=== PATIENT | female | born 1950 | race Caucasian/White ===

== ENCOUNTER 2017-03-27 14:10 | Inpatient (IN) | payer MEDICARE, OTHER, SELFPAY ==
[2017-03-27] VITALS (13 sets, daily range): BP systolic 98–130; BP diastolic 50–73; PULSE 78–97; RESP 14–20; TEMP 36.1–36.9; O2SAT 87–95; BMI 46.0; BMI 46.5
--- NOTE | 2017-03-27 14:21 | RAD_ITS ---
STUDY: X-RAY CHEST REASON FOR EXAM: Female, 66 years old. Shortness of breath. Edema and palpitations. TECHNIQUE: Single AP portable view of the chest. COMPARISON: Comparison is made with prior examination dated December 14, 2016. FINDINGS: EKG electrodes are seen. Gastric congestion and mild CHF. There is no demonstrated pleural abnormality. There is mild cardiac enlargement. Normal mediastinum and deepthi. Normal visualized pulmonary arteries. There is atherosclerotic calcification of the aortic arch with tortuosity. Normal visualized thoracic spine. Normal visualized ribs, clavicles, and shoulders. There is no demonstrated abnormality of the visualized soft tissue structures of the upper abdomen. RAD/Chest 1 View (Portable) IMPRESSION: Mild CHF and cardiomegaly. Electronically Signed: Jonah Conner MD at 14:52 EST Tel [phone], Service support ,
--- NOTE | 2017-03-27 14:21 | EKG12_ITS ---
Test Reason : SOB Blood Pressure : / mmHG Vent. Rate : 082 BPM Atrial Rate : 082 BPM P-R Int : 138 ms QRS Dur : 142 ms QT Int : 426 ms P-R-T Axes : 067 091 017 degrees QTc Int : 497 ms Normal sinus rhythm Right bundle branch block Abnormal ECG Confirmed by ANJANA GAMBOA, CHOLO ([id number]), loan expeditor MONA NGO ([id number] on 03/29/2017 1:12:47 PM Referred By: UGO Confirmed By:CHOLO YEUNG MD
[2017-03-27] MEDS: Ipratropium/Albuterol Sulfate 3 ML AMPUL.NEB INHALATION ×2 (14:44→20:36)
[2017-03-27 15:25] LABS: Absolute Lymphocyte Count 0.51 X10^3/ul (0.83-4.51); Absolute Neutrophil Count 10.1 X10^3/uL (2.0-7.7); Basophil# 0.03 X10^3/uL; Basophil% 0.3 % (0-1); Eosinophil# 0.24 X10^3/uL; Hematocrit 36.1 % (37-47); Hemoglobin 9.5 g/dl (12.0-15.0); Lymphocyte # 0.51 X10^3/ul (4.0); Lymphocyte % 4.3 % (19-41); Mean Corp Hgb Conc 26.3 g/gl (32-36); Mean Corpuscular Hgb 25.3 pg (27.0-32.0); Mean Platelet Vol. 10.1 fl (6.2-12.0); Monocyte# 0.86 X10^3/uL; Monocyte% 7.3 % (0-10); Neutrophil # 10.13 X10^3/uL (2.7-7.7); Neutrophil % 85.8 % (47-70); Platelet Count 377 K/mm3 (150-450); RBC Distribution Width CV 19.3 % (11.6-14.6); RBC Distribution Width SD 67.6 fl (35.1-43.9); Red Blood Count 3.76 M/mm3 (4.2-5.4); White Blood Count 11.8 K/mm3 (4.4-11.0)
[2017-03-27 15:27] LABS: Anion Gap 4 (5-15); BUN 16 mg/dL (7-18); BUN/Creat Ratio 16.2 RATIO (10-20); Calcium,Total 8.7 mg/dL (8.5-10.1); Chloride 92 mmol/L (98-107); Creatinine, Serum 0.99 mg/dL (0.55-1.02); Differential Indicated SCAN CRITERIA MET; EST Glomerular Filtration Rate 59 mL/min (>60); Est Glom Filt Rate - Afr Amer 72 mL/min (>60); Estimated Creatinine Clearance 44.99 ml/min; Glucose 168 mg/dL (70-110); POSITIVE COUNT NO; POSITIVE DIFFERENTIAL YES; POSITIVE MORPHOLOGY YES; Potassium 3.7 mmol/L (3.5-5.1); Sodium Level 138 mmol/L (136-145)
[2017-03-27 15:42] LABS: Differential Comment SCANNED
--- NOTE | 2017-03-27 16:09 | ED.VISSUMM ---
- ER Visit Summary Date of Service: 03/27/17 Chief Complaint: Shortness of breath with a history of both COPD and CHF History of Present Illness: The patient is a 66 F history of COPD and CHF on 4 L nasal cannula O2 at home. She also has a history of aortic stenosis, ivs-clmwxjy-jljuowzdo diabetes, hypertension, chronic anemia and prior AVM causing GI bleed with multiple transfusions. He denies any fever, significant or new cough. She denies any chest pain or hemoptysis. States she has had worsening shortness of breath over the last 3+ days. Physical Examination: Older female obviously short of breath. Vital signs are stable except for a pulse ox of 87% on a chronic 4 L. She is obviously hypoxic. HEENT exam unremarkable. Neck nontender no JVD. Lungs coarse breath sounds few scattered wheezes. No rhonchi. Equal symmetrical. Prolonged expiratory phase. Heart regular rhythm rate in the 80s with a 4/6 systolic ejection murmur which is chronic from a known history of aortic stenosis. Abdomen is soft and nontender. Normal bowel sounds without any peritoneal signs. She is moving all 4 extremities. She has 1+ pitting edema both lower extremities. Calves are nontender. Neurologically she is awake alert without focal motor deficits. Test Results: Chest x-ray shows cardiomegaly and vascular congestion consistent with CHF. EKG is a sinus rhythm rate 82 no acute process with a right bundle branch block. White count 11.8. H&H 9.5 and 36 which is her baseline chronic anemia. Electrolytes unremarkable with a creatinine is 0.9 and a gap of 4. Troponin 0 0.066 and the BNP is only 81.. Emergency Department Course and Treatment: Patient treated with DuoNeb aerosol and will be given IV Lasix. He is she is clinically stable at 1605. I have already spoken to Dr. Mckeon the hospitalist who will be down to evaluate the patient for admission. Treatment Plan: [] Disposition: Admission Impression: Acute dyspnea secondary exacerbation COPD History of aortic stenosis with hx of CHF History of diabetes Chronic anemia. This note was generated with [employer] dictation software. It may contain incorrect words, spelling, and punctuation that were not noted in review of the chart prior to signing ED Disposition - Plan for ED Patient: Chief Complaint: Shortness of Breath Referrals: Vic Chen MD [Primary Care Provider] -
--- NOTE | 2017-03-27 16:17 | ED.DCSUM_ITS ---
- ER Visit Summary Date of Service: 03/27/17 Chief Complaint: Shortness of breath with a history of both COPD and CHF History of Present Illness: The patient is a 66 F history of COPD and CHF on 4 L nasal cannula O2 at home. She also has a history of aortic stenosis, non- insulin-dependent diabetes, hypertension, chronic anemia and prior AVM causing GI bleed with multiple transfusions. He denies any fever, significant or new cough. She denies any chest pain or hemoptysis. States she has had worsening shortness of breath over the last 3+ days. Physical Examination: Older female obviously short of breath. Vital signs are stable except for a pulse ox of 87% on a chronic 4 L. She is obviously hypoxic. HEENT exam unremarkable. Neck nontender no JVD. Lungs coarse breath sounds few scattered wheezes. No rhonchi. Equal symmetrical. Prolonged expiratory phase. Heart regular rhythm rate in the 80s with a 4/6 systolic ejection murmur which is chronic from a known history of aortic stenosis. Abdomen is soft and nontender. Normal bowel sounds without any peritoneal signs. She is moving all 4 extremities. She has 1+ pitting edema both lower extremities. Calves are nontender. Neurologically she is awake alert without focal motor deficits. Test Results: Chest x-ray shows cardiomegaly and vascular congestion consistent with CHF. EKG is a sinus rhythm rate 82 no acute process with a right bundle branch block. White count 11.8. H&H 9.5 and 36 which is her baseline chronic anemia. Electrolytes unremarkable with a creatinine is 0.9 and a gap of 4. Troponin 0 0.066 and the BNP is only 81.. Emergency Department Course and Treatment: Patient treated with DuoNeb aerosol and will be given IV Lasix. He is she is clinically stable at 1605. I have already spoken to Dr. Mckeon the hospitalist who will be down to evaluate the patient for admission. Treatment Plan: [] Disposition: Admission Impression: Acute dyspnea secondary exacerbation COPD History of aortic stenosis with hx of CHF History of diabetes Chronic anemia. This note was generated with [employer] dictation software. It may contain incorrect words, spelling, and punctuation that were not noted in review of the chart prior to signing ED Disposition - Plan for ED Patient: Chief Complaint: Shortness of Breath Referrals: Vic Chen MD [Primary Care Provider] -
--- NOTE | 2017-03-27 16:31 | PCM.HP.STD ---
Problem List (1) COPD with acute exacerbation Status: Acute (2) Aortic stenosis Status: Chronic Comment: Moderate to severe with valve area 1.1 on cardiac catheterization in 2013 (3) CHF (congestive heart failure) Status: Acute Qualifiers: Congestive heart failure type: diastolic (4) Chronic hypoxemic respiratory failure Status: Chronic (5) Diabetes mellitus type II Status: Chronic (6) HLD (hyperlipidemia) Status: Chronic (7) Hypertension Status: Chronic History of Present Illness Date of Admission: 03/27/17 Chief Complaint: sob The patient is a 66 year old F who presents to the ER from the pulmonary office where she saw the LUCERNE FARMER today as she was feeling more SOB. She reports feeling more SOB and generally unwell for about 3 days. This is severely worse with exertion, for example trying to walk out to her car. She has a hx of diastolic CHF, COPD, chronic hypoxic respiratory failure dependent on 4 lpm at home with BiPAP at night, pulmonary HTN, aortic stenosis, and diabetes. She is very SOB when trying to lay flat. She reports intermittent compliance with BiPAP. She has an occasional cough with clear sputum production. She reports her leg swelling is about what it normally is, and her weight is actually down 8 pounds over the last 3 weeks due to poor appetite and some diarrhea recently. She denies fevers or chills. She denies chest pain, tightness, or pressure. She had some lightheadedness yesterday, and has had palpitations recently. Her area relief pilot is Dr. Dixon, her settlement technician is Dr. Xavier. She reports compliance with her current medication regimen. [] Past Medical History Past Medical History (Chronic Problems): Chronic Problems (Last Reviewed 03/27/17 @ 13:21 by Alejandra Frausto) Nonrheumatic aortic (valve) stenosis (Chronic) Left atrial enlargement (Chronic) Hypersomnia (Chronic) Anemia (Chronic) Palpitations (Chronic) Carotid artery stenosis (Chronic) Lumbago (Chronic) Chronic hypoxemic respiratory failure (Chronic) Pulmonary fibrosis (Chronic) 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 3 severe COPD by GOLD classification (Chronic) Aortic stenosis (Chronic) Moderate to severe with valve area 1.1 on cardiac catheterization in 2013 COPD (Chronic) Diabetes mellitus type II (Chronic) History of GI bleeding (Chronic) Status post EGD and colonoscopy by Dr. Blackmon in 2012, suspected AV malformations Pulmonary hypertension (Chronic) With PA pressures 55 by cardiac catheterization Hypoxemia (Chronic) Hypertension (Chronic) HLD (hyperlipidemia) (Chronic) 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) Allergies No Known Allergies Allergy (Verified 03/27/17 14:13) Home Medications: Ambulatory Orders Medication Instructions Recorded Metformin HCl [Glucophage] 1,000 mg PO BIDCM 01/15/14 Simvastatin [Zocor] 20 mg PO QHS 01/15/14 Ferrous Sulfate 325 mg PO BID 04/09/14 Symbicort 160/4.5 Mcg Inhaler (SP) 2 puff INHALATION BID 12/01/14 Escitalopram Oxalate [Lexapro] 10 mg PO DAILY 06/29/15 Metoprolol Tartrate [Lopressor 50 mg PO BID 06/29/15 (beta lorena)] Trazodone HCl [Desyrel] 100 mg PO QHS PRN PRN 06/29/15 Albuterol Inhaler [Ventolin Hfa] 2 puff INHALATION Q4H PRN PRN #2 10/02/15 inhaler Furosemide [Lasix] 80 mg PO BID 05/27/16 Surgical History: herniorrhaphy, hysterectomy, - Psychiatric History: No pertinent psych hx PLANT PACKER History: No pertinent PLANT PACKER history Lives: Spouse/ Significant Other Smoking Status: Former smoker - quit three months ago Tobacco Use: Non-smoker Alcohol: None Drugs: None - *Family History Paternal Family History: Family History (Last Reviewed 03/27/17 @ 13:21 by Alejandra Frausto) Mother Heart disease Father CAD (coronary artery disease) Hypertension Brother Hypertension History Items: Heart Disease Maternal Family History: Family History (Last Reviewed 03/27/17 @ 13:21 by Alejandra Frausto) Mother Heart disease Father CAD (coronary artery disease) Hypertension Brother Hypertension History Items: Heart Disease Review of Systems Constitutional: Reports: Malaise. Denies: Chills, Fever, Weight Change HEENT: Denies: Head Aches, Sinus Congestion, Sinus Drainage Cardiovascular: Reports: Edema, Light Headedness, Orthopnea, Palpitations. Denies: Chest Pain, Chest Pressure, Chest Tightness, Heaviness Respiratory: Reports: Cough, Shortness of Breath, Shortness of breath at rest, Shortness of breath upon exertion, Sputum production. Denies: Hemoptysis, Pleuritic Pain, Wheezing Gastrointestinal: Reports: Diarrhea. Denies: Abdominal Pain, Nausea, Vomiting Genitourinary: Denies: Dysuria Musculoskeletal: Denies: Joint Pain, Joint Tenderness Skin: Denies: Rash, Wounds Neurological: Denies: Numbness, Tingling, Focal weakness Psychiatric: Denies: Anxiety, Depression, Homicidal Ideations, Suicidal Ideations Hematologic/ Lymphatic: Denies: Easy Bruising, Easy Bleeding VTE Information - Inpt Only VTE Present on Admission: No VTE Mechan Device Prophylaxis: SCD's VTE Pharm Prophylaxis ordered?: Yes Patient Problems: Active and Suspected Problems (Last Reviewed 03/27/17 @ 13:21 by Alejandra Frausto) COPD with acute exacerbation (Acute) - Physical Exam General: Alert, Oriented x3, Cooperative HEENT: Atraumatic, PERRLA, EOMI, Normocephalic Neck: Supple, No JVD, Negative Carotid Bruits Lungs: Diminished - severely diminished, i do not appreciate any adventitious sounds at this time. Cardiovascular: Regular rate, Murmur - 3/6 systolic murmur best heard over the LSB at the 2nd intercostal space Abdomen: Bowel Sounds Present, Soft, Non Tender Extremities: Capillary Refill Less than 3 Seconds, Edema - 2+ pitting edema BLE up to knees. Skin: No rashes, No breakdown Musculoskeletal: No Tenderness to Palpation of Joints or Extremities Neurological: Cranial nerves II-XII grossly intact Psych/Mental Status: Normal Affect, Appropriate Vital Signs Temp Pulse Resp BP Pulse Ox 97 F L 82 18 130/65 H 93 03/27/17 14:11 03/27/17 14:46 03/27/17 14:46 03/27/17 14:11 03/27/17 15:02 Oxygen Flow Rate 4 Oxygen Delivery Method Nasal Cannula Weight: 117.934 kg Body Mass Index (BMI) 46.0 Laboratory Tests Past 24 Hrs 03/27/17 03/27/17 03/27/17 14:55 14:55 14:55 WBC 11.8 H RBC 3.76 L Hgb 9.5 L Hct 36.1 L MCV 96.0 MCH 25.3 L MCHC 26.3 L RDW 19.3 H RDW Differential 67.6 H Plt Count 377 MPV 10.1 Immature Gran % (Auto) 0.300 Neut % (Auto) 85.8 H Lymph % (Auto) 4.3 L [place] % (Auto) 7.3 Eos % (Auto) 2.0 Baso % (Auto) 0.3 Absolute Neuts (auto) 10.1 H Absolute Lymphs (auto) 0.51 L Total Counted Not Reportable Differential Comment SCANNED Sodium 138 Potassium 3.7 Chloride 92 L Carbon Dioxide 42.0 H Anion Gap 4 L BUN 16 Creatinine 0.99 Estim Creat Clear Calc 44.99 Est GFR (MDRD) Af Amer 72 Est GFR (MDRD) Non-Af 59 L BUN/Creatinine Ratio 16.2 Glucose 168 H Calcium 8.7 Troponin I 0.066 H B-Natriuretic Peptide 81.0 Assessment/Plan Active and Suspected Problems (Last Reviewed 03/27/17 @ 13:21 by Alejandra Frausto) COPD with acute exacerbation (Acute) 1. Acute on chronic COPD exacerbation with chronic hypoxic respiratory failure - dependent on 4 lpm. Continue BiPAP at night. Solumedrol. Duonebs. IS. Pulm consult. Mild leukocytosis but I doubt infectious etiology - rare cough with some clear sputum, no fever.. CXR shows CHF/cardiomegaly. She also has underlying pulmonary HTN. 2. Chronic diastolic CHF - BNP normal. She is swollen, will use IV lasix tonight. + Orthopnea. Weight is actually down 8 pounds over last 3 weeks. Last echo 06/2016 with EF 70%, diastolic dysfunction, RVSP 61 mmHg 3. Indeterminate troponin - cycle enzymes, repeat EKG in AM. EKG with NSR and RBBB 4. DMt2 - hold orals and add sliding scale insulin 5. HTN - stable 6. Mod-severe aortic stenosis - follows Dr. Xavier and a surgeon at [facility] for this, has been told she is not ready for surgery. 7. HLD - statin 8. Chronic normocytic anemia - trend. Continue PO iron. 9. Anxiety - trazodone and lexapro DVT ppx: lovenox This patient was seen by Shemar Butcher PA-C under the supervision of Doctor Mckeon.
--- NOTE | 2017-03-27 16:46 | HP.PCM_ITS ---
Addendum entered and electronically signed by KAILASH Ortega 03/27/17 16:53: Code Visit Problem list item #1 Acute Cor pulmonale. Original Note: Problem List (1) COPD with acute exacerbation Status: Acute (2) Aortic stenosis Status: Chronic Comment: Moderate to severe with valve area 1.1 on cardiac catheterization in 2013 (3) CHF (congestive heart failure) Status: Acute Qualifiers: Congestive heart failure type: diastolic (4) Chronic hypoxemic respiratory failure Status: Chronic (5) Diabetes mellitus type II Status: Chronic (6) HLD (hyperlipidemia) Status: Chronic (7) Hypertension Status: Chronic History of Present Illness Date of Admission: 03/27/17 Chief Complaint: sob The patient is a 66 year old F who presents to the ER from the pulmonary office where she saw the SHOT POLISHER AND INSPECTOR today as she was feeling more SOB. She reports feeling more SOB and generally unwell for about 3 days. This is severely worse with exertion, for example trying to walk out to her car. She has a hx of diastolic CHF, COPD, chronic hypoxic respiratory failure dependent on 4 lpm at home with BiPAP at night, pulmonary HTN, aortic stenosis, and diabetes. She is very SOB when trying to lay flat. She reports intermittent compliance with BiPAP. She has an occasional cough with clear sputum production. She reports her leg swelling is about what it normally is, and her weight is actually down 8 pounds over the last 3 weeks due to poor appetite and some diarrhea recently. She denies fevers or chills. She denies chest pain, tightness, or pressure. She had some lightheadedness yesterday, and has had palpitations recently. Her associate trainer is Dr. Dixon, her wine steward is Dr. Xavier. She reports compliance with her current medication regimen. [] Past Medical History Past Medical History (Chronic Problems): Chronic Problems (Last Reviewed 03/27/17 @ 13:21 by Alejandra Frausto) Nonrheumatic aortic (valve) stenosis (Chronic) Left atrial enlargement (Chronic) Hypersomnia (Chronic) Anemia (Chronic) Palpitations (Chronic) Carotid artery stenosis (Chronic) Lumbago (Chronic) Chronic hypoxemic respiratory failure (Chronic) Pulmonary fibrosis (Chronic) 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 3 severe COPD by GOLD classification (Chronic) Aortic stenosis (Chronic) Moderate to severe with valve area 1.1 on cardiac catheterization in 2013 COPD (Chronic) Diabetes mellitus type II (Chronic) History of GI bleeding (Chronic) Status post EGD and colonoscopy by Dr. Blackmon in 2011, suspected AV malformations Pulmonary hypertension (Chronic) With PA pressures 55 by cardiac catheterization Hypoxemia (Chronic) Hypertension (Chronic) HLD (hyperlipidemia) (Chronic) 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) Allergies No Known Allergies Allergy (Verified 03/27/17 14:13) Home Medications: Ambulatory Orders Medication Instructions Recorded Metformin HCl [Glucophage] 1,000 mg PO BIDCM 01/15/14 Simvastatin [Zocor] 20 mg PO QHS 01/15/14 Ferrous Sulfate 325 mg PO BID 04/09/14 Symbicort 160/4.5 Mcg Inhaler (SP) 2 puff INHALATION BID 12/01/14 Escitalopram Oxalate [Lexapro] 10 mg PO DAILY 06/29/15 Metoprolol Tartrate [Lopressor 50 mg PO BID 06/29/15 (beta lorena)] Trazodone HCl [Desyrel] 100 mg PO QHS PRN PRN 06/29/15 Albuterol Inhaler [Ventolin Hfa] 2 puff INHALATION Q4H PRN PRN #2 10/02/15 inhaler Furosemide [Lasix] 80 mg PO BID 05/27/16 Surgical History: herniorrhaphy, hysterectomy, - Psychiatric History: No pertinent psych hx AIR QUALITY TECHNICIAN History: No pertinent AIR QUALITY TECHNICIAN history Lives: Spouse/ Significant Other Smoking Status: Former smoker - quit three months ago Tobacco Use: Non-smoker Alcohol: None Drugs: None - *Family History Paternal Family History: Family History (Last Reviewed 03/27/17 @ 13:21 by Alejandra Frausto) Mother Heart disease Father CAD (coronary artery disease) Hypertension Brother Hypertension History Items: Heart Disease Maternal Family History: Family History (Last Reviewed 03/27/17 @ 13:21 by Alejandra Frausto) Mother Heart disease Father CAD (coronary artery disease) Hypertension Brother Hypertension History Items: Heart Disease Review of Systems Constitutional: Reports: Malaise. Denies: Chills, Fever, Weight Change HEENT: Denies: Head Aches, Sinus Congestion, Sinus Drainage Cardiovascular: Reports: Edema, Light Headedness, Orthopnea, Palpitations. Denies: Chest Pain, Chest Pressure, Chest Tightness, Heaviness Respiratory: Reports: Cough, Shortness of Breath, Shortness of breath at rest, Shortness of breath upon exertion, Sputum production. Denies: Hemoptysis, Pleuritic Pain, Wheezing Gastrointestinal: Reports: Diarrhea. Denies: Abdominal Pain, Nausea, Vomiting Genitourinary: Denies: Dysuria Musculoskeletal: Denies: Joint Pain, Joint Tenderness Skin: Denies: Rash, Wounds Neurological: Denies: Numbness, Tingling, Focal weakness Psychiatric: Denies: Anxiety, Depression, Homicidal Ideations, Suicidal Ideations Hematologic/ Lymphatic: Denies: Easy Bruising, Easy Bleeding VTE Information - Inpt Only VTE Present on Admission: No VTE Mechan Device Prophylaxis: SCD's VTE Pharm Prophylaxis ordered?: Yes Patient Problems: Active and Suspected Problems (Last Reviewed 03/27/17 @ 13:21 by Alejandra Frausto ) COPD with acute exacerbation (Acute) - Physical Exam General: Alert, Oriented x3, Cooperative HEENT: Atraumatic, PERRLA, EOMI, Normocephalic Neck: Supple, No JVD, Negative Carotid Bruits Lungs: Diminished - severely diminished, i do not appreciate any adventitious sounds at this time. Cardiovascular: Regular rate, Murmur - 3/6 systolic murmur best heard over the LSB at the 2nd intercostal space Abdomen: Bowel Sounds Present, Soft, Non Tender Extremities: Capillary Refill Less than 3 Seconds, Edema - 2+ pitting edema BLE up to knees. Skin: No rashes, No breakdown Musculoskeletal: No Tenderness to Palpation of Joints or Extremities Neurological: Cranial nerves II-XII grossly intact Psych/Mental Status: Normal Affect, Appropriate Vital Signs Temp Pulse Resp BP Pulse Ox 97 F L 82 18 130/65 H 93 03/27/17 14:11 03/27/17 14:46 03/27/17 14:46 03/27/17 14:11 03/27/17 15:02 Oxygen Flow Rate 4 Oxygen Delivery Method Nasal Cannula Weight: 117.934 kg Body Mass Index (BMI) 46.0 Laboratory Tests Past 24 Hrs 03/27/17 03/27/17 03/27/17 14:55 14:55 14:55 WBC 11.8 H RBC 3.76 L Hgb 9.5 L Hct 36.1 L MCV 96.0 MCH 25.3 L MCHC 26.3 L RDW 19.3 H RDW Differential 67.6 H Plt Count 377 MPV 10.1 Immature Gran % (Auto) 0.300 Neut % (Auto) 85.8 H Lymph % (Auto) 4.3 L [place] % (Auto) 7.3 Eos % (Auto) 2.0 Baso % (Auto) 0.3 Absolute Neuts (auto) 10.1 H Absolute Lymphs (auto) 0.51 L Total Counted Not Reportable Differential Comment SCANNED Sodium 138 Potassium 3.7 Chloride 92 L Carbon Dioxide 42.0 H Anion Gap 4 L BUN 16 Creatinine 0.99 Estim Creat Clear Calc 44.99 Est GFR (MDRD) Af Amer 72 Est GFR (MDRD) Non-Af 59 L BUN/Creatinine Ratio 16.2 Glucose 168 H Calcium 8.7 Troponin I 0.066 H B-Natriuretic Peptide 81.0 Assessment/Plan Active and Suspected Problems (Last Reviewed 03/27/17 @ 13:21 by Alejandra Frausto ) COPD with acute exacerbation (Acute) 1. Acute on chronic COPD exacerbation with chronic hypoxic respiratory failure - dependent on 4 lpm. Continue BiPAP at night. Solumedrol. Duonebs. IS. Pulm consult. Mild leukocytosis but I doubt infectious etiology - rare cough with some clear sputum, no fever.. CXR shows CHF/cardiomegaly. She also has underlying pulmonary HTN. 2. Chronic diastolic CHF - BNP normal. She is swollen, will use IV lasix tonight. + Orthopnea. Weight is actually down 8 pounds over last 3 weeks. Last echo 06/2016 with EF 70%, diastolic dysfunction, RVSP 61 mmHg 3. Indeterminate troponin - cycle enzymes, repeat EKG in AM. EKG with NSR and RBBB 4. DMt2 - hold orals and add sliding scale insulin 5. HTN - stable 6. Mod-severe aortic stenosis - follows Dr. Xavier and a surgeon at [facility] for this, has been told she is not ready for surgery. 7. HLD - statin 8. Chronic normocytic anemia - trend. Continue PO iron. 9. Anxiety - trazodone and lexapro DVT ppx: lovenox This patient was seen by Shemar Butcher PA-C under the supervision of Doctor Mckeon.
[2017-03-27] MEDS: Furosemide 40 MG/4 ML Vial IV (18:34)
[2017-03-27] MEDS: metFORMIN HCl 1,000 MG Tablet 1000 MG PO (18:34)
[2017-03-27] MEDS: Metoprolol Tartrate 50 MG Tablet PO (22:39)
[2017-03-27] MEDS: Ferrous Sulfate 325 MG Tablet PO (22:41)
[2017-03-27] MEDS: Heparin Injection 5,000 UNITS/ML Syringe 5000 UNITS SC (22:41)
[2017-03-27] MEDS: Atorvastatin Calcium 10 MG Tablet PO (22:42)
[2017-03-27 22:56] LABS: Bedside Glucose 192 mg/dL (70-110)
[2017-03-28] VITALS (19 sets, daily range): BP systolic 114–126; BP diastolic 50–59; PULSE 74–93; RESP 16–21; TEMP 36.5–37.1; O2SAT 85–93
[2017-03-28] MEDS: Heparin Injection 5,000 UNITS/ML Syringe 5000 UNITS SC ×3 (06:33→21:22)
[2017-03-28 06:46] LABS: Bedside Glucose 210 mg/dL (70-110)
[2017-03-28] MEDS: Ipratropium/Albuterol Sulfate 3 ML AMPUL.NEB INHALATION ×4 (06:54→19:02)
[2017-03-28 07:07] LABS: Anion Gap 6 (5-15); BUN 22 mg/dL (7-18); BUN/Creat Ratio 21.6 RATIO (10-20); Calcium,Total 8.7 mg/dL (8.5-10.1); Chloride 92 mmol/L (98-107); Creatinine, Serum 1.02 mg/dL (0.55-1.02); EST Glomerular Filtration Rate 57 mL/min (>60); Est Glom Filt Rate - Afr Amer 69 mL/min (>60); Estimated Creatinine Clearance 41.75 ml/min; Glucose 225 mg/dL (70-110); Potassium 4.7 mmol/L (3.5-5.1); Sodium Level 136 mmol/L (136-145)
[2017-03-28] MEDS: Ferrous Sulfate 325 MG Tablet PO ×2 (08:43→17:17)
[2017-03-28] MEDS: metFORMIN HCl 1,000 MG Tablet 1000 MG PO ×2 (08:43→17:17)
--- NOTE | 2017-03-28 10:12 | PCM.CONS.GEN ---
Problem List (1) Acute on chronic respiratory failure with hypoxia and hypercapnia Status: Acute (2) Pulmonary fibrosis Status: Chronic (3) Pulmonary hypertension Status: Chronic Comment: With PA pressures 55 by cardiac catheterization (4) Nonrheumatic aortic (valve) stenosis Status: Chronic (5) Left atrial enlargement Status: Chronic (6) Hypersomnia Status: Chronic (7) Anemia Status: Chronic (8) CVA (cerebral vascular accident) Status: Acute (9) Carotid artery stenosis Status: Chronic (10) Lumbago Status: Chronic (11) Chronic hypoxemic respiratory failure Status: Chronic (12) Tobacco dependence in remission Status: Chronic (13) Aortic stenosis Status: Chronic Comment: Moderate to severe with valve area 1.1 on cardiac catheterization in 2013 (14) COPD Status: Chronic (15) Diabetes mellitus type II Status: Chronic (16) CHF (congestive heart failure) Status: Acute Qualifiers: Congestive heart failure type: diastolic (17) Hypertension Status: Chronic (18) HLD (hyperlipidemia) Status: Chronic (19) GI AVM (gastrointestinal arteriovenous vascular malformation) Status: Chronic Reason for Consult Date of Consultation: 03/28/17 Reason for Consultation: COPD exacerbation History of Present Illness: The patient is a 66 year old F with a past medical history as below who was seen in the pulmonary clinic for her 6 week follow-up visit by Angeline Acosta NP, with complaints of dyspnea and general ill-feeling for a few days. Patient complained of her BiPAP alarm going off constantly the night before her OV. She complained of dyspnea on exertion, chest tightness, palpitations, rhinorrhea with clear drainage, and nasal congestion. She also complained of increased lower extremity edema and difficulty in getting her shoes on. She takes 40 mg of Lasix twice daily. She was saturating 81-89% on 4 L of oxygen, which is her baseline oxygen requirements. Was discussed possibly treating her at home for COPD exacerbation, however patient was very unsure about this and wanted to be admitted to the hospital. The patient does have a history of aortic stenosis and is being evaluated for repair. She follows with Dr. Xavier and a surgeon in [place]. Workup in the emergency room included a chest x-ray which showed mild CHF and cardiomegaly but no pleural abnormality. Initial lab work showed a mild leukocytosis of 11,800, hemoglobin 9.5 which is her baseline. Neutrophils were 85% and lymphocytes 4.3%. Chloride 92 and serum bicarb 42.0. Glucose was 168 and troponin was indeterminate. BNP was normal at 81. Vital signs were BP 130/65, pulse 82, RR 14, 87% on 4 L, afebrile at 97.0?F. EKG showed sinus rhythm with a rate of 82 bpm, right bundle branch block which was not new. Patient was given a DuoNeb aerosol and IV Lasix. Patient's only complaint on the day of consultation was dyspnea on exertion and palpitations. Patient states she feels fine when she is just sitting in the chair, however feels like she cannot do anything without becoming very short of breath. She is frustrated and is unable to leave her home very often anymore. Patient reports there has been discussion about fixing her aortic valve/stenosis, but her doctors do not feel she is stable enough at this time to do so. Her upper respiratory symptoms such as rhinorrhea has resolved. Denies any increase in cough or sputum production. Past Medical History Past Medical History (Chronic Problems): Chronic Problems (Last Reviewed 03/27/17 @ 13:21 by Alejandra Frausto) Nonrheumatic aortic (valve) stenosis (Chronic) Left atrial enlargement (Chronic) Hypersomnia (Chronic) Anemia (Chronic) Palpitations (Chronic) Carotid artery stenosis (Chronic) Lumbago (Chronic) Chronic hypoxemic respiratory failure (Chronic) Pulmonary fibrosis (Chronic) 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 3 severe COPD by GOLD classification (Chronic) Aortic stenosis (Chronic) Moderate to severe with valve area 1.1 on cardiac catheterization in 2013 COPD (Chronic) Diabetes mellitus type II (Chronic) History of GI bleeding (Chronic) Status post EGD and colonoscopy by Dr. Blackmon in 2011, suspected AV malformations Pulmonary hypertension (Chronic) With PA pressures 55 by cardiac catheterization Hypoxemia (Chronic) Hypertension (Chronic) HLD (hyperlipidemia) (Chronic) 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) Allergies No Known Allergies Allergy (Verified 03/27/17 14:13) Home Medications: Ambulatory Orders Medication Instructions Recorded Metformin HCl [Glucophage] 1,000 mg PO BIDCM 01/15/14 Simvastatin [Zocor] 20 mg PO QHS 01/15/14 Ferrous Sulfate 325 mg PO BID 04/09/14 Escitalopram Oxalate [Lexapro] 10 mg PO DAILY 06/29/15 Metoprolol Tartrate [Lopressor 50 mg PO BID 06/29/15 (beta lorena)] Trazodone HCl [Desyrel] 100 mg PO QHS PRN PRN 06/29/15 Albuterol Inhaler [Ventolin Hfa] 2 puff INHALATION Q4H PRN PRN #2 10/02/15 inhaler Furosemide [Lasix] 80 mg PO BID 05/27/16 Budesonide/Formoterol Fumarate 2 puff IH BID 03/27/17 [Symbicort 160-4.5 Mcg Inhaler] Surgical History: herniorrhaphy, hysterectomy, - Psychiatric History: No pertinent psych hx MEDICAL DOCTOR History: No pertinent MEDICAL DOCTOR history Lives: Spouse/ Significant Other Smoking Status: Former smoker Tobacco Use: Non-smoker Alcohol: None Drugs: None - *Family History Paternal Family History: Family History (Last Reviewed 03/27/17 @ 13:21 by Alejandra Frausto) Mother Heart disease Father CAD (coronary artery disease) Hypertension Brother Hypertension History Items: Heart Disease Maternal Family History: Family History (Last Reviewed 03/27/17 @ 13:21 by Alejandra Frausto) Mother Heart disease Father CAD (coronary artery disease) Hypertension Brother Hypertension History Items: Heart Disease Review of Systems Constitutional: Reports: Fatigue. Denies: Anorexia, Chills, Fever, Night Sweats, Malaise, Weakness HEENT: Reports: Post Nasal Drip, - - Rhinorrhea resolved. Phlegm in my throat. Denies: Difficulty Swallowing, Head Aches, Nasal Congestion, Sinus Congestion, Sinus Drainage, Sore Throat Cardiovascular: Reports: Edema, Orthopnea, Palpitations. Denies: Chest Pain, Chest Pressure, Light Headedness, Paroxysmal Noc. Dyspnea, Syncope Respiratory: Reports: Cough, Shortness of breath upon exertion, Sputum production - Minimal. Denies: Hemoptysis, Shortness of breath at rest, Wheezing Gastrointestinal: Denies: Abdominal Pain, Constipation, Diarrhea, Dyspepsia, Hematemesis, Hematochezia, Nausea, Melena, Vomiting Genitourinary: Denies: Dysuria, Frequency, Hematuria, Retention Musculoskeletal: Denies: Back Pain, Muscle pain Skin: Denies: Dryness, Rash, Wounds Neurological: Denies: Balance problems, Change in Speech, Confusion, Difficulty swallowing, Focal weakness, Numbness, Tingling, Tremor, Seizures Psychiatric: Reports: Anxiety. Denies: Depression Endocrine: Denies: Change in Body Habitus, Polydipsia, Polyuria Hematologic/ Lymphatic: Reports: Anemia, Easy Bruising, Easy Bleeding. Denies: Adenopathy, Hx of blood clot Patient Problems: Active and Suspected Problems (Last Reviewed 03/27/17 @ 13:21 by Alejandra Frausto) COPD with acute exacerbation (Acute) Subjective: Patient was seen and examined. She is sitting up in the chair in no acute distress. Reports she is feeling better, however dyspnea on exertion persists. She blames it on her palpitations with activity. She voices frustration over her activity intolerance. States her concentrator only goes up to 4 L and believe she needs more with activity at home. She checks her pulse oximetry at home. Objective: Clinical Impression(s) from Imaging Studies Chest X-Ray 03/27/17 14:21 IMPRESSION: Mild CHF and cardiomegaly. Electronically Signed: Jonah Conner MD at 14:52 EST Tel [phone], Service support , - Physical Exam General: Alert, Oriented x3, Cooperative, No apparent distress, Well developed, Well nourished, - - No conversational dyspnea HEENT: Atraumatic, Normocephalic Oral: Moist Mucosa, No Gingival or Mucosal Lesions/ Ulcerations Neck: Supple, No Nodes, Trachea Midline Lungs: No rhonchi, No rales, Diminished, - - Faint expiratory wheeze Cardiovascular: Regular rate, Regular Rhythm, Normal S1, Normal S2, Murmur - AYUSH, No rub noted, No Gallop Abdomen: Bowel Sounds Present, Soft, Non Tender, Non-Distended, Obese Extremities: No cyanosis, No Calf Tenderness, Edema - 2-3+ LE Skin: No rashes, No breakdown Musculoskeletal: No Tenderness to Palpation of Joints or Extremities Lymphatic: No Cervical, Supraclavicular, or Inguinal Adenopathy Neurological: Cranial nerves II-XII grossly intact, Neuro grossly intact, Motor Exam 5/5 strength throughout Psych/Mental Status: Alert and oriented to time, place, person, mood and affect Vital Signs Temp Pulse Resp BP Pulse Ox 97.7 F L 88 16 126/57 H 93 03/28/17 03:53 03/28/17 07:00 03/28/17 08:00 03/28/17 03:53 03/28/17 07:28 Oxygen Flow Rate 4 Oxygen Delivery Method Nasal Cannula Weight: 260 lb 2.327 oz Body Mass Index (BMI) 46.5 Intake and Output for Last 24 Hours 03/26/17 03/27/17 03/28/17 23:59 23:59 23:59 Intake Total 705 / 705 Balance 705 / 705 Laboratory Tests Past 24 Hrs 03/27/17 03/28/17 18:39 06:05 Sodium 136 Potassium 4.7 Chloride 92 L Carbon Dioxide 38.0 H Anion Gap 6 BUN 22 H Creatinine 1.02 Estim Creat Clear Calc 41.75 Est GFR (MDRD) Af Amer 69 Est GFR (MDRD) Non-Af 57 L BUN/Creatinine Ratio 21.6 H Glucose 225 H Calcium 8.7 Troponin I 0.057 H POC Glucose 03/28/17 03/27/17 06:40 22:39 POC Glucose 210 H 192 H Assessment/Plan Active and Suspected Problems (Last Reviewed 03/27/17 @ 13:21 by Alejandra Frausto) COPD with acute exacerbation (Acute) RECOMMENDATIONS 1. Wean oxygen supplementation to keep saturations 88-92%. 2. Encourage incentive spirometer 3. Increase activity as tolerated 4. Continue aerosols 5. Continue oral steroids 6. Ambulatory pulse oximetry today 7. Patient can follow-up in pulmonary clinic in 2 weeks IMPRESSIONS 1. Acute on chronic hypoxic and hypercapnic respiratory failure Patient has baseline oxygen requirement of 4 L per nasal cannula. She is complaining of worsening dyspnea on exertion and palpitations, orthopnea. Her concentrator only goes up to 4 L at home. She voices frustration over her poor activity tolerance. She checks her pulse oximetry and desaturates with any exertion on her 4 L. Chest x-ray was read as mild CHF, BNP was normal. Suspect cor pulmonale, patient had improvement after IV Lasix. Patient does have pulmonary hypertension and diastolic CHF, however does not appear to be an exacerbation at this time. She has moderate to severe aortic stenosis which complicates her course. She feels she is at her baseline overall. Recommend obtaining ambulatory pulse oximetry as I suspect patient has increased oxygen needs with exertion. Her concentrator will need to be changed to higher flow on discharge through her DME if this is the case. 2. COPD exacerbation Suspect this is not a COPD exacerbation, but more related to cor pulmonale. Does not appear to be infectious, afebrile. She is on oral steroids, can resume taper upon discharge. She is on her baseline of 4 L. See #1. 3. Moderate to severe aortic stenosis/hypertension/DM/chronic diastolic CHF/hyperlipidemia/anemia/anxiety Locates care, management, recovery, and prognosis. Management per hospitalist, okay to continue home meds. Patient likely okay to be discharged later today after ambulatory pulse ox. Thank you for the opportunity to participate in this patient's care, please do not hesitate to contact us with any further questions or concerns. This note was generated with [employer] dictation software. It may contain incorrect words, spelling, and punctuation that were not noted in checking the note before signing.
--- NOTE | 2017-03-28 10:26 | CON.PCM_ITS ---
Problem List (1) Acute on chronic respiratory failure with hypoxia and hypercapnia Status: Acute (2) Pulmonary fibrosis Status: Chronic (3) Pulmonary hypertension Status: Chronic Comment: With PA pressures 55 by cardiac catheterization (4) Nonrheumatic aortic (valve) stenosis Status: Chronic (5) Left atrial enlargement Status: Chronic (6) Hypersomnia Status: Chronic (7) Anemia Status: Chronic (8) CVA (cerebral vascular accident) Status: Acute (9) Carotid artery stenosis Status: Chronic (10) Lumbago Status: Chronic (11) Chronic hypoxemic respiratory failure Status: Chronic (12) Tobacco dependence in remission Status: Chronic (13) Aortic stenosis Status: Chronic Comment: Moderate to severe with valve area 1.1 on cardiac catheterization in 2013 (14) COPD Status: Chronic (15) Diabetes mellitus type II Status: Chronic (16) CHF (congestive heart failure) Status: Acute Qualifiers: Congestive heart failure type: diastolic (17) Hypertension Status: Chronic (18) HLD (hyperlipidemia) Status: Chronic (19) GI AVM (gastrointestinal arteriovenous vascular malformation) Status: Chronic Reason for Consult Date of Consultation: 03/28/17 Reason for Consultation: COPD exacerbation History of Present Illness: The patient is a 66 year old F with a past medical history as below who was seen in the pulmonary clinic for her 6 week follow-up visit by Angeline Acosta NP, with complaints of dyspnea and general ill-feeling for a few days. Patient complained of her BiPAP alarm going off constantly the night before her OV. She complained of dyspnea on exertion, chest tightness, palpitations, rhinorrhea with clear drainage, and nasal congestion. She also complained of increased lower extremity edema and difficulty in getting her shoes on. She takes 40 mg of Lasix twice daily. She was saturating 81-89% on 4 L of oxygen, which is her baseline oxygen requirements. Was discussed possibly treating her at home for COPD exacerbation, however patient was very unsure about this and wanted to be admitted to the hospital. The patient does have a history of aortic stenosis and is being evaluated for repair. She follows with Dr. Xavier and a surgeon in [place]. Workup in the emergency room included a chest x-ray which showed mild CHF and cardiomegaly but no pleural abnormality. Initial lab work showed a mild leukocytosis of 11,800, hemoglobin 9.5 which is her baseline. Neutrophils were 85% and lymphocytes 4.3%. Chloride 92 and serum bicarb 42.0. Glucose was 168 and troponin was indeterminate. BNP was normal at 81. Vital signs were BP 130/ 65, pulse 82, RR 14, 87% on 4 L, afebrile at 97.0?F. EKG showed sinus rhythm with a rate of 82 bpm, right bundle branch block which was not new. Patient was given a DuoNeb aerosol and IV Lasix. Patient's only complaint on the day of consultation was dyspnea on exertion and palpitations. Patient states she feels fine when she is just sitting in the chair, however feels like she cannot do anything without becoming very short of breath. She is frustrated and is unable to leave her home very often anymore. Patient reports there has been discussion about fixing her aortic valve/stenosis , but her doctors do not feel she is stable enough at this time to do so. Her upper respiratory symptoms such as rhinorrhea has resolved. Denies any increase in cough or sputum production. Past Medical History Past Medical History (Chronic Problems): Chronic Problems (Last Reviewed 03/27/17 @ 13:21 by Alejandra Frausto) Nonrheumatic aortic (valve) stenosis (Chronic) Left atrial enlargement (Chronic) Hypersomnia (Chronic) Anemia (Chronic) Palpitations (Chronic) Carotid artery stenosis (Chronic) Lumbago (Chronic) Chronic hypoxemic respiratory failure (Chronic) Pulmonary fibrosis (Chronic) 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 3 severe COPD by GOLD classification (Chronic) Aortic stenosis (Chronic) Moderate to severe with valve area 1.1 on cardiac catheterization in 2013 COPD (Chronic) Diabetes mellitus type II (Chronic) History of GI bleeding (Chronic) Status post EGD and colonoscopy by Dr. Blackmon in 2011, suspected AV malformations Pulmonary hypertension (Chronic) With PA pressures 55 by cardiac catheterization Hypoxemia (Chronic) Hypertension (Chronic) HLD (hyperlipidemia) (Chronic) 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) Allergies No Known Allergies Allergy (Verified 03/27/17 14:13) Home Medications: Ambulatory Orders Medication Instructions Recorded Metformin HCl [Glucophage] 1,000 mg PO BIDCM 01/15/14 Simvastatin [Zocor] 20 mg PO QHS 01/15/14 Ferrous Sulfate 325 mg PO BID 04/09/14 Escitalopram Oxalate [Lexapro] 10 mg PO DAILY 06/29/15 Metoprolol Tartrate [Lopressor 50 mg PO BID 06/29/15 (beta lorena)] Trazodone HCl [Desyrel] 100 mg PO QHS PRN PRN 06/29/15 Albuterol Inhaler [Ventolin Hfa] 2 puff INHALATION Q4H PRN PRN #2 10/02/15 inhaler Furosemide [Lasix] 80 mg PO BID 05/27/16 Budesonide/Formoterol Fumarate 2 puff IH BID 03/27/17 [Symbicort 160-4.5 Mcg Inhaler] Surgical History: herniorrhaphy, hysterectomy, - Psychiatric History: No pertinent psych hx 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 Lives: Spouse/ Significant Other Smoking Status: Former smoker Tobacco Use: Non-smoker Alcohol: None Drugs: None - *Family History Paternal Family History: Family History (Last Reviewed 03/27/17 @ 13:21 by Alejandra Frausto) Mother Heart disease Father CAD (coronary artery disease) Hypertension Brother Hypertension History Items: Heart Disease Maternal Family History: Family History (Last Reviewed 03/27/17 @ 13:21 by Alejandra Frausto) Mother Heart disease Father CAD (coronary artery disease) Hypertension Brother Hypertension History Items: Heart Disease Review of Systems Constitutional: Reports: Fatigue. Denies: Anorexia, Chills, Fever, Night Sweats , Malaise, Weakness HEENT: Reports: Post Nasal Drip, - - Rhinorrhea resolved. Phlegm in my throat . Denies: Difficulty Swallowing, Head Aches, Nasal Congestion, Sinus Congestion, Sinus Drainage, Sore Throat Cardiovascular: Reports: Edema, Orthopnea, Palpitations. Denies: Chest Pain, Chest Pressure, Light Headedness, Paroxysmal Noc. Dyspnea, Syncope Respiratory: Reports: Cough, Shortness of breath upon exertion, Sputum production - Minimal. Denies: Hemoptysis, Shortness of breath at rest, Wheezing Gastrointestinal: Denies: Abdominal Pain, Constipation, Diarrhea, Dyspepsia, Hematemesis, Hematochezia, Nausea, Melena, Vomiting Genitourinary: Denies: Dysuria, Frequency, Hematuria, Retention Musculoskeletal: Denies: Back Pain, Muscle pain Skin: Denies: Dryness, Rash, Wounds Neurological: Denies: Balance problems, Change in Speech, Confusion, Difficulty swallowing, Focal weakness, Numbness, Tingling, Tremor, Seizures Psychiatric: Reports: Anxiety. Denies: Depression Endocrine: Denies: Change in Body Habitus, Polydipsia, Polyuria Hematologic/ Lymphatic: Reports: Anemia, Easy Bruising, Easy Bleeding. Denies: Adenopathy, Hx of blood clot Patient Problems: Active and Suspected Problems (Last Reviewed 03/27/17 @ 13:21 by Alejandra Frausto ) COPD with acute exacerbation (Acute) Subjective: Patient was seen and examined. She is sitting up in the chair in no acute distress. Reports she is feeling better, however dyspnea on exertion persists. She blames it on her palpitations with activity. She voices frustration over her activity intolerance. States her concentrator only goes up to 4 L and believe she needs more with activity at home. She checks her pulse oximetry at home. Objective: Clinical Impression(s) from Imaging Studies Chest X-Ray 03/27/17 14:21 IMPRESSION: Mild CHF and cardiomegaly. Electronically Signed: Jonah Conner MD at 14:52 EST Tel [phone], Service support , - Physical Exam General: Alert, Oriented x3, Cooperative, No apparent distress, Well developed, Well nourished, - - No conversational dyspnea HEENT: Atraumatic, Normocephalic Oral: Moist Mucosa, No Gingival or Mucosal Lesions/ Ulcerations Neck: Supple, No Nodes, Trachea Midline Lungs: No rhonchi, No rales, Diminished, - - Faint expiratory wheeze Cardiovascular: Regular rate, Regular Rhythm, Normal S1, Normal S2, Murmur - AYUSH , No rub noted, No Gallop Abdomen: Bowel Sounds Present, Soft, Non Tender, Non-Distended, Obese Extremities: No cyanosis, No Calf Tenderness, Edema - 2-3+ LE Skin: No rashes, No breakdown Musculoskeletal: No Tenderness to Palpation of Joints or Extremities Lymphatic: No Cervical, Supraclavicular, or Inguinal Adenopathy Neurological: Cranial nerves II-XII grossly intact, Neuro grossly intact, Motor Exam 5/5 strength throughout Psych/Mental Status: Alert and oriented to time, place, person, mood and affect Vital Signs Temp Pulse Resp BP Pulse Ox 97.7 F L 88 16 126/57 H 93 03/28/17 03:53 03/28/17 07:00 03/28/17 08:00 03/28/17 03:53 03/28/17 07:28 Oxygen Flow Rate 4 Oxygen Delivery Method Nasal Cannula Weight: 260 lb 2.327 oz Body Mass Index (BMI) 46.5 Intake and Output for Last 24 Hours 03/26/17 03/27/17 03/28/17 23:59 23:59 23:59 Intake Total 705 / 705 Balance 705 / 705 Laboratory Tests Past 24 Hrs 03/27/17 03/28/17 18:39 06:05 Sodium 136 Potassium 4.7 Chloride 92 L Carbon Dioxide 38.0 H Anion Gap 6 BUN 22 H Creatinine 1.02 Estim Creat Clear Calc 41.75 Est GFR (MDRD) Af Amer 69 Est GFR (MDRD) Non-Af 57 L BUN/Creatinine Ratio 21.6 H Glucose 225 H Calcium 8.7 Troponin I 0.057 H POC Glucose 03/28/17 03/27/17 06:40 22:39 POC Glucose 210 H 192 H Assessment/Plan Active and Suspected Problems (Last Reviewed 03/27/17 @ 13:21 by Alejandra Frausto ) COPD with acute exacerbation (Acute) RECOMMENDATIONS 1. Wean oxygen supplementation to keep saturations 88-92%. 2. Encourage incentive spirometer 3. Increase activity as tolerated 4. Continue aerosols 5. Continue oral steroids 6. Ambulatory pulse oximetry today 7. Patient can follow-up in pulmonary clinic in 2 weeks IMPRESSIONS 1. Acute on chronic hypoxic and hypercapnic respiratory failure Patient has baseline oxygen requirement of 4 L per nasal cannula. She is complaining of worsening dyspnea on exertion and palpitations, orthopnea. Her concentrator only goes up to 4 L at home. She voices frustration over her poor activity tolerance. She checks her pulse oximetry and desaturates with any exertion on her 4 L. Chest x-ray was read as mild CHF, BNP was normal. Suspect cor pulmonale, patient had improvement after IV Lasix. Patient does have pulmonary hypertension and diastolic CHF, however does not appear to be an exacerbation at this time. She has moderate to severe aortic stenosis which complicates her course. She feels she is at her baseline overall. Recommend obtaining ambulatory pulse oximetry as I suspect patient has increased oxygen needs with exertion. Her concentrator will need to be changed to higher flow on discharge through her DME if this is the case. 2. COPD exacerbation Suspect this is not a COPD exacerbation, but more related to cor pulmonale. Does not appear to be infectious, afebrile. She is on oral steroids, can resume taper upon discharge. She is on her baseline of 4 L. See #1. 3. Moderate to severe aortic stenosis/hypertension/DM/chronic diastolic CHF/ hyperlipidemia/anemia/anxiety Locates care, management, recovery, and prognosis. Management per hospitalist, okay to continue home meds. Patient likely okay to be discharged later today after ambulatory pulse ox. Thank you for the opportunity to participate in this patient's care, please do not hesitate to contact us with any further questions or concerns. This note was generated with [employer] dictation software. It may contain incorrect words, spelling, and punctuation that were not noted in checking the note before signing.
[2017-03-28] MEDS: Escitalopram Oxalate 10 MG Tablet PO (10:40)
[2017-03-28] MEDS: Furosemide 40 MG Tablet PO ×2 (10:40→17:16)
[2017-03-28] MEDS: Metoprolol Tartrate 50 MG Tablet PO ×2 (10:40→21:23)
[2017-03-28 11:36] LABS: Bedside Glucose 219 mg/dL (70-110)
--- NOTE | 2017-03-28 12:22 | PCM.PROGNOTE ---
<Shemar Butcher - Last Filed: 03/28/17 12:22> Patient Problems: Active and Suspected Problems (Last Reviewed 03/27/17 @ 13:21 by Alejandra Frausto) COPD with acute exacerbation (Acute) Subjective: Pt is resting comfortably in chair bedside currently on 4 L/min oxygen states she does not feel short of breath at all at rest. She is very dyspneic with exertion still. She has not coughed at all this morning. She denies any chest pain, or any change in the swelling of her legs. She states overall she does not feel significantly different than yesterday. - Physical Exam General: Alert, Oriented x3, Cooperative HEENT: Atraumatic, PERRLA, EOMI, Normocephalic Neck: Supple, No JVD, Negative Carotid Bruits Lungs: Diminished - Severely diminished lungs throughout bilateral mckeon. Cardiovascular: Regular rate, No murmurs Abdomen: Bowel Sounds Present, Soft, Non Tender Extremities: Capillary Refill Less than 3 Seconds, Edema - 2+ pitting edema bilateral lower extremities up to the knees. Skin: No rashes, No breakdown Musculoskeletal: No Tenderness to Palpation of Joints or Extremities Neurological: Cranial nerves II-XII grossly intact Psych/Mental Status: Normal Affect, Appropriate, Alert and oriented to time, place, person, mood and affect Vital Signs Temp Pulse Resp BP Pulse Ox 98.4 F 81 19 H 114/50 L 93 03/28/17 09:30 03/28/17 11:22 03/28/17 11:22 03/28/17 10:40 03/28/17 09:30 Oxygen Flow Rate 4 Oxygen Delivery Method Nasal Cannula Weight: 118 kg Body Mass Index (BMI) 46.5 Intake and Output for Last 24 Hours 03/26/17 03/27/17 03/28/17 23:59 23:59 23:59 Intake Total 705 / 705 Balance 705 / 705 Laboratory Tests Past 24 Hrs 03/27/17 03/28/17 18:39 06:05 Sodium 136 Potassium 4.7 Chloride 92 L Carbon Dioxide 38.0 H Anion Gap 6 BUN 22 H Creatinine 1.02 Estim Creat Clear Calc 41.75 Est GFR (MDRD) Af Amer 69 Est GFR (MDRD) Non-Af 57 L BUN/Creatinine Ratio 21.6 H Glucose 225 H Calcium 8.7 Troponin I 0.057 H POC Glucose 03/28/17 03/28/17 03/27/17 11:25 06:40 22:39 POC Glucose 219 H 210 H 192 H Assessment/Plan Active and Suspected Problems (Last Reviewed 03/27/17 @ 13:21 by Alejandra Frausto) COPD with acute exacerbation (Acute) 1. Cor pulmonale-with chronic hypoxic respiratory failure, complicated by diastolic heart failure, COPD, pulmonary hypertension, pulmonary fibrosis, cysts moderate to severe aortic stenosis. Patient reports feeling about the same. Pulmonology is following. Continue aerosols since prednisone taper. BiPAP at night. She is stable on her home O2 levels. 2. Chronic diastolic CHF - BNP normal. Transition to p.o. Lasix. Positive orthopnea.. Weight is actually down 8 pounds over last 3 weeks. Last echo 06/2016 with EF 70%, diastolic dysfunction, RVSP 61 mmHg 3. Indeterminate troponin -second troponin trending down. No chest pain. Negative telemetry. 4. DMt2 - hold orals and add sliding scale insulin 5. HTN - stable 6. Mod-severe aortic stenosis - follows Dr. Xavier and a surgeon at [facility] for this, has been told she is not ready for surgery. 7. HLD - statin 8. Chronic normocytic anemia - trend. Continue PO iron. 9. Anxiety - trazodone and lexapro DVT ppx: lovenox This patient was seen by Shemar Butcher PA-C under the supervision of Doctor Rubén. <David Montana - Last Filed: 03/28/17 13:58> - Physical Exam Vital Signs Temp Pulse Resp BP Pulse Ox 98.4 F 81 19 H 114/50 L 93 03/28/17 09:30 03/28/17 11:22 03/28/17 11:22 03/28/17 10:40 03/28/17 09:30 Oxygen Flow Rate 4 Oxygen Delivery Method Nasal Cannula Weight: 260 lb 2.327 oz Body Mass Index (BMI) 46.5 Intake and Output for Last 24 Hours 03/26/17 03/27/17 03/28/17 23:59 23:59 23:59 Intake Total 705 / 705 Balance 705 / 705 Laboratory Tests Past 24 Hrs 03/27/17 03/28/17 18:39 06:05 Sodium 136 Potassium 4.7 Chloride 92 L Carbon Dioxide 38.0 H Anion Gap 6 BUN 22 H Creatinine 1.02 Estim Creat Clear Calc 41.75 Est GFR (MDRD) Af Amer 69 Est GFR (MDRD) Non-Af 57 L BUN/Creatinine Ratio 21.6 H Glucose 225 H Calcium 8.7 Troponin I 0.057 H POC Glucose 03/28/17 03/28/17 03/27/17 11:25 06:40 22:39 POC Glucose 219 H 210 H 192 H Assessment/Plan Hospitalist note: I am seeing this patient in conjunction with Shemar barker I independently seen and examined the patient. Progress note above, laboratory data and imaging studies reviewed. Patient was admitted for worsening exertional shortness of breath. Today, she reported mild improvement of her symptoms and she mentioned that her shortness of breath got worse on the with ambulation. She has been on 4 L of oxygen and she remained on 4 L at this time. She reported mild dry cough, no sputum production. Denied chest pain or palpitation. Denies fever or chills. Apart from being on oxygen, other vital signs are stable. - Physical Exam General: Alert, Oriented x3, Cooperative, mildly short of breath. HEENT: Atraumatic, PERRLA, EOMI. Neck: Supple, No JVD, Negative Carotid Bruits, Trachea Midline, Thyroid Normal. Lungs: Decreased breath sounds bilateral, otherwise clear, no rhonchi, No wheeze, No rales. Cardiovascular: Regular rate, Regular Rhythm, Normal S1, Normal S2, PMI Normal. Abdomen: Bowel Sounds Present, Soft, Non Tender, Non-Distended, No Hepato-splenomegaly. Extremities: No clubbing, No cyanosis, No edema Skin: No rashes, No breakdown Neurological: Neuro grossly intact Vital Signs are stable. Assessment and plan: #1 worsening shortness of breath: Multifactorial, mainly secondary to cor pulmonale which is complicated by chronic diastolic congestive heart failure. Also, she does have COPD, pulmonary hypertension and lung fibrosis as well as moderate to severe aortic stenosis. Her symptoms are mainly exertional. She is on bronchodilators and oral prednisone as well as oral Lasix. Her EKG revealed normal sinus rhythm with right bundle branch block which is chronic. Troponin is very slightly elevated, denies any chest pain. Chest x-ray reviewed, showed cardiomegaly and minimal pulmonary vascular congestion. And to continue on prednisone, bronchodilators and oral Lasix. #2 Chronic diastolic CHF: BMP is normal. She is on oral Lasix. She is on metoprolol as well. #3 chronic respiratory failure: Multifactorial as above. At home, she has been on 4 L, at this time also she may need 4 L. Plan as above. #4 other chronic medical problems: Stable, continue current medications as above. This note was generated with [employer] dictation software. It may contain incorrect words, spelling, and punctuation that were not noted in checking the note before signing. Code Visit Inpatient E&M: 03988 Subs Hosp L2
--- NOTE | 2017-03-28 12:27 | PN_ITS ---
<Shemar Butcher - Last Filed: 03/28/17 12:22> Patient Problems: Active and Suspected Problems (Last Reviewed 03/27/17 @ 13:21 by Alejandra Frausto ) COPD with acute exacerbation (Acute) Subjective: Pt is resting comfortably in chair bedside currently on 4 L/min oxygen states she does not feel short of breath at all at rest. She is very dyspneic with exertion still. She has not coughed at all this morning. She denies any chest pain, or any change in the swelling of her legs. She states overall she does not feel significantly different than yesterday. - Physical Exam General: Alert, Oriented x3, Cooperative HEENT: Atraumatic, PERRLA, EOMI, Normocephalic Neck: Supple, No JVD, Negative Carotid Bruits Lungs: Diminished - Severely diminished lungs throughout bilateral mckeon. Cardiovascular: Regular rate, No murmurs Abdomen: Bowel Sounds Present, Soft, Non Tender Extremities: Capillary Refill Less than 3 Seconds, Edema - 2+ pitting edema bilateral lower extremities up to the knees. Skin: No rashes, No breakdown Musculoskeletal: No Tenderness to Palpation of Joints or Extremities Neurological: Cranial nerves II-XII grossly intact Psych/Mental Status: Normal Affect, Appropriate, Alert and oriented to time, place, person, mood and affect Vital Signs Temp Pulse Resp BP Pulse Ox 98.4 F 81 19 H 114/50 L 93 03/28/17 09:30 03/28/17 11:22 03/28/17 11:22 03/28/17 10:40 03/28/17 09:30 Oxygen Flow Rate 4 Oxygen Delivery Method Nasal Cannula Weight: 118 kg Body Mass Index (BMI) 46.5 Intake and Output for Last 24 Hours 03/26/17 03/27/17 03/28/17 23:59 23:59 23:59 Intake Total 705 / 705 Balance 705 / 705 Laboratory Tests Past 24 Hrs 03/27/17 03/28/17 18:39 06:05 Sodium 136 Potassium 4.7 Chloride 92 L Carbon Dioxide 38.0 H Anion Gap 6 BUN 22 H Creatinine 1.02 Estim Creat Clear Calc 41.75 Est GFR (MDRD) Af Amer 69 Est GFR (MDRD) Non-Af 57 L BUN/Creatinine Ratio 21.6 H Glucose 225 H Calcium 8.7 Troponin I 0.057 H POC Glucose 03/28/17 03/28/17 03/27/17 11:25 06:40 22:39 POC Glucose 219 H 210 H 192 H Assessment/Plan Active and Suspected Problems (Last Reviewed 03/27/17 @ 13:21 by Alejandra Frausto ) COPD with acute exacerbation (Acute) 1. Cor pulmonale-with chronic hypoxic respiratory failure, complicated by diastolic heart failure, COPD, pulmonary hypertension, pulmonary fibrosis, cysts moderate to severe aortic stenosis. Patient reports feeling about the same. Pulmonology is following. Continue aerosols since prednisone taper. BiPAP at night. She is stable on her home O2 levels. 2. Chronic diastolic CHF - BNP normal. Transition to p.o. Lasix. Positive orthopnea.. Weight is actually down 8 pounds over last 3 weeks. Last echo 2016 with EF 70%, diastolic dysfunction, RVSP 61 mmHg 3. Indeterminate troponin -second troponin trending down. No chest pain. Negative telemetry. 4. DMt2 - hold orals and add sliding scale insulin 5. HTN - stable 6. Mod-severe aortic stenosis - follows Dr. Xavier and a surgeon at [facility] for this, has been told she is not ready for surgery. 7. HLD - statin 8. Chronic normocytic anemia - trend. Continue PO iron. 9. Anxiety - trazodone and lexapro DVT ppx: lovenox This patient was seen by Shemar Butcher PA-C under the supervision of Doctor Rubén. <David Montana - Last Filed: 03/28/17 13:58> - Physical Exam Vital Signs Temp Pulse Resp BP Pulse Ox 98.4 F 81 19 H 114/50 L 93 03/28/17 09:30 03/28/17 11:22 03/28/17 11:22 03/28/17 10:40 03/28/17 09:30 Oxygen Flow Rate 4 Oxygen Delivery Method Nasal Cannula Weight: 260 lb 2.327 oz Body Mass Index (BMI) 46.5 Intake and Output for Last 24 Hours 03/26/17 03/27/17 03/28/17 23:59 23:59 23:59 Intake Total 705 / 705 Balance 705 / 705 Laboratory Tests Past 24 Hrs 03/27/17 03/28/17 18:39 06:05 Sodium 136 Potassium 4.7 Chloride 92 L Carbon Dioxide 38.0 H Anion Gap 6 BUN 22 H Creatinine 1.02 Estim Creat Clear Calc 41.75 Est GFR (MDRD) Af Amer 69 Est GFR (MDRD) Non-Af 57 L BUN/Creatinine Ratio 21.6 H Glucose 225 H Calcium 8.7 Troponin I 0.057 H POC Glucose 03/28/17 03/28/17 03/27/17 11:25 06:40 22:39 POC Glucose 219 H 210 H 192 H Assessment/Plan Hospitalist note: I am seeing this patient in conjunction with Shemar barker I independently seen and examined the patient. Progress note above, laboratory data and imaging studies reviewed. Patient was admitted for worsening exertional shortness of breath. Today, she reported mild improvement of her symptoms and she mentioned that her shortness of breath got worse on the with ambulation. She has been on 4 L of oxygen and she remained on 4 L at this time. She reported mild dry cough, no sputum production. Denied chest pain or palpitation. Denies fever or chills. Apart from being on oxygen, other vital signs are stable. - Physical Exam General: Alert, Oriented x3, Cooperative, mildly short of breath. HEENT: Atraumatic, PERRLA, EOMI. Neck: Supple, No JVD, Negative Carotid Bruits, Trachea Midline, Thyroid Normal. Lungs: Decreased breath sounds bilateral, otherwise clear, no rhonchi, No wheeze , No rales. Cardiovascular: Regular rate, Regular Rhythm, Normal S1, Normal S2, PMI Normal. Abdomen: Bowel Sounds Present, Soft, Non Tender, Non-Distended, No Hepato- splenomegaly. Extremities: No clubbing, No cyanosis, No edema Skin: No rashes, No breakdown Neurological: Neuro grossly intact Vital Signs are stable. Assessment and plan: #1 worsening shortness of breath: Multifactorial, mainly secondary to cor pulmonale which is complicated by chronic diastolic congestive heart failure. Also, she does have COPD, pulmonary hypertension and lung fibrosis as well as moderate to severe aortic stenosis. Her symptoms are mainly exertional. She is on bronchodilators and oral prednisone as well as oral Lasix. Her EKG revealed normal sinus rhythm with right bundle branch block which is chronic. Troponin is very slightly elevated, denies any chest pain. Chest x-ray reviewed , showed cardiomegaly and minimal pulmonary vascular congestion. And to continue on prednisone, bronchodilators and oral Lasix. #2 Chronic diastolic CHF: BMP is normal. She is on oral Lasix. She is on metoprolol as well. #3 chronic respiratory failure: Multifactorial as above. At home, she has been on 4 L, at this time also she may need 4 L. Plan as above. #4 other chronic medical problems: Stable, continue current medications as above. This note was generated with [employer] dictation software. It may contain incorrect words, spelling, and punctuation that were not noted in checking the note before signing. Code Visit Inpatient E&M: 55676 Subs Hosp L2
--- NOTE | 2017-03-28 14:36 | ECHOCS_ITS ---
Reason For Study: PHTN Procedure This was a 2D Doppler, Color Flow transthoracic echocardiogram. The study was technically difficult. Exam performed portable in patient room. Left Ventricle Normal LV size. Mild concentric left ventricular hypertrophy. Left ventricular systolic function is normal. The estimated ejection fraction is 60 %. No regional wall motion abnormalities noted. Right Ventricle Normal RV size. Normal systolic function. Atria The left atrium is mildly enlarged. Mitral Valve There is moderate mitral annular calcification. Mild (1+) eccentric mitral valve insufficiency. Tricuspid Valve Normal tricuspid valve. Unable to estimate RV systolic pressure/pulmonary artery pressure due to technically difficult study. Aortic Valve Trisinus/trileaflet aortic valve. Moderate focal aortic valve calcification. Peak aortic valve gradient 62 mmHg. Mean aortic valve gradient 27 mmHg. Calculated aortic valve area (continuity equation) is .95 cm2. Pulmonic Valve Normal pulmonic valve. Great Vessels Normal aortic root. The pulmonary artery is normal size. Normal inferior vena cava. Pericardium/Pleural No pericardial effusion. MMode/2D Measurements & Calculations LVIDd: 5.0 cm IVSd: 1.2 cm LVOT diam: 1.9 cm LVIDs: 3.2 cm LVPWd: 1.3 cm LVOT area: 2.8 cm2 FS: 34.9 % Ao root diam: 2.4 cm LAV(MOD-bp): 95.8 ml LA A4 area: 26.5 cm2 ACS: 0.72 cm LAV(MOD-bp) Indexed: 45.6 ml/m2 LA dimension: 4.4 cm LAV(MOD-sp2): 99.3 ml LAV(MOD-sp4): 92.3 ml Time Measurements MV dec time: 0.23 sec Doppler Measurements & Calculations MV E max chucho: 155.8 cm/sec Lat Peak E' Chucho: 13.9 cm/sec Med Peak E' Chucho: 12.9 cm/sec MV A max chucho: 106.5 cm/sec E/E' lat: 11.2 E/E' med: 12.1 MV E/A: 1.5 MV V2 max: 190.7 cm/sec MV P1/2t max chucho: 190.7 cm/sec Ao V2 max: 394.4 cm/sec MV max P.5 mmHg MV P1/2t: 65.5 msec Ao max P.3 mmHg MV V2 mean: 98.0 cm/sec MV dec slope: 852.8 cm/sec2 Ao V2 mean: 227.2 cm/sec MV mean P.6 mmHg MVA(P1/2t): 3.4 cm2 Ao mean P.6 mmHg MV V2 VTI: 41.2 cm Ao V2 VTI: 81.4 cm MVA(VTI): 1.9 cm2 LUPE(I,D): 0.94 cm2 LUPE(V,D): 0.85 cm2 LV V1 max: 122.0 cm/sec MR max chucho: 530.9 cm/sec SV(LVOT): 76.5 ml LV V1 max P.0 mmHg MR max P.7 mmHg LV V1 mean P.3 mmHg LV V1 mean: 84.3 cm/sec LV V1 VTI: 27.7 cm PA V2 max: 150.7 cm/sec Interpretation Summary Normal LV size. Mild concentric left ventricular hypertrophy. Left ventricular systolic function is normal. The estimated ejection fraction is 60 %. Moderate focal aortic valve calcification. Mean aortic valve gradient 27 mmHg. Calculated aortic valve area (continuity equation) is .95 cm2. Compared to prior study, there is no significant change. Ordering Physician: Shemar Butcher Referring Physician: Rajesh Dixon Performed By: John Tim RCS
--- NOTE | 2017-03-28 15:19 | CPS ---
started to walk patient on 4 lpm, within 20 feet she dropped to 85%. let her sit and recover to 93, started this time on 6 lpm and she walked about 30 feet before dropping to 85% again. back to room, let recover, informed Dr. Dixon
--- NOTE | 2017-03-28 15:41 | CASEMGMT ---
Face to Face with patient for initial transition planning/care coordination assessment. RN WHITLEY introduced self and role at [facility], pt voices understanding and consents to assessment at this time. Pt sitting up in chair in no distress at this time. Pt A/O x4 at this time and answers questions appropriately at this time. Care providers, pharmacy, and demographics verified. See attached link. Pt voices no further concerns/needs at this time. Advised pt to ask for CM if any further questions/concerns/needs arise, voices understanding. CM to follow for any further discharge planning/needs. PLAN: [place] [facility]
[2017-03-28 16:36] LABS: Bedside Glucose 259 mg/dL (70-110)
[2017-03-28] MEDS: Atorvastatin Calcium 10 MG Tablet PO (21:23)
[2017-03-28 21:30] LABS: Bedside Glucose 241 mg/dL (70-110)
[2017-03-29] VITALS (17 sets, daily range): BP systolic 113–145; BP diastolic 52–98; PULSE 76–100; RESP 16–21; TEMP 36.6–37; O2SAT 84–96
[2017-03-29] MEDS: Heparin Injection 5,000 UNITS/ML Syringe 5000 UNITS SC ×3 (05:52→21:38)
[2017-03-29 06:44] LABS: Absolute Lymphocyte Count 0.98 X10^3/ul (0.83-4.51); Absolute Neutrophil Count 9.7 X10^3/uL (2.0-7.7); Basophil# 0.03 X10^3/uL; Basophil% 0.3 % (0-1); Eosinophil# 0.09 X10^3/uL; Eosinophils% 0.8 % (0-5); Hematocrit 33.9 % (37-47); Hemoglobin 8.9 g/dl (12.0-15.0); Lymphocyte # 0.98 X10^3/ul (4.0); Lymphocyte % 8.5 % (19-41); Mean Corp Hgb Conc 26.3 g/gl (32-36); Mean Corpuscular Hgb 25.1 pg (27.0-32.0); Mean Corpuscular Volume 95.8 fL (81-99); Mean Platelet Vol. 9.6 fl (6.2-12.0); Monocyte# 0.77 X10^3/uL; Monocyte% 6.6 % (0-10); Neutrophil # 9.69 X10^3/uL (2.7-7.7); Neutrophil % 83.5 % (47-70); Platelet Count 366 K/mm3 (150-450); RBC Distribution Width CV 19.9 % (11.6-14.6); RBC Distribution Width SD 70.2 fl (35.1-43.9); Red Blood Count 3.54 M/mm3 (4.2-5.4); White Blood Count 11.6 K/mm3 (4.4-11.0)
[2017-03-29 06:50] LABS: Anion Gap 8 (5-15); BUN 31 mg/dL (7-18); BUN/Creat Ratio 25.6 RATIO (10-20); Calcium,Total 8.5 mg/dL (8.5-10.1); Chloride 90 mmol/L (98-107); Creatinine, Serum 1.21 mg/dL (0.55-1.02); Differential Indicated SCAN CRITERIA MET; EST Glomerular Filtration Rate 47 mL/min (>60); Est Glom Filt Rate - Afr Amer 57 mL/min (>60); Estimated Creatinine Clearance 35.19 ml/min; Glucose 136 mg/dL (70-110); Magnesium 1.9 mg/dL (1.8-2.4); POSITIVE COUNT NO; POSITIVE DIFFERENTIAL NO; POSITIVE MORPHOLOGY YES; Potassium 4.3 mmol/L (3.5-5.1); Sodium Level 138 mmol/L (136-145)
[2017-03-29] MEDS: Ipratropium/Albuterol Sulfate 3 ML AMPUL.NEB INHALATION ×4 (06:50→19:31)
[2017-03-29 07:00] LABS: Anisocytosis 1+; Differential Comment SCANNED; Polychromasia RARE
[2017-03-29 07:10] LABS: Bedside Glucose 138 mg/dL (70-110)
--- NOTE | 2017-03-29 08:24 | PCM.PROGNOTE ---
Patient Problems: Active and Suspected Problems (Last Reviewed 03/27/17 @ 13:21 by Alejandra Frausto) Acute on chronic respiratory failure with hypoxia and hypercapnia (Acute) Subjective: Patient seen and examined. She is sitting up in the chair eating her breakfast. She reports mild shortness of breath associated with her minimal exertion of eating breakfast. She denies any cough or wheezing. Denies any sputum production. She had a walking oximetry performed yesterday on for her for earlier baseline oxygen requirement. Within 20 feet, she dropped to 85%. She rested and recovered to 93%, then again ambulated on 6 L of oxygen and walked approximately 30 feet before dropping back to 85% again. She was very dyspneic and took several minutes to recover. 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 - Physical Exam General: Alert, Oriented x3, Cooperative, Well developed, Well nourished, - - mild respiratory distress and conversational dyspnea HEENT: Atraumatic, Normocephalic Oral: Moist Mucosa, No Gingival or Mucosal Lesions/ Ulcerations Neck: Supple, No Nodes, Trachea Midline Lungs: Short of Breath, - - Very poor air movement, no wheezing or rhonchi. Bibasilar rales posteriorly. Cardiovascular: Regular rate, Regular Rhythm, Normal S1, Normal S2, Murmur, No rub noted, No Gallop Abdomen: Bowel Sounds Present, Soft, Non Tender, Non-Distended, Obese Extremities: No cyanosis, Edema Skin: No rashes, No breakdown Musculoskeletal: No Tenderness to Palpation of Joints or Extremities Lymphatic: No Cervical, Supraclavicular, or Inguinal Adenopathy Neurological: Neuro grossly intact, Motor Exam 5/5 strength throughout Psych/Mental Status: Alert and oriented to time, place, person, mood and affect Vital Signs Temp Pulse Resp BP Pulse Ox 98.5 F 87 21 H 145/70 H 93 03/29/17 03:03 03/29/17 06:50 03/29/17 06:50 03/29/17 03:03 03/29/17 07:41 Oxygen Flow Rate 4 Oxygen Delivery Method Nasal Cannula Weight: 259 lb 11.272 oz Body Mass Index (BMI) 46.5 Intake and Output for Last 24 Hours 03/27/17 03/28/17 03/29/17 23:59 23:59 23:59 Intake Total 2024 0 / 0 Output Total 650 / 650 Balance 1375 / 1375 0 / 0 Laboratory Tests Past 24 Hrs 03/29/17 03/29/17 06:00 06:00 WBC 11.6 H RBC 3.54 L Hgb 8.9 L Hct 33.9 L MCV 95.8 MCH 25.1 L MCHC 26.3 L RDW 19.9 H RDW Differential 70.2 H Plt Count 366 MPV 9.6 Immature Gran % (Auto) 0.300 Neut % (Auto) 83.5 H Lymph % (Auto) 8.5 L [place] % (Auto) 6.6 Eos % (Auto) 0.8 Baso % (Auto) 0.3 Absolute Neuts (auto) 9.7 H Absolute Lymphs (auto) 0.98 Total Counted Not Reportable Differential Comment SCANNED Polychromasia RARE Anisocytosis 1+ Sodium 138 Potassium 4.3 Chloride 90 L Carbon Dioxide 40.0 H Anion Gap 8 BUN 31 H Creatinine 1.21 H Estim Creat Clear Calc 35.19 Est GFR (MDRD) Af Amer 57 L Est GFR (MDRD) Non-Af 47 L BUN/Creatinine Ratio 25.6 H Glucose 136 H Calcium 8.5 Magnesium 1.9 POC Glucose 03/29/17 03/28/17 03/28/17 06:56 21:18 16:30 POC Glucose 138 H 241 H 259 H 03/28/17 11:25 POC Glucose 219 H Assessment/Plan Active and Suspected Problems (Last Reviewed 03/27/17 @ 13:21 by Alejandra Frausto) Acute on chronic respiratory failure with hypoxia and hypercapnia (Acute) RECOMMENDATIONS 1. Wean oxygen supplementation to keep saturations 88-92%. 2. Encourage incentive spirometer 3. Increase activity as tolerated 4. Continue aerosols 5. Discontinue steroids 6. Increase oxygen to 6L/nc with ambulation 7. Obtain echocardiogram to reassess aortic valve disease, may consider transfer to [facility] if indicated 8. Patient can follow-up in pulmonary clinic within 2 weeks of discharge 9. Patient will require change in her oxygen concentrator at home to accommodate for increased oxygen demand 6 L with exertion IMPRESSIONS 1. Acute on chronic hypoxic and hypercapnic respiratory failure Patient has baseline oxygen requirement of 4 L per nasal cannula. She is complaining of worsening dyspnea on exertion and palpitations, orthopnea. Her concentrator only goes up to 4 L at home. She voices frustration over her poor activity tolerance. She checks her pulse oximetry and desaturates with any exertion on her 4 L. Chest x-ray was read as mild CHF, BNP was normal. Suspect cor pulmonale, patient had improvement after IV Lasix. Patient does have pulmonary hypertension and diastolic CHF, however does not appear to be an exacerbation at this time. She has moderate to severe aortic stenosis which complicates her course. Will obtain echocardiogram today to reassess her valvular disease, she may require transfer to the [facility] for intervention if indicated. She has been following with cardiothoracic surgery in anticipation of aortic valve surgery. She feels she is at her baseline overall. Ambulatory pulse ox showed significant desaturation, even on 6 L at 35 feet. Her concentrator will need to be changed to higher flow on discharge through her DME and discharged, she goes through [facility]. 2. COPD exacerbation Suspect this is not a COPD exacerbation, but more related to cor pulmonale. Does not appear to be infectious, afebrile. Likely okay to discontinue her steroids at this time. She is on her baseline of 4 L. See #1. 3. Moderate to severe aortic stenosis/hypertension/DM/chronic diastolic CHF/hyperlipidemia/anemia/anxiety Complicates care, management, recovery, and prognosis. Management per hospitalist, okay to continue home meds. Thank you for the opportunity to participate in this patient's care, please do not hesitate to contact us with any further questions or concerns. This note was generated with [employer] dictation software. It may contain incorrect words, spelling, and punctuation that were not noted in checking the note before signing.
[2017-03-29] MEDS: Metoprolol Tartrate 50 MG Tablet PO ×2 (10:00→21:38)
[2017-03-29] MEDS: Furosemide 40 MG Tablet PO ×2 (10:00→16:59)
[2017-03-29] MEDS: Escitalopram Oxalate 10 MG Tablet PO (10:00)
[2017-03-29] MEDS: Ferrous Sulfate 325 MG Tablet PO ×2 (10:00→16:59)
[2017-03-29] MEDS: metFORMIN HCl 1,000 MG Tablet 1000 MG PO ×2 (10:00→16:59)
--- NOTE | 2017-03-29 11:06 | NURSING ---
PATIENT AMBULATED ON 4LNC DROPPED TO 84%, INCREASED TO 6LNC PATIENT HAD TO TAKE MANY BREAKS GOT UP TO 87% ON 6LNC, PATIENT SAT DOWN TURN COUPLE OF MINUTES TO RECOVER TO 90% 4LNC.
--- NOTE | 2017-03-29 11:55 | PCM.PROGNOTE ---
<Shemar Butcher - Last Filed: 03/29/17 11:55> Patient Problems: Active and Suspected Problems (Last Updated 03/29/17 @ 09:43 by Maureen Marshall, ADRIANA-C) Acute on chronic respiratory failure with hypoxia and hypercapnia (Acute) Subjective: Patient continues to have no shortness of breath at rest but continues to be very short of breath with even short episodes of exertion despite 6 L of oxygen via nasal cannula with desaturations into the 80s and slow recovery. She denies chest pains or palpitations, dizziness or lightheadedness. She is arranging to have a concentrator that will be able to provide more than 4 L/min at home. She is no fevers or chills. She has no cough, she has had no change in the swelling of her lower extremities, which remains mild reportedly similar to what she chronically has. She underwent an echocardiogram today which demonstrated no change since her prior echo. - Physical Exam General: Alert, Oriented x3, Cooperative HEENT: Atraumatic, PERRLA, EOMI, Normocephalic Neck: Supple, No JVD, Negative Carotid Bruits Lungs: Diminished - Her lungs continue to be severely diminished throughout all mckeon however today there is somewhat more air movement in the bilateral bases and is more of a fine crackle present, she appears to be moving more air in her lower mckeon today., Rales Cardiovascular: Regular rate, No murmurs Abdomen: Bowel Sounds Present, Soft, Non Tender Extremities: No edema, Capillary Refill Less than 3 Seconds Skin: No rashes, No breakdown Musculoskeletal: No Tenderness to Palpation of Joints or Extremities Neurological: Cranial nerves II-XII grossly intact Psych/Mental Status: Normal Affect, Appropriate Vital Signs Temp Pulse Resp BP Pulse Ox 98.6 F 81 18 120/56 L 84 03/29/17 10:00 03/29/17 10:52 03/29/17 10:52 03/29/17 10:03/29/17 11:05 Oxygen Flow Rate [At REST on 4.5 Room Air] Oxygen Flow Rate [AMBULATION 4 with Oxygen] Oxygen Flow Rate 4.5 Oxygen Delivery Method Nasal Cannula Weight: 117.8 kg Body Mass Index (BMI) 46.5 Intake and Output for Last 24 Hours 03/27/17 03/28/17 03/29/17 23:59 23:59 23:59 Intake Total 2024 0 / 0 Output Total 650 / 650 Balance 1375 / 1375 0 / 0 Laboratory Tests Past 24 Hrs 03/29/17 03/29/17 06:00 06:00 WBC 11.6 H RBC 3.54 L Hgb 8.9 L Hct 33.9 L MCV 95.8 MCH 25.1 L MCHC 26.3 L RDW 19.9 H RDW Differential 70.2 H Plt Count 366 MPV 9.6 Immature Gran % (Auto) 0.300 Neut % (Auto) 83.5 H Lymph % (Auto) 8.5 L [place] % (Auto) 6.6 Eos % (Auto) 0.8 Baso % (Auto) 0.3 Absolute Neuts (auto) 9.7 H Absolute Lymphs (auto) 0.98 Total Counted Not Reportable Differential Comment SCANNED Polychromasia RARE Anisocytosis 1+ Sodium 138 Potassium 4.3 Chloride 90 L Carbon Dioxide 40.0 H Anion Gap 8 BUN 31 H Creatinine 1.21 H Estim Creat Clear Calc 35.19 Est GFR (MDRD) Af Amer 57 L Est GFR (MDRD) Non-Af 47 L BUN/Creatinine Ratio 25.6 H Glucose 136 H Calcium 8.5 Magnesium 1.9 POC Glucose 03/29/17 03/28/17 03/28/17 06:56 21:18 16:30 POC Glucose 138 H 241 H 259 H Assessment/Plan Active and Suspected Problems (Last Updated 03/29/17 @ 09:43 by Maureen Marshall, [employer]PERATOR-C) Acute on chronic respiratory failure with hypoxia and hypercapnia (Acute) 1. Cor pulmonale-with chronic hypoxic respiratory failure, complicated by diastolic heart failure, COPD, pulmonary hypertension, pulmonary fibrosis, cysts moderate to severe aortic stenosis. Patient feels the same - stable at rest, dyspneic with short exertion. Her lungs sounds somewhat more expanded today on exam, but still very diminished overall. Pulmonology is following. Continue aerosols and prednisone taper. BiPAP at night. -A repeat echo shows no change since prior. -AV area is 0.95cm2 2. Chronic diastolic CHF - BNP normal. Creatinine up somewhat. Transition to p.o. Lasix. Positive orthopnea. Weight is actually down 8 pounds over last 3 weeks. Echo unchanged. 3. Indeterminate troponin -second troponin trending down. No chest pain. Negative telemetry. 4. DMt2 - SSI 5. HTN - stable 6. Mod-severe aortic stenosis - follows Dr. Xavier and a surgeon at [facility] for this, has been told she is not ready for surgery. Echo shows no change. 7. HLD - statin 8. Chronic normocytic anemia - trend. Continue PO iron. 9. Anxiety - trazodone and lexapro DVT ppx: lovenox This patient was seen by Shemar Butcher PA-C under the supervision of Doctor Rubén. <David Montana E - Last Filed: 03/29/17 15:00> - Physical Exam Vital Signs Temp Pulse Resp BP Pulse Ox 97.8 F 86 18 135/98 H 94 03/29/17 12:00 03/29/17 12:00 03/29/17 12:00 03/29/17 12:00 03/29/17 12:00 Oxygen Flow Rate [At REST on 4.5 Room Air] Oxygen Flow Rate [AMBULATION 4 with Oxygen] Oxygen Flow Rate 4 Oxygen Delivery Method Nasal Cannula Weight: 259 lb 11.272 oz Body Mass Index (BMI) 46.5 Intake and Output for Last 24 Hours 03/27/17 03/28/17 03/29/17 23:59 23:59 23:59 Intake Total 2025 / 2025 560 / 560 Output Total 650 / 650 Balance 1375 / 1375 560 / 560 Laboratory Tests Past 24 Hrs 03/29/17 03/29/17 06:00 06:00 WBC 11.6 H RBC 3.54 L Hgb 8.9 L Hct 33.9 L MCV 95.8 MCH 25.1 L MCHC 26.3 L RDW 19.9 H RDW Differential 70.2 H Plt Count 366 MPV 9.6 Immature Gran % (Auto) 0.300 Neut % (Auto) 83.5 H Lymph % (Auto) 8.5 L [place] % (Auto) 6.6 Eos % (Auto) 0.8 Baso % (Auto) 0.3 Absolute Neuts (auto) 9.7 H Absolute Lymphs (auto) 0.98 Total Counted Not Reportable Differential Comment SCANNED Polychromasia RARE Anisocytosis 1+ Sodium 138 Potassium 4.3 Chloride 90 L Carbon Dioxide 40.0 H Anion Gap 8 BUN 31 H Creatinine 1.21 H Estim Creat Clear Calc 35.19 Est GFR (MDRD) Af Amer 57 L Est GFR (MDRD) Non-Af 47 L BUN/Creatinine Ratio 25.6 H Glucose 136 H Calcium 8.5 Magnesium 1.9 POC Glucose 03/29/17 03/29/17 03/28/17 12:05 06:56 21:18 POC Glucose 188 H 138 H 241 H 03/28/17 16:30 POC Glucose 259 H Assessment/Plan Hospitalist note: I am seeing this patient in conjunction with Shemar Butcher x. I independently seen and examined the patient. Progress note above and I agree with above treatment plan. Patient remained with exertional shortness of breath and palpitation upon exertion, stable shortness of breath at rest at 4.5 L of oxygen. Denies any complaints. Other vital signs are stable. - Physical Exam General: Alert, Oriented x3, Cooperative, mildly short of breath. HEENT: Atraumatic, PERRLA, EOMI. Neck: Supple, No JVD, Negative Carotid Bruits, Trachea Midline, Thyroid Normal. Lungs: Decreased breath sounds bilateral, otherwise clear, no rhonchi, No wheeze, No rales. Cardiovascular: Regular rate, Regular Rhythm, Normal S1, Normal S2, PMI Normal. Abdomen: Bowel Sounds Present, Soft, Non Tender, Non-Distended, No Hepato-splenomegaly. Extremities: No clubbing, No cyanosis, No edema Skin: No rashes, No breakdown Neurological: Neuro grossly intact Assessment and plan: #1 worsening shortness of breath: Multifactorial, mainly secondary to cor pulmonale which is complicated by chronic diastolic congestive heart failure. Also, she does have COPD, pulmonary hypertension and lung fibrosis as well as moderate to severe aortic stenosis. Her symptoms are mainly exertional. She is on bronchodilators and oral prednisone as well as oral Lasix. 2D echocardiogram revealed normal ejection fraction of 60%, calculated aortic valve area is 0.95 cm?, no change compared to previous studies. Plan to continue same treatment. #2 Chronic diastolic CHF: BMP is normal. She is on oral Lasix. She is on metoprolol as well. #3 chronic respiratory failure: Multifactorial as above. Today, she is on 4.5 L of oxygen, pulse ox has been around 94%. Plan as above. #4 other chronic medical problems: Stable, continue current medications as above. This note was generated with [email or web address] software. It may contain incorrect words, spelling, and punctuation that were not noted in checking the note before signing. Code Visit Inpatient E&M: 75370 Subs Hosp L2
--- NOTE | 2017-03-29 12:05 | PN_ITS ---
<Shemar Butcher - Last Filed: 03/29/17 11:55> Patient Problems: Active and Suspected Problems (Last Updated 03/29/17 @ 09:43 by Maureen Marshall , ADRIANA-C) Acute on chronic respiratory failure with hypoxia and hypercapnia (Acute) Subjective: Patient continues to have no shortness of breath at rest but continues to be very short of breath with even short episodes of exertion despite 6 L of oxygen via nasal cannula with desaturations into the 80s and slow recovery. She denies chest pains or palpitations, dizziness or lightheadedness. She is arranging to have a concentrator that will be able to provide more than 4 L/min at home. She is no fevers or chills. She has no cough, she has had no change in the swelling of her lower extremities, which remains mild reportedly similar to what she chronically has. She underwent an echocardiogram today which demonstrated no change since her prior echo. - Physical Exam General: Alert, Oriented x3, Cooperative HEENT: Atraumatic, PERRLA, EOMI, Normocephalic Neck: Supple, No JVD, Negative Carotid Bruits Lungs: Diminished - Her lungs continue to be severely diminished throughout all mckeon however today there is somewhat more air movement in the bilateral bases and is more of a fine crackle present, she appears to be moving more air in her lower mckeon today., Rales Cardiovascular: Regular rate, No murmurs Abdomen: Bowel Sounds Present, Soft, Non Tender Extremities: No edema, Capillary Refill Less than 3 Seconds Skin: No rashes, No breakdown Musculoskeletal: No Tenderness to Palpation of Joints or Extremities Neurological: Cranial nerves II-XII grossly intact Psych/Mental Status: Normal Affect, Appropriate Vital Signs Temp Pulse Resp BP Pulse Ox 98.6 F 81 18 120/56 L 84 03/29/17 10:00 03/29/17 10:52 03/29/17 10:52 03/29/17 10:03/29/17 11:05 Oxygen Flow Rate [At REST on 4.5 Room Air] Oxygen Flow Rate [AMBULATION 4 with Oxygen] Oxygen Flow Rate 4.5 Oxygen Delivery Method Nasal Cannula Weight: 117.8 kg Body Mass Index (BMI) 46.5 Intake and Output for Last 24 Hours 03/27/17 03/28/17 03/29/17 23:59 23:59 23:59 Intake Total 2024 0 / 0 Output Total 650 / 650 Balance 1375 / 1375 0 / 0 Laboratory Tests Past 24 Hrs 03/29/17 03/29/17 06:00 06:00 WBC 11.6 H RBC 3.54 L Hgb 8.9 L Hct 33.9 L MCV 95.8 MCH 25.1 L MCHC 26.3 L RDW 19.9 H RDW Differential 70.2 H Plt Count 366 MPV 9.6 Immature Gran % (Auto) 0.300 Neut % (Auto) 83.5 H Lymph % (Auto) 8.5 L Patrick % (Auto) 6.6 Eos % (Auto) 0.8 Baso % (Auto) 0.3 Absolute Neuts (auto) 9.7 H Absolute Lymphs (auto) 0.98 Total Counted Not Reportable Differential Comment SCANNED Polychromasia RARE Anisocytosis 1+ Sodium 138 Potassium 4.3 Chloride 90 L Carbon Dioxide 40.0 H Anion Gap 8 BUN 31 H Creatinine 1.21 H Estim Creat Clear Calc 35.19 Est GFR (MDRD) Af Amer 57 L Est GFR (MDRD) Non-Af 47 L BUN/Creatinine Ratio 25.6 H Glucose 136 H Calcium 8.5 Magnesium 1.9 POC Glucose 03/29/17 03/28/17 03/28/17 06:56 21:18 16:30 POC Glucose 138 H 241 H 259 H Assessment/Plan Active and Suspected Problems (Last Updated 03/29/17 @ 09:43 by Maureen Marshall , COOK MAYONNAISE-C) Acute on chronic respiratory failure with hypoxia and hypercapnia (Acute) 1. Cor pulmonale-with chronic hypoxic respiratory failure, complicated by diastolic heart failure, COPD, pulmonary hypertension, pulmonary fibrosis, cysts moderate to severe aortic stenosis. Patient feels the same - stable at rest, dyspneic with short exertion. Her lungs sounds somewhat more expanded today on exam, but still very diminished overall. Pulmonology is following. Continue aerosols and prednisone taper. BiPAP at night. -A repeat echo shows no change since prior. -AV area is 0.95cm2 2. Chronic diastolic CHF - BNP normal. Creatinine up somewhat. Transition to p.o. Lasix. Positive orthopnea. Weight is actually down 8 pounds over last 3 weeks. Echo unchanged. 3. Indeterminate troponin -second troponin trending down. No chest pain. Negative telemetry. 4. DMt2 - SSI 5. HTN - stable 6. Mod-severe aortic stenosis - follows Dr. Xavier and a surgeon at [facility] for this, has been told she is not ready for surgery. Echo shows no change. 7. HLD - statin 8. Chronic normocytic anemia - trend. Continue PO iron. 9. Anxiety - trazodone and lexapro DVT ppx: lovenox This patient was seen by Shemar Butcher PA-C under the supervision of Doctor Rubén. <David Montana E - Last Filed: 03/29/17 15:00> - Physical Exam Vital Signs Temp Pulse Resp BP Pulse Ox 97.8 F 86 18 135/98 H 94 03/29/17 12:00 03/29/17 12:00 03/29/17 12:00 03/29/17 12:00 03/29/17 12:00 Oxygen Flow Rate [At REST on 4.5 Room Air] Oxygen Flow Rate [AMBULATION 4 with Oxygen] Oxygen Flow Rate 4 Oxygen Delivery Method Nasal Cannula Weight: 259 lb 11.272 oz Body Mass Index (BMI) 46.5 Intake and Output for Last 24 Hours 03/27/17 03/28/17 03/29/17 23:59 23:59 23:59 Intake Total 2025 / 2025 560 / 560 Output Total 650 / 650 Balance 1375 / 1375 560 / 560 Laboratory Tests Past 24 Hrs 03/29/17 03/29/17 06:00 06:00 WBC 11.6 H RBC 3.54 L Hgb 8.9 L Hct 33.9 L MCV 95.8 MCH 25.1 L MCHC 26.3 L RDW 19.9 H RDW Differential 70.2 H Plt Count 366 MPV 9.6 Immature Gran % (Auto) 0.300 Neut % (Auto) 83.5 H Lymph % (Auto) 8.5 L Patrick % (Auto) 6.6 Eos % (Auto) 0.8 Baso % (Auto) 0.3 Absolute Neuts (auto) 9.7 H Absolute Lymphs (auto) 0.98 Total Counted Not Reportable Differential Comment SCANNED Polychromasia RARE Anisocytosis 1+ Sodium 138 Potassium 4.3 Chloride 90 L Carbon Dioxide 40.0 H Anion Gap 8 BUN 31 H Creatinine 1.21 H Estim Creat Clear Calc 35.19 Est GFR (MDRD) Af Amer 57 L Est GFR (MDRD) Non-Af 47 L BUN/Creatinine Ratio 25.6 H Glucose 136 H Calcium 8.5 Magnesium 1.9 POC Glucose 03/29/17 03/29/17 03/28/17 12:05 06:56 21:18 POC Glucose 188 H 138 H 241 H 03/28/17 16:30 POC Glucose 259 H Assessment/Plan Hospitalist note: I am seeing this patient in conjunction with Shemar Butcher x. I independently seen and examined the patient. Progress note above and I agree with above treatment plan. Patient remained with exertional shortness of breath and palpitation upon exertion, stable shortness of breath at rest at 4.5 L of oxygen. Denies any complaints. Other vital signs are stable. - Physical Exam General: Alert, Oriented x3, Cooperative, mildly short of breath. HEENT: Atraumatic, PERRLA, EOMI. Neck: Supple, No JVD, Negative Carotid Bruits, Trachea Midline, Thyroid Normal. Lungs: Decreased breath sounds bilateral, otherwise clear, no rhonchi, No wheeze , No rales. Cardiovascular: Regular rate, Regular Rhythm, Normal S1, Normal S2, PMI Normal. Abdomen: Bowel Sounds Present, Soft, Non Tender, Non-Distended, No Hepato- splenomegaly. Extremities: No clubbing, No cyanosis, No edema Skin: No rashes, No breakdown Neurological: Neuro grossly intact Assessment and plan: #1 worsening shortness of breath: Multifactorial, mainly secondary to cor pulmonale which is complicated by chronic diastolic congestive heart failure. Also, she does have COPD, pulmonary hypertension and lung fibrosis as well as moderate to severe aortic stenosis. Her symptoms are mainly exertional. She is on bronchodilators and oral prednisone as well as oral Lasix. 2D echocardiogram revealed normal ejection fraction of 60%, calculated aortic valve area is 0.95 cm?, no change compared to previous studies. Plan to continue same treatment. #2 Chronic diastolic CHF: BMP is normal. She is on oral Lasix. She is on metoprolol as well. #3 chronic respiratory failure: Multifactorial as above. Today, she is on 4.5 L of oxygen, pulse ox has been around 94%. Plan as above. #4 other chronic medical problems: Stable, continue current medications as above. This note was generated with [employer]ation software. It may contain incorrect words, spelling, and punctuation that were not noted in checking the note before signing. Code Visit Inpatient E&M: 45496 Subs Hosp L2
[2017-03-29 12:16] LABS: Bedside Glucose 188 mg/dL (70-110)
--- NOTE | 2017-03-29 12:32 | NURSING ---
SPOKE TO Juan APONTE ABOUT EVALUATING PATIENT FOR PULMONARY EMBOLISM DUE TO NOT KEEPING OXYGEN UP WHEN AMBULATING. NO NEW ORDERS GIVEN.
[2017-03-29 15:26] LABS: Bedside Glucose 150 mg/dL (70-110)
[2017-03-29] MEDS: Atorvastatin Calcium 10 MG Tablet PO (21:38)
[2017-03-29 23:06] LABS: Bedside Glucose 122 mg/dL (70-110)
[2017-03-30] VITALS (10 sets, daily range): BP systolic 114–130; BP diastolic 51–65; PULSE 74–94; RESP 12–18; TEMP 36.7; O2SAT 86–95
[2017-03-30] MEDS: Heparin Injection 5,000 UNITS/ML Syringe 5000 UNITS SC (05:32)
[2017-03-30 07:01] LABS: Bedside Glucose 141 mg/dL (70-110)
--- NOTE | 2017-03-30 07:07 | PCM.PROGNOTE ---
Subjective: The patient was seen and examined at the bedside this morning. Events from the last 24 hours have been reviewed. The patient is currently afebrile, hemodynamically stable and maintaining appropriate oxygen saturations on 4 L/min via nasal cannula. The patient's I's and O's are inaccurate. The patient is currently resting comfortably in her bedside recliner. She continues to report exertional shortness of breath, which is chronic and at her baseline. She denies the presence of a cough. Objective: The patient's most recent lab work, culture data and imaging studies have all been personally reviewed. Repeat echocardiogram completed March 29 revealed mild concentric LVH with an ejection fraction of 60%. Aortic valve stenosis is stable. - Physical Exam General: Alert, Oriented x3, Cooperative, No apparent distress HEENT: Atraumatic, PERRLA, Normocephalic Oral: Moist Mucosa, No Gingival or Mucosal Lesions/ Ulcerations Neck: Supple, No Nodes, Trachea Midline Lungs: Diminished, - - Bibasilar rales present Cardiovascular: Regular rate, Regular Rhythm, Normal S1, Normal S2, No murmurs Abdomen: Bowel Sounds Present, Soft, Non Tender, Obese Extremities: No clubbing, No cyanosis, Edema Skin: No rashes, No breakdown Musculoskeletal: No Tenderness to Palpation of Joints or Extremities, No Muscle Wasting Lymphatic: No Cervical, Supraclavicular, or Inguinal Adenopathy Neurological: Neuro grossly intact Psych/Mental Status: Normal Affect, Appropriate Vital Signs Temp Pulse Resp BP Pulse Ox 98.1 F 85 18 130/65 H 92 03/30/17 02:45 03/30/17 04:06 03/30/17 02:45 03/30/17 02:45 03/30/17 02:45 Oxygen Flow Rate [At REST on 4.5 Room Air] Oxygen Flow Rate [AMBULATION 4 with Oxygen] Oxygen Flow Rate 4 Oxygen Delivery Method Nasal Cannula Weight: 259 lb 11.272 oz Body Mass Index (BMI) 46.5 Intake and Output for Last 24 Hours 03/28/17 03/29/17 03/30/17 23:59 23:59 23:59 Intake Total 2024 / 2024 1480 / 1480 120 / 120 Output Total 650 / 650 Balance 1375 / 1375 1480 / 1480 120 / 120 POC Glucose 03/30/17 03/29/17 03/29/17 06:51 21:35 15:16 POC Glucose 141 H 122 H 150 H 03/29/17 03/29/17 12:05 06:56 POC Glucose 188 H 138 H Labs (Last 48 Hours) 03/28/17 03/28/17 03/28/17 06:05 11:25 16:30 WBC RBC Hgb Hct MCV MCH MCHC RDW RDW Differential Plt Count MPV Immature Gran % (Auto) Neut % (Auto) Lymph % (Auto) Mcculloch % (Auto) Eos % (Auto) Baso % (Auto) Absolute Neuts (auto) Absolute Lymphs (auto) Total Counted Differential Comment Polychromasia Anisocytosis Sodium 136 Potassium 4.7 Chloride 92 L Carbon Dioxide 38.0 H Anion Gap 6 BUN 22 H Creatinine 1.02 Estim Creat Clear Calc 41.75 Est GFR (MDRD) Af Amer 69 Est GFR (MDRD) Non-Af 57 L BUN/Creatinine Ratio 21.6 H Glucose 225 H Calcium 8.7 Magnesium POC Glucose 219 H 259 H 03/28/17 03/29/17 03/29/17 21:18 06:00 06:00 WBC 11.6 H RBC 3.54 L Hgb 8.9 L Hct 33.9 L MCV 95.8 MCH 25.1 L MCHC 26.3 L RDW 19.9 H RDW Differential 70.2 H Plt Count 366 MPV 9.6 Immature Gran % (Auto) 0.300 Neut % (Auto) 83.5 H Lymph % (Auto) 8.5 L [place] % (Auto) 6.6 Eos % (Auto) 0.8 Baso % (Auto) 0.3 Absolute Neuts (auto) 9.7 H Absolute Lymphs (auto) 0.98 Total Counted Not Reportable Differential Comment SCANNED Polychromasia RARE Anisocytosis 1+ Sodium 138 Potassium 4.3 Chloride 90 L Carbon Dioxide 40.0 H Anion Gap 8 BUN 31 H Creatinine 1.21 H Estim Creat Clear Calc 35.19 Est GFR (MDRD) Af Amer 57 L Est GFR (MDRD) Non-Af 47 L BUN/Creatinine Ratio 25.6 H Glucose 136 H Calcium 8.5 Magnesium 1.9 POC Glucose 241 H 03/29/17 03/29/17 03/29/17 06:56 12:05 15:16 WBC RBC Hgb Hct MCV MCH MCHC RDW RDW Differential Plt Count MPV Immature Gran % (Auto) Neut % (Auto) Lymph % (Auto) [place] % (Auto) Eos % (Auto) Baso % (Auto) Absolute Neuts (auto) Absolute Lymphs (auto) Total Counted Differential Comment Polychromasia Anisocytosis Sodium Potassium Chloride Carbon Dioxide Anion Gap BUN Creatinine Estim Creat Clear Calc Est GFR (MDRD) Af Amer Est GFR (MDRD) Non-Af BUN/Creatinine Ratio Glucose Calcium Magnesium POC Glucose 138 H 188 H 150 H 03/29/17 03/30/17 21:35 06:51 WBC RBC Hgb Hct MCV MCH MCHC RDW RDW Differential Plt Count MPV Immature Gran % (Auto) Neut % (Auto) Lymph % (Auto) [place] % (Auto) Eos % (Auto) Baso % (Auto) Absolute Neuts (auto) Absolute Lymphs (auto) Total Counted Differential Comment Polychromasia Anisocytosis Sodium Potassium Chloride Carbon Dioxide Anion Gap BUN Creatinine Estim Creat Clear Calc Est GFR (MDRD) Af Amer Est GFR (MDRD) Non-Af BUN/Creatinine Ratio Glucose Calcium Magnesium POC Glucose 122 H 141 H Clinical Impression(s) from Imaging Studies Chest X-Ray 03/27/17 14:21 IMPRESSION: Mild CHF and cardiomegaly. Electronically Signed: Jonah Conner MD at 14:52 EST Tel [phone], Service support , Assessment/Plan RECOMMENDATIONS 1. Wean oxygen supplementation to keep saturations 88-92%. 2. Encourage incentive spirometer 3. Increase activity as tolerated 4. Continue aerosols 5. Increase oxygen to 6L/nc with ambulation 6. Patient can follow-up in pulmonary clinic within 2 weeks of discharge 7. Patient will require a change in her oxygen concentrator at home to accommodate for increased oxygen demand of 6L with exertion IMPRESSIONS 1. Acute on chronic hypoxic and hypercapnic respiratory failure Clinical suspicion for cor pulmonale secondary to increased dietary salt intake. Patient has baseline oxygen requirement of 4 L per nasal cannula. She has been following with cardiothoracic surgery in anticipation of aortic valve surgery. Ambulatory pulse ox showed significant desaturation with exertion, requiring an increase in her baseline supplemental oxygen flow rate with exertion to 6 L/min. Her concentrator will need to be changed to higher flow on discharge through her DME. Continue diuretic regimen as ordered. Encourage incentive spirometer use 2. Baseline COPD without exacerbation Continue scheduled aerosol regimen supplemental oxygen. The patient should follow-up in the pulmonary medicine clinic within 2 weeks of her discharge with our nurse practitioner. 3. Moderate to severe aortic stenosis/hypertension/DM/chronic diastolic CHF/hyperlipidemia/anemia/anxiety Complicates care, management, recovery, and prognosis. Management per hospitalist, okay to continue home medications This note was generated with [email or web address] software. It may contain incorrect words, spelling, and punctuation that were not noted in checking the note before signing. Code Visit Inpatient E&M: 37799 Subs Hosp L2
[2017-03-30] MEDS: Ipratropium/Albuterol Sulfate 3 ML AMPUL.NEB INHALATION ×2 (07:18→10:58)
[2017-03-30] MEDS: Furosemide 40 MG Tablet PO (08:41)
[2017-03-30] MEDS: Escitalopram Oxalate 10 MG Tablet PO (08:41)
[2017-03-30] MEDS: Ferrous Sulfate 325 MG Tablet PO (08:41)
[2017-03-30] MEDS: Metoprolol Tartrate 50 MG Tablet PO (08:41)
[2017-03-30] MEDS: metFORMIN HCl 1,000 MG Tablet 1000 MG PO (08:41)
[2017-03-30 10:12] LABS: Anion Gap 4 (5-15); BUN 31 mg/dL (7-18); BUN/Creat Ratio 32.4 RATIO (10-20); Calcium,Total 8.5 mg/dL (8.5-10.1); Chloride 95 mmol/L (98-107); Creatinine, Serum 0.96 mg/dL (0.55-1.02); EST Glomerular Filtration Rate 62 mL/min (>60); Est Glom Filt Rate - Afr Amer 75 mL/min (>60); Estimated Creatinine Clearance 44.36 ml/min; Glucose 213 mg/dL (70-110); Potassium 4.2 mmol/L (3.5-5.1); Sodium Level 140 mmol/L (136-145)
[2017-03-30 11:46] LABS: Bedside Glucose 167 mg/dL (70-110)
--- NOTE | 2017-03-30 11:57 | PCM.DC ---
- Discharge Diagnoses Current Active Problems: Current Active and Chronic Problems (Last Reviewed 03/29/17 @ 15:08 by SHOLA Buckley) Acute on chronic respiratory failure with hypoxia and hypercapnia (Chronic) You will use the following diet at home:: Calorie/Carbohydrate Controlled (specify 1200, 1400, etc) - 1800 edilma / day, Cardiac - <2 grams sodium per day Your food should be the consistency of: Regular Your liquids should be the consistency of: Regular/Thin Discharge Activity: Return to Normal Activity, - - use O2 as directed, CPAP every night. Allergies/Adverse Reactions: Allergies No Known Allergies Allergy (Verified 03/27/17 14:13) Medications to take at Discharge Metformin HCl [Glucophage] 1,000 mg PO BIDCM 01/15/14 Simvastatin [Zocor] 20 mg PO QHS 01/15/14 Ferrous Sulfate 325 mg PO BID 04/09/14 Escitalopram Oxalate [Lexapro] 10 mg PO DAILY 06/29/15 Metoprolol Tartrate [Lopressor (beta lorena)] 50 mg PO BID 06/29/15 Trazodone HCl [Desyrel] 100 mg PO QHS PRN PRN 06/29/15 Albuterol Inhaler [Ventolin Hfa] 2 puff INHALATION Q4H PRN PRN #2 inhaler 10/02/15 Furosemide [Lasix] 80 mg PO BID 05/27/16 Budesonide/Formoterol Fumarate [Symbicort 160-4.5 Mcg Inhaler] 2 puff IH BID 03/27/17 Prednisone 10 mg PO DAILY #18 tab 03/30/17 The following prescriptions were given: Prednisone 10 mg PO DAILY #18 tab Primary Care Physician: Vic Chen MD [Primary Care Provider] - Please follow up with your Primary Care Physician in: 1-2 weeks Please Follow Up With: Rajesh Dixon MD When: 2 weeks Proposed Discharge Date: 03/30/17
--- NOTE | 2017-03-30 13:31 | PCM.DC.SUM ---
<Shemar Butcher - Last Filed: 03/30/17 13:31> Discharge Date and Diagnosis Date of Admission: 03/27/17 Date of Discharge: 03/30/17 - Primary Discharge Diagnosis Acute Cor pulmonale Acute COPD exacerbation Chronic hypoxic respiratory failure Chronic diastolic CHF Pulmonary HTN Pulmonary Fibrosis Severe aortic stenosis - Secondary Discharge Diagnosis Chronic Problems (Last Reviewed 03/29/17 @ 15:08 by Angeline Acosta NP-C) Nonrheumatic aortic (valve) stenosis (Chronic) Left atrial enlargement (Chronic) Hypersomnia (Chronic) Anemia (Chronic) Palpitations (Chronic) Carotid artery stenosis (Chronic) Lumbago (Chronic) Chronic hypoxemic respiratory failure (Chronic) Pulmonary fibrosis (Chronic) 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 3 severe COPD by GOLD classification (Chronic) Aortic stenosis (Chronic) Moderate to severe with valve area 1.1 on cardiac catheterization in 2013 COPD (Chronic) Diabetes mellitus type II (Chronic) History of GI bleeding (Chronic) Status post EGD and colonoscopy by Dr. 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 Echo: Interpretation Summary Normal LV size. Mild concentric left ventricular hypertrophy. Left ventricular systolic function is normal. The estimated ejection fraction is 60 %. Moderate focal aortic valve calcification. Mean aortic valve gradient 27 mmHg. Calculated aortic valve area (continuity equation) is .95 cm2. Compared to prior study, there is no significant change. Zack/Brown - pulm Operations: None Procedures: 2-D Echocardiogram Summary of Care Provided: Physical exam on day of discharge: General: Resting comfortably NAD Psych: A/Ox3 normal affect HEENT: PEARRLA AT NC Neck: Supple NT CV: RRR no m/t/r/g/h Resp: Severely diminished throughout, no crackles appreciated today. Abd: [id number] Soft NT no guarding or rigidity Ext: DP2+= no edema Skin: W/D normal turgor Lymph/Heme: No active bleeding or adenopathy Neuro: CN2-12 intact Hospital course: The patient is a 66 year old F with a history of chronic hypoxic respiratory failure on 4 L of oxygen all the time with BiPAP at night, pulmonary fibrosis, pulmonary hypertension, COPD, diastolic heart failure, and severe aortic stenosis who presented to the emergency room with increased shortness of breath with exertion after being evaluated at the pulmonology office. Chest x-ray was done which showed mild CHF and cardiomegaly. CBC had a mild leukocytosis however she was afebrile with a rare nonproductive cough. She had severely diminished lung sounds on exam and mild lower extremity edema. BNP was checked which was negative. She had an indeterminate troponin. No changes on EKG. She was admitted for suspected acute cor pulmonale and pulmonology was consulted. She had significant oxygen desaturation with ambulation into the low 80s. She was given IV Lasix and oral prednisone, advised to use incentive spirometer, and given breathing treatments. There is a concern that her aortic stenosis might be worsening as she is currently being seen by Dr. Xavier and a CT surgeon at the [facility] but has been told that she is not ready for an aortic valve replacement yet. An echocardiogram was obtained to see if there is any change indicating a worsening of her aortic stenosis however it appeared unchanged from the prior study. She had a very slow recovery in the hospital. She continued to have significant desaturations with ambulation and it was advised that she increase her levels of oxygen to 6 L/min when walking. She will complete a steroid taper and return to her home dose of Lasix 40 p.o. twice daily. She will need to follow-up with pulmonology office in 2 weeks. She is discharged home in stable condition. This patient was seen by Shemar Butcher PA-C under the supervision of Doctor Montana. [] Discharge Diet: Low fat/ Low Cholesterol, 1800 Calorie Control Diet, 2000 mg Sodium Diet Discharge Activity: Return to Normal Activity, - - use O2 as directed, CPAP every night. Home Medications: Medications to take at Discharge Metformin HCl [Glucophage] 1,000 mg PO BIDCM 01/15/14 Simvastatin [Zocor] 20 mg PO QHS 01/15/14 Ferrous Sulfate 325 mg PO BID 04/09/14 Escitalopram Oxalate [Lexapro] 10 mg PO DAILY 06/29/15 Metoprolol Tartrate [Lopressor (beta lorena)] 50 mg PO BID 06/29/15 Trazodone HCl [Desyrel] 100 mg PO QHS PRN PRN 06/29/15 Albuterol Inhaler [Ventolin Hfa] 2 puff INHALATION Q4H PRN PRN #2 inhaler 10/02/15 Furosemide [Lasix] 80 mg PO BID 05/27/16 Budesonide/Formoterol Fumarate [Symbicort 160-4.5 Mcg Inhaler] 2 puff IH BID 03/27/17 Prednisone 10 mg PO DAILY #18 tab 03/30/17 Following Prescrptions Were Given to Patient: Prednisone 10 mg PO DAILY #18 tab Primary Care Physician: Vic Chen MD [Primary Care Provider] - Please follow up with your Primary Care Physician in: 1-2 weeks Please Follow Up With: Rajesh Dixon MD When: 2 weeks Disposition: Home Minutes spent on discharge:: 40 Patient Condition:: Stable Meaningful Use Info Meaningful Use Diagnoses (Choose all that apply): None applicable <David Montana E - Last Filed: 03/30/17 14:45> Discharge Date and Diagnosis - Secondary Discharge Diagnosis Chronic Problems (Last Reviewed 03/29/17 @ 15:08 by Angeline Acosta [employer] OPERATOR-C) Nonrheumatic aortic (valve) stenosis (Chronic) Left atrial enlargement (Chronic) Hypersomnia (Chronic) Anemia (Chronic) Palpitations (Chronic) Carotid artery stenosis (Chronic) Lumbago (Chronic) Chronic hypoxemic respiratory failure (Chronic) Pulmonary fibrosis (Chronic) 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 3 severe COPD by GOLD classification (Chronic) Aortic stenosis (Chronic) Moderate to severe with valve area 1.1 on cardiac catheterization in 2013 COPD (Chronic) Diabetes mellitus type II (Chronic) History of GI bleeding (Chronic) Status post EGD and colonoscopy by Dr. 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 Electronically Signed: Jonah Conner MD at 14:52 EST Tel [phone], Service support , Summary of Care Provided: Hospitalist note: Discharge summary above reviewed as well as physical examination and I agree with above discharge plan. Patient was admitted because of worsening shortness of breath and palpitation upon activity, found to have acute cor pulmonale with possible acute COPD exacerbation in context of history of chronic diastolic CHF, pulmonary hypertension and severe aortic stenosis. She was treated with bronchodilators and diuretics. Patient symptoms did improve but she remained with complaints of worsening shortness of breath and palpitation upon ambulation and activity. There was a concern that she may have worsening severe aortic stenosis. 2D echocardiogram done and revealed no changes compared to previous echoes, surface area of the aortic valve is 0.95 cm?. She remained on 4 L of oxygen but with ambulation, she needed up to 6 L of oxygen. A chest x-ray showed findings consistent with mild bilateral pulmonary vascular congestion. Patient discharged home in a stable medical condition, discharged on the same medication that she was taking before admission including bronchodilators and diuretics, discharged on tapering course of prednisone, plan to follow-up with pulmonology in 2 weeks and follow-up with PCP in 1-2 weeks. . Minutes spent on discharge:: 33 Code Visit Inpatient E&M: 50967 Disch Hosp
--- NOTE | 2017-03-30 13:42 | DS.PCM_ITS ---
<Shemar Butcher - Last Filed: 03/30/17 13:31> Discharge Date and Diagnosis Date of Admission: 03/27/17 Date of Discharge: 03/30/17 - Primary Discharge Diagnosis Acute Cor pulmonale Acute COPD exacerbation Chronic hypoxic respiratory failure Chronic diastolic CHF Pulmonary HTN Pulmonary Fibrosis Severe aortic stenosis - Secondary Discharge Diagnosis Chronic Problems (Last Reviewed 03/29/17 @ 15:08 by Angeline Acosta NP-C) Nonrheumatic aortic (valve) stenosis (Chronic) Left atrial enlargement (Chronic) Hypersomnia (Chronic) Anemia (Chronic) Palpitations (Chronic) Carotid artery stenosis (Chronic) Lumbago (Chronic) Chronic hypoxemic respiratory failure (Chronic) Pulmonary fibrosis (Chronic) 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 3 severe COPD by GOLD classification (Chronic) Aortic stenosis (Chronic) Moderate to severe with valve area 1.1 on cardiac catheterization in 2013 COPD (Chronic) Diabetes mellitus type II (Chronic) History of GI bleeding (Chronic) Status post EGD and colonoscopy by Dr. 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 Echo: Interpretation Summary Normal LV size. Mild concentric left ventricular hypertrophy. Left ventricular systolic function is normal. The estimated ejection fraction is 60 %. Moderate focal aortic valve calcification. Mean aortic valve gradient 27 mmHg. Calculated aortic valve area (continuity equation) is .95 cm2. Compared to prior study, there is no significant change. Zack/Brown - pulm Operations: None Procedures: 2-D Echocardiogram Summary of Care Provided: Physical exam on day of discharge: General: Resting comfortably NAD Psych: A/Ox3 normal affect HEENT: PEARRLA AT NC Neck: Supple NT CV: RRR no m/t/r/g/h Resp: Severely diminished throughout, no crackles appreciated today. Abd: [id number] Soft NT no guarding or rigidity Ext: DP2+= no edema Skin: W/D normal turgor Lymph/Heme: No active bleeding or adenopathy Neuro: CN2-12 intact Hospital course: The patient is a 66 year old F with a history of chronic hypoxic respiratory failure on 4 L of oxygen all the time with BiPAP at night, pulmonary fibrosis, pulmonary hypertension, COPD, diastolic heart failure, and severe aortic stenosis who presented to the emergency room with increased shortness of breath with exertion after being evaluated at the pulmonology office. Chest x-ray was done which showed mild CHF and cardiomegaly. CBC had a mild leukocytosis however she was afebrile with a rare nonproductive cough. She had severely diminished lung sounds on exam and mild lower extremity edema. BNP was checked which was negative. She had an indeterminate troponin. No changes on EKG. She was admitted for suspected acute cor pulmonale and pulmonology was consulted. She had significant oxygen desaturation with ambulation into the low 80s. She was given IV Lasix and oral prednisone, advised to use incentive spirometer, and given breathing treatments. There is a concern that her aortic stenosis might be worsening as she is currently being seen by Dr. Xavier and a CT surgeon at the [facility] but has been told that she is not ready for an aortic valve replacement yet. An echocardiogram was obtained to see if there is any change indicating a worsening of her aortic stenosis however it appeared unchanged from the prior study. She had a very slow recovery in the hospital. She continued to have significant desaturations with ambulation and it was advised that she increase her levels of oxygen to 6 L/min when walking. She will complete a steroid taper and return to her home dose of Lasix 40 p.o. twice daily. She will need to follow-up with pulmonology office in 2 weeks. She is discharged home in stable condition. This patient was seen by Shemar Butcher PA-C under the supervision of Doctor Montana. [] Discharge Diet: Low fat/ Low Cholesterol, 1800 Calorie Control Diet, 2000 mg Sodium Diet Discharge Activity: Return to Normal Activity, - - use O2 as directed, CPAP every night. Home Medications: Medications to take at Discharge Metformin HCl [Glucophage] 1,000 mg PO BIDCM 01/15/14 Simvastatin [Zocor] 20 mg PO QHS 01/15/14 Ferrous Sulfate 325 mg PO BID 04/09/14 Escitalopram Oxalate [Lexapro] 10 mg PO DAILY 06/29/15 Metoprolol Tartrate [Lopressor (beta lorena)] 50 mg PO BID 06/29/15 Trazodone HCl [Desyrel] 100 mg PO QHS PRN PRN 06/29/15 Albuterol Inhaler [Ventolin Hfa] 2 puff INHALATION Q4H PRN PRN #2 inhaler Furosemide [Lasix] 80 mg PO BID 05/27/16 Budesonide/Formoterol Fumarate [Symbicort 160-4.5 Mcg Inhaler] 2 puff IH BID 01/02 Prednisone 10 mg PO DAILY #18 tab 03/30/17 Following Prescrptions Were Given to Patient: Prednisone 10 mg PO DAILY #18 tab Primary Care Physician: Vic Chen MD [Primary Care Provider] - Please follow up with your Primary Care Physician in: 1-2 weeks Please Follow Up With: Rajesh Dixon MD When: 2 weeks Disposition: Home Minutes spent on discharge:: 40 Patient Condition:: Stable Meaningful Use Info Meaningful Use Diagnoses (Choose all that apply): None applicable <David Montana E - Last Filed: 03/30/17 14:45> Discharge Date and Diagnosis - Secondary Discharge Diagnosis Chronic Problems (Last Reviewed 03/29/17 @ 15:08 by Angeline Acosta BELL RINGER-C) Nonrheumatic aortic (valve) stenosis (Chronic) Left atrial enlargement (Chronic) Hypersomnia (Chronic) Anemia (Chronic) Palpitations (Chronic) Carotid artery stenosis (Chronic) Lumbago (Chronic) Chronic hypoxemic respiratory failure (Chronic) Pulmonary fibrosis (Chronic) 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 3 severe COPD by GOLD classification (Chronic) Aortic stenosis (Chronic) Moderate to severe with valve area 1.1 on cardiac catheterization in 2013 COPD (Chronic) Diabetes mellitus type II (Chronic) History of GI bleeding (Chronic) Status post EGD and colonoscopy by Dr. 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 Electronically Signed: Jonah Conner MD at 14:52 EST Tel [phone], Service support , Summary of Care Provided: Hospitalist note: Discharge summary above reviewed as well as physical examination and I agree with above discharge plan. Patient was admitted because of worsening shortness of breath and palpitation upon activity, found to have acute cor pulmonale with possible acute COPD exacerbation in context of history of chronic diastolic CHF , pulmonary hypertension and severe aortic stenosis. She was treated with bronchodilators and diuretics. Patient symptoms did improve but she remained with complaints of worsening shortness of breath and palpitation upon ambulation and activity. There was a concern that she may have worsening severe aortic stenosis. 2D echocardiogram done and revealed no changes compared to previous echoes, surface area of the aortic valve is 0.95 cm?. She remained on 4 L of oxygen but with ambulation, she needed up to 6 L of oxygen. A chest x-ray showed findings consistent with mild bilateral pulmonary vascular congestion. Patient discharged home in a stable medical condition, discharged on the same medication that she was taking before admission including bronchodilators and diuretics, discharged on tapering course of prednisone, plan to follow-up with pulmonology in 2 weeks and follow-up with PCP in 1-2 weeks. . Minutes spent on discharge:: 33 Code Visit Inpatient E&M: [id number] Disch Hosp
== END 2017-03-30 13:24 | disposition home or self-care (01) | DRG 314 ==
LOC: ED 16:33 → PCU 16:39
PROVIDERS: Nurse Practitioner Family; Physician Assistant; Admitting Provider Internal Medicine; Emergency Provider Emergency Medicine; Family Provider Family Medicine; PCP Family Medicine; Visit Provider Hospitalist
DX: I27.81 Cor pulmonale (chronic) (principal); J96.21 Acute and chronic respiratory failure with hypoxia; J44.1 Chronic obstructive pulmonary disease with (acute) exacerbation; I50.32 Chronic diastolic (congestive) heart failure; I11.0 Hypertensive heart disease with heart failure; E11.9 Type 2 diabetes mellitus without complications; D64.9 Anemia, unspecified; Z68.42 Body mass index [BMI] 45.0-49.9, adult; J84.10 Pulmonary fibrosis, unspecified; Z99.81 Dependence on supplemental oxygen; E78.5 Hyperlipidemia, unspecified; I35.0 Nonrheumatic aortic (valve) stenosis; I27.20 Pulmonary hypertension, unspecified; F17.201 Nicotine dependence, unspecified, in remission; E66.9 Obesity, unspecified; Z79.84 Long term (current) use of oral hypoglycemic drugs; Z79.899 Other long term (current) drug therapy
CPT/HCPCS: 36415; 71045; 80048; 82962; 83735; 83880; 84484; 85025; 93005; 93306; 94640; 99285; 99406; Q9957; A4216; J1940

== ENCOUNTER 2017-04-24 15:27 | Inpatient (IN) | payer MEDICARE, OTHER, SELFPAY ==
[2017-04-24] VITALS (20 sets, daily range): BP systolic 114–181; BP diastolic 47–89; PULSE 76–137; RESP 14–31; TEMP 36.2–37.1; O2SAT 74–100; BMI 42.9; BMI 46.4
--- NOTE | 2017-04-24 15:37 | RAD_ITS ---
STUDY: X-RAY CHEST REASON FOR EXAM: Female, 66 years old. Shortness of breath. TECHNIQUE: Portable frontal COMPARISON: March 27, 2017 FINDINGS: There is perihilar fullness associated with indistinct pulmonary bronchovasculature and prominent interstitial markings. There is cardiomegaly present. Normal visualized aortic arch and descending thoracic aorta. There are diffuse degenerative changes of the visualized thoracic spine. Normal visualized ribs, clavicles, and shoulders. There is no demonstrated abnormality of the visualized soft tissue structures of the upper abdomen. RAD/Chest 1 View (Portable) IMPRESSION: Congestive heart failure. Electronically Signed: Robina Uribe MD at 16:23 EST Tel , Service support ,
--- NOTE | 2017-04-24 15:37 | EKG12_ITS ---
Test Reason : SOB Blood Pressure : / mmHG Vent. Rate : 131 BPM Atrial Rate : 131 BPM P-R Int : 128 ms QRS Dur : 136 ms QT Int : 340 ms P-R-T Axes : 065 101 018 degrees QTc Int : 502 ms Sinus tachycardia Right bundle branch block Abnormal ECG Confirmed by HARMAN GAMBOA, DEVIN ([id number]), news assignment editor MONA NGO ([id number] on 04/26/2017 2:18:24 PM Referred By: ROBERT Confirmed By:DEVIN HAMMER MD
[2017-04-24] MEDS: Ipratropium/Albuterol Sulfate 3 ML AMPUL.NEB INHALATION (15:46)
[2017-04-24] MEDS: 0.9% Normal Saline 1,000 ML 150 ML IV (15:59)
[2017-04-24] MEDS: MethylPREDNISolone 125 MG/2 ML Vial IV (15:59)
[2017-04-24] MEDS: Albuterol 2.5 MG/3 ML VIAL.NEB. INHALATION (16:02)
--- NOTE | 2017-04-24 16:06 | ED.DCSUM_ITS ---
- ER Visit Summary Date of Service: 04/24/17 Chief Complaint: [Shortness of breath] History of Present Illness: The patient is a 66 F [presents with shortness of breath that started yesterday. Patient states that started progressively and worsen. Patient normally wears 6 L of home O2 due to her history of COPD and CHF. Patient denies gaining any weight. She does have a slight cough. Cough is been nonproductive. Patient denied a fever however per EMS her temperature was 100.3. Patient denies any chest pain. Patient states that she has had off- and-on abdominal discomfort in the epigastric region for quite some time. She has not had any vomiting or diarrhea.] Physical Examination: [HEENT-PERRLA, EOMI. Cranial nerves II through XII grossly intact. TMs clear. Mucous membranes moist. No adenopathy. Cardiovascular-regular and tachycardic with a 3 out of 6 systolic ejection murmur Lungs-is tachypneic and mildly diaphoretic. Patient has diminished breath sounds bilaterally with some expiratory wheezes noted. Abdomen-normoactive bowel sounds, soft, nontender, no rebound or rigidity, no peritoneal signs. Extremities-intact ?4, normal range of motion, normal pulses, atraumatic]. Patient has trace edema both lower extremities and symmetric. Test Results: [EKG obtained on arrival showed a sinus tachycardia with a ventricular rate of 131 bpm with a right bundle branch block. When compared with prior EKG the right bundle branch block is chronic.] CBC with differential showed white count 11.9, hemoglobin 8.7, hematocrit 33, platelets 390. Chemistries showed a sodium 137, potassium 3.2, chloride 103, CO2 23, BUN 16, creatinine 1.34, glucose 89. Blood gas showed a pH of 7.33, CO2 of 104, bicarbonate 54, PaO2 of 140, satting 99%. Chest x-ray showed CHF. Influenza was negative. Lactate was 1.4. Emergency Department Course and Treatment: [Patient was started on BiPAP. Patient given Lasix 40 mg IV. She will start Levaquin 750 mill grams IV. Patient written for 40 mg once potassium chloride p.o.] Treatment Plan: [Will be admitted] Disposition: [Admit] Impression: [Jose Juan failure CHF exacerbation COPD exacerbation Chronic anemia] This note was generated with [employer] software. It may contain incorrect words, spelling, and punctuation that were not noted in review of the chart prior to signing ED Disposition - Plan for ED Patient: Chief Complaint: Shortness of Breath Referrals: Vic Chen MD [Primary Care Provider] -
[2017-04-24 16:20] LABS: Absolute Neutrophil Count 10.3 X10^3/uL (2.0-7.7); Basophil# 0.02 X10^3/uL; Basophil% 0.2 % (0-1); Eosinophil# 0.15 X10^3/uL; Eosinophils% 1.3 % (0-5); Hematocrit 33.4 % (37-47); Hemoglobin 8.7 g/dl (12.0-15.0); Lymphocyte % 5.9 % (19-41); Mean Corpuscular Hgb 25.6 pg (27.0-32.0); Mean Corpuscular Volume 98.2 fL (81-99); Mean Platelet Vol. 9.9 fl (6.2-12.0); Monocyte# 0.74 X10^3/uL; Monocyte% 6.2 % (0-10); Neutrophil # 10.25 X10^3/uL (2.7-7.7); Neutrophil % 85.7 % (47-70); Platelet Count 390 K/mm3 (150-450); RBC Distribution Width CV 17.5 % (11.6-14.6); RBC Distribution Width SD 62.8 fl (35.1-43.9); White Blood Count 11.9 K/mm3 (4.4-11.0)
[2017-04-24 16:24] LABS: Anion Gap 2 (5-15); BUN 16 mg/dL (7-18); BUN/Creat Ratio 15.7 RATIO (10-20); Calcium,Total 8.8 mg/dL (8.5-10.1); Chloride 92 mmol/L (98-107); Creatinine, Serum 1.02 mg/dL (0.55-1.02); EST Glomerular Filtration Rate 57 mL/min (>60); Est Glom Filt Rate - Afr Amer 69 mL/min (>60); Estimated Creatinine Clearance 45.58 ml/min; Glucose 202 mg/dL (74-106); Potassium 4.3 mmol/L (3.5-5.1); Sodium Level 139 mmol/L (136-145)
[2017-04-24 16:35] LABS: Lactic Acid 1.4 mmol/L (0.4-2.0)
[2017-04-24 16:36] LABS: POSITIVE COUNT NO; POSITIVE DIFFERENTIAL NO; POSITIVE MORPHOLOGY NO
[2017-04-24] MEDS: Furosemide 40 MG/4 ML Vial IV ×2 (16:53→22:05)
[2017-04-24 16:59] LABS: BNP,B-Type NATRIURETIC PEPTIDE 165.2 pg/mL (0-100)
--- NOTE | 2017-04-24 17:10 | PCM.HP.STD ---
Problem List (1) H/O hernia repair Status: Resolved (2) History of endoscopy Status: Resolved (3) Nonrheumatic aortic (valve) stenosis Status: Chronic (4) Left atrial enlargement Status: Chronic (5) Hypersomnia Status: Chronic (6) Anemia Status: Chronic (7) CVA (cerebral vascular accident) Status: Resolved (8) Palpitations Status: Chronic (9) Carotid artery stenosis Status: Chronic (10) Lumbago Status: Chronic (11) Chronic hypoxemic respiratory failure Status: Chronic (12) Pulmonary fibrosis Status: Chronic (13) Tobacco dependence in remission Status: Chronic (14) Stage 3 severe COPD by GOLD classification Status: Chronic (15) Aortic stenosis Status: Chronic Comment: Moderate to severe with valve area 1.1 on cardiac catheterization in 2013 (16) Diabetes mellitus type II Status: Chronic (17) History of GI bleeding Status: Resolved Comment: Status post EGD and colonoscopy by Dr. Blakcmon in 2011, suspected AV malformations (18) Pulmonary hypertension Status: Chronic Comment: With PA pressures 55 by cardiac catheterization (19) CHF (congestive heart failure) Status: Chronic (20) Hypertension Status: Chronic (21) HLD (hyperlipidemia) Status: Chronic (22) GI AVM (gastrointestinal arteriovenous vascular malformation) Status: Chronic (23) Acute on chronic respiratory failure with hypoxia and hypercapnia Status: Chronic History of Present Illness Date of Admission: 04/24/17 Chief Complaint: Shortness of breath The patient is a 66 year old F who presents to the emergency room with shortness of breath that began yesterday morning and increased today. Patient chronically wears 6 L nasal cannula continuously at home. She follows with Dr. Dixon on an outpatient basis. She also reports increase in lower extremity edema. She denies associated fever, chills. She states she has a chronic nonproductive cough which has not increased. Complains of mild postnasal drainage. Denies chest pain, dizziness, palpitations. Patient states she had difficulty taking in food or drink due to severity of shortness of breath. Denies recent illness. Denies GI/ complaints. She states she has had nausea for some time and poor appetite. Her past medical history includes chronic respiratory failure with hypoxia and hypercapnia, stage III severe COPD, type 2 diabetes mellitus, pulmonary hypertension, chronic diastolic CHF, hyperlipidemia, history of GI bleed with AVM, history of tobacco use, pulmonary fibrosis, moderate to severe aortic stenosis, anxiety, depression, chronic anemia. Patient was recently admitted 03/27/17 through 03/30/17 for acute cor pulmonale. Past Medical History Past Medical History (Chronic Problems): Chronic Problems (Last Reviewed 03/29/17 @ 15:08 by Angeline Acosta NP-C) Nonrheumatic aortic (valve) stenosis (Chronic) Left atrial enlargement (Chronic) Hypersomnia (Chronic) Anemia (Chronic) Palpitations (Chronic) Carotid artery stenosis (Chronic) Lumbago (Chronic) Chronic hypoxemic respiratory failure (Chronic) Pulmonary fibrosis (Chronic) 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 3 severe COPD by GOLD classification (Chronic) Aortic stenosis (Chronic) Moderate to severe with valve area 1.1 on cardiac catheterization in 2013 Diabetes mellitus type II (Chronic) Pulmonary hypertension (Chronic) With PA pressures 55 by cardiac catheterization CHF (congestive heart failure) (Chronic) Hypertension (Chronic) HLD (hyperlipidemia) (Chronic) 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) Acute on chronic respiratory failure with hypoxia and hypercapnia (Chronic) Allergies No Known Allergies Allergy (Verified 03/27/17 14:13) Home Medications: Ambulatory Orders Medication Instructions Recorded Metformin HCl [Glucophage] 1,000 mg PO BIDCM 01/15/14 Simvastatin [Zocor] 20 mg PO QHS 01/15/14 Ferrous Sulfate 325 mg PO BID 04/09/14 Escitalopram Oxalate [Lexapro] 10 mg PO DAILY 06/29/15 Metoprolol Tartrate [Lopressor 50 mg PO BID 06/29/15 (beta lorena)] Trazodone HCl [Desyrel] 100 mg PO QHS PRN PRN 06/29/15 Albuterol Inhaler [Ventolin Hfa] 2 puff INHALATION Q4H PRN PRN #2 10/02/15 inhaler Furosemide [Lasix] 40 mg PO BID 05/27/16 Budesonide/Formoterol Fumarate 2 puff IH BID 03/27/17 [Symbicort 160-4.5 Mcg Inhaler] Fluticasone 0.05% [Flonase Nasal 1 spray NASAL BID 04/24/17 [place]] Surgical History: herniorrhaphy, hysterectomy, - Psychiatric History: No 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 Denies: Head Aches, Sinus Congestion, Sinus Drainage Cardiovascular: Denies: Chest Pain, Palpitations, Syncope Respiratory: Reports: Cough - Chronic, Shortness of breath at rest, Shortness of breath upon exertion Gastrointestinal: Reports: Nausea - Associated with meals. Denies: Abdominal Pain, Constipation, Diarrhea, Vomiting Genitourinary: Denies: Dysuria Musculoskeletal: Denies: Joint Pain, Joint Tenderness Skin: Reports: - - Chronic lower extremity dryness, flaking.. Denies: Rash, Wounds Psychiatric: Denies: Anxiety, Depression, Homicidal Ideations, Suicidal Ideations Hematologic/ Lymphatic: Denies: Easy Bruising, Easy Bleeding VTE Information - Inpt Only VTE Present on Admission: No VTE Mechan Device Prophylaxis: None VTE Pharm Prophylaxis ordered?: Yes - Physical Exam General: Alert, Oriented x3, Cooperative, - - Noted respiratory distress HEENT: Atraumatic, PERRLA, EOMI, Normocephalic Oral: Dry Mucosa Neck: Supple, No JVD, Negative Carotid Bruits Lungs: Clear to auscultation, Diminished Cardiovascular: Regular rate, Regular Rhythm, Normal S1, Normal S2, No murmurs Abdomen: Bowel Sounds Present, Soft, Non Tender, Non-Distended, Obese Extremities: No clubbing, No cyanosis, Capillary Refill Less than 3 Seconds, Edema - BLLE Skin: - - BLLE redness, dry/flaking skin Musculoskeletal: No Tenderness to Palpation of Joints or Extremities Neurological: Cranial nerves II-XII grossly intact, Neuro grossly intact Psych/Mental Status: Normal Affect, Appropriate Vital Signs Temp Pulse Resp BP Pulse Ox 97.1 F L 109 H 24 H 117/62 94 04/24/17 15:27 04/24/17 17:05 04/24/17 17:05 04/24/17 17:05 04/24/17 17:05 Oxygen Flow Rate 15 Oxygen Delivery Method Bi-pap Weight: 113.398 kg Body Mass Index (BMI) 42.9 Microbiology Past 72 Hours 04/24/17 15:56 Influenza Types A,B Direct FA (TESS) - Final Mucosa - Nasopharyngeal Laboratory Tests Past 24 Hrs 04/24/17 04/24/17 04/24/17 15:35 15:35 15:35 WBC 11.9 H RBC 3.40 L Hgb 8.7 L Hct 33.4 L MCV 98.2 MCH 25.6 L MCHC 26.0 L RDW 17.5 H RDW Differential 62.8 H Plt Count 390 MPV 9.9 Immature Gran % (Auto) 0.700 Neut % (Auto) 85.7 H Lymph % (Auto) 5.9 L [place] % (Auto) 6.2 Eos % (Auto) 1.3 Baso % (Auto) 0.2 Absolute Neuts (auto) 10.3 H Absolute Lymphs (auto) 0.70 L Total Counted Not Reportable Sodium 139 Potassium 4.3 Chloride 92 L Carbon Dioxide 45.0 H Anion Gap 2 L BUN 16 Creatinine 1.02 Estim Creat Clear Calc 45.58 Est GFR (MDRD) Af Amer 69 Est GFR (MDRD) Non-Af 57 L BUN/Creatinine Ratio 15.7 Glucose 202 H Lactic Acid Calcium 8.8 Troponin I 0.07 H B-Natriuretic Peptide 165.2 H 04/24/17 15:50 WBC RBC Hgb Hct MCV MCH MCHC RDW RDW Differential Plt Count MPV Immature Gran % (Auto) Neut % (Auto) Lymph % (Auto) [place] % (Auto) Eos % (Auto) Baso % (Auto) Absolute Neuts (auto) Absolute Lymphs (auto) Total Counted Sodium Potassium Chloride Carbon Dioxide Anion Gap BUN Creatinine Estim Creat Clear Calc Est GFR (MDRD) Af Amer Est GFR (MDRD) Non-Af BUN/Creatinine Ratio Glucose Lactic Acid 1.4 Calcium Troponin I B-Natriuretic Peptide Assessment/Plan 1. Acute on chronic combined hypoxic and hypercapnic respiratory failure-suspect secondary to a combination of CHF and COPD. Continue BiPAP FiO2 40%. Wean as tolerated to maintain O2 at or above 90%. 2. Acute on chronic COPD exacerbation-mild leukocytosis, WBC 11.9. Temp of 100.3 and EMS. Patient denies recent illness. Denies fever, chills. Denies URI symptoms. Patient received IV Levaquin and ED. IV Solu-Medrol. Albuterol DuoNeb aerosols. Continue BiPAP. Wean as tolerated to maintain O2 at or above 90%. Patient wears 6 L nasal cannula at baseline. Incentive spirometry. Negative for influenza. Low suspicion for infectious etiology. Consult Dr. Dixon. 3. Acute on chronic diastolic CHF-chest x-ray consistent with CHF. Patient reports increase in lower extremity edema. Denies significant weight gain. BNP mildly elevated, 165. Echocardiogram 03/27/2017 showed EF of 60%, mean aortic valve gradient 27 mmHg, no change compared to prior study. Patient received IV Lasix ?1 and ED. Continue IV Lasix. I&O. Daily weight. 4. Moderate to severe aortic stenosis-follows with Dr. Xavier. Has been evaluated by surgery and at [facility]. Apparently patient has been told she has not yet ready for surgical intervention. 5. Type 2 diabetes mellitus-hold oral regimen. ADA diet. Accu-Cheks before meals at bedtime with sliding scale insulin. Hemoglobin A1c in January 2017 5.1%. 6. Hypertension-stable, continue home metoprolol regimen. 7. Hyperlipidemia-continue statin. 8. Chronic normocytic anemia-stable compared to previous, monitor CBC. Patient has history of GI bleed with AVM. Denies blood per rectum. Continue iron supplementation. 9. History of tobacco use-quit fairly recently. Encouraged continued cessation. 10. Anxiety/depression-continue trazodone, Lexapro. DVT prophylaxis-Lovenox subcu. This patient was seen by SHOLA Garcia under the supervision of Dr. Mckeon.
--- NOTE | 2017-04-24 19:47 | CPS ---
results of test given to dr. bishop.
[2017-04-24 20:35] LABS: D-Dimer Quantitative (DVT/PE) 0.53 FEU/ug/m (0.27-0.49)
[2017-04-24] MEDS: Atorvastatin Calcium 10 MG Tablet PO (22:04)
[2017-04-24] MEDS: Metoprolol Tartrate 50 MG Tablet PO (22:04)
[2017-04-24] MEDS: 0.9% NaCl Peripheral Flush Adult/Peds IV (22:11)
[2017-04-24 22:37] LABS: Bedside Glucose 234 mg/dL (70-110)
[2017-04-25] VITALS (34 sets, daily range): BP systolic 101–129; BP diastolic 42–91; PULSE 75–114; RESP 14–26; TEMP 36.4–37.2; O2SAT 84–98
[2017-04-25] MEDS: Ipratropium/Albuterol Sulfate 3 ML AMPUL.NEB INHALATION ×7 (00:21→23:40)
[2017-04-25] MEDS: levoFLOXacin 750 MG Tablet PO (05:02)
[2017-04-25] MEDS: Furosemide 40 MG/4 ML Vial IV ×3 (05:02→22:11)
[2017-04-25] MEDS: 0.9% NaCl Peripheral Flush Adult/Peds IV ×2 (05:03→13:32)
[2017-04-25 06:01] LABS: Hematocrit 29.6 % (37-47); Hemoglobin 8.1 g/dl (12.0-15.0); Mean Corp Hgb Conc 27.4 g/gl (32-36); Mean Corpuscular Hgb 25.8 pg (27.0-32.0); Mean Corpuscular Volume 94.3 fL (81-99); Mean Platelet Vol. 9.7 fl (6.2-12.0); Platelet Count 354 K/mm3 (150-450); RBC Distribution Width CV 17.7 % (11.6-14.6); RBC Distribution Width SD 60.9 fl (35.1-43.9); Red Blood Count 3.14 M/mm3 (4.2-5.4); White Blood Count 10.1 K/mm3 (4.4-11.0)
[2017-04-25 06:01] LABS: Allen Test POS; Base Excess > 30 mmol/L (-2 to +2); Bicarbonate 55.4 mmol/L (22-26); Blood Gas Specimen Type ART; EPAP 8; FI02 40; IPAP 16; PO2 45 mmHG (75-100); RR 14; SITE L Radial; SO2 79 % (95-99); Time Given 1910; Total Carbon Dioxide > 50 mmol/L; pCO2 80.2 mmHg (35-45); pH 7.45 (7.35-7.45)
[2017-04-25 06:03] LABS: Scan Indicated on CBC? Y/N NO
--- NOTE | 2017-04-25 06:04 | NURSING ---
pT. REFUSING to wear bipap any longer for tonight. Wants her oxygen per nasal cannula 6L on. Notified RT of change to NC. Informed pt. if she becomes SOB or desats she will go back on bipap. Pt. verbalized understanding.
[2017-04-25 06:14] LABS: Anion Gap 6 (5-15); BUN 22 mg/dL (7-18); BUN/Creat Ratio 21.4 RATIO (10-20); Calcium,Total 8.7 mg/dL (8.5-10.1); Chloride 88 mmol/L (98-107); Creatinine, Serum 1.03 mg/dL (0.55-1.02); EST Glomerular Filtration Rate 57 mL/min (>60); Est Glom Filt Rate - Afr Amer 68 mL/min (>60); Estimated Creatinine Clearance 43.24 ml/min; Glucose 242 mg/dL (74-106); Potassium 4.5 mmol/L (3.5-5.1); Sodium Level 136 mmol/L (136-145)
[2017-04-25 06:21] LABS: Allen Test POS; Base Excess 29 mmol/L (-2 to +2); Bicarbonate 54.8 mmol/L (22-26); Blood Gas Specimen Type ART; EPAP 8; FI02 60; IPAP 16; PO2 140 mmHG (75-100); RR 14; SITE L Radial; SO2 99 % (95-99); Time Given 1625; Total Carbon Dioxide > 50 mmol/L; pH 7.33 (7.35-7.45)
--- NOTE | 2017-04-25 06:31 | NURSING ---
Pt. oxygen sat. down to 84% on 6L NC. Placed pt. back on bipap. Pt. cooperative. Will monitor.
[2017-04-25 06:56] LABS: Bedside Glucose 267 mg/dL (70-110)
--- NOTE | 2017-04-25 08:39 | PCM.CONS.GEN ---
Problem List (1) Acute on chronic respiratory failure with hypoxia and hypercapnia Status: Acute (2) CHF (congestive heart failure) Status: Chronic Qualifiers: Congestive heart failure type: diastolic Congestive heart failure chronicity: acute on chronic Qualified Code(s): I50.33 - Acute on chronic diastolic (congestive) heart failure (3) Aortic stenosis Status: Chronic Comment: Moderate to severe with valve area 1.1 on cardiac catheterization in 2013 (4) Left atrial enlargement Status: Chronic (5) Hypersomnia Status: Chronic (6) Anemia Status: Chronic (7) Carotid artery stenosis Status: Chronic (8) Lumbago Status: Chronic (9) Pulmonary fibrosis Status: Chronic (10) Tobacco dependence in remission Status: Chronic (11) Stage 3 severe COPD by GOLD classification Status: Chronic (12) Diabetes mellitus type II Status: Chronic (13) Pulmonary hypertension Status: Chronic Comment: With PA pressures 55 by cardiac catheterization (14) Hypertension Status: Chronic (15) HLD (hyperlipidemia) Status: Chronic (16) GI AVM (gastrointestinal arteriovenous vascular malformation) Status: Chronic Reason for Consult Date of Consultation: 04/25/17 Reason for Consultation: respiratory failure History of Present Illness: The patient is a 66 year old F well known to pulmonary medicine, with a past medical history as below who presented to the ED on 04/24/17 with complaints of sudden increase of dyspnea on exertion and increased lower extremity edema for the last 2 days with associated orthopnea. Patient was admitted at [facility] from 03/28 through 03/30/17 for acute on chronic CHF exacerbation/cor pulmonale with acute on chronic hypoxic and hypercarbic respiratory failure. The patient was treated with IV Lasix and prednisone, bronchodilators, and BiPAP therapy. Repeat echocardiogram was obtained at that time secondary to suspected worsening of her aortic stenosis, however appeared unchanged from the prior study. She was discharged on a steroid taper and Lasix 40 mg twice daily. Patient was educated on diet modification and CHF. She was asked to follow-up in the pulmonary clinic in 2 weeks, however this was not completed. She does have an appointment with KAILSAH Kruger in cardiology on May 02. The patient was hypertensive on arrival with a blood pressure of 181/89, pulse 137, respirations 31, afebrile at 97.1?F, and 74% on her chronic 6 L of oxygen. The patient was placed on BiPAP 16/8 at 100% FiO2. ABG was obtained after placement of BiPAP and showed a pH of 7.33, bicarb 54.8, PCO2 104, and PO2 140. FiO2 was decreased and repeat ABG showed pH 7.45, bicarb 55.4, CO2 of 80.2, PO2 45. EKG showed sinus tachycardia with a rate of 131 bpm, right bundle branch block, which is not new. Chest x-ray showed cardiomegaly and evidence of congestive heart failure. Initial CBC showed mild leukocytosis with a white count of 11,900. Hemoglobin was stable at 8.7 which is around patient's baseline. Chemistry was remarkable for a chloride of 92, serum bicarb of 45 (chronically elevated), BUN of 16 and creatinine 1.02, and elevated glucose of 202. Initial troponin 0.07 and BNP 165.2. D-dimer was elevated at 0.53, so a CTA of the chest was ordered but has not yet been obtained at the time of my evaluation. Blood cultures were obtained and are pending, influenza screen was negative. Respiratory panel obtained and pending. The patient was placed on bronchodilators, IV Lasix, Levaquin, and IV Solu-Medrol and admitted to the progressive care unit for further evaluation and management. Patient denied any increase in cough or sputum production, fever or chills, or chest pain. No hemoptysis, nausea, vomiting, or diarrhea. No recent sick contacts as she does not leave the house. She denied any changes in her weight, but admits she does not routinely weigh herself. She does have more edema than usual and has palpitations at times. She reports compliance with her Symbicort and Lasix at home. She has used her albuterol inhaler several times when short of breath with some relief. Patient reports she has been better at watching what she eats at home, states she has avoided high salt foods but did have a couple of chips the other day. She is trying to watch her fluid intake, but likes to drink a lot of coffee and water. Nursing staff reports they have tried to wean her off BiPAP this morning, however she desaturates into the low to mid 80s on 6 L of oxygen. She has a history of intolerance to noninvasive positive pressure therapy and intermittently wears it at home, but she seems to be managing okay for now. Past Medical History Past Medical History (Chronic Problems): Chronic Problems (Last Reviewed 03/29/17 @ 15:08 by Angeline Acosta NP-C) Nonrheumatic aortic (valve) stenosis (Chronic) Left atrial enlargement (Chronic) Hypersomnia (Chronic) Anemia (Chronic) Palpitations (Chronic) Carotid artery stenosis (Chronic) Lumbago (Chronic) Chronic hypoxemic respiratory failure (Chronic) Pulmonary fibrosis (Chronic) 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 3 severe COPD by GOLD classification (Chronic) Aortic stenosis (Chronic) Moderate to severe with valve area 1.1 on cardiac catheterization in 2013 Diabetes mellitus type II (Chronic) Pulmonary hypertension (Chronic) With PA pressures 55 by cardiac catheterization CHF (congestive heart failure) (Chronic) Hypertension (Chronic) HLD (hyperlipidemia) (Chronic) 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) Allergies No Known Allergies Allergy (Verified 03/27/17 14:13) Home Medications: Ambulatory Orders Medication Instructions Recorded Metformin HCl [Glucophage] 1,000 mg PO BIDCM 01/15/14 Simvastatin [Zocor] 20 mg PO QHS 01/15/14 Ferrous Sulfate 325 mg PO BID 04/09/14 Escitalopram Oxalate [Lexapro] 10 mg PO DAILY 06/29/15 Metoprolol Tartrate [Lopressor 50 mg PO BID 06/29/15 (beta lorena)] Trazodone HCl [Desyrel] 100 mg PO QHS PRN PRN 06/29/15 Albuterol Inhaler [Ventolin Hfa] 2 puff INHALATION Q4H PRN PRN #2 10/02/15 inhaler Furosemide [Lasix] 40 mg PO BID 05/27/16 Budesonide/Formoterol Fumarate 2 puff IH BID 03/27/17 [Symbicort 160-4.5 Mcg Inhaler] Fluticasone 0.05% [Flonase Nasal 1 spray NASAL BID 04/24/17 [place]] Surgical History: herniorrhaphy, hysterectomy, - Psychiatric History: No pertinent psych hx 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 Denies: Anorexia, Chills, Fever, Night Sweats, Malaise, Weight Change Eyes: Denies: Vision Change HEENT: Reports: Post Nasal Drip - mild. Denies: Difficulty Swallowing, Nasal Congestion, Sinus Congestion, Sinus Drainage, Sore Throat Cardiovascular: Reports: Edema, Orthopnea, Palpitations. Denies: Chest Pain, Chest Tightness, Light Headedness, Paroxysmal Noc. Dyspnea, Syncope Respiratory: Reports: Cough - chronic, no increase in frequency, - - Dyspneic with any activity. Denies: Hemoptysis, Pleuritic Pain, Sputum production, Wheezing Gastrointestinal: Denies: Abdominal Pain, Constipation, Diarrhea, Dyspepsia, Hematemesis, Hematochezia, Nausea, Melena, Vomiting Genitourinary: Reports: Frequency - on diuretic, Nocturia. Denies: Dysuria, Retention Musculoskeletal: Reports: Joint stiffness. Denies: Back Pain, Neck Pain Skin: Denies: Rash, Wounds Neurological: Denies: Balance problems, Change in Speech, Confusion, Difficulty swallowing, Focal weakness, Numbness, Tingling, Tremor, Seizures Psychiatric: Reports: Anxiety, Depression. Denies: Suicidal Ideations Endocrine: Denies: Change in Body Habitus, Polydipsia, Polyuria Hematologic/ Lymphatic: Reports: Anemia, Easy Bruising. Denies: Adenopathy, Easy Bleeding Subjective: The patient was seen and examined. She was just switched from BiPAP to 6 L of oxygen so that she can go downstairs for her CTA of the chest. She had mild conversational dyspnea during our conversation. Reports this episode of dyspnea on exertion was much worse than her last admission. However, she states she is feeling better this morning. She denies any sputum production or significant cough. She is unable to perform her ADLs or get up out of bed without significant shortness of breath. Objective: Clinical Impression(s) from Imaging Studies Chest X-Ray 04/24/17 15:37 IMPRESSION: Congestive heart failure. Electronically Signed: Robina Uribe MD at 16:23 EST Tel , Service support , Echocardiogram dated 03/29/17 demonstrated normal LV size, mild concentric left ventricular hypertrophy, normal left ventricular systolic function, estimated EF of 60%, moderate focal aortic valve calcification, mean aortic valve gradient of 27 mmHg, calculated LUPE was 0.95 cm?. Compared to prior study, there was no significant changes. - Physical Exam General: Alert, Oriented x3, Cooperative, Well developed, Well nourished, - - Mild conversational dyspnea, speaking in complete sentences. HEENT: Atraumatic, Normocephalic Oral: Moist Mucosa, No Gingival or Mucosal Lesions/ Ulcerations Neck: Supple, No Nodes, Trachea Midline Lungs: - - Diminished throughout, no rhonchi or wheezing. Rales posteriorly mid to bases Cardiovascular: Regular rate, Regular Rhythm, Normal S1, Normal S2, Murmur, No rub noted, No Gallop Abdomen: Bowel Sounds Present, Soft, Non Tender, Non-Distended, Obese Extremities: No clubbing, No cyanosis, Capillary Refill Less than 3 Seconds, No Calf Tenderness, Edema - 2+ pitting bilat LEs, - - venous stasis changes to bilat LEs Skin: No rashes, Ulcer/ Wound - 2 small/healing pressure ulcers to left buttock Musculoskeletal: No Tenderness to Palpation of Joints or Extremities Lymphatic: No Cervical, Supraclavicular, or Inguinal Adenopathy Neurological: Cranial nerves II-XII grossly intact, Neuro grossly intact, Motor Exam 5/5 strength throughout Psych/Mental Status: Alert and oriented to time, place, person, mood and affect Vital Signs Temp Pulse Resp BP Pulse Ox 98.9 F 104 H 26 H 129/91 H 98 04/25/17 07:00 04/25/17 07:46 04/25/17 07:46 04/25/17 07:00 04/25/17 07:50 Oxygen Flow Rate 6 Oxygen Delivery Method Nasal Cannula Weight: 262 lb 2.074 oz Body Mass Index (BMI) 46.4 Intake and Output for Last 24 Hours 04/23/17 04/24/17 04/25/17 23:59 23:59 23:59 Intake Total 150 / 150 200 / 200 Output Total 850 / 850 275 / 275 Balance -700 / -700 -75 / -75 Laboratory Tests Past 24 Hrs 04/24/17 04/25/17 04/25/17 19:10 05:45 05:45 WBC 10.1 RBC 3.14 L Hgb 8.1 L Hct 29.6 L MCV 94.3 MCH 25.8 L MCHC 27.4 L RDW 17.7 H RDW Differential 60.9 H Plt Count 354 MPV 9.7 Specimen Type ART Sample Site L Radial pH 7.45 Bicarbonate Actual 55.4 H POC Total CO2 > 50 Base Excess > 30 H O2 Saturation 79 L O2 % 40 ABG pCO2 80.2 H* ABG pO2 45 L Luis Fernando Test POS Respiration Rate 14 O2 Delivery Device Bi / C PAP EPAP 8 IPAP 16 Blood Gas Notified Whom HOSP Blood Gas Notified Time 1909 Sodium 136 Potassium 4.5 Chloride 88 L Carbon Dioxide 42.0 H Anion Gap 6 BUN 22 H Creatinine 1.03 H Estim Creat Clear Calc 43.24 Est GFR (MDRD) Af Amer 68 Est GFR (MDRD) Non-Af 57 L BUN/Creatinine Ratio 21.4 H Glucose 242 H Calcium 8.7 POC Glucose 04/25/17 04/24/17 06:51 22:15 POC Glucose 267 H 234 H Assessment/Plan RECOMMENDATIONS 1. Wean oxygen supplementation to keep saturations 88-92%. 2. Encourage incentive spirometer 3. Increase activity as tolerated 4. Continue Duoneb aerosols 5. Continue BiPAP and wean as tolerated, continues with naps and nightly 6. Likely okay to discontinue steroids and antibiotics pending infectious workup 7. Aggressive diuresis 8. Ambulatory pulse ox prior to discharge 9. Patient should follow-up in the pulmonary clinic in 2 weeks after discharge with CRITICAL CARE TECHNICIAN IMPRESSIONS 1. Acute on chronic hypoxic and hypercapnic respiratory failure Patient has baseline oxygen requirements of 4-6 L. She again presents with sudden onset of dyspnea on exertion and palpitations with orthopnea. Her activity tolerance became very poor on Saturday. She has a pulse oximetry at home and notes desaturations into the 70s and 80s. Chest x-ray reports congestive heart failure and congestion. Suspect cor pulmonale as patient had improvement in her symptoms after IV Lasix but is still requiring BiPAP. Certainly her moderate to severe aortic stenosis complicates her course. The patient would benefit from transfer to [facility] for evaluation/consideration of TAVR procedure. For the time being, patient will need aggressive diuresis. Her renal function is stable. I suspect her respiratory status will improve with removal of fluid. A [place] catheter was placed secondary to fatigue and increased work of breathing with any activity. Continue BiPAP therapy with breaks as tolerated. Patient should also continue BiPAP with naps and nightly. Wean oxygen for saturations between 88 and 92%. Continue bronchodilators. Encourage incentive spirometer and increase activity as tolerated. Continue to work with PT. 2. COPD The patient does not appear to be an acute exacerbation at this time. She has no wheezing, no increase in sputum production or cough, no significant leukocytosis, and no fevers. It is likely okay to discontinue her steroids and antibiotics pending infectious workup. Her influenza was negative and respiratory panel is pending. Blood cultures are also pending. She has no current sputum production, however if her cough does become productive, a culture can be sent. 3. Aortic stenosis (severe) and acute on chronic diastolic CHF Chest x-ray on admission showed CHF. BNP is mildly elevated at 165. The patient has known moderate to severe aortic stenosis and initially underwent evaluation for potential surgery at [facility] about 2 years ago, however was told she needed to be optimized prior to consideration for surgery. He has been following with Dr. Xavier as an outpatient. The patient seems to be having more episodes of cor pulmonale and acute CHF, likely related to her valvular disease. [facility] cardiothoracic surgeon had reportedly told the patient he would like her evaluated by their oilfield plant and field operator in [place], the patient states she has an appointment sometime this summer. Certainly, the patient would benefit from a sooner appointment as her pulmonary status is declining. She has an appointment with KAILASH Kruger on May 02. Hopefully, it can be arranged where she can be evaluated in [place] sooner than the summertime, possibly even transferred from [facility]. 4. Hypertension/pulmonary hypertension/type 2 DM/hyperlipidemia/anemia/anxiety Complicates care, management, recovery, and prognosis. Management per hospitalist. Blood sugar up and patient on IV steroids, but these can likely be discontinued as patient does not appear to be a COPD exacerbation so blood sugars should recover.
--- NOTE | 2017-04-25 08:41 | CT_ITS ---
STUDY: CTA CHEST REASON FOR EXAM: Female, 66 years old. Shortness of breath. RADIATION DOSAGE (If Supplied By Facility): CTDIvol = ( 15.06 ) mGy, DLP = ( 707.33 ) mGycm TECHNIQUE: The examination was performed with the intravenous administration of 100 ml of Isovue 370 contrast material. Post-processing of the angiographic images was performed, with multiplanar reformation and 3D reconstruction. Individualized dose optimization techniques were used for this CT. COMPARISON: None. FINDINGS: The study is limited by patient motion. There is subsegmental atelectasis noted in the lungs. There is atelectasis at the lung bases. There are no pulmonary infiltrates or pleural effusions. There is no pneumothorax. Evaluation for pulmonary embolus is significantly limited due to motion. There is no central or proximal segmental pulmonary embolus. The distal segmental and subsegmental branches are not well evaluated. The heart and pericardium are within normal limits. There are coronary artery calcifications noted. There is no evidence of thoracic aortic aneurysm or dissection. There is no thoracic lymphadenopathy. Images through the upper abdomen demonstrate no significant abnormality. There are no destructive osseous lesions. CT/CTA Chest W/WO Contrast IMPRESSION: Study significantly limited by patient motion. No central or proximal segmental pulmonary embolus. Subsegmental atelectasis. Otherwise, grossly clear lungs. Coronary artery disease. Electronically Signed: Alon Ashton, at 11:21 EST Tel , Service support ,
--- NOTE | 2017-04-25 08:50 | CON.PCM_ITS ---
Problem List (1) Acute on chronic respiratory failure with hypoxia and hypercapnia Status: Acute (2) CHF (congestive heart failure) Status: Chronic Qualifiers: Congestive heart failure type: diastolic Congestive heart failure chronicity: acute on chronic Qualified Code(s): I50.33 - Acute on chronic diastolic (congestive) heart failure (3) Aortic stenosis Status: Chronic Comment: Moderate to severe with valve area 1.1 on cardiac catheterization in 2013 (4) Left atrial enlargement Status: Chronic (5) Hypersomnia Status: Chronic (6) Anemia Status: Chronic (7) Carotid artery stenosis Status: Chronic (8) Lumbago Status: Chronic (9) Pulmonary fibrosis Status: Chronic (10) Tobacco dependence in remission Status: Chronic (11) Stage 3 severe COPD by GOLD classification Status: Chronic (12) Diabetes mellitus type II Status: Chronic (13) Pulmonary hypertension Status: Chronic Comment: With PA pressures 55 by cardiac catheterization (14) Hypertension Status: Chronic (15) HLD (hyperlipidemia) Status: Chronic (16) GI AVM (gastrointestinal arteriovenous vascular malformation) Status: Chronic Reason for Consult Date of Consultation: 04/25/17 Reason for Consultation: respiratory failure History of Present Illness: The patient is a 66 year old F well known to pulmonary medicine, with a past medical history as below who presented to the ED on 04/24/17 with complaints of sudden increase of dyspnea on exertion and increased lower extremity edema for the last 2 days with associated orthopnea. Patient was admitted at [facility] from through 03/30/17 for acute on chronic CHF exacerbation/cor pulmonale with acute on chronic hypoxic and hypercarbic respiratory failure. The patient was treated with IV Lasix and prednisone, bronchodilators, and BiPAP therapy. Repeat echocardiogram was obtained at that time secondary to suspected worsening of her aortic stenosis, however appeared unchanged from the prior study. She was discharged on a steroid taper and Lasix 40 mg twice daily. Patient was educated on diet modification and CHF. She was asked to follow-up in the pulmonary clinic in 2 weeks, however this was not completed. She does have an appointment with KAILASH Kruger in cardiology on May 02. The patient was hypertensive on arrival with a blood pressure of 181/89, pulse 137, respirations 31, afebrile at 97.1?F, and 74% on her chronic 6 L of oxygen. The patient was placed on BiPAP 16/8 at 100% FiO2. ABG was obtained after placement of BiPAP and showed a pH of 7.33, bicarb 54.8, PCO2 104, and PO2 140. FiO2 was decreased and repeat ABG showed pH 7.45, bicarb 55.4, CO2 of 80.2, PO2 45. EKG showed sinus tachycardia with a rate of 131 bpm, right bundle branch block, which is not new. Chest x-ray showed cardiomegaly and evidence of congestive heart failure. Initial CBC showed mild leukocytosis with a white count of 11,900. Hemoglobin was stable at 8.7 which is around patient's baseline. Chemistry was remarkable for a chloride of 92, serum bicarb of 45 ( chronically elevated), BUN of 16 and creatinine 1.02, and elevated glucose of 202. Initial troponin 0.07 and BNP 165.2. D-dimer was elevated at 0.53, so a CTA of the chest was ordered but has not yet been obtained at the time of my evaluation. Blood cultures were obtained and are pending, influenza screen was negative. Respiratory panel obtained and pending. The patient was placed on bronchodilators, IV Lasix, Levaquin, and IV Solu-Medrol and admitted to the progressive care unit for further evaluation and management. Patient denied any increase in cough or sputum production, fever or chills, or chest pain. No hemoptysis, nausea, vomiting, or diarrhea. No recent sick contacts as she does not leave the house. She denied any changes in her weight , but admits she does not routinely weigh herself. She does have more edema than usual and has palpitations at times. She reports compliance with her Symbicort and Lasix at home. She has used her albuterol inhaler several times when short of breath with some relief. Patient reports she has been better at watching what she eats at home, states she has avoided high salt foods but did have a couple of chips the other day. She is trying to watch her fluid intake, but likes to drink a lot of coffee and water. Nursing staff reports they have tried to wean her off BiPAP this morning, however she desaturates into the low to mid 80s on 6 L of oxygen. She has a history of intolerance to noninvasive positive pressure therapy and intermittently wears it at home, but she seems to be managing okay for now. Past Medical History Past Medical History (Chronic Problems): Chronic Problems (Last Reviewed 03/29/17 @ 15:08 by Angeline Acosta NP-C) Nonrheumatic aortic (valve) stenosis (Chronic) Left atrial enlargement (Chronic) Hypersomnia (Chronic) Anemia (Chronic) Palpitations (Chronic) Carotid artery stenosis (Chronic) Lumbago (Chronic) Chronic hypoxemic respiratory failure (Chronic) Pulmonary fibrosis (Chronic) 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 3 severe COPD by GOLD classification (Chronic) Aortic stenosis (Chronic) Moderate to severe with valve area 1.1 on cardiac catheterization in 2013 Diabetes mellitus type II (Chronic) Pulmonary hypertension (Chronic) With PA pressures 55 by cardiac catheterization CHF (congestive heart failure) (Chronic) Hypertension (Chronic) HLD (hyperlipidemia) (Chronic) 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) Allergies No Known Allergies Allergy (Verified 03/27/17 14:13) Home Medications: Ambulatory Orders Medication Instructions Recorded Metformin HCl [Glucophage] 1,000 mg PO BIDCM 01/15/14 Simvastatin [Zocor] 20 mg PO QHS 01/15/14 Ferrous Sulfate 325 mg PO BID 04/09/14 Escitalopram Oxalate [Lexapro] 10 mg PO DAILY 06/29/15 Metoprolol Tartrate [Lopressor 50 mg PO BID 06/29/15 (beta lorena)] Trazodone HCl [Desyrel] 100 mg PO QHS PRN PRN 06/29/15 Albuterol Inhaler [Ventolin Hfa] 2 puff INHALATION Q4H PRN PRN #2 10/02/15 inhaler Furosemide [Lasix] 40 mg PO BID 05/27/16 Budesonide/Formoterol Fumarate 2 puff IH BID 03/27/17 [Symbicort 160-4.5 Mcg Inhaler] Fluticasone 0.05% [Flonase Nasal 1 spray NASAL BID 04/24/17 [place]] Surgical History: herniorrhaphy, hysterectomy, - Psychiatric History: No pertinent psych hx 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 Denies: Anorexia, Chills, Fever, Night Sweats, Malaise, Weight Change Eyes: Denies: Vision Change HEENT: Reports: Post Nasal Drip - mild. Denies: Difficulty Swallowing, Nasal Congestion, Sinus Congestion, Sinus Drainage, Sore Throat Cardiovascular: Reports: Edema, Orthopnea, Palpitations. Denies: Chest Pain, Chest Tightness, Light Headedness, Paroxysmal Noc. Dyspnea, Syncope Respiratory: Reports: Cough - chronic, no increase in frequency, - - Dyspneic with any activity. Denies: Hemoptysis, Pleuritic Pain, Sputum production, Wheezing Gastrointestinal: Denies: Abdominal Pain, Constipation, Diarrhea, Dyspepsia, Hematemesis, Hematochezia, Nausea, Melena, Vomiting Genitourinary: Reports: Frequency - on diuretic, Nocturia. Denies: Dysuria, Retention Musculoskeletal: Reports: Joint stiffness. Denies: Back Pain, Neck Pain Skin: Denies: Rash, Wounds Neurological: Denies: Balance problems, Change in Speech, Confusion, Difficulty swallowing, Focal weakness, Numbness, Tingling, Tremor, Seizures Psychiatric: Reports: Anxiety, Depression. Denies: Suicidal Ideations Endocrine: Denies: Change in Body Habitus, Polydipsia, Polyuria Hematologic/ Lymphatic: Reports: Anemia, Easy Bruising. Denies: Adenopathy, Easy Bleeding Subjective: The patient was seen and examined. She was just switched from BiPAP to 6 L of oxygen so that she can go downstairs for her CTA of the chest. She had mild conversational dyspnea during our conversation. Reports this episode of dyspnea on exertion was much worse than her last admission. However, she states she is feeling better this morning. She denies any sputum production or significant cough. She is unable to perform her ADLs or get up out of bed without significant shortness of breath. Objective: Clinical Impression(s) from Imaging Studies Chest X-Ray 04/24/17 15:37 IMPRESSION: Congestive heart failure. Electronically Signed: Robina Uribe MD at 16:23 EST Tel , Service support , Echocardiogram dated 03/29/17 demonstrated normal LV size, mild concentric left ventricular hypertrophy, normal left ventricular systolic function, estimated EF of 60%, moderate focal aortic valve calcification, mean aortic valve gradient of 27 mmHg, calculated LUPE was 0.95 cm?. Compared to prior study, there was no significant changes. - Physical Exam General: Alert, Oriented x3, Cooperative, Well developed, Well nourished, - - Mild conversational dyspnea, speaking in complete sentences. HEENT: Atraumatic, Normocephalic Oral: Moist Mucosa, No Gingival or Mucosal Lesions/ Ulcerations Neck: Supple, No Nodes, Trachea Midline Lungs: - - Diminished throughout, no rhonchi or wheezing. Rales posteriorly mid to bases Cardiovascular: Regular rate, Regular Rhythm, Normal S1, Normal S2, Murmur, No rub noted, No Gallop Abdomen: Bowel Sounds Present, Soft, Non Tender, Non-Distended, Obese Extremities: No clubbing, No cyanosis, Capillary Refill Less than 3 Seconds, No Calf Tenderness, Edema - 2+ pitting bilat LEs, - - venous stasis changes to bilat LEs Skin: No rashes, Ulcer/ Wound - 2 small/healing pressure ulcers to left buttock Musculoskeletal: No Tenderness to Palpation of Joints or Extremities Lymphatic: No Cervical, Supraclavicular, or Inguinal Adenopathy Neurological: Cranial nerves II-XII grossly intact, Neuro grossly intact, Motor Exam 5/5 strength throughout Psych/Mental Status: Alert and oriented to time, place, person, mood and affect Vital Signs Temp Pulse Resp BP Pulse Ox 98.9 F 104 H 26 H 129/91 H 98 04/25/17 07:00 04/25/17 07:46 04/25/17 07:46 04/25/17 07:00 04/25/17 07:50 Oxygen Flow Rate 6 Oxygen Delivery Method Nasal Cannula Weight: 262 lb 2.074 oz Body Mass Index (BMI) 46.4 Intake and Output for Last 24 Hours 04/23/17 04/24/17 04/25/17 23:59 23:59 23:59 Intake Total 150 / 150 200 / 200 Output Total 850 / 850 275 / 275 Balance -700 / -700 -75 / -75 Laboratory Tests Past 24 Hrs 04/24/17 04/25/17 04/25/17 19:10 05:45 05:45 WBC 10.1 RBC 3.14 L Hgb 8.1 L Hct 29.6 L MCV 94.3 MCH 25.8 L MCHC 27.4 L RDW 17.7 H RDW Differential 60.9 H Plt Count 354 MPV 9.7 Specimen Type ART Sample Site L Radial pH 7.45 Bicarbonate Actual 55.4 H POC Total CO2 > 50 Base Excess > 30 H O2 Saturation 79 L O2 % 40 ABG pCO2 80.2 H* ABG pO2 45 L Luis Fernando Test POS Respiration Rate 14 O2 Delivery Device Bi / C PAP EPAP 8 IPAP 16 Blood Gas Notified Whom HOSP Blood Gas Notified Time 1909 Sodium 136 Potassium 4.5 Chloride 88 L Carbon Dioxide 42.0 H Anion Gap 6 BUN 22 H Creatinine 1.03 H Estim Creat Clear Calc 43.24 Est GFR (MDRD) Af Amer 68 Est GFR (MDRD) Non-Af 57 L BUN/Creatinine Ratio 21.4 H Glucose 242 H Calcium 8.7 POC Glucose 04/25/17 04/24/17 06:51 22:15 POC Glucose 267 H 234 H Assessment/Plan RECOMMENDATIONS 1. Wean oxygen supplementation to keep saturations 88-92%. 2. Encourage incentive spirometer 3. Increase activity as tolerated 4. Continue Duoneb aerosols 5. Continue BiPAP and wean as tolerated, continues with naps and nightly 6. Likely okay to discontinue steroids and antibiotics pending infectious workup 7. Aggressive diuresis 8. Ambulatory pulse ox prior to discharge 9. Patient should follow-up in the pulmonary clinic in 2 weeks after discharge with HEEL DIPPER IMPRESSIONS 1. Acute on chronic hypoxic and hypercapnic respiratory failure Patient has baseline oxygen requirements of 4-6 L. She again presents with sudden onset of dyspnea on exertion and palpitations with orthopnea. Her activity tolerance became very poor on Saturday. She has a pulse oximetry at home and notes desaturations into the 70s and 80s. Chest x-ray reports congestive heart failure and congestion. Suspect cor pulmonale as patient had improvement in her symptoms after IV Lasix but is still requiring BiPAP. Certainly her moderate to severe aortic stenosis complicates her course. The patient would benefit from transfer to [facility] for evaluation/ consideration of TAVR procedure. For the time being, patient will need aggressive diuresis. Her renal function is stable. I suspect her respiratory status will improve with removal of fluid. A [place] catheter was placed secondary to fatigue and increased work of breathing with any activity. Continue BiPAP therapy with breaks as tolerated. Patient should also continue BiPAP with naps and nightly. Wean oxygen for saturations between 88 and 92%. Continue bronchodilators. Encourage incentive spirometer and increase activity as tolerated. Continue to work with PT. 2. COPD The patient does not appear to be an acute exacerbation at this time. She has no wheezing, no increase in sputum production or cough, no significant leukocytosis, and no fevers. It is likely okay to discontinue her steroids and antibiotics pending infectious workup. Her influenza was negative and respiratory panel is pending. Blood cultures are also pending. She has no current sputum production, however if her cough does become productive, a culture can be sent. 3. Aortic stenosis (severe) and acute on chronic diastolic CHF Chest x-ray on admission showed CHF. BNP is mildly elevated at 165. The patient has known moderate to severe aortic stenosis and initially underwent evaluation for potential surgery at [facility] about 2 years ago, however was told she needed to be optimized prior to consideration for surgery. He has been following with Dr. Xavier as an outpatient. The patient seems to be having more episodes of cor pulmonale and acute CHF, likely related to her valvular disease. [facility] cardiothoracic surgeon had reportedly told the patient he would like her evaluated by their supervisor front in Spring, the patient states she has an appointment sometime this summer. Certainly, the patient would benefit from a sooner appointment as her pulmonary status is declining. She has an appointment with KAILASH Kruger on May 02. Hopefully, it can be arranged where she can be evaluated in Spring sooner than the summertime, possibly even transferred from [facility]. 4. Hypertension/pulmonary hypertension/type 2 DM/hyperlipidemia/anemia/anxiety Complicates care, management, recovery, and prognosis. Management per hospitalist. Blood sugar up and patient on IV steroids, but these can likely be discontinued as patient does not appear to be a COPD exacerbation so blood sugars should recover.
[2017-04-25] MEDS: Escitalopram Oxalate 10 MG Tablet PO (09:16)
[2017-04-25] MEDS: Ferrous Sulfate 325 MG Tablet PO ×2 (09:16→16:42)
[2017-04-25] MEDS: Metoprolol Tartrate 50 MG Tablet PO ×2 (09:16→22:11)
[2017-04-25] MEDS: Fluticasone 0.05% 1 SPRAY NASAL.SRY NASAL (09:16)
[2017-04-25 11:41] LABS: Bedside Glucose 201 mg/dL (70-110)
--- NOTE | 2017-04-25 12:01 | CASEMGMT ---
RN WHITLEY told SW patient would like to go to [facility] at d/c. ANTONIO called Sommer at [facility] and left her a voice mail. Chey AGUIRRE MSW
--- NOTE | 2017-04-25 13:03 | PN_ITS ---
<Shemar Butcher - Last Filed: 04/25/17 12:48> Subjective: Pt in chair at bedside in upright position, very shaky with tremor in hands that she reports is new. She remains SOB with O2 levels dipping into the 80s despite 6lpm O2. She tolerated bipap overnight. She has increased swelling of the BLE. She has no CP. She has a dry cough intermittently. No fevers or chills. She has recently been on steroids. She was in the hospital for cor pulmonale in March, had her home O2 increased to 6 lpm and placed on lasix 40 BID. She had an echo at that time to evaluate her for which she is being monitored by a CT surgeon for possible repair however it appeared unchanged at that time. - Physical Exam General: Alert, Oriented x3, Cooperative HEENT: Atraumatic, PERRLA, EOMI, Normocephalic Neck: Supple, No JVD, Negative Carotid Bruits Lungs: Diminished, Rales - crackles right base. Cardiovascular: Regular rate, No murmurs Abdomen: Bowel Sounds Present, Soft, Non Tender Extremities: No edema, Capillary Refill Less than 3 Seconds, Edema - 2+ pitting edema BLE. Skin: No rashes, No breakdown Musculoskeletal: No Tenderness to Palpation of Joints or Extremities Neurological: Cranial nerves II-XII grossly intact, - - resting tremor BL upper ext. Psych/Mental Status: Normal Affect, Appropriate Vital Signs Temp Pulse Resp BP Pulse Ox 97.5 F L 101 H 24 H 126/55 H 98 04/25/17 11:00 04/25/17 11:22 04/25/17 11:00 04/25/17 11:00 04/25/17 11:00 Oxygen Flow Rate 6 Oxygen Delivery Method Bi-pap Weight: 118.9 kg Body Mass Index (BMI) 46.4 Intake and Output for Last 24 Hours 04/23/17 04/24/17 04/25/17 23:59 23:59 23:59 Intake Total 150 / 150 440 / 440 Output Total 850 / 850 675 / 675 Balance -700 / -700 -235 / -235 Laboratory Tests Past 24 Hrs 04/24/17 04/25/17 04/25/17 19:10 05:45 05:45 WBC 10.1 RBC 3.14 L Hgb 8.1 L Hct 29.6 L MCV 94.3 MCH 25.8 L MCHC 27.4 L RDW 17.7 H RDW Differential 60.9 H Plt Count 354 MPV 9.7 Specimen Type ART Sample Site L Radial pH 7.45 Bicarbonate Actual 55.4 H POC Total CO2 > 50 Base Excess > 30 H O2 Saturation 79 L O2 % 40 ABG pCO2 80.2 H* ABG pO2 45 L Luis Fernando Test POS Respiration Rate 14 O2 Delivery Device Bi / C PAP EPAP 8 IPAP 16 Blood Gas Notified [facility] Blood Gas Notified Time 1909 Sodium 136 Potassium 4.5 Chloride 88 L Carbon Dioxide 42.0 H Anion Gap 6 BUN 22 H Creatinine 1.03 H Estim Creat Clear Calc 43.24 Est GFR (MDRD) Af Amer 68 Est GFR (MDRD) Non-Af 57 L BUN/Creatinine Ratio 21.4 H Glucose 242 H Calcium 8.7 POC Glucose 04/25/17 04/25/17 04/24/17 11:34 06:51 22:15 POC Glucose 201 H 267 H 234 H Assessment/Plan 1. Acute on chronic hypoxic hypercapneic respiratory failure - baseline 6 lpm. pulmonary is following. Continue BiPAP as she desaturates to 80s with 6 lpm O2. Complicated by CHF, COPD, pulmonary fibrosis, pulmonary htn, and severe Aortic stenosis. -She had an elevated d-dimer, a CT of the chest was done this morning which did not reveal any PE. 2. Acute diastolic CHF exacerbation - IV lasix, CHADD wraps, strict I/O, Na/fluid restriction. 3. Severe aortic stenosis - echo last month showed no change. Will need outpatient follow up with cardiology to reevaluate for need for surgery. 4. COPD - pulm does not feel this is acute COPD exacerbation so steroids have been discontinued. 5. T2DM - continue current. Orals held. Last A1C ~3 months ago was 5.1. 6. HTN -this has improved since admission 7. HLD -on statin 8. Chronic anemia-trending down. Continue to monitor. Continue oral iron. Will check stool occult blood. 9. History of tobacco abuse-recently quit 10. Anxiety depression-continue home meds DVT prophylaxis: Heparin This patient was seen by Shemar Butcher PA-C under the supervision of Doctor Caden. <Katharine Negrete - Last Filed: 04/25/17 15:36> - Physical Exam Vital Signs Temp Pulse Resp BP Pulse Ox 98.5 F 104 H 20 H 108/58 L 91 04/25/17 15:00 04/25/17 15:00 04/25/17 15:00 04/25/17 15:00 04/25/17 15:00 Oxygen Flow Rate 6 Oxygen Delivery Method Nasal Cannula Weight: 118.9 kg Body Mass Index (BMI) 46.4 Intake and Output for Last 24 Hours 04/23/17 04/24/17 04/25/17 23:59 23:59 23:59 Intake Total 150 / 150 440 / 440 Output Total 850 / 850 675 / 675 Balance -700 / -700 -235 / -235 Laboratory Tests Past 24 Hrs 04/24/17 04/25/17 04/25/17 19:10 05:45 05:45 WBC 10.1 RBC 3.14 L Hgb 8.1 L Hct 29.6 L MCV 94.3 MCH 25.8 L MCHC 27.4 L RDW 17.7 H RDW Differential 60.9 H Plt Count 354 MPV 9.7 Specimen Type ART Sample Site L Radial pH 7.45 Bicarbonate Actual 55.4 H POC Total CO2 > 50 Base Excess > 30 H O2 Saturation 79 L O2 % 40 ABG pCO2 80.2 H* ABG pO2 45 L Luis Fernando Test POS Respiration Rate 14 O2 Delivery Device Bi / C PAP EPAP 8 IPAP 16 Blood Gas Notified Whom HOSP Blood Gas Notified Time 1909 Sodium 136 Potassium 4.5 Chloride 88 L Carbon Dioxide 42.0 H Anion Gap 6 BUN 22 H Creatinine 1.03 H Estim Creat Clear Calc 43.24 Est GFR (MDRD) Af Amer 68 Est GFR (MDRD) Non-Af 57 L BUN/Creatinine Ratio 21.4 H Glucose 242 H Calcium 8.7 POC Glucose 04/25/17 04/25/17 04/24/17 11:34 06:51 22:15 POC Glucose 201 H 267 H 234 H Assessment/Plan This patient was seen in conjunction with KAILASH Ortega. I have independently interviewed and examined the patient and reviewed pertinent historical, laboratory, and other data. Please refer to his note for details of this patient's presentation, findings, and recommendations. I have reviewed his note and concur with documentation. Patient has been on Bipap overnight. Noted to be on her usual 6L oxygen earlier. Still feels SOB. S/p epstein catheter which patient requested - reluctant to have that discontinued. Educated about getting hospital catheter- associated UTI. Will continue on breathing treatment and aggressive diuresis Respiratory panel has been negative, breathing treatments. Rest of her chronic medical problems appear unchanged and needs close monitoring in the outpatient. Code Visit Inpatient E&M: 50902 Subs Hosp L2
--- NOTE | 2017-04-25 13:28 | CASEMGMT ---
Face to Face with patient for initial transition planning/care coordination assessment. RN WHITLEY introduced self and role at [facility], pt voices understanding and consents to assessment at this time. Pt sitting up in bed with bipap in place at this time. Pt A/O x4 at this time and answers all questions appropriately at this time. Care providers, pharmacy, and demographics verified. See attached link. Pt voices no further concerns/needs at this time. Advised pt to ask for CM if any further questions/concerns/needs arise, voices understanding. Referral to [facility]qu[facility] ALVAREZ at this time for possible SNF placement, voices understanding. PLAN: PIPERD Ander UNDERWOOD CM
--- NOTE | 2017-04-25 15:11 | CHAPLAIN ---
Type of Pastoral Visit _x__ Initial Visit ___ Follow-up Visit ___ On-call Visit ___ General Patient Visit ___ Spiritual Assessment ___ Family Conference ___ Bereavement ___ Rapid Response ___ Code Blue ___ Other (describe below) Pastoral Care Referral From _x__ Patient ___ Family ___ Nurse ___ Physician ___ Utility Bagger ___ Package Center Supervisor ___ Other (describe below) Sacrament/Intervention _x__ Active listening ___ Anointing ___ Yarsanism ___ Bereavement ___ Communion ___ Sandra exploration ___ _x__ Life review _x__ Prayer ___ Reconciliation ___ Sacrament of Sick _x__ Supportive presence ___ Wedding ___ Other (describe below) Pastoral Comments
[2017-04-25 16:51] LABS: Bedside Glucose 197 mg/dL (70-110)
[2017-04-25] MEDS: Atorvastatin Calcium 10 MG Tablet PO (22:11)
[2017-04-25 22:36] LABS: Bedside Glucose 252 mg/dL (70-110)
[2017-04-26] VITALS (16 sets, daily range): BP systolic 111–122; BP diastolic 45–68; PULSE 61–106; RESP 14–22; TEMP 36.7–36.9; O2SAT 93–97
[2017-04-26 05:37] LABS: Absolute Lymphocyte Count 0.79 X10^3/ul (0.83-4.51); Absolute Neutrophil Count 8.9 X10^3/uL (2.0-7.7); Basophil# 0.01 X10^3/uL; Basophil% 0.1 % (0-1); Eosinophil# 0.04 X10^3/uL; Eosinophils% 0.4 % (0-5); Hematocrit 28.4 % (37-47); Hemoglobin 7.8 g/dl (12.0-15.0); Lymphocyte # 0.79 X10^3/ul (4.0); Lymphocyte % 7.3 % (19-41); Mean Corp Hgb Conc 27.5 g/gl (32-36); Mean Corpuscular Hgb 26.1 pg (27.0-32.0); Monocyte# 0.95 X10^3/uL; Monocyte% 8.8 % (0-10); Neutrophil # 8.93 X10^3/uL (2.7-7.7); Neutrophil % 82.8 % (47-70); Platelet Count 390 K/mm3 (150-450); RBC Distribution Width CV 18.2 % (11.6-14.6); Red Blood Count 2.99 M/mm3 (4.2-5.4); White Blood Count 10.8 K/mm3 (4.4-11.0)
[2017-04-26 05:38] LABS: POSITIVE COUNT NO; POSITIVE DIFFERENTIAL NO; POSITIVE MORPHOLOGY NO
[2017-04-26] MEDS: Furosemide 40 MG/4 ML Vial IV ×2 (05:52→17:55)
[2017-04-26] MEDS: 0.9% NaCl Peripheral Flush Adult/Peds IV ×3 (05:52→17:58)
[2017-04-26 05:55] LABS: Anion Gap 6 (5-15); BUN 34 mg/dL (7-18); BUN/Creat Ratio 30.6 RATIO (10-20); Calcium,Total 8.8 mg/dL (8.5-10.1); Chloride 88 mmol/L (98-107); Creatinine, Serum 1.11 mg/dL (0.55-1.02); EST Glomerular Filtration Rate 52 mL/min (>60); Est Glom Filt Rate - Afr Amer 63 mL/min (>60); Estimated Creatinine Clearance 40.13 ml/min; Glucose 146 mg/dL (74-106); Potassium 3.8 mmol/L (3.5-5.1); Sodium Level 137 mmol/L (136-145)
[2017-04-26] MEDS: Ipratropium/Albuterol Sulfate 3 ML AMPUL.NEB INHALATION ×4 (06:44→19:08)
[2017-04-26 06:51] LABS: Bedside Glucose 140 mg/dL (70-110)
[2017-04-26] MEDS: Fluticasone 0.05% 1 SPRAY NASAL.SRY NASAL (09:03)
[2017-04-26] MEDS: Ferrous Sulfate 325 MG Tablet PO ×2 (09:03→17:55)
[2017-04-26] MEDS: Metoprolol Tartrate 50 MG Tablet PO ×2 (09:04→22:05)
[2017-04-26] MEDS: Escitalopram Oxalate 10 MG Tablet PO (09:04)
--- NOTE | 2017-04-26 09:47 | PCM.PROGNOTE ---
Patient Problems: Active and Suspected Problems (Last Updated 04/26/17 @ 09:57 by Maureen Marshall, SENIOR HARDWARE ENGINEER-C) Acute on chronic respiratory failure with hypoxia and hypercapnia (Acute) Subjective: Patient was seen and examined. She remains on 5 L of oxygen and wore BiPAP overnight and tolerated well. Patient tachycardic with exertion. Remains hemodynamically stable, hemoglobin this morning was 7.8, iron studies were ordered. Cumulative fluid balance is -1160. Respiratory panel negative, blood cultures are pending. Objective: Clinical Impression(s) from Imaging Studies Chest X-Ray 04/24/17 15:37 IMPRESSION: Congestive heart failure. Electronically Signed: Robina Uribe MD at 16:23 EST Tel , Service support , Chest CTA 04/25/17 08:41 IMPRESSION: Study significantly limited by patient motion. No central or proximal segmental pulmonary embolus. Subsegmental atelectasis. Otherwise, grossly clear lungs. Coronary artery disease. Electronically Signed: Alon Ashton, at 11:21 EST Tel , Service support , - Physical Exam General: Alert, Oriented x3, Cooperative, No apparent distress, Well developed, Well nourished, - - no conversational dyspnea HEENT: Atraumatic, Normocephalic Oral: Moist Mucosa, No Gingival or Mucosal Lesions/ Ulcerations Neck: Supple, No Nodes, Trachea Midline Lungs: No rhonchi, No wheeze, Diminished, - - bibasilar rales Cardiovascular: Regular rate, Regular Rhythm, Normal S1, Normal S2, No rub noted, No Gallop Abdomen: Bowel Sounds Present, Soft, Non Tender, Non-Distended Extremities: No clubbing, No cyanosis, Edema, - - venous stasis changes Skin: No rashes Lymphatic: No Cervical, Supraclavicular, or Inguinal Adenopathy Neurological: Neuro grossly intact, Motor Exam 5/5 strength throughout Psych/Mental Status: Alert and oriented to time, place, person, mood and affect Vital Signs Temp Pulse Resp BP Pulse Ox 98.4 F 106 H 16 120/60 96 04/26/17 04:00 04/26/17 09:04 04/26/17 06:44 04/26/17 09:04 04/26/17 06:44 Oxygen Flow Rate 5 Oxygen Delivery Method Nasal Cannula Weight: 262 lb 2.074 oz Body Mass Index (BMI) 46.4 Intake and Output for Last 24 Hours 04/24/17 04/25/17 04/26/17 23:59 23:59 23:59 Intake Total 150 / 150 1640 / 1640 100 / 100 Output Total 850 / 850 1525 / 1525 675 / 675 Balance -700 / -700 115 / 115 -575 / -575 Laboratory Tests Past 24 Hrs 04/26/17 04/26/17 04/26/17 05:10 05:10 05:10 WBC 10.8 RBC 2.99 L Hgb 7.8 L Hct 28.4 L MCV 95.0 MCH 26.1 L MCHC 27.5 L RDW 18.2 H RDW Differential 60.0 H Plt Count 390 MPV 10.0 Immature Gran % (Auto) 0.600 Neut % (Auto) 82.8 H Lymph % (Auto) 7.3 L [place] % (Auto) 8.8 Eos % (Auto) 0.4 Baso % (Auto) 0.1 Absolute Neuts (auto) 8.9 H Absolute Lymphs (auto) 0.79 L Total Counted Not Reportable Sodium 137 Potassium 3.8 Chloride 88 L Carbon Dioxide 43.0 H Anion Gap 6 BUN 34 H Creatinine 1.11 H Estim Creat Clear Calc 40.13 Est GFR (MDRD) Af Amer 63 Est GFR (MDRD) Non-Af 52 L BUN/Creatinine Ratio 30.6 H Glucose 146 H Calcium 8.8 Iron Pending TIBC Pending Iron Saturation Pending Ferritin Pending POC Glucose 04/26/17 04/25/17 04/25/17 06:48 22:05 16:40 POC Glucose 140 H 252 H 197 H 04/25/17 11:34 POC Glucose 201 H Assessment/Plan Active and Suspected Problems (Last Updated 04/26/17 @ 09:57 by Maureen Marshall, SENIOR HARDWARE ENGINEER-C) Acute on chronic respiratory failure with hypoxia and hypercapnia (Acute) RECOMMENDATIONS 1. Wean oxygen supplementation to keep saturations 88-92%. 2. Encourage incentive spirometer 3. Increase activity as tolerated, continue PT 4. Continue Duoneb aerosols 5. Continue BiPAP and wean as tolerated, continues with naps and nightly 6. Continue diuresis 8. Ambulatory pulse ox prior to discharge 9. Consider repeat evaluation for aortic valve replacement 9. Patient should follow-up in the pulmonary clinic in 2 weeks after discharge with SENIOR HARDWARE ENGINEER IMPRESSIONS 1. Acute on chronic hypoxic and hypercapnic respiratory failure Patient has baseline oxygen requirements of 4-6 L. Multiple recent admissions for SOB and palpitations with orthopnea. Chest x-ray reports CHF. Low suspicion for infectious etiology. Suspect cor pulmonale as patient had significant improvement after IV Lasix and BiPAP. Currently on 5L/nc. Certainly her moderate to severe aortic stenosis complicates her course. The patient would benefit from transfer to [facility] for evaluation/consideration of TAVR procedure. For the time being, continue diuresis. Her renal function is stable. Patient should also continue BiPAP with naps and nightly. Wean oxygen for saturations between 88 and 92%. Continue bronchodilators. Encourage incentive spirometer and increase activity as tolerated. Continue to work with PT. Patient should continue home inhaler regimen at discharge. 2. COPD The patient does not appear to be an acute exacerbation at this time. She has no wheezing, no increase in sputum production or cough, no significant leukocytosis, and no fevers. Her influenza screening and respiratory panel were normal. Blood cultures pending. She has no current sputum production, however if her cough does become productive, a culture can be sent. Steroids and antibiotics were discontinued. Patient should follow up in the pulmonary clinic upon discharge. 3. Aortic stenosis (severe) and acute on chronic diastolic CHF Chest x-ray on admission showed CHF. CTA chest with no significant infiltrates, but notable for significant artifact. BNP is mildly elevated at 165. The patient has known moderate to severe aortic stenosis and initially underwent evaluation for potential surgery at [facility] about 2 years ago, however was told she needed to be optimized prior to consideration for surgery. He has been following with Dr. Xavier as an outpatient. The patient seems to be having more episodes of cor pulmonale and acute CHF, likely related to her valvular disease with complication of lung disease/pulm hypertension. [facility] cardiothoracic surgeon had reportedly told the patient he would like her evaluated by their blocklayer in [place], the patient states she has an appointment sometime this summer. Certainly, the patient would benefit from a sooner appointment as her pulmonary status is declining. She has an appointment with KAILASH Kruger on May 02. Hopefully, it can be arranged where she can be evaluated in [place] sooner than the summertime, possibly even transferred from [facility]. 04/26: Improved with diuresis. Less oxygen requirements today, off BiPAP when awake. Continue IV diuresis today, likely ok to deescalate therapy tomorrow pending clinical course. Continue to wean oxygen. Ambulatory pulse oximetry prior to discharge. 4. Hypertension/pulmonary hypertension/type 2 DM/hyperlipidemia/anemia/anxiety Complicates care, management, recovery, and prognosis. Management per hospitalist. Case management following, plan is for patient to go to extended care facility for rehabilitation upon discharge. This note was generated with [employer] dictation software. It may contain incorrect words, spelling, and punctuation that were not noted in checking the note before signing.
--- NOTE | 2017-04-26 09:56 | PN_ITS ---
Patient Problems: Active and Suspected Problems (Last Updated 04/26/17 @ 09:57 by Maureen Marshall , HAND UMBRELLA TIPPER-C) Acute on chronic respiratory failure with hypoxia and hypercapnia (Acute) Subjective: Patient was seen and examined. She remains on 5 L of oxygen and wore BiPAP overnight and tolerated well. Patient tachycardic with exertion. Remains hemodynamically stable, hemoglobin this morning was 7.8, iron studies were ordered. Cumulative fluid balance is -1160. Respiratory panel negative, blood cultures are pending. Objective: Clinical Impression(s) from Imaging Studies Chest X-Ray 04/24/17 15:37 IMPRESSION: Congestive heart failure. Electronically Signed: Robina Uribe MD at 16:23 EST Tel , Service support , Chest CTA 04/25/17 08:41 IMPRESSION: Study significantly limited by patient motion. No central or proximal segmental pulmonary embolus. Subsegmental atelectasis. Otherwise, grossly clear lungs. Coronary artery disease. Electronically Signed: Alon Ashton, at 11:21 EST Tel , Service support , - Physical Exam General: Alert, Oriented x3, Cooperative, No apparent distress, Well developed, Well nourished, - - no conversational dyspnea HEENT: Atraumatic, Normocephalic Oral: Moist Mucosa, No Gingival or Mucosal Lesions/ Ulcerations Neck: Supple, No Nodes, Trachea Midline Lungs: No rhonchi, No wheeze, Diminished, - - bibasilar rales Cardiovascular: Regular rate, Regular Rhythm, Normal S1, Normal S2, No rub noted , No Gallop Abdomen: Bowel Sounds Present, Soft, Non Tender, Non-Distended Extremities: No clubbing, No cyanosis, Edema, - - venous stasis changes Skin: No rashes Lymphatic: No Cervical, Supraclavicular, or Inguinal Adenopathy Neurological: Neuro grossly intact, Motor Exam 5/5 strength throughout Psych/Mental Status: Alert and oriented to time, place, person, mood and affect Vital Signs Temp Pulse Resp BP Pulse Ox 98.4 F 106 H 16 120/60 96 04/26/17 04:00 04/26/17 09:04 04/26/17 06:44 04/26/17 09:04 04/26/17 06:44 Oxygen Flow Rate 5 Oxygen Delivery Method Nasal Cannula Weight: 262 lb 2.074 oz Body Mass Index (BMI) 46.4 Intake and Output for Last 24 Hours 04/24/17 04/25/17 04/26/17 23:59 23:59 23:59 Intake Total 150 / 150 1640 / 1640 100 / 100 Output Total 850 / 850 1525 / 1525 675 / 675 Balance -700 / -700 115 / 115 -575 / -575 Laboratory Tests Past 24 Hrs 04/26/17 04/26/17 04/26/17 05:10 05:10 05:10 WBC 10.8 RBC 2.99 L Hgb 7.8 L Hct 28.4 L MCV 95.0 MCH 26.1 L MCHC 27.5 L RDW 18.2 H RDW Differential 60.0 H Plt Count 390 MPV 10.0 Immature Gran % (Auto) 0.600 Neut % (Auto) 82.8 H Lymph % (Auto) 7.3 L [place] % (Auto) 8.8 Eos % (Auto) 0.4 Baso % (Auto) 0.1 Absolute Neuts (auto) 8.9 H Absolute Lymphs (auto) 0.79 L Total Counted Not Reportable Sodium 137 Potassium 3.8 Chloride 88 L Carbon Dioxide 43.0 H Anion Gap 6 BUN 34 H Creatinine 1.11 H Estim Creat Clear Calc 40.13 Est GFR (MDRD) Af Amer 63 Est GFR (MDRD) Non-Af 52 L BUN/Creatinine Ratio 30.6 H Glucose 146 H Calcium 8.8 Iron Pending TIBC Pending Iron Saturation Pending Ferritin Pending POC Glucose 04/26/17 04/25/17 04/25/17 06:48 22:05 16:40 POC Glucose 140 H 252 H 197 H 04/25/17 11:34 POC Glucose 201 H Assessment/Plan Active and Suspected Problems (Last Updated 04/26/17 @ 09:57 by Maureen Marshall , HAND UMBRELLA TIPPER-C) Acute on chronic respiratory failure with hypoxia and hypercapnia (Acute) RECOMMENDATIONS 1. Wean oxygen supplementation to keep saturations 88-92%. 2. Encourage incentive spirometer 3. Increase activity as tolerated, continue PT 4. Continue Duoneb aerosols 5. Continue BiPAP and wean as tolerated, continues with naps and nightly 6. Continue diuresis 8. Ambulatory pulse ox prior to discharge 9. Consider repeat evaluation for aortic valve replacement 9. Patient should follow-up in the pulmonary clinic in 2 weeks after discharge with HAND UMBRELLA TIPPER IMPRESSIONS 1. Acute on chronic hypoxic and hypercapnic respiratory failure Patient has baseline oxygen requirements of 4-6 L. Multiple recent admissions for SOB and palpitations with orthopnea. Chest x-ray reports CHF. Low suspicion for infectious etiology. Suspect cor pulmonale as patient had significant improvement after IV Lasix and BiPAP. Currently on 5L/nc. Certainly her moderate to severe aortic stenosis complicates her course. The patient would benefit from transfer to [facility] for evaluation/ consideration of TAVR procedure. For the time being, continue diuresis. Her renal function is stable. Patient should also continue BiPAP with naps and nightly. Wean oxygen for saturations between 88 and 92%. Continue bronchodilators. Encourage incentive spirometer and increase activity as tolerated. Continue to work with PT. Patient should continue home inhaler regimen at discharge. 2. COPD The patient does not appear to be an acute exacerbation at this time. She has no wheezing, no increase in sputum production or cough, no significant leukocytosis, and no fevers. Her influenza screening and respiratory panel were normal. Blood cultures pending. She has no current sputum production, however if her cough does become productive, a culture can be sent. Steroids and antibiotics were discontinued. Patient should follow up in the pulmonary clinic upon discharge. 3. Aortic stenosis (severe) and acute on chronic diastolic CHF Chest x-ray on admission showed CHF. CTA chest with no significant infiltrates , but notable for significant artifact. BNP is mildly elevated at 165. The patient has known moderate to severe aortic stenosis and initially underwent evaluation for potential surgery at [facility] about 2 years ago, however was told she needed to be optimized prior to consideration for surgery. He has been following with Dr. Xavier as an outpatient. The patient seems to be having more episodes of cor pulmonale and acute CHF, likely related to her valvular disease with complication of lung disease/pulm hypertension. [facility] cardiothoracic surgeon had reportedly told the patient he would like her evaluated by their civil engineering designer in [place], the patient states she has an appointment sometime this summer. Certainly, the patient would benefit from a sooner appointment as her pulmonary status is declining. She has an appointment with KAILASH Kruger on May 02. Hopefully, it can be arranged where she can be evaluated in [place] sooner than the summertime, possibly even transferred from [facility]. 04/26: Improved with diuresis. Less oxygen requirements today, off BiPAP when awake. Continue IV diuresis today, likely ok to deescalate therapy tomorrow pending clinical course. Continue to wean oxygen. Ambulatory pulse oximetry prior to discharge. 4. Hypertension/pulmonary hypertension/type 2 DM/hyperlipidemia/anemia/anxiety Complicates care, management, recovery, and prognosis. Management per hospitalist. Case management following, plan is for patient to go to extended care facility for rehabilitation upon discharge. This note was generated with [employer] dictation software. It may contain incorrect words, spelling, and punctuation that were not noted in checking the note before signing.
[2017-04-26 10:13] LABS: Ferritin 19 ng/mL (8-252); Iron 24 ug/dL (50-170); Iron Binding Capacity,Total 338 ug/dL (250-450); PERCENT IRON SATURATION 7.1 % (15.0-55.0)
--- NOTE | 2017-04-26 10:50 | CASEMGMT ---
SW spoke with [facility] and they only have Dementia unit beds. SW spoke with patient and told her that [facility] was full and she told SW she was open to going anywhere and was ok with SW making referrals. SW called [facility] and faxed a referral. ANTONIO heard back from [facility] and they can take patient at d/c. SW told patient this information and she was pleased with [facility]. Green sheet is on chart with instructions as patient will be d/c Saturday. Plan: [facility] under skilled level of care. Convalescent form was completed on . Staff to set up transport if is not able to transport. Chey AGUIRRE INSTRUCTIONAL MEDIA SERVICES TECHNICIAN
[2017-04-26 11:45] LABS: Bedside Glucose 171 mg/dL (70-110)
--- NOTE | 2017-04-26 12:27 | PCM.PROGNOTE ---
<Shemar Butcher - Last Filed: 04/26/17 12:27> Patient Problems: Active and Suspected Problems (Last Updated 04/26/17 @ 09:57 by Maureen Marshall, ADRIANA-C) Acute on chronic respiratory failure with hypoxia and hypercapnia (Acute) Subjective: The patient reports that she feels significantly improved today, she is less short of breath and her oxygen requirements have decreased today. She has been on her feet and much more stable, she is up ambulating with some dyspnea still. She does feel very weak. She is requesting SNF placement. She is also agreeable to having her Whiteside catheter out today. - Physical Exam General: Alert, Oriented x3, Cooperative HEENT: Atraumatic, PERRLA, EOMI, Normocephalic Neck: Supple, No JVD, Negative Carotid Bruits Lungs: Diminished, Rales Cardiovascular: Regular rate, No murmurs Abdomen: Bowel Sounds Present, Soft, Non Tender Extremities: No edema, Capillary Refill Less than 3 Seconds, Edema - 2+ BL LE Skin: No rashes, No breakdown Musculoskeletal: No Tenderness to Palpation of Joints or Extremities Neurological: Cranial nerves II-XII grossly intact Psych/Mental Status: Normal Affect, Appropriate, Alert and oriented to time, place, person, mood and affect Vital Signs Temp Pulse Resp BP Pulse Ox 98.4 F 73 16 120/60 96 04/26/17 04:00 04/26/17 10:53 04/26/17 10:53 04/26/17 09:04 04/26/17 06:44 Oxygen Flow Rate 5 Oxygen Delivery Method Nasal Cannula Weight: 119.5 kg Body Mass Index (BMI) 46.4 Intake and Output for Last 24 Hours 04/24/17 04/25/17 04/26/17 23:59 23:59 23:59 Intake Total 150 / 150 1640 / 1640 100 / 100 Output Total 850 / 850 1525 / 1525 675 / 675 Balance -700 / -700 115 / 115 -575 / -575 Laboratory Tests Past 24 Hrs 04/26/17 04/26/17 04/26/17 05:10 05:10 05:10 WBC 10.8 RBC 2.99 L Hgb 7.8 L Hct 28.4 L MCV 95.0 MCH 26.1 L MCHC 27.5 L RDW 18.2 H RDW Differential 60.0 H Plt Count 390 MPV 10.0 Immature Gran % (Auto) 0.600 Neut % (Auto) 82.8 H Lymph % (Auto) 7.3 L [place] % (Auto) 8.8 Eos % (Auto) 0.4 Baso % (Auto) 0.1 Absolute Neuts (auto) 8.9 H Absolute Lymphs (auto) 0.79 L Total Counted Not Reportable Sodium 137 Potassium 3.8 Chloride 88 L Carbon Dioxide 43.0 H Anion Gap 6 BUN 34 H Creatinine 1.11 H Estim Creat Clear Calc 40.13 Est GFR (MDRD) Af Amer 63 Est GFR (MDRD) Non-Af 52 L BUN/Creatinine Ratio 30.6 H Glucose 146 H Calcium 8.8 Iron 24 L TIBC 338 Iron Saturation 7.1 L Ferritin 19 POC Glucose 04/26/17 04/26/17 04/25/17 11:38 06:48 22:05 POC Glucose 171 H 140 H 252 H 04/25/17 16:40 POC Glucose 197 H Assessment/Plan Active and Suspected Problems (Last Updated 04/26/17 @ 09:57 by Maureen Marshall, DIGITAL MARKETER-C) Acute on chronic respiratory failure with hypoxia and hypercapnia (Acute) 1. Acute on chronic hypoxic hypercapneic respiratory failure secondary to acute diastolic CHF exacerbation baseline 6 lpm. pulmonary is following. She has now significantly improved and has been able to tolerate 5 L/min O2 via nasal cannula. Continue bronchodilators, incentive spirometry, and Lasix. Complicated by CHF, COPD, pulmonary fibrosis, pulmonary htn, and severe Aortic stenosis. -She had an elevated d-dimer, a CT of the chest was done this morning which did not reveal any PE. 2. Acute diastolic CHF exacerbation - IV lasix, CHADD wraps, strict I/O, Na/fluid restriction. As her BUN and creatinine increased, and she has a negative fluid balance I will decrease her Lasix from 3 times daily to twice daily IV dosing and recheck a BMP in the morning. 3. Chronic normocytic anemia-trending down now 7.8. Continue to monitor. Continue oral iron. Iron studies will be checked today. She has not provided a stool sample yet. 4. Severe aortic stenosis - echo last month showed no change. Will need outpatient follow up with cardiology to reevaluate for need for surgery. 5. COPD - pulm does not feel this is acute COPD exacerbation so steroids have been discontinued. 6. T2DM - continue current. Orals held. Last A1C ~3 months ago was 5.1. 7. HTN -this has improved since admission 8. HLD -on statin 9. History of tobacco abuse-recently quit 10. Anxiety depression-continue home meds 11. Debility-PT OT. custodial placement. DVT prophylaxis: Heparin Discharge plannin the patient is stable she will be discharged to correction. This patient was seen by Shemar Butcher PA-C under the supervision of Doctor Negrete. <Katharine Negrete - Last Filed: 04/26/17 16:38> - Physical Exam Vital Signs Temp Pulse Resp BP Pulse Ox 98.3 F 75 18 122/68 H 93 04/26/17 16:16 04/26/17 16:16 04/26/17 16:16 04/26/17 16:16 04/26/17 16:16 Oxygen Flow Rate 6 Oxygen Delivery Method Nasal Cannula Weight: 119.5 kg Body Mass Index (BMI) 46.4 Intake and Output for Last 24 Hours 04/24/17 04/25/17 04/26/17 23:59 23:59 23:59 Intake Total 150 / 150 1640 / 1640 470 / 470 Output Total 850 / 850 1525 / 1525 1250 / 1250 Balance -700 / -700 115 / 115 -780 / -780 Laboratory Tests Past 24 Hrs 04/26/17 04/26/17 04/26/17 05:10 05:10 05:10 WBC 10.8 RBC 2.99 L Hgb 7.8 L Hct 28.4 L MCV 95.0 MCH 26.1 L MCHC 27.5 L RDW 18.2 H RDW Differential 60.0 H Plt Count 390 MPV 10.0 Immature Gran % (Auto) 0.600 Neut % (Auto) 82.8 H Lymph % (Auto) 7.3 L [place] % (Auto) 8.8 Eos % (Auto) 0.4 Baso % (Auto) 0.1 Absolute Neuts (auto) 8.9 H Absolute Lymphs (auto) 0.79 L Total Counted Not Reportable Sodium 137 Potassium 3.8 Chloride 88 L Carbon Dioxide 43.0 H Anion Gap 6 BUN 34 H Creatinine 1.11 H Estim Creat Clear Calc 40.13 Est GFR (MDRD) Af Amer 63 Est GFR (MDRD) Non-Af 52 L BUN/Creatinine Ratio 30.6 H Glucose 146 H Calcium 8.8 Iron 24 L TIBC 338 Iron Saturation 7.1 L Ferritin 19 POC Glucose 04/26/17 04/26/17 04/25/17 11:38 06:48 22:05 POC Glucose 171 H 140 H 252 H 04/25/17 16:40 POC Glucose 197 H Assessment/Plan This patient was seen in conjunction with KAILASH Ortega. I have independently interviewed and examined the patient and reviewed pertinent historical, laboratory, and other data. Please refer to his note for details of this patient's presentation, findings, and recommendations. I have reviewed his note and concur with documentation. Patient has improved, off Bipap mostly, on 5L oxygen, which is her baseline. Diuresing well, Cr is slightly elevated, agree with cutting back on lasix to bid, will need to continue breathing treatment and aggressive diuresis. She needs re-assessment of her valvular and pulmonary status to prevent future re-admissions. Code Visit Inpatient E&M: 29097 Subs Hosp L2
--- NOTE | 2017-04-26 12:32 | PN_ITS ---
<Shemar Butcher - Last Filed: 04/26/17 12:27> Patient Problems: Active and Suspected Problems (Last Updated 04/26/17 @ 09:57 by Maureen Marshall , ADRIANA-C) Acute on chronic respiratory failure with hypoxia and hypercapnia (Acute) Subjective: The patient reports that she feels significantly improved today, she is less short of breath and her oxygen requirements have decreased today. She has been on her feet and much more stable, she is up ambulating with some dyspnea still. She does feel very weak. She is requesting SNF placement. She is also agreeable to having her Whiteside catheter out today. - Physical Exam General: Alert, Oriented x3, Cooperative HEENT: Atraumatic, PERRLA, EOMI, Normocephalic Neck: Supple, No JVD, Negative Carotid Bruits Lungs: Diminished, Rales Cardiovascular: Regular rate, No murmurs Abdomen: Bowel Sounds Present, Soft, Non Tender Extremities: No edema, Capillary Refill Less than 3 Seconds, Edema - 2+ BL LE Skin: No rashes, No breakdown Musculoskeletal: No Tenderness to Palpation of Joints or Extremities Neurological: Cranial nerves II-XII grossly intact Psych/Mental Status: Normal Affect, Appropriate, Alert and oriented to time, place, person, mood and affect Vital Signs Temp Pulse Resp BP Pulse Ox 98.4 F 73 16 120/60 96 04/26/17 04:00 04/26/17 10:53 04/26/17 10:53 04/26/17 09:04 04/26/17 06:44 Oxygen Flow Rate 5 Oxygen Delivery Method Nasal Cannula Weight: 119.5 kg Body Mass Index (BMI) 46.4 Intake and Output for Last 24 Hours 04/24/17 04/25/17 04/26/17 23:59 23:59 23:59 Intake Total 150 / 150 1640 / 1640 100 / 100 Output Total 850 / 850 1525 / 1525 675 / 675 Balance -700 / -700 115 / 115 -575 / -575 Laboratory Tests Past 24 Hrs 04/26/17 04/26/17 04/26/17 05:10 05:10 05:10 WBC 10.8 RBC 2.99 L Hgb 7.8 L Hct 28.4 L MCV 95.0 MCH 26.1 L MCHC 27.5 L RDW 18.2 H RDW Differential 60.0 H Plt Count 390 MPV 10.0 Immature Gran % (Auto) 0.600 Neut % (Auto) 82.8 H Lymph % (Auto) 7.3 L [place] % (Auto) 8.8 Eos % (Auto) 0.4 Baso % (Auto) 0.1 Absolute Neuts (auto) 8.9 H Absolute Lymphs (auto) 0.79 L Total Counted Not Reportable Sodium 137 Potassium 3.8 Chloride 88 L Carbon Dioxide 43.0 H Anion Gap 6 BUN 34 H Creatinine 1.11 H Estim Creat Clear Calc 40.13 Est GFR (MDRD) Af Amer 63 Est GFR (MDRD) Non-Af 52 L BUN/Creatinine Ratio 30.6 H Glucose 146 H Calcium 8.8 Iron 24 L TIBC 338 Iron Saturation 7.1 L Ferritin 19 POC Glucose 04/26/17 04/26/17 04/25/17 11:38 06:48 22:05 POC Glucose 171 H 140 H 252 H 04/25/17 16:40 POC Glucose 197 H Assessment/Plan Active and Suspected Problems (Last Updated 04/26/17 @ 09:57 by Maureen Marshall , MINING CONSULTANT-C) Acute on chronic respiratory failure with hypoxia and hypercapnia (Acute) 1. Acute on chronic hypoxic hypercapneic respiratory failure secondary to acute diastolic CHF exacerbation baseline 6 lpm. pulmonary is following. She has now significantly improved and has been able to tolerate 5 L/min O2 via nasal cannula. Continue bronchodilators, incentive spirometry, and Lasix. Complicated by CHF, COPD, pulmonary fibrosis, pulmonary htn, and severe Aortic stenosis. -She had an elevated d-dimer, a CT of the chest was done this morning which did not reveal any PE. 2. Acute diastolic CHF exacerbation - IV lasix, CHADD wraps, strict I/O, Na/fluid restriction. As her BUN and creatinine increased, and she has a negative fluid balance I will decrease her Lasix from 3 times daily to twice daily IV dosing and recheck a BMP in the morning. 3. Chronic normocytic anemia-trending down now 7.8. Continue to monitor. Continue oral iron. Iron studies will be checked today. She has not provided a stool sample yet. 4. Severe aortic stenosis - echo last month showed no change. Will need outpatient follow up with cardiology to reevaluate for need for surgery. 5. COPD - pulm does not feel this is acute COPD exacerbation so steroids have been discontinued. 6. T2DM - continue current. Orals held. Last A1C ~3 months ago was 5.1. 7. HTN -this has improved since admission 8. HLD -on statin 9. History of tobacco abuse-recently quit 10. Anxiety depression-continue home meds 11. Debility-PT OT. pen[facility]entiary placement. DVT prophylaxis: Heparin Discharge plannin the patient is stable she will be discharged to senior living. This patient was seen by Shemar Butcher PA-C under the supervision of Doctor Negrete. <Katharine Negrete - Last Filed: 04/26/17 16:38> - Physical Exam Vital Signs Temp Pulse Resp BP Pulse Ox 98.3 F 75 18 122/68 H 93 04/26/17 16:16 04/26/17 16:16 04/26/17 16:16 04/26/17 16:16 04/26/17 16:16 Oxygen Flow Rate 6 Oxygen Delivery Method Nasal Cannula Weight: 119.5 kg Body Mass Index (BMI) 46.4 Intake and Output for Last 24 Hours 04/24/17 04/25/17 04/26/17 23:59 23:59 23:59 Intake Total 150 / 150 1640 / 1640 470 / 470 Output Total 850 / 850 1525 / 1525 1250 / 1250 Balance -700 / -700 115 / 115 -780 / -780 Laboratory Tests Past 24 Hrs 04/26/17 04/26/17 04/26/17 05:10 05:10 05:10 WBC 10.8 RBC 2.99 L Hgb 7.8 L Hct 28.4 L MCV 95.0 MCH 26.1 L MCHC 27.5 L RDW 18.2 H RDW Differential 60.0 H Plt Count 390 MPV 10.0 Immature Gran % (Auto) 0.600 Neut % (Auto) 82.8 H Lymph % (Auto) 7.3 L [place] % (Auto) 8.8 Eos % (Auto) 0.4 Baso % (Auto) 0.1 Absolute Neuts (auto) 8.9 H Absolute Lymphs (auto) 0.79 L Total Counted Not Reportable Sodium 137 Potassium 3.8 Chloride 88 L Carbon Dioxide 43.0 H Anion Gap 6 BUN 34 H Creatinine 1.11 H Estim Creat Clear Calc 40.13 Est GFR (MDRD) Af Amer 63 Est GFR (MDRD) Non-Af 52 L BUN/Creatinine Ratio 30.6 H Glucose 146 H Calcium 8.8 Iron 24 L TIBC 338 Iron Saturation 7.1 L Ferritin 19 POC Glucose 04/26/17 04/26/17 04/25/17 11:38 06:48 22:05 POC Glucose 171 H 140 H 252 H 04/25/17 16:40 POC Glucose 197 H Assessment/Plan This patient was seen in conjunction with KAILASH Ortega. I have independently interviewed and examined the patient and reviewed pertinent historical, laboratory, and other data. Please refer to his note for details of this patient's presentation, findings, and recommendations. I have reviewed his note and concur with documentation. Patient has improved, off Bipap mostly, on 5L oxygen, which is her baseline. Diuresing well, Cr is slightly elevated, agree with cutting back on lasix to bid , will need to continue breathing treatment and aggressive diuresis. She needs re-assessment of her valvular and pulmonary status to prevent future re-admissions. Code Visit Inpatient E&M: 33768 Subs Hosp L2
[2017-04-26 16:36] LABS: Bedside Glucose 166 mg/dL (70-110)
[2017-04-26] MEDS: Atorvastatin Calcium 10 MG Tablet PO (22:05)
[2017-04-26 22:11] LABS: Bedside Glucose 200 mg/dL (70-110)
[2017-04-27] VITALS (14 sets, daily range): BP systolic 100–115; BP diastolic 40–58; PULSE 71–92; RESP 14–20; TEMP 36.6–37; O2SAT 91–98
[2017-04-27 06:33] LABS: Absolute Lymphocyte Count 0.51 X10^3/ul (0.83-4.51); Absolute Neutrophil Count 6.6 X10^3/uL (2.0-7.7); Basophil# 0.03 X10^3/uL; Basophil% 0.4 % (0-1); Differential Indicated SCAN CRITERIA MET; Eosinophil# 0.12 X10^3/uL; Eosinophils% 1.4 % (0-5); Hematocrit 29.2 % (37-47); Hemoglobin 7.9 g/dl (12.0-15.0); Lymphocyte # 0.51 X10^3/ul (4.0); Lymphocyte % 6.1 % (19-41); Mean Corp Hgb Conc 27.1 g/gl (32-36); Mean Corpuscular Hgb 25.7 pg (27.0-32.0); Mean Corpuscular Volume 95.1 fL (81-99); Mean Platelet Vol. 9.5 fl (6.2-12.0); Monocyte# 1.02 X10^3/uL; Monocyte% 12.3 % (0-10); Neutrophil # 6.59 X10^3/uL (2.7-7.7); Neutrophil % 79.3 % (47-70); POSITIVE COUNT NO; POSITIVE DIFFERENTIAL YES; POSITIVE MORPHOLOGY NO; Platelet Count 379 K/mm3 (150-450); RBC Distribution Width CV 18.1 % (11.6-14.6); RBC Distribution Width SD 63.2 fl (35.1-43.9); Red Blood Count 3.07 M/mm3 (4.2-5.4); White Blood Count 8.3 K/mm3 (4.4-11.0)
[2017-04-27 06:46] LABS: Bedside Glucose 136 mg/dL (70-110)
[2017-04-27 06:48] LABS: Differential Comment SCANNED; Hypochromasia 2+
[2017-04-27] MEDS: Ipratropium/Albuterol Sulfate 3 ML AMPUL.NEB INHALATION ×2 (06:48→10:46)
[2017-04-27 06:49] LABS: Stomatocyte 2+
[2017-04-27 06:50] LABS: Anion Gap 5 (5-15); BUN 37 mg/dL (7-18); BUN/Creat Ratio 37.3 RATIO (10-20); Calcium,Total 8.6 mg/dL (8.5-10.1); Chloride 91 mmol/L (98-107); Creatinine, Serum 0.99 mg/dL (0.55-1.02); EST Glomerular Filtration Rate 59 mL/min (>60); Est Glom Filt Rate - Afr Amer 72 mL/min (>60); Estimated Creatinine Clearance 44.99 ml/min; Glucose 135 mg/dL (74-106); Potassium 3.8 mmol/L (3.5-5.1); Sodium Level 139 mmol/L (136-145)
[2017-04-27] MEDS: Ferrous Sulfate 325 MG Tablet PO (07:50)
--- NOTE | 2017-04-27 08:03 | PCM.PROGNOTE ---
Patient Problems: Active and Suspected Problems (Last Updated 04/26/17 @ 09:57 by Maureen Marshall, CRUST SORTER-C) Acute on chronic respiratory failure with hypoxia and hypercapnia (Acute) Subjective: Patient did well overnight. Patient reports subjective improvement in exercise tolerance. Patient denies any cough or chest pain. No nausea or vomiting is been reported. Patient does report using BiPAP overnight without complication. - Physical Exam General: Alert, Oriented x3, Cooperative, No apparent distress, - - Morbidly obese. Speaking in full sentences. HEENT: Atraumatic, PERRLA, EOMI, Normocephalic, - - No scleral icterus or injection noted. Oral: Moist Mucosa, No Gingival or Mucosal Lesions/ Ulcerations Neck: Supple, No Nodes, Trachea Midline, - - JVD difficult to assess secondary to body habitus Lungs: No rhonchi, No wheeze, No rales, Diminished, - - Symmetric expansion. No dullness to percussion. Cardiovascular: Regular rate, Regular Rhythm, Normal S1, Normal S2, Murmur, No rub noted, No Gallop Abdomen: Bowel Sounds Present, Soft, Non Tender, Non-Distended, Obese Extremities: No cyanosis, Capillary Refill Less than 3 Seconds, Clubbing, Edema Skin: No rashes, No breakdown Musculoskeletal: No Tenderness to Palpation of Joints or Extremities Lymphatic: No Cervical, Supraclavicular, or Inguinal Adenopathy Neurological: Cranial nerves II-XII grossly intact, Neuro grossly intact, Motor Exam 5/5 strength throughout, Sensory exam intact to light touch and pain Psych/Mental Status: Alert and oriented to time, place, person, mood and affect Vital Signs Temp Pulse Resp BP Pulse Ox 36.7 C 71 18 100/40 L 92 04/27/17 05:53 04/27/17 07:03 04/27/17 06:53 04/27/17 05:53 04/27/17 06:53 Oxygen Flow Rate 5 Oxygen Delivery Method Nasal Cannula Weight: 119.5 kg Body Mass Index (BMI) 46.4 Intake and Output for Last 24 Hours 04/25/17 04/26/17 04/27/17 23:59 23:59 23:59 Intake Total 1640 / 1640 470 / 470 Output Total 1525 / 1525 1250 / 1250 Balance 115 / 115 -780 / -780 Laboratory Tests Past 24 Hrs 04/26/17 04/27/17 04/27/17 05:10 05:45 05:45 WBC 8.3 RBC 3.07 L Hgb 7.9 L Hct 29.2 L MCV 95.1 MCH 25.7 L MCHC 27.1 L RDW 18.1 H RDW Differential 63.2 H Plt Count 379 MPV 9.5 Immature Gran % (Auto) 0.500 Neut % (Auto) 79.3 H Lymph % (Auto) 6.1 L [place] % (Auto) 12.3 H Eos % (Auto) 1.4 Baso % (Auto) 0.4 Absolute Neuts (auto) 6.6 Absolute Lymphs (auto) 0.51 L Total Counted Not Reportable Differential Comment SCANNED Hypochromasia 2+ Stomatocytes 2+ Sodium 139 Potassium 3.8 Chloride 91 L Carbon Dioxide 43.0 H Anion Gap 5 BUN 37 H Creatinine 0.99 Estim Creat Clear Calc 44.99 Est GFR (MDRD) Af Amer 72 Est GFR (MDRD) Non-Af 59 L BUN/Creatinine Ratio 37.3 H Glucose 135 H Calcium 8.6 Iron 24 L TIBC 338 Iron Saturation 7.1 L Ferritin 19 POC Glucose 04/27/17 04/26/17 04/26/17 06:41 21:53 16:32 POC Glucose 136 H 200 H 166 H 04/26/17 11:38 POC Glucose 171 H Assessment/Plan Active and Suspected Problems (Last Updated 04/26/17 @ 09:57 by Maureen Marshall, CRUST SORTER-C) Acute on chronic respiratory failure with hypoxia and hypercapnia (Acute) RECOMMENDATIONS 1. Wean oxygen supplementation to keep saturations 88-92%. 2. Encourage incentive spirometer 3. Increase activity as tolerated, continue PT a walking oximetry prior to discharge 4. Continue Duoneb, BiPAP with sleep and aerosols 5. Likely okay to resume baseline diuretic therapy 6. Okay to discharge from a pulmonary perspective IMPRESSIONS 1. Acute on chronic hypoxic and hypercapnic respiratory failure Patient has baseline oxygen requirements of 4-6 L. Multiple recent admissions for SOB and palpitations with orthopnea. Patient is responded very nicely to diuretic therapy. Clinical suspicion for multifactorial etiology including COPD, pulmonary hypertension and aortic stenosis leading to pulmonary edema. No antibiotics or steroids are indicated. Patient should continue to monitor saturations with ambulation as this will be highly variable given her fluid status. 2. COPD Do not believe this constitutes an acute exacerbation of COPD at this time. Patient can resume baseline medications on discharge from the hospital. No steroid burst or antibiotics are indicated. 3. Aortic stenosis (severe) and acute on chronic diastolic CHF And has been followed by the [facility] for possible TAVR. Patient also follows with Dr. Xavier. Will defer to cardiology for coordination, but suggest that patient may benefit from repair as soon as possible given multiple hospitalization secondary to fluid overload. 4. Hypertension/pulmonary hypertension/type 2 DM/hyperlipidemia/anemia/anxiety Complicates care, management, recovery, and prognosis. Management per hospitalist. Case management following, plan is for patient to go to extended care facility for rehabilitation upon discharge. This note was generated with [employer] dictation software. It may contain incorrect words, spelling, and punctuation that were not noted in checking the note before signing. Code Visit Inpatient E&M: 78663 Subs Hosp L2
--- NOTE | 2017-04-27 08:11 | PN_ITS ---
Patient Problems: Active and Suspected Problems (Last Updated 04/26/17 @ 09:57 by Maureen Marshall , LAW EXAMINER-C) Acute on chronic respiratory failure with hypoxia and hypercapnia (Acute) Subjective: Patient did well overnight. Patient reports subjective improvement in exercise tolerance. Patient denies any cough or chest pain. No nausea or vomiting is been reported. Patient does report using BiPAP overnight without complication. - Physical Exam General: Alert, Oriented x3, Cooperative, No apparent distress, - - Morbidly obese. Speaking in full sentences. HEENT: Atraumatic, PERRLA, EOMI, Normocephalic, - - No scleral icterus or injection noted. Oral: Moist Mucosa, No Gingival or Mucosal Lesions/ Ulcerations Neck: Supple, No Nodes, Trachea Midline, - - JVD difficult to assess secondary to body habitus Lungs: No rhonchi, No wheeze, No rales, Diminished, - - Symmetric expansion. No dullness to percussion. Cardiovascular: Regular rate, Regular Rhythm, Normal S1, Normal S2, Murmur, No rub noted, No Gallop Abdomen: Bowel Sounds Present, Soft, Non Tender, Non-Distended, Obese Extremities: No cyanosis, Capillary Refill Less than 3 Seconds, Clubbing, Edema Skin: No rashes, No breakdown Musculoskeletal: No Tenderness to Palpation of Joints or Extremities Lymphatic: No Cervical, Supraclavicular, or Inguinal Adenopathy Neurological: Cranial nerves II-XII grossly intact, Neuro grossly intact, Motor Exam 5/5 strength throughout, Sensory exam intact to light touch and pain Psych/Mental Status: Alert and oriented to time, place, person, mood and affect Vital Signs Temp Pulse Resp BP Pulse Ox 36.7 C 71 18 100/40 L 92 04/27/17 05:53 04/27/17 07:03 04/27/17 06:53 04/27/17 05:53 04/27/17 06:53 Oxygen Flow Rate 5 Oxygen Delivery Method Nasal Cannula Weight: 119.5 kg Body Mass Index (BMI) 46.4 Intake and Output for Last 24 Hours 04/25/17 04/26/17 04/27/17 23:59 23:59 23:59 Intake Total 1640 / 1640 470 / 470 Output Total 1525 / 1525 1250 / 1250 Balance 115 / 115 -780 / -780 Laboratory Tests Past 24 Hrs 04/26/17 04/27/17 04/27/17 05:10 05:45 05:45 WBC 8.3 RBC 3.07 L Hgb 7.9 L Hct 29.2 L MCV 95.1 MCH 25.7 L MCHC 27.1 L RDW 18.1 H RDW Differential 63.2 H Plt Count 379 MPV 9.5 Immature Gran % (Auto) 0.500 Neut % (Auto) 79.3 H Lymph % (Auto) 6.1 L [place] % (Auto) 12.3 H Eos % (Auto) 1.4 Baso % (Auto) 0.4 Absolute Neuts (auto) 6.6 Absolute Lymphs (auto) 0.51 L Total Counted Not Reportable Differential Comment SCANNED Hypochromasia 2+ Stomatocytes 2+ Sodium 139 Potassium 3.8 Chloride 91 L Carbon Dioxide 43.0 H Anion Gap 5 BUN 37 H Creatinine 0.99 Estim Creat Clear Calc 44.99 Est GFR (MDRD) Af Amer 72 Est GFR (MDRD) Non-Af 59 L BUN/Creatinine Ratio 37.3 H Glucose 135 H Calcium 8.6 Iron 24 L TIBC 338 Iron Saturation 7.1 L Ferritin 19 POC Glucose 04/27/17 04/26/17 04/26/17 06:41 21:53 16:32 POC Glucose 136 H 200 H 166 H 04/26/17 11:38 POC Glucose 171 H Assessment/Plan Active and Suspected Problems (Last Updated 04/26/17 @ 09:57 by Maureen Marshall , LAW EXAMINER-C) Acute on chronic respiratory failure with hypoxia and hypercapnia (Acute) RECOMMENDATIONS 1. Wean oxygen supplementation to keep saturations 88-92%. 2. Encourage incentive spirometer 3. Increase activity as tolerated, continue PT a walking oximetry prior to discharge 4. Continue Duoneb, BiPAP with sleep and aerosols 5. Likely okay to resume baseline diuretic therapy 6. Okay to discharge from a pulmonary perspective IMPRESSIONS 1. Acute on chronic hypoxic and hypercapnic respiratory failure Patient has baseline oxygen requirements of 4-6 L. Multiple recent admissions for SOB and palpitations with orthopnea. Patient is responded very nicely to diuretic therapy. Clinical suspicion for multifactorial etiology including COPD, pulmonary hypertension and aortic stenosis leading to pulmonary edema. No antibiotics or steroids are indicated. Patient should continue to monitor saturations with ambulation as this will be highly variable given her fluid status. 2. COPD Do not believe this constitutes an acute exacerbation of COPD at this time. Patient can resume baseline medications on discharge from the hospital. No steroid burst or antibiotics are indicated. 3. Aortic stenosis (severe) and acute on chronic diastolic CHF And has been followed by the [facility] for possible TAVR. Patient also follows with Dr. Xavier. Will defer to cardiology for coordination, but suggest that patient may benefit from repair as soon as possible given multiple hospitalization secondary to fluid overload. 4. Hypertension/pulmonary hypertension/type 2 DM/hyperlipidemia/anemia/ anxiety Complicates care, management, recovery, and prognosis. Management per hospitalist. Case management following, plan is for patient to go to extended care facility for rehabilitation upon discharge. This note was generated with [employer] dictation software. It may contain incorrect words, spelling, and punctuation that were not noted in checking the note before signing. Code Visit Inpatient E&M: 37941 Subs Hosp L2
[2017-04-27] MEDS: Fluticasone 0.05% 1 SPRAY NASAL.SRY NASAL (10:26)
[2017-04-27] MEDS: Escitalopram Oxalate 10 MG Tablet PO (10:27)
[2017-04-27] MEDS: Furosemide 40 MG/4 ML Vial IV (10:27)
[2017-04-27] MEDS: Metoprolol Tartrate 50 MG Tablet PO (10:27)
--- NOTE | 2017-04-27 11:33 | PCM.TXEXTCAR ---
- Diet 04/25/17 12:55 Diet: 2 Gram Sodium Food consistency:: Regular Liquid Consistency:: Regular/Thin Is pt able to select menu?: Yes Diet Comments: calorie controlled to 1800 edilma / day - Routine Orders/Code Status Suppository Type: Dulcolax 10mg Suppository Frequency: Daily PRN O2 Frequency: Continuous Keep PO Greater than or Equal to (%): 90 - also bipap at night Routine Lab Work: CBC - 2 days, BMP - 2 days Code Status: Full Code - Wound(s) Left Buttock Wound Type: Abrasion - Therapies Physical Therapy: Eval and Treat Occupational Therapy: Eval and Treat - Problem/Diagnosis (1) CHF (congestive heart failure) Status: Acute Current Visit: No (2) Anemia Status: Chronic Current Visit: No (3) Chronic hypoxemic respiratory failure Status: Chronic Current Visit: No (4) Pulmonary fibrosis Status: Chronic Current Visit: No (5) Tobacco dependence in remission Status: Chronic Current Visit: No (6) Stage 3 severe COPD by GOLD classification Status: Chronic Current Visit: No (7) Aortic stenosis Status: Chronic Comment: Moderate to severe with valve area 1.1 on cardiac catheterization in 2013 Current Visit: No (8) Diabetes mellitus type II Status: Chronic Current Visit: No (9) Pulmonary hypertension Status: Chronic Comment: With PA pressures 55 by cardiac catheterization Current Visit: No (10) Hypertension Status: Chronic Current Visit: No (11) HLD (hyperlipidemia) Status: Chronic Current Visit: No (12) GI AVM (gastrointestinal arteriovenous vascular malformation) Status: Chronic Current Visit: No (13) Acute on chronic respiratory failure with hypoxia and hypercapnia Status: Acute Current Visit: No (14) Debility, unspecified Status: Chronic Current Visit: Yes - Allergies/Procedures Done in Hospital Allergies/Adverse Reactions: Allergies No Known Allergies Allergy (Verified 03/27/17 14:13) Procedures: None - Type of Care/Length of Stay Estimated LOS: Convalescent Care Less Than 30 days Type of Care Needed: Skilled Rehab Potential: Fair Prognosis: Fair - Additional Orders/Day of Discharge Day of Discharge: 04/27/17 - Dietary and Speech Recommendations Dietitian Recommendations/Changes: Recommend in addition to 1800 Calorie Controlled diet, consider Cardiac/Low Cholesterol diet r/t PMHx. - Follow Up Care Primary Care Physician: Vic Chen MD [Primary Care Provider] - Please follow up with your Primary Care Physician in: 2 weeks Please Follow Up With: Your [facility] Cardiolgist - Reevaluate your Heart Valve When: 2 weeks Please Follow Up With: Rajesh Dixon MD When: 2 weeks
[2017-04-27 12:01] LABS: Bedside Glucose 149 mg/dL (70-110)
--- NOTE | 2017-04-27 12:38 | NURSING ---
phoned to ask about patient transport back to [facility], no answer on house phone, only number listed
--- NOTE | 2017-04-27 14:24 | PCM.DC.SUM ---
Discharge Date and Diagnosis - Problem List Patient Problems: Active and Suspected Problems (Last Updated 04/26/17 @ 09:57 by Maureen Marshall NP-C) CHF (congestive heart failure) (Acute) Acute on chronic respiratory failure with hypoxia and hypercapnia (Acute) Date of Admission: 04/24/17 Date of Discharge: 04/27/17 - Primary Discharge Diagnosis Active and Suspected Problems (Last Updated 04/26/17 @ 09:57 by Maureen Marshall NP-C) Acute diastolic CHF exacerbation Acute on chronic respiratory failure with hypoxia and hypercapnia (Acute) COPD Pulmonary fibrosis Pulmonary hypertension Severe aortic stenosis Type 2 diabetes Hypertension Hyperlipidemia Iron deficiency anemia History of tobacco abuse Anxiety and depression - Secondary Discharge Diagnosis Chronic Problems (Last Updated 04/26/17 @ 09:57 by Maureen Marshall NP-C) Debility, unspecified (Chronic) Nonrheumatic aortic (valve) stenosis (Chronic) Left atrial enlargement (Chronic) Hypersomnia (Chronic) Anemia (Chronic) Palpitations (Chronic) Carotid artery stenosis (Chronic) Lumbago (Chronic) Chronic hypoxemic respiratory failure (Chronic) Pulmonary fibrosis (Chronic) 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 3 severe COPD by GOLD classification (Chronic) Aortic stenosis (Chronic) Moderate to severe with valve area 1.1 on cardiac catheterization in 2013 Diabetes mellitus type II (Chronic) Pulmonary hypertension (Chronic) With PA pressures 55 by cardiac catheterization Hypertension (Chronic) HLD (hyperlipidemia) (Chronic) 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 CT/CTA Chest W/WO Contrast IMPRESSION: Study significantly limited by patient motion. No central or proximal segmental pulmonary embolus. Subsegmental atelectasis. Otherwise, grossly clear lungs. Coronary artery disease. Zack - pulm Operations: None Procedures: None Summary of Care Provided: Physical exam on day of discharge: General: Resting comfortably NAD Psych: A/Ox3 normal affect HEENT: PEARRLA AT NC Neck: Supple NT CV: RRR no m/t/r/g/h Resp: CTA severely diminished Abd: [id number] Soft NT no guarding or rigidity Ext: DP2+= 1-2+ pitting edema Skin: W/D normal turgor Lymph/Heme: No active bleeding or adenopathy Neuro: CN2-12 intact Hospital course: The patient is a 66 year old F who presented to the emergency room with increased shortness of breath. Patient has a severe history of lung disease with chronic hypoxic respiratory failure requiring 6 L of oxygen, COPD, diastolic CHF, pulmonary hypertension, pulmonary fibrosis, severe aortic stenosis for which she is being evaluated as an outpatient for a possible valve replacement. She was recently in the hospital for acute cor pulmonale. She had been home for about a month and deteriorated. She was admitted to the hospital, pulmonary consulted, placed on BiPAP. Chest x-ray demonstrated congestive heart failure and she had an elevated BNP. She had no fever or white count. ABGs demonstrated hypoxia, hypercarbia, respiratory acidosis which did improve with BiPAP. She was initially started on IV Lasix, IV Levaquin and Solu-Medrol. Pulmonary did not feel there was a COPD exacerbation steroids were discontinued. There is no underlying infectious process so antibiotics were discontinued. She did have an elevated d-dimer so CT of the chest was done which did not reveal any PE. She diuresed significantly with IV Lasix. This was transitioned to a dose of 80 mg twice daily for home. Renal function remained stable. She will need to have her CBC and BMP followed closely with these changes. Patient had significant anemia and iron studies were decreased that she was given Venofer ?2. She was unable to provide a stool sample to assess for occult blood. She has dark stools but is chronically on iron which we advised to continue at this time. She was seen by PTOT and qualified for SNF placement which she desired so this was arranged. She will need close follow up with her cardiothoracic surgeon at the [facility] as she may need to have her valve replaced. This was discussed with her and we strongly advised she see this doctor within 2 weeks. She will also need follow up with her farmworker machine and PCP. She is discharged to group home in stable condition. Please continue oxygen at 6 L to keep sats greater than 89%, and BiPAP at night. This patient was seen by Shemar Butcher PA-C under the supervision of Doctor Negrete. [] Discharge Diet: Low fat/ Low Cholesterol, 1800 Calorie Control Diet, 2000 mg Sodium Diet Discharge Activity: Return to Normal Activity Home Medications: Medications to take at Discharge Metformin HCl [Glucophage] 1,000 mg PO BIDCM 01/15/14 Simvastatin [Zocor] 20 mg PO QHS 01/15/14 Ferrous Sulfate 325 mg PO BID 04/09/14 Escitalopram Oxalate [Lexapro] 10 mg PO DAILY 06/29/15 Metoprolol Tartrate [Lopressor (beta lorena)] 50 mg PO BID 06/29/15 Trazodone HCl [Desyrel] 100 mg PO QHS PRN PRN 06/29/15 Albuterol Inhaler [Ventolin Hfa] 2 puff INHALATION Q4H PRN PRN #2 inhaler 10/02/15 Budesonide/Formoterol Fumarate [Symbicort 160-4.5 Mcg Inhaler] 2 puff IH BID 03/27/17 Fluticasone 0.05% [Flonase Nasal [place]] 1 spray NASAL BID 04/24/17 Furosemide [Lasix] 80 mg PO BIDLX #60 tablet 04/27/17 Following Prescrptions Were Given to Patient: Furosemide [Lasix] 80 mg PO BIDLX #60 tablet Primary Care Physician: Vic Chen MD [Primary Care Provider] - Please follow up with your Primary Care Physician in: 2 weeks Please Follow Up With: Your [facility] Cardiolgist - Reevaluate your Heart Valve When: 2 weeks Please Follow Up With: Rajesh Dixon MD When: 2 weeks Disposition: Detention facility Minutes spent on discharge:: 40 Patient Condition:: Stable Meaningful Use Info Meaningful Use Diagnoses (Choose all that apply): CHF - CHF CHADD/ARB ordered at discharge?: No Reason CHADD/ARB not ordered?: Drug Interaction - lasix Documented LVEF (%): 60
--- NOTE | 2017-04-27 14:34 | DS.PCM_ITS ---
Discharge Date and Diagnosis - Problem List Patient Problems: Active and Suspected Problems (Last Updated 04/26/17 @ 09:57 by Maureen Marshall NP-C) CHF (congestive heart failure) (Acute) Acute on chronic respiratory failure with hypoxia and hypercapnia (Acute) Date of Admission: 04/24/17 Date of Discharge: 04/27/17 - Primary Discharge Diagnosis Active and Suspected Problems (Last Updated 04/26/17 @ 09:57 by Maureen Marshall NP-C) Acute diastolic CHF exacerbation Acute on chronic respiratory failure with hypoxia and hypercapnia (Acute) COPD Pulmonary fibrosis Pulmonary hypertension Severe aortic stenosis Type 2 diabetes Hypertension Hyperlipidemia Iron deficiency anemia History of tobacco abuse Anxiety and depression - Secondary Discharge Diagnosis Chronic Problems (Last Updated 04/26/17 @ 09:57 by Maureen Marshall NP-C) Debility, unspecified (Chronic) Nonrheumatic aortic (valve) stenosis (Chronic) Left atrial enlargement (Chronic) Hypersomnia (Chronic) Anemia (Chronic) Palpitations (Chronic) Carotid artery stenosis (Chronic) Lumbago (Chronic) Chronic hypoxemic respiratory failure (Chronic) Pulmonary fibrosis (Chronic) 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 3 severe COPD by GOLD classification (Chronic) Aortic stenosis (Chronic) Moderate to severe with valve area 1.1 on cardiac catheterization in 2013 Diabetes mellitus type II (Chronic) Pulmonary hypertension (Chronic) With PA pressures 55 by cardiac catheterization Hypertension (Chronic) HLD (hyperlipidemia) (Chronic) 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 CT/CTA Chest W/WO Contrast IMPRESSION: Study significantly limited by patient motion. No central or proximal segmental pulmonary embolus. Subsegmental atelectasis. Otherwise, grossly clear lungs. Coronary artery disease. Zack - pulm Operations: None Procedures: None Summary of Care Provided: Physical exam on day of discharge: General: Resting comfortably NAD Psych: A/Ox3 normal affect HEENT: PEARRLA AT NC Neck: Supple NT CV: RRR no m/t/r/g/h Resp: CTA severely diminished Abd: [id number] Soft NT no guarding or rigidity Ext: DP2+= 1-2+ pitting edema Skin: W/D normal turgor Lymph/Heme: No active bleeding or adenopathy Neuro: CN2-12 intact Hospital course: The patient is a 66 year old F who presented to the emergency room with increased shortness of breath. Patient has a severe history of lung disease with chronic hypoxic respiratory failure requiring 6 L of oxygen, COPD, diastolic CHF, pulmonary hypertension, pulmonary fibrosis, severe aortic stenosis for which she is being evaluated as an outpatient for a possible valve replacement. She was recently in the hospital for acute cor pulmonale. She had been home for about a month and deteriorated. She was admitted to the hospital, pulmonary consulted, placed on BiPAP. Chest x-ray demonstrated congestive heart failure and she had an elevated BNP. She had no fever or white count. ABGs demonstrated hypoxia, hypercarbia, respiratory acidosis which did improve with BiPAP. She was initially started on IV Lasix, IV Levaquin and Solu-Medrol. Pulmonary did not feel there was a COPD exacerbation steroids were discontinued. There is no underlying infectious process so antibiotics were discontinued. She did have an elevated d-dimer so CT of the chest was done which did not reveal any PE. She diuresed significantly with IV Lasix. This was transitioned to a dose of 80 mg twice daily for home. Renal function remained stable. She will need to have her CBC and BMP followed closely with these changes. Patient had significant anemia and iron studies were decreased that she was given Venofer ?2. She was unable to provide a stool sample to assess for occult blood. She has dark stools but is chronically on iron which we advised to continue at this time. She was seen by PTOT and qualified for SNF placement which she desired so this was arranged. She will need close follow up with her cardiothoracic surgeon at the [facility] as she may need to have her valve replaced. This was discussed with her and we strongly advised she see this doctor within 2 weeks. 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 She is [facility] to [facility] in stable condition. Please continue oxygen at 6 L to keep sats greater than 89 %, and BiPAP at night. This patient was seen by Shemar Butcher PA-C under the supervision of Doctor Negrete. [] Discharge Diet: Low fat/ Low Cholesterol, 1800 Calorie Control Diet, 2000 mg Sodium Diet Discharge Activity: Return to Normal Activity Home Medications: Medications to take at Discharge Metformin HCl [Glucophage] 1,000 mg PO BIDCM 01/15/14 Simvastatin [Zocor] 20 mg PO QHS 01/15/14 Ferrous Sulfate 325 mg PO BID 04/09/14 Escitalopram Oxalate [Lexapro] 10 mg PO DAILY 06/29/15 Metoprolol Tartrate [Lopressor (beta lorena)] 50 mg PO BID 06/29/15 Trazodone HCl [Desyrel] 100 mg PO QHS PRN PRN 06/29/15 Albuterol Inhaler [Ventolin Hfa] 2 puff INHALATION Q4H PRN PRN #2 inhaler Budesonide/Formoterol Fumarate [Symbicort 160-4.5 Mcg Inhaler] 2 puff IH BID 01/02 Fluticasone 0.05% [Flonase Nasal [place]] 1 spray NASAL BID 04/24/17 Furosemide [Lasix] 80 mg PO BIDLX #60 tablet 04/27/17 Following Prescrptions Were Given to Patient: Furosemide [Lasix] 80 mg PO BIDLX #60 tablet Primary Care Physician: Vic Chen MD [Primary Care Provider] - Please follow up with your Primary Care Physician in: 2 weeks Please Follow Up With: Your [facility] Cardiolgist - Reevaluate your Heart Valve When: 2 weeks Please Follow Up With: Rajesh Dixon MD When: 2 weeks Disposition: Nursing Home facility Minutes spent on discharge:: 40 Patient Condition:: Stable Meaningful Use Info Meaningful Use Diagnoses (Choose all that apply): CHF - CHF CHADD/ARB ordered at discharge?: No Reason CHADD/ARB not ordered?: Drug Interaction - lasix Documented LVEF (%): 60
== END 2017-04-27 14:25 | disposition skilled nursing facility (03) | DRG 291 ==
LOC: ED 17:06 → PCU 19:15
PROVIDERS: Physician Assistant; Admitting Provider Internal Medicine; Emergency Provider Emergency Medicine; Family Provider Family Medicine; PCP Family Medicine; Visit Provider Internal Medicine
DX: I11.0 Hypertensive heart disease with heart failure (principal); J96.21 Acute and chronic respiratory failure with hypoxia; I27.20 Pulmonary hypertension, unspecified; E66.01 Morbid (severe) obesity due to excess calories; J84.10 Pulmonary fibrosis, unspecified; Z68.42 Body mass index [BMI] 45.0-49.9, adult; J96.22 Acute and chronic respiratory failure with hypercapnia; E11.9 Type 2 diabetes mellitus without complications; D50.9 Iron deficiency anemia, unspecified; I50.33 Acute on chronic diastolic (congestive) heart failure; Z99.81 Dependence on supplemental oxygen; E78.5 Hyperlipidemia, unspecified; J44.9 Chronic obstructive pulmonary disease, unspecified; Z79.84 Long term (current) use of oral hypoglycemic drugs; I35.0 Nonrheumatic aortic (valve) stenosis; F32.9 Major depressive disorder, single episode, unspecified; F17.201 Nicotine dependence, unspecified, in remission
CPT/HCPCS: 36415; 36600; 51702; 71045; 71275; 80048; 82728; 82803; 82962; 83540; 83550; 83605; 83880; 84484; 85025; 85027; 85379; 87040; 87633; 87804; 93005; 94002; 94003; 94640; 94660; 94762; 97116; 97162; 97166; 97530; 97535; 99285; J1756; J7030; Q9967; A4216; J1940

== ENCOUNTER 2017-05-30 11:47 | Inpatient (IN) | payer MEDICARE, OTHER, SELFPAY ==
[2017-05-30] VITALS (25 sets, daily range): BP systolic 92–156; BP diastolic 46–79; PULSE 75–92; RESP 12–24; TEMP 35.8–36.7; O2SAT 75–100; BMI 44.2; BMI 44.3; BMI 46.5
--- NOTE | 2017-05-30 | RAD_ITS ---
STUDY: X-RAY CHEST REASON FOR EXAM: Female, 66 years old. Increasing shortness of breath. TECHNIQUE: Single AP portable view of the chest. COMPARISON: Comparison is made with prior examination dated April 24, 2017. FINDINGS: EKG electrodes are seen. There is evidence of pulmonary vascular congestion in keeping with a mild degree of CHF. There is no demonstrated pleural abnormality. There is moderate cardiac enlargement. Normal mediastinum and deepthi. Normal visualized pulmonary arteries. There is atherosclerotic calcification of the aortic arch with tortuosity. Normal visualized thoracic spine. Normal visualized ribs, clavicles, and shoulders. There is no demonstrated abnormality of the visualized soft tissue structures of the upper abdomen. RAD/Chest 1 View (Portable) IMPRESSION: Cardiomegaly and mild CHF. Electronically Signed: Jonah Conner MD at 12:39 EDT Tel [phone], Service support ,
--- NOTE | 2017-05-30 11:52 | EKG12_ITS ---
Test Reason : SOB Blood Pressure : / mmHG Vent. Rate : 082 BPM Atrial Rate : 082 BPM P-R Int : 130 ms QRS Dur : 138 ms QT Int : 430 ms P-R-T Axes : 069 078 023 degrees QTc Int : 502 ms Normal sinus rhythm Right bundle branch block Abnormal ECG Confirmed by EJ PETERSON ([id number]), editor greeting card [employer]A [employer] ([id number]) on 06/03/2017 1:47:45 PM Referred By: LISBET Confirmed By:EJ PETERSON
--- NOTE | 2017-05-30 11:58 | ED.RN ---
PLACED ON VENTI MASK 50% PER DR FRAUSTO REQUEST
[2017-05-30 12:10] LABS: Allen Test POS; Base Excess 18 mmol/L (-2 to +2); Bicarbonate 43.9 mmol/L (22-26); Blood Gas Specimen Type ART; FI02 50; PO2 76 mmHG (75-100); SITE L Radial; SO2 93 % (95-99); Time Given 1208; Total Carbon Dioxide 46 mmol/L; pH 7.35 (7.35-7.45)
[2017-05-30 12:28] LABS: Absolute Lymphocyte Count 0.46 X10^3/ul (0.83-4.51); Absolute Neutrophil Count 14.7 X10^3/uL (2.0-7.7); Basophil# 0.04 X10^3/uL; Basophil% 0.2 % (0-1); Eosinophil# 0.14 X10^3/uL; Eosinophils% 0.8 % (0-5); Hematocrit 29.1 % (37-47); Hemoglobin 7.7 g/dl (12.0-15.0); International Normalized Ratio 1.2; Lymphocyte # 0.46 X10^3/ul (4.0); Lymphocyte % 2.8 % (19-41); Mean Corp Hgb Conc 26.5 g/gl (32-36); Mean Corpuscular Hgb 25.5 pg (27.0-32.0); Mean Corpuscular Volume 96.4 fL (81-99); Mean Platelet Vol. 9.3 fl (6.2-12.0); Monocyte% 7.2 % (0-10); Neutrophil # 14.67 X10^3/uL (2.7-7.7); Neutrophil % 88.3 % (47-70); Platelet Count 504 K/mm3 (150-450); Prothrombin Time (Protime)PT. 14.9 SECONDS (11.7-14.9); RBC Distribution Width SD 59.3 fl (35.1-43.9); Red Blood Count 3.02 M/mm3 (4.2-5.4); White Blood Count 16.6 K/mm3 (4.4-11.0)
[2017-05-30 12:29] LABS: Partial Thromboplast Time 35.6 Seconds (24.1-36.2)
[2017-05-30 12:31] LABS: Differential Indicated SCAN CRITERIA MET; POSITIVE COUNT NO; POSITIVE DIFFERENTIAL YES; POSITIVE MORPHOLOGY NO
[2017-05-30 12:33] LABS: NRBC Flagged by Analyzer 0.6 % (0-5)
[2017-05-30 12:39] LABS: Anion Gap 3 (5-15); BUN 17 mg/dL (7-18); BUN/Creat Ratio 19.4 RATIO (10-20); Calcium,Total 8.2 mg/dL (8.5-10.1); Chloride 93 mmol/L (98-107); Creatinine, Serum 0.88 mg/dL (0.55-1.02); EST Glomerular Filtration Rate 68 mL/min (>60); Est Glom Filt Rate - Afr Amer 82 mL/min (>60); Estimated Creatinine Clearance 50.61 ml/min; Glucose 144 mg/dL (74-106); Potassium 4.1 mmol/L (3.5-5.1); Sodium Level 138 mmol/L (136-145)
--- NOTE | 2017-05-30 13:24 | ED.RN ---
lactic acid 2.[address] lab[address] dr tirado aware
--- NOTE | 2017-05-30 14:13 | ED.VISSUMM ---
- ER Visit Summary Date of Service: 05/30/17 Chief Complaint: Abrupt onset of shortness of breath. History of Present Illness: The patient is a 66 F onset of shortness of breath. She denies any chest pressure, tightness or heaviness. She states she has similar episode 1 month ago. That chart was reviewed and it was determined that she had diastolic CHF as well as acute on chronic respiratory height hypoxia and chronic CO2 retention. She reports increased swelling of her lower extremities. She denies fever or chills. She does complain of sweating. She has intermittent mild chest discomfort and heart racing. He does report chronic orthopnea and sleeps in a chair upright. She has not weighed herself. She states her darklight inspector Dr. Xavier. Past history of diastolic CHF, stage III CO PD patient on continuous oxygen, type 2 diabetes, hypertension, obstructive sleep apnea. She reports compliance with her BiPAP machine. She also has history of pulmonary fibrosis, pulmonary hypertension as well as aortic valvular disease. She has seen Dr. Dixon in the past for her chronic hypoxemia. Her darklight inspector is Dr. Xavier. Cardiology was paged to notify of patient's recurrent admission and for advice. Physical Examination: Vital signs are remarkable for tachypnea and elevated blood pressure. Pulse ox was 75% on 6 L. She is heavyset. She appears pale and is diaphoretic. She is in obvious respiratory distress. HEENT exam is remarkable pale conjunctival. Heart is regular without appreciable murmur, gallop or rub. Lungs revealed minimal to no air movement. Abdomen is soft nontender. Lower extremities are marked with 3+ pitting edema with venous stasis dermatitis. She is alert oriented. Neuro exam is nonfocal. Test Results: EKG was obtained and reveals a sinus rhythm with a right bundle branch block and unchanged from prior. Chest x-ray reveals mild cardiomegaly and mild CHF. White count elevated 16.6 thousand with an H&H 7.7 and 29.1. There are 88% segs with no bands. Electrode panel was marked for CO2 of 42 and glucose 144. Coags normal. Troponin 0 0.04 and most likely elevated secondary to congestive heart failure. Lactate is 2.0. Blood gas reveals an acute on chronic hypoxemia with chronic CO2 retention. PH 7.34, PCO2 80, PaO2 76, bicarb 43.3 with base excess of +18 on 50% Venturi mask. Patient was placed on BiPAP. Her respiratory effort decreased and distress improved. Emergency Department Course and Treatment: Workup was undertaken to rule out pneumonia versus CHF versus exacerbation COPD versus pneumothorax. Doubt pulmonary embolus. Patient had similar presentation April 24 and had a CTA at that time which was negative. Treatment Plan: IPAP admission to the hospital with cardiology consultation Disposition: Admit PCU versus ICU after discussion with cardiology Impression: 1. Respiratory failure with acute on chronic hypoxemia and chronic CO2 retention 2. Diastolic CHF 3. Anemia 4. History of stage III COPD 5. History of type 2 diabetes 6. History of hypertension 7. History of aortic stenosis 8. History of pulmonary fibrosis 9. History of pulmonary hypertension 10. History obstructive sleep apnea This note was generated with [employer] dictation software. It may contain incorrect words, spelling, and punctuation that were not noted in review of the chart prior to signing ED Disposition - Plan for ED Patient: Chief Complaint: Shortness of Breath Referrals: Vic Chen MD [Primary Care Provider] -
--- NOTE | 2017-05-30 14:16 | CPS ---
PATIENT TAKEN OF BIPAP TO USE BEDSIDE COMMODE. PLACED ON 6LPM NASAL CANNULA.
--- NOTE | 2017-05-30 14:20 | ED.DCSUM_ITS ---
- ER Visit Summary Date of Service: 05/30/17 Chief Complaint: Abrupt onset of shortness of breath. History of Present Illness: The patient is a 66 F onset of shortness of breath. She denies any chest pressure, tightness or heaviness. She states she has similar episode 1 month ago. That chart was reviewed and it was determined that she had diastolic CHF as well as acute on chronic respiratory height hypoxia and chronic CO2 retention. She reports increased swelling of her lower extremities. She denies fever or chills. She does complain of sweating. She has intermittent mild chest discomfort and heart racing. He does report chronic orthopnea and sleeps in a chair upright. She has not weighed herself. She states her order picker Dr. Xavier. Past history of diastolic CHF, stage III CO PD patient on continuous oxygen, type 2 diabetes, hypertension, obstructive sleep apnea. She reports compliance with her BiPAP machine. She also has history of pulmonary fibrosis, pulmonary hypertension as well as aortic valvular disease. She has seen Dr. Dixon in the past for her chronic hypoxemia. Her order picker is Dr. Xavier. Cardiology was paged to notify of patient's recurrent admission and for advice. Physical Examination: Vital signs are remarkable for tachypnea and elevated blood pressure. Pulse ox was 75% on 6 L. She is heavyset. She appears pale and is diaphoretic. She is in obvious respiratory distress. HEENT exam is remarkable pale conjunctival. Heart is regular without appreciable murmur, gallop or rub. Lungs revealed minimal to no air movement. Abdomen is soft nontender. Lower extremities are marked with 3+ pitting edema with venous stasis dermatitis. She is alert oriented. Neuro exam is nonfocal. Test Results: EKG was obtained and reveals a sinus rhythm with a right bundle branch block and unchanged from prior. Chest x-ray reveals mild cardiomegaly and mild CHF. White count elevated 16.6 thousand with an H&H 7.7 and 29.1. There are 88% segs with no bands. Electrode panel was marked for CO2 of 42 and glucose 144. Coags normal. Troponin 0 0.04 and most likely elevated secondary to congestive heart failure. Lactate is 2.0. Blood gas reveals an acute on chronic hypoxemia with chronic CO2 retention. PH 7.34, PCO2 80, PaO2 76, bicarb 43.3 with base excess of +18 on 50% Venturi mask. Patient was placed on BiPAP. Her respiratory effort decreased and distress improved. Emergency Department Course and Treatment: Workup was undertaken to rule out pneumonia versus CHF versus exacerbation COPD versus pneumothorax. Doubt pulmonary embolus. Patient had similar presentation April 24 and had a CTA at that time which was negative. Treatment Plan: IPAP admission to the hospital with cardiology consultation Disposition: Admit PCU versus ICU after discussion with cardiology Impression: 1. Respiratory failure with acute on chronic hypoxemia and chronic CO2 retention 2. Diastolic CHF 3. Anemia 4. History of stage III COPD 5. History of type 2 diabetes 6. History of hypertension 7. History of aortic stenosis 8. History of pulmonary fibrosis 9. History of pulmonary hypertension 10. History obstructive sleep apnea This note was generated with [employer] dictation software. It may contain incorrect words, spelling, and punctuation that were not noted in review of the chart prior to signing ED Disposition - Plan for ED Patient: Chief Complaint: Shortness of Breath Referrals: Vic Chen MD [Primary Care Provider] -
--- NOTE | 2017-05-30 16:02 | PCM.HP.STD ---
Problem List (1) Nonrheumatic aortic (valve) stenosis Status: Chronic (2) Anemia Status: Chronic Qualifiers: (3) Carotid artery stenosis Status: Chronic (4) Chronic hypoxemic respiratory failure Status: Chronic (5) Stage 3 severe COPD by GOLD classification Status: Chronic (6) Diabetes mellitus type II Status: Chronic (7) Pulmonary hypertension Status: Chronic Comment: With PA pressures 55 by cardiac catheterization (8) Hypertension Status: Chronic Qualifiers: (9) HLD (hyperlipidemia) Status: Chronic Qualifiers: (10) GI AVM (gastrointestinal arteriovenous vascular malformation) Status: Chronic History of Present Illness Date of Admission: 05/30/17 Chief Complaint: Shortness of breath. The patient is a 66 year old F with complicated past medical history presented to the emergency room because of sudden onset shortness of breath. She does have a history of chronic shortness of breath which is multifactorial secondary to multiple reasons but today, she mentioned that she has been more short of breath than usual, at rest, aggravated by minimal activity, not relieving by rest, associated with mild dry cough without sputum production and her oxygen saturation was in the 80s while on 5 L of oxygen which is her baseline at home. She denied chest pain, palpitation, dizziness or lightheadedness. She denies fever or chills. She reported minimal increase of the bilateral lower extremity edema. Also, she reported nosebleed this morning which was small amount and stopped. In the emergency room, patient was dyspneic and tachypneic. Initial pulse oximeter was 75% on 6 L of oxygen. She was afebrile, blood pressure and heart rate was stable. Her routine blood work is remarkable for leukocytosis, hemoglobin 7.7. ABG revealed pH of 7.35, PCO2 of 80 and PO2 of 76. Troponin was negative. EKG revealed normal sinus rhythm with right bundle branch block, no acute changes. Chest x-ray revealed cardiomegaly with bilateral basilar pulmonary vascular congestion which seem more worse than most recent chest x-ray. He is being admitted for acute on chronic hypoxic and hypercapnic respiratory failure and acute on chronic diastolic CHF. Past Medical History Past Medical History (Chronic Problems): Chronic Problems (Last Updated 05/30/17 @ 16:02 by David Montana MD) Debility, unspecified (Chronic) Nonrheumatic aortic (valve) stenosis (Chronic) Left atrial enlargement (Chronic) Hypersomnia (Chronic) Anemia (Chronic) Carotid artery stenosis (Chronic) Chronic hypoxemic respiratory failure (Chronic) Pulmonary fibrosis (Chronic) 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 3 severe COPD by GOLD classification (Chronic) Aortic stenosis (Chronic) Moderate to severe with valve area 1.1 on cardiac catheterization in 2013 Diabetes mellitus type II (Chronic) Pulmonary hypertension (Chronic) With PA pressures 55 by cardiac catheterization Hypertension (Chronic) HLD (hyperlipidemia) (Chronic) 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) Allergies aspirin Allergy (Verified 05/30/17 11:59) anemia Home Medications: Ambulatory Orders Medication Instructions Recorded Metformin HCl [Glucophage] 1,000 mg PO BIDCM 01/15/14 Simvastatin [Zocor] 20 mg PO QHS 01/15/14 Ferrous Sulfate 325 mg PO BID 04/09/14 Escitalopram Oxalate [Lexapro] 10 mg PO DAILY 06/29/15 Trazodone HCl [Desyrel] 100 mg PO QHS PRN PRN 06/29/15 Albuterol Inhaler [Ventolin Hfa] 2 puff INHALATION Q4H PRN PRN #2 10/02/15 inhaler Budesonide/Formoterol Fumarate 2 puff IH BID 03/27/17 [Symbicort 160-4.5 Mcg Inhaler] Fluticasone 0.05% [Flonase Nasal 1 spray NASAL BID 04/24/17 [place]] Furosemide [Lasix] 80 mg PO BIDLX #60 tab 04/27/17 metoprolol tartrate 50 mg tablet 50 mg PO BID #180 tab 05/30/17 Surgical History: herniorrhaphy, hysterectomy, - Psychiatric History: No pertinent psych hx 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 Denies: Chest Pain, Chest Pressure, Heaviness, Light Headedness, Orthopnea, Paroxysmal Noc. Dyspnea, Syncope Respiratory: Reports: Cough, Pleuritic Pain, Shortness of Breath, Shortness of breath at rest, Shortness of breath upon exertion. Denies: Sputum production, Wheezing Gastrointestinal: Denies: Abdominal Pain, Constipation, Diarrhea, Nausea, Vomiting Genitourinary: Denies: Dysuria, Frequency, Hematuria Musculoskeletal: Denies: Arm Pain, Back Pain, Foot Pain Skin: Denies: Dryness, Rash Neurological: Denies: Balance problems, Double vision, Change in Speech, Slurred speech, Confusion, Headaches, Incoordination, Numbness Psychiatric: Denies: Anxiety, Depression Endocrine: Denies: Change in Body Habitus, Polydipsia VTE Information - Inpt Only VTE Present on Admission: No VTE Mechan Device Prophylaxis: None VTE Pharm Prophylaxis ordered?: Yes - Physical Exam General: Alert, Oriented x3, Cooperative, - - Moderately short of breath. HEENT: Atraumatic, PERRLA, EOMI Oral: Moist Mucosa, No Gingival or Mucosal Lesions/ Ulcerations Neck: Supple, No JVD, Negative Carotid Bruits, Trachea Midline, Thyroid Normal Size and Texture Lungs: Diminished, Rhonchi, Short of Breath, Tachypneic, - - Markedly decreased breath sounds bilateral, rhonchi. Cardiovascular: Regular rate, Regular Rhythm, Normal S1, Normal S2, PMI Normal Abdomen: Bowel Sounds Present, Soft, Non Tender, Non-Distended, No Hepato-splenomegaly, Obese Extremities: No clubbing, No cyanosis, Edema - + Edema. Skin: No rashes, No breakdown Lymphatic: No Cervical, Supraclavicular, or Inguinal Adenopathy Neurological: Cranial nerves II-XII grossly intact, Motor Exam 5/5 strength throughout Psych/Mental Status: Normal Affect, Appropriate, Alert and oriented to time, place, person, mood and affect Vital Signs Temp Pulse Resp BP Pulse Ox 98.1 F 83 18 118/47 L 94 05/30/17 11:49 05/30/17 14:38 05/30/17 14:38 05/30/17 14:38 05/30/17 14:38 Oxygen Flow Rate (L/min) 6 Oxygen Delivery Method Nasal Cannula Laboratory Tests 05/30/17 05/30/17 05/30/17 Range/Units 12:07 12:07 12:07 WBC (4.4-11.0) K/mm3 RBC (4.2-5.4) M/mm3 Hgb (12.0-15.0) g/dl Hct (37-47) % MCV (81-99) fL MCH (27.0-32.0) pg MCHC (32-36) g/gl RDW (11.6-14.6) % RDW Differential (35.1-43.9) fl Plt Count (150-450) K/mm3 MPV (6.2-12.0) fl Immature Gran % (Auto) (0.0-0.9) % Neut % (Auto) (47-70) % Lymph % (Auto) (19-41) % [place] % (Auto) (0-10) % Eos % (Auto) (0-5) % Baso % (Auto) (0-1) % Absolute Neuts (auto) (2.0-7.7) X10^3/uL Absolute Lymphs (auto) (0.83-4.51) X10^3/ul Total Counted Nucleated RBC % (0-5) % Differential Comment Absolute Retic (0-5) 10^3/uL PT (11.7-14.9) SECONDS INR APTT (24.1-36.2) Seconds Specimen Type ART Sample Site L Radial pH 7.35 (7.35-7.45) Bicarbonate Actual 43.9 H (22-26) mmol/L POC Total CO2 46 mmol/L Base Excess 18 H (-2 to +2) mmol/L O2 Saturation 93 L (95-99) % O2 % 50 ABG pCO2 80.0 H* (35-45) mmHg ABG pO2 76 (75-100) mmHG Luis Fernando Test POS O2 Delivery Device Vent Mask Blood Gas Notified Whom ED Blood Gas Notified Time 1208 Sodium 138 (136-145) mmol/L Potassium 4.1 (3.5-5.1) mmol/L Chloride 93 L (98-107) mmol/L Carbon Dioxide 42.0 H (21.0-32.0) mmol/L Anion Gap 3 L (5-15) BUN 17 (7-18) mg/dL Creatinine 0.88 (0.55-1.02) mg/dL Estim Creat Clear Calc 50.61 ml/min Est GFR (MDRD) Af Amer 82 (>60) mL/min Est GFR (MDRD) Non-Af 68 (>60) mL/min BUN/Creatinine Ratio 19.4 (10-20) RATIO Glucose 144 H (74-106) mg/dL Lactic Acid 2.0 (0.4-2.0) mmol/L Calcium 8.2 L (8.5-10.1) mg/dL Troponin I 0.04 (<0.06) ng/mL 05/30/17 05/30/17 Range/Units 12:07 12:07 WBC 16.6 H (4.4-11.0) K/mm3 RBC 3.02 L (4.2-5.4) M/mm3 Hgb 7.7 L (12.0-15.0) g/dl Hct 29.1 L (37-47) % MCV 96.4 (81-99) fL MCH 25.5 L (27.0-32.0) pg MCHC 26.5 L (32-36) g/gl RDW 17.0 H (11.6-14.6) % RDW Differential 59.3 H (35.1-43.9) fl Plt Count 504 H (150-450) K/mm3 MPV 9.3 (6.2-12.0) fl Immature Gran % (Auto) 0.700 (0.0-0.9) % Neut % (Auto) 88.3 H (47-70) % Lymph % (Auto) 2.8 L (19-41) % [place] % (Auto) 7.2 (0-10) % Eos % (Auto) 0.8 (0-5) % Baso % (Auto) 0.2 (0-1) % Absolute Neuts (auto) 14.7 H (2.0-7.7) X10^3/uL Absolute Lymphs (auto) 0.46 L (0.83-4.51) X10^3/ul Total Counted Not Reportable Nucleated RBC % 0.6 (0-5) % Differential Comment COMMENT Absolute Retic 0.10 (0-5) 10^3/uL PT 14.9 (11.7-14.9) SECONDS INR 1.2 APTT 35.6 (24.1-36.2) Seconds Specimen Type Sample Site pH (7.35-7.45) Bicarbonate Actual (22-26) mmol/L POC Total CO2 mmol/L Base Excess (-2 to +2) mmol/L O2 Saturation (95-99) % O2 % ABG pCO2 (35-45) mmHg ABG pO2 (75-100) mmHG Luis Fernando Test O2 Delivery Device Blood Gas Notified Whom Blood Gas Notified Time Sodium (136-145) mmol/L Potassium (3.5-5.1) mmol/L Chloride (98-107) mmol/L Carbon Dioxide (21.0-32.0) mmol/L Anion Gap (5-15) BUN (7-18) mg/dL Creatinine (0.55-1.02) mg/dL Estim Creat Clear Calc ml/min Est GFR (MDRD) Af Amer (>60) mL/min Est GFR (MDRD) Non-Af (>60) mL/min BUN/Creatinine Ratio (10-20) RATIO Glucose (74-106) mg/dL Lactic Acid (0.4-2.0) mmol/L Calcium (8.5-10.1) mg/dL Troponin I (<0.06) ng/mL Clinical Impression(s) from Imaging Studies Chest X-Ray 05/30/17 00:00 IMPRESSION: Cardiomegaly and mild CHF. Electronically Signed: Jonah Conner MD at 12:39 EDT Tel [phone], Service support , Assessment/Plan This is a 66 years old female patient presented to the emergency room because of worsening shortness of breath and worsening hypoxia and she was found to have acute on chronic diastolic CHF and acute on chronic hypoxic and hypercapnic respiratory failure as well as acute on chronic anemia requiring blood transfusion. #1 acute on chronic hypoxic and hypercapnic respiratory failure: Normal, she is on oxygen at home at 5 L. Today, she came in because of worsening shortness of breath, pulse ox was 75% on 6 L. ABG reviewed as above. She is a chronic CO2 retainer. Chest x-ray reviewed, revealed findings consistent with pulmonary vascular congestion. Plan: Admit to PCU, cardiac monitoring, serial cardiac enzymes, dialysis, bronchodilators, pulmonary consult,, PT OT evaluation and treatment. #2 acute on chronic diastolic CHF/cor pulmonale: Chest x-ray reviewed. She had a history of severe aortic stenosis and she supposed to to [facility] for evaluation for aortic valve replacement. EKG revealed normal sinus rhythm with right bundle branch block, no acute changes. Troponin is negative. Plan: Serial cardiac enzymes, repeat EKG tomorrow morning, IV Lasix for diuresis, cardiology consult, fluid restriction to less than 1500 cc daily, input output chart, repeat CBC and BMP tomorrow morning. #3 acute on chronic anemia: Admission hemoglobin is 7.7. At this time, no evidence of active bleeding. She did complain of epistaxis ?1 this morning which was small amount. She has no more epistaxis at this time. Baseline hemoglobin is around 8-9 g/dL. Plan: Transfuse 1 unit of packed RBCs, repeat CBC tomorrow morning. #4 severe aortic stenosis: Patient has been following up with cardiology and she is supposed to go to [facility] for evaluation for valve replacement. Plan as above. #5 severe COPD: DuoNeb every 6 hours, albuterol as needed, oxygen by nasal cannula to maintain O2 saturation above 92%. #6 type 2 diabetes mellitus: ADA diet, Accu-Cheks, insulin sliding scale, hold metformin. #7 hypertension: Blood pressure stable, continue metoprolol. #8 DVT prophylaxis: SCDs. Other chronic medical problems: #1 hyperlipidemia. #2 pulmonary hypertension. #3 chronic anemia. #4 history of GI AVMs. This note was generated with [employer] dictation software. It may contain incorrect words, spelling, and punctuation that were not noted in checking the note before signing. Code Visit Inpatient E&M: 32103 Init Hosp L3
--- NOTE | 2017-05-30 16:10 | HP.PCM_ITS ---
Problem List (1) Nonrheumatic aortic (valve) stenosis Status: Chronic (2) Anemia Status: Chronic Qualifiers: (3) Carotid artery stenosis Status: Chronic (4) Chronic hypoxemic respiratory failure Status: Chronic (5) Stage 3 severe COPD by GOLD classification Status: Chronic (6) Diabetes mellitus type II Status: Chronic (7) Pulmonary hypertension Status: Chronic Comment: With PA pressures 55 by cardiac catheterization (8) Hypertension Status: Chronic Qualifiers: (9) HLD (hyperlipidemia) Status: Chronic Qualifiers: (10) GI AVM (gastrointestinal arteriovenous vascular malformation) Status: Chronic History of Present Illness Date of Admission: 05/30/17 Chief Complaint: Shortness of breath. The patient is a 66 year old F with complicated past medical history presented to the emergency room because of sudden onset shortness of breath. She does have a history of chronic shortness of breath which is multifactorial secondary to multiple reasons but today, she mentioned that she has been more short of breath than usual, at rest, aggravated by minimal activity, not relieving by rest, associated with mild dry cough without sputum production and her oxygen saturation was in the 80s while on 5 L of oxygen which is her baseline at home. She denied chest pain, palpitation, dizziness or lightheadedness. She denies fever or chills. She reported minimal increase of the bilateral lower extremity edema. Also, she reported nosebleed this morning which was small amount and stopped. In the emergency room, patient was dyspneic and tachypneic. Initial pulse oximeter was 75% on 6 L of oxygen. She was afebrile, blood pressure and heart rate was stable. Her routine blood work is remarkable for leukocytosis, hemoglobin 7.7. ABG revealed pH of 7.35, PCO2 of 80 and PO2 of 76. Troponin was negative. EKG revealed normal sinus rhythm with right bundle branch block, no acute changes. Chest x-ray revealed cardiomegaly with bilateral basilar pulmonary vascular congestion which seem more worse than most recent chest x-ray. He is being admitted for acute on chronic hypoxic and hypercapnic respiratory failure and acute on chronic diastolic CHF. Past Medical History Past Medical History (Chronic Problems): Chronic Problems (Last Updated 05/30/17 @ 16:02 by David Montana MD) Debility, unspecified (Chronic) Nonrheumatic aortic (valve) stenosis (Chronic) Left atrial enlargement (Chronic) Hypersomnia (Chronic) Anemia (Chronic) Carotid artery stenosis (Chronic) Chronic hypoxemic respiratory failure (Chronic) Pulmonary fibrosis (Chronic) 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 3 severe COPD by GOLD classification (Chronic) Aortic stenosis (Chronic) Moderate to severe with valve area 1.1 on cardiac catheterization in 2013 Diabetes mellitus type II (Chronic) Pulmonary hypertension (Chronic) With PA pressures 55 by cardiac catheterization Hypertension (Chronic) HLD (hyperlipidemia) (Chronic) 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) Allergies aspirin Allergy (Verified 05/30/17 11:59) anemia Home Medications: Ambulatory Orders Medication Instructions Recorded Metformin HCl [Glucophage] 1,000 mg PO BIDCM 01/15/14 Simvastatin [Zocor] 20 mg PO QHS 01/15/14 Ferrous Sulfate 325 mg PO BID 04/09/14 Escitalopram Oxalate [Lexapro] 10 mg PO DAILY 06/29/15 Trazodone HCl [Desyrel] 100 mg PO QHS PRN PRN 06/29/15 Albuterol Inhaler [Ventolin Hfa] 2 puff INHALATION Q4H PRN PRN #2 10/02/15 inhaler Budesonide/Formoterol Fumarate 2 puff IH BID 03/27/17 [Symbicort 160-4.5 Mcg Inhaler] Fluticasone 0.05% [Flonase Nasal 1 spray NASAL BID 04/24/17 [place]] Furosemide [Lasix] 80 mg PO BIDLX #60 tab 04/27/17 metoprolol tartrate 50 mg tablet 50 mg PO BID #180 tab 05/30/17 Surgical History: herniorrhaphy, hysterectomy, - Psychiatric History: No pertinent psych hx BILINGUAL NANNY History: No pertinent BILINGUAL NANNY history Smoking Status: Former smoker Alcohol: None Drugs: None - *Family History Paternal History Items: Heart Disease Maternal History Items: Heart Disease Review of Systems Constitutional: Denies: Anorexia, Chills, Fever, Weakness Eyes: Denies: Blurred vision, Double vision, Drainage, Vision Change HEENT: Denies: Difficulty Hearing, Ear Pain, Eye Pain, Nasal Congestion, Sore Throat Cardiovascular: Reports: Edema. Denies: Chest Pain, Chest Pressure, Heaviness, Light Headedness, Orthopnea, Paroxysmal Noc. Dyspnea, Syncope Respiratory: Reports: Cough, Pleuritic Pain, Shortness of Breath, Shortness of breath at rest, Shortness of breath upon exertion. Denies: Sputum production, Wheezing Gastrointestinal: Denies: Abdominal Pain, Constipation, Diarrhea, Nausea, Vomiting Genitourinary: Denies: Dysuria, Frequency, Hematuria Musculoskeletal: Denies: Arm Pain, Back Pain, Foot Pain Skin: Denies: Dryness, Rash Neurological: Denies: Balance problems, Double vision, Change in Speech, Slurred speech, Confusion, Headaches, Incoordination, Numbness Psychiatric: Denies: Anxiety, Depression Endocrine: Denies: Change in Body Habitus, Polydipsia VTE Information - Inpt Only VTE Present on Admission: No VTE Mechan Device Prophylaxis: None VTE Pharm Prophylaxis ordered?: Yes - Physical Exam General: Alert, Oriented x3, Cooperative, - - Moderately short of breath. HEENT: Atraumatic, PERRLA, EOMI Oral: Moist Mucosa, No Gingival or Mucosal Lesions/ Ulcerations Neck: Supple, No JVD, Negative Carotid Bruits, Trachea Midline, Thyroid Normal Size and Texture Lungs: Diminished, Rhonchi, Short of Breath, Tachypneic, - - Markedly decreased breath sounds bilateral, rhonchi. Cardiovascular: Regular rate, Regular Rhythm, Normal S1, Normal S2, PMI Normal Abdomen: Bowel Sounds Present, Soft, Non Tender, Non-Distended, No Hepato- splenomegaly, Obese Extremities: No clubbing, No cyanosis, Edema - + Edema. Skin: No rashes, No breakdown Lymphatic: No Cervical, Supraclavicular, or Inguinal Adenopathy Neurological: Cranial nerves II-XII grossly intact, Motor Exam 5/5 strength throughout Psych/Mental Status: Normal Affect, Appropriate, Alert and oriented to time, place, person, mood and affect Vital Signs Temp Pulse Resp BP Pulse Ox 98.1 F 83 18 118/47 L 94 05/30/17 11:49 05/30/17 14:38 05/30/17 14:38 05/30/17 14:38 05/30/17 14:38 Oxygen Flow Rate (L/min) 6 Oxygen Delivery Method Nasal Cannula Laboratory Tests 3 05/30/17 05/30/17 05/30/17 Range/Units 12:07 12:07 12:07 WBC (4.4-11.0) K/mm3 RBC (4.2-5.4) M/mm3 Hgb (12.0-15.0) g/dl Hct (37-47) % MCV (81-99) fL MCH (27.0-32.0) pg MCHC (32-36) g/gl RDW (11.6-14.6) % RDW Differential (35.1-43.9) fl Plt Count (150-450) K/mm3 MPV (6.2-12.0) fl Immature Gran % (Auto) (0.0-0.9) % Neut % (Auto) (47-70) % Lymph % (Auto) (19-41) % [place] % (Auto) (0-10) % Eos % (Auto) (0-5) % Baso % (Auto) (0-1) % Absolute Neuts (auto) (2.0-7.7) X10^3/uL Absolute Lymphs (auto) (0.83-4.51) X10^3/ul Total Counted Nucleated RBC % (0-5) % Differential Comment Absolute Retic (0-5) 10^3/uL PT (11.7-14.9) SECONDS INR APTT (24.1-36.2) Seconds Specimen Type ART Sample Site L Radial pH 7.35 (7.35-7.45) Bicarbonate Actual 43.9 H (22-26) mmol/L POC Total CO2 46 mmol/L Base Excess 18 H (-2 to +2) mmol/L O2 Saturation 93 L (95-99) % O2 % 50 ABG pCO2 80.0 H* (35-45) mmHg ABG pO2 76 (75-100) mmHG Luis Fernando Test POS O2 Delivery Device Vent Mask Blood Gas Notified Whom ED Blood Gas Notified Time 1208 Sodium 138 (136-145) mmol/L Potassium 4.1 (3.5-5.1) mmol/L Chloride 93 L (98-107) mmol/L Carbon Dioxide 42.0 H (21.0-32.0) mmol/L Anion Gap 3 L (5-15) BUN 17 (7-18) mg/dL Creatinine 0.88 (0.55-1.02) mg/dL Estim Creat Clear Calc 50.61 ml/min Est GFR (MDRD) Af Amer 82 (>60) mL/min Est GFR (MDRD) Non-Af 68 (>60) mL/min BUN/Creatinine Ratio 19.4 (10-20) RATIO Glucose 144 H (74-106) mg/dL Lactic Acid 2.0 (0.4-2.0) mmol/L Calcium 8.2 L (8.5-10.1) mg/dL Troponin I 0.04 (<0.06) ng/mL 3 05/30/17 05/30/17 Range/Units 12:07 12:07 WBC 16.6 H (4.4-11.0) K/mm3 RBC 3.02 L (4.2-5.4) M/mm3 Hgb 7.7 L (12.0-15.0) g/dl Hct 29.1 L (37-47) % MCV 96.4 (81-99) fL MCH 25.5 L (27.0-32.0) pg MCHC 26.5 L (32-36) g/gl RDW 17.0 H (11.6-14.6) % RDW Differential 59.3 H (35.1-43.9) fl Plt Count 504 H (150-450) K/mm3 MPV 9.3 (6.2-12.0) fl Immature Gran % (Auto) 0.700 (0.0-0.9) % Neut % (Auto) 88.3 H (47-70) % Lymph % (Auto) 2.8 L (19-41) % [place] % (Auto) 7.2 (0-10) % Eos % (Auto) 0.8 (0-5) % Baso % (Auto) 0.2 (0-1) % Absolute Neuts (auto) 14.7 H (2.0-7.7) X10^3/uL Absolute Lymphs (auto) 0.46 L (0.83-4.51) X10^3/ul Total Counted Not Reportable Nucleated RBC % 0.6 (0-5) % Differential Comment COMMENT Absolute Retic 0.10 (0-5) 10^3/uL PT 14.9 (11.7-14.9) SECONDS INR 1.2 APTT 35.6 (24.1-36.2) Seconds Specimen Type Sample Site pH (7.35-7.45) Bicarbonate Actual (22-26) mmol/L POC Total CO2 mmol/L Base Excess (-2 to +2) mmol/L O2 Saturation (95-99) % O2 % ABG pCO2 (35-45) mmHg ABG pO2 (75-100) mmHG Luis Fernando Test O2 Delivery Device Blood Gas Notified Whom Blood Gas Notified Time Sodium (136-145) mmol/L Potassium (3.5-5.1) mmol/L Chloride (98-107) mmol/L Carbon Dioxide (21.0-32.0) mmol/L Anion Gap (5-15) BUN (7-18) mg/dL Creatinine (0.55-1.02) mg/dL Estim Creat Clear Calc ml/min Est GFR (MDRD) Af Amer (>60) mL/min Est GFR (MDRD) Non-Af (>60) mL/min BUN/Creatinine Ratio (10-20) RATIO Glucose (74-106) mg/dL Lactic Acid (0.4-2.0) mmol/L Calcium (8.5-10.1) mg/dL Troponin I (<0.06) ng/mL Clinical Impression(s) from Imaging Studies Chest X-Ray 05/30/17 00:00 IMPRESSION: Cardiomegaly and mild CHF. Electronically Signed: Jonah Conner MD at 12:39 EDT Tel [phone], Service support , Assessment/Plan This is a 66 years old female patient presented to the emergency room because of worsening shortness of breath and worsening hypoxia and she was found to have acute on chronic diastolic CHF and acute on chronic hypoxic and hypercapnic respiratory failure as well as acute on chronic anemia requiring blood transfusion. #1 acute on chronic hypoxic and hypercapnic respiratory failure: Normal, she is on oxygen at home at 5 L. Today, she came in because of worsening shortness of breath, pulse ox was 75% on 6 L. ABG reviewed as above. She is a chronic CO2 retainer. Chest x-ray reviewed, revealed findings consistent with pulmonary vascular congestion. Plan: Admit to PCU, cardiac monitoring, serial cardiac enzymes, dialysis, bronchodilators, pulmonary consult,, PT OT evaluation and treatment. #2 acute on chronic diastolic CHF/cor pulmonale: Chest x-ray reviewed. She had a history of severe aortic stenosis and she supposed to to [facility] for evaluation for aortic valve replacement. EKG revealed normal sinus rhythm with right bundle branch block, no acute changes. Troponin is negative. Plan: Serial cardiac enzymes, repeat EKG tomorrow morning, IV Lasix for diuresis, cardiology consult, fluid restriction to less than 1500 cc daily, input output chart, repeat CBC and BMP tomorrow morning. #3 acute on chronic anemia: Admission hemoglobin is 7.7. At this time, no evidence of active bleeding. She did complain of epistaxis ?1 this morning which was small amount. She has no more epistaxis at this time. Baseline hemoglobin is around 8-9 g/dL. Plan: Transfuse 1 unit of packed RBCs, repeat CBC tomorrow morning. #4 severe aortic stenosis: Patient has been following up with cardiology and she is supposed to go to [facility] for evaluation for valve replacement. Plan as above. #5 severe COPD: DuoNeb every 6 hours, albuterol as needed, oxygen by nasal cannula to maintain O2 saturation above 92%. #6 type 2 diabetes mellitus: ADA diet, Accu-Cheks, insulin sliding scale, hold metformin. #7 hypertension: Blood pressure stable, continue metoprolol. #8 DVT prophylaxis: SCDs. Other chronic medical problems: #1 hyperlipidemia. #2 pulmonary hypertension. #3 chronic anemia. #4 history of GI AVMs. This note was generated with [employer] dictation software. It may contain incorrect words, spelling, and punctuation that were not noted in checking the note before signing. Code Visit Inpatient E&M: 93495 Init Hosp L3
[2017-05-30 16:12] LABS: Reflex Lactate? Y
[2017-05-30 17:05] LABS: Bedside Glucose 164 mg/dL (70-110)
[2017-05-30 17:15] LABS: Lactic Acid 0.7 mmol/L (0.4-2.0)
[2017-05-30] MEDS: Ferrous Sulfate 325 MG Tablet PO (17:15)
[2017-05-30 17:22] LABS: BNP,B-Type NATRIURETIC PEPTIDE 182.2 pg/mL (0-100)
--- NOTE | 2017-05-30 17:57 | PCM.CONS.C ---
Reason for Consult Date of Consultation: 05/30/17 Reason for Consultation: Shortness of breath. History of Present Illness: The patient is a 66 year old F with complicated past medical history presented to the emergency room because of sudden onset shortness of breath. She does have a history of chronic shortness of breath which is multifactorial secondary to multiple reasons but today, she mentioned that she has been more short of breath than usual, at rest, aggravated by minimal activity, not relieving by rest, associated with mild dry cough without sputum production and her oxygen saturation was in the 80s while on 5 L of oxygen which is her baseline at home. She denied chest pain, palpitation, dizziness or lightheadedness. She denies fever or chills. She reported minimal increase of the bilateral lower extremity edema. Also, she reported nosebleed this morning which was small amount and stopped. She does also have a history of aortic stenosis pulmonary hypertension systemic hypertension hyperlipidemia and obstructive lung disease. She apparently had an echocardiogram in March of this year which demonstrated an ejection fraction of 65% and an aortic valve area of 0.95 cm?. She was apparently sent to the [facility] ostensibly for a T AVR procedure but it was felt that this was not significant enough. She is also noted to have a chronic anemia. In the emergency room, patient was dyspneic and tachypneic. Initial pulse oximeter was 75% on 6 L of oxygen. She was afebrile, blood pressure and heart rate was stable. Her routine blood work is remarkable for leukocytosis, hemoglobin 7.7. ABG revealed pH of 7.35, PCO2 of 80 and PO2 of 76. Troponin was negative. EKG revealed normal sinus rhythm with right bundle branch block, no acute changes. Chest x-ray revealed cardiomegaly with bilateral basilar pulmonary vascular congestion which seem more worse than most recent chest x-ray. He is being admitted for acute on chronic hypoxic and hypercapnic respiratory failure and acute on chronic diastolic CHF. [] Past Medical History Allergies/Adverse Reactions: Allergies aspirin Allergy (Verified 05/30/17 11:59) anemia Home Medications: Ambulatory Orders Medication Instructions Recorded Metformin HCl [Glucophage] 1,000 mg PO BIDCM 01/15/14 Simvastatin [Zocor] 20 mg PO QHS 01/15/14 Ferrous Sulfate 325 mg PO BID 04/09/14 Escitalopram Oxalate [Lexapro] 10 mg PO DAILY 06/29/15 Trazodone HCl [Desyrel] 100 mg PO QHS PRN PRN 06/29/15 Albuterol Inhaler [Ventolin Hfa] 2 puff INHALATION Q4H PRN PRN #2 10/02/15 inhaler Budesonide/Formoterol Fumarate 2 puff IH BID 03/27/17 [Symbicort 160-4.5 Mcg Inhaler] Fluticasone 0.05% [Flonase Nasal 1 spray NASAL BID 04/24/17 [place]] Furosemide [Lasix] 80 mg PO BIDLX #60 tab 04/27/17 metoprolol tartrate 50 mg tablet 50 mg PO BID #180 tab 05/30/17 Past Medical History (Chronic Problems): Chronic Problems (Last Updated 05/30/17 @ 16:02 by David Montana MD) Debility, unspecified (Chronic) Nonrheumatic aortic (valve) stenosis (Chronic) Left atrial enlargement (Chronic) Hypersomnia (Chronic) Anemia (Chronic) Carotid artery stenosis (Chronic) Chronic hypoxemic respiratory failure (Chronic) Pulmonary fibrosis (Chronic) 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 3 severe COPD by GOLD classification (Chronic) Aortic stenosis (Chronic) Moderate to severe with valve area 1.1 on cardiac catheterization in 2013 Diabetes mellitus type II (Chronic) Pulmonary hypertension (Chronic) With PA pressures 55 by cardiac catheterization Hypertension (Chronic) HLD (hyperlipidemia) (Chronic) 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) Surgical History: herniorrhaphy, hysterectomy, - Psychiatric History: No pertinent psych hx 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: 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 - *Family History Paternal Family History: Family History (Last Reviewed 05/02/17 @ 11:14 by Yakelin Berkowitz) Mother Heart disease Father CAD (coronary artery disease) Hypertension Brother Hypertension History Items: Heart Disease Maternal Family History: Family History (Last Reviewed 05/02/17 @ 11:14 by Yakelin Berkowitz) Mother Heart disease Father CAD (coronary artery disease) Hypertension Brother Hypertension History Items: Heart Disease Smoking Status: Former smoker Alcohol: None Drugs: None Review of Systems - Review of Systems General: Denies: Fever, Night Sweats, Fatigue Cardiovascular: Reports: Shortness of Breath, Shortness of Breath at Rest, Shortness of Breath with Exertion. Denies: Chest Discomfort, Orthopnea, PND, Peripheral Edema, Palpitations, Lightheadedness, Dizziness, Near Syncope, Syncope Respiratory: Denies: Cough, Sputum Production, Hemoptysis Gastrointestinal: Denies: Hematemesis, Hematochezia, Melena Genitourinary: Denies: Dysuria, Hematuria Skin: Denies: Rash Subjectve: Middle-aged lady in mild respiratory distress Objective: Vital Signs Temp Pulse Resp BP Pulse Ox 98.0 F 88 18 108/47 L 94 05/30/17 16:18 05/30/17 16:18 05/30/17 16:18 05/30/17 16:18 05/30/17 16:18 Oxygen Flow Rate (L/min) 6 Oxygen Delivery Method Venturi Mask Weight: 262 lb 12.656 oz Body Mass Index (BMI) 46.5 Intake and Output for Last 24 Hours 05/28/17 05/29/17 05/30/17 23:59 23:59 23:59 Intake Total 180 / 180 Balance 180 / 180 General: Awake, Alert, Oriented x 3 HEENT: PERRL, EOMI, Sclera Non Icteric Neck: Supple, Good ROM, No Lymph Node Enlargement Lungs: Diminished Param Bases Cardiovascular: Regular Rhythm, Normal S1, Normal S2, No Rubs, No Gallops Murmur Murmur: Grade 3/6, Early Systolic, LLSB Vascular: No Carotid Bruits, Normal Femoral Pulses, Normal Radial Pulses, Normal Dorsalis Pedal Pulse, Normal Posterior Tibial Pulses Abdomen: Bowel Sounds Present, Soft, Non Tender, No HSM, No Organomegaly Extremities: No Cyanosis, No Clubbing, No edema Neurological: No Focal Motor or Sensory Deficit 05/30/17 16:31: B-Natriuretic Peptide 182.2 H 05/30/17 16:31: Troponin I 0.04 05/30/17 16:31: Lactic Acid 0.7 Rhythm: EKG: Normal sinus rhythm with no acute changes Assessment/Plan 1. Shortness of breath. The etiology of the above is likely multifactorial. She does have aortic stenosis but I do not think that it is severe based on the mean gradient. She does have preserved left ventricular systolic function. She is also noted to be markedly anemic and also has obstructive lung disease. In addition her natruretic peptide level is only approximately 180. I will therefore recommend that if possible she be transfused to a hemoglobin of at least 10. Even though the recommendations that patient such as this do not need to be transfused I do feel that in the context of aortic stenosis obstructive lung disease and obesity it may be helpful for her to have a better oxygen carrying capacity. I will discuss this further with the hospitalist in a.m. 2. Valvular heart disease He does have evidence of moderate aortic stenosis at best. I agree that I do not think that she is a candidate for aortic valve replacement at this time. We will continue to monitor her with serial echocardiograms. I would like to reevaluate her echocardiogram to assess her pulmonary function as well as her pulmonary pressures. 3. Hypertension She does have a history of essential hypertension and my recommendation would be to continue her current medications maintaining her blood pressure around 100 systolic. 4. Severe anemia She does have severe anemia likely secondary to AV malformations. This may be also related to her aortic stenosis. After she is appropriately tuned up she may need to consider going on chronic iron therapy to maintain her hemoglobin. Thank you for allowing me to participate in the care of your patient. Please don't hesitate to call if any issues arise
--- NOTE | 2017-05-30 18:05 | ECHOD_ITS ---
Reason For Study: Dyspnea/SOB Procedure This was a 2D Doppler, Color Flow transthoracic echocardiogram. Exam performed portable in patient room. Did not use Definity due to increased PAP. Left Ventricle Normal LV size. Mild concentric left ventricular hypertrophy. Left ventricular systolic function is normal. The estimated ejection fraction is 60 %. No regional wall motion abnormalities noted. Right Ventricle Normal RV size. Normal systolic function. Atria The left atrium is moderately enlarged. Mitral Valve There is mild mitral annular calcification. Tricuspid Valve Normal tricuspid valve. Moderate (2+) tricuspid valve insufficiency. Pulmonary artery systolic pressure is 60 mmHg. Aortic Valve Trisinus/trileaflet aortic valve. Severe focal aortic valve calcification. Peak aortic valve gradient 58 mmHg. Mean aortic valve gradient 34 mmHg. Calculated aortic valve area (continuity equation) is .93 cm2. Moderately severe . Pulmonic Valve Normal pulmonic valve. Great Vessels Normal aortic root. The pulmonary artery is normal size. Normal inferior vena cava. Pericardium/Pleural No pericardial effusion. MMode/2D Measurements & Calculations LVIDd: 5.3 cm IVSd: 1.2 cm LVOT diam: 2.0 cm LVIDs: 3.6 cm LVPWd: 1.3 cm LVOT area: 3.1 cm2 RVDd: 4.0 cm FS: 31.6 % Ao root diam: 2.2 cm LAV(MOD-bp): 81.9 ml LA A4 area: 26.3 cm2 LA dimension: 4.7 cm LAV(MOD-bp) Indexed: 37.8 ml/m2 LAV(MOD-sp2): 74.0 ml LAV(MOD-sp4): 84.1 ml RA A4 area: 16.4 cm2 Time Measurements MV dec time: 0.06 sec Doppler Measurements & Calculations MV E max chucho: 144.1 cm/sec Lat Peak E' Chucho: 9.7 cm/sec Med Peak E' Chucho: 8.8 cm/sec MV A max chucho: 92.7 cm/sec E/E' lat: 14.8 E/E' med: 16.4 MV E/A: 1.6 MV V2 max: 184.2 cm/sec MV P1/2t max chucho: 167.9 cm/sec Ao V2 max: 379.9 cm/sec MV max P.6 mmHg MV P1/2t: 41.0 msec Ao max P.8 mmHg MV V2 mean: 111.2 cm/sec MV dec slope: 1200 cm/sec2 Ao V2 mean: 280.3 cm/sec MV mean P.5 mmHg MVA(P1/2t): 5.4 cm2 Ao mean P.3 mmHg MV V2 VTI: 40.1 cm Ao V2 VTI: 76.9 cm MVA(VTI): 1.9 cm2 LUPE(I,D): 1.0 cm2 LUPE(V,D): 0.93 cm2 LV V1 max: 113.9 cm/sec SV(LVOT): 77.9 ml PA V2 max: 129.1 cm/sec LV V1 max P.2 mmHg LV V1 mean P.2 mmHg LV V1 mean: 85.3 cm/sec LV V1 VTI: 25.1 cm TR max chucho: 371.7 cm/sec TR max P.3 mmHg Interpretation Summary Normal LV size. Mild concentric left ventricular hypertrophy. Left ventricular systolic function is normal. The estimated ejection fraction is 60 %. Moderate (2+) tricuspid valve insufficiency. Pulmonary artery systolic pressure is 60 mmHg. Severe focal aortic valve calcification. Moderately severe Ordering Physician: Alcon Jung Referring Physician: Vic Chen Performed By: Selene Yañez, PARVEEN, RVT
[2017-05-30] MEDS: Ipratropium/Albuterol Sulfate 3 ML AMPUL.NEB INHALATION (20:16)
[2017-05-30] MEDS: Furosemide 100 MG/10 ML Vial 60 MG IV (22:20)
[2017-05-30] MEDS: Atorvastatin Calcium 10 MG Tablet PO (22:20)
[2017-05-30] MEDS: Fluticasone 0.05% 1 SPRAY NASAL.SRY NASAL (22:34)
[2017-05-30 22:46] LABS: Bedside Glucose 161 mg/dL (70-110)
[2017-05-31] VITALS (42 sets, daily range): BP systolic 95–116; BP diastolic 45–80; PULSE 75–110; RESP 12–23; TEMP 35.9–36.8; O2SAT 75–100
[2017-05-31 02:54] LABS: Absolute Lymphocyte Count 0.56 X10^3/ul (0.83-4.51); Absolute Neutrophil Count 10.9 X10^3/uL (2.0-7.7); Basophil# 0.03 X10^3/uL; Basophil% 0.2 % (0-1); Eosinophil# 0.12 X10^3/uL; Eosinophils% 0.9 % (0-5); Hematocrit 27.9 % (37-47); Hemoglobin 7.5 g/dl (12.0-15.0); Lymphocyte # 0.56 X10^3/ul (4.0); Lymphocyte % 4.4 % (19-41); Mean Corp Hgb Conc 26.9 g/gl (32-36); Mean Corpuscular Hgb 25.2 pg (27.0-32.0); Mean Corpuscular Volume 93.6 fL (81-99); Mean Platelet Vol. 9.2 fl (6.2-12.0); Monocyte# 1.03 X10^3/uL; Monocyte% 8.1 % (0-10); Neutrophil # 10.94 X10^3/uL (2.7-7.7); Neutrophil % 85.9 % (47-70); Platelet Count 419 K/mm3 (150-450); RBC Distribution Width CV 17.3 % (11.6-14.6); RBC Distribution Width SD 58.2 fl (35.1-43.9); Red Blood Count 2.98 M/mm3 (4.2-5.4); White Blood Count 12.7 K/mm3 (4.4-11.0)
[2017-05-31 02:55] LABS: Differential Indicated SCAN CRITERIA MET; POSITIVE COUNT NO; POSITIVE DIFFERENTIAL YES; POSITIVE MORPHOLOGY NO
[2017-05-31 03:13] LABS: Anion Gap 4 (5-15); BUN 17 mg/dL (7-18); BUN/Creat Ratio 24.4 RATIO (10-20); Calcium,Total 8.2 mg/dL (8.5-10.1); Chloride 93 mmol/L (98-107); EST Glomerular Filtration Rate 89 mL/min (>60); Est Glom Filt Rate - Afr Amer 107 mL/min (>60); Estimated Creatinine Clearance 44.54 ml/min; Glucose 164 mg/dL (74-106); Potassium 3.6 mmol/L (3.5-5.1); Sodium Level 138 mmol/L (136-145)
[2017-05-31 03:15] LABS: Differential Comment SCANNED
[2017-05-31] MEDS: Ipratropium/Albuterol Sulfate 3 ML AMPUL.NEB INHALATION ×6 (03:49→23:42)
--- NOTE | 2017-05-31 05:55 | EKG12_ITS ---
Test Reason : AM EKG Blood Pressure : / mmHG Vent. Rate : 082 BPM Atrial Rate : 082 BPM P-R Int : 134 ms QRS Dur : 146 ms QT Int : 444 ms P-R-T Axes : 069 092 016 degrees QTc Int : 518 ms Sinus rhythm with occasional Premature ventricular complexes Right bundle branch block Abnormal ECG When compared with ECG of 30-MAY-2017 12:08, MANUAL COMPARISON REQUIRED, DATA IS UNCONFIRMED Confirmed by EJ PETERSON ([id number]), video news editor MONA NGO ([id number]) on 06/03/2017 2:52:38 PM Referred By: MOISE Confirmed By:EJ PETERSON
[2017-05-31] MEDS: 0.9% NaCl Peripheral Flush Adult/Peds IV ×3 (06:42→23:02)
[2017-05-31] MEDS: Furosemide 100 MG/10 ML Vial 60 MG IV ×2 (06:42→23:02)
[2017-05-31 07:01] LABS: Bedside Glucose 160 mg/dL (70-110)
--- NOTE | 2017-05-31 08:57 | PN.CARD_ITS ---
Subjectve: Patient seen and evaluated. Objective: Vital Signs Temp Pulse Resp BP Pulse Ox 97.1 F L 96 17 113/50 L 94 05/31/17 07:00 05/31/17 07:54 05/31/17 07:03 05/31/17 07:00 05/31/17 07:20 Oxygen Flow Rate (L/min) 6 Oxygen Delivery Method Venturi Mask Weight: 262 lb 12.656 oz Body Mass Index (BMI) 46.5 Intake and Output for Last 24 Hours 05/29/17 05/30/17 05/31/17 23:59 23:59 23:59 Intake Total 180 / 180 600 / 600 Output Total 425 / 425 Balance 180 / 180 175 / 175 General: Awake, Alert, Oriented x 3 HEENT: PERRL, EOMI, Sclera Non Icteric Neck: Supple, Good ROM, No Lymph Node Enlargement Lungs: Clear to auscultation Cardiovascular: Regular Rhythm, Normal S1, Normal S2, No Murmurs, No Rubs, No Gallops Vascular: No Carotid Bruits, Normal Femoral Pulses, Normal Radial Pulses, Normal Dorsalis Pedal Pulse, Normal Posterior Tibial Pulses Abdomen: Bowel Sounds Present, Soft, Non Tender, No HSM, No Organomegaly Extremities: No Cyanosis, No Clubbing, No edema Neurological: No Focal Motor or Sensory Deficit 05/30/17 16:31: B-Natriuretic Peptide 182.2 H 05/30/17 16:31: Troponin I 0.04 05/30/17 16:31: Lactic Acid 0.7 05/30/17 20:09: Troponin I 0.03 05/31/17 02:05: WBC 12.7 H, RBC 2.98 L, Hgb 7.5 L, Hct 27.9 L, MCV 93.6, MCH 25.2 L, MCHC 26.9 L, RDW 17.3 H, RDW Differential 58.2 H, Plt Count 419, MPV 9.2 , Immature Gran % (Auto) 0.500, Neut % (Auto) 85.9 H, Lymph % (Auto) 4.4 L, [place] % (Auto) 8.1, Eos % (Auto) 0.9, Baso % (Auto) 0.2, Absolute Neuts (auto) 10.9 H, Total Counted Not Reportable 05/31/17 02:05: Sodium 138, Potassium 3.6, Chloride 93 L, Carbon Dioxide 41.0 H , Anion Gap 4 L, BUN 17, Creatinine 0.70, Est GFR (MDRD) Af Amer 107, Est GFR ( MDRD) Non-Af 89, BUN/Creatinine Ratio 24.4 H, Glucose 164 H, Calcium 8.2 L 05/31/17 02:05: Troponin I 0.03 Rhythm: EKG: ECHO: Stress Test: Cardiac Cath: PCI: CT Surgery: Holter monitor: EPS: PPM: CXR: Chest CT Scan: Assessment/Plan 1. Shortness of breath. The etiology of the above is likely multifactorial. She does have aortic stenosis but I do not think that it is severe based on the mean gradient. She does have preserved left ventricular systolic function. She is also noted to be markedly anemic and also has obstructive lung disease. In addition her natruretic peptide level is only approximately 180. I will therefore recommend that if possible she be transfused to a hemoglobin of at least 10. Even though the recommendations that patient such as this do not need to be transfused I do feel that in the context of aortic stenosis obstructive lung disease and obesity it may be helpful for her to have a better oxygen carrying capacity. I will discuss this further with the hospitalist in a.m. 2. Valvular heart disease He does have evidence of moderate aortic stenosis at best. I agree that I do not think that she is a candidate for aortic valve replacement at this time. We will continue to monitor her with serial echocardiograms. I would like to reevaluate her echocardiogram to assess her pulmonary function as well as her pulmonary pressures. 3. Hypertension She does have a history of essential hypertension and my recommendation would be to continue her current medications maintaining her blood pressure around 100 systolic. 4. Severe anemia She does have severe anemia likely secondary to AV malformations. This may be also related to her aortic stenosis. After she is appropriately tuned up she may need to consider going on chronic iron therapy to maintain her hemoglobin. Thank you for allowing me to participate in the care of your patient. Please don't hesitate to call if any issues arise
--- NOTE | 2017-05-31 09:14 | PCM.CONS.GEN ---
Problem List (1) Acute on chronic respiratory failure with hypoxia and hypercapnia Status: Acute (2) Nonrheumatic aortic (valve) stenosis Status: Chronic (3) Anxiety Status: Chronic (4) Debility, unspecified Status: Chronic (5) Anemia Status: Chronic Qualifiers: (6) Carotid artery stenosis Status: Chronic (7) Pulmonary fibrosis Status: Chronic (8) Tobacco dependence in remission Status: Chronic (9) Stage 3 severe COPD by GOLD classification Status: Chronic (10) Diabetes mellitus type II Status: Chronic (11) Pulmonary hypertension Status: Chronic Comment: With PA pressures 55 by cardiac catheterization (12) Hypertension Status: Chronic Qualifiers: (13) HLD (hyperlipidemia) Status: Chronic Qualifiers: (14) GI AVM (gastrointestinal arteriovenous vascular malformation) Status: Chronic Reason for Consult Date of Consultation: 05/31/17 Reason for Consultation: acute on chronic respiratory failure, CHF History of Present Illness: The patient is a 66 year old F with past medical history as below and well known to pulmonary, presented to the ED with complaints of abrupt onset of shortness of breath. She has had an increase in lower extremity edema. Reports she feels the same as she did last time she was admitted. She has had some faint chest discomfort and palpitations that come and go. Complains of dizziness the last 2-3 days. She denies any fever, chills, wheezing, sputum production, or syncope. She does have a cough. Patient has had multiple admissions for the same. Patient has baseline oxygen requirement of 5 L of oxygen supplementation continuously. She is compliant with her BiPAP and sleeps in the recliner. Patient reports chronic orthopnea. She has been unable to move at all without becoming severely dyspneic the last few days. Patient reports she has been trying to adhere to a low-salt diet. Her appetite has been very poor lately. She does occasionally have soup from [employer], which she realizes is high in salt. She has been also trying to limit her fluid intake. She denies weighing herself at home. Initial pulse ox 75% on 6 L with tachypnea. Patient was pale and diaphoretic. She was afebrile with normal pulse. Blood pressure mildly elevated at 156/79. Chest x-ray showing cardiomegaly and mild CHF. ABG was obtained on a 50% Venturi mask, pH 7.34, PCO2 80, PO2 76, bicarb 43.3, consistent with acute on chronic hypoxemia and hypercarbia. Serum bicarb also chronically elevated between 38 and 45. Patient was placed on BiPAP 02/22 with FiO2 of 50%. Blood work revealed leukocytosis of 16,600, hemoglobin 7.7, platelets 504. Chemistry remarkable for chloride of 93 and serum bicarb of 42. Renal function was normal. Glucose elevated at 144 and calcium low at 8.2. Lactate upper side of normal at 2.0. Cardiac enzymes have been negative. BNP 182. Last echocardiogram in March 2017 showed an estimated EF of 60%, normal LV systolic function, moderate focal aortic valve calcification in the mean aortic valve gradient of 27 mmHg. Calculated VALENTE was 0.95 cm?. Pulmonary artery pressures were not estimated. Patient typically responds well to diuresis with improvement in her oxygenation and dyspnea. She has not recently been to the [facility] for reevaluation for a potential TAVR. She saw KAILASH Ko on May 02. Cardiology has been consulted this admit and feels her etiology of shortness of breath is likely multifactorial. He also recommended transfusion for hemoglobin of at least 10. They do not feel she is a candidate for aortic valve replacement at this time. A repeat echocardiogram has been ordered to assess her pulmonary pressures. Pulmonary has been consulted to assist with management. Past Medical History Past Medical History (Chronic Problems): Chronic Problems (Last Updated 05/30/17 @ 16:02 by David Montana MD) Anxiety (Chronic) Debility, unspecified (Chronic) Nonrheumatic aortic (valve) stenosis (Chronic) Left atrial enlargement (Chronic) Hypersomnia (Chronic) Anemia (Chronic) Carotid artery stenosis (Chronic) Chronic hypoxemic respiratory failure (Chronic) Pulmonary fibrosis (Chronic) 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 3 severe COPD by GOLD classification (Chronic) Aortic stenosis (Chronic) Moderate to severe with valve area 1.1 on cardiac catheterization in 2013 Diabetes mellitus type II (Chronic) Pulmonary hypertension (Chronic) With PA pressures 55 by cardiac catheterization Hypertension (Chronic) HLD (hyperlipidemia) (Chronic) 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) Allergies aspirin Allergy (Verified 05/30/17 11:59) anemia Home Medications: Ambulatory Orders Medication Instructions Recorded Metformin HCl [Glucophage] 1,000 mg PO BIDCM 01/15/14 Simvastatin [Zocor] 20 mg PO QHS 01/15/14 Ferrous Sulfate 325 mg PO BID 04/09/14 Escitalopram Oxalate [Lexapro] 10 mg PO DAILY 06/29/15 Trazodone HCl [Desyrel] 100 mg PO QHS PRN PRN 06/29/15 Albuterol Inhaler [Ventolin Hfa] 2 puff INHALATION Q4H PRN PRN #2 10/02/15 inhaler Budesonide/Formoterol Fumarate 2 puff IH BID 03/27/17 [Symbicort 160-4.5 Mcg Inhaler] Fluticasone 0.05% [Flonase Nasal 1 spray NASAL BID 04/24/17 [place]] Furosemide [Lasix] 80 mg PO BIDLX #60 tab 04/27/17 metoprolol tartrate 50 mg tablet 50 mg PO BID #180 tab 05/30/17 Surgical History: herniorrhaphy, hysterectomy, - Psychiatric History: No pertinent psych hx IT ASSOCIATE History: No pertinent IT ASSOCIATE history Lives: Spouse/ Significant Other Smoking Status: Former smoker Tobacco Use: Non-smoker Alcohol: None Drugs: None - *Family History Paternal History Items: Heart Disease Maternal History Items: Heart Disease Review of Systems Constitutional: Reports: Fatigue. Denies: Anorexia, Chills, Fever, Night Sweats, Malaise, Weakness, Weight Change Eyes: Denies: Vision Change HEENT: Reports: Nasal bleeding - mild, intermittent. Denies: Difficulty Swallowing, Head Aches, Nasal Congestion, Post Nasal Drip, Sinus Congestion, Sore Throat Cardiovascular: Reports: Chest Tightness, Edema, Light Headedness, Orthopnea, Palpitations. Denies: Chest Pain, Paroxysmal Noc. Dyspnea Respiratory: Reports: Cough, Shortness of breath at rest, Shortness of breath upon exertion. Denies: Hemoptysis, Sputum production, Wheezing Gastrointestinal: Denies: Abdominal Pain, Constipation, Diarrhea, Dyspepsia, Hematemesis, Hematochezia, Nausea, Melena, Vomiting Genitourinary: Denies: Dysuria, Hematuria, Retention Musculoskeletal: Denies: Muscle pain, Neck Pain, Shoulder Pain Skin: Denies: Rash, Wounds Neurological: Denies: Balance problems, Change in Speech, Confusion, Difficulty swallowing, Focal weakness, Numbness, Tingling, Tremor Psychiatric: Reports: Anxiety, Depression. Denies: Homicidal Ideations, Suicidal Ideations Endocrine: Denies: Change in Body Habitus, Polydipsia, Polyuria Hematologic/ Lymphatic: Reports: Anemia, Easy Bruising. Denies: Adenopathy, Easy Bleeding Patient Problems: Active and Suspected Problems (Last Updated 05/30/17 @ 16:02 by David Montana MD) Acute on chronic respiratory failure with hypoxia and hypercapnia (Acute) Acute on chronic diastolic (congestive) heart failure (Acute) Subjective: The patient was seen and examined. She is sitting up in the chair in no acute distress. She is saturating 94% on a 50% Venturi mask. Nursing staff reports she desaturates quickly into the 70s and 80s when taken off the mask to eat or take her pills. Patient complains of fatigue and dyspnea. She is very frustrated that she has to repetitively be hospitalized and feels as though her doctors are not figuring out what to do to make me better. Objective: Clinical Impression(s) from Imaging Studies Chest X-Ray 05/30/17 00:00 IMPRESSION: Cardiomegaly and mild CHF. Electronically Signed: Jonah Conner MD at 12:39 EDT Tel [phone], Service support , - Physical Exam General: Alert, Oriented x3, Cooperative, No apparent distress, Well developed, Well nourished, - - tearful HEENT: Atraumatic, Normocephalic Oral: Moist Mucosa, No Gingival or Mucosal Lesions/ Ulcerations Neck: Supple, No Nodes, Trachea Midline Lungs: No rhonchi, No wheeze, No rales, Diminished Cardiovascular: Regular rate, Regular Rhythm, Normal S1, Normal S2, Murmur, No rub noted, No Gallop Abdomen: Bowel Sounds Present, Soft, Non Tender, Non-Distended, Obese Extremities: No clubbing, No cyanosis, Edema, - - venous stasis changes Skin: No rashes, No breakdown Musculoskeletal: No Tenderness to Palpation of Joints or Extremities Lymphatic: No Cervical, Supraclavicular, or Inguinal Adenopathy Neurological: Cranial nerves II-XII grossly intact, Neuro grossly intact, Motor Exam 5/5 strength throughout Psych/Mental Status: - - tearful, voicing frustration over health. Alert and oriented, cooperative Vital Signs Temp Pulse Resp BP Pulse Ox 97.1 F L 96 18 113/50 L 94 05/31/17 07:00 05/31/17 07:54 05/31/17 09:00 05/31/17 07:00 05/31/17 07:20 Oxygen Flow Rate (L/min) 6 Oxygen Delivery Method Nasal Cannula Weight: 262 lb 12.656 oz Body Mass Index (BMI) 46.5 Intake and Output for Last 24 Hours 05/29/17 05/30/17 05/31/17 23:59 23:59 23:59 Intake Total 180 / 180 600 / 600 Output Total 425 / 425 Balance 180 / 180 175 / 175 Laboratory Tests Past 24 Hrs 05/30/17 05/30/17 05/30/17 16:31 16:31 16:31 WBC RBC Hgb Hct MCV MCH MCHC RDW RDW Differential Plt Count MPV Immature Gran % (Auto) Neut % (Auto) Lymph % (Auto) [place] % (Auto) Eos % (Auto) Baso % (Auto) Absolute Neuts (auto) Absolute Lymphs (auto) Total Counted Differential Comment Sodium Potassium Chloride Carbon Dioxide Anion Gap BUN Creatinine Estim Creat Clear Calc Est GFR (MDRD) Af Amer Est GFR (MDRD) Non-Af BUN/Creatinine Ratio Glucose Lactic Acid 0.7 Calcium Troponin I 0.04 B-Natriuretic Peptide 182.2 H Blood Type Antibody Screen Crossmatch 05/30/17 05/30/17 05/31/17 16:31 20:09 02:05 WBC 12.7 H RBC 2.98 L Hgb 7.5 L Hct 27.9 L MCV 93.6 MCH 25.2 L MCHC 26.9 L RDW 17.3 H RDW Differential 58.2 H Plt Count 419 MPV 9.2 Immature Gran % (Auto) 0.500 Neut % (Auto) 85.9 H Lymph % (Auto) 4.4 L York % (Auto) 8.1 Eos % (Auto) 0.9 Baso % (Auto) 0.2 Absolute Neuts (auto) 10.9 H Absolute Lymphs (auto) 0.56 L Total Counted Not Reportable Differential Comment SCANNED Sodium Potassium Chloride Carbon Dioxide Anion Gap BUN Creatinine Estim Creat Clear Calc Est GFR (MDRD) Af Amer Est GFR (MDRD) Non-Af BUN/Creatinine Ratio Glucose Lactic Acid Calcium Troponin I 0.03 B-Natriuretic Peptide Blood Type AB POSITIVE Antibody Screen NEGATIVE Crossmatch See Detail 05/31/17 05/31/17 02:05 02:05 WBC RBC Hgb Hct MCV MCH MCHC RDW RDW Differential Plt Count MPV Immature Gran % (Auto) Neut % (Auto) Lymph % (Auto) York % (Auto) Eos % (Auto) Baso % (Auto) Absolute Neuts (auto) Absolute Lymphs (auto) Total Counted Differential Comment Sodium 138 Potassium 3.6 Chloride 93 L Carbon Dioxide 41.0 H Anion Gap 4 L BUN 17 Creatinine 0.70 Estim Creat Clear Calc 44.54 Est GFR (MDRD) Af Amer 107 Est GFR (MDRD) Non-Af 89 BUN/Creatinine Ratio 24.4 H Glucose 164 H Lactic Acid Calcium 8.2 L Troponin I 0.03 B-Natriuretic Peptide Blood Type Antibody Screen Crossmatch POC Glucose 05/31/17 05/30/17 05/30/17 06:39 22:18 17:00 POC Glucose 160 H 161 H 164 H Assessment/Plan Active and Suspected Problems (Last Updated 05/30/17 @ 16:02 by David Montana MD) Acute on chronic respiratory failure with hypoxia and hypercapnia (Acute) Acute on chronic diastolic (congestive) heart failure (Acute) RECOMMENDATIONS 1. Wean oxygen supplementation to keep saturations 88-92%, baseline requirement of 5L. 2. Encourage incentive spirometer and Acapella 3. Increase activity as tolerated, continue PT 4. Continue aerosols, add Pulmicort aerosol since patient on Symbicort at home 5. Utilize BiPAP with naps and nightly, also can be used for rescue-patient has responded well in the past 6. Agree with diuresis 7. Obtain sputum if cough becomes productive 8. Patient will require an ambulatory pulse ox prior to discharge IMPRESSIONS 1. Acute on chronic hypoxic and hypercapnic respiratory failure Likely multifactorial. Multiple admissions for the same etiology. Patient has baseline oxygen requirement of 5 L. She was hypoxic on presentation to the ED on 6 L of oxygen. She has been maintained on a 50% Ventimask saturating in the low 90s. There is no culture data to review. Patient did present with a leukocytosis of 16,600. Sputum culture has been ordered if cough becomes productive. Her last echo was in March 2017 showed a preserved ejection fraction 60%, mild concentric LVH, moderate focal aortic valve calcification and a mean aortic valve gradient of 27 mmHg, calculated VALENTE 0.92 cm?. Repeat echocardiogram has been ordered to assess pulmonary pressures. Utilize BiPAP with naps and nightly. Can also be used for rescue. Encourage pulmonary toileting and increase activity as tolerated. In the past, patient has responded well to diuresis with improvement in her hypoxia and dyspnea. We will continue with IV Lasix. 2. COPD, severe Patient does not appear to be an acute exacerbation at this time. She has no increased increase in cough or sputum production, no wheezing. She does have a leukocytosis of unknown etiology. No fevers. If her cough becomes productive, can send for culture. Wean oxygen supplementation to keep saturations 88-92% to prevent paradoxical CO2 retention. No indication for steroids or antibiotics at this time. 3. Aortic stenosis and acute on chronic diastolic CHF BNP was mildly elevated. Patient does have an increase in lower extremity edema in addition to upper extremity puffiness. Patient reports compliance with her home medications. Patient sleeps in a recliner and has chronic orthopnea. Patient follows with Dr. Xavier. Cardiology following here and according to Dr. Jung's note, does not believe her aortic stenosis is severe. We will continue to diuresis and see how the patient responds. Strict I&O with fluid restriction and daily weights. 4. Hypertension/pulmonary hypertension/type II DM/hyperlipidemia/anxiety/anemia Complicates care, management, recovery, and prognosis. Patient was transfused 1 unit of packed red blood cells. Her hemoglobin remains low at 7.5 despite transfusion. Would consider additional transfusions, this may assist with her shortness of breath. Thank you for the opportunity to participate in this patient's care, please do not hesitate to contact us with any further questions or concerns. This note was generated with [employer] dictation software. It may contain incorrect words, spelling, and punctuation that were not noted in checking the note before signing.
[2017-05-31] MEDS: Metoprolol Tartrate 50 MG Tablet PO ×2 (09:46→23:02)
[2017-05-31] MEDS: Ferrous Sulfate 325 MG Tablet PO ×2 (09:47→16:40)
[2017-05-31] MEDS: Escitalopram Oxalate 10 MG Tablet PO (09:51)
[2017-05-31 12:11] LABS: Bedside Glucose 196 mg/dL (70-110)
--- NOTE | 2017-05-31 13:33 | CASEMGMT ---
YASMINE ARREAGA ASSESSMENT COMPLETE. LACE Strata 3. Adm Dx: acute on chronic RRF and CHF; acute on chronic anemia with transfusion This is a 66 year old female patient presented to the emergency room because of worsening shortness of breath and worsening hypoxia and she was found to have acute on chronic diastolic CHF and acute on chronic hypoxic and hypercapnic respiratory failure as well as acute on chronic anemia requiring blood transfusion. Transition Planning/Care Coordination: The patient required assistance with ADLs and IADLs prior to admission. The patient has been to SNF in the past for skilled care. The patient is on home oxygen at 5 liters. She is a chronic CO2 retainer. No report of CPAP/BIPAP use at home. Patient follows with Dr. Dixon as an outpatient. The patient follows with cardiology for moderate to severe aortic stenosis. The patient has frequent admissions associated with dietary indiscretion and per physician report, usually responds to Lasix. The patient does live in [place], and may benefit from [facility] referral for disease specific education. YASMINE ARREAGA notes PT is recommending further skilled therapy, and patient did not ambulate due to sats dropping to 83%. YASMINE ARREAGA will continue to follow for transition planning and care coordination. Verbal handoff provided to Ximena Wilkins RN CM, PCU. MARITZA Stephens, RN-BC, CCM
--- NOTE | 2017-05-31 15:44 | PN_ITS ---
<Alejandra Mendoza - Last Filed: 05/31/17 15:57> Patient Problems: Active and Suspected Problems (Last Updated 05/30/17 @ 16:02 by David Montana MD) Acute on chronic respiratory failure with hypoxia and hypercapnia (Acute) Acute on chronic diastolic (congestive) heart failure (Acute) Subjective: Patient seen and examined. Resting in chair oxygen 94% on Ventimask. Complains of dyspnea on exertion and fatigue. Denies fever, chills. Denies chest pain. Complains of occasional dizziness. States she just wants to live her life without feeling like she is going to with minimal activity. Discussed with patient plan of care. She denies other complaints. - Physical Exam General: Alert, Oriented x3, Cooperative HEENT: Atraumatic, PERRLA, EOMI, Normocephalic Neck: Supple, No JVD, Negative Carotid Bruits Lungs: Clear to auscultation, Diminished Cardiovascular: Regular rate, Regular Rhythm, Normal S1, Normal S2, Murmur Abdomen: Bowel Sounds Present, Soft, Non Tender, Non-Distended, Obese Extremities: No clubbing, No cyanosis, Edema - Bilateral lower extremity, nonpitting Skin: No rashes, No breakdown Musculoskeletal: No Tenderness to Palpation of Joints or Extremities Neurological: Cranial nerves II-XII grossly intact, Neuro grossly intact Psych/Mental Status: Normal Affect, Appropriate Vital Signs Temp Pulse Resp BP Pulse Ox 97.7 F L 80 18 97/52 L 94 05/31/17 15:00 05/31/17 15:00 05/31/17 15:00 05/31/17 15:00 05/31/17 15:00 Oxygen Flow Rate (L/min) 5 Oxygen Delivery Method Venturi Mask Weight: 119.2 kg Body Mass Index (BMI) 46.5 Intake and Output for Last 24 Hours 05/29/17 05/30/17 05/31/17 23:59 23:59 23:59 Intake Total 180 / 180 1060 / 1060 Output Total 1225 / 1225 Balance 180 / 180 -165 / -165 Laboratory Tests Past 24 Hrs 05/30/17 05/30/17 05/30/17 16:31 16:31 16:31 WBC RBC Hgb Hct MCV MCH MCHC RDW RDW Differential Plt Count MPV Immature Gran % (Auto) Neut % (Auto) Lymph % (Auto) [place] % (Auto) Eos % (Auto) Baso % (Auto) Absolute Neuts (auto) Absolute Lymphs (auto) Total Counted Differential Comment Sodium Potassium Chloride Carbon Dioxide Anion Gap BUN Creatinine Estim Creat Clear Calc Est GFR (MDRD) Af Amer Est GFR (MDRD) Non-Af BUN/Creatinine Ratio Glucose Lactic Acid 0.7 Calcium Troponin I 0.04 B-Natriuretic Peptide 182.2 H Blood Type Antibody Screen Crossmatch 05/30/17 05/30/17 05/31/17 16:31 20:09 02:05 WBC 12.7 H RBC 2.98 L Hgb 7.5 L Hct 27.9 L MCV 93.6 MCH 25.2 L MCHC 26.9 L RDW 17.3 H RDW Differential 58.2 H Plt Count 419 MPV 9.2 Immature Gran % (Auto) 0.500 Neut % (Auto) 85.9 H Lymph % (Auto) 4.4 L [place] % (Auto) 8.1 Eos % (Auto) 0.9 Baso % (Auto) 0.2 Absolute Neuts (auto) 10.9 H Absolute Lymphs (auto) 0.56 L Total Counted Not Reportable Differential Comment SCANNED Sodium Potassium Chloride Carbon Dioxide Anion Gap BUN Creatinine Estim Creat Clear Calc Est GFR (MDRD) Af Amer Est GFR (MDRD) Non-Af BUN/Creatinine Ratio Glucose Lactic Acid Calcium Troponin I 0.03 B-Natriuretic Peptide Blood Type AB POSITIVE Antibody Screen NEGATIVE Crossmatch See Detail 05/31/17 05/31/17 02:05 02:05 WBC RBC Hgb Hct MCV MCH MCHC RDW RDW Differential Plt Count MPV Immature Gran % (Auto) Neut % (Auto) Lymph % (Auto) [place] % (Auto) Eos % (Auto) Baso % (Auto) Absolute Neuts (auto) Absolute Lymphs (auto) Total Counted Differential Comment Sodium 138 Potassium 3.6 Chloride 93 L Carbon Dioxide 41.0 H Anion Gap 4 L BUN 17 Creatinine 0.70 Estim Creat Clear Calc 44.54 Est GFR (MDRD) Af Amer 107 Est GFR (MDRD) Non-Af 89 BUN/Creatinine Ratio 24.4 H Glucose 164 H Lactic Acid Calcium 8.2 L Troponin I 0.03 B-Natriuretic Peptide Blood Type Antibody Screen Crossmatch POC Glucose 05/31/17 05/31/17 05/30/17 12:07 06:39 22:18 POC Glucose 196 H 160 H 161 H 05/30/17 17:00 POC Glucose 164 H Medical Necessity - Tobacco Use Smoking Status: Former smoker Tobacco Use: Non-smoker Assessment/Plan Active and Suspected Problems (Last Updated 05/30/17 @ 16:02 by David Montana MD) Acute on chronic respiratory failure with hypoxia and hypercapnia (Acute) Acute on chronic diastolic (congestive) heart failure (Acute) Patient is a 66-year-old female admitted 05/30/2017 due to shortness of breath. She has a past medical history of aortic stenosis, chronic anemia, carotid artery stenosis, chronic hypoxemic respiratory failure, pulmonary fibrosis, stage III COPD, type 2 diabetes mellitus, pulmonary hypertension, hypertension, hyperlipidemia, history of GI AVM. 1. Acute on chronic hypoxic and hypercapnic respiratory failure-on 5 L nasal cannula continuously at baseline. Chest x-ray on admission consistent with pulmonary vascular congestion. Continue supplement oxygen to maintain O2 at or above 90%. 2. Acute on chronic diastolic CHF-chest x-ray as noted above. Troponin negative. Continue IV Lasix. Cardiology consulted. 1500 fluid restriction. Strict I&O. Echocardiogram shows estimated ejection fraction 60%, moderate tricuspid valve insufficiency, pulmonary artery systolic pressure is 60 mmHg, moderately severe aortic stenosis. Possible right heart cath this admission when pulmonary status is stable. 3. Severe chronic COPD/pulmonary hypertension/pulmonary fibrosis-albuterol and DuoNeb aerosols. Continue supplemental oxygen to maintain O2 at or above 90%. No evidence of acute COPD exacerbation. 4. Acute on chronic normocytic anemia-baseline hemoglobin approximately 8. Hemoglobin currently 7.5. Patient to receive 1 unit packed red blood cells for symptomatic anemia with shortness of breath and weakness. Monitor CBC. 5. Moderate to severe aortic stenosis-has been evaluated by [facility] cardiology in the past for TAVR. The overall consensus is currently that she is not a candidate for aortic valve replacement at this time. She will continue outpatient follow-up with cardiology with serial echocardiograms. 6. Type 2 diabetes mellitus-oral regimen on hold. Accu-Cheks before meals at bedtime with sliding scale insulin. 7. Hypertension-stable, continue home regimen. 8. Hyperlipidemia-continue statin. 9. History of GI AVM DVT prophylaxis-SCDs. This patient was seen by SHOLA Garcia under the supervision of Dr. Lazo. <Dandy Lazo - Last Filed: 05/31/17 17:16> - Physical Exam Vital Signs Temp Pulse Resp BP Pulse Ox 97.9 F 75 22 H 103/48 L 98 05/31/17 16:53 05/31/17 16:53 05/31/17 16:53 05/31/17 16:53 05/31/17 16:53 Oxygen Flow Rate (L/min) 5 Oxygen Delivery Method Venturi Mask Weight: 119.2 kg Body Mass Index (BMI) 46.5 Intake and Output for Last 24 Hours 05/29/17 05/30/17 05/31/17 23:59 23:59 23:59 Intake Total 180 / 180 1420 / 1420 Output Total 1525 / 1525 Balance 180 / 180 -105 / -105 Laboratory Tests Past 24 Hrs 05/30/17 05/30/17 05/30/17 16:31 16:31 16:31 WBC RBC Hgb Hct MCV MCH MCHC RDW RDW Differential Plt Count MPV Immature Gran % (Auto) Neut % (Auto) Lymph % (Auto) [place] % (Auto) Eos % (Auto) Baso % (Auto) Absolute Neuts (auto) Absolute Lymphs (auto) Total Counted Differential Comment Sodium Potassium Chloride Carbon Dioxide Anion Gap BUN Creatinine Estim Creat Clear Calc Est GFR (MDRD) Af Amer Est GFR (MDRD) Non-Af BUN/Creatinine Ratio Glucose Lactic Acid 0.7 Calcium Troponin I 0.04 B-Natriuretic Peptide 182.2 H Blood Type Antibody Screen Crossmatch 05/30/17 05/30/17 05/31/17 16:31 20:09 02:05 WBC 12.7 H RBC 2.98 L Hgb 7.5 L Hct 27.9 L MCV 93.6 MCH 25.2 L MCHC 26.9 L RDW 17.3 H RDW Differential 58.2 H Plt Count 419 MPV 9.2 Immature Gran % (Auto) 0.500 Neut % (Auto) 85.9 H Lymph % (Auto) 4.4 L [place] % (Auto) 8.1 Eos % (Auto) 0.9 Baso % (Auto) 0.2 Absolute Neuts (auto) 10.9 H Absolute Lymphs (auto) 0.56 L Total Counted Not Reportable Differential Comment SCANNED Sodium Potassium Chloride Carbon Dioxide Anion Gap BUN Creatinine Estim Creat Clear Calc Est GFR (MDRD) Af Amer Est GFR (MDRD) Non-Af BUN/Creatinine Ratio Glucose Lactic Acid Calcium Troponin I 0.03 B-Natriuretic Peptide Blood Type AB POSITIVE Antibody Screen NEGATIVE Crossmatch See Detail 05/31/17 05/31/17 05/31/17 02:05 02:05 15:40 WBC RBC Hgb Hct MCV MCH MCHC RDW RDW Differential Plt Count MPV Immature Gran % (Auto) Neut % (Auto) Lymph % (Auto) [place] % (Auto) Eos % (Auto) Baso % (Auto) Absolute Neuts (auto) Absolute Lymphs (auto) Total Counted Differential Comment Sodium 138 Potassium 3.6 Chloride 93 L Carbon Dioxide 41.0 H Anion Gap 4 L BUN 17 Creatinine 0.70 Estim Creat Clear Calc 44.54 Est GFR (MDRD) Af Amer 107 Est GFR (MDRD) Non-Af 89 BUN/Creatinine Ratio 24.4 H Glucose 164 H Lactic Acid Calcium 8.2 L Troponin I 0.03 B-Natriuretic Peptide Blood Type Antibody Screen Crossmatch See Detail POC Glucose 05/31/17 05/31/17 05/30/17 12:07 06:39 22:18 POC Glucose 196 H 160 H 161 H 05/30/17 17:00 POC Glucose 164 H Assessment/Plan This patient was seen in conjunction with SHOLA Garcia. I have independently interviewed and examined the patient and reviewed pertinent historical, laboratory, and other data. Please refer to ARLEN Garcia note for details of this patient's presentation, findings, and recommendations. I have reviewed SHOLA Garcia note and concur with documented findings. In brief, patient is a 6-year-old female with past medical history significant for severe aortic stenosis, chronic hypoxic respiratory failure secondary to COPD, pulmonary hypertension as well as pulmonary fibrosis who presented with shortness of breath and assessment of acute on chronic hypoxic and hypercapnic respiratory failure was made patient admitted to a monitored bed with consultation placed to both pulmonary medicine as well as cardiology Physical Examination: GENERAL: Dyspneic at rest HEENT: Clear conjunctiva, moist oral mucosa CHEST: Diminished to auscultation with occasional wheezes HEART: Regular S1 S2, systolic murmur PODIATRIST ORTHOPEDIC: Awake, no lateralizing signs. Assessment: 1. Acute on chronic hypoxic and hypercapnic respiratory failure 2. Acute on chronic diastolic CHF 3. Severe COPD 4. Pulmonary fibrosis 5. Pulmonary hypertension 6. Anemia suspected to be secondary to chronic blood loss from patient AVM; using 1 unit PRBC on 05/31/2017 since patient was deemed to be symptomatic 7. Hypertension 8. Dyslipidemia 9. Diabetes mellitus type 2 Recommendations: 1. I have discussed the results of my overview and impressions with the patient 2. Options for management were reviewed Code Visit Inpatient E&M: 54200 Subs Hosp L3
[2017-05-31] MEDS: Budesonide Respules 0.5 MG/2 ML AMPUL.NEB. INHALATION (19:16)
[2017-05-31] MEDS: Fluticasone 0.05% 1 SPRAY NASAL.SRY NASAL (22:43)
[2017-05-31 22:45] LABS: Bedside Glucose 167 mg/dL (70-110)
[2017-05-31] MEDS: Atorvastatin Calcium 10 MG Tablet PO (23:02)
[2017-06-01] VITALS (34 sets, daily range): BP systolic 90–135; BP diastolic 40–78; PULSE 70–97; RESP 12–24; TEMP 36.3–36.8; O2SAT 88–96
[2017-06-01 02:51] LABS: Bedside Glucose 177 mg/dL (70-110)
[2017-06-01] MEDS: Acetaminophen 325 MG Tablet 650 MG PO ×3 (04:44→21:35)
[2017-06-01] MEDS: 0.9% NaCl Peripheral Flush Adult/Peds IV ×2 (06:22→11:58)
[2017-06-01] MEDS: Furosemide 100 MG/10 ML Vial 60 MG IV (06:22)
--- NOTE | 2017-06-01 07:20 | PCM.PROGNOTE ---
Patient Problems: Active and Suspected Problems (Last Updated 05/30/17 @ 16:02 by David Montana MD) Acute on chronic respiratory failure with hypoxia and hypercapnia (Acute) Acute on chronic diastolic (congestive) heart failure (Acute) Subjective: The patient was seen and examined at the bedside this morning. Events from the last 24 hours have been reviewed. The patient is currently afebrile, hemodynamically stable and maintaining appropriate oxygen saturations on Ventimask. The patient is overall net even for the admission thus far. She was transfused 2 units of packed red blood cells. The patient did not utilize her BiPAP overnight. She reports ongoing shortness of breath, but denies the presence of a significant cough. She does report that her [facility] transportation services representative, whom she follows with regularly, last reported that he did not feel that she was yet ready for aortic valve replacement. Objective: The patient's most recent lab work, culture data and imaging studies have all been personally reviewed. Respiratory viral panel is pending. - Physical Exam General: Alert, Cooperative, - - Sitting in bedside recliner. HEENT: Atraumatic, PERRLA, Normocephalic Oral: Moist Mucosa, No Gingival or Mucosal Lesions/ Ulcerations Neck: Supple, No Nodes, Trachea Midline, - - Large neck circumference with redundant soft tissue. Lungs: - - Globally diminished air movement bilaterally without appreciable wheezes, rales or rhonchi. Cardiovascular: Regular rate, Regular Rhythm, Normal S1, Normal S2, Murmur Abdomen: Bowel Sounds Present, Soft, Non Tender, Obese Extremities: No clubbing, No cyanosis, Edema Skin: - - No significant change from previous Musculoskeletal: No Muscle Wasting Lymphatic: No Cervical, Supraclavicular, or Inguinal Adenopathy Neurological: Neuro grossly intact Psych/Mental Status: Normal Affect, Appropriate Vital Signs Temp Pulse Resp BP Pulse Ox 98.1 F 72 18 90/49 L 92 06/01/17 06:00 06/01/17 06:00 06/01/17 06:00 06/01/17 06:00 06/01/17 06:00 Oxygen Flow Rate (L/min) 6 Oxygen Delivery Method Venturi Mask Weight: 262 lb 12.656 oz Body Mass Index (BMI) 46.5 Intake and Output for Last 24 Hours 05/30/17 05/31/17 06/01/17 23:59 23:59 23:59 Intake Total 180 / 180 1820 / 1820 633 / 633 Output Total 1525 / 1525 1200 / 1200 Balance 180 / 180 295 / 295 -567 / -567 Laboratory Tests Past 24 Hrs 05/30/17 05/31/17 16:31 15:40 Crossmatch See Detail See Detail POC Glucose 05/31/17 05/31/17 05/31/17 22:39 16:44 12:07 POC Glucose 167 H 177 H 196 H Labs (Last 48 Hours) 05/30/17 05/30/17 05/30/17 12:07 12:07 12:07 WBC 16.6 H RBC 3.02 L Hgb 7.7 L Hct 29.1 L MCV 96.4 MCH 25.5 L MCHC 26.5 L RDW 17.0 H RDW Differential 59.3 H Plt Count 504 H MPV 9.3 Immature Gran % (Auto) 0.700 Neut % (Auto) 88.3 H Lymph % (Auto) 2.8 L [place] % (Auto) 7.2 Eos % (Auto) 0.8 Baso % (Auto) 0.2 Absolute Neuts (auto) 14.7 H Absolute Lymphs (auto) 0.46 L Total Counted Not Reportable Nucleated RBC % 0.6 Differential Comment COMMENT Absolute Retic 0.10 Haptoglobin PT 14.9 INR 1.2 APTT 35.6 Specimen Type Sample Site pH Bicarbonate Actual POC Total CO2 Base Excess O2 Saturation O2 % ABG pCO2 ABG pO2 Luis Fernando Test O2 Delivery Device Blood Gas Notified Whom Blood Gas Notified Time Sodium 138 Potassium 4.1 Chloride 93 L Carbon Dioxide 42.0 H Anion Gap 3 L BUN 17 Creatinine 0.88 Estim Creat Clear Calc 50.61 Est GFR (MDRD) Af Amer 82 Est GFR (MDRD) Non-Af 68 BUN/Creatinine Ratio 19.4 Glucose 144 H Lactic Acid Calcium 8.2 L Troponin I 0.04 B-Natriuretic Peptide POC Glucose Blood Type Antibody Screen Crossmatch 05/30/17 05/30/17 05/30/17 12:07 12:07 16:31 WBC RBC Hgb Hct MCV MCH MCHC RDW RDW Differential Plt Count MPV Immature Gran % (Auto) Neut % (Auto) Lymph % (Auto) [place] % (Auto) Eos % (Auto) Baso % (Auto) Absolute Neuts (auto) Absolute Lymphs (auto) Total Counted Nucleated RBC % Differential Comment Absolute Retic Haptoglobin PT INR APTT Specimen Type ART Sample Site L Radial pH 7.35 Bicarbonate Actual 43.9 H POC Total CO2 46 Base Excess 18 H O2 Saturation 93 L O2 % 50 ABG pCO2 80.0 H* ABG pO2 76 Luis Fernando Test POS O2 Delivery Device Vent Mask Blood Gas Notified Whom ED MD Blood Gas Notified Time 1208 Sodium Potassium Chloride Carbon Dioxide Anion Gap BUN Creatinine Estim Creat Clear Calc Est GFR (MDRD) Af Amer Est GFR (MDRD) Non-Af BUN/Creatinine Ratio Glucose Lactic Acid 2.0 Calcium Troponin I B-Natriuretic Peptide 182.2 H POC Glucose Blood Type Antibody Screen Crossmatch 05/30/17 05/30/17 05/30/17 16:31 16:31 16:31 WBC RBC Hgb Hct MCV MCH MCHC RDW RDW Differential Plt Count MPV Immature Gran % (Auto) Neut % (Auto) Lymph % (Auto) [place] % (Auto) Eos % (Auto) Baso % (Auto) Absolute Neuts (auto) Absolute Lymphs (auto) Total Counted Nucleated RBC % Differential Comment Absolute Retic Haptoglobin PT INR APTT Specimen Type Sample Site pH Bicarbonate Actual POC Total CO2 Base Excess O2 Saturation O2 % ABG pCO2 ABG pO2 Luis Fernando Test O2 Delivery Device Blood Gas Notified Whom Blood Gas Notified Time Sodium Potassium Chloride Carbon Dioxide Anion Gap BUN Creatinine Estim Creat Clear Calc Est GFR (MDRD) Af Amer Est GFR (MDRD) Non-Af BUN/Creatinine Ratio Glucose Lactic Acid 0.7 Calcium Troponin I 0.04 B-Natriuretic Peptide POC Glucose Blood Type AB POSITIVE Antibody Screen NEGATIVE Crossmatch See Detail 05/30/17 05/30/17 05/30/17 17:00 20:09 22:18 WBC RBC Hgb Hct MCV MCH MCHC RDW RDW Differential Plt Count MPV Immature Gran % (Auto) Neut % (Auto) Lymph % (Auto) [place] % (Auto) Eos % (Auto) Baso % (Auto) Absolute Neuts (auto) Absolute Lymphs (auto) Total Counted Nucleated RBC % Differential Comment Absolute Retic Haptoglobin PT INR APTT Specimen Type Sample Site pH Bicarbonate Actual POC Total CO2 Base Excess O2 Saturation O2 % ABG pCO2 ABG pO2 Luis Fernando Test O2 Delivery Device Blood Gas Notified Whom Blood Gas Notified Time Sodium Potassium Chloride Carbon Dioxide Anion Gap BUN Creatinine Estim Creat Clear Calc Est GFR (MDRD) Af Amer Est GFR (MDRD) Non-Af BUN/Creatinine Ratio Glucose Lactic Acid Calcium Troponin I 0.03 B-Natriuretic Peptide POC Glucose 164 H 161 H Blood Type Antibody Screen Crossmatch 05/31/17 05/31/17 05/31/17 02:05 02:05 02:05 WBC 12.7 H RBC 2.98 L Hgb 7.5 L Hct 27.9 L MCV 93.6 MCH 25.2 L MCHC 26.9 L RDW 17.3 H RDW Differential 58.2 H Plt Count 419 MPV 9.2 Immature Gran % (Auto) 0.500 Neut % (Auto) 85.9 H Lymph % (Auto) 4.4 L [place] % (Auto) 8.1 Eos % (Auto) 0.9 Baso % (Auto) 0.2 Absolute Neuts (auto) 10.9 H Absolute Lymphs (auto) 0.56 L Total Counted Not Reportable Nucleated RBC % Differential Comment SCANNED Absolute Retic Haptoglobin PT INR APTT Specimen Type Sample Site pH Bicarbonate Actual POC Total CO2 Base Excess O2 Saturation O2 % ABG pCO2 ABG pO2 Luis Fernando Test O2 Delivery Device Blood Gas Notified Whom Blood Gas Notified Time Sodium 138 Potassium 3.6 Chloride 93 L Carbon Dioxide 41.0 H Anion Gap 4 L BUN 17 Creatinine 0.70 Estim Creat Clear Calc 44.54 Est GFR (MDRD) Af Amer 107 Est GFR (MDRD) Non-Af 89 BUN/Creatinine Ratio 24.4 H Glucose 164 H Lactic Acid Calcium 8.2 L Troponin I 0.03 B-Natriuretic Peptide POC Glucose Blood Type Antibody Screen Crossmatch 05/31/17 05/31/17 05/31/17 06:39 12:07 15:40 WBC RBC Hgb Hct MCV MCH MCHC RDW RDW Differential Plt Count MPV Immature Gran % (Auto) Neut % (Auto) Lymph % (Auto) [place] % (Auto) Eos % (Auto) Baso % (Auto) Absolute Neuts (auto) Absolute Lymphs (auto) Total Counted Nucleated RBC % Differential Comment Absolute Retic Haptoglobin PT INR APTT Specimen Type Sample Site pH Bicarbonate Actual POC Total CO2 Base Excess O2 Saturation O2 % ABG pCO2 ABG pO2 Luis Fernando Test O2 Delivery Device Blood Gas Notified Whom Blood Gas Notified Time Sodium Potassium Chloride Carbon Dioxide Anion Gap BUN Creatinine Estim Creat Clear Calc Est GFR (MDRD) Af Amer Est GFR (MDRD) Non-Af BUN/Creatinine Ratio Glucose Lactic Acid Calcium Troponin I B-Natriuretic Peptide POC Glucose 160 H 196 H Blood Type Antibody Screen Crossmatch See Detail 05/31/17 05/31/17 06/01/17 16:44 22:39 06:58 WBC RBC Hgb Hct MCV MCH MCHC RDW RDW Differential Plt Count MPV Immature Gran % (Auto) Neut % (Auto) Lymph % (Auto) Cobb % (Auto) Eos % (Auto) Baso % (Auto) Absolute Neuts (auto) Absolute Lymphs (auto) Total Counted Nucleated RBC % Differential Comment Absolute Retic Haptoglobin Pending PT INR APTT Specimen Type Sample Site pH Bicarbonate Actual POC Total CO2 Base Excess O2 Saturation O2 % ABG pCO2 ABG pO2 Luis Fernando Test O2 Delivery Device Blood Gas Notified Whom Blood Gas Notified Time Sodium Potassium Chloride Carbon Dioxide Anion Gap BUN Creatinine Estim Creat Clear Calc Est GFR (MDRD) Af Amer Est GFR (MDRD) Non-Af BUN/Creatinine Ratio Glucose Lactic Acid Calcium Troponin I B-Natriuretic Peptide POC Glucose 177 H 167 H Blood Type Antibody Screen Crossmatch 06/01/17 06/01/17 06:58 06:58 WBC Pending RBC Pending Hgb Pending Hct Pending MCV Pending MCH Pending MCHC Pending RDW Pending RDW Differential Pending Plt Count Pending MPV Immature Gran % (Auto) Neut % (Auto) Lymph % (Auto) Cobb % (Auto) Eos % (Auto) Baso % (Auto) Absolute Neuts (auto) Absolute Lymphs (auto) Total Counted Nucleated RBC % Differential Comment Absolute Retic Haptoglobin PT INR APTT Specimen Type Sample Site pH Bicarbonate Actual POC Total CO2 Base Excess O2 Saturation O2 % ABG pCO2 ABG pO2 Luis Fernando Test O2 Delivery Device Blood Gas Notified Whom Blood Gas Notified Time Sodium Pending Potassium Pending Chloride Pending Carbon Dioxide Pending Anion Gap Pending BUN Pending Creatinine Pending Estim Creat Clear Calc Est GFR (MDRD) Af Amer Pending Est GFR (MDRD) Non-Af Pending BUN/Creatinine Ratio Pending Glucose Pending Lactic Acid Calcium Pending Troponin I B-Natriuretic Peptide POC Glucose Blood Type Antibody Screen Crossmatch Clinical Impression(s) from Imaging Studies Chest X-Ray 05/30/17 00:00 IMPRESSION: Cardiomegaly and mild CHF. Electronically Signed: Jonah Conner MD at 12:39 EDT Tel [phone], Service support , Medical Necessity - Tobacco Use Smoking Status: Former smoker Tobacco Use: Non-smoker Assessment/Plan Active and Suspected Problems (Last Updated 05/30/17 @ 16:02 by David Montana MD) Acute on chronic respiratory failure with hypoxia and hypercapnia (Acute) Acute on chronic diastolic (congestive) heart failure (Acute) RECOMMENDATIONS: 1. Recommend placement of Whiteside catheter to document accurate I's and O's 2. Increase diuretic regimen 3. Wean supplemental oxygen. The patient needs to be maintained 88-92%, to prevent paradoxical CO2 retention. 4. BiPAP therapy with naps and nightly 5. Consider right heart catheterization once euvolemic 6. Continue aerosol regimen as ordered 7. Encourage incentive spirometer use and mobilize patient as tolerated IMPRESSIONS: 1. Acute on chronic hypoxemic and hypercarbic respiratory failure The patient's presentation is again likely multifactorial in etiology with severe COPD, alveolar hypoventilation, obesity, aortic stenosis and dietary indiscretions likely all contributing. In addition, the patient has a normocytic anemia. She is already on a maximal outpatient inhaler regimen for her underlying COPD. Recommend continued use of BiPAP therapy with naps and nightly. Would recommend maintaining oxygen saturations 88-92%, to prevent paradoxical CO2 retention. Continue scheduled budesonide and DuoNeb's, in conjunction with as needed albuterol. Agree with continued attempts at volume optimization with IV Lasix. Whiteside catheter likely needs to be placed in order to document accurate I's and O's. Encourage incentive spirometer use and mobilize patient as tolerated. Place patient on fluid restriction and monitor strict I's and O's. Consider right heart catheterization once euvolemic. 2. Aortic stenosis/diastolic heart failure with exacerbation/pulmonary hypertension Continue current medical management per cardiology recommendations. Increase diuretic regimen. This note was generated with [employer] software. It may contain incorrect words, spelling, and punctuation that were not noted in checking the note before signing. Code Visit Inpatient E&M: 19721 Subs Hosp L2
[2017-06-01 07:41] LABS: Bedside Glucose 171 mg/dL (70-110)
[2017-06-01 07:48] LABS: Anion Gap 5 (5-15); BUN 17 mg/dL (7-18); BUN/Creat Ratio 20.9 RATIO (10-20); Calcium,Total 8.5 mg/dL (8.5-10.1); Chloride 91 mmol/L (98-107); Creatinine, Serum 0.81 mg/dL (0.55-1.02); EST Glomerular Filtration Rate 74 mL/min (>60); Est Glom Filt Rate - Afr Amer 90 mL/min (>60); Estimated Creatinine Clearance 54.99 ml/min; Glucose 158 mg/dL (74-106); Potassium 3.7 mmol/L (3.5-5.1); Sodium Level 138 mmol/L (136-145)
[2017-06-01] MEDS: Ipratropium/Albuterol Sulfate 3 ML AMPUL.NEB INHALATION ×5 (08:10→22:30)
[2017-06-01] MEDS: Budesonide Respules 0.5 MG/2 ML AMPUL.NEB. INHALATION ×2 (08:10→19:26)
[2017-06-01] MEDS: Ferrous Sulfate 325 MG Tablet PO ×2 (08:29→17:18)
[2017-06-01 09:06] LABS: Absolute Lymphocyte Count 0.59 X10^3/ul (0.83-4.51); Absolute Neutrophil Count 10.5 X10^3/uL (2.0-7.7); Basophil# 0.04 X10^3/uL; Basophil% 0.3 % (0-1); Eosinophil# 0.17 X10^3/uL; Eosinophils% 1.4 % (0-5); Lymphocyte # 0.59 X10^3/ul (4.0); Lymphocyte % 4.7 % (19-41); Monocyte# 1.16 X10^3/uL; Monocyte% 9.2 % (0-10); Neutrophil # 10.54 X10^3/uL (2.7-7.7); Neutrophil % 83.8 % (47-70); White Blood Count 12.6 K/mm3 (4.4-11.0)
[2017-06-01 09:24] LABS: Differential Indicated SCAN CRITERIA MET; Hematocrit 30.3 % (37-47); Hemoglobin 8.3 g/dl (12.0-15.0); Mean Corp Hgb Conc 27.4 g/gl (32-36); Mean Corpuscular Hgb 26.7 pg (27.0-32.0); Mean Corpuscular Volume 97.4 fL (81-99); Mean Platelet Vol. 9.4 fl (6.2-12.0); POSITIVE COUNT NO; POSITIVE DIFFERENTIAL YES; POSITIVE MORPHOLOGY NO; Platelet Count 437 K/mm3 (150-450); RBC Distribution Width CV 17.1 % (11.6-14.6); RBC Distribution Width SD 57.4 fl (35.1-43.9); Red Blood Count 3.11 M/mm3 (4.2-5.4)
[2017-06-01 09:25] LABS: Hypochromasia 2+
--- NOTE | 2017-06-01 10:34 | PCM.PN.CARD ---
Subjectve: Patient sitting in a chair, no acute distress, undergoing nebulizer therapy. Objective: Vital Signs Temp Pulse Resp BP Pulse Ox 98.0 F 88 18 97/47 L 91 06/01/17 09:00 06/01/17 09:00 06/01/17 09:00 06/01/17 09:00 06/01/17 09:00 Oxygen Flow Rate (L/min) 6 Oxygen Delivery Method Venturi Mask Weight: 262 lb 12.656 oz Body Mass Index (BMI) 46.5 Intake and Output for Last 24 Hours 05/30/17 05/31/17 06/01/17 23:59 23:59 23:59 Intake Total 180 / 180 1820 / 1820 633 / 633 Output Total 1525 / 1525 1200 / 1200 Balance 180 / 180 295 / 295 -567 / -567 General: Awake, Alert, Oriented x 3 HEENT: PERRL, EOMI, Sclera Non Icteric Neck: Supple, Good ROM, No Lymph Node Enlargement Lungs: Clear to auscultation Cardiovascular: Regular Rhythm, Normal S1, Normal S2, No Rubs, No Gallops Murmur Murmur: Grade 3/6, Early Systolic, Crescendo-Decrescendo, LLSB Vascular: No Carotid Bruits, Normal Femoral Pulses, Normal Radial Pulses, Normal Dorsalis Pedal Pulse, Normal Posterior Tibial Pulses Abdomen: Bowel Sounds Present, Soft, Non Tender, No HSM, No Organomegaly Extremities: No Cyanosis, No Clubbing, Bilateral Edema +2 Neurological: No Focal Motor or Sensory Deficit 06/01/17 06:58: WBC Cancelled, Corrected WBC Cancelled, RBC Cancelled, Hgb Cancelled, Hct Cancelled, MCV Cancelled, MCH Cancelled, MCHC Cancelled, RDW Cancelled, RDW Differential Cancelled, Plt Count Cancelled, MPV Cancelled 06/01/17 06:58: Sodium 138, Potassium 3.7, Chloride 91 L, Carbon Dioxide 42.0 H, Anion Gap 5, BUN 17, Creatinine 0.81, Est GFR (MDRD) Af Amer 90, Est GFR (MDRD) Non-Af 74, BUN/Creatinine Ratio 20.9 H, Glucose 158 H, Calcium 8.5 06/01/17 06:58: WBC 12.6 H, RBC 3.11 L, Hgb 8.3 L, Hct 30.3 L, MCV 97.4, MCH 26.7 L, MCHC 27.4 L, RDW 17.1 H, RDW Differential 57.4 H, Plt Count 437, MPV 9.4, Immature Gran % (Auto) 0.600, Neut % (Auto) 83.8 H, Lymph % (Auto) 4.7 L, [place] % (Auto) 9.2, Eos % (Auto) 1.4, Baso % (Auto) 0.3, Absolute Neuts (auto) 10.5 H, Total Counted Not Reportable Rhythm: Telemetry normal sinus rhythm, no acute changes. EKG: ECHO: Stress Test: Cardiac Cath: PCI: CT Surgery: Holter monitor: EPS: PPM: CXR: Chest CT Scan: Medical Necessity - Tobacco Use Smoking Status: Former smoker Tobacco Use: Non-smoker Assessment/Plan 1. Shortness of breath. After reviewing the patient's history, cardiac cath film, and echocardiogram, I believe that she may have significant aortic stenosis that is contributing to her overall condition. Her aortic valve is moderately to heavily calcified, with a peak and mean gradient approaching severe stenosis. In addition she appears to have at least moderate pulmonary hypertension as well as lower extremity edema, all of which are most likely contributed to her pulmonary symptoms. In addition I reviewed her catheterization film yesterday, and am concerned that she may have significant ostial stenosis of her left-sided coronary arteries. In addition her anemia may be a result of a combination of AV malformations, but we have not yet excluded possible RBC destruction due to her aortic stenosis. I have sent a haptoglobin, with results pending. I am in agreement with giving her PRBCs to attempt to get her hemoglobin above 10.0, and she did receive a unit of PRBCs yesterday with improvement of her symptoms. Recommend keeping her hemoglobin at least above 8.0. The patient's aortic stenosis gradients may be affected by her anemia making her gradients appear worse. This will be better evaluated when she has a repeat left and right heart catheterization. At this point the patient has had minimal diuresis with her IV Lasix. Would recommend discontinuation of IV Lasix and starting her on Bumex drip 0.5 mg/h. In addition I have given her metolazone 2.5 mg ?1 now to facilitate diuresis. She needs a 1500 cc fluid restriction and max concentration of all IV drips. Recommend Ryne bandages to facilitate venous return. As the patient is in acute congestive heart failure, we will reduce her Lopressor to 25 mg p.o. twice daily in the short-term. 2. Valvular heart disease Patient's aortic stenosis is at least moderate however in combination with her pulmonary hypertension, lower extremity edema, I believe she may be a candidate for aortic valve replacement even though her gradients are not at threshold. After reviewing her echocardiogram, it appears she has a narrow LV outflow tract and ascending aorta making to have a replacement of questionable benefit given the remaining [place] valve that will stay behind. It may be better for the patient to have a open aortic valve replacement to maximize her LV outflow track and a sending aorta pathway. Again this will be evaluated with a repeat left and right heart catheterization. 3. Coronary artery disease: After reviewing her catheterization film from 2013 patient may have significant ostial stenosis of her left circumflex artery. Once she is able to lay down flat we will proceed with left and right heart catheterization. She may require JUSTINA evaluation of the ostium of her coronaries and this may be contributing to her overall ischemia and symptoms. 4. Severe anemia She does have severe anemia likely secondary to AV malformations. This may be also related to her aortic stenosis. After she is appropriately tuned up she may need to consider going on chronic iron therapy to maintain her hemoglobin. Haptoglobin is pending. Thank you for allowing me to participate in the care of your patient. Please don't hesitate to call if any issues arise. Code Visit Inpatient E&M: 28883 Subs Hosp L2
--- NOTE | 2017-06-01 10:48 | PN.CARD_ITS ---
Subjectve: Patient sitting in a chair, no acute distress, undergoing nebulizer therapy. Objective: Vital Signs Temp Pulse Resp BP Pulse Ox 98.0 F 88 18 97/47 L 91 06/01/17 09:00 06/01/17 09:00 06/01/17 09:00 06/01/17 09:00 06/01/17 09:00 Oxygen Flow Rate (L/min) 6 Oxygen Delivery Method Venturi Mask Weight: 262 lb 12.656 oz Body Mass Index (BMI) 46.5 Intake and Output for Last 24 Hours 05/30/17 05/31/17 06/01/17 23:59 23:59 23:59 Intake Total 180 / 180 1820 / 1820 633 / 633 Output Total 1525 / 1525 1200 / 1200 Balance 180 / 180 295 / 295 -567 / -567 General: Awake, Alert, Oriented x 3 HEENT: PERRL, EOMI, Sclera Non Icteric Neck: Supple, Good ROM, No Lymph Node Enlargement Lungs: Clear to auscultation Cardiovascular: Regular Rhythm, Normal S1, Normal S2, No Rubs, No Gallops Murmur Murmur: Grade 3/6, Early Systolic, Crescendo-Decrescendo, LLSB Vascular: No Carotid Bruits, Normal Femoral Pulses, Normal Radial Pulses, Normal Dorsalis Pedal Pulse, Normal Posterior Tibial Pulses Abdomen: Bowel Sounds Present, Soft, Non Tender, No HSM, No Organomegaly Extremities: No Cyanosis, No Clubbing, Bilateral Edema +2 Neurological: No Focal Motor or Sensory Deficit 06/01/17 06:58: WBC Cancelled, Corrected WBC Cancelled, RBC Cancelled, Hgb Cancelled, Hct Cancelled, MCV Cancelled, MCH Cancelled, MCHC Cancelled, RDW Cancelled, RDW Differential Cancelled, Plt Count Cancelled, MPV Cancelled 06/01/17 06:58: Sodium 138, Potassium 3.7, Chloride 91 L, Carbon Dioxide 42.0 H , Anion Gap 5, BUN 17, Creatinine 0.81, Est GFR (MDRD) Af Amer 90, Est GFR (MDRD ) Non-Af 74, BUN/Creatinine Ratio 20.9 H, Glucose 158 H, Calcium 8.5 06/01/17 06:58: WBC 12.6 H, RBC 3.11 L, Hgb 8.3 L, Hct 30.3 L, MCV 97.4, MCH 26.7 L, MCHC 27.4 L, RDW 17.1 H, RDW Differential 57.4 H, Plt Count 437, MPV 9.4 , Immature Gran % (Auto) 0.600, Neut % (Auto) 83.8 H, Lymph % (Auto) 4.7 L, [place] % (Auto) 9.2, Eos % (Auto) 1.4, Baso % (Auto) 0.3, Absolute Neuts (auto) 10.5 H, Total Counted Not Reportable Rhythm: Telemetry normal sinus rhythm, no acute changes. EKG: ECHO: Stress Test: Cardiac Cath: PCI: CT Surgery: Holter monitor: EPS: PPM: CXR: Chest CT Scan: Medical Necessity - Tobacco Use Smoking Status: Former smoker Tobacco Use: Non-smoker Assessment/Plan 1. Shortness of breath. After reviewing the patient's history, cardiac cath film, and echocardiogram, I believe that she may have significant aortic stenosis that is contributing to her overall condition. Her aortic valve is moderately to heavily calcified, with a peak and mean gradient approaching severe stenosis. In addition she appears to have at least moderate pulmonary hypertension as well as lower extremity edema, all of which are most likely contributed to her pulmonary symptoms. In addition I reviewed her catheterization film yesterday, and am concerned that she may have significant ostial stenosis of her left-sided coronary arteries. In addition her anemia may be a result of a combination of AV malformations, but we have not yet excluded possible RBC destruction due to her aortic stenosis. I have sent a haptoglobin, with results pending. I am in agreement with giving her PRBCs to attempt to get her hemoglobin above 10.0, and she did receive a unit of PRBCs yesterday with improvement of her symptoms. Recommend keeping her hemoglobin at least above 8.0. The patient's aortic stenosis gradients may be affected by her anemia making her gradients appear worse. This will be better evaluated when she has a repeat left and right heart catheterization. At this point the patient has had minimal diuresis with her IV Lasix. Would recommend discontinuation of IV Lasix and starting her on Bumex drip 0.5 mg/h. In addition I have given her metolazone 2.5 mg ?1 now to facilitate diuresis. She needs a 1500 cc fluid restriction and max concentration of all IV drips. Recommend Ryne bandages to facilitate venous return. As the patient is in acute congestive heart failure, we will reduce her Lopressor to 25 mg p.o. twice daily in the short-term. 2. Valvular heart disease Patient's aortic stenosis is at least moderate however in combination with her pulmonary hypertension, lower extremity edema, I believe she may be a candidate for aortic valve replacement even though her gradients are not at threshold. After reviewing her echocardiogram, it appears she has a narrow LV outflow tract and ascending aorta making to have a replacement of questionable benefit given the remaining sun'aq valve that will stay behind. It may be better for the patient to have a open aortic valve replacement to maximize her LV outflow track and a sending aorta pathway. Again this will be evaluated with a repeat left and right heart catheterization. 3. Coronary artery disease: After reviewing her catheterization film from 2013 patient may have significant ostial stenosis of her left circumflex artery. Once she is able to lay down flat we will proceed with left and right heart catheterization. She may require JUSTINA evaluation of the ostium of her coronaries and this may be contributing to her overall ischemia and symptoms. 4. Severe anemia She does have severe anemia likely secondary to AV malformations. This may be also related to her aortic stenosis. After she is appropriately tuned up she may need to consider going on chronic iron therapy to maintain her hemoglobin. Haptoglobin is pending. Thank you for allowing me to participate in the care of your patient. Please don't hesitate to call if any issues arise. Code Visit Inpatient E&M: 96385 Subs Hosp L2
[2017-06-01] MEDS: Escitalopram Oxalate 10 MG Tablet PO (11:06)
[2017-06-01] MEDS: Fluticasone 0.05% 1 SPRAY NASAL.SRY NASAL ×2 (11:06→21:32)
[2017-06-01] MEDS: Metolazone 2.5 MG Tablet PO (11:09)
[2017-06-01] MEDS: Metoprolol Tartrate 25 MG Tablet PO ×2 (11:09→21:32)
[2017-06-01 12:06] LABS: Bedside Glucose 190 mg/dL (70-110)
--- NOTE | 2017-06-01 16:16 | PN_ITS ---
Patient Problems: Active and Suspected Problems (Last Updated 05/30/17 @ 16:02 by David Montana MD) Acute on chronic respiratory failure with hypoxia and hypercapnia (Acute) Acute on chronic diastolic (congestive) heart failure (Acute) Subjective: She is feeling better with improvement of dyspnea at rest, but still having problems with dyspnea with minimal exertion. +minimal cough. - Physical Exam General: Alert, Oriented x3, Cooperative HEENT: Atraumatic, PERRLA, Normocephalic Oral: Moist Mucosa, No Gingival or Mucosal Lesions/ Ulcerations Neck: Supple, No JVD Lungs: Rales - diffusely involving all lung mckeon bilaterally. Diminished breath sounds at left base. Cardiovascular: Regular rate, Regular Rhythm, Normal S1, Normal S2, No murmurs, No Ectopic Activity Abdomen: Bowel Sounds Present, Soft, Non Tender, Non-Distended, Obese Extremities: No clubbing, No cyanosis, Edema - trace edema. Skin: No rashes, No breakdown Musculoskeletal: No Tenderness to Palpation of Joints or Extremities, No Muscle Wasting Lymphatic: No Cervical, Supraclavicular, or Inguinal Adenopathy Neurological: Cranial nerves II-XII grossly intact, Neuro grossly intact Psych/Mental Status: Normal Affect Vital Signs Temp Pulse Resp BP Pulse Ox 98.1 F 83 18 135/57 H 93 06/01/17 14:00 06/01/17 14:48 06/01/17 14:48 06/01/17 14:00 06/01/17 14:00 Oxygen Flow Rate (L/min) 15 Oxygen Delivery Method Room Air Weight: 262 lb 12.656 oz Body Mass Index (BMI) 46.5 Intake and Output for Last 24 Hours 05/30/17 05/31/17 06/01/17 23:59 23:59 23:59 Intake Total 180 / 180 1820 / 1820 933 / 933 Output Total 1525 / 1525 1950 / 1950 Balance 180 / 180 295 / 295 -1017 / -1017 Microbiology Past 72 Hours 05/31/17 13:18 Respiratory Panel (PCR) - Final Mucosa - Nasopharyngeal Laboratory Tests Past 24 Hrs 05/30/17 05/31/17 06/01/17 16:31 15:40 06:58 WBC Corrected WBC RBC Hgb Hct MCV MCH MCHC RDW RDW Differential Plt Count MPV Immature Gran % (Auto) Neut % (Auto) Lymph % (Auto) [place] % (Auto) Eos % (Auto) Baso % (Auto) Absolute Neuts (auto) Absolute Lymphs (auto) Total Counted Diff Path Review Hypochromasia Haptoglobin Pending Sodium Potassium Chloride Carbon Dioxide Anion Gap BUN Creatinine Estim Creat Clear Calc Est GFR (MDRD) Af Amer Est GFR (MDRD) Non-Af BUN/Creatinine Ratio Glucose Calcium Crossmatch See Detail See Detail 06/01/17 06/01/17 06/01/17 06:58 06:58 06:58 WBC Cancelled 12.6 H Corrected WBC Cancelled RBC Cancelled 3.11 L Hgb Cancelled 8.3 L Hct Cancelled 30.3 L MCV Cancelled 97.4 MCH Cancelled 26.7 L MCHC Cancelled 27.4 L RDW Cancelled 17.1 H RDW Differential Cancelled 57.4 H Plt Count Cancelled 437 MPV Cancelled 9.4 Immature Gran % (Auto) 0.600 Neut % (Auto) 83.8 H Lymph % (Auto) 4.7 L [place] % (Auto) 9.2 Eos % (Auto) 1.4 Baso % (Auto) 0.3 Absolute Neuts (auto) 10.5 H Absolute Lymphs (auto) 0.59 L Total Counted Not Reportable Diff Path Review Cancelled Hypochromasia 2+ Haptoglobin Sodium 138 Potassium 3.7 Chloride 91 L Carbon Dioxide 42.0 H Anion Gap 5 BUN 17 Creatinine 0.81 Estim Creat Clear Calc 54.99 Est GFR (MDRD) Af Amer 90 Est GFR (MDRD) Non-Af 74 BUN/Creatinine Ratio 20.9 H Glucose 158 H Calcium 8.5 Crossmatch POC Glucose 06/01/17 06/01/17 05/31/17 11:21 06:45 22:39 POC Glucose 190 H 171 H 167 H 05/31/17 16:44 POC Glucose 177 H Diagnostic Data Chest X-Ray 05/30/17 00:00 IMPRESSION: Cardiomegaly and mild CHF. Electronically Signed: Jonah Conner MD at 12:39 EDT Tel [phone], Service support , Medical Necessity - Tobacco Use Smoking Status: Former smoker Tobacco Use: Non-smoker Assessment/Plan Active and Suspected Problems (Last Updated 05/30/17 @ 16:02 by David Montana MD) Acute on chronic respiratory failure with hypoxia and hypercapnia (Acute) Acute on chronic diastolic (congestive) heart failure (Acute) Patient is a 66-year-old female with past medical history significant for severe aortic stenosis, chronic hypoxic respiratory failure secondary to COPD, pulmonary hypertension as well as pulmonary fibrosis, presented with worsening of dyspnea, consistent with acute on chronic hypoxic and hypercapnic respiratory failure. #1 Acute on chronic hypoxic and hypercapnic respiratory failure Mostly from CHF, with underlining COPD, pulmonary fibrosis, and pulmonary hypertension. She is on home oxygen, 5 L via [place]. Oxygen weaned to 6 liter now. Continue Bronchodilator, DuoNeb and albuterol [place] prn. Continue budesonide MDI. Treatment for CHF as below. #2 Acute on chronic diastolic CHF -chest x-ray as noted above. Troponin negative. Started on Lasix IV, 1500 fluid restriction. Strict I&O. Echocardiogram shows estimated ejection fraction 60%, moderate tricuspid valve insufficiency, pulmonary artery systolic pressure is 60 mmHg, moderately severe aortic stenosis. Possible right heart cath this admission when pulmonary status is stable. Bumex drip 0.5 mg/hr for now. She has negative fluid balance. #3 Severe chronic COPD/pulmonary hypertension/pulmonary fibrosis Continue supplemental oxygen to maintain O2 at 88 to 92% range. No evidence of acute COPD exacerbation. #4 Acute on chronic normocytic anemia -baseline hemoglobin approximately 8. Hemoglobin currently 7.5. Patient to receive 1 unit packed red blood cells for symptomatic anemia with shortness of breath and weakness. Monitor CBC. #5 Moderate to severe aortic stenosis -has been evaluated by [facility] cardiology in the past for TAVR. The overall consensus is currently that she is not a candidate for aortic valve replacement at this time. She will continue outpatient follow-up with cardiology with serial echocardiograms. #6 Type 2 diabetes mellitus-oral regimen on hold. Accu-Cheks before meals at bedtime with sliding scale insulin. #7 Hypertension-stable, continue home regimen. #8 Hyperlipidemia-continue statin. #9 History of GI AVM DVT prophylaxis-SCDs. GI prophylaxis: PPI po. patient is full code. Disposition: to be determined. Home with home care vs. SNF rehab in 2 to 3 days. Code Visit Inpatient E&M: 09104 Subs Hosp L2
[2017-06-01 16:45] LABS: Bedside Glucose 169 mg/dL (70-110)
[2017-06-01] MEDS: Atorvastatin Calcium 10 MG Tablet PO (21:31)
[2017-06-01 21:46] LABS: Bedside Glucose 156 mg/dL (70-110)
[2017-06-02] VITALS (24 sets, daily range): BP systolic 100–128; BP diastolic 49–59; PULSE 75–103; RESP 12–22; TEMP 36.1–36.8; O2SAT 85–100
--- NOTE | 2017-06-02 01:22 | CPS ---
PT STATES SHE UNABLE TO TOLERATE BIPAP
[2017-06-02] MEDS: Ipratropium/Albuterol Sulfate 3 ML AMPUL.NEB INHALATION ×6 (03:00→23:10)
--- NOTE | 2017-06-02 04:03 | CPS ---
increased Fio2 to 50%
[2017-06-02 06:37] LABS: Hematocrit 31.3 % (37-47); Hemoglobin 8.3 g/dl (12.0-15.0); Mean Corp Hgb Conc 26.5 g/gl (32-36); Mean Corpuscular Volume 98.1 fL (81-99); Mean Platelet Vol. 9.5 fl (6.2-12.0); Platelet Count 443 K/mm3 (150-450); RBC Distribution Width CV 16.9 % (11.6-14.6); RBC Distribution Width SD 56.6 fl (35.1-43.9); Red Blood Count 3.19 M/mm3 (4.2-5.4); White Blood Count 11.7 K/mm3 (4.4-11.0)
[2017-06-02 06:40] LABS: Scan Indicated on CBC? Y/N NO
[2017-06-02 06:51] LABS: Anion Gap 6 (5-15); BUN 18 mg/dL (7-18); BUN/Creat Ratio 20.3 RATIO (10-20); Calcium,Total 8.8 mg/dL (8.5-10.1); Chloride 89 mmol/L (98-107); Creatinine, Serum 0.89 mg/dL (0.55-1.02); EST Glomerular Filtration Rate 67 mL/min (>60); Est Glom Filt Rate - Afr Amer 81 mL/min (>60); Estimated Creatinine Clearance 50.04 ml/min; Glucose 140 mg/dL (74-106); Potassium 3.4 mmol/L (3.5-5.1); Sodium Level 139 mmol/L (136-145)
--- NOTE | 2017-06-02 07:06 | PCM.PROGNOTE ---
Patient Problems: Active and Suspected Problems (Last Updated 05/30/17 @ 16:02 by David Montana MD) Acute on chronic respiratory failure with hypoxia and hypercapnia (Acute) Acute on chronic diastolic (congestive) heart failure (Acute) Subjective: The patient was seen and examined at the bedside this morning. Events from the last 24 hours have been reviewed. The patient is currently afebrile, hemodynamically stable and maintaining appropriate oxygen saturations on a 50% Ventimask. The patient was documented to be overall net -2 L yesterday. She is now overall net -2.6 L for the admission. Potassium is low this morning at 3.4. The patient reports an intolerance to BiPAP overnight. For her hospitalization, the patient has received 2 units packed red blood cells to date. The patient did have a Whiteside catheter placed yesterday. She is now on a Bumex drip. Cardiology now feels that her aortic stenosis is now becoming severe in nature. Objective: The patient's most recent lab work, culture data and imaging studies have all been personally reviewed. Respiratory viral panel was negative. - Physical Exam General: Alert, Cooperative, No apparent distress, - - Morbidly obese. Sitting in bedside recliner. HEENT: Atraumatic, PERRLA, Normocephalic Oral: Moist Mucosa, No Gingival or Mucosal Lesions/ Ulcerations Neck: Supple, No Nodes, Trachea Midline Lungs: No rhonchi, No wheeze, No rales, Diminished Cardiovascular: Regular rate, Regular Rhythm, Normal S1, Normal S2, Murmur Abdomen: Bowel Sounds Present, Soft, Non Tender, Obese Extremities: No clubbing, No cyanosis, Edema - Bilateral lower extremity Skin: - - Lower extremity venous stasis dermatitis Musculoskeletal: No Muscle Wasting Lymphatic: No Cervical, Supraclavicular, or Inguinal Adenopathy Neurological: Neuro grossly intact Psych/Mental Status: Normal Affect, Appropriate Vital Signs Temp Pulse Resp BP Pulse Ox 97 F L 84 16 112/57 L 93 06/02/17 03:54 06/02/17 03:54 06/02/17 03:54 06/02/17 03:54 06/02/17 06:05 Oxygen Flow Rate (L/min) 6 Oxygen Delivery Method Venturi Mask Weight: 262 lb 12.656 oz Body Mass Index (BMI) 46.5 Intake and Output for Last 24 Hours 05/31/17 06/01/17 06/02/17 23:59 23:59 23:59 Intake Total 1820 / 1820 1413 / 1413 140 / 140 Output Total 1525 / 1525 3450 / 3450 1200 / 1200 Balance 295 / 295 -2037 / -2037 -1060 / -1060 Microbiology Past 72 Hours 05/31/17 13:18 Respiratory Panel (PCR) - Final Mucosa - Nasopharyngeal Laboratory Tests Past 24 Hrs 06/01/17 06/01/17 06/01/17 06:58 06:58 06:58 WBC Cancelled Corrected WBC Cancelled RBC Cancelled Hgb Cancelled Hct Cancelled MCV Cancelled MCH Cancelled MCHC Cancelled RDW Cancelled RDW Differential Cancelled Plt Count Cancelled MPV Cancelled Immature Gran % (Auto) Neut % (Auto) Lymph % (Auto) [place] % (Auto) Eos % (Auto) Baso % (Auto) Absolute Neuts (auto) Absolute Lymphs (auto) Total Counted Diff Path Review Cancelled Hypochromasia Haptoglobin Pending Sodium 138 Potassium 3.7 Chloride 91 L Carbon Dioxide 42.0 H Anion Gap 5 BUN 17 Creatinine 0.81 Estim Creat Clear Calc 54.99 Est GFR (MDRD) Af Amer 90 Est GFR (MDRD) Non-Af 74 BUN/Creatinine Ratio 20.9 H Glucose 158 H Calcium 8.5 06/01/17 06/02/17 06/02/17 06:58 06:12 06:12 WBC 12.6 H 11.7 H Corrected WBC RBC 3.11 L 3.19 L Hgb 8.3 L 8.3 L Hct 30.3 L 31.3 L MCV 97.4 98.1 MCH 26.7 L 26.0 L MCHC 27.4 L 26.5 L RDW 17.1 H 16.9 H RDW Differential 57.4 H 56.6 H Plt Count 437 443 MPV 9.4 9.5 Immature Gran % (Auto) 0.600 Neut % (Auto) 83.8 H Lymph % (Auto) 4.7 L [place] % (Auto) 9.2 Eos % (Auto) 1.4 Baso % (Auto) 0.3 Absolute Neuts (auto) 10.5 H Absolute Lymphs (auto) 0.59 L Total Counted Not Reportable Diff Path Review Hypochromasia 2+ Haptoglobin Sodium 139 Potassium 3.4 L Chloride 89 L Carbon Dioxide 44.0 H Anion Gap 6 BUN 18 Creatinine 0.89 Estim Creat Clear Calc 50.04 Est GFR (MDRD) Af Amer 81 Est GFR (MDRD) Non-Af 67 BUN/Creatinine Ratio 20.3 H Glucose 140 H Calcium 8.8 POC Glucose 06/01/17 06/01/17 06/01/17 21:39 16:38 11:21 POC Glucose 156 H 169 H 190 H 06/01/17 06:45 POC Glucose 171 H Clinical Impression(s) from Imaging Studies Chest X-Ray 05/30/17 00:00 IMPRESSION: Cardiomegaly and mild CHF. Electronically Signed: Jonah Conner MD at 12:39 EDT Tel [phone], Service support , Medical Necessity - Tobacco Use Smoking Status: Former smoker Tobacco Use: Non-smoker Assessment/Plan Active and Suspected Problems (Last Updated 05/30/17 @ 16:02 by David Montana MD) Acute on chronic respiratory failure with hypoxia and hypercapnia (Acute) Acute on chronic diastolic (congestive) heart failure (Acute) RECOMMENDATIONS: 1. Continue Whiteside to document accurate I's and O's, maintain fluid restriction 2. Continue Bumex drip 3. Wean supplemental oxygen. The patient needs to be maintained 88-92%, to prevent paradoxical CO2 retention. 4. Maintain hemoglobin level greater than 8 g/dL 5. Aggressive electrolyte repletion 6. Tentative plans for repeat cardiac catheterization (left and right) once the patient is able to lay flat 7. BiPAP therapy with naps and nightly 8. Continue aerosol regimen as ordered 9. Encourage incentive spirometer use and mobilize patient as tolerated IMPRESSIONS: 1. Acute on chronic hypoxemic and hypercarbic respiratory failure The patient's presentation is again likely multifactorial in etiology with severe COPD, alveolar hypoventilation, obesity, aortic stenosis and dietary indiscretions likely all contributing. In addition, the patient has a normocytic anemia. She is already on a maximal outpatient inhaler regimen for her underlying COPD. Recommend continued use of BiPAP therapy with naps and nightly. Would recommend maintaining oxygen saturations 88-92%, to prevent paradoxical CO2 retention. Continue scheduled budesonide and DuoNeb's, in conjunction with as needed albuterol. Agree with continued attempts at volume optimization with IV Bumex drip. Document strict I's and O's and maintain fluid restriction. Tentative plans for cardiac catheterization once the patient is able to lay flat. Encourage incentive spirometer use and mobilize patient as tolerated. 2. Aortic stenosis/diastolic heart failure with exacerbation/pulmonary hypertension/coronary artery disease Continue current medical management per cardiology recommendations. Continue diuresis as tolerated. This note was generated with [employer] dictation software. It may contain incorrect words, spelling, and punctuation that were not noted in checking the note before signing. Code Visit Inpatient E&M: 75859 Subs Hosp L2
[2017-06-02 07:36] LABS: Bedside Glucose 151 mg/dL (70-110)
[2017-06-02] MEDS: Budesonide Respules 0.5 MG/2 ML AMPUL.NEB. INHALATION ×2 (07:53→18:43)
[2017-06-02] MEDS: Ferrous Sulfate 325 MG Tablet PO ×2 (08:36→17:27)
[2017-06-02] MEDS: Acetaminophen 325 MG Tablet 650 MG PO ×2 (08:36→22:40)
[2017-06-02] MEDS: Fluticasone 0.05% 1 SPRAY NASAL.SRY NASAL ×2 (08:50→22:24)
[2017-06-02] MEDS: Escitalopram Oxalate 10 MG Tablet PO (08:50)
[2017-06-02] MEDS: Metoprolol Tartrate 50 MG Tablet PO ×2 (08:50→22:35)
[2017-06-02] MEDS: Pantoprazole Sodium 20 MG Tablet PO (09:15)
--- NOTE | 2017-06-02 10:07 | PN.CARD_ITS ---
Subjectve: Patient reports that she feels though her heart is racing, most likely due to decreasing her beta-lorena yesterday. Diuresis is been about -3 L over the last day and a half with IV Bumex drip and metolazone ?1. Lower extremity edema appears to be mildly improved although still pachydermia is present. Objective: Vital Signs Temp Pulse Resp BP Pulse Ox 98.1 F 103 H 19 H 100/49 L 88 06/02/17 08:50 06/02/17 08:50 06/02/17 08:50 06/02/17 08:50 06/02/17 08:50 Oxygen Flow Rate (L/min) 6 Oxygen Delivery Method Venturi Mask Weight: 256 lb 6.362 oz Body Mass Index (BMI) 46.5 Intake and Output for Last 24 Hours 05/31/17 06/01/17 06/02/17 23:59 23:59 23:59 Intake Total 1820 / 1820 1413 / 1413 140 / 140 Output Total 1525 / 1525 3450 / 3450 1200 / 1200 Balance 295 / 295 -2037 / -2037 -1060 / -1060 General: Awake, Alert, Oriented x 3 HEENT: PERRL, EOMI, Sclera Non Icteric Neck: Supple, Good ROM, No Lymph Node Enlargement Lungs: Clear to auscultation Cardiovascular: Regular Rhythm, Normal S1, Normal S2, No Rubs, No Gallops Murmur Murmur: Grade 3/6, Early Systolic, Crescendo-Decrescendo, LLSB Vascular: No Carotid Bruits, Normal Femoral Pulses, Normal Radial Pulses, Normal Dorsalis Pedal Pulse, Normal Posterior Tibial Pulses Abdomen: Bowel Sounds Present, Soft, Non Tender, No HSM, No Organomegaly Extremities: No Cyanosis, No Clubbing, No edema Neurological: No Focal Motor or Sensory Deficit 06/02/17 06:12: WBC 11.7 H, RBC 3.19 L, Hgb 8.3 L, Hct 31.3 L, MCV 98.1, MCH 26.0 L, MCHC 26.5 L, RDW 16.9 H, RDW Differential 56.6 H, Plt Count 443, MPV 9.5 06/02/17 06:12: Sodium 139, Potassium 3.4 L, Chloride 89 L, Carbon Dioxide 44.0 H, Anion Gap 6, BUN 18, Creatinine 0.89, Est GFR (MDRD) Af Amer 81, Est GFR ( MDRD) Non-Af 67, BUN/Creatinine Ratio 20.3 H, Glucose 140 H, Calcium 8.8 Rhythm: EKG: ECHO: Stress Test: Cardiac Cath: PCI: CT Surgery: Holter monitor: EPS: PPM: CXR: Chest CT Scan: Medical Necessity - Tobacco Use Smoking Status: Former smoker Tobacco Use: Non-smoker Assessment/Plan 1. Shortness of breath. After reviewing the patient's history, cardiac cath film, and echocardiogram, I believe that she may have significant aortic stenosis that is contributing to her overall condition. Her aortic valve is moderately to heavily calcified, with a peak and mean gradient approaching severe stenosis. In addition she appears to have at least moderate pulmonary hypertension as well as lower extremity edema, all of which are most likely contributed to her pulmonary symptoms. In addition I reviewed her catheterization film, and am concerned that she may have significant ostial stenosis of her left-sided coronary arteries. In addition her anemia may be a result of a combination of AV malformations, but we have not yet excluded possible RBC destruction due to her aortic stenosis. I have sent a haptoglobin, with results pending. I am in agreement with giving her PRBCs to attempt to get her hemoglobin above 10.0, and she did receive a unit of PRBCs yesterday with improvement of her symptoms. Recommend keeping her hemoglobin at least above 8.0. The patient's aortic stenosis gradients may be affected by her anemia making her gradients appear worse. This will be better evaluated when she has a repeat left and right heart catheterization. At this point the patient has had minimal diuresis with her IV Lasix. Would recommend discontinuation of IV Lasix and starting her on Bumex drip 0.5 mg/h. In addition I have given her metolazone 2.5 mg ?1 now to facilitate diuresis. I am pleased with her 1-2 L of net negative IV diuresis. Would not be more aggressive at this time given her pulmonary hypertension as she may be preload dependent and may precipitate a drop in blood pressure if over diuresed. She needs a 1500 cc fluid restriction and max concentration of all IV drips. Recommend Ryne bandages to facilitate venous return. Patient's heart rate is increased with IV diuresis and reduction of beta-lorena , and she has symptomatic tachycardia although she is in sinus rhythm. Recommend increasing back her Lopressor to 50 mg p.o. twice daily. 2. Valvular heart disease Patient's aortic stenosis is at least moderate however in combination with her pulmonary hypertension, lower extremity edema, I believe she may be a candidate for aortic valve replacement even though her gradients are not right at threshold. After reviewing her echocardiogram, it appears she has a narrow LV outflow tract and ascending aorta making to have a replacement of questionable benefit given the remaining chicken ranch valve that will stay behind. It may be better for the patient to have a open aortic valve replacement to maximize her LV outflow track and a sending aorta pathway. Again this will be evaluated with a repeat left and right heart catheterization once the patient's hemodynamic status has been optimized and she is able to lay down flat for the procedure. 3. Coronary artery disease: After reviewing her catheterization film from 2013 patient may have significant ostial stenosis of her left circumflex artery. Once she is able to lay down flat we will proceed with left and right heart catheterization. She may require JUSTINA evaluation of the ostium of her coronaries and this may be contributing to her overall ischemia and symptoms. 4. Severe anemia She does have severe anemia likely secondary to AV malformations. This may be also related to her aortic stenosis. After she is appropriately tuned up she may need to consider going on chronic iron therapy to maintain her hemoglobin. Haptoglobin is pending. Thank you for allowing me to participate in the care of your patient. Please don't hesitate to call if any issues arise. Code Visit Inpatient E&M: 99912 Subs Hosp L2
[2017-06-02 11:31] LABS: Bedside Glucose 170 mg/dL (70-110)
--- NOTE | 2017-06-02 11:59 | PCM.PROGNOTE ---
Patient Problems: Active and Suspected Problems (Last Updated 05/30/17 @ 16:02 by David Montana MD) Acute on chronic respiratory failure with hypoxia and hypercapnia (Acute) Acute on chronic diastolic (congestive) heart failure (Acute) Subjective: She is feeling somewhat better. 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 - Physical Exam General: Alert, Oriented x3, Cooperative HEENT: Atraumatic, PERRLA, Normocephalic Oral: Moist Mucosa, No Gingival or Mucosal Lesions/ Ulcerations Neck: Supple, No JVD Lungs: Diffuse coarse rales, showing some improvement today. Diminished breath sounds at left base. Cardiovascular: Regular rate, Regular Rhythm, Normal S1, Normal S2, No murmurs, No Ectopic Activity Abdomen: Bowel Sounds Present, Soft, Non Tender, Non-Distended, Obese Extremities: No clubbing, No cyanosis, Edema - trace edema. Skin: No rashes, No breakdown Musculoskeletal: No Tenderness to Palpation of Joints or Extremities, No Muscle Wasting Lymphatic: No Cervical, Supraclavicular, or Inguinal Adenopathy Neurological: Cranial nerves II-XII grossly intact, Neuro grossly intact Psych/Mental Status: Normal Affect - Physical Exam Vital Signs Temp Pulse Resp BP Pulse Ox 98.1 F 78 21 H 105/54 L 100 06/02/17 10:05 06/02/17 11:20 06/02/17 11:20 06/02/17 10:05 06/02/17 10:05 Oxygen Flow Rate (L/min) 6 Oxygen Delivery Method Bi-pap Weight: 256 lb 6.362 oz Body Mass Index (BMI) 46.5 Intake and Output for Last 24 Hours 05/31/17 06/01/17 06/02/17 23:59 23:59 23:59 Intake Total 1820 / 1820 1413 / 1413 500 / 500 Output Total 1525 / 1525 3450 / 3450 2200 / 2200 Balance 295 / 295 -2037 / -2037 -1700 / -1700 Microbiology Past 72 Hours 05/31/17 13:18 Respiratory Panel (PCR) - Final Mucosa - Nasopharyngeal Laboratory Tests Past 24 Hrs 06/02/17 06/02/17 06:12 06:12 WBC 11.7 H RBC 3.19 L Hgb 8.3 L Hct 31.3 L MCV 98.1 MCH 26.0 L MCHC 26.5 L RDW 16.9 H RDW Differential 56.6 H Plt Count 443 MPV 9.5 Sodium 139 Potassium 3.4 L Chloride 89 L Carbon Dioxide 44.0 H Anion Gap 6 BUN 18 Creatinine 0.89 Estim Creat Clear Calc 50.04 Est GFR (MDRD) Af Amer 81 Est GFR (MDRD) Non-Af 67 BUN/Creatinine Ratio 20.3 H Glucose 140 H Calcium 8.8 POC Glucose 06/02/17 06/02/17 06/01/17 11:22 06:52 21:39 POC Glucose 170 H 151 H 156 H 06/01/17 06/01/17 16:38 11:21 POC Glucose 169 H 190 H Diagnostic Data Chest X-Ray 05/30/17 00:00 IMPRESSION: Cardiomegaly and mild CHF. Electronically Signed: Jonah Conner MD at 12:39 EDT Tel [phone], Service support , Medical Necessity - Tobacco Use Smoking Status: Former smoker Tobacco Use: Non-smoker Assessment/Plan Active and Suspected Problems (Last Updated 05/30/17 @ 16:02 by David Montana MD) Acute on chronic respiratory failure with hypoxia and hypercapnia (Acute) Acute on chronic diastolic (congestive) heart failure (Acute) Patient is a 66-year-old female with past medical history significant for severe aortic stenosis, chronic hypoxic respiratory failure secondary to COPD, pulmonary hypertension as well as pulmonary fibrosis, presented with worsening of dyspnea, consistent with acute on chronic hypoxic and hypercapnic respiratory failure. #1 Acute on chronic hypoxic and hypercapnic respiratory failure Mostly from CHF with underlining COPD, pulmonary fibrosis, and pulmonary hypertension. She was on home oxygen, 5 L via NC. Oxygen was increased with use of venturi mask during the night. Continue Bronchodilator, DuoNeb and albuterol [place] prn. Continue budesonide MDI. Treatment for CHF as below. #2 Acute on chronic diastolic CHF chest x-ray as noted above. Troponin negative. Started on Lasix IV, 1500 fluid restriction. Strict I&O. Echocardiogram shows estimated ejection fraction 60%, moderate tricuspid valve insufficiency, pulmonary artery systolic pressure is 60 mmHg, moderately severe aortic stenosis. Possible right heart cath this admission when pulmonary status is stable. Bumex drip 0.5 mg/hr started on 06/01, continue for now. She has negative fluid balance, slowly diuresing. Zaroxolyn 2.5 mg po x 1 today. #3 Severe chronic COPD/pulmonary hypertension/pulmonary fibrosis Continue supplemental oxygen to maintain O2 at 88 to 92% range to avoid CO2 retention. No evidence of acute COPD exacerbation. #4 Acute on chronic normocytic anemia with chronic blood loss, possibly with GI AVM. Baseline hemoglobin approximately 8. Hgb was 7.5, received 1 units PRBC. Hgb improved to 8.3, stable so far. Monitor CBC. #5 Moderate to severe aortic stenosis -has been evaluated by [facility] cardiology in the past for TAVR. The overall consensus is that she is not a candidate for aortic valve replacement at this time. She will continue outpatient follow-up with cardiology with serial echocardiograms. #6 Type 2 diabetes mellitus-oral regimen on hold. Accu-Cheks before meals at bedtime with sliding scale insulin. #7 Hypertension-stable, continue home regimen. #8 Hyperlipidemia-continue statin. #9 History of GI AVM #10 Hypokalemia. Supplement KCL. DVT prophylaxis. CHADD wrap / SCD. No chemoprophylaxis for anemia with slow GI blood loss. GI prophylaxis: PPI po. patient is full code. Disposition: to be determined. Home with home care vs. SNF rehab in 2 to 3 days. PT/OT. Code Visit Inpatient E&M: 23517 Subs Hosp L3
[2017-06-02 17:01] LABS: Bedside Glucose 150 mg/dL (70-110)
[2017-06-02] MEDS: Atorvastatin Calcium 10 MG Tablet PO (22:25)
[2017-06-02 22:51] LABS: Bedside Glucose 233 mg/dL (70-110)
[2017-06-03] VITALS (17 sets, daily range): BP systolic 110–122; BP diastolic 42–54; PULSE 68–95; RESP 16–18; TEMP 36.1–36.6; O2SAT 91–96
[2017-06-03] MEDS: Ipratropium/Albuterol Sulfate 3 ML AMPUL.NEB INHALATION ×5 (02:28→20:02)
--- NOTE | 2017-06-03 03:16 | CPS ---
pt refused bipap
[2017-06-03 04:08] LABS: Bacteria 0 SEEN /hpf (None Seen); Mucous, Urine 0 SEEN /hpf (<or=2+); Squamous Epithelial Cells - UA 0 SEEN /hpf (5-10)
[2017-06-03 04:17] LABS: Color, Urine Straw (Yellow); Glucose, Dipstick Normal (Normal); Ketone-Dipstick Negative (Negative); Leukocyte Esterase-Dipstick 500 /ul (Negative); Nitrite-Dipstick Negative (Negative); Occult Blood-Urine 250 /ul (Negative); Protein-Dipstick 15 mg/dl (Negative); Urine Bilirubin Dipstick Negative (Negative); Urine Clarity Sl. Cloudy (Clear); Urine Urobilinogen Normal (Normal)
--- NOTE | 2017-06-03 05:55 | EKG12_ITS ---
Test Reason : AM EKG Blood Pressure : / mmHG Vent. Rate : 070 BPM Atrial Rate : 070 BPM P-R Int : 144 ms QRS Dur : 152 ms QT Int : 478 ms P-R-T Axes : 062 076 013 degrees QTc Int : 516 ms Normal sinus rhythm Right bundle branch block Abnormal ECG When compared with ECG of 31-MAY-2017 05:10, MANUAL COMPARISON REQUIRED, DATA IS UNCONFIRMED Confirmed by EJ PETERSON ([id number]), greeting card editor MONA NGO ([id number]) on 06/06/2017 3:07:27 PM Referred By: JANNA Confirmed By:EJ PETERSON
[2017-06-03 06:16] LABS: International Normalized Ratio 1.2; Prothrombin Time (Protime)PT. 15.2 SECONDS (11.7-14.9)
[2017-06-03 06:17] LABS: Partial Thromboplast Time 35.4 Seconds (24.1-36.2)
[2017-06-03 06:21] LABS: Hematocrit 30.3 % (37-47); Hemoglobin 8.2 g/dl (12.0-15.0); Mean Corp Hgb Conc 27.1 g/gl (32-36); Mean Corpuscular Hgb 26.5 pg (27.0-32.0); Mean Corpuscular Volume 97.7 fL (81-99); Mean Platelet Vol. 9.5 fl (6.2-12.0); Platelet Count 428 K/mm3 (150-450); RBC Distribution Width CV 17.1 % (11.6-14.6); RBC Distribution Width SD 57.1 fl (35.1-43.9); White Blood Count 10.6 K/mm3 (4.4-11.0)
[2017-06-03 06:40] LABS: Scan Indicated on CBC? Y/N NO
[2017-06-03 06:51] LABS: Bedside Glucose 159 mg/dL (70-110)
[2017-06-03 07:00] LABS: BUN 24 mg/dL (7-18); BUN/Creat Ratio 23.8 RATIO (10-20); Calcium,Total 8.8 mg/dL (8.5-10.1); Carbon Dioxide > 45.0 mmol/L (21.0-32.0); Chloride 86 mmol/L (98-107); Creatinine, Serum 1.01 mg/dL (0.55-1.02); EST Glomerular Filtration Rate 58 mL/min (>60); Est Glom Filt Rate - Afr Amer 70 mL/min (>60); Estimated Creatinine Clearance 43.49 ml/min; Glucose 137 mg/dL (74-106); Magnesium 1.5 mg/dL (1.6-2.6); Potassium 3.3 mmol/L (3.5-5.1); Sodium Level 138 mmol/L (136-145)
--- NOTE | 2017-06-03 07:04 | PCM.PROGNOTE ---
Patient Problems: Active and Suspected Problems (Last Updated 05/30/17 @ 16:02 by David Montana MD) Acute on chronic respiratory failure with hypoxia and hypercapnia (Acute) Acute on chronic diastolic (congestive) heart failure (Acute) Subjective: Patient did okay overnight. Patient not tolerating BiPAP therapy and remains on 50% Ventimask. Patient continues to desaturate with minimal movement per nursing. Patient denies any current chest pain, but does have dyspnea on minimal exertion. Patient feels subjectively that her swelling in her hands is improved compared to admission. - Physical Exam General: Alert, Oriented x3, Cooperative, No apparent distress, - - Morbidly obese. Appears older than stated age. HEENT: Atraumatic, PERRLA, EOMI, Normocephalic, - - Slight scleral injection without icterus Oral: No Gingival or Mucosal Lesions/ Ulcerations, Dry Mucosa Neck: Supple, No Nodes, Trachea Midline, JVD, Right Lungs: No rhonchi, Diminished, Rales, Wheezes, - - Metric expansion. Slight dullness at the bases. Cardiovascular: Regular rate, Regular Rhythm, Normal S1, Normal S2, Murmur - Grade 3 out of 6 late systolic ejection murmur at the right upper sternal border Abdomen: Bowel Sounds Present, Soft, Non Tender, Non-Distended Extremities: No clubbing, No cyanosis, Edema, Tenderness - Palpation of the lower extremities Skin: - - Chronic stasis changes lower extremities. Dermal atrophy noted. Musculoskeletal: No Tenderness to Palpation of Joints or Extremities Lymphatic: No Cervical, Supraclavicular, or Inguinal Adenopathy Neurological: Cranial nerves II-XII grossly intact, Neuro grossly intact Psych/Mental Status: Alert and oriented to time, place, person, mood and affect Vital Signs Temp Pulse Resp BP Pulse Ox 36.1 C L 68 16 110/50 L 96 06/03/17 03:48 06/03/17 03:48 06/03/17 03:48 06/03/17 03:48 06/03/17 03:48 Oxygen Flow Rate (L/min) 11 Oxygen Delivery Method Venturi Mask Weight: 155.5 kg Body Mass Index (BMI) 46.5 Intake and Output for Last 24 Hours 06/01/17 06/02/17 06/03/17 23:59 23:59 23:59 Intake Total 1413 / 1413 1545 / 1545 Output Total 3450 / 3450 4200 / 4200 650 / 650 Balance -2037 / -2037 -2655 / -2655 -650 / -650 Microbiology Past 72 Hours 05/31/17 13:18 Respiratory Panel (PCR) - Final Mucosa - Nasopharyngeal Laboratory Tests Past 24 Hrs 06/03/17 06/03/17 06/03/17 04:00 06:02 06:02 WBC 10.6 RBC 3.10 L Hgb 8.2 L Hct 30.3 L MCV 97.7 MCH 26.5 L MCHC 27.1 L RDW 17.1 H RDW Differential 57.1 H Plt Count 428 MPV 9.5 PT INR APTT Sodium 138 Potassium 3.3 L Chloride 86 L Carbon Dioxide > 45.0 H* Anion Gap TNP BUN 24 H Creatinine 1.01 Estim Creat Clear Calc 43.49 Est GFR (MDRD) Af Amer 70 Est GFR (MDRD) Non-Af 58 L BUN/Creatinine Ratio 23.8 H Glucose 137 H Calcium 8.8 Magnesium 1.5 L Urine Color Straw Urine Clarity Sl. Cloudy Urine pH 6.0 Ur Specific [place] 1.010 Urine Protein 15 H Urine Glucose (UA) Normal Urine Ketones Negative Urine Occult Blood 250 H Urine Nitrite Negative Urine Bilirubin Negative Urine Urobilinogen Normal Ur Leukocyte Esterase 500 H Urine RBC Pending Urine WBC Pending Ur Squamous Epith Cells Pending Urine Bacteria Pending Urine Mucus Pending 06/03/17 06:02 WBC RBC Hgb Hct MCV MCH MCHC RDW RDW Differential Plt Count MPV PT 15.2 H INR 1.2 APTT 35.4 Sodium Potassium Chloride Carbon Dioxide Anion Gap BUN Creatinine Estim Creat Clear Calc Est GFR (MDRD) Af Amer Est GFR (MDRD) Non-Af BUN/Creatinine Ratio Glucose Calcium Magnesium Urine Color Urine Clarity Urine pH Ur Specific [place] Urine Protein Urine Glucose (UA) Urine Ketones Urine Occult Blood Urine Nitrite Urine Bilirubin Urine Urobilinogen Ur Leukocyte Esterase Urine RBC Urine WBC Ur Squamous Epith Cells Urine Bacteria Urine Mucus POC Glucose 06/03/17 06/02/17 06/02/17 06:46 22:14 16:56 POC Glucose 159 H 233 H 150 H 06/02/17 06/02/17 11:22 06:52 POC Glucose 170 H 151 H Medical Necessity - Tobacco Use Smoking Status: Former smoker Tobacco Use: Non-smoker Assessment/Plan Active and Suspected Problems (Last Updated 05/30/17 @ 16:02 by David Montana MD) Acute on chronic respiratory failure with hypoxia and hypercapnia (Acute) Acute on chronic diastolic (congestive) heart failure (Acute) RECOMMENDATIONS: 1. Continue Whiteside to document accurate I's and O's, maintain fluid restriction 2. Continue Bumex drip 3. Wean supplemental oxygen. The patient needs to be maintained 88-92%, to prevent paradoxical CO2 retention. 4. Encourage BiPAP therapy as soon as possible 5. Aggressive electrolyte repletion 6. Tentative plans for repeat cardiac catheterization (left and right) once the patient is able to lay flat 7. Consider use of NAC therapy 8. Continue aerosol regimen as ordered 9. Encourage incentive spirometer use and mobilize patient as tolerated IMPRESSIONS: 1. Acute on chronic hypoxemic and hypercarbic respiratory failure Patient appears to be responding to diuretic therapy. Patient does have an early element of contraction alkalosis. Patient should be using BiPAP as much as possible with sleep to limit CO2 retention. Continue with current therapy. Potassium has been repleted. Await results of heart catheterization. 2. Aortic stenosis/diastolic heart failure with exacerbation/pulmonary hypertension/coronary artery disease Continue current medical management per cardiology recommendations. Continue diuresis as tolerated. She will be at increased risk for contrast-induced nephropathy given need for active diuresis and heart catheterization. This note was generated with [employer] software. It may contain incorrect words, spelling, and punctuation that were not noted in checking the note before signing. Code Visit Inpatient E&M: 16731 Subs Hosp L2
[2017-06-03 07:05] LABS: Hyaline Cast 0-5 SEEN /lpf (0-5); Red Blood Cells-Urine 10-25 SEEN /hpf (0-5); White Blood Cells 5-10 SEEN /hpf (0-5)
--- NOTE | 2017-06-03 07:17 | PN.CARD_ITS ---
Subjectve: Patient was seen and evaluated. And appears to be breathing better but still not quite optimal Objective: Vital Signs Temp Pulse Resp BP Pulse Ox 97 F L 68 16 110/50 L 96 06/03/17 03:48 06/03/17 03:48 06/03/17 03:48 06/03/17 03:48 06/03/17 03:48 Oxygen Flow Rate (L/min) 11 Oxygen Delivery Method Venturi Mask Weight: 256 lb 6.362 oz Body Mass Index (BMI) 46.5 Intake and Output for Last 24 Hours 06/01/17 06/02/17 06/03/17 23:59 23:59 23:59 Intake Total 1413 / 1413 1545 / 1545 Output Total 3450 / 3450 4200 / 4200 650 / 650 Balance -2037 / -2037 -2655 / -2655 -650 / -650 General: Awake, Alert, Oriented x 3, Obese HEENT: PERRL, EOMI, Sclera Non Icteric Neck: Supple, Good ROM, No Lymph Node Enlargement Lungs: Rales - Param Bases Cardiovascular: Regular Rhythm, Normal S1, Normal S2, No Rubs, No Gallops Murmur Murmur: Grade 3/6, Early Systolic, Crescendo-Decrescendo, LLSB Vascular: No Carotid Bruits, Normal Femoral Pulses, Normal Radial Pulses, Normal Dorsalis Pedal Pulse, Normal Posterior Tibial Pulses Abdomen: Bowel Sounds Present, Soft, Non Tender, No HSM, No Organomegaly Extremities: No Cyanosis, No Clubbing, Bilateral Edema +1 Neurological: No Focal Motor or Sensory Deficit 06/03/17 04:00: Urine Color Straw, Urine Clarity Sl. Cloudy, Urine pH 6.0, Ur Specific [place] 1.010, Urine Protein 15 H, Urine Glucose (UA) Normal, Urine Ketones Negative, Urine Occult Blood 250 H, Urine Nitrite Negative, Urine Bilirubin Negative, Urine Urobilinogen Normal, Ur Leukocyte Esterase 500 H, Urine RBC 10-25 SEEN, Urine WBC 5-10 SEEN 06/03/17 06:02: WBC 10.6, RBC 3.10 L, Hgb 8.2 L, Hct 30.3 L, MCV 97.7, MCH 26.5 L, MCHC 27.1 L, RDW 17.1 H, RDW Differential 57.1 H, Plt Count 428, MPV 9.5 06/03/17 06:02: Sodium 138, Potassium 3.3 L, Chloride 86 L, Carbon Dioxide > 45.0 H*, Anion Gap TNP, BUN 24 H, Creatinine 1.01, Est GFR (MDRD) Af Amer 70, Est GFR (MDRD) Non-Af 58 L, BUN/Creatinine Ratio 23.8 H, Glucose 137 H, Calcium 8.8, Magnesium 1.5 L 06/03/17 06:02: PT 15.2 H, INR 1.2, APTT 35.4 Medical Necessity - Tobacco Use Smoking Status: Former smoker Tobacco Use: Non-smoker Assessment/Plan 1. Shortness of breath. The etiology of the above is likely multifactorial. She does have aortic stenosis but I do not think that it is severe based on the mean gradient. She does have preserved left ventricular systolic function. She is also noted to be markedly anemic and also has obstructive lung disease. In addition her natruretic peptide level is only approximately 180. I will therefore recommend that if possible she be transfused to a hemoglobin of at least 10. Even though the recommendations that patient such as this do not need to be transfused I do feel that in the context of aortic stenosis obstructive lung disease and obesity it may be helpful for her to have a better oxygen carrying capacity. She will undergo a left and right heart catheterization later on during the week to further ascertain the reason and cause for her shortness of breath. In the meantime she will continue with her aggressive diuresis utilizing the intravenous bumetanide that she was put on over the weekend. 2. Valvular heart disease He does have evidence of moderate aortic stenosis at best. A repeat echocardiogram demonstrates a mean gradient which is approaching 40 mmHg but is not quite at 40 mmHg which is the cutoff severe aortic stenosis. She will have this evaluated again with the heart catheterization. 3. Hypertension She does have a history of essential hypertension and my recommendation would be to continue her current medications maintaining her blood pressure around 100 systolic. 4. Severe anemia She does have severe anemia likely secondary to AV malformations. This may be also related to her aortic stenosis. After she is appropriately tuned up she may need to consider going on chronic iron therapy to maintain her hemoglobin. 5. The artery disease Her cardiac catheterization films were reviewed and were discussed as above. There is a question as to whether she has an ostial left main. This once again will be reassessed at her catheterization. Overall I suspect that her shortness of breath is multifactorial secondary to valvular heart disease, anemia, hypertension, obesity, and coronary artery disease. Thank you for allowing me to participate in the care of your patient. Please don't hesitate to call if any issues arise
[2017-06-03] MEDS: Budesonide Respules 0.5 MG/2 ML AMPUL.NEB. INHALATION (08:10)
[2017-06-03 08:15] LABS: Haptoglobin 277 mg/dL (34-200)
[2017-06-03] MEDS: Ferrous Sulfate 325 MG Tablet PO ×2 (08:42→17:04)
[2017-06-03] MEDS: Escitalopram Oxalate 10 MG Tablet PO (08:44)
[2017-06-03] MEDS: Pantoprazole Sodium 20 MG Tablet PO (08:45)
[2017-06-03] MEDS: Metoprolol Tartrate 50 MG Tablet PO ×2 (08:45→21:53)
[2017-06-03] MEDS: Acetaminophen 325 MG Tablet 650 MG PO ×2 (08:49→21:52)
--- NOTE | 2017-06-03 09:47 | CASEMGMT ---
This YASMINE ARREAGA received call from Jesus at [facility] and she states that pt is already established with them and that pt is currently on NIV trilogy at home, although she is not always compliant per Jesus. Pt does follow with Dr. Dixon. Ander UNDERWOOD CM
--- NOTE | 2017-06-03 10:27 | CASEMGMT ---
RN CM told SW that patient would like to go to [facility] at d/c. SW faxed referral to [facility] and called leaving a message. Chey AGUIRRE MSW
[2017-06-03 11:30] LABS: Bedside Glucose 213 mg/dL (70-110)
--- NOTE | 2017-06-03 11:49 | CPS ---
Patient on Venturi mask to maintain O2 sats, PEP therapy not done.
--- NOTE | 2017-06-03 13:02 | PCM.PROGNOTE ---
Patient Problems: Active and Suspected Problems (Last Updated 05/30/17 @ 16:02 by David Montana MD) Acute on chronic respiratory failure with hypoxia and hypercapnia (Acute) Acute on chronic diastolic (congestive) heart failure (Acute) Subjective: Patient seen and examined. No acute events overnight. Complains of bilateral calf aching. Calves are tender to palpation. Shortness of breath improved. She states she does desat when she takes off the Ventimask for meals. Denies other complaints. She was accepted at [facility] and is willing to be discharged to SNF when stable. - Physical Exam General: Alert, Oriented x3, Cooperative, No apparent distress HEENT: Atraumatic, PERRLA, EOMI, Normocephalic Neck: Supple, No JVD, Negative Carotid Bruits Lungs: Clear to auscultation, Diminished, Wheezes, - - Rales BL bases Cardiovascular: Regular rate, Regular Rhythm, Normal S1, Normal S2, Murmur Abdomen: Bowel Sounds Present, Soft, Non Tender, Non-Distended, Obese Extremities: No clubbing, No cyanosis, Capillary Refill Less than 3 Seconds, Edema - BLLE, Tenderness - BL calf Skin: No rashes, No breakdown Musculoskeletal: No Tenderness to Palpation of Joints or Extremities Neurological: Cranial nerves II-XII grossly intact Psych/Mental Status: Normal Affect, Appropriate Vital Signs Temp Pulse Resp BP Pulse Ox 97.9 F 95 18 118/51 L 91 06/03/17 09:48 06/03/17 11:05 06/03/17 10:40 06/03/17 09:48 06/03/17 10:40 Oxygen Flow Rate (L/min) 12 Oxygen Delivery Method Venturi Mask Weight: 116.3 kg Body Mass Index (BMI) 46.5 Intake and Output for Last 24 Hours 06/01/17 06/02/17 06/03/17 23:59 23:59 23:59 Intake Total 1413 / 1413 1545 / 1545 360 / 360 Output Total 3450 / 3450 4200 / 4200 1650 / 1650 Balance -2037 / -2037 -2655 / -2655 -1290 / -1290 Microbiology Past 72 Hours 05/31/17 13:18 Respiratory Panel (PCR) - Final Mucosa - Nasopharyngeal Laboratory Tests Past 24 Hrs 06/01/17 06/03/17 06/03/17 06:58 04:00 06:02 WBC 10.6 RBC 3.10 L Hgb 8.2 L Hct 30.3 L MCV 97.7 MCH 26.5 L MCHC 27.1 L RDW 17.1 H RDW Differential 57.1 H Plt Count 428 MPV 9.5 Haptoglobin 277 H PT INR APTT Sodium Potassium Chloride Carbon Dioxide Anion Gap BUN Creatinine Estim Creat Clear Calc Est GFR (MDRD) Af Amer Est GFR (MDRD) Non-Af BUN/Creatinine Ratio Glucose Calcium Magnesium Urine Color Straw Urine Clarity Sl. Cloudy Urine pH 6.0 Ur Specific [place] 1.010 Urine Protein 15 H Urine Glucose (UA) Normal Urine Ketones Negative Urine Occult Blood 250 H Urine Nitrite Negative Urine Bilirubin Negative Urine Urobilinogen Normal Ur Leukocyte Esterase 500 H Urine RBC 10-25 SEEN Urine WBC 5-10 SEEN Ur Squamous Epith Cells 0 SEEN Urine Bacteria 0 SEEN Hyaline Casts 0-5 SEEN Urine Mucus 0 SEEN 06/03/17 06/03/17 06:02 06:02 WBC RBC Hgb Hct MCV MCH MCHC RDW RDW Differential Plt Count MPV Haptoglobin PT 15.2 H INR 1.2 APTT 35.4 Sodium 138 Potassium 3.3 L Chloride 86 L Carbon Dioxide > 45.0 H* Anion Gap TNP BUN 24 H Creatinine 1.01 Estim Creat Clear Calc 43.49 Est GFR (MDRD) Af Amer 70 Est GFR (MDRD) Non-Af 58 L BUN/Creatinine Ratio 23.8 H Glucose 137 H Calcium 8.8 Magnesium 1.5 L Urine Color Urine Clarity Urine pH Ur Specific [place] Urine Protein Urine Glucose (UA) Urine Ketones Urine Occult Blood Urine Nitrite Urine Bilirubin Urine Urobilinogen Ur Leukocyte Esterase Urine RBC Urine WBC Ur Squamous Epith Cells Urine Bacteria Hyaline Casts Urine Mucus POC Glucose 06/03/17 06/03/17 06/02/17 11:23 06:46 22:14 POC Glucose 213 H 159 H 233 H 06/02/17 16:56 POC Glucose 150 H Medical Necessity - Tobacco Use Smoking Status: Former smoker Tobacco Use: Non-smoker Assessment/Plan Active and Suspected Problems (Last Updated 05/30/17 @ 16:02 by David Montana MD) Acute on chronic respiratory failure with hypoxia and hypercapnia (Acute) Acute on chronic diastolic (congestive) heart failure (Acute) Patient is a 66-year-old female admitted 05/30/2017 due to shortness of breath. She has a past medical history of aortic stenosis, chronic anemia, carotid artery stenosis, chronic hypoxemic respiratory failure, pulmonary fibrosis, stage III COPD, type 2 diabetes mellitus, pulmonary hypertension, hypertension, hyperlipidemia, history of GI AVM. 1. Acute on chronic hypoxic and hypercapnic respiratory failure-on 5 L nasal cannula continuously at baseline. Chest x-ray on admission consistent with pulmonary vascular congestion. Continue supplement oxygen to maintain O2 at or above 90%. 2. Acute on chronic diastolic CHF-chest x-ray as noted above. Troponin negative. Cardiology consulted. Continue bumetanide drip. 1500 fluid restriction. Strict I&O. Echocardiogram shows estimated ejection fraction 60%, moderate tricuspid valve insufficiency, pulmonary artery systolic pressure is 60 mmHg, moderately severe aortic stenosis. Right heart cath this admission when pulmonary status is stable. 3. Severe chronic COPD/pulmonary hypertension/pulmonary fibrosis-albuterol and DuoNeb aerosols. Continue supplemental oxygen to maintain O2 at or above 90%. No evidence of acute COPD exacerbation. 4. Acute on chronic normocytic anemia-baseline hemoglobin approximately 8. Patient has received 2 units packed red blood cells this admission. Monitor CBC. Current hemoglobin 8.2. 5. Moderate to severe aortic stenosis-has been evaluated by [facility] cardiology in the past for TAVR. The overall consensus is currently that she is not a candidate for aortic valve replacement at this time. She will continue outpatient follow-up with cardiology with serial echocardiograms. 6. Type 2 diabetes mellitus-oral regimen on hold. Accu-Cheks before meals at bedtime with sliding scale insulin. 7. Hypertension-stable, continue home regimen. 8. Hyperlipidemia-continue statin. 9. History of GI AVM DVT prophylaxis-SCDs. No pharmacologic prophylaxis given anemia. This patient was seen by SHOLA Garcia under the supervision of Dr. Mckeon.
--- NOTE | 2017-06-03 13:10 | VDLE_ITS ---
Reason For Study: LEG PAIN RIGHT LEFT GSV is normal. GSV is normal. CFV is compressible, spontaneous, phasic, CFV is compressible, spontaneous, phasic, competent and demonstrates normal competent, and demonstrates normal augmentation. augmentation. FV is compressible, spontaneous, phasic, FV is compressible, spontaneous, phasic, competent and demonstrates normal competent and demonstrates normal augmentation. augmentation. POP V is compressible, spontaneous, phasic, POP V is compressible, spontaneous, phasic, competent and demonstrates normal competent and demonstrates normal augmentation. augmentation. T/P Trunk is compressible. T/P Trunk is compressible. PTV is compressible. PTV is compressible. RT PerV is compressible. LT PerV is compressible. Procedure Exam performed portable in patient room. A preliminary report was called and/or faxed to [facility]. Interpretation Summary Deep veins of the lower extremities are bilaterally patent and compressible segmentally. There is no evidence of deep vein thrombosis on either side. Valvular competence appears intact within the proximal deep venous systems bilaterally. The greater saphenous veins appear bilaterally patent and compressible segmentally. Ordering Physician: SHOLA Garcia Referring Physician: Rajesh Dixon Performed By: Meagan Jimenez RVT
--- NOTE | 2017-06-03 14:04 | CASEMGMT ---
Received a call from Rema at [facility] and they can accept patient at d/c. SW let patient know this information. ANTONIO made sure to let Rema know that patient has a Trilogy non invasive vent. Patient said she had it there last time and there were no problems. Plan: [facility] under skilled level of care when ready. Chey AGUIRRE MSW
[2017-06-03 17:10] LABS: Bedside Glucose 176 mg/dL (70-110)
[2017-06-03] MEDS: Atorvastatin Calcium 10 MG Tablet PO (21:52)
[2017-06-03] MEDS: Fluticasone 0.05% 1 SPRAY NASAL.SRY NASAL (21:53)
[2017-06-03 22:00] LABS: Bedside Glucose 202 mg/dL (70-110)
[2017-06-04] VITALS (27 sets, daily range): BP systolic 106–136; BP diastolic 48–69; PULSE 70–96; RESP 12–22; TEMP 36.1–36.8; O2SAT 91–96
--- NOTE | 2017-06-04 05:55 | EKG12_ITS ---
Test Reason : AM EKG Blood Pressure : / mmHG Vent. Rate : 073 BPM Atrial Rate : 073 BPM P-R Int : 138 ms QRS Dur : 152 ms QT Int : 474 ms P-R-T Axes : 074 099 011 degrees QTc Int : 522 ms Normal sinus rhythm Right bundle branch block Abnormal ECG When compared with ECG of 03-JUN-2017 04:53, MANUAL COMPARISON REQUIRED, DATA IS UNCONFIRMED Confirmed by EJ PETERSON ([id number]), editor at large [employer]A [employer] ([id number] on 06/06/2017 3:11:37 PM Referred By: DR GROVER Confirmed By:EJ PETERSON
[2017-06-04 06:32] LABS: Hematocrit 30.9 % (37-47); Hemoglobin 8.3 g/dl (12.0-15.0); Mean Corp Hgb Conc 26.9 g/gl (32-36); Mean Corpuscular Hgb 26.2 pg (27.0-32.0); Mean Corpuscular Volume 97.5 fL (81-99); Mean Platelet Vol. 8.7 fl (6.2-12.0); Platelet Count 430 K/mm3 (150-450); RBC Distribution Width CV 16.9 % (11.6-14.6); Red Blood Count 3.17 M/mm3 (4.2-5.4); White Blood Count 9.6 K/mm3 (4.4-11.0)
[2017-06-04 06:34] LABS: Scan Indicated on CBC? Y/N NO
[2017-06-04 06:36] LABS: International Normalized Ratio 1.2; Partial Thromboplast Time 34.5 Seconds (24.1-36.2); Prothrombin Time (Protime)PT. 14.9 SECONDS (11.7-14.9)
[2017-06-04 06:50] LABS: Bedside Glucose 157 mg/dL (70-110)
[2017-06-04] MEDS: Budesonide Respules 0.5 MG/2 ML AMPUL.NEB. INHALATION ×2 (06:59→19:48)
[2017-06-04] MEDS: Ipratropium/Albuterol Sulfate 3 ML AMPUL.NEB INHALATION ×5 (06:59→23:09)
[2017-06-04 07:09] LABS: BUN 31 mg/dL (7-18); Creatinine, Serum 1.08 mg/dL (0.55-1.02); Estimated Creatinine Clearance 40.67 ml/min; Glucose 147 mg/dL (74-106)
[2017-06-04 07:10] LABS: BUN/Creat Ratio 28.7 RATIO (10-20); Calcium,Total 8.6 mg/dL (8.5-10.1); Carbon Dioxide > 45.0 mmol/L (21.0-32.0); Chloride 86 mmol/L (98-107); EST Glomerular Filtration Rate 54 mL/min (>60); Est Glom Filt Rate - Afr Amer 65 mL/min (>60); Potassium 3.3 mmol/L (3.5-5.1); Sodium Level 139 mmol/L (136-145)
--- NOTE | 2017-06-04 07:50 | PN.CARD_ITS ---
Subjectve: Patient seen and evaluated. Still noted to be short of breath requiring BiPAP. Still on intravenous bumetanide and experiencing significant diuresis Objective: Vital Signs Temp Pulse Resp BP Pulse Ox 97.5 F L 72 21 H 119/57 L 95 06/04/17 03:35 06/04/17 07:40 06/04/17 07:20 06/04/17 03:35 06/04/17 07:40 Oxygen Flow Rate (L/min) 12 Oxygen Delivery Method Venturi Mask Weight: 255 lb 1.197 oz Body Mass Index (BMI) 46.5 Intake and Output for Last 24 Hours 06/02/17 06/03/17 06/04/17 23:59 23:59 23:59 Intake Total 1545 / 1545 840 / 840 Output Total 4200 / 4200 2950 / 2950 950 / 950 Balance -2655 / -2655 -2110 / -2110 -950 / -950 General: Awake, Alert, Oriented x 3, Obese HEENT: PERRL, EOMI, Sclera Non Icteric Neck: Supple, Good ROM, No Lymph Node Enlargement Lungs: Diminished Param Bases Cardiovascular: Regular Rhythm, Normal S1, Normal S2, No Murmurs, No Rubs, No Gallops Vascular: No Carotid Bruits, Normal Femoral Pulses, Normal Radial Pulses, Normal Dorsalis Pedal Pulse, Normal Posterior Tibial Pulses Abdomen: Bowel Sounds Present, Soft, Non Tender, No HSM, No Organomegaly Extremities: No Cyanosis, No Clubbing, No edema, Bilateral Edema +1 Neurological: No Focal Motor or Sensory Deficit 06/04/17 06:15: WBC 9.6, RBC 3.17 L, Hgb 8.3 L, Hct 30.9 L, MCV 97.5, MCH 26.2 L , MCHC 26.9 L, RDW 16.9 H, RDW Differential 57.0 H, Plt Count 430, MPV 8.7 06/04/17 06:15: Sodium 139, Potassium 3.3 L, Chloride 86 L, Carbon Dioxide > 45.0 H*, Anion Gap TNP, BUN 31 H, Creatinine 1.08 H, Est GFR (MDRD) Af Amer 65, Est GFR (MDRD) Non-Af 54 L, BUN/Creatinine Ratio 28.7 H, Glucose 147 H, Calcium 8.6 06/04/17 06:15: PT 14.9, INR 1.2, APTT 34.5 Medical Necessity - Tobacco Use Smoking Status: Former smoker Tobacco Use: Non-smoker Assessment/Plan 1. Shortness of breath. The etiology of the above is likely multifactorial. She does have aortic stenosis but I do not think that it is severe based on the mean gradient. She does have preserved left ventricular systolic function. She is also noted to be markedly anemic and also has obstructive lung disease. In addition her natruretic peptide level is only approximately 180. I will therefore recommend that if possible she be transfused to a hemoglobin of at least 10. Even though the recommendations that patient such as this do not need to be transfused I do feel that in the context of aortic stenosis obstructive lung disease and obesity it may be helpful for her to have a better oxygen carrying capacity. She will undergo a left and right heart catheterization later on during the week to further ascertain the reason and cause for her shortness of breath. In the meantime she will continue with her aggressive diuresis utilizing the intravenous bumetanide that she was put on over the weekend. 2. Valvular heart disease He does have evidence of moderate aortic stenosis at best. A repeat echocardiogram demonstrates a mean gradient which is approaching 40 mmHg but is not quite at 40 mmHg which is the cutoff severe aortic stenosis. She will have this evaluated again with the heart catheterization. 3. Hypertension She does have a history of essential hypertension and my recommendation would be to continue her current medications maintaining her blood pressure around 100 systolic. 4. Severe anemia She does have severe anemia likely secondary to AV malformations. This may be also related to her aortic stenosis. After she is appropriately tuned up she may need to consider going on chronic iron therapy to maintain her hemoglobin. 5. The artery disease Her cardiac catheterization films were reviewed and were discussed as above. There is a question as to whether she has an ostial left main. This once again will be reassessed at her catheterization. Overall I suspect that her shortness of breath is multifactorial secondary to valvular heart disease, anemia, hypertension, obesity, and coronary artery disease. At this time I think that the patient still needs another day or so before a cardiac catheterization is undertaken. Thank you for allowing me to participate in the care of your patient. Please don't hesitate to call if any issues arise
--- NOTE | 2017-06-04 08:19 | PCM.PROGNOTE ---
Patient Problems: Active and Suspected Problems (Last Updated 05/30/17 @ 16:02 by David Montana MD) Acute on chronic respiratory failure with hypoxia and hypercapnia (Acute) Acute on chronic diastolic (congestive) heart failure (Acute) Subjective: Patient did okay overnight. Patient now tolerating BiPAP therapy and reports subjective improvement in dyspnea. Patient has been diuresing well, but admits to dyspnea with minimal exertion. Nursing reports oxygenation is more stable on BiPAP than Ventimask. Patient is denying any abdominal pain, chest pain, nausea or vomiting. - Physical Exam General: Alert, Oriented x3, Cooperative, No apparent distress, - - Morbidly obese. Speaking in full sentences. HEENT: Atraumatic, PERRLA, EOMI, Normocephalic, - - No scleral icterus or injection noted. No breakdown at interface site. Oral: No Gingival or Mucosal Lesions/ Ulcerations, Dry Mucosa Neck: Supple, No Nodes, Trachea Midline, JVD, Right Lungs: No rhonchi, Diminished, Rales, Wheezes - Improved from previous, - - Symmetric expansion. No dullness to percussion. Cardiovascular: Regular rate, Regular Rhythm, Normal S1, Normal S2, Murmur - Unchanged from previous, No rub noted, No Gallop Abdomen: Bowel Sounds Present, Soft, Non Tender, Non-Distended, Obese Extremities: No clubbing, No cyanosis, Edema, Tenderness - Palpation of lower extremities Skin: - - Grossly unchanged compared to previous Musculoskeletal: No Muscle Wasting Lymphatic: No Cervical, Supraclavicular, or Inguinal Adenopathy Neurological: Cranial nerves II-XII grossly intact, Neuro grossly intact Psych/Mental Status: Alert and oriented to time, place, person, mood and affect Vital Signs Temp Pulse Resp BP Pulse Ox 36.4 C L 72 21 H 119/57 L 95 06/04/17 03:35 06/04/17 07:40 06/04/17 07:20 06/04/17 03:35 06/04/17 07:40 Oxygen Flow Rate (L/min) 12 Oxygen Delivery Method Venturi Mask Weight: 115.7 kg Body Mass Index (BMI) 46.5 Intake and Output for Last 24 Hours 06/02/17 06/03/17 06/04/17 23:59 23:59 23:59 Intake Total 1545 / 1545 840 / 840 Output Total 4200 / 4200 2950 / 2950 950 / 950 Balance -2655 / -2655 -2110 / -2110 -950 / -950 Microbiology Past 72 Hours 05/31/17 13:18 Respiratory Panel (PCR) - Final Mucosa - Nasopharyngeal Laboratory Tests Past 24 Hrs 06/04/17 06/04/17 06/04/17 06:15 06:15 06:15 WBC 9.6 RBC 3.17 L Hgb 8.3 L Hct 30.9 L MCV 97.5 MCH 26.2 L MCHC 26.9 L RDW 16.9 H RDW Differential 57.0 H Plt Count 430 MPV 8.7 PT 14.9 INR 1.2 APTT 34.5 Sodium 139 Potassium 3.3 L Chloride 86 L Carbon Dioxide > 45.0 H* Anion Gap TNP BUN 31 H Creatinine 1.08 H Estim Creat Clear Calc 40.67 Est GFR (MDRD) Af Amer 65 Est GFR (MDRD) Non-Af 54 L BUN/Creatinine Ratio 28.7 H Glucose 147 H Calcium 8.6 POC Glucose 06/04/17 06/03/17 06/03/17 06:43 21:51 17:02 POC Glucose 157 H 202 H 176 H 06/03/17 11:23 POC Glucose 213 H Medical Necessity - Tobacco Use Smoking Status: Former smoker Tobacco Use: Non-smoker Assessment/Plan Active and Suspected Problems (Last Updated 05/30/17 @ 16:02 by David Montana MD) Acute on chronic respiratory failure with hypoxia and hypercapnia (Acute) Acute on chronic diastolic (congestive) heart failure (Acute) RECOMMENDATIONS: 1. Continue Whiteside to document accurate I's and O's, maintain fluid restriction 2. Continue Bumex drip 3. Wean supplemental oxygen. The patient needs to be maintained 88-92%, to prevent paradoxical CO2 retention. 4. BiPAP breaks as tolerated, continue with all sleep 5. Aggressive electrolyte repletion 6. Tentative plans for repeat cardiac catheterization (left and right) once the patient is able to lay flat 7. Likely wait another 24-48 hours prior to heart catheterization 8. Continue aerosol regimen as ordered 9. Encourage incentive spirometer use and mobilize patient as tolerated IMPRESSIONS: 1. Acute on chronic hypoxemic and hypercarbic respiratory failure Patient appears to be responding to diuretic therapy. Patient does have an early element of contraction alkalosis. Patient is now tolerating BiPAP therapy, which is an improvement. This should be continued with sleep, but breaks during the day would be appropriate. Continue with current therapy. Potassium has been repleted. Await results of heart catheterization. 2. Aortic stenosis/diastolic heart failure with exacerbation/pulmonary hypertension/coronary artery disease Continue current medical management per cardiology recommendations. Continue diuresis as tolerated. She will be at increased risk for contrast-induced nephropathy given need for active diuresis and heart catheterization. This note was generated with [employer] dictation software. It may contain incorrect words, spelling, and punctuation that were not noted in checking the note before signing. Code Visit Inpatient E&M: 71653 Subs Hosp L2
[2017-06-04] MEDS: Ferrous Sulfate 325 MG Tablet PO ×2 (09:14→16:15)
[2017-06-04] MEDS: Escitalopram Oxalate 10 MG Tablet PO (09:15)
[2017-06-04] MEDS: Metoprolol Tartrate 50 MG Tablet PO ×2 (09:15→21:23)
[2017-06-04] MEDS: Pantoprazole Sodium 20 MG Tablet PO (09:17)
--- NOTE | 2017-06-04 11:23 | PCM.PROGNOTE ---
Patient Problems: Active and Suspected Problems (Last Updated 05/30/17 @ 16:02 by David Montana MD) Acute on chronic respiratory failure with hypoxia and hypercapnia (Acute) Acute on chronic diastolic (congestive) heart failure (Acute) Subjective: Patient seen and examined. States she is physically in emotionally drained. Continues to have bilateral calf pain, acute DVT was ruled out. States she has wax in her right ear which was diagnosed prior to admission and was being treated. States her right ear is continuing to feel stuffy and crackly. Will add drops for earwax removal. She states she feels shortness of breath is slightly improved although continues to desat without Ventimask. - Physical Exam General: Alert, Oriented x3, Cooperative, No apparent distress HEENT: Atraumatic, PERRLA, EOMI, Normocephalic Neck: Supple, No JVD, Negative Carotid Bruits Lungs: Clear to auscultation, Diminished Cardiovascular: Regular rate, Regular Rhythm, Normal S1, Normal S2, No murmurs Abdomen: Bowel Sounds Present, Soft, Non Tender, Non-Distended, Obese Extremities: No clubbing, No cyanosis, Edema - +1 BLLE Skin: No rashes, No breakdown Musculoskeletal: No Tenderness to Palpation of Joints or Extremities Neurological: Cranial nerves II-XII grossly intact, Neuro grossly intact Psych/Mental Status: Appropriate Vital Signs Temp Pulse Resp BP Pulse Ox 98.2 F 77 20 H 111/59 L 94 06/04/17 09:22 06/04/17 10:47 06/04/17 10:47 06/04/17 09:22 06/04/17 09:22 Oxygen Flow Rate (L/min) 6 Oxygen Delivery Method Nasal Cannula Weight: 115.7 kg Body Mass Index (BMI) 46.5 Intake and Output for Last 24 Hours 06/02/17 06/03/17 06/04/17 23:59 23:59 23:59 Intake Total 1545 / 1545 840 / 840 Output Total 4200 / 4200 2950 / 2950 950 / 950 Balance -2655 / -2655 -2110 / -2110 -950 / -950 Microbiology Past 72 Hours 05/31/17 13:18 Respiratory Panel (PCR) - Final Mucosa - Nasopharyngeal Laboratory Tests Past 24 Hrs 06/04/17 06/04/17 06/04/17 06:15 06:15 06:15 WBC 9.6 RBC 3.17 L Hgb 8.3 L Hct 30.9 L MCV 97.5 MCH 26.2 L MCHC 26.9 L RDW 16.9 H RDW Differential 57.0 H Plt Count 430 MPV 8.7 PT 14.9 INR 1.2 APTT 34.5 Sodium 139 Potassium 3.3 L Chloride 86 L Carbon Dioxide > 45.0 H* Anion Gap TNP BUN 31 H Creatinine 1.08 H Estim Creat Clear Calc 40.67 Est GFR (MDRD) Af Amer 65 Est GFR (MDRD) Non-Af 54 L BUN/Creatinine Ratio 28.7 H Glucose 147 H Calcium 8.6 POC Glucose 06/04/17 06/03/17 06/03/17 06:43 21:51 17:02 POC Glucose 157 H 202 H 176 H 06/03/17 11:23 POC Glucose 213 H Medical Necessity - Tobacco Use Smoking Status: Former smoker Tobacco Use: Non-smoker Assessment/Plan Active and Suspected Problems (Last Updated 05/30/17 @ 16:02 by David Montana MD) Acute on chronic respiratory failure with hypoxia and hypercapnia (Acute) Acute on chronic diastolic (congestive) heart failure (Acute) Patient is a 66-year-old female admitted 05/30/2017 due to shortness of breath. She has a past medical history of aortic stenosis, chronic anemia, carotid artery stenosis, chronic hypoxemic respiratory failure, pulmonary fibrosis, stage III COPD, type 2 diabetes mellitus, pulmonary hypertension, hypertension, hyperlipidemia, history of GI AVM. 1. Acute on chronic hypoxic and hypercapnic respiratory failure-on 5 L nasal cannula continuously at baseline. Chest x-ray on admission consistent with pulmonary vascular congestion. Continue supplement oxygen to maintain O2 at or above 90%. 2. Acute on chronic diastolic CHF-chest x-ray as noted above. Troponin negative. Cardiology consulted. Continue bumetanide drip. Diuresing well. 1500 fluid restriction. Strict I&O. Echocardiogram shows estimated ejection fraction 60%, moderate tricuspid valve insufficiency, pulmonary artery systolic pressure is 60 mmHg, moderately severe aortic stenosis. Right heart cath this admission when pulmonary status is stable, hopefully in the next 24-48 hours. 3. Severe chronic COPD/pulmonary hypertension/pulmonary fibrosis-albuterol and DuoNeb aerosols. Continue supplemental oxygen to maintain O2 at or above 90%. No evidence of acute COPD exacerbation. 4. Acute on chronic normocytic anemia-baseline hemoglobin approximately 8. Patient has received 2 units packed red blood cells this admission. Continue iron supplementation. Monitor CBC. Current hemoglobin 8.3. Give an additional 2 units packed red blood cells today in preparation for catheterization. 5. Moderate to severe aortic stenosis-has been evaluated by [facility] cardiology in the past for TAVR. The overall consensus is currently that she is not a candidate for aortic valve replacement at this time. She will continue outpatient follow-up with cardiology with serial echocardiograms. 6. Type 2 diabetes mellitus-oral regimen on hold. Accu-Cheks before meals at bedtime with sliding scale insulin. 7. Hypertension-stable, continue home regimen. 8. Hyperlipidemia-continue statin. 9. History of GI AVM DVT prophylaxis-SCDs. No pharmacologic prophylaxis given anemia. This patient was seen by SHOLA Garcia under the supervision of Dr. Mckeon.
[2017-06-04] MEDS: Carbamide Peroxide 15 ML Bottle 4 DRP OTIC ×4 (12:13→21:24)
[2017-06-04 12:26] LABS: Bedside Glucose 195 mg/dL (70-110)
[2017-06-04] MEDS: oxyCODONE 5 MG Tablet PO (15:06)
[2017-06-04 16:40] LABS: Bedside Glucose 196 mg/dL (70-110)
[2017-06-04] MEDS: Bumetanide 1 MG/4 ML Vial IV (18:46)
[2017-06-04] MEDS: Gabapentin 100 MG Capsule 200 MG PO (21:23)
[2017-06-04] MEDS: Acetaminophen 325 MG Tablet 650 MG PO (21:29)
[2017-06-04] MEDS: Atorvastatin Calcium 10 MG Tablet PO (21:29)
[2017-06-04 21:30] LABS: Bedside Glucose 185 mg/dL (70-110)
[2017-06-05] VITALS (23 sets, daily range): BP systolic 104–122; BP diastolic 45–58; PULSE 63–91; RESP 12–20; TEMP 36.1–36.9; O2SAT 92–97
[2017-06-05] MEDS: Ipratropium/Albuterol Sulfate 3 ML AMPUL.NEB INHALATION ×5 (03:20→19:28)
--- NOTE | 2017-06-05 05:55 | EKG12_ITS ---
Test Reason : MORNING EKG Blood Pressure : / mmHG Vent. Rate : 068 BPM Atrial Rate : 068 BPM P-R Int : 140 ms QRS Dur : 144 ms QT Int : 476 ms P-R-T Axes : 072 095 022 degrees QTc Int : 506 ms Normal sinus rhythm Right bundle branch block Abnormal ECG When compared with ECG of 04-JUN-2017 05:50, MANUAL COMPARISON REQUIRED, DATA IS UNCONFIRMED Confirmed by ANJANA GAMBOA, CHOLO ([id number]), multimedia editor [employer]A [employer] ([id number] on 06/07/2017 3:05:37 PM Referred By: REILLY Confirmed By:CHOLO YEUNG MD
[2017-06-05 06:50] LABS: Hematocrit 36.4 % (37-47); Hemoglobin 10.1 g/dl (12.0-15.0); Mean Corp Hgb Conc 27.7 g/gl (32-36); Mean Corpuscular Hgb 26.7 pg (27.0-32.0); Mean Corpuscular Volume 96.3 fL (81-99); Mean Platelet Vol. 9.1 fl (6.2-12.0); Platelet Count 407 K/mm3 (150-450); RBC Distribution Width CV 17.5 % (11.6-14.6); RBC Distribution Width SD 58.3 fl (35.1-43.9); Red Blood Count 3.78 M/mm3 (4.2-5.4); White Blood Count 9.2 K/mm3 (4.4-11.0)
[2017-06-05 06:54] LABS: International Normalized Ratio 1.2; Prothrombin Time (Protime)PT. 14.7 SECONDS (11.7-14.9)
[2017-06-05 06:55] LABS: Partial Thromboplast Time 34.9 Seconds (24.1-36.2); Scan Indicated on CBC? Y/N NO
[2017-06-05 07:00] LABS: Bedside Glucose 171 mg/dL (70-110)
[2017-06-05 07:10] LABS: BUN 37 mg/dL (7-18); BUN/Creat Ratio 32.7 RATIO (10-20); Calcium,Total 9.1 mg/dL (8.5-10.1); Carbon Dioxide > 45.0 mmol/L (21.0-32.0); Chloride 89 mmol/L (98-107); Creatinine, Serum 1.13 mg/dL (0.55-1.02); EST Glomerular Filtration Rate 51 mL/min (>60); Est Glom Filt Rate - Afr Amer 61 mL/min (>60); Estimated Creatinine Clearance 38.87 ml/min; Glucose 163 mg/dL (74-106); Potassium 3.9 mmol/L (3.5-5.1); Sodium Level 140 mmol/L (136-145)
[2017-06-05] MEDS: Budesonide Respules 0.5 MG/2 ML AMPUL.NEB. INHALATION ×2 (07:17→19:28)
[2017-06-05] MEDS: Fluticasone 0.05% 1 SPRAY NASAL.SRY NASAL ×2 (08:21→21:42)
[2017-06-05] MEDS: Escitalopram Oxalate 10 MG Tablet PO (08:24)
[2017-06-05] MEDS: Pantoprazole Sodium 20 MG Tablet PO (08:24)
[2017-06-05] MEDS: Ferrous Sulfate 325 MG Tablet PO ×2 (08:24→17:31)
[2017-06-05] MEDS: Metoprolol Tartrate 50 MG Tablet PO ×2 (08:25→21:44)
--- NOTE | 2017-06-05 09:48 | PCM.PROGNOTE ---
Patient Problems: Active and Suspected Problems (Last Updated 05/30/17 @ 16:02 by David Montana MD) Acute on chronic respiratory failure with hypoxia and hypercapnia (Acute) Acute on chronic diastolic (congestive) heart failure (Acute) Subjective: Patient did well overnight. No acute issues were reported. Patient reports subjective improvement in dyspnea on exertion this morning. Patient did have her Whiteside removed and did have an episode of incontinence overnight, so fluid balance is inaccurate. Patient does report periodic coughing. Patient reports that she discussed with cardiology this morning. Tentative plan is for a heart catheterization tomorrow. - Physical Exam General: Alert, Oriented x3, Cooperative, No apparent distress, - - Speaking in full sentences. HEENT: Atraumatic, PERRLA, EOMI, Normocephalic, - - No scleral icterus or injection noted. Oral: Moist Mucosa, No Gingival or Mucosal Lesions/ Ulcerations Neck: Supple, No Nodes, Trachea Midline, JVD, Right Lungs: No rhonchi, No wheeze, Diminished, Rales - Bilateral, but improved from previous Cardiovascular: Regular rate, Regular Rhythm, Normal S1, Normal S2, Murmur - Unchanged from previous, No rub noted, No Gallop Abdomen: Bowel Sounds Present, Soft, Non Tender, Non-Distended, Obese Extremities: No cyanosis, Capillary Refill Less than 3 Seconds, Clubbing, Edema Skin: - - No significant change compared to previous Musculoskeletal: No Tenderness to Palpation of Joints or Extremities, No Muscle Wasting Lymphatic: No Cervical, Supraclavicular, or Inguinal Adenopathy Neurological: Cranial nerves II-XII grossly intact, Neuro grossly intact, Motor Exam 5/5 strength throughout Psych/Mental Status: Alert and oriented to time, place, person, mood and affect Vital Signs Temp Pulse Resp BP Pulse Ox 36.2 C L 77 18 113/57 L 97 06/05/17 06:42 06/05/17 08:25 06/05/17 07:17 06/05/17 06:42 06/05/17 07:17 Oxygen Flow Rate (L/min) 6 Oxygen Delivery Method Nasal Cannula Weight: 115.7 kg Body Mass Index (BMI) 46.5 Intake and Output for Last 24 Hours 06/03/17 06/04/17 06/05/17 23:59 23:59 23:59 Intake Total 840 / 840 2280 / 2280 120 / 120 Output Total 2950 / 2950 3150 / 3150 400 / 400 Balance -2110 / -2110 -870 / -870 -280 / -280 Laboratory Tests Past 24 Hrs 06/04/17 06/05/17 06/05/17 11:50 06:40 06:40 WBC 9.2 RBC 3.78 L Hgb 10.1 L Hct 36.4 L MCV 96.3 MCH 26.7 L MCHC 27.7 L RDW 17.5 H RDW Differential 58.3 H Plt Count 407 MPV 9.1 PT INR APTT Sodium 140 Potassium 3.9 Chloride 89 L Carbon Dioxide > 45.0 H* Anion Gap TNP BUN 37 H Creatinine 1.13 H Estim Creat Clear Calc 38.87 Est GFR (MDRD) Af Amer 61 Est GFR (MDRD) Non-Af 51 L BUN/Creatinine Ratio 32.7 H Glucose 163 H Calcium 9.1 Blood Type AB POSITIVE Antibody Screen NEGATIVE Crossmatch See Detail 06/05/17 06:40 WBC RBC Hgb Hct MCV MCH MCHC RDW RDW Differential Plt Count MPV PT 14.7 INR 1.2 APTT 34.9 Sodium Potassium Chloride Carbon Dioxide Anion Gap BUN Creatinine Estim Creat Clear Calc Est GFR (MDRD) Af Amer Est GFR (MDRD) Non-Af BUN/Creatinine Ratio Glucose Calcium Blood Type Antibody Screen Crossmatch POC Glucose 06/05/17 06/04/17 06/04/17 06:55 21:15 16:32 POC Glucose 171 H 185 H 196 H 06/04/17 12:10 POC Glucose 195 H Medical Necessity - Tobacco Use Smoking Status: Former smoker Tobacco Use: Non-smoker Assessment/Plan Active and Suspected Problems (Last Updated 05/30/17 @ 16:02 by David Montana MD) Acute on chronic respiratory failure with hypoxia and hypercapnia (Acute) Acute on chronic diastolic (congestive) heart failure (Acute) RECOMMENDATIONS: 1. BiPAP breaks as tolerated during the day 2. Continue Bumex drip 3. Wean supplemental oxygen. The patient needs to be maintained 88-92%, to prevent paradoxical CO2 retention. 4. Continue BiPAP with all sleep 5. Aggressive electrolyte repletion 6. Tentative plans for repeat cardiac catheterization (left and right) tomorrow 7. Continue aerosol regimen as ordered 8. Encourage incentive spirometer use and mobilize patient as tolerated IMPRESSIONS: 1. Acute on chronic hypoxemic and hypercarbic respiratory failure Patient appears to be responding to diuretic therapy. Patient does have an early element of contraction alkalosis. Patient is now tolerating BiPAP therapy breaks, which is an improvement. BiPAP should be continued with sleep, but breaks during the day would be appropriate. Continue with current therapy. Potassium has been repleted. Await results of heart catheterization. 2. Aortic stenosis/diastolic heart failure with exacerbation/pulmonary hypertension/coronary artery disease Continue current medical management per cardiology recommendations. Continue diuresis as tolerated. She will be at increased risk for contrast-induced nephropathy given need for active diuresis and heart catheterization. This note was generated with [employer] dictation software. It may contain incorrect words, spelling, and punctuation that were not noted in checking the note before signing. Code Visit Inpatient E&M: 24649 Subs Hosp L2
--- NOTE | 2017-06-05 11:19 | CASEMGMT ---
SW sent updates to [facility]. Await d/c to [facility] when medically ready. Chey AGUIRRE MSW
[2017-06-05 11:46] LABS: Bedside Glucose 194 mg/dL (70-110)
--- NOTE | 2017-06-05 14:16 | PN_ITS ---
Patient Problems: Active and Suspected Problems (Last Updated 05/30/17 @ 16:02 by David Montana MD) Acute on chronic respiratory failure with hypoxia and hypercapnia (Acute) Acute on chronic diastolic (congestive) heart failure (Acute) Subjective: Patient seen and examined. Feels improved today. She is now on 6 L nasal cannula, oxygen 93%. She reports less dyspnea with exertion. Denies further calf pain. Denies other complaints. - Physical Exam General: Alert, Oriented x3, Cooperative, No apparent distress HEENT: Atraumatic, PERRLA, EOMI, Normocephalic Neck: Supple, No JVD, Negative Carotid Bruits Lungs: Clear to auscultation, Diminished Cardiovascular: Regular rate, Regular Rhythm, Normal S1, Normal S2, Murmur Abdomen: Bowel Sounds Present, Soft, Non Tender, Non-Distended Extremities: No clubbing, No cyanosis, No edema, Capillary Refill Less than 3 Seconds Skin: No rashes, No breakdown Musculoskeletal: No Tenderness to Palpation of Joints or Extremities Neurological: Cranial nerves II-XII grossly intact, Neuro grossly intact Psych/Mental Status: Normal Affect, Appropriate Vital Signs Temp Pulse Resp BP Pulse Ox 97.6 F L 75 18 104/47 L 92 06/05/17 08:30 06/05/17 11:00 06/05/17 10:18 06/05/17 08:30 06/05/17 11:18 Oxygen Flow Rate (L/min) 6 Oxygen Delivery Method Nasal Cannula Weight: 115.7 kg Body Mass Index (BMI) 46.5 Intake and Output for Last 24 Hours 06/03/17 06/04/17 06/05/17 23:59 23:59 23:59 Intake Total 840 / 840 2280 / 2280 894 / 894 Output Total 2950 / 2950 3150 / 3150 1300 / 1300 Balance -2110 / -2110 -870 / -870 -406 / -406 Laboratory Tests Past 24 Hrs 06/04/17 06/05/17 06/05/17 11:50 06:40 06:40 WBC 9.2 RBC 3.78 L Hgb 10.1 L Hct 36.4 L MCV 96.3 MCH 26.7 L MCHC 27.7 L RDW 17.5 H RDW Differential 58.3 H Plt Count 407 MPV 9.1 PT INR APTT Sodium 140 Potassium 3.9 Chloride 89 L Carbon Dioxide > 45.0 H* Anion Gap TNP BUN 37 H Creatinine 1.13 H Estim Creat Clear Calc 38.87 Est GFR (MDRD) Af Amer 61 Est GFR (MDRD) Non-Af 51 L BUN/Creatinine Ratio 32.7 H Glucose 163 H Calcium 9.1 Blood Type AB POSITIVE Antibody Screen NEGATIVE Crossmatch See Detail 06/05/17 06:40 WBC RBC Hgb Hct MCV MCH MCHC RDW RDW Differential Plt Count MPV PT 14.7 INR 1.2 APTT 34.9 Sodium Potassium Chloride Carbon Dioxide Anion Gap BUN Creatinine Estim Creat Clear Calc Est GFR (MDRD) Af Amer Est GFR (MDRD) Non-Af BUN/Creatinine Ratio Glucose Calcium Blood Type Antibody Screen Crossmatch POC Glucose 06/05/17 06/05/17 06/04/17 11:34 06:55 21:15 POC Glucose 194 H 171 H 185 H 06/04/17 16:32 POC Glucose 196 H Medical Necessity - Tobacco Use Smoking Status: Former smoker Tobacco Use: Non-smoker Assessment/Plan Active and Suspected Problems (Last Updated 05/30/17 @ 16:02 by David Montana MD) Acute on chronic respiratory failure with hypoxia and hypercapnia (Acute) Acute on chronic diastolic (congestive) heart failure (Acute) Patient is a 66-year-old female admitted 05/30/2017 due to shortness of breath. She has a past medical history of aortic stenosis, chronic anemia, carotid artery stenosis, chronic hypoxemic respiratory failure, pulmonary fibrosis, stage III COPD, type 2 diabetes mellitus, pulmonary hypertension, hypertension, hyperlipidemia, history of GI AVM. 1. Acute on chronic hypoxic and hypercapnic respiratory failure-on 5 L nasal cannula continuously at baseline. Chest x-ray on admission consistent with pulmonary vascular congestion. Continue supplement oxygen to maintain O2 at or above 90%. 2. Acute on chronic diastolic CHF-chest x-ray as noted above. Troponin negative. Cardiology consulted. Continue bumetanide drip. Diuresing well. 1500 fluid restriction. Strict I&O. Echocardiogram shows estimated ejection fraction 60%, moderate tricuspid valve insufficiency, pulmonary artery systolic pressure is 60 mmHg, moderately severe aortic stenosis. Right heart cath this admission when pulmonary status is stable, hopefully tomorrow. 3. Severe chronic COPD/pulmonary hypertension/pulmonary fibrosis-albuterol and DuoNeb aerosols. Continue supplemental oxygen to maintain O2 at or above 90%. No evidence of acute COPD exacerbation. 4. Acute on chronic normocytic anemia-baseline hemoglobin approximately 8. Patient has received 4 units packed red blood cells this admission. Continue iron supplementation. Monitor CBC. 5. Moderate to severe aortic stenosis-has been evaluated by [facility] cardiology in the past for TAVR. The overall consensus is currently that she is not a candidate for aortic valve replacement at this time. She will continue outpatient follow-up with cardiology with serial echocardiograms. 6. Type 2 diabetes mellitus-oral regimen on hold. Accu-Cheks before meals at bedtime with sliding scale insulin. 7. Hypertension-stable, continue home regimen. 8. Hyperlipidemia-continue statin. 9. History of GI AVM DVT prophylaxis-SCDs. No pharmacologic prophylaxis given anemia. This patient was seen by SHOLA Garcia under the supervision of Dr. Mckeon.
[2017-06-05 17:41] LABS: Bedside Glucose 218 mg/dL (70-110)
[2017-06-05] MEDS: Atorvastatin Calcium 10 MG Tablet PO (21:43)
[2017-06-05] MEDS: Gabapentin 100 MG Capsule 200 MG PO (21:44)
[2017-06-05 23:46] LABS: Bedside Glucose 243 mg/dL (70-110)
[2017-06-06] VITALS (20 sets, daily range): BP systolic 108–122; BP diastolic 48–64; PULSE 74–89; RESP 12–20; TEMP 36.6–36.9; O2SAT 92–97
[2017-06-06 05:23] LABS: Hematocrit 35.7 % (37-47); Mean Corpuscular Hgb 27.1 pg (27.0-32.0); Mean Corpuscular Volume 96.7 fL (81-99); Mean Platelet Vol. 9.2 fl (6.2-12.0); Platelet Count 417 K/mm3 (150-450); RBC Distribution Width CV 16.8 % (11.6-14.6); RBC Distribution Width SD 56.5 fl (35.1-43.9); Red Blood Count 3.69 M/mm3 (4.2-5.4); White Blood Count 11.3 K/mm3 (4.4-11.0)
[2017-06-06 05:24] LABS: Scan Indicated on CBC? Y/N NO
[2017-06-06 05:44] LABS: International Normalized Ratio 1.1; Prothrombin Time (Protime)PT. 14.6 SECONDS (11.7-14.9)
[2017-06-06 05:45] LABS: Partial Thromboplast Time 36.3 Seconds (24.1-36.2)
--- NOTE | 2017-06-06 05:55 | EKG12_ITS ---
Test Reason : AM EKG Blood Pressure : / mmHG Vent. Rate : 082 BPM Atrial Rate : 082 BPM P-R Int : 144 ms QRS Dur : 150 ms QT Int : 450 ms P-R-T Axes : 069 104 016 degrees QTc Int : 525 ms Normal sinus rhythm Right bundle branch block Abnormal ECG When compared with ECG of 05-JUN-2017 05:45, MANUAL COMPARISON REQUIRED, DATA IS UNCONFIRMED Confirmed by ANJANA GAMBOA, CHOLO ([id number]), dictionary editor MONA NGO ([id number]) on 06/07/2017 2:59:08 PM Referred By: REILLY Confirmed By:CHOLO YEUNG MD
[2017-06-06 06:09] LABS: BUN 39 mg/dL (7-18); BUN/Creat Ratio 37.9 RATIO (10-20); Calcium,Total 8.8 mg/dL (8.5-10.1); Carbon Dioxide < 45.0 mmol/L (21.0-32.0); Chloride 87 mmol/L (98-107); Creatinine, Serum 1.03 mg/dL (0.55-1.02); EST Glomerular Filtration Rate 57 mL/min (>60); Est Glom Filt Rate - Afr Amer 68 mL/min (>60); Estimated Creatinine Clearance 42.64 ml/min; Glucose 161 mg/dL (74-106); Potassium 3.5 mmol/L (3.5-5.1); Sodium Level 139 mmol/L (136-145)
[2017-06-06] MEDS: Metoprolol Tartrate 50 MG Tablet PO ×2 (06:47→21:24)
[2017-06-06 07:06] LABS: Bedside Glucose 177 mg/dL (70-110)
--- NOTE | 2017-06-06 07:13 | PCM.PROGNOTE ---
Patient Problems: Active and Suspected Problems (Last Updated 05/30/17 @ 16:02 by David Montana MD) Acute on chronic respiratory failure with hypoxia and hypercapnia (Acute) Acute on chronic diastolic (congestive) heart failure (Acute) Subjective: Patient did well overnight. Patient tolerating 6 L nasal cannula with adequate saturations. Patient feels subjectively improved from dyspnea on exertion. Patient is denying any chest pain, abdominal pain or blood loss at this time. - Physical Exam General: Alert, Oriented x3, Cooperative, No apparent distress, - - Morbidly obese. Speaking in full sentences. HEENT: Atraumatic, PERRLA, EOMI, Normocephalic, - - No scleral icterus or injection noted. Nasal cannula in place. No epistaxis noted. Oral: No Gingival or Mucosal Lesions/ Ulcerations, Dry Mucosa Neck: Supple, No Nodes, Trachea Midline, JVD, Right Lungs: No rhonchi, No wheeze, Diminished, Rales, - - Symmetric expansion. No dullness to percussion. Cardiovascular: Regular rate, Regular Rhythm, Normal S1, Normal S2, Murmur, No rub noted, No Gallop Abdomen: Bowel Sounds Present, Soft, Non Tender, Non-Distended, Obese Extremities: No cyanosis, Capillary Refill Less than 3 Seconds, Clubbing, Edema Skin: - - No significant change compared to previous Musculoskeletal: No Tenderness to Palpation of Joints or Extremities Lymphatic: No Cervical, Supraclavicular, or Inguinal Adenopathy Neurological: Cranial nerves II-XII grossly intact, Neuro grossly intact, Motor Exam 5/5 strength throughout Psych/Mental Status: Alert and oriented to time, place, person, mood and affect Vital Signs Temp Pulse Resp BP Pulse Ox 36.8 C 82 18 115/58 L 97 06/06/17 06:42 06/06/17 06:47 06/06/17 06:42 06/06/17 06:42 06/06/17 06:42 Oxygen Flow Rate (L/min) 6 Oxygen Delivery Method Nasal Cannula Weight: 117.027 kg Body Mass Index (BMI) 46.5 Intake and Output for Last 24 Hours 06/04/17 06/05/17 06/06/17 23:59 23:59 23:59 Intake Total 2280 / 2280 1156.9 / 1156.9 14.9 / 14.9 Output Total 3150 / 3150 2700 / 2700 750 / 750 Balance -870 / -870 -1543.1 / -1543.1 -735.1 / -735.1 Laboratory Tests Past 24 Hrs 06/06/17 06/06/17 06/06/17 05:15 05:15 05:15 WBC 11.3 H RBC 3.69 L Hgb 10.0 L Hct 35.7 L MCV 96.7 MCH 27.1 MCHC 28.0 L RDW 16.8 H RDW Differential 56.5 H Plt Count 417 MPV 9.2 PT 14.6 INR 1.1 APTT 36.3 H Sodium 139 Potassium 3.5 Chloride 87 L Carbon Dioxide < 45.0 H Anion Gap TNP BUN 39 H Creatinine 1.03 H Estim Creat Clear Calc 42.64 Est GFR (MDRD) Af Amer 68 Est GFR (MDRD) Non-Af 57 L BUN/Creatinine Ratio 37.9 H Glucose 161 H Calcium 8.8 POC Glucose 06/06/17 06/05/17 06/05/17 06:50 21:37 17:29 POC Glucose 177 H 243 H 218 H 06/05/17 11:34 POC Glucose 194 H Medical Necessity - Tobacco Use Smoking Status: Former smoker Tobacco Use: Non-smoker Assessment/Plan Active and Suspected Problems (Last Updated 05/30/17 @ 16:02 by David Montana MD) Acute on chronic respiratory failure with hypoxia and hypercapnia (Acute) Acute on chronic diastolic (congestive) heart failure (Acute) RECOMMENDATIONS: 1. BiPAP breaks as tolerated during the day 2. Consider holding Bumex drip for 24 hours given contrast with heart catheterization 3. Wean supplemental oxygen. The patient needs to be maintained 88-92%, to prevent paradoxical CO2 retention. 4. Continue BiPAP with all sleep 5. Aggressive electrolyte repletion as indicated 6. Tentative plans for repeat cardiac catheterization (left and right) today, await cardiology 7. Continue aerosol regimen as ordered 8. Encourage incentive spirometer use and mobilize patient as tolerated IMPRESSIONS: 1. Acute on chronic hypoxemic and hypercarbic respiratory failure Patient appears to be responding to diuretic therapy. Since renal function continues to tolerate diuresis well. Patient is now tolerating BiPAP therapy breaks throughout the day, which is an improvement. BiPAP should be continued with sleep, but breaks during the day would be appropriate. Continue with current therapy. Potassium can be repeated as indicated. Await results of heart catheterization. 2. Aortic stenosis/diastolic heart failure with exacerbation/pulmonary hypertension/coronary artery disease Continue current medical management per cardiology recommendations. Continue diuresis as tolerated. She will be at increased risk for contrast-induced nephropathy given need for active diuresis and heart catheterization. This note was generated with [employer] dictation software. It may contain incorrect words, spelling, and punctuation that were not noted in checking the note before signing. Code Visit Inpatient E&M: 05199 Subs Hosp L2
--- NOTE | 2017-06-06 07:16 | PN_ITS ---
Patient Problems: Active and Suspected Problems (Last Updated 05/30/17 @ 16:02 by David Montana MD) Acute on chronic respiratory failure with hypoxia and hypercapnia (Acute) Acute on chronic diastolic (congestive) heart failure (Acute) Subjective: Patient did well overnight. Patient tolerating 6 L nasal cannula with adequate saturations. Patient feels subjectively improved from dyspnea on exertion. Patient is denying any chest pain, abdominal pain or blood loss at this time. - Physical Exam General: Alert, Oriented x3, Cooperative, No apparent distress, - - Morbidly obese. Speaking in full sentences. HEENT: Atraumatic, PERRLA, EOMI, Normocephalic, - - No scleral icterus or injection noted. Nasal cannula in place. No epistaxis noted. Oral: No Gingival or Mucosal Lesions/ Ulcerations, Dry Mucosa Neck: Supple, No Nodes, Trachea Midline, JVD, Right Lungs: No rhonchi, No wheeze, Diminished, Rales, - - Symmetric expansion. No dullness to percussion. Cardiovascular: Regular rate, Regular Rhythm, Normal S1, Normal S2, Murmur, No rub noted, No Gallop Abdomen: Bowel Sounds Present, Soft, Non Tender, Non-Distended, Obese Extremities: No cyanosis, Capillary Refill Less than 3 Seconds, Clubbing, Edema Skin: - - No significant change compared to previous Musculoskeletal: No Tenderness to Palpation of Joints or Extremities Lymphatic: No Cervical, Supraclavicular, or Inguinal Adenopathy Neurological: Cranial nerves II-XII grossly intact, Neuro grossly intact, Motor Exam 5/5 strength throughout Psych/Mental Status: Alert and oriented to time, place, person, mood and affect Vital Signs Temp Pulse Resp BP Pulse Ox 36.8 C 82 18 115/58 L 97 06/06/17 06:42 06/06/17 06:47 06/06/17 06:42 06/06/17 06:42 06/06/17 06:42 Oxygen Flow Rate (L/min) 6 Oxygen Delivery Method Nasal Cannula Weight: 117.027 kg Body Mass Index (BMI) 46.5 Intake and Output for Last 24 Hours 06/04/17 06/05/17 06/06/17 23:59 23:59 23:59 Intake Total 2280 / 2280 1156.9 / 1156.9 14.9 / 14.9 Output Total 3150 / 3150 2700 / 2700 750 / 750 Balance -870 / -870 -1543.1 / -1543.1 -735.1 / -735.1 Laboratory Tests Past 24 Hrs 06/06/17 06/06/17 06/06/17 05:15 05:15 05:15 WBC 11.3 H RBC 3.69 L Hgb 10.0 L Hct 35.7 L MCV 96.7 MCH 27.1 MCHC 28.0 L RDW 16.8 H RDW Differential 56.5 H Plt Count 417 MPV 9.2 PT 14.6 INR 1.1 APTT 36.3 H Sodium 139 Potassium 3.5 Chloride 87 L Carbon Dioxide < 45.0 H Anion Gap TNP BUN 39 H Creatinine 1.03 H Estim Creat Clear Calc 42.64 Est GFR (MDRD) Af Amer 68 Est GFR (MDRD) Non-Af 57 L BUN/Creatinine Ratio 37.9 H Glucose 161 H Calcium 8.8 POC Glucose 06/06/17 06/05/17 06/05/17 06:50 21:37 17:29 POC Glucose 177 H 243 H 218 H 06/05/17 11:34 POC Glucose 194 H Medical Necessity - Tobacco Use Smoking Status: Former smoker Tobacco Use: Non-smoker Assessment/Plan Active and Suspected Problems (Last Updated 05/30/17 @ 16:02 by David Montana MD) Acute on chronic respiratory failure with hypoxia and hypercapnia (Acute) Acute on chronic diastolic (congestive) heart failure (Acute) RECOMMENDATIONS: 1. BiPAP breaks as tolerated during the day 2. Consider holding Bumex drip for 24 hours given contrast with heart catheterization 3. Wean supplemental oxygen. The patient needs to be maintained 88-92%, to prevent paradoxical CO2 retention. 4. Continue BiPAP with all sleep 5. Aggressive electrolyte repletion as indicated 6. Tentative plans for repeat cardiac catheterization (left and right) today , await cardiology 7. Continue aerosol regimen as ordered 8. Encourage incentive spirometer use and mobilize patient as tolerated IMPRESSIONS: 1. Acute on chronic hypoxemic and hypercarbic respiratory failure Patient appears to be responding to diuretic therapy. Since renal function continues to tolerate diuresis well. Patient is now tolerating BiPAP therapy breaks throughout the day, which is an improvement. BiPAP should be continued with sleep, but breaks during the day would be appropriate. Continue with current therapy. Potassium can be repeated as indicated. Await results of heart catheterization. 2. Aortic stenosis/diastolic heart failure with exacerbation/pulmonary hypertension/coronary artery disease Continue current medical management per cardiology recommendations. Continue diuresis as tolerated. She will be at increased risk for contrast- induced nephropathy given need for active diuresis and heart catheterization. This note was generated with [employer] dictation software. It may contain incorrect words, spelling, and punctuation that were not noted in checking the note before signing. Code Visit Inpatient E&M: 99375 Subs Hosp L2
--- NOTE | 2017-06-06 07:30 | NURSING ---
called report to david in rn lab
[2017-06-06] MEDS: Ferrous Sulfate 325 MG Tablet PO ×2 (08:25→16:47)
[2017-06-06] MEDS: Pantoprazole Sodium 20 MG Tablet PO (08:26)
[2017-06-06] MEDS: Escitalopram Oxalate 10 MG Tablet PO (08:26)
--- NOTE | 2017-06-06 09:08 | PCM.PN.CARD ---
Subjectve: Patient seen and evaluated. Appears to be still rather markedly short of breath. Cannot lie down flat today. Objective: Vital Signs Temp Pulse Resp BP Pulse Ox 98.2 F 77 18 115/58 L 97 06/06/17 06:42 06/06/17 07:06 06/06/17 06:42 06/06/17 06:42 06/06/17 06:42 Oxygen Flow Rate (L/min) 6 Oxygen Delivery Method Nasal Cannula Weight: 253 lb 8.505 oz Body Mass Index (BMI) 46.5 Intake and Output for Last 24 Hours 06/04/17 06/05/17 06/06/17 23:59 23:59 23:59 Intake Total 2280 / 2280 1156.9 / 1156.9 14.9 / 14.9 Output Total 3150 / 3150 2700 / 2700 750 / 750 Balance -870 / -870 -1543.1 / -1543.1 -735.1 / -735.1 General: Awake, Alert, Oriented x 3 HEENT: PERRL, EOMI, Sclera Non Icteric Neck: Supple, Good ROM, No Lymph Node Enlargement Lungs: Rales - Param Bases Cardiovascular: Regular Rhythm, Normal S1, Normal S2, No Murmurs, No Rubs, No Gallops Murmur Murmur: Grade 3/6, Early Systolic, Crescendo-Decrescendo, LLSB Vascular: No Carotid Bruits, Normal Femoral Pulses, Normal Radial Pulses, Normal Dorsalis Pedal Pulse, Normal Posterior Tibial Pulses Abdomen: Bowel Sounds Present, Soft, Non Tender, No HSM, No Organomegaly Extremities: No Cyanosis, No Clubbing, Bilateral Edema +1 Neurological: No Focal Motor or Sensory Deficit 06/06/17 05:15: WBC 11.3 H, RBC 3.69 L, Hgb 10.0 L, Hct 35.7 L, MCV 96.7, MCH 27.1, MCHC 28.0 L, RDW 16.8 H, RDW Differential 56.5 H, Plt Count 417, MPV 9.2 06/06/17 05:15: Sodium 139, Potassium 3.5, Chloride 87 L, Carbon Dioxide < 45.0 H, Anion Gap TNP, BUN 39 H, Creatinine 1.03 H, Est GFR (MDRD) Af Amer 68, Est GFR (MDRD) Non-Af 57 L, BUN/Creatinine Ratio 37.9 H, Glucose 161 H, Calcium 8.8 06/06/17 05:15: PT 14.6, INR 1.1, APTT 36.3 H Rhythm: EKG: ECHO: Stress Test: Cardiac Cath: PCI: CT Surgery: Holter monitor: EPS: PPM: CXR: Chest CT Scan: Medical Necessity - Tobacco Use Smoking Status: Former smoker Tobacco Use: Non-smoker Assessment/Plan 1. Shortness of breath. The etiology of the above is likely multifactorial. She does have aortic stenosis but I do not think that it is severe based on the mean gradient. She does have preserved left ventricular systolic function. She is also noted to be markedly anemic and also has obstructive lung disease. In addition her natriuretic peptide level is only approximately 180. I had therefore recommended that if possible she be transfused to a hemoglobin of at least 10. Even though the recommendations that patient such as this do not need to be transfused I do feel that in the context of aortic stenosis obstructive lung disease and obesity it may be helpful for her to have a better oxygen carrying capacity. She was scheduled to undergo a left and right heart catheterization later on during the week to further ascertain the reason and cause for her shortness of breath. She came down to [facility] [employer] today but could not lie flat and therefore her cardiac catheterization was postponed. In the meantime she will continue with her aggressive diuresis utilizing the intravenous bumetanide that she was put on over the weekend. 2. Valvular heart disease He does have evidence of moderate aortic stenosis at best. A repeat echocardiogram demonstrates a mean gradient which is approaching 40 mmHg but is not quite at 40 mmHg which is the cutoff severe aortic stenosis. She will have this evaluated again with the heart catheterization. 3. Hypertension She does have a history of essential hypertension and my recommendation would be to continue her current medications maintaining her blood pressure around 100 systolic. 4. Severe anemia She does have severe anemia likely secondary to AV malformations. This may be also related to her aortic stenosis. After she is appropriately tuned up she may need to consider going on chronic iron therapy to maintain her hemoglobin. 5. The artery disease Her cardiac catheterization films were reviewed and were discussed as above. There is a question as to whether she has an ostial left main. This once again will be reassessed at her catheterization. Overall I suspect that her shortness of breath is multifactorial secondary to valvular heart disease, anemia, hypertension, obesity, and coronary artery disease. At this time I think that the patient still needs another day or so before a cardiac catheterization is undertaken. Thank you for allowing me to participate in the care of your patient. Please don't hesitate to call if any issues arise
--- NOTE | 2017-06-06 10:59 | CASEMGMT ---
ANTONIO called Rema at [facility] and let her know patient could not lie down flat today for heart cath. ANTONIO told her they are going to continue to diurese her and try a heart cath again tomorrow. She did not need any updates faxed. SW to continue to follow for d/c to [facility]. Chey AGUIRRE MSW
[2017-06-06] MEDS: Metolazone 2.5 MG Tablet PO (11:09)
[2017-06-06 11:26] LABS: Bedside Glucose 211 mg/dL (70-110)
[2017-06-06] MEDS: Ipratropium/Albuterol Sulfate 3 ML AMPUL.NEB INHALATION ×4 (11:39→23:03)
--- NOTE | 2017-06-06 14:13 | PN_ITS ---
Patient Problems: Active and Suspected Problems (Last Updated 05/30/17 @ 16:02 by David Montana MD) Acute on chronic respiratory failure with hypoxia and hypercapnia (Acute) Acute on chronic diastolic (congestive) heart failure (Acute) Subjective: Unfortunately the patient was unable to undergo heart catheterization this morning because she became too short of breath when trying to lay flat. The patient is diuresed very well since admission with over 8 L out. She has a Whiteside that was removed and she continues to urinate without difficulty. She feels that overall her breathing has improved since admission. She has remained compliant with BiPAP while here and reports compliance at home. She has no fever or chills, no cough. She has significant swelling of her bilateral lower extremities, she does report that this is overall improved compared to how she was at home. - Physical Exam General: Alert, Oriented x3, Cooperative HEENT: Atraumatic, PERRLA, EOMI, Normocephalic Neck: Supple, No JVD, Negative Carotid Bruits Lungs: Clear to auscultation, Diminished - Lungs are severely diminished throughout bilaterally., Rales - Faint crackles are audible and left base Cardiovascular: Regular rate, No murmurs Abdomen: Bowel Sounds Present, Soft, Non Tender Extremities: No edema, Capillary Refill Less than 3 Seconds, Edema - 2-3+ pitting edema bilateral lower extremities up to the knee. Skin: No rashes, No breakdown Musculoskeletal: No Tenderness to Palpation of Joints or Extremities Neurological: Cranial nerves II-XII grossly intact Psych/Mental Status: Normal Affect, Appropriate, Alert and oriented to time, place, person, mood and affect Vital Signs Temp Pulse Resp BP Pulse Ox 98.4 F 79 16 108/54 L 96 06/06/17 12:45 06/06/17 12:45 06/06/17 12:45 06/06/17 12:45 06/06/17 12:45 Oxygen Flow Rate (L/min) 6 Oxygen Delivery Method Nasal Cannula Weight: 115 kg Body Mass Index (BMI) 46.5 Intake and Output for Last 24 Hours 06/04/17 06/05/17 06/06/17 23:59 23:59 23:59 Intake Total 2280 / 2280 1156.9 / 1156.9 254.9 / 254.9 Output Total 3150 / 3150 2700 / 2700 1350 / 1350 Balance -870 / -870 -1543.1 / -1543.1 -1095.1 / -1095.1 Laboratory Tests Past 24 Hrs 06/06/17 06/06/17 06/06/17 05:15 05:15 05:15 WBC 11.3 H RBC 3.69 L Hgb 10.0 L Hct 35.7 L MCV 96.7 MCH 27.1 MCHC 28.0 L RDW 16.8 H RDW Differential 56.5 H Plt Count 417 MPV 9.2 PT 14.6 INR 1.1 APTT 36.3 H Sodium 139 Potassium 3.5 Chloride 87 L Carbon Dioxide < 45.0 H Anion Gap TNP BUN 39 H Creatinine 1.03 H Estim Creat Clear Calc 42.64 Est GFR (MDRD) Af Amer 68 Est GFR (MDRD) Non-Af 57 L BUN/Creatinine Ratio 37.9 H Glucose 161 H Calcium 8.8 POC Glucose 06/06/17 06/06/17 06/05/17 11:06 06:50 21:37 POC Glucose 211 H 177 H 243 H 06/05/17 17:29 POC Glucose 218 H Medical Necessity - Tobacco Use Smoking Status: Former smoker Tobacco Use: Non-smoker Assessment/Plan Active and Suspected Problems (Last Updated 05/30/17 @ 16:02 by David Montana MD) Acute on chronic respiratory failure with hypoxia and hypercapnia (Acute) Acute on chronic diastolic (congestive) heart failure (Acute) 1. Acute on chronic hypoxic and hypercapnic respiratory failure-baseline is 5 L , she remains a 6 L right now. Chest x-ray consistent with pulmonary vascular congestion. Multifactorial with underlying COPD, pulmonary hypertension, , pulmonary fibrosis, diastolic congestive heart failure. 2. Acute on chronic diastolic CHF-she is remained on a Bumex drip and has diuresed over 8 L out. She still has significant lower extremity edema although it is improved. We will continue diuresis with bumex drip. Patient was to undergo heart catheterization today however could not tolerate it due to being unable to lie flat. Plan is to continue diuresis with addition of 1x dose of xaroxolyn and reattempt possibly tomorrow with patient on BiPAP during the procedure. Continue metoprolol, patient is not on an CHADD inhibitor or ARB At this time. -Echocardiogram: EF 60%, moderate 2+ TVI, PAS P 60 mmHg, severe focal aortic valve calcification, moderately severe left ear. -Venous ultrasound was negative. 3. Severe chronic COPD-pulmonary hypertension-pulmonary fibrosis-albuterol duo nebs, budesonide. No acute exacerbation at this time. Pulmonology is following. 4. Acute on chronic normocytic anemia-has improved after receiving 4 units PRBCs this admission. Continue iron supplements. 5. Moderate to severe aortic stenosis-this is overall complicating her ability to improve from a respiratory standpoint and she may need to undergo aortic valve replacement. She would need transferred for this to happen. 6. Type 2 diabetes mellitus-orals held, sliding scale insulin. 7. Hypertension-stable 8. Hyperlipidemia-continue statin 9. History of GI AVM DVT prophylaxis SCDs, chemo prophylaxis is contraindicated given her anemia and history of GI AVM. This patient was seen by Shemar Butcher PA-C under the supervision of Doctor Nieves.
[2017-06-06 17:06] LABS: Bedside Glucose 147 mg/dL (70-110)
[2017-06-06] MEDS: Budesonide Respules 0.5 MG/2 ML AMPUL.NEB. INHALATION (19:12)
[2017-06-06] MEDS: Atorvastatin Calcium 10 MG Tablet PO (21:24)
[2017-06-06] MEDS: Gabapentin 100 MG Capsule 200 MG PO (21:24)
[2017-06-06] MEDS: Fluticasone 0.05% 1 SPRAY NASAL.SRY NASAL (21:24)
[2017-06-06 21:41] LABS: Bedside Glucose 198 mg/dL (70-110)
--- NOTE | 2017-06-06 23:44 | NURSING ---
Pt called out wanting bipap mask off at this time. Pt only on bipap for 40min. Pt encouraged to stay on bipap longer, but pt refusing to wear it any longer. This rn encouraged pt to attempt to wear mask later on, pt said maybe.
[2017-06-07] VITALS (28 sets, daily range): BP systolic 113–139; BP diastolic 39–65; PULSE 67–98; RESP 12–22; TEMP 36.3–36.8; O2SAT 90–97
[2017-06-07 05:26] LABS: Absolute Lymphocyte Count 0.62 X10^3/ul (0.83-4.51); Absolute Neutrophil Count 8.9 X10^3/uL (2.0-7.7); Basophil# 0.04 X10^3/uL; Basophil% 0.4 % (0-1); Eosinophil# 0.29 X10^3/uL; Eosinophils% 2.7 % (0-5); Hematocrit 37.1 % (37-47); Hemoglobin 10.3 g/dl (12.0-15.0); Lymphocyte # 0.62 X10^3/ul (4.0); Lymphocyte % 5.7 % (19-41); Mean Corp Hgb Conc 27.8 g/gl (32-36); Mean Corpuscular Volume 97.4 fL (81-99); Mean Platelet Vol. 9.2 fl (6.2-12.0); Monocyte# 0.91 X10^3/uL; Monocyte% 8.4 % (0-10); Neutrophil # 8.91 X10^3/uL (2.7-7.7); Neutrophil % 82.4 % (47-70); Platelet Count 407 K/mm3 (150-450); RBC Distribution Width CV 16.3 % (11.6-14.6); Red Blood Count 3.81 M/mm3 (4.2-5.4); White Blood Count 10.8 K/mm3 (4.4-11.0)
[2017-06-07 05:28] LABS: International Normalized Ratio 1.1; Prothrombin Time (Protime)PT. 14.4 SECONDS (11.7-14.9)
[2017-06-07 05:29] LABS: Partial Thromboplast Time 38.3 Seconds (24.1-36.2)
[2017-06-07 05:33] LABS: POSITIVE COUNT NO; POSITIVE DIFFERENTIAL NO; POSITIVE MORPHOLOGY NO
--- NOTE | 2017-06-07 05:55 | EKG12_ITS ---
Test Reason : AM EKG Blood Pressure : / mmHG Vent. Rate : 076 BPM Atrial Rate : 076 BPM P-R Int : 144 ms QRS Dur : 152 ms QT Int : 470 ms P-R-T Axes : 073 103 011 degrees QTc Int : 528 ms Normal sinus rhythm Right bundle branch block Abnormal ECG When compared with ECG of 06-JUN-2017 05:41, MANUAL COMPARISON REQUIRED, DATA IS UNCONFIRMED Confirmed by ANJANA GAMBOA, CHOLO ([id number]), website/blog editor [employer] ([id number]) on 06/11/2017 1:49:11 PM Referred By: DR GROVER Confirmed By:CHOLO YEUNG MD
[2017-06-07 06:05] LABS: BUN 39 mg/dL (7-18); BUN/Creat Ratio 38.6 RATIO (10-20); Calcium,Total 8.9 mg/dL (8.5-10.1); Carbon Dioxide > 45.0 mmol/L (21.0-32.0); Chloride 83 mmol/L (98-107); Creatinine, Serum 1.01 mg/dL (0.55-1.02); EST Glomerular Filtration Rate 58 mL/min (>60); Est Glom Filt Rate - Afr Amer 70 mL/min (>60); Estimated Creatinine Clearance 43.49 ml/min; Glucose 154 mg/dL (74-106); Potassium 3.2 mmol/L (3.5-5.1); Sodium Level 138 mmol/L (136-145)
[2017-06-07 07:06] LABS: Bedside Glucose 170 mg/dL (70-110)
[2017-06-07] MEDS: Budesonide Respules 0.5 MG/2 ML AMPUL.NEB. INHALATION ×2 (07:29→21:10)
[2017-06-07] MEDS: Ipratropium/Albuterol Sulfate 3 ML AMPUL.NEB INHALATION ×4 (07:29→21:10)
--- NOTE | 2017-06-07 08:00 | PCM.PROGNOTE ---
Patient Problems: Active and Suspected Problems (Last Updated 05/30/17 @ 16:02 by David Montana MD) Acute on chronic respiratory failure with hypoxia and hypercapnia (Acute) Acute on chronic diastolic (congestive) heart failure (Acute) Subjective: Patient did okay overnight. Patient wore BiPAP for only approximately 40 minutes. Patient did not have heart catheterization secondary to an inability to lie flat. Diuresis had continued. Patient reports significant improvement subjectively in dyspnea, but has not attempted to lie flat. Patient has been tolerating nasal cannula oxygen. - Physical Exam General: Alert, Oriented x3, Cooperative, No apparent distress, - - Appears older than stated age. Speaking in full sentences. HEENT: Atraumatic, PERRLA, EOMI, Normocephalic, - - No scleral icterus or injection noted. Oral: Moist Mucosa, No Gingival or Mucosal Lesions/ Ulcerations Neck: Supple, No Nodes, Trachea Midline, JVD, Right Lungs: No rhonchi, No wheeze, Diminished, Rales, - - Symmetric expansion. No dullness to percussion. Cardiovascular: Regular rate, Regular Rhythm, Normal S1, Normal S2, Murmur - Unchanged, No rub noted, No Gallop Abdomen: Bowel Sounds Present, Soft, Non Tender, Non-Distended, Obese Extremities: No cyanosis, Capillary Refill Less than 3 Seconds, Clubbing, Edema Skin: - Musculoskeletal: No Tenderness to Palpation of Joints or Extremities, No Muscle Wasting - Significant change compared to previous Lymphatic: No Cervical, Supraclavicular, or Inguinal Adenopathy Neurological: Cranial nerves II-XII grossly intact, Neuro grossly intact, Motor Exam 5/5 strength throughout Psych/Mental Status: Alert and oriented to time, place, person, mood and affect Vital Signs Temp Pulse Resp BP Pulse Ox 36.4 C L 77 20 H 118/60 96 06/07/17 06:52 06/07/17 07:11 06/07/17 06:52 06/07/17 06:52 06/07/17 06:52 Oxygen Flow Rate (L/min) 6 Oxygen Delivery Method Nasal Cannula Weight: 113.1 kg Body Mass Index (BMI) 46.5 Intake and Output for Last 24 Hours 06/05/17 06/06/17 06/07/17 23:59 23:59 23:59 Intake Total 1156.9 / 1156.9 884.4 / 884.4 15.3 / 15.3 Output Total 2700 / 2700 3975 / 3975 650 / 650 Balance -1543.1 / -1543.1 -3090.6 / -3090.6 -634.7 / -634.7 Laboratory Tests Past 24 Hrs 06/07/17 06/07/17 06/07/17 05:10 05:10 05:10 WBC 10.8 RBC 3.81 L Hgb 10.3 L Hct 37.1 MCV 97.4 MCH 27.0 MCHC 27.8 L RDW 16.3 H RDW Differential 56.0 H Plt Count 407 MPV 9.2 Immature Gran % (Auto) 0.400 Neut % (Auto) 82.4 H Lymph % (Auto) 5.7 L [place] % (Auto) 8.4 Eos % (Auto) 2.7 Baso % (Auto) 0.4 Absolute Neuts (auto) 8.9 H Absolute Lymphs (auto) 0.62 L Total Counted Not Reportable PT 14.4 INR 1.1 APTT 38.3 H Sodium 138 Potassium 3.2 L Chloride 83 L Carbon Dioxide > 45.0 H* Anion Gap TNP BUN 39 H Creatinine 1.01 Estim Creat Clear Calc 43.49 Est GFR (MDRD) Af Amer 70 Est GFR (MDRD) Non-Af 58 L BUN/Creatinine Ratio 38.6 H Glucose 154 H Calcium 8.9 POC Glucose 06/07/17 06/06/17 06/06/17 06:51 21:23 16:43 POC Glucose 170 H 198 H 147 H 06/06/17 11:06 POC Glucose 211 H Medical Necessity - Tobacco Use Smoking Status: Former smoker Tobacco Use: Non-smoker Assessment/Plan Active and Suspected Problems (Last Updated 05/30/17 @ 16:02 by David Montana MD) Acute on chronic respiratory failure with hypoxia and hypercapnia (Acute) Acute on chronic diastolic (congestive) heart failure (Acute) RECOMMENDATIONS: 1. BiPAP breaks as tolerated during the day 2. Consider holding Bumex drip for 24 hours on day of heart catheterization given contrast requirements 3. Wean supplemental oxygen. The patient needs to be maintained 88-92%, to prevent paradoxical CO2 retention. 4. Continue BiPAP with all sleep 5. Aggressive electrolyte repletion as indicated 6. Tentative plans for repeat cardiac catheterization (left and right) today, await cardiology 7. Continue aerosol regimen as ordered 8. Encourage incentive spirometer use and mobilize patient as tolerated IMPRESSIONS: 1. Acute on chronic hypoxemic and hypercarbic respiratory failure Patient appears to be responding to diuretic therapy. Renal function continues to tolerate diuresis well. Patient is not requiring BiPAP therapy during the day. However, BiPAP should be continued with sleep. Stressed the importance of compliance with the patient. Continue with current therapy. Potassium will be repeated as indicated. Await results of heart catheterization. 2. Aortic stenosis/diastolic heart failure with exacerbation/pulmonary hypertension/coronary artery disease Continue current medical management per cardiology recommendations. Continue diuresis as tolerated. Patient will be at increased risk for contrast-induced nephropathy given need for active diuresis and heart catheterization. This note was generated with [employer] dictation software. It may contain incorrect words, spelling, and punctuation that were not noted in checking the note before signing. Code Visit Inpatient E&M: 15984 Subs Hosp L2
--- NOTE | 2017-06-07 08:03 | PN_ITS ---
Patient Problems: Active and Suspected Problems (Last Updated 05/30/17 @ 16:02 by David Montana MD) Acute on chronic respiratory failure with hypoxia and hypercapnia (Acute) Acute on chronic diastolic (congestive) heart failure (Acute) Subjective: Patient did okay overnight. Patient wore BiPAP for only approximately 40 minutes. Patient did not have heart catheterization secondary to an inability to lie flat. Diuresis had continued. Patient reports significant improvement subjectively in dyspnea, but has not attempted to lie flat. Patient has been tolerating nasal cannula oxygen. - Physical Exam General: Alert, Oriented x3, Cooperative, No apparent distress, - - Appears older than stated age. Speaking in full sentences. HEENT: Atraumatic, PERRLA, EOMI, Normocephalic, - - No scleral icterus or injection noted. Oral: Moist Mucosa, No Gingival or Mucosal Lesions/ Ulcerations Neck: Supple, No Nodes, Trachea Midline, JVD, Right Lungs: No rhonchi, No wheeze, Diminished, Rales, - - Symmetric expansion. No dullness to percussion. Cardiovascular: Regular rate, Regular Rhythm, Normal S1, Normal S2, Murmur - Unchanged, No rub noted, No Gallop Abdomen: Bowel Sounds Present, Soft, Non Tender, Non-Distended, Obese Extremities: No cyanosis, Capillary Refill Less than 3 Seconds, Clubbing, Edema Skin: - Musculoskeletal: No Tenderness to Palpation of Joints or Extremities, No Muscle Wasting - Significant change compared to previous Lymphatic: No Cervical, Supraclavicular, or Inguinal Adenopathy Neurological: Cranial nerves II-XII grossly intact, Neuro grossly intact, Motor Exam 5/5 strength throughout Psych/Mental Status: Alert and oriented to time, place, person, mood and affect Vital Signs Temp Pulse Resp BP Pulse Ox 36.4 C L 77 20 H 118/60 96 06/07/17 06:52 06/07/17 07:11 06/07/17 06:52 06/07/17 06:52 06/07/17 06:52 Oxygen Flow Rate (L/min) 6 Oxygen Delivery Method Nasal Cannula Weight: 113.1 kg Body Mass Index (BMI) 46.5 Intake and Output for Last 24 Hours 06/05/17 06/06/17 06/07/17 23:59 23:59 23:59 Intake Total 1156.9 / 1156.9 884.4 / 884.4 15.3 / 15.3 Output Total 2700 / 2700 3975 / 3975 650 / 650 Balance -1543.1 / -1543.1 -3090.6 / -3090.6 -634.7 / -634.7 Laboratory Tests Past 24 Hrs 06/07/17 06/07/17 06/07/17 05:10 05:10 05:10 WBC 10.8 RBC 3.81 L Hgb 10.3 L Hct 37.1 MCV 97.4 MCH 27.0 MCHC 27.8 L RDW 16.3 H RDW Differential 56.0 H Plt Count 407 MPV 9.2 Immature Gran % (Auto) 0.400 Neut % (Auto) 82.4 H Lymph % (Auto) 5.7 L [place] % (Auto) 8.4 Eos % (Auto) 2.7 Baso % (Auto) 0.4 Absolute Neuts (auto) 8.9 H Absolute Lymphs (auto) 0.62 L Total Counted Not Reportable PT 14.4 INR 1.1 APTT 38.3 H Sodium 138 Potassium 3.2 L Chloride 83 L Carbon Dioxide > 45.0 H* Anion Gap TNP BUN 39 H Creatinine 1.01 Estim Creat Clear Calc 43.49 Est GFR (MDRD) Af Amer 70 Est GFR (MDRD) Non-Af 58 L BUN/Creatinine Ratio 38.6 H Glucose 154 H Calcium 8.9 POC Glucose 06/07/17 06/06/17 06/06/17 06:51 21:23 16:43 POC Glucose 170 H 198 H 147 H 06/06/17 11:06 POC Glucose 211 H Medical Necessity - Tobacco Use Smoking Status: Former smoker Tobacco Use: Non-smoker Assessment/Plan Active and Suspected Problems (Last Updated 05/30/17 @ 16:02 by David Montana MD) Acute on chronic respiratory failure with hypoxia and hypercapnia (Acute) Acute on chronic diastolic (congestive) heart failure (Acute) RECOMMENDATIONS: 1. BiPAP breaks as tolerated during the day 2. Consider holding Bumex drip for 24 hours on day of heart catheterization given contrast requirements 3. Wean supplemental oxygen. The patient needs to be maintained 88-92%, to prevent paradoxical CO2 retention. 4. Continue BiPAP with all sleep 5. Aggressive electrolyte repletion as indicated 6. Tentative plans for repeat cardiac catheterization (left and right) today , await cardiology 7. Continue aerosol regimen as ordered 8. Encourage incentive spirometer use and mobilize patient as tolerated IMPRESSIONS: 1. Acute on chronic hypoxemic and hypercarbic respiratory failure Patient appears to be responding to diuretic therapy. Renal function continues to tolerate diuresis well. Patient is not requiring BiPAP therapy during the day. However, BiPAP should be continued with sleep. Stressed the importance of compliance with the patient. Continue with current therapy. Potassium will be repeated as indicated. Await results of heart catheterization. 2. Aortic stenosis/diastolic heart failure with exacerbation/pulmonary hypertension/coronary artery disease Continue current medical management per cardiology recommendations. Continue diuresis as tolerated. Patient will be at increased risk for contrast- induced nephropathy given need for active diuresis and heart catheterization. This note was generated with [employer] dictation software. It may contain incorrect words, spelling, and punctuation that were not noted in checking the note before signing. Code Visit Inpatient E&M: 66552 Subs Hosp L2
--- NOTE | 2017-06-07 08:23 | PCM.PN.CARD ---
Subjectve: Patient seen and evaluated. Still short of breath has not attempted to lie down flat. Objective: Vital Signs Temp Pulse Resp BP Pulse Ox 97.6 F L 77 20 H 118/60 96 06/07/17 06:52 06/07/17 07:11 06/07/17 06:52 06/07/17 06:52 06/07/17 06:52 Oxygen Flow Rate (L/min) 6 Oxygen Delivery Method Nasal Cannula Weight: 249 lb 5.485 oz Body Mass Index (BMI) 46.5 Intake and Output for Last 24 Hours 06/05/17 06/06/17 06/07/17 23:59 23:59 23:59 Intake Total 1156.9 / 1156.9 884.4 / 884.4 15.3 / 15.3 Output Total 2700 / 2700 3975 / 3975 650 / 650 Balance -1543.1 / -1543.1 -3090.6 / -3090.6 -634.7 / -634.7 General: Awake, Alert, Oriented x 3, Obese HEENT: PERRL, EOMI, Sclera Non Icteric Neck: Supple, Good ROM, No Lymph Node Enlargement Lungs: Diminished Param Bases Cardiovascular: Regular Rhythm, Normal S1, Normal S2, No Murmurs, No Rubs, No Gallops Vascular: No Carotid Bruits, Normal Femoral Pulses, Normal Radial Pulses, Normal Dorsalis Pedal Pulse, Normal Posterior Tibial Pulses Abdomen: Bowel Sounds Present, Soft, Non Tender, No HSM, No Organomegaly Extremities: No Cyanosis, No Clubbing, No edema Neurological: No Focal Motor or Sensory Deficit 06/07/17 05:10: WBC 10.8, RBC 3.81 L, Hgb 10.3 L, Hct 37.1, MCV 97.4, MCH 27.0, MCHC 27.8 L, RDW 16.3 H, RDW Differential 56.0 H, Plt Count 407, MPV 9.2, Immature Gran % (Auto) 0.400, Neut % (Auto) 82.4 H, Lymph % (Auto) 5.7 L, [place] % (Auto) 8.4, Eos % (Auto) 2.7, Baso % (Auto) 0.4, Absolute Neuts (auto) 8.9 H, Total Counted Not Reportable 06/07/17 05:10: PT 14.4, INR 1.1, APTT 38.3 H 06/07/17 05:10: Sodium 138, Potassium 3.2 L, Chloride 83 L, Carbon Dioxide > 45.0 H*, Anion Gap TNP, BUN 39 H, Creatinine 1.01, Est GFR (MDRD) Af Amer 70, Est GFR (MDRD) Non-Af 58 L, BUN/Creatinine Ratio 38.6 H, Glucose 154 H, Calcium 8.9 Rhythm: EKG: ECHO: Stress Test: Cardiac Cath: PCI: CT Surgery: Holter monitor: EPS: PPM: CXR: Chest CT Scan: Medical Necessity - Tobacco Use Smoking Status: Former smoker Tobacco Use: Non-smoker Assessment/Plan 1. Shortness of breath. The etiology of the above is likely multifactorial. She does have aortic stenosis but I do not think that it is severe based on the mean gradient. She does have preserved left ventricular systolic function. Her anemia has been corrected to a hemoglobin of 10 and she is tolerating that much better. She did have some difficulty lying flat for her cardiac catheterization. I would consider trying her on BiPAP at a 30? angle and perhaps consider catheterization through the arm. The right heart pressures can always be evaluated again utilizing a repeat echocardiogram. 2. Valvular heart disease He does have evidence of moderate aortic stenosis at best. A repeat echocardiogram demonstrates a mean gradient which is approaching 40 mmHg but is not quite at 40 mmHg which is the cutoff severe aortic stenosis. She will have this evaluated again with the heart catheterization. 3. Hypertension She does have a history of essential hypertension and my recommendation would be to continue her current medications maintaining her blood pressure around 100 systolic. 4. Severe anemia She does have severe anemia likely secondary to AV malformations. This may be also related to her aortic stenosis. After she is appropriately tuned up she may need to consider going on chronic iron therapy to maintain her hemoglobin. 5. The artery disease Her cardiac catheterization films were reviewed and were discussed as above. There is a question as to whether she has an ostial left main. This once again will be reassessed at her catheterization. We will try and see whether the catheterization will be done either today or Saturday. Overall I suspect that her shortness of breath is multifactorial secondary to valvular heart disease, anemia, hypertension, obesity, and coronary artery disease. Thank you for allowing me to participate in the care of your patient. Please don't hesitate to call if any issues arise
[2017-06-07] MEDS: Acetaminophen 325 MG Tablet 650 MG PO (08:26)
[2017-06-07] MEDS: Ferrous Sulfate 325 MG Tablet PO ×2 (08:27→17:13)
[2017-06-07 09:16] LABS: Magnesium 1.7 mg/dL (1.6-2.6)
[2017-06-07] MEDS: Metoprolol Tartrate 50 MG Tablet PO ×2 (10:18→22:07)
[2017-06-07] MEDS: Fluticasone 0.05% 1 SPRAY NASAL.SRY NASAL ×2 (10:18→22:04)
[2017-06-07] MEDS: Pantoprazole Sodium 20 MG Tablet PO (10:18)
[2017-06-07] MEDS: Escitalopram Oxalate 10 MG Tablet PO (10:18)
[2017-06-07 11:50] LABS: Bedside Glucose 155 mg/dL (70-110)
[2017-06-07] MEDS: 0.9% NaCl Peripheral Flush Adult/Peds IV (12:46)
--- NOTE | 2017-06-07 14:09 | PCM.PROGNOTE ---
Patient Problems: Active and Suspected Problems (Last Updated 05/30/17 @ 16:02 by David Montana MD) Acute on chronic respiratory failure with hypoxia and hypercapnia (Acute) Acute on chronic diastolic (congestive) heart failure (Acute) Subjective: Pt resting comfortably in chair at bedside, legs are still down without any wraps or compression. Patient is still diuresing and emptying bladder well. SOB is about the same and O2 requirement still the same. She has no CP, palp, dizziness, LH. No fever or chills. Leg edema unchanged. - Physical Exam General: Alert, Oriented x3, Cooperative HEENT: Atraumatic, PERRLA, EOMI, Normocephalic Neck: Supple, No JVD, Negative Carotid Bruits Lungs: Diminished, Rales - faint Cardiovascular: Regular rate, Murmur - 3/6 systolic murmur heard across chest Abdomen: Bowel Sounds Present, Soft, Non Tender, Obese Extremities: Edema - 2+ pitting edema up to knees Skin: No rashes, No breakdown Musculoskeletal: No Tenderness to Palpation of Joints or Extremities Neurological: Cranial nerves II-XII grossly intact Psych/Mental Status: Normal Affect, Appropriate, Alert and oriented to time, place, person, mood and affect Vital Signs Temp Pulse Resp BP Pulse Ox 98.2 F 76 21 H 113/48 L 96 06/07/17 10:18 06/07/17 11:07 06/07/17 11:06 06/07/17 10:18 06/07/17 11:06 Oxygen Flow Rate (L/min) 6 Oxygen Delivery Method Nasal Cannula Weight: 113.1 kg Body Mass Index (BMI) 46.5 Intake and Output for Last 24 Hours 06/05/17 06/06/17 06/07/17 23:59 23:59 23:59 Intake Total 1156.9 / 1156.9 884.4 / 884.4 255.3 / 255.3 Output Total 2700 / 2700 3975 / 3975 900 / 900 Balance -1543.1 / -1543.1 -3090.6 / -3090.6 -644.7 / -644.7 Laboratory Tests Past 24 Hrs 06/07/17 06/07/17 06/07/17 05:10 05:10 05:10 WBC 10.8 RBC 3.81 L Hgb 10.3 L Hct 37.1 MCV 97.4 MCH 27.0 MCHC 27.8 L RDW 16.3 H RDW Differential 56.0 H Plt Count 407 MPV 9.2 Immature Gran % (Auto) 0.400 Neut % (Auto) 82.4 H Lymph % (Auto) 5.7 L [place] % (Auto) 8.4 Eos % (Auto) 2.7 Baso % (Auto) 0.4 Absolute Neuts (auto) 8.9 H Absolute Lymphs (auto) 0.62 L Total Counted Not Reportable PT 14.4 INR 1.1 APTT 38.3 H Sodium 138 Potassium 3.2 L Chloride 83 L Carbon Dioxide > 45.0 H* Anion Gap TNP BUN 39 H Creatinine 1.01 Estim Creat Clear Calc 43.49 Est GFR (MDRD) Af Amer 70 Est GFR (MDRD) Non-Af 58 L BUN/Creatinine Ratio 38.6 H Glucose 154 H Calcium 8.9 Magnesium 06/07/17 05:10 WBC RBC Hgb Hct MCV MCH MCHC RDW RDW Differential Plt Count MPV Immature Gran % (Auto) Neut % (Auto) Lymph % (Auto) [place] % (Auto) Eos % (Auto) Baso % (Auto) Absolute Neuts (auto) Absolute Lymphs (auto) Total Counted PT INR APTT Sodium Potassium Chloride Carbon Dioxide Anion Gap BUN Creatinine Estim Creat Clear Calc Est GFR (MDRD) Af Amer Est GFR (MDRD) Non-Af BUN/Creatinine Ratio Glucose Calcium Magnesium 1.7 POC Glucose 06/07/17 06/07/17 06/06/17 11:30 06:51 21:23 POC Glucose 155 H 170 H 198 H 06/06/17 16:43 POC Glucose 147 H Medical Necessity - Tobacco Use Smoking Status: Former smoker Tobacco Use: Non-smoker Assessment/Plan Active and Suspected Problems (Last Updated 05/30/17 @ 16:02 by David Montana MD) Acute on chronic respiratory failure with hypoxia and hypercapnia (Acute) Acute on chronic diastolic (congestive) heart failure (Acute) 1. Acute on chronic hypoxic and hypercapnic respiratory failure-baseline is 5 L, she remains a 6 L right now. Chest x-ray consistent with pulmonary vascular congestion. Multifactorial with underlying COPD, pulmonary hypertension, TRI/OHS, , pulmonary fibrosis, diastolic congestive heart failure. 2. Acute on chronic diastolic CHF-she is remained on a Bumex drip and has diuresed at least 10 Liters out. She still has significant lower extremity edema although it is improved. I stressed the importance of elevating her legs at rest and using compression. We will continue diuresis with bumex drip. s/p 1 dose xaroxalyn yesterday. metoprolol, patient is not on an CHADD inhibitor or ARB At this time. -Echocardiogram: EF 60%, moderate 2+ TVI, PAS P 60 mmHg, severe focal aortic valve calcification, moderately severe . -Venous ultrasound was negative. -Cath report from today pending. 3. Severe chronic COPD-pulmonary hypertension-pulmonary fibrosis-albuterol duo nebs, budesonide. No acute exacerbation at this time. Pulmonology is following. 4. Acute on chronic normocytic anemia-has improved after receiving 4 units PRBCs this admission. Continue iron supplements. 5. Moderate to severe aortic stenosis-this is overall complicating her ability to improve from a respiratory standpoint and she may need to undergo aortic valve replacement. She would need transferred for this to happen. 6. Type 2 diabetes mellitus-orals held, sliding scale insulin. 7. Hypertension-stable 8. Hyperlipidemia-continue statin 9. History of GI AVM 10. TRI/OHS - compliant with BiPAP DVT prophylaxis SCDs, chemo prophylaxis is contraindicated given her anemia and history of GI AVM. This patient was seen by Shemar Butcher PA-C under the supervision of Doctor Nieves.
[2017-06-07 14:41] LABS: Base Excess > 30 mmol/L (-2 to +2); Blood Gas Specimen Type ART; PO2 66 mmHG (75-100); SO2 92 % (95-99); Total Carbon Dioxide > 50 mmol/L; pCO2 78.3 mmHg (35-45); pH 7.49 (7.35-7.45)
[2017-06-07 14:41] LABS: Blood Gas Specimen Type VEN; VBG BASE EXCESS > 30 mmol/L (-1.0-3.5); VBG Bicarbonate 61 mmol/L (22-26); VBG PO2 32 mmHg (25-40); VBG SO2 58 % (50-70); VBG pCO2 88.2 mmHg (41-51); VBG pH 7.44 (7.32-7.42)
[2017-06-07 14:45] LABS: Blood Gas Specimen Type VEN; VBG BASE EXCESS > 30 mmol/L (-1.0-3.5); VBG Bicarbonate 57 mmol/L (22-26); VBG PO2 33 mmHg (25-40); VBG SO2 61 % (50-70); VBG pCO2 81.9 mmHg (41-51); VBG pH 7.45 (7.32-7.42)
--- NOTE | 2017-06-07 14:50 | CASEMGMT ---
Social Work Note SW met with patient, introduced self and role at [facility]. SW discussed Palliative Care with pt. Pt states that she is interested in Palliative Care. A referral was made to [facility] for Palliative Care. Fax was sent to [facility] including facesheet, H+P, recent progress notes and medlist. ANTONIO spoke with Nurse Cheri at [facility] to give referral. Referral was made. Plan: Per Chey AGUIRRE, Pt will be discharged to [facility] this weekend and will receive palliative care. [place]u [place] MSW, [employer].
[2017-06-07 15:40] LABS: Bedside Glucose 131 mg/dL (70-110)
--- NOTE | 2017-06-07 15:41 | CPS ---
placed pt on BIPAP in laborer bituminous paving, pt is unable to lat flat w/o severe SOB & panic. pt tolerated BIpap throughout cath, transported pt back to room on 6lpm O2.
--- NOTE | 2017-06-07 18:40 | CL.D_ITS ---
Patient Name: OMID RICHEY Study Date: 06/07/2017 Performing: Alcon Jung MD Ht: 63 inches 160 cm : 1950 Wt: 256.1 lbs 116 kg Age: 67 Gender: female BSA: 2.15 PROCEDURE(S) PERFORMED NZ08-PXG/LHC/COR/LV CLINICAL PROFILE AND INDICATIONS INDICATIONS: Shortness of Breath, Valvular heart disease, Aortic valve stenosis Stress/Imaging Stress/Image Study Performed: No Angina Classification Anginal Classification w/in 2 Weeks: No symptoms CAD Presentations: No Sxs, no angina. CONCLUSIONS Minimal coronary artery disease Mild Aortic stenosis RECOMMENDATIONS Continue medical management and referred to pulmonary service DESCRIPTION OF PROCEDURE The patient arrived to the procedure lab. The risks and benefits of the procedure as well as a full d escription of our services here and current unavailability of surgical backup were fully explained to the patient and/or their significant other prior to the catheterization. The Timeout was completed, verifying the correct patient and procedure. The patient's procedural site was prepped and draped in the usual fashion. Local anesthetic was given subcutaneously to right groin region with Lidocaine 2%. Using a modified Seldinger technique, arterial access was obtained via the right femoral artery, a 5 Fr sheath was inserted. Venous access was obtained via the right femoral vein, a 7Fr sheath was inser lex. A 7Fr thermal dilution catheter was inserted and right heart pressures were recorded, it was the n advanced to PA position for cardiac outputs. Thermal dilution cardiac outputs were then recorded. O 2 saturations were then obtained. The Thermal dilution catheter was then removed. Left Coronary Arter y selective angiography was performed in multiple views using a 5 Fr. JL4 catheter. Right Coronary Ar chanel selective angiography was then performed in multiple views using a 5 Fr. 3DRC (Vega) cathete r. Left Ventriculography was performed in BEASLEY projection using a 5 Fr. Pigtail catheter. LV to AO pul lback pressures were then recorded.The arterial sheath was pulled and manual compression applied unti l hemostasis is achieved.. The venous sheath was then pulled and manual compression applied until hem ostasis achieved CORONARY ANGIOGRAPHY DOMINANCE: Right Dominant LEFT HEART ASSESSMENT Left Ventricular Ejection Fraction: by LV Gram 55 % Normal LV wall motion Normal Left Ventricular systolic function RIGHT HEART ASSESSMENT Thermal CO: 6.52 Thermal CI: 3.03 Be CO: 6.59 Be CI: 3.07 PW: 32/ 30 PA: 62/31 43 RV: 63/17 20 RA: 19 PVR: 160 SVR: 908 Aortic Valve Area: 1.36 Aortic Valve Index: 0.63 Aortic Valve Mean Gradient: 22.7 Right Heart pressures - elevated LEFT MAIN: Angiographically normal, short vessel LEFT ANTERIOR DECENDING ARTERY: Mild luminal irregularities CIRCUMFLEX ARTERY: Mild luminal irregularities RIGHT CORONARY ARTERY: Mild luminal irregularities VALVE FINDINGS: Mild aortic stenosis COMPLICATIONS No Complications PROCEDURE MEDICATIONS Oxygen: 45 % FiO2 via BiPap SUMMARY OF HEMODYNAMIC DATA Time AIR REST ECG 13:15:43 RA 22/ (19) SV 13:18:33 RV 63/17, 20 13:18:57 PW 32/29 (30) PV 13:19:37 PA 62/31 (43) PA 13:20:10 PA 67/21 (44) 13:24:32 PW 40/36 (33) 13:24:58 PA 65/30 (43) 13:25:16 RV 65/16, 23 13:25:38 RA 23/22 (20) 13:25:47 AO 127/69 (93) SA 13:27:21 LV 149/13, 28 13:35:13 LV 155/12, 31 13:35:21 LV 136/-6, 12 13:36:42 LV 137/-3, 13 13:38:17 LVp 133/0, 13 13:38:27 AOp 111/49 (74) 13:38:32 LVp 112/50, 53 13:38:38 AOp 110/50 (74) 13:38:43 Valve Area (c P-P/ms Time AIR REST Aortic 1.36 22.7 mn/296 ms 22.0 pk/296 ms 13:38:27 Type SV CO (l/m) CI (l/m/ HR Time AIR REST Thermal 91.80 6.52 3.03 71 13:15:43 Be 92.80 6.59 3.07 71 13:15:43 Label % O2 Pres/Loc Time AIR REST PA 58 PA 13:33:59 RA 61 SV 13:34:05 FA 92 PV 13:34:08 Signed By Alcon Jung MD On 06/11/2017 08:13:13 Signed By Alcon Jung MD On 06/07/2017 18:43:30 Signed By Alcon Jung MD On 06/07/2017 18:39:52 Alcon Jung MD
--- NOTE | 2017-06-07 19:30 | NURSING ---
Heart cath recovery completed. pt ambulated in room to doorway and returned to recliner d/t shortness of breath. Heart cath site dressing c/d/i, no bleeding, bruising, or hematoma noted at site, post ambulation. VSS. Alexus UNDERWOOD
[2017-06-07] MEDS: Gabapentin 100 MG Capsule 200 MG PO (22:07)
[2017-06-07] MEDS: Atorvastatin Calcium 10 MG Tablet PO (22:07)
[2017-06-07 22:21] LABS: Bedside Glucose 296 mg/dL (70-110)
[2017-06-08] VITALS (21 sets, daily range): BP systolic 108–136; BP diastolic 46–79; PULSE 74–90; RESP 16–18; TEMP 36.3–36.8; O2SAT 85–97
[2017-06-08 06:19] LABS: Absolute Lymphocyte Count 0.62 X10^3/ul (0.83-4.51); Absolute Neutrophil Count 9.5 X10^3/uL (2.0-7.7); Basophil# 0.03 X10^3/uL; Basophil% 0.3 % (0-1); Eosinophil# 0.28 X10^3/uL; Eosinophils% 2.5 % (0-5); Hematocrit 38.5 % (37-47); Hemoglobin 10.6 g/dl (12.0-15.0); Lymphocyte # 0.62 X10^3/ul (4.0); Lymphocyte % 5.6 % (19-41); Mean Corp Hgb Conc 27.5 g/gl (32-36); Mean Corpuscular Hgb 26.2 pg (27.0-32.0); Mean Corpuscular Volume 95.3 fL (81-99); Mean Platelet Vol. 9.2 fl (6.2-12.0); Monocyte# 0.73 X10^3/uL; Monocyte% 6.5 % (0-10); Neutrophil # 9.47 X10^3/uL (2.7-7.7); Neutrophil % 84.7 % (47-70); Platelet Count 423 K/mm3 (150-450); RBC Distribution Width CV 16.3 % (11.6-14.6); RBC Distribution Width SD 54.6 fl (35.1-43.9); Red Blood Count 4.04 M/mm3 (4.2-5.4); White Blood Count 11.2 K/mm3 (4.4-11.0)
[2017-06-08 06:24] LABS: POSITIVE COUNT NO; POSITIVE DIFFERENTIAL NO; POSITIVE MORPHOLOGY NO
[2017-06-08 06:56] LABS: Bedside Glucose 187 mg/dL (70-110)
[2017-06-08 06:58] LABS: BUN 44 mg/dL (7-18); BUN/Creat Ratio 36.1 RATIO (10-20); Calcium,Total 8.7 mg/dL (8.5-10.1); Carbon Dioxide > 45.0 mmol/L (21.0-32.0); Chloride 82 mmol/L (98-107); Creatinine, Serum 1.22 mg/dL (0.55-1.02); EST Glomerular Filtration Rate 46 mL/min (>60); Est Glom Filt Rate - Afr Amer 56 mL/min (>60); Glucose 166 mg/dL (74-106); Potassium 3.6 mmol/L (3.5-5.1); Sodium Level 137 mmol/L (136-145)
[2017-06-08] MEDS: Budesonide Respules 0.5 MG/2 ML AMPUL.NEB. INHALATION ×2 (07:21→19:16)
[2017-06-08] MEDS: Ipratropium/Albuterol Sulfate 3 ML AMPUL.NEB INHALATION ×5 (07:21→22:58)
--- NOTE | 2017-06-08 07:35 | PCM.PROGNOTE ---
Patient Problems: Active and Suspected Problems (Last Updated 05/30/17 @ 16:02 by David Montana MD) Acute on chronic respiratory failure with hypoxia and hypercapnia (Acute) Acute on chronic diastolic (congestive) heart failure (Acute) Subjective: Patient did well overnight. No acute issues were reported. Patient feels subjective improvement in lower extremity edema and dyspnea. Patient did have a heart catheterization yesterday. Patient does remain on Bumex drip and is tolerating well. Objective: Heart cath results were reviewed. Patient did have an elevated wedge pressure of 33, with concomitant pulmonary hypertension. - Physical Exam General: Alert, Oriented x3, Cooperative, No apparent distress, - - Much more interactive today. Morbidly obese. HEENT: Atraumatic, PERRLA, EOMI, Normocephalic, - - No scleral icterus or injection noted. Oral: Moist Mucosa, No Gingival or Mucosal Lesions/ Ulcerations Neck: Supple, No Nodes, Trachea Midline, JVD, Right Lungs: No rhonchi, No wheeze, No rales, Diminished, - - Symmetric expansion. No dullness to percussion. Cardiovascular: Regular rate, Regular Rhythm, Normal S1, Normal S2, Murmur, No rub noted, No Gallop Abdomen: Bowel Sounds Present, Soft, Non Tender, Non-Distended, Obese Extremities: No clubbing, No cyanosis, Capillary Refill Less than 3 Seconds, Edema - Continues to improve Skin: - - Venous stasis changes. Musculoskeletal: No Tenderness to Palpation of Joints or Extremities, No Muscle Wasting Lymphatic: No Cervical, Supraclavicular, or Inguinal Adenopathy Neurological: Cranial nerves II-XII grossly intact, Neuro grossly intact, Motor Exam 5/5 strength throughout Psych/Mental Status: Alert and oriented to time, place, person, mood and affect Vital Signs Temp Pulse Resp BP Pulse Ox 36.3 C L 77 18 116/55 L 96 06/08/17 03:12 06/08/17 03:21 06/08/17 03:12 06/08/17 03:12 06/08/17 03:12 Oxygen Flow Rate (L/min) 6 Oxygen Delivery Method Nasal Cannula Weight: 112.2 kg Body Mass Index (BMI) 46.5 Intake and Output for Last 24 Hours 03/22/18 03/23/18 03/24/18 23:59 23:59 23:59 Intake Total 884.4 / 884.4 710.3 / 710.3 252 / 252 Output Total 3975 / 3975 1675 / 1675 750 / 750 Balance -3090.6 / -3090.6 -964.7 / -964.7 -498 / -498 Laboratory Tests Past 24 Hrs 06/07/17 06/07/17 06/07/17 05:10 13:22 13:26 WBC RBC Hgb Hct MCV MCH MCHC RDW RDW Differential Plt Count MPV Immature Gran % (Auto) Neut % (Auto) Lymph % (Auto) [place] % (Auto) Eos % (Auto) Baso % (Auto) Absolute Neuts (auto) Absolute Lymphs (auto) Total Counted Specimen Type ART KYLE pH 7.49 H Bicarbonate Actual 59.0 H POC Total CO2 > 50 Base Excess > 30 H O2 Saturation 92 L ABG pCO2 78.3 H* ABG pO2 66 L VBG pH 7.44 H VBG pO2 32 VBG O2 Sat (Calc) 58 VBG O2 Content TNP VBG Base Excess > 30 H POC Mix VBG pCO2 Pt Tmp 88.2 H* Sodium Potassium Chloride Carbon Dioxide Anion Gap BUN Creatinine Estim Creat Clear Calc Est GFR (MDRD) Af Amer Est GFR (MDRD) Non-Af BUN/Creatinine Ratio Glucose Calcium Magnesium 1.7 06/07/17 06/08/17 06/08/17 13:31 06:05 06:05 WBC 11.2 H RBC 4.04 L Hgb 10.6 L Hct 38.5 MCV 95.3 MCH 26.2 L MCHC 27.5 L RDW 16.3 H RDW Differential 54.6 H Plt Count 423 MPV 9.2 Immature Gran % (Auto) 0.400 Neut % (Auto) 84.7 H Lymph % (Auto) 5.6 L [place] % (Auto) 6.5 Eos % (Auto) 2.5 Baso % (Auto) 0.3 Absolute Neuts (auto) 9.5 H Absolute Lymphs (auto) 0.62 L Total Counted Not Reportable Specimen Type KYLE pH Bicarbonate Actual POC Total CO2 Base Excess O2 Saturation ABG pCO2 ABG pO2 VBG pH 7.45 H VBG pO2 33 VBG O2 Sat (Calc) 61 VBG O2 Content TNP VBG Base Excess > 30 H POC Mix VBG pCO2 Pt Tmp 81.9 H* Sodium 137 Potassium 3.6 Chloride 82 L Carbon Dioxide > 45.0 H* Anion Gap TNP BUN 44 H Creatinine 1.22 H Estim Creat Clear Calc 36.00 Est GFR (MDRD) Af Amer 56 L Est GFR (MDRD) Non-Af 46 L BUN/Creatinine Ratio 36.1 H Glucose 166 H Calcium 8.7 Magnesium POC Glucose 06/08/17 06/07/17 06/07/17 06:50 22:06 15:37 POC Glucose 187 H 296 H 131 H 06/07/17 11:30 POC Glucose 155 H Medical Necessity - Tobacco Use Smoking Status: Former smoker Tobacco Use: Non-smoker Assessment/Plan Active and Suspected Problems (Last Updated 05/30/17 @ 16:02 by David Montana MD) Acute on chronic respiratory failure with hypoxia and hypercapnia (Acute) Acute on chronic diastolic (congestive) heart failure (Acute) RECOMMENDATIONS: 1. BiPAP only with sleep 2. Likely okay to transition to baseline diuretic therapy from my perspective 3. Wean supplemental oxygen. The patient needs to be maintained 88-92%, to prevent paradoxical CO2 retention. 4. Continue BiPAP with all sleep 5. Walking oximetry prior to discharge 6. Await cardiology recommendations 7. Encourage incentive spirometer use and mobilize patient as tolerated IMPRESSIONS: 1. Acute on chronic hypoxemic and hypercarbic respiratory failure Patient appears to be responding to diuretic therapy. Patient has had a slight bump in creatinine. This may be secondary to contrast versus diuretic therapy. Patient's oxygenation is much improved. Likely okay to transition to baseline diuretic therapy from my perspective. Patient will need a walking oximetry prior to discharge. Patient did have an elevated pulmonary capillary wedge pressure on right heart catheterization indicating pulmonary hypertension secondary to diastolic dysfunction. 2. Aortic stenosis/diastolic heart failure with exacerbation/pulmonary hypertension/coronary artery disease Continue current medical management per cardiology recommendations. Continue diuresis as tolerated. Await cardiology recommendations for aortic valve moving forward. Stressed to the patient the importance of daily weights and maintenance of a low-salt diet. This note was generated with [employer] software. It may contain incorrect words, spelling, and punctuation that were not noted in checking the note before signing. Code Visit Inpatient E&M: 94428 Subs Hosp L2
[2017-06-08] MEDS: 0.9% NaCl Peripheral Flush Adult/Peds IV ×2 (09:14→21:28)
[2017-06-08] MEDS: Metoprolol Tartrate 50 MG Tablet PO (09:18)
[2017-06-08] MEDS: Escitalopram Oxalate 10 MG Tablet PO (09:18)
[2017-06-08] MEDS: Ferrous Sulfate 325 MG Tablet PO ×2 (09:18→17:42)
[2017-06-08] MEDS: Pantoprazole Sodium 20 MG Tablet PO (09:18)
--- NOTE | 2017-06-08 09:19 | PCM.PN.CARD ---
Subjectve: Patient seen and evaluated and appears to be much better this morning. Objective: Vital Signs Temp Pulse Resp BP Pulse Ox 97.8 F 90 18 119/46 L 97 06/08/17 08:26 06/08/17 09:18 06/08/17 08:26 06/08/17 09:18 06/08/17 07:11 Oxygen Flow Rate (L/min) 6 Oxygen Delivery Method Nasal Cannula Weight: 247 lb 5.738 oz Body Mass Index (BMI) 46.5 Intake and Output for Last 24 Hours 06/06/17 06/07/17 06/08/17 23:59 23:59 23:59 Intake Total 884.4 / 884.4 710.3 / 710.3 252 / 252 Output Total 3975 / 3975 1675 / 1675 750 / 750 Balance -3090.6 / -3090.6 -964.7 / -964.7 -498 / -498 General: Awake, Alert, Oriented x 3, Obese HEENT: PERRL, EOMI, Sclera Non Icteric Neck: Supple, Good ROM, No Lymph Node Enlargement Lungs: Clear to auscultation Cardiovascular: Regular Rhythm, Normal S1, Normal S2, No Rubs, No Gallops Murmur Murmur: Grade 3/6, Early Systolic, Crescendo-Decrescendo, LLSB Vascular: No Carotid Bruits, Normal Femoral Pulses, Normal Radial Pulses, Normal Dorsalis Pedal Pulse, Normal Posterior Tibial Pulses Abdomen: Bowel Sounds Present, Soft, Non Tender, No HSM, No Organomegaly Extremities: No Cyanosis, No Clubbing, No edema Neurological: No Focal Motor or Sensory Deficit 06/07/17 13:22: pH 7.49 H, Bicarbonate Actual 59.0 H, POC Total CO2 > 50, Base Excess > 30 H, O2 Saturation 92 L, ABG pCO2 78.3 H*, ABG pO2 66 L 06/07/17 13:26: VBG pH 7.44 H, VBG pO2 32, VBG O2 Sat (Calc) 58, VBG O2 Content TNP, VBG Base Excess > 30 H 06/07/17 13:31: VBG pH 7.45 H, VBG pO2 33, VBG O2 Sat (Calc) 61, VBG O2 Content TNP, VBG Base Excess > 30 H 06/08/17 06:05: WBC 11.2 H, RBC 4.04 L, Hgb 10.6 L, Hct 38.5, MCV 95.3, MCH 26.2 L, MCHC 27.5 L, RDW 16.3 H, RDW Differential 54.6 H, Plt Count 423, MPV 9.2, Immature Gran % (Auto) 0.400, Neut % (Auto) 84.7 H, Lymph % (Auto) 5.6 L, [place] % (Auto) 6.5, Eos % (Auto) 2.5, Baso % (Auto) 0.3, Absolute Neuts (auto) 9.5 H, Total Counted Not Reportable 06/08/17 06:05: Sodium 137, Potassium 3.6, Chloride 82 L, Carbon Dioxide > 45.0 H*, Anion Gap TNP, BUN 44 H, Creatinine 1.22 H, Est GFR (MDRD) Af Amer 56 L, Est GFR (MDRD) Non-Af 46 L, BUN/Creatinine Ratio 36.1 H, Glucose 166 H, Calcium 8.7 Rhythm: EKG: ECHO: Stress Test: Cardiac Cath: PCI: CT Surgery: Holter monitor: EPS: PPM: CXR: Chest CT Scan: Medical Necessity - Tobacco Use Smoking Status: Former smoker Tobacco Use: Non-smoker Assessment/Plan 1. Shortness of breath. The etiology of the above is likely multifactorial. She does have aortic stenosis but I do not think that it is severe based on the mean gradient. This was confirmed with a cardiac catheterization which demonstrated a mean gradient of approximately 20 mmHg. She did however have an elevated left ventricular end-diastolic pressure as well as pulmonary pressures in the mid 60s which correlated with the echocardiographic findings. My recommendation at this time would be to continue diuretic therapy but switch her from Bumex to Lasix and Aldactone. Salt restriction has also been advised. 2. Valvular heart disease She does not have evidence of severe aortic stenosis. This has been documented by echocardiographic as well as by cardiac catheterization. At this time I do not think there is a reason to pursue valve replacement. Her anemia probably falsely elevated her peak and mean valve gradient by echocardiogram. 3. Hypertension She does have a history of essential hypertension and my recommendation would be to continue her current medications maintaining her blood pressure around 100 systolic. 4. Severe anemia She does have severe anemia likely secondary to AV malformations. This may be also related to her aortic stenosis. After she is appropriately tuned up she may need to consider going on chronic iron therapy to maintain her hemoglobin. Hemoglobin appears to be doing much better. 5. The artery disease Her cardiac catheterization films were reviewed and were discussed as above. He demonstrated essentially normal coronary arteries. There is no significant ostial left main stenosis noted. Overall I suspect that her shortness of breath is multifactorial secondary to valvular heart disease, anemia, hypertension, obesity, and coronary artery disease. Thank you for allowing me to participate in the care of your patient. Please don't hesitate to call if any issues arise
--- NOTE | 2017-06-08 11:59 | PCM.PN.HOSP ---
Patient Problems: Active and Suspected Problems (Last Updated 05/30/17 @ 16:02 by David Montana MD) Acute on chronic respiratory failure with hypoxia and hypercapnia (Acute) Acute on chronic diastolic (congestive) heart failure (Acute) Vitals/I&O's: Vital Signs Temp Pulse Resp BP Pulse Ox 97.8 F 77 16 119/46 L 85 06/08/17 08:26 06/08/17 10:44 06/08/17 10:44 06/08/17 09:18 06/08/17 11:35 Oxygen Flow Rate (L/min) 5 Oxygen Delivery Method Nasal Cannula Weight: 112.2 kg Body Mass Index (BMI) 46.5 Intake and Output for Last 24 Hours 06/06/17 06/07/17 06/08/17 23:59 23:59 23:59 Intake Total 884.4 / 884.4 710.3 / 710.3 252 / 252 Output Total 3975 / 3975 1675 / 1675 750 / 750 Balance -3090.6 / -3090.6 -964.7 / -964.7 -498 / -498 Laboratory Results 06/07/17 13:22: Specimen Type ART, pH 7.49 H, Bicarbonate Actual 59.0 H, POC Total CO2 > 50, Base Excess > 30 H, O2 Saturation 92 L, ABG pCO2 78.3 H*, ABG pO2 66 L 06/07/17 13:26: Specimen Type KYLE, VBG pH 7.44 H, VBG pO2 32, VBG O2 Sat (Calc) 58, VBG O2 Content TNP, VBG Base Excess > 30 H, POC Mix VBG pCO2 Pt Tmp 88.2 H* 06/07/17 13:31: Specimen Type KYLE, VBG pH 7.45 H, VBG pO2 33, VBG O2 Sat (Calc) 61, VBG O2 Content TNP, VBG Base Excess > 30 H, POC Mix VBG pCO2 Pt Tmp 81.9 H* 06/07/17 15:37: POC Glucose 131 H 06/07/17 22:06: POC Glucose 296 H 06/08/17 06:05: WBC 11.2 H, RBC 4.04 L, Hgb 10.6 L, Hct 38.5, MCV 95.3, MCH 26.2 L, MCHC 27.5 L, RDW 16.3 H, RDW Differential 54.6 H, Plt Count 423, MPV 9.2, Immature Gran % (Auto) 0.400, Neut % (Auto) 84.7 H, Lymph % (Auto) 5.6 L, [place] % (Auto) 6.5, Eos % (Auto) 2.5, Baso % (Auto) 0.3, Absolute Neuts (auto) 9.5 H, Absolute Lymphs (auto) 0.62 L, Total Counted Not Reportable 06/08/17 06:05: Sodium 137, Potassium 3.6, Chloride 82 L, Carbon Dioxide > 45.0 H*, Anion Gap TNP, BUN 44 H, Creatinine 1.22 H, Estim Creat Clear Calc 36.00, Est GFR (MDRD) Af Amer 56 L, Est GFR (MDRD) Non-Af 46 L, BUN/Creatinine Ratio 36.1 H, Glucose 166 H, Calcium 8.7 06/08/17 06:50: POC Glucose 187 H Current Medications Acetaminophen (Tylenol) 650 mg PO Q6H PRN PRN PRN Reason: Mild Pain (scale 0-3)/T>100.7 Last Admin: 06/07/17 08:26 Dose: 650 mg Albuterol Sulfate (Ventolin Aerosols) 2.5 mg INHALATION Q2H PRN PRN PRN Reason: Shortness of breath, wheezing Albuterol/Ipratropium (Duoneb) 3 ml INHALATION Q4H.RT [facility] Last Admin: 06/08/17 10:44 Dose: 3 ml Atorvastatin Calcium (Lipitor) 10 mg PO QHS [facility] Last Admin: 06/07/17 22:07 Dose: 10 mg Budesonide (Pulmicort Aerosol) 0.5 mg INHALATION BID.RT [facility] Last Admin: 06/08/17 07:21 Dose: 0.5 mg Dextrose (D50w Syringe) 0 gm IV X1 PRN; Protocol PRN Reason: Hypoglycemia Escitalopram Oxalate (Lexapro) 10 mg PO DAILY [facility] Last Admin: 06/08/17 09:18 Dose: 10 mg Ferrous Sulfate (Ferrous Sulfate) 325 mg PO BIDCM [facility] Last Admin: 06/08/17 09:18 Dose: 325 mg Fluticasone Propionate (Flonase Nasal [place]) 1 spray NASAL BID [facility] Last Admin: 06/08/17 09:22 Dose: Not Given Furosemide (Lasix) 40 mg PO BID@1000,1800 [facility] Gabapentin (Neurontin) 200 mg PO QHS [facility] Last Admin: 06/07/17 22:07 Dose: 200 mg Glucagon () 1 mg IM .X1 PRN PRN Reason: Hypoglycemia Insulin Aspart (Novolog Flexpen (Bkc)) 0 units SC 0800,1200,1700,2200 [facility] PRN Reason: Protocol Last Admin: 06/08/17 09:19 Dose: 2 u Metoprolol Tartrate (Lopressor (Beta Jeffery)) 50 mg PO BID [facility] Last Admin: 06/08/17 09:18 Dose: 50 mg Ondansetron HCl (Zofran) 4 mg IV Q8H PRN PRN PRN Reason: Nausea Oxycodone HCl (Oxyir) 5 - 10 mg PO Q6H PRN PRN PRN Reason: SEVERE PAIN (6-10/10) Last Admin: 06/04/17 15:06 Dose: 5 mg Pantoprazole Sodium (Protonix) 20 mg PO DAILY [facility] Last Admin: 06/08/17 09:18 Dose: 20 mg Sodium Chloride () 5 - 30 ml IV UD PRN PRN Reason: SALINE FLUSH Last Admin: 06/08/17 09:14 Dose: 20 ml Spironolactone (Aldactone) 25 mg PO DAILY [facility] Trazodone HCl (Desyrel) 100 mg PO QHS PRN PRN PRN Reason: SLEEP Last Admin: 06/05/17 23:05 Dose: 100 mg Medical Necessity - Tobacco Use Smoking Status: Former smoker Tobacco Use: Non-smoker Assessment/Plan Active and Suspected Problems (Last Updated 05/30/17 @ 16:02 by David Montana MD) Acute on chronic respiratory failure with hypoxia and hypercapnia (Acute) Acute on chronic diastolic (congestive) heart failure (Acute)
[2017-06-08 13:06] LABS: Bedside Glucose 213 mg/dL (70-110)
[2017-06-08] MEDS: Spironolactone 25 MG Tablet PO (13:57)
[2017-06-08] MEDS: Furosemide 40 MG Tablet PO ×2 (13:57→17:40)
--- NOTE | 2017-06-08 15:51 | PCM.PN.HOSP ---
Patient Problems: Active and Suspected Problems (Last Updated 05/30/17 @ 16:02 by David Montana MD) Acute on chronic respiratory failure with hypoxia and hypercapnia (Acute) Acute on chronic diastolic (congestive) heart failure (Acute) Subjective: CC: Shortness of breath Objective: she reports that her Shortness of breath has improved with diuretic therapy. She denies any chest pain, purulent cough, fever or chills. Vitals/I&O's: Vital Signs Temp Pulse Resp BP Pulse Ox 98.0 F 81 16 117/79 94 06/08/17 12:00 06/08/17 14:53 06/08/17 14:53 06/08/17 12:00 06/08/17 12:00 Oxygen Flow Rate (L/min) 5 Oxygen Delivery Method Nasal Cannula Weight: 112.2 kg Body Mass Index (BMI) 46.5 Intake and Output for Last 24 Hours 06/06/17 06/07/17 06/08/17 23:59 23:59 23:59 Intake Total 884.4 / 884.4 710.3 / 710.3 552 / 552 Output Total 3975 / 3975 1675 / 1675 950 / 950 Balance -3090.6 / -3090.6 -964.7 / -964.7 -398 / -398 General: Alert, Oriented x3 Oral: Moist Mucosa Neck: Supple Lungs: Clear to auscultation, No wheeze Cardiovascular: Normal S1, Normal S2 Abdomen: Bowel Sounds Present, Non Tender Extremities: Edema Laboratory Results 06/07/17 13:26: VBG O2 Content TNP 06/07/17 13:31: VBG O2 Content [facility] 06/07/17 22:06: POC Glucose 296 H 06/08/17 06:05: WBC 11.2 H, RBC 4.04 L, Hgb 10.6 L, Hct 38.5, MCV 95.3, MCH 26.2 L, MCHC 27.5 L, RDW 16.3 H, RDW Differential 54.6 H, Plt Count 423, MPV 9.2, Immature Gran % (Auto) 0.400, Neut % (Auto) 84.7 H, Lymph % (Auto) 5.6 L, [place] % (Auto) 6.5, Eos % (Auto) 2.5, Baso % (Auto) 0.3, Absolute Neuts (auto) 9.5 H, Absolute Lymphs (auto) 0.62 L, Total Counted Not Reportable 06/08/17 06:05: Sodium 137, Potassium 3.6, Chloride 82 L, Carbon Dioxide > 45.0 H*, Anion Gap TNP, BUN 44 H, Creatinine 1.22 H, Estim Creat Clear Calc 36.00, Est GFR (MDRD) Af Amer 56 L, Est GFR (MDRD) Non-Af 46 L, BUN/Creatinine Ratio 36.1 H, Glucose 166 H, Calcium 8.7 06/08/17 06:50: POC Glucose 187 H 06/08/17 12:58: POC Glucose 213 H Current Medications Acetaminophen (Tylenol) 650 mg PO Q6H PRN PRN PRN Reason: Mild Pain (scale 0-3)/T>100.7 Last Admin: 06/07/17 08:26 Dose: 650 mg Albuterol Sulfate (Ventolin Aerosols) 2.5 mg INHALATION Q2H PRN PRN PRN Reason: Shortness of breath, wheezing Albuterol/Ipratropium (Duoneb) 3 ml INHALATION Q4H.RT [facility] Last Admin: 06/08/17 14:52 Dose: 3 ml Atorvastatin Calcium (Lipitor) 10 mg PO QHS [facility] Last Admin: 06/07/17 22:07 Dose: 10 mg Budesonide (Pulmicort Aerosol) 0.5 mg INHALATION BID.RT [facility] Last Admin: 06/08/17 07:21 Dose: 0.5 mg Dextrose (D50w Syringe) 0 gm IV X1 PRN; Protocol PRN Reason: Hypoglycemia Escitalopram Oxalate (Lexapro) 10 mg PO DAILY [facility] Last Admin: 06/08/17 09:18 Dose: 10 mg Ferrous Sulfate (Ferrous Sulfate) 325 mg PO BIDCM [facility] Last Admin: 06/08/17 09:18 Dose: 325 mg Fluticasone Propionate (Flonase Nasal [place]) 1 spray NASAL BID [facility] Last Admin: 06/08/17 09:22 Dose: Not Given Furosemide (Lasix) 40 mg PO BID@1000,1800 [facility] Last Admin: 06/08/17 13:57 Dose: 40 mg Gabapentin (Neurontin) 200 mg PO QHS [facility] Last Admin: 06/07/17 22:07 Dose: 200 mg Glucagon () 1 mg IM .X1 PRN PRN Reason: Hypoglycemia Insulin Aspart (Novolog Flexpen (Bkc)) 0 units SC 0800,1200,1700,2200 [facility]ER PRN Reason: Protocol Last Admin: 06/08/17 13:58 Dose: 4 u Metoprolol Tartrate (Lopressor (Beta Jeffery)) 50 mg PO BID [facility] Last Admin: 06/08/17 09:18 Dose: 50 mg Ondansetron HCl (Zofran) 4 mg IV Q8H PRN PRN PRN Reason: Nausea Oxycodone HCl (Oxyir) 5 - 10 mg PO Q6H PRN PRN PRN Reason: SEVERE PAIN (6-10/10) Last Admin: 06/04/17 15:06 Dose: 5 mg Pantoprazole Sodium (Protonix) 20 mg PO DAILY [facility] Last Admin: 06/08/17 09:18 Dose: 20 mg Sodium Chloride () 5 - 30 ml IV UD PRN PRN Reason: SALINE FLUSH Last Admin: 06/08/17 09:14 Dose: 20 ml Spironolactone (Aldactone) 25 mg PO DAILY [facility] Last Admin: 06/08/17 13:57 Dose: 25 mg Trazodone HCl (Desyrel) 100 mg PO QHS PRN PRN PRN Reason: SLEEP Last Admin: 06/05/17 23:05 Dose: 100 mg Medical Necessity - Tobacco Use Smoking Status: Former smoker Tobacco Use: Non-smoker Assessment/Plan Active and Suspected Problems (Last Updated 05/30/17 @ 16:02 by David Montana MD) Acute on chronic respiratory failure with hypoxia and hypercapnia (Acute) Acute on chronic diastolic (congestive) heart failure (Acute) 1. Acute on chronic hypoxic and hypercapnic respiratory ; she is on supplemental oxygen and we will wean as tolerated. 2. Acute heart failure with preserved left ventricular function; the patient has been changed to PO Lasix and Aldactone. 3. COPD without acute exacerbation/ pulmonary fibrosis; will continue on bronchodilators as ordered. Pulmonary input noted 4. Pulmonary hypertension; on diuretics and supplemental oxygen. 4. Acute on chronic normocytic anemia ; she is s/p 4 units PRBCs during this admission. 5. Moderate to severe aortic stenosis; due to multiple medical issues valve replacement is not recommended at this time. 6. DM 2 ; she is a regular insulin sliding scale. 7. essential Hypertension; this is controlled. 10. History of GI AVM; stable with no signs of GI bleed. 11. TRI/OHS; HS BiPAP 12. DVT prophylaxis with SCDs. Code Visit Inpatient E&M: 86715 Subs Hosp L2
--- NOTE | 2017-06-08 15:57 | PN_ITS ---
Patient Problems: Active and Suspected Problems (Last Updated 05/30/17 @ 16:02 by David Montana MD) Acute on chronic respiratory failure with hypoxia and hypercapnia (Acute) Acute on chronic diastolic (congestive) heart failure (Acute) Subjective: CC: Shortness of breath Objective: she reports that her Shortness of breath has improved with diuretic therapy. She denies any chest pain, purulent cough, fever or chills. Vitals/I&O's: Vital Signs Temp Pulse Resp BP Pulse Ox 98.0 F 81 16 117/79 94 06/08/17 12:00 06/08/17 14:53 06/08/17 14:53 06/08/17 12:00 06/08/17 12:00 Oxygen Flow Rate (L/min) 5 Oxygen Delivery Method Nasal Cannula Weight: 112.2 kg Body Mass Index (BMI) 46.5 Intake and Output for Last 24 Hours 06/06/17 06/07/17 06/08/17 23:59 23:59 23:59 Intake Total 884.4 / 884.4 710.3 / 710.3 552 / 552 Output Total 3975 / 3975 1675 / 1675 950 / 950 Balance -3090.6 / -3090.6 -964.7 / -964.7 -398 / -398 General: Alert, Oriented x3 Oral: Moist Mucosa Neck: Supple Lungs: Clear to auscultation, No wheeze Cardiovascular: Normal S1, Normal S2 Abdomen: Bowel Sounds Present, Non Tender Extremities: Edema Laboratory Results 06/07/17 13:26: VBG O2 Content TNP 06/07/17 13:31: VBG O2 Content [facility] 06/07/17 22:06: POC Glucose 296 H 06/08/17 06:05: WBC 11.2 H, RBC 4.04 L, Hgb 10.6 L, Hct 38.5, MCV 95.3, MCH 26.2 L, MCHC 27.5 L, RDW 16.3 H, RDW Differential 54.6 H, Plt Count 423, MPV 9.2 , Immature Gran % (Auto) 0.400, Neut % (Auto) 84.7 H, Lymph % (Auto) 5.6 L, [place] % (Auto) 6.5, Eos % (Auto) 2.5, Baso % (Auto) 0.3, Absolute Neuts (auto) 9.5 H, Absolute Lymphs (auto) 0.62 L, Total Counted Not Reportable 06/08/17 06:05: Sodium 137, Potassium 3.6, Chloride 82 L, Carbon Dioxide > 45.0 H*, Anion Gap TNP, BUN 44 H, Creatinine 1.22 H, Estim Creat Clear Calc 36.00, Est GFR (MDRD) Af Amer 56 L, Est GFR (MDRD) Non-Af 46 L, BUN/Creatinine Ratio 36.1 H, Glucose 166 H, Calcium 8.7 06/08/17 06:50: POC Glucose 187 H 06/08/17 12:58: POC Glucose 213 H Current Medications Acetaminophen (Tylenol) 650 mg PO Q6H PRN PRN PRN Reason: Mild Pain (scale 0-3)/T>100.7 Last Admin: 06/07/17 08:26 Dose: 650 mg Albuterol Sulfate (Ventolin Aerosols) 2.5 mg INHALATION Q2H PRN PRN PRN Reason: Shortness of breath, wheezing Albuterol/Ipratropium (Duoneb) 3 ml INHALATION Q4H.RT [facility] Last Admin: 06/08/17 14:52 Dose: 3 ml Atorvastatin Calcium (Lipitor) 10 mg PO QHS [facility] Last Admin: 06/07/17 22:07 Dose: 10 mg Budesonide (Pulmicort Aerosol) 0.5 mg INHALATION BID.RT [facility] Last Admin: 06/08/17 07:21 Dose: 0.5 mg Dextrose (D50w Syringe) 0 gm IV X1 PRN; Protocol PRN Reason: Hypoglycemia Escitalopram Oxalate (Lexapro) 10 mg PO DAILY [facility] Last Admin: 06/08/17 09:18 Dose: 10 mg Ferrous Sulfate (Ferrous Sulfate) 325 mg PO BIDCM [facility] Last Admin: 06/08/17 09:18 Dose: 325 mg Fluticasone Propionate (Flonase Nasal [place]) 1 spray NASAL BID [facility] Last Admin: 06/08/17 09:22 Dose: Not Given Furosemide (Lasix) 40 mg PO BID@1000,1800 [facility] Last Admin: 06/08/17 13:57 Dose: 40 mg Gabapentin (Neurontin) 200 mg PO QHS [facility] Last Admin: 06/07/17 22:07 Dose: 200 mg Glucagon () 1 mg IM .X1 PRN PRN Reason: Hypoglycemia Insulin Aspart (Novolog Flexpen (Bkc)) 0 units SC 0800,1200,1700,2200 [facility]INER PRN Reason: Protocol Last Admin: 06/08/17 13:58 Dose: 4 u Metoprolol Tartrate (Lopressor (Beta Jeffery)) 50 mg PO BID [facility] Last Admin: 06/08/17 09:18 Dose: 50 mg Ondansetron HCl (Zofran) 4 mg IV Q8H PRN PRN PRN Reason: Nausea Oxycodone HCl (Oxyir) 5 - 10 mg PO Q6H PRN PRN PRN Reason: SEVERE PAIN (6-10/10) Last Admin: 06/04/17 15:06 Dose: 5 mg Pantoprazole Sodium (Protonix) 20 mg PO DAILY [facility] Last Admin: 06/08/17 09:18 Dose: 20 mg Sodium Chloride () 5 - 30 ml IV UD PRN PRN Reason: SALINE FLUSH Last Admin: 06/08/17 09:14 Dose: 20 ml Spironolactone (Aldactone) 25 mg PO DAILY [facility] Last Admin: 06/08/17 13:57 Dose: 25 mg Trazodone HCl (Desyrel) 100 mg PO QHS PRN PRN PRN Reason: SLEEP Last Admin: 06/05/17 23:05 Dose: 100 mg Medical Necessity - Tobacco Use Smoking Status: Former smoker Tobacco Use: Non-smoker Assessment/Plan Active and Suspected Problems (Last Updated 05/30/17 @ 16:02 by David Montana MD) Acute on chronic respiratory failure with hypoxia and hypercapnia (Acute) Acute on chronic diastolic (congestive) heart failure (Acute) 1. Acute on chronic hypoxic and hypercapnic respiratory ; she is on supplemental oxygen and we will wean as tolerated. 2. Acute heart failure with preserved left ventricular function; the patient has been changed to PO Lasix and Aldactone. 3. COPD without acute exacerbation/ pulmonary fibrosis; will continue on bronchodilators as ordered. Pulmonary input noted 4. Pulmonary hypertension; on diuretics and supplemental oxygen. 4. Acute on chronic normocytic anemia ; she is s/p 4 units PRBCs during this admission. 5. Moderate to severe aortic stenosis; due to multiple medical issues valve replacement is not recommended at this time. 6. DM 2 ; she is a regular insulin sliding scale. 7. essential Hypertension; this is controlled. 10. History of GI AVM; stable with no signs of GI bleed. 11. TRI/OHS; HS BiPAP 12. DVT prophylaxis with SCDs. Code Visit Inpatient E&M: 49917 Subs Hosp L2
[2017-06-08 17:21] LABS: Bedside Glucose 193 mg/dL (70-110)
[2017-06-08] MEDS: Fluticasone 0.05% 1 SPRAY NASAL.SRY NASAL (21:29)
[2017-06-08] MEDS: Gabapentin 100 MG Capsule 200 MG PO (21:29)
[2017-06-08] MEDS: Atorvastatin Calcium 10 MG Tablet PO (21:30)
[2017-06-08 21:31] LABS: Bedside Glucose 251 mg/dL (70-110)
--- NOTE | 2017-06-08 23:00 | CPS ---
Pt refused to wear BIPAP tonight. Pt stated the mask made her feel smothered and she became anxious when she couldn't get it off. Pt said she is used to a nasal mask. A nasal mask was offered and pt still refused to wear BIPAP. Pt states she will wear hers when [facility] gets [facility].
[2017-06-09] VITALS (18 sets, daily range): BP systolic 116–151; BP diastolic 51–72; PULSE 78–99; RESP 16–20; TEMP 36.8–37; O2SAT 92–99
[2017-06-09] MEDS: Ipratropium/Albuterol Sulfate 3 ML AMPUL.NEB INHALATION ×6 (03:31→23:28)
[2017-06-09 03:36] LABS: Bedside Glucose 185 mg/dL (70-110)
--- NOTE | 2017-06-09 06:23 | NURSING ---
This RN reviewed charting completed by Silverio Pool, nursing assoc. This RN agrees with charting.
[2017-06-09 06:56] LABS: Bedside Glucose 247 mg/dL (70-110)
[2017-06-09] MEDS: Budesonide Respules 0.5 MG/2 ML AMPUL.NEB. INHALATION ×2 (07:39→19:29)
[2017-06-09 08:01] LABS: Bedside Glucose 237 mg/dL (70-110)
[2017-06-09 08:05] LABS: BUN 52 mg/dL (7-18); BUN/Creat Ratio 36.9 RATIO (10-20); Calcium,Total 8.9 mg/dL (8.5-10.1); Carbon Dioxide > 45.0 mmol/L (21.0-32.0); Chloride 82 mmol/L (98-107); Creatinine, Serum 1.41 mg/dL (0.55-1.02); EST Glomerular Filtration Rate 39 mL/min (>60); Est Glom Filt Rate - Afr Amer 48 mL/min (>60); Estimated Creatinine Clearance 31.15 ml/min; Glucose 243 mg/dL (74-106); Potassium 3.2 mmol/L (3.5-5.1); Sodium Level 135 mmol/L (136-145)
--- NOTE | 2017-06-09 08:13 | PCM.PROGNOTE ---
Patient Problems: Active and Suspected Problems (Last Updated 05/30/17 @ 16:02 by David Montana MD) Acute on chronic respiratory failure with hypoxia and hypercapnia (Acute) Acute on chronic diastolic (congestive) heart failure (Acute) Subjective: Patient did well overnight. No acute issues were reported. Patient reports subjective improvement in overall condition. Patient is now able to ambulate to the bathroom independently. No fevers or chills were reported. Patient's blood sugars have been slightly increased over the last 24 hours. - Physical Exam General: Alert, Oriented x3, Cooperative, No apparent distress, - - Morbidly obese. No conversational dyspnea noted. HEENT: Atraumatic, PERRLA, EOMI, Normocephalic, - - No scleral icterus or injection noted. Oral: Moist Mucosa, No Gingival or Mucosal Lesions/ Ulcerations Neck: Supple, No Nodes, Trachea Midline, JVD, Right Lungs: No rhonchi, No wheeze, Diminished, Rales, - - Symmetric expansion. No dullness to percussion. Cardiovascular: Regular rate, Regular Rhythm, Normal S1, Normal S2, Murmur, No rub noted, No Gallop Abdomen: Bowel Sounds Present, Soft, Non Tender, Non-Distended, Obese Extremities: No cyanosis, Capillary Refill Less than 3 Seconds, Clubbing, Edema - Significantly improved compared to previous Skin: - - Venous stasis changes. No significant change compared to previous Musculoskeletal: No Tenderness to Palpation of Joints or Extremities, No Muscle Wasting Lymphatic: No Cervical, Supraclavicular, or Inguinal Adenopathy Neurological: Cranial nerves II-XII grossly intact, Neuro grossly intact, Motor Exam 5/5 strength throughout Psych/Mental Status: Alert and oriented to time, place, person, mood and affect Vital Signs Temp Pulse Resp BP Pulse Ox 36.8 C 99 18 151/72 H 92 06/09/17 03:27 06/09/17 07:32 06/09/17 03:31 06/09/17 03:27 06/09/17 03:27 Oxygen Flow Rate (L/min) 5 Oxygen Delivery Method Nasal Cannula Weight: 112.2 kg Body Mass Index (BMI) 46.5 Intake and Output for Last 24 Hours 06/07/17 06/08/17 06/09/17 23:59 23:59 23:59 Intake Total 710.3 / 710.3 772 / 772 460 / 460 Output Total 1675 / 1675 950 / 950 Balance -964.7 / -964.7 -178 / -178 460 / 460 Laboratory Tests Past 24 Hrs 06/09/17 07:20 Sodium 135 L Potassium 3.2 L Chloride 82 L Carbon Dioxide > 45.0 H* Anion Gap TNP BUN 52 H Creatinine 1.41 H Estim Creat Clear Calc 31.15 Est GFR (MDRD) Af Amer 48 L Est GFR (MDRD) Non-Af 39 L BUN/Creatinine Ratio 36.9 H Glucose 243 H Calcium 8.9 POC Glucose 06/09/17 06/09/17 06/09/17 07:53 06:50 03:27 POC Glucose 237 H 247 H 185 H 06/08/17 06/08/17 06/08/17 21:24 17:14 12:58 POC Glucose 251 H 193 H 213 H Medical Necessity - Tobacco Use Smoking Status: Former smoker Tobacco Use: Non-smoker Assessment/Plan Active and Suspected Problems (Last Updated 05/30/17 @ 16:02 by David Montana MD) Acute on chronic respiratory failure with hypoxia and hypercapnia (Acute) Acute on chronic diastolic (congestive) heart failure (Acute) RECOMMENDATIONS: 1. Increase activity as tolerated 2. Sinew with current diuretic therapy from my perspective 3. Wean supplemental oxygen. The patient needs to be maintained 88-92%, to prevent paradoxical CO2 retention. 4. Continue BiPAP with all sleep 5. Walking oximetry prior to discharge 6. Await cardiology recommendations 7. Encourage incentive spirometer use and mobilize patient as tolerated 8. Follow-up pulmonary as previously scheduled upon discharge IMPRESSIONS: 1. Acute on chronic hypoxemic and hypercarbic respiratory failure Patient appears to be responding to diuretic therapy. Patient has had a slight bump in creatinine. This may be secondary to contrast versus diuretic therapy. Patient's oxygenation is much improved. Likely okay to transition to baseline diuretic therapy from my perspective. Patient will need a walking oximetry prior to discharge. Patient did have an elevated pulmonary capillary wedge pressure on right heart catheterization indicating pulmonary hypertension secondary to diastolic dysfunction. Patient does appear to understand the pathophysiology, but compliance with recommendations as an outpatient has been challenging in the past. Likely okay to discharge from a pulmonary perspective if saturations can be controlled with ambulation on 6 L or less. 2. Aortic stenosis/diastolic heart failure with exacerbation/pulmonary hypertension/coronary artery disease Continue current medical management per cardiology recommendations. Continue diuresis as tolerated. Await cardiology recommendations for aortic valve moving forward. Stressed to the patient the importance of daily weights and maintenance of a low-salt diet. This note was generated with [employer] dictation software. It may contain incorrect words, spelling, and punctuation that were not noted in checking the note before signing. Code Visit Inpatient E&M: 55631 Subs Hosp L2
--- NOTE | 2017-06-09 08:56 | PN.CARD_ITS ---
Subjectve: Patient seen in the PCU and evaluated. Objective: Vital Signs Temp Pulse Resp BP Pulse Ox 98.2 F 90 16 151/72 H 93 06/09/17 03:27 06/09/17 07:39 06/09/17 07:39 06/09/17 03:27 06/09/17 07:39 Oxygen Flow Rate (L/min) 5 Oxygen Delivery Method Nasal Cannula Weight: 247 lb 5.738 oz Body Mass Index (BMI) 46.5 Intake and Output for Last 24 Hours 06/07/17 06/08/17 06/09/17 23:59 23:59 23:59 Intake Total 710.3 / 710.3 772 / 772 460 / 460 Output Total 1675 / 1675 950 / 950 Balance -964.7 / -964.7 -178 / -178 460 / 460 General: Awake, Alert, Oriented x 3 HEENT: PERRL, EOMI, Sclera Non Icteric Neck: Supple, Good ROM, No Lymph Node Enlargement Lungs: Diminished Param Bases Cardiovascular: Regular Rhythm, Normal S1, Normal S2, No Murmurs, No Rubs, No Gallops Murmur Murmur: Grade 2/6, Early Systolic, Crescendo-Decrescendo, LLSB Vascular: No Carotid Bruits, Normal Femoral Pulses, Normal Radial Pulses, Normal Dorsalis Pedal Pulse, Normal Posterior Tibial Pulses Abdomen: Bowel Sounds Present, Soft, Non Tender, No HSM, No Organomegaly Extremities: No Cyanosis, No Clubbing, No edema Neurological: No Focal Motor or Sensory Deficit 06/09/17 07:20: Sodium 135 L, Potassium 3.2 L, Chloride 82 L, Carbon Dioxide > 45.0 H*, Anion Gap TNP, BUN 52 H, Creatinine 1.41 H, Est GFR (MDRD) Af Amer 48 L , Est GFR (MDRD) Non-Af 39 L, BUN/Creatinine Ratio 36.9 H, Glucose 243 H, Calcium 8.9 Rhythm: EKG: ECHO: Stress Test: Cardiac Cath: PCI: CT Surgery: Holter monitor: EPS: PPM: CXR: Chest CT Scan: Medical Necessity - Tobacco Use Smoking Status: Former smoker Tobacco Use: Non-smoker Assessment/Plan 1. Shortness of breath. The etiology of the above is likely multifactorial. She does have aortic stenosis but not severe based on the mean gradient. This was confirmed with a cardiac catheterization which demonstrated a mean gradient of approximately 20 mmHg. She did however have an elevated left ventricular end-diastolic pressure as well as pulmonary pressures in the mid 60s which correlated with the echocardiographic findings. My recommendation at this time would be to continue diuretic therapy but switch her from Bumex to Lasix and Aldactone. Salt restriction has also been advised. She has lost about 25 pounds during this admission.!. 2. Valvular heart disease She does not have evidence of severe aortic stenosis. This has been documented by echocardiographic as well as by cardiac catheterization. At this time I do not think there is a reason to pursue valve replacement. Her anemia probably falsely elevated her peak and mean valve gradient by echocardiogram. 3. Hypertension She does have a history of essential hypertension and my recommendation would be to continue her current medications maintaining her blood pressure around 100 systolic. 4. Severe anemia She does have severe anemia likely secondary to AV malformations. This may be also related to her aortic stenosis. After she is appropriately tuned up she may need to consider going on chronic iron therapy to maintain her hemoglobin. Hemoglobin appears to be doing much better. 5. The artery disease Her cardiac catheterization films were reviewed and were discussed as above. He demonstrated essentially normal coronary arteries. There is no significant ostial left main stenosis noted. Overall I suspect that her shortness of breath is multifactorial secondary to valvular heart disease, anemia, hypertension, obesity, and coronary artery disease. Her electrolytes with her potassium needs to be corrected. She is on home oxygen but from my standpoint she is probably ready to be discharged soon for outpatient follow-up. Thank you for allowing me to participate in the care of your patient. Please don't hesitate to call if any issues arise
[2017-06-09] MEDS: Ferrous Sulfate 325 MG Tablet PO ×2 (10:00→17:58)
[2017-06-09] MEDS: Fluticasone 0.05% 1 SPRAY NASAL.SRY NASAL ×2 (10:02→22:18)
[2017-06-09] MEDS: Spironolactone 25 MG Tablet PO (10:02)
[2017-06-09] MEDS: Metoprolol Tartrate 50 MG Tablet PO ×2 (10:02→22:19)
[2017-06-09] MEDS: Furosemide 40 MG Tablet PO ×2 (10:02→17:58)
[2017-06-09] MEDS: Escitalopram Oxalate 10 MG Tablet PO (10:02)
[2017-06-09] MEDS: Pantoprazole Sodium 20 MG Tablet PO (10:03)
[2017-06-09 11:16] LABS: Bedside Glucose 280 mg/dL (70-110)
--- NOTE | 2017-06-09 15:40 | PCM.PN.HOSP ---
Patient Problems: Active and Suspected Problems (Last Updated 05/30/17 @ 16:02 by David Montana MD) Acute on chronic respiratory failure with hypoxia and hypercapnia (Acute) Acute on chronic diastolic (congestive) heart failure (Acute) Subjective: CC: Progressive dyspnea Objective: This is a 66-year-old female with medical problems including COPD , pulmonary fibrosis, congestive heart failure, pulmonary hypertension, moderate to severe aortic stenosis who presented with progressive dyspnea and was found to have pulmonary edema on chest x-ray, she was placed on IV Lasix and she has had good diuresis but still remained markedly dyspneic. Cardiology was consulted and she underwent both left and right heart catheterization. LHC showed minimal coronary disease was a right heart catheterization with significant pulmonary hypertension. Her dyspnea is improving albeit slowly, she denies any chest pain, fever chills cough or hemoptysis. No acute events reported overnight. Vitals/I&O's: Vital Signs Temp Pulse Resp BP Pulse Ox 98.6 F 80 16 126/57 H 97 06/09/17 09:20 06/09/17 15:03 06/09/17 14:43 06/09/17 10:02 06/09/17 09:20 Oxygen Flow Rate (L/min) 5 Oxygen Delivery Method Nasal Cannula Weight: 112.2 kg Body Mass Index (BMI) 46.5 Intake and Output for Last 24 Hours 06/07/17 06/08/17 06/09/17 23:59 23:59 23:59 Intake Total 710.3 / 710.3 772 / 772 680 / 680 Output Total 1675 / 1675 950 / 950 Balance -964.7 / -964.7 -178 / -178 680 / 680 Laboratory Results 06/08/17 17:14: POC Glucose 193 H 06/08/17 21:24: POC Glucose 251 H 06/09/17 03:27: POC Glucose 185 H 06/09/17 06:50: POC Glucose 247 H 06/09/17 07:20: Sodium 135 L, Potassium 3.2 L, Chloride 82 L, Carbon Dioxide > 45.0 H*, Anion Gap TNP, BUN 52 H, Creatinine 1.41 H, Estim Creat Clear Calc 31.15, Est GFR (MDRD) Af Amer 48 L, Est GFR (MDRD) Non-Af 39 L, BUN/Creatinine Ratio 36.9 H, Glucose 243 H, Calcium 8.9 06/09/17 07:53: POC Glucose 237 H 06/09/17 11:06: POC Glucose 280 H Current Medications Acetaminophen (Tylenol) 650 mg PO Q6H PRN PRN PRN Reason: Mild Pain (scale 0-3)/T>100.7 Last Admin: 06/07/17 08:26 Dose: 650 mg Albuterol Sulfate (Ventolin Aerosols) 2.5 mg INHALATION Q2H PRN PRN PRN Reason: Shortness of breath, wheezing Albuterol/Ipratropium (Duoneb) 3 ml INHALATION Q4H.RT [facility] Last Admin: 06/09/17 14:43 Dose: 3 ml Atorvastatin Calcium (Lipitor) 10 mg PO QHS [facility] Last Admin: 06/08/17 21:30 Dose: 10 mg Budesonide (Pulmicort Aerosol) 0.5 mg INHALATION BID.RT [facility] Last Admin: 06/09/17 07:39 Dose: 0.5 mg Dextrose (D50w Syringe) 0 gm IV X1 PRN; Protocol PRN Reason: Hypoglycemia Escitalopram Oxalate (Lexapro) 10 mg PO DAILY [facility] Last Admin: 06/09/17 10:02 Dose: 10 mg Ferrous Sulfate (Ferrous Sulfate) 325 mg PO BIDCM [facility] Last Admin: 06/09/17 10:00 Dose: 325 mg Fluticasone Propionate (Flonase Nasal [place]) 1 spray NASAL BID [facility] Last Admin: 06/09/17 10:02 Dose: 1 spray Furosemide (Lasix) 40 mg PO BID@1000,1800 [facility] Last Admin: 06/09/17 10:02 Dose: 40 mg Gabapentin (Neurontin) 200 mg PO QHS [facility] Last Admin: 06/08/17 21:29 Dose: 200 mg Glucagon () 1 mg IM .X1 PRN PRN Reason: Hypoglycemia Insulin Aspart (Novolog Flexpen (Bkc)) 0 units SC 0800,1200,1700,2200 [facility] PRN Reason: Protocol Last Admin: 06/09/17 12:12 Dose: 6 u Metoprolol Tartrate (Lopressor (Beta [place])) 50 mg PO BID [facility] Last Admin: 06/09/17 10:02 Dose: 50 mg Ondansetron HCl (Zofran) 4 mg IV Q8H PRN PRN PRN Reason: Nausea Oxycodone HCl (Oxyir) 5 - 10 mg PO Q6H PRN PRN PRN Reason: SEVERE PAIN (6-10/10) Last Admin: 06/04/17 15:06 Dose: 5 mg Pantoprazole Sodium (Protonix) 20 mg PO DAILY [facility] Last Admin: 06/09/17 10:03 Dose: 20 mg Sodium Chloride () 5 - 30 ml IV UD PRN PRN Reason: SALINE FLUSH Last Admin: 06/08/17 21:28 Dose: 10 ml Spironolactone (Aldactone) 25 mg PO DAILY [facility] Last Admin: 06/09/17 10:02 Dose: 25 mg Trazodone HCl (Desyrel) 100 mg PO QHS PRN PRN PRN Reason: SLEEP Last Admin: 06/05/17 23:05 Dose: 100 mg Medical Necessity - Tobacco Use Smoking Status: Former smoker Tobacco Use: Non-smoker Assessment/Plan Active and Suspected Problems (Last Updated 05/30/17 @ 16:02 by David Montana MD) Acute on chronic respiratory failure with hypoxia and hypercapnia (Acute) Acute on chronic diastolic (congestive) heart failure (Acute) 1. Acute on chronic hypoxic and hypercapnic respiratory ; multifactorial, she is on supplemental oxygen and we will wean as tolerated. 2. Acute heart failure with preserved left ventricular function; the patient has been changed to PO Lasix and Aldactone. 3. COPD without acute exacerbation/ pulmonary fibrosis; will continue on bronchodilators as ordered. Pulmonary input noted 4. Pulmonary hypertension; on diuretics and supplemental oxygen. 4. Acute on chronic normocytic anemia ; she received 4 units of packed RBCs during this admission.. 5. Aortic stenosis; due to multiple medical issues valve replacement is not considered at this time. 6. DM 2 ; she is a regular insulin sliding scale. 7. essential Hypertension; this is controlled. 10. History of GI AVM; stable with no signs of GI bleed. 11. TRI/OHS; HS BiPAP 12 Disposition; the patient is awaiting discharge to [facility] 13. DVT prophylaxis with SCDs.
--- NOTE | 2017-06-09 15:43 | PN_ITS ---
Patient Problems: Active and Suspected Problems (Last Updated 05/30/17 @ 16:02 by David Montana MD) Acute on chronic respiratory failure with hypoxia and hypercapnia (Acute) Acute on chronic diastolic (congestive) heart failure (Acute) Subjective: CC: Progressive dyspnea Objective: This is a 66-year-old female with medical problems including COPD , pulmonary fibrosis, congestive heart failure, pulmonary hypertension, moderate to severe aortic stenosis who presented with progressive dyspnea and was found to have pulmonary edema on chest x-ray, she was placed on IV Lasix and she has had good diuresis but still remained markedly dyspneic. Cardiology was consulted and she underwent both left and right heart catheterization. LHC showed minimal coronary disease was a right heart catheterization with significant pulmonary hypertension. Her dyspnea is improving albeit slowly, she denies any chest pain, fever chills cough or hemoptysis. No acute events reported overnight. Vitals/I&O's: Vital Signs Temp Pulse Resp BP Pulse Ox 98.6 F 80 16 126/57 H 97 06/09/17 09:20 06/09/17 15:03 06/09/17 14:43 06/09/17 10:02 06/09/17 09:20 Oxygen Flow Rate (L/min) 5 Oxygen Delivery Method Nasal Cannula Weight: 112.2 kg Body Mass Index (BMI) 46.5 Intake and Output for Last 24 Hours 06/07/17 06/08/17 06/09/17 23:59 23:59 23:59 Intake Total 710.3 / 710.3 772 / 772 680 / 680 Output Total 1675 / 1675 950 / 950 Balance -964.7 / -964.7 -178 / -178 680 / 680 Laboratory Results 06/08/17 17:14: POC Glucose 193 H 06/08/17 21:24: POC Glucose 251 H 06/09/17 03:27: POC Glucose 185 H 06/09/17 06:50: POC Glucose 247 H 06/09/17 07:20: Sodium 135 L, Potassium 3.2 L, Chloride 82 L, Carbon Dioxide > 45.0 H*, Anion Gap TNP, BUN 52 H, Creatinine 1.41 H, Estim Creat Clear Calc 31.15, Est GFR (MDRD) Af Amer 48 L, Est GFR (MDRD) Non-Af 39 L, BUN/Creatinine Ratio 36.9 H, Glucose 243 H, Calcium 8.9 06/09/17 07:53: POC Glucose 237 H 06/09/17 11:06: POC Glucose 280 H Current Medications Acetaminophen (Tylenol) 650 mg PO Q6H PRN PRN PRN Reason: Mild Pain (scale 0-3)/T>100.7 Last Admin: 06/07/17 08:26 Dose: 650 mg Albuterol Sulfate (Ventolin Aerosols) 2.5 mg INHALATION Q2H PRN PRN PRN Reason: Shortness of breath, wheezing Albuterol/Ipratropium (Duoneb) 3 ml INHALATION Q4H.RT [facility] Last Admin: 06/09/17 14:43 Dose: 3 ml Atorvastatin Calcium (Lipitor) 10 mg PO QHS [facility] Last Admin: 06/08/17 21:30 Dose: 10 mg Budesonide (Pulmicort Aerosol) 0.5 mg INHALATION BID.RT [facility] Last Admin: 06/09/17 07:39 Dose: 0.5 mg Dextrose (D50w Syringe) 0 gm IV X1 PRN; Protocol PRN Reason: Hypoglycemia Escitalopram Oxalate (Lexapro) 10 mg PO DAILY [facility] Last Admin: 06/09/17 10:02 Dose: 10 mg Ferrous Sulfate (Ferrous Sulfate) 325 mg PO BIDCM [facility] Last Admin: 06/09/17 10:00 Dose: 325 mg Fluticasone Propionate (Flonase Nasal [place]) 1 spray NASAL BID [facility] Last Admin: 06/09/17 10:02 Dose: 1 spray Furosemide (Lasix) 40 mg PO BID@1000,1800 [facility] Last Admin: 06/09/17 10:02 Dose: 40 mg Gabapentin (Neurontin) 200 mg PO QHS [facility] Last Admin: 06/08/17 21:29 Dose: 200 mg Glucagon () 1 mg IM .X1 PRN PRN Reason: Hypoglycemia Insulin Aspart (Novolog Flexpen (Bkc)) 0 units SC 0800,1200,1700,2200 [facility] PRN Reason: Protocol Last Admin: 06/09/17 12:12 Dose: 6 u Metoprolol Tartrate (Lopressor (Beta [place])) 50 mg PO BID [facility] Last Admin: 06/09/17 10:02 Dose: 50 mg Ondansetron HCl (Zofran) 4 mg IV Q8H PRN PRN PRN Reason: Nausea Oxycodone HCl (Oxyir) 5 - 10 mg PO Q6H PRN PRN PRN Reason: SEVERE PAIN (6-10/10) Last Admin: 06/04/17 15:06 Dose: 5 mg Pantoprazole Sodium (Protonix) 20 mg PO DAILY [facility] Last Admin: 06/09/17 10:03 Dose: 20 mg Sodium Chloride () 5 - 30 ml IV UD PRN PRN Reason: SALINE FLUSH Last Admin: 06/08/17 21:28 Dose: 10 ml Spironolactone (Aldactone) 25 mg PO DAILY [facility] Last Admin: 06/09/17 10:02 Dose: 25 mg Trazodone HCl (Desyrel) 100 mg PO QHS PRN PRN PRN Reason: SLEEP Last Admin: 06/05/17 23:05 Dose: 100 mg Medical Necessity - Tobacco Use Smoking Status: Former smoker Tobacco Use: Non-smoker Assessment/Plan Active and Suspected Problems (Last Updated 05/30/17 @ 16:02 by David Montana MD) Acute on chronic respiratory failure with hypoxia and hypercapnia (Acute) Acute on chronic diastolic (congestive) heart failure (Acute) 1. Acute on chronic hypoxic and hypercapnic respiratory ; multifactorial, she is on supplemental oxygen and we will wean as tolerated. 2. Acute heart failure with preserved left ventricular function; the patient has been changed to PO Lasix and Aldactone. 3. COPD without acute exacerbation/ pulmonary fibrosis; will continue on bronchodilators as ordered. Pulmonary input noted 4. Pulmonary hypertension; on diuretics and supplemental oxygen. 4. Acute on chronic normocytic anemia ; she received 4 units of packed RBCs during this admission.. 5. Aortic stenosis; due to multiple medical issues valve replacement is not considered at this time. 6. DM 2 ; she is a regular insulin sliding scale. 7. essential Hypertension; this is controlled. 10. History of GI AVM; stable with no signs of GI bleed. 11. TRI/OHS; HS BiPAP 12 Disposition; the patient is awaiting discharge to [facility] 13. DVT prophylaxis with SCDs.
[2017-06-09 16:30] LABS: Bedside Glucose 205 mg/dL (70-110)
--- NOTE | 2017-06-09 16:40 | NURSING ---
Spoke with Dr. Romero regarding possible discharge. Per Dr. Romero, patient will probably be discharged tomorrow.
[2017-06-09] MEDS: 0.9% NaCl Peripheral Flush Adult/Peds IV (18:03)
[2017-06-09] MEDS: Atorvastatin Calcium 10 MG Tablet PO (22:19)
[2017-06-09] MEDS: Gabapentin 100 MG Capsule 200 MG PO (22:20)
[2017-06-09 22:25] LABS: Bedside Glucose 287 mg/dL (70-110)
[2017-06-10] VITALS (8 sets, daily range): BP systolic 107–119; BP diastolic 50–55; PULSE 70–81; RESP 18–20; TEMP 36.1–36.6; O2SAT 94–99
--- NOTE | 2017-06-10 02:41 | CPS ---
pt refused to wear bipap for tonight
[2017-06-10] MEDS: Ipratropium/Albuterol Sulfate 3 ML AMPUL.NEB INHALATION (03:27)
[2017-06-10 06:30] LABS: BUN 56 mg/dL (7-18); BUN/Creat Ratio 41.2 RATIO (10-20); Calcium,Total 8.7 mg/dL (8.5-10.1); Carbon Dioxide > 45.0 mmol/L (21.0-32.0); Chloride 85 mmol/L (98-107); Creatinine, Serum 1.36 mg/dL (0.55-1.02); EST Glomerular Filtration Rate 41 mL/min (>60); Est Glom Filt Rate - Afr Amer 50 mL/min (>60); Glucose 246 mg/dL (74-106); Potassium 3.4 mmol/L (3.5-5.1); Sodium Level 138 mmol/L (136-145)
[2017-06-10 06:50] LABS: Bedside Glucose 242 mg/dL (70-110)
--- NOTE | 2017-06-10 07:02 | PN.CARD_ITS ---
Subjectve: Patient seen and evaluated. Objective: Vital Signs Temp Pulse Resp BP Pulse Ox 97.9 F 75 20 H 116/50 L 95 06/10/17 03:20 06/10/17 03:27 06/10/17 03:27 06/10/17 03:20 06/10/17 03:20 Oxygen Flow Rate (L/min) 5 Oxygen Delivery Method Nasal Cannula Weight: 247 lb 5.738 oz Body Mass Index (BMI) 46.5 Intake and Output for Last 24 Hours 06/08/17 06/09/17 06/10/17 23:59 23:59 23:59 Intake Total 772 / 772 940 / 940 500 / 500 Output Total 950 / 950 200 / 200 Balance -178 / -178 940 / 940 300 / 300 General: Awake, Alert, Oriented x 3, Obese HEENT: PERRL, EOMI, Sclera Non Icteric Neck: Supple, Good ROM, No Lymph Node Enlargement Lungs: Clear to auscultation Cardiovascular: Regular Rhythm, Normal S1, Normal S2, No Rubs, No Gallops Murmur Murmur: Grade 2/6, Early Systolic, Crescendo-Decrescendo, LLSB Vascular: No Carotid Bruits, Normal Femoral Pulses, Normal Radial Pulses, Normal Dorsalis Pedal Pulse, Normal Posterior Tibial Pulses Abdomen: Bowel Sounds Present, Soft, Non Tender, No HSM, No Organomegaly Extremities: No Cyanosis, No Clubbing, No edema Neurological: No Focal Motor or Sensory Deficit 06/09/17 07:20: Sodium 135 L, Potassium 3.2 L, Chloride 82 L, Carbon Dioxide > 45.0 H*, Anion Gap TNP, BUN 52 H, Creatinine 1.41 H, Est GFR (MDRD) Af Amer 48 L , Est GFR (MDRD) Non-Af 39 L, BUN/Creatinine Ratio 36.9 H, Glucose 243 H, Calcium 8.9 06/10/17 05:50: Sodium 138, Potassium 3.4 L, Chloride 85 L, Carbon Dioxide > 45.0 H*, Anion Gap TNP, BUN 56 H, Creatinine 1.36 H, Est GFR (MDRD) Af Amer 50 L , Est GFR (MDRD) Non-Af 41 L, BUN/Creatinine Ratio 41.2 H, Glucose 246 H, Calcium 8.7 Rhythm: EKG:NSR Medical Necessity - Tobacco Use Smoking Status: Former smoker Tobacco Use: Non-smoker Assessment/Plan 1. Shortness of breath. The etiology of the above is likely multifactorial. She does have aortic stenosis but not severe based on the mean gradient. This was confirmed with a cardiac catheterization which demonstrated a mean gradient of approximately 20 mmHg. She did however have an elevated left ventricular end-diastolic pressure as well as pulmonary pressures in the mid 60s which correlated with the echocardiographic findings. My recommendation at this time would be to continue diuretic therapy but switch her from Bumex to Lasix and Aldactone. Salt restriction has also been advised. She has lost about 25 pounds during this admission.!. 2. Valvular heart disease She does not have evidence of severe aortic stenosis. This has been documented by echocardiographic as well as by cardiac catheterization. At this time I do not think there is a reason to pursue valve replacement. Her anemia probably falsely elevated her peak and mean valve gradient by echocardiogram. 3. Hypertension She does have a history of essential hypertension and my recommendation would be to continue her current medications maintaining her blood pressure around 100 systolic. 4. Severe anemia She had severe anemia likely secondary to AV malformations. This may be also related to her aortic stenosis. After she is appropriately tuned up she may need to consider going on chronic iron therapy to maintain her hemoglobin. Hemoglobin appears to be doing much better. 5. The artery disease Her cardiac catheterization films were reviewed and were discussed as above. He demonstrated essentially normal coronary arteries. There is no significant ostial left main stenosis noted. Overall I suspect that her shortness of breath is multifactorial secondary to valvular heart disease, anemia, hypertension, obesity, and coronary artery disease. Her electrolytes with her potassium needs to be corrected. She is on home oxygen but from my standpoint she is probably ready to be discharged soon for outpatient follow-up. Thank you for allowing me to participate in the care of your patient. Please don't hesitate to call if any issues arise
[2017-06-10] MEDS: Ferrous Sulfate 325 MG Tablet PO (08:59)
[2017-06-10] MEDS: Spironolactone 25 MG Tablet PO (09:00)
[2017-06-10] MEDS: Escitalopram Oxalate 10 MG Tablet PO (09:00)
[2017-06-10] MEDS: Fluticasone 0.05% 1 SPRAY NASAL.SRY NASAL (09:00)
[2017-06-10] MEDS: Pantoprazole Sodium 20 MG Tablet PO (09:00)
[2017-06-10] MEDS: Furosemide 40 MG Tablet PO (09:00)
[2017-06-10] MEDS: Metoprolol Tartrate 50 MG Tablet PO (09:00)
--- NOTE | 2017-06-10 11:10 | TREXTCAR_ITS ---
Addendum entered and electronically signed by KAILASH Ortega 06/10/17 11:20: Code Visit Please also check daily weights. Original Note: - Diet 06/06/17 08:52 Diet: Cardiac: Calorie-Controlled Is pt able to select menu?: Yes How many daily calories?: 1800 calorie - Routine Orders/Code Status Suppository Type: Dulcolax 10mg Suppository Frequency: Daily PRN O2 Frequency: Continuous Routine Lab Work: CBC, BMP Code Status: Full Code - Wound(s) R Groin Wound Type: Puncture - Therapies Physical Therapy: Eval and Treat Occupational Therapy: Eval and Treat - Problem/Diagnosis (1) Acute on chronic respiratory failure with hypoxia and hypercapnia Status: Acute Current Visit: Yes (2) Acute on chronic diastolic (congestive) heart failure Status: Acute Current Visit: Yes (3) Debility, unspecified Status: Chronic Current Visit: No (4) Nonrheumatic aortic (valve) stenosis Status: Chronic Current Visit: No (5) Anemia Status: Chronic Current Visit: No (6) Chronic hypoxemic respiratory failure Status: Chronic Current Visit: No (7) Pulmonary fibrosis Status: Chronic Current Visit: No (8) Stage 3 severe COPD by GOLD classification Status: Chronic Current Visit: No (9) Aortic stenosis Status: Chronic Comment: Moderate to severe with valve area 1.1 on cardiac catheterization in 2013 Current Visit: No (10) Diabetes mellitus type II Status: Chronic Current Visit: No (11) Pulmonary hypertension Status: Chronic Comment: With PA pressures 55 by cardiac catheterization Current Visit: No (12) Hypertension Status: Chronic Current Visit: No (13) HLD (hyperlipidemia) Status: Chronic Current Visit: No (14) GI AVM (gastrointestinal arteriovenous vascular malformation) Status: Chronic Current Visit: No (15) Anxiety Status: Chronic Current Visit: Yes - Allergies/Procedures Done in Hospital Allergies/Adverse Reactions: Allergies aspirin Allergy (Verified 05/30/17 11:59) anemia Procedures: 2-D Echocardiogram, Cardiac catheterization - Type of Care/Length of Stay Estimated LOS: Convalescent Care Less Than 30 days Type of Care Needed: Skilled Rehab Potential: Fair Prognosis: Fair - Additional Orders/Day of Discharge Additional Orders: Continue BiPAP at night. Day of Discharge: 06/10/17 - Dietary and Speech Recommendations Dietitian Recommendations/Changes: Suggest diet change to Cardiac, 1800 Calorie Controlled, Low Sodium with fluid restriction as needed. - Follow Up Care Primary Care Physician: Vic Chen MD [Primary Care Provider] - Please follow up with your Primary Care Physician in: 2 weeks Please Follow Up With: Alcon Jung MD When: 2 weeks Please Follow Up With: Rajesh Dixon MD When: 2 weeks
--- NOTE | 2017-06-10 11:15 | PCM.PROGNOTE ---
Patient Problems: Active and Suspected Problems (Last Updated 05/30/17 @ 16:02 by David Montana MD) Acute on chronic respiratory failure with hypoxia and hypercapnia (Acute) Acute on chronic diastolic (congestive) heart failure (Acute) Subjective: The patient was seen and examined. She is ambulatory and maintaining appropriate saturations on 5 L of oxygen supplementation. She is minimally short of breath with exertion. Remains afebrile and hemodynamically stable. States she is going to [facility] today. - Physical Exam General: Alert, Oriented x3, Cooperative, No apparent distress, - - No conversational dyspnea HEENT: Atraumatic, Normocephalic Oral: Moist Mucosa Neck: Supple, No Nodes, Trachea Midline Lungs: - - Diminished throughout, no appreciable rhonchi, wheezes, or rales Cardiovascular: Regular rate, Regular Rhythm, Normal S1, Normal S2, Murmur, No rub noted, No Gallop Abdomen: Bowel Sounds Present, Soft, Non Tender, Obese Extremities: No cyanosis, Clubbing, Edema, Tenderness - bilat LEs, chronic Skin: - - Venous stasis changes Neurological: Neuro grossly intact Psych/Mental Status: Alert and oriented to time, place, person, mood and affect Vital Signs Temp Pulse Resp BP Pulse Ox 97.5 F L 78 20 H 107/52 L 94 06/10/17 09:00 06/10/17 09:00 06/10/17 09:00 06/10/17 09:00 06/10/17 09:00 Oxygen Flow Rate (L/min) 5 Oxygen Delivery Method Nasal Cannula Weight: 247 lb 5.738 oz Body Mass Index (BMI) 46.5 Intake and Output for Last 24 Hours 06/08/17 06/09/17 06/10/17 23:59 23:59 23:59 Intake Total 772 / 772 940 / 940 500 / 500 Output Total 950 / 950 200 / 200 Balance -178 / -178 940 / 940 300 / 300 Laboratory Tests Past 24 Hrs 06/10/17 05:50 Sodium 138 Potassium 3.4 L Chloride 85 L Carbon Dioxide > 45.0 H* Anion Gap TNP BUN 56 H Creatinine 1.36 H Estim Creat Clear Calc 32.30 Est GFR (MDRD) Af Amer 50 L Est GFR (MDRD) Non-Af 41 L BUN/Creatinine Ratio 41.2 H Glucose 246 H Calcium 8.7 POC Glucose 06/10/17 06/09/17 06/09/17 06:48 22:11 16:21 POC Glucose 242 H 287 H 205 H 06/09/17 11:06 POC Glucose 280 H Medical Necessity - Tobacco Use Smoking Status: Former smoker Tobacco Use: Non-smoker Assessment/Plan Active and Suspected Problems (Last Updated 05/30/17 @ 16:02 by David Montana MD) Acute on chronic respiratory failure with hypoxia and hypercapnia (Acute) Acute on chronic diastolic (congestive) heart failure (Acute) RECOMMENDATIONS: 1. Increase activity as tolerated and encourage incentive spirometer 2. Continue with current diuretic therapy from my perspective 3. Wean supplemental oxygen. The patient needs to be maintained 88-92% to prevent paradoxical CO2 retention. 4. Continue BiPAP with all sleep 5. Walking oximetry prior to discharge 6. Follow-up with pulmonary as previously scheduled upon discharge 7. Okay to discharge from pulmonary perspective IMPRESSIONS: 1. Acute on chronic hypoxemic and hypercarbic respiratory failure Patient appears to be responding to diuretic therapy. Patient has had a slight bump in creatinine. This may be secondary to contrast versus diuretic therapy. Patient's oxygenation is much improved. Likely okay to transition to baseline diuretic therapy from my perspective. Patient will need a walking oximetry prior to discharge. Patient did have an elevated pulmonary capillary wedge pressure on right heart catheterization indicating pulmonary hypertension secondary to diastolic dysfunction. Patient does appear to understand the pathophysiology, but compliance with recommendations as an outpatient has been challenging in the past. These recommendations were again reviewed. Likely okay to discharge from a pulmonary perspective if saturations can be controlled with ambulation on 6 L or less. 2. Aortic stenosis/diastolic heart failure with exacerbation/pulmonary hypertension/coronary artery disease Continue current medical management per cardiology recommendations. Continue diuresis as tolerated. Await cardiology recommendations for aortic valve moving forward. Stressed to the patient the importance of daily weights and maintenance of a low-salt diet. Plans to discharge patient today to [facility]. This note was generated with Network [employer] software. It may contain incorrect words, spelling, and punctuation that were not noted in checking the note before signing.
[2017-06-10 11:35] LABS: Bedside Glucose 255 mg/dL (70-110)
[2017-06-10] MEDS: 0.9% NaCl Peripheral Flush Adult/Peds IV (11:38)
[2017-06-10] MEDS: Ondansetron 4 MG/2 ML Vial IV (11:38)
--- NOTE | 2017-06-10 11:54 | NURSING ---
called report to Monica @ [facility]. pt is waiting for to picker tender to transport to [facility]
--- NOTE | 2017-06-10 14:02 | CASEMGMT ---
Patient is ready for d/c to [facility]. ANTONIO faxed orders to [facility]. Convalescent was completed on [facility]. Patient's will transport her via private vehicle. ANTONIO called Rema and let her know that her will be bringing patient after the Dental Director sees patient. Plan d/c to [facility] under skilled level of care on a convalescent stay. Patient's transported her via private vehicle. Chey AGUIRRE P[employer]ER[employer] SUPERVISOR
--- NOTE | 2017-06-10 14:34 | PCM.DC.SUM ---
Discharge Date and Diagnosis - Problem List Patient Problems: Active and Suspected Problems (Last Updated 05/30/17 @ 16:02 by David Montana MD) Acute on chronic respiratory failure with hypoxia and hypercapnia (Acute) Acute on chronic diastolic (congestive) heart failure (Acute) Date of Admission: 05/30/17 Date of Discharge: 06/10/17 - Primary Discharge Diagnosis Active and Suspected Problems (Last Updated 05/30/17 @ 16:02 by David Montana MD) Acute on chronic respiratory failure with hypoxia and hypercapnia (Acute) Acute on chronic diastolic (congestive) heart failure (Acute) COPD, without acute exacerbation Pulmonary hypertension Pulmonary fibrosis Acute on chronic normocytic anemia, stable after 4 units PRBC administration Moderate to severe aortic stenosis Type 2 diabetes mellitus Hypertension Hyperlipidemia Obstructive sleep apnea-obesity hypoventilation syndrome History of GI AVM - Secondary Discharge Diagnosis Chronic Problems (Last Updated 05/30/17 @ 16:02 by David Mnotana MD) Anxiety (Chronic) Debility, unspecified (Chronic) Nonrheumatic aortic (valve) stenosis (Chronic) Left atrial enlargement (Chronic) Hypersomnia (Chronic) Anemia (Chronic) Carotid artery stenosis (Chronic) Chronic hypoxemic respiratory failure (Chronic) Pulmonary fibrosis (Chronic) 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 3 severe COPD by GOLD classification (Chronic) Aortic stenosis (Chronic) Moderate to severe with valve area 1.1 on cardiac catheterization in 2013 Diabetes mellitus type II (Chronic) Pulmonary hypertension (Chronic) With PA pressures 55 by cardiac catheterization Hypertension (Chronic) HLD (hyperlipidemia) (Chronic) 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) Hospital Course and Treatment Imaging Results: RAD/Chest 1 View (Portable) IMPRESSION: Cardiomegaly and mild CHF. Echo: Interpretation Summary Normal LV size. Mild concentric left ventricular hypertrophy. Left ventricular systolic function is normal. The estimated ejection fraction is 60 %. Moderate (2+) tricuspid valve insufficiency. Pulmonary artery systolic pressure is 60 mmHg. Severe focal aortic valve calcification. Moderately severe Venous US LE Interpretation Summary Deep veins of the lower extremities are bilaterally patent and compressible segmentally. There is no evidence of deep vein thrombosis on either side. Valvular competence appears intact within the proximal deep venous systems bilaterally. The greater saphenous veins appear bilaterally patent and compressible segmentally. Cardiac Cath: CONCLUSIONS Minimal coronary artery disease Mild Aortic stenosis Consults: [facility] - Cardiology Zack - pulm Operations: None Summary of Care Provided: Physical exam on day of discharge: General: Resting comfortably NAD Psych: A/Ox3 normal affect HEENT: GINORLA AT NC Neck: Supple NT CV: RRR no m/t/r/g/h Resp: CTA Abd: [id number] Soft NT no guarding or rigidity Ext: DP2+=, 2+ pitting edema BLE. Skin: W/D normal turgor Lymph/Heme: No active bleeding or adenopathy Neuro: CN2-12 intact Hospital course: The patient is a 67 year old F with severe end-stage pulmonary disease including COPD, pulmonary fibrosis, pulmonary hypertension, obstructive sleep apnea, aortic stenosis, diastolic congestive heart failure, who presented to the emergency room with increased shortness of breath, bilateral lower extremity edema, and increased oxygen demand. She chronically uses 5 L of oxygen at home and was not satting well on this amount in the emergency room. She has had multiple admissions for the same in the past year. She was admitted to the PCU and provided aerosols, diuresis, pulmonology was consulted as well as cardiology. Her history is complicated by a moderate to severe aortic stenosis. She has been worked up as an outpatient for this and has in the past not felt to be ready for surgery. She went through a prolonged hospital course. She had a heart catheterization per cardiology when she was able to tolerate laying flat with the BiPAP. They felt that her condition was not due to severe aortic stenosis, more of a congestive heart failure and fluid problem. This is diastolic in nature as her EF is 60% on repeat echo done this admission. She was diuresed for about 13 L of fluid. She lost 25 pounds during this admission. She was started on spironolactone and a new home dose of Lasix. She is very weak and debilitated and required further skilled therapy. Per pulmonology she needs to be maintained between 80-92% to prevent paradoxical CO2 retention. She needs to have BiPAP on at all times when she is sleeping. She needs strict fluid restriction and salt restriction, she needs to have Ryne wraps or compression socks along with elevation of legs as she tends to have severe edema in her legs. She will need close follow-up with both cardiology and pulmonology. Palliative care was consulted during this stay due to the severe nature of her lung disease. She remained stable when medications were changed to p.o. She is discharged to assisted in stable condition. She will need her weight measured daily, and close monitoring of renal function and potassium. This patient was seen by Shemar Butcher PA-C under the supervision of Doctor Linda. [] Discharge Diet: Low fat/ Low Cholesterol, 1800 Calorie Control Diet, 2000 mg Sodium Diet Discharge Activity: Return to Normal Activity, - - Daily weights, compression socks/ryne wraps daily, elevate legs. Home Medications: Medications to take at Discharge Metformin HCl [Glucophage] 1,000 mg PO BIDCM 01/15/14 Simvastatin [Zocor] 20 mg PO QHS 01/15/14 Ferrous Sulfate 325 mg PO BID 04/09/14 Escitalopram Oxalate [Lexapro] 10 mg PO DAILY 06/29/15 traZODone [Desyrel] 100 mg PO QHS PRN PRN 06/29/15 Budesonide/Formoterol Fumarate [Symbicort 160-4.5 Mcg Inhaler] 2 puff IH BID 03/27/17 Fluticasone 0.05% [Flonase Nasal [place]] 1 spray NASAL BID 04/24/17 Acetaminophen [Tylenol Tablet] 650 mg PO Q6H PRN PRN tablet 06/10/17 Albuterol Aerosols [Ventolin Aerosols] 2.5 mg INHALATION Q2H PRN PRN vial.neb. 06/10/17 Budesonide Aerosol [Pulmicort Respules] 0.5 mg INHALATION BID.RT ampul.neb. 06/10/17 Furosemide [Lasix] 40 mg PO BID@1000,1800 tablet 06/10/17 Gabapentin [Neurontin] 200 mg PO QHS capsule 06/10/17 Ipratropium/Albuterol Sulfate [Duoneb] 3 ml INHALATION Q4H.RT ampul.neb 06/10/17 Metoprolol Tartrate [Lopressor (beta lorena)] 50 mg PO BID tablet 06/10/17 Pantoprazole Sodium [Protonix] 20 mg PO DAILY tablet 06/10/17 Spironolactone [Aldactone] 25 mg PO DAILY tablet 06/10/17 Primary Care Physician: Vic Chen MD [Primary Care Provider] - Please follow up with your Primary Care Physician in: 2 weeks Please Follow Up With: Alcon Jung MD When: 2 weeks Please Follow Up With: Rajesh Dixon MD When: 2 weeks [facility]position: [facility] Minutes spent on discharge:: 40 Patient Condition:: Stable Medical Necessity - Tobacco Use Smoking Status: Former smoker Tobacco Use: Non-smoker Meaningful Use Info Meaningful Use Diagnoses (Choose all that apply): CHF - CHF RYNE/ARB ordered at discharge?: No Reason RYNE/ARB not ordered?: Worsening renal disease Documented LVEF (%): 60
--- NOTE | 2017-06-10 14:44 | DS.PCM_ITS ---
Discharge Date and Diagnosis - Problem List Patient Problems: Active and Suspected Problems (Last Updated 05/30/17 @ 16:02 by David Montana MD) Acute on chronic respiratory failure with hypoxia and hypercapnia (Acute) Acute on chronic diastolic (congestive) heart failure (Acute) Date of Admission: 05/30/17 Date of Discharge: 06/10/17 - Primary Discharge Diagnosis Active and Suspected Problems (Last Updated 05/30/17 @ 16:02 by David Montana MD) Acute on chronic respiratory failure with hypoxia and hypercapnia (Acute) Acute on chronic diastolic (congestive) heart failure (Acute) COPD, without acute exacerbation Pulmonary hypertension Pulmonary fibrosis Acute on chronic normocytic anemia, stable after 4 units PRBC administration Moderate to severe aortic stenosis Type 2 diabetes mellitus Hypertension Hyperlipidemia Obstructive sleep apnea-obesity hypoventilation syndrome History of GI AVM - Secondary Discharge Diagnosis Chronic Problems (Last Updated 05/30/17 @ 16:02 by David Montana MD) Anxiety (Chronic) Debility, unspecified (Chronic) Nonrheumatic aortic (valve) stenosis (Chronic) Left atrial enlargement (Chronic) Hypersomnia (Chronic) Anemia (Chronic) Carotid artery stenosis (Chronic) Chronic hypoxemic respiratory failure (Chronic) Pulmonary fibrosis (Chronic) 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 3 severe COPD by GOLD classification (Chronic) Aortic stenosis (Chronic) Moderate to severe with valve area 1.1 on cardiac catheterization in 2013 Diabetes mellitus type II (Chronic) Pulmonary hypertension (Chronic) With PA pressures 55 by cardiac catheterization Hypertension (Chronic) HLD (hyperlipidemia) (Chronic) 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) Hospital Course and Treatment Imaging Results: RAD/Chest 1 View (Portable) IMPRESSION: Cardiomegaly and mild CHF. Echo: Interpretation Summary Normal LV size. Mild concentric left ventricular hypertrophy. Left ventricular systolic function is normal. The estimated ejection fraction is 60 %. Moderate (2+) tricuspid valve insufficiency. Pulmonary artery systolic pressure is 60 mmHg. Severe focal aortic valve calcification. Moderately severe Venous US LE Interpretation Summary Deep veins of the lower extremities are bilaterally patent and compressible segmentally. There is no evidence of deep vein thrombosis on either side. Valvular competence appears intact within the proximal deep venous systems bilaterally. The greater saphenous veins appear bilaterally patent and compressible segmentally. Cardiac Cath: CONCLUSIONS Minimal coronary artery disease Mild Aortic stenosis Consults: [facility] - Cardiology Zack - pulm Operations: None Summary of Care Provided: Physical exam on day of discharge: General: Resting comfortably NAD Psych: A/Ox3 normal affect HEENT: GINORLA AT NC Neck: Supple NT CV: RRR no m/t/r/g/h Resp: CTA Abd: [id number] Soft NT no guarding or rigidity Ext: DP2+=, 2+ pitting edema BLE. Skin: W/D normal turgor Lymph/Heme: No active bleeding or adenopathy Neuro: CN2-12 intact Hospital course: The patient is a 67 year old F with severe end-stage pulmonary disease including COPD, pulmonary fibrosis, pulmonary hypertension, obstructive sleep apnea, aortic stenosis, diastolic congestive heart failure, who presented to the emergency room with increased shortness of breath, bilateral lower extremity edema, and increased oxygen demand. She chronically uses 5 L of oxygen at home and was not satting well on this amount in the emergency room. She has had multiple admissions for the same in the past year. She was admitted to the PCU and provided aerosols, diuresis, pulmonology was consulted as well as cardiology. Her history is complicated by a moderate to severe aortic stenosis. She has been worked up as an outpatient for this and has in the past not felt to be ready for surgery. She went through a prolonged hospital course. She had a heart catheterization per cardiology when she was able to tolerate laying flat with the BiPAP. They felt that her condition was not due to severe aortic stenosis, more of a congestive heart failure and fluid problem. This is diastolic in nature as her EF is 60% on repeat echo done this admission. She was diuresed for about 13 L of fluid. She lost 25 pounds during this admission. She was started on spironolactone and a new home dose of Lasix. She is very weak and debilitated and required further skilled therapy. Per pulmonology she needs to be maintained between 80-92% to prevent paradoxical CO2 retention. She needs to have BiPAP on at all times when she is sleeping. She needs strict fluid restriction and salt restriction, she needs to have Ryne wraps or compression socks along with elevation of legs as she tends to have severe edema in her legs. She will need close follow-up with both cardiology and pulmonology. Palliative care was consulted during this stay due to the severe nature of her lung disease. She remained stable when medications were changed to p.o. She is discharged to group home in stable condition. She will need her weight measured daily, and close monitoring of renal function and potassium. This patient was seen by Shemar Butcher PA-C under the supervision of Doctor Linda. [] Discharge Diet: Low fat/ Low Cholesterol, 1800 Calorie Control Diet, 2000 mg Sodium Diet Discharge Activity: Return to Normal Activity, - - Daily weights, compression socks/ryne wraps daily, elevate legs. Home Medications: Medications to take at Discharge Metformin HCl [Glucophage] 1,000 mg PO BIDCM 01/15/14 Simvastatin [Zocor] 20 mg PO QHS 01/15/14 Ferrous Sulfate 325 mg PO BID 04/09/14 Escitalopram Oxalate [Lexapro] 10 mg PO DAILY 06/29/15 traZODone [Desyrel] 100 mg PO QHS PRN PRN 06/29/15 Budesonide/Formoterol Fumarate [Symbicort 160-4.5 Mcg Inhaler] 2 puff IH BID 01/02 Fluticasone 0.05% [Flonase Nasal [place]] 1 spray NASAL BID 04/24/17 Acetaminophen [Tylenol Tablet] 650 mg PO Q6H PRN PRN tablet 06/10/17 Albuterol Aerosols [Ventolin Aerosols] 2.5 mg INHALATION Q2H PRN PRN vial.neb. 06/10/17 Budesonide Aerosol [Pulmicort Respules] 0.5 mg INHALATION BID.RT ampul.neb. Furosemide [Lasix] 40 mg PO BID@1000,1800 tablet 06/10/17 Gabapentin [Neurontin] 200 mg PO QHS capsule 06/10/17 Ipratropium/Albuterol Sulfate [Duoneb] 3 ml INHALATION Q4H.RT ampul.neb Metoprolol Tartrate [Lopressor (beta lorena)] 50 mg PO BID tablet 06/10/17 Pantoprazole Sodium [Protonix] 20 mg PO DAILY tablet 06/10/17 Spironolactone [Aldactone] 25 mg PO DAILY tablet 06/10/17 Primary Care Physician: Vic Chen MD [Primary Care Provider] - Please follow up with your Primary Care Physician in: 2 weeks Please Follow Up With: Alcon Jung MD When: 2 weeks Please Follow Up With: Rajesh Dixon MD When: 2 weeks Disposition: Snf facility Minutes spent on discharge:: 40 Patient Condition:: Stable Medical Necessity - Tobacco Use Smoking Status: Former smoker Tobacco Use: Non-smoker Meaningful Use Info Meaningful Use Diagnoses (Choose all that apply): CHF - CHF RYNE/ARB ordered at discharge?: No Reason RYNE/ARB not ordered?: Worsening renal disease Documented LVEF (%): 60
== END 2017-06-10 14:41 | disposition skilled nursing facility (03) | DRG 286 ==
LOC: ED 12:45 → PCU 14:48
PROVIDERS: Hospitalist; Internal Medicine; Internal Medicine Cardiovascular Disease; Internal Medicine Critical Care Medicine; Nurse Practitioner Family; Physician Assistant; Admitting Provider Hospitalist; Emergency Provider Emergency Medicine; Family Provider Family Medicine; PCP Family Medicine; Visit Provider Internal Medicine
DX: I11.0 Hypertensive heart disease with heart failure (principal); J96.22 Acute and chronic respiratory failure with hypercapnia; J96.21 Acute and chronic respiratory failure with hypoxia; I27.20 Pulmonary hypertension, unspecified; J84.10 Pulmonary fibrosis, unspecified; E66.2 Morbid (severe) obesity with alveolar hypoventilation; Z68.42 Body mass index [BMI] 45.0-49.9, adult; E11.9 Type 2 diabetes mellitus without complications; D64.9 Anemia, unspecified; Z99.81 Dependence on supplemental oxygen; I35.0 Nonrheumatic aortic (valve) stenosis; I50.33 Acute on chronic diastolic (congestive) heart failure; J44.9 Chronic obstructive pulmonary disease, unspecified; E78.5 Hyperlipidemia, unspecified; I25.10 Atherosclerotic heart disease of native coronary artery without angina pectoris; F17.201 Nicotine dependence, unspecified, in remission; Z79.84 Long term (current) use of oral hypoglycemic drugs; Z79.899 Other long term (current) drug therapy; K31.819 Angiodysplasia of stomach and duodenum without bleeding
CPT/HCPCS: 36415; 36600; 71045; 80048; 81001; 82803; 82962; 83010; 83605; 83735; 83880; 84484; 85025; 85027; 85610; 85730; 86850; 86900; 86920; 86922; 87633; 93005; 93306; 93460; 93970; 94002; 94003; 94640; 94668; 97110; 97162; 97165; 97530; 99285; J7040; P9016; Q9967; A4216; C1751; C1769; C1894; J1940; J2405

== ENCOUNTER 2017-07-08 14:03 | Outpatient (RCR) | payer MEDICARE, OTHER, SELFPAY ==
[2017-07-08 14:31] LABS: Hemoglobin 7.9 g/dl (12.0-15.0); Mean Corp Hgb Conc 27.2 g/gl (32-36); Mean Corpuscular Hgb 26.1 pg (27.0-32.0); Mean Corpuscular Volume 95.7 fL (81-99); Mean Platelet Vol. 9.6 fl (6.2-12.0); Platelet Count 428 K/mm3 (150-450); RBC Distribution Width CV 16.9 % (11.6-14.6); RBC Distribution Width SD 54.7 fl (35.1-43.9); Red Blood Count 3.03 M/mm3 (4.2-5.4); Scan Indicated on CBC? Y/N NO; White Blood Count 14.5 K/mm3 (4.4-11.0)
[2017-07-08 14:43] LABS: Anion Gap 4 (5-15); BUN 23 mg/dL (7-18); BUN/Creat Ratio 20.2 RATIO (10-20); Calcium,Total 9.2 mg/dL (8.5-10.1); Chloride 93 mmol/L (98-107); Creatinine, Serum 1.14 mg/dL (0.55-1.02); EST Glomerular Filtration Rate 50 mL/min (>60); Est Glom Filt Rate - Afr Amer 61 mL/min (>60); Glucose 164 mg/dL (74-106); Potassium 4.2 mmol/L (3.5-5.1); Sodium Level 137 mmol/L (136-145)
== END 2017-07-15 23:59 ==
LOC: HHLAB 14:03
PROVIDERS: Family Provider Family Medicine; PCP Family Medicine; Visit Provider Family Medicine
DX: I25.10 Atherosclerotic heart disease of native coronary artery without angina pectoris (principal); I11.0 Hypertensive heart disease with heart failure; I50.33 Acute on chronic diastolic (congestive) heart failure; J96.21 Acute and chronic respiratory failure with hypoxia; J96.22 Acute and chronic respiratory failure with hypercapnia
CPT/HCPCS: 80048; 85027

== ENCOUNTER 2017-07-30 15:48 | Outpatient (RCR) | payer MEDICARE, OTHER, SELFPAY ==
[2017-07-16 14:27] LABS: Hematocrit 30.1 % (37-47); Hemoglobin 8.1 g/dl (12.0-15.0); Mean Corp Hgb Conc 26.9 g/gl (32-36); Mean Corpuscular Hgb 25.8 pg (27.0-32.0); Mean Corpuscular Volume 95.9 fL (81-99); Mean Platelet Vol. 9.5 fl (6.2-12.0); Platelet Count 522 K/mm3 (150-450); RBC Distribution Width CV 18.1 % (11.6-14.6); RBC Distribution Width SD 62.3 fl (35.1-43.9); Red Blood Count 3.14 M/mm3 (4.2-5.4); White Blood Count 13.3 K/mm3 (4.4-11.0)
[2017-07-16 14:29] LABS: Scan Indicated on CBC? Y/N NO
[2017-07-16 14:36] LABS: Anion Gap 3 (5-15); BUN 25 mg/dL (7-18); BUN/Creat Ratio 22.7 RATIO (10-20); Calcium,Total 8.7 mg/dL (8.5-10.1); Chloride 93 mmol/L (98-107); EST Glomerular Filtration Rate 52 mL/min (>60); Est Glom Filt Rate - Afr Amer 63 mL/min (>60); Glucose 146 mg/dL (74-106); Potassium 3.9 mmol/L (3.5-5.1); Sodium Level 137 mmol/L (136-145)
[2017-07-22 14:19] LABS: Hematocrit 31.4 % (37-47); Hemoglobin 8.6 g/dl (12.0-15.0); Mean Corp Hgb Conc 27.4 g/gl (32-36); Mean Corpuscular Hgb 26.1 pg (27.0-32.0); Mean Corpuscular Volume 95.4 fL (81-99); Mean Platelet Vol. 9.4 fl (6.2-12.0); Platelet Count 503 K/mm3 (150-450); RBC Distribution Width SD 62.8 fl (35.1-43.9); Red Blood Count 3.29 M/mm3 (4.2-5.4); White Blood Count 13.5 K/mm3 (4.4-11.0)
[2017-07-22 14:20] LABS: Scan Indicated on CBC? Y/N NO
[2017-07-22 14:28] LABS: Anion Gap 7 (5-15); BUN 28 mg/dL (7-18); Calcium,Total 8.6 mg/dL (8.5-10.1); Chloride 93 mmol/L (98-107); Creatinine, Serum 1.12 mg/dL (0.55-1.02); EST Glomerular Filtration Rate 51 mL/min (>60); Est Glom Filt Rate - Afr Amer 62 mL/min (>60); Glucose 201 mg/dL (74-106); Potassium 4.3 mmol/L (3.5-5.1); Sodium Level 139 mmol/L (136-145)
[2017-07-30 16:54] LABS: Anion Gap 6 (5-15); BUN 21 mg/dL (7-18); BUN/Creat Ratio 17.9 RATIO (10-20); Calcium,Total 8.4 mg/dL (8.5-10.1); Chloride 92 mmol/L (98-107); Creatinine, Serum 1.17 mg/dL (0.55-1.02); EST Glomerular Filtration Rate 49 mL/min (>60); Est Glom Filt Rate - Afr Amer 59 mL/min (>60); Glucose 182 mg/dL (74-106); Potassium 4.2 mmol/L (3.5-5.1); Sodium Level 139 mmol/L (136-145)
[2017-07-30 17:00] LABS: Hematocrit 30.1 % (37-47); Hemoglobin 8.3 g/dl (12.0-15.0); Mean Corp Hgb Conc 27.6 g/gl (32-36); Mean Corpuscular Hgb 26.9 pg (27.0-32.0); Mean Corpuscular Volume 97.4 fL (81-99); Mean Platelet Vol. 9.7 fl (6.2-12.0); Platelet Count 410 K/mm3 (150-450); RBC Distribution Width CV 18.1 % (11.6-14.6); RBC Distribution Width SD 63.7 fl (35.1-43.9); Red Blood Count 3.09 M/mm3 (4.2-5.4)
[2017-07-30 17:01] LABS: Scan Indicated on CBC? Y/N NO
== END 2017-08-15 23:59 ==
LOC: HHLAB 15:48
PROVIDERS: Family Provider Family Medicine; PCP Family Medicine; Visit Provider Family Medicine
DX: I25.10 Atherosclerotic heart disease of native coronary artery without angina pectoris (principal); I11.0 Hypertensive heart disease with heart failure; I50.33 Acute on chronic diastolic (congestive) heart failure; J44.1 Chronic obstructive pulmonary disease with (acute) exacerbation; J84.10 Pulmonary fibrosis, unspecified; J96.21 Acute and chronic respiratory failure with hypoxia; J96.22 Acute and chronic respiratory failure with hypercapnia; E11.9 Type 2 diabetes mellitus without complications; I27.20 Pulmonary hypertension, unspecified; F41.8 Other specified anxiety disorders
CPT/HCPCS: 80048; 85027

== ENCOUNTER 2017-08-07 11:25 | Outpatient (RCR) | payer MEDICARE, OTHER, SELFPAY ==
[2017-08-07 12:40] LABS: Hemoglobin 8.6 g/dl (12.0-15.0); Mean Corp Hgb Conc 27.7 g/gl (32-36); Mean Corpuscular Volume 97.2 fL (81-99); Mean Platelet Vol. 9.8 fl (6.2-12.0); Platelet Count 390 K/mm3 (150-450); RBC Distribution Width CV 17.3 % (11.6-14.6); RBC Distribution Width SD 62.2 fl (35.1-43.9); Red Blood Count 3.19 M/mm3 (4.2-5.4); White Blood Count 9.8 K/mm3 (4.4-11.0)
[2017-08-07 12:46] LABS: Scan Indicated on CBC? Y/N NO
[2017-08-07 12:48] LABS: Anion Gap 6 (5-15); BUN 27 mg/dL (7-18); BUN/Creat Ratio 22.7 RATIO (10-20); Calcium,Total 8.7 mg/dL (8.5-10.1); Chloride 91 mmol/L (98-107); Creatinine, Serum 1.19 mg/dL (0.55-1.02); EST Glomerular Filtration Rate 48 mL/min (>60); Est Glom Filt Rate - Afr Amer 58 mL/min (>60); Glucose 243 mg/dL (74-106); Sodium Level 139 mmol/L (136-145)
== END 2017-08-15 23:59 ==
LOC: HHLAB 11:25
PROVIDERS: Family Provider Family Medicine; PCP Family Medicine; Visit Provider Family Medicine
DX: I11.0 Hypertensive heart disease with heart failure (principal); I50.33 Acute on chronic diastolic (congestive) heart failure; J44.1 Chronic obstructive pulmonary disease with (acute) exacerbation; J84.10 Pulmonary fibrosis, unspecified; J96.21 Acute and chronic respiratory failure with hypoxia; J96.22 Acute and chronic respiratory failure with hypercapnia; E11.9 Type 2 diabetes mellitus without complications; I27.20 Pulmonary hypertension, unspecified; I25.10 Atherosclerotic heart disease of native coronary artery without angina pectoris; F41.8 Other specified anxiety disorders
CPT/HCPCS: 80048; 85027

== ENCOUNTER 2017-08-14 15:59 | Outpatient (RCR) | payer MEDICARE, OTHER, SELFPAY ==
[2017-08-14 16:08] LABS: Hematocrit 30.4 % (37-47); Hemoglobin 8.5 g/dl (12.0-15.0); Mean Corpuscular Hgb 27.5 pg (27.0-32.0); Mean Corpuscular Volume 98.4 fL (81-99); Platelet Count 414 K/mm3 (150-450); RBC Distribution Width CV 16.8 % (11.6-14.6); RBC Distribution Width SD 59.5 fl (35.1-43.9); Red Blood Count 3.09 M/mm3 (4.2-5.4); White Blood Count 10.3 K/mm3 (4.4-11.0)
[2017-08-14 16:12] LABS: Scan Indicated on CBC? Y/N NO
[2017-08-14 16:20] LABS: Anion Gap 9 (5-15); BUN 24 mg/dL (7-18); BUN/Creat Ratio 21.8 RATIO (10-20); Calcium,Total 8.3 mg/dL (8.5-10.1); Chloride 90 mmol/L (98-107); EST Glomerular Filtration Rate 52 mL/min (>60); Est Glom Filt Rate - Afr Amer 63 mL/min (>60); Glucose 279 mg/dL (74-106); Potassium 3.9 mmol/L (3.5-5.1); Sodium Level 140 mmol/L (136-145)
== END 2017-08-15 23:59 ==
LOC: HHLAB 15:59
PROVIDERS: Family Provider Family Medicine; PCP Family Medicine; Visit Provider Family Medicine
DX: I25.10 Atherosclerotic heart disease of native coronary artery without angina pectoris (principal); I11.0 Hypertensive heart disease with heart failure; I50.33 Acute on chronic diastolic (congestive) heart failure; D64.9 Anemia, unspecified
CPT/HCPCS: 80048; 85027

== ENCOUNTER 2017-09-02 11:32 | Inpatient (IN) | payer MEDICARE, OTHER, SELFPAY ==
[2017-09-02] VITALS (21 sets, daily range): BP systolic 107–141; BP diastolic 39–93; PULSE 78–99; RESP 14–27; TEMP 36.7–37.1; O2SAT 88–100; BMI 44.2; BMI 44.3; BMI 44.0
--- NOTE | 2017-09-02 11:50 | RAD_ITS ---
STUDY: X-RAY CHEST REASON FOR EXAM: Female, 67 years old. Increased shortness of breath. Increased weakness nausea and fatigue x3 days. History of COPD. TECHNIQUE: AP upright portable view. COMPARISON: 05/30/2017. FINDINGS: Pulmonary hyperinflation is suggestive of COPD. This is unchanged. There is no demonstrated pleural abnormality. Mild cardiomegaly is unchanged. Normal mediastinum and deepthi. Normal visualized pulmonary arteries. Normal visualized aortic arch and descending thoracic aorta. Normal visualized thoracic spine. Normal visualized ribs, clavicles, and shoulders. There is no demonstrated abnormality of the visualized soft tissue structures of the upper abdomen. RAD/Chest 1 View (Portable) IMPRESSION: 1. No acute cardiopulmonary pathology. 2. COPD. 3. Cardiomegaly. 4. No significant interval changes when compared to 05/30/2017. Electronically Signed: Rob Malik MD at 12:20 EDT , Service support ,
--- NOTE | 2017-09-02 11:50 | EKG12_ITS ---
Test Reason : SOB Blood Pressure : / mmHG Vent. Rate : 079 BPM Atrial Rate : 079 BPM P-R Int : 146 ms QRS Dur : 142 ms QT Int : 446 ms P-R-T Axes : 064 094 019 degrees QTc Int : 511 ms Normal sinus rhythm Right bundle branch block Abnormal ECG Confirmed by ANJANA GAMBOA, CHOLO ([id number]), web editor MONA NGO ([id number] on 09/04/2017 3:30:01 PM Referred By: DAGOBERTO Confirmed By:CHOLO YEUNG MD
--- NOTE | 2017-09-02 11:55 | ED.DCSUM_ITS ---
- ER Visit Summary Date of Service: 09/02/17 Chief Complaint: Shortness of breath, nausea, myalgias History of Present Illness: The patient is a 67 F with history of chronic respiratory failure secondary to COPD presents to the emergency department with increased dyspnea, hypoxia, and myalgias. Patient states over the past 2-3 days , she has had worsening shortness of breath. The patient is on 6 L of nasal cannula at baseline. She states that she cannot get to room to room without becoming increasingly dyspneic. She denies any chest pain. She has had some nausea with a few bouts of vomiting. She admits to diffuse muscle pains. She does not having fevers or chills. She states that her oxygen was in the low 80s today which is abnormal for her on her 6 L. She did try her BiPAP at home with little improvement. She denies any history of coronary vascular disease, but does have history of valvular disease and CHF. She denies weight gain or orthopnea. Physical Examination: Vital signs reviewed General: Well-nourished, well-developed Head: Normocephalic, atraumatic Eyes: Pupils equal and reactive, extraocular muscles intact Neck, supple, no lymphadenopathy Heart: Regular rate and rhythm 3 out of 6 murmur Respiratory: No distress, diminished sounds with wheezing throughout, crackles in the bases Abdomen: Soft, nontender, nondistended, no peritoneal signs Back: Nontender Extremities: Nontender, 1+ symmetric edema, no cords Skin: Normal color no rash Neuro: Alert and oriented, no focal or lateralizing deficits Test Results: [] Emergency Department Course and Treatment: The patient presents with shortness of breath, increasing oxygen requirement, dyspnea. She has had a scant cough. Her lungs have diffuse wheezing throughout with some crackles in the bases. IV was established. Patient given breathing treatments and Solu-Medrol. She did have some improvement of her aeration. She was comfortable in bed on her 6 L nasal cannula saturating in the upper to mid 90s. Her chest x-ray does not show volume overload or acute infiltrate. Labs do show mild leukocytosis and anemia which is acute on chronic. Cardiac enzymes are normal. On reevaluation , the patient is resting more comfortably, but does have persistent wheezing. With her symptomatic anemia and hypoxia over baseline, I do feel she will benefit from admission for treatment of her COPD exacerbation. Patient was discussed with the hospitalist. Treatment Plan: [] Disposition: Admission Impression: 1. COPD exacerbation 2. Dyspnea 3. Anemia This note was generated with Xambala dictation software. It may contain incorrect words, spelling, and punctuation that were not noted in review of the chart prior to signing ED Disposition - Plan for ED Patient: Chief Complaint: Shortness of Breath Referrals: Vic Chen MD [Primary Care Provider] -
[2017-09-02] MEDS: Albuterol 2.5 MG/3 ML VIAL.NEB. INHALATION (12:45)
[2017-09-02] MEDS: Ipratropium/Albuterol Sulfate 3 ML AMPUL.NEB INHALATION ×2 (12:45→19:40)
[2017-09-02 13:00] LABS: Absolute Lymphocyte Count 0.91 X10^3/ul (0.83-4.51); Absolute Neutrophil Count 9.7 X10^3/uL (2.0-7.7); Basophil# 0.03 X10^3/uL; Basophil% 0.3 % (0-1); Differential Indicated SCAN CRITERIA MET; Eosinophil# 0.15 X10^3/uL; Eosinophils% 1.3 % (0-5); Hematocrit 26.3 % (37-47); Hemoglobin 7.1 g/dl (12.0-15.0); Lymphocyte # 0.91 X10^3/ul (4.0); Lymphocyte % 8.1 % (19-41); Mean Platelet Vol. 8.9 fl (6.2-12.0); Monocyte# 0.38 X10^3/uL; Monocyte% 3.4 % (0-10); Neutrophil # 9.73 X10^3/uL (2.7-7.7); Neutrophil % 86.5 % (47-70); POSITIVE COUNT NO; POSITIVE DIFFERENTIAL NO; POSITIVE MORPHOLOGY YES; Platelet Count 394 K/mm3 (150-450); RBC Distribution Width CV 14.9 % (11.6-14.6); RBC Distribution Width SD 54.3 fl (35.1-43.9); Red Blood Count 2.63 M/mm3 (4.2-5.4); White Blood Count 11.3 K/mm3 (4.4-11.0)
[2017-09-02 13:13] LABS: ALB/GLOB Ratio 0.8 RATIO (0.9-2.4); AST(SGOT) 6 U/L (15-37); Alanine Aminotransfer ALT/SGPT 13 U/L (13-56); Albumin, Serum 3.3 g/dL (3.2-5.0); Alkaline Phosphatase 71 U/L (45-117); BUN 14 mg/dL (7-18); BUN/Creat Ratio 14.8 RATIO (10-20); Calcium,Total 8.5 mg/dL (8.5-10.1); Carbon Dioxide > 45.0 mmol/L (21.0-32.0); Chloride 88 mmol/L (98-107); Creatinine, Serum 0.94 mg/dL (0.55-1.02); EST Glomerular Filtration Rate 62 mL/min (>60); Est Glom Filt Rate - Afr Amer 76 mL/min (>60); Estimated Creatinine Clearance 46.72 ml/min; Glucose 216 mg/dL (74-106); Potassium 3.7 mmol/L (3.5-5.1); Protein, Total 7.3 g/dL (6.4-8.2); Sodium Level 142 mmol/L (136-145)
--- NOTE | 2017-09-02 13:14 | ED.RN ---
LAB CALLED CO2 GREATER THEN 45. DR CLEMONS
[2017-09-02 13:17] LABS: BNP,B-Type NATRIURETIC PEPTIDE 112.9 pg/mL (0-100)
[2017-09-02 13:32] LABS: Anisocytosis 2+; Differential Comment SCANNED; Hypochromasia 2+; Platelet Estimate ADEQUATE (ADEQ); Polychromasia 1+
--- NOTE | 2017-09-02 14:00 | PCM.HP.STD ---
Problem List (1) Acute on chronic severe anemia Status: Acute (2) COPD exacerbation Status: Acute (3) Chronic diastolic (congestive) heart failure Status: Chronic (4) Diabetes mellitus Status: Chronic (5) Cerebral infarction, unspecified Status: Chronic (6) Palpitations Status: Chronic (7) COPD suggested by initial evaluation Status: Chronic (8) Acute on chronic respiratory failure with hypoxia and hypercapnia Status: Acute (9) Anxiety Status: Chronic (10) Debility, unspecified Status: Chronic (11) Nonrheumatic aortic (valve) stenosis Status: Chronic (12) Left atrial enlargement Status: Chronic (13) Hypersomnia Status: Chronic (14) Anemia Status: Chronic Qualifiers: (15) Carotid artery stenosis Status: Chronic (16) Chronic hypoxemic respiratory failure Status: Chronic (17) Pulmonary fibrosis Status: Chronic (18) Tobacco dependence in remission Status: Chronic (19) Stage 3 severe COPD by GOLD classification Status: Chronic (20) Aortic stenosis Status: Chronic Comment: Moderate to severe with valve area 1.1 on cardiac catheterization in 2013 (21) Diabetes mellitus type II Status: Chronic (22) Pulmonary hypertension Status: Chronic Comment: With PA pressures 55 by cardiac catheterization (23) Hypertension Status: Chronic Qualifiers: (24) HLD (hyperlipidemia) Status: Chronic Qualifiers: (25) GI AVM (gastrointestinal arteriovenous vascular malformation) Status: Chronic History of Present Illness Date of Admission: 09/02/17 Chief Complaint: Dyspnea on exertion for 3 days The patient is a 67 year old F with history of chronic diastolic heart failure and chronic hypoxic and hypercarbic respiratory failure on 6 L of home oxygen came to ER with shortness of breath for 3 days, worse on exertion along with minimal dry cough but no wheezing. Patient main complaint is severe weakness gets easily short of breath on exertion, even on walking. She has mild chest tightness but nonspecific and generalized. She had 2 instances of epistaxis last week which was controlled spontaneously. She has history of lower GI bleed and had last colonoscopy in 2016 which revealed AVM which was cauterized in [facility]. As per patient, she also had 3 colonoscopy preferably annually from 2013- along with EGD for anemia. EGD did not reveals significant abnormality, done by Dr. Rudolph in the past. in ED, hemoglobin 7.1 g, MCV 100, leukocytes 11,000 platelet 394. BMP remarkable for bicarb more than 45 which is chronically elevated during previous admission in May 2017. She was last admitted in May 2017 for similar condition acute on chronic combined respiratory failure due to heart failure. Past Medical History Past Medical History (Chronic Problems): Chronic Problems (Last Updated 08/05/17 @ 09:29 by Yvette Cyr) Chronic diastolic (congestive) heart failure (Chronic) Diabetes mellitus (Chronic) Cerebral infarction, unspecified (Chronic) Palpitations (Chronic) COPD suggested by initial evaluation (Chronic) Anxiety (Chronic) Debility, unspecified (Chronic) Nonrheumatic aortic (valve) stenosis (Chronic) Left atrial enlargement (Chronic) Hypersomnia (Chronic) Anemia (Chronic) Carotid artery stenosis (Chronic) Chronic hypoxemic respiratory failure (Chronic) Pulmonary fibrosis (Chronic) 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 3 severe COPD by GOLD classification (Chronic) Aortic stenosis (Chronic) Moderate to severe with valve area 1.1 on cardiac catheterization in 2013 Diabetes mellitus type II (Chronic) Pulmonary hypertension (Chronic) With PA pressures 55 by cardiac catheterization Hypertension (Chronic) HLD (hyperlipidemia) (Chronic) 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) Medical History: Medical History (Last Updated 08/05/17 @ 09:29 by Yvette Cyr) Palpitations (Chronic) R00.2 Nonrheumatic aortic (valve) stenosis (Chronic) I35.0 Left atrial enlargement (Chronic) I51.7 Hypersomnia (Chronic) G47.10 Anemia (Chronic) D64.9 Carotid artery stenosis (Chronic) I65.29 Chronic hypoxemic respiratory failure (Chronic) J96.11 Pulmonary fibrosis (Chronic) J84.10 Tobacco dependence in remission (Chronic) F17.201 Stage 3 severe COPD by GOLD classification (Chronic) J44.9 Aortic stenosis (Chronic) Moderate to severe with valve area 1.1 on cardiac catheterization in 2013 Diabetes mellitus type II (Chronic) Pulmonary hypertension (Chronic) With PA pressures 55 by cardiac catheterization Hypertension (Chronic) I10 HLD (hyperlipidemia) (Chronic) E78.5 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 Blackmon in 2011, suspected AV malformations Acute on chronic anemia (Inactive) Allergies aspirin Allergy (Verified 05/30/17 11:59) anemia Home Medications: Ambulatory Orders Medication Instructions Recorded Metformin HCl [Glucophage] 1,000 mg PO BIDCM 01/15/14 Simvastatin [Zocor] 20 mg PO QHS 01/15/14 Ferrous Sulfate 325 mg PO BID 04/09/14 Escitalopram Oxalate [Lexapro] 10 mg PO DAILY 06/29/15 traZODone [Desyrel] 100 mg PO QHS PRN PRN 06/29/15 Budesonide/Formoterol Fumarate 2 puff IH BID 03/27/17 [Symbicort 160-4.5 Mcg Inhaler] Fluticasone 0.05% [Flonase Nasal 1 spray NASAL BID 04/24/17 [place]] Acetaminophen [Tylenol Tablet] 650 mg PO Q6H PRN PRN tablet 06/10/17 Albuterol Aerosols [Ventolin 2.5 mg INHALATION Q2H PRN PRN 06/10/17 Aerosols] vial.neb. Budesonide Aerosol [Pulmicort 0.5 mg INHALATION BID.RT 06/10/17 Respules] ampul.neb. Furosemide [Lasix] 40 mg PO BID@1000,1800 tablet 06/10/17 Gabapentin [Neurontin] 200 mg PO QHS capsule 06/10/17 Ipratropium/Albuterol Sulfate 3 ml INHALATION Q4H.RT ampul.neb 06/10/17 [Duoneb] Metoprolol Tartrate [Lopressor 50 mg PO BID tablet 06/10/17 (beta lorena)] Pantoprazole Sodium [Protonix] 20 mg PO DAILY tablet 06/10/17 Spironolactone [Aldactone] 25 mg PO DAILY tablet 06/10/17 Surgical History: herniorrhaphy, hysterectomy, - Psychiatric History: No pertinent psych hx [employer] History: No pertinent [employer] history Smoking Status: Never smoker - *Family History Paternal Family History: Family History (Last Reviewed 05/02/17 @ 11:14 by Yakelin Berkowitz) Mother Heart disease Father CAD (coronary artery disease) Hypertension Brother Hypertension History Items: Heart Disease Maternal Family History: Family History (Last Reviewed 05/02/17 @ 11:14 by Yakelin Berkowitz) Mother Heart disease Father CAD (coronary artery disease) Hypertension Brother Hypertension History Items: Heart Disease Review of Systems Constitutional: Reports: Weakness, Fatigue. Denies: Chills, Fever, Weight Change HEENT: Denies: Head Aches, Sinus Congestion, Sinus Drainage Cardiovascular: Reports: Chest Tightness, Edema. Denies: Chest Pain, Palpitations Respiratory: Reports: Cough, Shortness of Breath, Shortness of breath upon exertion. Denies: Shortness of breath at rest, Sputum production Gastrointestinal: Denies: Abdominal Pain, Constipation, Diarrhea, Hematemesis, Hematochezia, Nausea, Melena, Vomiting Genitourinary: Denies: Dysuria Musculoskeletal: Denies: Joint Pain, Joint Tenderness Skin: Denies: Rash, Wounds Neurological: Denies: Numbness, Tingling, Focal weakness Psychiatric: Denies: Anxiety, Depression, Homicidal Ideations, Suicidal Ideations Hematologic/ Lymphatic: Denies: Easy Bruising, Easy Bleeding VTE Information - Inpt Only VTE Present on Admission: No VTE Mechan Device Prophylaxis: Knee High ANG Hose Reason prophylaxis not ordered:: Medical Contraindication - Severe anemia Patient Problems: Active and Suspected Problems (Last Updated 08/05/17 @ 09:29 by Yvette Cyr) Acute on chronic severe anemia (Acute) COPD exacerbation (Acute) - Physical Exam General: Alert, Oriented x3, Cooperative HEENT: Atraumatic, PERRLA, EOMI, Normocephalic Oral: Dry Mucosa, - - No oropharyngeal inflammation/exudate Neck: Supple, No JVD, Negative Carotid Bruits Lungs: Diminished, Rhonchi - Expiratory Cardiovascular: Regular rate, Regular Rhythm, Normal S1, Normal S2, Murmur Abdomen: Bowel Sounds Present, Soft, Non Tender, Non-Distended Extremities: Capillary Refill Less than 3 Seconds, Edema Skin: No rashes, No breakdown Musculoskeletal: No Tenderness to Palpation of Joints or Extremities, Arthritic Changes Neurological: Cranial nerves II-XII grossly intact Psych/Mental Status: Normal Affect, Appropriate Vital Signs Temp Pulse Resp BP Pulse Ox 98.7 F 80 20 H 123/56 H 95 09/02/17 11:33 09/02/17 13:00 09/02/17 13:00 09/02/17 13:00 09/02/17 13:00 Oxygen Flow Rate (L/min) 6 Oxygen Delivery Method Nasal Cannula Weight: 250 lb Body Mass Index (BMI) 44.2 Laboratory Tests Past 24 Hrs 09/02/17 09/02/17 09/02/17 12:35 12:35 12:35 WBC 11.3 H RBC 2.63 L Hgb 7.1 L Hct 26.3 L MCV 100.0 H MCH 27.0 MCHC 27.0 L RDW 14.9 H RDW Differential 54.3 H Plt Count 394 MPV 8.9 Immature Gran % (Auto) 0.400 Neut % (Auto) 86.5 H Lymph % (Auto) 8.1 L Andrews % (Auto) 3.4 Eos % (Auto) 1.3 Baso % (Auto) 0.3 Absolute Neuts (auto) 9.7 H Absolute Lymphs (auto) 0.91 Total Counted Not Reportable Differential Comment SCANNED Platelet Estimate ADEQUATE Polychromasia 1+ Hypochromasia 2+ Anisocytosis 2+ Sodium 142 Potassium 3.7 Chloride 88 L Carbon Dioxide > 45.0 H* Anion Gap TNP BUN 14 Creatinine 0.94 Estim Creat Clear Calc 46.72 Est GFR (MDRD) Af Amer 76 Est GFR (MDRD) Non-Af 62 BUN/Creatinine Ratio 14.8 Glucose 216 H Calcium 8.5 Total Bilirubin 0.20 AST 6 L ALT 13 Alkaline Phosphatase 71 Troponin I 0.036 B-Natriuretic Peptide 112.9 H Total Protein 7.3 Albumin 3.3 Globulin 4.0 Albumin/Globulin Ratio 0.8 L Assessment/Plan All Active Problems (Last Updated 08/05/17 @ 09:29 by Yvette Cyr) Acute on chronic severe anemia (Acute) COPD exacerbation (Acute) Acute on chronic respiratory failure with hypoxia and hypercapnia (Acute) CVA (cerebral vascular accident) (Resolved) CVA (cerebral vascular accident) (Resolved) History of GI bleeding (Resolved) The patient is a 67 year old F with history of chronic diastolic heart failure and chronic hypoxic and hypercarbic respiratory failure on 6 L of home oxygen came to ER with shortness of breath for 3 days, worse on exertion along with minimal dry cough but no wheezing. Patient main complaint is severe weakness gets easily short of breath on exertion, even on walking. She has mild chest tightness but nonspecific and generalized. She had 2 instances of epistaxis last week which was controlled spontaneously. Currently she denies obvious external GI bleed including hematemesis, hematochezia or melena. She has history of lower GI bleed and had last colonoscopy in 2016 which revealed AVM which was cauterized in [facility]. As per patient, she also had 3 colonoscopy preferably annually from 2013- along with EGD for anemia. EGD did not reveals significant abnormality, done by Dr. Rudolph in the past. in ED, hemoglobin 7.1 g, MCV 100, leukocytes 11,000 platelet 394. BMP remarkable for bicarb more than 45 which is chronically elevated during previous admission in May 2017. She was last admitted in May 2017 for acute on chronic combined respiratory failure due to heart failure. In ER, EKG shows normal sinus rhythm with chronic right bundle branch block. 1. COPD exacerbation with chronic combined hypoxic and hypercarbic respiratory failure: Patient is being admitted in PCU. On bronchodilator, IV Solu-Medrol, IV Zithromax, incentive spirometry and chest physiotherapy. Patient given Levaquin ER. 2. Dyspnea on exertion predominantly from severe anemia acute on chronic anemia, : Hematocrit profile shows macrocytic anemia but has a history of GI bleed in the past. 1 unit of PRBC transition ordered. Repeat H&H posttransfusion. CBC tomorrow a.m. Stool for occult blood. 3. Chronic diastolic heart failure: There is no significant change in lower extremity edema as per the patient and chest x-ray not suggestive of fluid congestion although BNP is elevated probably chronically elevated. Continue home dose of Lasix 40 mg Twice daily. Continue cardiac medications. 4. Coronary artery disease: She had cardiac cath in May 2017 during last admission shows minimal coronary artery disease with mild aortic stenosis. 5. Type 2 diabetes mellitus: On Accu-Chek before meals and at bedtime and cover with NovoLog sliding scale. Hold metformin. On 1800 ADA diet. Other comorbidities include hypertension, dyslipidemia, pulmonary hypertension, chronic anemia and history of colonic AVMs status post cauterization in 2016. DVT prophylaxis: Pharmacological prophylaxis contraindicated in view of severe anemia. Bilateral knee-high ANG hose/Ryne wrap bandage Laboratory Results 09/02/17 12:35: WBC 11.3 H, RBC 2.63 L, Hgb 7.1 L, Hct 26.3 L, MCV 100.0 H, MCH 27.0, MCHC 27.0 L, RDW 14.9 H, RDW Differential 54.3 H, Plt Count 394, MPV 8.9, Immature Gran % (Auto) 0.400, Neut % (Auto) 86.5 H, Lymph % (Auto) 8.1 L, Andrews % (Auto) 3.4, Eos % (Auto) 1.3, Baso % (Auto) 0.3, Absolute Neuts (auto) 9.7 H, Absolute Lymphs (auto) 0.91, Total Counted Not Reportable, Differential Comment SCANNED, Platelet Estimate ADEQUATE, Polychromasia 1+, Hypochromasia 2+, Anisocytosis 2+ 09/02/17 12:35: Sodium 142, Potassium 3.7, Chloride 88 L, Carbon Dioxide > 45.0 H*, Anion Gap TNP, BUN 14, Creatinine 0.94, Estim Creat Clear Calc 46.72, Est GFR (MDRD) Af Amer 76, Est GFR (MDRD) Non-Af 62, BUN/Creatinine Ratio 14.8, Glucose 216 H, Calcium 8.5, Total Bilirubin 0.20, AST 6 L, ALT 13, Alkaline Phosphatase 71, Troponin I 0.036, Total Protein 7.3, Albumin 3.3, Globulin 4.0, Albumin/Globulin Ratio 0.8 L 09/02/17 12:35: B-Natriuretic Peptide 112.9 H Clinical Impression(s) from Imaging Studies Chest X-Ray 09/02/17 11:50 IMPRESSION: 1. No acute cardiopulmonary pathology. 2. COPD. 3. Cardiomegaly. 4. No significant interval changes when compared to 05/30/2017. Code Visit Inpatient E&M: 95768 Init Hosp L3
--- NOTE | 2017-09-02 14:10 | CM.ED ---
Social Work Note In to complete initial assessment as pt is to be admitted. Introduced self and role at [facility]. The pt reports to live with her spouse in a one-story home and denies access issues. There are SANDY with handrails and pt denies issues with these. She does not drive, and her primarily provides transportation. She claims to be independent with ADL's, but upon further discussion does state she would like to have someone to come help her into the shower and with dressing more than she has been able to. She does use a rollator at her baseline and claims to have just converted her tub into a walk in shower with grab bars. States she has recognized a recent decline in her ability to care for herself over the past month. She was in [facility] in May and [facility] with [facility] that were recently discontinued. At this time she anticipates returning home with some additional assistance if available. Pt confirms that her PCP is Dr. Chen and she also sees Dr. Dixon and Dr. Xavier. She is linked with palliative care services. Reports to have advanced directives completed and her spouse is her HCPOA. She has these documents at home if needed. No further needs identified at this time. RN CM to follow for discharge planning needs. Alejandra Harrison, BANKING ANALYST, COMPUTER SYSTEMS ANALYST
[2017-09-02] MEDS: levoFLOXacin IV 500 MG/100 ML BAG 100 MG IV (14:20)
--- NOTE | 2017-09-02 14:48 | NURSING ---
TWO FAILED ATTEMPTS AT OBTAINING UA DUE TO PATIENTS DIARRHEA. DR DAGOBERTO CLEMONS.
[2017-09-02 16:10] LABS: Bedside Glucose 143 mg/dL (70-110)
[2017-09-02] MEDS: Ferrous Sulfate 325 MG Tablet PO (16:34)
[2017-09-02 17:15] LABS: Ferritin 14 ng/mL (8-252); Iron 32 ug/dL (50-170); Iron Binding Capacity,Total 485 ug/dL (250-450); PERCENT IRON SATURATION 6.6 % (15.0-55.0)
[2017-09-02] MEDS: Fluticasone 0.05% 1 SPRAY NASAL.SRY NASAL (21:27)
[2017-09-02] MEDS: Insulin Lispro 100 UNIT/ML INSULN.PEN SQ (21:28)
[2017-09-02] MEDS: Furosemide 40 MG/4 ML Vial IV (21:29)
[2017-09-02] MEDS: guaiFENesin 1,200 MG Tablet 1200 MG PO (21:31)
[2017-09-02] MEDS: Atorvastatin Calcium 10 MG Tablet PO (21:32)
[2017-09-02 21:46] LABS: Bedside Glucose 259 mg/dL (70-110)
[2017-09-02] MEDS: Metoprolol Tartrate 25 MG Tablet PO (22:38)
[2017-09-03] VITALS (25 sets, daily range): BP systolic 106–136; BP diastolic 47–70; PULSE 71–104; RESP 14–19; TEMP 36.4–37; O2SAT 91–99
[2017-09-03] MEDS: traZODone 100 MG Tablet PO (00:12)
[2017-09-03 06:20] LABS: Absolute Lymphocyte Count 0.32 X10^3/ul (0.83-4.51); Basophil# 0.02 X10^3/uL; Basophil% 0.2 % (0-1); Eosinophil# 0.01 X10^3/uL; Eosinophils% 0.1 % (0-5); Hematocrit 26.9 % (37-47); Hemoglobin 7.5 g/dl (12.0-15.0); Lymphocyte # 0.32 X10^3/ul (4.0); Lymphocyte % 2.5 % (19-41); Mean Corp Hgb Conc 27.9 g/gl (32-36); Mean Corpuscular Hgb 27.9 pg (27.0-32.0); Mean Platelet Vol. 9.6 fl (6.2-12.0); Monocyte# 0.17 X10^3/uL; Monocyte% 1.3 % (0-10); Neutrophil # 12.02 X10^3/uL (2.7-7.7); Neutrophil % 95.4 % (47-70); Platelet Count 418 K/mm3 (150-450); RBC Distribution Width CV 14.9 % (11.6-14.6); RBC Distribution Width SD 51.8 fl (35.1-43.9); Red Blood Count 2.69 M/mm3 (4.2-5.4); White Blood Count 12.6 K/mm3 (4.4-11.0)
[2017-09-03 06:30] LABS: Differential Indicated SCAN CRITERIA MET; POSITIVE COUNT NO; POSITIVE DIFFERENTIAL YES; POSITIVE MORPHOLOGY NO
[2017-09-03 06:37] LABS: BUN 14 mg/dL (7-18); BUN/Creat Ratio 14.3 RATIO (10-20); Calcium,Total 8.4 mg/dL (8.5-10.1); Carbon Dioxide > 45.0 mmol/L (21.0-32.0); Chloride 88 mmol/L (98-107); Creatinine, Serum 0.98 mg/dL (0.55-1.02); EST Glomerular Filtration Rate 60 mL/min (>60); Est Glom Filt Rate - Afr Amer 72 mL/min (>60); Estimated Creatinine Clearance 44.82 ml/min; Glucose 218 mg/dL (74-106); Sodium Level 138 mmol/L (136-145)
[2017-09-03] MEDS: Ipratropium/Albuterol Sulfate 3 ML AMPUL.NEB INHALATION ×3 (06:54→19:18)
[2017-09-03 07:01] LABS: Bedside Glucose 315 mg/dL (70-110)
[2017-09-03] MEDS: Ferrous Sulfate 325 MG Tablet PO ×2 (07:48→16:08)
[2017-09-03] MEDS: Insulin Lispro 100 UNIT/ML INSULN.PEN SQ ×4 (07:48→21:21)
[2017-09-03 07:53] LABS: Hemoglobin A1c 5.2 % (4.2-6.3)
[2017-09-03] MEDS: Escitalopram Oxalate 10 MG Tablet PO (10:01)
[2017-09-03] MEDS: guaiFENesin 1,200 MG Tablet 1200 MG PO ×2 (10:01→21:25)
[2017-09-03] MEDS: Metoprolol Tartrate 50 MG Tablet PO ×2 (10:01→21:24)
[2017-09-03] MEDS: Furosemide 40 MG/4 ML Vial IV ×2 (10:01→21:23)
[2017-09-03] MEDS: Fluticasone 0.05% 1 SPRAY NASAL.SRY NASAL (10:01)
[2017-09-03] MEDS: Ondansetron 4 MG/2 ML Vial IV (11:15)
[2017-09-03 11:31] LABS: Bedside Glucose 402 mg/dL (70-110)
[2017-09-03] MEDS: Pantoprazole Sodium 40 MG Tablet PO (13:39)
[2017-09-03 16:15] LABS: Bedside Glucose 223 mg/dL (70-110)
--- NOTE | 2017-09-03 20:56 | PCM.PROGNOTE ---
Subjective: Patient was seen and examined today, she did not complain of any increased shortness of breath to this examiner, on examination today, her lungs were clear bilaterally, I do not believe she has an exacerbation of COPD I think that her shortness of breath and generalized weakness was from her anemia compounded with her chronic lung disease and chronic hypoxic respiratory failure. I stop the patient's IV Solu-Medrol today and recommended that we give her additional packed red blood cells, I will recheck her H&H in the morning, I also ordered Venofer due to her iron deficiency anemia. Patient states she has had a history of anemia and has had AVMs diagnosed in the past, these were diagnosed at the [facility] in [facility]. Patient has frequent CBCs performed by her PCP to monitor her blood count. I also stopped the patient's Zithromax today-I do not believe she needs this medication. - Physical Exam General: Alert, Oriented x3, Cooperative, No apparent distress, Well developed HEENT: Atraumatic, PERRLA, EOMI, Normocephalic Oral: Moist Mucosa Neck: Supple, No JVD, No Nuchal Rigidity, Trachea Midline, Thyroid Normal Size and Texture Lungs: Clear to auscultation, No rhonchi, No wheeze, Diminished, Rales - Fine inspiratory rales at the bases bilaterally Cardiovascular: Regular rate, Regular Rhythm, Normal S1, Normal S2, No murmurs, No Ectopic Activity, PMI Normal, No rub noted, No Gallop Abdomen: Bowel Sounds Present, Soft, Non Tender, No hernias noted Extremities: No clubbing, No cyanosis, No edema, Capillary Refill Less than 3 Seconds Skin: No rashes, No breakdown Musculoskeletal: No Tenderness to Palpation of Joints or Extremities Neurological: Cranial nerves II-XII grossly intact, Neuro grossly intact, Sensory exam intact to light touch and pain Psych/Mental Status: Normal Affect, Appropriate, Alert and oriented to time, place, person, mood and affect Vital Signs Temp Pulse Resp BP Pulse Ox 98.6 F 85 18 110/53 L 92 09/03/17 20:00 09/03/17 20:00 09/03/17 20:00 09/03/17 20:00 09/03/17 20:00 Oxygen Flow Rate (L/min) 6 Oxygen Delivery Method Nasal Cannula Weight: 112.8 kg Body Mass Index (BMI) 44.0 Intake and Output for Last 24 Hours 09/01/17 09/02/17 09/03/17 23:59 23:59 23:59 Intake Total 835 / 835 1683 / 1683 Output Total 1100 / 1100 1000 / 1000 Balance -265 / -265 683 / 683 Microbiology Past 72 Hours 09/02/17 19:35 Influenza Types A,B Direct FA (TESS) - Final Mucosa - Nasopharyngeal Laboratory Tests Past 24 Hrs 09/02/17 09/02/17 09/03/17 16:00 16:00 05:20 WBC 12.6 H RBC 2.69 L Hgb 7.5 L Hct 26.9 L MCV 100.0 H MCH 27.9 MCHC 27.9 L RDW 14.9 H RDW Differential 51.8 H Plt Count 418 MPV 9.6 Immature Gran % (Auto) 0.500 Neut % (Auto) 95.4 H Lymph % (Auto) 2.5 L Rolette % (Auto) 1.3 Eos % (Auto) 0.1 Baso % (Auto) 0.2 Absolute Neuts (auto) 12.0 H Absolute Lymphs (auto) 0.32 L Total Counted Not Reportable Sodium Potassium Chloride Carbon Dioxide Anion Gap BUN Creatinine Estim Creat Clear Calc Est GFR (MDRD) Af Amer Est GFR (MDRD) Non-Af BUN/Creatinine Ratio Glucose Hemoglobin A1c Calcium Crossmatch See Detail See Detail 09/03/17 09/03/17 05:20 05:20 WBC RBC Hgb Hct MCV MCH MCHC RDW RDW Differential Plt Count MPV Immature Gran % (Auto) Neut % (Auto) Lymph % (Auto) Rolette % (Auto) Eos % (Auto) Baso % (Auto) Absolute Neuts (auto) Absolute Lymphs (auto) Total Counted Sodium 138 Potassium 4.0 Chloride 88 L Carbon Dioxide > 45.0 H* Anion Gap TNP BUN 14 Creatinine 0.98 Estim Creat Clear Calc 44.82 Est GFR (MDRD) Af Amer 72 Est GFR (MDRD) Non-Af 60 BUN/Creatinine Ratio 14.3 Glucose 218 H Hemoglobin A1c 5.2 Calcium 8.4 L Crossmatch POC Glucose 09/03/17 09/03/17 09/03/17 16:07 11:14 06:56 POC Glucose 223 H 402 H 315 H 09/02/17 21:24 POC Glucose 259 H Medical Necessity - Tobacco Use Smoking Status: Former smoker Assessment/Plan All Active Problems (Last Updated 08/05/17 @ 09:29 by Yvette Cyr) Acute on chronic severe anemia (Acute) COPD exacerbation (Acute) Acute on chronic respiratory failure with hypoxia and hypercapnia (Acute) CVA (cerebral vascular accident) (Resolved) CVA (cerebral vascular accident) (Resolved) History of GI bleeding (Resolved) #1 dyspnea on exertion secondary to severe chronic anemia and patient will be given packed red blood cells labs will be rechecked #2 severe chronic anemia-etiology unclear #3 chronic obstructive pulmonary disease without exacerbation #4 chronic hypoxic respiratory failure secondary to COPD Code Visit Inpatient E&M: 47934 Subs Hosp L2
[2017-09-03] MEDS: Atorvastatin Calcium 10 MG Tablet PO (21:24)
[2017-09-03 23:31] LABS: Bedside Glucose 236 mg/dL (70-110)
[2017-09-04] VITALS (14 sets, daily range): BP systolic 116–136; BP diastolic 46–70; PULSE 63–78; RESP 14–18; TEMP 36.4–36.9; O2SAT 96–99
[2017-09-04 05:38] LABS: Hematocrit 32.5 % (37-47); Hemoglobin 9.7 g/dl (12.0-15.0)
[2017-09-04 06:56] LABS: Bedside Glucose 143 mg/dL (70-110)
[2017-09-04] MEDS: Ipratropium/Albuterol Sulfate 3 ML AMPUL.NEB INHALATION ×3 (07:19→15:04)
[2017-09-04] MEDS: Metoprolol Tartrate 50 MG Tablet PO (08:57)
[2017-09-04] MEDS: guaiFENesin 1,200 MG Tablet 1200 MG PO (08:58)
[2017-09-04] MEDS: Fluticasone 0.05% 1 SPRAY NASAL.SRY NASAL (08:58)
[2017-09-04] MEDS: Furosemide 40 MG/4 ML Vial IV (08:58)
[2017-09-04] MEDS: Escitalopram Oxalate 10 MG Tablet PO (08:58)
[2017-09-04] MEDS: Ferrous Sulfate 325 MG Tablet PO (08:58)
[2017-09-04] MEDS: Insulin Lispro 100 UNIT/ML INSULN.PEN SQ (11:30)
[2017-09-04] MEDS: Ondansetron 4 MG/2 ML Vial IV (11:33)
[2017-09-04] MEDS: 0.9% NaCl Peripheral Flush Adult/Peds IV ×2 (11:33→15:01)
[2017-09-04 11:35] LABS: Bedside Glucose 176 mg/dL (70-110)
--- NOTE | 2017-09-04 15:33 | PCM.DC ---
- Discharge Diagnoses Current Active Problems: Current Active and Chronic Problems (Last Updated 08/05/17 @ 09:29 by Yvette Cyr) Acute on chronic severe anemia (Acute) COPD exacerbation (Acute) You will use the following diet at home:: Calorie/Carbohydrate Controlled (specify 1200, 1400, etc) - 1800 edilma Your food should be the consistency of: Regular Your liquids should be the consistency of: Regular/Thin Discharge Activity: Return to Normal Activity Weight Bearing Status: Full weight bearing Allergies/Adverse Reactions: Allergies No Known Allergies Allergy (Verified 09/02/17 15:11) Medications to take at Discharge Metformin HCl [Glucophage] 1,000 mg PO BIDCM 01/15/14 Simvastatin [Zocor] 20 mg PO QHS 01/15/14 Ferrous Sulfate 325 mg PO BID 04/09/14 Escitalopram Oxalate [Lexapro] 10 mg PO DAILY 06/29/15 traZODone [Desyrel] 100 mg PO QHS PRN PRN 06/29/15 Budesonide/Formoterol Fumarate [Symbicort 160-4.5 Mcg Inhaler] 2 puff IH BID 03/27/17 Fluticasone 0.05% [Flonase Nasal [place]] 1 spray NASAL BID 04/24/17 Acetaminophen [Tylenol Tablet] 650 mg PO Q6H PRN PRN tablet 06/10/17 Albuterol Aerosols [Ventolin Aerosols] 2.5 mg INHALATION Q2H PRN PRN vial.neb. 06/10/17 Budesonide Aerosol [Pulmicort Respules] 0.5 mg INHALATION BID.RT ampul.neb. 06/10/17 Ipratropium/Albuterol Sulfate [Duoneb] 3 ml INHALATION Q4H.RT ampul.neb 06/10/17 Metoprolol Tartrate [Lopressor (beta lorena)] 50 mg PO BID tablet 06/10/17 Furosemide [Lasix] 40 mg PO DAILY 09/02/17 Furosemide [Lasix] 80 mg PO BREAKFAST 09/02/17 Primary Care Physician: Vic Chen MD [Primary Care Provider] - Please follow up with your Primary Care Physician in: in 7-10 days
--- NOTE | 2017-09-04 15:36 | DCINST_ITS ---
- Discharge Diagnoses Current Active Problems: Current Active and Chronic Problems (Last Updated 08/05/17 @ 09:29 by Yvette Cyr) Acute on chronic severe anemia (Acute) COPD exacerbation (Acute) You will use the following diet at home:: Calorie/Carbohydrate Controlled ( specify 1200, 1400, etc) - 1800 edilma Your food should be the consistency of: Regular Your liquids should be the consistency of: Regular/Thin Discharge Activity: Return to Normal Activity Weight Bearing Status: Full weight bearing Allergies/Adverse Reactions: Allergies No Known Allergies Allergy (Verified 09/02/17 15:11) Medications to take at Discharge Metformin HCl [Glucophage] 1,000 mg PO BIDCM 01/15/14 Simvastatin [Zocor] 20 mg PO QHS 01/15/14 Ferrous Sulfate 325 mg PO BID 04/09/14 Escitalopram Oxalate [Lexapro] 10 mg PO DAILY 06/29/15 traZODone [Desyrel] 100 mg PO QHS PRN PRN 06/29/15 Budesonide/Formoterol Fumarate [Symbicort 160-4.5 Mcg Inhaler] 2 puff IH BID 01/02 Fluticasone 0.05% [Flonase Nasal [place]] 1 spray NASAL BID 04/24/17 Acetaminophen [Tylenol Tablet] 650 mg PO Q6H PRN PRN tablet 06/10/17 Albuterol Aerosols [Ventolin Aerosols] 2.5 mg INHALATION Q2H PRN PRN vial.neb. 06/10/17 Budesonide Aerosol [Pulmicort Respules] 0.5 mg INHALATION BID.RT ampul.neb. Ipratropium/Albuterol Sulfate [Duoneb] 3 ml INHALATION Q4H.RT ampul.neb Metoprolol Tartrate [Lopressor (beta lorena)] 50 mg PO BID tablet 06/10/17 Furosemide [Lasix] 40 mg PO DAILY 09/02/17 Furosemide [Lasix] 80 mg PO BREAKFAST 09/02/17 Primary Care Physician: Vic Chen MD [Primary Care Provider] - Please follow up with your Primary Care Physician in: in 7-10 days
--- NOTE | 2017-09-06 15:36 | CASEMGMT ---
YASMINE ARREAGA Discharge F/U phone call LACIngrid: 13 Strata: 4 Discharge date: 09/04/17 Call date/time: 09/06/17 1794 Duration: 3 minutes Admission dx: Dyspnea on exertion, COPD exac, anemia Pt states 'hasn't been feeling real good' since has been home but states 'you all did all that you could for me.' Pt states that she has been 'really, really tired' since discharge. Pt states no questions regarding discharge medications or instructions at this time. Pt states that she has a f/u appt scheduled next week with her PCP and plans to keep it. Pt states no suggestions for [facility] at this time. Pt states that she has not had much of an appetite since discharge but has been drinking fluid and eating popsicles. Pt states that she is just 'laying low' until she starts to feel better. Pt states no further questions/concerns/needs at this time and is aware that she can call this RN CM back as needed. S[place]en YASMINE ARREAGA
--- NOTE | 2017-09-07 17:28 | PCM.DC.SUM ---
Discharge Date and Diagnosis Date of Admission: 09/02/17 Date of Discharge: 09/04/17 - Primary Discharge Diagnosis #1 increased dyspnea secondary to acute on chronic iron deficiency anemia-etiology unclear #2 acute on chronic iron deficiency anemia-etiology unclear #3 COPD without exacerbation #4 chronic hypoxic respiratory failure secondary to COPD - Secondary Discharge Diagnosis Chronic Problems (Last Updated 08/05/17 @ 09:29 by Yvette Cyr) Chronic diastolic (congestive) heart failure (Chronic) Diabetes mellitus (Chronic) Cerebral infarction, unspecified (Chronic) Palpitations (Chronic) COPD suggested by initial evaluation (Chronic) Anxiety (Chronic) Debility, unspecified (Chronic) Nonrheumatic aortic (valve) stenosis (Chronic) Left atrial enlargement (Chronic) Hypersomnia (Chronic) Anemia (Chronic) Carotid artery stenosis (Chronic) Chronic hypoxemic respiratory failure (Chronic) Pulmonary fibrosis (Chronic) 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 3 severe COPD by GOLD classification (Chronic) Aortic stenosis (Chronic) Moderate to severe with valve area 1.1 on cardiac catheterization in 2013 Diabetes mellitus type II (Chronic) Pulmonary hypertension (Chronic) With PA pressures 55 by cardiac catheterization Hypertension (Chronic) HLD (hyperlipidemia) (Chronic) 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 Patient is on chronic oxygen at home due to chronic hypoxic respiratory failure from COPD. Workup in the emergency room included a chest x-ray and labs, labs showed her to be severely anemic with a hemoglobin of 7.1, chest x-ray did not show any acute changes. Admitting hospital physician felt that the patient had an exacerbation of COPD as did the emergency room physician but it was my opinion on further examination of the patient on 09/03/17 that her dyspnea was more than likely related to her severe anemia with the backdrop of chronic hypoxic respiratory failure. Patient was admitted to PCU, initially she was placed on IV Solu-Medrol and IV Zithromax, these were stopped the next day when I saw the patient. She received a total of 4 units of packed red blood cells and this appeared to stabilize the patient's dyspnea. Iron studies performed on the patient during her hospitalization showed her to be iron deficient, she was given IV Venofer. Exact etiology of her anemia was unknown, it has been worked up as an outpatient. On 09/04/17, patient was seen and examined and felt to be in stable condition for discharge home Discharge Activity: Return to Normal Activity Weight Bearing Status: Full weight bearing Home Medications: Medications to take at Discharge Metformin HCl [Glucophage] 1,000 mg PO BIDCM 01/15/14 Simvastatin [Zocor] 20 mg PO QHS 01/15/14 Ferrous Sulfate 325 mg PO BID 04/09/14 Escitalopram Oxalate [Lexapro] 10 mg PO DAILY 06/29/15 traZODone [Desyrel] 100 mg PO QHS PRN PRN 06/29/15 Budesonide/Formoterol Fumarate [Symbicort 160-4.5 Mcg Inhaler] 2 puff IH BID 03/27/17 Fluticasone 0.05% [Flonase Nasal [place]] 1 spray NASAL BID 04/24/17 Acetaminophen [Tylenol Tablet] 650 mg PO Q6H PRN PRN tablet 06/10/17 Albuterol Aerosols [Ventolin Aerosols] 2.5 mg INHALATION Q2H PRN PRN vial.neb. 06/10/17 Budesonide Aerosol [Pulmicort Respules] 0.5 mg INHALATION BID.RT ampul.neb. 06/10/17 Ipratropium/Albuterol Sulfate [Duoneb] 3 ml INHALATION Q4H.RT ampul.neb 06/10/17 Metoprolol Tartrate [Lopressor (beta lorena)] 50 mg PO BID tablet 06/10/17 Furosemide [Lasix] 40 mg PO DAILY 09/02/17 Furosemide [Lasix] 80 mg PO BREAKFAST 09/02/17 Primary Care Physician: Vic Chen MD [Primary Care Provider] - Please follow up with your Primary Care Physician in: in 7-10 days Please Follow Up With: Vic Chen MD Disposition: Home Minutes spent on discharge:: 32 Patient Condition:: Stable Medical Necessity - Tobacco Use Smoking Status: Former smoker Meaningful Use Info Meaningful Use Diagnoses (Choose all that apply): None applicable Code Visit Inpatient E&M: 02195 Disch Hosp
--- NOTE | 2017-09-07 17:32 | DS.PCM_ITS ---
Discharge Date and Diagnosis Date of Admission: 09/02/17 Date of Discharge: 09/04/17 - Primary Discharge Diagnosis #1 increased dyspnea secondary to acute on chronic iron deficiency anemia- etiology unclear #2 acute on chronic iron deficiency anemia-etiology unclear #3 COPD without exacerbation #4 chronic hypoxic respiratory failure secondary to COPD - Secondary Discharge Diagnosis Chronic Problems (Last Updated 08/05/17 @ 09:29 by Yvette Cyr) Chronic diastolic (congestive) heart failure (Chronic) Diabetes mellitus (Chronic) Cerebral infarction, unspecified (Chronic) Palpitations (Chronic) COPD suggested by initial evaluation (Chronic) Anxiety (Chronic) Debility, unspecified (Chronic) Nonrheumatic aortic (valve) stenosis (Chronic) Left atrial enlargement (Chronic) Hypersomnia (Chronic) Anemia (Chronic) Carotid artery stenosis (Chronic) Chronic hypoxemic respiratory failure (Chronic) Pulmonary fibrosis (Chronic) 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 3 severe COPD by GOLD classification (Chronic) Aortic stenosis (Chronic) Moderate to severe with valve area 1.1 on cardiac catheterization in 2013 Diabetes mellitus type II (Chronic) Pulmonary hypertension (Chronic) With PA pressures 55 by cardiac catheterization Hypertension (Chronic) HLD (hyperlipidemia) (Chronic) 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 Patient is on chronic oxygen at home due to chronic hypoxic respiratory failure from COPD. Workup in the emergency room included a chest x-ray and labs, labs showed her to be severely anemic with a hemoglobin of 7.1, chest x-ray did not show any acute changes. Admitting hospital physician felt that the patient had an exacerbation of COPD as did the emergency room physician but it was my opinion on further examination of the patient on 09/03/17 that her dyspnea was more than likely related to her severe anemia with the backdrop of chronic hypoxic respiratory failure. Patient was admitted to PCU, initially she was placed on IV Solu-Medrol and IV Zithromax, these were stopped the next day when I saw the patient. She received a total of 4 units of packed red blood cells and this appeared to stabilize the patient's dyspnea. Iron studies performed on the patient during her hospitalization showed her to be iron deficient, she was given IV Venofer. Exact etiology of her anemia was unknown, it has been worked up as an outpatient. On 09/04/17, patient was seen and examined and felt to be in stable condition for discharge home Discharge Activity: Return to Normal Activity Weight Bearing Status: Full weight bearing Home Medications: Medications to take at Discharge Metformin HCl [Glucophage] 1,000 mg PO BIDCM 01/15/14 Simvastatin [Zocor] 20 mg PO QHS 01/15/14 Ferrous Sulfate 325 mg PO BID 04/09/14 Escitalopram Oxalate [Lexapro] 10 mg PO DAILY 06/29/15 traZODone [Desyrel] 100 mg PO QHS PRN PRN 06/29/15 Budesonide/Formoterol Fumarate [Symbicort 160-4.5 Mcg Inhaler] 2 puff IH BID 01/02 Fluticasone 0.05% [Flonase Nasal [place]] 1 spray NASAL BID 04/24/17 Acetaminophen [Tylenol Tablet] 650 mg PO Q6H PRN PRN tablet 06/10/17 Albuterol Aerosols [Ventolin Aerosols] 2.5 mg INHALATION Q2H PRN PRN vial.neb. 06/10/17 Budesonide Aerosol [Pulmicort Respules] 0.5 mg INHALATION BID.RT ampul.neb. Ipratropium/Albuterol Sulfate [Duoneb] 3 ml INHALATION Q4H.RT ampul.neb Metoprolol Tartrate [Lopressor (beta lorena)] 50 mg PO BID tablet 06/10/17 Furosemide [Lasix] 40 mg PO DAILY 09/02/17 Furosemide [Lasix] 80 mg PO BREAKFAST 09/02/17 Primary Care Physician: Vic Chen MD [Primary Care Provider] - Please follow up with your Primary Care Physician in: in 7-10 days Please Follow Up With: Vic Chen MD Disposition: Home Minutes spent on discharge:: 32 Patient Condition:: Stable Medical Necessity - Tobacco Use Smoking Status: Former smoker Meaningful Use Info Meaningful Use Diagnoses (Choose all that apply): None applicable Code Visit Inpatient E&M: 59700 Disch Hosp
== END 2017-09-04 16:14 | disposition home or self-care (01) | DRG 812 ==
LOC: ED 12:13 → PCU 15:24
PROVIDERS: Admitting Provider Internal Medicine; Emergency Provider Emergency Medicine; Family Provider Family Medicine; PCP Family Medicine; Visit Provider Internal Medicine
DX: D50.9 Iron deficiency anemia, unspecified (principal); J96.11 Chronic respiratory failure with hypoxia; I50.32 Chronic diastolic (congestive) heart failure; J44.9 Chronic obstructive pulmonary disease, unspecified; I11.0 Hypertensive heart disease with heart failure; Z99.81 Dependence on supplemental oxygen; I25.10 Atherosclerotic heart disease of native coronary artery without angina pectoris; E11.9 Type 2 diabetes mellitus without complications; I35.0 Nonrheumatic aortic (valve) stenosis; E78.5 Hyperlipidemia, unspecified; I27.20 Pulmonary hypertension, unspecified; Z79.84 Long term (current) use of oral hypoglycemic drugs; Z79.899 Other long term (current) drug therapy; F41.9 Anxiety disorder, unspecified; F17.201 Nicotine dependence, unspecified, in remission; Z87.19 Personal history of other diseases of the digestive system; J84.10 Pulmonary fibrosis, unspecified; Z86.73 Personal history of transient ischemic attack (TIA), and cerebral infarction without residual deficits; R53.81 Other malaise; I65.29 Occlusion and stenosis of unspecified carotid artery
CPT/HCPCS: 36415; 71045; 80048; 80053; 82728; 82962; 83036; 83540; 83550; 83880; 84484; 85014; 85018; 85025; 86644; 86850; 86900; 86901; 86920; 87804; 93005; 94640; 94667; 94668; 97116; 97162; 97165; 97530; 99285; J1756; J7050; P9016; A4216; J1940; J2405

== ENCOUNTER → 2017-09-12 11:46 | Outpatient (CLI) | payer MEDICARE, OTHER, SELFPAY ==
[2017-09-12 13:51] LABS: Absolute Lymphocyte Count 0.88 X10^3/ul (0.83-4.51); Basophil# 0.02 X10^3/uL; Basophil% 0.2 % (0-1); Eosinophil# 0.03 X10^3/uL; Eosinophils% 0.3 % (0-5); Hemoglobin 9.2 g/dl (12.0-15.0); Lymphocyte # 0.88 X10^3/ul (4.0); Lymphocyte % 8.6 % (19-41); Mean Corp Hgb Conc 27.9 g/gl (32-36); Mean Corpuscular Hgb 27.1 pg (27.0-32.0); Mean Corpuscular Volume 97.1 fL (81-99); Mean Platelet Vol. 9.8 fl (6.2-12.0); Monocyte# 0.37 X10^3/uL; Monocyte% 3.6 % (0-10); Neutrophil # 8.97 X10^3/uL (2.7-7.7); Neutrophil % 87.1 % (47-70); POSITIVE COUNT NO; POSITIVE DIFFERENTIAL NO; POSITIVE MORPHOLOGY NO; Platelet Count 349 K/mm3 (150-450); RBC Distribution Width SD 53.3 fl (35.1-43.9); White Blood Count 10.3 K/mm3 (4.4-11.0)
== END ==
PROVIDERS: Family Provider Family Medicine; PCP Family Medicine; Visit Provider Family Medicine
DX: D64.9 Anemia, unspecified (principal)
CPT/HCPCS: 36415; 85025

== ENCOUNTER → 2017-09-20 14:50 | Outpatient (CLI) | payer MEDICARE, OTHER, SELFPAY ==
--- NOTE | 2017-09-20 14:53 | BI_ITS ---
MAMMOGRAPHY - BILATERAL SCREENING REASON FOR EXAM: Female, 67 years old. Routine annual screening examination. PERTINENT HISTORY: Aunt with breast cancer. TECHNIQUE: Digital bilateral breast ruben (3D mammographic acquisition) in the CC and MLO projections. 2-D mediolateral oblique (MLO) and craniocaudad (CC) views of both breasts were obtained. CAD: Full Field Digital Mammography with Computer Added Detection was performed. COMPARISON: Comparison is made with prior study dated September 05, 2016 and August 22, 2015. FINDINGS: Breast Composition: The breasts are almost entirely fatty. There are no dominant masses or suspicious calcifications. No other significant abnormalities are identified. There has been no significant change since the prior study. BI/SCREENING MAMM (CAD), BILAT IMPRESSION: Stable bilateral screening mammogram. Yearly follow-up mammogram recommended. (A) ASSESSMENT CATEGORY: BIRADS Category 1: Negative. A letter regarding these results will be sent to the patient by the facility within 30 days. Approximately 10% of breast cancers are not detected by mammography. A normal mammogram should not delay biopsy of a clinically suspicious abnormality. [id number] Electronically Signed: Jonah Conner MD at 8:17 EDT Tel [phone], Service support ,
== END ==
PROVIDERS: Family Provider Family Medicine; PCP Family Medicine; Visit Provider Family Medicine
DX: Z12.31 Encounter for screening mammogram for malignant neoplasm of breast (principal)
CPT/HCPCS: 77063; 77067

== ENCOUNTER → 2017-11-25 10:09 | Outpatient (CLI) | payer MEDICARE, OTHER, SELFPAY ==
[2017-11-25 13:06] LABS: AST(SGOT) 11 U/L (15-37); Alanine Aminotransfer ALT/SGPT 18 U/L (13-56); Albumin, Serum 3.4 g/dL (3.2-5.0); Alkaline Phosphatase 82 U/L (45-117); Anion Gap 8 (5-15); BUN 18 mg/dL (7-18); Bilirubin, Direct 0.09 mg/dL (0.00-0.30); Calcium,Total 8.6 mg/dL (8.5-10.1); Chloride 91 mmol/L (98-107); Cholesterol 141 mg/dL (200); EST Glomerular Filtration Rate 59 mL/min (>60); Est Glom Filt Rate - Afr Amer 71 mL/min (>60); Globulin 3.6 g/dL (2.2-4.2); Glucose 159 mg/dL (74-106); High Density Lipoprotein 34 mg/dL; Sodium Level 142 mmol/L (136-145); Triglycerides 218 mg/dL; Very Low Density Lipoprotein 44 mg/dL (5-40)
[2017-11-25 13:09] LABS: Absolute Lymphocyte Count 0.62 X10^3/ul (0.83-4.51); Absolute Neutrophil Count 8.3 X10^3/uL (2.0-7.7); Basophil# 0.04 X10^3/uL; Basophil% 0.4 % (0-1); Eosinophil# 0.14 X10^3/uL; Eosinophils% 1.4 % (0-5); Hemoglobin 9.1 g/dl (12.0-15.0); Lymphocyte # 0.62 X10^3/ul (4.0); Lymphocyte % 6.3 % (19-41); Mean Corp Hgb Conc 27.6 g/gl (32-36); Mean Corpuscular Hgb 26.3 pg (27.0-32.0); Mean Corpuscular Volume 95.4 fL (81-99); Monocyte# 0.69 X10^3/uL; Neutrophil # 8.28 X10^3/uL (2.7-7.7); Neutrophil % 84.5 % (47-70); Platelet Count 447 K/mm3 (150-450); RBC Distribution Width CV 14.7 % (11.6-14.6); RBC Distribution Width SD 50.8 fl (35.1-43.9); Red Blood Count 3.46 M/mm3 (4.2-5.4); White Blood Count 9.8 K/mm3 (4.4-11.0)
[2017-11-25 13:11] LABS: POSITIVE COUNT NO; POSITIVE DIFFERENTIAL NO; POSITIVE MORPHOLOGY NO
[2017-11-25 13:28] LABS: Microalbumin,Random Urine 13.9 mg/L (NO RANGE EST.); Microalbumin:Creatinine Ratio 41.6 mg/g CRE (<30 mg/g CRE)
== END ==
PROVIDERS: Family Provider Family Medicine; PCP Family Medicine; Visit Provider Family Medicine
DX: E11.9 Type 2 diabetes mellitus without complications (principal); D64.9 Anemia, unspecified
CPT/HCPCS: 36415; 80048; 80061; 80076; 82043; 82570; 85025

== ENCOUNTER 2018-01-02 14:59 | Inpatient (IN) | payer MEDICARE, OTHER, SELFPAY ==
[2018-01-02] VITALS (12 sets, daily range): BP systolic 101–131; BP diastolic 33–89; PULSE 74–98; RESP 18–22; TEMP 36.6–37.1; O2SAT 92–96; BMI 44.2; BMI 44.3; BMI 45.4
--- NOTE | 2018-01-02 15:13 | RAD_ITS ---
STUDY: X-RAY CHEST REASON FOR EXAM: Female, 67 years old. Shortness of breath TECHNIQUE: Portable upright chest COMPARISON: 09/02/2017 chest x-ray. CT chest 04/25/2017.. FINDINGS: There is stable mild prominence of the right hilum, consistent with previously seen borderline enlarged lymph nodes on the CT study of 04/25/2017. There is mild perihilar interstitial prominence bilaterally, mild pulmonary vascular prominence, no dense focal infiltrate or consolidation, no apparent effusion or pneumothorax. Mild cardiomegaly. Normal mediastinal silhouette. No apparent aortomegaly. No acute osseous or upper abdominal process. RAD/Chest 1 View (Portable) IMPRESSION: Mild perihilar interstitial and vascular prominence in the lungs may be related to technique. Differential considerations include mild CHF, or mild pneumonitis. There is no focal infiltrate and no visible effusion. Electronically Signed: Ron Sommer, at 15:37 EDT Tel , Service support ,
--- NOTE | 2018-01-02 15:13 | EKG12_ITS ---
Test Reason : SOB Blood Pressure : / mmHG Vent. Rate : 091 BPM Atrial Rate : 091 BPM P-R Int : 146 ms QRS Dur : 144 ms QT Int : 408 ms P-R-T Axes : 065 102 025 degrees QTc Int : 501 ms Normal sinus rhythm Right bundle branch block Abnormal ECG Confirmed by HARMAN GAMBOA, DEVIN ([id number]), supervising editor trailer FRANSISCA BETANCOURT ([id number]) on 01/06/2018 12:41:46 PM Referred By: SUSANNA Confirmed By:DEVIN HAMMER MD
--- NOTE | 2018-01-02 15:22 | ED.VISSUMM ---
- ER Visit Summary Date of Service: 01/02/18 Chief Complaint: [] The patient complains of progressively worsening shortness of breath for about 3 weeks History of Present Illness: The patient is a 67 F [] history of COPD on 5 L home O2, unspecified cardiac valve disorder and anemia. She indicates for the last 3 weeks she has had progressively worsening shortness of breath to the point that anytime of exertion caused her to get quite dyspneic. She also leaves she has had some weight gain. She has had no fever no cough no chest pain she has no history of OK PE or DVT. She seen by Dr. Dixon and Dr. Xavier, she had a routine follow-up of Dr. Xavier today in the office after evaluation she was told she should go to the emergency department for her worsening dyspnea Indication had normal bowel bladder habits, she has had prior blood transfusion related to unspecified anemia one time it was related to AVM malformation in the colon and other times unspecified Physical Examination: [] Her vital signs are within normal range her pulse ox is 92, 5 L, she states she feels fine but she cannot exert herself even minimally without getting short of breath she speaking in full sentences, her HEENT exam is unremarkable, her neck shows no obvious JVD, her lungs are diminished, her heart tones reveal a soft blowing murmur grade 2 out of 3, regular, the abdomen is obese but soft, and she has 3+ chronic lower extremity edema that she really not new neurologically is awake moving all 4 Test Results: [] Emergency Department Course and Treatment: [] Screening labs therapy The patient's chest x-ray shows signs of congestive heart failure, see that report, her laboratory evaluation reveals a hemoglobin of 8 her baseline is anywhere from 7-10, her troponin is 0.07, the EKG shows a sinus rhythm right bundle nothing acute, we did order 1 dose of Lasix, we did type and screen her as she reports when she becomes anemic she gets very dyspneic and symptomatic She continued to complain of being dyspneic by being on the oxygen etc. given her age given her complaints given her valvular heart disease I have asked the hospital see her for further management and admission for all the above Treatment Plan: [] Disposition: [] Admit stable Impression: [] Acute exacerbation of COPD, CHF, acute anemia, valvular heart disease This note was generated with Dragon dictation software. It may contain incorrect words, spelling, and punctuation that were not noted in review of the chart prior to signing ED Disposition - Plan for ED Patient: Chief Complaint: Shortness of Breath Referrals: Vic Chen MD [Primary Care Provider] -
[2018-01-02] MEDS: Ipratropium/Albuterol Sulfate 3 ML AMPUL.NEB INHALATION ×3 (15:28→23:38)
[2018-01-02 16:09] LABS: Absolute Lymphocyte Count 1.16 X10^3/ul (0.83-4.51); Absolute Neutrophil Count 11.6 X10^3/uL (2.0-7.7); Basophil# 0.04 X10^3/uL; Basophil% 0.3 % (0-1); Eosinophils% 1.5 % (0-5); Hematocrit 29.9 % (37-47); Lymphocyte # 1.16 X10^3/ul (4.0); Lymphocyte % 8.4 % (19-41); Mean Corp Hgb Conc 26.8 g/gl (32-36); Mean Corpuscular Hgb 26.7 pg (27.0-32.0); Mean Corpuscular Volume 99.7 fL (81-99); Mean Platelet Vol. 10.1 fl (6.2-12.0); Monocyte# 0.62 X10^3/uL; Monocyte% 4.5 % (0-10); Neutrophil # 11.59 X10^3/uL (2.7-7.7); Neutrophil % 84.1 % (47-70); Platelet Count 604 K/mm3 (150-450); RBC Distribution Width CV 16.4 % (11.6-14.6); RBC Distribution Width SD 58.5 fl (35.1-43.9); White Blood Count 13.8 K/mm3 (4.4-11.0)
[2018-01-02 16:15] LABS: POSITIVE COUNT NO; POSITIVE DIFFERENTIAL NO; POSITIVE MORPHOLOGY NO
[2018-01-02 16:28] LABS: BUN 24 mg/dL (7-18); BUN/Creat Ratio 21.1 RATIO (10-20); Carbon Dioxide > 45.0 mmol/L (21.0-32.0); Chloride 87 mmol/L (98-107); Creatinine, Serum 1.14 mg/dL (0.55-1.02); EST Glomerular Filtration Rate 50 mL/min (>60); Est Glom Filt Rate - Afr Amer 61 mL/min (>60); Estimated Creatinine Clearance 38.53 ml/min; Glucose 254 mg/dL (74-106); Potassium 4.5 mmol/L (3.5-5.1); Sodium Level 140 mmol/L (136-145)
[2018-01-02 16:52] LABS: BNP,B-Type NATRIURETIC PEPTIDE 61.6 pg/mL (0-100)
[2018-01-02] MEDS: Furosemide 20 MG/2 ML VIAL IV (16:53)
--- NOTE | 2018-01-02 17:11 | PCM.HP.STD ---
Problem List (1) Chronic diastolic (congestive) heart failure Status: Chronic (2) Chronic hypoxemic respiratory failure Status: Chronic (3) Stage 3 severe COPD by GOLD classification Status: Chronic (4) Aortic stenosis Status: Chronic Comment: Moderate to severe with valve area 1.1 on cardiac catheterization in 2013 (5) Diabetes mellitus type II Status: Chronic (6) Pulmonary hypertension Status: Chronic Comment: With PA pressures 55 by cardiac catheterization (7) Hypertension Status: Chronic Qualifiers: (8) HLD (hyperlipidemia) Status: Chronic Qualifiers: (9) GI AVM (gastrointestinal arteriovenous vascular malformation) Status: Chronic History of Present Illness Date of Admission: 01/02/18 Chief Complaint: Shortness of breath. 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 Today, she came to Dr. Xavier's office for follow-up she was found to be in severe respiratory distress with minimal exertion and she was sent to ED for evaluation. Patient mentioned that her breathing has been progressively worsened over the last 10 days, she gets easily short of breath with minimal exertion, aggravated by even taking a shower or walking for few feet, associated with palpitation, weakness and dizziness and without aggravating or relieving factors. She denied cough or sputum production. She denies fever chills. She has history of aortic stenosis and she had 2D echocardiogram on May, that revealed moderately severe aortic stenosis. On June 11, 2017, she underwent cardiac catheterization in preparation for TAVR procedure and her aortic stenosis described as mild and decision was made to continue with medical treatment. She had a history of chronic hypoxic respiratory failure which is multifactorial secondary to COPD, chronic anemia and diastolic CHF as well as aortic stenosis and she has been on oxygen at home at 6 L. She has a history of type 2 diabetes mellitus and she has been on metformin, most recent hemoglobin A1c was 5.2 from August,. In the emergency department, she was afebrile, blood pressure stable, pulse ox was 96% on 6 L and she was slightly tachypneic. Her routine blood work was remarkable for mild leukocytosis, hemoglobin of 8 g/dL, serum bicarb is more than 45 which is chronic. Troponin was 0.07 which is indeterminate and her BNP was normal. Her EKG revealed normal sinus rhythm without bundle branch block, no acute ischemic changes. Chest x-ray revealed mild cardiomegaly, bilateral pulmonary vascular congestion which is chronic but may be little worse compared to previous chest x-ray. She is being admitted for acute on chronic hypoxic respiratory failure, acute on chronic anemia and probable acute on chronic diastolic CHF. Past Medical History Past Medical History (Chronic Problems): Chronic Problems (Last Updated 01/02/18 @ 17:11 by David Montana MD) Chronic diastolic (congestive) heart failure (Chronic) Cerebral infarction, unspecified (Chronic) Palpitations (Chronic) Anxiety (Chronic) Left atrial enlargement (Chronic) Hypersomnia (Chronic) Anemia (Chronic) Carotid artery stenosis (Chronic) Chronic hypoxemic respiratory failure (Chronic) Pulmonary fibrosis (Chronic) 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 3 severe COPD by GOLD classification (Chronic) Aortic stenosis (Chronic) Moderate to severe with valve area 1.1 on cardiac catheterization in 2013 Diabetes mellitus type II (Chronic) Pulmonary hypertension (Chronic) With PA pressures 55 by cardiac catheterization Hypertension (Chronic) HLD (hyperlipidemia) (Chronic) 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) Medical History: Medical History (Last Updated 01/02/18 @ 17:11 by David Montana MD) Palpitations (Chronic) R00.2 Left atrial enlargement (Chronic) I51.7 Hypersomnia (Chronic) G47.10 Anemia (Chronic) D64.9 Carotid artery stenosis (Chronic) I65.29 Chronic hypoxemic respiratory failure (Chronic) J96.11 Pulmonary fibrosis (Chronic) J84.10 Tobacco dependence in remission (Chronic) F17.201 Stage 3 severe COPD by GOLD classification (Chronic) J44.9 Aortic stenosis (Chronic) Moderate to severe with valve area 1.1 on cardiac catheterization in 2013 Diabetes mellitus type II (Chronic) Pulmonary hypertension (Chronic) With PA pressures 55 by cardiac catheterization Hypertension (Chronic) I10 HLD (hyperlipidemia) (Chronic) E78.5 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) Q27.33 History of hysterectomy Z90.710 Shortness of breath R06.02 CVA (cerebral vascular accident) (Resolved) I63.9 History of GI bleeding (Resolved) Status post EGD and colonoscopy by Dr. Blackmon in 2011, suspected AV malformations Acute on chronic anemia (Inactive) Allergies No Known Allergies Allergy (Verified 01/02/18 15:03) Home Medications: Ambulatory Orders Medication Instructions Recorded Metformin HCl [Glucophage] 1,000 mg PO BIDCM 01/15/14 Simvastatin [Zocor] 20 mg PO QHS 01/15/14 Escitalopram Oxalate [Lexapro] 10 mg PO DAILY 06/29/15 traZODone [Desyrel] 100 mg PO QHS PRN PRN 06/29/15 Budesonide/Formoterol Fumarate 2 puff IH BID 03/27/17 [Symbicort 160-4.5 Mcg Inhaler] Fluticasone 0.05% [Flonase Nasal 1 spray NASAL BID 04/24/17 Artemus] Acetaminophen [Tylenol Tablet] 650 mg PO Q6H PRN PRN tab 06/10/17 Ipratropium/Albuterol Sulfate 3 ml INHALATION Q4H.RT ampul.neb 06/10/17 [Duoneb] Furosemide [Lasix] 80 mg PO BID 09/02/17 ferrous sulfate 325 mg (65 mg 325 mg PO TID tab 09/09/17 iron) tablet metoprolol tartrate 50 mg tablet 50 mg PO BID #180 tab 11/12/17 Albuterol Sulfate [Ventolin Hfa] 1 - 2 puff INHALATION PRN PRN 01/02/18 Surgical History: Surgical History (Last Reviewed 01/02/18 @ 14:14 by Jaylin Bernabe) History of hernia repair Z98.890, Z87.19 Surgical History: herniorrhaphy, hysterectomy, - Psychiatric History: No pertinent psych hx MASTER CHEF History: No pertinent MASTER CHEF history Smoking Status: Former smoker Tobacco Use: Cigarettes Alcohol: None Drugs: None - *Family History Paternal Family History: Family History (Last Reviewed 05/02/17 @ 11:14 by Yakelin Berkowitz) Mother Heart disease Father CAD (coronary artery disease) Hypertension Brother Hypertension History Items: Heart Disease Maternal Family History: Family History (Last Reviewed 05/02/17 @ 11:14 by Yakelin Berkowitz) Mother Heart disease Father CAD (coronary artery disease) Hypertension Brother Hypertension History Items: Heart Disease Review of Systems Constitutional: Reports: Weakness, Fatigue. Denies: Anorexia, Chills, Fever Eyes: Denies: Blurred vision, Double vision, Drainage, Redness HEENT: Denies: Difficulty Hearing, Ear Pain, Eye Pain, Nasal bleeding, Sore Throat Cardiovascular: Reports: Edema, Light Headedness, Palpitations. Denies: Chest Pain, Chest Pressure, Heaviness, Syncope Respiratory: Reports: Shortness of breath upon exertion. Denies: Cough, Pleuritic Pain, Sputum production, Wheezing Gastrointestinal: Denies: Abdominal Pain, Constipation, Diarrhea, Nausea, Vomiting Genitourinary: Denies: Dysuria, Frequency, Hematuria Musculoskeletal: Denies: Arm Pain, Back Pain, Foot Pain Skin: Denies: Dryness, Rash Neurological: Denies: Balance problems, Change in Speech, Slurred speech, Confusion, Headaches, Incoordination, Numbness, Tingling Psychiatric: Denies: Anxiety, Depression Endocrine: Denies: Change in Body Habitus, Polydipsia VTE Information - Inpt Only VTE Present on Admission: No VTE Mechan Device Prophylaxis: SCD's VTE Pharm Prophylaxis ordered?: No - Physical Exam General: Alert, Oriented x3, Cooperative, - - Moderately short of breath. HEENT: Atraumatic, PERRLA, EOMI, Normocephalic Oral: Moist Mucosa, No Gingival or Mucosal Lesions/ Ulcerations Neck: Supple, No JVD, Negative Carotid Bruits, Trachea Midline, Thyroid Normal Size and Texture Lungs: No rhonchi, No wheeze, Diminished, Rales, Short of Breath, - - Markedly decreased breath sounds bilaterally, more at the bases with barely audible crackles. Cardiovascular: Regular rate, Regular Rhythm, Normal S1, Normal S2, PMI Normal, Murmur - Systolic murmur. Abdomen: Bowel Sounds Present, Soft, Non Tender, Non-Distended, No Hepato-splenomegaly, Obese Extremities: No clubbing, No cyanosis, Edema - + Edema. Skin: No rashes, No breakdown Lymphatic: No Cervical, Supraclavicular, or Inguinal Adenopathy Neurological: Cranial nerves II-XII grossly intact, Motor Exam 5/5 strength throughout Psych/Mental Status: Normal Affect, Appropriate, Alert and oriented to time, place, person, mood and affect Vital Signs Temp Pulse Resp BP Pulse Ox 98 F 90 20 H 122/89 H 96 01/02/18 15:00 01/02/18 17:01 01/02/18 17:01 01/02/18 17:01 01/02/18 17:01 Oxygen Flow Rate (L/min) 6 Oxygen Delivery Method Nasal Cannula Weight: 250 lb Body Mass Index (BMI) 44.2 Laboratory Tests Past 24 Hrs 01/02/18 01/02/18 01/02/18 15:40 15:40 15:40 WBC 13.8 H RBC 3.00 L Hgb 8.0 L Hct 29.9 L MCV 99.7 H MCH 26.7 L MCHC 26.8 L RDW 16.4 H RDW Differential 58.5 H Plt Count 604 H MPV 10.1 Immature Gran % (Auto) 1.200 H Neut % (Auto) 84.1 H Lymph % (Auto) 8.4 L [place] % (Auto) 4.5 Eos % (Auto) 1.5 Baso % (Auto) 0.3 Absolute Neuts (auto) 11.6 H Absolute Lymphs (auto) 1.16 Total Counted Not Reportable Sodium 140 Potassium 4.5 Chloride 87 L Carbon Dioxide > 45.0 H* Anion Gap TNP BUN 24 H Creatinine 1.14 H Estim Creat Clear Calc 38.53 Est GFR (MDRD) Af Amer 61 Est GFR (MDRD) Non-Af 50 L BUN/Creatinine Ratio 21.1 H Glucose 254 H Calcium 9.0 Troponin I 0.070 H B-Natriuretic Peptide 61.6 Blood Type Antibody Screen Crossmatch 01/02/18 16:40 WBC RBC Hgb Hct MCV MCH MCHC RDW RDW Differential Plt Count MPV Immature Gran % (Auto) Neut % (Auto) Lymph % (Auto) [place] % (Auto) Eos % (Auto) Baso % (Auto) Absolute Neuts (auto) Absolute Lymphs (auto) Total Counted Sodium Potassium Chloride Carbon Dioxide Anion Gap BUN Creatinine Estim Creat Clear Calc Est GFR (MDRD) Af Amer Est GFR (MDRD) Non-Af BUN/Creatinine Ratio Glucose Calcium Troponin I B-Natriuretic Peptide Blood Type Pending Antibody Screen Pending Crossmatch See Detail Clinical Impression(s) from Imaging Studies Chest X-Ray 01/02/18 15:13 IMPRESSION: Mild perihilar interstitial and vascular prominence in the lungs may be related to technique. Differential considerations include mild CHF, or mild pneumonitis. There is no focal infiltrate and no visible effusion. 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 #1 acute on chronic hypoxic respiratory failure: The patient remains on 6 L of oxygen in the ED which is her baseline at home her pulse ox dropped down significantly to around 90% just walking from the chair to the bed and she was very short of breath. It is probably multifactorial secondary to acute and chronic CHF as well as acute on chronic anemia. Her EKG revealed normal sinus rhythm with right bundle branch block, no acute ischemic changes. Chest x-ray reviewed, revealed chronic bilateral pulmonary vascular congestion, could be more worse than previous chest x-ray. Her BNP was not elevated. Plan: Admit to PCU, cardiac monitoring, serial cardiac enzymes, IV diuresis, bronchodilators, blood transfusion, repeat CBC and BMP tomorrow morning, PT OT evaluation and treatment. #2 probable acute on chronic diastolic CHF: This is based on symptoms of exertional shortness of breath with minimal activity, leg edema and weight gain as well as chest x-ray findings. Plan: Start IV Lasix for diuresis, fluid restriction to less than 1500 cc daily, input output chart, repeat BMP tomorrow morning. #3 acute on chronic anemia: Her baseline hemoglobin has been ranging from 7-10 g/dL. She has history of GI bleed secondary to AVMs. At this time, she denied any hematochezia or melena, no hematuria or hemoptysis, no hematemesis. Reportedly, once patient's hemoglobin came down less than 9 g/dL, respiratory status decline. Plan: Transfuse 1 unit of packed RBCs, repeat CBC tomorrow morning. #5 borderline elevated troponin: It is likely because of heart strain secondary to acute and chronic CHF. EKG without acute ischemic changes. Plan for cardiac monitoring, serial cardiac enzymes, repeat EKG tomorrow morning. #6 aortic stenosis: 2D echocardiogram on May, revealed moderately severe aortic stenosis. Later that month, she underwent cardiac catheterization for evaluation for aortic valve replacement or TAVR procedure and her aortic stenosis described as mild based on right heart catheterization and decision was made to continue medical treatment. #7 severe COPD: We will start DuoNeb every 4 hours, albuterol as needed, incentive spirometer, chest physical therapy. #8 hypertension: Blood pressure stable, continue metoprolol and IV Lasix. #9 type 2 diabetes mellitus: ADA diet, Accu-Cheks, insulin sliding scale, hold metformin. #10 DVT prophylaxis: SCDs. No chemical prophylaxis because of history of GI bleed secondary to AVMs. Other chronic medical problems: #1 hyperlipidemia. #2 pulmonary hypertension. #3 carotid artery stenosis. This note was generated with [employer] dictation software. It may contain incorrect words, spelling, and punctuation that were not noted in checking the note before signing. Code Visit Inpatient E&M: 30035 Init Hosp L3
--- NOTE | 2018-01-02 17:22 | HP.PCM_ITS ---
Problem List (1) Chronic diastolic (congestive) heart failure Status: Chronic (2) Chronic hypoxemic respiratory failure Status: Chronic (3) Stage 3 severe COPD by GOLD classification Status: Chronic (4) Aortic stenosis Status: Chronic Comment: Moderate to severe with valve area 1.1 on cardiac catheterization in 2013 (5) Diabetes mellitus type II Status: Chronic (6) Pulmonary hypertension Status: Chronic Comment: With PA pressures 55 by cardiac catheterization (7) Hypertension Status: Chronic Qualifiers: (8) HLD (hyperlipidemia) Status: Chronic Qualifiers: (9) GI AVM (gastrointestinal arteriovenous vascular malformation) Status: Chronic History of Present Illness Date of Admission: 01/02/18 Chief Complaint: Shortness of breath. 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 Today, she came to Dr. Xavier's office for follow-up she was found to be in severe respiratory distress with minimal exertion and she was sent to ED for evaluation. Patient mentioned that her breathing has been progressively worsened over the last 10 days, she gets easily short of breath with minimal exertion, aggravated by even taking a shower or walking for few feet, associated with palpitation, weakness and dizziness and without aggravating or relieving factors. She denied cough or sputum production. She denies fever chills. She has history of aortic stenosis and she had 2D echocardiogram on May, that revealed moderately severe aortic stenosis. On June 11, 2017, she underwent cardiac catheterization in preparation for TAVR procedure and her aortic stenosis described as mild and decision was made to continue with medical treatment. She had a history of chronic hypoxic respiratory failure which is multifactorial secondary to COPD, chronic anemia and diastolic CHF as well as aortic stenosis and she has been on oxygen at home at 6 L. She has a history of type 2 diabetes mellitus and she has been on metformin, most recent hemoglobin A1c was 5.2 from August,. In the emergency department, she was afebrile, blood pressure stable, pulse ox was 96% on 6 L and she was slightly tachypneic. Her routine blood work was remarkable for mild leukocytosis, hemoglobin of 8 g/dL, serum bicarb is more than 45 which is chronic. Troponin was 0.07 which is indeterminate and her BNP was normal. Her EKG revealed normal sinus rhythm without bundle branch block, no acute ischemic changes. Chest x-ray revealed mild cardiomegaly, bilateral pulmonary vascular congestion which is chronic but may be little worse compared to previous chest x-ray. She is being admitted for acute on chronic hypoxic respiratory failure, acute on chronic anemia and probable acute on chronic d iastolic CHF. Past Medical History Past Medical History (Chronic Problems): Chronic Problems (Last Updated 01/02/18 @ 17:11 by David Montana MD) Chronic diastolic (congestive) heart failure (Chronic) Cerebral infarction, unspecified (Chronic) Palpitations (Chronic) Anxiety (Chronic) Left atrial enlargement (Chronic) Hypersomnia (Chronic) Anemia (Chronic) Carotid artery stenosis (Chronic) Chronic hypoxemic respiratory failure (Chronic) Pulmonary fibrosis (Chronic) 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 3 severe COPD by GOLD classification (Chronic) Aortic stenosis (Chronic) Moderate to severe with valve area 1.1 on cardiac catheterization in 2013 Diabetes mellitus type II (Chronic) Pulmonary hypertension (Chronic) With PA pressures 55 by cardiac catheterization Hypertension (Chronic) HLD (hyperlipidemia) (Chronic) 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) Medical History: Medical History (Last Updated 01/02/18 @ 17:11 by David Montana MD) Palpitations (Chronic) R00.2 Left atrial enlargement (Chronic) I51.7 Hypersomnia (Chronic) G47.10 Anemia (Chronic) D64.9 Carotid artery stenosis (Chronic) I65.29 Chronic hypoxemic respiratory failure (Chronic) J96.11 Pulmonary fibrosis (Chronic) J84.10 Tobacco dependence in remission (Chronic) F17.201 Stage 3 severe COPD by GOLD classification (Chronic) J44.9 Aortic stenosis (Chronic) Moderate to severe with valve area 1.1 on cardiac catheterization in 2013 Diabetes mellitus type II (Chronic) Pulmonary hypertension (Chronic) With PA pressures 55 by cardiac catheterization Hypertension (Chronic) I10 HLD (hyperlipidemia) (Chronic) E78.5 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) Q27.33 History of hysterectomy Z90.710 Shortness of breath R06.02 CVA (cerebral vascular accident) (Resolved) I63.9 History of GI bleeding (Resolved) Status post EGD and colonoscopy by Dr. Blackmon in 2011, suspected AV malformations Acute on chronic anemia (Inactive) Allergies No Known Allergies Allergy (Verified 01/02/18 15:03) Home Medications: Ambulatory Orders Medication Instructions Recorded Metformin HCl [Glucophage] 1,000 mg PO BIDCM 01/15/14 Simvastatin [Zocor] 20 mg PO QHS 01/15/14 Escitalopram Oxalate [Lexapro] 10 mg PO DAILY 06/29/15 traZODone [Desyrel] 100 mg PO QHS PRN PRN 06/29/15 Budesonide/Formoterol Fumarate 2 puff IH BID 03/27/17 [Symbicort 160-4.5 Mcg Inhaler] Fluticasone 0.05% [Flonase Nasal 1 spray NASAL BID 04/24/17 Rembert] Acetaminophen [Tylenol Tablet] 650 mg PO Q6H PRN PRN tab 06/10/17 Ipratropium/Albuterol Sulfate 3 ml INHALATION Q4H.RT ampul.neb 06/10/17 [Duoneb] Furosemide [Lasix] 80 mg PO BID 09/02/17 ferrous sulfate 325 mg (65 mg 325 mg PO TID tab 09/09/17 iron) tablet metoprolol tartrate 50 mg tablet 50 mg PO BID #180 tab 11/12/17 Albuterol Sulfate [Ventolin Hfa] 1 - 2 puff INHALATION PRN PRN 01/02/18 Surgical History: Surgical History (Last Reviewed 01/02/18 @ 14:14 by Jaylin Bernabe) History of hernia repair Z98.890, Z87.19 Surgical History: herniorrhaphy, hysterectomy, - Psychiatric History: No pertinent psych hx MOLDER HAND History: No pertinent MOLDER HAND history Smoking Status: Former smoker Tobacco Use: Cigarettes Alcohol: None Drugs: None - *Family History Paternal Family History: Family History (Last Reviewed 05/02/17 @ 11:14 by Yakelin Berkowitz) Mother Heart disease Father CAD (coronary artery disease) Hypertension Brother Hypertension History Items: Heart Disease Maternal Family History: Family History (Last Reviewed 05/02/17 @ 11:14 by Yakelin Berkowitz) Mother Heart disease Father CAD (coronary artery disease) Hypertension Brother Hypertension History Items: Heart Disease Review of Systems Constitutional: Reports: Weakness, Fatigue. Denies: Anorexia, Chills, Fever Eyes: Denies: Blurred vision, Double vision, Drainage, Redness HEENT: Denies: Difficulty Hearing, Ear Pain, Eye Pain, Nasal bleeding, Sore Throat Cardiovascular: Reports: Edema, Light Headedness, Palpitations. Denies: Chest Pain, Chest Pressure, Heaviness, Syncope Respiratory: Reports: Shortness of breath upon exertion. Denies: Cough, Pleuritic Pain, Sputum production, Wheezing Gastrointestinal: Denies: Abdominal Pain, Constipation, Diarrhea, Nausea, Vomiting Genitourinary: Denies: Dysuria, Frequency, Hematuria Musculoskeletal: Denies: Arm Pain, Back Pain, Foot Pain Skin: Denies: Dryness, Rash Neurological: Denies: Balance problems, Change in Speech, Slurred speech, Confusion, Headaches, Incoordination, Numbness, Tingling Psychiatric: Denies: Anxiety, Depression Endocrine: Denies: Change in Body Habitus, Polydipsia VTE Information - Inpt Only VTE Present on Admission: No VTE Mechan Device Prophylaxis: SCD's VTE Pharm Prophylaxis ordered?: No - Physical Exam General: Alert, Oriented x3, Cooperative, - - Moderately short of breath. HEENT: Atraumatic, PERRLA, EOMI, Normocephalic Oral: Moist Mucosa, No Gingival or Mucosal Lesions/ Ulcerations Neck: Supple, No JVD, Negative Carotid Bruits, Trachea Midline, Thyroid Normal Size and Texture Lungs: No rhonchi, No wheeze, Diminished, Rales, Short of Breath, - - Markedly decreased breath sounds bilaterally, more at the bases with barely audible crackles. Cardiovascular: Regular rate, Regular Rhythm, Normal S1, Normal S2, PMI Normal, Murmur - Systolic murmur. Abdomen: Bowel Sounds Present, Soft, Non Tender, Non-Distended, No Hepato- splenomegaly, Obese Extremities: No clubbing, No cyanosis, Edema - + Edema. Skin: No rashes, No breakdown Lymphatic: No Cervical, Supraclavicular, or Inguinal Adenopathy Neurological: Cranial nerves II-XII grossly intact, Motor Exam 5/5 strength throughout Psych/Mental Status: Normal Affect, Appropriate, Alert and oriented to time, place, person, mood and affect Vital Signs Temp Pulse Resp BP Pulse Ox 98 F 90 20 H 122/89 H 96 01/02/18 15:00 01/02/18 17:01 01/02/18 17:01 01/02/18 17:01 01/02/18 17:01 Oxygen Flow Rate (L/min) 6 Oxygen Delivery Method Nasal Cannula Weight: 250 lb Body Mass Index (BMI) 44.2 Laboratory Tests Past 24 Hrs 01/02/18 01/02/18 01/02/18 15:40 15:40 15:40 WBC 13.8 H RBC 3.00 L Hgb 8.0 L Hct 29.9 L MCV 99.7 H MCH 26.7 L MCHC 26.8 L RDW 16.4 H RDW Differential 58.5 H Plt Count 604 H MPV 10.1 Immature Gran % (Auto) 1.200 H Neut % (Auto) 84.1 H Lymph % (Auto) 8.4 L Divide % (Auto) 4.5 Eos % (Auto) 1.5 Baso % (Auto) 0.3 Absolute Neuts (auto) 11.6 H Absolute Lymphs (auto) 1.16 Total Counted Not Reportable Sodium 140 Potassium 4.5 Chloride 87 L Carbon Dioxide > 45.0 H* Anion Gap TNP BUN 24 H Creatinine 1.14 H Estim Creat Clear Calc 38.53 Est GFR (MDRD) Af Amer 61 Est GFR (MDRD) Non-Af 50 L BUN/Creatinine Ratio 21.1 H Glucose 254 H Calcium 9.0 Troponin I 0.070 H B-Natriuretic Peptide 61.6 Blood Type Antibody Screen Crossmatch 01/02/18 16:40 WBC RBC Hgb Hct MCV MCH MCHC RDW RDW Differential Plt Count MPV Immature Gran % (Auto) Neut % (Auto) Lymph % (Auto) Divide % (Auto) Eos % (Auto) Baso % (Auto) Absolute Neuts (auto) Absolute Lymphs (auto) Total Counted Sodium Potassium Chloride Carbon Dioxide Anion Gap BUN Creatinine Estim Creat Clear Calc Est GFR (MDRD) Af Amer Est GFR (MDRD) Non-Af BUN/Creatinine Ratio Glucose Calcium Troponin I B-Natriuretic Peptide Blood Type Pending Antibody Screen Pending Crossmatch See Detail Clinical Impression(s) from Imaging Studies Chest X-Ray 01/02/18 15:13 IMPRESSION: Mild perihilar interstitial and vascular prominence in the lungs may be related to technique. Differential considerations include mild CHF, or mild pneumonitis. There is no focal infiltrate and no visible effusion. 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 #1 acute on chronic hypoxic respiratory failure: The patient remains on 6 L of oxygen in the ED which is her baseline at home her pulse ox dropped down significantly to around 90% just walking from the chair to the bed and she was very short of breath. It is probably multifactorial secondary to acute and chronic CHF as well as acute on chronic anemia. Her EKG revealed normal sinus rhythm with right bundle branch block, no acute ischemic changes. Chest x-ray reviewed, revealed chronic bilateral pulmonary vascular congestion, could be more worse than previous chest x-ray. Her BNP was not elevated. Plan: Admit to PCU, cardiac monitoring, serial cardiac enzymes, IV diuresis, bronchodilators, blood transfusion, repeat CBC and BMP tomorrow morning, PT OT evaluation and treatment. #2 probable acute on chronic diastolic CHF: This is based on symptoms of exertional shortness of breath with minimal activity, leg edema and weight gain as well as chest x-ray findings. Plan: Start IV Lasix for diuresis, fluid restriction to less than 1500 cc daily, input output chart, repeat BMP tomorrow morning. #3 acute on chronic anemia: Her baseline hemoglobin has been ranging from 7-10 g/dL. She has history of GI bleed secondary to AVMs. At this time, she denied any hematochezia or melena, no hematuria or hemoptysis, no hematemesis. Reportedly, once patient's hemoglobin came down less than 9 g/dL, respiratory status decline. Plan: Transfuse 1 unit of packed RBCs, repeat CBC tomorrow morning. #5 borderline elevated troponin: It is likely because of heart strain secondary to acute and chronic CHF. EKG without acute ischemic changes. Plan for cardiac monitoring, serial cardiac enzymes, repeat EKG tomorrow morning. #6 aortic stenosis: 2D echocardiogram on May, revealed moderately severe aortic stenosis. Later that month, she underwent cardiac catheterization for evaluation for aortic valve replacement or TAVR procedure and her aortic stenosis described as mild based on right heart catheterization and decision was made to continue medical treatment. #7 severe COPD: We will start DuoNeb every 4 hours, albuterol as needed, incentive spirometer, chest physical therapy. #8 hypertension: Blood pressure stable, continue metoprolol and IV Lasix. #9 type 2 diabetes mellitus: ADA diet, Accu-Cheks, insulin sliding scale, hold metformin. #10 DVT prophylaxis: SCDs. No chemical prophylaxis because of history of GI bleed secondary to AVMs. Other chronic medical problems: #1 hyperlipidemia. #2 pulmonary hypertension. #3 carotid artery stenosis. This note was generated with [employer] dictation software. It may contain incorrect words, spelling, and punctuation that were not noted in checking the note before signing. Code Visit Inpatient E&M: 81251 Init Hosp L3
[2018-01-02 18:16] LABS: Bedside Glucose 171 mg/dL (70-110)
[2018-01-02] MEDS: Atorvastatin Calcium 10 MG Tablet PO (21:09)
[2018-01-02] MEDS: Metoprolol Tartrate 50 MG Tablet PO (21:09)
[2018-01-02] MEDS: Furosemide 100 MG/10 ML Vial 60 MG IV (21:09)
[2018-01-02] MEDS: Fluticasone 0.05% 1 SPRAY NASAL.SRY NASAL (21:15)
[2018-01-02] MEDS: 0.9% NaCl Peripheral Flush Adult/Peds IV (21:16)
[2018-01-02] MEDS: Insulin Lispro 100 UNIT/ML INSULN.PEN SQ (21:16)
[2018-01-02 21:35] LABS: Bedside Glucose 184 mg/dL (70-110)
[2018-01-03] VITALS (22 sets, daily range): BP systolic 89–116; BP diastolic 40–56; PULSE 72–95; RESP 16–28; TEMP 36.6–37.4; O2SAT 94–100
[2018-01-03 05:42] LABS: Absolute Lymphocyte Count 0.87 X10^3/ul (0.83-4.51); Absolute Neutrophil Count 7.5 X10^3/uL (2.0-7.7); Basophil# 0.04 X10^3/uL; Basophil% 0.4 % (0-1); Eosinophil# 0.22 X10^3/uL; Eosinophils% 2.3 % (0-5); Hematocrit 27.1 % (37-47); Lymphocyte # 0.87 X10^3/ul (4.0); Lymphocyte % 9.1 % (19-41); Mean Corp Hgb Conc 25.8 g/gl (32-36); Mean Corpuscular Hgb 26.3 pg (27.0-32.0); Mean Corpuscular Volume 101.9 fL (81-99); Mean Platelet Vol. 9.4 fl (6.2-12.0); Monocyte# 0.84 X10^3/uL; Monocyte% 8.7 % (0-10); Neutrophil # 7.53 X10^3/uL (2.7-7.7); Neutrophil % 78.4 % (47-70); Platelet Count 494 K/mm3 (150-450); RBC Distribution Width CV 15.8 % (11.6-14.6); Red Blood Count 2.66 M/mm3 (4.2-5.4); White Blood Count 9.6 K/mm3 (4.4-11.0)
[2018-01-03 05:45] LABS: POSITIVE COUNT NO; POSITIVE DIFFERENTIAL NO; POSITIVE MORPHOLOGY NO
--- NOTE | 2018-01-03 05:55 | EKG12_ITS ---
Test Reason : AM EKG Blood Pressure : / mmHG Vent. Rate : 075 BPM Atrial Rate : 075 BPM P-R Int : 138 ms QRS Dur : 142 ms QT Int : 448 ms P-R-T Axes : 068 070 027 degrees QTc Int : 500 ms Normal sinus rhythm Right bundle branch block Abnormal ECG Confirmed by HARMAN GAMBOA, DEVIN ([id number]), deputy editor in chief [employer] ([id number] on 01/08/2018 2:17:31 PM Referred By: MOISE Confirmed By:DEVIN HAMMER MD
[2018-01-03 06:21] LABS: BUN 28 mg/dL (7-18); BUN/Creat Ratio 28.7 RATIO (10-20); Calcium,Total 8.8 mg/dL (8.5-10.1); Carbon Dioxide > 45.0 mmol/L (21.0-32.0); Chloride 87 mmol/L (98-107); Creatinine, Serum 0.97 mg/dL (0.55-1.02); EST Glomerular Filtration Rate 60 mL/min (>60); Est Glom Filt Rate - Afr Amer 73 mL/min (>60); Estimated Creatinine Clearance 45.28 ml/min; Glucose 168 mg/dL (74-106); Potassium 4.5 mmol/L (3.5-5.1); Sodium Level 140 mmol/L (136-145)
[2018-01-03] MEDS: Furosemide 100 MG/10 ML Vial 60 MG IV ×3 (06:37→21:34)
[2018-01-03] MEDS: 0.9% NaCl Peripheral Flush Adult/Peds IV ×6 (06:37→21:35)
[2018-01-03 06:50] LABS: Bedside Glucose 170 mg/dL (70-110)
[2018-01-03] MEDS: Ipratropium/Albuterol Sulfate 3 ML AMPUL.NEB INHALATION ×3 (06:59→18:27)
[2018-01-03] MEDS: Insulin Lispro 100 UNIT/ML INSULN.PEN SQ ×4 (09:32→21:34)
[2018-01-03] MEDS: Metoprolol Tartrate 50 MG Tablet PO ×2 (09:32→21:35)
[2018-01-03] MEDS: Ferrous Sulfate 325 MG Tablet PO ×3 (09:32→17:15)
[2018-01-03] MEDS: Glucerna Shake 120 ML LIQUID 60 ML PO (09:33)
[2018-01-03] MEDS: Escitalopram Oxalate 10 MG Tablet PO (09:33)
[2018-01-03] MEDS: Fluticasone 0.05% 1 SPRAY NASAL.SRY NASAL ×2 (09:35→21:33)
--- NOTE | 2018-01-03 10:57 | CASEMGMT ---
YASMINE ARREAGA assessment: Face to Face with patient for initial transition planning/care coordination assessment. YASMINE ARREAGA introduced self and role at [facility], pt voices understanding and consents to assessment at this time. Pt is sitting up in chair with some conversational dyspnea at this time. Pt is A/O x4 at this time and answers all questions appropriately at this time. Care providers, pharmacy, and demographics verified at this time. PCP: Gustavo Specialists: Zack-pulm; [facility] Preferred Pharmacy: [facility] Insurance: MCR A/B, [employer] Prescription Benefit: [employer] Living Will/HPOA: Pt states has LW/HPOA and that her , Gamaliel Cyr, is HPOA. AD are not currently on file at this time. LNOK: Gamaliel Cyr, Living Arrangements: Pt states lives with in 1 story home and states no steps at this time. Pt states no concerns at home at this time. Transportation: Pt states drives and states no transportation concerns at this time. DME/HHC: Pt states hx of [facility] HHC in the past but not currently. Pt also states has been to [facility] earlier this year and pt is interested in going back at this time. Referral to Nikhil ALVAREZ at this time, voices understanding. Pt states has the following DME at home: grab bars, walk-in shower, rollater, scooter, and home oxygen at [address] [place] [address] 08/10 thru [facility] but she states that she is planning on switching this over to [employer]. Pt states that she is also current with palliative care. Pt states that she gets discouraged at times but is going to call someone a palliative care that she was told could help her with that. Pt states does not smoke and drinks very seldom. Pt states that she and her are retired and that he helps care for her at home. Pt states she would like referral sent to [facility] at this time. Pt voices no further concerns/needs at this time. Plan: [facility], pending acceptance SStnaeem UNDERWOOD CM
[2018-01-03 11:41] LABS: Bedside Glucose 213 mg/dL (70-110)
--- NOTE | 2018-01-03 12:09 | CHAPLAIN ---
Type of Pastoral Visit _x__ Initial Visit ___ Follow-up Visit ___ On-call Visit ___ General Patient Visit ___ Spiritual Assessment ___ Family Conference ___ Bereavement ___ Rapid Response ___ Code Blue ___ Other (describe below) Pastoral Care Referral From _x__ Patient ___ Family ___ Nurse ___ Physician ___ [employer] Manager ___ Program Review Director ___ Other (describe below) Sacrament/Intervention _x__ Active listening ___ Anointing ___ Yarsani ___ Bereavement ___ Communion ___ Sandra exploration ___ _x__ Life review _x__ Prayer ___ Reconciliation ___ Sacrament of Sick _x__ Supportive presence ___ Wedding ___ Other (describe below) Pastoral Comments 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
[2018-01-03] MEDS: Ondansetron 4 MG/2 ML Vial IV (12:51)
--- NOTE | 2018-01-03 15:39 | CASEMGMT ---
Social Work Received referral from Ximena Wilkins RN CM. Pt requesting to go to [place] upon d/c. SW reviewed therapy notes and pt does not require OT services and pt did well with PT. SW met with pt in room to discuss d/c plan. Explained that pt will likely not qualify for SNF under medicare benefits. Pt states she feels she does better in a facility and would get along better with her if she were in a facility permanently. SW spoke with pt about assisted living and correction care and provided cost of both. Pt states she cannot afford either of these options. SW inquired about possibility of Medicaid and pt states she and spouse have too much money to qualify for Medicaid. SW inquired with pt if she feels safe in her home. Pt affirmed that she and spouse argue but she has never felt unsafe around him. Pt believes arguing stems from pt compromised health status and need for spouse to assist pt. List of area assisted livings provided to pt to review. Pt states she will return home with spouse at time of d/c. SW offered emotional support and will remain available should further needs arise. Plan: home with spouse MICHAEL Solo
[2018-01-03] MEDS: Furosemide 40 MG/4 ML Vial IV (16:42)
[2018-01-03 16:56] LABS: Iron 25 ug/dL (50-170); Iron Binding Capacity,Total 316 ug/dL (250-450); PERCENT IRON SATURATION 7.9 % (15.0-55.0)
[2018-01-03 17:26] LABS: Bedside Glucose 190 mg/dL (70-110)
--- NOTE | 2018-01-03 17:44 | PCM.PN.HOSP ---
Subjective: Patient was seen and examined. Complains of shortness of breath worse with exertion. Currently on her home 6 L of oxygen. Denies chest pain or dizziness. Bilateral leg edema persist. Objective: Physical Exam General: Alert, Oriented x3, Cooperative, remains on 6 L of oxygen, mildly short of breath HEENT: Atraumatic, PERRLA, EOMI, Normocephalic Oral: Moist Mucosa, No Gingival or Mucosal Lesions/ Ulcerations Neck: Supple, No JVD, Negative Carotid Bruits, Trachea Midline, Thyroid Normal Size and Texture Lungs: No rhonchi, No wheeze, Diminished, Rales, Short of Breath, - - Markedly decreased breath sounds bilaterally, more at the bases with barely audible crackles. Cardiovascular: Regular rate, Regular Rhythm, Normal S1, Normal S2, PMI Normal, Murmur - Systolic murmur. Abdomen: Bowel Sounds Present, Soft, Non Tender, Non-Distended, No Hepato-splenomegaly, Obese Extremities: Bilateral leg edema +2 Skin: No rashes, No breakdown Lymphatic: No Cervical, Supraclavicular, or Inguinal Adenopathy Neurological: Cranial nerves II-XII grossly intact, Motor Exam 5/5 strength throughout Psych/Mental Status: Normal Affect, Appropriate, Alert and oriented to time, place, person, mood and affect Vitals/I&O's: Vital Signs Temp Pulse Resp BP Pulse Ox 98.8 F 80 18 97/50 L 100 01/03/18 17:06 01/03/18 17:06 01/03/18 17:06 01/03/18 17:06 01/03/18 17:06 Oxygen Flow Rate (L/min) 6 Oxygen Delivery Method Nasal Cannula Weight: 117.9 kg Body Mass Index (BMI) 45.4 Intake and Output for Last 24 Hours 01/01/18 01/02/18 01/03/18 23:59 23:59 23:59 Intake Total 1160 / 1160 Output Total 1100 / 1100 Balance 60 / 60 Laboratory Results 01/02/18 16:40: Blood Type AB POSITIVE, Antibody Screen NEGATIVE, Crossmatch See Detail 01/02/18 17:59: POC Glucose 171 H 01/02/18 19:06: Troponin I 0.068 H 01/02/18 21:07: POC Glucose 184 H 01/02/18 21:42: Troponin I 0.074 H 01/03/18 05:20: WBC 9.6, RBC 2.66 L, Hgb 7.0 L, Hct 27.1 L, MCV 101.9 H, MCH 26.3 L, MCHC 25.8 L, RDW 15.8 H, RDW Differential 56.0 H, Plt Count 494 H, MPV 9.4, Immature Gran % (Auto) 1.100 H, Neut % (Auto) 78.4 H, Lymph % (Auto) 9.1 L, [place] % (Auto) 8.7, Eos % (Auto) 2.3, Baso % (Auto) 0.4, Absolute Neuts (auto) 7.5, Absolute Lymphs (auto) 0.87, Total Counted Not Reportable 01/03/18 05:20: Sodium 140, Potassium 4.5, Chloride 87 L, Carbon Dioxide > 45.0 H*, Anion Gap TNP, BUN 28 H, Creatinine 0.97, Estim Creat Clear Calc 45.28, Est GFR (MDRD) Af Amer 73, Est GFR (MDRD) Non-Af 60, BUN/Creatinine Ratio 28.7 H, Glucose 168 H, Calcium 8.8 01/03/18 05:20: Iron 25 L, TIBC 316, Iron Saturation 7.9 L 01/03/18 06:47: POC Glucose 170 H 01/03/18 11:33: POC Glucose 213 H 01/03/18 17:13: POC Glucose 190 H Current Medications Acetaminophen (Tylenol) 650 mg PO Q6H PRN PRN PRN Reason: Mild Pain (scale 0-3)/T>100.7 Albuterol Sulfate (Ventolin Aerosols) 2.5 mg INHALATION Q2H PRN PRN PRN Reason: Shortness of breath, wheezing Albuterol/Ipratropium (Duoneb) 3 ml INHALATION Q4H.RT [facility] Last Admin: 01/03/18 14:10 Dose: Not Given Atorvastatin Calcium (Lipitor) 10 mg PO QHS [facility] Last Admin: 01/02/18 21:09 Dose: 10 mg Escitalopram Oxalate (Lexapro) 10 mg PO DAILY [facility] Last Admin: 01/03/18 09:33 Dose: 10 mg Ferrous Sulfate (Ferrous Sulfate) 325 mg PO TIDCM [facility] Last Admin: 01/03/18 17:15 Dose: 325 mg Fluticasone Propionate (Flonase Nasal [place]) 1 spray NASAL BID [facility] Last Admin: 01/03/18 09:35 Dose: 1 spray Furosemide (Lasix) 60 mg IV Q8 [facility] Last Admin: 01/03/18 14:44 Dose: 60 mg Furosemide (Lasix) 40 mg IV .BEFORE BLOOD [facility]INER Stop: 01/03/18 22:00 Last Admin: 01/03/18 16:42 Dose: 40 mg Pantoprazole Sodium 40 mg/ (Sodium Chloride) 110 mls @ 330 mls/hr IV Q12 [facility] Insulin Human Lispro (Humalog Kwikpen (Bkc)) 0 unit SQ ACHS [facility]; Protocol Last Admin: 01/03/18 17:15 Dose: 2 u Magnesium Hydroxide (Milk Of Magnesia) 30 ml PO DAILY PRN PRN Reason: Constipation Metoprolol Tartrate (Lopressor (Beta Jeffery)) 50 mg PO BID [facility] Last Admin: 01/03/18 09:32 Dose: 50 mg Nutritional Formula (Lactose Free) (Glucerna Shake) 60 ml PO 4X/DAY [facility] Last Admin: 01/03/18 17:17 Dose: Not Given Ondansetron HCl (Zofran) 4 mg IV Q8H PRN PRN PRN Reason: Nausea Last Admin: 01/03/18 12:51 Dose: 4 mg Sodium Chloride () 5 - 30 ml IV UD PRN PRN Reason: SALINE FLUSH Last Admin: 01/03/18 16:42 Dose: 10 ml Trazodone HCl (Desyrel) 100 mg PO QHS PRN PRN PRN Reason: SLEEP Medical Necessity - Tobacco Use Smoking Status: Former smoker Tobacco Use: Cigarettes Assessment/Plan All Active Problems (Last Updated 01/02/18 @ 17:11 by David oMntana MD) CVA (cerebral vascular accident) (Resolved) CVA (cerebral vascular accident) (Resolved) History of GI bleeding (Resolved) 67 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 1. Acute on chronic hypoxic respiratory failure, improved, currently on her home 6 L of oxygen, secondary to acute on chronic diastolic CHF, acute on chronic anemia, continue treatment, wean off oxygen, encourage incentive spirometer 2. Acute on chronic diastolic CHF, on IV Lasix 60 mg every 8, continue with strict I's and O's, if patient does not diurese enough, will consider start of Lasix drip 3. Acute on chronic anemia, history of AVMs, chronic anemia, iron deficient, will transfuse 1 unit packed RBCs, follow H&H, Lasix in between transfusion. 4. Indeterminate troponin second to demand ischemia, will continue to monitor 5. Aortic stenosis, mild-moderate, will continue to monitor. 6. Severe COPD, with chronic respiratory failure, will continue on breathing treatment, aggressive pulmonary toileting. 7. Hypertension, stable, on metoprolol, continue to monitor vitals. 8. Type 2 diabetes mellitus, sugars are fairly uncontrolled, metformin withheld, will continue on ADA diet, Accu-Cheks, increase insulin sliding scale to high-dose 9. morbid obesity, BMI 46, diet and exercise is recommended 10. DVT prophylaxis -SCDs. Code Visit Inpatient E&M: 90440 Subs Hosp L2
--- NOTE | 2018-01-03 17:55 | PN_ITS ---
Subjective: Patient was seen and examined. Complains of shortness of breath worse with exertion. Currently on her home 6 L of oxygen. Denies chest pain or dizziness. Bilateral leg edema persist. Objective: Physical Exam General: Alert, Oriented x3, Cooperative, remains on 6 L of oxygen, mildly short of breath HEENT: Atraumatic, PERRLA, EOMI, Normocephalic Oral: Moist Mucosa, No Gingival or Mucosal Lesions/ Ulcerations Neck: Supple, No JVD, Negative Carotid Bruits, Trachea Midline, Thyroid Normal Size and Texture Lungs: No rhonchi, No wheeze, Diminished, Rales, Short of Breath, - - Markedly decreased breath sounds bilaterally, more at the bases with barely audible crackles. Cardiovascular: Regular rate, Regular Rhythm, Normal S1, Normal S2, PMI Normal, Murmur - Systolic murmur. Abdomen: Bowel Sounds Present, Soft, Non Tender, Non-Distended, No Hepato- splenomegaly, Obese Extremities: Bilateral leg edema +2 Skin: No rashes, No breakdown Lymphatic: No Cervical, Supraclavicular, or Inguinal Adenopathy Neurological: Cranial nerves II-XII grossly intact, Motor Exam 5/5 strength throughout Psych/Mental Status: Normal Affect, Appropriate, Alert and oriented to time, place, person, mood and affect Vitals/I&O's: Vital Signs Temp Pulse Resp BP Pulse Ox 98.8 F 80 18 97/50 L 100 01/03/18 17:06 01/03/18 17:06 01/03/18 17:06 01/03/18 17:06 01/03/18 17:06 Oxygen Flow Rate (L/min) 6 Oxygen Delivery Method Nasal Cannula Weight: 117.9 kg Body Mass Index (BMI) 45.4 Intake and Output for Last 24 Hours 01/01/18 01/02/18 01/03/18 23:59 23:59 23:59 Intake Total 1160 / 1160 Output Total 1100 / 1100 Balance 60 / 60 Laboratory Results 01/02/18 16:40: Blood Type AB POSITIVE, Antibody Screen NEGATIVE, Crossmatch See Detail 01/02/18 17:59: POC Glucose 171 H 01/02/18 19:06: Troponin I 0.068 H 01/02/18 21:07: POC Glucose 184 H 01/02/18 21:42: Troponin I 0.074 H 01/03/18 05:20: WBC 9.6, RBC 2.66 L, Hgb 7.0 L, Hct 27.1 L, MCV 101.9 H, MCH 26.3 L, MCHC 25.8 L, RDW 15.8 H, RDW Differential 56.0 H, Plt Count 494 H, MPV 9.4, Immature Gran % (Auto) 1.100 H, Neut % (Auto) 78.4 H, Lymph % (Auto) 9.1 L, [place] % (Auto) 8.7, Eos % (Auto) 2.3, Baso % (Auto) 0.4, Absolute Neuts (auto) 7.5, Absolute Lymphs (auto) 0.87, Total Counted Not Reportable 01/03/18 05:20: Sodium 140, Potassium 4.5, Chloride 87 L, Carbon Dioxide > 45.0 H*, Anion Gap TNP, BUN 28 H, Creatinine 0.97, Estim Creat Clear Calc 45.28, Est GFR (MDRD) Af Amer 73, Est GFR (MDRD) Non-Af 60, BUN/Creatinine Ratio 28.7 H, Glucose 168 H, Calcium 8.8 01/03/18 05:20: Iron 25 L, TIBC 316, Iron Saturation 7.9 L 01/03/18 06:47: POC Glucose 170 H 01/03/18 11:33: POC Glucose 213 H 01/03/18 17:13: POC Glucose 190 H Current Medications Acetaminophen (Tylenol) 650 mg PO Q6H PRN PRN PRN Reason: Mild Pain (scale 0-3)/T>100.7 Albuterol Sulfate (Ventolin Aerosols) 2.5 mg INHALATION Q2H PRN PRN PRN Reason: Shortness of breath, wheezing Albuterol/Ipratropium (Duoneb) 3 ml INHALATION Q4H.RT [facility] Last Admin: 01/03/18 14:10 Dose: Not Given Atorvastatin Calcium (Lipitor) 10 mg PO QHS [facility] Last Admin: 01/02/18 21:09 Dose: 10 mg Escitalopram Oxalate (Lexapro) 10 mg PO DAILY [facility] Last Admin: 01/03/18 09:33 Dose: 10 mg Ferrous Sulfate (Ferrous Sulfate) 325 mg PO TIDCM [facility] Last Admin: 01/03/18 17:15 Dose: 325 mg Fluticasone Propionate (Flonase Nasal [place]) 1 spray NASAL BID [facility] Last Admin: 01/03/18 09:35 Dose: 1 spray Furosemide (Lasix) 60 mg IV Q8 [facility] Last Admin: 01/03/18 14:44 Dose: 60 mg Furosemide (Lasix) 40 mg IV .BEFORE BLOOD RAINER Stop: 01/03/18 22:00 Last Admin: 01/03/18 16:42 Dose: 40 mg Pantoprazole Sodium 40 mg/ (Sodium Chloride) 110 mls @ 330 mls/hr IV Q12 [facility] Insulin Human Lispro (Humalog Kwikpen (Bkc)) 0 unit SQ ACHS [facility]; Protocol Last Admin: 01/03/18 17:15 Dose: 2 u Magnesium Hydroxide (Milk Of Magnesia) 30 ml PO DAILY PRN PRN Reason: Constipation Metoprolol Tartrate (Lopressor (Beta Jeffery)) 50 mg PO BID [facility] Last Admin: 01/03/18 09:32 Dose: 50 mg Nutritional Formula (Lactose Free) (Glucerna Shake) 60 ml PO 4X/DAY [facility] Last Admin: 01/03/18 17:17 Dose: Not Given Ondansetron HCl (Zofran) 4 mg IV Q8H PRN PRN PRN Reason: Nausea Last Admin: 01/03/18 12:51 Dose: 4 mg Sodium Chloride () 5 - 30 ml IV UD PRN PRN Reason: SALINE FLUSH Last Admin: 01/03/18 16:42 Dose: 10 ml Trazodone HCl (Desyrel) 100 mg PO QHS PRN PRN PRN Reason: SLEEP Medical Necessity - Tobacco Use Smoking Status: Former smoker Tobacco Use: Cigarettes Assessment/Plan All Active Problems (Last Updated 01/02/18 @ 17:11 by David Montana MD) CVA (cerebral vascular accident) (Resolved) CVA (cerebral vascular accident) (Resolved) History of GI bleeding (Resolved) 67 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 1. Acute on chronic hypoxic respiratory failure, improved, currently on her home 6 L of oxygen, secondary to acute on chronic diastolic CHF, acute on chronic anemia, continue treatment, wean off oxygen, encourage incentive spirometer 2. Acute on chronic diastolic CHF, on IV Lasix 60 mg every 8, continue with strict I's and O's, if patient does not diurese enough, will consider start of Lasix drip 3. Acute on chronic anemia, history of AVMs, chronic anemia, iron deficient, will transfuse 1 unit packed RBCs, follow H&H, Lasix in between transfusion. 4. Indeterminate troponin second to demand ischemia, will continue to monitor 5. Aortic stenosis, mild-moderate, will continue to monitor. 6. Severe COPD, with chronic respiratory failure, will continue on breathing treatment, aggressive pulmonary toileting. 7. Hypertension, stable, on metoprolol, continue to monitor vitals. 8. Type 2 diabetes mellitus, sugars are fairly uncontrolled, metformin withheld, will continue on ADA diet, Accu-Cheks, increase insulin sliding scale to high- dose 9. morbid obesity, BMI 46, diet and exercise is recommended 10. DVT prophylaxis -SCDs. Code Visit Inpatient E&M: 58181 Subs Hosp L2
[2018-01-03] MEDS: Atorvastatin Calcium 10 MG Tablet PO (21:35)
[2018-01-03 22:01] LABS: Bedside Glucose 244 mg/dL (70-110)
[2018-01-04] VITALS (19 sets, daily range): BP systolic 99–124; BP diastolic 44–60; PULSE 71–92; RESP 16–18; TEMP 36.5–37.1; O2SAT 91–95
[2018-01-04 06:06] LABS: Absolute Lymphocyte Count 0.62 X10^3/ul (0.83-4.51); Absolute Neutrophil Count 9.1 X10^3/uL (2.0-7.7); Basophil# 0.04 X10^3/uL; Basophil% 0.4 % (0-1); Eosinophil# 0.21 X10^3/uL; Eosinophils% 1.9 % (0-5); Hematocrit 29.3 % (37-47); Hemoglobin 7.9 g/dl (12.0-15.0); Lymphocyte # 0.62 X10^3/ul (4.0); Lymphocyte % 5.7 % (19-41); Mean Platelet Vol. 9.3 fl (6.2-12.0); Monocyte# 0.91 X10^3/uL; Monocyte% 8.3 % (0-10); Neutrophil # 9.05 X10^3/uL (2.7-7.7); Neutrophil % 82.4 % (47-70); POSITIVE COUNT NO; POSITIVE DIFFERENTIAL NO; POSITIVE MORPHOLOGY NO; Platelet Count 483 K/mm3 (150-450); RBC Distribution Width CV 17.4 % (11.6-14.6); RBC Distribution Width SD 59.8 fl (35.1-43.9); Red Blood Count 2.93 M/mm3 (4.2-5.4)
[2018-01-04] MEDS: 0.9% NaCl Peripheral Flush Adult/Peds IV ×2 (06:14→13:29)
[2018-01-04] MEDS: Furosemide 100 MG/10 ML Vial 60 MG IV ×2 (06:14→13:29)
[2018-01-04 06:50] LABS: Bedside Glucose 151 mg/dL (70-110)
[2018-01-04] MEDS: Insulin Lispro 100 UNIT/ML INSULN.PEN SQ ×4 (07:48→22:43)
[2018-01-04] MEDS: Fluticasone 0.05% 1 SPRAY NASAL.SRY NASAL (07:49)
[2018-01-04] MEDS: Ferrous Sulfate 325 MG Tablet PO ×3 (07:49→17:30)
[2018-01-04] MEDS: Escitalopram Oxalate 10 MG Tablet PO (07:50)
[2018-01-04] MEDS: Metoprolol Tartrate 50 MG Tablet PO ×2 (07:50→22:44)
[2018-01-04 11:41] LABS: Bedside Glucose 184 mg/dL (70-110)
[2018-01-04] MEDS: Ipratropium/Albuterol Sulfate 3 ML AMPUL.NEB INHALATION ×3 (11:56→18:53)
--- NOTE | 2018-01-04 12:28 | PCM.PN.HOSP ---
Subjective: Patient sitting in the chair and short of breath. She states her shortness of breath is little better but not at baseline. She has leg edema. At home, she is on 6 L of oxygen. No chest pains or palpitation. Vitals/I&O's: Vital Signs Temp Pulse Resp BP Pulse Ox 97.7 F L 74 16 124/58 H 94 01/04/18 09:05 01/04/18 11:55 01/04/18 11:55 01/04/18 09:05 01/04/18 11:55 Oxygen Flow Rate (L/min) 5 Oxygen Delivery Method Nasal Cannula Weight: 257 lb 7.999 oz Body Mass Index (BMI) 45.4 Intake and Output for Last 24 Hours 01/02/18 01/03/18 01/04/18 23:59 23:59 23:59 Intake Total 2651 / 2651 495.4 / 495.4 Output Total 2700 / 2700 900 / 900 Balance -49 / -49 -404.6 / -404.6 General: Alert, Oriented x3, Cooperative HEENT: Atraumatic, PERRLA, EOMI, Normocephalic Neck: Supple, No JVD, Negative Carotid Bruits Lungs: Diminished, Rales, Rhonchi, Short of Breath Cardiovascular: Regular rate, Regular Rhythm, Normal S1, Normal S2, No murmurs Abdomen: Bowel Sounds Present, Soft, Non Tender, Non-Distended Extremities: Capillary Refill Less than 3 Seconds, Edema Skin: No rashes, No breakdown Musculoskeletal: No Tenderness to Palpation of Joints or Extremities, Arthritic Changes, Muscle Wasting Neurological: Cranial nerves II-XII grossly intact Psych/Mental Status: Normal Affect, Appropriate Laboratory Results 01/02/18 16:40: Blood Type AB POSITIVE, Antibody Screen NEGATIVE, Crossmatch See Detail 01/03/18 05:20: Iron 25 L, TIBC 316, Iron Saturation 7.9 L 01/03/18 17:13: POC Glucose 190 H 01/03/18 21:32: POC Glucose 244 H 01/04/18 05:41: WBC 11.0, RBC 2.93 L, Hgb 7.9 L, Hct 29.3 L, MCV 100.0 H, MCH 27.0, MCHC 27.0 L, RDW 17.4 H, RDW Differential 59.8 H, Plt Count 483 H, MPV 9.3, Immature Gran % (Auto) 1.300 H, Neut % (Auto) 82.4 H, Lymph % (Auto) 5.7 L, [place] % (Auto) 8.3, Eos % (Auto) 1.9, Baso % (Auto) 0.4, Absolute Neuts (auto) 9.1 H, Absolute Lymphs (auto) 0.62 L, Total Counted Not Reportable 01/04/18 06:46: POC Glucose 151 H 01/04/18 11:33: POC Glucose 184 H Current Medications Acetaminophen (Tylenol) 650 mg PO Q6H PRN PRN PRN Reason: Mild Pain (scale 0-3)/T>100.7 Albuterol Sulfate (Ventolin Aerosols) 2.5 mg INHALATION Q2H PRN PRN PRN Reason: Shortness of breath, wheezing Albuterol/Ipratropium (Duoneb) 3 ml INHALATION Q4H.RT [facility] Last Admin: 01/04/18 11:56 Dose: 3 ml Atorvastatin Calcium (Lipitor) 10 mg PO QHS [facility] Last Admin: 01/03/18 21:35 Dose: 10 mg Escitalopram Oxalate (Lexapro) 10 mg PO DAILY [facility] Last Admin: 01/04/18 07:50 Dose: 10 mg Ferrous Sulfate (Ferrous Sulfate) 325 mg PO TIDCM [facility] Last Admin: 01/04/18 07:49 Dose: 325 mg Fluticasone Propionate (Flonase Nasal [place]) 1 spray NASAL BID [facility] Last Admin: 01/04/18 07:49 Dose: 1 spray Furosemide (Lasix) 60 mg IV Q8 [facility] Last Admin: 01/04/18 06:14 Dose: 60 mg Pantoprazole Sodium 40 mg/ (Sodium Chloride) 110 mls @ 330 mls/hr IV Q12 [facility] Last Admin: 01/04/18 09:27 Dose: 330 mls/hr Insulin Human Lispro (Humalog Kwikpen (Bkc)) 0 unit SQ ACHS [facility]; Protocol Last Admin: 01/04/18 07:48 Dose: 3 u Magnesium Hydroxide (Milk Of Magnesia) 30 ml PO DAILY PRN PRN Reason: Constipation Metoprolol Tartrate (Lopressor (Beta Jeffery)) 50 mg PO BID [facility] Last Admin: 01/04/18 07:50 Dose: 50 mg Ondansetron HCl (Zofran) 4 mg IV Q8H PRN PRN PRN Reason: Nausea Last Admin: 01/03/18 12:51 Dose: 4 mg Sodium Chloride () 5 - 30 ml IV UD PRN PRN Reason: SALINE FLUSH Last Admin: 01/04/18 06:14 Dose: 10 ml Trazodone HCl (Desyrel) 100 mg PO QHS PRN PRN PRN Reason: SLEEP Medical Necessity - Tobacco Use Smoking Status: Former smoker Tobacco Use: Cigarettes Assessment/Plan All Active Problems (Last Updated 01/02/18 @ 17:11 by David Montana MD) CVA (cerebral vascular accident) (Resolved) CVA (cerebral vascular accident) (Resolved) History of GI bleeding (Resolved) This is a pleasant 67 years 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 1. Acute on chronic hypoxic respiratory failure, improved, currently on her home 6 L of oxygen, secondary to acute on chronic diastolic CHF, acute on chronic anemia: Patient is not having good free water clearance Lasix 60 mg every 8 hourly. She was admitted with 256 pounds and still 257 pound. Add low-dose lisinopril for afterload reduction. Continue treatment, wean off oxygen, encourage incentive spirometer. 2. Acute on chronic diastolic CHF on Lasix IV drip, rest as mentioned above: continue with strict I's and O's. 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 Sinus rhythm. Echo in May 2017 reported as EF 60% with normal systolic function. Mild concentric LVH. No regional wall motion abnormality. Normal RV size systolic function. LA moderately enlarged. Moderate TR, RVSP 60 mmHg. Moderately severe aortic stenosis, mean AV gradient 34 mmHg severe focal aortic valve calcification. Cardiology consult 3. Acute on chronic anemia, history of AVMs, chronic anemia, iron deficient. Patient had 1 unit of PRBC transfusion on 01/03. Hemoglobin from 7-7.9. Follow H&H, Lasix in between transfusion. 4. Indeterminate troponin second to demand ischemia, continue to monitor 5. Aortic stenosis, moderately severe: Maintain fluid balance. 6. Severe COPD, with chronic respiratory failure, will continue on breathing treatment, aggressive pulmonary toileting. 7. Hypertension, stable, on metoprolol, continue to monitor vitals. 8. Type 2 diabetes mellitus, sugars are fairly uncontrolled, metformin withheld, will continue on ADA diet, Accu-Cheks, increase insulin sliding scale to high-dose 9. morbid obesity, BMI 46, diet and exercise is recommended 10. DVT prophylaxis -SCDs. Laboratory Results 01/02/18 16:40: Blood Type AB POSITIVE, Antibody Screen NEGATIVE, Crossmatch See Detail 01/03/18 05:20: Iron 25 L, TIBC 316, Iron Saturation 7.9 L 01/03/18 17:13: POC Glucose 190 H 01/03/18 21:32: POC Glucose 244 H 01/04/18 05:41: WBC 11.0, RBC 2.93 L, Hgb 7.9 L, Hct 29.3 L, MCV 100.0 H, MCH 27.0, MCHC 27.0 L, RDW 17.4 H, RDW Differential 59.8 H, Plt Count 483 H, MPV 9.3, Immature Gran % (Auto) 1.300 H, Neut % (Auto) 82.4 H, Lymph % (Auto) 5.7 L, [place] % (Auto) 8.3, Eos % (Auto) 1.9, Baso % (Auto) 0.4, Absolute Neuts (auto) 9.1 H, Absolute Lymphs (auto) 0.62 L, Total Counted Not Reportable 01/04/18 06:46: POC Glucose 151 H 01/04/18 11:33: POC Glucose 184 H Clinical Impression(s) from Imaging Studies Chest X-Ray 01/02/18 15:13 IMPRESSION: Mild perihilar interstitial and vascular prominence in the lungs may be related to technique. Differential considerations include mild CHF, or mild pneumonitis. There is no focal infiltrate and no visible effusion. Active Medications Acetaminophen (Tylenol) 650 mg PO Q6H PRN PRN PRN Reason: Mild Pain (scale 0-3)/T>100.7 Albuterol Sulfate (Ventolin Aerosols) 2.5 mg INHALATION Q2H PRN PRN PRN Reason: Shortness of breath, wheezing Albuterol/Ipratropium (Duoneb) 3 ml INHALATION Q4H.RT [facility] Last Admin: 01/04/18 14:40 Dose: 3 ml Atorvastatin Calcium (Lipitor) 10 mg PO QHS [facility] Last Admin: 01/03/18 21:35 Dose: 10 mg Escitalopram Oxalate (Lexapro) 10 mg PO DAILY [facility] Last Admin: 01/04/18 07:50 Dose: 10 mg Ferrous Sulfate (Ferrous Sulfate) 325 mg PO TIDCM [facility] Last Admin: 01/04/18 12:47 Dose: 325 mg Fluticasone Propionate (Flonase Nasal [place]) 1 spray NASAL BID [facility] Last Admin: 01/04/18 07:49 Dose: 1 spray Furosemide (Lasix) 60 mg IV Q8 [facility] Last Admin: 01/04/18 13:29 Dose: 60 mg Pantoprazole Sodium 40 mg/ (Sodium Chloride) 110 mls @ 330 mls/hr IV Q12 [facility] Last Admin: 01/04/18 09:27 Dose: 330 mls/hr Insulin Human Lispro (Humalog Kwikpen (Bkc)) 0 unit SQ ACHS [facility]; Protocol Last Admin: 01/04/18 12:47 Dose: 3 u Magnesium Hydroxide (Milk Of Magnesia) 30 ml PO DAILY PRN PRN Reason: Constipation Metoprolol Tartrate (Lopressor (Beta Jeffery)) 50 mg PO BID [facility] Last Admin: 01/04/18 07:50 Dose: 50 mg Ondansetron HCl (Zofran) 4 mg IV Q8H PRN PRN PRN Reason: Nausea Last Admin: 01/03/18 12:51 Dose: 4 mg Sodium Chloride () 5 - 30 ml IV UD PRN PRN Reason: SALINE FLUSH Last Admin: 01/04/18 13:29 Dose: 10 ml Trazodone HCl (Desyrel) 100 mg PO QHS PRN PRN PRN Reason: SLEEP Code Visit Inpatient E&M: 75134 Subs Hosp L3
[2018-01-04 16:56] LABS: Bedside Glucose 180 mg/dL (70-110)
[2018-01-04 17:16] LABS: BUN 25 mg/dL (7-18); BUN/Creat Ratio 27.9 RATIO (10-20); Calcium,Total 8.5 mg/dL (8.5-10.1); Carbon Dioxide > 45.0 mmol/L (21.0-32.0); Chloride 86 mmol/L (98-107); EST Glomerular Filtration Rate 66 mL/min (>60); Est Glom Filt Rate - Afr Amer 80 mL/min (>60); Glucose 160 mg/dL (74-106); Potassium 4.4 mmol/L (3.5-5.1); Sodium Level 137 mmol/L (136-145)
[2018-01-04] MEDS: Lisinopril 2.5 MG Tablet PO (17:30)
[2018-01-04] MEDS: Furosemide 500 MG in Empty Viaflex 50 mL 1 EACH CONT INF (17:30)
--- NOTE | 2018-01-04 18:44 | ECHOCS_ITS ---
Reason For Study: Murmur Procedure This was a 2D Doppler, Color Flow transthoracic echocardiogram. The study was technically difficult. Contrast injection was performed. Exam performed portable in patient room. Left Ventricle Normal LV size. D shaped septum in systole and diastole. Left ventricular systolic function is normal. The estimated ejection fraction is 65 %. Diastolic function is indeterminate. No regional wall motion abnormalities noted. Right Ventricle Normal RV size. Normal systolic function. Atria The left atrium is moderately enlarged. Normal right atrium. No doppler evidence for ASD. Mitral Valve There is mild to moderate mitral annular calcification. Extension of the mitral annular calcification onto the posterior mitral valve leaflet. Trivial mitral valve insufficiency. Tricuspid Valve Normal tricuspid valve. Trivial tricuspid valve insufficiency. Unable to estimate RV systolic pressure/pulmonary artery pressure due to technically difficult study. Aortic Valve The aortic valve is not well visualized. Moderate to severe aortic valve stenosis. Pulmonic Valve The pulmonic valve is not well visualized. Great Vessels Normal sized aortic root. Calcified aortic root. Pericardium/Pleural No pericardial effusion. Medication Diluted definity 4ml given slow IV push to enhance endocardial definition. MMode/2D Measurements & Calculations LVIDd: 4.9 cm IVSd: 1.2 cm LVOT diam: 2.0 cm LVIDs: 2.3 cm LVPWd: 1.4 cm LVOT area: 3.0 cm2 FS: 52.8 % Ao root diam: 2.9 cm LAV(MOD-sp4): 105.8 ml LA A4 area: 30.9 cm2 Time Measurements MV dec time: 0.31 sec Doppler Measurements & Calculations MV E max chucho: 108.2 cm/sec Lat Peak E' Chucho: 12.3 cm/sec Med Peak E' Chucho: 10.2 cm/sec MV A max chucho: 98.4 cm/sec E/E' lat: 8.8 E/E' med: 10.6 MV E/A: 1.1 MV V2 max: 170.0 cm/sec MV P1/2t max chucho: 171.9 cm/sec Ao V2 max: 371.5 cm/sec MV max P.7 mmHg MV P1/2t: 66.3 msec Ao max P.2 mmHg MV V2 mean: 97.0 cm/sec MV dec slope: 759.9 cm/sec2 Ao V2 mean: 240.1 cm/sec MV mean P.5 mmHg MVA(P1/2t): 3.3 cm2 Ao mean P.8 mmHg MV V2 VTI: 41.4 cm Ao V2 VTI: 69.4 cm MVA(VTI): 1.7 cm2 LUPE(I,D): 1.0 cm2 LUPE(V,D): 0.89 cm2 LV V1 max: 110.6 cm/sec SV(LVOT): 70.7 ml PA V2 max: 152.2 cm/sec LV V1 max P.9 mmHg LV V1 mean P.5 mmHg LV V1 mean: 71.5 cm/sec LV V1 VTI: 23.6 cm Interpretation Summary The study was technically difficult. Contrast injection was performed. Left ventricular systolic function is normal. The estimated ejection fraction is 65 %. D shaped septum in systole and diastole. The left atrium is moderately enlarged. There is mild to moderate mitral annular calcification. Extension of the mitral annular calcification onto the posterior mitral valve leaflet. Trivial mitral valve insufficiency. Trivial tricuspid valve insufficiency. Moderate to severe aortic valve stenosis. Calcified aortic root. Unable to estimate RV systolic pressure/pulmonary artery pressure due to technically difficult study. Diastolic function is indeterminate. Ordering Physician: Vic Xavier Referring Physician: Vic Chen Performed By: John Tim RCS
--- NOTE | 2018-01-04 18:45 | PCM.CONS.C ---
Problem List (1) Diastolic CHF, acute on chronic Status: Acute (2) Aortic stenosis Status: Chronic Comment: Moderate to severe with valve area 1.1 on cardiac catheterization in 2013 (3) Pulmonary hypertension Status: Chronic Comment: With PA pressures 55 by cardiac catheterization (4) HLD (hyperlipidemia) Status: Chronic Qualifiers: (5) Hypertension Status: Chronic Qualifiers: (6) Diabetes mellitus type II Status: Chronic (7) Stage 3 severe COPD by GOLD classification Status: Chronic (8) Anemia Status: Chronic Qualifiers: Anemia type: iron deficiency Iron deficiency anemia type: chronic blood loss Qualified Code(s): D50.0 - Iron deficiency anemia secondary to blood loss (chronic) Reason for Consult Date of Consultation: 01/04/18 History of Present Illness: The patient is a 67 year old female who presents with worsening shortness of breath/dyspnea and peripheral pitting edema compatible with acute on chronic diastolic mediated CHF superimposed upon a history of aortic valve stenosis, pulmonary hypertension, hyper lipidemia, hypertension, diabetes mellitus, COPD, and anemia potentially secondary to gastrointestinal bleeding process. She has been followed as an outpatient by [facility] locally and by [facility]. She states she was to have a [facility] visit this past week but failed to do so because she was feeling poorly. She presented for her local follow-up and was found with the acute issues. She was recommended for emergency department evaluation and care. She was subsequently evaluated and found to have the aforementioned concerns as well as continued concerns of anemia. She was brought into the hospital for additional medical management with diuretics and PRBC transfusions. She notes despite receiving pulse dosed furosemide/Lasix and 1 unit of PRBCs she has had no significant improvement in her underlying clinical course. She denies at this time ongoing chest discomfort. She has been chronically short of breath and dyspneic despite her medical management/O2 support. She has had ongoing peripheral pitting edema of the lower extremities. She has had no near syncope or syncope. Her ECG demonstrated the appearance of underlying sinus rhythm with a right bundle branch block pattern. It was repeated with no significant change. [] Past Medical History Allergies/Adverse Reactions: Allergies No Known Allergies Allergy (Verified 01/02/18 15:03) Home Medications: Ambulatory Orders Medication Instructions Recorded Metformin HCl [Glucophage] 1,000 mg PO BIDCM 01/15/14 Simvastatin [Zocor] 20 mg PO QHS 01/15/14 Escitalopram Oxalate [Lexapro] 10 mg PO DAILY 06/29/15 traZODone [Desyrel] 100 mg PO QHS PRN PRN 06/29/15 Budesonide/Formoterol Fumarate 2 puff IH BID 03/27/17 [Symbicort 160-4.5 Mcg Inhaler] Fluticasone 0.05% [Flonase Nasal 1 spray NASAL BID 04/24/17 [place]] Acetaminophen [Tylenol Tablet] 650 mg PO Q6H PRN PRN tab 06/10/17 Ipratropium/Albuterol Sulfate 3 ml INHALATION Q4H.RT ampul.neb 06/10/17 [Duoneb] Furosemide [Lasix] 80 mg PO BID 09/02/17 ferrous sulfate 325 mg (65 mg 325 mg PO TID tab 09/09/17 iron) tablet metoprolol tartrate 50 mg tablet 50 mg PO BID #180 tab 11/12/17 Albuterol Sulfate [Ventolin Hfa] 1 - 2 puff INHALATION PRN PRN 01/02/18 Past Medical History (Chronic Problems): Chronic Problems (Last Updated 01/02/18 @ 17:11 by David Montana MD) Chronic diastolic (congestive) heart failure (Chronic) Cerebral infarction, unspecified (Chronic) Palpitations (Chronic) Anxiety (Chronic) Left atrial enlargement (Chronic) Hypersomnia (Chronic) Anemia (Chronic) Carotid artery stenosis (Chronic) Chronic hypoxemic respiratory failure (Chronic) Pulmonary fibrosis (Chronic) 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 3 severe COPD by GOLD classification (Chronic) Aortic stenosis (Chronic) Moderate to severe with valve area 1.1 on cardiac catheterization in 2013 Diabetes mellitus type II (Chronic) Pulmonary hypertension (Chronic) With PA pressures 55 by cardiac catheterization Hypertension (Chronic) HLD (hyperlipidemia) (Chronic) 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) Surgical History: herniorrhaphy, hysterectomy, - Psychiatric History: No pertinent psych hx FORE[employer] CHIEF History: No 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 - *Family History Paternal Family History: Family History (Last Reviewed 05/02/17 @ 11:14 by Yakelin Berkowitz) Mother Heart disease Father CAD (coronary artery disease) Hypertension Brother Hypertension History Items: Heart Disease Maternal Family History: Family History (Last Reviewed 05/02/17 @ 11:14 by Yakelin Berkowitz) Mother Heart disease Father CAD (coronary artery disease) Hypertension Brother Hypertension History Items: Heart Disease Smoking Status: Former smoker Tobacco Use: Cigarettes Alcohol: None Drugs: None Review of Systems - Review of Systems General: Denies: Fever, Night Sweats, Fatigue Cardiovascular: Reports: Shortness of Breath, Shortness of Breath at Rest, Shortness of Breath with Exertion, Peripheral Edema. Denies: Chest Discomfort, Orthopnea, PND, Palpitations, Lightheadedness, Dizziness, Near Syncope, Syncope Respiratory: Reports: Shortness of Breath. Denies: Cough, Sputum Production, Hemoptysis Gastrointestinal: Denies: Hematemesis, Hematochezia, Melena Genitourinary: Denies: Dysuria, Hematuria Skin: Denies: Rash Subjectve: This is a 67-year-old white female sitting with O2 nasal cannula in no acute distress. Objective: Vital Signs Temp Pulse Resp BP Pulse Ox 98.1 F 76 18 110/60 94 01/04/18 15:05 01/04/18 15:05 01/04/18 15:05 01/04/18 15:05 01/04/18 15:05 Oxygen Flow Rate (L/min) 5 Oxygen Delivery Method Nasal Cannula Weight: 257 lb 7.999 oz Body Mass Index (BMI) 45.4 Intake and Output for Last 24 Hours 01/02/18 01/03/18 01/04/18 23:59 23:59 23:59 Intake Total 2651 / 2651 705.1 / 705.1 Output Total 2700 / 2700 1550 / 1550 Balance -49 / -49 -844.9 / -844.9 General: Awake, Alert, Oriented x 3, Cooperative, No Acute Distress, Obese HEENT: Atraumatic, Normocephalic, PERRL, EOMI, Sclera Non Icteric Oral: Moist Mucosa Neck: Supple, Good ROM, No JVD Lungs: - - Diminished breath sounds bilaterally Cardiovascular: Regular Rhythm, Normal S1, Normal S2 Murmur Murmur: Grade 3/6, Harsh, Mid Systolic, LLSB, LVOT, Sternal Notch Vascular: Radiation of Murmur to Carotid Arteries Abdomen: Bowel Sounds Present, Soft, Non Tender Extremities: Severe RLE Edema, Severe LLE Edema Neurological: No Focal Motor or Sensory Deficit Psych/Mental Status: Appropriate, Normal Affect 01/04/18 05:41: WBC 11.0, RBC 2.93 L, Hgb 7.9 L, Hct 29.3 L, MCV 100.0 H, MCH 27.0, MCHC 27.0 L, RDW 17.4 H, RDW Differential 59.8 H, Plt Count 483 H, MPV 9.3, Immature Gran % (Auto) 1.300 H, Neut % (Auto) 82.4 H, Lymph % (Auto) 5.7 L, [place] % (Auto) 8.3, Eos % (Auto) 1.9, Baso % (Auto) 0.4, Absolute Neuts (auto) 9.1 H, Total Counted Not Reportable 01/04/18 16:38: Sodium 137, Potassium 4.4, Chloride 86 L, Carbon Dioxide > 45.0 H*, Anion Gap TNP, BUN 25 H, Creatinine 0.90, Est GFR (MDRD) Af Amer 80, Est GFR (MDRD) Non-Af 66, BUN/Creatinine Ratio 27.9 H, Glucose 160 H, Calcium 8.5 Rhythm: Sinus rhythm EKG: As noted above ECHO: 05/31/2017: Left ventricle: Normal LV systolic function with an LVEF of 60%; moderate left atrial enlargement; mild mitral annular calcification; moderate TR; aortic valve stenosis with a peak gradient of 58 mmHg, a mean gradient of 34 mmHg, and an aortic valve area of 0.93 cm? compatible with moderately severe aortic valve stenosis, estimated RV systolic pressure of 60 mmHg compatible pulmonary hypertension Cardiac Cath: 06/07/2017: Left ventricle: LVEF 55%; left main normal; LAD mild luminal irregularity; LCx mild luminal irregularities; RCA mild luminal irregularity; aortic valve area reported at 1.36 cm? CXR: Preliminary evaluation: Findings compatible with increased pulmonary vascularity: Please see official report Assessment/Plan 1. Acute on chronic diastolic mediated CHF At the present time patient presents with findings compatible with acute on chronic diastolic mediated CHF. She has been undergoing evaluation care. Thus far she has not responded to pulse dose IV furosemide/Lasix. At the present time she will be placed on continuous infusion IV furosemide/Lasix. Hopefully her diuresis will improve and it will improve her underlying pulmonary process as well as her peripheral pitting edema. She will continue oxygen support. 2. Aortic valve stenosis She does have a history of aortic valve stenosis. There is somewhat of a discrepancy between her transthoracic echocardiogram and her diagnostic cardiac catheterization. He has been evaluated at the [facility] [place] for her aortic valve stenosis for consideration for TAVR thus far they have not proceeded with this procedure. Depending upon her clinical course she may need to return to the [facility], by transfer if necessary, for further evaluation and care of her aortic valve disease process and whether or not this procedure needs to be reconsidered to assist with her overall cardiopulmonary process. 3. Pulmonary hypertension This may be secondary to not only her cardiovascular disease but her pulmonary disease with her COPD, etc. This can lead to cor pulmonale and right heart failure. He will need continued pulmonary support and medical therapy which does include her diuretic therapy. 4. Hyperlipidemia She will continue lipid-lowering therapy as deemed appropriate. 5. Hypertension She will continue antihypertensive therapy with adjustment as needed. 6. Diabetes mellitus She will continue under the care of internal medicine. 7. COPD She does have a history of COPD. She will need continue pulmonary evaluation care. She is on O2 therapy. 8. Anemia Despite PRBCs she remains anemic with a hemoglobin less than 8. Based upon her cardiopulmonary process would not be unreasonable to give her another unit of PRBCs and attempt to increase her H&H which may help her oxygen carrying capacity. Comment: The patient's case has been discussed and reviewed with the patient as well as the [facility] staff-Dr. Medrano. This note was generated with [employer] dictation software. It may contain incorrect words, spelling, and punctuation that were not noted in checking the note before signing.
--- NOTE | 2018-01-04 19:51 | NURSING ---
SPOKE TO JF IN PHARMACY STATED PROTONIX IV AND LASIX DRIP ARE COMPATIBLE.
[2018-01-04] MEDS: Atorvastatin Calcium 10 MG Tablet PO (22:44)
[2018-01-04] MEDS: traZODone 100 MG Tablet PO (22:44)
[2018-01-04 22:56] LABS: Bedside Glucose 164 mg/dL (70-110)
[2018-01-05] VITALS (22 sets, daily range): BP systolic 93–109; BP diastolic 42–62; PULSE 72–94; RESP 16–18; TEMP 36.5–37.1; O2SAT 90–99
[2018-01-05 06:53] LABS: Absolute Lymphocyte Count 1.16 X10^3/ul (0.83-4.51); Basophil# 0.03 X10^3/uL; Basophil% 0.2 % (0-1); Eosinophil# 0.22 X10^3/uL; Eosinophils% 1.4 % (0-5); Hematocrit 31.2 % (37-47); Hemoglobin 8.7 g/dl (12.0-15.0); Lymphocyte # 1.16 X10^3/ul (4.0); Lymphocyte % 7.2 % (19-41); Mean Corp Hgb Conc 27.9 g/gl (32-36); Mean Corpuscular Hgb 27.1 pg (27.0-32.0); Mean Corpuscular Volume 97.2 fL (81-99); Mean Platelet Vol. 9.2 fl (6.2-12.0); Monocyte# 0.58 X10^3/uL; Monocyte% 3.6 % (0-10); Neutrophil # 13.98 X10^3/uL (2.7-7.7); Neutrophil % 87.1 % (47-70); Platelet Count 440 K/mm3 (150-450); RBC Distribution Width CV 16.5 % (11.6-14.6); RBC Distribution Width SD 58.2 fl (35.1-43.9); Red Blood Count 3.21 M/mm3 (4.2-5.4); White Blood Count 16.1 K/mm3 (4.4-11.0)
[2018-01-05 06:55] LABS: Bedside Glucose 182 mg/dL (70-110)
[2018-01-05] MEDS: Ipratropium/Albuterol Sulfate 3 ML AMPUL.NEB INHALATION ×5 (06:58→22:38)
[2018-01-05 06:59] LABS: POSITIVE COUNT NO; POSITIVE DIFFERENTIAL NO; POSITIVE MORPHOLOGY NO
[2018-01-05 07:18] LABS: Anion Gap 7 (5-15); BUN 27 mg/dL (7-18); BUN/Creat Ratio 28.6 RATIO (10-20); Calcium,Total 8.5 mg/dL (8.5-10.1); Chloride 86 mmol/L (98-107); Creatinine, Serum 0.94 mg/dL (0.55-1.02); EST Glomerular Filtration Rate 62 mL/min (>60); Est Glom Filt Rate - Afr Amer 75 mL/min (>60); Estimated Creatinine Clearance 46.72 ml/min; Glucose 178 mg/dL (74-106); Potassium 4.2 mmol/L (3.5-5.1); Sodium Level 138 mmol/L (136-145)
[2018-01-05] MEDS: Insulin Lispro 100 UNIT/ML INSULN.PEN SQ ×3 (08:26→22:17)
[2018-01-05] MEDS: Metoprolol Tartrate 50 MG Tablet PO ×2 (08:28→22:17)
[2018-01-05] MEDS: Ferrous Sulfate 325 MG Tablet PO ×3 (08:28→16:39)
[2018-01-05] MEDS: Escitalopram Oxalate 10 MG Tablet PO (08:28)
--- NOTE | 2018-01-05 11:44 | PN.CARD_ITS ---
Subjectve: The patient states she feels somewhat better with respect to her breathing, however, she can still become easily short of breath with ambulation to the restroom and back to her chair. Objective: Vital Signs Temp Pulse Resp BP Pulse Ox 98.5 F 79 18 104/49 L 92 01/05/18 08:05 01/05/18 11:11 01/05/18 11:11 01/05/18 08:05 01/05/18 08:05 Oxygen Flow Rate (L/min) 5 Oxygen Delivery Method Nasal Cannula Weight: 254 lb 13.67 oz Body Mass Index (BMI) 45.4 Intake and Output for Last 24 Hours 01/03/18 01/04/18 01/05/18 23:59 23:59 23:59 Intake Total 2651 / 2651 1105.1 / 1105.1 Output Total 2700 / 2700 2049 / 2049 600 / 600 Balance -49 / -49 -944.9 / -944.9 -574 / -574 General: Awake, Alert, Oriented x 3, Cooperative, No Acute Distress, Obese HEENT: Atraumatic, Normocephalic, PERRL, EOMI, Sclera Non Icteric Oral: Moist Mucosa Neck: Supple, Good ROM, No JVD Lungs: - - diminished breath sounds bilaterally Cardiovascular: Regular Rhythm, Normal S1, Normal S2 Murmur Murmur: Grade 3/6, Harsh, Mid Systolic, LLSB, LVOT, Sternal Notch Abdomen: Bowel Sounds Present, Soft, Non Tender, Obese Extremities: Severe RLE Edema, Severe LLE Edema Neurological: No Focal Motor or Sensory Deficit Psych/Mental Status: Appropriate, Normal Affect 01/04/18 16:38: Sodium 137, Potassium 4.4, Chloride 86 L, Carbon Dioxide > 45.0 H*, Anion Gap TNP, BUN 25 H, Creatinine 0.90, Est GFR (MDRD) Af Amer 80, Est GFR (MDRD) Non-Af 66, BUN/Creatinine Ratio 27.9 H, Glucose 160 H, Calcium 8.5 01/05/18 06:40: Sodium 138, Potassium 4.2, Chloride 86 L, Carbon Dioxide 45.0 H, Anion Gap 7, BUN 27 H, Creatinine 0.94, Est GFR (MDRD) Af Amer 75, Est GFR (MDRD) Non-Af 62, BUN/Creatinine Ratio 28.6 H, Glucose 178 H, Calcium 8.5 01/05/18 06:40: WBC 16.1 H, RBC 3.21 L, Hgb 8.7 L, Hct 31.2 L, MCV 97.2, MCH 27. 1, MCHC 27.9 L, RDW 16.5 H, RDW Differential 58.2 H, Plt Count 440, MPV 9.2, Immature Gran % (Auto) 0.500, Neut % (Auto) 87.1 H, Lymph % (Auto) 7.2 L, [place] % (Auto) 3.6, Eos % (Auto) 1.4, Baso % (Auto) 0.2, Absolute Neuts (auto) 14.0 H, Total Counted Not Reportable Rhythm: sinus rhythm Medical Necessity - Tobacco Use Smoking Status: Former smoker Tobacco Use: Cigarettes Assessment/Plan 1. Acute on chronic diastolic mediated CHF At the present time patient presents with findings compatible with acute on chronic diastolic mediated CHF. She has been undergoing evaluation care. Thus far she has not responded to pulse dose IV furosemide/Lasix. At the present time she will continue infusion IV furosemide/Lasix. Hopefully her diuresis will improve and it will improve her underlying pulmonary process as well as her peripheral pitting edema. She will continue oxygen support. 2. Aortic valve stenosis She does have a history of aortic valve stenosis. There is somewhat of a discrepancy between her transthoracic echocardiogram and her diagnostic cardiac catheterization. He has been evaluated at the [facility] for her aortic valve stenosis for consideration for TAVR thus far they have not proceeded with this procedure. Depending upon her clinical course she may need to return to the [facility], by transfer if necessary, for further evaluation and care of her aortic valve disease process and whether or not this procedure needs to be reconsidered to assist with her overall cardiopulmonary process. 3. Pulmonary hypertension This may be secondary to not only her cardiovascular disease but her pulmonary disease with her COPD, etc. This can lead to cor pulmonale and right heart failure. He will need continued pulmonary support and medical therapy which does include her diuretic therapy. 4. Hyperlipidemia She will continue lipid-lowering therapy as deemed appropriate. 5. Hypertension She will continue antihypertensive therapy with adjustment as needed. 6. Diabetes mellitus She will continue under the care of internal medicine. 7. COPD She does have a history of COPD. She will need continue pulmonary evaluation care. She is on O2 therapy. 8. Anemia Her H/H is improved s/p additional PRBCs. Hopefully this will assist her O2 carrying capacity. Comment: The patient's case has been discussed and reviewed with the patient as well as the [facility] staff-Dr. Medrano. This note was generated with [employer] dictation software. It may contain incorrect words, spelling, and punctuation that were not noted in checking the note before signing.
--- NOTE | 2018-01-05 11:50 | PN_ITS ---
Patient Problems: Active and Suspected Problems (Last Updated 01/02/18 @ 17:11 by David Montana MD) Diastolic CHF, acute on chronic (Acute) Subjective: Patient feels improvement in breathing. Yesterday started on IV Lasix drip and she had about 2000 mL urine output. 1000 mL urine output since 12 AM today. She had drop of 3 pounds of fluid weight Vitals/I&O's: Vital Signs Temp Pulse Resp BP Pulse Ox 98.5 F 79 18 104/49 L 92 01/05/18 08:05 01/05/18 11:11 01/05/18 11:11 01/05/18 08:05 01/05/18 08:05 Oxygen Flow Rate (L/min) 5 Oxygen Delivery Method Nasal Cannula Weight: 254 lb 13.67 oz Body Mass Index (BMI) 45.4 Intake and Output for Last 24 Hours 01/03/18 01/04/18 01/05/18 23:59 23:59 23:59 Intake Total 2651 / 2651 1105.1 / 1105.1 Output Total 2700 / 2700 2049 / 2049 600 / 600 Balance -49 / -49 -944.9 / -944.9 -574 / -574 General: Alert, Oriented x3, Cooperative HEENT: Atraumatic, PERRLA, EOMI, Normocephalic Neck: Supple, No JVD, Negative Carotid Bruits Lungs: No wheeze, Diminished - Diminished air entry bilateral lung bases, Rales - Bilateral coarse rales present, - - On 5 L of oxygen Cardiovascular: Normal S2, Irregular Rate, Murmur - Systolic murmur present over aortic region and pansystolic murmur over mitral region, - - Sinus rhythm. PVCs, couplets and short runs of NSVT Abdomen: Bowel Sounds Present, Soft, Non Tender, Non-Distended Extremities: Capillary Refill Less than 3 Seconds, Edema - Mild edema Skin: No rashes, No breakdown Musculoskeletal: No Tenderness to Palpation of Joints or Extremities, Arthritic Changes, Muscle Wasting Neurological: Cranial nerves II-XII grossly intact, Neuro grossly intact Psych/Mental Status: Normal Affect, Appropriate Laboratory Results 01/02/18 16:40: Crossmatch See Detail 01/02/18 16:40: Crossmatch See Detail 01/04/18 16:38: Sodium 137, Potassium 4.4, Chloride 86 L, Carbon Dioxide > 45.0 H*, Anion Gap TNP, BUN 25 H, Creatinine 0.90, Estim Creat Clear Calc 48.80, Est GFR (MDRD) Af Amer 80, Est GFR (MDRD) Non-Af 66, BUN/Creatinine Ratio 27.9 H, Glucose 160 H, Calcium 8.5 01/04/18 16:42: POC Glucose 180 H 01/04/18 22:35: POC Glucose 164 H 01/05/18 06:40: Sodium 138, Potassium 4.2, Chloride 86 L, Carbon Dioxide 45.0 H, Anion Gap 7, BUN 27 H, Creatinine 0.94, Estim Creat Clear Calc 46.72, Est GFR (MDRD) Af Amer 75, Est GFR (MDRD) Non-Af 62, BUN/Creatinine Ratio 28.6 H, Glucose 178 H, Calcium 8.5 01/05/18 06:40: WBC 16.1 H, RBC 3.21 L, Hgb 8.7 L, Hct 31.2 L, MCV 97.2, MCH 27.1, MCHC 27.9 L, RDW 16.5 H, RDW Differential 58.2 H, Plt Count 440, MPV 9.2, Immature Gran % (Auto) 0.500, Neut % (Auto) 87.1 H, Lymph % (Auto) 7.2 L, [place] % (Auto) 3.6, Eos % (Auto) 1.4, Baso % (Auto) 0.2, Absolute Neuts (auto) 14.0 H, Absolute Lymphs (auto) 1.16, Total Counted Not Reportable 01/05/18 06:49: POC Glucose 182 H Current Medications Acetaminophen (Tylenol) 650 mg PO Q6H PRN PRN PRN Reason: Mild Pain (scale 0-3)/T>100.7 Albuterol Sulfate (Ventolin Aerosols) 2.5 mg INHALATION Q2H PRN PRN PRN Reason: Shortness of breath, wheezing Albuterol/Ipratropium (Duoneb) 3 ml INHALATION Q4H.RT [facility] Last Admin: 01/05/18 11:11 Dose: 3 ml Atorvastatin Calcium (Lipitor) 10 mg PO QHS [facility] Last Admin: 01/04/18 22:44 Dose: 10 mg Escitalopram Oxalate (Lexapro) 10 mg PO DAILY [facility] Last Admin: 01/05/18 08:28 Dose: 10 mg Ferrous Sulfate (Ferrous Sulfate) 325 mg PO TIDCM [facility] Last Admin: 01/05/18 08:28 Dose: 325 mg Fluticasone Propionate (Flonase Nasal [place]) 1 spray NASAL BID [facility] Last Admin: 01/05/18 08:28 Dose: Not Given Furosemide 500 mg/ N/A 50 mls @ 1 mls/hr CONT INF .Q50H [facility] Last Admin: 01/04/18 17:30 Dose: 1 mls/hr Insulin Human Lispro (Humalog Kwikpen (Bkc)) 0 unit SQ ACHS [facility]; Protocol Last Admin: 01/05/18 08:26 Dose: 3 u Lisinopril (Zestril) 2.5 mg PO DAILY [facility] Last Admin: 01/04/18 17:30 Dose: 2.5 mg Magnesium Hydroxide (Milk Of Magnesia) 30 ml PO DAILY PRN PRN Reason: Constipation Metoprolol Tartrate (Lopressor (Beta Jeffery)) 50 mg PO BID [facility] Last Admin: 01/05/18 08:28 Dose: 50 mg Ondansetron HCl (Zofran) 4 mg IV Q8H PRN PRN PRN Reason: Nausea Last Admin: 01/03/18 12:51 Dose: 4 mg Pantoprazole Sodium (Protonix) 40 mg PO BID [facility] Sodium Chloride () 5 - 30 ml IV UD PRN PRN Reason: SALINE FLUSH Last Admin: 01/04/18 13:29 Dose: 10 ml Trazodone HCl (Desyrel) 100 mg PO QHS PRN PRN PRN Reason: SLEEP Last Admin: 01/04/18 22:44 Dose: 100 mg Medical Necessity - Tobacco Use Smoking Status: Former smoker Tobacco Use: Cigarettes Assessment/Plan All Active Problems (Last Updated 01/02/18 @ 17:11 by David Montana MD) Diastolic CHF, acute on chronic (Acute) CVA (cerebral vascular accident) (Resolved) CVA (cerebral vascular accident) (Resolved) History of GI bleeding (Resolved) This is a pleasant 67 years old female patient 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 1. Acute on chronic hypoxic respiratory failure, improved, currently on her home 6 L of oxygen, secondary to acute on chronic diastolic CHF, acute on chronic anemia: initially, patient did not had good free water clearance Lasix 60 mg every 8 hourly. Started on IV Lasix drip. Patient lost about 3 pounds. Add low-dose lisinopril for afterload reduction. Continue treatment, wean off oxygen, encourage incentive spirometer. 2. Acute on chronic diastolic CHF on Lasix IV drip, rest as mentioned above: continue with strict I's and O's. 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 Sinus rhythm. Echo in May 2017 reported as EF 60% with normal systolic function. Mild concentric LVH. No regional wall motion abnormality. Normal RV size systolic function. LA moderately enlarged. Moderate TR, RVSP 60 mmHg. Moderately severe aortic stenosis, mean AV gradient 34 mmHg severe focal aortic valve calcification. Discussed with the splitting machine operator, Dr. Xavier. Agree with the plan of Lasix drip. 3. Acute on chronic anemia, history of AVMs, chronic anemia, iron deficient. Patient had total of 2 unit of PRBC transfusion on 01/03 and 01/04. Hemoglobin from 7- 8.7 4. Indeterminate troponin second to demand ischemia, continue to monitor 5. Aortic stenosis, moderately severe: Maintain fluid balance. 6. Severe COPD, with chronic respiratory failure, will continue on breathing treatment, aggressive pulmonary toileting. 7. Hypertension, stable, on metoprolol, continue to monitor vitals. 8. Type 2 diabetes mellitus, sugars are fairly uncontrolled, metformin withheld, will continue on ADA diet, Accu-Cheks, increase insulin sliding scale to high- dose 9. morbid obesity, BMI 46, diet and exercise is recommended 10. DVT prophylaxis -SCDs. Laboratory Results 01/02/18 16:40: Crossmatch See Detail 01/02/18 16:40: Crossmatch See Detail 01/04/18 16:38: Sodium 137, Potassium 4.4, Chloride 86 L, Carbon Dioxide > 45.0 H*, Anion Gap TNP, BUN 25 H, Creatinine 0.90, Estim Creat Clear Calc 48.80, Est GFR (MDRD) Af Amer 80, Est GFR (MDRD) Non-Af 66, BUN/Creatinine Ratio 27.9 H, Glucose 160 H, Calcium 8.5 01/04/18 16:42: POC Glucose 180 H 01/04/18 22:35: POC Glucose 164 H 01/05/18 06:40: Sodium 138, Potassium 4.2, Chloride 86 L, Carbon Dioxide 45.0 H, Anion Gap 7, BUN 27 H, Creatinine 0.94, Estim Creat Clear Calc 46.72, Est GFR (MDRD) Af Amer 75, Est GFR (MDRD) Non-Af 62, BUN/Creatinine Ratio 28.6 H, Glucose 178 H, Calcium 8.5 01/05/18 06:40: WBC 16.1 H, RBC 3.21 L, Hgb 8.7 L, Hct 31.2 L, MCV 97.2, MCH 27.1, MCHC 27.9 L, RDW 16.5 H, RDW Differential 58.2 H, Plt Count 440, MPV 9.2, Immature Gran % (Auto) 0.500, Neut % (Auto) 87.1 H, Lymph % (Auto) 7.2 L, [place] % (Auto) 3.6, Eos % (Auto) 1.4, Baso % (Auto) 0.2, Absolute Neuts (auto) 14.0 H, Absolute Lymphs (auto) 1.16, Total Counted Not Reportable 01/05/18 06:49: POC Glucose 182 H 01/05/18 12:04: POC Glucose 178 H Clinical Impression(s) from Imaging Studies Chest X-Ray 01/02/18 15:13 IMPRESSION: Mild perihilar interstitial and vascular prominence in the lungs may be related to technique. Differential considerations include mild CHF, or mild pneumonitis. There is no focal infiltrate and no visible effusion. Active Medications Acetaminophen (Tylenol) 650 mg PO Q6H PRN PRN PRN Reason: Mild Pain (scale 0-3)/T>100.7 Albuterol Sulfate (Ventolin Aerosols) 2.5 mg INHALATION Q2H PRN PRN PRN Reason: Shortness of breath, wheezing Albuterol/Ipratropium (Duoneb) 3 ml INHALATION Q4H.RT [facility] Last Admin: 01/05/18 11:11 Dose: 3 ml Atorvastatin Calcium (Lipitor) 10 mg PO QHS [facility] Last Admin: 01/04/18 22:44 Dose: 10 mg Escitalopram Oxalate (Lexapro) 10 mg PO DAILY [facility] Last Admin: 01/05/18 08:28 Dose: 10 mg Ferrous Sulfate (Ferrous Sulfate) 325 mg PO TIDCM [facility] Last Admin: 01/05/18 12:24 Dose: 325 mg Fluticasone Propionate (Flonase Nasal [place]) 1 spray NASAL BID [facility] Last Admin: 01/05/18 08:28 Dose: Not Given Furosemide 500 mg/ N/A 50 mls @ 1 mls/hr CONT INF .Q50H [facility] Last Admin: 01/04/18 17:30 Dose: 1 mls/hr Insulin Human Lispro (Humalog Kwikpen (Bkc)) 0 unit SQ ACHS [facility]; Protocol Last Admin: 01/05/18 12:24 Dose: 3 u Lisinopril (Zestril) 2.5 mg PO DAILY [facility] Last Admin: 01/05/18 12:23 Dose: 2.5 mg Magnesium Hydroxide (Milk Of Magnesia) 30 ml PO DAILY PRN PRN Reason: Constipation Metoprolol Tartrate (Lopressor (Beta Jeffery)) 50 mg PO BID [facility] Last Admin: 01/05/18 08:28 Dose: 50 mg Ondansetron HCl (Zofran) 4 mg IV Q8H PRN PRN PRN Reason: Nausea Last Admin: 01/03/18 12:51 Dose: 4 mg Pantoprazole Sodium (Protonix) 40 mg PO BID [facility] Last Admin: 01/05/18 12:23 Dose: 40 mg Sodium Chloride () 5 - 30 ml IV UD PRN PRN Reason: SALINE FLUSH Last Admin: 01/04/18 13:29 Dose: 10 ml Trazodone HCl (Desyrel) 100 mg PO QHS PRN PRN PRN Reason: SLEEP Last Admin: 01/04/18 22:44 Dose: 100 mg Code Visit Inpatient E&M: [id number] [facility] Hosp L3
[2018-01-05] MEDS: Pantoprazole Sodium 40 MG Tablet PO ×2 (12:23→22:17)
[2018-01-05] MEDS: Lisinopril 2.5 MG Tablet PO (12:23)
[2018-01-05 13:01] LABS: Bedside Glucose 178 mg/dL (70-110)
[2018-01-05 17:01] LABS: Bedside Glucose 141 mg/dL (70-110)
[2018-01-05] MEDS: Magnesium Hydroxide 30 ML UDC PO (18:09)
[2018-01-05] MEDS: Atorvastatin Calcium 10 MG Tablet PO (22:17)
[2018-01-05] MEDS: traZODone 100 MG Tablet PO (22:17)
[2018-01-05] MEDS: Furosemide 500 MG in Empty Viaflex 50 mL 1 EACH CONT INF (22:46)
[2018-01-05 23:25] LABS: Bedside Glucose 258 mg/dL (70-110)
[2018-01-06] VITALS (19 sets, daily range): BP systolic 96–136; BP diastolic 45–60; PULSE 73–101; RESP 16–20; TEMP 36.4–37.1; O2SAT 90–98
[2018-01-06 06:14] LABS: Absolute Lymphocyte Count 0.63 X10^3/ul (0.83-4.51); Absolute Neutrophil Count 9.5 X10^3/uL (2.0-7.7); Basophil# 0.03 X10^3/uL; Basophil% 0.3 % (0-1); Eosinophil# 0.21 X10^3/uL; Eosinophils% 1.8 % (0-5); Hematocrit 30.5 % (37-47); Hemoglobin 8.2 g/dl (12.0-15.0); Lymphocyte # 0.63 X10^3/ul (4.0); Lymphocyte % 5.5 % (19-41); Mean Corp Hgb Conc 26.9 g/gl (32-36); Mean Corpuscular Hgb 26.9 pg (27.0-32.0); Mean Platelet Vol. 9.6 fl (6.2-12.0); Monocyte# 0.89 X10^3/uL; Monocyte% 7.8 % (0-10); Neutrophil # 9.53 X10^3/uL (2.7-7.7); Neutrophil % 83.8 % (47-70); Platelet Count 416 K/mm3 (150-450); RBC Distribution Width CV 16.3 % (11.6-14.6); RBC Distribution Width SD 56.1 fl (35.1-43.9); Red Blood Count 3.05 M/mm3 (4.2-5.4); White Blood Count 11.4 K/mm3 (4.4-11.0)
[2018-01-06 06:20] LABS: POSITIVE COUNT NO; POSITIVE DIFFERENTIAL NO; POSITIVE MORPHOLOGY NO
[2018-01-06 06:42] LABS: BUN 31 mg/dL (7-18); BUN/Creat Ratio 29.8 RATIO (10-20); Calcium,Total 8.4 mg/dL (8.5-10.1); Carbon Dioxide > 45.0 mmol/L (21.0-32.0); Chloride 88 mmol/L (98-107); Creatinine, Serum 1.04 mg/dL (0.55-1.02); EST Glomerular Filtration Rate 56 mL/min (>60); Est Glom Filt Rate - Afr Amer 68 mL/min (>60); Estimated Creatinine Clearance 42.23 ml/min; Glucose 164 mg/dL (74-106); Potassium 3.8 mmol/L (3.5-5.1); Sodium Level 137 mmol/L (136-145)
[2018-01-06 07:06] LABS: Bedside Glucose 165 mg/dL (70-110)
[2018-01-06] MEDS: Ipratropium/Albuterol Sulfate 3 ML AMPUL.NEB INHALATION ×5 (07:11→22:47)
--- NOTE | 2018-01-06 08:00 | PCM.PN.HOSP ---
Patient Problems: Active and Suspected Problems (Last Updated 01/02/18 @ 17:11 by David Montana MD) Diastolic CHF, acute on chronic (Acute) Subjective: Overall, patient feels better in respect of breathing. Heart rate in 70s. No fever. Blood pressure mostly 110s-130s. On IV Lasix drip. Patient had not much change in weight since yesterday although she overall lost about 5 pounds since admission Vitals/I&O's: Vital Signs Temp Pulse Resp BP Pulse Ox 98.7 F 80 18 109/48 L 94 01/06/18 03:38 01/06/18 07:00 01/06/18 03:38 01/06/18 03:38 01/06/18 03:38 Oxygen Flow Rate (L/min) 5 Oxygen Delivery Method Nasal Cannula Weight: 254 lb 3.088 oz Body Mass Index (BMI) 45.4 Intake and Output for Last 24 Hours 01/04/18 01/05/18 01/06/18 23:59 23:59 23:59 Intake Total 1105.1 / 1105.1 1177.9 / 1177.9 132 / 132 Output Total 2049 / 2049 1350 / 1350 900 / 900 Balance -944.9 / -944.9 -172.1 / -172.1 -768 / -768 General: Alert, Oriented x3, Cooperative HEENT: Atraumatic, PERRLA, EOMI, Normocephalic Neck: Supple, No JVD, Negative Carotid Bruits Lungs: Diminished, Rales, - - No tachypnea. On 5 L of oxygen Cardiovascular: Regular rate, Normal S1, Normal S2, Murmur - Systolic murmur, moderately severe and MR Abdomen: Bowel Sounds Present, Soft, Non Tender, Non-Distended Extremities: Capillary Refill Less than 3 Seconds, Edema Skin: No rashes, No breakdown Musculoskeletal: No Tenderness to Palpation of Joints or Extremities, Arthritic Changes Neurological: Cranial nerves II-XII grossly intact Psych/Mental Status: Normal Affect, Appropriate Laboratory Results 01/05/18 12:04: POC Glucose 178 H 01/05/18 16:36: POC Glucose 141 H 01/05/18 22:11: POC Glucose 258 H 01/06/18 05:25: WBC 11.4 H, RBC 3.05 L, Hgb 8.2 L, Hct 30.5 L, MCV 100.0 H, MCH 26.9 L, MCHC 26.9 L, RDW 16.3 H, RDW Differential 56.1 H, Plt Count 416, MPV 9.6, Immature Gran % (Auto) 0.800, Neut % (Auto) 83.8 H, Lymph % (Auto) 5.5 L, [place] % (Auto) 7.8, Eos % (Auto) 1.8, Baso % (Auto) 0.3, Absolute Neuts (auto) 9.5 H, Absolute Lymphs (auto) 0.63 L, Total Counted Not Reportable 01/06/18 05:25: Sodium 137, Potassium 3.8, Chloride 88 L, Carbon Dioxide > 45.0 H*, Anion Gap TNP, BUN 31 H, Creatinine 1.04 H, Estim Creat Clear Calc 42.23, Est GFR (MDRD) Af Amer 68, Est GFR (MDRD) Non-Af 56 L, BUN/Creatinine Ratio 29.8 H, Glucose 164 H, Calcium 8.4 L 01/06/18 07:00: POC Glucose 165 H Current Medications Acetaminophen (Tylenol) 650 mg PO Q6H PRN PRN PRN Reason: Mild Pain (scale 0-3)/T>100.7 Albuterol Sulfate (Ventolin Aerosols) 2.5 mg INHALATION Q2H PRN PRN PRN Reason: Shortness of breath, wheezing Albuterol/Ipratropium (Duoneb) 3 ml INHALATION Q4H.RT [facility] Last Admin: 01/06/18 07:11 Dose: 3 ml Atorvastatin Calcium (Lipitor) 10 mg PO QHS [facility] Last Admin: 01/05/18 22:17 Dose: 10 mg Escitalopram Oxalate (Lexapro) 10 mg PO DAILY [facility] Last Admin: 01/05/18 08:28 Dose: 10 mg Ferrous Sulfate (Ferrous Sulfate) 325 mg PO TIDCM [facility] Last Admin: 01/05/18 16:39 Dose: 325 mg Fluticasone Propionate (Flonase Nasal [place]) 1 spray NASAL BID [facility] Last Admin: 01/05/18 22:18 Dose: Not Given Furosemide 500 mg/ N/A 50 mls @ 1 mls/hr CONT INF .Q50H [facility] Last Admin: 01/05/18 22:46 Dose: 1 mls/hr Insulin Human Lispro (Humalog Kwikpen (Bkc)) 0 unit SQ ACHS [facility]; Protocol Last Admin: 01/05/18 22:17 Dose: 6 u Lisinopril (Zestril) 2.5 mg PO DAILY [facility] Last Admin: 01/05/18 12:23 Dose: 2.5 mg Magnesium Hydroxide (Milk Of Magnesia) 30 ml PO DAILY PRN PRN Reason: Constipation Last Admin: 01/05/18 18:09 Dose: 30 ml Metoprolol Tartrate (Lopressor (Beta Jeffery)) 50 mg PO BID [facility] Last Admin: 01/05/18 22:17 Dose: 50 mg Ondansetron HCl (Zofran) 4 mg IV Q8H PRN PRN PRN Reason: Nausea Last Admin: 01/03/18 12:51 Dose: 4 mg Pantoprazole Sodium (Protonix) 40 mg PO BID [facility] Last Admin: 01/05/18 22:17 Dose: 40 mg Sodium Chloride () 5 - 30 ml IV UD PRN PRN Reason: SALINE FLUSH Last Admin: 01/04/18 13:29 Dose: 10 ml Trazodone HCl (Desyrel) 100 mg PO QHS PRN PRN PRN Reason: SLEEP Last Admin: 01/05/18 22:17 Dose: 100 mg Medical Necessity - Tobacco Use Smoking Status: Former smoker Tobacco Use: Cigarettes Assessment/Plan All Active Problems (Last Updated 01/02/18 @ 17:11 by David Montana MD) Diastolic CHF, acute on chronic (Acute) CVA (cerebral vascular accident) (Resolved) CVA (cerebral vascular accident) (Resolved) History of GI bleeding (Resolved) This is a pleasant 67 years old 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 1. Acute on chronic hypoxic respiratory failure, improved, currently on her home 6 L of oxygen, secondary to acute on chronic diastolic CHF, acute on chronic anemia: initially, patient did not had good free water clearance Lasix 60 mg every 8 hourly. Started on IV Lasix drip. Patient lost about 3 pounds. Add low-dose lisinopril for afterload reduction. Continue treatment, wean off oxygen, encourage incentive spirometer. 2. Acute on chronic diastolic CHF on Lasix IV drip, rest as mentioned above: continue with strict I's and O's. 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 Sinus rhythm. Echo in May 2017 reported as EF 60% with normal systolic function. Mild concentric LVH. No regional wall motion abnormality. Normal RV size systolic function. LA moderately enlarged. Moderate TR, RVSP 60 mmHg. Moderately severe aortic stenosis, mean AV gradient 34 mmHg severe focal aortic valve calcification. Discussed with the reactor operator, Dr. Xavier. Agree with the plan of Lasix drip. 3. Acute on chronic anemia, history of AVMs, chronic anemia, iron deficient. Patient had total of 2 unit of PRBC transfusion on 01/03 and 01/04. Hemoglobin from 7- 8.7, 8.2 4. Indeterminate troponin second to demand ischemia, continue to monitor 5. Aortic stenosis, moderately severe: Maintain fluid balance. 6. Severe COPD, with chronic respiratory failure, will continue on breathing treatment, aggressive pulmonary toileting. 7. Hypertension, stable, on metoprolol, continue to monitor vitals. 8. Type 2 diabetes mellitus, sugars are fairly uncontrolled, metformin withheld, will continue on ADA diet, Accu-Cheks, increase insulin sliding scale to high-dose 9. morbid obesity, BMI 46, diet and exercise is recommended 10. DVT prophylaxis -SCDs. Laboratory Results 01/02/18 16:40: Crossmatch See Detail 01/02/18 16:40: Crossmatch See Detail 01/04/18 16:38: Sodium 137, Potassium 4.4, Chloride 86 L, Carbon Dioxide > 45.0 H*, Anion Gap TNP, BUN 25 H, Creatinine 0.90, Estim Creat Clear Calc 48.80, Est GFR (MDRD) Af Amer 80, Est GFR (MDRD) Non-Af 66, BUN/Creatinine Ratio 27.9 H, Glucose 160 H, Calcium 8.5 01/04/18 16:42: POC Glucose 180 H 01/04/18 22:35: POC Glucose 164 H 01/05/18 06:40: Sodium 138, Potassium 4.2, Chloride 86 L, Carbon Dioxide 45.0 H, Anion Gap 7, BUN 27 H, Creatinine 0.94, Estim Creat Clear Calc 46.72, Est GFR (MDRD) Af Amer 75, Est GFR (MDRD) Non-Af 62, BUN/Creatinine Ratio 28.6 H, Glucose 178 H, Calcium 8.5 01/05/18 06:40: WBC 16.1 H, RBC 3.21 L, Hgb 8.7 L, Hct 31.2 L, MCV 97.2, MCH 27.1, MCHC 27.9 L, RDW 16.5 H, RDW Differential 58.2 H, Plt Count 440, MPV 9.2, Immature Gran % (Auto) 0.500, Neut % (Auto) 87.1 H, Lymph % (Auto) 7.2 L, [place] % (Auto) 3.6, Eos % (Auto) 1.4, Baso % (Auto) 0.2, Absolute Neuts (auto) 14.0 H, Absolute Lymphs (auto) 1.16, Total Counted Not Reportable 01/05/18 06:49: POC Glucose 182 H 01/05/18 12:04: POC Glucose 178 H Clinical Impression(s) from Imaging Studies Chest X-Ray 01/02/18 15:13 IMPRESSION: Mild perihilar interstitial and vascular prominence in the lungs may be related to technique. Differential considerations include mild CHF, or mild pneumonitis. There is no focal infiltrate and no visible effusion. Active Medications Acetaminophen (Tylenol) 650 mg PO Q6H PRN PRN PRN Reason: Mild Pain (scale 0-3)/T>100.7 Albuterol Sulfate (Ventolin Aerosols) 2.5 mg INHALATION Q2H PRN PRN PRN Reason: Shortness of breath, wheezing Albuterol/Ipratropium (Duoneb) 3 ml INHALATION Q4H.RT [facility] Last Admin: 01/05/18 11:11 Dose: 3 ml Atorvastatin Calcium (Lipitor) 10 mg PO QHS [facility] Last Admin: 01/04/18 22:44 Dose: 10 mg Escitalopram Oxalate (Lexapro) 10 mg PO DAILY [facility] Last Admin: 01/05/18 08:28 Dose: 10 mg Ferrous Sulfate (Ferrous Sulfate) 325 mg PO TIDCM [facility] Last Admin: 01/05/18 12:24 Dose: 325 mg Fluticasone Propionate (Flonase Nasal [place]) 1 spray NASAL BID [facility] Last Admin: 01/05/18 08:28 Dose: Not Given Furosemide 500 mg/ N/A 50 mls @ 1 mls/hr CONT INF .Q50H [facility] Last Admin: 01/04/18 17:30 Dose: 1 mls/hr Insulin Human Lispro (Humalog Kwikpen (Bkc)) 0 unit SQ ACHS [facility]; Protocol Last Admin: 01/05/18 12:24 Dose: 3 u Lisinopril (Zestril) 2.5 mg PO DAILY [facility] Last Admin: 01/05/18 12:23 Dose: 2.5 mg Magnesium Hydroxide (Milk Of Magnesia) 30 ml PO DAILY PRN PRN Reason: Constipation Metoprolol Tartrate (Lopressor (Beta Jeffery)) 50 mg PO BID [facility] Last Admin: 01/05/18 08:28 Dose: 50 mg Ondansetron HCl (Zofran) 4 mg IV Q8H PRN PRN PRN Reason: Nausea Last Admin: 01/03/18 12:51 Dose: 4 mg Pantoprazole Sodium (Protonix) 40 mg PO BID [facility] Last Admin: 01/05/18 12:23 Dose: 40 mg Sodium Chloride () 5 - 30 ml IV UD PRN PRN Reason: SALINE FLUSH Last Admin: 01/04/18 13:29 Dose: 10 ml Trazodone HCl (Desyrel) 100 mg PO QHS PRN PRN PRN Reason: SLEEP Last Admin: 01/04/18 22:44 Dose: 100 mg Code Visit Inpatient E&M: [id number] [facility] Hosp L3
[2018-01-06] MEDS: Insulin Lispro 100 UNIT/ML INSULN.PEN SQ ×4 (08:07→22:24)
[2018-01-06] MEDS: Ferrous Sulfate 325 MG Tablet PO ×3 (08:08→16:07)
[2018-01-06] MEDS: Metoprolol Tartrate 50 MG Tablet PO ×2 (09:58→22:26)
[2018-01-06] MEDS: Pantoprazole Sodium 40 MG Tablet PO ×2 (09:58→22:28)
[2018-01-06] MEDS: Lisinopril 2.5 MG Tablet PO (09:58)
[2018-01-06] MEDS: Escitalopram Oxalate 10 MG Tablet PO (09:58)
[2018-01-06 11:16] LABS: Bedside Glucose 183 mg/dL (70-110)
[2018-01-06 16:16] LABS: Bedside Glucose 180 mg/dL (70-110)
--- NOTE | 2018-01-06 18:13 | PN.CARD_ITS ---
Subjectve: The patient appears to have been resting comfortably. She voices no new acute complaints or concerns. Objective: Vital Signs Temp Pulse Resp BP Pulse Ox 97.5 F L 78 18 96/55 L 95 01/06/18 16:10 01/06/18 16:10 01/06/18 16:10 01/06/18 16:10 01/06/18 16:10 Oxygen Flow Rate (L/min) 5 Oxygen Delivery Method Nasal Cannula Weight: 254 lb 3.088 oz Body Mass Index (BMI) 45.4 Intake and Output for Last 24 Hours 01/04/18 01/05/18 01/06/18 23:59 23:59 23:59 Intake Total 1105.1 / 1105.1 1177.9 / 1177.9 378.2 / 378.2 Output Total 2049 / 2049 1350 / 1350 1250 / 1250 Balance -944.9 / -944.9 -172.1 / -172.1 -871.8 / -871.8 General: Awake, Alert, Oriented x 3, Cooperative, No Acute Distress, Obese HEENT: Atraumatic, Normocephalic, PERRL, EOMI, Sclera Non Icteric Oral: Moist Mucosa Neck: Supple, Good ROM, No JVD Lungs: - - Diffusely diminished breath sounds Cardiovascular: Regular Rhythm, Normal S1, Normal S2 Abdomen: Bowel Sounds Present, Soft, Non Tender, Obese Extremities: Severe RLE Edema, Severe LLE Edema 01/06/18 05:25: WBC 11.4 H, RBC 3.05 L, Hgb 8.2 L, Hct 30.5 L, MCV 100.0 H, MCH 26.9 L, MCHC 26.9 L, RDW 16.3 H, RDW Differential 56.1 H, Plt Count 416, MPV 9.6, Immature Gran % (Auto) 0.800, Neut % (Auto) 83.8 H, Lymph % (Auto) 5.5 L, [place] % (Auto) 7.8, Eos % (Auto) 1.8, Baso % (Auto) 0.3, Absolute Neuts (auto) 9.5 H, Total Counted Not Reportable 01/06/18 05:25: Sodium 137, Potassium 3.8, Chloride 88 L, Carbon Dioxide > 45.0 H*, Anion Gap TNP, BUN 31 H, Creatinine 1.04 H, Est GFR (MDRD) Af Amer 68, Est GFR (MDRD) Non-Af 56 L, BUN/Creatinine Ratio 29.8 H, Glucose 164 H, Calcium 8.4 L Rhythm: Sinus rhythm Medical Necessity - Tobacco Use Smoking Status: Former smoker Tobacco Use: Cigarettes Assessment/Plan 1. Acute on chronic diastolic mediated CHF At the present time patient presents with findings compatible with acute on chronic diastolic mediated CHF. At the present time she will continue infusion IV furosemide/Lasix. Hopefully her diuresis will improve and it will improve her underlying pulmonary process as well as her peripheral pitting edema. She will continue oxygen support. 2. Aortic valve stenosis She does have a history of aortic valve stenosis. There is somewhat of a discrepancy between her transthoracic echocardiogram and her diagnostic cardiac catheterization. He has been evaluated at the [facility] [place] for her aortic valve stenosis for consideration for TAVR thus far they have not proceeded with this procedure. A follow-up transthoracic echocardiogram was performed. Her aortic valve, is not well visualized, however, spectral Doppler suggest moderately severe aortic valve stenosis. 3. Pulmonary hypertension This may be secondary to not only her cardiovascular disease but her pulmonary disease with her COPD, etc. This can lead to cor pulmonale and right heart failure. He will need continued pulmonary support and medical therapy which does include her diuretic therapy. The follow-up echocardiogram, secondary to being a technically diminished quality study, was unable to estimate the RV systolic pressure/right sided pressures. 4. Hyperlipidemia She will continue lipid-lowering therapy as deemed appropriate. 5. Hypertension She will continue antihypertensive therapy with adjustment as needed. 6. Diabetes mellitus She will continue under the care of internal medicine. 7. COPD She does have a history of COPD. She will need continue pulmonary evaluation care. She is on O2 therapy. 8. Anemia Her H/H is improved s/p additional PRBCs. Hopefully this will assist her O2 carrying capacity. This note was generated with [employer] dictation software. It may contain incorrect words, spelling, and punctuation that were not noted in checking the note before signing.
[2018-01-06] MEDS: Fluticasone 0.05% 1 SPRAY NASAL.SRY NASAL (22:24)
[2018-01-06] MEDS: Atorvastatin Calcium 10 MG Tablet PO (22:26)
[2018-01-06] MEDS: Acetaminophen 325 MG Tablet 650 MG PO (22:33)
[2018-01-07] VITALS (17 sets, daily range): BP systolic 101–126; BP diastolic 41–62; PULSE 67–104; RESP 18–21; TEMP 36.6–36.9; O2SAT 92–94
[2018-01-07 00:05] LABS: Bedside Glucose 209 mg/dL (70-110)
--- NOTE | 2018-01-07 05:55 | RAD_ITS ---
STUDY: X-RAY CHEST REASON FOR EXAM: Female, 67 years old. Acute respiratory failure. TECHNIQUE: PA and lateral views of the chest. COMPARISON: Comparison is made with prior study dated January 02, 2018. FINDINGS: EKG electrodes are seen. Vascular congestion with increased interstitial markings worse in the liver is somewhat of the left upper lobe. This may represent early CHF. Follow-up is recommended. There is no demonstrated pleural abnormality. There is borderline cardiomegaly. Normal mediastinum and deepthi. Normal visualized pulmonary arteries. There is atherosclerotic calcification of the aortic arch with tortuosity. There are diffuse degenerative changes of the visualized thoracic spine. Normal visualized ribs, clavicles, and shoulders. There is no demonstrated abnormality of the visualized soft tissue structures of the upper abdomen. RAD/Chest PA and Lateral IMPRESSION: Findings suggestive of a mild degree of CHF. Electronically Signed: Jonah Conner MD at 12:02 EDT Tel [phone], Service support ,
[2018-01-07] MEDS: 0.9% NaCl Peripheral Flush Adult/Peds IV ×3 (06:49→18:40)
[2018-01-07 06:56] LABS: Bedside Glucose 172 mg/dL (70-110)
[2018-01-07] MEDS: Ipratropium/Albuterol Sulfate 3 ML AMPUL.NEB INHALATION ×5 (06:59→22:39)
[2018-01-07 07:07] LABS: Absolute Lymphocyte Count 0.96 X10^3/ul (0.83-4.51); Absolute Neutrophil Count 9.8 X10^3/uL (2.0-7.7); Basophil# 0.03 X10^3/uL; Basophil% 0.3 % (0-1); Eosinophil# 0.19 X10^3/uL; Eosinophils% 1.6 % (0-5); Hemoglobin 8.5 g/dl (12.0-15.0); Lymphocyte # 0.96 X10^3/ul (4.0); Lymphocyte % 8.3 % (19-41); Mean Corp Hgb Conc 27.4 g/gl (32-36); Mean Corpuscular Volume 98.4 fL (81-99); Mean Platelet Vol. 9.7 fl (6.2-12.0); Monocyte# 0.58 X10^3/uL; Neutrophil # 9.81 X10^3/uL (2.7-7.7); Neutrophil % 84.4 % (47-70); Platelet Count 406 K/mm3 (150-450); RBC Distribution Width CV 16.7 % (11.6-14.6); Red Blood Count 3.15 M/mm3 (4.2-5.4); White Blood Count 11.6 K/mm3 (4.4-11.0)
[2018-01-07 07:08] LABS: POSITIVE COUNT NO; POSITIVE DIFFERENTIAL NO; POSITIVE MORPHOLOGY NO
[2018-01-07 07:15] LABS: Anion Gap 6 (5-15); BUN 41 mg/dL (7-18); BUN/Creat Ratio 34.7 RATIO (10-20); Calcium,Total 8.6 mg/dL (8.5-10.1); Chloride 89 mmol/L (98-107); Creatinine, Serum 1.18 mg/dL (0.55-1.02); EST Glomerular Filtration Rate 48 mL/min (>60); Est Glom Filt Rate - Afr Amer 58 mL/min (>60); Estimated Creatinine Clearance 37.22 ml/min; Glucose 157 mg/dL (74-106); Potassium 4.1 mmol/L (3.5-5.1); Sodium Level 138 mmol/L (136-145)
[2018-01-07] MEDS: Ferrous Sulfate 325 MG Tablet PO ×3 (08:18→16:36)
[2018-01-07] MEDS: Insulin Lispro 100 UNIT/ML INSULN.PEN SQ ×4 (08:18→21:02)
[2018-01-07] MEDS: Escitalopram Oxalate 10 MG Tablet PO (10:27)
[2018-01-07] MEDS: Fluticasone 0.05% 1 SPRAY NASAL.SRY NASAL ×2 (10:27→21:01)
[2018-01-07] MEDS: Lisinopril 2.5 MG Tablet PO (10:27)
[2018-01-07] MEDS: Pantoprazole Sodium 40 MG Tablet PO ×2 (10:27→21:07)
[2018-01-07] MEDS: Metoprolol Tartrate 50 MG Tablet PO ×2 (10:45→21:05)
[2018-01-07 11:50] LABS: Bedside Glucose 212 mg/dL (70-110)
[2018-01-07] MEDS: Sodium Chloride 0.65% 1 SPRAY SPRAY.BTL 2 SPRAY NASAL ×2 (12:37→21:04)
--- NOTE | 2018-01-07 15:12 | CHAPLAIN ---
Type of Pastoral Visit ___ Initial Visit _x__ Follow-up Visit ___ On-call Visit ___ General Patient Visit ___ Spiritual Assessment ___ Family Conference ___ Bereavement ___ Rapid Response ___ Code Blue ___ Other (describe below) Pastoral Care Referral From _x__ Patient ___ Family ___ Nurse ___ Physician ___ Cementer Machine Applicator ___ Furniture Assembly Supervisor ___ Other (describe below) Sacrament/Intervention _x__ Active listening ___ Anointing ___ Baptist ___ Bereavement ___ Communion ___ Sandra exploration ___ ___ Life review _x__ Prayer ___ Reconciliation ___ Sacrament of Sick ___ Supportive presence ___ Wedding ___ Other (describe below) Pastoral Comments
--- NOTE | 2018-01-07 16:48 | PCM.PN.HOSP ---
Patient Problems: Active and Suspected Problems (Last Updated 01/02/18 @ 17:11 by David Montana MD) Diastolic CHF, acute on chronic (Acute) Subjective: The patient complain of thick mucus is stuck in the left deep nasal cavity or up in the nasopharynx and feels uncomfortable and not able to breathe. Otherwise, shortness of breath is better. Heart rate is controlled. Still on Lasix drip. About 1650 mL urine output yesterday. No significant weight loss as compared to yesterday Vitals/I&O's: Vital Signs Temp Pulse Resp BP Pulse Ox 97.9 F 82 18 106/44 L 94 01/07/18 16:34 01/07/18 16:34 01/07/18 16:34 01/07/18 16:34 01/07/18 16:34 Oxygen Flow Rate (L/min) 5 Oxygen Delivery Method Nasal Cannula Weight: 255 lb 15.307 oz Body Mass Index (BMI) 45.4 Intake and Output for Last 24 Hours 01/05/18 01/06/18 01/07/18 23:59 23:59 23:59 Intake Total 1177.9 / 1177.9 943.6 / 943.6 377.8 / 377.8 Output Total 1350 / 1350 1650 / 1650 450 / 450 Balance -172.1 / -172.1 -706.4 / -706.4 -72.2 / -72.2 General: Alert, Oriented x3, Cooperative HEENT: Atraumatic, PERRLA, EOMI, Normocephalic Neck: Supple, No JVD, Negative Carotid Bruits Lungs: Diminished - Air entry diminished bilaterally in the lung bases., Rales - Occasional rales bilateral lung bases Cardiovascular: Regular rate, Normal S1, Normal S2, No murmurs, - - PVCs and a small runs of NSVT occasionally Abdomen: Bowel Sounds Present, Soft, Non Tender, Non-Distended Extremities: Capillary Refill Less than 3 Seconds, Edema Skin: No rashes, No breakdown Musculoskeletal: No Tenderness to Palpation of Joints or Extremities, Arthritic Changes, Muscle Wasting Neurological: Cranial nerves II-XII grossly intact, Neuro grossly intact Psych/Mental Status: Normal Affect, Appropriate Microbiology Past 72 Hours 01/06/18 18:10 Stool Stool Occult Blood (TESS) - Final Occult Blood Positive Laboratory Results 01/06/18 22:22: POC Glucose 209 H 01/07/18 06:05: WBC 11.6 H, RBC 3.15 L, Hgb 8.5 L, Hct 31.0 L, MCV 98.4, MCH 27.0, MCHC 27.4 L, RDW 16.7 H, RDW Differential 60.0 H, Plt Count 406, MPV 9.7, Immature Gran % (Auto) 0.400, Neut % (Auto) 84.4 H, Lymph % (Auto) 8.3 L, [place] % (Auto) 5.0, Eos % (Auto) 1.6, Baso % (Auto) 0.3, Absolute Neuts (auto) 9.8 H, Absolute Lymphs (auto) 0.96, Total Counted Not Reportable 01/07/18 06:05: Sodium 138, Potassium 4.1, Chloride 89 L, Carbon Dioxide 43.0 H, Anion Gap 6, BUN 41 H, Creatinine 1.18 H, Estim Creat Clear Calc 37.22, Est GFR (MDRD) Af Amer 58 L, Est GFR (MDRD) Non-Af 48 L, BUN/Creatinine Ratio 34.7 H, Glucose 157 H, Calcium 8.6 01/07/18 06:48: POC Glucose 172 H 01/07/18 11:40: POC Glucose 212 H Current Medications Acetaminophen (Tylenol) 650 mg PO Q6H PRN PRN PRN Reason: Mild Pain (scale 0-3)/T>100.7 Last Admin: 01/06/18 22:33 Dose: 650 mg Albuterol Sulfate (Ventolin Aerosols) 2.5 mg INHALATION Q2H PRN PRN PRN Reason: Shortness of breath, wheezing Albuterol/Ipratropium (Duoneb) 3 ml INHALATION Q4H.RT [facility] Last Admin: 01/07/18 14:10 Dose: 3 ml Atorvastatin Calcium (Lipitor) 10 mg PO QHS RAINER Last Admin: 01/06/18 22:26 Dose: 10 mg Escitalopram Oxalate (Lexapro) 10 mg PO DAILY RAINER Last Admin: 01/07/18 10:27 Dose: 10 mg Ferrous Sulfate (Ferrous Sulfate) 325 mg PO TIDCM [facility] Last Admin: 01/07/18 16:36 Dose: 325 mg Fluticasone Propionate (Flonase Nasal [place]) 1 spray NASAL BID [facility] Last Admin: 01/07/18 10:27 Dose: 1 spray Furosemide 500 mg/ N/A 50 mls @ 1 mls/hr CONT INF .Q50H [facility] Last Admin: 01/06/18 22:26 Dose: Not Given Insulin Human Lispro (Humalog Kwikpen (Bkc)) 0 unit SQ ACHS [facility]; Protocol Last Admin: 01/07/18 16:36 Dose: 3 u Lisinopril (Zestril) 2.5 mg PO DAILY [facility] Last Admin: 01/07/18 10:27 Dose: 2.5 mg Magnesium Hydroxide (Milk Of Magnesia) 30 ml PO DAILY PRN PRN Reason: Constipation Last Admin: 01/05/18 18:09 Dose: 30 ml Metoprolol Tartrate (Lopressor (Beta [place])) 50 mg PO BID [facility] Last Admin: 01/07/18 10:45 Dose: 50 mg Ondansetron HCl (Zofran) 4 mg IV Q8H PRN PRN PRN Reason: Nausea Last Admin: 01/03/18 12:51 Dose: 4 mg Pantoprazole Sodium (Protonix) 40 mg PO BID [facility] Last Admin: 01/07/18 10:27 Dose: 40 mg Sodium Chloride () 5 - 30 ml IV UD PRN PRN Reason: SALINE FLUSH Last Admin: 01/07/18 08:18 Dose: 10 ml Sodium Chloride ([place] Nasal [place]) 2 spray NASAL TID PRN PRN PRN Reason: NASAL DRYNESS Last Admin: 01/07/18 12:37 Dose: 2 spray Trazodone HCl (Desyrel) 100 mg PO QHS PRN PRN PRN Reason: SLEEP Last Admin: 01/05/18 22:17 Dose: 100 mg Medical Necessity - Tobacco Use Smoking Status: Former smoker Tobacco Use: Cigarettes Assessment/Plan All Active Problems (Last Updated 01/02/18 @ 17:11 by David Montana MD) Diastolic CHF, acute on chronic (Acute) CVA (cerebral vascular accident) (Resolved) CVA (cerebral vascular accident) (Resolved) History of GI bleeding (Resolved) This is a pleasant 67 years old female patient 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 1. Acute on chronic hypoxic respiratory failure, improved, currently on her home 6 L of oxygen, secondary to acute on chronic diastolic CHF, acute on chronic anemia: initially, patient did not had good free water clearance Lasix 60 mg every 8 hourly. Started on IV Lasix drip. Initially, lost about 3 pounds no significant change since yesterday. on low-dose lisinopril for afterload reduction. Continue treatment, wean off oxygen, encourage incentive spirometer. 2. Acute on chronic diastolic CHF on Lasix IV drip, rest as mentioned above: continue with strict I's and O's. quality assurance monitor body shows PVCs and short runs of NSVT. Sinus rhythm. Echo in May 2017 reported as EF 60% with normal systolic function. Mild concentric LVH. No regional wall motion abnormality. Normal RV size systolic function. LA moderately enlarged. Moderate TR, RVSP 60 mmHg. Moderately severe aortic stenosis, mean AV gradient 34 mmHg severe focal aortic valve calcification. Discussed with the barrel cutter, Dr. Xavier. Agree with the plan of Lasix drip. 3. Acute on chronic anemia, history of AVMs, chronic anemia, iron deficient. Patient had total of 2 unit of PRBC transfusion on 01/03 and 01/04. Hemoglobin from 7- 8.7, 8.2 4. Indeterminate troponin second to demand ischemia, continue to monitor 5. Aortic stenosis, moderately severe: Maintain fluid balance. 6. Severe COPD, with chronic respiratory failure, with moderate to severe pulmonary hypertension with moderate TR probably from both left side heart failure and COPD: continue on breathing treatment, aggressive pulmonary toileting. 7. Hypertension, stable, on metoprolol, continue to monitor vitals. 8. Type 2 diabetes mellitus, sugars are fairly uncontrolled, metformin withheld, will continue on ADA diet, Accu-Cheks, increase insulin sliding scale to high-dose 9. morbid obesity, BMI 46, diet and exercise is recommended 10. DVT prophylaxis -SCDs. Microbiology Past 72 Hours 01/06/18 18:10 Stool Stool Occult Blood (TESS) - Final Occult Blood Positive Laboratory Results 01/06/18 22:22: POC Glucose 209 H 01/07/18 06:05: WBC 11.6 H, RBC 3.15 L, Hgb 8.5 L, Hct 31.0 L, MCV 98.4, MCH 27.0, MCHC 27.4 L, RDW 16.7 H, RDW Differential 60.0 H, Plt Count 406, MPV 9.7, Immature Gran % (Auto) 0.400, Neut % (Auto) 84.4 H, Lymph % (Auto) 8.3 L, [place] % (Auto) 5.0, Eos % (Auto) 1.6, Baso % (Auto) 0.3, Absolute Neuts (auto) 9.8 H, Absolute Lymphs (auto) 0.96, Total Counted Not Reportable 01/07/18 06:05: Sodium 138, Potassium 4.1, Chloride 89 L, Carbon Dioxide 43.0 H, Anion Gap 6, BUN 41 H, Creatinine 1.18 H, Estim Creat Clear Calc 37.22, Est GFR (MDRD) Af Amer 58 L, Est GFR (MDRD) Non-Af 48 L, BUN/Creatinine Ratio 34.7 H, Glucose 157 H, Calcium 8.6 01/07/18 06:48: POC Glucose 172 H 01/07/18 11:40: POC Glucose 212 H Clinical Impression(s) from Imaging Studies Chest X-Ray 01/02/18 15:13 IMPRESSION: Mild perihilar interstitial and vascular prominence in the lungs may be related to technique. Differential considerations include mild CHF, or mild pneumonitis. There is no focal infiltrate and no visible effusion. Code Visit Inpatient E&M: 24793 Subs Hosp L3
--- NOTE | 2018-01-07 16:53 | PN_ITS ---
Patient Problems: Active and Suspected Problems (Last Updated 01/02/18 @ 17:11 by David Montana MD) Diastolic CHF, acute on chronic (Acute) Subjective: The patient complain of thick mucus is stuck in the left deep nasal cavity or up in the nasopharynx and feels uncomfortable and not able to breathe. Otherwise, shortness of breath is better. Heart rate is controlled. Still on Lasix drip. About 1650 mL urine output yesterday. No significant weight loss as compared to yesterday Vitals/I&O's: Vital Signs Temp Pulse Resp BP Pulse Ox 97.9 F 82 18 106/44 L 94 01/07/18 16:34 01/07/18 16:34 01/07/18 16:34 01/07/18 16:34 01/07/18 16:34 Oxygen Flow Rate (L/min) 5 Oxygen Delivery Method Nasal Cannula Weight: 255 lb 15.307 oz Body Mass Index (BMI) 45.4 Intake and Output for Last 24 Hours 01/05/18 01/06/18 01/07/18 23:59 23:59 23:59 Intake Total 1177.9 / 1177.9 943.6 / 943.6 377.8 / 377.8 Output Total 1350 / 1350 1650 / 1650 450 / 450 Balance -172.1 / -172.1 -706.4 / -706.4 -72.2 / -72.2 General: Alert, Oriented x3, Cooperative HEENT: Atraumatic, PERRLA, EOMI, Normocephalic Neck: Supple, No JVD, Negative Carotid Bruits Lungs: Diminished - Air entry diminished bilaterally in the lung bases., Rales - Occasional rales bilateral lung bases Cardiovascular: Regular rate, Normal S1, Normal S2, No murmurs, - - PVCs and a small runs of NSVT occasionally Abdomen: Bowel Sounds Present, Soft, Non Tender, Non-Distended Extremities: Capillary Refill Less than 3 Seconds, Edema Skin: No rashes, No breakdown Musculoskeletal: No Tenderness to Palpation of Joints or Extremities, Arthritic Changes, Muscle Wasting Neurological: Cranial nerves II-XII grossly intact, Neuro grossly intact Psych/Mental Status: Normal Affect, Appropriate Microbiology Past 72 Hours 01/06/18 18:10 Stool Stool Occult Blood (TESS) - Final Occult Blood Positive Laboratory Results 01/06/18 22:22: POC Glucose 209 H 01/07/18 06:05: WBC 11.6 H, RBC 3.15 L, Hgb 8.5 L, Hct 31.0 L, MCV 98.4, MCH 27.0, MCHC 27.4 L, RDW 16.7 H, RDW Differential 60.0 H, Plt Count 406, MPV 9.7, Immature Gran % (Auto) 0.400, Neut % (Auto) 84.4 H, Lymph % (Auto) 8.3 L, [place] % (Auto) 5.0, Eos % (Auto) 1.6, Baso % (Auto) 0.3, Absolute Neuts (auto) 9.8 H, Absolute Lymphs (auto) 0.96, Total Counted Not Reportable 01/07/18 06:05: Sodium 138, Potassium 4.1, Chloride 89 L, Carbon Dioxide 43.0 H, Anion Gap 6, BUN 41 H, Creatinine 1.18 H, Estim Creat Clear Calc 37.22, Est GFR (MDRD) Af Amer 58 L, Est GFR (MDRD) Non-Af 48 L, BUN/Creatinine Ratio 34.7 H, Glucose 157 H, Calcium 8.6 01/07/18 06:48: POC Glucose 172 H 01/07/18 11:40: POC Glucose 212 H Current Medications Acetaminophen (Tylenol) 650 mg PO Q6H PRN PRN PRN Reason: Mild Pain (scale 0-3)/T>100.7 Last Admin: 01/06/18 22:33 Dose: 650 mg Albuterol Sulfate (Ventolin Aerosols) 2.5 mg INHALATION Q2H PRN PRN PRN Reason: Shortness of breath, wheezing Albuterol/Ipratropium (Duoneb) 3 ml INHALATION Q4H.RT [facility] Last Admin: 01/07/18 14:10 Dose: 3 ml Atorvastatin Calcium (Lipitor) 10 mg PO QHS RAINER Last Admin: 01/06/18 22:26 Dose: 10 mg Escitalopram Oxalate (Lexapro) 10 mg PO DAILY [facility]IN[facility] Last Admin: 01/07/18 10:27 Dose: 10 mg Ferrous Sulfate (Ferrous Sulfate) 325 mg PO TIDCM [facility] Last Admin: 01/07/18 16:36 Dose: 325 mg Fluticasone Propionate (Flonase Nasal [place]) 1 spray NASAL BID [facility] Last Admin: 01/07/18 10:27 Dose: 1 spray Furosemide 500 mg/ N/A 50 mls @ 1 mls/hr CONT INF .Q50H [facility] Last Admin: 01/06/18 22:26 Dose: Not Given Insulin Human Lispro (Humalog Kwikpen (Bkc)) 0 unit SQ ACHS [facility]; Protocol Last Admin: 01/07/18 16:36 Dose: 3 u Lisinopril (Zestril) 2.5 mg PO DAILY [facility] Last Admin: 01/07/18 10:27 Dose: 2.5 mg Magnesium Hydroxide (Milk Of Magnesia) 30 ml PO DAILY PRN PRN Reason: Constipation Last Admin: 01/05/18 18:09 Dose: 30 ml Metoprolol Tartrate (Lopressor (Beta [place])) 50 mg PO BID [facility] Last Admin: 01/07/18 10:45 Dose: 50 mg Ondansetron HCl (Zofran) 4 mg IV Q8H PRN PRN PRN Reason: Nausea Last Admin: 01/03/18 12:51 Dose: 4 mg Pantoprazole Sodium (Protonix) 40 mg PO BID [facility] Last Admin: 01/07/18 10:27 Dose: 40 mg Sodium Chloride () 5 - 30 ml IV UD PRN PRN Reason: SALINE FLUSH Last Admin: 01/07/18 08:18 Dose: 10 ml Sodium Chloride ([place] Nasal [place]) 2 spray NASAL TID PRN PRN PRN Reason: NASAL DRYNESS Last Admin: 01/07/18 12:37 Dose: 2 spray Trazodone HCl (Desyrel) 100 mg PO QHS PRN PRN PRN Reason: SLEEP Last Admin: 01/05/18 22:17 Dose: 100 mg Medical Necessity - Tobacco Use Smoking Status: Former smoker Tobacco Use: Cigarettes Assessment/Plan All Active Problems (Last Updated 01/02/18 @ 17:11 by David Montana MD) Diastolic CHF, acute on chronic (Acute) CVA (cerebral vascular accident) (Resolved) CVA (cerebral vascular accident) (Resolved) History of GI bleeding (Resolved) This is a pleasant 67 years old female patient 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 1. Acute on chronic hypoxic respiratory failure, improved, currently on her home 6 L of oxygen, secondary to acute on chronic diastolic CHF, acute on chronic anemia: initially, patient did not had good free water clearance Lasix 60 mg every 8 hourly. Started on IV Lasix drip. Initially, lost about 3 pounds no significant change since yesterday. on low-dose lisinopril for afterload reduction. Continue treatment, wean off oxygen, encourage incentive spirometer. 2. Acute on chronic diastolic CHF on Lasix IV drip, rest as mentioned above: continue with strict I's and O's. potline monitor shows PVCs and short runs of NSVT. Sinus rhythm. Echo in May 2017 reported as EF 60% with normal systolic function. Mild concentric LVH. No regional wall motion abnormality. Normal RV size systolic function. LA moderately enlarged. Moderate TR, RVSP 60 mmHg. Moderately severe aortic stenosis, mean AV gradient 34 mmHg severe focal aortic valve calcification. Discussed with the residential carpet installer, Dr. Xavier. Agree with the plan of Lasix drip. 3. Acute on chronic anemia, history of AVMs, chronic anemia, iron deficient. Patient had total of 2 unit of PRBC transfusion on 01/03 and 01/04. Hemoglobin from 7- 8.7, 8.2 4. Indeterminate troponin second to demand ischemia, continue to monitor 5. Aortic stenosis, moderately severe: Maintain fluid balance. 6. Severe COPD, with chronic respiratory failure, with moderate to severe pulmonary hypertension with moderate TR probably from both left side heart failure and COPD: continue on breathing treatment, aggressive pulmonary toileting. 7. Hypertension, stable, on metoprolol, continue to monitor vitals. 8. Type 2 diabetes mellitus, sugars are fairly uncontrolled, metformin withheld, will continue on ADA diet, Accu-Cheks, increase insulin sliding scale to high- dose 9. morbid obesity, BMI 46, diet and exercise is recommended 10. DVT prophylaxis -SCDs. Microbiology Past 72 Hours 01/06/18 18:10 Stool Stool Occult Blood (TESS) - Final Occult Blood Positive Laboratory Results 01/06/18 22:22: POC Glucose 209 H 01/07/18 06:05: WBC 11.6 H, RBC 3.15 L, Hgb 8.5 L, Hct 31.0 L, MCV 98.4, MCH 27.0, MCHC 27.4 L, RDW 16.7 H, RDW Differential 60.0 H, Plt Count 406, MPV 9.7, Immature Gran % (Auto) 0.400, Neut % (Auto) 84.4 H, Lymph % (Auto) 8.3 L, [place] % (Auto) 5.0, Eos % (Auto) 1.6, Baso % (Auto) 0.3, Absolute Neuts (auto) 9.8 H, Absolute Lymphs (auto) 0.96, Total Counted Not Reportable 01/07/18 06:05: Sodium 138, Potassium 4.1, Chloride 89 L, Carbon Dioxide 43.0 H, Anion Gap 6, BUN 41 H, Creatinine 1.18 H, Estim Creat Clear Calc 37.22, Est GFR (MDRD) Af Amer 58 L, Est GFR (MDRD) Non-Af 48 L, BUN/Creatinine Ratio 34.7 H, Glucose 157 H, Calcium 8.6 01/07/18 06:48: POC Glucose 172 H 01/07/18 11:40: POC Glucose 212 H Clinical Impression(s) from Imaging Studies Chest X-Ray 01/02/18 15:13 IMPRESSION: Mild perihilar interstitial and vascular prominence in the lungs may be related to technique. Differential considerations include mild CHF, or mild pneumonitis. There is no focal infiltrate and no visible effusion. Code Visit Inpatient E&M: 23082 Subs Hosp L3
[2018-01-07 16:55] LABS: Bedside Glucose 167 mg/dL (70-110)
--- NOTE | 2018-01-07 17:23 | PCM.PN.CARD ---
Subjectve: The patient states her breathing is somewhat improved but not normal. She continues with lower extremity edema. Objective: Vital Signs Temp Pulse Resp BP Pulse Ox 97.9 F 82 18 106/44 L 94 01/07/18 16:34 01/07/18 16:34 01/07/18 16:34 01/07/18 16:34 01/07/18 16:34 Oxygen Flow Rate (L/min) 5 Oxygen Delivery Method Nasal Cannula Weight: 255 lb 15.307 oz Body Mass Index (BMI) 45.4 Intake and Output for Last 24 Hours 01/05/18 01/06/18 01/07/18 23:59 23:59 23:59 Intake Total 1177.9 / 1177.9 943.6 / 943.6 377.8 / 377.8 Output Total 1350 / 1350 1650 / 1650 450 / 450 Balance -172.1 / -172.1 -706.4 / -706.4 -72.2 / -72.2 General: Awake, Alert, Oriented x 3, Cooperative, No Acute Distress, Obese HEENT: Atraumatic, Normocephalic, PERRL, EOMI, Sclera Non Icteric Oral: Moist Mucosa Neck: Supple, Good ROM, No JVD Lungs: - - Markedly diminished breath sounds bilaterally Cardiovascular: Regular Rhythm, Normal S1, Normal S2 Murmur Murmur: Grade 3/6, Harsh, Mid Systolic, LLSB, LVOT, Sternal Notch Abdomen: Bowel Sounds Present, Soft, Non Tender, Obese Extremities: Severe RLE Edema, Severe LLE Edema 01/07/18 06:05: WBC 11.6 H, RBC 3.15 L, Hgb 8.5 L, Hct 31.0 L, MCV 98.4, MCH 27.0, MCHC 27.4 L, RDW 16.7 H, RDW Differential 60.0 H, Plt Count 406, MPV 9.7, Immature Gran % (Auto) 0.400, Neut % (Auto) 84.4 H, Lymph % (Auto) 8.3 L, [place] % (Auto) 5.0, Eos % (Auto) 1.6, Baso % (Auto) 0.3, Absolute Neuts (auto) 9.8 H, Total Counted Not Reportable 01/07/18 06:05: Sodium 138, Potassium 4.1, Chloride 89 L, Carbon Dioxide 43.0 H, Anion Gap 6, BUN 41 H, Creatinine 1.18 H, Est GFR (MDRD) Af Amer 58 L, Est GFR (MDRD) Non-Af 48 L, BUN/Creatinine Ratio 34.7 H, Glucose 157 H, Calcium 8.6 Rhythm: Sinus rhythm Medical Necessity - Tobacco Use Smoking Status: Former smoker Tobacco Use: Cigarettes Assessment/Plan 1. Acute on chronic diastolic mediated CHF At the present time patient presents with findings compatible with acute on chronic diastolic mediated CHF. At the present time she will continue infusion IV furosemide/Lasix. She has had some increased diuresis however not significantly so. She will receive a dose of diuril x1 to see if this would help increase her diuresis and subsequently associated concerns and symptoms. She will continue oxygen support. 2. Aortic valve stenosis She does have a history of aortic valve stenosis. There is somewhat of a discrepancy between her transthoracic echocardiogram and her diagnostic cardiac catheterization. He has been evaluated at the [facility] [place] for her aortic valve stenosis for consideration for TAVR thus far they have not proceeded with this procedure. A follow-up transthoracic echocardiogram was performed. Her aortic valve, is not well visualized, however, spectral Doppler suggest moderately severe aortic valve stenosis. 3. Pulmonary hypertension This may be secondary to not only her cardiovascular disease but her pulmonary disease with her COPD, etc. This can lead to cor pulmonale and right heart failure. He will need continued pulmonary support and medical therapy which does include her diuretic therapy. The follow-up echocardiogram, secondary to being a technically diminished quality study, was unable to estimate the RV systolic pressure/right sided pressures. 4. Hyperlipidemia She will continue lipid-lowering therapy as deemed appropriate. 5. Hypertension She will continue antihypertensive therapy with adjustment as needed. 6. Diabetes mellitus She will continue under the care of internal medicine. 7. COPD She does have a history of COPD. She will need continue pulmonary evaluation care. She is on O2 therapy. 8. Anemia Her H/H is improved s/p additional PRBCs. Hopefully this will assist her O2 carrying capacity. This note was generated with [employer] software. It may contain incorrect words, spelling, and punctuation that were not noted in checking the note before signing.
[2018-01-07] MEDS: Furosemide 500 MG in Empty Viaflex 50 mL 1 EACH CONT INF (18:06)
[2018-01-07] MEDS: Acetaminophen 325 MG Tablet 650 MG PO (21:05)
[2018-01-07] MEDS: Atorvastatin Calcium 10 MG Tablet PO (21:05)
[2018-01-07 21:20] LABS: Bedside Glucose 209 mg/dL (70-110)
[2018-01-08] VITALS (18 sets, daily range): BP systolic 95–127; BP diastolic 34–55; PULSE 62–98; RESP 16–20; TEMP 36.3–36.8; O2SAT 92–100
[2018-01-08 06:55] LABS: Anion Gap 4 (5-15); BUN 44 mg/dL (7-18); BUN/Creat Ratio 36.4 RATIO (10-20); Calcium,Total 8.7 mg/dL (8.5-10.1); Chloride 87 mmol/L (98-107); Creatinine, Serum 1.21 mg/dL (0.55-1.02); EST Glomerular Filtration Rate 47 mL/min (>60); Est Glom Filt Rate - Afr Amer 57 mL/min (>60); Glucose 159 mg/dL (74-106); Potassium 3.6 mmol/L (3.5-5.1); Sodium Level 136 mmol/L (136-145)
[2018-01-08 06:56] LABS: Bedside Glucose 181 mg/dL (70-110)
[2018-01-08 07:01] LABS: Absolute Lymphocyte Count 0.52 X10^3/ul (0.83-4.51); Absolute Neutrophil Count 6.7 X10^3/uL (2.0-7.7); Basophil# 0.02 X10^3/uL; Basophil% 0.2 % (0-1); Eosinophil# 0.22 X10^3/uL; Eosinophils% 2.7 % (0-5); Hematocrit 31.6 % (37-47); Hemoglobin 8.6 g/dl (12.0-15.0); Lymphocyte # 0.52 X10^3/ul (4.0); Lymphocyte % 6.3 % (19-41); Mean Corp Hgb Conc 27.2 g/gl (32-36); Mean Corpuscular Hgb 27.3 pg (27.0-32.0); Mean Corpuscular Volume 100.3 fL (81-99); Mean Platelet Vol. 9.9 fl (6.2-12.0); Monocyte# 0.76 X10^3/uL; Monocyte% 9.2 % (0-10); Neutrophil # 6.68 X10^3/uL (2.7-7.7); Neutrophil % 80.9 % (47-70); Platelet Count 421 K/mm3 (150-450); RBC Distribution Width CV 16.1 % (11.6-14.6); RBC Distribution Width SD 56.3 fl (35.1-43.9); Red Blood Count 3.15 M/mm3 (4.2-5.4); White Blood Count 8.3 K/mm3 (4.4-11.0)
[2018-01-08 07:03] LABS: Differential Indicated SCAN CRITERIA MET; POSITIVE COUNT NO; POSITIVE DIFFERENTIAL YES; POSITIVE MORPHOLOGY NO
[2018-01-08 07:12] LABS: Anisocytosis 2+; Differential Comment SCANNED; Hypochromasia 3+
[2018-01-08] MEDS: Ipratropium/Albuterol Sulfate 3 ML AMPUL.NEB INHALATION ×4 (07:19→19:35)
[2018-01-08] MEDS: Ferrous Sulfate 325 MG Tablet PO ×3 (07:48→16:34)
[2018-01-08] MEDS: Fluticasone 0.05% 1 SPRAY NASAL.SRY NASAL ×2 (07:48→22:10)
[2018-01-08] MEDS: Escitalopram Oxalate 10 MG Tablet PO (07:49)
[2018-01-08] MEDS: Insulin Lispro 100 UNIT/ML INSULN.PEN SQ ×4 (07:50→22:11)
[2018-01-08] MEDS: Pantoprazole Sodium 40 MG Tablet PO ×2 (07:50→22:12)
[2018-01-08] MEDS: Acetaminophen 325 MG Tablet 650 MG PO (07:53)
--- NOTE | 2018-01-08 09:40 | PN_ITS ---
Patient Problems: Active and Suspected Problems (Last Updated 01/02/18 @ 17:11 by David Montana MD) Diastolic CHF, acute on chronic (Acute) CKD stage 3 secondary to diabetes (Acute) Subjective: Patient did not has much change in the weight. As per the rate charting, actually she gained 1pound. Had 1850 mL urine output yesterday. Lasix drip increased to 15 mg/h. Nephrology consult to help for further diuresis. Blood pressure is on lower side in 100s. Subjectively, patient is feeling better. Vitals/I&O's: Vital Signs Temp Pulse Resp BP Pulse Ox 97.8 F 68 16 95/34 L 100 01/08/18 07:44 01/08/18 08:32 01/08/18 08:32 01/08/18 07:44 01/08/18 07:44 Oxygen Flow Rate (L/min) 4 Oxygen Delivery Method Nasal Cannula Weight: 256 lb 6.362 oz Body Mass Index (BMI) 45.4 Intake and Output for Last 24 Hours 01/06/18 01/07/18 01/08/18 23:59 23:59 23:59 Intake Total 943.6 / 943.6 908.5 / 908.5 545.2 / 545.2 Output Total 1650 / 1650 1850 / 1850 1350 / 1350 Balance -706.4 / -706.4 -941.5 / -941.5 -804.8 / -804.8 General: Alert, Oriented x3, Cooperative HEENT: Atraumatic, PERRLA, EOMI, Normocephalic Neck: Supple, No JVD, Negative Carotid Bruits Lungs: Diminished - Air entry diminished on bilateral posterior half of lungs., Rales, Rhonchi Cardiovascular: Regular rate, Regular Rhythm, Normal S1, Normal S2, Murmur - Gr rocío 3/6 ejection systolic murmur at the aortic region, - - PVCs and occasional NSVT on take away worker Abdomen: Bowel Sounds Present, Soft, Non Tender Extremities: Capillary Refill Less than 3 Seconds, Edema - Not much improvement on bilateral lower extremity edema Skin: No rashes, No breakdown Musculoskeletal: No Tenderness to Palpation of Joints or Extremities, Arthritic Changes, Muscle Wasting Neurological: Cranial nerves II-XII grossly intact Psych/Mental Status: Normal Affect, Appropriate Microbiology Past 72 Hours 01/06/18 18:10 Stool Stool Occult Blood (TESS) - Final Occult Blood Positive Laboratory Results 01/07/18 11:40: POC Glucose 212 H 01/07/18 16:31: POC Glucose 167 H 01/07/18 21:00: POC Glucose 209 H 01/08/18 05:45: WBC 8.3, RBC 3.15 L, Hgb 8.6 L, Hct 31.6 L, MCV 100.3 H, MCH 27.3, MCHC 27.2 L, RDW 16.1 H, RDW Differential 56.3 H, Plt Count 421, MPV 9.9, Immature Gran % (Auto) 0.700, Neut % (Auto) 80.9 H, Lymph % (Auto) 6.3 L, [place] % (Auto) 9.2, Eos % (Auto) 2.7, Baso % (Auto) 0.2, Absolute Neuts (auto) 6.7, Absolute Lymphs (auto) 0.52 L, Total Counted Not Reportable, Differential Co mment SCANNED, Hypochromasia 3+, Anisocytosis 2+ 01/08/18 05:45: Sodium 136, Potassium 3.6, Chloride 87 L, Carbon Dioxide 45.0 H, Anion Gap 4 L, BUN 44 H, Creatinine 1.21 H, Estim Creat Clear Calc 36.30, Est GFR (MDRD) Af Amer 57 L, Est GFR (MDRD) Non-Af 47 L, BUN/Creatinine Ratio 36.4 H , Glucose 159 H, Calcium 8.7 01/08/18 06:52: POC Glucose 181 H Current Medications Acetaminophen (Tylenol) 650 mg PO Q6H PRN PRN PRN Reason: Mild Pain (scale 0-3)/T>100.7 Last Admin: 01/08/18 07:53 Dose: 650 mg Albuterol Sulfate (Ventolin Aerosols) 2.5 mg INHALATION Q2H PRN PRN PRN Reason: Shortness of breath, wheezing Albuterol/Ipratropium (Duoneb) 3 ml INHALATION Q4H.RT [facility] Last Admin: 01/08/18 07:19 Dose: 3 ml Atorvastatin Calcium (Lipitor) 10 mg PO QHS RAINER Last Admin: 01/07/18 21:05 Dose: 10 mg Escitalopram Oxalate (Lexapro) 10 mg PO DAILY [facility] Last Admin: 01/08/18 07:49 Dose: 10 mg Ferrous Sulfate (Ferrous Sulfate) 325 mg PO TIDCM [facility] Last Admin: 01/08/18 07:48 Dose: 325 mg Fluticasone Propionate (Flonase Nasal [place]) 1 spray NASAL BID [facility] Last Admin: 01/08/18 07:48 Dose: 1 spray Furosemide 500 mg/ N/A 50 mls @ 1.5 mls/hr CONT INF .[id number] [facility] Insulin Human Lispro (Humalog Kwikpen (Bkc)) 0 unit SQ ACHS [facility]; Protocol Last Admin: 01/08/18 07:50 Dose: 3 u Magnesium Hydroxide (Milk Of Magnesia) 30 ml PO DAILY PRN PRN Reason: Constipation Last Admin: 01/05/18 18:09 Dose: 30 ml Metoprolol Tartrate (Lopressor (Beta [place])) 50 mg PO BID [facility] Last Admin: 01/08/18 07:49 Dose: Not Given Ondansetron HCl (Zofran) 4 mg IV Q8H PRN PRN PRN Reason: Nausea Last Admin: 01/03/18 12:51 Dose: 4 mg Pantoprazole Sodium (Protonix) 40 mg PO BID [facility] Last Admin: 01/08/18 07:50 Dose: 40 mg Sodium Chloride () 5 - 30 ml IV UD PRN PRN Reason: SALINE FLUSH Last Admin: 01/07/18 18:40 Dose: 10 ml Sodium Chloride ([place] Nasal [place]) 2 spray NASAL TID PRN PRN PRN Reason: NASAL DRYNESS Last Admin: 01/07/18 21:04 Dose: 2 spray Trazodone HCl (Desyrel) 100 mg PO QHS PRN PRN PRN Reason: SLEEP Last Admin: 01/05/18 22:17 Dose: 100 mg Medical Necessity - Tobacco Use Smoking Status: Former smoker Tobacco Use: Cigarettes Assessment/Plan All Active Problems (Last Updated 01/02/18 @ 17:11 by David Montana MD) Diastolic CHF, acute on chronic (Acute) CKD stage 3 secondary to diabetes (Acute) CVA (cerebral vascular accident) (Resolved) CVA (cerebral vascular accident) (Resolved) History of GI bleeding (Resolved) This is a pleasant 67 years old female patient who was 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 1. Acute on chronic hypoxic respiratory failure, improved, currently on her home 5 L of oxygen, secondary to acute on chronic diastolic CHF, acute on chronic anemia: Initially, patient had respiratory distress, and tachypnea. Currently on baseline 5 L oxygen. Acute respiratory failure improved. Initially, patient did not had good free water clearance Lasix 60 mg every 8 hourly. Lasix drip increased to 15 mg/h. Corrective Therapist consulted. Patient received 1 dose of Diuril today Diamox was added by mechanical technician. Diamox added for metabolic alkalosis. encourage incentive spirometer. 2. Acute on chronic diastolic CHF on Lasix IV drip, rest as mentioned above: continue with strict I's and O's. meter tester shows PVCs and short runs of NSVT. Sinus rhythm. Echo in May 2017 reported as EF 60% with normal systolic function. Mild concentric LVH. No regional wall motion abnormality. Normal RV size systolic function. LA moderately enlarged. Moderate TR, RVSP 60 mmHg. Moderately severe aortic stenosis, mean AV gradient 34 mmHg severe focal aortic valve calcification. Discussed with the education officer, Dr. Xavier. 3. Acute on chronic anemia, history of AVMs, chronic anemia, iron deficient. Patient had total of 2 unit of PRBC transfusion on 01/03 and 01/04. Hemoglobin from 7- 8.7, 8.2 4. Indeterminate troponin second to demand ischemia. 5. Aortic stenosis, moderately severe: Maintain fluid balance. Patient had [facility] scheduled for evaluation of moderately severe aortic stenosis 6. Severe COPD, with chronic respiratory failure, with moderate to severe pulmonary hypertension with moderate TR probably from both left side heart failure and COPD: continue on breathing treatment, aggressive pulmonary toileting. 7. Hypertension, stable, on metoprolol, continue to monitor vitals. 8. Type 2 diabetes mellitus, sugars are fairly uncontrolled, metformin withheld, will continue on ADA diet, Accu-Cheks, increase insulin sliding scale to high- dose 9. morbid obesity, BMI 46, diet and exercise is recommended 10. DVT prophylaxis -SCDs. Plan of management, medications and left findings discussed with the patient. Microbiology Past 72 Hours 01/06/18 18:10 Stool Stool Occult Blood (TESS) - Final Occult Blood Positive Laboratory Results 01/07/18 16:31: POC Glucose 167 H 01/07/18 21:00: POC Glucose 209 H 01/08/18 05:45: WBC 8.3, RBC 3.15 L, Hgb 8.6 L, Hct 31.6 L, MCV 100.3 H, MCH 27.3, MCHC 27.2 L, RDW 16.1 H, RDW Differential 56.3 H, Plt Count 421, MPV 9.9, Immature Gran % (Auto) 0.700, Neut % (Auto) 80.9 H, Lymph % (Auto) 6.3 L, [place] % (Auto) 9.2, Eos % (Auto) 2.7, Baso % (Auto) 0.2, Absolute Neuts (auto) 6.7, Absolute Lymphs (auto) 0.52 L, Total Counted Not Reportable, Differential Comment SCANNED, Hypochromasia 3+, Anisocytosis 2+ 01/08/18 05:45: Sodium 136, Potassium 3.6, Chloride 87 L, Carbon Dioxide 45.0 H, Anion Gap 4 L, BUN 44 H, Creatinine 1.21 H, Estim Creat Clear Calc 36.30, Est GFR (MDRD) Af Amer 57 L, Est GFR (MDRD) Non-Af 47 L, BUN/Creatinine Ratio 36.4 H , Glucose 159 H, Calcium 8.7 01/08/18 06:52: POC Glucose 181 H 01/08/18 11:10: POC Glucose 177 H 01/08/18 16:32: POC Glucose 201 H Clinical Impression(s) from Imaging Studies Chest X-Ray 01/02/18 15:13 IMPRESSION: Mild perihilar interstitial and vascular prominence in the lungs may be related to technique. Differential considerations include mild CHF, or mild pneumonitis. There is no focal infiltrate and no visible effusion. Chest X-Ray 01/07/18 05:55 IMPRESSION: Findings suggestive of a mild degree of CHF. Code Visit Inpatient E&M: 19702 [facility] Hosp L3
[2018-01-08 11:25] LABS: Bedside Glucose 177 mg/dL (70-110)
[2018-01-08] MEDS: Sodium Chloride 0.65% 1 SPRAY SPRAY.BTL 2 SPRAY NASAL (11:40)
--- NOTE | 2018-01-08 13:39 | NURSING ---
STUDENT CHARTING REVIEWED BY THIS RN.
--- NOTE | 2018-01-08 13:48 | PCM.CONS.R ---
Problem List (1) CKD stage 3 secondary to diabetes Status: Acute (2) Chronic diastolic (congestive) heart failure Status: Chronic Consultation - Renal 01/08/18 PCP/ Referring MD: Requesting physician: Dr Medrano Primary care physician: Vic Chen Reason for Consultation:: CKD 3 CHF - History of Present Illness History of Present Illness: The patient is a 67 year old F admitted with progressively worsening dyspnea. Renal consulted for fluid overload, alkalosis. she has known history of CHF and is being seen by cardiology here. apparently developed progressively worsening edema with 10 lb weight gain and admitted here. has been on lasix drip. urine output is around 2 L or so. weight remains the same. subjectively she feels edema is better but still dyspneic. O2 requirements are higher today as per patient. - Allergies Allergies: Allergies No Known Allergies Allergy (Verified 01/02/18 15:03) - Current Medications Current Medications: Current Medications Acetaminophen (Tylenol) 650 mg PO Q6H PRN PRN PRN Reason: Mild Pain (scale 0-3)/T>100.7 Last Admin: 01/08/18 07:53 Dose: 650 mg Acetazolamide (Diamox) 250 mg PO BID [facility] Albuterol Sulfate (Ventolin Aerosols) 2.5 mg INHALATION Q2H PRN PRN PRN Reason: Shortness of breath, wheezing Albuterol/Ipratropium (Duoneb) 3 ml INHALATION Q4H.RT [facility] Last Admin: 01/08/18 11:19 Dose: 3 ml Atorvastatin Calcium (Lipitor) 10 mg PO QHS [facility] Last Admin: 01/07/18 21:05 Dose: 10 mg Escitalopram Oxalate (Lexapro) 10 mg PO DAILY [facility] Last Admin: 01/08/18 07:49 Dose: 10 mg Ferrous Sulfate (Ferrous Sulfate) 325 mg PO TIDCM [facility] Last Admin: 01/08/18 11:40 Dose: 325 mg Fluticasone Propionate (Flonase Nasal [place]) 1 spray NASAL BID [facility] Last Admin: 01/08/18 07:48 Dose: 1 spray Furosemide 500 mg/ N/A 50 mls @ 1.5 mls/hr CONT INF .[id number] [facility] Insulin Human Lispro (Humalog Kwikpen (Bkc)) 0 unit SQ ACHS [facility]; Protocol Last Admin: 01/08/18 12:22 Dose: 3 u Magnesium Hydroxide (Milk Of Magnesia) 30 ml PO DAILY PRN PRN Reason: Constipation Last Admin: 01/05/18 18:09 Dose: 30 ml Metoprolol Tartrate (Lopressor (Beta [place])) 50 mg PO BID [facility] Last Admin: 01/08/18 07:49 Dose: Not Given Ondansetron HCl (Zofran) 4 mg IV Q8H PRN PRN PRN Reason: Nausea Last Admin: 01/03/18 12:51 Dose: 4 mg Pantoprazole Sodium (Protonix) 40 mg PO BID [facility] Last Admin: 01/08/18 07:50 Dose: 40 mg Sodium Chloride () 5 - 30 ml IV UD PRN PRN Reason: SALINE FLUSH Last Admin: 01/07/18 18:40 Dose: 10 ml Sodium Chloride ([place] Nasal [place]) 2 spray NASAL TID PRN PRN PRN Reason: NASAL DRYNESS Last Admin: 01/08/18 11:40 Dose: 2 spray Trazodone HCl (Desyrel) 100 mg PO QHS PRN PRN PRN Reason: SLEEP Last Admin: 01/05/18 22:17 Dose: 100 mg - Past Medical History Past Medical History (Chronic Problems): Chronic Problems (Last Updated 01/02/18 @ 17:11 by David Montana MD) Chronic diastolic (congestive) heart failure (Chronic) Cerebral infarction, unspecified (Chronic) Palpitations (Chronic) Anxiety (Chronic) Left atrial enlargement (Chronic) Hypersomnia (Chronic) Anemia (Chronic) Carotid artery stenosis (Chronic) Chronic hypoxemic respiratory failure (Chronic) Pulmonary fibrosis (Chronic) 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 3 severe COPD by GOLD classification (Chronic) Aortic stenosis (Chronic) Moderate to severe with valve area 1.1 on cardiac catheterization in 2014 Diabetes mellitus type II (Chronic) Pulmonary hypertension (Chronic) With PA pressures 55 by cardiac catheterization Hypertension (Chronic) HLD (hyperlipidemia) (Chronic) 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) - Past Surgical History Surgical History: herniorrhaphy, hysterectomy, - - Social History Smoking Status: Former smoker Alcohol: None Drugs: None - Family History Paternal Family History: Family History (Last Reviewed 05/02/17 @ 11:14 by Yakelin Berkowitz) Mother Heart disease Father CAD (coronary artery disease) Hypertension Brother Hypertension History Items: Heart Disease Maternal Family History: Family History (Last Reviewed 05/02/17 @ 11:14 by Yakelin Berkowitz) Mother Heart disease Father CAD (coronary artery disease) Hypertension Brother Hypertension History Items: Heart Disease Review of Systems Constitutional: Denies: Chills, Fever, Weight Change HEENT: Denies: Head Aches, Sinus Congestion, Sinus Drainage Cardiovascular: Denies: Chest Pain, Palpitations Respiratory: Reports: Shortness of Breath, Shortness of breath at rest. Denies: Cough, Sputum production Gastrointestinal: Denies: Abdominal Pain, Nausea, Vomiting Genitourinary: Denies: Dysuria Musculoskeletal: Denies: Joint Pain, Joint Tenderness Skin: Denies: Rash, Wounds Neurological: Denies: Numbness, Tingling, Focal weakness Psychiatric: Denies: Anxiety, Depression, Homicidal Ideations, Suicidal Ideations Hematologic/ Lymphatic: Denies: Easy Bruising, Easy Bleeding Patient Problems: Active and Suspected Problems (Last Updated 01/02/18 @ 17:11 by David Montana MD) Diastolic CHF, acute on chronic (Acute) CKD stage 3 secondary to diabetes (Acute) - Physical Exam General: Alert, Oriented x3, Cooperative HEENT: Atraumatic, PERRLA, EOMI, Normocephalic Neck: Supple, No JVD, Negative Carotid Bruits Lungs: Clear to auscultation, Normal air movement Cardiovascular: Regular rate, No murmurs Abdomen: Bowel Sounds Present, Soft, Non Tender Extremities: Capillary Refill Less than 3 Seconds, Edema Skin: No rashes, No breakdown Musculoskeletal: No Tenderness to Palpation of Joints or Extremities Neurological: Cranial nerves II-XII grossly intact Psych/Mental Status: Normal Affect, Appropriate Vital Signs Temp Pulse Resp BP Pulse Ox 98.2 F 80 20 H 112/55 L 95 01/08/18 10:11 01/08/18 12:40 01/08/18 12:40 01/08/18 10:11 01/08/18 10:11 Oxygen Flow Rate (L/min) 5 Oxygen Delivery Method Nasal Cannula Weight: 116.3 kg Body Mass Index (BMI) 45.4 Intake and Output for Last 24 Hours 01/06/18 01/07/18 01/08/18 23:59 23:59 23:59 Intake Total 943.6 / 943.6 908.5 / 908.5 673.3 / 673.3 Output Total 1650 / 1650 1850 / 1850 2175 / 2175 Balance -706.4 / -706.4 -941.5 / -941.5 -1501.7 / -1501.7 Microbiology Past 72 Hours 01/06/18 18:10 Stool Occult Blood (TESS) - Final Stool Occult Blood Positive Laboratory Tests Past 24 Hrs 01/08/18 01/08/18 05:45 05:45 WBC 8.3 RBC 3.15 L Hgb 8.6 L Hct 31.6 L MCV 100.3 H MCH 27.3 MCHC 27.2 L RDW 16.1 H RDW Differential 56.3 H Plt Count 421 MPV 9.9 Immature Gran % (Auto) 0.700 Neut % (Auto) 80.9 H Lymph % (Auto) 6.3 L [place] % (Auto) 9.2 Eos % (Auto) 2.7 Baso % (Auto) 0.2 Absolute Neuts (auto) 6.7 Absolute Lymphs (auto) 0.52 L Total Counted Not Reportable Differential Comment SCANNED Hypochromasia 3+ Anisocytosis 2+ Sodium 136 Potassium 3.6 Chloride 87 L Carbon Dioxide 45.0 H Anion Gap 4 L BUN 44 H Creatinine 1.21 H Estim Creat Clear Calc 36.30 Est GFR (MDRD) Af Amer 57 L Est GFR (MDRD) Non-Af 47 L BUN/Creatinine Ratio 36.4 H Glucose 159 H Calcium 8.7 POC Glucose 01/08/18 01/08/18 01/07/18 11:10 06:52 21:00 POC Glucose 177 H 181 H 209 H 01/07/18 16:31 POC Glucose 167 H Assessment/Plan All Active Problems (Last Updated 01/02/18 @ 17:11 by David Montana MD) Diastolic CHF, acute on chronic (Acute) CKD stage 3 secondary to diabetes (Acute) CVA (cerebral vascular accident) (Resolved) CVA (cerebral vascular accident) (Resolved) History of GI bleeding (Resolved) TANJA CHF baseline creatinine is around 0.9. today at 1.1. denies any urinary complaints. rise in creatinine is likely related to diuresis CHF. still complains of dyspnea. weight remains the same. Bp is low on lasix drip. received diuril as per cardiology today. This will likely make alkalosis worse. will add diamox for today. if bicarbonate better, will add daily metolazone d/w Dr Medrano
--- NOTE | 2018-01-08 13:54 | CON.PCM_ITS ---
Problem List (1) CKD stage 3 secondary to diabetes Status: Acute (2) Chronic diastolic (congestive) heart failure Status: Chronic Consultation - Renal 01/08/18 PCP/ Referring MD: Requesting physician: Dr Medrano Primary care physician: Vic Chen Reason for Consultation:: CKD 3 CHF - History of Present Illness History of Present Illness: The patient is a 67 year old F admitted with progressively worsening dyspnea. Renal consulted for fluid overload, alkalosis. she has known history of CHF and is being seen by cardiology here. apparently developed progressively worsening edema with 10 lb weight gain and admitted here. has been on lasix drip. urine output is around 2 L or so. weight remains the same. subjectively she feels edema is better but still dyspneic. O2 requirements are higher today as per patient. - Allergies Allergies: Allergies No Known Allergies Allergy (Verified 01/02/18 15:03) - Current Medications Current Medications: Current Medications Acetaminophen (Tylenol) 650 mg PO Q6H PRN PRN PRN Reason: Mild Pain (scale 0-3)/T>100.7 Last Admin: 01/08/18 07:53 Dose: 650 mg Acetazolamide (Diamox) 250 mg PO BID [facility] Albuterol Sulfate (Ventolin Aerosols) 2.5 mg INHALATION Q2H PRN PRN PRN Reason: Shortness of breath, wheezing Albuterol/Ipratropium (Duoneb) 3 ml INHALATION Q4H.RT [facility] Last Admin: 01/08/18 11:19 Dose: 3 ml Atorvastatin Calcium (Lipitor) 10 mg PO QHS RAINER Last Admin: 01/07/18 21:05 Dose: 10 mg Escitalopram Oxalate (Lexapro) 10 mg PO DAILY [facility] Last Admin: 01/08/18 07:49 Dose: 10 mg Ferrous Sulfate (Ferrous Sulfate) 325 mg PO TIDCM [facility] Last Admin: 01/08/18 11:40 Dose: 325 mg Fluticasone Propionate (Flonase Nasal Pegram) 1 spray NASAL BID [facility] Last Admin: 01/08/18 07:48 Dose: 1 spray Furosemide 500 mg/ N/A 50 mls @ 1.5 mls/hr CONT INF .[id number] [facility] Insulin Human Lispro (Humalog Kwikpen (Bkc)) 0 unit SQ ACHS RAINER; Protocol Last Admin: 01/08/18 12:22 Dose: 3 u Magnesium Hydroxide (Milk Of Magnesia) 30 ml PO DAILY PRN PRN Reason: Constipation Last Admin: 01/05/18 18:09 Dose: 30 ml Metoprolol Tartrate (Lopressor (Beta Jeffery)) 50 mg PO BID [facility] Last Admin: 01/08/18 07:49 Dose: Not Given Ondansetron HCl (Zofran) 4 mg IV Q8H PRN PRN PRN Reason: Nausea Last Admin: 01/03/18 12:51 Dose: 4 mg Pantoprazole Sodium (Protonix) 40 mg PO BID [facility] Last Admin: 01/08/18 07:50 Dose: 40 mg Sodium Chloride () 5 - 30 ml IV UD PRN PRN Reason: SALINE FLUSH Last Admin: 01/07/18 18:40 Dose: 10 ml Sodium Chloride (Moffat Nasal Pegram) 2 spray NASAL TID PRN PRN PRN Reason: NASAL DRYNESS Last Admin: 01/08/18 11:40 Dose: 2 spray Trazodone HCl (Desyrel) 100 mg PO QHS PRN PRN PRN Reason: SLEEP Last Admin: 01/05/18 22:17 Dose: 100 mg - Past Medical History Past Medical History (Chronic Problems): Chronic Problems (Last Updated 01/02/18 @ 17:11 by David Montana MD) Chronic diastolic (congestive) heart failure (Chronic) Cerebral infarction, unspecified (Chronic) Palpitations (Chronic) Anxiety (Chronic) Left atrial enlargement (Chronic) Hypersomnia (Chronic) Anemia (Chronic) Carotid artery stenosis (Chronic) Chronic hypoxemic respiratory failure (Chronic) Pulmonary fibrosis (Chronic) 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 3 severe COPD by GOLD classification (Chronic) Aortic stenosis (Chronic) Moderate to severe with valve area 1.1 on cardiac catheterization in 2014 Diabetes mellitus type II (Chronic) Pulmonary hypertension (Chronic) With PA pressures 55 by cardiac catheterization Hypertension (Chronic) HLD (hyperlipidemia) (Chronic) 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) - Past Surgical History Surgical History: herniorrhaphy, hysterectomy, - - Social History Smoking Status: Former smoker Alcohol: None Drugs: None - Family History Paternal Family History: Family History (Last Reviewed 05/02/17 @ 11:14 by Yakelin Berkowitz) Mother Heart disease Father CAD (coronary artery disease) Hypertension Brother Hypertension History Items: Heart Disease Maternal Family History: Family History (Last Reviewed 05/02/17 @ 11:14 by Yakelin Berkowitz) Mother Heart disease Father CAD (coronary artery disease) Hypertension Brother Hypertension History Items: Heart Disease Review of Systems Constitutional: Denies: Chills, Fever, Weight Change HEENT: Denies: Head Aches, Sinus Congestion, Sinus Drainage Cardiovascular: Denies: Chest Pain, Palpitations Respiratory: Reports: Shortness of Breath, Shortness of breath at rest. Denies: Cough, Sputum production Gastrointestinal: Denies: Abdominal Pain, Nausea, Vomiting Genitourinary: Denies: Dysuria Musculoskeletal: Denies: Joint Pain, Joint Tenderness Skin: Denies: Rash, Wounds Neurological: Denies: Numbness, Tingling, Focal weakness Psychiatric: Denies: Anxiety, Depression, Homicidal Ideations, Suicidal Ideations Hematologic/ Lymphatic: Denies: Easy Bruising, Easy Bleeding Patient Problems: Active and Suspected Problems (Last Updated 01/02/18 @ 17:11 by David Montana MD) Diastolic CHF, acute on chronic (Acute) CKD stage 3 secondary to diabetes (Acute) - Physical Exam General: Alert, Oriented x3, Cooperative HEENT: Atraumatic, PERRLA, EOMI, Normocephalic Neck: Supple, No JVD, Negative Carotid Bruits Lungs: Clear to auscultation, Normal air movement Cardiovascular: Regular rate, No murmurs Abdomen: Bowel Sounds Present, Soft, Non Tender Extremities: Capillary Refill Less than 3 Seconds, Edema Skin: No rashes, No breakdown Musculoskeletal: No Tenderness to Palpation of Joints or Extremities Neurological: Cranial nerves II-XII grossly intact Psych/Mental Status: Normal Affect, Appropriate Vital Signs Temp Pulse Resp BP Pulse Ox 98.2 F 80 20 H 112/55 L 95 01/08/18 10:11 01/08/18 12:40 01/08/18 12:40 01/08/18 10:11 01/08/18 10:11 Oxygen Flow Rate (L/min) 5 Oxygen Delivery Method Nasal Cannula Weight: 116.3 kg Body Mass Index (BMI) 45.4 Intake and Output for Last 24 Hours 01/06/18 01/07/18 01/08/18 23:59 23:59 23:59 Intake Total 943.6 / 943.6 908.5 / 908.5 673.3 / 673.3 Output Total 1650 / 1650 1850 / 1850 2175 / 2175 Balance -706.4 / -706.4 -941.5 / -941.5 -1501.7 / -1501.7 Microbiology Past 72 Hours 01/06/18 18:10 Stool Occult Blood (TESS) - Final Stool Occult Blood Positive Laboratory Tests Past 24 Hrs 01/08/18 01/08/18 05:45 05:45 WBC 8.3 RBC 3.15 L Hgb 8.6 L Hct 31.6 L MCV 100.3 H MCH 27.3 MCHC 27.2 L RDW 16.1 H RDW Differential 56.3 H Plt Count 421 MPV 9.9 Immature Gran % (Auto) 0.700 Neut % (Auto) 80.9 H Lymph % (Auto) 6.3 L [place] % (Auto) 9.2 Eos % (Auto) 2.7 Baso % (Auto) 0.2 Absolute Neuts (auto) 6.7 Absolute Lymphs (auto) 0.52 L Total Counted Not Reportable Differential Comment SCANNED Hypochromasia 3+ Anisocytosis 2+ Sodium 136 Potassium 3.6 Chloride 87 L Carbon Dioxide 45.0 H Anion Gap 4 L BUN 44 H Creatinine 1.21 H Estim Creat Clear Calc 36.30 Est GFR (MDRD) Af Amer 57 L Est GFR (MDRD) Non-Af 47 L BUN/Creatinine Ratio 36.4 H Glucose 159 H Calcium 8.7 POC Glucose 01/08/18 01/08/18 01/07/18 11:10 06:52 21:00 POC Glucose 177 H 181 H 209 H 01/07/18 16:31 POC Glucose 167 H Assessment/Plan All Active Problems (Last Updated 01/02/18 @ 17:11 by David Montana MD) Diastolic CHF, acute on chronic (Acute) CKD stage 3 secondary to diabetes (Acute) CVA (cerebral vascular accident) (Resolved) CVA (cerebral vascular accident) (Resolved) History of GI bleeding (Resolved) TANJA CHF baseline creatinine is around 0.9. today at 1.1. denies any urinary complaints. rise in creatinine is likely related to diuresis CHF. still complains of dyspnea. weight remains the same. Bp is low on lasix dri p. received diuril as per cardiology today. This will likely make alkalosis worse. will add diamox for today. if bicarbonate better, will add daily metolazone d/w Dr Medrano
--- NOTE | 2018-01-08 14:01 | CASEMGMT ---
Call from Hola ALVAREZ and pt is current with CCN also. Ander UNDERWOOD CM
[2018-01-08] MEDS: Ibuprofen 600 MG Tablet PO (15:52)
[2018-01-08 16:40] LABS: Bedside Glucose 201 mg/dL (70-110)
--- NOTE | 2018-01-08 19:47 | PCM.PN.CARD ---
Subjectve: The patient states she feels somewhat better with her breathing overall. However she still cannot rest comfortably in bed. She continues with lower extremity edema without significant improvement. Objective: Vital Signs Temp Pulse Resp BP Pulse Ox 97.6 F L 88 20 H 123/47 H 92 01/08/18 15:07 01/08/18 19:35 01/08/18 19:35 01/08/18 15:07 01/08/18 15:07 Oxygen Flow Rate (L/min) 5 Oxygen Delivery Method Nasal Cannula Weight: 256 lb 6.362 oz Body Mass Index (BMI) 45.4 Intake and Output for Last 24 Hours 01/06/18 01/07/18 01/08/18 23:59 23:59 23:59 Intake Total 943.6 / 943.6 908.5 / 908.5 793.3 / 793.3 Output Total 1650 / 1650 1850 / 1850 2675 / 2675 Balance -706.4 / -706.4 -941.5 / -941.5 -1881.7 / -1881.7 General: Awake, Alert, Oriented x 3, Cooperative, No Acute Distress, Obese HEENT: Atraumatic, Normocephalic, PERRL, EOMI, Sclera Non Icteric Oral: Moist Mucosa Neck: Supple, Good ROM, No JVD Lungs: Diminished Param Bases Cardiovascular: Regular Rhythm, Normal S1, Normal S2 Murmur Murmur: Grade 3/6, Harsh, Mid Systolic, LLSB, LVOT, Sternal Notch Abdomen: Bowel Sounds Present, Soft, Non Tender, Obese Extremities: Severe RLE Edema, Severe LLE Edema Neurological: No Focal Motor or Sensory Deficit Psych/Mental Status: Appropriate, Normal Affect 01/08/18 05:45: WBC 8.3, RBC 3.15 L, Hgb 8.6 L, Hct 31.6 L, MCV 100.3 H, MCH 27.3, MCHC 27.2 L, RDW 16.1 H, RDW Differential 56.3 H, Plt Count 421, MPV 9.9, Immature Gran % (Auto) 0.700, Neut % (Auto) 80.9 H, Lymph % (Auto) 6.3 L, Dickson % (Auto) 9.2, Eos % (Auto) 2.7, Baso % (Auto) 0.2, Absolute Neuts (auto) 6.7, Total Counted Not Reportable 01/08/18 05:45: Sodium 136, Potassium 3.6, Chloride 87 L, Carbon Dioxide 45.0 H, Anion Gap 4 L, BUN 44 H, Creatinine 1.21 H, Est GFR (MDRD) Af Amer 57 L, Est GFR (MDRD) Non-Af 47 L, BUN/Creatinine Ratio 36.4 H, Glucose 159 H, Calcium 8.7 Rhythm: Sinus rhythm Medical Necessity - Tobacco Use Smoking Status: Former smoker Tobacco Use: Cigarettes Assessment/Plan 1. Acute on chronic diastolic mediated CHF At the present time patient presents with findings compatible with acute on chronic diastolic mediated CHF. At the present time she will continue infusion IV furosemide/Lasix. She has had some increased diuresis however not significantly so. She did receive a dose of diuril x1 to see if this would help increase her diuresis and subsequently associated concerns and symptoms. Thus far she has had no significant increase in her urinary output. She will continue oxygen support. 2. Aortic valve stenosis She does have a history of aortic valve stenosis. There is somewhat of a discrepancy between her transthoracic echocardiogram and her diagnostic cardiac catheterization. He has been evaluated at the [facility] Main micro for her aortic valve stenosis for consideration for TAVR thus far they have not proceeded with this procedure. A follow-up transthoracic echocardiogram was performed. Her aortic valve, is not well visualized, however, spectral Doppler suggest moderately severe aortic valve stenosis. 3. Pulmonary hypertension This may be secondary to not only her cardiovascular disease but her pulmonary disease with her COPD, etc. This can lead to cor pulmonale and right heart failure. He will need continued pulmonary support and medical therapy which does include her diuretic therapy. The follow-up echocardiogram, secondary to being a technically diminished quality study, was unable to estimate the RV systolic pressure/right sided pressures. 4. Hyperlipidemia She will continue lipid-lowering therapy as deemed appropriate. 5. Hypertension She will continue antihypertensive therapy with adjustment as needed. 6. Diabetes mellitus She will continue under the care of internal medicine. 7. COPD She does have a history of COPD. She will need continue pulmonary evaluation care. She is on O2 therapy. 8. Anemia Her H/H is improved s/p additional PRBCs. Hopefully this will assist her O2 carrying capacity. Her case is also been reviewed with nephrology. Nephrology is considering additional medical management with Diamox and metolazone. This note was generated with [employer] [place] dictation software. It may contain incorrect words, spelling, and punctuation that were not noted in checking the note before signing.
[2018-01-08] MEDS: AcetaZOLAMIDE 250 MG Tablet PO (22:10)
[2018-01-08] MEDS: Atorvastatin Calcium 10 MG Tablet PO (22:11)
[2018-01-08] MEDS: Metoprolol Tartrate 50 MG Tablet PO (22:12)
[2018-01-08 22:20] LABS: Bedside Glucose 210 mg/dL (70-110)
[2018-01-09] VITALS (18 sets, daily range): BP systolic 104–125; BP diastolic 45–70; PULSE 73–82; RESP 16–20; TEMP 36.7–37.1; O2SAT 93–96
[2018-01-09 06:55] LABS: Bedside Glucose 213 mg/dL (70-110)
[2018-01-09] MEDS: Ipratropium/Albuterol Sulfate 3 ML AMPUL.NEB INHALATION ×4 (07:18→19:01)
[2018-01-09] MEDS: Insulin Lispro 100 UNIT/ML INSULN.PEN SQ ×4 (08:29→21:47)
[2018-01-09] MEDS: AcetaZOLAMIDE 250 MG Tablet PO ×2 (08:30→21:47)
[2018-01-09] MEDS: Ferrous Sulfate 325 MG Tablet PO ×3 (08:30→16:45)
[2018-01-09] MEDS: Fluticasone 0.05% 1 SPRAY NASAL.SRY NASAL ×2 (08:30→21:45)
[2018-01-09] MEDS: Pantoprazole Sodium 40 MG Tablet PO ×2 (08:31→21:47)
[2018-01-09] MEDS: Escitalopram Oxalate 10 MG Tablet PO (08:31)
[2018-01-09] MEDS: Metoprolol Tartrate 50 MG Tablet PO ×2 (08:31→21:47)
[2018-01-09 08:56] LABS: Magnesium 1.9 mg/dL (1.6-2.6)
[2018-01-09] MEDS: Furosemide 500 MG in Empty Viaflex 50 mL 1 EACH CONT INF (09:19)
--- NOTE | 2018-01-09 09:47 | PCM.PN.CARD ---
Subjectve: The patient states her breathing has not significantly changed. She continues with lower extremity edema. She does not believe it has significantly improved. Objective: Vital Signs Temp Pulse Resp BP Pulse Ox 98.7 F 74 16 111/60 96 01/09/18 08:25 01/09/18 08:31 01/09/18 08:25 01/09/18 08:25 01/09/18 08:25 Oxygen Flow Rate (L/min) 4 Oxygen Delivery Method Nasal Cannula Weight: 252 lb 3.341 oz Body Mass Index (BMI) 45.4 Intake and Output for Last 24 Hours 01/07/18 01/08/18 01/09/18 23:59 23:59 23:59 Intake Total 908.5 / 908.5 931.3 / 931.3 9.1 / 9.1 Output Total 1850 / 1850 3525 / 3525 900 / 900 Balance -941.5 / -941.5 -2593.7 / -2593.7 -890.9 / -890.9 General: Awake, Alert, Oriented x 3, Cooperative, No Acute Distress, Obese HEENT: Atraumatic, Normocephalic, PERRL, EOMI, Sclera Non Icteric Oral: Moist Mucosa Neck: Supple, Good ROM, No JVD Lungs: Diminished Param Bases Cardiovascular: Regular Rhythm, Normal S1, Normal S2 Abdomen: Bowel Sounds Present, Soft, Non Tender Extremities: No Cyanosis, No Clubbing, No edema Neurological: No Focal Motor or Sensory Deficit Psych/Mental Status: Appropriate, Normal Affect 01/09/18 08:20: Magnesium 1.9 Rhythm: Sinus rhythm; occasional PVCs Medical Necessity - Tobacco Use Smoking Status: Former smoker Tobacco Use: Cigarettes Assessment/Plan 1. Acute on chronic diastolic mediated CHF At the present time patient presents with findings compatible with acute on chronic diastolic mediated CHF. At the present time she will continue infusion IV furosemide/Lasix. She will continue oxygen support. She is also being followed by nephrology. Their input is most appreciated. 2. Aortic valve stenosis She does have a history of aortic valve stenosis. There is somewhat of a discrepancy between her transthoracic echocardiogram and her diagnostic cardiac catheterization. He has been evaluated at the [facility] Main campus for her aortic valve stenosis for consideration for TAVR thus far they have not proceeded with this procedure. A follow-up transthoracic echocardiogram was performed. Her aortic valve, is not well visualized, however, spectral Doppler suggest moderately severe aortic valve stenosis. 3. Pulmonary hypertension This may be secondary to not only her cardiovascular disease but her pulmonary disease with her COPD, etc. This can lead to cor pulmonale and right heart failure. He will need continued pulmonary support and medical therapy which does include her diuretic therapy. The follow-up echocardiogram, secondary to being a technically diminished quality study, was unable to estimate the RV systolic pressure/right sided pressures. 4. Hyperlipidemia She will continue lipid-lowering therapy as deemed appropriate. 5. Hypertension She will continue antihypertensive therapy with adjustment as needed. 6. Diabetes mellitus She will continue under the care of internal medicine. 7. COPD She does have a history of COPD. She will need continue pulmonary evaluation care. She is on O2 therapy. 8. Anemia Her H/H is improved s/p additional PRBCs. Hopefully this will assist her O2 carrying capacity. This note was generated with [employer] dictation software. It may contain incorrect words, spelling, and punctuation that were not noted in checking the note before signing.
--- NOTE | 2018-01-09 11:54 | PCM.PN.REN ---
Patient Problems: Active and Suspected Problems (Last Updated 01/02/18 @ 17:11 by David Montana MD) Diastolic CHF, acute on chronic (Acute) CKD stage 3 secondary to diabetes (Acute) Subjective: edema is somewhat better still present uses 5 L O2 at home. today at 4 L weight is down to 250 lbs - Physical Exam General: Alert, Oriented x3, Cooperative HEENT: Atraumatic, PERRLA, EOMI, Normocephalic Neck: Supple, No JVD, Negative Carotid Bruits Lungs: Clear to auscultation, Normal air movement Cardiovascular: Regular rate, No murmurs Abdomen: Bowel Sounds Present, Soft, Non Tender Extremities: No edema, Capillary Refill Less than 3 Seconds Skin: No rashes, No breakdown Musculoskeletal: No Tenderness to Palpation of Joints or Extremities Neurological: Cranial nerves II-XII grossly intact Psych/Mental Status: Normal Affect, Appropriate Vital Signs Temp Pulse Resp BP Pulse Ox 98.7 F 82 16 111/60 96 01/09/18 08:25 01/09/18 11:02 01/09/18 11:02 01/09/18 08:25 01/09/18 08:25 Oxygen Flow Rate (L/min) 4 Oxygen Delivery Method Nasal Cannula Weight: 114.4 kg Body Mass Index (BMI) 45.4 Intake and Output for Last 24 Hours 01/07/18 01/08/18 01/09/18 23:59 23:59 23:59 Intake Total 908.5 / 908.5 931.3 / 931.3 408.1 / 408.1 Output Total 1850 / 1850 3525 / 3525 1700 / 1700 Balance -941.5 / -941.5 -2593.7 / -2593.7 -1291.9 / -1291.9 Microbiology Past 72 Hours 01/06/18 18:10 Stool Occult Blood (TESS) - Final Stool Occult Blood Positive Laboratory Tests Past 24 Hrs 01/09/18 08:20 Magnesium 1.9 POC Glucose 01/09/18 01/08/18 01/08/18 06:49 22:09 16:32 POC Glucose 213 H 210 H 201 H Medical Necessity - Tobacco Use Smoking Status: Former smoker Tobacco Use: Cigarettes Assessment/Plan All Active Problems (Last Updated 01/02/18 @ 17:11 by David Montana MD) Diastolic CHF, acute on chronic (Acute) CKD stage 3 secondary to diabetes (Acute) CVA (cerebral vascular accident) (Resolved) CVA (cerebral vascular accident) (Resolved) History of GI bleeding (Resolved) TANJA CHF baseline creatinine is around 0.9. today at 1.2. denies any urinary complaints. rise in creatinine is likely related to diuresis CHF. weight is down to 251 lbs. she tells me that her baseline weight is somewhere around 245 lbs. LE edema better. lungs appear relatively clear. continue lasix drip one more day. continue diamox since bicarbonate on higher side. since she has COPD she will likely have more than usual bicarbonate. will add metolazone for today. will add KCL to go with metolazone, lasix and diamox. if better tomorrow, can stop drip
[2018-01-09 11:56] LABS: Bedside Glucose 164 mg/dL (70-110)
[2018-01-09] MEDS: metOLazone 5 MG Tablet PO (12:41)
--- NOTE | 2018-01-09 15:18 | PCM.PN.HOSP ---
Patient Problems: Active and Suspected Problems (Last Updated 01/02/18 @ 17:11 by David Montana MD) Diastolic CHF, acute on chronic (Acute) CKD stage 3 secondary to diabetes (Acute) Subjective: Lower extremity edema is better than yesterday. Overall patient. Breathing is also better currently on 4 L oxygen although her home baseline is 5 L. Patient lost about 4 pounds since yesterday. Currently 252 pounds as per charting. Baseline weight is 245 pounds. Vitals/I&O's: Vital Signs Temp Pulse Resp BP Pulse Ox 98.2 F 74 16 104/45 L 95 01/09/18 14:25 01/09/18 15:04 01/09/18 15:04 01/09/18 14:25 01/09/18 14:25 Oxygen Flow Rate (L/min) 4 Oxygen Delivery Method Nasal Cannula Weight: 252 lb 3.341 oz Body Mass Index (BMI) 45.4 Intake and Output for Last 24 Hours 01/07/18 01/08/18 01/09/18 23:59 23:59 23:59 Intake Total 908.5 / 908.5 931.3 / 931.3 408.1 / 408.1 Output Total 1850 / 1850 3525 / 3525 1700 / 1700 Balance -941.5 / -941.5 -2593.7 / -2593.7 -1291.9 / -1291.9 General: Alert, Oriented x3, Cooperative HEENT: Atraumatic, PERRLA, EOMI, Normocephalic Neck: Supple, No JVD, Negative Carotid Bruits Lungs: No rales, Diminished - Air entry diminished bilaterally., Rhonchi - Mild expiratory rhonchi is present but no rales. Cardiovascular: Regular rate, Normal S1, Normal S2, Murmur - Moderate to severe aortic stenosis Abdomen: Bowel Sounds Present, Soft, Non Tender Extremities: Capillary Refill Less than 3 Seconds, Edema - Lower extremity edema improving Skin: No rashes, No breakdown Musculoskeletal: Arthritic Changes, Muscle Wasting Neurological: Cranial nerves II-XII grossly intact, Deep Tendon Reflexes 2+/4 and Symmetrical, Neuro grossly intact Psych/Mental Status: Normal Affect, Appropriate Microbiology Past 72 Hours 01/06/18 18:10 Stool Stool Occult Blood (TESS) - Final Occult Blood Positive Laboratory Results 01/08/18 16:32: POC Glucose 201 H 01/08/18 22:09: POC Glucose 210 H 01/09/18 06:49: POC Glucose 213 H 01/09/18 08:20: Magnesium 1.9 01/09/18 11:42: POC Glucose 164 H Current Medications Acetaminophen (Tylenol) 650 mg PO Q6H PRN PRN PRN Reason: Mild Pain (scale 0-3)/T>100.7 Last Admin: 01/08/18 07:53 Dose: 650 mg Acetazolamide (Diamox) 250 mg PO BID [facility] Last Admin: 01/09/18 08:30 Dose: 250 mg Albuterol Sulfate (Ventolin Aerosols) 2.5 mg INHALATION Q2H PRN PRN PRN Reason: Shortness of breath, wheezing Albuterol/Ipratropium (Duoneb) 3 ml INHALATION Q4H.RT [facility] Last Admin: 01/09/18 15:04 Dose: 3 ml Atorvastatin Calcium (Lipitor) 10 mg PO QHS [facility] Last Admin: 01/08/18 22:11 Dose: 10 mg Escitalopram Oxalate (Lexapro) 10 mg PO DAILY [facility] Last Admin: 01/09/18 08:31 Dose: 10 mg Ferrous Sulfate (Ferrous Sulfate) 325 mg PO TIDCM [facility] Last Admin: 01/09/18 11:48 Dose: 325 mg Flunisolide (Nasarel Nose [place]) 2 spray NASAL BID [facility] Last Admin: 01/09/18 08:31 Dose: 2 spray Fluticasone Propionate (Flonase Nasal [place]) 1 spray NASAL BID [facility] Last Admin: 01/09/18 08:30 Dose: 1 spray Furosemide 500 mg/ N/A 50 mls @ 1.5 mls/hr CONT INF .[id number] [facility] Last Admin: 01/09/18 09:19 Dose: 1.5 mls/hr Insulin Human Lispro (Humalog Kwikpen (Bkc)) 0 unit SQ ACHS [facility]; Protocol Last Admin: 01/09/18 11:48 Dose: 3 u Magnesium Hydroxide (Milk Of Magnesia) 30 ml PO DAILY PRN PRN Reason: Constipation Last Admin: 01/05/18 18:09 Dose: 30 ml Metoprolol Tartrate (Lopressor (Beta [place])) 50 mg PO BID [facility] Last Admin: 01/09/18 08:31 Dose: 50 mg Ondansetron HCl (Zofran) 4 mg IV Q8H PRN PRN PRN Reason: Nausea Last Admin: 01/03/18 12:51 Dose: 4 mg Pantoprazole Sodium (Protonix) 40 mg PO BID [facility] Last Admin: 01/09/18 08:31 Dose: 40 mg Sodium Chloride () 5 - 30 ml IV UD PRN PRN Reason: SALINE FLUSH Last Admin: 01/07/18 18:40 Dose: 10 ml Sodium Chloride ([place] Nasal [place]) 2 spray NASAL TID PRN PRN PRN Reason: NASAL DRYNESS Last Admin: 01/08/18 11:40 Dose: 2 spray Trazodone HCl (Desyrel) 100 mg PO QHS PRN PRN PRN Reason: SLEEP Last Admin: 01/05/18 22:17 Dose: 100 mg Medical Necessity - Tobacco Use Smoking Status: Former smoker Tobacco Use: Cigarettes Assessment/Plan All Active Problems (Last Updated 01/02/18 @ 17:11 by David Montana MD) Diastolic CHF, acute on chronic (Acute) CKD stage 3 secondary to diabetes (Acute) CVA (cerebral vascular accident) (Resolved) CVA (cerebral vascular accident) (Resolved) History of GI bleeding (Resolved) This is a pleasant 67 years old female patient who 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 1. Acute on chronic hypoxic respiratory failure, improved, currently on her home 5 L of oxygen, secondary to acute on chronic diastolic CHF, acute on chronic anemia: Initially, patient had respiratory distress, and tachypnea. Currently on baseline 5 L oxygen. Acute respiratory failure improved. Initially, patient did not had good free water clearance Lasix 60 mg every 8 hourly. Lasix drip increased to 15 mg/h. Testing Analyst consulted. Patient received 1 dose of Diuril.Diamox was added by housekeeping and laundry team leader. Diamox added for metabolic alkalosis. 1 dose of Zaroxolyn 1 mg given. encourage incentive spirometer. 2. Acute on chronic diastolic CHF on Lasix IV drip, rest as mentioned above: continue with strict I's and O's. residential monitor shows PVCs and short runs of NSVT. Sinus rhythm. Echo in May 2017 reported as EF 60% with normal systolic function. Mild concentric LVH. No regional wall motion abnormality. Normal RV size systolic function. LA moderately enlarged. Moderate TR, RVSP 60 mmHg. Moderately severe aortic stenosis, mean AV gradient 34 mmHg severe focal aortic valve calcification. Discussed with the senior clinical data coordinator, Dr. Xavier. 3. Acute on chronic anemia, history of AVMs, chronic anemia, iron deficient. Patient had total of 2 unit of PRBC transfusion on 01/03 and 01/04. Hemoglobin from 7- 8.7, 8.2 4. Indeterminate troponin second to demand ischemia. 5. Aortic stenosis, moderately severe: Maintain fluid balance. Patient had [facility] scheduled for evaluation of moderately severe aortic stenosis 6. Severe COPD, with chronic respiratory failure, with moderate to severe pulmonary hypertension with moderate TR probably from both left side heart failure and COPD: continue on breathing treatment, aggressive pulmonary toileting. 7. Hypertension, stable, on metoprolol, continue to monitor vitals. 8. Type 2 diabetes mellitus, sugars are fairly uncontrolled, metformin withheld, will continue on ADA diet, Accu-Cheks, increase insulin sliding scale to high-dose 9. morbid obesity, BMI 46, diet and exercise is recommended 10. DVT prophylaxis -SCDs. Plan of management, medications and left findings discussed with the patient. Microbiology Past 72 Hours 01/06/18 18:10 Stool Stool Occult Blood (TESS) - Final Occult Blood Positive Laboratory Results 01/08/18 05:45: WBC 8.3, RBC 3.15 L, Hgb 8.6 L, Hct 31.6 L, MCV 100.3 H, MCH 27.3, MCHC 27.2 L, RDW 16.1 H, RDW Differential 56.3 H, Plt Count 421, MPV 9.9, Immature Gran % (Auto) 0.700, Neut % (Auto) 80.9 H, Lymph % (Auto) 6.3 L, [place] % (Auto) 9.2, Eos % (Auto) 2.7, Baso % (Auto) 0.2, Absolute Neuts (auto) 6.7, Absolute Lymphs (auto) 0.52 L, Total Counted Not Reportable, Differential Comment SCANNED, Hypochromasia 3+, Anisocytosis 2+ 01/08/18 05:45: Sodium 136, Potassium 3.6, Chloride 87 L, Carbon Dioxide 45.0 H, Anion Gap 4 L, BUN 44 H, Creatinine 1.21 H, Estim Creat Clear Calc 36.30, Est GFR (MDRD) Af Amer 57 L, Est GFR (MDRD) Non-Af 47 L, BUN/Creatinine Ratio 36.4 H, Glucose 159 H, Calcium 8.7 Clinical Impression(s) from Imaging Studies Chest X-Ray 01/02/18 15:13 IMPRESSION: Mild perihilar interstitial and vascular prominence in the lungs may be related to technique. Differential considerations include mild CHF, or mild pneumonitis. There is no focal infiltrate and no visible effusion. Chest X-Ray 01/07/18 05:55 IMPRESSION: Findings suggestive of a mild degree of CHF. Code Visit Inpatient E&M: 00385 Subs Hosp L3
--- NOTE | 2018-01-09 15:25 | PN_ITS ---
Patient Problems: Active and Suspected Problems (Last Updated 01/02/18 @ 17:11 by David Montana MD) Diastolic CHF, acute on chronic (Acute) CKD stage 3 secondary to diabetes (Acute) Subjective: Lower extremity edema is better than yesterday. Overall patient. Breathing is also better currently on 4 L oxygen although her home baseline is 5 L. Patient lost about 4 pounds since yesterday. Currently 252 pounds as per charting. Baseline weight is 245 pounds. Vitals/I&O's: Vital Signs Temp Pulse Resp BP Pulse Ox 98.2 F 74 16 104/45 L 95 01/09/18 14:25 01/09/18 15:04 01/09/18 15:04 01/09/18 14:25 01/09/18 14:25 Oxygen Flow Rate (L/min) 4 Oxygen Delivery Method Nasal Cannula Weight: 252 lb 3.341 oz Body Mass Index (BMI) 45.4 Intake and Output for Last 24 Hours 01/07/18 01/08/18 01/09/18 23:59 23:59 23:59 Intake Total 908.5 / 908.5 931.3 / 931.3 408.1 / 408.1 Output Total 1850 / 1850 3525 / 3525 1700 / 1700 Balance -941.5 / -941.5 -2593.7 / -2593.7 -1291.9 / -1291.9 General: Alert, Oriented x3, Cooperative HEENT: Atraumatic, PERRLA, EOMI, Normocephalic Neck: Supple, No JVD, Negative Carotid Bruits Lungs: No rales, Diminished - Air entry diminished bilaterally., Rhonchi - Mild expiratory rhonchi is present but no rales. Cardiovascular: Regular rate, Normal S1, Normal S2, Murmur - Moderate to severe aortic stenosis Abdomen: Bowel Sounds Present, Soft, Non Tender Extremities: Capillary Refill Less than 3 Seconds, Edema - Lower extremity edema improving Skin: No rashes, No breakdown Musculoskeletal: Arthritic Changes, Muscle Wasting Neurological: Cranial nerves II-XII grossly intact, Deep Tendon Reflexes 2+/4 and Symmetrical, Neuro grossly intact Psych/Mental Status: Normal Affect, Appropriate Microbiology Past 72 Hours 01/06/18 18:10 Stool Stool Occult Blood (TESS) - Final Occult Blood Positive Laboratory Results 01/08/18 16:32: POC Glucose 201 H 01/08/18 22:09: POC Glucose 210 H 01/09/18 06:49: POC Glucose 213 H 01/09/18 08:20: Magnesium 1.9 01/09/18 11:42: POC Glucose 164 H Current Medications Acetaminophen (Tylenol) 650 mg PO Q6H PRN PRN PRN Reason: Mild Pain (scale 0-3)/T>100.7 Last Admin: 01/08/18 07:53 Dose: 650 mg Acetazolamide (Diamox) 250 mg PO BID [facility] Last Admin: 01/09/18 08:30 Dose: 250 mg Albuterol Sulfate (Ventolin Aerosols) 2.5 mg INHALATION Q2H PRN PRN PRN Reason: Shortness of breath, wheezing Albuterol/Ipratropium (Duoneb) 3 ml INHALATION Q4H.RT [facility] Last Admin: 01/09/18 15:04 Dose: 3 ml Atorvastatin Calcium (Lipitor) 10 mg PO QHS [facility] Last Admin: 01/08/18 22:11 Dose: 10 mg Escitalopram Oxalate (Lexapro) 10 mg PO DAILY [facility] Last Admin: 01/09/18 08:31 Dose: 10 mg Ferrous Sulfate (Ferrous Sulfate) 325 mg PO TIDCM [facility] Last Admin: 01/09/18 11:48 Dose: 325 mg Flunisolide (Nasarel Nose [place]) 2 spray NASAL BID [facility] Last Admin: 01/09/18 08:31 Dose: 2 spray Fluticasone Propionate (Flonase Nasal [place]) 1 spray NASAL BID [facility] Last Admin: 01/09/18 08:30 Dose: 1 spray Furosemide 500 mg/ N/A 50 mls @ 1.5 mls/hr CONT INF .[id number] [facility] Last Admin: 01/09/18 09:19 Dose: 1.5 mls/hr Insulin Human Lispro (Humalog Kwikpen (Bkc)) 0 unit SQ ACHS [facility]; Protocol Last Admin: 01/09/18 11:48 Dose: 3 u Magnesium Hydroxide (Milk Of Magnesia) 30 ml PO DAILY PRN PRN Reason: Constipation Last Admin: 01/05/18 18:09 Dose: 30 ml Metoprolol Tartrate (Lopressor (Beta [place])) 50 mg PO BID [facility] Last Admin: 01/09/18 08:31 Dose: 50 mg Ondansetron HCl (Zofran) 4 mg IV Q8H PRN PRN PRN Reason: Nausea Last Admin: 01/03/18 12:51 Dose: 4 mg Pantoprazole Sodium (Protonix) 40 mg PO BID [facility] Last Admin: 01/09/18 08:31 Dose: 40 mg Sodium Chloride () 5 - 30 ml IV UD PRN PRN Reason: SALINE FLUSH Last Admin: 01/07/18 18:40 Dose: 10 ml Sodium Chloride ([place] Nasal [place]) 2 spray NASAL TID PRN PRN PRN Reason: NASAL DRYNESS Last Admin: 01/08/18 11:40 Dose: 2 spray Trazodone HCl (Desyrel) 100 mg PO QHS PRN PRN PRN Reason: SLEEP Last Admin: 01/05/18 22:17 Dose: 100 mg Medical Necessity - Tobacco Use Smoking Status: Former smoker Tobacco Use: Cigarettes Assessment/Plan All Active Problems (Last Updated 01/02/18 @ 17:11 by David Montana MD) Diastolic CHF, acute on chronic (Acute) CKD stage 3 secondary to diabetes (Acute) CVA (cerebral vascular accident) (Resolved) CVA (cerebral vascular accident) (Resolved) History of GI bleeding (Resolved) This is a pleasant 67 years old female patient 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 1. Acute on chronic hypoxic respiratory failure, improved, currently on her home 5 L of oxygen, secondary to acute on chronic diastolic CHF, acute on chronic anemia: Initially, patient had respiratory distress, and tachypnea. Currently on baseline 5 L oxygen. Acute respiratory failure improved. Initially, patient did not had good free water clearance Lasix 60 mg every 8 hourly. Lasix drip increased to 15 mg/h. Barrel Maker consulted. Patient received 1 dose of Diuril.Diamox was added by senior marketing manager. Diamox added for metabolic alkalosis. 1 dose of Zaroxolyn 1 mg given. encourage incentive spirometer. 2. Acute on chronic diastolic CHF on Lasix IV drip, rest as mentioned above: continue with strict I's and O's. nurse monitoring shows PVCs and short runs of NSVT. Sinus rhythm. Echo in May 2017 reported as EF 60% with normal systolic function. Mild concentric LVH. No regional wall motion abnormality. Normal RV size systolic function. LA moderately enlarged. Moderate TR, RVSP 60 mmHg. Moderately severe aortic stenosis, mean AV gradient 34 mmHg severe focal aortic valve calcification. Discussed with the restaurant kitchen and service manager, Dr. Xavier. 3. Acute on chronic anemia, history of AVMs, chronic anemia, iron deficient. Patient had total of 2 unit of PRBC transfusion on 01/03 and 01/04. Hemoglobin from 7- 8.7, 8.2 4. Indeterminate troponin second to demand ischemia. 5. Aortic stenosis, moderately severe: Maintain fluid balance. Patient had [facility] scheduled for evaluation of moderately severe aortic stenosis 6. Severe COPD, with chronic respiratory failure, with moderate to severe pulmonary hypertension with moderate TR probably from both left side heart failure and COPD: continue on breathing treatment, aggressive pulmonary toileting. 7. Hypertension, stable, on metoprolol, continue to monitor vitals. 8. Type 2 diabetes mellitus, sugars are fairly uncontrolled, metformin withheld, will continue on ADA diet, Accu-Cheks, increase insulin sliding scale to high- dose 9. morbid obesity, BMI 46, diet and exercise is recommended 10. DVT prophylaxis -SCDs. Plan of management, medications and left findings discussed with the patient. Microbiology Past 72 Hours 01/06/18 18:10 Stool Stool Occult Blood (TESS) - Final Occult Blood Positive Laboratory Results 01/08/18 05:45: WBC 8.3, RBC 3.15 L, Hgb 8.6 L, Hct 31.6 L, MCV 100.3 H, MCH 27.3, MCHC 27.2 L, RDW 16.1 H, RDW Differential 56.3 H, Plt Count 421, MPV 9.9, Immature Gran % (Auto) 0.700, Neut % (Auto) 80.9 H, Lymph % (Auto) 6.3 L, [place] % (Auto) 9.2, Eos % (Auto) 2.7, Baso % (Auto) 0.2, Absolute Neuts (auto) 6.7, Absolute Lymphs (auto) 0.52 L, Total Counted Not Reportable, Differential Comment SCANNED, Hypochromasia 3+, Anisocytosis 2+ 01/08/18 05:45: Sodium 136, Potassium 3.6, Chloride 87 L, Carbon Dioxide 45.0 H, Anion Gap 4 L, BUN 44 H, Creatinine 1.21 H, Estim Creat Clear Calc 36.30, Est GFR (MDRD) Af Amer 57 L, Est GFR (MDRD) Non-Af 47 L, BUN/Creatinine Ratio 36.4 H , Glucose 159 H, Calcium 8.7 Clinical Impression(s) from Imaging Studies Chest X-Ray 01/02/18 15:13 IMPRESSION: Mild perihilar interstitial and vascular prominence in the lungs may be related to technique. Differential considerations include mild CHF, or mild pneumonitis. There is no focal infiltrate and no visible effusion. Chest X-Ray 01/07/18 05:55 IMPRESSION: Findings suggestive of a mild degree of CHF. Code Visit Inpatient E&M: 53437 Subs Hosp L3
[2018-01-09 16:56] LABS: Bedside Glucose 160 mg/dL (70-110)
[2018-01-09 18:08] LABS: BUN 50 mg/dL (7-18); Calcium,Total 9.1 mg/dL (8.5-10.1); Chloride 88 mmol/L (98-107); Creatinine, Serum 1.02 mg/dL (0.55-1.02); EST Glomerular Filtration Rate 57 mL/min (>60); Est Glom Filt Rate - Afr Amer 69 mL/min (>60); Estimated Creatinine Clearance 43.06 ml/min; Glucose 160 mg/dL (74-106); Potassium 3.8 mmol/L (3.5-5.1); Sodium Level 139 mmol/L (136-145)
[2018-01-09 18:09] LABS: Carbon Dioxide > 45.0 mmol/L (21.0-32.0)
[2018-01-09] MEDS: Acetaminophen 325 MG Tablet 650 MG PO (19:37)
[2018-01-09] MEDS: Ibuprofen 400 MG Tablet PO (21:46)
[2018-01-09] MEDS: Atorvastatin Calcium 10 MG Tablet PO (21:47)
[2018-01-09 22:26] LABS: Bedside Glucose 192 mg/dL (70-110)
[2018-01-10] VITALS (21 sets, daily range): BP systolic 104–127; BP diastolic 45–60; PULSE 68–81; RESP 12–20; TEMP 36.1–36.8; O2SAT 92–100
[2018-01-10] MEDS: Sodium Chloride 0.65% 1 SPRAY SPRAY.BTL 2 SPRAY NASAL ×2 (04:03→21:00)
[2018-01-10 06:51] LABS: Bedside Glucose 209 mg/dL (70-110)
[2018-01-10] MEDS: Ipratropium/Albuterol Sulfate 3 ML AMPUL.NEB INHALATION ×5 (07:16→22:08)
[2018-01-10 07:44] LABS: Absolute Lymphocyte Count 0.61 X10^3/ul (0.83-4.51); Absolute Neutrophil Count 9.5 X10^3/uL (2.0-7.7); Basophil# 0.03 X10^3/uL; Basophil% 0.3 % (0-1); Eosinophil# 0.26 X10^3/uL; Eosinophils% 2.3 % (0-5); Hematocrit 33.5 % (37-47); Lymphocyte # 0.61 X10^3/ul (4.0); Lymphocyte % 5.5 % (19-41); Mean Corp Hgb Conc 26.9 g/gl (32-36); Mean Corpuscular Volume 100.6 fL (81-99); Mean Platelet Vol. 10.2 fl (6.2-12.0); Monocyte# 0.75 X10^3/uL; Monocyte% 6.7 % (0-10); Neutrophil # 9.47 X10^3/uL (2.7-7.7); Neutrophil % 84.8 % (47-70); Platelet Count 490 K/mm3 (150-450); RBC Distribution Width CV 15.4 % (11.6-14.6); RBC Distribution Width SD 55.2 fl (35.1-43.9); Red Blood Count 3.33 M/mm3 (4.2-5.4); White Blood Count 11.2 K/mm3 (4.4-11.0)
[2018-01-10 07:59] LABS: POSITIVE COUNT NO; POSITIVE DIFFERENTIAL NO; POSITIVE MORPHOLOGY NO
[2018-01-10 08:10] LABS: BUN 59 mg/dL (7-18); BUN/Creat Ratio 42.8 RATIO (10-20); Calcium,Total 9.1 mg/dL (8.5-10.1); Carbon Dioxide > 45.0 mmol/L (21.0-32.0); Chloride 86 mmol/L (98-107); Creatinine, Serum 1.38 mg/dL (0.55-1.02); EST Glomerular Filtration Rate 40 mL/min (>60); Est Glom Filt Rate - Afr Amer 49 mL/min (>60); Estimated Creatinine Clearance 31.83 ml/min; Glucose 198 mg/dL (74-106); Potassium 3.7 mmol/L (3.5-5.1); Sodium Level 138 mmol/L (136-145)
[2018-01-10] MEDS: Insulin Lispro 100 UNIT/ML INSULN.PEN SQ ×4 (08:46→21:00)
[2018-01-10] MEDS: AcetaZOLAMIDE 250 MG Tablet PO ×2 (08:48→21:01)
[2018-01-10] MEDS: Ferrous Sulfate 325 MG Tablet PO ×3 (08:48→17:16)
[2018-01-10] MEDS: Escitalopram Oxalate 10 MG Tablet PO (08:49)
[2018-01-10] MEDS: Fluticasone 0.05% 1 SPRAY NASAL.SRY NASAL ×2 (08:49→20:57)
[2018-01-10] MEDS: Metoprolol Tartrate 50 MG Tablet PO ×2 (08:49→21:01)
[2018-01-10] MEDS: Pantoprazole Sodium 40 MG Tablet PO ×2 (08:50→21:01)
[2018-01-10 11:21] LABS: Bedside Glucose 262 mg/dL (70-110)
--- NOTE | 2018-01-10 12:15 | PN.RENAL_ITS ---
Patient Problems: Active and Suspected Problems (Last Updated 01/02/18 @ 17:11 by David Montana MD) Diastolic CHF, acute on chronic (Acute) CKD stage 3 secondary to diabetes (Acute) Subjective: c/o excess somnolence today breathing is about the same O2 requirements same as before - Physical Exam General: Alert, Oriented x3, Cooperative HEENT: Atraumatic, PERRLA, EOMI, Normocephalic Neck: Supple, No JVD, Negative Carotid Bruits Lungs: Clear to auscultation, Normal air movement Cardiovascular: Regular rate, No murmurs Abdomen: Bowel Sounds Present, Soft, Non Tender Extremities: No edema, Capillary Refill Less than 3 Seconds Skin: No rashes, No breakdown Musculoskeletal: No Tenderness to Palpation of Joints or Extremities Neurological: Cranial nerves II-XII grossly intact Psych/Mental Status: Normal Affect, Appropriate Vital Signs Temp Pulse Resp BP Pulse Ox 98.2 F 70 18 111/58 L 92 01/10/18 08:53 01/10/18 11:22 01/10/18 11:22 01/10/18 08:53 01/10/18 08:53 Oxygen Flow Rate (L/min) 6 Oxygen Delivery Method Nasal Cannula Weight: 112.6 kg Body Mass Index (BMI) 45.4 Intake and Output for Last 24 Hours 01/08/18 01/09/18 01/10/18 23:59 23:59 23:59 Intake Total 931.3 / 931.3 988.4 / 988.4 620.5 / 620.5 Output Total 3525 / 3525 3600 / 3600 2700 / 2700 Balance -2593.7 / -2593.7 -2611.6 / -2611.6 -2079.5 / -2079.5 Laboratory Tests Past 24 Hrs 01/09/18 01/10/18 01/10/18 16:33 06:30 06:30 WBC 11.2 H RBC 3.33 L Hgb 9.0 L Hct 33.5 L MCV 100.6 H MCH 27.0 MCHC 26.9 L RDW 15.4 H RDW Differential 55.2 H Plt Count 490 H MPV 10.2 Immature Gran % (Auto) 0.400 Neut % (Auto) 84.8 H Lymph % (Auto) 5.5 L [place] % (Auto) 6.7 Eos % (Auto) 2.3 Baso % (Auto) 0.3 Absolute Neuts (auto) 9.5 H Absolute Lymphs (auto) 0.61 L Total Counted Not Reportable Sodium 139 138 Potassium 3.8 3.7 Chloride 88 L 86 L Carbon Dioxide > 45.0 H* > 45.0 H* Anion Gap TNP TNP BUN 50 H 59 H Creatinine 1.02 1.38 H Estim Creat Clear Calc 43.06 31.83 Est GFR (MDRD) Af Amer 69 49 L Est GFR (MDRD) Non-Af 57 L 40 L BUN/Creatinine Ratio 49.0 H 42.8 H Glucose 160 H 198 H Calcium 9.1 9.1 POC Glucose 01/10/18 01/10/18 01/09/18 11:15 06:46 21:39 POC Glucose 262 H 209 H 192 H 01/09/18 16:44 POC Glucose 160 H Medical Necessity - Tobacco Use Smoking Status: Former smoker Tobacco Use: Cigarettes Assessment/Plan All Active Problems (Last Updated 01/02/18 @ 17:11 by David Montana MD) Diastolic CHF, acute on chronic (Acute) CKD stage 3 secondary to diabetes (Acute) CVA (cerebral vascular accident) (Resolved) CVA (cerebral vascular accident) (Resolved) History of GI bleeding (Resolved) TANJA CHF baseline creatinine is around 0.9. today at 1.5. denies any urinary complaints. rise in creatinine is likely related to diuresis CHF. weight is down to 246 lbs. she tells me that her baseline weight is somewhere around 245 lbs. LE edema better. lungs appear relatively clear. dc lasix drip metolazone already held change back to lasix 40 mg IV BID equivalent to home dose of lasix which is 80 mg BID sleepiness. ? Respiratory acidosis. patient has known history of COPD. She also has significant contraction alkalosis from diuresis. Likely PCO2 is high. suggest ABG if she has significant drowsiness. continue diamox for now d/w Dr Medrano
[2018-01-10 12:16] LABS: Base Excess 30 mmol/L (-2 to +2); Bicarbonate 55.2 mmol/L (22-26); Blood Gas Specimen Type ART; O2 Delivery Device Nasal Can; PO2 104 mmHG (75-100); SITE L Brachial; SO2 97 % (95-99); Time Given 1145; Total Carbon Dioxide > 50 mmol/L; pH 7.35 (7.35-7.45)
--- NOTE | 2018-01-10 13:45 | CPS ---
upon entering pt's room pt was holding Bipap mask on face. Pt stated she was not going to wear Bipap anymore and needed her nasal canula. pt was placed back on 4 lpm nasal canula. Nurse aware of change and sent txt message with change.
--- NOTE | 2018-01-10 13:47 | CPS ---
pt changed to 50% venti mask from nasal canula for S.O.B. Sat 95% on Venti mask. Pt refuses to use Bipap. Nurse in room and aware of change.
--- NOTE | 2018-01-10 16:57 | PCM.PN.CARD ---
Subjectve: The patient was evaluated earlier this day. The patient has had increased diuresis. The patient has had some improvement with respect to her respiratory status/breathing and her lower extremity edema. Objective: Vital Signs Temp Pulse Resp BP Pulse Ox 98.3 F 78 16 127/58 H 98 01/10/18 14:50 01/10/18 15:07 01/10/18 15:07 01/10/18 14:50 01/10/18 15:07 Oxygen Flow Rate (L/min) 4 Oxygen Delivery Method Venturi Mask Weight: 248 lb 3.848 oz Body Mass Index (BMI) 45.4 Intake and Output for Last 24 Hours 01/08/18 01/09/18 01/10/18 23:59 23:59 23:59 Intake Total 931.3 / 931.3 988.4 / 988.4 620.5 / 620.5 Output Total 3525 / 3525 3600 / 3600 2700 / 2700 Balance -2593.7 / -2593.7 -2611.6 / -2611.6 -2079.5 / -2079.5 General: Awake, Alert, Oriented x 3, Cooperative, No Acute Distress HEENT: Atraumatic, Normocephalic, PERRL, EOMI, Sclera Non Icteric Oral: Moist Mucosa Neck: Supple, Good ROM, No JVD Lungs: - - Managed inspiratory effort. Cardiovascular: Regular Rhythm, Normal S1, Normal S2 Abdomen: Bowel Sounds Present, Soft, Non Tender Extremities: Moderate RLE Edema, Moderate LLE Edema 01/09/18 16:33: Sodium 139, Potassium 3.8, Chloride 88 L, Carbon Dioxide > 45.0 H*, Anion Gap TNP, BUN 50 H, Creatinine 1.02, Est GFR (MDRD) Af Amer 69, Est GFR (MDRD) Non-Af 57 L, BUN/Creatinine Ratio 49.0 H, Glucose 160 H, Calcium 9.1 01/10/18 06:30: WBC 11.2 H, RBC 3.33 L, Hgb 9.0 L, Hct 33.5 L, MCV 100.6 H, MCH 27.0, MCHC 26.9 L, RDW 15.4 H, RDW Differential 55.2 H, Plt Count 490 H, MPV 10.2, Immature Gran % (Auto) 0.400, Neut % (Auto) 84.8 H, Lymph % (Auto) 5.5 L, [place] % (Auto) 6.7, Eos % (Auto) 2.3, Baso % (Auto) 0.3, Absolute Neuts (auto) 9.5 H, Total Counted Not Reportable 01/10/18 06:30: Sodium 138, Potassium 3.7, Chloride 86 L, Carbon Dioxide > 45.0 H*, Anion Gap TNP, BUN 59 H, Creatinine 1.38 H, Est GFR (MDRD) Af Amer 49 L, Est GFR (MDRD) Non-Af 40 L, BUN/Creatinine Ratio 42.8 H, Glucose 198 H, Calcium 9.1 01/10/18 11:55: pH 7.35, Bicarbonate Actual 55.2 H, POC Total CO2 > 50, Base Excess 30 H, O2 Saturation 97, ABG pCO2 100.0 H*, ABG pO2 104 H, Luis Fernando Test NA Rhythm: Sinus rhythm Medical Necessity - Tobacco Use Smoking Status: Former smoker Tobacco Use: Cigarettes Assessment/Plan 1. Acute on chronic diastolic mediated CHF At the present time patient presents with findings compatible with acute on chronic diastolic mediated CHF. The patient is now receiving pulse dose IV Lasix and oral metolazone therapy. She is also receiving Diamox based upon her acid-base changes. She will continue oxygen support. She is also being followed by nephrology. 2. Aortic valve stenosis She does have a history of aortic valve stenosis. There is somewhat of a discrepancy between her transthoracic echocardiogram and her diagnostic cardiac catheterization. He has been evaluated at the [facility] [place] for her aortic valve stenosis for consideration for TAVR thus far they have not proceeded with this procedure. A follow-up transthoracic echocardiogram was performed. Her aortic valve, is not well visualized, however, spectral Doppler suggest moderately severe aortic valve stenosis. 3. Pulmonary hypertension This may be secondary to not only her cardiovascular disease but her pulmonary disease with her COPD, etc. This can lead to cor pulmonale and right heart failure. He will need continued pulmonary support and medical therapy which does include her diuretic therapy. The follow-up echocardiogram, secondary to being a technically diminished quality study, was unable to estimate the RV systolic pressure/right sided pressures. 4. Hyperlipidemia She will continue lipid-lowering therapy as deemed appropriate. 5. Hypertension She will continue antihypertensive therapy with adjustment as needed. 6. Diabetes mellitus She will continue under the care of internal medicine. 7. COPD She does have a history of COPD. She will need continue pulmonary evaluation care. She is on O2 therapy. 8. Anemia Her H/H is improved s/p additional PRBCs. Hopefully this will assist her O2 carrying capacity. This note was generated with [employer] software. It may contain incorrect words, spelling, and punctuation that were not noted in checking the note before signing.
[2018-01-10] MEDS: Furosemide 40 MG/4 ML Vial IV (17:16)
[2018-01-10] MEDS: 0.9% NaCl Peripheral Flush Adult/Peds IV (17:16)
[2018-01-10 17:36] LABS: Bedside Glucose 154 mg/dL (70-110)
[2018-01-10] MEDS: Ibuprofen 400 MG Tablet PO ×2 (17:45→23:56)
--- NOTE | 2018-01-10 17:51 | PCM.PN.HOSP ---
Patient Problems: Active and Suspected Problems (Last Updated 01/02/18 @ 17:11 by David Montana MD) Diastolic CHF, acute on chronic (Acute) CKD stage 3 secondary to diabetes (Acute) Subjective: Patient was seen and examined in the morning. Nursing staff For increased somnolence/lethargy. Patient said she was lethargic sleepy because she could not sleep yesterday. Patient is on IV Lasix drip which is discontinued today and transition to intermittent/post Lasix. Patient was also given Zaroxolyn and Diamox. Bicarb more than 45. ABG ordered ABG reported PCO2 100, PO2 104 but pH 7.35 suggesting compensated chronic respiratory acidosis. Started on BiPAP. Objective: General: Alert, Oriented x3, Cooperative HEENT: Atraumatic, PERRLA, EOMI, Normocephalic Neck: Supple, No JVD, Negative Carotid Bruits Lungs: Air entry diminished bilaterally but has improved.Mild expiratory rhonchi is present but no rales. Cardiovascular: Regular rate, Normal S1, Normal S2, Murmur - Moderate to severe aortic stenosis. PVCs on monitor Abdomen: Bowel Sounds Present, Soft, Non Tender Extremities: Capillary Refill Less than 3 Seconds, Edema - Lower extremity edema improving Skin: No rashes, No breakdown Musculoskeletal: Arthritic Changes, Muscle Wasting Neurological: Cranial nerves II-XII grossly intact, Deep Tendon Reflexes 2+/4 and Symmetrical, Neuro grossly intact Psych/Mental Status: Normal Affect, Appropriate Vitals/I&O's: Vital Signs Temp Pulse Resp BP Pulse Ox 98.3 F 72 18 110/60 94 01/10/18 17:25 01/10/18 17:25 01/10/18 17:25 01/10/18 17:25 01/10/18 17:25 Oxygen Flow Rate (L/min) 5 Oxygen Delivery Method Nasal Cannula Weight: 248 lb 3.848 oz Body Mass Index (BMI) 45.4 Intake and Output for Last 24 Hours 01/08/18 01/09/18 01/10/18 23:59 23:59 23:59 Intake Total 931.3 / 931.3 988.4 / 988.4 880.5 / 880.5 Output Total 3525 / 3525 3600 / 3600 3450 / 3450 Balance -2593.7 / -2593.7 -2611.6 / -2611.6 -2569.5 / -2569.5 Laboratory Results 01/09/18 16:33: Sodium 139, Potassium 3.8, Chloride 88 L, Carbon Dioxide > 45.0 H*, Anion Gap TNP, BUN 50 H, Creatinine 1.02, Estim Creat Clear Calc 43.06, Est GFR (MDRD) Af Amer 69, Est GFR (MDRD) Non-Af 57 L, BUN/Creatinine Ratio 49.0 H, Glucose 160 H, Calcium 9.1 01/09/18 21:39: POC Glucose 192 H 01/10/18 06:30: WBC 11.2 H, RBC 3.33 L, Hgb 9.0 L, Hct 33.5 L, MCV 100.6 H, MCH 27.0, MCHC 26.9 L, RDW 15.4 H, RDW Differential 55.2 H, Plt Count 490 H, MPV 10.2, Immature Gran % (Auto) 0.400, Neut % (Auto) 84.8 H, Lymph % (Auto) 5.5 L, [place] % (Auto) 6.7, Eos % (Auto) 2.3, Baso % (Auto) 0.3, Absolute Neuts (auto) 9.5 H, Absolute Lymphs (auto) 0.61 L, Total Counted Not Reportable 01/10/18 06:30: Sodium 138, Potassium 3.7, Chloride 86 L, Carbon Dioxide > 45.0 H*, Anion Gap TNP, BUN 59 H, Creatinine 1.38 H, Estim Creat Clear Calc 31.83, Est GFR (MDRD) Af Amer 49 L, Est GFR (MDRD) Non-Af 40 L, BUN/Creatinine Ratio 42.8 H, Glucose 198 H, Calcium 9.1 01/10/18 06:46: POC Glucose 209 H 01/10/18 11:15: POC Glucose 262 H 01/10/18 11:55: Specimen Type ART, Sample Site L Brachial, pH 7.35, Bicarbonate Actual 55.2 H, POC Total CO2 > 50, Base Excess 30 H, O2 Saturation 97, ABG pCO2 100.0 H*, ABG pO2 104 H, Luis Fernando Test NA, O2 Delivery Device Nasal Can, Liter Flow 6.0, Blood Gas Notified Whom [facility], Blood Gas Notified Time 1144 01/10/18 17:14: POC Glucose 154 H Current Medications Acetaminophen (Tylenol) 650 mg PO Q6H PRN PRN PRN Reason: Mild Pain (scale 0-3)/T>100.7 Last Admin: 01/09/18 19:37 Dose: 650 mg Acetazolamide (Diamox) 250 mg PO BID [facility] Last Admin: 01/10/18 08:48 Dose: 250 mg Albuterol Sulfate (Ventolin Aerosols) 2.5 mg INHALATION Q2H PRN PRN PRN Reason: Shortness of breath, wheezing Albuterol/Ipratropium (Duoneb) 3 ml INHALATION Q4H.RT [facility] Last Admin: 01/10/18 15:07 Dose: 3 ml Atorvastatin Calcium (Lipitor) 10 mg PO QHS [facility] Last Admin: 01/09/18 21:47 Dose: 10 mg Escitalopram Oxalate (Lexapro) 10 mg PO DAILY [facility] Last Admin: 01/10/18 08:49 Dose: 10 mg Ferrous Sulfate (Ferrous Sulfate) 325 mg PO TIDCM [facility] Last Admin: 01/10/18 17:16 Dose: 325 mg Flunisolide (Nasarel Nose [place]) 2 spray NASAL BID [facility] Last Admin: 01/10/18 08:50 Dose: 2 spray Fluticasone Propionate (Flonase Nasal [place]) 1 spray NASAL BID [facility] Last Admin: 01/10/18 08:49 Dose: 1 spray Furosemide (Lasix) 40 mg IV BIDLX [facility] Last Admin: 01/10/18 17:16 Dose: 40 mg Ibuprofen (Motrin) 400 mg PO Q6H PRN PRN PRN Reason: MILD PAIN (1-3/10) Last Admin: 01/10/18 17:45 Dose: 400 mg Insulin Human Lispro (Humalog Kwikpen (Bkc)) 0 unit SQ ACHS [facility]; Protocol Last Admin: 01/10/18 17:15 Dose: 3 u Magnesium Hydroxide (Milk Of Magnesia) 30 ml PO DAILY PRN PRN Reason: Constipation Last Admin: 01/05/18 18:09 Dose: 30 ml Metoprolol Tartrate (Lopressor (Beta Jeffery)) 50 mg PO BID [facility] Last Admin: 01/10/18 08:49 Dose: 50 mg Ondansetron HCl (Zofran) 4 mg IV Q8H PRN PRN PRN Reason: Nausea Last Admin: 01/03/18 12:51 Dose: 4 mg Pantoprazole Sodium (Protonix) 40 mg PO BID [facility] Last Admin: 01/10/18 08:50 Dose: 40 mg Sodium Chloride () 5 - 30 ml IV UD PRN PRN Reason: SALINE FLUSH Last Admin: 01/10/18 17:16 Dose: 10 ml Sodium Chloride ([place] Nasal [place]) 2 spray NASAL TID PRN PRN PRN Reason: NASAL DRYNESS Last Admin: 01/10/18 04:03 Dose: 2 spray Trazodone HCl (Desyrel) 100 mg PO QHS PRN PRN PRN Reason: SLEEP Last Admin: 01/05/18 22:17 Dose: 100 mg Medical Necessity - Tobacco Use Smoking Status: Former smoker Tobacco Use: Cigarettes Assessment/Plan All Active Problems (Last Updated 01/02/18 @ 17:11 by David Montana MD) Diastolic CHF, acute on chronic (Acute) CKD stage 3 secondary to diabetes (Acute) CVA (cerebral vascular accident) (Resolved) CVA (cerebral vascular accident) (Resolved) History of GI bleeding (Resolved) This is a pleasant 67 years old female patient 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 1. Acute on chronic hypoxic respiratory failure, improved, currently on her home 5 L of oxygen, secondary to acute on chronic diastolic CHF, acute on chronic anemia: Initially, patient had respiratory distress, and tachypnea. Currently on baseline 5 L oxygen. Acute respiratory failure improved. Initially, patient did not had good free water clearance Lasix 60 mg every 8 hourly. Patient was on Lasix 50 mg/h which is discontinued today. Patient also had IV Diuril and then Zaroxolyn. Diamox was added by programmable logic controller assembler. encourage incentive spirometer. Weight is 246. Lower extremity edema is better. Lasix discontinued. On Lasix 40 ml IV twice daily which is equivalent to Lasix 80 mg oral twice daily. 2. Acute on chronic respiratory acidosis with compensated metabolic alkalosis exacerbated by diuretics: Patient baseline PCO2 is about 80. Currently PCO2 100 but pH is 7.35. Her baseline pH is 7.35. Started on BiPAP 12/5. Follow-up ABG after 1 hour. Discussed with the respiratory therapist. Discontinue Zaroxolyn. On Diamox. As mentioned above Lasix IV discontinued. Lower BMP. 3. Acute on chronic diastolic CHF on Lasix IV drip, rest as mentioned above: continue with strict I's and O's. 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 Sinus rhythm. Echo in May 2017 reported as EF 60% with normal systolic function. Mild concentric LVH. No regional wall motion abnormality. Normal RV size systolic function. LA moderately enlarged. Moderate TR, RVSP 60 mmHg. Moderately severe aortic stenosis, mean AV gradient 34 mmHg severe focal aortic valve calcification. Discussed with the seam checker, Dr. Xavier. 4 Acute kidney injury probably from diuretics on baseline CKD stage III secondary diabetes: Creatinine today is 1.3 8 from 1.02 yesterday. Acute on chronic anemia, history of AVMs, chronic anemia, iron deficient. Patient had total of 2 unit of PRBC transfusion on 01/03 and 01/04. Hemoglobin from 7- 8.7, 8.2, 9.0 probably hemoconcentration. Indeterminate troponin second to demand ischemia. 5. Aortic stenosis, moderately severe: Maintain fluid balance. Patient had [facility] scheduled for evaluation of moderately severe aortic stenosis 6. Severe COPD, with chronic respiratory failure, with moderate to severe pulmonary hypertension with moderate TR probably from both left side heart failure and COPD: continue on breathing treatment, aggressive pulmonary toileting. 7. Hypertension, stable, on metoprolol, continue to monitor vitals. 8. Type 2 diabetes mellitus, sugars are fairly uncontrolled, metformin withheld, will continue on ADA diet, Accu-Cheks, increase insulin sliding scale to high-dose 9. morbid obesity, BMI 46, diet and exercise is recommended 10. DVT prophylaxis -SCDs. Plan of management, medications and left findings discussed with the patient. Laboratory Results 01/09/18 16:33: Sodium 139, Potassium 3.8, Chloride 88 L, Carbon Dioxide > 45.0 H*, Anion Gap TNP, BUN 50 H, Creatinine 1.02, Estim Creat Clear Calc 43.06, Est GFR (MDRD) Af Amer 69, Est GFR (MDRD) Non-Af 57 L, BUN/Creatinine Ratio 49.0 H, Glucose 160 H, Calcium 9.1 01/09/18 21:39: POC Glucose 192 H 01/10/18 06:30: WBC 11.2 H, RBC 3.33 L, Hgb 9.0 L, Hct 33.5 L, MCV 100.6 H, MCH 27.0, MCHC 26.9 L, RDW 15.4 H, RDW Differential 55.2 H, Plt Count 490 H, MPV 10.2, Immature Gran % (Auto) 0.400, Neut % (Auto) 84.8 H, Lymph % (Auto) 5.5 L, [place] % (Auto) 6.7, Eos % (Auto) 2.3, Baso % (Auto) 0.3, Absolute Neuts (auto) 9.5 H, Absolute Lymphs (auto) 0.61 L, Total Counted Not Reportable 01/10/18 06:30: Sodium 138, Potassium 3.7, Chloride 86 L, Carbon Dioxide > 45.0 H*, Anion Gap TNP, BUN 59 H, Creatinine 1.38 H, Estim Creat Clear Calc 31.83, Est GFR (MDRD) Af Amer 49 L, Est GFR (MDRD) Non-Af 40 L, BUN/Creatinine Ratio 42.8 H, Glucose 198 H, Calcium 9.1 01/10/18 06:46: POC Glucose 209 H 01/10/18 11:15: POC Glucose 262 H 01/10/18 11:55: Specimen Type ART, Sample Site L Brachial, pH 7.35, Bicarbonate Actual 55.2 H, POC Total CO2 > 50, Base Excess 30 H, O2 Saturation 97, ABG pCO2 100.0 H*, ABG pO2 104 H, Luis Fernando Test NA, O2 Delivery Device Nasal Can, Liter Flow 6.0, Blood Gas Notified Whom [facility] , Blood Gas Notified Time 1145 01/10/18 17:14: POC Glucose 154 H Microbiology Past 72 Hours 01/06/18 18:10 Stool Stool Occult Blood (TESS) - Final Occult Blood Positive Laboratory Results Clinical Impression(s) from Imaging Studies Chest X-Ray 01/02/18 15:13 IMPRESSION: Mild perihilar interstitial and vascular prominence in the lungs may be related to technique. Differential considerations include mild CHF, or mild pneumonitis. There is no focal infiltrate and no visible effusion. Chest X-Ray 01/07/18 05:55 IMPRESSION: Findings suggestive of a mild degree of CHF. Code Visit Inpatient E&M: 89900 Subs Hosp L3
--- NOTE | 2018-01-10 18:00 | PN_ITS ---
Patient Problems: Active and Suspected Problems (Last Updated 01/02/18 @ 17:11 by David Montana MD) Diastolic CHF, acute on chronic (Acute) CKD stage 3 secondary to diabetes (Acute) Subjective: Patient was seen and examined in the morning. Nursing staff For increased somnolence/lethargy. Patient said she was lethargic sleepy because she could not sleep yesterday. Patient is on IV Lasix drip which is discontinued today and transition to intermittent/post Lasix. Patient was also given Zaroxolyn and Diamox. Bicarb more than 45. ABG ordered ABG reported PCO2 100, PO2 104 but pH 7.35 suggesting compensated chronic respiratory acidosis. Started on BiPAP. Objective: General: Alert, Oriented x3, Cooperative HEENT: Atraumatic, PERRLA, EOMI, Normocephalic Neck: Supple, No JVD, Negative Carotid Bruits Lungs: Air entry diminished bilaterally but has improved.Mild expiratory rhonchi is present but no rales. Cardiovascular: Regular rate, Normal S1, Normal S2, Murmur - Moderate to severe aortic stenosis. PVCs on monitor Abdomen: Bowel Sounds Present, Soft, Non Tender Extremities: Capillary Refill Less than 3 Seconds, Edema - Lower extremity edema improving Skin: No rashes, No breakdown Musculoskeletal: Arthritic Changes, Muscle Wasting Neurological: Cranial nerves II-XII grossly intact, Deep Tendon Reflexes 2+/4 and Symmetrical, Neuro grossly intact Psych/Mental Status: Normal Affect, Appropriate Vitals/I&O's: Vital Signs Temp Pulse Resp BP Pulse Ox 98.3 F 72 18 110/60 94 01/10/18 17:25 01/10/18 17:25 01/10/18 17:25 01/10/18 17:25 01/10/18 17:25 Oxygen Flow Rate (L/min) 5 Oxygen Delivery Method Nasal Cannula Weight: 248 lb 3.848 oz Body Mass Index (BMI) 45.4 Intake and Output for Last 24 Hours 01/08/18 01/09/18 01/10/18 23:59 23:59 23:59 Intake Total 931.3 / 931.3 988.4 / 988.4 880.5 / 880.5 Output Total 3525 / 3525 3600 / 3600 3450 / 3450 Balance -2593.7 / -2593.7 -2611.6 / -2611.6 -2569.5 / -2569.5 Laboratory Results 01/09/18 16:33: Sodium 139, Potassium 3.8, Chloride 88 L, Carbon Dioxide > 45.0 H*, Anion Gap TNP, BUN 50 H, Creatinine 1.02, Estim Creat Clear Calc 43.06, Est GFR (MDRD) Af Amer 69, Est GFR (MDRD) Non-Af 57 L, BUN/Creatinine Ratio 49.0 H, Glucose 160 H, Calcium 9.1 01/09/18 21:39: POC Glucose 192 H 01/10/18 06:30: WBC 11.2 H, RBC 3.33 L, Hgb 9.0 L, Hct 33.5 L, MCV 100.6 H, MCH 27.0, MCHC 26.9 L, RDW 15.4 H, RDW Differential 55.2 H, Plt Count 490 H, MPV 10.2, Immature Gran % (Auto) 0.400, Neut % (Auto) 84.8 H, Lymph % (Auto) 5.5 L, [place] % (Auto) 6.7, Eos % (Auto) 2.3, Baso % (Auto) 0.3, Absolute Neuts (auto) 9.5 H, Absolute Lymphs (auto) 0.61 L, Total Counted Not Reportable 01/10/18 06:30: Sodium 138, Potassium 3.7, Chloride 86 L, Carbon Dioxide > 45.0 H*, Anion Gap TNP, BUN 59 H, Creatinine 1.38 H, Estim Creat Clear Calc 31.83, Est GFR (MDRD) Af Amer 49 L, Est GFR (MDRD) Non-Af 40 L, BUN/Creatinine Ratio 42.8 H, Glucose 198 H, Calcium 9.1 01/10/18 06:46: POC Glucose 209 H 01/10/18 11:15: POC Glucose 262 H 01/10/18 11:55: Specimen Type ART, Sample Site L Brachial, pH 7.35, Bicarbonate Actual 55.2 H, POC Total CO2 > 50, Base Excess 30 H, O2 Saturation 97, ABG pCO2 100.0 H*, ABG pO2 104 H, Luis Fernando Test NA, O2 Delivery Device Nasal Can, Liter Flow 6.0, Blood Gas Notified Whom MIO GAMBOA, Blood Gas Notified Time 1142 01/10/18 17:14: POC Glucose 154 H Current Medications Acetaminophen (Tylenol) 650 mg PO Q6H PRN PRN PRN Reason: Mild Pain (scale 0-3)/T>100.7 Last Admin: 01/09/18 19:37 Dose: 650 mg Acetazolamide (Diamox) 250 mg PO BID [facility] Last Admin: 01/10/18 08:48 Dose: 250 mg Albuterol Sulfate (Ventolin Aerosols) 2.5 mg INHALATION Q2H PRN PRN PRN Reason: Shortness of breath, wheezing Albuterol/Ipratropium (Duoneb) 3 ml INHALATION Q4H.RT [facility] Last Admin: 01/10/18 15:07 Dose: 3 ml Atorvastatin Calcium (Lipitor) 10 mg PO QHS [facility] Last Admin: 01/09/18 21:47 Dose: 10 mg Escitalopram Oxalate (Lexapro) 10 mg PO DAILY [facility] Last Admin: 01/10/18 08:49 Dose: 10 mg Ferrous Sulfate (Ferrous Sulfate) 325 mg PO TIDCM [facility] Last Admin: 01/10/18 17:16 Dose: 325 mg Flunisolide (Nasarel Nose [employer]) 2 spray NASAL BID [facility] Last Admin: 01/10/18 08:50 Dose: 2 spray Fluticasone Propionate (Flonase Nasal [employer]) 1 spray NASAL BID [facility] Last Admin: 01/10/18 08:49 Dose: 1 spray Furosemide (Lasix) 40 mg IV BIDLX [facility] Last Admin: 01/10/18 17:16 Dose: 40 mg Ibuprofen (Motrin) 400 mg PO Q6H PRN PRN PRN Reason: MILD PAIN (1-3/10) Last Admin: 01/10/18 17:45 Dose: 400 mg Insulin Human Lispro (Humalog Kwikpen (Bkc)) 0 unit SQ ACHS [facility]; Protocol Last Admin: 01/10/18 17:15 Dose: 3 u Magnesium Hydroxide (Milk Of Magnesia) 30 ml PO DAILY PRN PRN Reason: Constipation Last Admin: 01/05/18 18:09 Dose: 30 ml Metoprolol Tartrate (Lopressor (Beta [place])) 50 mg PO BID [facility] Last Admin: 01/10/18 08:49 Dose: 50 mg Ondansetron HCl (Zofran) 4 mg IV Q8H PRN PRN PRN Reason: Nausea Last Admin: 01/03/18 12:51 Dose: 4 mg Pantoprazole Sodium (Protonix) 40 mg PO BID [facility] Last Admin: 01/10/18 08:50 Dose: 40 mg Sodium Chloride () 5 - 30 ml IV UD PRN PRN Reason: SALINE FLUSH Last Admin: 01/10/18 17:16 Dose: 10 ml Sodium Chloride ([place] Nasal [employer]) 2 spray NASAL TID PRN PRN PRN Reason: NASAL DRYNESS Last Admin: 01/10/18 04:03 Dose: 2 spray Trazodone HCl (Desyrel) 100 mg PO QHS PRN PRN PRN Reason: SLEEP Last Admin: 01/05/18 22:17 Dose: 100 mg Medical Necessity - Tobacco Use Smoking Status: Former smoker Tobacco Use: Cigarettes Assessment/Plan All Active Problems (Last Updated 01/02/18 @ 17:11 by David Montana MD) Diastolic CHF, acute on chronic (Acute) CKD stage 3 secondary to diabetes (Acute) CVA (cerebral vascular accident) (Resolved) CVA (cerebral vascular accident) (Resolved) History of GI bleeding (Resolved) This is a pleasant 67 years old female 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 1. Acute on chronic hypoxic respiratory failure, improved, currently on her home 5 L of oxygen, secondary to acute on chronic diastolic CHF, acute on chronic anemia: Initially, patient had respiratory distress, and tachypnea. Currently on baseline 5 L oxygen. Acute respiratory failure improved. Initially, patient did not had good free water clearance Lasix 60 mg every 8 hourly. Patient was on Lasix 50 mg/h which is discontinued today. Patient also had IV Diuril and then Zaroxolyn. Diamox was added by inspector and mender. encourage incentive spirometer. Weight is 246. Lower extremity edema is better. Lasix discontinued. On Lasix 40 ml IV twice daily which is equivalent to Lasix 80 mg oral twice daily. 2. Acute on chronic respiratory acidosis with compensated metabolic alkalosis exacerbated by diuretics: Patient baseline PCO2 is about 80. Currently PCO2 100 but pH is 7.35. Her baseline pH is 7.35. Started on BiPAP 12/5. Follow-up ABG after 1 hour. Discussed with the respiratory therapist. Discontinue Zaroxolyn. On Diamox. As mentioned above Lasix IV discontinued. Lower BMP. 3. Acute on chronic diastolic CHF on Lasix IV drip, rest as mentioned above: continue with strict I's and O's. ekg monitor shows PVCs and short runs of NSVT. Sinus rhythm. Echo in May 2017 reported as EF 60% with normal systolic function. Mild concentric LVH. No regional wall motion abnormality. Normal RV size systolic function. LA moderately enlarged. Moderate TR, RVSP 60 mmHg. Moderately severe aortic stenosis, mean AV gradient 34 mmHg severe focal aortic valve calcification. Discussed with the cleaning supervisor, Dr. Xavier. 4 Acute kidney injury probably from diuretics on baseline CKD stage III secondary diabetes: Creatinine today is 1.3 8 from 1.02 yesterday. Acute on chronic anemia, history of AVMs, chronic anemia, iron deficient. Patient had total of 2 unit of PRBC transfusion on 01/03 and 01/04. Hemoglobin from 7- 8.7, 8.2, 9.0 probably hemoconcentration. Indeterminate troponin second to demand ischemia. 5. Aortic stenosis, moderately severe: Maintain fluid balance. Patient had [facility] scheduled for evaluation of moderately severe aortic stenosis 6. Severe COPD, with chronic respiratory failure, with moderate to severe pulmonary hypertension with moderate TR probably from both left side heart failure and COPD: continue on breathing treatment, aggressive pulmonary toileting. 7. Hypertension, stable, on metoprolol, continue to monitor vitals. 8. Type 2 diabetes mellitus, sugars are fairly uncontrolled, metformin withheld, will continue on ADA diet, Accu-Cheks, increase insulin sliding scale to high-dose 9. morbid obesity, BMI 46, diet and exercise is recommended 10. DVT prophylaxis -SCDs. Plan of management, medications and left findings discussed with the patient. Laboratory Results 01/09/18 16:33: Sodium 139, Potassium 3.8, Chloride 88 L, Carbon Dioxide > 45.0 H*, Anion Gap TNP, BUN 50 H, Creatinine 1.02, Estim Creat Clear Calc 43.06, Est GFR (MDRD) Af Amer 69, Est GFR (MDRD) Non-Af 57 L, BUN/Creatinine Ratio 49.0 H, Glucose 160 H, Calcium 9.1 01/09/18 21:39: POC Glucose 192 H 01/10/18 06:30: WBC 11.2 H, RBC 3.33 L, Hgb 9.0 L, Hct 33.5 L, MCV 100.6 H, MCH 27.0, MCHC 26.9 L, RDW 15.4 H, RDW Differential 55.2 H, Plt Count 490 H, MPV 10.2, Immature Gran % (Auto) 0.400, Neut % (Auto) 84.8 H, Lymph % (Auto) 5.5 L, [place] % (Auto) 6.7, Eos % (Auto) 2.3, Baso % (Auto) 0.3, Absolute Neuts (auto) 9.5 H, Absolute Lymphs (auto) 0.61 L, Total Counted Not Reportable 01/10/18 06:30: Sodium 138, Potassium 3.7, Chloride 86 L, Carbon Dioxide > 45.0 H*, Anion Gap TNP, BUN 59 H, Creatinine 1.38 H, Estim Creat Clear Calc 31.83, Est GFR (MDRD) Af Amer 49 L, Est GFR (MDRD) Non-Af 40 L, BUN/Creatinine Ratio 42.8 H, Glucose 198 H, Calcium 9.1 01/10/18 06:46: POC Glucose 209 H 01/10/18 11:15: POC Glucose 262 H 01/10/18 11:55: Specimen Type ART, Sample Site L Brachial, pH 7.35, Bicarbonate Actual 55.2 H, POC Total CO2 > 50, Base Excess 30 H, O2 Saturation 97, ABG pCO2 100.0 H*, ABG pO2 104 H, Luis Fernando Test NA, O2 Delivery Device Nasal Can, Liter Flow 6.0, Blood Gas Notified Whom [facility] , Blood Gas Notified Time 1145 01/10/18 17:14: POC Glucose 154 H Microbiology Past 72 Hours 01/06/18 18:10 Stool Stool Occult Blood (TESS) - Final Occult Blood Positive Laboratory Results Clinical Impression(s) from Imaging Studies Chest X-Ray 01/02/18 15:13 IMPRESSION: Mild perihilar interstitial and vascular prominence in the lungs may be related to technique. Differential considerations include mild CHF, or mild pneumonitis. There is no focal infiltrate and no visible effusion. Chest X-Ray 01/07/18 05:55 IMPRESSION: Findings suggestive of a mild degree of CHF. Code Visit Inpatient E&M: 73171 Subs Hosp L3
[2018-01-10] MEDS: Atorvastatin Calcium 10 MG Tablet PO (21:01)
[2018-01-10 21:15] LABS: Bedside Glucose 291 mg/dL (70-110)
[2018-01-10] MEDS: traZODone 100 MG Tablet PO (23:56)
[2018-01-11] VITALS (16 sets, daily range): BP systolic 102–125; BP diastolic 43–64; PULSE 64–87; RESP 16–24; TEMP 36.4–36.8; O2SAT 91–96
[2018-01-11 06:48] LABS: Absolute Lymphocyte Count 0.71 X10^3/ul (0.83-4.51); Absolute Neutrophil Count 8.4 X10^3/uL (2.0-7.7); Basophil# 0.04 X10^3/uL; Basophil% 0.4 % (0-1); Eosinophil# 0.31 X10^3/uL; Hematocrit 31.2 % (37-47); Hemoglobin 8.4 g/dl (12.0-15.0); Lymphocyte # 0.71 X10^3/ul (4.0); Lymphocyte % 6.8 % (19-41); Mean Corp Hgb Conc 26.9 g/gl (32-36); Mean Corpuscular Hgb 26.7 pg (27.0-32.0); Mean Platelet Vol. 10.1 fl (6.2-12.0); Monocyte# 0.91 X10^3/uL; Monocyte% 8.7 % (0-10); Neutrophil # 8.42 X10^3/uL (2.7-7.7); Neutrophil % 80.5 % (47-70); POSITIVE COUNT NO; POSITIVE DIFFERENTIAL NO; POSITIVE MORPHOLOGY NO; Platelet Count 473 K/mm3 (150-450); RBC Distribution Width CV 15.1 % (11.6-14.6); RBC Distribution Width SD 52.6 fl (35.1-43.9); Red Blood Count 3.15 M/mm3 (4.2-5.4); White Blood Count 10.5 K/mm3 (4.4-11.0)
[2018-01-11 07:01] LABS: Bedside Glucose 193 mg/dL (70-110)
[2018-01-11 07:23] LABS: BUN 75 mg/dL (7-18); BUN/Creat Ratio 51.4 RATIO (10-20); Calcium,Total 9.1 mg/dL (8.5-10.1); Carbon Dioxide > 45.0 mmol/L (21.0-32.0); Chloride 81 mmol/L (98-107); Creatinine, Serum 1.46 mg/dL (0.55-1.02); EST Glomerular Filtration Rate 38 mL/min (>60); Est Glom Filt Rate - Afr Amer 46 mL/min (>60); Estimated Creatinine Clearance 30.08 ml/min; Glucose 171 mg/dL (74-106); Potassium 3.9 mmol/L (3.5-5.1); Sodium Level 137 mmol/L (136-145)
[2018-01-11] MEDS: Ipratropium/Albuterol Sulfate 3 ML AMPUL.NEB INHALATION ×3 (07:28→23:04)
[2018-01-11] MEDS: Pantoprazole Sodium 40 MG Tablet PO ×2 (10:34→22:41)
[2018-01-11] MEDS: AcetaZOLAMIDE 250 MG Tablet PO ×2 (10:34→22:41)
[2018-01-11] MEDS: Ferrous Sulfate 325 MG Tablet PO ×3 (10:34→16:49)
[2018-01-11] MEDS: Fluticasone 0.05% 1 SPRAY NASAL.SRY NASAL ×2 (10:34→22:39)
[2018-01-11] MEDS: Escitalopram Oxalate 10 MG Tablet PO (10:34)
[2018-01-11] MEDS: Furosemide 40 MG/4 ML Vial IV (10:35)
[2018-01-11] MEDS: Metoprolol Tartrate 50 MG Tablet PO ×2 (10:35→22:42)
[2018-01-11] MEDS: Insulin Lispro 100 UNIT/ML INSULN.PEN SQ ×4 (10:36→22:39)
[2018-01-11] MEDS: Ibuprofen 400 MG Tablet PO (10:41)
--- NOTE | 2018-01-11 11:04 | PN.CARD_ITS ---
Subjectve: Patient doing fairly well this morning. Still has lower extremity edema. Telemetry showed normal sinus rhythm with PAC, PVCs, and ventricular couplets. Objective: Vital Signs Temp Pulse Resp BP Pulse Ox 98.2 F 72 16 116/64 93 01/11/18 10:30 01/11/18 10:35 01/11/18 10:30 01/11/18 10:30 01/11/18 10:30 Oxygen Flow Rate (L/min) 5 Oxygen Delivery Method Nasal Cannula Weight: 248 lb 0.321 oz Body Mass Index (BMI) 45.4 Intake and Output for Last 24 Hours 01/09/18 01/10/18 01/11/18 23:59 23:59 23:59 Intake Total 988.4 / 988.4 880.5 / 880.5 400 / 400 Output Total 3600 / 3600 3450 / 3450 1200 / 1200 Balance -2611.6 / -2611.6 -2569.5 / -2569.5 -800 / -800 General: Awake, Alert, Oriented x 3 HEENT: PERRL, EOMI, Sclera Non Icteric Neck: Supple, Good ROM, No Lymph Node Enlargement Lungs: Clear to auscultation Cardiovascular: Regular Rhythm, Normal S1, Normal S2, No Rubs, No Gallops Murmur Murmur: Grade 3/6, Harsh, Mid Systolic, LLSB, LVOT, Sternal Notch Vascular: No Carotid Bruits, Normal Femoral Pulses, Normal Radial Pulses, Normal Dorsalis Pedal Pulse, Normal Posterior Tibial Pulses Abdomen: Bowel Sounds Present, Soft, Non Tender, No HSM, No Organomegaly Extremities: No Cyanosis, No Clubbing, Bilateral Edema +1 Neurological: No Focal Motor or Sensory Deficit 01/10/18 11:55: pH 7.35, Bicarbonate Actual 55.2 H, POC Total CO2 > 50, Base Excess 30 H, O2 Saturation 97, ABG pCO2 100.0 H*, ABG pO2 104 H, Luis Fernando Test NA 01/11/18 05:55: WBC 10.5, RBC 3.15 L, Hgb 8.4 L, Hct 31.2 L, MCV 99.0, MCH 26.7 L, MCHC 26.9 L, RDW 15.1 H, RDW Differential 52.6 H, Plt Count 473 H, MPV 10.1, Immature Gran % (Auto) 0.600, Neut % (Auto) 80.5 H, Lymph % (Auto) 6.8 L, [place] % (Auto) 8.7, Eos % (Auto) 3.0, Baso % (Auto) 0.4, Absolute Neuts (auto) 8.4 H, Total Counted Not Reportable 01/11/18 05:55: Sodium 137, Potassium 3.9, Chloride 81 L, Carbon Dioxide > 45.0 H*, Anion Gap TNP, BUN 75 H, Creatinine 1.46 H, Est GFR (MDRD) Af Amer 46 L, Est GFR (MDRD) Non-Af 38 L, BUN/Creatinine Ratio 51.4 H, Glucose 171 H, Calcium 9.1 Rhythm: EKG: ECHO: Stress Test: Cardiac Cath: PCI: CT Surgery: Holter monitor: EPS: PPM: CXR: Chest CT Scan: Medical Necessity - Tobacco Use Smoking Status: Former smoker Tobacco Use: Cigarettes Assessment/Plan 1. Acute on chronic diastolic mediated CHF At the present time patient presents with findings compatible with acute on chronic diastolic mediated CHF. Given the patient's marked elevated bicarb, would recommend holding her Lasix and metolazone at this time until her bicarb has improved. She is also receiving Diamox based upon her acid-base changes. She has had fairly agg ressive diuresis since being admitted but still complains of lower extremity edema and abdominal bloating. She does report that she feels much better since admission however. She will continue oxygen support. She is also being followed by nephrology. 2. Aortic valve stenosis She does have a history of aortic valve stenosis. There is somewhat of a discrepancy between her transthoracic echocardiogram and her diagnostic cardiac catheterization. He has been evaluated at the [facility] for her aortic valve stenosis for consideration for TAVR thus far they have not proceeded with this procedure. Her mean gradient by catheterization was 22 mmHg, which is under the threshold for T AVR. Patient may require a transesophageal echocardiogram to better evaluate the patient's aortic valve stenosis when she has been medically optimized. Patient has evidence of moderate to severe pulmonary hypertension and has had repeated admissions for right heart failure. She had minimal coronary artery disease so this is most likely not contributing to her congestive heart failure presentation. 3. Pulmonary hypertension This may be secondary to not only her cardiovascular disease but her pulmonary disease with her COPD, etc. This can lead to cor pulmonale and right heart failure. He will need continued pulmonary support and medical therapy which does include her diuretic therapy. Continue CPAP therapy. The follow-up echocardiogram, secondary to being a technically diminished quality study, was unable to estimate the RV systolic pressure/right sided pressures. 4. Hyperlipidemia She will continue lipid-lowering therapy as deemed appropriate. 5. Hypertension She will continue antihypertensive therapy with adjustment as needed. 6. Diabetes mellitus She will continue under the care of internal medicine. 7. COPD She does have a history of COPD. She will need continue pulmonary evaluation care. She is on O2 therapy. 8. Anemia Her H/H is improved s/p additional PRBCs. Hopefully this will assist her O2 carrying capacity. Recommend keeping her hemoglobin above 8.0. This note was generated with [employer] dictation software. It may contain incorrect words, spelling, and punctuation that were not noted in checking the note before signing. Code Visit Inpatient E&M: 86921 Subs Hosp L2
[2018-01-11 11:41] LABS: Bedside Glucose 229 mg/dL (70-110)
--- NOTE | 2018-01-11 15:24 | PCM.PN.HOSP ---
Patient Problems: Active and Suspected Problems (Last Updated 01/02/18 @ 17:11 by David Montana MD) Diastolic CHF, acute on chronic (Acute) CKD stage 3 secondary to diabetes (Acute) Subjective: Patient was seen and examined. Complains of sinus pressure and nasal congestion. Denies any fever or chills. Still feels short of breath. Denies any chest pain, dizziness, SOB Vitals/I&O's: Vital Signs Temp Pulse Resp BP Pulse Ox 98.2 F 72 16 116/64 93 01/11/18 10:30 01/11/18 10:35 01/11/18 10:30 01/11/18 10:30 01/11/18 10:30 Oxygen Flow Rate (L/min) 5 Oxygen Delivery Method Nasal Cannula Weight: 112.5 kg Body Mass Index (BMI) 45.4 Intake and Output for Last 24 Hours 01/09/18 01/10/18 01/11/18 23:59 23:59 23:59 Intake Total 988.4 / 988.4 880.5 / 880.5 1140 / 1140 Output Total 3600 / 3600 3450 / 3450 2150 / 2150 Balance -2611.6 / -2611.6 -2569.5 / -2569.5 -1010 / -1010 General: Alert, Oriented x3, Cooperative, - - Mild respiratory distress, on 5 L of oxygen, obese HEENT: Atraumatic, PERRLA, EOMI, Normocephalic Oral: Moist Mucosa Neck: Supple, No JVD, Negative Carotid Bruits Lungs: Normal air movement, Diminished Cardiovascular: Regular rate, Regular Rhythm, Normal S1, Normal S2, Murmur - Holosystolic murmur Abdomen: Bowel Sounds Present, Soft, Non Tender, Non-Distended, No Hepato-splenomegaly Extremities: Edema - Bilateral +2 pitting, nontender, chronic venous stasis Skin: No rashes, No breakdown Musculoskeletal: No Tenderness to Palpation of Joints or Extremities Lymphatic: No Cervical, Supraclavicular, or Inguinal Adenopathy Neurological: Cranial nerves II-XII grossly intact Psych/Mental Status: Normal Affect, Appropriate Laboratory Results 01/10/18 17:14: POC Glucose 154 H 01/10/18 20:59: POC Glucose 291 H 01/11/18 05:55: WBC 10.5, RBC 3.15 L, Hgb 8.4 L, Hct 31.2 L, MCV 99.0, MCH 26.7 L, MCHC 26.9 L, RDW 15.1 H, RDW Differential 52.6 H, Plt Count 473 H, MPV 10.1, Immature Gran % (Auto) 0.600, Neut % (Auto) 80.5 H, Lymph % (Auto) 6.8 L, [place] % (Auto) 8.7, Eos % (Auto) 3.0, Baso % (Auto) 0.4, Absolute Neuts (auto) 8.4 H, Absolute Lymphs (auto) 0.71 L, Total Counted Not Reportable 01/11/18 05:55: Sodium 137, Potassium 3.9, Chloride 81 L, Carbon Dioxide > 45.0 H*, Anion Gap TNP, BUN 75 H, Creatinine 1.46 H, Estim Creat Clear Calc 30.08, Est GFR (MDRD) Af Amer 46 L, Est GFR (MDRD) Non-Af 38 L, BUN/Creatinine Ratio 51.4 H, Glucose 171 H, Calcium 9.1 01/11/18 06:55: POC Glucose 193 H 01/11/18 11:34: POC Glucose 229 H Current Medications Acetaminophen (Tylenol) 650 mg PO Q6H PRN PRN PRN Reason: Mild Pain (scale 0-3)/T>100.7 Last Admin: 01/09/18 19:37 Dose: 650 mg Acetazolamide (Diamox) 250 mg PO BID [facility] Last Admin: 01/11/18 10:34 Dose: 250 mg Albuterol Sulfate (Ventolin Aerosols) 2.5 mg INHALATION Q2H PRN PRN PRN Reason: Shortness of breath, wheezing Albuterol/Ipratropium (Duoneb) 3 ml INHALATION Q4H.RT [facility] Last Admin: 01/11/18 11:20 Dose: Not Given Atorvastatin Calcium (Lipitor) 10 mg PO QHS [facility] Last Admin: 01/10/18 21:01 Dose: 10 mg Escitalopram Oxalate (Lexapro) 10 mg PO DAILY [facility] Last Admin: 01/11/18 10:34 Dose: 10 mg Ferrous Sulfate (Ferrous Sulfate) 325 mg PO TIDCM [facility] Last Admin: 01/11/18 13:27 Dose: 325 mg Flunisolide ([place]asarel Nose [place]) 2 spray NASAL BID [facility] Last Admin: 01/11/18 10:35 Dose: 2 spray Fluticasone Propionate (Flonase Nasal [place]) 1 spray NASAL BID [facility] Last Admin: 01/11/18 10:34 Dose: 1 spray Ibuprofen (Motrin) 400 mg PO Q6H PRN PRN PRN Reason: MILD PAIN (1-310) Last Admin: 01/11/18 10:41 Dose: 400 mg Insulin Human Lispro (Humalog Kwikpen (Bkc)) 0 unit SQ ACHS [facility]; Protocol Last Admin: 01/11/18 11:38 Dose: 6 units Magnesium Hydroxide (Milk Of Magnesia) 30 ml PO DAILY PRN PRN Reason: Constipation Last Admin: 01/05/18 18:09 Dose: 30 ml Metoprolol Tartrate (Lopressor (Beta Jeffery)) 50 mg PO BID [facility] Last Admin: 01/11/18 10:35 Dose: 50 mg Ondansetron HCl (Zofran) 4 mg IV Q8H PRN PRN PRN Reason: Nausea Last Admin: 01/03/18 12:51 Dose: 4 mg Pantoprazole Sodium (Protonix) 40 mg PO BID [facility] Last Admin: 01/11/18 10:34 Dose: 40 mg Sodium Chloride () 5 - 30 ml IV UD PRN PRN Reason: SALINE FLUSH Last Admin: 01/10/18 17:16 Dose: 10 ml Sodium Chloride ([place] Nasal [place]) 2 spray NASAL TID PRN PRN PRN Reason: NASAL DRYNESS Last Admin: 01/10/18 21:00 Dose: 2 spray Trazodone HCl (Desyrel) 100 mg PO QHS PRN PRN PRN Reason: SLEEP Last Admin: 01/10/18 23:56 Dose: 100 mg Medical Necessity - Tobacco Use Smoking Status: Former smoker Tobacco Use: Cigarettes Assessment/Plan All Active Problems (Last Updated 01/02/18 @ 17:11 by David Montana MD) Diastolic CHF, acute on chronic (Acute) CKD stage 3 secondary to diabetes (Acute) CVA (cerebral vascular accident) (Resolved) CVA (cerebral vascular accident) (Resolved) History of GI bleeding (Resolved) 67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 1. Acute sinusitis, per history, will start patient on Augmentin for 7 days 2. Acute on chronic hypoxic respiratory failure, on 5L of oxygen, secondary to acute on chronic diastolic CHF, acute on chronic anemia, continue treatment, wean off oxygen, encourage incentive spirometer 3. Acute on chronic diastolic CHF, on Lasix drip, off Lasix drip and metalazone, on account of contraction alkalosis, will trend BMP 4. Acute metabolic alkalosis secondary to contraction alkalosis/chronic COPD retention, on Diamox, will continue to monitor BMP 5. Acute on chronic anemia, history of AVMs, chronic anemia, iron deficient, this post 2 units packed RBC, hemoglobin remains stable at 8.4, will stop NSAIDS, continue on PPI 6. Indeterminate troponin second to demand ischemia, will continue to monitor 7. Aortic stenosis, mild-moderate, will continue to monitor. 8. Severe COPD/severe pulmonary hypertension/chronic respiratory failure, will continue on breathing treatment, aggressive pulmonary toileting. 9. Hypertension, stable, on metoprolol, continue to monitor vitals. 10. Type 2 diabetes mellitus, sugars are fairly uncontrolled, metformin withheld, will continue on ADA diet, Accu-Cheks,on ISS, will start on Lantus low dose if BS remain elevated. 11. morbid obesity, BMI 46, diet recommended 12. DVT prophylaxis -SCDs on account of chronic GI bleed Code Visit Inpatient E&M: 08872 Subs Hosp L2
--- NOTE | 2018-01-11 15:28 | PN_ITS ---
Patient Problems: Active and Suspected Problems (Last Updated 01/02/18 @ 17:11 by David Montana MD) Diastolic CHF, acute on chronic (Acute) CKD stage 3 secondary to diabetes (Acute) Subjective: Patient was seen and examined. Complains of sinus pressure and nasal congestion. Denies any fever or chills. Still feels short of breath. Denies any chest pain, dizziness, SOB Vitals/I&O's: Vital Signs Temp Pulse Resp BP Pulse Ox 98.2 F 72 16 116/64 93 01/11/18 10:30 01/11/18 10:35 01/11/18 10:30 01/11/18 10:30 01/11/18 10:30 Oxygen Flow Rate (L/min) 5 Oxygen Delivery Method Nasal Cannula Weight: 112.5 kg Body Mass Index (BMI) 45.4 Intake and Output for Last 24 Hours 01/09/18 01/10/18 01/11/18 23:59 23:59 23:59 Intake Total 988.4 / 988.4 880.5 / 880.5 1140 / 1140 Output Total 3600 / 3600 3450 / 3450 2150 / 2150 Balance -2611.6 / -2611.6 -2569.5 / -2569.5 -1010 / -1010 General: Alert, Oriented x3, Cooperative, - - Mild respiratory distress, on 5 L of oxygen, obese HEENT: Atraumatic, PERRLA, EOMI, Normocephalic Oral: Moist Mucosa Neck: Supple, No JVD, Negative Carotid Bruits Lungs: Normal air movement, Diminished Cardiovascular: Regular rate, Regular Rhythm, Normal S1, Normal S2, Murmur - Holosystolic murmur Abdomen: Bowel Sounds Present, Soft, Non Tender, Non-Distended, No Hepato- splenomegaly Extremities: Edema - Bilateral +2 pitting, nontender, chronic venous stasis Skin: No rashes, No breakdown Musculoskeletal: No Tenderness to Palpation of Joints or Extremities Lymphatic: No Cervical, Supraclavicular, or Inguinal Adenopathy Neurological: Cranial nerves II-XII grossly intact Psych/Mental Status: Normal Affect, Appropriate Laboratory Results 01/10/18 17:14: POC Glucose 154 H 01/10/18 20:59: POC Glucose 291 H 01/11/18 05:55: WBC 10.5, RBC 3.15 L, Hgb 8.4 L, Hct 31.2 L, MCV 99.0, MCH 26.7 L, MCHC 26.9 L, RDW 15.1 H, RDW Differential 52.6 H, Plt Count 473 H, MPV 10.1, Immature Gran % (Auto) 0.600, Neut % (Auto) 80.5 H, Lymph % (Auto) 6.8 L, [place] % (Auto) 8.7, Eos % (Auto) 3.0, Baso % (Auto) 0.4, Absolute Neuts (auto) 8.4 H, Absolute Lymphs (auto) 0.71 L, Total Counted Not Reportable 01/11/18 05:55: Sodium 137, Potassium 3.9, Chloride 81 L, Carbon Dioxide > 45.0 H*, Anion Gap TNP, BUN 75 H, Creatinine 1.46 H, Estim Creat Clear Calc 30.08, Est GFR (MDRD) Af Amer 46 L, Est GFR (MDRD) Non-Af 38 L, BUN/Creatinine Ratio 51.4 H, Glucose 171 H, Calcium 9.1 01/11/18 06:55: POC Glucose 193 H 01/11/18 11:34: POC Glucose 229 H Current Medications Acetaminophen (Tylenol) 650 mg PO Q6H PRN PRN PRN Reason: Mild Pain (scale 0-3)/T>100.7 Last Admin: 01/09/18 19:37 Dose: 650 mg Acetazolamide (Diamox) 250 mg PO BID [facility] Last Admin: 01/11/18 10:34 Dose: 250 mg Albuterol Sulfate (Ventolin Aerosols) 2.5 mg INHALATION Q2H PRN PRN PRN Reason: Shortness of breath, wheezing Albuterol/Ipratropium (Duoneb) 3 ml INHALATION Q4H.RT [facility] Last Admin: 01/11/18 11:20 Dose: Not Given Atorvastatin Calcium (Lipitor) 10 mg PO QHS [facility] Last Admin: 01/10/18 21:01 Dose: 10 mg Escitalopram Oxalate (Lexapro) 10 mg PO DAILY [facility] Last Admin: 01/11/18 10:34 Dose: 10 mg Ferrous Sulfate (Ferrous Sulfate) 325 mg PO TIDCM [facility] Last Admin: 01/11/18 13:27 Dose: 325 mg Flunisolide (Nasarel Nose [place]) 2 spray NASAL BID [facility] Last Admin: 01/11/18 10:35 Dose: 2 spray Fluticasone Propionate (Flonase Nasal [place]) 1 spray NASAL BID [facility] Last Admin: 01/11/18 10:34 Dose: 1 spray Ibuprofen (Motrin) 400 mg PO Q6H PRN PRN PRN Reason: MILD PAIN (1-310) Last Admin: 01/11/18 10:41 Dose: 400 mg Insulin Human Lispro (Humalog Kwikpen (Bkc)) 0 unit SQ ACHS [facility]; Protocol Last Admin: 01/11/18 11:38 Dose: 6 units Magnesium Hydroxide (Milk Of Magnesia) 30 ml PO DAILY PRN PRN Reason: Constipation Last Admin: 01/05/18 18:09 Dose: 30 ml Metoprolol Tartrate (Lopressor (Beta Jeffery)) 50 mg PO BID [facility] Last Admin: 01/11/18 10:35 Dose: 50 mg Ondansetron HCl (Zofran) 4 mg IV Q8H PRN PRN PRN Reason: Nausea Last Admin: 01/03/18 12:51 Dose: 4 mg Pantoprazole Sodium (Protonix) 40 mg PO BID [facility] Last Admin: 01/11/18 10:34 Dose: 40 mg Sodium Chloride () 5 - 30 ml IV UD PRN PRN Reason: SALINE FLUSH Last Admin: 01/10/18 17:16 Dose: 10 ml Sodium Chloride ([place] Nasal Lyles) 2 spray NASAL TID PRN PRN PRN Reason: NASAL DRYNESS Last Admin: 01/10/18 21:00 Dose: 2 spray Trazodone HCl (Desyrel) 100 mg PO QHS PRN PRN PRN Reason: SLEEP Last Admin: 01/10/18 23:56 Dose: 100 mg Medical Necessity - Tobacco Use Smoking Status: Former smoker Tobacco Use: Cigarettes Assessment/Plan All Active Problems (Last Updated 01/02/18 @ 17:11 by David Montana MD) Diastolic CHF, acute on chronic (Acute) CKD stage 3 secondary to diabetes (Acute) CVA (cerebral vascular accident) (Resolved) CVA (cerebral vascular accident) (Resolved) History of GI bleeding (Resolved) 67 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 1. Acute sinusitis, per history, will start patient on Augmentin for 7 days 2. Acute on chronic hypoxic respiratory failure, on 5L of oxygen, secondary to acute on chronic diastolic CHF, acute on chronic anemia, continue treatment, wean off oxygen, encourage incentive spirometer 3. Acute on chronic diastolic CHF, on Lasix drip, off Lasix drip and metalazone, on account of contraction alkalosis, will trend BMP 4. Acute metabolic alkalosis secondary to contraction alkalosis/chronic COPD retention, on Diamox, will continue to monitor BMP 5. Acute on chronic anemia, history of AVMs, chronic anemia, iron deficient, this post 2 units packed RBC, hemoglobin remains stable at 8.4, will stop NSAIDS, continue on PPI 6. Indeterminate troponin second to demand ischemia, will continue to monitor 7. Aortic stenosis, mild-moderate, will continue to monitor. 8. Severe COPD/severe pulmonary hypertension/chronic respiratory failure, will continue on breathing treatment, aggressive pulmonary toileting. 9. Hypertension, stable, on metoprolol, continue to monitor vitals. 10. Type 2 diabetes mellitus, sugars are fairly uncontrolled, metformin withheld, will continue on ADA diet, Accu-Cheks,on ISS, will start on Lantus low dose if BS remain elevated. 11. morbid obesity, BMI 46, diet recommended 12. DVT prophylaxis -SCDs on account of chronic GI bleed Code Visit Inpatient E&M: 71150 Subs Hosp L2
[2018-01-11 17:21] LABS: Bedside Glucose 190 mg/dL (70-110)
--- NOTE | 2018-01-11 18:08 | PCM.PN.REN ---
Patient Problems: Active and Suspected Problems (Last Updated 01/02/18 @ 17:11 by David Montana MD) Diastolic CHF, acute on chronic (Acute) CKD stage 3 secondary to diabetes (Acute) Subjective: Patient said her edema is improving. Breathing stable. Complaining of generalized weakness. No nausea no vomiting. No chest pain - Physical Exam General: Alert, Oriented x3 HEENT: Atraumatic Oral: Moist Mucosa Neck: Supple, No JVD Lungs: Rhonchi, - - Decreased breathing sounds bilaterally Cardiovascular: Regular rate, Regular Rhythm, Normal S1, Normal S2 Abdomen: Bowel Sounds Present, Soft, Non Tender Extremities: No clubbing, No cyanosis, Edema - +2 edema of lower extremities Skin: No rashes Lymphatic: No Cervical, Supraclavicular, or Inguinal Adenopathy Neurological: Cranial nerves II-XII grossly intact, Neuro grossly intact Vital Signs Temp Pulse Resp BP Pulse Ox 97.7 F L 69 18 109/54 L 94 01/11/18 16:35 01/11/18 16:35 01/11/18 16:35 01/11/18 16:35 01/11/18 16:35 Oxygen Flow Rate (L/min) 4 Oxygen Delivery Method Nasal Cannula Weight: 112.5 kg Body Mass Index (BMI) 45.4 Intake and Output for Last 24 Hours 01/09/18 01/10/18 01/11/18 23:59 23:59 23:59 Intake Total 988.4 / 988.4 880.5 / 880.5 1140 / 1140 Output Total 3600 / 3600 3450 / 3450 2450 / 2450 Balance -2611.6 / -2611.6 -2569.5 / -2569.5 -1310 / -1310 Laboratory Tests Past 24 Hrs 01/11/18 01/11/18 05:55 05:55 WBC 10.5 RBC 3.15 L Hgb 8.4 L Hct 31.2 L MCV 99.0 MCH 26.7 L MCHC 26.9 L RDW 15.1 H RDW Differential 52.6 H Plt Count 473 H MPV 10.1 Immature Gran % (Auto) 0.600 Neut % (Auto) 80.5 H Lymph % (Auto) 6.8 L [place] % (Auto) 8.7 Eos % (Auto) 3.0 Baso % (Auto) 0.4 Absolute Neuts (auto) 8.4 H Absolute Lymphs (auto) 0.71 L Total Counted Not Reportable Sodium 137 Potassium 3.9 Chloride 81 L Carbon Dioxide > 45.0 H* Anion Gap TNP BUN 75 H Creatinine 1.46 H Estim Creat Clear Calc 30.08 Est GFR (MDRD) Af Amer 46 L Est GFR (MDRD) Non-Af 38 L BUN/Creatinine Ratio 51.4 H Glucose 171 H Calcium 9.1 POC Glucose 01/11/18 01/11/18 01/11/18 16:38 11:34 06:55 POC Glucose 190 H 229 H 193 H 01/10/18 20:59 POC Glucose 291 H Medical Necessity - Tobacco Use Smoking Status: Former smoker Tobacco Use: Cigarettes Assessment/Plan All Active Problems (Last Updated 01/02/18 @ 17:11 by David Montana MD) Diastolic CHF, acute on chronic (Acute) CKD stage 3 secondary to diabetes (Acute) CVA (cerebral vascular accident) (Resolved) CVA (cerebral vascular accident) (Resolved) History of GI bleeding (Resolved) TANJA. She has normal creatinine at baseline. Acute kidney injury is most probably from over diuresing with resultant decrease effective volume. Creatinine continues to rise. I agree with holding Lasix today. Avoid CHADD inhibitor and ARB. No need for renal replacement therapy. Please check kidney function test in the morning. Metabolic alkalosis. Patient most probably has respiratory acidosis with compensatory metabolic alkalosis. Metabolic alkalosis worsens with contraction. I agree with holding diuretics. Continue Diamox. Check bicarb in the morning. CHF improved. DC diuretics. Continue daily weight. Cardiology service is following Renal team will continue to follow
[2018-01-11] MEDS: Amox/Clavulanate 875 MG Tablet PO (19:03)
[2018-01-11 22:30] LABS: Bedside Glucose 210 mg/dL (70-110)
[2018-01-11] MEDS: Sodium Chloride 0.65% 1 SPRAY SPRAY.BTL 2 SPRAY NASAL (22:38)
[2018-01-11] MEDS: Atorvastatin Calcium 10 MG Tablet PO (22:41)
--- NOTE | 2018-01-11 23:39 | CPS ---
Pt refusing to wear bipap at this time
[2018-01-12] VITALS (19 sets, daily range): BP systolic 101–120; BP diastolic 44–69; PULSE 72–92; RESP 12–27; TEMP 36.6–36.8; O2SAT 90–97
[2018-01-12 06:55] LABS: Bedside Glucose 206 mg/dL (70-110)
[2018-01-12 07:15] LABS: Absolute Lymphocyte Count 1.13 X10^3/ul (0.83-4.51); Basophil# 0.04 X10^3/uL; Basophil% 0.2 % (0-1); Eosinophil# 0.26 X10^3/uL; Eosinophils% 1.6 % (0-5); Hematocrit 29.4 % (37-47); Hemoglobin 8.1 g/dl (12.0-15.0); Lymphocyte # 1.13 X10^3/ul (4.0); Mean Corp Hgb Conc 27.6 g/gl (32-36); Mean Corpuscular Hgb 26.7 pg (27.0-32.0); Mean Platelet Vol. 10.1 fl (6.2-12.0); Monocyte# 0.54 X10^3/uL; Monocyte% 3.4 % (0-10); Neutrophil # 14.02 X10^3/uL (2.7-7.7); Neutrophil % 87.6 % (47-70); Platelet Count 503 K/mm3 (150-450); RBC Distribution Width CV 15.5 % (11.6-14.6); RBC Distribution Width SD 54.9 fl (35.1-43.9); Red Blood Count 3.03 M/mm3 (4.2-5.4)
[2018-01-12 07:17] LABS: POSITIVE COUNT NO; POSITIVE DIFFERENTIAL NO; POSITIVE MORPHOLOGY NO
[2018-01-12 07:52] LABS: BUN 78 mg/dL (7-18); BUN/Creat Ratio 63.9 RATIO (10-20); Calcium,Total 9.4 mg/dL (8.5-10.1); Carbon Dioxide > 45.0 mmol/L (21.0-32.0); Chloride 82 mmol/L (98-107); Creatinine, Serum 1.22 mg/dL (0.55-1.02); EST Glomerular Filtration Rate 46 mL/min (>60); Est Glom Filt Rate - Afr Amer 56 mL/min (>60); Glucose 190 mg/dL (74-106); Potassium 3.2 mmol/L (3.5-5.1); Sodium Level 137 mmol/L (136-145)
[2018-01-12] MEDS: Ferrous Sulfate 325 MG Tablet PO ×3 (09:25→16:37)
[2018-01-12] MEDS: Amox/Clavulanate 875 MG Tablet PO ×2 (09:25→16:37)
[2018-01-12] MEDS: Metoprolol Tartrate 50 MG Tablet PO ×2 (09:25→22:27)
[2018-01-12] MEDS: AcetaZOLAMIDE 250 MG Tablet PO ×2 (09:25→22:27)
[2018-01-12] MEDS: Fluticasone 0.05% 1 SPRAY NASAL.SRY NASAL ×2 (09:25→22:24)
[2018-01-12] MEDS: Pantoprazole Sodium 40 MG Tablet PO ×2 (09:25→22:27)
[2018-01-12] MEDS: Escitalopram Oxalate 10 MG Tablet PO (09:25)
[2018-01-12] MEDS: Insulin Lispro 100 UNIT/ML INSULN.PEN SQ ×4 (09:33→22:31)
[2018-01-12 11:56] LABS: Bedside Glucose 208 mg/dL (70-110)
--- NOTE | 2018-01-12 12:08 | PN.CARD_ITS ---
Subjectve: Patient doing well this morning. Telemetry showed normal sinus rhythm with rare PVC. Objective: Vital Signs Temp Pulse Resp BP Pulse Ox 97.9 F 82 18 116/69 95 01/12/18 11:38 01/12/18 11:38 01/12/18 11:38 01/12/18 11:38 01/12/18 11:38 Oxygen Flow Rate (L/min) 6 Oxygen Delivery Method Nasal Cannula Weight: 248 lb 0.321 oz Body Mass Index (BMI) 45.4 Intake and Output for Last 24 Hours 01/10/18 01/11/18 01/12/18 23:59 23:59 23:59 Intake Total 880.5 / 880.5 1500 / 1500 360 / 360 Output Total 3450 / 3450 2650 / 2650 800 / 800 Balance -2569.5 / -2569.5 -1150 / -1150 -440 / -440 General: Awake, Alert, Oriented x 3 HEENT: PERRL, EOMI, Sclera Non Icteric Neck: Supple, Good ROM, No Lymph Node Enlargement Lungs: Clear to auscultation, Diminished Param Bases Cardiovascular: Regular Rhythm, Normal S2, No Rubs, No Gallops Murmur Murmur: Grade 3/6, Harsh, Mid Systolic, LLSB, LVOT, Sternal [place] 01/12/18 06:05: WBC 16.0 H, RBC 3.03 L, Hgb 8.1 L, Hct 29.4 L, MCV 97.0, MCH 26.7 L, MCHC 27.6 L, RDW 15.5 H, RDW Differential 54.9 H, Plt Count 503 H, MPV 10.1, Immature Gran % (Auto) 0.200, Neut % (Auto) 87.6 H, Lymph % (Auto) 7.0 L, [place] % (Auto) 3.4, Eos % (Auto) 1.6, Baso % (Auto) 0.2, Absolute Neuts (auto) 14.0 H, Total Counted Not Reportable 01/12/18 06:05: Sodium 137, Potassium 3.2 L, Chloride 82 L, Carbon Dioxide > 4 5.0 H*, Anion Gap TNP, BUN 78 H, Creatinine 1.22 H, Est GFR (MDRD) Af Amer 56 L, Est GFR (MDRD) Non-Af 46 L, BUN/Creatinine Ratio 63.9 H, Glucose 190 H, Calcium 9.4 Rhythm: EKG: ECHO: Stress Test: Cardiac Cath: PCI: CT Surgery: Holter monitor: EPS: PPM: CXR: Chest CT Scan: Medical Necessity - Tobacco Use Smoking Status: Former smoker Tobacco Use: Cigarettes Assessment/Plan 1. Acute on chronic diastolic mediated CHF At the present time patient presents with findings compatible with acute on chronic diastolic mediated CHF, superimposed on probable significant aortic stenosis. Given the patient's marked elevated bicarb, would recommend holding her Lasix and metolazone at this time until her bicarb has improved. She is also receiving Diamox based upon her acid-base changes. She has had fairly aggressive diuresis since being admitted but still complains of lower extremity edema and abdominal bloating. She does report that she feels much better since admission however. She will continue oxygen support. She is also being followed by nephrology. 2. Aortic valve stenosis She does have a history of aortic valve stenosis. There is somewhat of a discrepancy between her transthoracic echocardiogram and her diagnostic cardiac catheterization. He has been evaluated at the [facility] for her aortic valve stenosis for consideration for TAVR thus far they have not proceeded with this procedure. Her mean gradient by catheterization was 22 mmHg, which is under the threshold for T AVR. Patient may require a transesophageal echocardiogram to better evaluate the patient's aortic valve stenosis when she has been medically optimized. Patient has evidence of moderate to severe pulmonary hypertension and has had repeated admissions for right heart failure. She had minimal coronary artery disease so this is most likely not contributing to her congestive heart failure presentation. 3. Pulmonary hypertension This may be secondary to not only her cardiovascular disease but her pulmonary disease with her COPD, etc. This can lead to cor pulmonale and right heart failure. He will need continued pulmonary support and medical therapy which does include her diuretic therapy. Continue CPAP therapy. The follow-up echocardiogram, secondary to being a technically diminished quality study, was unable to estimate the RV systolic pressure/right sided pressures. We will hold the patient's Lasix for now, and continue Diamox with her elevated bicarbonate. Her BUN and creatinine of also increased slightly suggesting intravascular contraction. 4. Hyperlipidemia She will continue lipid-lowering therapy as deemed appropriate. 5. Hypertension She will continue antihypertensive therapy with adjustment as needed. 6. Diabetes mellitus She will continue under the care of internal medicine. 7. COPD She does have a history of COPD. She will need continue pulmonary evaluation care. She is on O2 therapy. 8. Anemia Her H/H is improved s/p additional PRBCs. Hopefully this will assist her O2 carrying capacity. Recommend keeping her hemoglobin above 8.0. This note was generated with [employer] dictation software. It may contain incorrect words, spelling, and punctuation that were not noted in checking the note before signing. Code Visit Inpatient E&M: 30686 Subs Hosp L2
--- NOTE | 2018-01-12 12:13 | PCM.PN.HOSP ---
Patient Problems: Active and Suspected Problems (Last Updated 01/02/18 @ 17:11 by David Montana MD) Diastolic CHF, acute on chronic (Acute) CKD stage 3 secondary to diabetes (Acute) Subjective: Patient was seen and examined. She has been refusing to wear her BiPAP on account of claustrophobia. Been sleepy the whole day. Admits to somehow not feeling good. Remains on 6 L of oxygen. Denies any chest pain or fever. Still can complains of pressure in the maxillary region Objective: General: Alert, Oriented x3, Cooperative, - - Mild respiratory distress, on 5 L of oxygen, obese HEENT: Atraumatic, PERRLA, EOMI, Normocephalic Oral: Moist Mucosa Neck: Supple, No JVD, Negative Carotid Bruits Lungs: Normal air movement, Diminished Cardiovascular: Regular rate, Regular Rhythm, Normal S1, Normal S2, Murmur - Holosystolic murmur Abdomen: Bowel Sounds Present, Soft, Non Tender, Non-Distended, No Hepato-splenomegaly Extremities: Edema - Bilateral +2 pitting, nontender, chronic venous stasis Skin: No rashes, No breakdown Musculoskeletal: No Tenderness to Palpation of Joints or Extremities Lymphatic: No Cervical, Supraclavicular, or Inguinal Adenopathy Neurological: Cranial nerves II-XII grossly intact Psych/Mental Status: Normal Affect, Appropriate Vitals/I&O's: Vital Signs Temp Pulse Resp BP Pulse Ox 97.9 F 82 18 116/69 95 01/12/18 11:38 01/12/18 11:38 01/12/18 11:38 01/12/18 11:38 01/12/18 11:38 Oxygen Flow Rate (L/min) 6 Oxygen Delivery Method Nasal Cannula Weight: 112.5 kg Body Mass Index (BMI) 45.4 Intake and Output for Last 24 Hours 01/10/18 01/11/18 01/12/18 23:59 23:59 23:59 Intake Total 880.5 / 880.5 1500 / 1500 360 / 360 Output Total 3450 / 3450 2650 / 2650 800 / 800 Balance -2569.5 / -2569.5 -1150 / -1150 -440 / -440 Laboratory Results 01/11/18 16:38: POC Glucose 190 H 01/11/18 22:20: POC Glucose 210 H 01/12/18 06:05: WBC 16.0 H, RBC 3.03 L, Hgb 8.1 L, Hct 29.4 L, MCV 97.0, MCH 26.7 L, MCHC 27.6 L, RDW 15.5 H, RDW Differential 54.9 H, Plt Count 503 H, MPV 10.1, Immature Gran % (Auto) 0.200, Neut % (Auto) 87.6 H, Lymph % (Auto) 7.0 L, [place] % (Auto) 3.4, Eos % (Auto) 1.6, Baso % (Auto) 0.2, Absolute Neuts (auto) 14.0 H, Absolute Lymphs (auto) 1.13, Total Counted Not Reportable 01/12/18 06:05: Sodium 137, Potassium 3.2 L, Chloride 82 L, Carbon Dioxide > 45.0 H*, Anion Gap TNP, BUN 78 H, Creatinine 1.22 H, Estim Creat Clear Calc 36.00, Est GFR (MDRD) Af Amer 56 L, Est GFR (MDRD) Non-Af 46 L, BUN/Creatinine Ratio 63.9 H, Glucose 190 H, Calcium 9.4 01/12/18 06:45: POC Glucose 206 H 01/12/18 11:34: POC Glucose 208 H Current Medications Acetaminophen (Tylenol) 650 mg PO Q6H PRN PRN PRN Reason: Mild Pain (scale 0-3)/T>100.7 Last Admin: 01/09/18 19:37 Dose: 650 mg Acetazolamide (Diamox) 250 mg PO BID [facility] Last Admin: 01/12/18 09:25 Dose: 250 mg Albuterol Sulfate (Ventolin Aerosols) 2.5 mg INHALATION Q2H PRN PRN PRN Reason: Shortness of breath, wheezing Albuterol/Ipratropium (Duoneb) 3 ml INHALATION Q4H.RT [facility] Last Admin: 01/12/18 11:02 Dose: Not Given Amoxicillin/Clavulanate [facility] ([facility] Last Admin: 01/12/18 09:25 Dose: 875 mg Atorvastatin Calcium (Lipitor) 10 mg PO QHS [facility] Last Admin: 01/11/18 22:41 Dose: 10 mg Escitalopram Oxalate (Lexapro) 10 mg PO DAILY [facility] Last Admin: 01/12/18 09:25 Dose: 10 mg Ferrous Sulfate (Ferrous Sulfate) 325 mg PO TIDCM [facility] Last Admin: 01/12/18 11:33 Dose: 325 mg Flunisolide (Nasarel Nose [place]) 2 spray NASAL BID [facility] Last Admin: 01/12/18 09:30 Dose: 2 spray Fluticasone Propionate (Flonase Nasal [place]) 1 spray NASAL BID [facility] Last Admin: 01/12/18 09:25 Dose: 1 spray Potassium Chloride (Kcl 10meq/100ml) 10 meq in 100 mls @ 100 mls/hr IV BOLUS Q1H [facility] Stop: 01/12/18 16:14 Insulin Human Lispro (Humalog Kwikpen (Bkc)) 0 unit SQ ACHS [facility]; Protocol Last Admin: 01/12/18 11:35 Dose: 3 units Magnesium Hydroxide (Milk Of Magnesia) 30 ml PO DAILY PRN PRN Reason: Constipation Last Admin: 01/05/18 18:09 Dose: 30 ml Metoprolol Tartrate (Lopressor (Beta Jeffery)) 50 mg PO BID [facility] Last Admin: 01/12/18 09:25 Dose: 50 mg Ondansetron HCl (Zofran) 4 mg IV Q8H PRN PRN PRN Reason: Nausea Last Admin: 01/03/18 12:51 Dose: 4 mg Pantoprazole Sodium (Protonix) 40 mg PO BID [facility] Last Admin: 01/12/18 09:25 Dose: 40 mg Potassium Chloride (K-Dur) 20 meq PO DAILYCM [facility] Potassium Chloride (K-Dur) 40 meq PO X1 ONE Stop: 01/12/18 12:12 Sodium Chloride () 5 - 30 ml IV UD PRN PRN Reason: SALINE FLUSH Last Admin: 01/10/18 17:16 Dose: 10 ml Sodium Chloride ([place] Nasal Gaines) 2 spray NASAL TID PRN PRN PRN Reason: NASAL DRYNESS Last Admin: 01/11/18 22:38 Dose: 2 spray Trazodone HCl (Desyrel) 100 mg PO QHS PRN PRN PRN Reason: SLEEP Last Admin: 01/10/18 23:56 Dose: 100 mg Medical Necessity - Tobacco Use Smoking Status: Former smoker Tobacco Use: Cigarettes Assessment/Plan All Active Problems (Last Updated 01/02/18 @ 17:11 by David Montana MD) Diastolic CHF, acute on chronic (Acute) CKD stage 3 secondary to diabetes (Acute) CVA (cerebral vascular accident) (Resolved) CVA (cerebral vascular accident) (Resolved) History of GI bleeding (Resolved) 67 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 1. Acute sinusitis, per history, started on Augmentin, day 2 of 7 days total 2. Acute on chronic hypoxic respiratory failure, on 5L of oxygen, secondary to acute on chronic diastolic CHF, acute on chronic anemia, continue on breathing treatments,wean off oxygen, encourage incentive spirometer, encourage use of BiPAP, will consult pulmonary also 3. Acute on chronic diastolic CHF, on Lasix drip, off Lasix drip and metalazone, on account of contraction alkalosis, will trend BMP 4. Acute metabolic alkalosis secondary to contraction alkalosis/chronic COPD retention, on Diamox, encourage patient to use BiPAP will continue to monitor BMP 5. Acute on chronic anemia, history of AVMs, chronic anemia, iron deficient, on oral iron status post 2 units packed RBC, hemoglobin remains stable, at 8.1, will stop NSAIDS, continue on PPI 6. Indeterminate troponin second to demand ischemia, no history of CAD, on beta-jeffery will continue to monitor 7. Aortic stenosis, mild-moderate, PAT planned for later will continue to monitor. 8. Severe COPD/severe pulmonary hypertension/chronic respiratory failure, and has been refusing to use her BiPAP, claustrophobic, encouraged her to use BiPAP, ask pulmonary to see to get her nasal pillows versus small nasal mask 9. Hypertension, stable, on metoprolol, continue to monitor vitals. 10. Type 2 diabetes mellitus, sugars are fairly uncontrolled, metformin withheld, blood sugars uncontrolled, will start on low-dose Lantus 5 units nightly, continue with Accu-Cheks with insulin sliding scale 11. Morbid obesity, BMI 46, diet recommended 12. DVT prophylaxis -SCDs on account of chronic GI bleed 13. CODE STATUS: Full code I had a long discussion with the patient with regards to compliance with the BiPAP. She refuses to wear her BiPAP. She admits to claustrophobia. We discussed addressing her CODE STATUS in the light of increase CO2 in the blood from retention. She does not want to be on the ventilator if she would be on it for a long time. I explained that we cannot tell if she is going to be on the ventilator for a long time or not. But considering her severe pulmonary hypertension/COPD/heart problems, it is going to be difficult to wean off the ventilator. She has a power of senior trial attorney for healthcare who is her and admits that she has the paperwork. She chooses to be a full code. Agrees to wearing the BiPAP if the facial mask could be changed to a smaller nasal mask or using nasal pillows -discussed with her nurse. Time spent addressing CODE STATUS 20 minutes Code Visit Inpatient E&M: 66093 Subs Hosp L3 Procedures: 39594 Advncd Care Plan 30 Min
[2018-01-12 17:01] LABS: Bedside Glucose 152 mg/dL (70-110)
[2018-01-12] MEDS: Magnesium Hydroxide 30 ML UDC PO (17:26)
--- NOTE | 2018-01-12 20:22 | EKG12_ITS ---
Test Reason : CP Blood Pressure : / mmHG Vent. Rate : 082 BPM Atrial Rate : 082 BPM P-R Int : 140 ms QRS Dur : 150 ms QT Int : 442 ms P-R-T Axes : 062 078 015 degrees QTc Int : 516 ms Normal sinus rhythm Right bundle branch block Abnormal ECG Confirmed by HARMAN GAMBOA, DEVIN ([id number]), editor map MONA NGO ([id number]) on 01/16/2018 4:00:20 PM Referred By: ODRY Confirmed By:DEVIN HAMMER MD
[2018-01-12] MEDS: Ondansetron 4 MG/2 ML Vial IV (20:35)
[2018-01-12] MEDS: 0.9% NaCl Peripheral Flush Adult/Peds IV (20:35)
[2018-01-12] MEDS: Acetaminophen 325 MG Tablet 650 MG PO (20:35)
[2018-01-12] MEDS: Albuterol 2.5 MG/3 ML VIAL.NEB. INHALATION (20:36)
--- NOTE | 2018-01-12 21:09 | CPS ---
pt refusing bipap
[2018-01-12] MEDS: Atorvastatin Calcium 10 MG Tablet PO (22:27)
[2018-01-12 22:41] LABS: Bedside Glucose 173 mg/dL (70-110)
--- NOTE | 2018-01-12 23:00 | CPS ---
PT COULD ONLY TOLERATE FOR ABOUT 30 MIN
[2018-01-13] VITALS (24 sets, daily range): BP systolic 100–124; BP diastolic 47–51; PULSE 68–91; RESP 12–22; TEMP 36.6–37.1; O2SAT 79–96
[2018-01-13 06:40] LABS: BUN 68 mg/dL (7-18); BUN/Creat Ratio 57.1 RATIO (10-20); Calcium,Total 9.3 mg/dL (8.5-10.1); Carbon Dioxide > 45.0 mmol/L (21.0-32.0); Chloride 86 mmol/L (98-107); Creatinine, Serum 1.19 mg/dL (0.55-1.02); EST Glomerular Filtration Rate 48 mL/min (>60); Est Glom Filt Rate - Afr Amer 58 mL/min (>60); Estimated Creatinine Clearance 36.91 ml/min; Glucose 189 mg/dL (74-106); Sodium Level 138 mmol/L (136-145)
--- NOTE | 2018-01-13 06:41 | NURSING ---
CO2 > 45. Critical result called to Ray Thomas RN by Harsha Dover RN.
[2018-01-13 07:01] LABS: Absolute Lymphocyte Count 0.56 X10^3/ul (0.83-4.51); Absolute Neutrophil Count 9.9 X10^3/uL (2.0-7.7); Basophil# 0.07 X10^3/uL; Basophil% 0.6 % (0-1); Eosinophil# 0.25 X10^3/uL; Eosinophils% 2.1 % (0-5); Hematocrit 29.2 % (37-47); Hemoglobin 7.9 g/dl (12.0-15.0); Lymphocyte # 0.56 X10^3/ul (4.0); Lymphocyte % 4.7 % (19-41); Mean Corp Hgb Conc 27.1 g/gl (32-36); Mean Corpuscular Hgb 27.2 pg (27.0-32.0); Mean Corpuscular Volume 100.7 fL (81-99); Mean Platelet Vol. 10.1 fl (6.2-12.0); Monocyte# 0.96 X10^3/uL; Monocyte% 8.1 % (0-10); Neutrophil % 83.7 % (47-70); Platelet Count 495 K/mm3 (150-450); RBC Distribution Width CV 15.1 % (11.6-14.6); RBC Distribution Width SD 53.3 fl (35.1-43.9); White Blood Count 11.8 K/mm3 (4.4-11.0)
[2018-01-13 07:02] LABS: Differential Indicated SCAN CRITERIA MET; POSITIVE COUNT NO; POSITIVE DIFFERENTIAL YES; POSITIVE MORPHOLOGY NO
[2018-01-13 07:12] LABS: Anisocytosis 3+; Differential Comment SCANNED; Hypochromasia 2+; Macrocytosis 2+
[2018-01-13 07:16] LABS: Bedside Glucose 199 mg/dL (70-110)
[2018-01-13] MEDS: Ipratropium/Albuterol Sulfate 3 ML AMPUL.NEB INHALATION ×5 (07:33→22:54)
[2018-01-13 09:26] LABS: Base Excess 26 mmol/L (-2 to +2); Bicarbonate 52.4 mmol/L (22-26); Blood Gas Specimen Type ART; O2 Delivery Device Nasal Can; PO2 50 mmHG (75-100); SITE R Brachial; SO2 78 % (95-99); Time Given 848; Total Carbon Dioxide > 50 mmol/L; pCO2 102.8 mmHg (35-45); pH 7.32 (7.35-7.45)
--- NOTE | 2018-01-13 09:43 | CPS ---
critical values on ABG, called to Dr. Dixon at 0900 and to YASMINE Alvarado at 0900.
--- NOTE | 2018-01-13 09:49 | CPS ---
Patient very sleepy at this time. PEP not done. Decreased O2 to 5.5 lpm.
[2018-01-13] MEDS: AcetaZOLAMIDE 250 MG Tablet PO ×2 (09:56→22:02)
[2018-01-13] MEDS: Insulin Lispro 100 UNIT/ML INSULN.PEN SQ ×4 (09:56→22:03)
[2018-01-13] MEDS: Ferrous Sulfate 325 MG Tablet PO ×3 (09:56→16:11)
[2018-01-13] MEDS: Fluticasone 0.05% 1 SPRAY NASAL.SRY NASAL ×2 (09:56→22:02)
[2018-01-13] MEDS: Escitalopram Oxalate 10 MG Tablet PO (09:57)
[2018-01-13] MEDS: Pantoprazole Sodium 40 MG Tablet PO ×2 (09:57→22:02)
[2018-01-13] MEDS: Amox/Clavulanate 875 MG Tablet PO ×2 (09:58→16:12)
--- NOTE | 2018-01-13 10:17 | PN_ITS ---
Patient Problems: Active and Suspected Problems (Last Updated 01/02/18 @ 17:11 by David Montana MD) Diastolic CHF, acute on chronic (Acute) CKD stage 3 secondary to diabetes (Acute) Vitals/I&O's: Vital Signs Temp Pulse Resp BP Pulse Ox 97.9 F 69 15 101/50 L 94 01/13/18 08:48 01/13/18 09:00 01/13/18 09:00 01/13/18 08:48 01/13/18 09:00 Oxygen Flow Rate (L/min) 6 Oxygen Delivery Method Bi-pap Weight: 111 kg Body Mass Index (BMI) 45.4 Intake and Output for Last 24 Hours 01/11/18 01/12/18 01/13/18 23:59 23:59 23:59 Intake Total 1500 / 1500 1461 / 1461 240 / 240 Output Total 2650 / 2650 1700 / 1700 1450 / 1450 Balance -1150 / -1150 -239 / -239 -1210 / -1210 Laboratory Results 01/12/18 11:34: POC Glucose 208 H 01/12/18 16:34: POC Glucose 152 H 01/12/18 22:18: POC Glucose 173 H 01/12/18 23:17: Troponin I 0.052 H 01/13/18 02:36: Troponin I 0.053 H 01/13/18 05:20: WBC 11.8 H, RBC 2.90 L, Hgb 7.9 L, Hct 29.2 L, MCV 100.7 H, MCH 27.2, MCHC 27.1 L, RDW 15.1 H, RDW Differential 53.3 H, Plt Count 495 H, MPV 10.1, Immature Gran % (Auto) 0.800, Neut % (Auto) 83.7 H, Lymph % (Auto) 4.7 L, [place] % (Auto) 8.1, Eos % (Auto) 2.1, Baso % (Auto) 0.6, Absolute Neuts (auto) 9.9 H, Absolute Lymphs (auto) 0.56 L, Total Counted Not Reportable, Differential Comment SCANNED, Hypochromasia 2+, Anisocytosis 3+, Macrocytosis 2+ 01/13/18 05:20: Sodium 138, Potassium 4.0, Chloride 86 L, Carbon Dioxide > 45.0 H*, Anion Gap TNP, BUN 68 H, Creatinine 1.19 H, Estim Creat Clear Calc 36.91, Est GFR (MDRD) Af Amer 58 L, Est GFR (MDRD) Non-Af 48 L, BUN/Creatinine Ratio 57.1 H, Glucose 189 H, Calcium 9.3 01/13/18 05:20: Troponin I 0.050 H 01/13/18 06:56: POC Glucose 199 H 01/13/18 08:57: Specimen Type ART, Sample Site R Brachial, pH 7.32 L, Bicarbonate Actual 52.4 H, POC Total CO2 > 50, Base Excess 26 H, O2 Saturation 78 L, ABG pCO2 102.8 H*, ABG pO2 50 L, Luis Fernando Test NA, O2 Delivery Device Nasal Can, Liter Flow 5.0, Blood Gas Notified Whom ICU MD, Blood Gas Notified Time 848 Current Medications Acetaminophen (Tylenol) 650 mg PO Q6H PRN PRN PRN Reason: Mild Pain (scale 0-3)/T>100.7 Last Admin: 01/12/18 20:35 Dose: 650 mg Hydrocodone Bitart/Acetaminophen ([place] 5mg-325mg) 1 - 2 tablet PO Q6H PRN PRN PRN Reason: Moderate-severe pain Acetazolamide (Diamox) 250 mg PO BID [facility] Last Admin: 01/13/18 09:56 Dose: 250 mg Albuterol Sulfate (Ventolin Aerosols) 2.5 mg INHALATION Q2H PRN PRN PRN Reason: Shortness of breath, wheezing Last Admin: 01/12/18 20:36 Dose: 2.5 mg Albuterol/Ipratropium (Duoneb) 3 ml INHALATION Q4H.RT [facility] Last Admin: 01/13/18 07:33 Dose: 3 ml Amoxicillin/Clavulanate Potassium (Augmentin Tablet) 875 mg PO BIDCM [facility] Last Admin: 01/13/18 09:58 Dose: 875 mg Atorvastatin Calcium (Lipitor) 10 mg PO QHS [facility] Last Admin: 01/12/18 22:27 Dose: 10 mg Escitalopram Oxalate (Lexapro) 10 mg PO DAILY [facility] Last Admin: 01/13/18 09:57 Dose: 10 mg Ferrous Sulfate (Ferrous Sulfate) 325 mg PO TIDCM [facility] Last Admin: 01/13/18 09:56 Dose: 325 mg Flunisolide (Nasarel Nose [place]) 2 spray NASAL BID [facility] Last Admin: 01/13/18 09:57 Dose: 2 spray Fluticasone Propionate (Flonase Nasal [place]) 1 spray NASAL BID [facility] Last Admin: 01/13/18 09:56 Dose: 1 spray Hydralazine HCl (Apresoline Iv) 10 mg IV Q4H PRN PRN PRN Reason: SBP > 160 Insulin Glargine (Lantus (Bkc)) 5 units SC QHS [facility] Last Admin: 01/12/18 22:30 Dose: 5 units Insulin Human Lispro (Humalog Kwikpen (Bkc)) 0 unit SQ ACHS [facility]; Protocol Last Admin: 01/13/18 09:56 Dose: 3 units Magnesium Hydroxide (Milk Of Magnesia) 30 ml PO DAILY PRN PRN Reason: Constipation Last Admin: 01/12/18 17:26 Dose: 30 ml Metoprolol Tartrate (Lopressor (Beta [place])) 50 mg PO BID [facility] Last Admin: 01/13/18 10:07 Dose: Not Given Morphine Sulfate () 1 - 2 mg IV Q4H PRN PRN PRN Reason: PAIN Nitroglycerin (Nitrostat) 0.4 mg SUBLINGUAL Q5M PRN PRN Reason: Angina pain Ondansetron HCl (Zofran) 4 mg IV Q8H PRN PRN PRN Reason: Nausea Last Admin: 01/12/18 20:35 Dose: 4 mg Pantoprazole Sodium (Protonix) 40 mg PO BID [facility] Last Admin: 01/13/18 09:57 Dose: 40 mg Potassium [facility] Last Admin: 01/13/18 10:00 Dose: 20 meq Sodium Chloride () 5 - 30 ml IV UD PRN PRN Reason: SALINE FLUSH Last Admin: 01/12/18 20:35 Dose: 10 ml Sodium Chloride ([place] Nasal [place]) 2 spray NASAL TID PRN PRN PRN Reason: NASAL DRYNESS Last Admin: 01/11/18 22:38 Dose: 2 spray Trazodone HCl (Desyrel) 100 mg PO QHS PRN PRN PRN Reason: SLEEP Last Admin: 01/10/18 23:56 Dose: 100 mg Medical Necessity - Tobacco Use Smoking Status: Former smoker Tobacco Use: Cigarettes Assessment/Plan All Active Problems (Last Updated 01/02/18 @ 17:11 by David Montana MD) Diastolic CHF, acute on chronic (Acute) CKD stage 3 secondary to diabetes (Acute) CVA (cerebral vascular accident) (Resolved) CVA (cerebral vascular accident) (Resolved) History of GI bleeding (Resolved)
--- NOTE | 2018-01-13 10:54 | PN.CARD_ITS ---
Subjectve: The patient has been more lethargic this morning. She has been undergoing evaluation and care by internal medicine and pulmonology/critical care medicine with follow-up of her acid-base status by labs and ABGs. Objective: Vital Signs Temp Pulse Resp BP Pulse Ox 97.9 F 69 15 101/50 L 94 01/13/18 08:48 01/13/18 09:00 01/13/18 09:00 01/13/18 08:48 01/13/18 09:00 Oxygen Flow Rate (L/min) 6 Oxygen Delivery Method Bi-pap Weight: 244 lb 11.41 oz Body Mass Index (BMI) 45.4 Intake and Output for Last 24 Hours 01/11/18 01/12/18 01/13/18 23:59 23:59 23:59 Intake Total 1500 / 1500 1461 / 1461 240 / 240 Output Total 2650 / 2650 1700 / 1700 1450 / 1450 Balance -1150 / -1150 -239 / -239 -1210 / -1210 General: Lethargic HEENT: Atraumatic, Normocephalic, PERRL, EOMI, Sclera Non Icteric Neck: Supple, Good ROM, No JVD Lungs: - - Diminished breath sounds Cardiovascular: Regular Rhythm, Normal S1, Normal S2 Abdomen: Bowel Sounds Present, Soft, Non Tender, Obese Extremities: Severe RLE Edema, Severe LLE Edema 01/12/18 23:17: Troponin I 0.052 H 01/13/18 02:36: Troponin I 0.053 H 01/13/18 05:20: WBC 11.8 H, RBC 2.90 L, Hgb 7.9 L, Hct 29.2 L, MCV 100.7 H, MCH 27.2, MCHC 27.1 L, RDW 15.1 H, RDW Differential 53.3 H, Plt Count 495 H, MPV 10.1, Immature Gran % (Auto) 0.800, Neut % (Auto) 83.7 H, Lymph % (Auto) 4.7 L, [place] % (Auto) 8.1, Eos % (Auto) 2.1, Baso % (Auto) 0.6, Absolute Neuts (auto) 9.9 H, Total Counted Not Reportable 01/13/18 05:20: Sodium 138, Potassium 4.0, Chloride 86 L, Carbon Dioxide > 45.0 H*, Anion Gap TNP, BUN 68 H, Creatinine 1.19 H, Est GFR (MDRD) Af Amer 58 L, Est GFR (MDRD) Non-Af 48 L, BUN/Creatinine Ratio 57.1 H, Glucose 189 H, Calcium 9.3 01/13/18 05:20: Troponin I 0.050 H 01/13/18 08:57: pH 7.32 L, Bicarbonate Actual 52.4 H, POC Total CO2 > 50, Base Excess 26 H, O2 Saturation 78 L, ABG pCO2 102.8 H*, ABG pO2 50 L, Luis Fernando Test NA Rhythm: Sinus rhythm Medical Necessity - Tobacco Use Smoking Status: Former smoker Tobacco Use: Cigarettes Assessment/Plan 1. Acute on chronic diastolic mediated CHF At the present time patient presents with findings compatible with acute on chronic diastolic mediated CHF. The patient has been receiving diuretic therapy. However based upon her ongoing acid-base issues her furosemide and metolazone are currently on hold. She is receiving Diamox. She will continue oxygen support. She is being followed by pulmonology and nephrology. 2. Aortic valve stenosis She does have a history of aortic valve stenosis. There is somewhat of a discrepancy between her transthoracic echocardiogram and her diagnostic cardiac catheterization. He has been evaluated at the [facility] for her aortic valve stenosis for consideration for TAVR thus far they have not proceeded with this procedure. A follow-up transthoracic echocardiogram was performed. Her aortic valve, is not well visualized, however, spectral Doppler suggest moderately severe aortic valve stenosis. 3. Pulmonary hypertension This may be secondary to not only her cardiovascular disease but her pulmonary disease with her COPD, etc. This can lead to cor pulmonale and right heart failure. He will need continued pulmonary support and medical therapy which does include her diuretic therapy. However, at the moment, based upon her acid base issues, her diuretics are on hold with respect to her traditional furosemide as well as metolazone therapy. The follow-up echocardiogram, secondary to being a technically diminished karen lity study, was unable to estimate the RV systolic pressure/right sided pressures. 4. Hyperlipidemia She will continue lipid-lowering therapy as deemed appropriate. 5. Hypertension She will continue antihypertensive therapy with adjustment as needed. 6. Diabetes mellitus She will continue under the care of internal medicine. 7. COPD She does have a history of COPD. She will need continue pulmonary evaluation care. She is on O2 therapy. 8. Anemia Her hemoglobin has declined again. She may eventually need additional PRBCs. Overall, from a cardiac standpoint, she needs continued multi-specialty support and input. Based upon her ongoing acid-base issues and pulmonary issues and clinical status she is being evaluated by pulmonology. If she cannot adjust her underlying acid base issues and pulmonary status with O2 support and/or CPAP type support then she may need mechanical intubation/ventilation. This note was generated with [employer] dictation software. It may contain incorrect words, spelling, and punctuation that were not noted in checking the note before signing.
--- NOTE | 2018-01-13 10:58 | PN_ITS ---
Patient Problems: Active and Suspected Problems (Last Updated 01/02/18 @ 17:11 by David Montana MD) Diastolic CHF, acute on chronic (Acute) CKD stage 3 secondary to diabetes (Acute) Subjective: Patient well-known to me from the outpatient office. Patient has had significant diuresis over the course of the hospitalization, but continues to feel hazy. Patient has not been able to tolerate BiPAP therapy through a full facemask. Patient was placed on a nasal interface, but nursing reports some leak through the mouth. - Physical Exam General: Alert, Oriented x3, Cooperative, - - Eating breakfast on my evaluation. Interactive. HEENT: Atraumatic, PERRLA, EOMI, Normocephalic, - - Slight scleral injection without icterus Oral: Moist Mucosa, No Gingival or Mucosal Lesions/ Ulcerations Neck: Supple, No Nodes, Trachea Midline, JVD, Right Lungs: No rhonchi, No wheeze, No rales, Diminished, - - Symmetric expansion. No dullness to percussion. Cardiovascular: Regular rate, Regular Rhythm, Normal S1, Normal S2, Murmur - Grade 3 out of 6 systolic ejection murmur at the right sternal border, No rub noted, No Gallop Abdomen: Bowel Sounds Present, Soft, Non Tender, Non-Distended, Obese Extremities: No cyanosis, Capillary Refill Less than 3 Seconds, Edema Vital Signs Temp Pulse Resp BP Pulse Ox 36.6 C 69 15 101/50 L 94 01/13/18 08:48 01/13/18 09:00 01/13/18 09:00 01/13/18 08:48 01/13/18 09:00 Oxygen Flow Rate (L/min) 6 Oxygen Delivery Method Bi-pap Weight: 111 kg Body Mass Index (BMI) 45.4 Intake and Output for Last 24 Hours 01/11/18 01/12/18 01/13/18 23:59 23:59 23:59 Intake Total 1500 / 1500 1461 / 1461 240 / 240 Output Total 2650 / 2650 1700 / 1700 1450 / 1450 Balance -1150 / -1150 -239 / -239 -1210 / -1210 Laboratory Tests Past 24 Hrs 01/12/18 01/13/18 01/13/18 23:17 02:36 05:20 WBC 11.8 H RBC 2.90 L Hgb 7.9 L Hct 29.2 L MCV 100.7 H MCH 27.2 MCHC 27.1 L RDW 15.1 H RDW Differential 53.3 H Plt Count 495 H MPV 10.1 Immature Gran % (Auto) 0.800 Neut % (Auto) 83.7 H Lymph % (Auto) 4.7 L [place] % (Auto) 8.1 Eos % (Auto) 2.1 Baso % (Auto) 0.6 Absolute Neuts (auto) 9.9 H Absolute Lymphs (auto) 0.56 L Total Counted Not Reportable Differential Comment SCANNED Hypochromasia 2+ Anisocytosis 3+ Macrocytosis 2+ Specimen Type Sample Site pH Bicarbonate Actual POC Total CO2 Base Excess O2 Saturation ABG pCO2 ABG pO2 Luis Fernando Test O2 Delivery Device Liter Flow Blood Gas Notified Whom Blood Gas Notified Time Sodium Potassium Chloride Carbon Dioxide Anion Gap BUN Creatinine Estim Creat Clear Calc Est GFR (MDRD) Af Amer Est GFR (MDRD) Non-Af BUN/Creatinine Ratio Glucose Calcium Troponin I 0.052 H 0.053 H 01/13/18 01/13/18 01/13/18 05:20 05:20 08:57 WBC RBC Hgb Hct MCV MCH MCHC RDW RDW Differential Plt Count MPV Immature Gran % (Auto) Neut % (Auto) Lymph % (Auto) [place] % (Auto) Eos % (Auto) Baso % (Auto) Absolute Neuts (auto) Absolute Lymphs (auto) Total Counted Differential Comment Hypochromasia Anisocytosis Macrocytosis Specimen Type ART Sample Site R Brachial pH 7.32 L Bicarbonate Actual 52.4 H POC Total CO2 > 50 Base Excess 26 H O2 Saturation 78 L ABG pCO2 102.8 H* ABG pO2 50 L Luis Fernando Test NA O2 Delivery Device Nasal Can Liter Flow 5.0 Blood Gas Notified Whom ICU MD Blood Gas Notified Time 848 Sodium 138 Potassium 4.0 Chloride 86 L Carbon Dioxide > 45.0 H* Anion Gap TNP BUN 68 H Creatinine 1.19 H Estim Creat Clear Calc 36.91 Est GFR (MDRD) Af Amer 58 L Est GFR (MDRD) Non-Af 48 L BUN/Creatinine Ratio 57.1 H Glucose 189 H Calcium 9.3 Troponin I 0.050 H POC Glucose 01/13/18 01/12/18 01/12/18 06:56 22:18 16:34 POC Glucose 199 H 173 H 152 H 01/12/18 11:34 POC Glucose 208 H Medical Necessity - Tobacco Use Smoking Status: Former smoker Tobacco Use: Cigarettes Assessment/Plan All Active Problems (Last Updated 01/02/18 @ 17:11 by David Montana MD) Diastolic CHF, acute on chronic (Acute) CKD stage 3 secondary to diabetes (Acute) CVA (cerebral vascular accident) (Resolved) CVA (cerebral vascular accident) (Resolved) History of GI bleeding (Resolved)
--- NOTE | 2018-01-13 11:05 | CON.PCM_ITS ---
Problem List (1) Diastolic CHF, acute on chronic Status: Acute (2) CKD stage 3 secondary to diabetes Status: Acute (3) Cerebral infarction, unspecified Status: Chronic (4) Palpitations Status: Chronic (5) Anxiety Status: Chronic (6) Left atrial enlargement Status: Chronic (7) Anemia Status: Chronic Qualifiers: Anemia type: iron deficiency Iron deficiency anemia type: chronic blood loss Qualified Code(s): D50.0 - Iron deficiency anemia secondary to blood loss (chronic) (8) Carotid artery stenosis Status: Chronic (9) Chronic hypoxemic respiratory failure Status: Chronic (10) Pulmonary fibrosis Status: Chronic (11) Tobacco dependence in remission Status: Chronic (12) Diabetes mellitus type II Status: Chronic (13) Pulmonary hypertension Status: Chronic Comment: With PA pressures 55 by cardiac catheterization (14) Hypertension Status: Chronic Qualifiers: (15) HLD (hyperlipidemia) Status: Chronic Qualifiers: (16) GI AVM (gastrointestinal arteriovenous vascular malformation) Status: Chronic Reason for Consult Date of Consultation: 01/13/18 History of Present Illness: The patient is a 67 year old F, with past medical history listed below and well- known to me from the outpatient office, who presented to 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 Patient had reported a 10-day worsening to the point that she had symptoms at rest. Patient is on 6 L nasal cannula at baseline secondary to CHF and pulmonary hypertension. Patient had had a history of GI AVM in the past and initial hemoglobin was noted at 8 g/dL. EKG was relatively unremarkable. Patient was admitted to the floor and placed on diuretic therapy. Over the course of patient's hospitalization, patient has been diuresed over 13 L. Patient has been attempted on BiPAP therapy, but patient is unable to tolerate it secondary to reported claustrophobia. Patient continues to report a fog, but overall feels her respiratory status is improved compared to previous. Patient has received multiple ABGs over the last 48 hours secondary to her mental status showing significant CO2 retention with compensation. Patient has been evaluated at the [facility] previously. Heart catheter ization showed relatively low flows despite moderately severe aortic stenosis on echo. Patient does he Dr. Xavier at baseline. Patient denies any persistent fever, chills, nausea or vomiting as an outpatient. Patient does report dyspnea at rest on presentation. Review of systems otherwise negative x10 systems. Past Medical History Past Medical History (Chronic Problems): Chronic Problems (Last Updated 01/02/18 @ 17:11 by David Montana MD) Chronic diastolic (congestive) heart failure (Chronic) Cerebral infarction, unspecified (Chronic) Palpitations (Chronic) Anxiety (Chronic) Left atrial enlargement (Chronic) Hypersomnia (Chronic) Anemia (Chronic) Carotid artery stenosis (Chronic) Chronic hypoxemic respiratory failure (Chronic) Pulmonary fibrosis (Chronic) 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 3 severe COPD by GOLD classification (Chronic) Aortic stenosis (Chronic) Moderate to severe with valve area 1.1 on cardiac catheterization in 2013 Diabetes mellitus type II (Chronic) Pulmonary hypertension (Chronic) With PA pressures 55 by cardiac catheterization Hypertension (Chronic) HLD (hyperlipidemia) (Chronic) 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) Medical History: Medical History (Last Updated 01/02/18 @ 17:11 by David Montana MD) Palpitations (Chronic) R00.2 Left atrial enlargement (Chronic) I51.7 Hypersomnia (Chronic) G47.10 Anemia (Chronic) D64.9 Carotid artery stenosis (Chronic) I65.29 Chronic hypoxemic respiratory failure (Chronic) J96.11 Pulmonary fibrosis (Chronic) J84.10 Tobacco dependence in remission (Chronic) F17.201 Stage 3 severe COPD by GOLD classification (Chronic) J44.9 Aortic stenosis (Chronic) Moderate to severe with valve area 1.1 on cardiac catheterization in 2013 Diabetes mellitus type II (Chronic) Pulmonary hypertension (Chronic) With PA pressures 55 by cardiac catheterization Hypertension (Chronic) I10 HLD (hyperlipidemia) (Chronic) E78.5 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) Q27.33 History of hysterectomy Z90.710 Shortness of breath R06.02 CVA (cerebral vascular accident) (Resolved) I63.9 History of GI bleeding (Resolved) Status post EGD and colonoscopy by Dr. Blackmon in 2011, suspected AV malformations Acute on chronic anemia (Inactive) Allergies No Known Allergies Allergy (Verified 01/02/18 15:03) Home Medications: Ambulatory Orders Medication Instructions Recorded Metformin HCl [Glucophage] 1,000 mg PO BIDCM 01/15/14 Simvastatin [Zocor] 20 mg PO QHS 01/15/14 Escitalopram Oxalate [Lexapro] 10 mg PO DAILY 06/29/15 traZODone [Desyrel] 100 mg PO QHS PRN PRN 06/29/15 Budesonide/Formoterol Fumarate 2 puff IH BID 03/27/17 [Symbicort 160-4.5 Mcg Inhaler] Fluticasone 0.05% [Flonase Nasal 1 spray NASAL BID 04/24/17 [place]] Acetaminophen [Tylenol Tablet] 650 mg PO Q6H PRN PRN tab 06/10/17 Ipratropium/Albuterol Sulfate 3 ml INHALATION Q4H.RT ampul.neb 06/10/17 [Duoneb] Furosemide [Lasix] 80 mg PO BID 09/02/17 ferrous sulfate 325 mg (65 mg 325 mg PO TID tab 09/09/17 iron) tablet metoprolol tartrate 50 mg tablet 50 mg PO BID #180 tab 11/12/17 Albuterol Sulfate [Ventolin Hfa] 1 - 2 puff INHALATION PRN PRN 01/02/18 Surgical History: Surgical History (Last Reviewed 01/02/18 @ 14:14 by Jaylin Bernabe) History of hernia repair Z98.890, Z87.19 Surgical History: herniorrhaphy, hysterectomy, - Smoking Status: Former smoker Tobacco Use: Cigarettes Alcohol: None Drugs: None - *Family History Paternal Family History: Family History (Last Reviewed 05/02/17 @ 11:14 by Yakelin Berkowitz) Mother Heart disease Father CAD (coronary artery disease) Hypertension Brother Hypertension History Items: Heart Disease Maternal Family History: Family History (Last Reviewed 05/02/17 @ 11:14 by Yakelin Berkowitz) Mother Heart disease Father CAD (coronary artery disease) Hypertension Brother Hypertension History Items: Heart Disease Review of Systems Comment: Difficult to obtain, but otherwise negative x10 systems unless stated in HPI Patient Problems: Active and Suspected Problems (Last Updated 01/02/18 @ 17:11 by David Montana MD) Diastolic CHF, acute on chronic (Acute) CKD stage 3 secondary to diabetes (Acute) Objective: Chest x-ray on presentation showed some cephalization findings consistent with CHF. Echocardiogram during this hospitalization showed an EF of 65% with diastolic dysfunction, moderately enlarged left atrium, mild to moderate mitral annular calcification with moderate to severe aortic stenosis. Valve area was not noted. - Physical Exam General: Oriented x3, Cooperative, - - Mild conversational dyspnea. RASS -1. HEENT: Atraumatic, PERRLA, EOMI, Normocephalic, - - Scleral injection without icterus Oral: Moist Mucosa, No Gingival or Mucosal Lesions/ Ulcerations Neck: Supple, No Nodes, Trachea Midline, JVD, Right Lungs: No rhonchi, Diminished, Rales, Wheezes Cardiovascular: Regular rate, Regular Rhythm, Normal S1, Normal S2, Murmur - Grade 3 out of 6 systolic ejection murmur at the right sternal border, No rub noted, No Gallop Abdomen: Bowel Sounds Present, Soft, Non Tender, Non-Distended, Obese Extremities: No cyanosis, Clubbing, Edema - 2+ lower extremity Skin: No rashes, No breakdown Musculoskeletal: No Tenderness to Palpation of Joints or Extremities, No Muscle Wasting Lymphatic: No Cervical, Supraclavicular, or Inguinal Adenopathy Neurological: Cranial nerves II-XII grossly intact, Neuro grossly intact, Motor Exam 5/5 strength throughout Psych/Mental Status: Appropriate, Flat Affect Vital Signs Temp Pulse Resp BP Pulse Ox 36.6 C 69 15 101/50 L 94 01/13/18 08:48 01/13/18 09:00 01/13/18 09:00 01/13/18 08:48 01/13/18 09:00 Oxygen Flow Rate (L/min) 6 Oxygen Delivery Method Bi-pap Weight: 111 kg Body Mass Index (BMI) 45.4 Intake and Output for Last 24 Hours 01/11/18 01/12/18 01/13/18 23:59 23:59 23:59 Intake Total 1500 / 1500 1461 / 1461 240 / 240 Output Total 2650 / 2650 1700 / 1700 1450 / 1450 Balance -1150 / -1150 -239 / -239 -1210 / -1210 Laboratory Tests Past 24 Hrs 01/12/18 01/13/18 01/13/18 23:17 02:36 05:20 WBC 11.8 H RBC 2.90 L Hgb 7.9 L Hct 29.2 L MCV 100.7 H MCH 27.2 MCHC 27.1 L RDW 15.1 H RDW Differential 53.3 H Plt Count 495 H MPV 10.1 Immature Gran % (Auto) 0.800 Neut % (Auto) 83.7 H Lymph % (Auto) 4.7 L [place] % (Auto) 8.1 Eos % (Auto) 2.1 Baso % (Auto) 0.6 Absolute Neuts (auto) 9.9 H Absolute Lymphs (auto) 0.56 L Total Counted Not Reportable Differential Comment SCANNED Hypochromasia 2+ Anisocytosis 3+ Macrocytosis 2+ Specimen Type Sample Site pH Bicarbonate Actual POC Total CO2 Base Excess O2 Saturation ABG pCO2 ABG pO2 [place] Test O2 Delivery Device Liter Flow Blood Gas Notified Whom Blood Gas Notified Time Sodium Potassium Chloride Carbon Dioxide Anion Gap BUN Creatinine Estim Creat Clear Calc Est GFR (MDRD) Af Amer Est GFR (MDRD) Non-Af BUN/Creatinine Ratio Glucose Calcium Troponin I 0.052 H 0.053 H 01/13/18 01/13/18 01/13/18 05:20 05:20 08:57 WBC RBC Hgb Hct MCV MCH MCHC RDW RDW Differential Plt Count MPV Immature Gran % (Auto) Neut % (Auto) Lymph % (Auto) [place] % (Auto) Eos % (Auto) Baso % (Auto) Absolute Neuts (auto) Absolute Lymphs (auto) Total Counted Differential Comment Hypochromasia Anisocytosis Macrocytosis Specimen Type ART Sample Site R Brachial pH 7.32 L Bicarbonate Actual 52.4 H POC Total CO2 > 50 Base Excess 26 H O2 Saturation 78 L ABG pCO2 102.8 H* ABG pO2 50 L Luis Fernando Test NA O2 Delivery Device Nasal Can Liter Flow 5.0 Blood Gas Notified Whom ICU MD Blood Gas Notified Time 848 Sodium 138 Potassium 4.0 Chloride 86 L Carbon Dioxide > 45.0 H* Anion Gap TNP BUN 68 H Creatinine 1.19 H Estim Creat Clear Calc 36.91 Est GFR (MDRD) Af Amer 58 L Est GFR (MDRD) Non-Af 48 L BUN/Creatinine Ratio 57.1 H Glucose 189 H Calcium 9.3 Troponin I 0.050 H POC Glucose 01/13/18 01/12/18 01/12/18 06:56 22:18 16:34 POC Glucose 199 H 173 H 152 H 01/12/18 11:34 POC Glucose 208 H Assessment/Plan All Active Problems (Last Updated 10/18/18 @ 17:11 by David Montana MD) Diastolic CHF, acute on chronic (Acute) CKD stage 3 secondary to diabetes (Acute) CVA (cerebral vascular accident) (Resolved) CVA (cerebral vascular accident) (Resolved) History of GI bleeding (Resolved) RECOMMENDATIONS: 1. Add chinstrap to nasal BiPAP 2. Agree with trying to keep patient euvolemic 3. BiPAP with sleep and as needed 4. Wean oxygen as tolerated to keep saturations 90-94% 5. Outpatient evaluation for TAVR IMPRESSIONS: 1. Acute on chronic combined respiratory failure secondary to acute on chronic diastolic congestive heart failure Patient has been receiving significant diuresis over the course of the hospitalization. Patient remains on 5-6 L nasal cannula oxygen to maintain saturations. Patient's CO2 is elevated from a baseline of approximately 80 to over 100. This may be secondary to contraction alkalosis. Patient is on Diamox, which may temporize patient's condition. However, patient's mental status is likely secondary to an element of metabolic encephalopathy secondary to CO2 retention. Would attempt to keep patient euvolemic at this time. Adding BiPAP with chinstrap may be helpful. 2. Acute on chronic blood loss anemia Patient does have a history of GI AVMs in the past. Patient's hemoglobin is currently stable and acceptable. Transfuse to keep hemoglobin greater than 8 given cardiac condition. Patient is on a PPI at appropriate dosing. 3. Aortic stenosis Exact morphology is unclear at this time. Some testing suggest severe disease and others suggest that intervention is not required. Patient has had multiple admissions over the last year secondary to fluid overload requiring diuresis of 10-12 L of fluid. Patient would benefit from outpatient evaluation to see if surgical intervention would be appropriate. 4. Morbid obesity/type 2 diabetes mellitus/hypertension/advanced age/acute sinusitis Complicates care, management, recovery and prognosis. Likely okay to continue with baseline medications. Patient with variable p.o. intake. Would avoid metformin given patient's renal function and active diuresis previously. Patient is on antibiotics for reported acute sinusitis. Code Visit Inpatient E&M: [id number] Init Hosp L3
[2018-01-13 11:30] LABS: Bedside Glucose 203 mg/dL (70-110)
--- NOTE | 2018-01-13 12:20 | CASEMGMT ---
This YASMINE ARREAGA spoke with Juanis at [facility] and she states that pt is still current with them for palliative care and requests clinicals be faxed at this time. Per Juanis, pt has not been responding to communication from them recently. Updated clinicals faxed at this time. [facility] to be notified when pt discharged. Ander UNDERWOOD CM
--- NOTE | 2018-01-13 12:33 | CPS ---
Nasal Mask with chin strap, borrowed from [facility].
--- NOTE | 2018-01-13 12:35 | CPS ---
Nursing reported, patient taken off bipap at 0945.
--- NOTE | 2018-01-13 13:55 | PCM.PN.REN ---
Patient Problems: Active and Suspected Problems (Last Updated 01/02/18 @ 17:11 by David Montnaa MD) Diastolic CHF, acute on chronic (Acute) CKD stage 3 secondary to diabetes (Acute) Subjective: f/u tanja - feels ok - no new complaints - Physical Exam Vital Signs Temp Pulse Resp BP Pulse Ox 97.9 F 68 18 101/50 L 95 01/13/18 08:48 01/13/18 11:50 01/13/18 11:50 01/13/18 08:48 01/13/18 12:01 Oxygen Flow Rate (L/min) 5.5 Oxygen Delivery Method Bi-pap Weight: 111 kg Body Mass Index (BMI) 45.4 Intake and Output for Last 24 Hours 01/11/18 01/12/18 01/13/18 23:59 23:59 23:59 Intake Total 1500 / 1500 1461 / 1461 540 / 540 Output Total 2650 / 2650 1700 / 1700 2050 / 2050 Balance -1150 / -1150 -239 / -239 -1510 / -1510 Laboratory Tests Past 24 Hrs 01/12/18 01/13/18 01/13/18 23:17 02:36 05:20 WBC 11.8 H RBC 2.90 L Hgb 7.9 L Hct 29.2 L MCV 100.7 H MCH 27.2 MCHC 27.1 L RDW 15.1 H RDW Differential 53.3 H Plt Count 495 H MPV 10.1 Immature Gran % (Auto) 0.800 Neut % (Auto) 83.7 H Lymph % (Auto) 4.7 L [place] % (Auto) 8.1 Eos % (Auto) 2.1 Baso % (Auto) 0.6 Absolute Neuts (auto) 9.9 H Absolute Lymphs (auto) 0.56 L Total Counted Not Reportable Differential Comment SCANNED Hypochromasia 2+ Anisocytosis 3+ Macrocytosis 2+ Specimen Type Sample Site pH Bicarbonate Actual POC Total CO2 Base Excess O2 Saturation ABG pCO2 ABG pO2 [place] Test O2 Delivery Device Liter Flow Blood Gas Notified Whom Blood Gas Notified Time Sodium Potassium Chloride Carbon Dioxide Anion Gap BUN Creatinine Estim Creat Clear Calc Est GFR (MDRD) Af Amer Est GFR (MDRD) Non-Af BUN/Creatinine Ratio Glucose Calcium Troponin I 0.052 H 0.053 H 01/13/18 01/13/18 01/13/18 05:20 05:20 08:57 WBC RBC Hgb Hct MCV MCH MCHC RDW RDW Differential Plt Count MPV Immature Gran % (Auto) Neut % (Auto) Lymph % (Auto) [place] % (Auto) Eos % (Auto) Baso % (Auto) Absolute Neuts (auto) Absolute Lymphs (auto) Total Counted Differential Comment Hypochromasia Anisocytosis Macrocytosis Specimen Type ART Sample Site R Brachial pH 7.32 L Bicarbonate Actual 52.4 H POC Total CO2 > 50 Base Excess 26 H O2 Saturation 78 L ABG pCO2 102.8 H* ABG pO2 50 L Luis Fernando Test NA O2 Delivery Device Nasal Can Liter Flow 5.0 Blood Gas Notified Whom ICU Blood Gas Notified Time 848 Sodium 138 Potassium 4.0 Chloride 86 L Carbon Dioxide > 45.0 H* Anion Gap TNP BUN 68 H Creatinine 1.19 H Estim Creat Clear Calc 36.91 Est GFR (MDRD) Af Amer 58 L Est GFR (MDRD) Non-Af 48 L BUN/Creatinine Ratio 57.1 H Glucose 189 H Calcium 9.3 Troponin I 0.050 H POC Glucose 01/13/18 01/13/18 01/12/18 11:25 06:56 22:18 POC Glucose 203 H 199 H 173 H 01/12/18 16:34 POC Glucose 152 H Physical examination sleepy but responds to voice and follows commands, no acute distress oral mucosa moist b/s diminished s1s2 + AYUSH abdomen obese, non tender +1 dependent edema Medical Necessity - Tobacco Use Smoking Status: Former smoker Tobacco Use: Cigarettes Assessment/Plan All Active Problems (Last Updated 01/02/18 @ 17:11 by David Montana MD) Diastolic CHF, acute on chronic (Acute) CKD stage 3 secondary to diabetes (Acute) CVA (cerebral vascular accident) (Resolved) CVA (cerebral vascular accident) (Resolved) History of GI bleeding (Resolved) Assessment and Plan 1. TANJA on CKD - Scr: stable at 1.19mg/dL 2. Acid base - underlying chronic respiratory acidosis with metabolic compensation - agree with component of contraction alkalosis - goal of HCO3 ~42 - continue with diamox 3. Volume - overall improve 4. Anemia - check iron studies Discussed with primary team.
[2018-01-13 14:37] LABS: Ferritin 24 ng/mL (8-252); Iron Binding Capacity,Total 386 ug/dL (250-450)
--- NOTE | 2018-01-13 14:57 | CPS ---
patient sleeping in chair, placed back on BiPAP with nasal mask and chin strap.
--- NOTE | 2018-01-13 14:58 | CPS ---
Patient reported coming off the BiPAP around this time.
--- NOTE | 2018-01-13 16:02 | PN_ITS ---
Patient Problems: Active and Suspected Problems (Last Updated 01/02/18 @ 17:11 by David Montana MD) Diastolic CHF, acute on chronic (Acute) CKD stage 3 secondary to diabetes (Acute) Subjective: Patient was seen and examined. Been very lethargic in the morning. Denies any chest pain or worsening shortness of breath. Remains on 6 L of oxygen. Objective: Physical exam: General: Alert, Oriented x3, Cooperative, - - Mild respiratory distress, on 6 L of oxygen, obese HEENT: Atraumatic, PERRLA, EOMI, Normocephalic Oral: Moist Mucosa Neck: Supple, No JVD, Negative Carotid Bruits Lungs: Normal air movement, Diminished Cardiovascular: Regular rate, Regular Rhythm, Normal S1, Normal S2, Murmur - Holosystolic murmur Abdomen: Bowel Sounds Present, Soft, Non Tender, Non-Distended, No Hepato- splenomegaly Extremities: Edema - Bilateral +2 pitting, nontender, chronic venous stasis Skin: No rashes, No breakdown Musculoskeletal: No Tenderness to Palpation of Joints or Extremities Lymphatic: No Cervical, Supraclavicular, or Inguinal Adenopathy Neurological: Cranial nerves II-XII grossly intact Psych/Mental Status: Normal Affect, Appropriate Vitals/I&O's: Vital Signs Temp Pulse Resp BP Pulse Ox 97.8 F 85 16 110/51 L 94 01/13/18 14:25 01/13/18 15:00 01/13/18 14:25 01/13/18 14:25 01/13/18 14:25 Oxygen Flow Rate (L/min) 6 Oxygen Delivery Method Nasal Cannula Weight: 111 kg Body Mass Index (BMI) 45.4 Intake and Output for Last 24 Hours 01/11/18 01/12/18 01/13/18 23:59 23:59 23:59 Intake Total 1500 / 1500 1461 / 1461 540 / 540 Output Total 2650 / 2650 1700 / 1700 2049 / 2049 Balance -1150 / -1150 -239 / -239 -1510 / -1510 Laboratory Results 01/12/18 16:34: POC Glucose 152 H 01/12/18 22:18: POC Glucose 173 H 01/12/18 23:17: Troponin I 0.052 H 01/13/18 02:36: Troponin I 0.053 H 01/13/18 05:20: WBC 11.8 H, RBC 2.90 L, Hgb 7.9 L, Hct 29.2 L, MCV 100.7 H, MCH 27.2, MCHC 27.1 L, RDW 15.1 H, RDW Differential 53.3 H, Plt Count 495 H, MPV 10.1, Immature Gran % (Auto) 0.800, Neut % (Auto) 83.7 H, Lymph % (Auto) 4.7 L, [place] % (Auto) 8.1, Eos % (Auto) 2.1, Baso % (Auto) 0.6, Absolute Neuts (auto) 9.9 H, Absolute Lymphs (auto) 0.56 L, Total Counted Not Reportable, Differential Comment SCANNED, Hypochromasia 2+, Anisocytosis 3+, Macrocytosis 2+ 01/13/18 05:20: Sodium 138, Potassium 4.0, Chloride 86 L, Carbon Dioxide > 45.0 H*, Anion Gap TNP, BUN 68 H, Creatinine 1.19 H, Estim Creat Clear Calc 36.91, Est GFR (MDRD) Af Amer 58 L, Est GFR (MDRD) Non-Af 48 L, BUN/Creatinine Ratio 57.1 H, Glucose 189 H, Calcium 9.3 01/13/18 05:20: Troponin I 0.050 H 01/13/18 05:20: TIBC 386, Ferritin 24 01/13/18 06:56: POC Glucose 199 H 01/13/18 08:57: Specimen Type ART, Sample Site R Brachial, pH 7.32 L, Bicarbonate Actual 52.4 H, POC Total CO2 > 50, Base Excess 26 H, O2 Saturation 78 L, ABG pCO2 102.8 H*, ABG pO2 50 L, Luis Fernando Test NA, O2 Delivery Device Nasal Can, Liter Flow 5.0, Blood Gas Notified Whom ICU MD, Blood Gas Notified Time 848 01/13/18 11:25: POC Glucose 203 H Current Medications Acetaminophen (Tylenol) 650 mg PO Q6H PRN PRN PRN Reason: Mild Pain (scale 0-3)/T>100.7 Last Admin: 01/12/18 20:35 Dose: 650 mg Hydrocodone Bitart/Acetaminophen ([place] 5mg-325mg) 1 - 2 tablet PO Q6H PRN PRN PRN Reason: Moderate-severe pain Acetazolamide (Diamox) 250 mg PO BID [facility] Last Admin: 01/13/18 09:56 Dose: 250 mg Albuterol Sulfate (Ventolin Aerosols) 2.5 mg INHALATION Q2H PRN PRN PRN Reason: Shortness of breath, wheezing Last Admin: 01/12/18 20:36 Dose: 2.5 mg Albuterol/Ipratropium (Duoneb) 3 ml INHALATION Q4H.RT [facility] Last Admin: 01/13/18 15:52 Dose: 3 ml Amoxicillin/[facility]ulanate [facility] ([facility] Last Admin: 01/13/18 09:58 Dose: 875 mg Atorvastatin Calcium (Lipitor) 10 mg PO QHS [facility] Last Admin: 01/12/18 22:27 Dose: 10 mg Escitalopram Oxalate (Lexapro) 10 mg PO DAILY [facility] Last Admin: 01/13/18 09:57 Dose: 10 mg Ferrous Sulfate (Ferrous Sulfate) 325 mg PO TIDCM [facility] Last Admin: 01/13/18 11:27 Dose: 325 mg Flunisolide (Nasarel Nose [place]) 2 spray NASAL BID [facility] Last Admin: 01/13/18 09:57 Dose: 2 spray Fluticasone Propionate (Flonase Nasal [place]) 1 spray NASAL BID [facility] Last Admin: 01/13/18 09:56 Dose: 1 spray Hydralazine HCl (Apresoline Iv) 10 mg IV Q4H PRN PRN PRN Reason: SBP > 160 Insulin Glargine (Lantus (Bkc)) 5 units SC QHS [facility] Last Admin: 01/12/18 22:30 Dose: 5 units Insulin Human Lispro (Humalog Kwikpen (Bkc)) 0 unit SQ ACHS [facility]; Protocol Last Admin: 01/13/18 11:26 Dose: 3 units Magnesium Hydroxide (Milk Of Magnesia) 30 ml PO DAILY PRN PRN Reason: Constipation Last Admin: 01/12/18 17:26 Dose: 30 ml Metoprolol Tartrate (Lopressor (Beta Jeffery)) 50 mg PO BID [facility] Last Admin: 01/13/18 10:07 Dose: Not Given Morphine Sulfate () 1 - 2 mg IV Q4H PRN PRN PRN Reason: PAIN Nitroglycerin (Nitrostat) 0.4 mg SUBLINGUAL Q5M PRN PRN Reason: Angina pain Ondansetron HCl (Zofran) 4 mg IV Q8H PRN PRN PRN Reason: Nausea Last Admin: 01/12/18 20:35 Dose: 4 mg Pantoprazole Sodium (Protonix) 40 mg PO BID [facility] Last Admin: 01/13/18 09:57 Dose: 40 mg Potassium Chloride (K-Dur) 20 meq PO DAILYCM [facility] Last Admin: 01/13/18 10:00 Dose: 20 meq Sodium Chloride () 5 - 30 ml IV UD PRN PRN Reason: SALINE FLUSH Last Admin: 01/12/18 20:35 Dose: 10 ml Sodium Chloride ([place] Nasal [place]) 2 spray NASAL TID PRN PRN PRN Reason: NASAL DRYNESS Last Admin: 01/11/18 22:38 Dose: 2 spray Trazodone HCl (Desyrel) 100 mg PO QHS PRN PRN PRN Reason: SLEEP Last Admin: 01/10/18 23:56 Dose: 100 mg Medical Necessity - Tobacco Use Smoking Status: Former smoker Tobacco Use: Cigarettes Assessment/Plan All Active Problems (Last Updated 01/02/18 @ 17:11 by David Montana MD) Diastolic CHF, acute on chronic (Acute) CKD stage 3 secondary to diabetes (Acute) CVA (cerebral vascular accident) (Resolved) CVA (cerebral vascular accident) (Resolved) History of GI bleeding (Resolved) 67 years old female 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 1. Acute sinusitis, per history, started on Augmentin, day 3 of 7 days total 2. Acute on chronic hypoxic respiratory failure, on 6L of oxygen, secondary to acute on chronic diastolic CHF, acute on chronic anemia, continue on breathing treatments,wean off oxygen, encourage incentive spirometer, encourage use of BiPAP, will consult pulmonary also 3. Acute on chronic diastolic CHF, on Lasix drip, off Lasix drip and metalazone, on account of contraction alkalosis, will trend BMP 4. Acute metabolic alkalosis secondary to contraction alkalosis/chronic COPD retention, on Diamox, encourage patient to use BiPAP will continue to monitor BMP 5. Acute on chronic anemia, history of AVMs, chronic anemia, iron deficient, on oral iron status post 2 units packed RBC, hemoglobin remains stable, at 8.1, will stop NSAIDS, continue on PPI 6. Indeterminate troponin second to demand ischemia, no history of CAD, on beta-jeffery will continue to monitor 7. Aortic stenosis, mild-moderate, PAT planned for later will continue to mo nitor. 8. Severe COPD/severe pulmonary hypertension/chronic respiratory failure, and has been refusing to use her BiPAP, claustrophobic, encouraged her to use BiPAP, pulmonology consulted, recommend continued use of BiPAP 9. Hypertension, stable, on metoprolol, continue to monitor vitals. 10. Type 2 diabetes mellitus, sugars are relatively better controlled, metformin withheld, blood sugars uncontrolled, started on low-dose Lantus 5 units nightly, continue with Accu-Cheks with insulin sliding scale 11. Morbid obesity, BMI 46, diet recommended 12. DVT prophylaxis -SCDs on account of chronic GI bleed 13. CODE STATUS: Full code Code Visit Inpatient E&M: 47182 Subs Hosp L2
[2018-01-13 16:21] LABS: Bedside Glucose 207 mg/dL (70-110)
--- NOTE | 2018-01-13 17:07 | CPS ---
Patient to do PEP therapy on own.
[2018-01-13] MEDS: Metoprolol Tartrate 50 MG Tablet PO (22:02)
[2018-01-13] MEDS: Atorvastatin Calcium 10 MG Tablet PO (22:02)
[2018-01-13 22:10] LABS: Bedside Glucose 184 mg/dL (70-110)
[2018-01-13] MEDS: traZODone 100 MG Tablet PO (22:34)
[2018-01-14] VITALS (25 sets, daily range): BP systolic 93–120; BP diastolic 48–65; PULSE 65–95; RESP 12–22; TEMP 36.4–37.2; O2SAT 90–97
[2018-01-14] MEDS: Ipratropium/Albuterol Sulfate 3 ML AMPUL.NEB INHALATION ×6 (03:01→23:04)
[2018-01-14 07:21] LABS: Absolute Lymphocyte Count 0.51 X10^3/ul (0.83-4.51); Absolute Neutrophil Count 14.2 X10^3/uL (2.0-7.7); Basophil# 0.04 X10^3/uL; Basophil% 0.2 % (0-1); Eosinophil# 0.18 X10^3/uL; Eosinophils% 1.1 % (0-5); Hematocrit 26.5 % (37-47); Hemoglobin 7.2 g/dl (12.0-15.0); Lymphocyte # 0.51 X10^3/ul (4.0); Lymphocyte % 3.1 % (19-41); Mean Corp Hgb Conc 27.2 g/gl (32-36); Mean Corpuscular Hgb 26.9 pg (27.0-32.0); Mean Corpuscular Volume 98.9 fL (81-99); Mean Platelet Vol. 9.9 fl (6.2-12.0); Monocyte# 1.18 X10^3/uL; Monocyte% 7.3 % (0-10); Neutrophil # 14.19 X10^3/uL (2.7-7.7); Neutrophil % 87.6 % (47-70); Platelet Count 476 K/mm3 (150-450); RBC Distribution Width CV 15.3 % (11.6-14.6); RBC Distribution Width SD 52.5 fl (35.1-43.9); Red Blood Count 2.68 M/mm3 (4.2-5.4); White Blood Count 16.2 K/mm3 (4.4-11.0)
[2018-01-14 07:30] LABS: Differential Indicated SCAN CRITERIA MET; POSITIVE COUNT NO; POSITIVE DIFFERENTIAL YES; POSITIVE MORPHOLOGY YES
[2018-01-14 07:34] LABS: BUN 59 mg/dL (7-18); BUN/Creat Ratio 54.1 RATIO (10-20); Calcium,Total 9.3 mg/dL (8.5-10.1); Carbon Dioxide > 45.0 mmol/L (21.0-32.0); Chloride 89 mmol/L (98-107); Creatinine, Serum 1.09 mg/dL (0.55-1.02); EST Glomerular Filtration Rate 53 mL/min (>60); Est Glom Filt Rate - Afr Amer 64 mL/min (>60); Estimated Creatinine Clearance 40.29 ml/min; Glucose 193 mg/dL (74-106); Magnesium 2.1 mg/dL (1.6-2.6); Phosphorus 3.9 mg/dL (2.5-4.9); Potassium 3.7 mmol/L (3.5-5.1); Sodium Level 140 mmol/L (136-145)
[2018-01-14 07:41] LABS: Bedside Glucose 207 mg/dL (70-110)
[2018-01-14 07:45] LABS: Anisocytosis RARE; Hypochromasia 2+; Platelet Estimate ADEQUATE (ADEQ); Polychromasia 1+
--- NOTE | 2018-01-14 08:52 | PCM.PN.CARD ---
Subjectve: The patient appears to be awake and alert at this time. She continues with her chronic shortness of breath and peripheral pitting edema. She states she has worn the BiPAP device on and off since yesterday. However she cannot wear it for any prolonged period of time. She states she does not want to be placed on the ventilator thus she is attempting to wear the BiPAP as best as possible. Objective: Vital Signs Temp Pulse Resp BP Pulse Ox 98.9 F 84 16 113/65 94 01/14/18 03:29 01/14/18 07:14 01/14/18 07:14 01/14/18 03:29 01/14/18 07:14 Oxygen Flow Rate (L/min) 6 Oxygen Delivery Method Nasal Cannula Weight: 245 lb 2.464 oz Body Mass Index (BMI) 45.4 Intake and Output for Last 24 Hours 01/12/18 01/13/18 01/14/18 23:59 23:59 23:59 Intake Total 1461 / 1461 1230 / 1230 480 / 480 Output Total 1700 / 1700 3075 / 3075 700 / 700 Balance -239 / -239 -1845 / -1845 -220 / -220 General: Awake, Alert, Oriented x 3, Cooperative, Obese HEENT: Atraumatic, Normocephalic, PERRL, EOMI, Sclera Non Icteric Oral: Moist Mucosa Neck: Supple, Good ROM, No JVD Lungs: - - Diminished breath sounds bilaterally Cardiovascular: Regular Rhythm, Premature Ectopic Beats, Normal S1, Normal S2 Abdomen: Bowel Sounds Present, Soft, Non Tender, Obese Extremities: Severe RLE Edema, Severe LLE Edema Neurological: No Focal Motor or Sensory Deficit Psych/Mental Status: Appropriate 01/13/18 05:20: TIBC 386, Ferritin 24 01/13/18 08:57: pH 7.32 L, Bicarbonate Actual 52.4 H, POC Total CO2 > 50, Base Excess 26 H, O2 Saturation 78 L, ABG pCO2 102.8 H*, ABG pO2 50 L, Luis Fernando Test NA 01/14/18 06:44: WBC 16.2 H, RBC 2.68 L, Hgb 7.2 L, Hct 26.5 L, MCV 98.9, MCH 26.9 L, MCHC 27.2 L, RDW 15.3 H, RDW Differential 52.5 H, Plt Count 476 H, MPV 9.9, Immature Gran % (Auto) 0.700, Neut % (Auto) 87.6 H, Lymph % (Auto) 3.1 L, [place] % (Auto) 7.3, Eos % (Auto) 1.1, Baso % (Auto) 0.2, Absolute Neuts (auto) 14.2 H, Total Counted Not Reportable 01/14/18 06:44: Sodium 140, Potassium 3.7, Chloride 89 L, Carbon Dioxide > 45.0 H*, Anion Gap TNP, BUN 59 H, Creatinine 1.09 H, Est GFR (MDRD) Af Amer 64, Est GFR (MDRD) Non-Af 53 L, BUN/Creatinine Ratio 54.1 H, Glucose 193 H, Calcium 9.3, Phosphorus 3.9, Magnesium 2.1 Rhythm: Sinus rhythm; PVCs Medical Necessity - Tobacco Use Smoking Status: Former smoker Tobacco Use: Cigarettes Assessment/Plan 1. Acute on chronic diastolic mediated CHF At the present time patient presents with findings compatible with acute on chronic diastolic mediated CHF. The patient has been receiving diuretic therapy. However based upon her ongoing acid-base issues her furosemide and metolazone are currently on hold. She is receiving Diamox. She will continue oxygen support. She is attempting BiPAP therapy. She is being followed by pulmonology and nephrology. 2. Aortic valve stenosis She does have a history of aortic valve stenosis. There is somewhat of a discrepancy between her transthoracic echocardiogram and her diagnostic cardiac catheterization. He has been evaluated at the [facility] Main [place] for her aortic valve stenosis for consideration for TAVR thus far they have not proceeded with this procedure. A follow-up transthoracic echocardiogram was performed. Her aortic valve, is not well visualized, however, spectral Doppler suggest moderately severe aortic valve stenosis. 3. Pulmonary hypertension This may be secondary to not only her cardiovascular disease but her pulmonary disease with her COPD, etc. This can lead to cor pulmonale and right heart failure. He will need continued pulmonary support and medical therapy which does include her diuretic therapy. However, at the moment, based upon her acid base issues, her diuretics are on hold with respect to her traditional furosemide as well as metolazone therapy. 4. Hyperlipidemia She will continue lipid-lowering therapy as deemed appropriate. 5. Hypertension She will continue antihypertensive therapy with adjustment as needed. 6. Diabetes mellitus She will continue under the care of internal medicine. 7. COPD She does have a history of COPD. She will need continue pulmonary evaluation care. She is on O2 therapy. 8. Anemia Her hemoglobin has declined again. She will receive 1 unit of PRBCs with follow-up H&H. Hopefully this will help her oxygen carrying capacity. Overall, from a cardiac standpoint, she needs continued multi-specialty support and input. At the moment appears that she will continue to receive medical management/support as best as possible. However, based upon her ongoing multiple medical issues clinical course, it would not be unreasonable to consider transferring the patient to the [facility] Main [place], where she has been evaluated in the past, for further input, at least from a cardiovascular standpoint, with respect to her aortic valve condition, which they have also been following, as to whether or not she has become a candidate for a TAVR procedure that may provide some benefit to her knowing it may not be the cure for all her multiple medical issues. This note was generated with [employer] dictation software. It may contain incorrect words, spelling, and punctuation that were not noted in checking the note before signing.
--- NOTE | 2018-01-14 08:58 | PN.CARD_ITS ---
Subjectve: The patient appears to be awake and alert at this time. She continues with her chronic shortness of breath and peripheral pitting edema. She states she has worn the BiPAP device on and off since yesterday. However she cannot wear it for any prolonged period of time. She states she does not want to be placed on the ventilator thus she is attempting to wear the BiPAP as best as possible. Objective: Vital Signs Temp Pulse Resp BP Pulse Ox 98.9 F 84 16 113/65 94 01/14/18 03:29 01/14/18 07:14 01/14/18 07:14 01/14/18 03:29 01/14/18 07:14 Oxygen Flow Rate (L/min) 6 Oxygen Delivery Method Nasal Cannula Weight: 245 lb 2.464 oz Body Mass Index (BMI) 45.4 Intake and Output for Last 24 Hours 01/12/18 01/13/18 01/14/18 23:59 23:59 23:59 Intake Total 1461 / 1461 1230 / 1230 480 / 480 Output Total 1700 / 1700 3075 / 3075 700 / 700 Balance -239 / -239 -1845 / -1845 -220 / -220 General: Awake, Alert, Oriented x 3, Cooperative, Obese HEENT: Atraumatic, Normocephalic, PERRL, EOMI, Sclera Non Icteric Oral: Moist Mucosa Neck: Supple, Good ROM, No JVD Lungs: - - Diminished breath sounds bilaterally Cardiovascular: Regular Rhythm, Premature Ectopic Beats, Normal S1, Normal S2 Abdomen: Bowel Sounds Present, Soft, Non Tender, Obese Extremities: Severe RLE Edema, Severe LLE Edema Neurological: No Focal Motor or Sensory Deficit Psych/Mental Status: Appropriate 01/13/18 05:20: TIBC 386, Ferritin 24 01/13/18 08:57: pH 7.32 L, Bicarbonate Actual 52.4 H, POC Total CO2 > 50, Base Excess 26 H, O2 Saturation 78 L, ABG pCO2 102.8 H*, ABG pO2 50 L, Luis Fernando Test NA 01/14/18 06:44: WBC 16.2 H, RBC 2.68 L, Hgb 7.2 L, Hct 26.5 L, MCV 98.9, MCH 26.9 L, MCHC 27.2 L, RDW 15.3 H, RDW Differential 52.5 H, Plt Count 476 H, MPV 9.9, Immature Gran % (Auto) 0.700, Neut % (Auto) 87.6 H, Lymph % (Auto) 3.1 L, [place] % (Auto) 7.3, Eos % (Auto) 1.1, Baso % (Auto) 0.2, Absolute Neuts (auto) 14.2 H, Total Counted Not Reportable 01/14/18 06:44: Sodium 140, Potassium 3.7, Chloride 89 L, Carbon Dioxide > 45.0 H*, Anion Gap TNP, BUN 59 H, Creatinine 1.09 H, Est GFR (MDRD) Af Amer 64, Est GFR (MDRD) Non-Af 53 L, BUN/Creatinine Ratio 54.1 H, Glucose 193 H, Calcium 9.3, Phosphorus 3.9, Magnesium 2.1 Rhythm: Sinus rhythm; PVCs Medical Necessity - Tobacco Use Smoking Status: Former smoker Tobacco Use: Cigarettes Assessment/Plan 1. Acute on chronic diastolic mediated CHF At the present time patient presents with findings compatible with acute on chronic diastolic mediated CHF. The patient has been receiving diuretic therapy. However based upon her ongoing acid-base issues her furosemide and metolazone are currently on hold. She is receiving Diamox. She will continue oxygen support. She is attempting BiPAP therapy. She is being followed by pulmonology and nephrology. 2. Aortic valve stenosis She does have a history of aortic valve stenosis. There is somewhat of a discrepancy between her transthoracic echocardiogram and her diagnostic cardiac catheterization. He has been evaluated at the [facility] [place] for her aortic valve stenosis for consideration for TAVR thus far they have not proceeded with this procedure. A follow-up transthoracic echocardiogram was performed. Her aortic valve, is not well visualized, however, spectral Doppler suggest moderately severe aortic valve stenosis. 3. Pulmonary hypertension This may be secondary to not only her cardiovascular disease but her pulmonary disease with her COPD, etc. This can lead to cor pulmonale and right heart failure. He will need continued pulmonary support and medical therapy which does include her diuretic therapy. However, at the moment, based upon her acid base issues, her diuretics are on hold with respect to her traditional furosemide as well as metolazone therapy. 4. Hyperlipidemia She will continue lipid-lowering therapy as deemed appropriate. 5. Hypertension She will continue antihypertensive therapy with adjustment as needed. 6. Diabetes mellitus She will continue under the care of internal medicine. 7. COPD She does have a history of COPD. She will need continue pulmonary evaluation care. She is on O2 therapy. 8. Anemia Her hemoglobin has declined again. She will receive 1 unit of PRBCs with follow-up H&H. Hopefully this will help her oxygen carrying capacity. Overall, from a cardiac standpoint, she needs continued multi-specialty support and input. At the moment appears that she will continue to receive medical management/support as best as possible. However, based upon her ongoing multiple medical issues clinical course, it would not be unreasonable to consider transferring the patient to the [facility] [place], where she has been evaluated in the past, for further input, at least from a cardiovascular standpoint, with respect to her aortic valve condition, which they have also been following, as to whether or not she has become a candidate for a TAVR procedure that may provide some benefit to her knowing it may not be the cure for all her multiple medical issues. This note was generated with [employer] dictation software. It may contain incorrect words, spelling, and punctuation that were not noted in checking the note before signing.
[2018-01-14] MEDS: Insulin Lispro 100 UNIT/ML INSULN.PEN SQ ×3 (09:30→21:08)
[2018-01-14] MEDS: Amox/Clavulanate 875 MG Tablet PO ×2 (09:30→18:09)
[2018-01-14] MEDS: Ferrous Sulfate 325 MG Tablet PO ×3 (09:30→18:09)
[2018-01-14] MEDS: Metoprolol Tartrate 50 MG Tablet PO ×2 (09:31→21:10)
[2018-01-14] MEDS: AcetaZOLAMIDE 250 MG Tablet PO ×2 (09:31→21:09)
[2018-01-14] MEDS: Escitalopram Oxalate 10 MG Tablet PO (09:31)
[2018-01-14] MEDS: Pantoprazole Sodium 40 MG Tablet PO ×2 (09:32→21:10)
[2018-01-14] MEDS: Fluticasone 0.05% 1 SPRAY NASAL.SRY NASAL ×2 (09:33→21:08)
[2018-01-14] MEDS: Magnesium Hydroxide 30 ML UDC PO (09:33)
--- NOTE | 2018-01-14 09:54 | PCM.PROGNOTE ---
Patient Problems: Active and Suspected Problems (Last Updated 01/02/18 @ 17:11 by David Montana MD) Diastolic CHF, acute on chronic (Acute) CKD stage 3 secondary to diabetes (Acute) Subjective: Patient did okay overnight. Patient has been using BiPAP for approximately an hour and a half at a time. Patient feels sluggish today, but is denying any pain. Patient feels respiratory status is mildly improved compared to yesterday. No cough has been reported. - Physical Exam General: Alert, Oriented x3, Cooperative, No apparent distress, - - No conversational dyspnea appreciated. Morbidly obese. HEENT: Atraumatic, PERRLA, EOMI, Normocephalic, - - Slightly pale conjunctival Oral: Moist Mucosa, No Gingival or Mucosal Lesions/ Ulcerations Neck: Supple, No Nodes, Trachea Midline, JVD, Right Lungs: No rhonchi, No wheeze, No rales, Diminished, - - Symmetric expansion. Unable to percuss any dullness Cardiovascular: Regular rate, Regular Rhythm, Normal S1, Normal S2, Murmur, No rub noted, No Gallop Abdomen: Bowel Sounds Present, Soft, Non Tender, Non-Distended, Obese Extremities: No cyanosis, Capillary Refill Less than 3 Seconds, Edema Skin: - - No significant change compared to previous Musculoskeletal: No Tenderness to Palpation of Joints or Extremities, No Muscle Wasting Lymphatic: No Cervical, Supraclavicular, or Inguinal Adenopathy Neurological: Cranial nerves II-XII grossly intact, Neuro grossly intact, Motor Exam 5/5 strength throughout Psych/Mental Status: Alert and oriented to time, place, person, mood and affect Vital Signs Temp Pulse Resp BP Pulse Ox 37.2 C 83 16 113/65 94 01/14/18 03:29 01/14/18 09:31 01/14/18 07:14 01/14/18 03:29 01/14/18 07:14 Oxygen Flow Rate (L/min) 6 Oxygen Delivery Method Nasal Cannula Weight: 111.2 kg Body Mass Index (BMI) 45.4 Intake and Output for Last 24 Hours 01/12/18 01/13/18 01/14/18 23:59 23:59 23:59 Intake Total 1461 / 1461 1230 / 1230 480 / 480 Output Total 1700 / 1700 3075 / 3075 700 / 700 Balance -239 / -239 -1845 / -1845 -220 / -220 Laboratory Tests Past 24 Hrs 01/13/18 01/14/18 01/14/18 05:20 06:44 06:44 WBC 16.2 H RBC 2.68 L Hgb 7.2 L Hct 26.5 L MCV 98.9 MCH 26.9 L MCHC 27.2 L RDW 15.3 H RDW Differential 52.5 H Plt Count 476 H MPV 9.9 Immature Gran % (Auto) 0.700 Neut % (Auto) 87.6 H Lymph % (Auto) 3.1 L [place] % (Auto) 7.3 Eos % (Auto) 1.1 Baso % (Auto) 0.2 Absolute Neuts (auto) 14.2 H Absolute Lymphs (auto) 0.51 L Total Counted Not Reportable Platelet Estimate ADEQUATE Polychromasia 1+ Hypochromasia 2+ Anisocytosis RARE Sodium 140 Potassium 3.7 Chloride 89 L Carbon Dioxide > 45.0 H* Anion Gap TNP BUN 59 H Creatinine 1.09 H Estim Creat Clear Calc 40.29 Est GFR (MDRD) Af Amer 64 Est GFR (MDRD) Non-Af 53 L BUN/Creatinine Ratio 54.1 H Glucose 193 H Calcium 9.3 Phosphorus 3.9 Magnesium 2.1 TIBC 386 Ferritin 24 Blood Type Antibody Screen Crossmatch 01/14/18 08:47 WBC RBC Hgb Hct MCV MCH MCHC RDW RDW Differential Plt Count MPV Immature Gran % (Auto) Neut % (Auto) Lymph % (Auto) [place] % (Auto) Eos % (Auto) Baso % (Auto) Absolute Neuts (auto) Absolute Lymphs (auto) Total Counted Platelet Estimate Polychromasia Hypochromasia Anisocytosis Sodium Potassium Chloride Carbon Dioxide Anion Gap BUN Creatinine Estim Creat Clear Calc Est GFR (MDRD) Af Amer Est GFR (MDRD) Non-Af BUN/Creatinine Ratio Glucose Calcium Phosphorus Magnesium TIBC Ferritin Blood Type Pending Antibody Screen Pending Crossmatch See Detail POC Glucose 01/14/18 01/13/18 01/13/18 06:53 21:59 16:10 POC Glucose 207 H 184 H 207 H 01/13/18 11:25 POC Glucose 203 H Medical Necessity - Tobacco Use Smoking Status: Former smoker Tobacco Use: Cigarettes Assessment/Plan All Active Problems (Last Updated 01/02/18 @ 17:11 by David Montana MD) Diastolic CHF, acute on chronic (Acute) CKD stage 3 secondary to diabetes (Acute) CVA (cerebral vascular accident) (Resolved) CVA (cerebral vascular accident) (Resolved) History of GI bleeding (Resolved) RECOMMENDATIONS: 1. Continue to encourage nasal CPAP with chinstrap 2. Agree with transfusion of blood products 3. BiPAP with sleep and as needed 4. Wean oxygen as tolerated to keep saturations 90-94% 5. Outpatient evaluation for TAVR IMPRESSIONS: 1. Acute on chronic combined respiratory failure secondary to acute on chronic diastolic congestive heart failure Patient has been receiving significant diuresis over the course of the hospitalization. Patient remains on 5-6 L nasal cannula oxygen to maintain saturations. Patient's CO2 is elevated from a baseline of approximately 80 to over 100. This may be secondary to contraction alkalosis. Patient is on Diamox, which may temporize patient's condition. However, patient's mental status is likely secondary to an element of metabolic encephalopathy secondary to CO2 retention. Continue to encourage BiPAP with chinstrap to help with CO2 retention. Patient likely needs to keep hemoglobin greater than 8 given aortic stenosis and other comorbid issues. 2. Acute on chronic blood loss anemia Patient does have a history of GI AVMs in the past. Patient's hemoglobin is currently stable and acceptable. Transfuse to keep hemoglobin greater than 8 given cardiac condition. Patient is on a PPI at appropriate dosing. 3. Aortic stenosis Exact morphology is unclear at this time. Some testing suggest severe disease and others suggest that intervention is not required. Patient has had multiple admissions over the last year secondary to fluid overload requiring diuresis of 10-12 L of fluid. Patient would benefit from outpatient evaluation to see if surgical intervention would be appropriate. 4. Morbid obesity/type 2 diabetes mellitus/hypertension/advanced age/acute sinusitis Complicates care, management, recovery and prognosis. Likely okay to continue with baseline medications. Patient with variable p.o. intake. Would avoid metformin given patient's renal function and active diuresis previously. Patient is on antibiotics for reported acute sinusitis. Code Visit Inpatient E&M: 54943 Subs Hosp L3
--- NOTE | 2018-01-14 09:57 | PCM.PN.REN ---
Patient Problems: Active and Suspected Problems (Last Updated 01/02/18 @ 17:11 by David Montana MD) Diastolic CHF, acute on chronic (Acute) CKD stage 3 secondary to diabetes (Acute) Subjective: Pt is complaining of weakness and episodes of confusion. Also complaining of SOB No CP - Physical Exam General: Alert, Oriented x3 HEENT: Atraumatic Oral: Moist Mucosa Neck: Supple, No JVD Lungs: Diminished, Rhonchi, - - crackles at the lungs bases Cardiovascular: Regular rate, Regular Rhythm, Normal S1, Normal S2 Abdomen: Bowel Sounds Present, Non Tender Extremities: Edema - +2 edema of LE Musculoskeletal: No Tenderness to Palpation of Joints or Extremities Lymphatic: No Cervical, Supraclavicular, or Inguinal Adenopathy Neurological: Cranial nerves II-XII grossly intact, Neuro grossly intact Vital Signs Temp Pulse Resp BP Pulse Ox 98.9 F 83 16 113/65 94 01/14/18 03:29 01/14/18 09:31 01/14/18 07:14 01/14/18 03:29 01/14/18 07:14 Oxygen Flow Rate (L/min) 6 Oxygen Delivery Method Nasal Cannula Weight: 111.2 kg Body Mass Index (BMI) 45.4 Intake and Output for Last 24 Hours 01/12/18 01/13/18 01/14/18 23:59 23:59 23:59 Intake Total 1461 / 1461 1230 / 1230 480 / 480 Output Total 1700 / 1700 3075 / 3075 700 / 700 Balance -239 / -239 -1845 / -1845 -220 / -220 Laboratory Tests Past 24 Hrs 01/13/18 01/14/18 01/14/18 05:20 06:44 06:44 WBC 16.2 H RBC 2.68 L Hgb 7.2 L Hct 26.5 L MCV 98.9 MCH 26.9 L MCHC 27.2 L RDW 15.3 H RDW Differential 52.5 H Plt Count 476 H MPV 9.9 Immature Gran % (Auto) 0.700 Neut % (Auto) 87.6 H Lymph % (Auto) 3.1 L [place] % (Auto) 7.3 Eos % (Auto) 1.1 Baso % (Auto) 0.2 Absolute Neuts (auto) 14.2 H Absolute Lymphs (auto) 0.51 L Total Counted Not Reportable Platelet Estimate ADEQUATE Polychromasia 1+ Hypochromasia 2+ Anisocytosis RARE Sodium 140 Potassium 3.7 Chloride 89 L Carbon Dioxide > 45.0 H* Anion Gap TNP BUN 59 H Creatinine 1.09 H Estim Creat Clear Calc 40.29 Est GFR (MDRD) Af Amer 64 Est GFR (MDRD) Non-Af 53 L BUN/Creatinine Ratio 54.1 H Glucose 193 H Calcium 9.3 Phosphorus 3.9 Magnesium 2.1 TIBC 386 Ferritin 24 Blood Type Antibody Screen Crossmatch 01/14/18 08:47 WBC RBC Hgb Hct MCV MCH MCHC RDW RDW Differential Plt Count MPV Immature Gran % (Auto) Neut % (Auto) Lymph % (Auto) [place] % (Auto) Eos % (Auto) Baso % (Auto) Absolute Neuts (auto) Absolute Lymphs (auto) Total Counted Platelet Estimate Polychromasia Hypochromasia Anisocytosis Sodium Potassium Chloride Carbon Dioxide Anion Gap BUN Creatinine Estim Creat Clear Calc Est GFR (MDRD) Af Amer Est GFR (MDRD) Non-Af BUN/Creatinine Ratio Glucose Calcium Phosphorus Magnesium TIBC Ferritin Blood Type Pending Antibody Screen Pending Crossmatch See Detail POC Glucose 01/14/18 01/13/18 01/13/18 06:53 21:59 16:10 POC Glucose 207 H 184 H 207 H 01/13/18 11:25 POC Glucose 203 H Medical Necessity - Tobacco Use Smoking Status: Former smoker Tobacco Use: Cigarettes Assessment/Plan All Active Problems (Last Updated 01/02/18 @ 17:11 by David Montana MD) Diastolic CHF, acute on chronic (Acute) CKD stage 3 secondary to diabetes (Acute) CVA (cerebral vascular accident) (Resolved) CVA (cerebral vascular accident) (Resolved) History of GI bleeding (Resolved) TANJA. She has normal creatinine at baseline. Acute kidney injury is most probably from over diuresing with resultant decrease effective volume. Creatinine improved with holding diuretics ( lasix and metolazone). Pt was kept on Diamox for metabolic alkalosis. Last Cr trend 1.19->1.09 mg/dL I will re start lasix 40 mg IV BID. continue diamox Avoid ACEI/ARB No need for renal replacement therapy. Please check kidney function test in the morning. Metabolic alkalosis. Patient most has respiratory acidosis with compensatory metabolic alkalosis. Last PH showed Ph 7.32,C02>100, and HC03 52 continue diamox Check bicarb in the morning. CHF with pulmonary HTN and Pt seems decompensating again. I will re start lasix 40 mg IV BID. continue Diamox Continue daily weight. Cardiology service is following D/W Dr. Negrete Renal team will continue to follow
[2018-01-14] MEDS: Furosemide 20 MG/2 ML VIAL IV (11:13)
[2018-01-14] MEDS: 0.9% NaCl Peripheral Flush Adult/Peds IV ×3 (11:13→18:09)
[2018-01-14 11:55] LABS: Bedside Glucose 197 mg/dL (70-110)
[2018-01-14] MEDS: Acetaminophen 325 MG Tablet 650 MG PO (15:35)
[2018-01-14] MEDS: Furosemide 40 MG/4 ML Vial IV ×2 (15:35→18:09)
--- NOTE | 2018-01-14 15:52 | PCM.PN.HOSP ---
Patient Problems: Active and Suspected Problems (Last Updated 01/02/18 @ 17:11 by David Montana MD) Diastolic CHF, acute on chronic (Acute) CKD stage 3 secondary to diabetes (Acute) Subjective: Patient was seen and examined. Patient is still lethargic. Admits to feeling very tired. denies chest pain or dizziness. Objective: Physical exam: General: Alert, Oriented x3, Cooperative, - - Mild respiratory distress, on 6 L of oxygen, obese HEENT: Atraumatic, PERRLA, EOMI, Normocephalic Oral: Moist Mucosa Neck: Supple, No JVD, Negative Carotid Bruits Lungs: Normal air movement, Diminished Cardiovascular: Regular rate, Regular Rhythm, Normal S1, Normal S2, Murmur - Holosystolic murmur Abdomen: Bowel Sounds Present, Soft, Non Tender, Non-Distended, No Hepato-splenomegaly Extremities: Edema - Bilateral +2 pitting, nontender, chronic venous stasis Skin: No rashes, No breakdown Musculoskeletal: No Tenderness to Palpation of Joints or Extremities Lymphatic: No Cervical, Supraclavicular, or Inguinal Adenopathy Neurological: Cranial nerves II-XII grossly intact Psych/Mental Status: Normal Affect, Appropriate Vitals/I&O's: Vital Signs Temp Pulse Resp BP Pulse Ox 98.2 F 66 20 H 102/51 L 94 01/14/18 15:30 01/14/18 15:30 01/14/18 15:30 01/14/18 15:30 01/14/18 15:30 Oxygen Flow Rate (L/min) 6 Oxygen Delivery Method Nasal Cannula Weight: 111.2 kg Body Mass Index (BMI) 45.4 Intake and Output for Last 24 Hours 01/12/18 01/13/18 01/14/18 23:59 23:59 23:59 Intake Total 1461 / 1461 1230 / 1230 1240 / 1240 Output Total 1700 / 1700 3075 / 3075 1800 / 1800 Balance -239 / -239 -1845 / -1845 -560 / -560 Laboratory Results 01/13/18 16:10: POC Glucose 207 H 01/13/18 21:59: POC Glucose 184 H 01/14/18 06:44: WBC 16.2 H, RBC 2.68 L, Hgb 7.2 L, Hct 26.5 L, MCV 98.9, MCH 26.9 L, MCHC 27.2 L, RDW 15.3 H, RDW Differential 52.5 H, Plt Count 476 H, MPV 9.9, Immature Gran % (Auto) 0.700, Neut % (Auto) 87.6 H, Lymph % (Auto) 3.1 L, [place] % (Auto) 7.3, Eos % (Auto) 1.1, Baso % (Auto) 0.2, Absolute Neuts (auto) 14.2 H, Absolute Lymphs (auto) 0.51 L, Total Counted Not Reportable, Platelet Estimate ADEQUATE, Polychromasia 1+, Hypochromasia 2+, Anisocytosis RARE 01/14/18 06:44: Sodium 140, Potassium 3.7, Chloride 89 L, Carbon Dioxide > 45.0 H*, Anion Gap TNP, BUN 59 H, Creatinine 1.09 H, Estim Creat Clear Calc 40.29, Est GFR (MDRD) Af Amer 64, Est GFR (MDRD) Non-Af 53 L, BUN/Creatinine Ratio 54.1 H, Glucose 193 H, Calcium 9.3, Phosphorus 3.9, Magnesium 2.1 01/14/18 06:53: POC Glucose 207 H 01/14/18 08:47: Blood Type AB POSITIVE, Antibody Screen NEGATIVE, Crossmatch See Detail 01/14/18 11:34: POC Glucose 197 H Current Medications Acetaminophen (Tylenol) 650 mg PO Q6H PRN PRN PRN Reason: Mild Pain (scale 0-3)/T>100.7 Last Admin: 01/14/18 15:35 Dose: 650 mg Hydrocodone Bitart/Acetaminophen ([place] 5mg-325mg) 1 - 2 tablet PO Q6H PRN PRN PRN Reason: Moderate-severe pain Acetazolamide (Diamox) 250 mg PO BID RAINER Last Admin: 01/14/18 09:31 Dose: 250 mg Albuterol Sulfate (Ventolin Aerosols) 2.5 mg INHALATION Q2H PRN PRN PRN Reason: Shortness of breath, wheezing Last Admin: 01/12/18 20:36 Dose: 2.5 mg Albuterol/Ipratropium (Duoneb) 3 ml INHALATION Q4H.RT RAINER Last Admin: 10/30/18 15:10 Dose: 3 ml Amoxicillin/[facility]ulanate [facility] Last Admin: 01/14/18 09:30 Dose: 875 mg Atorvastatin Calcium (Lipitor) 10 mg PO QHS [facility] Last Admin: 01/13/18 22:02 Dose: 10 mg Escitalopram Oxalate (Lexapro) 10 mg PO DAILY [facility] Last Admin: 01/14/18 09:31 Dose: 10 mg Ferrous Sulfate (Ferrous Sulfate) 325 mg PO TIDCM [facility] Last Admin: 01/14/18 11:40 Dose: 325 mg Flunisolide (Nasarel Nose [place]) 2 spray NASAL BID [facility] Last Admin: 01/14/18 09:33 Dose: 2 spray Fluticasone Propionate (Flonase Nasal [place]) 1 spray NASAL BID [facility] Last Admin: 01/14/18 09:33 Dose: 1 spray Furosemide (Lasix) 40 mg IV BID@1000,1800 [facility] Hydralazine HCl (Apresoline Iv) 10 mg IV Q4H PRN PRN PRN Reason: SBP > 160 Insulin Glargine (Lantus (Bkc)) 5 units SC QHS [facility] Last Admin: 01/13/18 22:04 Dose: 5 units Insulin Human Lispro (Humalog Kwikpen (Bkc)) 0 unit SQ [facility]; Protocol Last Admin: 01/14/18 11:41 Dose: 3 units Magnesium Hydroxide (Milk Of Magnesia) 30 ml PO DAILY PRN PRN Reason: Constipation Last Admin: 01/14/18 09:33 Dose: 30 ml Metoprolol Tartrate (Lopressor (Beta [place])) 50 mg PO BID [facility] Last Admin: 01/14/18 09:31 Dose: 50 mg Morphine Sulfate () 1 - 2 mg IV Q4H PRN PRN PRN Reason: PAIN Nitroglycerin (Nitrostat) 0.4 mg SUBLINGUAL Q5M PRN PRN Reason: Angina pain Ondansetron HCl (Zofran) 4 mg IV Q8H PRN PRN PRN Reason: Nausea Last Admin: 01/12/18 20:35 Dose: 4 mg Pantoprazole Sodium (Protonix) 40 mg PO BID [facility] Last Admin: 01/14/18 09:32 Dose: 40 mg Potassium Chloride (K-Dur) [facility] Last Admin: 01/14/18 09:31 Dose: 20 meq Sodium Chloride () 5 - 30 ml IV UD PRN PRN Reason: SALINE FLUSH Last Admin: 01/14/18 15:35 Dose: 10 ml Sodium Chloride ([place] Nasal [place]) 2 spray NASAL TID PRN PRN PRN Reason: NASAL DRYNESS Last Admin: 01/11/18 22:38 Dose: 2 spray Trazodone HCl (Desyrel) 100 mg PO QHS PRN PRN PRN Reason: SLEEP Last Admin: 01/13/18 22:34 Dose: 100 mg Medical Necessity - Tobacco Use Smoking Status: Former smoker Tobacco Use: Cigarettes Assessment/Plan All Active Problems (Last Updated 01/02/18 @ 17:11 by David Montana MD) Diastolic CHF, acute on chronic (Acute) CKD stage 3 secondary to diabetes (Acute) CVA (cerebral vascular accident) (Resolved) CVA (cerebral vascular accident) (Resolved) History of GI bleeding (Resolved) 67 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 1. Acute sinusitis, per history, started on Augmentin, day 4 of 7 days total 2. Acute on chronic hypoxic respiratory failure, on 6L of oxygen, secondary to acute on chronic diastolic CHF, acute on chronic anemia, continue on breathing treatments,wean off oxygen, encourage incentive spirometer, encourage use of BiPAP, will consult pulmonary also 3. Acute on chronic diastolic CHF, on Lasix drip, off Lasix drip and metalazone, on account of contraction alkalosis, will trend BMP 4. Acute metabolic alkalosis secondary to contraction alkalosis/chronic COPD retention, on Diamox, encourage patient to use BiPAP will continue to monitor BMP 5. Acute on chronic anemia, history of AVMs, chronic anemia, iron deficient, on oral iron, status post 2 units packed RBC, Hemoglobin is dropped to 7.2, will be transfused 1 unit of packed RBCs, labs in a.m. 6. Indeterminate troponin second to demand ischemia, no history of CAD, on beta-jeffery will continue to monitor 7. Aortic stenosis, mild-moderate, PAT planned for later will continue to monitor. 8. Severe COPD/severe pulmonary hypertension/chronic respiratory failure, and has been refusing to use her BiPAP, claustrophobic, encouraged her to use BiPAP, pulmonology consulted, recommend continued use of BiPAP 9. Hypertension, stable, on metoprolol, continue to monitor vitals. 10. Type 2 diabetes mellitus, sugars are relatively better controlled, metformin withheld, blood sugars uncontrolled, started on low-dose Lantus 5 units nightly, continue with Accu-Cheks with insulin sliding scale 11. Morbid obesity, BMI 46, diet recommended 12. DVT prophylaxis -SCDs on account of chronic GI bleed 13. CODE STATUS: Full code -discussed again with the patient Code Visit Inpatient E&M: 83878 Subs Hosp L2
--- NOTE | 2018-01-14 15:56 | PN_ITS ---
Patient Problems: Active and Suspected Problems (Last Updated 01/02/18 @ 17:11 by David Montana MD) Diastolic CHF, acute on chronic (Acute) CKD stage 3 secondary to diabetes (Acute) Subjective: Patient was seen and examined. Patient is still lethargic. Admits to feeling very tired. denies chest pain or dizziness. Objective: Physical exam: General: Alert, Oriented x3, Cooperative, - - Mild respiratory distress, on 6 L of oxygen, obese HEENT: Atraumatic, PERRLA, EOMI, Normocephalic Oral: Moist Mucosa Neck: Supple, No JVD, Negative Carotid Bruits Lungs: Normal air movement, Diminished Cardiovascular: Regular rate, Regular Rhythm, Normal S1, Normal S2, Murmur - Holosystolic murmur Abdomen: Bowel Sounds Present, Soft, Non Tender, Non-Distended, No Hepato- splenomegaly Extremities: Edema - Bilateral +2 pitting, nontender, chronic venous stasis Skin: No rashes, No breakdown Musculoskeletal: No Tenderness to Palpation of Joints or Extremities Lymphatic: No Cervical, Supraclavicular, or Inguinal Adenopathy Neurological: Cranial nerves II-XII grossly intact Psych/Mental Status: Normal Affect, Appropriate Vitals/I&O's: Vital Signs Temp Pulse Resp BP Pulse Ox 98.2 F 66 20 H 102/51 L 94 01/14/18 15:30 01/14/18 15:30 01/14/18 15:30 01/14/18 15:30 01/14/18 15:30 Oxygen Flow Rate (L/min) 6 Oxygen Delivery Method Nasal Cannula Weight: 111.2 kg Body Mass Index (BMI) 45.4 Intake and Output for Last 24 Hours 01/12/18 01/13/18 01/14/18 23:59 23:59 23:59 Intake Total 1461 / 1461 1230 / 1230 1240 / 1240 Output Total 1700 / 1700 3075 / 3075 1800 / 1800 Balance -239 / -239 -1845 / -1845 -560 / -560 Laboratory Results 01/13/18 16:10: POC Glucose 207 H 01/13/18 21:59: POC Glucose 184 H 01/14/18 06:44: WBC 16.2 H, RBC 2.68 L, Hgb 7.2 L, Hct 26.5 L, MCV 98.9, MCH 26.9 L, MCHC 27.2 L, RDW 15.3 H, RDW Differential 52.5 H, Plt Count 476 H, MPV 9.9, Immature Gran % (Auto) 0.700, Neut % (Auto) 87.6 H, Lymph % (Auto) 3.1 L, [place] % (Auto) 7.3, Eos % (Auto) 1.1, Baso % (Auto) 0.2, Absolute Neuts (auto) 14.2 H, Absolute Lymphs (auto) 0.51 L, Total Counted Not Reportable, Platelet Estimate ADEQUATE, Polychromasia 1+, Hypochromasia 2+, Anisocytosis RARE 01/14/18 06:44: Sodium 140, Potassium 3.7, Chloride 89 L, Carbon Dioxide > 45.0 H*, Anion Gap TNP, BUN 59 H, Creatinine 1.09 H, Estim Creat Clear Calc 40.29, Est GFR (MDRD) Af Amer 64, Est GFR (MDRD) Non-Af 53 L, BUN/Creatinine Ratio 54.1 H, Glucose 193 H, Calcium 9.3, Phosphorus 3.9, Magnesium 2.1 01/14/18 06:53: POC Glucose 207 H 01/14/18 08:47: Blood Type AB POSITIVE, Antibody Screen NEGATIVE, Crossmatch See Detail 01/14/18 11:34: POC Glucose 197 H Current Medications Acetaminophen (Tylenol) 650 mg PO Q6H PRN PRN PRN Reason: Mild Pain (scale 0-3)/T>100.7 Last Admin: 01/14/18 15:35 Dose: 650 mg Hydrocodone Bitart/Acetaminophen ([place] 5mg-325mg) 1 - 2 tablet PO Q6H PRN PRN PRN Reason: Moderate-severe pain Acetazolamide (Diamox) 250 mg PO BID RAINER Last Admin: 01/14/18 09:31 Dose: 250 mg Albuterol Sulfate (Ventolin Aerosols) 2.5 mg INHALATION Q2H PRN PRN PRN Reason: Shortness of breath, wheezing Last Admin: 01/12/18 20:36 Dose: 2.5 mg Albuterol/Ipratropium (Duoneb) 3 ml INHALATION Q4H.RT RAINER Last Admin: 10/30/18 15:10 Dose: 3 ml Amoxicillin/Cl[facility]ulanate [facility]assium [facility] Last Admin: 01/14/18 09:30 Dose: 875 mg Atorvastatin Calcium (Lipitor) 10 mg PO QHS [facility] Last Admin: 01/13/18 22:02 Dose: 10 mg Escitalopram Oxalate (Lexapro) 10 mg PO DAILY [facility] Last Admin: 01/14/18 09:31 Dose: 10 mg Ferrous Sulfate (Ferrous Sulfate) 325 mg PO TIDCM [facility] Last Admin: 01/14/18 11:40 Dose: 325 mg Flunisolide (Nasarel Nose Grass[place]) 2 spray NASAL BID [facility] Last Admin: 01/14/18 09:33 Dose: 2 spray Fluticasone Propionate (Flonase Nasal [place]) 1 spray NASAL BID [facility] Last Admin: 01/14/18 09:33 Dose: 1 spray Furosemide (Lasix) 40 mg IV BID@1000,1800 [facility] Hydralazine HCl (Apresoline Iv) 10 mg IV Q4H PRN PRN PRN Reason: SBP > 160 Insulin Glargine (Lantus (Bkc)) 5 units SC QHS [facility] Last Admin: 01/13/18 22:04 Dose: 5 units Insulin Human Lispro (Humalog Kwikpen (Bkc)) 0 unit SQ [facility]; Protocol Last Admin: 01/14/18 11:41 Dose: 3 units Magnesium Hydroxide (Milk Of Magnesia) 30 ml PO DAILY PRN PRN Reason: Constipation Last Admin: 01/14/18 09:33 Dose: 30 ml Metoprolol Tartrate (Lopressor (Beta Jeffery)) 50 mg PO BID [facility] Last Admin: 01/14/18 09:31 Dose: 50 mg Morphine Sulfate () 1 - 2 mg IV Q4H PRN PRN PRN Reason: PAIN Nitroglycerin (Nitrostat) 0.4 mg SUBLINGUAL Q5M PRN PRN Reason: Angina pain Ondansetron HCl (Zofran) 4 mg IV Q8H PRN PRN PRN Reason: Nausea Last Admin: 01/12/18 20:35 Dose: 4 mg Pantoprazole Sodium (Protonix) 40 mg PO BID [facility] Last Admin: 01/14/18 09:32 Dose: 40 mg Potassium Chlor[facility] (K-Dur) [facility] Last Admin: 01/14/18 09:31 Dose: 20 meq Sodium Chloride () 5 - 30 ml IV UD PRN PRN Reason: SALINE FLUSH Last Admin: 01/14/18 15:35 Dose: 10 ml Sodium Chloride ([place] Nasal Grassflat) 2 spray NASAL TID PRN PRN PRN Reason: NASAL DRYNESS Last Admin: 01/11/18 22:38 Dose: 2 spray Trazodone HCl (Desyrel) 100 mg PO QHS PRN PRN PRN Reason: SLEEP Last Admin: 01/13/18 22:34 Dose: 100 mg Medical Necessity - Tobacco Use Smoking Status: Former smoker Tobacco Use: Cigarettes Assessment/Plan All Active Problems (Last Updated 01/02/18 @ 17:11 by David Montana MD) Diastolic CHF, acute on chronic (Acute) CKD stage 3 secondary to diabetes (Acute) CVA (cerebral vascular accident) (Resolved) CVA (cerebral vascular accident) (Resolved) History of GI bleeding (Resolved) 67 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 1. Acute sinusitis, per history, started on Augmentin, day 4 of 7 days total 2. Acute on chronic hypoxic respiratory failure, on 6L of oxygen, secondary to acute on chronic diastolic CHF, acute on chronic anemia, continue on breathing treatments,wean off oxygen, encourage incentive spirometer, encourage use of BiPAP, will consult pulmonary also 3. Acute on chronic diastolic CHF, on Lasix drip, off Lasix drip and metalazone, on account of contraction alkalosis, will trend BMP 4. Acute metabolic alkalosis secondary to contraction alkalosis/chronic COPD retention, on Diamox, encourage patient to use BiPAP will continue to monitor BMP 5. Acute on chronic anemia, history of AVMs, chronic anemia, iron deficient, on oral iron, status post 2 units packed RBC, Hemoglobin is dropped to 7.2, will be transfused 1 unit of packed RBCs, labs in a.m. 6. Indeterminate troponin second to demand ischemia, no history of CAD, on beta- jeffery will continue to monitor 7. Aortic stenosis, mild-moderate, PAT planned for later will continue to monitor. 8. Severe COPD/severe pulmonary hypertension/chronic respiratory failure, and has been refusing to use her BiPAP, claustrophobic, encouraged her to use BiPAP, pulmonology consulted, recommend continued use of BiPAP 9. Hypertension, stable, on metoprolol, continue to monitor vitals. 10. Type 2 diabetes mellitus, sugars are relatively better controlled, metformin withheld, blood sugars uncontrolled, started on low-dose Lantus 5 units nightly, continue with Accu-Cheks with insulin sliding scale 11. Morbid obesity, BMI 46, diet recommended 12. DVT prophylaxis -SCDs on account of chronic GI bleed 13. CODE STATUS: Full code -discussed again with the patient Code Visit Inpatient E&M: 05001 Subs Hosp L2
[2018-01-14 16:41] LABS: Bedside Glucose 144 mg/dL (70-110)
[2018-01-14] MEDS: Atorvastatin Calcium 10 MG Tablet PO (21:11)
[2018-01-14] MEDS: Sodium Chloride 0.65% 1 SPRAY SPRAY.BTL 2 SPRAY NASAL (21:19)
--- NOTE | 2018-01-14 23:17 | CPS ---
Pt refusing bipap. Advantages of wearing and disadvantages of not wearing bipap were discussed with patient. Patient states she understands them and remembers discussions about wearing bipap with doctors throughout the day.
[2018-01-14 23:45] LABS: Bedside Glucose 203 mg/dL (70-110)
[2018-01-15] VITALS (26 sets, daily range): BP systolic 102–111; BP diastolic 52–65; PULSE 61–85; RESP 12–23; TEMP 36.1–36.8; O2SAT 91–99
--- NOTE | 2018-01-15 02:39 | CPS ---
Arrived to pt room to give breathing tx. Pt asleep and spo2 81%. Pt refused breathing tx and bipap. Nurse notified. Nurse also discussed bipap with pt and pt continued to refuse. Patient placed on 7L HFNC, spo2 90%.
--- NOTE | 2018-01-15 02:47 | NURSING ---
pt refuses to wear bipap. resp reported pt sleeping and po 84%. Attempted many times to get her to wear the bipap but she refused. resp going to get a high flow nasal cannula. Will monitor
--- NOTE | 2018-01-15 04:36 | NURSING ---
po 94% on the 7lnc. pt turned back down to 6lnc. pt sitting up in chair. denies any complaints
[2018-01-15 06:26] LABS: Absolute Lymphocyte Count 0.53 X10^3/ul (0.83-4.51); Absolute Neutrophil Count 9.6 X10^3/uL (2.0-7.7); Basophil# 0.05 X10^3/uL; Basophil% 0.4 % (0-1); Eosinophil# 0.21 X10^3/uL; Eosinophils% 1.8 % (0-5); Hemoglobin 7.9 g/dl (12.0-15.0); Lymphocyte # 0.53 X10^3/ul (4.0); Lymphocyte % 4.6 % (19-41); Mean Corp Hgb Conc 28.2 g/gl (32-36); Mean Corpuscular Hgb 27.4 pg (27.0-32.0); Mean Corpuscular Volume 97.2 fL (81-99); Mean Platelet Vol. 9.4 fl (6.2-12.0); Monocyte# 1.04 X10^3/uL; Monocyte% 9.1 % (0-10); Neutrophil # 9.56 X10^3/uL (2.7-7.7); Neutrophil % 83.2 % (47-70); Platelet Count 421 K/mm3 (150-450); RBC Distribution Width CV 16.4 % (11.6-14.6); RBC Distribution Width SD 56.5 fl (35.1-43.9); Red Blood Count 2.88 M/mm3 (4.2-5.4); White Blood Count 11.5 K/mm3 (4.4-11.0)
[2018-01-15 06:50] LABS: Differential Indicated SCAN CRITERIA MET; POSITIVE COUNT NO; POSITIVE DIFFERENTIAL YES; POSITIVE MORPHOLOGY NO
[2018-01-15 06:54] LABS: Absolute Nucleated RBC Count 0.07 10^3/uL (0-5); NRBC Flagged by Analyzer 0.6 % (0-5)
[2018-01-15 06:55] LABS: Bedside Glucose 203 mg/dL (70-110)
[2018-01-15] MEDS: Ipratropium/Albuterol Sulfate 3 ML AMPUL.NEB INHALATION ×5 (06:55→23:19)
[2018-01-15 06:57] LABS: Anisocytosis 2+; Differential Comment SCANNED; Hypochromasia 3+
[2018-01-15 06:58] LABS: Polychromasia RARE
--- NOTE | 2018-01-15 07:50 | PN_ITS ---
Patient Problems: Active and Suspected Problems (Last Updated 01/02/18 @ 17:11 by David Montana MD) Diastolic CHF, acute on chronic (Acute) CKD stage 3 secondary to diabetes (Acute) Subjective: Patient refused BiPAP therapy for most of the day and night. Staff did report finding patient satting in the mid 80s on nasal cannula oxygen. Patient was placed on high flow nasal cannula, but is more somnolent this morning. Patient reports she feels subjectively improved compared to previous. No fever productive cough has been reported. - Physical Exam General: No apparent distress, - - RASS -1. Morbidly obese. HEENT: Atraumatic, PERRLA, EOMI, Normocephalic, - - Scleral injection without icterus Oral: Moist Mucosa, No Gingival or Mucosal Lesions/ Ulcerations Neck: Supple, No JVD, No Nodes, Trachea Midline Lungs: No rhonchi, No wheeze, No rales, Diminished, - - Fair effort. Symmetric expansion. No dullness to percussion. Cardiovascular: Regular rate, Regular Rhythm, Normal S1, Normal S2, Murmur - Unchanged, No rub noted, No Gallop Abdomen: Bowel Sounds Present, Soft, Non Tender, Non-Distended, Obese Extremities: No cyanosis, Capillary Refill Less than 3 Seconds, Clubbing, Edema Skin: - - No significant change compared to previous Musculoskeletal: No Tenderness to Palpation of Joints or Extremities, No Muscle Wasting Lymphatic: No Cervical, Supraclavicular, or Inguinal Adenopathy Neurological: Cranial nerves II-XII grossly intact, Neuro grossly intact, Motor Exam 5/5 strength throughout Psych/Mental Status: Alert and oriented to time, place, person, mood and affect Vital Signs Temp Pulse Resp BP Pulse Ox 36.6 C 82 18 111/65 94 01/15/18 01:55 01/15/18 06:57 01/15/18 03:54 01/15/18 01:55 01/15/18 04:37 Oxygen Flow Rate (L/min) 7 Oxygen Delivery Method Nasal Cannula Weight: 111.6 kg Body Mass Index (BMI) 45.4 Intake and Output for Last 24 Hours 01/13/18 01/14/18 01/15/18 23:59 23:59 23:59 Intake Total 1230 / 1230 1892 / 1892 300 / 300 Output Total 3075 / 3075 2100 / 2100 Balance -1845 / -1845 -208 / -208 300 / 300 Laboratory Tests Past 24 Hrs 01/14/18 01/15/18 08:47 05:50 WBC 11.5 H RBC 2.88 L Hgb 7.9 L Hct 28.0 L MCV 97.2 MCH 27.4 MCHC 28.2 L RDW 16.4 H RDW Differential 56.5 H Plt Count 421 MPV 9.4 Immature Gran % (Auto) 0.900 Neut % (Auto) 83.2 H Lymph % (Auto) 4.6 L [place] % (Auto) 9.1 Eos % (Auto) 1.8 Baso % (Auto) 0.4 Absolute Neuts (auto) 9.6 H Absolute Lymphs (auto) 0.53 L Total Counted Not Reportable Nucleated RBC % 0.6 Differential Comment SCANNED Polychromasia RARE Hypochromasia 3+ Anisocytosis 2+ Absolute Retic 0.07 Blood Type AB POSITIVE Antibody Screen NEGATIVE Crossmatch See Detail POC Glucose 01/15/18 01/14/18 01/14/18 06:48 21:01 16:33 POC Glucose 203 H 203 H 144 H 01/14/18 11:34 POC Glucose 197 H Medical Necessity - Tobacco Use Smoking Status: Former smoker Tobacco Use: Cigarettes Assessment/Plan All Active Problems (Last Updated 01/02/18 @ 17:11 by David Montana MD) Diastolic CHF, acute on chronic (Acute) CKD stage 3 secondary to diabetes (Acute) CVA (cerebral vascular accident) (Resolved) CVA (cerebral vascular accident) (Resolved) History of GI bleeding (Resolved) RECOMMENDATIONS: 1. Continue to encourage nasal CPAP with chinstrap 2. Recheck CBC tomorrow, may need another transfusion 3. BiPAP with sleep and as needed 4. Wean oxygen as tolerated to keep saturations 90-94% 5. Outpatient evaluation for TAVR IMPRESSIONS: 1. Acute on chronic combined respiratory failure secondary to acute on chronic diastolic congestive heart failure Patient has been receiving significant diuresis over the course of the hospitalization. Patient remains on 5-6 L nasal cannula oxygen to maintain saturations. Patient's CO2 is elevated from a baseline of approximately 80 to over 100. This may be secondary to contraction alkalosis. Patient is on Diamox, which may temporize patient's condition. However, patient's mental status is likely secondary to an element of metabolic encephalopathy secondary to CO2 retention. Patient has not been compliant with BiPAP. Stressed to the patient that failure to use BiPAP overnight can lead to CO2 retention and eventual respiratory failure. Patient's wishes and actions are not congruent at this time. Did tell patient that she may end up getting intubated if she proceeds to avoid noninvasive support. No indication for ICU transfer at this time, but will have to follow closely. 2. Acute on chronic blood loss anemia Patient does have a history of GI AVMs in the past. Patient's hemoglobin is currently stable and acceptable. Transfuse to keep hemoglobin greater than 8 given cardiac condition. Patient is on a PPI at appropriate dosing. 3. Aortic stenosis Exact morphology is unclear at this time. Some testing suggest severe disease and others suggest that intervention is not required. Patient has had multiple admissions over the last year secondary to fluid overload requiring diuresis of 10-12 L of fluid. Patient essentially with even fluid balance overnight. Patient would benefit from outpatient evaluation to see if surgical intervention would be appropriate. 4. Morbid obesity/type 2 diabetes mellitus/hypertension/advanced age/acute sinusitis Complicates care, management, recovery and prognosis. Likely okay to continue with baseline medications. Patient with variable p.o. intake. Would avoid metformin given patient's renal function and active diuresis previously. Patient is on antibiotics for reported acute sinusitis. Code Visit Inpatient E&M: [id number] [facility] Hosp L3
[2018-01-15 09:55] LABS: ALB/GLOB Ratio 0.8 RATIO (0.9-2.4); AST(SGOT) 9 U/L (15-37); Alanine Aminotransfer ALT/SGPT 13 U/L (13-56); Albumin, Serum 3.2 g/dL (3.2-5.0); Alkaline Phosphatase 65 U/L (45-117); BUN 51 mg/dL (7-18); BUN/Creat Ratio 40.5 RATIO (10-20); Calcium,Total 8.7 mg/dL (8.5-10.1); Chloride 90 mmol/L (98-107); Creatinine, Serum 1.26 mg/dL (0.55-1.02); EST Glomerular Filtration Rate 45 mL/min (>60); Est Glom Filt Rate - Afr Amer 54 mL/min (>60); Estimated Creatinine Clearance 34.86 ml/min; Globulin 3.8 g/dL (2.2-4.2); Glucose 180 mg/dL (74-106); Potassium 3.7 mmol/L (3.5-5.1); Sodium Level 138 mmol/L (136-145)
[2018-01-15 10:00] LABS: Carbon Dioxide > 45.0 mmol/L (21.0-32.0)
[2018-01-15] MEDS: Insulin Lispro 100 UNIT/ML INSULN.PEN SQ ×3 (10:17→21:32)
[2018-01-15] MEDS: Ferrous Sulfate 325 MG Tablet PO ×3 (10:18→18:11)
[2018-01-15] MEDS: AcetaZOLAMIDE 250 MG Tablet PO ×2 (10:18→21:27)
[2018-01-15] MEDS: Amox/Clavulanate 875 MG Tablet PO ×2 (10:18→18:11)
--- NOTE | 2018-01-15 10:18 | PN.RENAL_ITS ---
Patient Problems: Active and Suspected Problems (Last Updated 01/02/18 @ 17:11 by David Montana MD) Diastolic CHF, acute on chronic (Acute) CKD stage 3 secondary to diabetes (Acute) Subjective: Pt is drowsy this morning. Pt did not use BiPAP all day and night yesterday. Currently on BiPAP - Physical Exam General: Lethargic HEENT: Atraumatic Oral: Dry Mucosa Neck: Supple, No JVD Lungs: Diminished, Rhonchi, Short of Breath, Using Accessory Muscles Cardiovascular: Regular rate, Regular Rhythm, Normal S1, Normal S2 Abdomen: Bowel Sounds Present, Non Tender Extremities: Edema - +3 edema of LE Skin: No rashes Musculoskeletal: No Tenderness to Palpation of Joints or Extremities Vital Signs Temp Pulse Resp BP Pulse Ox 97.0 F L 72 20 H 105/56 L 99 01/15/18 07:55 01/15/18 07:55 01/15/18 07:55 01/15/18 07:55 01/15/18 07:55 Oxygen Flow Rate (L/min) 6 Oxygen Delivery Method Bi-pap Weight: 111.6 kg Body Mass Index (BMI) 45.4 Intake and Output for Last 24 Hours 01/13/18 01/14/18 01/15/18 23:59 23:59 23:59 Intake Total 1230 / 1230 1892 / 1892 300 / 300 Output Total 3075 / 3075 2100 / 2100 Balance -1845 / -1845 -208 / -208 300 / 300 Laboratory Tests Past 24 Hrs 01/14/18 01/15/18 01/15/18 08:47 05:50 05:50 WBC 11.5 H RBC 2.88 L Hgb 7.9 L Hct 28.0 L MCV 97.2 MCH 27.4 MCHC 28.2 L RDW 16.4 H RDW Differential 56.5 H Plt Count 421 MPV 9.4 Immature Gran % (Auto) 0.900 Neut % (Auto) 83.2 H Lymph % (Auto) 4.6 L [place] % (Auto) 9.1 Eos % (Auto) 1.8 Baso % (Auto) 0.4 Absolute Neuts (auto) 9.6 H Absolute Lymphs (auto) 0.53 L Total Counted Not Reportable Nucleated RBC % 0.6 Differential Comment SCANNED Polychromasia RARE Hypochromasia 3+ Anisocytosis 2+ Absolute Retic 0.07 Sodium 138 Potassium 3.7 Chloride 90 L Carbon Dioxide > 45.0 H* Anion Gap TNP BUN 51 H Creatinine 1.26 H Estim Creat Clear Calc 34.86 Est GFR (MDRD) Af Amer 54 L Est GFR (MDRD) Non-Af 45 L BUN/Creatinine Ratio 40.5 H Glucose 180 H Calcium 8.7 Total Bilirubin 0.30 AST 9 L ALT 13 Alkaline Phosphatase 65 Total Protein 7.0 Albumin 3.2 Globulin 3.8 Albumin/Globulin Ratio 0.8 L Blood Type AB POSITIVE Antibody Screen NEGATIVE Crossmatch See Detail POC Glucose 01/15/18 01/14/18 01/14/18 06:48 21:01 16:33 POC Glucose 203 H 203 H 144 H 01/14/18 11:34 POC Glucose 197 H Medical Necessity - Tobacco Use Smoking Status: Former smoker Tobacco Use: Cigarettes Assessment/Plan All Active Problems (Last Updated 01/02/18 @ 17:11 by David Montana MD) Diastolic CHF, acute on chronic (Acute) CKD stage 3 secondary to diabetes (Acute) CVA (cerebral vascular accident) (Resolved) CVA (cerebral vascular accident) (Resolved) History of GI bleeding (Resolved) TANJA. She has normal creatinine at baseline. Acute kidney injury is most probably from over diuresing with resultant decrease effective volume. Creatinine improved with holding diuretics ( lasix and metolazone). Pt was kept on Diamox for metabolic alkalosis. Pt was then re started on lasix 40 g IV BID on 01/14 for lungs crackles No BMP today. I will check BMP today Avoid ACEI/ARB No need for renal replacement therapy. Will continue to monitor kidney function closely with diuresis Metabolic alkalosis. Patient most has respiratory acidosis with compensatory metabolic alkalosis. Last PH showed Ph 7.32,C02>100, and HC03 52 continue diamox Check bicarb in the morning. CHF with pulmonary HTN and Pt seems decompensating again. Continue lasix 40 mg IV BID. continue Diamox 250 mg BID Continue daily weight. Cardiology service is following D/W Dr. Negrete Renal team will continue to follow
[2018-01-15] MEDS: Furosemide 40 MG/4 ML Vial IV ×2 (10:19→18:11)
[2018-01-15] MEDS: Metoprolol Tartrate 50 MG Tablet PO ×2 (10:19→21:27)
[2018-01-15] MEDS: Fluticasone 0.05% 1 SPRAY NASAL.SRY NASAL ×2 (10:19→21:28)
[2018-01-15] MEDS: 0.9% NaCl Peripheral Flush Adult/Peds IV ×2 (10:19→18:11)
[2018-01-15] MEDS: Escitalopram Oxalate 10 MG Tablet PO (10:19)
[2018-01-15] MEDS: Pantoprazole Sodium 40 MG Tablet PO ×2 (10:20→21:27)
--- NOTE | 2018-01-15 10:52 | CASEMGMT ---
SW met with patient, introduced self and role at [facility]. SW sat down with patient and had an extensive conversation with patient regarding her health, her wishes, fears, concerns, and what is important to her. SW listened and provided emotional support. Patient is afraid of dying as she is young. She understands she needs to wear the bi-pap, but it is difficult. She said she did wear it this am for 2 hours. SW also explained to patient it is important to work with Palliative Care as they have social workers, physicians, and nurses that will help her continue to process the progression of her disease. She thanked SW for talking with her. Hopefully this helped to get patient thinking a little more about what she wants for her future. Chey AGUIRRE MSW
--- NOTE | 2018-01-15 12:31 | PCM.PN.CARD ---
Subjectve: The patient remains still short of breath and still edematous. She has continued to rate require O2 support and CPAP type support. Objective: Vital Signs Temp Pulse Resp BP Pulse Ox 97.0 F L 80 18 105/56 L 99 01/15/18 07:55 01/15/18 11:02 01/15/18 11:02 01/15/18 07:55 01/15/18 07:55 Oxygen Flow Rate (L/min) 6 Oxygen Delivery Method Room Air Weight: 246 lb 0.574 oz Body Mass Index (BMI) 45.4 Intake and Output for Last 24 Hours 01/13/18 01/14/18 01/15/18 23:59 23:59 23:59 Intake Total 1230 / 1230 1892 / 1892 540 / 540 Output Total 3075 / 3075 2100 / 2100 700 / 700 Balance -1845 / -1845 -208 / -208 -160 / -160 General: Awake, Alert, Oriented x 3, Cooperative, No Acute Distress HEENT: Atraumatic, Normocephalic, PERRL, EOMI, Sclera Non Icteric Oral: Moist Mucosa Neck: Supple, Good ROM, No JVD Lungs: - - diminished breath sounds bilaterally Vascular: No Carotid Bruits Abdomen: Bowel Sounds Present, Soft, Non Tender Extremities: Severe RLE Edema, Severe LLE Edema Neurological: No Focal Motor or Sensory Deficit Psych/Mental Status: Appropriate, Normal Affect 01/15/18 05:50: WBC 11.5 H, RBC 2.88 L, Hgb 7.9 L, Hct 28.0 L, MCV 97.2, MCH 27.4, MCHC 28.2 L, RDW 16.4 H, RDW Differential 56.5 H, Plt Count 421, MPV 9.4, Immature Gran % (Auto) 0.900, Neut % (Auto) 83.2 H, Lymph % (Auto) 4.6 L, [place] % (Auto) 9.1, Eos % (Auto) 1.8, Baso % (Auto) 0.4, Absolute Neuts (auto) 9.6 H, Total Counted Not Reportable, Nucleated RBC % 0.6 01/15/18 05:50: Sodium 138, Potassium 3.7, Chloride 90 L, Carbon Dioxide > 45.0 H*, Anion Gap TNP, BUN 51 H, Creatinine 1.26 H, Est GFR (MDRD) Af Amer 54 L, Est GFR (MDRD) Non-Af 45 L, BUN/Creatinine Ratio 40.5 H, Glucose 180 H, Calcium 8.7, Total Bilirubin 0.30 Rhythm: Sinus rhythm Medical Necessity - Tobacco Use Smoking Status: Former smoker Tobacco Use: Cigarettes Assessment/Plan 1. Acute on chronic diastolic mediated CHF At the present time patient presents with findings compatible with acute on chronic diastolic mediated CHF. The patient has been receiving diuretic therapy. However based upon her ongoing acid-base issues her furosemide and metolazone are currently on hold. She is receiving Diamox. She will continue oxygen support. She is attempting BiPAP therapy. However, she has not been able to wear BiPAP all the time. She is being followed by pulmonology and nephrology. 2. Aortic valve stenosis She does have a history of aortic valve stenosis. There is somewhat of a discrepancy between her transthoracic echocardiogram and her diagnostic cardiac catheterization. He has been evaluated at the [facility] [place] for her aortic valve stenosis for consideration for TAVR thus far they have not proceeded with this procedure. A follow-up transthoracic echocardiogram was performed. Her aortic valve, is not well visualized, however, spectral Doppler suggest moderately severe aortic valve stenosis. 3. Pulmonary hypertension This may be secondary to not only her cardiovascular disease but her pulmonary disease with her COPD, etc. This can lead to cor pulmonale and right heart failure. He will need continued pulmonary support and medical therapy which does include her diuretic therapy. However, at the moment, based upon her acid base issues, her diuretics are on hold with respect to her traditional furosemide as well as metolazone therapy. 4. Hyperlipidemia She will continue lipid-lowering therapy as deemed appropriate. 5. Hypertension She will continue antihypertensive therapy with adjustment as needed. 6. Diabetes mellitus She will continue under the care of internal medicine. 7. COPD She does have a history of COPD. She will need continue pulmonary evaluation care. She is on O2 therapy. 8. Anemia Her hemoglobin has declined again. She will receive 1 unit of PRBCs with follow-up H&H. Hopefully this will help her oxygen carrying capacity. Overall, from a cardiac standpoint, she needs continued multi-specialty support and input. At the moment appears that she will continue to receive medical management/support as best as possible. However, based upon her ongoing multiple medical issues clinical course, it would not be unreasonable to consider transferring the patient to the [facility], where she has been evaluated in the past, for further input, at least from a cardiovascular standpoint, with respect to her aortic valve condition, which they have also been following, as to whether or not she has become a candidate for a TAVR procedure that may provide some benefit to her knowing it may not be the cure for all her multiple medical issues. The above was discussed with the patient and Dr. Mcgill. The patient is willing to be transferred to [facility] for further evaluation / care. This note was generated with [employer] software. It may contain incorrect words, spelling, and punctuation that were not noted in checking the note before signing.
--- NOTE | 2018-01-15 12:38 | PN.CARD_ITS ---
Subjectve: The patient remains still short of breath and still edematous. She has continued to rate require O2 support and CPAP type support. Objective: Vital Signs Temp Pulse Resp BP Pulse Ox 97.0 F L 80 18 105/56 L 99 01/15/18 07:55 01/15/18 11:02 01/15/18 11:02 01/15/18 07:55 01/15/18 07:55 Oxygen Flow Rate (L/min) 6 Oxygen Delivery Method Room Air Weight: 246 lb 0.574 oz Body Mass Index (BMI) 45.4 Intake and Output for Last 24 Hours 01/13/18 01/14/18 01/15/18 23:59 23:59 23:59 Intake Total 1230 / 1230 1892 / 1892 540 / 540 Output Total 3075 / 3075 2100 / 2100 700 / 700 Balance -1845 / -1845 -208 / -208 -160 / -160 General: Awake, Alert, Oriented x 3, Cooperative, No Acute Distress HEENT: Atraumatic, Normocephalic, PERRL, EOMI, Sclera Non Icteric Oral: Moist Mucosa Neck: Supple, Good ROM, No JVD Lungs: - - diminished breath sounds bilaterally Vascular: No Carotid Bruits Abdomen: Bowel Sounds Present, Soft, Non Tender Extremities: Severe RLE Edema, Severe LLE Edema Neurological: No Focal Motor or Sensory Deficit Psych/Mental Status: Appropriate, Normal Affect 01/15/18 05:50: WBC 11.5 H, RBC 2.88 L, Hgb 7.9 L, Hct 28.0 L, MCV 97.2, MCH 27.4, MCHC 28.2 L, RDW 16.4 H, RDW Differential 56.5 H, Plt Count 421, MPV 9.4, Immature Gran % (Auto) 0.900, Neut % (Auto) 83.2 H, Lymph % (Auto) 4.6 L, [place] % (Auto) 9.1, Eos % (Auto) 1.8, Baso % (Auto) 0.4, Absolute Neuts (auto) 9.6 H, Total Counted Not Reportable, Nucleated RBC % 0.6 01/15/18 05:50: Sodium 138, Potassium 3.7, Chloride 90 L, Carbon Dioxide > 45.0 H*, Anion Gap TNP, BUN 51 H, Creatinine 1.26 H, Est GFR (MDRD) Af Amer 54 L, Est GFR (MDRD) Non-Af 45 L, BUN/Creatinine Ratio 40.5 H, Glucose 180 H, Calcium 8.7, Total Bilirubin 0.30 Rhythm: Sinus rhythm Medical Necessity - Tobacco Use Smoking Status: Former smoker Tobacco Use: Cigarettes Assessment/Plan 1. Acute on chronic diastolic mediated CHF At the present time patient presents with findings compatible with acute on chronic diastolic mediated CHF. The patient has been receiving diuretic therapy. However based upon her ongoing acid-base issues her furosemide and metolazone are currently on hold. She is receiving Diamox. She will continue oxygen support. She is attempting BiPAP therapy. However, she has not been able to wear BiPAP all the time. She is being followed by pulmonology and nephrology. 2. Aortic valve stenosis She does have a history of aortic valve stenosis. There is somewhat of a discrepancy between her transthoracic echocardiogram and her diagnostic cardiac catheterization. He has been evaluated at the [facility] [place] for her aortic valve stenosis for consideration for TAVR thus far they have not proceeded with this procedure. A follow-up transthoracic echocardiogram was performed. Her aortic valve, is not well visualized, however, spectral Doppler suggest moderately severe aortic valve stenosis. 3. Pulmonary hypertension This may be secondary to not only her cardiovascular disease but her pulmonary disease with her COPD, etc. This can lead to cor pulmonale and right heart failure. He will need continued pulmonary support and medical therapy which does include her diuretic therapy. However, at the moment, based upon her acid base issues, her diuretics are on hold with respect to her traditional furosemide as well as metolazone therapy. 4. Hyperlipidemia She will continue lipid-lowering therapy as deemed appropriate. 5. Hypertension She will continue antihypertensive therapy with adjustment as needed. 6. Diabetes mellitus She will continue under the care of internal medicine. 7. COPD She does have a history of COPD. She will need continue pulmonary evaluation care. She is on O2 therapy. 8. Anemia Her hemoglobin has declined again. She will receive 1 unit of PRBCs with follow-up H&H. Hopefully this will help her oxygen carrying capacity. Overall, from a cardiac standpoint, she needs continued multi-specialty support and input. At the moment appears that she will continue to receive medical management/support as best as possible. However, based upon her ongoing multiple medical issues clinical course, it would not be unreasonable to consider transferring the patient to the [facility], where she has been evaluated in the past, for further input, at least from a cardiovascular standpoint, with respect to her aortic valve condition, which they have also been following, as to whether or not she has become a candidate for a TAVR procedure that may provide some benefit to her knowing it may not be the cure for all her multiple medical issues. The above was discussed with the patient and Dr. Mcgill. The patient is willing to be transferred to [facility] for further evaluation / care. This note was generated with [employer] software. It may contain incorrect words, spelling, and punctuation that were not noted in checking the note before signing.
--- NOTE | 2018-01-15 13:35 | PCM.DC ---
- Discharge Diagnoses Current Active Problems: Current Active and Chronic Problems (Last Updated 01/02/18 @ 17:11 by David Montana MD) Diastolic CHF, acute on chronic (Acute) CKD stage 3 secondary to diabetes (Acute) Reason(s) for Visit for Discharge Instructions: Shortness of breath You will use the following diet at home:: Calorie/Carbohydrate Controlled (specify 1200, 1400, etc), Cardiac Your food should be the consistency of: Regular Your liquids should be the consistency of: Regular/Thin Discharge Activity: Return to Normal Activity Allergies/Adverse Reactions: Allergies No Known Allergies Allergy (Verified 01/02/18 15:03) Medications to take at Discharge Metformin HCl [Glucophage] 1,000 mg PO BIDCM 01/15/14 Simvastatin [Zocor] 20 mg PO QHS 01/15/14 Escitalopram Oxalate [Lexapro] 10 mg PO DAILY 06/29/15 traZODone [Desyrel] 100 mg PO QHS PRN PRN 06/29/15 Budesonide/Formoterol Fumarate [Symbicort 160-4.5 Mcg Inhaler] 2 puff IH BID 03/27/17 Fluticasone 0.05% [Flonase Nasal [place]] 1 spray NASAL BID 04/24/17 Acetaminophen [Tylenol Tablet] 650 mg PO Q6H PRN PRN tab 06/10/17 Ipratropium/Albuterol Sulfate [Duoneb] 3 ml INHALATION Q4H.RT ampul.neb 06/10/17 Furosemide [Lasix] 80 mg PO BID 09/02/17 ferrous sulfate 325 mg (65 mg iron) tablet 325 mg PO TID tab 09/09/17 metoprolol tartrate 50 mg tablet 50 mg PO BID #180 tab 11/12/17 Albuterol Sulfate [Ventolin Hfa] 1 - 2 puff INHALATION PRN PRN 01/02/18 Primary Care Physician: Vic Chen MD [Primary Care Provider] - Test Results: Test results from this visit will be discussed in further detail at your follow-up appointment, if applicable. Proposed Discharge Date: 01/15/18
--- NOTE | 2018-01-15 13:36 | PCM.DC.SUM ---
Discharge Date and Diagnosis - Problem List Patient Problems: Active and Suspected Problems (Last Updated 01/02/18 @ 17:11 by David Montana MD) Diastolic CHF, acute on chronic (Acute) CKD stage 3 secondary to diabetes (Acute) Date of Admission: 01/02/18 - Primary Discharge Diagnosis Active and Suspected Problems (Last Updated 01/02/18 @ 17:11 by David Montana MD) Diastolic CHF, acute on chronic (Acute) CKD stage 3 secondary to diabetes (Acute) - Secondary Discharge Diagnosis Chronic Problems (Last Updated 01/02/18 @ 17:11 by David Montana MD) Chronic diastolic (congestive) heart failure (Chronic) Cerebral infarction, unspecified (Chronic) Palpitations (Chronic) Anxiety (Chronic) Left atrial enlargement (Chronic) Hypersomnia (Chronic) Anemia (Chronic) Carotid artery stenosis (Chronic) Chronic hypoxemic respiratory failure (Chronic) Pulmonary fibrosis (Chronic) 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 3 severe COPD by GOLD classification (Chronic) Aortic stenosis (Chronic) Moderate to severe with valve area 1.1 on cardiac catheterization in 2013 Diabetes mellitus type II (Chronic) Pulmonary hypertension (Chronic) With PA pressures 55 by cardiac catheterization Hypertension (Chronic) HLD (hyperlipidemia) (Chronic) 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) Hospital Course and Treatment Operations: None Summary of Care Provided: The patient is a 67 year old F [] Patient Problems: Active and Suspected Problems (Last Updated 01/02/18 @ 17:11 by David Montana MD) Diastolic CHF, acute on chronic (Acute) CKD stage 3 secondary to diabetes (Acute) - Physical Exam Vital Signs Temp Pulse Resp BP Pulse Ox 98.2 F 68 18 102/52 L 98 01/15/18 13:31 01/15/18 13:31 01/15/18 13:31 01/15/18 13:31 01/15/18 13:31 Oxygen Flow Rate (L/min) 6 Oxygen Delivery Method Nasal Cannula Weight: 111.6 kg Body Mass Index (BMI) 45.4 Intake and Output for Last 24 Hours 01/13/18 01/14/18 01/15/18 23:59 23:59 23:59 Intake Total 1230 / 1230 1892 / 1892 540 / 540 Output Total 3075 / 3075 2100 / 2100 700 / 700 Balance -1845 / -1845 -208 / -208 -160 / -160 Laboratory Tests Past 24 Hrs 01/14/18 01/15/18 01/15/18 08:47 05:50 05:50 WBC 11.5 H RBC 2.88 L Hgb 7.9 L Hct 28.0 L MCV 97.2 MCH 27.4 MCHC 28.2 L RDW 16.4 H RDW Differential 56.5 H Plt Count 421 MPV 9.4 Immature Gran % (Auto) 0.900 Neut % (Auto) 83.2 H Lymph % (Auto) 4.6 L [place] % (Auto) 9.1 Eos % (Auto) 1.8 Baso % (Auto) 0.4 Absolute Neuts (auto) 9.6 H Absolute Lymphs (auto) 0.53 L Total Counted Not Reportable Nucleated RBC % 0.6 Differential Comment SCANNED Polychromasia RARE Hypochromasia 3+ Anisocytosis 2+ Absolute Retic 0.07 Sodium 138 Potassium 3.7 Chloride 90 L Carbon Dioxide > 45.0 H* Anion Gap TNP BUN 51 H Creatinine 1.26 H Estim Creat Clear Calc 34.86 Est GFR (MDRD) Af Amer 54 L Est GFR (MDRD) Non-Af 45 L BUN/Creatinine Ratio 40.5 H Glucose 180 H Calcium 8.7 Total Bilirubin 0.30 AST 9 L ALT 13 Alkaline Phosphatase 65 Total Protein 7.0 Albumin 3.2 Globulin 3.8 Albumin/Globulin Ratio 0.8 L Crossmatch See Detail POC Glucose 01/15/18 01/14/18 01/14/18 06:48 21:01 16:33 POC Glucose 203 H 203 H 144 H Discharge Activity: Return to Normal Activity Home Medications: Medications to take at Discharge Metformin HCl [Glucophage] 1,000 mg PO BIDCM 01/15/14 Simvastatin [Zocor] 20 mg PO QHS 01/15/14 Escitalopram Oxalate [Lexapro] 10 mg PO DAILY 06/29/15 traZODone [Desyrel] 100 mg PO QHS PRN PRN 06/29/15 Budesonide/Formoterol Fumarate [Symbicort 160-4.5 Mcg Inhaler] 2 puff IH BID 03/27/17 Fluticasone 0.05% [Flonase Nasal [place]] 1 spray NASAL BID 04/24/17 Acetaminophen [Tylenol Tablet] 650 mg PO Q6H PRN PRN tab 06/10/17 Ipratropium/Albuterol Sulfate [Duoneb] 3 ml INHALATION Q4H.RT ampul.neb 06/10/17 Furosemide [Lasix] 80 mg PO BID 09/02/17 ferrous sulfate 325 mg (65 mg iron) tablet 325 mg PO TID tab 09/09/17 metoprolol tartrate 50 mg tablet 50 mg PO BID #180 tab 11/12/17 Albuterol Sulfate [Ventolin Hfa] 1 - 2 puff INHALATION PRN PRN 01/02/18 Primary Care Physician: Vic Chen MD [Primary Care Provider] - Medical Necessity - Tobacco Use Smoking Status: Former smoker Tobacco Use: Cigarettes
[2018-01-15 16:35] LABS: Bedside Glucose 212 mg/dL (70-110)
[2018-01-15 17:10] LABS: Bedside Glucose 149 mg/dL (70-110)
[2018-01-15 21:06] LABS: Bedside Glucose 195 mg/dL (70-110)
[2018-01-15] MEDS: Atorvastatin Calcium 10 MG Tablet PO (21:27)
[2018-01-16] VITALS (20 sets, daily range): BP systolic 97–124; BP diastolic 47–56; PULSE 69–85; RESP 12–20; TEMP 36.3–36.9; O2SAT 88–98
--- NOTE | 2018-01-16 00:28 | NURSING ---
PT SLEEPING IN CHAIR. PT WOKEN UP AND OFFERED THE BIPAP BUT SHE REFUSED. PO 88% ON 6LNC. PT INCREASED TO 7L.
--- NOTE | 2018-01-16 02:02 | CPS ---
Asked the patient several times if she would be willing to wear the Bipap. Patient denied several times. Patient was informed of the benefits of said therapy but patient still denied. RN aware.
[2018-01-16 06:56] LABS: Bedside Glucose 183 mg/dL (70-110)
[2018-01-16] MEDS: Ipratropium/Albuterol Sulfate 3 ML AMPUL.NEB INHALATION ×5 (07:00→23:06)
[2018-01-16 07:09] LABS: Anion Gap 4 (5-15); BUN 45 mg/dL (7-18); BUN/Creat Ratio 35.2 RATIO (10-20); Calcium,Total 8.9 mg/dL (8.5-10.1); Chloride 91 mmol/L (98-107); Creatinine, Serum 1.28 mg/dL (0.55-1.02); EST Glomerular Filtration Rate 44 mL/min (>60); Est Glom Filt Rate - Afr Amer 53 mL/min (>60); Estimated Creatinine Clearance 34.31 ml/min; Glucose 174 mg/dL (74-106); Magnesium 2.2 mg/dL (1.6-2.6); Phosphorus 5.6 mg/dL (2.5-4.9); Potassium 3.7 mmol/L (3.5-5.1); Sodium Level 138 mmol/L (136-145)
[2018-01-16 07:11] LABS: Absolute Lymphocyte Count 0.96 X10^3/ul (0.83-4.51); Absolute Neutrophil Count 9.4 X10^3/uL (2.0-7.7); Basophil# 0.04 X10^3/uL; Basophil% 0.4 % (0-1); Eosinophil# 0.19 X10^3/uL; Eosinophils% 1.7 % (0-5); Hematocrit 30.4 % (37-47); Hemoglobin 8.4 g/dl (12.0-15.0); Lymphocyte # 0.96 X10^3/ul (4.0); Lymphocyte % 8.5 % (19-41); Mean Corp Hgb Conc 27.6 g/gl (32-36); Mean Corpuscular Hgb 27.2 pg (27.0-32.0); Mean Corpuscular Volume 98.4 fL (81-99); Mean Platelet Vol. 9.8 fl (6.2-12.0); Monocyte# 0.61 X10^3/uL; Monocyte% 5.4 % (0-10); Neutrophil # 9.41 X10^3/uL (2.7-7.7); Neutrophil % 83.2 % (47-70); POSITIVE COUNT NO; POSITIVE DIFFERENTIAL NO; POSITIVE MORPHOLOGY NO; Platelet Count 504 K/mm3 (150-450); RBC Distribution Width CV 16.4 % (11.6-14.6); RBC Distribution Width SD 57.7 fl (35.1-43.9); Red Blood Count 3.09 M/mm3 (4.2-5.4); White Blood Count 11.3 K/mm3 (4.4-11.0)
[2018-01-16 07:12] LABS: Absolute Nucleated RBC Count 0.06 10^3/uL (0-5); NRBC Flagged by Analyzer 0.5 % (0-5)
[2018-01-16] MEDS: Fluticasone 0.05% 1 SPRAY NASAL.SRY NASAL ×2 (09:13→22:56)
[2018-01-16] MEDS: Insulin Lispro 100 UNIT/ML INSULN.PEN SQ ×4 (09:13→22:58)
[2018-01-16] MEDS: Amox/Clavulanate 875 MG Tablet PO ×2 (09:14→16:37)
[2018-01-16] MEDS: AcetaZOLAMIDE 250 MG Tablet PO ×2 (09:14→23:01)
[2018-01-16] MEDS: Metoprolol Tartrate 50 MG Tablet PO ×2 (09:14→23:00)
[2018-01-16] MEDS: Ferrous Sulfate 325 MG Tablet PO ×3 (09:14→16:37)
[2018-01-16] MEDS: Escitalopram Oxalate 10 MG Tablet PO (09:14)
[2018-01-16] MEDS: Furosemide 40 MG/4 ML Vial IV ×2 (09:15→16:37)
[2018-01-16] MEDS: Pantoprazole Sodium 40 MG Tablet PO ×2 (09:15→23:01)
--- NOTE | 2018-01-16 09:32 | PN_ITS ---
Patient Problems: Active and Suspected Problems (Last Updated 01/02/18 @ 17:11 by David Montana MD) Diastolic CHF, acute on chronic (Acute) CKD stage 3 secondary to diabetes (Acute) Subjective: Patient did okay overnight. No acute issues were reported. Patient was not compliant with BiPAP therapy, but reports subjective improvement in dyspnea at rest this morning. No cough is been reported. No fever has been noted by nursing. - Physical Exam General: Alert, Oriented x3, Cooperative, No apparent distress, - - RASS 0. Morbidly obese. HEENT: Atraumatic, PERRLA, EOMI, Normocephalic, - - Slight scleral injection without icterus Oral: Moist Mucosa, No Gingival or Mucosal Lesions/ Ulcerations Neck: Supple, No Nodes, Trachea Midline, JVD, Right Lungs: No rhonchi, No wheeze, No rales, Diminished, - - Symmetric expansion. No dullness to percussion. Cardiovascular: Regular rate, Regular Rhythm, Normal S1, Normal S2, Murmur - Unchanged, No rub noted, No Gallop Abdomen: Bowel Sounds Present, Soft, Non Tender, Non-Distended, Obese Extremities: No cyanosis, Capillary Refill Less than 3 Seconds, Clubbing, Edema Skin: - - No significant change compared to previous Musculoskeletal: No Tenderness to Palpation of Joints or Extremities, No Muscle Wasting Lymphatic: No Cervical, Supraclavicular, or Inguinal Adenopathy Neurological: Cranial nerves II-XII grossly intact, Neuro grossly intact, Motor Exam 5/5 strength throughout Psych/Mental Status: Alert and oriented to time, place, person, mood and affect Vital Signs Temp Pulse Resp BP Pulse Ox 36.8 C 76 18 111/55 L 95 01/16/18 09:05 01/16/18 09:14 01/16/18 09:05 01/16/18 09:14 01/16/18 09:05 Oxygen Flow Rate (L/min) 6 Oxygen Delivery Method Nasal Cannula Weight: 110.2 kg Body Mass Index (BMI) 45.4 Intake and Output for Last 24 Hours 01/14/18 01/15/18 01/16/18 23:59 23:59 23:59 Intake Total 1892 / 1892 1000 / 1000 60 / 60 Output Total 2099 / 2099 400 / 400 Balance -208 / -208 -1025 / -1025 -340 / -340 Laboratory Tests Past 24 Hrs 01/15/18 01/16/18 01/16/18 05:50 05:55 05:55 WBC 11.3 H RBC 3.09 L Hgb 8.4 L Hct 30.4 L MCV 98.4 MCH 27.2 MCHC 27.6 L RDW 16.4 H RDW Differential 57.7 H Plt Count 504 H MPV 9.8 Immature Gran % (Auto) 0.800 Neut % (Auto) 83.2 H Lymph % (Auto) 8.5 L [place] % (Auto) 5.4 Eos % (Auto) 1.7 Baso % (Auto) 0.4 Absolute Neuts (auto) 9.4 H Absolute Lymphs (auto) 0.96 Total Counted Not Reportable Nucleated RBC % 0.5 Absolute Retic 0.06 Sodium 138 138 Potassium 3.7 3.7 Chloride 90 L 91 L Carbon Dioxide > 45.0 H* 43.0 H Anion Gap TNP 4 L BUN 51 H 45 H Creatinine 1.26 H 1.28 H Estim Creat Clear Calc 34.86 34.31 Est GFR (MDRD) Af Amer 54 L 53 L Est GFR (MDRD) Non-Af 45 L 44 L BUN/Creatinine Ratio 40.5 H 35.2 H Glucose 180 H 174 H Calcium 8.7 8.9 Phosphorus 5.6 H Magnesium 2.2 Total Bilirubin 0.30 AST 9 L ALT 13 Alkaline Phosphatase 65 Total Protein 7.0 Albumin 3.2 Globulin 3.8 Albumin/Globulin Ratio 0.8 L POC Glucose 01/16/18 01/15/18 01/15/18 06:47 20:59 17:08 POC Glucose 183 H 195 H 149 H 01/15/18 13:22 POC Glucose 212 H Medical Necessity - Tobacco Use Smoking Status: Former smoker Tobacco Use: Cigarettes Assessment/Plan All Active Problems (Last Updated 01/02/18 @ 17:11 by David Montana MD) Diastolic CHF, acute on chronic (Acute) CKD stage 3 secondary to diabetes (Acute) CVA (cerebral vascular accident) (Resolved) CVA (cerebral vascular accident) (Resolved) History of GI bleeding (Resolved) RECOMMENDATIONS: 1. Continue to encourage nasal CPAP with chinstrap 2. Await transfer to [facility] for possible TAVR 3. BiPAP with sleep and as needed 4. Wean oxygen as tolerated to keep saturations 90-94% 5. Increase activity as tolerated IMPRESSIONS: 1. Acute on chronic combined respiratory failure secondary to acute on chronic diastolic congestive heart failure Patient has been receiving significant diuresis over the course of the hospitalization. Patient has been diuresed over 15 L over the course of the hospitalization without accounting for incontinent episodes. Patient continues to have significant hypoxemia. I agree with transfer to [facility] for evaluation for possible valve replacement. Stressed to the patient the importance of BiPAP therapy as a bridge moving forward. Patient likely has an element of TRI, but this is compounded by elevated pulmonary artery pressures from patient's aortic stenosis. 2. Acute on chronic blood loss anemia Patient does have a history of GI AVMs in the past. Patient's hemoglobin is currently stable and acceptable. Transfuse to keep hemoglobin greater than 8 given cardiac condition. Patient is on a PPI at appropriate dosing. Doubt need for emergent endoscopy for evaluation. 3. Aortic stenosis Exact morphology is unclear at this time. Some testing suggest severe disease and others suggest that intervention is not required. Patient has had multiple admissions over the last year secondary to fluid overload requiring diuresis of 10-12 L of fluid. Patient is approaching her baseline fluid status. Patient would benefit from outpatient evaluation to see if surgical intervention would be appropriate. 4. Morbid obesity/type 2 diabetes mellitus/hypertension/advanced age/acute sinusitis Complicates care, management, recovery and prognosis. Likely okay to continue with baseline medications. Patient with variable p.o. intake. Would avoid metformin given patient's renal function and active diuresis previously. Patient is on antibiotics for reported acute sinusitis. Code Visit Inpatient E&M: [id number] [facility] L3
--- NOTE | 2018-01-16 10:07 | PN.RENAL_ITS ---
Patient Problems: Active and Suspected Problems (Last Updated 01/02/18 @ 17:11 by David Montana MD) Diastolic CHF, acute on chronic (Acute) CKD stage 3 secondary to diabetes (Acute) Subjective: Pt today is more awake and alert. Denied nausea / vomiting. she said her breathing is slightly better - Physical Exam General: Alert, Oriented x3 HEENT: Atraumatic Oral: Moist Mucosa Neck: Supple, No JVD Lungs: Diminished, Rhonchi, Short of Breath Cardiovascular: Regular rate, Regular Rhythm, Normal S1, Normal S2 Abdomen: Bowel Sounds Present, Soft, Non Tender Extremities: Edema - +2 edema of LE Skin: No rashes Musculoskeletal: No Tenderness to Palpation of Joints or Extremities Lymphatic: No Cervical, Supraclavicular, or Inguinal Adenopathy Neurological: Cranial nerves II-XII grossly intact, Neuro grossly intact Psych/Mental Status: Normal Affect Vital Signs Temp Pulse Resp BP Pulse Ox 98.3 F 76 18 111/55 L 95 01/16/18 09:05 01/16/18 09:14 01/16/18 09:05 01/16/18 09:14 01/16/18 09:05 Oxygen Flow Rate (L/min) 6 Oxygen Delivery Method Nasal Cannula Weight: 110.2 kg Body Mass Index (BMI) 45.4 Intake and Output for Last 24 Hours 01/14/18 01/15/18 01/16/18 23:59 23:59 23:59 Intake Total 1892 / 1892 1000 / 1000 60 / 60 Output Total 2099 / 2099 2024 / 2024 400 / 400 Balance -208 / -208 -1025 / -1025 -340 / -340 Laboratory Tests Past 24 Hrs 01/16/18 01/16/18 05:55 05:55 WBC 11.3 H RBC 3.09 L Hgb 8.4 L Hct 30.4 L MCV 98.4 MCH 27.2 MCHC 27.6 L RDW 16.4 H RDW Differential 57.7 H Plt Count 504 H MPV 9.8 Immature Gran % (Auto) 0.800 Neut % (Auto) 83.2 H Lymph % (Auto) 8.5 L [place] % (Auto) 5.4 Eos % (Auto) 1.7 Baso % (Auto) 0.4 Absolute Neuts (auto) 9.4 H Absolute Lymphs (auto) 0.96 Total Counted Not Reportable Nucleated RBC % 0.5 Absolute Retic 0.06 Sodium 138 Potassium 3.7 Chloride 91 L Carbon Dioxide 43.0 H Anion Gap 4 L BUN 45 H Creatinine 1.28 H Estim Creat Clear Calc 34.31 Est GFR (MDRD) Af Amer 53 L Est GFR (MDRD) Non-Af 44 L BUN/Creatinine Ratio 35.2 H Glucose 174 H Calcium 8.9 Phosphorus 5.6 H Magnesium 2.2 POC Glucose 01/16/18 01/15/18 01/15/18 06:47 20:59 17:08 POC Glucose 183 H 195 H 149 H 01/15/18 13:22 POC Glucose 212 H Medical Necessity - Tobacco Use Smoking Status: Former smoker Tobacco Use: Cigarettes Assessment/Plan All Active Problems (Last Updated 01/02/18 @ 17:11 by David Montana MD) Diastolic CHF, acute on chronic (Acute) CKD stage 3 secondary to diabetes (Acute) CVA (cerebral vascular accident) (Resolved) CVA (cerebral vascular accident) (Resolved) History of GI bleeding (Resolved) TANJA. She has normal creatinine at baseline. Acute kidney injury is most probably from over diuresing with resultant decrease effective volume. Creatinine improved with holding diuretics ( lasix and metolazone). Pt was kept on Diamox for metabolic alkalosis. Pt was then re started on lasix 40 g IV BID on 01/14 for lungs crackles Cr seems stable at 1.2 with current diuretics dose ( lasix and Diamox). I will continue the same for now Avoid ACEI/ARB No need for renal replacement therapy. Will continue to monitor kidney function closely with diuresis Metabolic alkalosis. Patient most has respiratory acidosis with compensatory metabolic alkalosis.Last HC03 trend >45 to 42 continue diamox Check bicarb in the morning. CHF with pulmonary HTN and Continue lasix 40 mg IV BID. continue Diamox 250 mg BID Continue daily weight. Cardiology service is following Pt will be transfer to when be available D/W Dr. Negrete Renal team will continue to follow
--- NOTE | 2018-01-16 10:30 | PN_ITS ---
Patient Problems: Active and Suspected Problems (Last Updated 01/02/18 @ 17:11 by David Montana MD) Diastolic CHF, acute on chronic (Acute) CKD stage 3 secondary to diabetes (Acute) Subjective: Late entry note: Patient was seen and examined on 01/15/2018. She apparently was not discharged At that time, no new complaints, no acute events overnight. She has been using her BiPAP intermittently for short periods of time Objective: Physical exam: General: Alert, Oriented x3, Cooperative, - - Mild respiratory distress, on 6 L of oxygen, obese HEENT: Atraumatic, PERRLA, EOMI, Normocephalic Oral: Moist Mucosa Neck: Supple, No JVD, Negative Carotid Bruits Lungs: Normal air movement, Diminished Cardiovascular: Regular rate, Regular Rhythm, Normal S1, Normal S2, Murmur - Holosystolic murmur Abdomen: Bowel Sounds Present, Soft, Non Tender, Non-Distended, No Hepato- splenomegaly Extremities: Edema - Bilateral +2 pitting, nontender, chronic venous stasis Skin: No rashes, No breakdown Musculoskeletal: No Tenderness to Palpation of Joints or Extremities Lymphatic: No Cervical, Supraclavicular, or Inguinal Adenopathy Neurological: Cranial nerves II-XII grossly intact Psych/Mental Status: Normal Affect, Appropriate Vitals/I&O's: Vital Signs Temp Pulse Resp BP Pulse Ox 98.3 F 76 18 111/55 L 95 01/16/18 09:05 01/16/18 09:14 01/16/18 09:05 01/16/18 09:14 01/16/18 09:05 Oxygen Flow Rate (L/min) 6 Oxygen Delivery Method Nasal Cannula Weight: 110.2 kg Body Mass Index (BMI) 45.4 Intake and Output for Last 24 Hours 01/14/18 01/15/18 01/16/18 23:59 23:59 23:59 Intake Total 1892 / 1892 1000 / 1000 60 / 60 Output Total 2099 / 2099 400 / 400 Balance -208 / -208 -1025 / -1025 -340 / -340 Laboratory Results 01/15/18 13:22: POC Glucose 212 H 01/15/18 17:08: POC Glucose 149 H 01/15/18 20:59: POC Glucose 195 H 01/16/18 05:55: WBC 11.3 H, RBC 3.09 L, Hgb 8.4 L, Hct 30.4 L, MCV 98.4, MCH 27.2, MCHC 27.6 L, RDW 16.4 H, RDW Differential 57.7 H, Plt Count 504 H, MPV 9.8, Immature Gran % (Auto) 0.800, Neut % (Auto) 83.2 H, Lymph % (Auto) 8.5 L, [place] % (Auto) 5.4, Eos % (Auto) 1.7, Baso % (Auto) 0.4, Absolute Neuts (auto) 9.4 H, Absolute Lymphs (auto) 0.96, Total Counted Not Reportable, Nucleated RBC % 0.5, Absolute Retic 0.06 01/16/18 05:55: Sodium 138, Potassium 3.7, Chloride 91 L, Carbon Dioxide 43.0 H, Anion Gap 4 L, BUN 45 H, Creatinine 1.28 H, Estim Creat Clear Calc 34.31, Est GFR (MDRD) Af Amer 53 L, Est GFR (MDRD) Non-Af 44 L, BUN/Creatinine Ratio 35.2 H , Glucose 174 H, Calcium 8.9, Phosphorus 5.6 H, Magnesium 2.2 01/16/18 06:47: POC Glucose 183 H Current Medications Acetaminophen (Tylenol) 650 mg PO Q6H PRN PRN PRN Reason: Mild Pain (scale 0-3)/T>100.7 Last Admin: 01/14/18 15:35 Dose: 650 mg Hydrocodone Bitart/Acetaminophen ([place] 5mg-325mg) 1 - 2 tablet PO Q6H PRN PRN PRN Reason: Moderate-severe pain Acetazolamide (Diamox) 250 mg PO BID [facility] Last Admin: 01/16/18 09:14 Dose: 250 mg Albuterol Sulfate (Ventolin Aerosols) 2.5 mg INHALATION Q2H PRN PRN PRN Reason: Shortness of breath, wheezing Last Admin: 01/12/18 20:36 Dose: 2.5 mg Albuterol/Ipratropium (Duoneb) 3 ml INHALATION Q4H.RT [facility] Last Admin: 01/16/18 07:00 Dose: 3 ml Amoxicillin/Clavulanate [facility] ([facility] Last Admin: 01/16/18 09:14 Dose: 875 mg Atorvastatin Calcium (Lipitor) 10 mg PO QHS [facility] Last Admin: 01/15/18 21:27 Dose: 10 mg Escitalopram Oxalate (Lexapro) 10 mg PO DAILY [facility] Last Admin: 01/16/18 09:14 Dose: 10 mg Ferrous Sulfate (Ferrous Sulfate) 325 mg PO TIDCM [facility] Last Admin: 01/16/18 09:14 Dose: 325 mg Flunisolide (Nasarel Nose [place]) 2 spray NASAL BID [facility] Last Admin: 01/16/18 09:13 Dose: 2 spray Fluticasone Propionate (Flonase Nasal [place]) 1 spray NASAL BID [facility] Last Admin: 01/16/18 09:13 Dose: 1 spray Furosemide (Lasix) 40 mg IV BID@1000,1800 [facility] Last Admin: 01/16/18 09:15 Dose: 40 mg Hydralazine HCl (Apresoline Iv) 10 mg IV Q4H PRN PRN PRN Reason: SBP > 160 Insulin Glargine (Lantus (Bkc)) 5 units SC QHS [facility] Last Admin: 01/15/18 21:32 Dose: 5 units Insulin Human Lispro (Humalog Kwikpen (Bkc)) 0 unit SQ [facility]; Protocol Last Admin: 01/16/18 09:13 Dose: 3 units Magnesium Hydroxide (Milk Of Magnesia) 30 ml PO DAILY PRN PRN Reason: Constipation Last Admin: 01/14/18 09:33 Dose: 30 ml Metoprolol Tartrate (Lopressor (Beta [place])) 50 mg PO BID [facility] Last Admin: 01/16/18 09:14 Dose: 50 mg Morphine Sulfate () 1 - 2 mg IV Q4H PRN PRN PRN Reason: PAIN Nitroglycerin (Nitrostat) 0.4 mg SUBLINGUAL Q5M PRN PRN Reason: Angina pain Ondansetron HCl (Zofran) 4 mg IV Q8H PRN PRN PRN Reason: Nausea Last Admin: 01/12/18 20:35 Dose: 4 mg Pantoprazole Sodium (Protonix) 40 mg PO BID [facility] Last Admin: 01/16/18 09:15 Dose: 40 mg Potassium Chloride (K-Dur) [facility] Last Admin: 01/16/18 09:15 Dose: 20 meq Sodium Chloride () 5 - 30 ml IV UD PRN PRN Reason: SALINE FLUSH Last Admin: 01/15/18 18:11 Dose: 10 ml Sodium Chloride ([place] Nasal [place]) 2 spray NASAL TID PRN PRN PRN Reason: NASAL DRYNESS Last Admin: 01/14/18 21:19 Dose: 2 spray Trazodone HCl (Desyrel) 100 mg PO QHS PRN PRN PRN Reason: SLEEP Last Admin: 01/13/18 22:34 Dose: 100 mg Medical Necessity - Tobacco Use Smoking Status: Former smoker Tobacco Use: Cigarettes Assessment/Plan All Active Problems (Last Updated 01/02/18 @ 17:11 by David Montana MD) Diastolic CHF, acute on chronic (Acute) CKD stage 3 secondary to diabetes (Acute) CVA (cerebral vascular accident) (Resolved) CVA (cerebral vascular accident) (Resolved) History of GI bleeding (Resolved) 67 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 1. Acute sinusitis, per history, started on Augmentin, day 5 of 7 days total 2. Acute on chronic hypoxic respiratory failure, on 6L of oxygen, secondary to acute on chronic diastolic CHF, acute on chronic anemia, continue on breathing treatments,wean off oxygen, encourage incentive spirometer, encourage use of BiPAP, will consult pulmonary also 3. Acute on chronic diastolic CHF, on Lasix 40 mg IV twice daily, diuresing well, bicarbonate better with use of BiPAP 4. Acute metabolic alkalosis secondary to contraction alkalosis/chronic COPD retention, off Diamox, bicarbonate is better with use of BiPAP encourage patient to use BiPAP, will continue to monitor BMP 5. Acute on chronic anemia, history of AVMs, chronic anemia, iron deficient, on oral iron, status post 3 units packed RBC, Hemoglobin is stable at 8.4 6. Indeterminate troponin second to demand ischemia, no history of CAD, on beta- jeffery will continue to monitor 7. Aortic stenosis, moderate-severe 8. Severe COPD/severe pulmonary hypertension/chronic respiratory failure, and has been refusing to use her BiPAP, claustrophobic, encouraged her to use BiPAP, pulmonology consulted, recommend continued use of BiPAP 9. Hypertension, stable, on metoprolol, continue to monitor vitals. 10. Type 2 diabetes mellitus, sugars are relatively better controlled, metformin withheld, blood sugars uncontrolled, started on low-dose Lantus 5 units nightly, continue with Accu-Cheks with insulin sliding scale 11. Morbid obesity, BMI 46, diet recommended 12. DVT prophylaxis -SCDs on account of chronic GI bleed 13. CODE STATUS: Full code -discussed again with the patient Code Visit Inpatient E&M: 93675 Subs Hosp L2
[2018-01-16 12:45] LABS: Bedside Glucose 242 mg/dL (70-110)
--- NOTE | 2018-01-16 14:00 | PCM.PN.HOSP ---
Patient Problems: Active and Suspected Problems (Last Updated 01/02/18 @ 17:11 by David Montana MD) Diastolic CHF, acute on chronic (Acute) CKD stage 3 secondary to diabetes (Acute) Subjective: Patient was seen and examined. No new complaints. Been using BiPAP intermittently. Feels about the same or slightly better. Denies any chest pain no dizziness. Objective: Physical exam: General: Alert, Oriented x3, Cooperative, - - Mild respiratory distress, on 6 L of oxygen, obese HEENT: Atraumatic, PERRLA, EOMI, Normocephalic Oral: Moist Mucosa Neck: Supple, No JVD, Negative Carotid Bruits Lungs: Normal air movement, Diminished Cardiovascular: Regular rate, Regular Rhythm, Normal S1, Normal S2, Murmur - Holosystolic murmur Abdomen: Bowel Sounds Present, Soft, Non Tender, Non-Distended, No Hepato-splenomegaly Extremities: Edema - Bilateral +2 pitting, nontender, chronic venous stasis Skin: No rashes, No breakdown Musculoskeletal: No Tenderness to Palpation of Joints or Extremities Lymphatic: No Cervical, Supraclavicular, or Inguinal Adenopathy Neurological: Cranial nerves II-XII grossly intact Psych/Mental Status: Normal Affect, Appropriate Vitals/I&O's: Vital Signs Temp Pulse Resp BP Pulse Ox 98.3 F 72 18 111/55 L 95 01/16/18 09:05 01/16/18 11:46 01/16/18 11:08 01/16/18 09:14 01/16/18 09:05 Oxygen Flow Rate (L/min) 6 Oxygen Delivery Method Nasal Cannula Weight: 110.2 kg Body Mass Index (BMI) 45.4 Intake and Output for Last 24 Hours 01/14/18 01/15/18 01/16/18 23:59 23:59 23:59 Intake Total 1892 / 1892 1000 / 1000 530 / 530 Output Total 2099 / 2099 600 / 600 Balance -208 / -208 -1025 / -1025 -70 / -70 Laboratory Results 01/15/18 13:22: POC Glucose 212 H 01/15/18 17:08: POC Glucose 149 H 01/15/18 20:59: POC Glucose 195 H 01/16/18 05:55: WBC 11.3 H, RBC 3.09 L, Hgb 8.4 L, Hct 30.4 L, MCV 98.4, MCH 27.2, MCHC 27.6 L, RDW 16.4 H, RDW Differential 57.7 H, Plt Count 504 H, MPV 9.8, Immature Gran % (Auto) 0.800, Neut % (Auto) 83.2 H, Lymph % (Auto) 8.5 L, [place] % (Auto) 5.4, Eos % (Auto) 1.7, Baso % (Auto) 0.4, Absolute Neuts (auto) 9.4 H, Absolute Lymphs (auto) 0.96, Total Counted Not Reportable, Nucleated RBC % 0.5, Absolute Retic 0.06 01/16/18 05:55: Sodium 138, Potassium 3.7, Chloride 91 L, Carbon Dioxide 43.0 H, Anion Gap 4 L, BUN 45 H, Creatinine 1.28 H, Estim Creat Clear Calc 34.31, Est GFR (MDRD) Af Amer 53 L, Est GFR (MDRD) Non-Af 44 L, BUN/Creatinine Ratio 35.2 H, Glucose 174 H, Calcium 8.9, Phosphorus 5.6 H, Magnesium 2.2 01/16/18 06:47: POC Glucose 183 H 01/16/18 12:30: POC Glucose 242 H Current Medications Acetaminophen (Tylenol) 650 mg PO Q6H PRN PRN PRN Reason: Mild Pain (scale 0-3)/T>100.7 Last Admin: 01/14/18 15:35 Dose: 650 mg Hydrocodone Bitart/Acetaminophen ([place] 5mg-325mg) 1 - 2 tablet PO Q6H PRN PRN PRN Reason: Moderate-severe pain Acetazolamide (Diamox) 250 mg PO BID [facility] Last Admin: 01/16/18 09:14 Dose: 250 mg Albuterol Sulfate (Ventolin Aerosols) 2.5 mg INHALATION Q2H PRN PRN PRN Reason: Shortness of breath, wheezing Last Admin: 01/12/18 20:36 Dose: 2.5 mg Albuterol/Ipratropium (Duoneb) 3 ml INHALATION Q4H.RT [facility] Last Admin: 01/16/18 11:06 Dose: 3 ml Amoxicillin/Clavulanate Potassium ([facility]in Tablet) [facility] Last Admin: 01/16/18 09:14 Dose: 875 mg Atorvastatin Calcium (Lipitor) 10 mg PO QHS [facility] Last Admin: 01/15/18 21:27 Dose: 10 mg Escitalopram Oxalate (Lexapro) 10 mg PO DAILY [facility] Last Admin: 01/16/18 09:14 Dose: 10 mg Ferrous Sulfate (Ferrous Sulfate) 325 mg PO TIDCM [facility] Last Admin: 01/16/18 12:33 Dose: 325 mg Flunisolide (Nasarel Nose [place]) 2 spray NASAL BID [facility] Last Admin: 01/16/18 09:13 Dose: 2 spray Fluticasone Propionate (Flonase Nasal [place]) 1 spray NASAL BID [facility] Last Admin: 01/16/18 09:13 Dose: 1 spray Furosemide (Lasix) 40 mg IV BID@1000,1800 [facility] Last Admin: 01/16/18 09:15 Dose: 40 mg Hydralazine HCl (Apresoline Iv) 10 mg IV Q4H PRN PRN PRN Reason: SBP > 160 Insulin Glargine (Lantus (Bkc)) 5 units SC QHS [facility] Last Admin: 01/15/18 21:32 Dose: 5 units Insulin Human Lispro (Humalog Kwikpen (Bkc)) 0 unit SQ [facility]; Protocol Last Admin: 01/16/18 12:33 Dose: 6 units Magnesium Hydroxide (Milk Of Magnesia) 30 ml PO DAILY PRN PRN Reason: Constipation Last Admin: 01/14/18 09:33 Dose: 30 ml Metoprolol Tartrate (Lopressor (Beta [place])) 50 mg PO BID [facility] Last Admin: 01/16/18 09:14 Dose: 50 mg Morphine Sulfate () 1 - 2 mg IV Q4H PRN PRN PRN Reason: PAIN Nitroglycerin (Nitrostat) 0.4 mg SUBLINGUAL Q5M PRN PRN Reason: Angina pain Ondansetron HCl (Zofran) 4 mg IV Q8H PRN PRN PRN Reason: Nausea Last Admin: 01/12/18 20:35 Dose: 4 mg Pantoprazole Sodium (Protonix) 40 mg PO BID [facility] Last Admin: 01/16/18 09:15 Dose: 40 mg Potassium Chloride (K-Dur) [facility] Last Admin: 01/16/18 09:15 Dose: 20 meq Sodium Chloride () 5 - 30 ml IV UD PRN PRN Reason: SALINE FLUSH Last Admin: 01/15/18 18:11 Dose: 10 ml Sodium Chloride ([place] Nasal [place]) 2 spray NASAL TID PRN PRN PRN Reason: NASAL DRYNESS Last Admin: 01/14/18 21:19 Dose: 2 spray Trazodone HCl (Desyrel) 100 mg PO QHS PRN PRN PRN Reason: SLEEP Last Admin: 01/13/18 22:34 Dose: 100 mg Medical Necessity - Tobacco Use Smoking Status: Former smoker Tobacco Use: Cigarettes Assessment/Plan All Active Problems (Last Updated 01/02/18 @ 17:11 by David Montana MD) Diastolic CHF, acute on chronic (Acute) CKD stage 3 secondary to diabetes (Acute) CVA (cerebral vascular accident) (Resolved) CVA (cerebral vascular accident) (Resolved) History of GI bleeding (Resolved) 67 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 1. Acute sinusitis, per history, started on Augmentin, day 5 of 7 days total 2. Acute on chronic hypoxic respiratory failure, on 6L of oxygen, secondary to acute on chronic diastolic CHF, acute on chronic anemia, continue on breathing treatments,wean off oxygen, encourage incentive spirometer, encourage use of BiPAP, will consult pulmonary also 3. Acute on chronic diastolic CHF, on Lasix 40 mg IV twice daily, diuresing well, bicarbonate better with use of BiPAP 4. Acute metabolic alkalosis secondary to contraction alkalosis/chronic COPD retention, off Diamox, bicarbonate is better with use of BiPAP encourage patient to use BiPAP, will continue to monitor BMP 5. Acute on chronic anemia, history of AVMs, chronic anemia, iron deficient, on oral iron, status post 3 units packed RBC, Hemoglobin is stable at 8.4 6. Indeterminate troponin second to demand ischemia, no history of CAD, on beta-jeffery will continue to monitor 7. Aortic stenosis, moderate-severe 8. Severe COPD/severe pulmonary hypertension/chronic respiratory failure, and has been refusing to use her BiPAP, claustrophobic, encouraged her to use BiPAP, pulmonology consulted, recommend continued use of BiPAP 9. Hypertension, stable, on metoprolol, continue to monitor vitals. 10. Type 2 diabetes mellitus, sugars are relatively better controlled, metformin withheld, blood sugars uncontrolled, started on low-dose Lantus 5 units nightly, continue with Accu-Cheks with insulin sliding scale 11. Morbid obesity, BMI 46, diet recommended 12. DVT prophylaxis -SCDs on account of chronic GI bleed 13. CODE STATUS: Full code -discussed again with the patient Code Visit Inpatient E&M: 87507 Subs Hosp L2
--- NOTE | 2018-01-16 14:03 | PN_ITS ---
Patient Problems: Active and Suspected Problems (Last Updated 01/02/18 @ 17:11 by David Montana MD) Diastolic CHF, acute on chronic (Acute) CKD stage 3 secondary to diabetes (Acute) Subjective: Patient was seen and examined. No new complaints. Been using BiPAP intermittently. Feels about the same or slightly better. Denies any chest pain no dizziness. Objective: Physical exam: General: Alert, Oriented x3, Cooperative, - - Mild respiratory distress, on 6 L of oxygen, obese HEENT: Atraumatic, PERRLA, EOMI, Normocephalic Oral: Moist Mucosa Neck: Supple, No JVD, Negative Carotid Bruits Lungs: Normal air movement, Diminished Cardiovascular: Regular rate, Regular Rhythm, Normal S1, Normal S2, Murmur - Holosystolic murmur Abdomen: Bowel Sounds Present, Soft, Non Tender, Non-Distended, No Hepato- splenomegaly Extremities: Edema - Bilateral +2 pitting, nontender, chronic venous stasis Skin: No rashes, No breakdown Musculoskeletal: No Tenderness to Palpation of Joints or Extremities Lymphatic: No Cervical, Supraclavicular, or Inguinal Adenopathy Neurological: Cranial nerves II-XII grossly intact Psych/Mental Status: Normal Affect, Appropriate Vitals/I&O's: Vital Signs Temp Pulse Resp BP Pulse Ox 98.3 F 72 18 111/55 L 95 01/16/18 09:05 01/16/18 11:46 01/16/18 11:08 01/16/18 09:14 01/16/18 09:05 Oxygen Flow Rate (L/min) 6 Oxygen Delivery Method Nasal Cannula Weight: 110.2 kg Body Mass Index (BMI) 45.4 Intake and Output for Last 24 Hours 01/14/18 01/15/18 01/16/18 23:59 23:59 23:59 Intake Total 1892 / 1892 1000 / 1000 530 / 530 Output Total 2099 / 2099 600 / 600 Balance -208 / -208 -1025 / -1025 -70 / -70 Laboratory Results 01/15/18 13:22: POC Glucose 212 H 01/15/18 17:08: POC Glucose 149 H 01/15/18 20:59: POC Glucose 195 H 01/16/18 05:55: WBC 11.3 H, RBC 3.09 L, Hgb 8.4 L, Hct 30.4 L, MCV 98.4, MCH 27.2, MCHC 27.6 L, RDW 16.4 H, RDW Differential 57.7 H, Plt Count 504 H, MPV 9.8, Immature Gran % (Auto) 0.800, Neut % (Auto) 83.2 H, Lymph % (Auto) 8.5 L, [place] % (Auto) 5.4, Eos % (Auto) 1.7, Baso % (Auto) 0.4, Absolute Neuts (auto) 9.4 H, Absolute Lymphs (auto) 0.96, Total Counted Not Reportable, Nucleated RBC % 0.5, Absolute Retic 0.06 01/16/18 05:55: Sodium 138, Potassium 3.7, Chloride 91 L, Carbon Dioxide 43.0 H, Anion Gap 4 L, BUN 45 H, Creatinine 1.28 H, Estim Creat Clear Calc 34.31, Est GFR (MDRD) Af Amer 53 L, Est GFR (MDRD) Non-Af 44 L, BUN/Creatinine Ratio 35.2 H , Glucose 174 H, Calcium 8.9, Phosphorus 5.6 H, Magnesium 2.2 01/16/18 06:47: POC Glucose 183 H 01/16/18 12:30: POC Glucose 242 H Current Medications Acetaminophen (Tylenol) 650 mg PO Q6H PRN PRN PRN Reason: Mild Pain (scale 0-3)/T>100.7 Last Admin: 01/14/18 15:35 Dose: 650 mg Hydrocodone Bitart/Acetaminophen ([place] 5mg-325mg) 1 - 2 tablet PO Q6H PRN PRN PRN Reason: Moderate-severe pain Acetazolamide (Diamox) 250 mg PO BID [facility] Last Admin: 01/16/18 09:14 Dose: 250 mg Albuterol Sulfate (Ventolin Aerosols) 2.5 mg INHALATION Q2H PRN PRN PRN Reason: Shortness of breath, wheezing Last Admin: 01/12/18 20:36 Dose: 2.5 mg Albuterol/Ipratropium (Duoneb) 3 ml INHALATION Q4H.RT [facility] Last Admin: 01/16/18 11:06 Dose: 3 ml Amoxicillin/Clavulanate [facility] ([facility] Last Admin: 01/16/18 09:14 Dose: 875 mg Atorvastatin Calcium (Lipitor) 10 mg PO QHS [facility] Last Admin: 01/15/18 21:27 Dose: 10 mg Escitalopram Oxalate (Lexapro) 10 mg PO DAILY [facility] Last Admin: 01/16/18 09:14 Dose: 10 mg Ferrous Sulfate (Ferrous Sulfate) 325 mg PO TIDCM [facility] Last Admin: 01/16/18 12:33 Dose: 325 mg Flunisolide (Nasarel Nose [place]) 2 spray NASAL BID [facility] Last Admin: 01/16/18 09:13 Dose: 2 spray Fluticasone Propionate (Flonase Nasal [place]) 1 spray NASAL BID [facility] Last Admin: 01/16/18 09:13 Dose: 1 spray Furosemide (Lasix) 40 mg IV BID@1000,1800 [facility] Last Admin: 01/16/18 09:15 Dose: 40 mg Hydralazine HCl (Apresoline Iv) 10 mg IV Q4H PRN PRN PRN Reason: SBP > 160 Insulin Glargine (Lantus (Bkc)) 5 units SC QHS [facility] Last Admin: 01/15/18 21:32 Dose: 5 units Insulin Human Lispro (Humalog Kwikpen (Bkc)) 0 unit SQ [facility]; Protocol Last Admin: 01/16/18 12:33 Dose: 6 units Magnesium Hydroxide (Milk Of Magnesia) 30 ml PO DAILY PRN PRN Reason: Constipation Last Admin: 01/14/18 09:33 Dose: 30 ml Metoprolol Tartrate (Lopressor (Beta [place])) 50 mg PO BID [facility] Last Admin: 01/16/18 09:14 Dose: 50 mg Morphine Sulfate () 1 - 2 mg IV Q4H PRN PRN PRN Reason: PAIN Nitroglycerin (Nitrostat) 0.4 mg SUBLINGUAL Q5M PRN PRN Reason: Angina pain Ondansetron HCl (Zofran) 4 mg IV Q8H PRN PRN PRN Reason: Nausea Last Admin: 01/12/18 20:35 Dose: 4 mg Pantoprazole Sodium (Protonix) 40 mg PO BID [facility] Last Admin: 01/16/18 09:15 Dose: 40 mg Potassium [facility]loride (K[facility]Dur) [facility] Last Admin: 01/16/18 09:15 Dose: 20 meq Sodium Chloride () 5 - 30 ml IV UD PRN PRN Reason: SALINE FLUSH Last Admin: 01/15/18 18:11 Dose: 10 ml Sodium Chloride ([place] Nasal [place]) 2 spray NASAL TID PRN PRN PRN Reason: NASAL DRYNESS Last Admin: 01/14/18 21:19 Dose: 2 spray Trazodone HCl (Desyrel) 100 mg PO QHS PRN PRN PRN Reason: SLEEP Last Admin: 01/13/18 22:34 Dose: 100 mg Medical Necessity - Tobacco Use Smoking Status: Former smoker Tobacco Use: Cigarettes Assessment/Plan All Active Problems (Last Updated 01/02/18 @ 17:11 by David Montana MD) Diastolic CHF, acute on chronic (Acute) CKD stage 3 secondary to diabetes (Acute) CVA (cerebral vascular accident) (Resolved) CVA (cerebral vascular accident) (Resolved) History of GI bleeding (Resolved) 67 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 1. Acute sinusitis, per history, started on Augmentin, day 5 of 7 days total 2. Acute on chronic hypoxic respiratory failure, on 6L of oxygen, secondary to acute on chronic diastolic CHF, acute on chronic anemia, continue on breathing treatments,wean off oxygen, encourage incentive spirometer, encourage use of BiPAP, will consult pulmonary also 3. Acute on chronic diastolic CHF, on Lasix 40 mg IV twice daily, diuresing well, bicarbonate better with use of BiPAP 4. Acute metabolic alkalosis secondary to contraction alkalosis/chronic COPD retention, off Diamox, bicarbonate is better with use of BiPAP encourage patient to use BiPAP, will continue to monitor BMP 5. Acute on chronic anemia, history of AVMs, chronic anemia, iron deficient, on oral iron, status post 3 units packed RBC, Hemoglobin is stable at 8.4 6. Indeterminate troponin second to demand ischemia, no history of CAD, on beta- jeffery will continue to monitor 7. Aortic stenosis, moderate-severe 8. Severe COPD/severe pulmonary hypertension/chronic respiratory failure, and has been refusing to use her BiPAP, claustrophobic, encouraged her to use BiPAP, pulmonology consulted, recommend continued use of BiPAP 9. Hypertension, stable, on metoprolol, continue to monitor vitals. 10. Type 2 diabetes mellitus, sugars are relatively better controlled, metformin withheld, blood sugars uncontrolled, started on low-dose Lantus 5 units nightly, continue with Accu-Cheks with insulin sliding scale 11. Morbid obesity, BMI 46, diet recommended 12. DVT prophylaxis -SCDs on account of chronic GI bleed 13. CODE STATUS: Full code -discussed again with the patient Code Visit Inpatient E&M: 10719 Subs Hosp L2
[2018-01-16 16:51] LABS: Bedside Glucose 207 mg/dL (70-110)
--- NOTE | 2018-01-16 18:33 | PCM.PN.CARD ---
Subjectve: The patient continues with her chronic shortness of breath/dyspnea, peripheral pitting edema, and fatigue/sleepiness. She continues on medical management. She continues with O2 therapy and intermittent BiPAP therapy-as much as she will allow. She is pending transfer to [facility] for further cardiopulmonary evaluation. Objective: Vital Signs Temp Pulse Resp BP Pulse Ox 97.3 F L 78 18 116/56 L 91 01/16/18 16:31 01/16/18 16:31 01/16/18 16:31 01/16/18 16:31 01/16/18 16:31 Oxygen Flow Rate (L/min) 6 Oxygen Delivery Method Nasal Cannula Weight: 242 lb 15.19 oz Body Mass Index (BMI) 45.4 Intake and Output for Last 24 Hours 01/14/18 01/15/18 01/16/18 23:59 23:59 23:59 Intake Total 1892 / 1892 1000 / 1000 820 / 820 Output Total 2099 / 2099 2024 / 2024 1200 / 1200 Balance -208 / -208 -1025 / -1025 -380 / -380 General: Awake, Alert, Oriented x 3, Obese HEENT: Atraumatic, Normocephalic, PERRL, EOMI, Sclera Non Icteric Oral: Moist Mucosa Neck: Supple, Good ROM, No JVD Lungs: - - Diminished breath sounds bilaterally Cardiovascular: Regular Rhythm, Normal S1, Normal S2 Abdomen: Bowel Sounds Present, Soft, Non Tender, Obese Extremities: Severe RLE Edema, Severe LLE Edema Neurological: No Focal Motor or Sensory Deficit Psych/Mental Status: Appropriate 01/16/18 05:55: WBC 11.3 H, RBC 3.09 L, Hgb 8.4 L, Hct 30.4 L, MCV 98.4, MCH 27.2, MCHC 27.6 L, RDW 16.4 H, RDW Differential 57.7 H, Plt Count 504 H, MPV 9.8, Immature Gran % (Auto) 0.800, Neut % (Auto) 83.2 H, Lymph % (Auto) 8.5 L, [place] % (Auto) 5.4, Eos % (Auto) 1.7, Baso % (Auto) 0.4, Absolute Neuts (auto) 9.4 H, Total Counted Not Reportable, Nucleated RBC % 0.5 01/16/18 05:55: Sodium 138, Potassium 3.7, Chloride 91 L, Carbon Dioxide 43.0 H, Anion Gap 4 L, BUN 45 H, Creatinine 1.28 H, Est GFR (MDRD) Af Amer 53 L, Est GFR (MDRD) Non-Af 44 L, BUN/Creatinine Ratio 35.2 H, Glucose 174 H, Calcium 8.9, Phosphorus 5.6 H, Magnesium 2.2 Rhythm: Sinus rhythm Medical Necessity - Tobacco Use Smoking Status: Former smoker Tobacco Use: Cigarettes Assessment/Plan 1. Acute on chronic diastolic mediated CHF At the present time patient presents with findings compatible with acute on chronic diastolic mediated CHF. The patient has resumed IV diuretic therapy. She continues on Diamox therapy. She will continue oxygen support. She is attempting BiPAP therapy. However, she has not been able to wear BiPAP all the time. She is being followed by pulmonology and nephrology. 2. Aortic valve stenosis She does have a history of aortic valve stenosis. There is somewhat of a discrepancy between her transthoracic echocardiogram and her diagnostic cardiac catheterization. He has been evaluated at the [facility] Main [place] for her aortic valve stenosis for consideration for TAVR thus far they have not proceeded with this procedure. A follow-up transthoracic echocardiogram was performed. Her aortic valve, is not well visualized, however, spectral Doppler suggest moderately severe aortic valve stenosis. 3. Pulmonary hypertension This may be secondary to not only her cardiovascular disease but her pulmonary disease with her COPD, etc. This can lead to cor pulmonale and right heart failure. He will need continued pulmonary support and medical therapy which does include her diuretic therapy. However, there is concern with respect to her diabetic therapy and her subsequent acid-base status. Thus she is being followed. 4. Hyperlipidemia She will continue lipid-lowering therapy as deemed appropriate. 5. Hypertension She will continue antihypertensive therapy with adjustment as needed. 6. Diabetes mellitus She will continue under the care of internal medicine. 7. COPD She does have a history of COPD. She will need continue pulmonary evaluation care. She is on O2 therapy. 8. Anemia Her hemoglobin has improved status post her PRBCs. It will need to be followed as if it declines in the future she may need additional PRBCs. Overall she will continue to new medical therapy. Again she is pending transfer to [facility] for further tertiary care center cardiopulmonary evaluation. This note was generated with [employer] software. It may contain incorrect words, spelling, and punctuation that were not noted in checking the note before signing.
--- NOTE | 2018-01-16 18:37 | PN.CARD_ITS ---
Subjectve: The patient continues with her chronic shortness of breath/dyspnea, peripheral pitting edema, and fatigue/sleepiness. She continues on medical management. She continues with O2 therapy and intermittent BiPAP therapy-as much as she will allow. She is pending transfer to [facility] for further cardiopulmonary evaluation. Objective: Vital Signs Temp Pulse Resp BP Pulse Ox 97.3 F L 78 18 116/56 L 91 01/16/18 16:31 01/16/18 16:31 01/16/18 16:31 01/16/18 16:31 01/16/18 16:31 Oxygen Flow Rate (L/min) 6 Oxygen Delivery Method Nasal Cannula Weight: 242 lb 15.19 oz Body Mass Index (BMI) 45.4 Intake and Output for Last 24 Hours 01/14/18 01/15/18 01/16/18 23:59 23:59 23:59 Intake Total 1892 / 1892 1000 / 1000 820 / 820 Output Total 2099 / 2099 2024 / 2024 1200 / 1200 Balance -208 / -208 -1025 / -1025 -380 / -380 General: Awake, Alert, Oriented x 3, Obese HEENT: Atraumatic, Normocephalic, PERRL, EOMI, Sclera Non Icteric Oral: Moist Mucosa Neck: Supple, Good ROM, No JVD Lungs: - - Diminished breath sounds bilaterally Cardiovascular: Regular Rhythm, Normal S1, Normal S2 Abdomen: Bowel Sounds Present, Soft, Non Tender, Obese Extremities: Severe RLE Edema, Severe LLE Edema Neurological: No Focal Motor or Sensory Deficit Psych/Mental Status: Appropriate 01/16/18 05:55: WBC 11.3 H, RBC 3.09 L, Hgb 8.4 L, Hct 30.4 L, MCV 98.4, MCH 27.2, MCHC 27.6 L, RDW 16.4 H, RDW Differential 57.7 H, Plt Count 504 H, MPV 9.8, Immature Gran % (Auto) 0.800, Neut % (Auto) 83.2 H, Lymph % (Auto) 8.5 L, [place] % (Auto) 5.4, Eos % (Auto) 1.7, Baso % (Auto) 0.4, Absolute Neuts (auto) 9.4 H, Total Counted Not Reportable, Nucleated RBC % 0.5 01/16/18 05:55: Sodium 138, Potassium 3.7, Chloride 91 L, Carbon Dioxide 43.0 H, Anion Gap 4 L, BUN 45 H, Creatinine 1.28 H, Est GFR (MDRD) Af Amer 53 L, Est GFR (MDRD) Non-Af 44 L, BUN/Creatinine Ratio 35.2 H, Glucose 174 H, Calcium 8.9, Phosphorus 5.6 H, Magnesium 2.2 Rhythm: Sinus rhythm Medical Necessity - Tobacco Use Smoking Status: Former smoker Tobacco Use: Cigarettes Assessment/Plan 1. Acute on chronic diastolic mediated CHF At the present time patient presents with findings compatible with acute on chronic diastolic mediated CHF. The patient has resumed IV diuretic therapy. She continues on Diamox therapy. She will continue oxygen support. She is attempting BiPAP therapy. However, she has not been able to wear BiPAP all the time. She is being followed by pulmonology and nephrology. 2. Aortic valve stenosis She does have a history of aortic valve stenosis. There is somewhat of a discrepancy between her transthoracic echocardiogram and her diagnostic cardiac catheterization. He has been evaluated at the [facility] [place] for her aortic valve stenosis for consideration for TAVR thus far they have not proceeded with this procedure. A follow-up transthoracic echocardiogram was performed. Her aortic valve, is not well visualized, however, spectral Doppler suggest moderately severe aortic valve stenosis. 3. Pulmonary hypertension This may be secondary to not only her cardiovascular disease but her pulmonary disease with her COPD, etc. This can lead to cor pulmonale and right heart failure. He will need continued pulmonary support and medical therapy which does include her diuretic therapy. However, there is concern with respect to her diabetic therapy and her subsequent acid-base status. Thus she is being followed. 4. Hyperlipidemia She will continue lipid-lowering therapy as deemed appropriate. 5. Hypertension She will continue antihypertensive therapy with adjustment as needed. 6. Diabetes mellitus She will continue under the care of internal medicine. 7. COPD She does have a history of COPD. She will need continue pulmonary evaluation care. She is on O2 therapy. 8. Anemia Her hemoglobin has improved status post her PRBCs. It will need to be followed as if it declines in the future she may need additional PRBCs. Overall she will continue to new medical therapy. Again she is pending transfer to [facility] for further tertiary care center cardiopulmonary evaluation. This note was generated with [employer] software. It may contain incorrect words, spelling, and punctuation that were not noted in checking the note before signing.
[2018-01-16] MEDS: Sodium Chloride 0.65% 1 SPRAY SPRAY.BTL 2 SPRAY NASAL (22:57)
[2018-01-16] MEDS: Atorvastatin Calcium 10 MG Tablet PO (23:00)
[2018-01-16 23:16] LABS: Bedside Glucose 306 mg/dL (70-110)
[2018-01-16] MEDS: Ondansetron 4 MG/2 ML Vial IV (23:59)
[2018-01-17] VITALS (23 sets, daily range): BP systolic 107–126; BP diastolic 47–57; PULSE 70–88; RESP 12–18; TEMP 36.6–36.9; O2SAT 91–98
[2018-01-17] MEDS: 0.9% NaCl Peripheral Flush Adult/Peds IV
[2018-01-17] MEDS: Ipratropium/Albuterol Sulfate 3 ML AMPUL.NEB INHALATION ×6 (02:27→22:41)
[2018-01-17 07:01] LABS: Bedside Glucose 182 mg/dL (70-110)
--- NOTE | 2018-01-17 07:33 | PCM.PROGNOTE ---
Patient Problems: Active and Suspected Problems (Last Updated 01/02/18 @ 17:11 by David Montana MD) Diastolic CHF, acute on chronic (Acute) CKD stage 3 secondary to diabetes (Acute) Subjective: Patient did okay overnight. Patient did use her BiPAP for some of the evening. Patient reports subjective improvement in dyspnea this morning, but states that she did not ambulate at all yesterday. Patient denies any current chest pain, diaphoresis, nausea or vomiting. - Physical Exam General: Alert, Oriented x3, Cooperative, No apparent distress, - - Morbidly obese. RASS -1 HEENT: Atraumatic, PERRLA, EOMI, Normocephalic, - - No scleral icterus or injection noted. Oral: Moist Mucosa, No Gingival or Mucosal Lesions/ Ulcerations Neck: Supple, No Nodes, Trachea Midline, JVD, Right Lungs: No rhonchi, No wheeze, No rales, Diminished, - - Symmetric expansion. No dullness to percussion. Cardiovascular: Regular rate, Regular Rhythm, Normal S1, Normal S2, No murmurs, No rub noted, No Gallop Abdomen: Bowel Sounds Present, Soft, Non Tender, Non-Distended, Obese Extremities: No cyanosis, Capillary Refill Less than 3 Seconds, Clubbing, Edema Skin: No rashes, No breakdown Musculoskeletal: No Tenderness to Palpation of Joints or Extremities Lymphatic: No Cervical, Supraclavicular, or Inguinal Adenopathy Neurological: Cranial nerves II-XII grossly intact, Neuro grossly intact, Motor Exam 5/5 strength throughout Psych/Mental Status: Alert and oriented to time, place, person, mood and affect Vital Signs Temp Pulse Resp BP Pulse Ox 36.8 C 75 18 123/47 H 97 01/17/18 04:51 01/17/18 04:51 01/17/18 04:51 01/17/18 04:51 01/17/18 04:51 Oxygen Flow Rate (L/min) 6 Oxygen Delivery Method Nasal Cannula Weight: 110.2 kg Body Mass Index (BMI) 45.4 Intake and Output for Last 24 Hours 01/15/18 01/16/18 01/17/18 23:59 23:59 23:59 Intake Total 1000 / 1000 1060 / 1060 360 / 360 Output Total 2024 1800 / 1800 300 / 300 Balance -1025 / -1025 -740 / -740 60 / 60 POC Glucose 01/17/18 01/16/18 01/16/18 06:41 22:48 16:35 POC Glucose 182 H 306 H 207 H 01/16/18 12:30 POC Glucose 242 H Medical Necessity - Tobacco Use Smoking Status: Former smoker Tobacco Use: Cigarettes Assessment/Plan All Active Problems (Last Updated 01/02/18 @ 17:11 by David Montana MD) Diastolic CHF, acute on chronic (Acute) CKD stage 3 secondary to diabetes (Acute) CVA (cerebral vascular accident) (Resolved) CVA (cerebral vascular accident) (Resolved) History of GI bleeding (Resolved) RECOMMENDATIONS: 1. Continue to encourage nasal CPAP with chinstrap 2. Await transfer to [facility] for possible TAVR 3. BiPAP with sleep and as needed 4. Wean oxygen as tolerated to keep saturations 90-94% 5. Increase activity as tolerated 6. Continue diuresis IMPRESSIONS: 1. Acute on chronic combined respiratory failure secondary to acute on chronic diastolic congestive heart failure Patient has been receiving significant diuresis over the course of the hospitalization. Patient has been diuresed over 15 L over the course of the hospitalization without accounting for incontinent episodes. Patient continues to have significant hypoxemia. I agree with transfer to [facility] for evaluation for possible valve replacement. Still awaiting bed placement. Patient encouraged to continue with BiPAP therapy with sleep. Stressed to the patient the importance of BiPAP therapy as a bridge moving forward. Patient likely has an element of TRI, but this is compounded by elevated pulmonary artery pressures from patient's aortic stenosis. 2. Acute on chronic blood loss anemia Patient does have a history of GI AVMs in the past. Patient's hemoglobin is currently stable and acceptable. Transfuse to keep hemoglobin greater than 8 given cardiac condition. Patient is on a PPI at appropriate dosing. Doubt need for emergent endoscopy for evaluation. Will repeat blood counts tomorrow. 3. Aortic stenosis Exact morphology is unclear at this time. Some testing suggest severe disease and others suggest that intervention is not required. Patient has had multiple admissions over the last year secondary to fluid overload requiring diuresis of 10-12 L of fluid. Patient is approaching her baseline fluid status. Patient would benefit from outpatient evaluation to see if surgical intervention would be appropriate. If patient does not qualify for valve replacement, long-term prognosis is extremely guarded. 4. Morbid obesity/type 2 diabetes mellitus/hypertension/advanced age/acute sinusitis Complicates care, management, recovery and prognosis. Likely okay to continue with baseline medications. Patient with variable p.o. intake. Would avoid metformin given patient's renal function and active diuresis previously. Patient is on antibiotics for reported acute sinusitis. Code Visit Inpatient E&M: [id number] [facility] Hosp L3
--- NOTE | 2018-01-17 07:39 | PN_ITS ---
Patient Problems: Active and Suspected Problems (Last Updated 01/02/18 @ 17:11 by David Montana MD) Diastolic CHF, acute on chronic (Acute) CKD stage 3 secondary to diabetes (Acute) Subjective: Patient did okay overnight. Patient did use her BiPAP for some of the evening. Patient reports subjective improvement in dyspnea this morning, but states that she did not ambulate at all yesterday. Patient denies any current chest pain, diaphoresis, nausea or vomiting. - Physical Exam General: Alert, Oriented x3, Cooperative, No apparent distress, - - Morbidly obese. RASS -1 HEENT: Atraumatic, PERRLA, EOMI, Normocephalic, - - No scleral icterus or injection noted. Oral: Moist Mucosa, No Gingival or Mucosal Lesions/ Ulcerations Neck: Supple, No Nodes, Trachea Midline, JVD, Right Lungs: No rhonchi, No wheeze, No rales, Diminished, - - Symmetric expansion. No dullness to percussion. Cardiovascular: Regular rate, Regular Rhythm, Normal S1, Normal S2, No murmurs, No rub noted, No Gallop Abdomen: Bowel Sounds Present, Soft, Non Tender, Non-Distended, Obese Extremities: No cyanosis, Capillary Refill Less than 3 Seconds, Clubbing, Edema Skin: No rashes, No breakdown Musculoskeletal: No Tenderness to Palpation of Joints or Extremities Lymphatic: No Cervical, Supraclavicular, or Inguinal Adenopathy Neurological: Cranial nerves II-XII grossly intact, Neuro grossly intact, Motor Exam 5/5 strength throughout Psych/Mental Status: Alert and oriented to time, place, person, mood and affect Vital Signs Temp Pulse Resp BP Pulse Ox 36.8 C 75 18 123/47 H 97 01/17/18 04:51 01/17/18 04:51 01/17/18 04:51 01/17/18 04:51 01/17/18 04:51 Oxygen Flow Rate (L/min) 6 Oxygen Delivery Method Nasal Cannula Weight: 110.2 kg Body Mass Index (BMI) 45.4 Intake and Output for Last 24 Hours 01/15/18 01/16/18 01/17/18 23:59 23:59 23:59 Intake Total 1000 / 1000 1060 / 1060 360 / 360 Output Total 2024 1800 / 1800 300 / 300 Balance -1025 / -1025 -740 / -740 60 / 60 POC Glucose 01/17/18 01/16/18 01/16/18 06:41 22:48 16:35 POC Glucose 182 H 306 H 207 H 01/16/18 12:30 POC Glucose 242 H Medical Necessity - Tobacco Use Smoking Status: Former smoker Tobacco Use: Cigarettes Assessment/Plan All Active Problems (Last Updated 01/02/18 @ 17:11 by David Montana MD) Diastolic CHF, acute on chronic (Acute) CKD stage 3 secondary to diabetes (Acute) CVA (cerebral vascular accident) (Resolved) CVA (cerebral vascular accident) (Resolved) History of GI bleeding (Resolved) RECOMMENDATIONS: 1. Continue to encourage nasal CPAP with chinstrap 2. Await transfer to [facility] for possible TAVR 3. BiPAP with sleep and as needed 4. Wean oxygen as tolerated to keep saturations 90-94% 5. Increase activity as tolerated 6. Continue diuresis IMPRESSIONS: 1. Acute on chronic combined respiratory failure secondary to acute on chronic diastolic congestive heart failure Patient has been receiving significant diuresis over the course of the hospitalization. Patient has been diuresed over 15 L over the course of the hospitalization without accounting for incontinent episodes. Patient continues to have significant hypoxemia. I agree with transfer to [facility] for evaluation for possible valve replacement. Still awaiting bed placement. Patient encouraged to continue with BiPAP therapy with sleep. Stressed to the patient the importance of BiPAP therapy as a bridge moving forward. Patient likely has an element of TRI, but this is compounded by elevated pulmonary artery pressures from patient's aortic stenosis. 2. Acute on chronic blood loss anemia Patient does have a history of GI AVMs in the past. Patient's hemoglobin is currently stable and acceptable. Transfuse to keep hemoglobin greater than 8 given cardiac condition. Patient is on a PPI at appropriate dosing. Doubt need for emergent endoscopy for evaluation. Will repeat blood counts tomorrow. 3. Aortic stenosis Exact morphology is unclear at this time. Some testing suggest severe d isease and others suggest that intervention is not required. Patient has had multiple admissions over the last year secondary to fluid overload requiring diuresis of 10-12 L of fluid. Patient is approaching her baseline fluid status. Patient would benefit from outpatient evaluation to see if surgical intervention would be appropriate. If patient does not qualify for valve replacement, long-term prognosis is extremely guarded. 4. Morbid obesity/type 2 diabetes mellitus/hypertension/advanced age/acute sinusitis Complicates care, management, recovery and prognosis. Likely okay to continue with baseline medications. Patient with variable p.o. intake. Would avoid metformin given patient's renal function and active diuresis previously. Patient is on antibiotics for reported acute sinusitis. Code Visit Inpatient E&M: 17402 [facility] Hosp L3
[2018-01-17] MEDS: Pantoprazole Sodium 40 MG Tablet PO ×2 (09:43→21:16)
[2018-01-17] MEDS: Amox/Clavulanate 875 MG Tablet PO ×2 (09:43→17:34)
[2018-01-17] MEDS: Escitalopram Oxalate 10 MG Tablet PO (09:43)
[2018-01-17] MEDS: Metoprolol Tartrate 50 MG Tablet PO ×2 (09:43→21:17)
[2018-01-17] MEDS: AcetaZOLAMIDE 250 MG Tablet PO ×2 (09:44→21:16)
[2018-01-17] MEDS: Furosemide 40 MG/4 ML Vial IV ×2 (09:44→17:33)
[2018-01-17] MEDS: Ferrous Sulfate 325 MG Tablet PO ×3 (09:44→17:33)
[2018-01-17] MEDS: Insulin Lispro 100 UNIT/ML INSULN.PEN SQ ×4 (09:44→21:18)
[2018-01-17] MEDS: Fluticasone 0.05% 1 SPRAY NASAL.SRY NASAL ×2 (09:45→21:15)
[2018-01-17] MEDS: Sodium Chloride 0.65% 1 SPRAY SPRAY.BTL 2 SPRAY NASAL ×2 (09:50→21:14)
--- NOTE | 2018-01-17 09:59 | PCM.PN.CARD ---
Subjectve: The patient still appears to be somnolent on and off. She does awaken and respond appropriately to questions. She continues to be chronically short of breath and have continued chronic lower extremity edema. Objective: Vital Signs Temp Pulse Resp BP Pulse Ox 98.2 F 70 18 123/47 H 98 01/17/18 04:51 01/17/18 09:43 01/17/18 07:27 01/17/18 04:51 01/17/18 07:27 Oxygen Flow Rate (L/min) 6 Oxygen Delivery Method Nasal Cannula Weight: 245 lb Body Mass Index (BMI) 45.4 Intake and Output for Last 24 Hours 01/15/18 01/16/18 01/17/18 23:59 23:59 23:59 Intake Total 1000 / 1000 1060 / 1060 360 / 360 Output Total 2024 / 2024 1800 / 1800 300 / 300 Balance -1025 / -1025 -740 / -740 60 / 60 General: Awake, Alert, Oriented x 3, No Acute Distress, Obese HEENT: Atraumatic, Normocephalic, PERRL, EOMI, Sclera Non Icteric Oral: Moist Mucosa Neck: Supple, Good ROM, No JVD Lungs: Diminished Param Bases Cardiovascular: Regular Rhythm, Normal S1, Normal S2 Abdomen: Bowel Sounds Present, Soft, Non Tender Extremities: Severe RLE Edema, Severe LLE Edema Rhythm: Sinus rhythm Medical Necessity - Tobacco Use Smoking Status: Former smoker Tobacco Use: Cigarettes Assessment/Plan 1. Acute on chronic diastolic mediated CHF At the present time patient presents with findings compatible with acute on chronic diastolic mediated CHF. The patient has resumed IV diuretic therapy. She continues on Diamox therapy. Her last BMP noted some improvement in her CO2 level. She will continue oxygen support. She is attempting BiPAP therapy. However, she has not been able to wear BiPAP all the time. She was encouraged to continue to wear this as much as possible. She is being followed by pulmonology and nephrology. 2. Aortic valve stenosis She does have a history of aortic valve stenosis. There is somewhat of a discrepancy between her transthoracic echocardiogram and her diagnostic cardiac catheterization. He has been evaluated at the [facility] Main campus for her aortic valve stenosis for consideration for TAVR thus far they have not proceeded with this procedure. A follow-up transthoracic echocardiogram was performed. Her aortic valve, is not well visualized, however, spectral Doppler suggest moderately severe aortic valve stenosis. 3. Pulmonary hypertension This may be secondary to not only her cardiovascular disease but her pulmonary disease with her COPD, etc. This can lead to cor pulmonale and right heart failure. He will need continued pulmonary support and medical therapy which does include her diuretic therapy. However, there is concern with respect to her diabetic therapy and her subsequent acid-base status. Thus she is being followed. 4. Hyperlipidemia She will continue lipid-lowering therapy as deemed appropriate. 5. Hypertension She will continue antihypertensive therapy with adjustment as needed. 6. Diabetes mellitus She will continue under the care of internal medicine. 7. COPD She does have a history of COPD. She will need continue pulmonary evaluation care. She is on O2 therapy. Again she has been encouraged to use her BiPAP therapy as much as possible per the directions of pulmonology. 8. Anemia Her hemoglobin has improved status post her PRBCs. It will need to be followed as if it declines in the future she may need additional PRBCs. Overall she will continue to new medical therapy. Again she is pending transfer to [facility] for further tertiary care center cardiopulmonary evaluation. This note was generated with [email or web address] dictation software. It may contain incorrect words, spelling, and punctuation that were not noted in checking the note before signing.
--- NOTE | 2018-01-17 10:02 | PN.CARD_ITS ---
Subjectve: The patient still appears to be somnolent on and off. She does awaken and respond appropriately to questions. She continues to be chronically short of breath and have continued chronic lower extremity edema. Objective: Vital Signs Temp Pulse Resp BP Pulse Ox 98.2 F 70 18 123/47 H 98 01/17/18 04:51 01/17/18 09:43 01/17/18 07:27 01/17/18 04:51 01/17/18 07:27 Oxygen Flow Rate (L/min) 6 Oxygen Delivery Method Nasal Cannula Weight: 245 lb Body Mass Index (BMI) 45.4 Intake and Output for Last 24 Hours 01/15/18 01/16/18 01/17/18 23:59 23:59 23:59 Intake Total 1000 / 1000 1060 / 1060 360 / 360 Output Total 2024 / 2024 1800 / 1800 300 / 300 Balance -1025 / -1025 -740 / -740 60 / 60 General: Awake, Alert, Oriented x 3, No Acute Distress, Obese HEENT: Atraumatic, Normocephalic, PERRL, EOMI, Sclera Non Icteric Oral: Moist Mucosa Neck: Supple, Good ROM, No JVD Lungs: Diminished Param Bases Cardiovascular: Regular Rhythm, Normal S1, Normal S2 Abdomen: Bowel Sounds Present, Soft, Non Tender Extremities: Severe RLE Edema, Severe LLE Edema Rhythm: Sinus rhythm Medical Necessity - Tobacco Use Smoking Status: Former smoker Tobacco Use: Cigarettes Assessment/Plan 1. Acute on chronic diastolic mediated CHF At the present time patient presents with findings compatible with acute on chronic diastolic mediated CHF. The patient has resumed IV diuretic therapy. She continues on Diamox therapy. Her last BMP noted some improvement in her CO2 level. She will continue oxygen support. She is attempting BiPAP therapy. However, she has not been able to wear BiPAP all the time. She was encouraged to continue to wear this as much as possible. She is being followed by pulmonology and nephrology. 2. Aortic valve stenosis She does have a history of aortic valve stenosis. There is somewhat of a discrepancy between her transthoracic echocardiogram and her diagnostic cardiac catheterization. He has been evaluated at the [facility] Main campus for her aortic valve stenosis for consideration for TAVR thus far they have not proceeded with this procedure. A follow-up transthoracic echocardiogram was performed. Her aortic valve, is not well visualized, however, spectral Doppler suggest moderately severe aortic valve stenosis. 3. Pulmonary hypertension This may be secondary to not only her cardiovascular disease but her pulmonary disease with her COPD, etc. This can lead to cor pulmonale and right heart failure. He will need continued pulmonary support and medical therapy which does include her diuretic therapy. However, there is concern with respect to her diabetic therapy and her subsequent acid-base status. Thus she is being followed. 4. Hyperlipidemia She will continue lipid-lowering therapy as deemed appropriate. 5. Hypertension She will continue antihypertensive therapy with adjustment as needed. 6. Diabetes mellitus She will continue under the care of internal medicine. 7. COPD She does have a history of COPD. She will need continue pulmonary evaluation care. She is on O2 therapy. Again she has been encouraged to use her BiPAP therapy as much as possible per the directions of pulmonology. 8. Anemia Her hemoglobin has improved status post her PRBCs. It will need to be followed as if it declines in the future she may need additional PRBCs. Overall she will continue to new medical therapy. Again she is pending transfer to [facility] for further tertiary care center cardiopulmonary evaluation. This note was generated with [facility] dictation software. It may contain incorrect words, spelling, and punctuation that were not noted in checking the note before signing.
[2018-01-17 12:05] LABS: Bedside Glucose 243 mg/dL (70-110)
--- NOTE | 2018-01-17 16:07 | PCM.PN.REN ---
Patient Problems: Active and Suspected Problems (Last Updated 01/02/18 @ 17:11 by David Montana MD) Diastolic CHF, acute on chronic (Acute) CKD stage 3 secondary to diabetes (Acute) Subjective: Pt is going okay. Still get confused on and off Breathing is stable. Trying to use BiPAP more No CP. No nausea No vomiting - Physical Exam General: Alert, Oriented x3 HEENT: Atraumatic Oral: Moist Mucosa Neck: Supple, No JVD Lungs: Diminished Cardiovascular: Regular rate, Regular Rhythm, Normal S1, Normal S2 Abdomen: Bowel Sounds Present, Soft, Non Tender Extremities: No clubbing, Edema - +2 edema of LE Lymphatic: No Cervical, Supraclavicular, or Inguinal Adenopathy Neurological: Cranial nerves II-XII grossly intact, Neuro grossly intact Psych/Mental Status: Appropriate Vital Signs Temp Pulse Resp BP Pulse Ox 97.8 F 77 18 107/53 L 91 01/17/18 10:35 01/17/18 15:37 01/17/18 14:53 01/17/18 10:35 01/17/18 11:37 Oxygen Flow Rate (L/min) 5 Oxygen Delivery Method Nasal Cannula Weight: 111.13 kg Body Mass Index (BMI) 45.4 Intake and Output for Last 24 Hours 01/15/18 01/16/18 01/17/18 23:59 23:59 23:59 Intake Total 1000 / 1000 1060 / 1060 860 / 860 Output Total 2024 / 2024 1800 / 1800 650 / 650 Balance -1025 / -1025 -740 / -740 210 / 210 POC Glucose 01/17/18 01/17/18 01/16/18 11:59 06:41 22:48 POC Glucose 243 H 182 H 306 H 01/16/18 16:35 POC Glucose 207 H Medical Necessity - Tobacco Use Smoking Status: Former smoker Tobacco Use: Cigarettes Assessment/Plan All Active Problems (Last Updated 01/02/18 @ 17:11 by David Montana MD) Diastolic CHF, acute on chronic (Acute) CKD stage 3 secondary to diabetes (Acute) CVA (cerebral vascular accident) (Resolved) CVA (cerebral vascular accident) (Resolved) History of GI bleeding (Resolved) TANJA. She has normal creatinine at baseline. Acute kidney injury is most probably from over diuresing with resultant decrease effective volume. Creatinine improved with holding diuretics ( lasix and metolazone). Pt was kept on Diamox for metabolic alkalosis. Pt was then re started on lasix 40 g IV BID on 01/14 for lungs crackles Cr seems stable at 1.2 with current diuretics dose ( lasix and Diamox) as pee BMP on 01/16. no BMP today I will continue the same dose of diuretics for now Check BMP in am Avoid ACEI/ARB No need for renal replacement therapy. Will continue to monitor kidney function closely with diuresis Metabolic alkalosis. Patient most has respiratory acidosis with compensatory metabolic alkalosis.Last HC03 trend >45 to 42 continue diamox Check bicarb in the morning. CHF with pulmonary HTN and ontinue lasix 40 mg IV BID. continue Diamox 250 mg BID Continue daily weight. Cardiology service is following Pt will be transfer to when be available Renal team will continue to follow
--- NOTE | 2018-01-17 16:44 | PCM.PN.HOSP ---
Patient Problems: Active and Suspected Problems (Last Updated 01/02/18 @ 17:11 by David Montana MD) Diastolic CHF, acute on chronic (Acute) CKD stage 3 secondary to diabetes (Acute) Subjective: Patient was seen and examined. Denies any new complains. Waiting on [facility] transfer line. Been using Bipap intermittently. Objective: Physical exam: General: Alert, Oriented x3, Cooperative, - - Mild respiratory distress, on 6 L of oxygen, obese HEENT: Atraumatic, PERRLA, EOMI, Normocephalic Oral: Moist Mucosa Neck: Supple, No JVD, Negative Carotid Bruits Lungs: Normal air movement, Diminished Cardiovascular: Regular rate, Regular Rhythm, Normal S1, Normal S2, Murmur - Holosystolic murmur Abdomen: Bowel Sounds Present, Soft, Non Tender, Non-Distended, No Hepato-splenomegaly Extremities: Edema - Bilateral +2 pitting, nontender, chronic venous stasis Skin: No rashes, No breakdown Musculoskeletal: No Tenderness to Palpation of Joints or Extremities Lymphatic: No Cervical, Supraclavicular, or Inguinal Adenopathy Neurological: Cranial nerves II-XII grossly intact Psych/Mental Status: Normal Affect, Appropriate Vitals/I&O's: Vital Signs Temp Pulse Resp BP Pulse Ox 98.4 F 78 18 118/57 L 94 01/17/18 16:11 01/17/18 16:11 01/17/18 16:11 01/17/18 16:11 01/17/18 16:11 Oxygen Flow Rate (L/min) 5 Oxygen Delivery Method Nasal Cannula Weight: 111.13 kg Body Mass Index (BMI) 45.4 Intake and Output for Last 24 Hours 01/15/18 01/16/18 01/17/18 23:59 23:59 23:59 Intake Total 1000 / 1000 1060 / 1060 860 / 860 Output Total 2024 / 2024 1800 / 1800 650 / 650 Balance -1025 / -1025 -740 / -740 210 / 210 Laboratory Results 01/16/18 16:35: POC Glucose 207 H 01/16/18 22:48: POC Glucose 306 H 01/17/18 06:41: POC Glucose 182 H 01/17/18 11:59: POC Glucose 243 H Current Medications Acetaminophen (Tylenol) 650 mg PO Q6H PRN PRN PRN Reason: Mild Pain (scale 0-3)/T>100.7 Last Admin: 01/14/18 15:35 Dose: 650 mg Hydrocodone Bitart/Acetaminophen ([place] 5mg-325mg) 1 - 2 tablet PO Q6H PRN PRN PRN Reason: Moderate-severe pain Acetazolamide (Diamox) 250 mg PO BID [facility] Last Admin: 01/17/18 09:44 Dose: 250 mg Albuterol Sulfate (Ventolin Aerosols) 2.5 mg INHALATION Q2H PRN PRN PRN Reason: Shortness of breath, wheezing Last Admin: 01/12/18 20:36 Dose: 2.5 mg Albuterol/Ipratropium (Duoneb) 3 ml INHALATION Q4H.RT [facility] Last Admin: 01/17/18 14:52 Dose: 3 ml Amoxicillin/Clavulanate Potassium (Augmentin Tablet) 875 mg PO BIDCM [facility] Last Admin: 01/17/18 09:43 Dose: 875 mg Atorvastatin Calcium (Lipitor) 10 mg PO QHS [facility] Last Admin: 01/16/18 23:00 Dose: 10 mg Escitalopram Oxalate (Lexapro) 10 mg PO DAILY [facility] Last Admin: 01/17/18 09:43 Dose: 10 mg Ferrous Sulfate (Ferrous Sulfate) 325 mg PO TIDCM [facility] Last Admin: 01/17/18 12:18 Dose: 325 mg Flunisolide (Nasarel Nose [place]) 2 spray NASAL BID [facility] Last Admin: 01/17/18 09:49 Dose: Not Given Fluticasone Propionate (Flonase Nasal [place]) 1 spray NASAL BID [facility] Last Admin: 01/17/18 09:45 Dose: 1 spray Furosemide (Lasix) 40 mg IV BID@1000,1800 [facility] Last Admin: 01/17/18 09:44 Dose: 40 mg Hydralazine HCl (Apresoline Iv) 10 mg IV Q4H PRN PRN PRN Reason: SBP > 160 Insulin Glargine (Lantus (Bkc)) 5 units SC QHS [facility] Last Admin: 01/16/18 22:57 Dose: 5 units Insulin Human Lispro (Humalog Kwikpen (Bkc)) 0 unit SQ ACHS [facility]; Protocol Last Admin: 01/17/18 12:18 Dose: 6 units Magnesium Hydroxide (Milk Of Magnesia) 30 ml PO DAILY PRN PRN Reason: Constipation Last Admin: 01/14/18 09:33 Dose: 30 ml Metoprolol Tartrate (Lopressor (Beta Jeffery)) 50 mg PO BID [facility] Last Admin: 01/17/18 09:43 Dose: 50 mg Morphine Sulfate () 1 - 2 mg IV Q4H PRN PRN PRN Reason: PAIN Nitroglycerin (Nitrostat) 0.4 mg SUBLINGUAL Q5M PRN PRN Reason: Angina pain Ondansetron HCl (Zofran) 4 mg IV Q8H PRN PRN PRN Reason: Nausea Last Admin: 01/16/18 23:59 Dose: 4 mg Pantoprazole Sodium (Protonix) 40 mg PO BID [facility] Last Admin: 01/17/18 09:43 Dose: 40 mg Potassium Chloride (K-Dur) [facility] Last Admin: 01/17/18 09:43 Dose: 20 meq Sodium Chloride () 5 - 30 ml IV UD PRN PRN Reason: SALINE FLUSH Last Admin: 01/17/18 00:00 Dose: 10 ml Sodium Chloride ([place] Nasal [place]) 2 spray NASAL TID PRN PRN PRN Reason: NASAL DRYNESS Last Admin: 01/17/18 09:50 Dose: 2 spray Trazodone HCl (Desyrel) 100 mg PO QHS PRN PRN PRN Reason: SLEEP Last Admin: 01/13/18 22:34 Dose: 100 mg Medical Necessity - Tobacco Use Smoking Status: Former smoker Tobacco Use: Cigarettes Assessment/Plan All Active Problems (Last Updated 01/02/18 @ 17:11 by David Montana MD) Diastolic CHF, acute on chronic (Acute) CKD stage 3 secondary to diabetes (Acute) CVA (cerebral vascular accident) (Resolved) CVA (cerebral vascular accident) (Resolved) History of GI bleeding (Resolved) 67 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 1. Acute sinusitis, per history, completing antibiotics today 2. Acute on chronic hypoxic respiratory failure, on 6L of oxygen, secondary to acute on chronic diastolic CHF, acute on chronic anemia, continue on breathing treatments,wean off oxygen, encourage incentive spirometer, encourage use of BiPAP, will consult pulmonary also 3. Acute on chronic diastolic CHF, on Lasix 40 mg IV twice daily, diuresing well, bicarbonate better with use of BiPAP 4. Acute metabolic alkalosis secondary to contraction alkalosis/chronic COPD retention, off Diamox, bicarbonate is better with use of BiPAP encourage patient to use BiPAP, will continue to monitor BMP 5. Acute on chronic anemia, history of AVMs, chronic anemia, iron deficient, on oral iron, status post 3 units packed RBC, Hemoglobin is stable 6. Indeterminate troponin second to demand ischemia, no history of CAD, on beta-jeffery will continue to monitor 7. Aortic stenosis, moderate-severe, needs to be evaluated for TAVR 8. Severe COPD/severe pulmonary hypertension/chronic respiratory failure, and has been refusing to use her BiPAP, claustrophobic, encouraged her to use BiPAP, pulmonology consulted, recommend continued use of BiPAP 9. Hypertension, stable, on metoprolol, continue to monitor vitals. 10. Type 2 diabetes mellitus, sugars are fairly uncontrolled, metformin withheld, blood sugars uncontrolled,will increase Lantus to 8 units QHS and continue with Accu-Cheks with insulin sliding scale 11. Morbid obesity, BMI 46, diet recommended 12. DVT prophylaxis -SCDs on account of chronic GI bleed 13. CODE STATUS: Full code -discussed again with the patient Code Visit Inpatient E&M: 50002 Subs Hosp L2
--- NOTE | 2018-01-17 16:56 | PN_ITS ---
Patient Problems: Active and Suspected Problems (Last Updated 01/02/18 @ 17:11 by David Montana MD) Diastolic CHF, acute on chronic (Acute) CKD stage 3 secondary to diabetes (Acute) Subjective: Patient was seen and examined. Denies any new complains. Waiting on [facility] transfer line. Been using Bipap intermittently. Objective: Physical exam: General: Alert, Oriented x3, Cooperative, - - Mild respiratory distress, on 6 L of oxygen, obese HEENT: Atraumatic, PERRLA, EOMI, Normocephalic Oral: Moist Mucosa Neck: Supple, No JVD, Negative Carotid Bruits Lungs: Normal air movement, Diminished Cardiovascular: Regular rate, Regular Rhythm, Normal S1, Normal S2, Murmur - Holosystolic murmur Abdomen: Bowel Sounds Present, Soft, Non Tender, Non-Distended, No Hepato- splenomegaly Extremities: Edema - Bilateral +2 pitting, nontender, chronic venous stasis Skin: No rashes, No breakdown Musculoskeletal: No Tenderness to Palpation of Joints or Extremities Lymphatic: No Cervical, Supraclavicular, or Inguinal Adenopathy Neurological: Cranial nerves II-XII grossly intact Psych/Mental Status: Normal Affect, Appropriate Vitals/I&O's: Vital Signs Temp Pulse Resp BP Pulse Ox 98.4 F 78 18 118/57 L 94 01/17/18 16:11 01/17/18 16:11 01/17/18 16:11 01/17/18 16:11 01/17/18 16:11 Oxygen Flow Rate (L/min) 5 Oxygen Delivery Method Nasal Cannula Weight: 111.13 kg Body Mass Index (BMI) 45.4 Intake and Output for Last 24 Hours 01/15/18 01/16/18 01/17/18 23:59 23:59 23:59 Intake Total 1000 / 1000 1060 / 1060 860 / 860 Output Total 2024 / 2024 1800 / 1800 650 / 650 Balance -1025 / -1025 -740 / -740 210 / 210 Laboratory Results 01/16/18 16:35: POC Glucose 207 H 01/16/18 22:48: POC Glucose 306 H 01/17/18 06:41: POC Glucose 182 H 01/17/18 11:59: POC Glucose 243 H Current Medications Acetaminophen (Tylenol) 650 mg PO Q6H PRN PRN PRN Reason: Mild Pain (scale 0-3)/T>100.7 Last Admin: 01/14/18 15:35 Dose: 650 mg Hydrocodone Bitart/Acetaminophen ([place] 5mg-325mg) 1 - 2 tablet PO Q6H PRN PRN PRN Reason: Moderate-severe pain Acetazolamide (Diamox) 250 mg PO BID [facility] Last Admin: 01/17/18 09:44 Dose: 250 mg Albuterol Sulfate (Ventolin Aerosols) 2.5 mg INHALATION Q2H PRN PRN PRN Reason: Shortness of breath, wheezing Last Admin: 01/12/18 20:36 Dose: 2.5 mg Albuterol/Ipratropium (Duoneb) 3 ml INHALATION Q4H.RT [facility] Last Admin: 01/17/18 14:52 Dose: 3 ml Amoxicillin/Clavulanate Potassium (Augmentin Tablet) 875 mg PO BIDCM [facility] Last Admin: 01/17/18 09:43 Dose: 875 mg Atorvastatin Calcium (Lipitor) 10 mg PO QHS [facility] Last Admin: 01/16/18 23:00 Dose: 10 mg Escitalopram Oxalate (Lexapro) 10 mg PO DAILY [facility] Last Admin: 01/17/18 09:43 Dose: 10 mg Ferrous Sulfate (Ferrous Sulfate) 325 mg PO TIDCM [facility] Last Admin: 01/17/18 12:18 Dose: 325 mg Flunisolide (Nasarel Nose [place]) 2 spray NASAL BID [facility] Last Admin: 01/17/18 09:49 Dose: Not Given Fluticasone Propionate (Flonase Nasal [place]) 1 spray NASAL BID [facility] Last Admin: 01/17/18 09:45 Dose: 1 spray Furosemide (Lasix) 40 mg IV BID@1000,1800 [facility] Last Admin: 01/17/18 09:44 Dose: 40 mg Hydralazine HCl (Apresoline Iv) 10 mg IV Q4H PRN PRN PRN Reason: SBP > 160 Insulin Glargine (Lantus (Bkc)) 5 units SC QHS [facility] Last Admin: 01/16/18 22:57 Dose: 5 units Insulin Human Lispro (Humalog Kwikpen (Bkc)) 0 unit SQ ACHS [facility]; Protocol Last Admin: 01/17/18 12:18 Dose: 6 units Magnesium Hydroxide (Milk Of Magnesia) 30 ml PO DAILY PRN PRN Reason: Constipation Last Admin: 01/14/18 09:33 Dose: 30 ml Metoprolol Tartrate (Lopressor (Beta [place]ery)) 50 mg PO BID [facility] Last Admin: 01/17/18 09:43 Dose: 50 mg Morphine Sulfate () 1 - 2 mg IV Q4H PRN PRN PRN Reason: PAIN Nitroglycerin (Nitrostat) 0.4 mg SUBLINGUAL Q5M PRN PRN Reason: Angina pain Ondansetron HCl (Zofran) 4 mg IV Q8H PRN PRN PRN Reason: Nausea Last Admin: 01/16/18 23:59 Dose: 4 mg Pantoprazole Sodium (Protonix) 40 mg PO BID [facility] Last Admin: 01/17/18 09:43 Dose: 40 mg Potassium Chloride (K-Dur) [facility]q [facility] Last Admin: 01/17/18 09:43 Dose: 20 meq Sodium Chloride () 5 - 30 ml IV UD PRN PRN Reason: SALINE FLUSH Last Admin: 01/17/18 00:00 Dose: 10 ml Sodium Chloride ([place] Nasal [place]) 2 spray NASAL TID PRN PRN PRN Reason: NASAL DRYNESS Last Admin: 01/17/18 09:50 Dose: 2 spray Trazodone HCl (Desyrel) 100 mg PO QHS PRN PRN PRN Reason: SLEEP Last Admin: 01/13/18 22:34 Dose: 100 mg Medical Necessity - Tobacco Use Smoking Status: Former smoker Tobacco Use: Cigarettes Assessment/Plan All Active Problems (Last Updated 01/02/18 @ 17:11 by David Montana MD) Diastolic CHF, acute on chronic (Acute) CKD stage 3 secondary to diabetes (Acute) CVA (cerebral vascular accident) (Resolved) CVA (cerebral vascular accident) (Resolved) History of GI bleeding (Resolved) 67 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 1. Acute sinusitis, per history, completing antibiotics today 2. Acute on chronic hypoxic respiratory failure, on 6L of oxygen, secondary to acute on chronic diastolic CHF, acute on chronic anemia, continue on breathing treatments,wean off oxygen, encourage incentive spirometer, encourage use of BiPAP, will consult pulmonary also 3. Acute on chronic diastolic CHF, on Lasix 40 mg IV twice daily, diuresing well, bicarbonate better with use of BiPAP 4. Acute metabolic alkalosis secondary to contraction alkalosis/chronic COPD retention, off Diamox, bicarbonate is better with use of BiPAP encourage patient to use BiPAP, will continue to monitor BMP 5. Acute on chronic anemia, history of AVMs, chronic anemia, iron deficient, on oral iron, status post 3 units packed RBC, Hemoglobin is stable 6. Indeterminate troponin second to demand ischemia, no history of CAD, on beta- jeffery will continue to monitor 7. Aortic stenosis, moderate-severe, needs to be evaluated for TAVR 8. Severe COPD/severe pulmonary hypertension/chronic respiratory failure, and has been refusing to use her BiPAP, claustrophobic, encouraged her to use BiPAP, pulmonology consulted, recommend continued use of BiPAP 9. Hypertension, stable, on metoprolol, continue to monitor vitals. 10. Type 2 diabetes mellitus, sugars are fairly uncontrolled, metformin withheld, blood sugars uncontrolled,will increase Lantus to 8 units QHS and continue with Accu-Cheks with insulin sliding scale 11. Morbid obesity, BMI 46, diet recommended 12. DVT prophylaxis -SCDs on account of chronic GI bleed 13. CODE STATUS: Full code -discussed again with the patient Code Visit Inpatient E&M: 32782 Subs Hosp L2
--- NOTE | 2018-01-17 17:02 | CHAPLAIN ---
Type of Pastoral Visit ___ Initial Visit _x__ Follow-up Visit ___ On-call Visit ___ General Patient Visit ___ Spiritual Assessment ___ Family Conference ___ Bereavement ___ Rapid Response ___ Code Blue ___ Other (describe below) Pastoral Care Referral From _x__ Patient ___ Family ___ Nurse ___ Physician ___ Zone Supervisor Firearms ___ Frame Repairer ___ Other (describe below) Sacrament/Intervention _x__ Active listening ___ Anointing ___ Yarsanism ___ Bereavement ___ Communion ___ Sandra exploration ___ ___ Life review _x__ Prayer ___ Reconciliation ___ Sacrament of Sick _x__ Supportive presence ___ Wedding ___ Other (describe below) Pastoral Comments patient gives an update on her now two week stay in hospital; pt asks specific prayer for a bed to open in [facility], good roommate situation at [facility], and ability to use her BiPap machine with comfort; pt says she is trying to stay agreeable and kind and feels like she is making the best of her situation; pt reports receiving good care here
[2018-01-17 17:41] LABS: Bedside Glucose 228 mg/dL (70-110)
[2018-01-17] MEDS: Atorvastatin Calcium 10 MG Tablet PO (21:17)
[2018-01-17] MEDS: traZODone 100 MG Tablet PO (22:43)
[2018-01-18] VITALS (16 sets, daily range): BP systolic 106–127; BP diastolic 44–70; PULSE 72–88; RESP 12–20; TEMP 36.3–36.8; O2SAT 92–96
[2018-01-18 00:51] LABS: Bedside Glucose 250 mg/dL (70-110)
[2018-01-18 06:50] LABS: Bedside Glucose 199 mg/dL (70-110)
[2018-01-18 07:31] LABS: Absolute Lymphocyte Count 1.18 X10^3/ul (0.83-4.51); Basophil# 0.04 X10^3/uL; Basophil% 0.3 % (0-1); Eosinophil# 0.34 X10^3/uL; Eosinophils% 2.4 % (0-5); Hematocrit 31.8 % (37-47); Hemoglobin 8.7 g/dl (12.0-15.0); Lymphocyte # 1.18 X10^3/ul (4.0); Lymphocyte % 8.3 % (19-41); Mean Corp Hgb Conc 27.4 g/gl (32-36); Mean Corpuscular Volume 98.8 fL (81-99); Mean Platelet Vol. 9.7 fl (6.2-12.0); Monocyte% 3.5 % (0-10); Neutrophil # 11.97 X10^3/uL (2.7-7.7); Neutrophil % 84.6 % (47-70); Platelet Count 428 K/mm3 (150-450); RBC Distribution Width CV 16.2 % (11.6-14.6); RBC Distribution Width SD 57.3 fl (35.1-43.9); Red Blood Count 3.22 M/mm3 (4.2-5.4); White Blood Count 14.2 K/mm3 (4.4-11.0)
[2018-01-18 07:37] LABS: POSITIVE COUNT NO; POSITIVE DIFFERENTIAL NO; POSITIVE MORPHOLOGY NO
[2018-01-18 07:51] LABS: Anion Gap 6 (5-15); BUN 34 mg/dL (7-18); BUN/Creat Ratio 29.3 RATIO (10-20); Calcium,Total 8.8 mg/dL (8.5-10.1); Chloride 92 mmol/L (98-107); Creatinine, Serum 1.16 mg/dL (0.55-1.02); EST Glomerular Filtration Rate 49 mL/min (>60); Est Glom Filt Rate - Afr Amer 60 mL/min (>60); Estimated Creatinine Clearance 37.86 ml/min; Glucose 187 mg/dL (74-106); Potassium 3.6 mmol/L (3.5-5.1); Sodium Level 138 mmol/L (136-145)
--- NOTE | 2018-01-18 08:51 | PN.CARD_ITS ---
Subjectve: Patient seen and evaluated. Appears to be stable at this time currently using her BiPAP mask. Objective: Vital Signs Temp Pulse Resp BP Pulse Ox 97.4 F L 81 16 127/61 H 94 01/18/18 08:47 01/18/18 08:47 01/18/18 08:47 01/18/18 08:47 01/18/18 08:47 Oxygen Flow Rate (L/min) 6 Oxygen Delivery Method Nasal Cannula Weight: 242 lb 8.136 oz Body Mass Index (BMI) 45.4 Intake and Output for Last 24 Hours 01/16/18 01/17/18 01/18/18 23:59 23:59 23:59 Intake Total 1060 / 1060 1100 / 1100 300 / 300 Output Total 1800 / 1800 1050 / 1050 300 / 300 Balance -740 / -740 50 / 50 0 / 0 General: Awake, Alert, Oriented x 3 HEENT: PERRL, EOMI, Sclera Non Icteric Neck: Supple, Good ROM, No Lymph Node Enlargement Lungs: Clear to auscultation Cardiovascular: Regular Rhythm, Normal S1, Normal S2, No Rubs, No Gallops Murmur Murmur: Grade 3/6, Harsh, Mid Systolic, LLSB, LVOT, Sternal Notch Vascular: No Carotid Bruits, Normal Femoral Pulses, Normal Radial Pulses, Normal Dorsalis Pedal Pulse, Normal Posterior Tibial Pulses Abdomen: Bowel Sounds Present, Soft, Non Tender, No HSM, No Organomegaly Extremities: No Cyanosis, No Clubbing, No edema Neurological: No Focal Motor or Sensory Deficit 01/18/18 07:06: WBC 14.2 H, RBC 3.22 L, Hgb 8.7 L, Hct 31.8 L, MCV 98.8, MCH 27.0, MCHC 27.4 L, RDW 16.2 H, RDW Differential 57.3 H, Plt Count 428, MPV 9.7, Immature Gran % (Auto) 0.900, Neut % (Auto) 84.6 H, Lymph % (Auto) 8.3 L, [place] % (Auto) 3.5, Eos % (Auto) 2.4, Baso % (Auto) 0.3, Absolute Neuts (auto) 12.0 H, Total Counted Not Reportable 01/18/18 07:06: Sodium 138, Potassium 3.6, Chloride 92 L, Carbon Dioxide 40.0 H, Anion Gap 6, BUN 34 H, Creatinine 1.16 H, Est GFR (MDRD) Af Amer 60, Est GFR (MDRD) Non-Af 49 L, BUN/Creatinine Ratio 29.3 H, Glucose 187 H, Calcium 8.8 Rhythm: EKG: ECHO: Stress Test: Cardiac Cath: PCI: CT Surgery: Holter monitor: EPS: PPM: CXR: Chest CT Scan: Medical Necessity - Tobacco Use Smoking Status: Former smoker Tobacco Use: Cigarettes Assessment/Plan 1. Acute on chronic diastolic mediated CHF At the present time patient presents with findings compatible with acute on chronic diastolic mediated CHF. * The patient has resumed IV diuretic therapy. She continues on Diamox therapy. Her last BMP noted some improvement in her CO2 level. * She will continue oxygen support. She is attempting BiPAP therapy. However, she has not been able to wear BiPAP all the time. She was encouraged to continue to wear this as much as possible. 2. Aortic valve stenosis She does have a history of aortic valve stenosis. He has been evaluated at the [facility] for her aortic valve stenosis for consideration for TAVR thus far they have not proceeded with this procedure.A follow-up transthoracic echocardiogram was performed. Her aortic valve, is not well visualized, however, spectral Doppler suggest moderately severe aortic valve stenosis. 3. Pulmonary hypertension This may be secondary to not only her cardiovascular disease but her pulmonary disease with her COPD, etc. He will need continued pulmonary support and medical therapy which does include her diuretic therapy. However, there is concern with respect to her diabetic therapy and her subsequent acid-base status. 4. Hyperlipidemia She will continue lipid-lowering therapy as deemed appropriate. 5. Hypertension She will continue antihypertensive therapy with adjustment as needed. Overall she will continue to new medical therapy. Again she is pending transfer to [facility] for further tertiary care center cardiopulmonary evaluation. Thank you for allowing me to participate in the care of your patient. Please don't hesitate to call if any issues arise
[2018-01-18] MEDS: Insulin Lispro 100 UNIT/ML INSULN.PEN SQ ×4 (09:51→21:42)
[2018-01-18] MEDS: Sodium Chloride 0.65% 1 SPRAY SPRAY.BTL 2 SPRAY NASAL ×2 (09:52→21:42)
[2018-01-18] MEDS: Fluticasone 0.05% 1 SPRAY NASAL.SRY NASAL ×2 (09:52→21:41)
[2018-01-18] MEDS: Pantoprazole Sodium 40 MG Tablet PO ×2 (09:53→21:41)
[2018-01-18] MEDS: Metoprolol Tartrate 50 MG Tablet PO ×2 (09:53→21:41)
[2018-01-18] MEDS: AcetaZOLAMIDE 250 MG Tablet PO ×2 (09:53→21:41)
[2018-01-18] MEDS: Escitalopram Oxalate 10 MG Tablet PO ×2 (09:53)
[2018-01-18] MEDS: Ferrous Sulfate 325 MG Tablet PO ×3 (09:54→17:05)
[2018-01-18] MEDS: Amox/Clavulanate 875 MG Tablet PO (09:54)
[2018-01-18] MEDS: Furosemide 40 MG/4 ML Vial IV ×2 (09:55→17:06)
--- NOTE | 2018-01-18 10:19 | PN_ITS ---
Patient Problems: Active and Suspected Problems (Last Updated 01/02/18 @ 17:11 by David Montana MD) Diastolic CHF, acute on chronic (Acute) CKD stage 3 secondary to diabetes (Acute) Subjective: Patient did okay overnight. Patient continues to await transfer to a tertiary center for evaluation of aortic valve. Patient reports subjective improvement compared to yesterday. Patient does report that she was able to ambulate around somewhat, but did have dyspnea on exertion. Patient has been better about using BiPAP therapy over the last 24 hours and states subjective improvement in daytime fatigue. - Physical Exam General: Alert, Oriented x3, Cooperative, No apparent distress, - - RASS 0. Morbidly obese. Speaking in full sentences. HEENT: Atraumatic, PERRLA, EOMI, Normocephalic, - - No scleral icterus or injection noted. Oral: Moist Mucosa, No Gingival or Mucosal Lesions/ Ulcerations Neck: Supple, No JVD, No Nodes, Trachea Midline Lungs: No rhonchi, No wheeze, No rales, Diminished, - - Symmetric expansion. No dullness to percussion. Cardiovascular: Normal S1, Normal S2, Murmur - Unchanged, No rub noted, No Gallop Abdomen: Bowel Sounds Present, Soft, Non Tender, Non-Distended, Obese Extremities: No cyanosis, Capillary Refill Less than 3 Seconds, Clubbing, Edema - Trace Skin: No rashes, No breakdown Musculoskeletal: No Tenderness to Palpation of Joints or Extremities, No Muscle Wasting Lymphatic: No Cervical, Supraclavicular, or Inguinal Adenopathy Neurological: Cranial nerves II-XII grossly intact, Neuro grossly intact, Motor Exam 5/5 strength throughout Psych/Mental Status: Alert and oriented to time, place, person, mood and affect Vital Signs Temp Pulse Resp BP Pulse Ox 36.3 C L 81 16 127/61 H 94 01/18/18 08:47 01/18/18 09:53 01/18/18 08:47 01/18/18 08:47 01/18/18 08:47 Oxygen Flow Rate (L/min) 6 Oxygen Delivery Method Nasal Cannula Weight: 110 kg Body Mass Index (BMI) 45.4 Intake and Output for Last 24 Hours 01/16/18 01/17/18 01/18/18 23:59 23:59 23:59 Intake Total 1060 / 1060 1100 / 1100 300 / 300 Output Total 1800 / 1800 1050 / 1050 300 / 300 Balance -740 / -740 50 / 50 0 / 0 Laboratory Tests Past 24 Hrs 01/18/18 01/18/18 07:06 07:06 WBC 14.2 H RBC 3.22 L Hgb 8.7 L Hct 31.8 L MCV 98.8 MCH 27.0 MCHC 27.4 L RDW 16.2 H RDW Differential 57.3 H Plt Count 428 MPV 9.7 Immature Gran % (Auto) 0.900 Neut % (Auto) 84.6 H Lymph % (Auto) 8.3 L [place] % (Auto) 3.5 Eos % (Auto) 2.4 Baso % (Auto) 0.3 Absolute Neuts (auto) 12.0 H Absolute Lymphs (auto) 1.18 Total Counted Not Reportable Sodium 138 Potassium 3.6 Chloride 92 L Carbon Dioxide 40.0 H Anion Gap 6 BUN 34 H Creatinine 1.16 H Estim Creat Clear Calc 37.86 Est GFR (MDRD) Af Amer 60 Est GFR (MDRD) Non-Af 49 L BUN/Creatinine Ratio 29.3 H Glucose 187 H Calcium 8.8 POC Glucose 01/18/18 01/17/18 01/17/18 06:43 21:09 17:32 POC Glucose 199 H 250 H 228 H 01/17/18 11:59 POC Glucose 243 H Medical Necessity - Tobacco Use Smoking Status: Former smoker Tobacco Use: Cigarettes Assessment/Plan All Active Problems (Last Updated 01/02/18 @ 17:11 by David Montana MD) Diastolic CHF, acute on chronic (Acute) CKD stage 3 secondary to diabetes (Acute) CVA (cerebral vascular accident) (Resolved) CVA (cerebral vascular accident) (Resolved) History of GI bleeding (Resolved) RECOMMENDATIONS: 1. Continue to encourage nasal CPAP with chinstrap 2. Await transfer to [facility] for possible TAVR 3. BiPAP with sleep and as needed 4. Wean oxygen as tolerated to keep saturations 90-94% 5. Increase activity as tolerated 6. Continue diuresis IMPRESSIONS: 1. Acute on chronic combined respiratory failure secondary to acute on chronic diastolic congestive heart failure Patient has been receiving significant diuresis over the course of the hospitalization. Patient has been diuresed over 15 L over the course of the hospitalization without accounting for incontinent episodes. Patient continues to have significant hypoxemia. I agree with transfer to [facility] for evaluation for possible valve replacement. Still awaiting bed placement. Patient appears to be improving clinically with increased compliance to BiPAP therapy. 2. Acute on chronic blood loss anemia Patient does have a history of GI AVMs in the past. Patient's hemoglobin is currently stable and acceptable. Transfuse to keep hemoglobin greater than 8 given cardiac condition. Patient is on a PPI at appropriate dosing. Doubt need for emergent endoscopy for evaluation. Likely recheck blood counts every 48-72 hours. Cannot exclude destruction of blood cells secondary to aortic stenosis. 3. Aortic stenosis Exact morphology is unclear at this time. Some testing suggest severe disease and others suggest that intervention is not required. Patient has had multiple admissions over the last year secondary to fluid overload requiring diuresis of 10-12 L of fluid. Patient is approaching her baseline fluid status. Patient would benefit from outpatient evaluation to see if surgical intervention would be appropriate. If patient does not qualify for valve replacement, long-term prognosis is extremely guarded. 4. Morbid obesity/type 2 diabetes mellitus/hypertension/advanced age/acute sinusitis Complicates care, management, recovery and prognosis. Likely okay to continue with baseline medications. Patient with variable p.o. intake. Would avoid metformin given patient's renal function and active diuresis previously. Patient is on antibiotics for reported acute sinusitis. Code Visit Inpatient E&M: 14905 Subs Hosp L2
[2018-01-18 12:16] LABS: Bedside Glucose 266 mg/dL (70-110)
--- NOTE | 2018-01-18 14:34 | PCM.PN.HOSP ---
Patient Problems: Active and Suspected Problems (Last Updated 01/02/18 @ 17:11 by David Montana MD) Diastolic CHF, acute on chronic (Acute) CKD stage 3 secondary to diabetes (Acute) Subjective: Patient seen and examined. Still waiting on transfer to [facility]. Objective: Physical exam: General: Alert, Oriented x3, Cooperative, - - Mild respiratory distress, on 6 L of oxygen, obese HEENT: Atraumatic, PERRLA, EOMI, Normocephalic Oral: Moist Mucosa Neck: Supple, No JVD, Negative Carotid Bruits Lungs: Normal air movement, Diminished Cardiovascular: Regular rate, Regular Rhythm, Normal S1, Normal S2, Murmur - Holosystolic murmur Abdomen: Bowel Sounds Present, Soft, Non Tender, Non-Distended, No Hepato-splenomegaly Extremities: Edema - Bilateral +2 pitting, nontender, chronic venous stasis Skin: No rashes, No breakdown Musculoskeletal: No Tenderness to Palpation of Joints or Extremities Lymphatic: No Cervical, Supraclavicular, or Inguinal Adenopathy Neurological: Cranial nerves II-XII grossly intact Psych/Mental Status: Normal Affect, Appropriate Vitals/I&O's: Vital Signs Temp Pulse Resp BP Pulse Ox 98 F 84 20 H 106/50 L 96 01/18/18 14:00 01/18/18 14:00 01/18/18 14:00 01/18/18 14:00 01/18/18 14:00 Oxygen Flow Rate (L/min) 6 Oxygen Delivery Method Nasal Cannula Weight: 110 kg Body Mass Index (BMI) 45.4 Intake and Output for Last 24 Hours 01/16/18 01/17/18 01/18/18 23:59 23:59 23:59 Intake Total 1060 / 1060 1100 / 1100 780 / 780 Output Total 1800 / 1800 1050 / 1050 300 / 300 Balance -740 / -740 50 / 50 480 / 480 Laboratory Results 01/17/18 17:32: POC Glucose 228 H 01/17/18 21:09: POC Glucose 250 H 01/18/18 06:43: POC Glucose 199 H 01/18/18 07:06: WBC 14.2 H, RBC 3.22 L, Hgb 8.7 L, Hct 31.8 L, MCV 98.8, MCH 27.0, MCHC 27.4 L, RDW 16.2 H, RDW Differential 57.3 H, Plt Count 428, MPV 9.7, Immature Gran % (Auto) 0.900, Neut % (Auto) 84.6 H, Lymph % (Auto) 8.3 L, [place] % (Auto) 3.5, Eos % (Auto) 2.4, Baso % (Auto) 0.3, Absolute Neuts (auto) 12.0 H, Absolute Lymphs (auto) 1.18, Total Counted Not Reportable 01/18/18 07:06: Sodium 138, Potassium 3.6, Chloride 92 L, Carbon Dioxide 40.0 H, Anion Gap 6, BUN 34 H, Creatinine 1.16 H, Estim Creat Clear Calc 37.86, Est GFR (MDRD) Af Amer 60, Est GFR (MDRD) Non-Af 49 L, BUN/Creatinine Ratio 29.3 H, Glucose 187 H, Calcium 8.8 01/18/18 12:07: POC Glucose 266 H Current Medications Acetaminophen (Tylenol) 650 mg PO Q6H PRN PRN PRN Reason: Mild Pain (scale 0-3)/T>100.7 Last Admin: 01/14/18 15:35 Dose: 650 mg Hydrocodone Bitart/Acetaminophen ([place] 5mg-325mg) 1 - 2 tablet PO Q6H PRN PRN PRN Reason: Moderate-severe pain Acetazolamide (Diamox) 250 mg PO BID [facility] Last Admin: 01/18/18 09:53 Dose: 250 mg Albuterol Sulfate (Ventolin Aerosols) 2.5 mg INHALATION Q2H PRN PRN PRN Reason: Shortness of breath, wheezing Last Admin: 01/12/18 20:36 Dose: 2.5 mg Albuterol/Ipratropium (Duoneb) 3 ml INHALATION Q4H.RT [facility] Last Admin: 01/18/18 11:00 Dose: Not Given Amoxicillin/Clavulanate Potassium ([facility]) [facility] Last Admin: 01/18/18 09:54 Dose: 875 mg Atorvastatin Calcium (Lipitor) 10 mg PO QHS [facility] Last Admin: 01/17/18 21:17 Dose: 10 mg Escitalopram Oxalate (Lexapro) 10 mg PO DAILY [facility] Last Admin: 11/03/18 09:53 Dose: 10 mg Ferrous Sulfate (Ferrous Sulfate) 325 mg PO TIDCM [facility] Last Admin: 01/18/18 12:09 Dose: 325 mg Flunisolide (Nasarel Nose [place]) 2 spray NASAL BID [facility] Last Admin: 01/18/18 09:55 Dose: Not Given Fluticasone Propionate (Flonase Nasal [place]) 1 spray NASAL BID [facility] Last Admin: 01/18/18 09:52 Dose: 1 spray Furosemide (Lasix) 40 mg IV BID@1000,1800 [facility] Last Admin: 01/18/18 09:55 Dose: 40 mg Hydralazine HCl (Apresoline Iv) 10 mg IV Q4H PRN PRN PRN Reason: SBP > 160 Insulin Glargine (Lantus (Bkc)) 8 units SC QHS [facility] Last Admin: 01/17/18 21:17 Dose: 8 units Insulin Human Lispro (Humalog Kwikpen (Bkc)) 0 unit SQ ACHS [facility]; Protocol Last Admin: 01/18/18 12:10 Dose: 9 units Magnesium Hydroxide (Milk Of Magnesia) 30 ml PO DAILY PRN PRN Reason: Constipation Last Admin: 01/14/18 09:33 Dose: 30 ml Metoprolol Tartrate (Lopressor (Beta [place])) 50 mg PO BID [facility] Last Admin: 01/18/18 09:53 Dose: 50 mg Morphine Sulfate () 1 - 2 mg IV Q4H PRN PRN PRN Reason: PAIN Nitroglycerin (Nitrostat) 0.4 mg SUBLINGUAL Q5M PRN PRN Reason: Angina pain Ondansetron HCl (Zofran) 4 mg IV Q8H PRN PRN PRN Reason: Nausea Last Admin: 01/16/18 23:59 Dose: 4 mg Pantoprazole Sodium (Protonix) 40 mg PO BID [facility] Last Admin: 01/18/18 09:53 Dose: 40 mg Potassium Chloride (K-Dur) 20 meq PO DAILYCM [facility] Last Admin: 01/18/18 09:54 Dose: 20 meq Sodium Chloride () 5 - 30 ml IV UD PRN PRN Reason: SALINE FLUSH Last Admin: 01/17/18 00:00 Dose: 10 ml Sodium Chloride ([place] Nasal [place]) 2 spray NASAL TID PRN PRN PRN Reason: NASAL DRYNESS Last Admin: 01/18/18 09:52 Dose: 2 spray Trazodone HCl (Desyrel) 100 mg PO QHS PRN PRN PRN Reason: SLEEP Last Admin: 01/17/18 22:43 Dose: 100 mg Medical Necessity - Tobacco Use Smoking Status: Former smoker Tobacco Use: Cigarettes Assessment/Plan All Active Problems (Last Updated 01/02/18 @ 17:11 by David Montana MD) Diastolic CHF, acute on chronic (Acute) CKD stage 3 secondary to diabetes (Acute) CVA (cerebral vascular accident) (Resolved) CVA (cerebral vascular accident) (Resolved) History of GI bleeding (Resolved) 67 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 1. Acute sinusitis, completed antibiotics 2. Acute on chronic hypoxic respiratory failure, on 6L of oxygen, secondary to acute on chronic diastolic CHF, acute on chronic anemia, continue on breathing treatments,wean off oxygen, encourage incentive spirometer, encourage use of BiPAP 3. Acute on chronic diastolic CHF, unclear etiology for this, likely a combination of acute on chronic anemia, severe aortic stenosis, on Lasix 40 mg IV twice daily, diuresing well, bicarbonate better with use of BiPAP 4. Acute metabolic alkalosis secondary to contraction alkalosis/chronic COPD retention, off Diamox, bicarbonate is better with use of BiPAP encourage patient to use BiPAP, will continue to monitor BMP 5. Acute on chronic anemia, history of AVMs, chronic anemia, iron deficient, on oral iron, status post 3 units packed RBC, Hemoglobin is stable 6. Indeterminate troponin second to demand ischemia, no history of CAD, on beta-jeffery will continue to monitor 7. Aortic stenosis, severe, needs to be evaluated for TAVR 8. Severe COPD/severe pulmonary hypertension/chronic respiratory failure, and has been refusing to use her BiPAP, claustrophobic, encouraged her to use BiPAP, pulmonology consulted, recommend continued use of BiPAP 9. Hypertension, stable, on metoprolol, continue to monitor vitals. 10. Type 2 diabetes mellitus, sugars are fairly uncontrolled, metformin withheld, blood sugars uncontrolled,will increase Lantus to 8 units QHS and continue with Accu-Cheks with insulin sliding scale 11. Morbid obesity, BMI 46, diet recommended 12. DVT prophylaxis -SCDs on account of chronic GI bleed 13. CODE STATUS: Full code -discussed again with the patient Code Visit Inpatient E&M: 63675 Subs Hosp L2
--- NOTE | 2018-01-18 14:37 | PN_ITS ---
Patient Problems: Active and Suspected Problems (Last Updated 01/02/18 @ 17:11 by David Montana MD) Diastolic CHF, acute on chronic (Acute) CKD stage 3 secondary to diabetes (Acute) Subjective: Patient seen and examined. Still waiting on transfer to [facility]. Objective: Physical exam: General: Alert, Oriented x3, Cooperative, - - Mild respiratory distress, on 6 L of oxygen, obese HEENT: Atraumatic, PERRLA, EOMI, Normocephalic Oral: Moist Mucosa Neck: Supple, No JVD, Negative Carotid Bruits Lungs: Normal air movement, Diminished Cardiovascular: Regular rate, Regular Rhythm, Normal S1, Normal S2, Murmur - Holosystolic murmur Abdomen: Bowel Sounds Present, Soft, Non Tender, Non-Distended, No Hepato- splenomegaly Extremities: Edema - Bilateral +2 pitting, nontender, chronic venous stasis Skin: No rashes, No breakdown Musculoskeletal: No Tenderness to Palpation of Joints or Extremities Lymphatic: No Cervical, Supraclavicular, or Inguinal Adenopathy Neurological: Cranial nerves II-XII grossly intact Psych/Mental Status: Normal Affect, Appropriate Vitals/I&O's: Vital Signs Temp Pulse Resp BP Pulse Ox 98 F 84 20 H 106/50 L 96 01/18/18 14:00 01/18/18 14:00 01/18/18 14:00 01/18/18 14:00 01/18/18 14:00 Oxygen Flow Rate (L/min) 6 Oxygen Delivery Method Nasal Cannula Weight: 110 kg Body Mass Index (BMI) 45.4 Intake and Output for Last 24 Hours 01/16/18 01/17/18 01/18/18 23:59 23:59 23:59 Intake Total 1060 / 1060 1100 / 1100 780 / 780 Output Total 1800 / 1800 1050 / 1050 300 / 300 Balance -740 / -740 50 / 50 480 / 480 Laboratory Results 01/17/18 17:32: POC Glucose 228 H 01/17/18 21:09: POC Glucose 250 H 01/18/18 06:43: POC Glucose 199 H 01/18/18 07:06: WBC 14.2 H, RBC 3.22 L, Hgb 8.7 L, Hct 31.8 L, MCV 98.8, MCH 27.0, MCHC 27.4 L, RDW 16.2 H, RDW Differential 57.3 H, Plt Count 428, MPV 9.7, Immature Gran % (Auto) 0.900, Neut % (Auto) 84.6 H, Lymph % (Auto) 8.3 L, [place] % (Auto) 3.5, Eos % (Auto) 2.4, Baso % (Auto) 0.3, Absolute Neuts (auto) 12.0 H, Absolute Lymphs (auto) 1.18, Total Counted Not Reportable 01/18/18 07:06: Sodium 138, Potassium 3.6, Chloride 92 L, Carbon Dioxide 40.0 H, Anion Gap 6, BUN 34 H, Creatinine 1.16 H, Estim Creat Clear Calc 37.86, Est GFR (MDRD) Af Amer 60, Est GFR (MDRD) Non-Af 49 L, BUN/Creatinine Ratio 29.3 H, Glucose 187 H, Calcium 8.8 01/18/18 12:07: POC Glucose 266 H Current Medications Acetaminophen (Tylenol) 650 mg PO Q6H PRN PRN PRN Reason: Mild Pain (scale 0-3)/T>100.7 Last Admin: 01/14/18 15:35 Dose: 650 mg Hydrocodone Bitart/Acetaminophen ([place] 5mg-325mg) 1 - 2 tablet PO Q6H PRN PRN PRN Reason: Moderate-severe pain Acetazolamide (Diamox) 250 mg PO BID [facility] Last Admin: 01/18/18 09:53 Dose: 250 mg Albuterol Sulfate (Ventolin Aerosols) 2.5 mg INHALATION Q2H PRN PRN PRN Reason: Shortness of breath, wheezing Last Admin: 01/12/18 20:36 Dose: 2.5 mg Albuterol/Ipratropium (Duoneb) 3 ml INHALATION Q4H.RT [facility] Last Admin: 01/18/18 11:00 Dose: Not Given Amoxicillin/Clavulanate Potassium (Augmentin Tablet) [facility] Last Admin: 01/18/18 09:54 Dose: 875 mg Atorvastatin Calcium (Lipitor) 10 mg PO QHS [facility] Last Admin: 01/17/18 21:17 Dose: 10 mg Escitalopram Oxalate (Lexapro) 10 mg PO DAILY [facility] Last Admin: 11/03/18 09:53 Dose: 10 mg Ferrous Sulfate (Ferrous Sulfate) 325 mg PO TIDCM [facility] Last Admin: 01/18/18 12:09 Dose: 325 mg Flunisolide (Nasarel Nose [place]) 2 spray NASAL BID [facility] Last Admin: 01/18/18 09:55 Dose: Not Given Fluticasone Propionate (Flonase Nasal [place]) 1 spray NASAL BID [facility] Last Admin: 01/18/18 09:52 Dose: 1 spray Furosemide (Lasix) 40 mg IV BID@1000,1800 [facility] Last Admin: 01/18/18 09:55 Dose: 40 mg Hydralazine HCl (Apresoline Iv) 10 mg IV Q4H PRN PRN PRN Reason: SBP > 160 Insulin Glargine (Lantus (Bkc)) 8 units SC QHS [facility] Last Admin: 01/17/18 21:17 Dose: 8 units Insulin Human Lispro (Humalog Kwikpen (Bkc)) 0 unit SQ ACHS [facility]; Protocol Last Admin: 01/18/18 12:10 Dose: 9 units Magnesium Hydroxide (Milk Of Magnesia) 30 ml PO DAILY PRN PRN Reason: Constipation Last Admin: 01/14/18 09:33 Dose: 30 ml Metoprolol Tartrate (Lopressor (Beta [place])) 50 mg PO BID [facility] Last Admin: 01/18/18 09:53 Dose: 50 mg Morphine Sulfate () 1 - 2 mg IV Q4H PRN PRN PRN Reason: PAIN Nitroglycerin (Nitrostat) 0.4 mg SUBLINGUAL Q5M PRN PRN Reason: Angina pain Ondansetron HCl (Zofran) 4 mg IV Q8H PRN PRN PRN Reason: Nausea Last Admin: 01/16/18 23:59 Dose: 4 mg Pantoprazole Sodium (Protonix) 40 mg PO BID [facility] Last Admin: 01/18/18 09:53 Dose: 40 mg Potassium Chloride (K-Dur) 20 meq PO DAILYCM [facility] Last Admin: 01/18/18 09:54 Dose: 20 meq Sodium Chloride () 5 - 30 ml IV UD PRN PRN Reason: SALINE FLUSH Last Admin: 01/17/18 00:00 Dose: 10 ml Sodium Chloride ([place] Nasal [place]) 2 spray NASAL TID PRN PRN PRN Reason: NASAL DRYNESS Last Admin: 01/18/18 09:52 Dose: 2 spray Trazodone HCl (Desyrel) 100 mg PO QHS PRN PRN PRN Reason: SLEEP Last Admin: 01/17/18 22:43 Dose: 100 mg Medical Necessity - Tobacco Use Smoking Status: Former smoker Tobacco Use: Cigarettes Assessment/Plan All Active Problems (Last Updated 01/02/18 @ 17:11 by David Montana MD) Diastolic CHF, acute on chronic (Acute) CKD stage 3 secondary to diabetes (Acute) CVA (cerebral vascular accident) (Resolved) CVA (cerebral vascular accident) (Resolved) History of GI bleeding (Resolved) 67 years old female patient admitted from her [employer] office with exertional shortness of 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 1. Acute sinusitis, completed antibiotics 2. Acute on chronic hypoxic respiratory failure, on 6L of oxygen, secondary to acute on chronic diastolic CHF, acute on chronic anemia, continue on breathing treatments,wean off oxygen, encourage incentive spirometer, encourage use of BiPAP 3. Acute on chronic diastolic CHF, unclear etiology for this, likely a combination of acute on chronic anemia, severe aortic stenosis, on Lasix 40 mg IV twice daily, diuresing well, bicarbonate better with use of BiPAP 4. Acute metabolic alkalosis secondary to contraction alkalosis/chronic COPD retention, off Diamox, bicarbonate is better with use of BiPAP encourage patient to use BiPAP, will continue to monitor BMP 5. Acute on chronic anemia, history of AVMs, chronic anemia, iron deficient, on oral iron, status post 3 units packed RBC, Hemoglobin is stable 6. Indeterminate troponin second to demand ischemia, no history of CAD, on beta- jeffery will continue to monitor 7. Aortic stenosis, severe, needs to be evaluated for TAVR 8. Severe COPD/severe pulmonary hypertension/chronic respiratory failure, and has been refusing to use her BiPAP, claustrophobic, encouraged her to use BiPAP, pulmonology consulted, recommend continued use of BiPAP 9. Hypertension, stable, on metoprolol, continue to monitor vitals. 10. Type 2 diabetes mellitus, sugars are fairly uncontrolled, metformin withheld, blood sugars uncontrolled,will increase Lantus to 8 units QHS and continue with Accu-Cheks with insulin sliding scale 11. Morbid obesity, BMI 46, diet recommended 12. DVT prophylaxis -SCDs on account of chronic GI bleed 13. CODE STATUS: Full code -discussed again with the patient Code Visit Inpatient E&M: 67258 Subs Hosp L2
[2018-01-18 16:46] LABS: Bedside Glucose 172 mg/dL (70-110)
--- NOTE | 2018-01-18 17:14 | PN.RENAL_ITS ---
Patient Problems: Active and Suspected Problems (Last Updated 01/02/18 @ 17:11 by David Mnotana MD) Diastolic CHF, acute on chronic (Acute) CKD stage 3 secondary to diabetes (Acute) Subjective: no new events - Physical Exam General: Alert, Oriented x3, Cooperative HEENT: Atraumatic, PERRLA, EOMI, Normocephalic Neck: Supple, No JVD, Negative Carotid Bruits Lungs: Clear to auscultation, Normal air movement Cardiovascular: Regular rate, No murmurs Abdomen: Bowel Sounds Present, Soft, Non Tender Extremities: No edema, Capillary Refill Less than 3 Seconds Skin: No rashes, No breakdown Musculoskeletal: No Tenderness to Palpation of Joints or Extremities Neurological: Cranial nerves II-XII grossly intact Psych/Mental Status: Normal Affect, Appropriate Vital Signs Temp Pulse Resp BP Pulse Ox 98 F 72 20 H 106/50 L 96 01/18/18 14:00 01/18/18 15:00 01/18/18 14:00 01/18/18 14:00 01/18/18 14:00 Oxygen Flow Rate (L/min) 6 Oxygen Delivery Method Nasal Cannula Weight: 110 kg Body Mass Index (BMI) 45.4 Intake and Output for Last 24 Hours 01/16/18 01/17/18 01/18/18 23:59 23:59 23:59 Intake Total 1060 / 1060 1100 / 1100 780 / 780 Output Total 1800 / 1800 1050 / 1050 300 / 300 Balance -740 / -740 50 / 50 480 / 480 Laboratory Tests Past 24 Hrs 01/18/18 01/18/18 07:06 07:06 WBC 14.2 H RBC 3.22 L Hgb 8.7 L Hct 31.8 L MCV 98.8 MCH 27.0 MCHC 27.4 L RDW 16.2 H RDW Differential 57.3 H Plt Count 428 MPV 9.7 Immature Gran % (Auto) 0.900 Neut % (Auto) 84.6 H Lymph % (Auto) 8.3 L [place] % (Auto) 3.5 Eos % (Auto) 2.4 Baso % (Auto) 0.3 Absolute Neuts (auto) 12.0 H Absolute Lymphs (auto) 1.18 Total Counted Not Reportable Sodium 138 Potassium 3.6 Chloride 92 L Carbon Dioxide 40.0 H Anion Gap 6 BUN 34 H Creatinine 1.16 H Estim Creat Clear Calc 37.86 Est GFR (MDRD) Af Amer 60 Est GFR (MDRD) Non-Af 49 L BUN/Creatinine Ratio 29.3 H Glucose 187 H Calcium 8.8 POC Glucose 01/18/18 01/18/18 01/18/18 16:39 12:07 06:43 POC Glucose 172 H 266 H 199 H 01/17/18 01/17/18 21:09 17:32 POC Glucose 250 H 228 H Medical Necessity - Tobacco Use Smoking Status: Former smoker Tobacco Use: Cigarettes Assessment/Plan All Active Problems (Last Updated 01/02/18 @ 17:11 by David Montana MD) Diastolic CHF, acute on chronic (Acute) CKD stage 3 secondary to diabetes (Acute) CVA (cerebral vascular accident) (Resolved) CVA (cerebral vascular accident) (Resolved) History of GI bleeding (Resolved) TANJA. She has normal creatinine at baseline. Acute kidney injury is most probably from over diuresing with resultant decrease effective volume. Creatinine improved with holding diuretics ( lasix and metolazone). Pt was kept on Diamox for metabolic alkalosis. Pt was then re started on lasix 40 g IV BID on 01/14 for lungs crackles Cr seems stable continue the same dose of diuretics for now Metabolic alkalosis. better. CHF with pulmonary HTN and continue lasix 40 mg IV BID. continue Diamox 250 mg BID Pt will be transfer to when be available
[2018-01-18] MEDS: Atorvastatin Calcium 10 MG Tablet PO (21:41)
[2018-01-18 22:20] LABS: Bedside Glucose 199 mg/dL (70-110)
[2018-01-18] MEDS: traZODone 100 MG Tablet PO (22:54)
[2018-01-19] VITALS (13 sets, daily range): BP systolic 101–126; BP diastolic 48–58; PULSE 68–88; RESP 16–22; TEMP 36.6–37; O2SAT 92–95
--- NOTE | 2018-01-19 01:13 | NURSING ---
RN KEEPS ENCOURAGING PATIENT TO WEAR BIPAP, PATIENT TOOK IT OFF AND PLACED NC BACK ON. WAS ABLE TO GET PATIENT TO PUT BIPAP BACK ON RIGHT NOW.
--- NOTE | 2018-01-19 01:54 | NURSING ---
PATIENT TOOK OFF BIPAP AGAIN. PLACED ON 6LNC
[2018-01-19] MEDS: 0.9% NaCl Peripheral Flush Adult/Peds IV ×2 (04:10→08:34)
[2018-01-19 07:01] LABS: Bedside Glucose 172 mg/dL (70-110)
--- NOTE | 2018-01-19 08:20 | PCM.PROGNOTE ---
Patient Problems: Active and Suspected Problems (Last Updated 01/02/18 @ 17:11 by David Montana MD) Diastolic CHF, acute on chronic (Acute) CKD stage 3 secondary to diabetes (Acute) Subjective: Patient did okay overnight. No acute issues were reported. Patient did refuse BiPAP for the evening. Patient is much more somnolent this morning, but able to open her eyes to voice. Patient denies any current chest pain, but feels that she slept weird leading to some lower back pain. Patient subjectively feels her lower extremities are unchanged. Patient continues to wait for a [facility] referral - Physical Exam General: - - RASS -2. No conversational dyspnea. Morbidly obese. HEENT: Atraumatic, PERRLA, EOMI, Normocephalic, - - No scleral icterus or injection noted. Oral: Moist Mucosa, No Gingival or Mucosal Lesions/ Ulcerations Neck: Supple, No JVD, No Nodes, Trachea Midline Lungs: No rhonchi, No wheeze, Diminished, Rales, - - Symmetric expansion. No dullness to percussion. Cardiovascular: Regular rate, Regular Rhythm, Normal S1, Normal S2, Murmur - Unchanged, No rub noted, No Gallop Abdomen: Bowel Sounds Present, Soft, Non Tender, Non-Distended, Obese Extremities: No cyanosis, Capillary Refill Less than 3 Seconds, Clubbing, Edema Skin: No rashes, No breakdown Musculoskeletal: No Tenderness to Palpation of Joints or Extremities Lymphatic: No Cervical, Supraclavicular, or Inguinal Adenopathy Neurological: Cranial nerves II-XII grossly intact, Neuro grossly intact, Motor Exam 5/5 strength throughout Psych/Mental Status: Flat Affect Vital Signs Temp Pulse Resp BP Pulse Ox 36.6 C 74 16 104/48 L 95 01/19/18 03:50 01/19/18 06:57 01/19/18 03:50 01/19/18 03:50 01/19/18 03:50 Oxygen Flow Rate (L/min) 6 Oxygen Delivery Method Nasal Cannula Weight: 111.7 kg Body Mass Index (BMI) 45.4 Intake and Output for Last 24 Hours 01/17/18 01/18/18 01/19/18 23:59 23:59 22:59 Intake Total 1100 / 1100 1020 / 1020 610 / 610 Output Total 1050 / 1050 900 / 900 700 / 700 Balance 50 / 50 120 / 120 -90 / -90 POC Glucose 01/19/18 01/18/18 01/18/18 06:56 21:37 16:39 POC Glucose 172 H 199 H 172 H 01/18/18 12:07 POC Glucose 266 H Medical Necessity - Tobacco Use Smoking Status: Former smoker Tobacco Use: Cigarettes Assessment/Plan All Active Problems (Last Updated 01/02/18 @ 17:11 by David Montana MD) Diastolic CHF, acute on chronic (Acute) CKD stage 3 secondary to diabetes (Acute) CVA (cerebral vascular accident) (Resolved) CVA (cerebral vascular accident) (Resolved) History of GI bleeding (Resolved) RECOMMENDATIONS: 1. Continue to encourage nasal CPAP with chinstrap 2. Await transfer to [facility] for possible TAVR 3. BiPAP with sleep and as needed 4. Wean oxygen as tolerated to keep saturations 90-94% 5. Increase activity as tolerated 6. Consider increased diuresis with goal of negative 250-500/day IMPRESSIONS: 1. Acute on chronic combined respiratory failure secondary to acute on chronic diastolic congestive heart failure Patient has been receiving significant diuresis over the course of the hospitalization. Patient has been diuresed over 15 L over the course of the hospitalization without accounting for incontinent episodes. Patient continues to have significant hypoxemia. I agree with transfer to [facility] for evaluation for possible valve replacement. Still awaiting bed placement. Continues to be highly variable on BiPAP compliance. Stressed to the patient that this does increase her risk for deterioration leading to intubation and emergent evaluation of aortic stenosis. Patient with poor insight into her overall condition. 2. Acute on chronic blood loss anemia Patient does have a history of GI AVMs in the past. Patient's hemoglobin is currently stable and acceptable. Transfuse to keep hemoglobin greater than 8 given cardiac condition. Patient is on a PPI at appropriate dosing. Doubt need for emergent endoscopy for evaluation. Likely recheck blood counts every 48-72 hours. Cannot exclude destruction of blood cells secondary to aortic stenosis as a secondary etiology given patient's lack of melena. 3. Aortic stenosis Exact morphology is unclear at this time. Some testing suggest severe disease and others suggest that intervention is not required. Patient has had multiple admissions over the last year secondary to fluid overload requiring diuresis of 10-12 L of fluid. Patient is approaching her baseline fluid status. Patient would benefit from outpatient evaluation to see if surgical intervention would be appropriate. If patient does not qualify for valve replacement, long-term prognosis is extremely guarded. 4. Morbid obesity/type 2 diabetes mellitus/hypertension/advanced age/acute sinusitis Complicates care, management, recovery and prognosis. Likely okay to continue with baseline medications. Patient with variable p.o. intake. Would avoid metformin given patient's renal function and active diuresis previously. Patient is on antibiotics for reported acute sinusitis. Code Visit Inpatient E&M: 65322 Subs Hosp L2
--- NOTE | 2018-01-19 08:26 | PN_ITS ---
Patient Problems: Active and Suspected Problems (Last Updated 01/02/18 @ 17:11 by David Montana MD) Diastolic CHF, acute on chronic (Acute) CKD stage 3 secondary to diabetes (Acute) Subjective: Patient did okay overnight. No acute issues were reported. Patient did refuse BiPAP for the evening. Patient is much more somnolent this morning, but able to open her eyes to voice. Patient denies any current chest pain, but feels that she slept weird leading to some lower back pain. Patient subjectively feels her lower extremities are unchanged. Patient continues to wait for a [facility] referral - Physical Exam General: - - RASS -2. No conversational dyspnea. Morbidly obese. HEENT: Atraumatic, PERRLA, EOMI, Normocephalic, - - No scleral icterus or injection noted. Oral: Moist Mucosa, No Gingival or Mucosal Lesions/ Ulcerations Neck: Supple, No JVD, No Nodes, Trachea Midline Lungs: No rhonchi, No wheeze, Diminished, Rales, - - Symmetric expansion. No dullness to percussion. Cardiovascular: Regular rate, Regular Rhythm, Normal S1, Normal S2, Murmur - Unchanged, No rub noted, No Gallop Abdomen: Bowel Sounds Present, Soft, Non Tender, Non-Distended, Obese Extremities: No cyanosis, Capillary Refill Less than 3 Seconds, Clubbing, Edema Skin: No rashes, No breakdown Musculoskeletal: No Tenderness to Palpation of Joints or Extremities Lymphatic: No Cervical, Supraclavicular, or Inguinal Adenopathy Neurological: Cranial nerves II-XII grossly intact, Neuro grossly intact, Motor Exam 5/5 strength throughout Psych/Mental Status: Flat Affect Vital Signs Temp Pulse Resp BP Pulse Ox 36.6 C 74 16 104/48 L 95 01/19/18 03:50 01/19/18 06:57 01/19/18 03:50 01/19/18 03:50 01/19/18 03:50 Oxygen Flow Rate (L/min) 6 Oxygen Delivery Method Nasal Cannula Weight: 111.7 kg Body Mass Index (BMI) 45.4 Intake and Output for Last 24 Hours 01/17/18 01/18/18 01/19/18 23:59 23:59 22:59 Intake Total 1100 / 1100 1020 / 1020 610 / 610 Output Total 1050 / 1050 900 / 900 700 / 700 Balance 50 / 50 120 / 120 -90 / -90 POC Glucose 01/19/18 01/18/18 01/18/18 06:56 21:37 16:39 POC Glucose 172 H 199 H 172 H 01/18/18 12:07 POC Glucose 266 H Medical Necessity - Tobacco Use Smoking Status: Former smoker Tobacco Use: Cigarettes Assessment/Plan All Active Problems (Last Updated 01/02/18 @ 17:11 by David Montana MD) Diastolic CHF, acute on chronic (Acute) CKD stage 3 secondary to diabetes (Acute) CVA (cerebral vascular accident) (Resolved) CVA (cerebral vascular accident) (Resolved) History of GI bleeding (Resolved) RECOMMENDATIONS: 1. Continue to encourage nasal CPAP with chinstrap 2. Await transfer to [facility] for possible TAVR 3. BiPAP with sleep and as needed 4. Wean oxygen as tolerated to keep saturations 90-94% 5. Increase activity as tolerated 6. Consider increased diuresis with goal of negative 250-500/day IMPRESSIONS: 1. Acute on chronic combined respiratory failure secondary to acute on chronic diastolic congestive heart failure Patient has been receiving significant diuresis over the course of the hospitalization. Patient has been diuresed over 15 L over the course of the hospitalization without accounting for incontinent episodes. Patient continues to have significant hypoxemia. I agree with transfer to [facility] for evaluation for possible valve replacement. Still awaiting bed placement. Continues to be highly variable on BiPAP compliance. Stressed to the patient that this does increase her risk for deterioration leading to intubation and emergent evaluation of aortic stenosis. Patient with poor insight into her overall condition. 2. Acute on chronic blood loss anemia Patient does have a history of GI AVMs in the past. Patient's hemoglobin is currently stable and acceptable. Transfuse to keep hemoglobin greater than 8 given cardiac condition. Patient is on a PPI at appropriate dosing. Doubt need for emergent endoscopy for evaluation. Likely recheck blood counts every 48-72 hours. Cannot exclude destruction of blood cells secondary to aortic stenosis as a secondary etiology given patient's lack of melena. 3. Aortic stenosis Exact morphology is unclear at this time. Some testing suggest severe disease and others suggest that intervention is not required. Patient has had multiple admissions over the last year secondary to fluid overload requiring diuresis of 10-12 L of fluid. Patient is approaching her baseline fluid status. Patient would benefit from outpatient evaluation to see if surgical intervention would be appropriate. If patient does not qualify for valve repla cement, long-term prognosis is extremely guarded. 4. Morbid obesity/type 2 diabetes mellitus/hypertension/advanced age/acute sinusitis Complicates care, management, recovery and prognosis. Likely okay to continue with baseline medications. Patient with variable p.o. intake. Would avoid metformin given patient's renal function and active diuresis previously. Patient is on antibiotics for reported acute sinusitis. Code Visit Inpatient E&M: 95487 Subs Hosp L2
[2018-01-19] MEDS: Ferrous Sulfate 325 MG Tablet PO ×3 (08:32→17:08)
[2018-01-19] MEDS: Insulin Lispro 100 UNIT/ML INSULN.PEN SQ ×4 (08:32→21:53)
[2018-01-19] MEDS: Furosemide 40 MG/4 ML Vial IV ×2 (08:33→17:08)
[2018-01-19] MEDS: Fluticasone 0.05% 1 SPRAY NASAL.SRY NASAL ×2 (08:33→21:55)
[2018-01-19] MEDS: AcetaZOLAMIDE 250 MG Tablet PO ×2 (08:33→21:52)
[2018-01-19] MEDS: Metoprolol Tartrate 50 MG Tablet PO ×2 (08:34→21:55)
[2018-01-19] MEDS: Pantoprazole Sodium 40 MG Tablet PO ×2 (08:34→21:54)
[2018-01-19] MEDS: Sodium Chloride 0.65% 1 SPRAY SPRAY.BTL 2 SPRAY NASAL (08:35)
--- NOTE | 2018-01-19 08:40 | PCM.PN.CARD ---
Subjectve: Patient seen and evaluated. Appears to be stable. Sitting in chair with nasal oxygen. Objective: Vital Signs Temp Pulse Resp BP Pulse Ox 97.8 F 73 16 104/48 L 95 01/19/18 03:50 01/19/18 08:34 01/19/18 03:50 01/19/18 03:50 01/19/18 03:50 Oxygen Flow Rate (L/min) 6 Oxygen Delivery Method Nasal Cannula Weight: 246 lb 4.101 oz Body Mass Index (BMI) 45.4 Intake and Output for Last 24 Hours 01/17/18 01/18/18 01/19/18 23:59 23:59 22:59 Intake Total 1100 / 1100 1020 / 1020 610 / 610 Output Total 1050 / 1050 900 / 900 700 / 700 Balance 50 / 50 120 / 120 -90 / -90 General: No Acute Distress HEENT: PERRL, EOMI, Sclera Non Icteric Oral: Moist Mucosa Neck: Supple, Good ROM, No Lymph Node Enlargement Lungs: Clear to auscultation Cardiovascular: Regular Rhythm, Normal S1, Normal S2, No Rubs, No Gallops Murmur Murmur: Grade 3/6, Harsh, Mid Systolic, LLSB, LVOT, Sternal Notch Vascular: No Carotid Bruits, Normal Femoral Pulses, Normal Radial Pulses, Normal Dorsalis Pedal Pulse, Normal Posterior Tibial Pulses Abdomen: Bowel Sounds Present, Soft, Non Tender, No HSM, No Organomegaly Extremities: No Cyanosis, No Clubbing, No edema Neurological: No Focal Motor or Sensory Deficit Rhythm: EKG: ECHO: Stress Test: Cardiac Cath: PCI: CT Surgery: Holter monitor: EPS: PPM: CXR: Chest CT Scan: Medical Necessity - Tobacco Use Smoking Status: Former smoker Tobacco Use: Cigarettes Assessment/Plan 1. Acute on chronic diastolic mediated CHF At the present time patient presents with findings compatible with acute on chronic diastolic mediated CHF. The patient has resumed IV diuretic therapy. She continues on Diamox therapy. Her last BMP noted some improvement in her CO2 level. She will continue oxygen support. She is attempting BiPAP therapy. However, she has not been able to wear BiPAP all the time. She was encouraged to continue to wear this as much as possible. 2. Aortic valve stenosis She does have a history of aortic valve stenosis. He has been evaluated at the [facility] Main campus for her aortic valve stenosis for consideration for TAVR thus far they have not proceeded with this procedure.A follow-up transthoracic echocardiogram was performed. Her aortic valve, is not well visualized, however, spectral Doppler suggest moderately severe aortic valve stenosis. 3. Pulmonary hypertension This may be secondary to not only her cardiovascular disease but her pulmonary disease with her COPD, etc. He will need continued pulmonary support and medical therapy which does include her diuretic therapy. However, there is concern with respect to her diabetic therapy and her subsequent acid-base status. 4. Hyperlipidemia She will continue lipid-lowering therapy as deemed appropriate. 5. Hypertension She will continue antihypertensive therapy with adjustment as needed. No changes at this particular time since yesterday's evaluation. Overall she will continue to new medical therapy. Again she is pending transfer to [facility] for further tertiary care center cardiopulmonary evaluation. Thank you for allowing me to participate in the care of your patient. Please don't hesitate to call if any issues arise
--- NOTE | 2018-01-19 08:55 | PCM.PN.HOSP ---
Patient Problems: Active and Suspected Problems (Last Updated 01/02/18 @ 17:11 by David Montana MD) Diastolic CHF, acute on chronic (Acute) CKD stage 3 secondary to diabetes (Acute) Subjective: Waiting on [facility] for bed transfer. Patient does not want to be transferred anywhere else. Using Bipap intermittently; shortly. Objective: Physical exam: General: Alert, Oriented x3, Cooperative, - - Mild respiratory distress, on 6 L of oxygen, obese HEENT: Atraumatic, PERRLA, EOMI, Normocephalic Oral: Moist Mucosa Neck: Supple, No JVD, Negative Carotid Bruits Lungs: Normal air movement, Diminished Cardiovascular: Regular rate, Regular Rhythm, Normal S1, Normal S2, Murmur - Holosystolic murmur Abdomen: Bowel Sounds Present, Soft, Non Tender, Non-Distended, No Hepato-splenomegaly Extremities: Edema - Bilateral +2 pitting, nontender, chronic venous stasis Skin: No rashes, No breakdown Musculoskeletal: No Tenderness to Palpation of Joints or Extremities Lymphatic: No Cervical, Supraclavicular, or Inguinal Adenopathy Neurological: Cranial nerves II-XII grossly intact Psych/Mental Status: Normal Affect, Appropriate Vitals/I&O's: Vital Signs Temp Pulse Resp BP Pulse Ox 97.8 F 73 16 104/48 L 95 01/19/18 03:50 01/19/18 08:34 01/19/18 03:50 01/19/18 03:50 01/19/18 03:50 Oxygen Flow Rate (L/min) 6 Oxygen Delivery Method Nasal Cannula Weight: 111.7 kg Body Mass Index (BMI) 45.4 Intake and Output for Last 24 Hours 01/17/18 01/18/18 01/19/18 23:59 23:59 22:59 Intake Total 1100 / 1100 1020 / 1020 610 / 610 Output Total 1050 / 1050 900 / 900 700 / 700 Balance 50 / 50 120 / 120 -90 / -90 Laboratory Results 01/18/18 12:07: POC Glucose 266 H 01/18/18 16:39: POC Glucose 172 H 01/18/18 21:37: POC Glucose 199 H 01/19/18 06:56: POC Glucose 172 H Current Medications Acetaminophen (Tylenol) 650 mg PO Q6H PRN PRN PRN Reason: Mild Pain (scale 0-3)/T>100.7 Last Admin: 01/14/18 15:35 Dose: 650 mg Hydrocodone Bitart/Acetaminophen (Harbert 5mg-325mg) 1 - 2 tablet PO Q6H PRN PRN PRN Reason: Moderate-severe pain Acetazolamide (Diamox) 250 mg PO BID [facility] Last Admin: 01/19/18 08:33 Dose: 250 mg Albuterol Sulfate (Ventolin Aerosols) 2.5 mg INHALATION Q2H PRN PRN PRN Reason: Shortness of breath, wheezing Last Admin: 01/12/18 20:36 Dose: 2.5 mg Albuterol/Ipratropium (Duoneb) 3 ml INHALATION Q4H.RT [facility] Last Admin: 01/19/18 06:55 Dose: Not Given Atorvastatin Calcium (Lipitor) 10 mg PO QHS [facility] Last Admin: 01/18/18 21:41 Dose: 10 mg Escitalopram Oxalate (Lexapro) 10 mg PO DAILY [facility] Last Admin: 01/18/18 09:53 Dose: 10 mg Ferrous Sulfate (Ferrous Sulfate) 325 mg PO TIDCM [facility] Last Admin: 01/19/18 08:32 Dose: 325 mg Flunisolide (Nasarel Nose [place]el [place]st) 2 spray NASAL BID [facility] Last Admin: 01/19/18 08:34 Dose: Not Given Fluticasone Propionate (Flonase Nasal Hazel Hurst) 1 spray NASAL BID [facility] Last Admin: 01/19/18 08:33 Dose: 1 spray Furosemide (Lasix) 40 mg IV BID@1000,1800 [facility] Last Admin: 01/19/18 08:33 Dose: 40 mg Hydralazine HCl (Apresoline Iv) 10 mg IV Q4H PRN PRN PRN Reason: SBP > 160 Insulin Glargine (Lantus (Bkc)) 8 units SC QHS [facility] Last Admin: 01/18/18 21:42 Dose: 8 units Insulin Human Lispro (Humalog Kwikpen (Bkc)) 0 unit SQ ACHS [facility]; Protocol Last Admin: 01/19/18 08:32 Dose: 3 units Magnesium Hydroxide (Milk Of Magnesia) 30 ml PO DAILY PRN PRN Reason: Constipation Last Admin: 01/14/18 09:33 Dose: 30 ml Metoprolol Tartrate (Lopressor (Beta Jeffery)) 50 mg PO BID [facility] Last Admin: 01/19/18 08:34 Dose: 50 mg Morphine Sulfate () 1 - 2 mg IV Q4H PRN PRN PRN Reason: PAIN Nitroglycerin (Nitrostat) 0.4 mg SUBLINGUAL Q5M PRN PRN Reason: Angina pain Ondansetron HCl (Zofran) 4 mg IV Q8H PRN PRN PRN Reason: Nausea Last Admin: 01/16/18 23:59 Dose: 4 mg Pantoprazole Sodium (Protonix) 40 mg PO BID [facility] Last Admin: 01/19/18 08:34 Dose: 40 mg Potassium Chloride (K-Dur) 20 meq PO DAILYCM [facility] Last Admin: 01/19/18 08:33 Dose: 20 meq Sodium Chloride () 5 - 30 ml IV UD PRN PRN Reason: SALINE FLUSH Last Admin: 01/19/18 08:34 Dose: 10 ml Sodium Chloride (Java Nasal Hazel Hurst) 2 spray NASAL TID PRN PRN PRN Reason: NASAL DRYNESS Last Admin: 01/19/18 08:35 Dose: 2 spray Trazodone HCl (Desyrel) 100 mg PO QHS PRN PRN PRN Reason: SLEEP Last Admin: 01/18/18 22:54 Dose: 100 mg Medical Necessity - Tobacco Use Smoking Status: Former smoker Tobacco Use: Cigarettes Assessment/Plan All Active Problems (Last Updated 01/02/18 @ 17:11 by David Montana MD) Diastolic CHF, acute on chronic (Acute) CKD stage 3 secondary to diabetes (Acute) CVA (cerebral vascular accident) (Resolved) CVA (cerebral vascular accident) (Resolved) History of GI bleeding (Resolved) 67 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 1. Acute on chronic hypoxic respiratory failure, on 6L of oxygen, secondary to acute on chronic diastolic CHF, acute on chronic anemia, continue on breathing treatments,wean off oxygen, encourage incentive spirometer, encourage use of BiPAP 2. Acute on chronic diastolic CHF, unclear etiology for this, likely a combination of acute on chronic anemia, severe aortic stenosis, on Lasix 40 mg IV twice daily, diuresing well, bicarbonate better with use of BiPAP 3. Acute metabolic alkalosis secondary to contraction alkalosis/chronic COPD retention, on Diamox, bicarbonate is better with use of BiPAP encourage patient to use BiPAP, will continue to monitor BMP 4. Acute on chronic anemia, history of AVMs, chronic anemia, iron deficient, on oral iron, status post 3 units packed RBC, Hemoglobin is stable 5. Acute sinusitis, completed antibiotics 6. Indeterminate troponin second to demand ischemia, no history of CAD, on beta-jeffery will continue to monitor 7. Aortic stenosis, severe, needs to be evaluated for TAVR 8. Severe COPD/severe pulmonary hypertension/chronic respiratory failure, and has been refusing to use her BiPAP, claustrophobic, encouraged her to use BiPAP, pulmonology consulted, recommend continued use of BiPAP 9. Hypertension, stable, on metoprolol, continue to monitor vitals. 10. Type 2 diabetes mellitus, sugars are fairly uncontrolled, metformin withheld, blood sugars uncontrolled,will increase Lantus to 8 units QHS and continue with Accu-Cheks with insulin sliding scale 11. Morbid obesity, BMI 46, diet recommended 12. DVT prophylaxis -SCDs on account of chronic GI bleed 13. CODE STATUS: Full code -discussed again with the patient Code Visit Inpatient E&M: 18498 Subs Hosp L2
[2018-01-19 12:00] LABS: Bedside Glucose 168 mg/dL (70-110)
[2018-01-19 17:16] LABS: Bedside Glucose 159 mg/dL (70-110)
--- NOTE | 2018-01-19 18:20 | NURSING ---
1745- this RN assuming care of pt at this time.
[2018-01-19] MEDS: Ipratropium/Albuterol Sulfate 3 ML AMPUL.NEB INHALATION (19:39)
[2018-01-19] MEDS: traZODone 100 MG Tablet PO (21:52)
[2018-01-19] MEDS: Atorvastatin Calcium 10 MG Tablet PO (21:54)
[2018-01-19 22:26] LABS: Bedside Glucose 276 mg/dL (70-110)
[2018-01-20] VITALS (15 sets, daily range): BP systolic 103–123; BP diastolic 52–65; PULSE 65–83; RESP 16–18; TEMP 36.5–37.1; O2SAT 90–96
[2018-01-20 06:47] LABS: Anion Gap 10 (5-15); BUN 31 mg/dL (7-18); BUN/Creat Ratio 29.8 RATIO (10-20); Calcium,Total 8.3 mg/dL (8.5-10.1); Chloride 96 mmol/L (98-107); Creatinine, Serum 1.04 mg/dL (0.55-1.02); EST Glomerular Filtration Rate 56 mL/min (>60); Est Glom Filt Rate - Afr Amer 67 mL/min (>60); Estimated Creatinine Clearance 42.23 ml/min; Glucose 142 mg/dL (74-106); Potassium 3.9 mmol/L (3.5-5.1); Sodium Level 136 mmol/L (136-145)
[2018-01-20 06:53] LABS: Absolute Lymphocyte Count 0.66 X10^3/ul (0.83-4.51); Absolute Neutrophil Count 10.4 X10^3/uL (2.0-7.7); Basophil# 0.03 X10^3/uL; Basophil% 0.2 % (0-1); Eosinophil# 0.38 X10^3/uL; Hematocrit 30.2 % (37-47); Hemoglobin 8.4 g/dl (12.0-15.0); Lymphocyte # 0.66 X10^3/ul (4.0); Lymphocyte % 5.2 % (19-41); Mean Corp Hgb Conc 27.8 g/gl (32-36); Mean Corpuscular Hgb 27.3 pg (27.0-32.0); Mean Corpuscular Volume 98.1 fL (81-99); Mean Platelet Vol. 9.6 fl (6.2-12.0); Monocyte# 1.03 X10^3/uL; Monocyte% 8.1 % (0-10); Neutrophil % 82.4 % (47-70); Platelet Count 425 K/mm3 (150-450); RBC Distribution Width CV 16.4 % (11.6-14.6); RBC Distribution Width SD 56.9 fl (35.1-43.9); Red Blood Count 3.08 M/mm3 (4.2-5.4); White Blood Count 12.6 K/mm3 (4.4-11.0)
[2018-01-20 06:56] LABS: POSITIVE COUNT NO; POSITIVE DIFFERENTIAL NO; POSITIVE MORPHOLOGY NO
[2018-01-20 07:10] LABS: Bedside Glucose 161 mg/dL (70-110)
[2018-01-20] MEDS: Ipratropium/Albuterol Sulfate 3 ML AMPUL.NEB INHALATION ×3 (07:28→18:40)
--- NOTE | 2018-01-20 08:00 | CASEMGMT ---
Pt has been waiting on bed at [facility] since transfer was initiated on 01/15/18. Mateusz, [employer] driver, is calling again at this time to clarify bed situation. Ander UNDERWOOD CM
[2018-01-20] MEDS: 0.9% NaCl Peripheral Flush Adult/Peds IV (08:21)
[2018-01-20] MEDS: Insulin Lispro 100 UNIT/ML INSULN.PEN SQ ×4 (08:21→21:01)
[2018-01-20] MEDS: Sodium Chloride 0.65% 1 SPRAY SPRAY.BTL 2 SPRAY NASAL (08:22)
[2018-01-20] MEDS: Fluticasone 0.05% 1 SPRAY NASAL.SRY NASAL ×2 (08:22→21:00)
[2018-01-20] MEDS: Furosemide 40 MG/4 ML Vial IV (08:22)
[2018-01-20] MEDS: AcetaZOLAMIDE 250 MG Tablet PO ×2 (08:22→21:02)
[2018-01-20] MEDS: Ferrous Sulfate 325 MG Tablet PO ×3 (08:22→17:04)
[2018-01-20] MEDS: Pantoprazole Sodium 40 MG Tablet PO ×2 (08:23→21:03)
[2018-01-20] MEDS: Escitalopram Oxalate 10 MG Tablet PO (08:23)
[2018-01-20] MEDS: Metoprolol Tartrate 50 MG Tablet PO ×2 (08:23→21:02)
--- NOTE | 2018-01-20 08:30 | PCM.PROGNOTE ---
Patient Problems: Active and Suspected Problems (Last Updated 01/02/18 @ 17:11 by David Montana MD) Diastolic CHF, acute on chronic (Acute) CKD stage 3 secondary to diabetes (Acute) Subjective: The patient was seen and examined at the bedside this morning. Events from the last 24 hours have been reviewed. The patient is currently afebrile, hemodynamically stable and maintaining appropriate oxygen saturations on 6 L/min via nasal cannula. The patient was documented to be net -470 mL's yesterday. She is now overall net -16 L for the admission. She is still awaiting transfer to the [facility]. Objective: The patient's most recent lab work, culture data and imaging studies have all been personally reviewed. - Physical Exam General: Cooperative, No apparent distress HEENT: Atraumatic, PERRLA, Normocephalic Oral: No Gingival or Mucosal Lesions/ Ulcerations Neck: Supple, No Nodes, Trachea Midline Lungs: No rhonchi, No wheeze, No rales, Diminished Cardiovascular: Regular rate, Regular Rhythm, Normal S1, Normal S2, Murmur Abdomen: Bowel Sounds Present, Soft, Non Tender, Obese Extremities: No clubbing, No cyanosis, Edema Skin: No breakdown Musculoskeletal: No Tenderness to Palpation of Joints or Extremities Lymphatic: No Cervical, Supraclavicular, or Inguinal Adenopathy Neurological: Neuro grossly intact Psych/Mental Status: Flat Affect Vital Signs Temp Pulse Resp BP Pulse Ox 98.3 F 73 18 122/55 H 90 01/20/18 03:32 01/20/18 08:23 01/20/18 07:29 01/20/18 03:32 01/20/18 07:29 Oxygen Flow Rate (L/min) 6 Oxygen Delivery Method Nasal Cannula Weight: 245 lb 2.464 oz Body Mass Index (BMI) 45.4 Intake and Output for Last 24 Hours 01/19/18 01/19/18 01/20/18 00:59 23:59 23:59 Intake Total Output Total 300 / 300 Balance -300 / -300 Laboratory Tests Past 24 Hrs 01/20/18 01/20/18 05:50 05:50 WBC 12.6 H RBC 3.08 L Hgb 8.4 L Hct 30.2 L MCV 98.1 MCH 27.3 MCHC 27.8 L RDW 16.4 H RDW Differential 56.9 H Plt Count 425 MPV 9.6 Immature Gran % (Auto) 1.100 H Neut % (Auto) 82.4 H Lymph % (Auto) 5.2 L Cataño % (Auto) 8.1 Eos % (Auto) 3.0 Baso % (Auto) 0.2 Absolute Neuts (auto) 10.4 H Absolute Lymphs (auto) 0.66 L Total Counted Not Reportable Sodium 136 Potassium 3.9 Chloride 96 L Carbon Dioxide 30.0 Anion Gap 10 BUN 31 H Creatinine 1.04 H Estim Creat Clear Calc 42.23 Est GFR (MDRD) Af Amer 67 Est GFR (MDRD) Non-Af 56 L BUN/Creatinine Ratio 29.8 H Glucose 142 H Calcium 8.3 L POC Glucose 01/20/18 01/19/18 01/19/18 06:48 21:45 17:05 POC Glucose 161 H 276 H 159 H 01/19/18 11:54 POC Glucose 168 H Clinical Impression(s) from Imaging Studies Chest X-Ray 01/02/18 15:13 IMPRESSION: Mild perihilar interstitial and vascular prominence in the lungs may be related to technique. Differential considerations include mild CHF, or mild pneumonitis. There is no focal infiltrate and no visible effusion. Electronically Signed: Ron Novoa at 15:37 EDT Tel , Service support , Chest X-Ray 01/07/18 05:55 IMPRESSION: Findings suggestive of a mild degree of CHF. Electronically Signed: Jonah Conner MD at 12:02 EDT Tel [phone], Service support , Medical Necessity - Tobacco Use Smoking Status: Former smoker Tobacco Use: Cigarettes Assessment/Plan All Active Problems (Last Updated 01/02/18 @ 17:11 by David Montana MD) Diastolic CHF, acute on chronic (Acute) CKD stage 3 secondary to diabetes (Acute) CVA (cerebral vascular accident) (Resolved) CVA (cerebral vascular accident) (Resolved) History of GI bleeding (Resolved) RECOMMENDATIONS: 1. Continue nocturnal Pap therapy as ordered. 2. Wean oxygen as tolerated. 3. Continue diuretic regimen. 4. Encourage incentive spirometer use. 5. Awaiting transfer to [facility]. IMPRESSIONS: 1. Acute on chronic combined respiratory failure secondary to acute on chronic diastolic congestive heart failure Patient has been receiving significant diuresis over the course of the hospitalization. Patient has been diuresed over 15+ L over the course of the hospitalization without accounting for incontinent episodes. Patient continues to have significant hypoxemia. I agree with transfer to [facility] for evaluation for possible valve replacement. Still awaiting bed placement. Continues to be highly variable on BiPAP compliance. Stressed to the patient that this does increase her risk for deterioration leading to intubation and emergent evaluation of aortic stenosis. Patient with poor insight into her overall condition. 2. Acute on chronic blood loss anemia Patient does have a history of GI AVMs in the past. Patient's hemoglobin is currently stable and acceptable. Transfuse to keep hemoglobin greater than 8 given cardiac condition. Patient is on a PPI at appropriate dosing. 3. Aortic stenosis Exact morphology is unclear at this time. Some testing suggest severe disease and others suggest that intervention is not required. Patient has had multiple admissions over the last year secondary to fluid overload requiring diuresis of 10-12 L of fluid. Patient is approaching her baseline fluid status. Patient would benefit from outpatient evaluation to see if surgical intervention would be appropriate. If patient does not qualify for valve replacement, long-term prognosis is extremely guarded. 4. Morbid obesity/type 2 diabetes mellitus/hypertension/advanced age/acute sinusitis Complicates care, management, recovery and prognosis. Likely okay to continue with baseline medications. This note was generated with [employer] dictation software. It may contain incorrect words, spelling, and punctuation that were not noted in checking the note before signing. Code Visit Inpatient E&M: 20449 Subs Hosp L2
--- NOTE | 2018-01-20 08:33 | PN_ITS ---
Patient Problems: Active and Suspected Problems (Last Updated 01/02/18 @ 17:11 by David Montana MD) Diastolic CHF, acute on chronic (Acute) CKD stage 3 secondary to diabetes (Acute) Subjective: The patient was seen and examined at the bedside this morning. Events from the last 24 hours have been reviewed. The patient is currently afebrile, hemodynamically stable and maintaining appropriate oxygen saturations on 6 L/min via nasal cannula. The patient was documented to be net -470 mL's yesterday. She is now overall net -16 L for the admission. She is still awaiting transfer to the [place]. Objective: The patient's most recent lab work, culture data and imaging studies have all be en personally reviewed. - Physical Exam General: Cooperative, No apparent distress HEENT: Atraumatic, PERRLA, Normocephalic Oral: No Gingival or Mucosal Lesions/ Ulcerations Neck: Supple, No Nodes, Trachea Midline Lungs: No rhonchi, No wheeze, No rales, Diminished Cardiovascular: Regular rate, Regular Rhythm, Normal S1, Normal S2, Murmur Abdomen: Bowel Sounds Present, Soft, Non Tender, Obese Extremities: No clubbing, No cyanosis, Edema Skin: No breakdown Musculoskeletal: No Tenderness to Palpation of Joints or Extremities Lymphatic: No Cervical, Supraclavicular, or Inguinal Adenopathy Neurological: Neuro grossly intact Psych/Mental Status: Flat Affect Vital Signs Temp Pulse Resp BP Pulse Ox 98.3 F 73 18 122/55 H 90 01/20/18 03:32 01/20/18 08:23 01/20/18 07:29 01/20/18 03:32 01/20/18 07:29 Oxygen Flow Rate (L/min) 6 Oxygen Delivery Method Nasal Cannula Weight: 245 lb 2.464 oz Body Mass Index (BMI) 45.4 Intake and Output for Last 24 Hours 01/19/18 01/19/18 01/20/18 00:59 23:59 23:59 Intake Total Output Total 300 / 300 Balance -300 / -300 Laboratory Tests Past 24 Hrs 01/20/18 01/20/18 05:50 05:50 WBC 12.6 H RBC 3.08 L Hgb 8.4 L Hct 30.2 L MCV 98.1 MCH 27.3 MCHC 27.8 L RDW 16.4 H RDW Differential 56.9 H Plt Count 425 MPV 9.6 Immature Gran % (Auto) 1.100 H Neut % (Auto) 82.4 H Lymph % (Auto) 5.2 L Garza % (Auto) 8.1 Eos % (Auto) 3.0 Baso % (Auto) 0.2 Absolute Neuts (auto) 10.4 H Absolute Lymphs (auto) 0.66 L Total Counted Not Reportable Sodium 136 Potassium 3.9 Chloride 96 L Carbon Dioxide 30.0 Anion Gap 10 BUN 31 H Creatinine 1.04 H Estim Creat Clear Calc 42.23 Est GFR (MDRD) Af Amer 67 Est GFR (MDRD) Non-Af 56 L BUN/Creatinine Ratio 29.8 H Glucose 142 H Calcium 8.3 L POC Glucose 01/20/18 01/19/18 01/19/18 06:48 21:45 17:05 POC Glucose 161 H 276 H 159 H 01/19/18 11:54 POC Glucose 168 H Clinical Impression(s) from Imaging Studies Chest X-Ray 01/02/18 15:13 IMPRESSION: Mild perihilar interstitial and vascular prominence in the lungs may be related to technique. Differential considerations include mild CHF, or mild pneumonitis. There is no focal infiltrate and no visible effusion. Electronically Signed: Ron Novoa at 15:37 EDT Tel , Service support , Chest X-Ray 01/07/18 05:55 IMPRESSION: Findings suggestive of a mild degree of CHF. Electronically Signed: Jonah Conner MD at 12:02 EDT Tel [phone], Service support , Medical Necessity - Tobacco Use Smoking Status: Former smoker Tobacco Use: Cigarettes Assessment/Plan All Active Problems (Last Updated 01/02/18 @ 17:11 by David Montana MD) Diastolic CHF, acute on chronic (Acute) CKD stage 3 secondary to diabetes (Acute) CVA (cerebral vascular accident) (Resolved) CVA (cerebral vascular accident) (Resolved) History of GI bleeding (Resolved) RECOMMENDATIONS: 1. Continue nocturnal Pap therapy as ordered. 2. Wean oxygen as tolerated. 3. Continue diuretic regimen. 4. Encourage incentive spirometer use. 5. Awaiting transfer to [facility]. IMPRESSIONS: 1. Acute on chronic combined respiratory failure secondary to acute on chronic diastolic congestive heart failure Patient has been receiving significant diuresis over the course of the hospitalization. Patient has been diuresed over 15+ L over the course of the hospitalization without accounting for incontinent episodes. Patient continues to have significant hypoxemia. I agree with transfer to [place] for evaluation for possible valve replacement. Still awaiting bed placement. Continues to be highly variable on BiPAP compliance. Stressed to the patient that this does increase her risk for deterioration leading to intubation and emergent evaluation of aortic stenosis. Patient with poor insight into her overall condition. 2. Acute on chronic blood loss anemia Patient does have a history of GI AVMs in the past. Patient's hemoglobin is currently stable and acceptable. Transfuse to keep hemoglobin greater than 8 given cardiac condition. Patient is on a PPI at appropriate dosing. 3. Aortic stenosis Exact morphology is unclear at this time. Some testing suggest severe disease and others suggest that intervention is not required. Patient has had multiple admissions over the last year secondary to fluid overload requiring diuresis of 10-12 L of fluid. Patient is approaching her baseline fluid status. Patient w ould benefit from outpatient evaluation to see if surgical intervention would be appropriate. If patient does not qualify for valve replacement, long-term prognosis is extremely guarded. 4. Morbid obesity/type 2 diabetes mellitus/hypertension/advanced age/acute sinusitis Complicates care, management, recovery and prognosis. Likely okay to continue with baseline medications. This note was generated with [employer] dictation software. It may contain incorrect words, spelling, and punctuation that were not noted in checking the note before signing. Code Visit Inpatient E&M: 24029 Subs Hosp L2
--- NOTE | 2018-01-20 09:13 | CASEMGMT ---
Addendum entered by Nunu Wilkins 01/20/18 15:24: This RN CM did not receive call back from Sasha at [facility] so called placed back to [facility] at [facility] transfer center and per transfer center, Sasha left for the day. Per transfer recreation center director, there is still no bed available for pt at this time. This RN CM then requested to speak with 2nd shift work leader at this time and per rep, that is Sadiq. Per Sadiq, they are 'really busy and they are working their hardest to get pt transferred at this time.' Dr. Levine, Fernanda RN, and Mateusz, secretary bookkeeper, updated at this time, voice understanding. Ander UNDERWOOD CM Original Note: Addendum entered by Nunu Wilkins 01/20/18 11:04: Call back to [facility] transfer center and per rep, pt does not have a bed and he can't tell me when she will. This RN CM requested to speak with transfer director community center at this time as pt has been waiting on a bed for 6 days and we have been getting conflicting stories of what floor pt needs to be placed on at [facility]. This RN CM was transferred to [facility], [facility] lead, and she states that pt is the only one awaiting cardiac ICU bed at this time and she is aware that pt's bipap is intermittent but states that any bipap pt's must go to ICU there. She messaged bed control RN for [facility] and states that the bed control RN is working on moving pt's and that she will call this RN CM back directly after 1300 with an update. Sasha confirms that pt is high priority for bed placement at this time. Sasha offers apologies for delay in bed attainment at this time. Ander RN WHITLEY Original Note: Call to [facility] transfer center to advised them of intertmittent bipap as Abi RN was stating that they told her, pt had to go to ICU there d/t bipap and this RN CM advised transfer center that pt has been on bipap, intermittently and according to charting has not been on since saturday am, voices understanding. Per transfer center, the pt is a high priority for transfer at this time and she advises for [facility] to call back in about 1-2 hours for bed assignment. Beverly, PCU charge, Mateusz, secretary bookkeeper, and Dr. Levine all aware at this time, voice understanding. Ander UNDERWOOD CM
--- NOTE | 2018-01-20 15:49 | PCM.PN.HOSP ---
Patient Problems: Active and Suspected Problems (Last Updated 01/02/18 @ 17:11 by David Montana MD) Diastolic CHF, acute on chronic (Acute) CKD stage 3 secondary to diabetes (Acute) Subjective: Patient seen and examined. She had no complaints and was comfortable in bed. She denied any fever or chills, any cough or chest pain, any shortness of breath, abdominal pain, any diarrhea or vomiting. She was on 6 L of oxygen which is her baseline. Patient is awaiting transfer to [facility] for aortic valve replacement. However she has been waiting for bed for several days. Today there was still unable to get a bed for her. Patient counseled that she has consider other options including transfer to other hospitals as all this while she has been insistent that she wants to go to [facility]. Vitals/I&O's: Vital Signs Temp Pulse Resp BP Pulse Ox 98.2 F 77 18 103/52 L 94 01/20/18 09:30 01/20/18 10:55 01/20/18 09:30 01/20/18 09:30 01/20/18 09:30 Oxygen Flow Rate (L/min) 6 Oxygen Delivery Method Nasal Cannula Weight: 245 lb 2.464 oz Body Mass Index (BMI) 45.4 Intake and Output for Last 24 Hours 01/19/18 01/19/18 01/20/18 00:59 23:59 23:59 Intake Total 250 / 250 Output Total 900 / 900 Balance -650 / -650 General: Alert, Oriented x3, Cooperative, No apparent distress HEENT: Atraumatic, PERRLA, EOMI, Normocephalic Oral: Moist Mucosa Neck: Supple, No JVD, Negative Carotid Bruits Lungs: - - mildly decreased breath sounds bibasally. No wheezes or crackles Cardiovascular: Regular rate, Regular Rhythm, Normal S1, Normal S2, - - grade 3-4 ejection systolic murmur loudest in the aortic region Abdomen: Bowel Sounds Present, Soft, Non Tender, Non-Distended, No Hepato-splenomegaly Extremities: No clubbing, No cyanosis, No edema, Capillary Refill Less than 3 Seconds Skin: No rashes, No breakdown Musculoskeletal: No Tenderness to Palpation of Joints or Extremities Lymphatic: No Cervical, Supraclavicular, or Inguinal Adenopathy Neurological: Cranial nerves II-XII grossly intact, Neuro grossly intact, Motor Exam 5/5 strength throughout Psych/Mental Status: Normal Affect, Appropriate, Alert and oriented to time, place, person, mood and affect Laboratory Results 01/19/18 17:05: POC Glucose 159 H 01/19/18 21:45: POC Glucose 276 H 01/20/18 05:50: WBC 12.6 H, RBC 3.08 L, Hgb 8.4 L, Hct 30.2 L, MCV 98.1, MCH 27.3, MCHC 27.8 L, RDW 16.4 H, RDW Differential 56.9 H, Plt Count 425, MPV 9.6, Immature Gran % (Auto) 1.100 H, Neut % (Auto) 82.4 H, Lymph % (Auto) 5.2 L, [place] % (Auto) 8.1, Eos % (Auto) 3.0, Baso % (Auto) 0.2, Absolute Neuts (auto) 10.4 H, Absolute Lymphs (auto) 0.66 L, Total Counted Not Reportable 01/20/18 05:50: Sodium 136, Potassium 3.9, Chloride 96 L, Carbon Dioxide 30.0, Anion Gap 10, BUN 31 H, Creatinine 1.04 H, Estim Creat Clear Calc 42.23, Est GFR (MDRD) Af Amer 67, Est GFR (MDRD) Non-Af 56 L, BUN/Creatinine Ratio 29.8 H, Glucose 142 H, Calcium 8.3 L 01/20/18 06:48: POC Glucose 161 H Diagnostic Data Chest X-Ray 01/07/18 05:55 IMPRESSION: Findings suggestive of a mild degree of CHF. Electronically Signed: Jonah Conner MD at 12:02 EDT Tel [phone], Service support , Current Medications Acetaminophen (Tylenol) 650 mg PO Q6H PRN PRN PRN Reason: Mild Pain (scale 0-3)/T>100.7 Last Admin: 01/14/18 15:35 Dose: 650 mg Hydrocodone Bitart/Acetaminophen ([place] 5mg-325mg) 1 - 2 tablet PO Q6H PRN PRN PRN Reason: Moderate-severe pain Acetazolamide (Diamox) 250 mg PO BID [facility] Last Admin: 01/20/18 08:22 Dose: 250 mg Albuterol Sulfate (Ventolin Aerosols) 2.5 mg INHALATION Q2H PRN PRN PRN Reason: Shortness of breath, wheezing Last Admin: 01/12/18 20:36 Dose: 2.5 mg Albuterol/Ipratropium (Duoneb) 3 ml INHALATION Q4H.RT [facility] Last Admin: 01/20/18 10:41 Dose: Not Given Atorvastatin Calcium (Lipitor) 10 mg PO QHS [facility] Last Admin: 01/19/18 21:54 Dose: 10 mg Escitalopram Oxalate (Lexapro) 10 mg PO DAILY [facility] Last Admin: 01/20/18 08:23 Dose: 10 mg Ferrous Sulfate (Ferrous Sulfate) 325 mg PO TIDCM [facility] Last Admin: 01/20/18 12:16 Dose: 325 mg Flunisolide (Nasarel Nose [place]) 2 spray NASAL BID [facility] Last Admin: 01/20/18 08:23 Dose: Not Given Fluticasone Propionate (Flonase Nasal [place]) 1 spray NASAL BID [facility] Last Admin: 01/20/18 08:22 Dose: 1 spray Furosemide (Lasix) 40 mg IV BID@1000,1800 [facility] Last Admin: 01/20/18 08:22 Dose: 40 mg Hydralazine HCl (Apresoline Iv) 10 mg IV Q4H PRN PRN PRN Reason: SBP > 160 Insulin Glargine (Lantus (Bkc)) 8 units SC QHS [facility] Last Admin: 01/19/18 21:54 Dose: 8 units Insulin Human Lispro (Humalog Kwikpen (Bkc)) 0 unit SQ [facility]; Protocol Last Admin: 01/20/18 12:16 Dose: 3 units Magnesium Hydroxide (Milk Of Magnesia) 30 ml PO DAILY PRN PRN Reason: Constipation Last Admin: 01/14/18 09:33 Dose: 30 ml Metoprolol Tartrate (Lopressor (Beta [place])) 50 mg PO BID [facility] Last Admin: 01/20/18 08:23 Dose: 50 mg Nitroglycerin (Nitrostat) 0.4 mg SUBLINGUAL Q5M PRN PRN Reason: Angina pain Ondansetron HCl (Zofran) 4 mg IV Q8H PRN PRN PRN Reason: Nausea Last Admin: 01/16/18 23:59 Dose: 4 mg Pantoprazole Sodium (Protonix) 40 mg PO BID [facility] Last Admin: 01/20/18 08:23 Dose: 40 mg Potassium Chloride (K-Dur) 20 meq PO DAILYCM [facility] Last Admin: 01/20/18 08:22 Dose: 20 meq Sodium Chloride () 5 - 30 ml IV UD PRN PRN Reason: SALINE FLUSH Last Admin: 01/20/18 08:21 Dose: 10 ml Sodium Chloride ([place] Nasal [place]) 2 spray NASAL TID PRN PRN PRN Reason: NASAL DRYNESS Last Admin: 01/20/18 08:22 Dose: 2 spray Trazodone HCl (Desyrel) 100 mg PO QHS PRN PRN PRN Reason: SLEEP Last Admin: 01/19/18 21:52 Dose: 100 mg Medical Necessity - Tobacco Use Smoking Status: Former smoker Tobacco Use: Cigarettes Assessment/Plan All Active Problems (Last Updated 01/02/18 @ 17:11 by David Montana MD) Diastolic CHF, acute on chronic (Acute) CKD stage 3 secondary to diabetes (Acute) CVA (cerebral vascular accident) (Resolved) CVA (cerebral vascular accident) (Resolved) History of GI bleeding (Resolved) 1. Acute on chronic hypoxic respiratory failure due to CHF exacerbation Resolving. Back to her baseline 6 L of oxygen. Continue oxygen to titrate to maintain saturation above 92%. incentive spirometer patient counseled to use BiPAP Nightly. 2. Acute diastolic CHF exacerbation resolving. Remains on IV lasix 40mg bid. WIll transition to oral lasix monitor input and output. 3. Acute metabolic alkalosis was likely due to contraction alkalosis from diuretics, and also COPD resolving. Now bicarb is down to 30 will stop diamox encourage BIPAP use. 4.Iron deficiency Anemia: Hb is 8.4. Likely contributing to respiratory failure. on oral iron replacement. Is s/p 3 units of PRBCs. 5. Severe aortic stenosis: awaiting transfer to [facility] to be evaluated for TAVR. Yet to get a bed at [facility]. WIll try transfer to other area hospitals. 6. COPD and pulmonary hypertension pulmonology On board. Not very compliant with her BiPAP. counselled to adhere to BIPAP use 7.Hypertension: Controlled. On metoprolol 8. Type 2 diabetes mellitus: Sugars poorly controlled. On ISS. ON insulin lantus 8IU SC. Accuchecks ACHS 9. Morbid obesity: BMI is 46. Patient counselled on diet. Patient is very sedentary, and this is definitely contributing to her obesity. 10/ DVT prophylaxis: SCDs. Has history of chronic GI bleed. Code status: full code. Code Visit Inpatient E&M: 20678 Subs Hosp L2
--- NOTE | 2018-01-20 16:04 | PN_ITS ---
Patient Problems: Active and Suspected Problems (Last Updated 01/02/18 @ 17:11 by David Montana MD) Diastolic CHF, acute on chronic (Acute) CKD stage 3 secondary to diabetes (Acute) Subjective: Patient seen and examined. She had no complaints and was comfortable in bed. She denied any fever or chills, any cough or chest pain, any shortness of breath, abdominal pain, any diarrhea or vomiting. She was on 6 L of oxygen which is her baseline. Patient is awaiting transfer to [facility] for aortic valve replacement. However she has been waiting for bed for several days. Today there was still unable to get a bed for her. Patient counseled that she has consider other options including transfer to other hospitals as all this while she has been insistent that she wants to go to [facility]. Vitals/I&O's: Vital Signs Temp Pulse Resp BP Pulse Ox 98.2 F 77 18 103/52 L 94 01/20/18 09:30 01/20/18 10:55 01/20/18 09:30 01/20/18 09:30 01/20/18 09:30 Oxygen Flow Rate (L/min) 6 Oxygen Delivery Method Nasal Cannula Weight: 245 lb 2.464 oz Body Mass Index (BMI) 45.4 Intake and Output for Last 24 Hours 01/19/18 01/19/18 01/20/18 00:59 23:59 23:59 Intake Total 250 / 250 Output Total 900 / 900 Balance -650 / -650 General: Alert, Oriented x3, Cooperative, No apparent distress HEENT: Atraumatic, PERRLA, EOMI, Normocephalic Oral: Moist Mucosa Neck: Supple, No JVD, Negative Carotid Bruits Lungs: - - mildly decreased breath sounds bibasally. No wheezes or crackles Cardiovascular: Regular rate, Regular Rhythm, Normal S1, Normal S2, - - grade 3- 4 ejection systolic murmur loudest in the aortic region Abdomen: Bowel Sounds Present, Soft, Non Tender, Non-Distended, No Hepato- splenomegaly Extremities: No clubbing, No cyanosis, No edema, Capillary Refill Less than 3 Seconds Skin: No rashes, No breakdown Musculoskeletal: No Tenderness to Palpation of Joints or Extremities Lymphatic: No Cervical, Supraclavicular, or Inguinal Adenopathy Neurological: Cranial nerves II-XII grossly intact, Neuro grossly intact, Motor Exam 5/5 strength throughout Psych/Mental Status: Normal Affect, Appropriate, Alert and oriented to time, place, person, mood and affect Laboratory Results 01/19/18 17:05: POC Glucose 159 H 01/19/18 21:45: POC Glucose 276 H 01/20/18 05:50: WBC 12.6 H, RBC 3.08 L, Hgb 8.4 L, Hct 30.2 L, MCV 98.1, MCH 27.3, MCHC 27.8 L, RDW 16.4 H, RDW Differential 56.9 H, Plt Count 425, MPV 9.6, Immature Gran % (Auto) 1.100 H, Neut % (Auto) 82.4 H, Lymph % (Auto) 5.2 L, [place] % (Auto) 8.1, Eos % (Auto) 3.0, Baso % (Auto) 0.2, Absolute Neuts (auto) 10.4 H, Absolute Lymphs (auto) 0.66 L, Total Counted Not Reportable 01/20/18 05:50: Sodium 136, Potassium 3.9, Chloride 96 L, Carbon Dioxide 30.0, Anion Gap 10, BUN 31 H, Creatinine 1.04 H, Estim Creat Clear Calc 42.23, Est GFR (MDRD) Af Amer 67, Est GFR (MDRD) Non-Af 56 L, BUN/Creatinine Ratio 29.8 H, Glucose 142 H, Calcium 8.3 L 01/20/18 06:48: POC Glucose 161 H Diagnostic Data Chest X-Ray 01/07/18 05:55 IMPRESSION: Findings suggestive of a mild degree of CHF. Electronically Signed: Jonah Conner MD at 12:02 EDT Tel [phone], Service support , Current Medications Acetaminophen (Tylenol) 650 mg PO Q6H PRN PRN PRN Reason: Mild Pain (scale 0-3)/T>100.7 Last Admin: 01/14/18 15:35 Dose: 650 mg Hydrocodone Bitart/Acetaminophen ([place] 5mg-325mg) 1 - 2 tablet PO Q6H PRN PRN PRN Reason: Moderate-severe pain Acetazolamide (Diamox) 250 mg PO BID [facility] Last Admin: 01/20/18 08:22 Dose: 250 mg Albuterol Sulfate (Ventolin Aerosols) 2.5 mg INHALATION Q2H PRN PRN PRN Reason: Shortness of breath, wheezing Last Admin: 01/12/18 20:36 Dose: 2.5 mg Albuterol/Ipratropium (Duoneb) 3 ml INHALATION Q4H.RT [facility] Last Admin: 01/20/18 10:41 Dose: Not Given Atorvastatin Calcium (Lipitor) 10 mg PO QHS [facility] Last Admin: 01/19/18 21:54 Dose: 10 mg Escitalopram Oxalate (Lexapro) 10 mg PO DAILY [facility] Last Admin: 01/20/18 08:23 Dose: 10 mg Ferrous Sulfate (Ferrous Sulfate) 325 mg PO TIDCM [facility] Last Admin: 01/20/18 12:16 Dose: 325 mg Flunisolide (Nasarel Nose [place]) 2 spray NASAL BID [facility] Last Admin: 01/20/18 08:23 Dose: Not Given Fluticasone Propionate (Flonase Nasal [place]) 1 spray NASAL BID [facility] Last Admin: 01/20/18 08:22 Dose: 1 spray Furosemide (Lasix) 40 mg IV BID@1000,1800 [facility] Last Admin: 01/20/18 08:22 Dose: 40 mg Hydralazine HCl (Apresoline Iv) 10 mg IV Q4H PRN PRN PRN Reason: SBP > 160 Insulin Glargine (Lantus (Bkc)) 8 units SC QHS [facility] Last Admin: 01/19/18 21:54 Dose: 8 units Insulin Human Lispro (Humalog Kwikpen (Bkc)) 0 unit SQ [facility]; Protocol Last Admin: 01/20/18 12:16 Dose: 3 units Magnesium Hydroxide (Milk Of Magnesia) 30 ml PO DAILY PRN PRN Reason: Constipation Last Admin: 01/14/18 09:33 Dose: 30 ml Metoprolol Tartrate (Lopressor (Beta [place])) 50 mg PO BID [facility] Last Admin: 01/20/18 08:23 Dose: 50 mg Nitroglycerin (Nitrostat) 0.4 mg SUBLINGUAL Q5M PRN PRN Reason: Angina pain Ondansetron HCl (Zofran) 4 mg IV Q8H PRN PRN PRN Reason: Nausea Last Admin: 01/16/18 23:59 Dose: 4 mg Pantoprazole Sodium (Protonix) 40 mg PO BID [facility] Last Admin: 01/20/18 08:23 Dose: 40 mg Potassium Chloride (K-Dur) 20 meq PO DAILYCM [facility] Last Admin: 01/20/18 08:22 Dose: 20 meq Sodium Chloride () 5 - 30 ml IV UD PRN PRN Reason: SALINE FLUSH Last Admin: 01/20/18 08:21 Dose: 10 ml Sodium Chloride ([place] Nasal [place]) 2 spray NASAL TID PRN PRN PRN Reason: NASAL DRYNESS Last Admin: 01/20/18 08:22 Dose: 2 spray Trazodone HCl (Desyrel) 100 mg PO QHS PRN PRN PRN Reason: SLEEP Last Admin: 01/19/18 21:52 Dose: 100 mg Medical Necessity - Tobacco Use Smoking Status: Former smoker Tobacco Use: Cigarettes Assessment/Plan All Active Problems (Last Updated 01/02/18 @ 17:11 by David Montana MD) Diastolic CHF, acute on chronic (Acute) CKD stage 3 secondary to diabetes (Acute) CVA (cerebral vascular accident) (Resolved) CVA (cerebral vascular accident) (Resolved) History of GI bleeding (Resolved) 1. Acute on chronic hypoxic respiratory failure due to CHF exacerbation * Resolving. Back to her baseline 6 L of oxygen. * Continue oxygen to titrate to maintain saturation above 92%. incentive spirometer * patient counseled to use BiPAP Nightly. 2. Acute diastolic CHF exacerbation * resolving. Remains on IV lasix 40mg bid. WIll transition to oral lasix * monitor input and output. * 3. Acute metabolic alkalosis * was likely due to contraction alkalosis from diuretics, and also COPD * resolving. Now bicarb is down to 30 * will stop diamox * encourage BIPAP use. * 4.Iron deficiency Anemia: Hb is 8.4. Likely contributing to respiratory failure. on oral iron replacement. Is s/p 3 units of PRBCs. 5. Severe aortic stenosis: awaiting transfer to [facility] to be evaluated for TAVR. Yet to get a bed at [facility]. WIll try transfer to other area hospitals. 6. COPD and pulmonary hypertension * pulmonology On board. Not very compliant with her BiPAP. * counselled to adhere to BIPAP use * 7.Hypertension: Controlled. On metoprolol 8. Type 2 diabetes mellitus: Sugars poorly controlled. On ISS. ON insulin lantus 8IU SC. Accuchecks ACHS 9. Morbid obesity: BMI is 46. Patient counselled on diet. Patient is very sedentary, and this is definitely contributing to her obesity. 10/ DVT prophylaxis: SCDs. Has history of chronic GI bleed. Code status: full code. Code Visit Inpatient E&M: 67385 Subs Hosp L2
[2018-01-20 17:00] LABS: Bedside Glucose 196 mg/dL (70-110)
[2018-01-20] MEDS: Furosemide 40 MG Tablet PO (17:05)
[2018-01-20 17:26] LABS: Bedside Glucose 173 mg/dL (70-110)
--- NOTE | 2018-01-20 20:13 | PCM.PN.CARD ---
Subjectve: The patient appears to be somewhat more awake and alert at this time. She continues with her chronic shortness of breath/dyspnea and peripheral pitting edema. Objective: Vital Signs Temp Pulse Resp BP Pulse Ox 97.7 F L 80 18 115/56 L 94 01/20/18 17:00 01/20/18 18:54 01/20/18 18:40 01/20/18 17:00 01/20/18 18:40 Oxygen Flow Rate (L/min) 6 Oxygen Delivery Method Nasal Cannula Weight: 245 lb 2.464 oz Body Mass Index (BMI) 45.4 Intake and Output for Last 24 Hours 01/19/18 01/19/18 01/20/18 00:59 23:59 23:59 Intake Total 370 / 370 Output Total 1400 / 1400 Balance -1030 / -1030 General: Awake, Alert, Oriented x 3, No Acute Distress, Obese HEENT: Atraumatic, Normocephalic, PERRL, EOMI, Sclera Non Icteric Oral: Moist Mucosa Neck: Supple, Good ROM, No JVD Lungs: Diminished Param Bases Cardiovascular: Regular Rhythm, Normal S1, Normal S2 Abdomen: Bowel Sounds Present, Soft, Non Tender, Obese Extremities: Severe RLE Edema, Severe LLE Edema Psych/Mental Status: Appropriate 01/20/18 05:50: WBC 12.6 H, RBC 3.08 L, Hgb 8.4 L, Hct 30.2 L, MCV 98.1, MCH 27.3, MCHC 27.8 L, RDW 16.4 H, RDW Differential 56.9 H, Plt Count 425, MPV 9.6, Immature Gran % (Auto) 1.100 H, Neut % (Auto) 82.4 H, Lymph % (Auto) 5.2 L, [place] % (Auto) 8.1, Eos % (Auto) 3.0, Baso % (Auto) 0.2, Absolute Neuts (auto) 10.4 H, Total Counted Not Reportable 01/20/18 05:50: Sodium 136, Potassium 3.9, Chloride 96 L, Carbon Dioxide 30.0, Anion Gap 10, BUN 31 H, Creatinine 1.04 H, Est GFR (MDRD) Af Amer 67, Est GFR (MDRD) Non-Af 56 L, BUN/Creatinine Ratio 29.8 H, Glucose 142 H, Calcium 8.3 L Rhythm: Sinus rhythm Medical Necessity - Tobacco Use Smoking Status: Former smoker Tobacco Use: Cigarettes Assessment/Plan 1. Acute on chronic diastolic mediated CHF At the present time patient presents with findings compatible with acute on chronic diastolic mediated CHF. She continues on Diamox therapy. Her last BMP noted improvement in her CO2 level. She will continue oxygen support. She is attempting BiPAP therapy. However, she has not been able to wear BiPAP all the time. She was encouraged to continue to wear this as much as possible. She is being followed by pulmonology and nephrology. 2. Aortic valve stenosis She does have a history of aortic valve stenosis. There is somewhat of a discrepancy between her transthoracic echocardiogram and her diagnostic cardiac catheterization. He has been evaluated at the [facility] for her aortic valve stenosis for consideration for TAVR thus far they have not proceeded with this procedure. A follow-up transthoracic echocardiogram was performed. Her aortic valve, is not well visualized, however, spectral Doppler suggest moderately severe aortic valve stenosis. 3. Pulmonary hypertension This may be secondary to not only her cardiovascular disease but her pulmonary disease with her COPD, etc. This can lead to cor pulmonale and right heart failure. He will need continued pulmonary support and medical therapy which does include her diuretic therapy. However, there is concern with respect to her diabetic therapy and her subsequent acid-base status. Thus she is being followed. 4. Hyperlipidemia She will continue lipid-lowering therapy as deemed appropriate. 5. Hypertension She will continue antihypertensive therapy with adjustment as needed. 6. Diabetes mellitus She will continue under the care of internal medicine. 7. COPD She does have a history of COPD. She will need continue pulmonary evaluation care. She is on O2 therapy. Again she has been encouraged to use her BiPAP therapy as much as possible per the directions of pulmonology. 8. Anemia Her hemoglobin has improved status post her PRBCs. It will need to be followed as if it declines in the future she may need additional PRBCs. Overall she will continue to new medical therapy. Again she is pending transfer to [facility] for further tertiary care center cardiopulmonary evaluation. However, [facility], despite listing her as a priority patient, has yet to be able to secure a bed for her. Thus, she may have to give consideration to evaluation at an alternative tertiary care center for her underlying aortic valve disorder. She states she will be willing to consider that if the [facility] situation does not appear to improve. This note was generated with [employer] software. It may contain incorrect words, spelling, and punctuation that were not noted in checking the note before signing.
[2018-01-20] MEDS: Atorvastatin Calcium 10 MG Tablet PO (21:02)
[2018-01-20] MEDS: traZODone 100 MG Tablet PO (21:03)
[2018-01-20 21:11] LABS: Bedside Glucose 329 mg/dL (70-110)
[2018-01-21] VITALS (12 sets, daily range): BP systolic 103–118; BP diastolic 51–63; PULSE 68–114; RESP 14–21; TEMP 36.6; O2SAT 94–96
[2018-01-21] MEDS: Ipratropium/Albuterol Sulfate 3 ML AMPUL.NEB INHALATION ×3 (06:42→14:20)
[2018-01-21 06:52] LABS: Absolute Lymphocyte Count 0.77 X10^3/ul (0.83-4.51); Absolute Neutrophil Count 11.6 X10^3/uL (2.0-7.7); Basophil# 0.05 X10^3/uL; Basophil% 0.4 % (0-1); Eosinophil# 0.35 X10^3/uL; Eosinophils% 2.5 % (0-5); Hematocrit 32.7 % (37-47); Hemoglobin 9.1 g/dl (12.0-15.0); Lymphocyte # 0.77 X10^3/ul (4.0); Lymphocyte % 5.6 % (19-41); Mean Corp Hgb Conc 27.8 g/gl (32-36); Mean Corpuscular Hgb 27.5 pg (27.0-32.0); Mean Corpuscular Volume 98.8 fL (81-99); Mean Platelet Vol. 9.6 fl (6.2-12.0); Monocyte# 0.93 X10^3/uL; Monocyte% 6.7 % (0-10); Neutrophil # 11.58 X10^3/uL (2.7-7.7); Neutrophil % 83.9 % (47-70); Platelet Count 445 K/mm3 (150-450); RBC Distribution Width CV 16.4 % (11.6-14.6); RBC Distribution Width SD 58.6 fl (35.1-43.9); Red Blood Count 3.31 M/mm3 (4.2-5.4); White Blood Count 13.8 K/mm3 (4.4-11.0)
[2018-01-21 06:53] LABS: POSITIVE COUNT NO; POSITIVE DIFFERENTIAL NO; POSITIVE MORPHOLOGY NO
[2018-01-21 06:54] LABS: Anion Gap 7 (5-15); BUN 31 mg/dL (7-18); BUN/Creat Ratio 28.4 RATIO (10-20); Calcium,Total 8.6 mg/dL (8.5-10.1); Chloride 94 mmol/L (98-107); Creatinine, Serum 1.09 mg/dL (0.55-1.02); EST Glomerular Filtration Rate 53 mL/min (>60); Est Glom Filt Rate - Afr Amer 64 mL/min (>60); Estimated Creatinine Clearance 40.29 ml/min; Glucose 167 mg/dL (74-106); Potassium 3.6 mmol/L (3.5-5.1); Sodium Level 138 mmol/L (136-145)
[2018-01-21 06:57] LABS: Bedside Glucose 179 mg/dL (70-110)
[2018-01-21] MEDS: Ferrous Sulfate 325 MG Tablet PO ×3 (09:13→17:03)
[2018-01-21] MEDS: Metoprolol Tartrate 50 MG Tablet PO (09:13)
[2018-01-21] MEDS: Pantoprazole Sodium 40 MG Tablet PO (09:13)
[2018-01-21] MEDS: Fluticasone 0.05% 1 SPRAY NASAL.SRY NASAL (09:14)
[2018-01-21] MEDS: Furosemide 40 MG Tablet PO (09:14)
[2018-01-21] MEDS: Escitalopram Oxalate 10 MG Tablet PO (09:14)
[2018-01-21] MEDS: Insulin Lispro 100 UNIT/ML INSULN.PEN SQ ×2 (09:14→11:37)
[2018-01-21] MEDS: AcetaZOLAMIDE 250 MG Tablet PO (09:14)
[2018-01-21 11:50] LABS: Bedside Glucose 175 mg/dL (70-110)
--- NOTE | 2018-01-21 14:45 | PN_ITS ---
Patient Problems: Active and Suspected Problems (Last Updated 01/02/18 @ 17:11 by David Montana MD) Diastolic CHF, acute on chronic (Acute) CKD stage 3 secondary to diabetes (Acute) Subjective: Patient seen and examined. She has no complaints and feels well. She had an uneventful night. Again she was noncompliant with her BiPAP overnight. She denies any shortness of breath and was actually not even on oxygen at time of review. She denied any fever or chills, cough or chest pain, SOB, abdominal pain, diarrhea or vomiting. Review of systems Vitals/I&O's: Vital Signs Temp Pulse Resp BP Pulse Ox 97.9 F 88 20 H 103/54 L 94 01/21/18 09:10 01/21/18 14:20 01/21/18 14:20 01/21/18 09:10 01/21/18 09:10 Oxygen Flow Rate (L/min) 6 Oxygen Delivery Method Nasal Cannula Weight: 245 lb 9.519 oz Body Mass Index (BMI) 45.4 Intake and Output for Last 24 Hours 01/19/18 01/20/18 01/21/18 23:59 23:59 23:59 Intake Total 760 / 760 360 / 360 Output Total 1950 / 1950 400 / 400 Balance -1190 / -1190 -40 / -40 Laboratory Results 01/20/18 11:19: POC Glucose 196 H 01/20/18 17:01: POC Glucose 173 H 01/20/18 20:57: POC Glucose 329 H 01/21/18 06:20: WBC 13.8 H, RBC 3.31 L, Hgb 9.1 L, Hct 32.7 L, MCV 98.8, MCH 27.5, MCHC 27.8 L, RDW 16.4 H, RDW Differential 58.6 H, Plt Count 445, MPV 9.6, Immature Gran % (Auto) 0.900, Neut % (Auto) 83.9 H, Lymph % (Auto) 5.6 L, [place] % (Auto) 6.7, Eos % (Auto) 2.5, Baso % (Auto) 0.4, Absolute Neuts (auto) 11.6 H, Absolute Lymphs (auto) 0.77 L, Total Counted Not Reportable 01/21/18 06:20: Sodium 138, Potassium 3.6, Chloride 94 L, Carbon Dioxide 37.0 H, Anion Gap 7, BUN 31 H, Creatinine 1.09 H, Estim Creat Clear Calc 40.29, Est GFR (MDRD) Af Amer 64, Est GFR (MDRD) Non-Af 53 L, BUN/Creatinine Ratio 28.4 H, Glucose 167 H, Calcium 8.6 01/21/18 06:49: POC Glucose 179 H 01/21/18 11:36: POC Glucose 175 H Current Medications Acetaminophen (Tylenol) 650 mg PO Q6H PRN PRN PRN Reason: Mild Pain (scale 0-3)/T>100.7 Last Admin: 01/14/18 15:35 Dose: 650 mg Hydrocodone Bitart/Acetaminophen (Nunda 5mg-325mg) 1 - 2 tablet PO Q6H PRN PRN PRN Reason: Moderate-severe pain Acetazolamide (Diamox) 250 mg PO BID [facility] Last Admin: 01/21/18 09:14 Dose: 250 mg Albuterol Sulfate (Ventolin Aerosols) 2.5 mg INHALATION Q2H PRN PRN PRN Reason: Shortness of breath, wheezing Last Admin: 01/12/18 20:36 Dose: 2.5 mg Albuterol/Ipratropium (Duoneb) 3 ml INHALATION Q4H.RT [facility] Last Admin: 01/21/18 14:20 Dose: 3 ml Atorvastatin Calcium (Lipitor) 10 mg PO QHS [facility] Last Admin: 01/20/18 21:02 Dose: 10 mg Escitalopram Oxalate (Lexapro) 10 mg PO DAILY [facility] Last Admin: 01/21/18 09:14 Dose: 10 mg Ferrous Sulfate (Ferrous Sulfate) 325 mg PO TIDCM [facility] Last Admin: 01/21/18 11:38 Dose: 325 mg Flunisolide (Nasarel Nose [place]) 2 spray NASAL BID [facility] Last Admin: 01/21/18 09:15 Dose: 2 spray Fluticasone Propionate (Flonase Nasal [place]) 1 spray NASAL BID [facility] Last Admin: 01/21/18 09:14 Dose: 1 spray Furosemide (Lasix) 40 mg PO BID@1000,1800 [facility] Last Admin: 01/21/18 09:14 Dose: 40 mg Hydralazine HCl (Apresoline Iv) 10 mg IV Q4H PRN PRN PRN Reason: SBP > 160 Insulin Glargine (Lantus (Bkc)) 8 units SC QHS [facility] Last Admin: 01/20/18 21:01 Dose: 8 units Insulin Human Lispro (Humalog Kwikpen (Bkc)) 0 unit SQ ACHS [facility]; Protocol Last Admin: 01/21/18 11:37 Dose: 3 units Magnesium Hydroxide (Milk Of Magnesia) 30 ml PO DAILY PRN PRN Reason: Constipation Last Admin: 01/14/18 09:33 Dose: 30 ml Metoprolol Tartrate (Lopressor (Beta [place]ery)) 50 mg PO BID [facility] Last Admin: 01/21/18 09:13 Dose: 50 mg Nitroglycerin (Nitrostat) 0.4 mg SUBLINGUAL Q5M PRN PRN Reason: Angina pain Ondansetron HCl (Zofran) 4 mg IV Q8H PRN PRN PRN Reason: Nausea Last Admin: 01/16/18 23:59 Dose: 4 mg Pantoprazole Sodium (Protonix) 40 mg PO BID [facility] Last Admin: 01/21/18 09:13 Dose: 40 mg Potassium Chloride (K-Dur) 20 meq PO DAILYCM [facility] Last Admin: 01/21/18 09:13 Dose: 20 meq Sodium Chloride () 5 - 30 ml IV UD PRN PRN Reason: SALINE FLUSH Last Admin: 01/20/18 08:21 Dose: 10 ml Sodium Chloride ([place] Nasal [place]) 2 spray NASAL TID PRN PRN PRN Reason: NASAL DRYNESS Last Admin: 01/20/18 08:22 Dose: 2 spray Trazodone HCl (Desyrel) 100 mg PO QHS PRN PRN PRN Reason: SLEEP Last Admin: 01/20/18 21:03 Dose: 100 mg Medical Necessity - Tobacco Use Smoking Status: Former smoker Tobacco Use: Cigarettes Assessment/Plan All Active Problems (Last Updated 01/02/18 @ 17:11 by David Montana MD) Diastolic CHF, acute on chronic (Acute) CKD stage 3 secondary to diabetes (Acute) CVA (cerebral vascular accident) (Resolved) CVA (cerebral vascular accident) (Resolved) History of GI bleeding (Resolved)
--- NOTE | 2018-01-21 14:56 | CASEMGMT ---
Dr. Levine attempted to transfer pt to [facility] this am instead of [facility], since [facility] has not given us a bed after [address] Levine just notified this RN CM that the [facility] surgeon feels that pt should go to [facility] main campus. This RN CM placed call to Walter at [facility] transfer center and he speaks with bed control RN and states that there are still no CICU beds available. This RN CM once again asked about pt's lack of bipap use and needing ICU bed and he states that if this RN CM has Dr. Levine call to speak with their physician and re-triage pt then they may be able to put pt on stepdown, which they have numerous beds available. Dr. Levine notified and provided with contact number, . Dr. Levine placed call and states that they accepted pt to stepdown bed and asks to be notified when bed obtained. Within several minutes, Walter from [facility] called this RN CM back with a bed number, [id number] bed 12 and report number is [phone]. Dr. Levine, Deysi-change management consultant, Rosie-RN, and Veronica-company secretary, all aware at this time, voices understanding and transfer paperwork started. Ander RN CM
--- NOTE | 2018-01-21 15:16 | PCM.TXEXTCAR ---
- Diet 01/02/18 17:41 Diet: Cardiac: Calorie-Controlled Food consistency:: Regular Liquid Consistency:: Regular/Thin Is pt able to select menu?: Yes How many daily calories?: 1800 calorie - Routine Orders/Code Status Enema Type: Fleetz Enema Frequency: Daily PRN Suppository Type: Dulcolax 10mg Suppository Frequency: Daily PRN O2 Liters per Minute: 6 O2 Frequency: Continuous Keep PO Greater than or Equal to (%): 92 - Therapies Weight Bearing: Weight bearing as tolerated Physical Therapy: Eval and Treat Occupational Therapy: Eval and Treat - Allergies/Procedures Done in Hospital Allergies/Adverse Reactions: Allergies No Known Allergies Allergy (Verified 01/02/18 15:03) Procedures: 2-D Echocardiogram - Type of Care/Length of Stay Estimated LOS: Convalescent Care Less Than 30 days Type of Care Needed: [facility] - [facility]- [facility] Rehab Potential: Fair Prognosis: Fair - Additional Orders/Day of Discharge Day of Discharge: 01/21/18 - Dietary and Speech Recommendations Dietitian Recommendations/Changes: Rec diet change to 1600 edilma Cardiac/ low sodium with 1500ml fluid restriction as indicated. - Follow Up Care Primary Care Physician: Vic Chen MD [Primary Care Provider] - Please follow up with your Primary Care Physician in: one week Please Follow Up With: Vic Xavier MD When: 2-3 weeks
--- NOTE | 2018-01-21 15:19 | PCM.DC.SUM ---
Discharge Date and Diagnosis - Problem List Patient Problems: Active and Suspected Problems (Last Updated 01/02/18 @ 17:11 by David Montana MD) Diastolic CHF, acute on chronic (Acute) CKD stage 3 secondary to diabetes (Acute) Date of Admission: 01/02/18 Date of Discharge: 01/21/18 - Primary Discharge Diagnosis Active and Suspected Problems (Last Updated 01/02/18 @ 17:11 by David Montana MD) Diastolic CHF, acute on chronic (Acute) CKD stage 3 secondary to diabetes (Acute) - Secondary Discharge Diagnosis Chronic Problems (Last Updated 01/02/18 @ 17:11 by David Montana MD) Chronic diastolic (congestive) heart failure (Chronic) Cerebral infarction, unspecified (Chronic) Palpitations (Chronic) Anxiety (Chronic) Left atrial enlargement (Chronic) Hypersomnia (Chronic) Anemia (Chronic) Carotid artery stenosis (Chronic) Chronic hypoxemic respiratory failure (Chronic) Pulmonary fibrosis (Chronic) 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 She was admitted through the ED with a complaint of progressively worsening shortness of breath, weakness and dizziness. On day of admission she can see a psychiatric orderly for review and was found to be in severe respiratory distress distress on minimal exertion. Therefore she was brought into the ED for evaluation. History of severe aortic stenosis and had been evaluated for T AVR. However on June 11, 2017 she had a cardiac catheterization impression for the T AVR procedure and aortic stenosis was described as mild therefore decision was made to continue with medical management. On admission, labs were significant for hemoglobin of 8 and troponin was 0.07. BNP was normal and EKG showed normal sinus rhythm without any bundle branch block and no acute ST changes. Chest x-ray showed mild cardiomegaly with bilateral pulmonary vascular congestion slightly slightly worse than previous x-ray. She was admitted and managed for acute on chronic hypoxic respiratory failure, acute on chronic anemia and probable acute on chronic diastolic CHF. She was diuresed with IV Lasix and was transfused a total of 3 units of packed red blood cells during this admission. Patient shortness of breath resolved and his symptoms improved. Also made to transfer her to [facility] where she had been followed up for aortic stenosis. However were unsuccessful in getting a bed from 01/15/2018 until 01/21/2018 when a bed was obtained in the stepdown unit for patient. Patient had not been compliant with her CPAP during this admission. She was transferred to [facility] on 01/21/2018 and at that care of the cardiology service. Patient seen and examined prior to discharge. She felt well and had not been compliant with her BiPAP throughout the night. She has never been on oxygen at time of review. She denied any shortness of breath, any chest pain, fever chills, abdominal pain, any diarrhea vomiting. Review of systems is otherwise negative. Labs and vitals reviewed. Home medications reviewed and reconciled. [] Patient Problems: Active and Suspected Problems (Last Updated 01/02/18 @ 17:11 by David Montana MD) Diastolic CHF, acute on chronic (Acute) CKD stage 3 secondary to diabetes (Acute) - Physical Exam General: Alert, Oriented x3, Cooperative, No apparent distress HEENT: Atraumatic, PERRLA, EOMI, Normocephalic Oral: Moist Mucosa Neck: Supple, No JVD, Negative Carotid Bruits Lungs: Wheezes - Breath sounds bibasilarly with no wheeze or crackles., - Cardiovascular: Regular rate, Regular Rhythm, Normal S1, Normal S2, - - Grade 3-4 systolic murmur loudest in the aortic region. Abdomen: Bowel Sounds Present, Soft, Non Tender, Non-Distended, No Hepato-splenomegaly Extremities: No clubbing, No cyanosis, Capillary Refill Less than 3 Seconds, - - Bilateral lower extremity edema. Skin: No rashes, No breakdown, Ulcer/ Wound Musculoskeletal: No Tenderness to Palpation of Joints or Extremities Lymphatic: No Cervical, Supraclavicular, or Inguinal Adenopathy Neurological: Cranial nerves II-XII grossly intact, Neuro grossly intact, Motor Exam 5/5 strength throughout Psych/Mental Status: Normal Affect, Appropriate, Alert and oriented to time, place, person, mood and affect Vital Signs Temp Pulse Resp BP Pulse Ox 97.9 F 88 20 H 103/54 L 94 01/21/18 09:10 01/21/18 14:20 01/21/18 14:20 01/21/18 09:10 01/21/18 09:10 Oxygen Flow Rate (L/min) 6 Oxygen Delivery Method Nasal Cannula Weight: 245 lb 9.519 oz Body Mass Index (BMI) 45.4 Intake and Output for Last 24 Hours 01/19/18 01/20/18 01/21/18 23:59 23:59 23:59 Intake Total 760 / 760 360 / 360 Output Total 1950 / 1950 400 / 400 Balance -1190 / -1190 -40 / -40 Laboratory Tests Past 24 Hrs 01/21/18 01/21/18 06:20 06:20 WBC 13.8 H RBC 3.31 L Hgb 9.1 L Hct 32.7 L MCV 98.8 MCH 27.5 MCHC 27.8 L RDW 16.4 H RDW Differential 58.6 H Plt Count 445 MPV 9.6 Immature Gran % (Auto) 0.900 Neut % (Auto) 83.9 H Lymph % (Auto) 5.6 L [place] % (Auto) 6.7 Eos % (Auto) 2.5 Baso % (Auto) 0.4 Absolute Neuts (auto) 11.6 H Absolute Lymphs (auto) 0.77 L Total Counted Not Reportable Sodium 138 Potassium 3.6 Chloride 94 L Carbon Dioxide 37.0 H Anion Gap 7 BUN 31 H Creatinine 1.09 H Estim Creat Clear Calc 40.29 Est GFR (MDRD) Af Amer 64 Est GFR (MDRD) Non-Af 53 L BUN/Creatinine Ratio 28.4 H Glucose 167 H Calcium 8.6 POC Glucose 01/21/18 01/21/18 01/20/18 11:36 06:49 20:57 POC Glucose 175 H 179 H 329 H 01/20/18 01/20/18 17:01 11:19 POC Glucose 173 H 196 H Discharge Diet: Low fat/ Low Cholesterol Discharge Activity: Return to Normal Activity Weight Bearing Status: Weight bearing as tolerated Home Medications: Medications to take at Discharge Metformin HCl [Glucophage] 1,000 mg PO BIDCM 01/15/14 Simvastatin [Zocor] 20 mg PO QHS 01/15/14 Escitalopram Oxalate [Lexapro] 10 mg PO DAILY 06/29/15 traZODone [Desyrel] 100 mg PO QHS PRN PRN 06/29/15 Budesonide/Formoterol Fumarate [Symbicort 160-4.5 Mcg Inhaler] 2 puff IH BID 03/27/17 Fluticasone 0.05% [Flonase Nasal [place]] 1 spray NASAL BID 04/24/17 Acetaminophen [Tylenol Tablet] 650 mg PO Q6H PRN PRN tab 06/10/17 Ipratropium/Albuterol Sulfate [Duoneb] 3 ml INHALATION Q4H.RT ampul.neb 06/10/17 Furosemide [Lasix] 80 mg PO BID 09/02/17 ferrous sulfate 325 mg (65 mg iron) tablet 325 mg PO TID tab 09/09/17 metoprolol tartrate 50 mg tablet 50 mg PO BID #180 tab 11/12/17 Albuterol Sulfate [Ventolin Hfa] 1 - 2 puff INHALATION PRN PRN 01/02/18 Primary Care Physician: Vic Chen MD [Primary Care Provider] - Please follow up with your Primary Care Physician in: one week Please Follow Up With: Vic Xavier MD When: 2-3 weeks Disposition: Acute care Hospital [facility] Minutes spent on discharge:: 45 Patient Condition:: Stable Medical Necessity - Tobacco Use Smoking Status: Former smoker Tobacco Use: Cigarettes Meaningful Use Info Meaningful Use Diagnoses (Choose all that apply): None applicable, CHF - CHF CHADD/ARB ordered at discharge?: No Reason CHADD/ARB not ordered?: Worsening renal disease Documented LVEF (%): 60 Code Visit Inpatient E&M: 65002 Disch Hosp
--- NOTE | 2018-01-21 15:28 | DS.PCM_ITS ---
Discharge Date and Diagnosis - Problem List Patient Problems: Active and Suspected Problems (Last Updated 01/02/18 @ 17:11 by David Montana MD) Diastolic CHF, acute on chronic (Acute) CKD stage 3 secondary to diabetes (Acute) Date of Admission: 01/02/18 Date of Discharge: 01/21/18 - Primary Discharge Diagnosis Active and Suspected Problems (Last Updated 01/02/18 @ 17:11 by David Montana MD) Diastolic CHF, acute on chronic (Acute) CKD stage 3 secondary to diabetes (Acute) - Secondary Discharge Diagnosis Chronic Problems (Last Updated 01/02/18 @ 17:11 by David Montana MD) Chronic diastolic (congestive) heart failure (Chronic) Cerebral infarction, unspecified (Chronic) Palpitations (Chronic) Anxiety (Chronic) Left atrial enlargement (Chronic) Hypersomnia (Chronic) Anemia (Chronic) Carotid artery stenosis (Chronic) Chronic hypoxemic respiratory failure (Chronic) Pulmonary fibrosis (Chronic) 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 She was admitted through the ED with a complaint of progressively worsening shortness of breath, weakness and dizziness. On day of admission she can see a rat poisoner for review and was found to be in severe respiratory distress distress on minimal exertion. Therefore she was brought into the ED for evaluation. History of severe aortic stenosis and had been evaluated for T AVR. However on June 11, 2017 she had a cardiac catheterization impression for the T AVR procedure and aortic stenosis was described as mild therefore decision was made to continue with medical management. On admission, labs were significant for hemoglobin of 8 and troponin was 0.07. BNP was normal and EKG showed normal sinus rhythm without any bundle branch block and no acute ST changes. Chest x-ray showed mild cardiomegaly with bilateral pulmonary vascular congestion slightly slightly worse than previous x-ray. She was admitted and managed for acute on chronic hypoxic respiratory failure, acute on chronic anemia and probable acute on chronic diastolic CHF. She was diuresed with IV Lasix and was transfused a total of 3 units of packed red blood cells during this admission. Patient shortness of breath resolved and his symptoms improved. Also made to transfer her to [facility] where she had been followed up for aortic stenosis. However were unsuccessful in getting a bed from 01/15/2018 until 01/21/2018 when a bed was obtained in the stepdown unit for patient. Patient had not been compliant with her CPAP during this admission. She was transferred to [facility] on 01/21/2018 and at that care of the cardiology service. Patient seen and examined prior to discharge. She felt well and had not been compliant with her BiPAP throughout the night. She has never been on oxygen at time of review. She denied any shortness of breath, any chest pain, fever chills, abdominal pain, any diarrhea vomiting. Review of systems is otherwise negative. Labs and vitals reviewed. Home medications reviewed and reconciled. [] Patient Problems: Active and Suspected Problems (Last Updated 01/02/18 @ 17:11 by David Montana MD) Diastolic CHF, acute on chronic (Acute) CKD stage 3 secondary to diabetes (Acute) - Physical Exam General: Alert, Oriented x3, Cooperative, No apparent distress HEENT: Atraumatic, PERRLA, EOMI, Normocephalic Oral: Moist Mucosa Neck: Supple, No JVD, Negative Carotid Bruits Lungs: Wheezes - Breath sounds bibasilarly with no wheeze or crackles., - Cardiovascular: Regular rate, Regular Rhythm, Normal S1, Normal S2, - - Grade 3- 4 systolic murmur loudest in the aortic region. Abdomen: Bowel Sounds Present, Soft, Non Tender, Non-Distended, No Hepato- splenomegaly Extremities: No clubbing, No cyanosis, Capillary Refill Less than 3 Seconds, - - Bilateral lower extremity edema. Skin: No rashes, No breakdown, Ulcer/ Wound Musculoskeletal: No Tenderness to Palpation of Joints or Extremities Lymphatic: No Cervical, Supraclavicular, or Inguinal Adenopathy Neurological: Cranial nerves II-XII grossly intact, Neuro grossly intact, Motor Exam 5/5 strength throughout Psych/Mental Status: Normal Affect, Appropriate, Alert and oriented to time, place, person, mood and affect Vital Signs Temp Pulse Resp BP Pulse Ox 97.9 F 88 20 H 103/54 L 94 01/21/18 09:10 01/21/18 14:20 01/21/18 14:20 01/21/18 09:10 01/21/18 09:10 Oxygen Flow Rate (L/min) 6 Oxygen Delivery Method Nasal Cannula Weight: 245 lb 9.519 oz Body Mass Index (BMI) 45.4 Intake and Output for Last 24 Hours 01/19/18 01/20/18 01/21/18 23:59 23:59 23:59 Intake Total 760 / 760 360 / 360 Output Total 1950 / 1950 400 / 400 Balance -1190 / -1190 -40 / -40 Laboratory Tests Past 24 Hrs 01/21/18 01/21/18 06:20 06:20 WBC 13.8 H RBC 3.31 L Hgb 9.1 L Hct 32.7 L MCV 98.8 MCH 27.5 MCHC 27.8 L RDW 16.4 H RDW Differential 58.6 H Plt Count 445 MPV 9.6 Immature Gran % (Auto) 0.900 Neut % (Auto) 83.9 H Lymph % (Auto) 5.6 L [place] % (Auto) 6.7 Eos % (Auto) 2.5 Baso % (Auto) 0.4 Absolute Neuts (auto) 11.6 H Absolute Lymphs (auto) 0.77 L Total Counted Not Reportable Sodium 138 Potassium 3.6 Chloride 94 L Carbon Dioxide 37.0 H Anion Gap 7 BUN 31 H Creatinine 1.09 H Estim Creat Clear Calc 40.29 Est GFR (MDRD) Af Amer 64 Est GFR (MDRD) Non-Af 53 L BUN/Creatinine Ratio 28.4 H Glucose 167 H Calcium 8.6 POC Glucose 01/21/18 01/21/18 01/20/18 11:36 06:49 20:57 POC Glucose 175 H 179 H 329 H 01/20/18 01/20/18 17:01 11:19 POC Glucose 173 H 196 H Discharge Diet: Low fat/ Low Cholesterol Discharge Activity: Return to Normal Activity Weight Bearing Status: Weight bearing as tolerated Home Medications: Medications to take at Discharge Metformin HCl [Glucophage] 1,000 mg PO BIDCM 01/15/14 Simvastatin [Zocor] 20 mg PO QHS 01/15/14 Escitalopram Oxalate [Lexapro] 10 mg PO DAILY 06/29/15 traZODone [Desyrel] 100 mg PO QHS PRN PRN 06/29/15 Budesonide/Formoterol Fumarate [Symbicort 160-4.5 Mcg Inhaler] 2 puff IH BID 03/27/17 Fluticasone 0.05% [Flonase Nasal [place]] 1 spray NASAL BID 04/24/17 Acetaminophen [Tylenol Tablet] 650 mg PO Q6H PRN PRN tab 06/10/17 Ipratropium/Albuterol Sulfate [Duoneb] 3 ml INHALATION Q4H.RT ampul.neb 06/10/17 Furosemide [Lasix] 80 mg PO BID 09/02/17 ferrous sulfate 325 mg (65 mg iron) tablet 325 mg PO TID tab 09/09/17 metoprolol tartrate 50 mg tablet 50 mg PO BID #180 tab 11/12/17 Albuterol Sulfate [Ventolin Hfa] 1 - 2 puff INHALATION PRN PRN 01/02/18 Primary Care Physician: Vic Chen MD [Primary Care Provider] - Please follow up with your Primary Care Physician in: one week Please Follow Up With: Vic Xavier MD When: 2-3 weeks Disposition: Acute care Hospital [facility] Minutes spent on discharge:: 45 Patient Condition:: Stable Medical Necessity - Tobacco Use Smoking Status: Former smoker Tobacco Use: Cigarettes Meaningful Use Info Meaningful Use Diagnoses (Choose all that apply): None applicable, CHF - CHF CHADD/ARB ordered at discharge?: No Reason CHADD/ARB not ordered?: Worsening renal disease Documented LVEF (%): 60 Code Visit Inpatient E&M: [id number] Disch Hosp
--- NOTE | 2018-01-21 15:30 | NURSING ---
CALLED REPORT TO [facility]. NO QUESTIONS.
--- NOTE | 2018-01-21 15:36 | NURSING ---
CALLED REPORT TO [facility] [place].
== END 2018-01-21 17:38 | disposition short-term general hospital (02) | DRG 291 ==
LOC: ED 17:02 → PCU 17:33
PROVIDERS: Family Medicine; Internal Medicine; Internal Medicine Cardiovascular Disease; Internal Medicine Critical Care Medicine; Internal Medicine Nephrology; Admitting Provider Hospitalist; Emergency Provider Emergency Medicine; Family Provider Family Medicine; PCP Family Medicine; Visit Provider Student in an Organized Health Care Education/Training Program
DX: I13.0 Hypertensive heart and chronic kidney disease with heart failure and stage 1 through stage 4 chronic kidney disease, or unspecified chronic kidney disease (principal); J96.21 Acute and chronic respiratory failure with hypoxia; I50.33 Acute on chronic diastolic (congestive) heart failure; Z68.42 Body mass index [BMI] 45.0-49.9, adult; N17.9 Acute kidney failure, unspecified; I24.8 Other forms of acute ischemic heart disease; Z23 Encounter for immunization; N18.3 Chronic kidney disease, stage 3 (moderate); E11.22 Type 2 diabetes mellitus with diabetic chronic kidney disease; E78.5 Hyperlipidemia, unspecified; K55.20 Angiodysplasia of colon without hemorrhage; I27.20 Pulmonary hypertension, unspecified; I35.0 Nonrheumatic aortic (valve) stenosis; Z87.891 Personal history of nicotine dependence; Z99.81 Dependence on supplemental oxygen; D50.9 Iron deficiency anemia, unspecified; E66.01 Morbid (severe) obesity due to excess calories; Z79.84 Long term (current) use of oral hypoglycemic drugs; I65.29 Occlusion and stenosis of unspecified carotid artery; J44.9 Chronic obstructive pulmonary disease, unspecified
CPT/HCPCS: 36415; 36600; 71045; 71046; 80048; 80053; 82274; 82728; 82803; 82962; 83540; 83550; 83735; 83880; 84100; 84484; 85025; 86850; 86900; 86920; 86922; 93005; 93306; 94002; 94003; 94640; 94667; 94668; 97110; 97116; 97162; 97165; 97530; 97802; 99283; J7040; P9016; Q9957; 90686; A4216; C8929; J1940; J2405

== ENCOUNTER → 2018-03-24 17:02 | Outpatient (CLI) | payer MEDICARE, OTHER, SELFPAY ==
[2018-02-17 14:37] VITALS: BMI 46.4
--- NOTE | 2018-03-24 17:09 | RAD_ITS ---
STUDY: X-RAY - RIGHT SHOULDER REASON FOR EXAM: Bilateral shoulder pain. TECHNIQUE: 4 view(s) of the shoulder. COMPARISON: None. FINDINGS: The mild inferior displacement of the glenohumeral articulation on the AP views is likely secondary to the cephalad projection from kyphosis as is no apparent displacement on the scapular Y view. There is acromioclavicular arthrosis. Normal acromion. Normal humeral head and visualized proximal humerus. The soft tissue structures are unremarkable. There are increased interstitial lung markings. RAD/Shoulder min 2 Views IMPRESSION: Acromioclavicular arthrosis. Electronically Signed: Yossi Farmer MD at 14:27 EST Tel , Service support ,
--- NOTE | 2018-03-24 17:09 | RAD_ITS ---
STUDY: X-RAY - LEFT SHOULDER REASON FOR EXAM: Female, 67 years old. Lateral shoulder pain TECHNIQUE: 5 view(s) of the shoulder. COMPARISON: January 02, 2018 chest x-ray FINDINGS: The patient is kyphotic. Y view demonstrates that there is no evidence of dislocation. However the AP view shows increased distance of the acromial humeral head space which is similar to the prior chest x-ray January 02, 2018. There is degenerative change of the glenohumeral joint. There is degenerative arthrosis of the acromioclavicular joint without inferior osseous spur formation. Normal acromion. Normal humeral head and visualized proximal humerus. The soft tissue structures are unremarkable. Visualized increased interstitial markings in the left lung. RAD/Shoulder min 2 Views IMPRESSION: Due to kyphosis there is a forward appearance of the humeral head. Y-view shows that there is no dislocation. There is degenerative change in the glenohumeral joint and acromioclavicular joint. Consider follow-up MRI or CT for clarification if appropriate. Electronically Signed: Dipti Aguirre MD at 2:03 EST Tel , Service support ,
== END ==
PROVIDERS: Family Provider Family Medicine; PCP Family Medicine; Referring Provider Family Medicine; Visit Provider Family Medicine
DX: M25.511 Pain in right shoulder (principal); M25.512 Pain in left shoulder
CPT/HCPCS: 73030

== ENCOUNTER 2018-04-01 20:47 | Inpatient (IN) | payer MEDICARE, OTHER, SELFPAY ==
[2018-02-17 14:37] VITALS: BMI 46.4
[2018-04-01 20:50] VITALS: BP 135/50; PULSE 79; RESP 16; TEMP 36.8; O2SAT 99; BMI 44.2
[2018-04-01 21:00] VITALS: PULSE 83; O2SAT 100
--- NOTE | 2018-04-01 21:04 | EKG12_ITS ---
Test Reason : SOB,PALPITATIONS Blood Pressure : / mmHG Vent. Rate : 085 BPM Atrial Rate : 085 BPM P-R Int : 150 ms QRS Dur : 146 ms QT Int : 432 ms P-R-T Axes : 079 096 033 degrees QTc Int : 514 ms Sinus rhythm with occasional Premature ventricular complexes Right bundle branch block Abnormal ECG Confirmed by HARMAN GAMBOA, VIC ([id number]), makeup editor MONA NGO ([id number] on 04/03/2018 3:50:36 PM Referred By: Vic Chne Confirmed By:VIC HAMMER MD
[2018-04-01 21:23] VITALS: PULSE 89; RESP 18
[2018-04-01] MEDS: Ipratropium/Albuterol Sulfate 3 ML AMPUL.NEB INHALATION (21:23)
[2018-04-01] MEDS: MethylPREDNISolone 125 MG/2 ML Vial IV (21:32)
[2018-04-01 21:38] LABS: Absolute Lymphocyte Count 0.77 X10^3/ul (0.83-4.51); Absolute Neutrophil Count 12.2 X10^3/uL (2.0-7.7); Basophil# 0.03 X10^3/uL; Basophil% 0.2 % (0-1); Eosinophil# 0.24 X10^3/uL; Eosinophils% 1.7 % (0-5); Hematocrit 29.8 % (37-47); Hemoglobin 8.5 g/dl (12.0-15.0); Lymphocyte # 0.77 X10^3/ul (4.0); Mean Corp Hgb Conc 28.2 g/gl (32-36); Mean Corpuscular Hgb 28.4 pg (27.0-32.0); Mean Corpuscular Volume 100.7 fL (81-99); Monocyte% 7.6 % (0-10); Neutrophil # 12.17 X10^3/uL (2.7-7.7); Neutrophil % 84.5 % (47-70); POSITIVE COUNT NO; POSITIVE DIFFERENTIAL NO; POSITIVE MORPHOLOGY NO; Platelet Count 396 K/mm3 (150-450); RBC Distribution Width CV 15.1 % (11.6-14.6); RBC Distribution Width SD 54.3 fl (35.1-43.9); Red Blood Count 2.96 M/mm3 (4.2-5.4); White Blood Count 14.4 K/mm3 (4.4-11.0)
--- NOTE | 2018-04-01 21:50 | RAD_ITS ---
STUDY: X-RAY CHEST REASON FOR EXAM: Female, 67 years old. Palpitations TECHNIQUE: PA and lateral views of the chest. COMPARISON: January 07, 2018 chest x-ray FINDINGS: The lungs are clear and expanded. There is no demonstrated pleural abnormality. There is borderline cardiomegaly. Normal mediastinum and deepthi. Normal visualized pulmonary arteries. There is atherosclerotic calcification of the aortic arch with tortuosity. There are diffuse degenerative changes of the visualized thoracic spine. Normal visualized ribs, clavicles, and shoulders. There is no demonstrated abnormality of the visualized soft tissue structures of the upper abdomen. RAD/Chest PA and Lateral IMPRESSION: Degenerative changes, as described above. No demonstrated acute cardiopulmonary process. Electronically Signed: Dipti Aguirre MD at 22:04 EST Tel , Service support ,
[2018-04-01 21:56] LABS: Anion Gap 7 (5-15); BUN 19 mg/dL (7-18); BUN/Creat Ratio 16.5 RATIO (10-20); Calcium,Total 8.5 mg/dL (8.5-10.1); Chloride 91 mmol/L (98-107); Creatinine, Serum 1.15 mg/dL (0.55-1.02); EST Glomerular Filtration Rate 50 mL/min (>60); Est Glom Filt Rate - Afr Amer 60 mL/min (>60); Estimated Creatinine Clearance 38.19 ml/min; Glucose 209 mg/dL (74-106); Potassium 4.5 mmol/L (3.5-5.1); Sodium Level 141 mmol/L (136-145)
--- NOTE | 2018-04-01 22:53 | ED.VISSUMM ---
- ER Visit Summary Date of Service: 04/01/18 Chief Complaint: [Shortness of breath and palpitations] History of Present Illness: The patient is a 67 F [presents to the emergency department with complaint of palpitations that started around noon. Patient states that she started feeling like her heart was pounding and she had retrosternal discomfort which then caused her to have increasing shortness of breath. Patient states that her chest discomfort eventually resolved. Patient still felt very short of breath and EMS was called who bring her in on a nonrebreather mask. Patient normally wears 6 L of oxygen at home. Patient has a history of COPD as well as history of diabetes, hypertension, high cholesterol, CHF, and aortic stenosis history. Patient tells me that in January she had a heart catheterization to evaluate her aortic valve at the [facility]. Patient was told she was not a surgical candidate yet.] Physical Examination: [HEENT-PERRLA, EOMI. Cranial nerves II through XII grossly intact. TMs clear. Mucous membranes moist. No adenopathy. Cardiovascular-regular rate and 3 out of 6 systolic ejection murmur noted. Lungs-admission bilaterally with expiratory wheezes bilaterally. Patient is tachypneic. No accessory muscle use or retractions. Abdomen-normoactive bowel sounds, soft, nontender, no rebound or rigidity, no peritoneal signs. Extremities-intact ?4, normal range of motion, normal pulses, atraumatic] Test Results: [EKG obtained on arrival showed a sinus rhythm with a ventricular rate of 85 bpm with occasional PVCs and a right bundle branch block. CBC with differential obtained showed a white blood cell count of 14.4, hemoglobin 8.5, hematocrit 29.8, platelets 396. Chemistries unremarkable. BUN was 19 and creatinine 1.15. Troponin was 0.045. BNP was 115. Chest x-ray showed degenerative changes otherwise nothing acute.] Emergency Department Course and Treatment: [Patient was given a DuoNeb aerosol as well as Solu-Medrol 125 mg IV. Patient did feel improved after treatment.] Treatment Plan: [Admit as patient continues to wheeze and feel somewhat dyspneic.] Disposition: [Admit] Impression: [Palpitations COPD exacerbation Chest pain] This note was generated with [employer] dictation software. It may contain incorrect words, spelling, and punctuation that were not noted in review of the chart prior to signing ED Disposition - Plan for ED Patient: Chief Complaint: Palpitations Referrals: Vic Chen MD [Primary Care Provider] -
--- NOTE | 2018-04-01 22:57 | ED.DCSUM_ITS ---
- ER Visit Summary Date of Service: 04/01/18 Chief Complaint: [Shortness of breath and palpitations] History of Present Illness: The patient is a 67 F [presents to the emergency department with complaint of palpitations that started around noon. Patient states that she started feeling like her heart was pounding and she had retrosternal discomfort which then caused her to have increasing shortness of breath. Patient states that her chest discomfort eventually resolved. Patient still felt very short of breath and EMS was called who bring her in on a nonrebreather mask. Patient normally wears 6 L of oxygen at home. Patient has a history of COPD as well as history of diabetes, hypertension, high c holesterol, CHF, and aortic stenosis history. Patient tells me that in January she had a heart catheterization to evaluate her aortic valve at the [facility]. Patient was told she was not a surgical candidate yet.] Physical Examination: [HEENT-PERRLA, EOMI. Cranial nerves II through XII grossly intact. TMs clear. Mucous membranes moist. No adenopathy. Cardiovascular-regular rate and 3 out of 6 systolic ejection murmur noted. Lungs-admission bilaterally with expiratory wheezes bilaterally. Patient is tachypneic. No accessory muscle use or retractions. Abdomen-normoactive bowel sounds, soft, nontender, no rebound or rigidity, no peritoneal signs. Extremities-intact ?4, normal range of motion, normal pulses, atraumatic] Test Results: [EKG obtained on arrival showed a sinus rhythm with a ventricular rate of 85 bpm with occasional PVCs and a right bundle branch block. CBC with differential obtained showed a white blood cell count of 14.4, hemoglobin 8.5, hematocrit 29.8, platelets 396. Chemistries unremarkable. BUN was 19 and creatinine 1.15. Troponin was 0.045. BNP was 115. Chest x-ray showed degenerative changes otherwise nothing acute.] Emergency Department Course and Treatment: [Patient was given a DuoNeb aerosol as well as Solu-Medrol 125 mg IV. Patient did feel improved after treatment.] Treatment Plan: [Admit as patient continues to wheeze and feel somewhat dyspneic.] Disposition: [Admit] Impression: [Palpitations COPD exacerbation Chest pain] This note was generated with [employer] dictation software. It may contain incorrect words, spelling, and punctuation that were not noted in review of the chart prior to signing ED Disposition - Plan for ED Patient: Chief Complaint: Palpitations Referrals: Vic Chen MD [Primary Care Provider] -
--- NOTE | 2018-04-01 23:03 | HP.PCM_ITS ---
Problem List (1) COPD exacerbation Status: Acute (2) Depression Status: Chronic Qualifiers: Depression Type: unspecified Qualified Code(s): F32.9 - Major depressive disorder, single episode, unspecified (3) Morbid obesity Status: Chronic (4) Aortic valve stenosis Status: Chronic Qualifiers: Cardiac valve disease etiology: nonrheumatic Qualified Code(s): I35.0 - Nonrheumatic aortic (valve) stenosis (5) Pulmonary hypertension Status: Chronic (6) CKD stage 3 secondary to diabetes Status: Chronic (7) Chronic diastolic (congestive) heart failure Status: Chronic (8) Cerebral infarction, unspecified Status: Chronic Qualifiers: Cerebral infarction mechanism: unspecified mechanism Qualified Code(s): I63.9 - Cerebral infarction, unspecified (9) Anxiety Status: Chronic (10) Anemia Status: Chronic Qualifiers: Anemia type: iron deficiency Iron deficiency anemia type: chronic blood loss Qualified Code(s): D50.0 - Iron deficiency anemia secondary to blood loss (chronic) (11) Carotid artery stenosis Status: Chronic Qualifiers: Laterality: unspecified laterality Qualified Code(s): I65.29 - Occlusion and stenosis of unspecified carotid artery (12) Chronic hypoxemic respiratory failure Status: Chronic (13) Pulmonary fibrosis Status: Chronic (14) Tobacco dependence in remission Status: Chronic (15) Stage 3 severe COPD by GOLD classification Status: Chronic (16) Diabetes mellitus type II Status: Chronic (17) Pulmonary hypertension Status: Chronic Comment: With PA pressures 55 by cardiac catheterization (18) Hypertension Status: Chronic Qualifiers: Hypertension type: essential hypertension Qualified Code(s): I10 - Essential (primary) hypertension (19) HLD (hyperlipidemia) Status: Chronic Qualifiers: Hyperlipidemia type: pure hypercholesterolemia Qualified Code(s): E78.00 - Pure hypercholesterolemia, unspecified; E78.0 - Pure hypercholesterolemia (20) GI AVM (gastrointestinal arteriovenous vascular malformation) Status: Chronic History of Present Illness Date of Admission: 04/01/18 Chief Complaint: Dyspnea The patient is a 67 y/o F w/ PMHx: Chronic COPD and Pulmonary Fibrosis w/ Chronic Hypoxic Respiratory Failure (6L NC), Pulmonary HTN, Tobacco use history, History of CVA, HTN, HLD, Diastolic CHF, CKD stage III, History of GI Bleed w/ AVM, Diabetes mellitus type II, Morbid Obesity, Valvular Heart Disease (, mild on most recent cardiac catheterization 05/2017) Chronic Anemia who presents to the [facility] ED on 04/01/18 with history of onset palpitations with central chest pressure without radiation with associated dyspnea, nausea without emesis and also noted recently worsened reflux over the last 24 hours with self administration increased GERD regimen in addition to ~ 1 week history of increased mildly to moderately productive cough. Patient notes the chest pressure has been constant since initial onset at noon but she notes it was worse near dinner time. She notes 7-8/10 after dinner and currently improved to 5-6/10. Work-up in the ED included T 98.2, heart rate 79, BP 135/50, respiratory rate 18, 99% on a nonrebreather--> percent on 6 L nasal cannula, CBC with WBC 14.4, heme globin 8.5, platelets 396 with left shift, BMP with chloride 91, carbon dioxide 43, BUN/Cr 19/1.15, glucose 205, troponin 0.045, BNP 115, chest x-ray with chronic changes with no acute cardiopulmonary process EKG with sinus rhythm with occasional PVC. In the ED patient administered Solu-Medrol, DuoNeb. Past Medical History Past Medical History (Chronic Problems): Chronic Problems (Last Updated 01/02/18 @ 17:11 by David Montana MD) Depression (Chronic) Morbid obesity (Chronic) Aortic valve stenosis (Chronic) Pulmonary hypertension (Chronic) CKD stage 3 secondary to diabetes (Chronic) Chronic diastolic (congestive) heart failure (Chronic) Cerebral infarction, unspecified (Chronic) Palpitations (Chronic) Anxiety (Chronic) Left atrial enlargement (Chronic) Hypersomnia (Chronic) Anemia (Chronic) Carotid artery stenosis (Chronic) Chronic hypoxemic respiratory failure (Chronic) Pulmonary fibrosis (Chronic) 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 3 severe COPD by GOLD classification (Chronic) Aortic stenosis (Chronic) Moderate to severe with valve area 1.1 on cardiac catheterization in 2013 Diabetes mellitus type II (Chronic) Pulmonary hypertension (Chronic) With PA pressures 55 by cardiac catheterization Hypertension (Chronic) HLD (hyperlipidemia) (Chronic) 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) Medical History: Medical History (Last Updated 01/02/18 @ 17:11 by David Montana MD) Aortic valve stenosis (Chronic) I35.0 Pulmonary hypertension (Chronic) I27.20 Palpitations (Chronic) R00.2 Left atrial enlargement (Chronic) I51.7 Hypersomnia (Chronic) G47.10 Anemia (Chronic) D64.9 Carotid artery stenosis (Chronic) I65.29 Chronic hypoxemic respiratory failure (Chronic) J96.11 Pulmonary fibrosis (Chronic) J84.10 Tobacco dependence in remission (Chronic) F17.201 Stage 3 severe COPD by GOLD classification (Chronic) J44.9 Aortic stenosis (Chronic) Moderate to severe with valve area 1.1 on cardiac catheterization in 2013 Diabetes mellitus type II (Chronic) Pulmonary hypertension (Chronic) With PA pressures 55 by cardiac catheterization Hypertension (Chronic) I10 HLD (hyperlipidemia) (Chronic) E78.5 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 Blackmon in 2011, suspected AV malformations Acute on chronic anemia (Inactive) Allergies No Known Allergies Allergy (Verified 04/01/18 20:56) Home Medications: Ambulatory Orders Medication Instructions Recorded Metformin HCl [Glucophage] 1,000 mg PO BIDCM 01/15/14 Simvastatin [Zocor] 20 mg PO QHS 01/15/14 Escitalopram Oxalate [Lexapro] 10 mg PO DAILY 06/29/15 traZODone [Desyrel] 100 mg PO QHS PRN PRN 06/29/15 Budesonide/Formoterol Fumarate 2 puff IH BID 03/27/17 [Symbicort 160-4.5 Mcg Inhaler] Fluticasone 0.05% [Flonase Nasal 1 spray NASAL BID 04/24/17 [place]] Acetaminophen [Tylenol Tablet] 650 mg PO Q6H PRN PRN tab 06/10/17 ferrous sulfate 325 mg (65 mg 325 mg PO TID tab 09/09/17 iron) tablet metoprolol tartrate 50 mg tablet 50 mg PO BID #180 tab 11/12/17 Albuterol Sulfate [Ventolin Hfa] 1 - 2 puff INHALATION PRN PRN 01/02/18 potassium chloride ER 20 mEq PO 90 Days #90 tab 02/17/18 tablet,extended release(part/cryst) Ipratropium/Albuterol Sulfate 3 ml INHALATION Q4H PRN 04/01/18 [Duoneb] Torsemide [Demadex] 100 mg PO DAILY 04/01/18 Surgical History: Surgical History (Last Updated 02/17/18 @ 14:40 by Candy Lyon) History of hernia repair Z98.890, Z87.19 History of hysterectomy Z90.710 History of left heart catheterization Z98.890 X 2 Surgical History: herniorrhaphy, hysterectomy Psychiatric History: Anxiety, Depression 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 Tobacco Use: Non-smoker Alcohol: Rare Drugs: None - *Family History Paternal Family History: Family History (Last Reviewed 02/17/18 @ 14:40 by Candy Lyon) Mother Heart disease Father CAD (coronary artery disease) Hypertension Brother Hypertension History Items: Heart Disease Maternal Family History: Family History (Last Reviewed 02/17/18 @ 14:40 by Candy Lyon) Mother Heart disease Father CAD (coronary artery disease) Hypertension Brother Hypertension History Items: Heart Disease Review of Systems Constitutional: Reports: Malaise, Weakness, Fatigue. Denies: Chills, Fever, Weight Change HEENT: Denies: Head Aches, Sinus Congestion, Sinus Drainage Cardiovascular: Reports: Chest Pain, Chest Pressure, Heaviness. Denies: Edema, Light Headedness, Orthopnea, Palpitations, Syncope Respiratory: Reports: Cough, Shortness of Breath, Shortness of breath at rest, Shortness of breath upon exertion, Sputum production Gastrointestinal: Reports: Nausea. Denies: Abdominal Pain, Vomiting Genitourinary: Denies: Dysuria Musculoskeletal: Reports: Back Pain, Joint Pain. Denies: Joint Tenderness Skin: Denies: Rash, Wounds Neurological: Denies: Numbness, Tingling, Focal weakness Psychiatric: Reports: Anxiety, Depression. Denies: Homicidal Ideations, Suicidal Ideations Hematologic/ Lymphatic: Reports: Anemia. Denies: Easy Bruising, Easy Bleeding VTE Information - Inpt Only VTE Present on Admission: No VTE Mechan Device Prophylaxis: SCD's VTE Pharm Prophylaxis ordered?: Yes Patient Problems: Active and Suspected Problems (Last Updated 01/02/18 @ 17:11 by David Montana MD) COPD exacerbation (Acute) Subjective: Seated upright in ED bed, fatigued appearance, no acute distress currently, notes chest pressure has improved but still present, dyspnea still ongoing. Objective: Physical Examination: General: awake, alert, oriented x 3 and cooperative, seated upright in the ED bed, fatigued appearance, notes chest pressure has improved. Skin: normal color, turgor, no icterus, cyanosis except bilateral lower extremity chronic venous skin changes. HEENT: AT/NC, EOMI, PERRLA, dry MM, no carotid bruits or JVD noted; however, habitus makes examination difficult. Lungs: Breath sounds throughout, greater bilateral bases, mildly increased respiratory rate, mildly increased effort, very distant end expiratory wheeze noted. Heart: Regular rate and rhythm; no gallop, rub audible, SM. Abdomen: soft, obese, NTTP, ND, normal BS, no HSM; her habitus makes examination difficult. Extremities: no cyanosis, clubbing, see skin. Neurological: patient awake, alert, oriented x 3; cognitive function intact; pupils equally reactive to light and accomodation; cranial nerves II-XII grossly normal, moving all 4 extremities, no focal deficits, strength [place] to severely globally decreased secondary to acute presentation. Psychiatric: affect appears normal, no acute evidence of depressive or anxiety feelings. - Physical Exam Vital Signs Temp Pulse Resp BP Pulse Ox 98.2 F 89 18 135/50 H 100 04/01/18 20:50 04/01/18 21:23 04/01/18 21:23 04/01/18 20:50 04/01/18 21:00 Oxygen Flow Rate (L/min) 6 Oxygen Delivery Method Nasal Cannula Weight: 250 lb Body Mass Index (BMI) 44.2 Laboratory Tests Past 24 Hrs 04/01/18 04/01/18 04/01/18 21:30 21:30 21:30 WBC 14.4 H RBC 2.96 L Hgb 8.5 L Hct 29.8 L MCV 100.7 H MCH 28.4 MCHC 28.2 L RDW 15.1 H RDW Differential 54.3 H Plt Count 396 MPV 10.0 Immature Gran % (Auto) 0.600 Neut % (Auto) 84.5 H Lymph % (Auto) 5.0 L [place] % (Auto) 7.6 Eos % (Auto) 1.7 Baso % (Auto) 0.2 Absolute Neuts (auto) 12.2 H Absolute Lymphs (auto) 0.77 L Total Counted Not Reportable Sodium 141 Potassium 4.5 Chloride 91 L Carbon Dioxide 43.0 H Anion Gap 7 BUN 19 H Creatinine 1.15 H Estim Creat Clear Calc 38.19 Est GFR (MDRD) Af Amer 60 Est GFR (MDRD) Non-Af 50 L BUN/Creatinine Ratio 16.5 Glucose 209 H Calcium 8.5 Troponin I 0.045 B-Natriuretic Peptide 115.0 H Assessment/Plan All Active Problems (Last Updated 01/02/18 @ 17:11 by David Montana MD) COPD exacerbation (Acute) Diastolic CHF, acute on chronic (Acute) CVA (cerebral vascular accident) (Resolved) CVA (cerebral vascular accident) (Resolved) History of GI bleeding (Resolved) The patient is a 67 y/o F w/ PMHx: Chronic COPD and Pulmonary Fibrosis w/ Chronic Hypoxic Respiratory Failure (6L NC), Pulmonary HTN, Tobacco use history, History of CVA, HTN, HLD, Diastolic CHF, CKD stage III, History of GI Bleed w/ AVM, Diabetes mellitus type II, Morbid Obesity, Valvular Heart Disease (, mild on most recent cardiac catheterization 05/2017) Chronic Anemia who presents to the [facility] ED on 04/01/18 with history of onset palpitations with central chest pressure without radiation with associated dyspnea, nausea without emesis and also noted recently worsened reflux over the last 24 hours with self administration increased GERD regimen in addition to ~ 1 week history of increased mildly to moderately productive cough. (1) Acute on chronic COPD exacerbation w/ Chronic Hypoxic Respiratory Failure w/ concurrent Pulmonary Fibrosis: CXR w/ chronic changes, CBC on admission w/ WBC 14.4 with L shift. Will admit to [facility], maintain on oxygen with wean as tolerated to home oxygen supplementation, will obtain ABG, continue ATC duonebs, PRN alb uterol, IV methylprednisolone , HOB, IS parameters, pending sputum culture and respiratory viral panel. (2) Chest Pain: EKG in ED acute evidence of ischemia, CXR w/ chronic changes, initial trop normal x1. Will place on a monitored bed to assure no acute myocardial infarction with serial cardiac enzymes and EKGs. ASA, NG, morphine. Recent 01/2018 [facility] cardiac catheterization w/ hyperdynamic cardiac output, mild mitral and aortic stenosis by gradient and valve areas, severe pulmonary hypertension and elevated biventricular filling pressures with right-sided pressures out of proportion to left-sided pressures, nonobstructive coronary artery disease with mild luminal irregularities only. Recent Cardiology visit 02/2018. (3) Diastolic CHF, Chronic: Continue home regimen asa, metoprolol, statin, torsemide, not on ACEI/ARB possibly secondary to renal disease history. (4) Valvular Heart Disease: Noted history, prior ECHO w/ moderate to severe but 05/2017 cardiac catheterization more moderate in appearance w/ medication management recommendations per [facility]. (5) Hypertension: Continue home regimen including metoprolol, PRN hydralazine. (6) Hyperlipidemia: Continue home statin regimen. (7) History of CVA: Continue home asa, statin, BP, DM regimen. (8) Chronic Anemia, Fe Deficiency Anemia, AOCD: Admission Hgb 8.5, baseline 8 range, stable, repeat in AM, continue Fe supplementation. (9) CKD stage III: Admission BUN/Cr 19/1.15, baseline Cr 1-1.3, stable, repeat in AM. (10) Morbid Obesity: Weight loss and lifestyle changes encouraged, nutrition consulted. (11) Diabetes mellitus type II: Hold oral home regimen, ADA diet, accu checks w/ ISS. (12) Anxiety and Depression: Continue home lexapro and trazodone regimen. (13) DVT Prophylaxis: SCDs, heparin. (14) CODE status: Discussed CODE status at length including difference between FULL code, DNR-CCA and DNR-CC status. Following discussions about the differences in these status, requested Full Code status. Her Advanced Care Planning Face to Face Time: 16 minutes. Code Visit Inpatient E&M: 56659 Init Hosp L3 Procedures: 56302 Advncd Care Plan 30 Min
[2018-04-01 23:07] VITALS: BP 124/55; PULSE 81; RESP 16; O2SAT 92
[2018-04-01 23:58] VITALS: BP 133/52; PULSE 81; RESP 18; TEMP 36.4; O2SAT 95
[2018-04-02] VITALS (22 sets, daily range): BP systolic 110–138; BP diastolic 41–63; PULSE 64–95; RESP 12–22; TEMP 36.4–37; O2SAT 91–98; BMI 44.2; BMI 44.3
[2018-04-02 01:23] LABS: Magnesium 1.6 mg/dL (1.6-2.6)
[2018-04-02 01:41] LABS: Allen Test POS; Base Excess 17 mmol/L (-2 to +2); Bicarbonate 43.8 mmol/L (22-26); Blood Gas Specimen Type ART; O2 Delivery Device Nasal Can; PO2 102 mmHG (75-100); SITE L Radial; SO2 97 % (95-99); Time Given 120; Total Carbon Dioxide 46 mmol/L; pCO2 87.9 mmHg (35-45); pH 7.31 (7.35-7.45)
[2018-04-02] MEDS: Ipratropium/Albuterol Sulfate 3 ML AMPUL.NEB INHALATION ×6 (02:10→23:23)
[2018-04-02 04:40] LABS: Basophil# 0.01 X10^3/uL; Basophil% 0.1 % (0-1); Eosinophil# 0.01 X10^3/uL; Eosinophils% 0.1 % (0-5); Hematocrit 29.5 % (37-47); Hemoglobin 8.4 g/dl (12.0-15.0); Lymphocyte % 1.7 % (19-41); Mean Corp Hgb Conc 28.5 g/gl (32-36); Mean Corpuscular Hgb 28.5 pg (27.0-32.0); Mean Platelet Vol. 9.6 fl (6.2-12.0); Monocyte# 0.09 X10^3/uL; Monocyte% 0.5 % (0-10); Neutrophil # 17.02 X10^3/uL (2.7-7.7); Neutrophil % 97.1 % (47-70); Platelet Count 385 K/mm3 (150-450); RBC Distribution Width CV 14.8 % (11.6-14.6); RBC Distribution Width SD 53.1 fl (35.1-43.9); Red Blood Count 2.95 M/mm3 (4.2-5.4); White Blood Count 17.5 K/mm3 (4.4-11.0)
[2018-04-02 04:41] LABS: Differential Indicated SCAN CRITERIA MET; POSITIVE COUNT NO; POSITIVE DIFFERENTIAL YES; POSITIVE MORPHOLOGY NO
[2018-04-02 04:48] LABS: Anion Gap 11 (5-15); BUN 23 mg/dL (7-18); BUN/Creat Ratio 21.5 RATIO (10-20); Calcium,Total 8.6 mg/dL (8.5-10.1); Chloride 89 mmol/L (98-107); Creatinine, Serum 1.07 mg/dL (0.55-1.02); EST Glomerular Filtration Rate 54 mL/min (>60); Est Glom Filt Rate - Afr Amer 65 mL/min (>60); Estimated Creatinine Clearance 39.25 ml/min; Glucose 272 mg/dL (74-106); Potassium 4.5 mmol/L (3.5-5.1); Sodium Level 139 mmol/L (136-145)
--- NOTE | 2018-04-02 05:55 | EKG12_ITS ---
Test Reason : AM EKG Blood Pressure : / mmHG Vent. Rate : 078 BPM Atrial Rate : 078 BPM P-R Int : 140 ms QRS Dur : 140 ms QT Int : 442 ms P-R-T Axes : 069 078 026 degrees QTc Int : 503 ms Normal sinus rhythm Right bundle branch block Abnormal ECG Confirmed by HARMAN GAMBOA, DEVIN ([id number]), photograph editor MONA NGO ([id number]) on 04/03/2018 4:10:01 PM Referred By: ESTELA Confirmed By:DEVIN HAMMER MD
--- NOTE | 2018-04-02 06:30 | EKG12_ITS ---
Test Reason : ADM EKG Blood Pressure : / mmHG Vent. Rate : 091 BPM Atrial Rate : 091 BPM P-R Int : 152 ms QRS Dur : 140 ms QT Int : 428 ms P-R-T Axes : 049 073 029 degrees QTc Int : 526 ms Normal sinus rhythm Right bundle branch block Abnormal ECG Confirmed by HARMAN GAMBOA, VIC ([id number]), photography editor MONA NGO ([id number] on 04/03/2018 4:11:12 PM Referred By: Vic Chen Confirmed By:VIC HAMMER MD
[2018-04-02] MEDS: 0.9% NaCl Peripheral Flush Adult/Peds IV ×3 (06:48→21:00)
[2018-04-02 07:21] LABS: Bedside Glucose 246 mg/dL (70-110)
[2018-04-02] MEDS: Insulin Lispro 100 UNIT/ML INSULN.PEN SC ×4 (08:43→20:57)
[2018-04-02] MEDS: Aspirin 81 MG TAB.CHEW PO (08:45)
[2018-04-02] MEDS: Torsemide 100 MG Tablet PO (08:45)
[2018-04-02] MEDS: Ferrous Sulfate 325 MG Tablet PO ×3 (08:45→16:22)
[2018-04-02] MEDS: Metoprolol Tartrate 50 MG Tablet PO ×2 (08:45→20:59)
[2018-04-02] MEDS: Escitalopram Oxalate 10 MG Tablet PO (08:45)
[2018-04-02] MEDS: guaiFENesin 600 MG Tablet PO ×2 (08:45→21:00)
[2018-04-02] MEDS: Heparin Injection (Vial) 5,000 UNIT/ML VIAL 5000 UNIT SC ×2 (08:45→20:57)
--- NOTE | 2018-04-02 11:41 | CASEMGMT ---
Addendum entered by Nunu Wilkins 04/03/18 13:24: This RN CM spoke with Juanis at [facility] and she states that they closed palliative care on pt s/p recent hospital visits and no return calls from pt, but she states that they will re-open pt per her request. She asks that clinicals be faxed at this time and this RN CM faxed them at this time. Pt updated on all and voices understanding. Ander UNDERWOOD CM Original Note: Addendum entered by Nunu Wilkins 04/03/18 09:36: Pt is also current with [facility]. Message left with Juanis at [facility] to call this RN WHITLEY back regarding pt per pt request to still be active with palliative care. Ander UNDERWOOD CM Original Note: RN WHITLEY assessment: Face to Face with patient for initial transition planning/care coordination assessment. RN WHITLEY introduced self and role at [facility], pt voices understanding and consents to assessment at this time. Pt is sitting up in chair in no distress at this time. Pt is A/O x4 at this time and answers all questions appropriately at this time. Care providers, pharmacy, and demographics verified at this time. PCP: Gustavo Specialists: madai Dixon; Duc, cardio Preferred Pharmacy: [facility] Insurance: [facility] A/B, [employer] Prescription Benefit: [employer] Living Will/HPOA: Pt states has LW/HPOA but they are no currently on file at [facility] and pt is aware of this. Pt states that her , Gamaliel Cyr, is HPOA. LNOK: Gamaliel Cyr, Living Arrangements: Pt states she lives with her in a 1story home with 1 step into home and states no concerns at home at this time. Pt states that she does have some difficulty with ADL's at times and that her has been cooking meals due to her back pain. Transportation: Pt states that her drives and states no transportation concerns at this time. DME/HHC: Pt states has the following DME: walk in shower, rollater, scooter, grab bars, and home oxygen 6 liters. Pt states has been in the process of transferring oxygen from [facility] to [facility]. Call to Katlin at [facility] and she states that they now have a 10L concentrator in stock and will be able to get pt set up with their equipment. Pt updated and voices understanding at this time. Pt has had a NIV in the past but was non-compliant and states was unable to wear the mask previously but pt states that the resp therapist last pm worked with her on getting the bipap mask fitted and she was able to keep bipap on all night and states she is interested in getting it set up again. Pt states 'I know that I really need to have this.' Pulmonology is not consulted on this visit, so call to Dr. Dixon's office and spoke with Alejandra UNDERWOOD regarding same. She states that she will work on getting new order for pt at this time and per Flash, pt will need F2F with pulmonology to get NIV approved so pt set up for pulm appt on 04/10/18 at 1315 at this time. Pt updated at this time and voices understanding. Pt has had [facility] in the past and has been to [facility] twice. Pt was current with [facility] but states due to recent admissions, etc., she has not returned calls to them at this time. This RN CM to call and f/u with [facility] regarding same, pt states she is still interested in having palliative care. Pt states is unsure about disposition at discharge. Pt is retired. Pt states does not smoke and drinks rarely. Pt states no further questions/concerns/needs at this time. CM to follow for any further discharge planning/needs. Advised pt to ask for CM if any further questions/concerns/needs arise, voices understanding. Plan: TBD Ander UNDERWOOD CM
[2018-04-02] MEDS: Pantoprazole Sodium 40 MG Tablet PO (11:54)
[2018-04-02 12:00] LABS: Bedside Glucose 290 mg/dL (70-110)
--- NOTE | 2018-04-02 13:16 | PN_ITS ---
<Shemar Butcher - Last Filed: 04/02/18 13:08> Patient Problems: Active and Suspected Problems (Last Updated 01/02/18 @ 17:11 by David Montana MD) COPD exacerbation (Acute) Subjective: Pt tolerated bipap last night well. She used to have NIV at home but sent it back as she had issues with the mask. She is satting well on 6 lpm which is her home dose. She feels that her SOB is improved. She is not wheezing. No increased LE edema. No CP/heaviness. No F/C. - Physical Exam General: Alert, Oriented x3, Cooperative HEENT: Atraumatic, PERRLA, EOMI, Normocephalic Neck: Supple, No JVD, Negative Carotid Bruits Lungs: Diminished Cardiovascular: Regular rate, No murmurs Abdomen: Bowel Sounds Present, Soft, Non Tender Extremities: No edema, Capillary Refill Less than 3 Seconds Skin: No rashes, No breakdown Musculoskeletal: No Tenderness to Palpation of Joints or Extremities Neurological: Cranial nerves II-XII grossly intact Psych/Mental Status: Normal Affect, Appropriate, Alert and oriented to time, place, person, mood and affect Vital Signs Temp Pulse Resp BP Pulse Ox 98.0 F 80 18 117/44 L 93 04/02/18 11:46 04/02/18 11:46 04/02/18 11:46 04/02/18 11:46 04/02/18 11:46 Oxygen Flow Rate (L/min) 6 Oxygen Delivery Method Nasal Cannula Weight: 249 lb 12.54 oz Body Mass Index (BMI) 44.2 Intake and Output for Last 24 Hours 03/31/18 04/01/18 04/02/18 23:59 23:59 23:59 Intake Total 725 / 725 Output Total 700 / 700 Balance 25 / 25 Microbiology Past 72 Hours 04/02/18 00:15 Respiratory Panel (PCR) - Final Mucosa - Nasopharyngeal Laboratory Tests Past 24 Hrs 04/01/18 04/01/18 04/01/18 21:30 21:30 21:30 WBC 14.4 H RBC 2.96 L Hgb 8.5 L Hct 29.8 L MCV 100.7 H MCH 28.4 MCHC 28.2 L RDW 15.1 H RDW Differential 54.3 H Plt Count 396 MPV 10.0 Immature Gran % (Auto) 0.600 Neut % (Auto) 84.5 H Lymph % (Auto) 5.0 L Lyon % (Auto) 7.6 Eos % (Auto) 1.7 Baso % (Auto) 0.2 Absolute Neuts (auto) 12.2 H Absolute Lymphs (auto) 0.77 L Total Counted Not Reportable Specimen Type Sample Site pH Bicarbonate Actual POC Total CO2 Base Excess O2 Saturation ABG pCO2 ABG pO2 Luis Fernando Test O2 Delivery Device Liter Flow Blood Gas Notified Whom Blood Gas Notified Time Sodium 141 Potassium 4.5 Chloride 91 L Carbon Dioxide 43.0 H Anion Gap 7 BUN 19 H Creatinine 1.15 H Estim Creat Clear Calc 38.19 Est GFR (MDRD) Af Amer 60 Est GFR (MDRD) Non-Af 50 L BUN/Creatinine Ratio 16.5 Glucose 209 H Calcium 8.5 Magnesium Troponin I 0.045 B-Natriuretic Peptide 115.0 H 04/02/18 04/02/18 04/02/18 00:55 01:29 03:42 WBC 17.5 H RBC 2.95 L Hgb 8.4 L Hct 29.5 L MCV 100.0 H MCH 28.5 MCHC 28.5 L RDW 14.8 H RDW Differential 53.1 H Plt Count 385 MPV 9.6 Immature Gran % (Auto) 0.500 Neut % (Auto) 97.1 H Lymph % (Auto) 1.7 L Lyon % (Auto) 0.5 Eos % (Auto) 0.1 Baso % (Auto) 0.1 Absolute Neuts (auto) 17.0 H Absolute Lymphs (auto) 0.30 L Total Counted Not Reportable Specimen Type ART Sample Site L Radial pH 7.31 L Bicarbonate Actual 43.8 H POC Total CO2 46 Base Excess 17 H O2 Saturation 97 ABG pCO2 87.9 H* ABG pO2 102 H Luis Fernando Test POS O2 Delivery Device Nasal Can Liter Flow 6.0 Blood Gas Notified Whom [facility] Blood Gas Notified Time 120 Sodium Potassium Chloride Carbon Dioxide Anion Gap BUN Creatinine Estim Creat Clear Calc Est GFR (MDRD) Af Amer Est GFR (MDRD) Non-Af BUN/Creatinine Ratio Glucose Calcium Magnesium 1.6 Troponin I 0.057 H B-Natriuretic Peptide 04/02/18 04/02/18 03:42 03:42 WBC RBC Hgb Hct MCV MCH MCHC RDW RDW Differential Plt Count MPV Immature Gran % (Auto) Neut % (Auto) Lymph % (Auto) Lyon % (Auto) Eos % (Auto) Baso % (Auto) Absolute Neuts (auto) Absolute Lymphs (auto) Total Counted Specimen Type Sample Site pH Bicarbonate Actual POC Total CO2 Base Excess O2 Saturation ABG pCO2 ABG pO2 Luis Fernando Test O2 Delivery Device Liter Flow Blood Gas Notified Whom Blood Gas Notified Time Sodium 139 Potassium 4.5 Chloride 89 L Carbon Dioxide 39.0 H Anion Gap 11 BUN 23 H Creatinine 1.07 H Estim Creat Clear Calc 39.25 Est GFR (MDRD) Af Amer 65 Est GFR (MDRD) Non-Af 54 L BUN/Creatinine Ratio 21.5 H Glucose 272 H Calcium 8.6 Magnesium Troponin I 0.044 B-Natriuretic Peptide POC Glucose 04/02/18 04/02/18 11:53 06:52 POC Glucose 290 H 246 H Medical Necessity - Tobacco Use Smoking Status: Former smoker Tobacco Use: Non-smoker Assessment/Plan All Active Problems (Last Updated 01/02/18 @ 17:11 by David Montnaa MD) COPD exacerbation (Acute) Diastolic CHF, acute on chronic (Acute) CVA (cerebral vascular accident) (Resolved) CVA (cerebral vascular accident) (Resolved) History of GI bleeding (Resolved) 1. Acute on chronic COPD exacerbation with chronic mixed resp failure complicated by aortic stenosis, pulmonary fibrosis - continue steroids, aerosols, Bipap at night and at rest. ABG was acidotic with CO2 retention. CXR without acute process. Pt greatly improved. Will continue same therapy overnight. She follows with all pulmonary. SW is calling to find out if she can get the NIV back at home. Baseline O2 is 6lpm. 2. Chronic diastolic HF - no acute exacerbation. continue BB, no jesus, suspected 2/2 CKD. 3. Severe - she has been evaluated for valve replacement and told she was not a candidate. Pt of Dr. Xavier 4. CKD III - stable 5. HTN - stable 6. HLD - statin 7. Hx CVA - on asa, statin 8. Iron deficiency anemia - po iron. 9. DMt2 with morbid obesity - orals held, SSI 10. ANx/Depression - SSRI/trazodone DVT ppx: Heparin DC planning: likely home tomorrow, improved. Ideally she should get a new NIV for home This patient was seen by Shemar Butcher PA-C under the supervision of Dr. Lazo. <Dandy Lazo - Last Filed: 04/02/18 14:19> - Physical Exam Vital Signs Temp Pulse Resp BP Pulse Ox 98.0 F 80 18 117/44 L 93 04/02/18 11:46 04/02/18 11:46 04/02/18 11:46 04/02/18 11:46 04/02/18 11:46 Oxygen Flow Rate (L/min) 6 Oxygen Delivery Method Nasal Cannula Weight: 113.3 kg Body Mass Index (BMI) 44.2 Intake and Output for Last 24 Hours 03/31/18 04/01/18 04/02/18 23:59 23:59 23:59 Intake Total 725 / 725 Output Total 700 / 700 Balance Microbiology Past 72 Hours 04/02/18 00:15 Respiratory Panel (PCR) - Final Mucosa - Nasopharyngeal Laboratory Tests Past 24 Hrs 04/01/18 04/01/18 04/01/18 21:30 21:30 21:30 WBC 14.4 H RBC 2.96 L Hgb 8.5 L Hct 29.8 L MCV 100.7 H MCH 28.4 MCHC 28.2 L RDW 15.1 H RDW Differential 54.3 H Plt Count 396 MPV 10.0 Immature Gran % (Auto) 0.600 Neut % (Auto) 84.5 H Lymph % (Auto) 5.0 L Lyon % (Auto) 7.6 Eos % (Auto) 1.7 Baso % (Auto) 0.2 Absolute Neuts (auto) 12.2 H Absolute Lymphs (auto) 0.77 L Total Counted Not Reportable Specimen Type Sample Site pH Bicarbonate Actual POC Total CO2 Base Excess O2 Saturation ABG pCO2 ABG pO2 Luis Fernando Test O2 Delivery Device Liter Flow Blood Gas Notified Whom Blood Gas Notified Time Sodium 141 Potassium 4.5 Chloride 91 L Carbon Dioxide 43.0 H Anion Gap 7 BUN 19 H Creatinine 1.15 H Estim Creat Clear Calc 38.19 Est GFR (MDRD) Af Amer 60 Est GFR (MDRD) Non-Af 50 L BUN/Creatinine Ratio 16.5 Glucose 209 H Calcium 8.5 Magnesium Troponin I 0.045 B-Natriuretic Peptide 115.0 H 04/02/18 04/02/1804/02/19 00:55 01:29 03:42 WBC 17.5 H RBC 2.95 L Hgb 8.4 L Hct 29.5 L MCV 100.0 H MCH 28.5 MCHC 28.5 L RDW 14.8 H RDW Differential 53.1 H Plt Count 385 MPV 9.6 Immature Gran % (Auto) 0.500 Neut % (Auto) 97.1 H Lymph % (Auto) 1.7 L Lyon % (Auto) 0.5 Eos % (Auto) 0.1 Baso % (Auto) 0.1 Absolute Neuts (auto) 17.0 H Absolute Lymphs (auto) 0.30 L Total Counted Not Reportable Specimen Type ART Sample Site L Radial pH 7.31 L Bicarbonate Actual 43.8 H POC Total CO2 46 Base Excess 17 H O2 Saturation 97 ABG pCO2 87.9 H* ABG pO2 102 H Luis Fernando Test POS O2 Delivery Device Nasal Can Liter Flow 6.0 Blood Gas Notified Whom [facility] MD Blood Gas Notified Time 120 Sodium Potassium Chloride Carbon Dioxide Anion Gap BUN Creatinine Estim Creat Clear Calc Est GFR (MDRD) Af Amer Est GFR (MDRD) Non-Af BUN/Creatinine Ratio Glucose Calcium Magnesium 1.6 Troponin I 0.057 H B-Natriuretic Peptide 04/02/18 04/02/18 03:42 03:42 WBC RBC Hgb Hct MCV MCH MCHC RDW RDW Differential Plt Count MPV Immature Gran % (Auto) Neut % (Auto) Lymph % (Auto) Lyon % (Auto) Eos % (Auto) Baso % (Auto) Absolute Neuts (auto) Absolute Lymphs (auto) Total Counted Specimen Type Sample Site pH Bicarbonate Actual POC Total CO2 Base Excess O2 Saturation ABG pCO2 ABG pO2 Luis Fernando Test O2 Delivery Device Liter Flow Blood Gas Notified Whom Blood Gas Notified Time Sodium 139 Potassium 4.5 Chloride 89 L Carbon Dioxide 39.0 H Anion Gap 11 BUN 23 H Creatinine 1.07 H Estim Creat Clear Calc 39.25 Est GFR (MDRD) Af Amer 65 Est GFR (MDRD) Non-Af 54 L BUN/Creatinine Ratio 21.5 H Glucose 272 H Calcium 8.6 Magnesium Troponin I 0.044 B-Natriuretic Peptide POC Glucose 04/02/18 04/02/18 11:53 06:52 POC Glucose 290 H 246 H Assessment/Plan This patient was seen in conjunction with Shemar Butcher PA-C . I have independently interviewed and examined the patient and reviewed pertinent historical, laboratory, and other data. Please refer to Shemar Butcher PA-C note for details of this patient's presentation, findings, and recommendations. I have reviewed Shemar Butcher PA-C note and concur with documented findings. In brief, patient is a 67-year-old female with past medical history significant for severe aortic stenosis, chronic hypoxic respiratory failure secondary to COPD, pulmonary hypertension as well as pulmonary fibrosis who presented with shortness of breath and assessment of acute on chronic hypoxic and hypercapnic respiratory failure was made patient admitted to a monitored bed Physical Examination: GENERAL: Dyspneic at rest HEENT: Clear conjunctiva, moist oral mucosa CHEST: Diminished to auscultation with occasional wheezes HEART: Regular S1 S2, systolic murmur NEONATAL NURSE PRACTITIONER: Awake, no lateralizing signs. Assessment: 1. Acute on chronic hypoxic and hypercapnic respiratory failure 2. Chronic diastolic CHF 3. Severe COPD 4. Pulmonary fibrosis 5. Pulmonary hypertension 6. Anemia suspected to be secondary to chronic blood loss from patient AVM; using 1 unit PRBC on 05/31/2017 since patient was deemed to be symptomatic 7. Hypertension 8. Dyslipidemia 9. Diabetes mellitus type 2 10. Severe Recommendations: 1. I have discussed the results of my overview and impressions with the patient 2. Options for management were reviewed Code Visit Inpatient E&M: 07797 Subs Hosp L3
[2018-04-02 16:40] LABS: Bedside Glucose 247 mg/dL (70-110)
[2018-04-02] MEDS: Atorvastatin Calcium 10 MG Tablet PO (20:59)
[2018-04-02] MEDS: Mag Hydrox/Al Hydrox/Simeth 30 ML UDC PO (21:00)
[2018-04-02 21:51] LABS: Bedside Glucose 349 mg/dL (70-110)
[2018-04-03] VITALS (11 sets, daily range): BP systolic 116–140; BP diastolic 56–116; PULSE 63–85; RESP 12–20; TEMP 36.3–36.6; O2SAT 95–98
[2018-04-03] MEDS: 0.9% NaCl Peripheral Flush Adult/Peds IV (05:48)
[2018-04-03] MEDS: Mag Hydrox/Al Hydrox/Simeth 30 ML UDC PO (05:50)
[2018-04-03] MEDS: Ipratropium/Albuterol Sulfate 3 ML AMPUL.NEB INHALATION ×2 (06:45→11:29)
[2018-04-03 06:56] LABS: Bedside Glucose 231 mg/dL (70-110)
[2018-04-03] MEDS: Insulin Lispro 100 UNIT/ML INSULN.PEN SC ×2 (08:10→11:34)
[2018-04-03] MEDS: Ferrous Sulfate 325 MG Tablet PO ×2 (08:11→11:36)
[2018-04-03] MEDS: Aspirin 81 MG TAB.CHEW PO (08:12)
[2018-04-03] MEDS: Metoprolol Tartrate 50 MG Tablet PO (09:22)
[2018-04-03] MEDS: Heparin Injection (Vial) 5,000 UNIT/ML VIAL 5000 UNIT SC (09:22)
[2018-04-03] MEDS: Torsemide 100 MG Tablet PO (09:22)
[2018-04-03] MEDS: guaiFENesin 600 MG Tablet PO (09:22)
[2018-04-03] MEDS: Escitalopram Oxalate 10 MG Tablet PO (09:23)
[2018-04-03] MEDS: Pantoprazole Sodium 40 MG Tablet PO (09:23)
--- NOTE | 2018-04-03 09:35 | CASEMGMT ---
Per RN CM patient said she has healthcare POA and healthcare LW. She is aware they are not on file at [facility]. Chey AGUIRRE MSW
--- NOTE | 2018-04-03 11:25 | PCM.DC ---
- Discharge Diagnoses Current Active Problems: Current Active and Chronic Problems (Last Updated 01/02/18 @ 17:11 by David Montana MD) Depression (Chronic) Morbid obesity (Chronic) COPD exacerbation (Acute) You will use the following diet at home:: Calorie/Carbohydrate Controlled (specify 1200, 1400, etc) Discharge Activity: Return to Normal Activity Call your doctor if you observe: Shortness of breath, Dizziness, Fainting spells, Chest pain Allergies/Adverse Reactions: Allergies No Known Allergies Allergy (Verified 04/01/18 20:56) Medications to take at Discharge Metformin HCl [Glucophage] 1,000 mg PO BIDCM 01/15/14 Simvastatin [Zocor] 20 mg PO QHS 01/15/14 Escitalopram Oxalate [Lexapro] 10 mg PO DAILY 06/29/15 traZODone [Desyrel] 100 mg PO QHS PRN PRN 06/29/15 Budesonide/Formoterol Fumarate [Symbicort 160-4.5 Mcg Inhaler] 2 puff IH BID 03/27/17 Fluticasone 0.05% [Flonase Nasal [place]] 1 spray NASAL BID PRN 04/24/17 Acetaminophen [Tylenol Tablet] 650 mg PO Q6H PRN PRN tab 06/10/17 ferrous sulfate 325 mg (65 mg iron) tablet 325 mg PO TID tab 09/09/17 metoprolol tartrate 50 mg tablet 50 mg PO BID #180 tab 11/12/17 Albuterol Sulfate [Ventolin Hfa] 1 - 2 puff INHALATION PRN PRN 01/02/18 potassium chloride ER 20 mEq tablet,extended release(part/cryst) 20 meq PO DAILY 90 Days #90 tab 02/17/18 Ipratropium/Albuterol Sulfate [Duoneb] 3 ml INHALATION Q4H PRN 04/01/18 Torsemide [Demadex] 100 mg PO DAILY 04/01/18 Aspirin [Aspirin, Baby] 81 mg PO DAILY@0800 #30 tab.chew 04/03/18 Pantoprazole Sodium [Protonix] 40 mg PO DAILY #30 tablet 04/03/18 Prednisone See Taper PO DAILY #30 tablet 04/03/18 The following prescriptions were given: Aspirin [Aspirin, Baby] 81 mg PO DAILY@0800 #30 tab.chew Pantoprazole Sodium [Protonix] 40 mg PO DAILY #30 tablet Prednisone See Taper PO DAILY #30 tablet Primary Care Physician: Vic Chen MD [Primary Care Provider] - Please follow up with your Primary Care Physician in: 1 Week Test Results: Test results from this visit will be discussed in further detail at your follow-up appointment, if applicable. Please Follow Up With: Angeline Acosta NP-C When: 04/10/18 Please Follow Up With: Fabiola Rodrigez PA When: As scheduled, 05/14/2018 Proposed Discharge Date: 04/03/18
[2018-04-03 11:40] LABS: Bedside Glucose 312 mg/dL (70-110)
--- NOTE | 2018-04-03 12:49 | DS.PCM_ITS ---
<Alejandra Mendoza - Last Filed: 04/03/18 12:58> Discharge Date and Diagnosis Date of Admission: 04/01/18 Date of Discharge: 04/03/18 - Primary Discharge Diagnosis Active and Suspected Problems (Last Updated 01/02/18 @ 17:11 by David Montana MD) 1. Acute on chronic COPD exacerbation with chronic combined hypoxic and hypercapnic respiratory failure 2. Chronic diastolic CHF 3. Severe aortic stenosis 4. Chronic kidney disease stage III 5. Hypertension 6. Hyperlipidemia 7. History of CVA 8. Iron deficiency anemia 9. Type 2 diabetes mellitus 10. Morbid obesity 11. Anxiety/depression - Secondary Discharge Diagnosis Chronic Problems (Last Updated 01/02/18 @ 17:11 by David Montana MD) Depression (Chronic) Morbid obesity (Chronic) Aortic valve stenosis (Chronic) Pulmonary hypertension (Chronic) CKD stage 3 secondary to diabetes (Chronic) Chronic diastolic (congestive) heart failure (Chronic) Cerebral infarction, unspecified (Chronic) Palpitations (Chronic) Anxiety (Chronic) Left atrial enlargement (Chronic) Hypersomnia (Chronic) Anemia (Chronic) Carotid artery stenosis (Chronic) Chronic hypoxemic respiratory failure (Chronic) Pulmonary fibrosis (Chronic) 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 3 severe COPD by GOLD classification (Chronic) Aortic stenosis (Chronic) Moderate to severe with valve area 1.1 on cardiac catheterization in 2013 Diabetes mellitus type II (Chronic) Pulmonary hypertension (Chronic) With PA pressures 55 by cardiac catheterization Hypertension (Chronic) HLD (hyperlipidemia) (Chronic) 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 No demonstrated acute cardiopulmonary process. Electronically Signed: Dipti Aguirre MD at 22:04 EST Tel , Service support , Operations: None Procedures: None Summary of Care Provided: The patient is a 67 year old F admitted 04/01/2018 due to dyspnea. 1. Acute on chronic COPD exacerbation with chronic combined hypoxic and hypercapnic respiratory failure complicated by pulmonary fibrosis-chronically on 6 L nasal cannula continuously. IV steroids during admission. Prednisone taper at discharge. Continue home inhaler regimen. Chest x-ray without acute process. Respiratory panel negative. Follow-up with primary care physician in 1 week. Follow-up with pulmonary medicine as scheduled. Recommend NIV at home, this can be arranged by PCP/pulmonary medicine. 2. Chronic diastolic CHF-no acute exacerbation. Continue outpatient follow-up with Dr. Xavier. 3. Severe aortic stenosis-patient has been evaluated for valve replacement, told she is not a candidate. 4. Chronic kidney disease stage III-stable. 5. Hypertension-stable, continue home metoprolol regimen. 6. Hyperlipidemia-continue statin. 7. History of CVA-continue aspirin, statin. 8. Iron deficiency anemia-continue iron supplementation. 9. Type 2 diabetes mellitus-continue home regimen. 10. Morbid obesity-encouraged diet lifestyle modifications. 11. Anxiety/depression-continue home SSRI, trazodone regimen. 12. History of GI bleed secondary to AVM/chronic anemia General: Alert, Oriented x3, Cooperative HEENT: Atraumatic, PERRLA, EOMI, Normocephalic Neck: Supple, No JVD, Negative Carotid Bruits Lungs: Diminished, clear to auscultation Cardiovascular: Regular rate, regular rhythm, murmur Abdomen: Bowel Sounds Present, Soft, Non Tender, obese Extremities: No edema, Capillary Refill Less than 3 Seconds Skin: No rashes, No breakdown Musculoskeletal: No Tenderness to Palpation of Joints or Extremities Neurological: Cranial nerves II-XII grossly intact Psych/Mental Status: Normal Affect, Appropriate Patient seen and examined prior to discharge. Physical assessment as noted above. Patient is stable for discharge with follow up recommendations as noted above. This patient was seen by SHOLA Garcia under the supervision of Dr. Lazo. - Physical Exam Vital Signs Temp Pulse Resp BP Pulse Ox 98 F 77 16 131/74 H 96 04/03/18 08:17 04/03/18 11:30 04/03/18 11:30 04/03/18 09:22 04/03/18 08:17 Oxygen Flow Rate (L/min) 6 Oxygen Delivery Method Nasal Cannula Weight: 249 lb 12.54 oz Body Mass Index (BMI) 44.2 Intake and Output for Last 24 Hours 04/01/18 04/02/18 04/03/18 23:59 23:59 23:59 Intake Total 1575 / 1575 390 / 390 Output Total 1700 / 1700 Balance -125 / -125 390 / 390 Microbiology Past 72 Hours 04/02/18 00:15 Respiratory Panel (PCR) - Final Mucosa - Nasopharyngeal POC Glucose 04/03/18 04/03/18 04/02/18 11:32 06:48 20:56 POC Glucose 312 H 231 H 349 H 04/02/18 16:19 POC Glucose 247 H Discharge Diet: Low fat/ Low Cholesterol, 1800 Calorie Control Diet, Carb Control Diet Discharge Activity: Return to Normal Activity Call your doctor if you observe: Shortness of breath, Dizziness, Fainting spells, Chest pain Home Medications: Medications to take at Discharge Metformin HCl [Glucophage] 1,000 mg PO BIDCM 01/15/14 Simvastatin [Zocor] 20 mg PO QHS 01/15/14 Escitalopram Oxalate [Lexapro] 10 mg PO DAILY 06/29/15 traZODone [Desyrel] 100 mg PO QHS PRN PRN 06/29/15 Budesonide/Formoterol Fumarate [Symbicort 160-4.5 Mcg Inhaler] 2 puff IH BID 03/27/17 Fluticasone 0.05% [Flonase Nasal [place]] 1 spray NASAL BID PRN 04/24/17 Acetaminophen [Tylenol Tablet] 650 mg PO Q6H PRN PRN tab 06/10/17 ferrous sulfate 325 mg (65 mg iron) tablet 325 mg PO TID tab 09/09/17 metoprolol tartrate 50 mg tablet 50 mg PO BID #180 tab 11/12/17 Albuterol Sulfate [Ventolin Hfa] 1 - 2 puff INHALATION PRN PRN 01/02/18 potassium chloride ER 20 mEq tablet,extended release(part/cryst) 20 meq PO DAILY 90 Days #90 tab 02/17/18 Ipratropium/Albuterol Sulfate [Duoneb] 3 ml INHALATION Q4H PRN 04/01/18 Torsemide [Demadex] 100 mg PO DAILY 04/01/18 Aspirin [Aspirin, Baby] 81 mg PO DAILY@0800 #30 tab.chew 04/03/18 Pantoprazole Sodium [Protonix] 40 mg PO DAILY #30 tablet 04/03/18 Prednisone See Taper PO DAILY #30 tablet 04/03/18 Following Prescrptions Were Given to Patient: Aspirin [Aspirin, Baby] 81 mg PO DAILY@0800 #30 tab.chew Pantoprazole Sodium [Protonix] 40 mg PO DAILY #30 tablet Prednisone See Taper PO DAILY #30 tablet Primary Care Physician: Vic Chen MD [Primary Care Provider] - Please follow up with your Primary Care Physician in: 1 Week Please Follow Up With: Angeline Acosta NP-C When: 04/10/18 Please Follow Up With: Fabiola Rodrigez PA When: As scheduled, 05/14/2018 Disposition: Home Minutes spent on discharge:: 35 Patient Condition:: Stable Medical Necessity - Tobacco Use Smoking Status: Former smoker Tobacco Use: Non-smoker Meaningful Use Info Meaningful Use Diagnoses (Choose all that apply): None applicable <Dandy Lazo - Last Filed: 04/03/18 13:11> Discharge Date and Diagnosis - Secondary Discharge Diagnosis Chronic Problems (Last Updated 01/02/18 @ 17:11 by David Montana MD) Depression (Chronic) Morbid obesity (Chronic) Aortic valve stenosis (Chronic) Pulmonary hypertension (Chronic) CKD stage 3 secondary to diabetes (Chronic) Chronic diastolic (congestive) heart failure (Chronic) Cerebral infarction, unspecified (Chronic) Palpitations (Chronic) Anxiety (Chronic) Left atrial enlargement (Chronic) Hypersomnia (Chronic) Anemia (Chronic) Carotid artery stenosis (Chronic) Chronic hypoxemic respiratory failure (Chronic) Pulmonary fibrosis (Chronic) 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 3 severe COPD by GOLD classification (Chronic) Aortic stenosis (Chronic) Moderate to severe with valve area 1.1 on cardiac catheterization in 2013 Diabetes mellitus type II (Chronic) Pulmonary hypertension (Chronic) With PA pressures 55 by cardiac catheterization Hypertension (Chronic) HLD (hyperlipidemia) (Chronic) 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 I have independently interviewed and examined the patient and reviewed pertinent historical, laboratory, and other data. Please refer to SHOLA Garcia note for details of this patient's presentation, findings, and recommendations. I have reviewed Liliane Garciaote and concur with documented findings. In brief, patient is a 67-year-old female with past medical history significant for severe aortic stenosis, chronic hypoxic respiratory failure secondary to COPD, pulmonary hypertension as well as pulmonary fibrosis who presented with shortness of breath and assessment of acute on chronic hypoxic and hypercapnic respiratory failure was made patient admitted to a monitored bed Physical Examination: GENERAL: Dyspneic at rest HEENT: Clear conjunctiva, moist oral mucosa CHEST: Diminished to auscultation HEART: Regular S1 S2, systolic murmur CONTROL CLERK HEAD: Awake, no lateralizing signs. Assessment: 1. Acute on chronic hypoxic and hypercapnic respiratory failure 2. Chronic diastolic CHF 3. Severe COPD 4. Pulmonary fibrosis 5. Pulmonary hypertension 6. Anemia 7. Hypertension 8. Dyslipidemia 9. Diabetes mellitus type 2 10. Severe Hospital course: As elicited above - Physical Exam Vital Signs Temp Pulse Resp BP Pulse Ox 98 F 77 16 131/74 H 96 04/03/18 08:17 04/03/18 11:30 04/03/18 11:30 04/03/18 09:22 04/03/18 08:17 Oxygen Flow Rate (L/min) 6 Oxygen Delivery Method Nasal Cannula Weight: 113.3 kg Body Mass Index (BMI) 44.2 Intake and Output for Last 24 Hours 04/01/18 04/02/18 04/03/18 23:59 23:59 23:59 Intake Total 1575 / 1575 390 / 390 Output Total 1700 / 1700 Balance -125 / -125 390 / 390 Microbiology Past 72 Hours 04/02/18 00:15 Respiratory Panel (PCR) - Final Mucosa - Nasopharyngeal POC Glucose 04/03/18 04/03/18 04/02/18 11:32 06:48 20:56 POC Glucose 312 H 231 H 349 H 04/02/18 16:19 POC Glucose 247 H Code Visit Inpatient E&M: 92219 Disch Hosp
--- NOTE | 2018-04-04 11:47 | CASEMGMT ---
YASMINE DC Phone Call DC Date: 04/03/18 DC Disposition: Home LACE/STRATA:01/18 DC Appointments: F/U made with Dr. Dixno Message left with home phone. Call back information given if pt has questions re: f/u, prescriptions or instructions. Casie CATN RN ACM
== END 2018-04-03 14:45 | disposition home or self-care (01) | DRG 189 ==
LOC: ED 21:26 → PCU 23:35
PROVIDERS: Admitting Provider Family Medicine; Emergency Provider Emergency Medicine; Family Provider Family Medicine; PCP Family Medicine; Visit Provider Internal Medicine
DX: J96.22 Acute and chronic respiratory failure with hypercapnia (principal); J44.1 Chronic obstructive pulmonary disease with (acute) exacerbation; Z68.41 Body mass index [BMI] 40.0-44.9, adult; I13.0 Hypertensive heart and chronic kidney disease with heart failure and stage 1 through stage 4 chronic kidney disease, or unspecified chronic kidney disease; I50.32 Chronic diastolic (congestive) heart failure; J96.21 Acute and chronic respiratory failure with hypoxia; J84.10 Pulmonary fibrosis, unspecified; Z99.81 Dependence on supplemental oxygen; E78.5 Hyperlipidemia, unspecified; E66.01 Morbid (severe) obesity due to excess calories; D50.9 Iron deficiency anemia, unspecified; E11.22 Type 2 diabetes mellitus with diabetic chronic kidney disease; N18.3 Chronic kidney disease, stage 3 (moderate); I35.0 Nonrheumatic aortic (valve) stenosis; F41.9 Anxiety disorder, unspecified; F32.9 Major depressive disorder, single episode, unspecified; I27.20 Pulmonary hypertension, unspecified; Z87.891 Personal history of nicotine dependence; Z86.73 Personal history of transient ischemic attack (TIA), and cerebral infarction without residual deficits; Z79.84 Long term (current) use of oral hypoglycemic drugs; Z79.899 Other long term (current) drug therapy
CPT/HCPCS: 36415; 36600; 71046; 80048; 82803; 82962; 83735; 83880; 84484; 85025; 87633; 93005; 94002; 94003; 94640; 97802; 99285; J7040; A4216

== ENCOUNTER → 2018-04-23 14:55 | Outpatient (CLI) | payer SELFPAY ==
[2018-04-10 13:23] VITALS: BMI 44.2
[2018-04-23 17:54] LABS: Albumin, Serum 3.5 g/dL (3.2-5.0); BUN 34 mg/dL (7-18); Calcium,Total 8.5 mg/dL (8.5-10.1); Chloride 92 mmol/L (98-107); EST Glomerular Filtration Rate 32 mL/min (>60); Est Glom Filt Rate - Afr Amer 38 mL/min (>60); Glucose 198 mg/dL (74-106); Phosphorus 3.3 mg/dL (2.5-4.9); Potassium 3.6 mmol/L (3.5-5.1); Sodium Level 138 mmol/L (136-145)
== END ==
PROVIDERS: Family Provider Family Medicine; PCP Family Medicine; Referring Provider Internal Medicine Nephrology; Visit Provider Internal Medicine Nephrology
DX: N17.9 Acute kidney failure, unspecified (principal)
CPT/HCPCS: 36415; 80069

== ENCOUNTER 2018-06-20 19:51 | Inpatient (IN) | payer MEDICARE, OTHER, SELFPAY ==
[2018-06-03 14:08] VITALS: BMI 46.0
[2018-06-20] VITALS (10 sets, daily range): BP systolic 115–172; BP diastolic 54–109; PULSE 100–114; RESP 12–20; TEMP 35.7–36.6; O2SAT 82–99; BMI 53.4; BMI 46.3; BMI 46.4
--- NOTE | 2018-06-20 20:03 | EKG12_ITS ---
Test Reason : Blood Pressure : / mmHG Vent. Rate : 102 BPM Atrial Rate : 102 BPM P-R Int : 140 ms QRS Dur : 144 ms QT Int : 408 ms P-R-T Axes : 067 102 029 degrees QTc Int : 531 ms Sinus tachycardia Right bundle branch block Abnormal ECG Confirmed by ANJANA GAMBOA, CHOLO ([id number]), editorial intern PENG GLEZ ([id number]) on 06/23/2018 10:54:58 AM Referred By: Confirmed By:CHOLO YEUNG MD
--- NOTE | 2018-06-20 20:03 | RAD_ITS ---
STUDY: X-RAY CHEST REASON FOR EXAM: Female, 68 years old. Respiratory distress. Hypoxia. TECHNIQUE: Single AP portable view of the chest. COMPARISON: April 01, 2018. FINDINGS: Study is limited due to the patient's head overlying the lung apices. There is a decreased inspiratory effort without new mass or infiltrate. There is no demonstrated pleural abnormality. There is borderline cardiomegaly. Again seen is prominent bilateral deepthi. Mediastinum is otherwise unremarkable. Normal visualized aortic arch and descending thoracic aorta. The thoracic spine is obscured by the mediastinum. There is degenerative osteoarthritis of the bilateral shoulders. There is no demonstrated abnormality of the visualized soft tissue structures of the upper abdomen. RAD/Chest 1 View (Portable) IMPRESSION: Limited study due to a decreased inspiration and kyphosis. There is no major interval change. Electronically Signed: Tomas Isbell DO at 20:27 EDT Tel [phone], Service support ,
[2018-06-20 20:06] LABS: Bedside Glucose 262 mg/dL (70-110)
--- NOTE | 2018-06-20 20:10 | ED.VIS.GEN ---
History of Present Illness Chief Complaint: Shortness of Breath Detail of Chief Complaint: Increased shortness of breath history of COPD on O2 Informant: Significant Other Limited by: Stupor Onset: - - Uncertain Context: - - Unknown Timing: Continuous Quality: Hypoxia with decreased level of consciousness Location: Not applicable Current Severity: Severe Maximum Severity: Severe Worsened by: Unknown Relieved by: Apparently nothing Associated Symptoms: Unobtainable Narrative: Patient is an elderly woman who is an O2 dependent COPD patient who according to significant other continues to smoke. Nurses commented she was tripoding. She is sitting up with her head hanging anteriorly and minimally responsive to tactile or verbal stimulus. She does respond ouch to painful stimuli. No other history is obtainable. Prior similar symptoms: Yes Recent Illness/Hospitalization: No - Past Medical History (1) COPD exacerbation Status: Acute (2) Diastolic CHF, acute on chronic Status: Acute (3) Anemia Status: Chronic (4) CKD stage 3 secondary to diabetes Status: Chronic (5) Carotid artery stenosis Status: Chronic (6) Cerebral infarction, unspecified Status: Chronic (7) Chronic hypoxemic respiratory failure Status: Chronic (8) Depression Status: Chronic (9) Diabetes mellitus type II Status: Chronic (10) GI AVM (gastrointestinal arteriovenous vascular malformation) Status: Chronic (11) HLD (hyperlipidemia) Status: Chronic (12) Hypersomnia Status: Chronic (13) Hypertension Status: Chronic (14) Morbid obesity Status: Chronic (15) Stage 3 severe COPD by GOLD classification Status: Chronic Past Medical History - Allergies and Home Meds Allergies/Adverse Reactions: Allergies No Known Allergies Allergy (Verified 06/20/18 20:05) Primary Care Physician: Vic Chen MD [Primary Care Provider] - Prior records reviewed: Yes Surgical History: herniorrhaphy, hysterectomy Lives: Spouse/ Significant Other Smoking Status: Current every day smoker - Family History Paternal Family History: Family History (Last Reviewed 06/03/18 @ 14:21 by Candy Lyon) Mother Heart disease Father CAD (coronary artery disease) Hypertension Brother Hypertension Family History: Reports: Heart Disease Maternal Family History: Family History (Last Reviewed 06/03/18 @ 14:21 by Candy Lyon) Mother Heart disease Father CAD (coronary artery disease) Hypertension Brother Hypertension Family History: Reports: Heart Disease Review of Systems ROS: Unable to Obtain - Patient is somnolent and requires repeated stimulus. Speech is garbled secondary to altered mental status. Physical Exam Vital Signs/Narrative: Vital Signs Temp Pulse Resp BP Pulse Ox 06/20/18 19:55 97.8 F 114 H 20 H 172/109 H 99 Inital Vital Signs reviewed: Yes General: Well nourished, Well developed, Obese, Unkempt, Acute Distress Head: Normocephalic, Atraumatic Eyes: Perrl, EOMI. Negative for: Pale conjunctiva, Scleral icterus ENT: No rhinorrhea, TM's clear Neck: Supple, Nontender, No lymphadenopathy, No JVD, - Cardiovascular: Regular rate, Regular rhythm, No murmurs, Normal S1, Normal S2 Respiratory: Rales, Wheezing, Diminished, Decreased Air Movement, - - Auditory phase is significantly prolonged. Abdomen: Soft, Nontender, Nondistended, No masses Back: Normal Inspection Extremities: Nontender Skin: Normal color, No rash. Negative for: Cyanosis, Jaundice Neurological: Normal Strength, Normal Sensation, Normal DTR. Negative for: Alert, Oriented x3 Psychological: - - Unable to determine Diagnostic/Tx/Re-eval Chest X-Ray - ED: 1 View, Read by ED Physician, Unchanged, Normal, Heart, No Acute Disease, - - LIMITED STUDY SECONDARY TO POOR INSPIRATORY VOLUME Impressions Chest X-Ray 06/20/18 20:03 IMPRESSION: Limited study due to a decreased inspiration and kyphosis. There is no major interval change. Electronically Signed: Tomas Isbell DO at 20:27 EDT Tel [phone], Service support , 06/20/18 20:03 Chest 1 View (Portable) [RAD] Stat Laboratory Results 06/20/18 06/20/18 06/20/18 19:57 20:15 20:15 WBC 20.0 H RBC 4.02 L Hgb 10.3 L Hct 37.5 MCV 93.3 MCH 25.6 L MCHC 27.5 L RDW 16.3 H RDW Differential 55.9 H Plt Count 476 H MPV 9.6 Immature Gran % (Auto) 1.400 H Neut % (Auto) 87.8 H Lymph % (Auto) 5.9 L [place] % (Auto) 4.3 Eos % (Auto) 0.5 Baso % (Auto) 0.1 Absolute Neuts (auto) 17.6 H Absolute Lymphs (auto) 1.18 Total Counted Not Reportable Specimen Type Sample Site pH Bicarbonate Actual POC Total CO2 Base Excess O2 Saturation ABG pCO2 ABG pO2 Luis Fernando Test O2 Delivery Device Liter Flow Blood Gas Notified Whom Sodium 137 Potassium 4.2 Chloride 94 L Carbon Dioxide 41.0 H Anion Gap 2 L BUN 41 H Creatinine 1.06 H Estim Creat Clear Calc 35.47 Est GFR (MDRD) Af Amer 66 Est GFR (MDRD) Non-Af 55 L BUN/Creatinine Ratio 38.7 H Glucose 247 H Lactic Acid Calcium 8.3 L Troponin I 0.173 H POC Glucose 262 H 06/20/18 06/20/18 20:15 20:16 WBC RBC Hgb Hct MCV MCH MCHC RDW RDW Differential Plt Count MPV Immature Gran % (Auto) Neut % (Auto) Lymph % (Auto) [place] % (Auto) Eos % (Auto) Baso % (Auto) Absolute Neuts (auto) Absolute Lymphs (auto) Total Counted Specimen Type ART Sample Site L Radial pH 7.33 L Bicarbonate Actual 43.7 H POC Total CO2 46 Base Excess 18 H O2 Saturation 99 ABG pCO2 83.2 H* ABG pO2 188 H Luis Fernando Test POS O2 Delivery Device NRB Mask Liter Flow 15.0 Blood Gas Notified Whom ED MD Sodium Potassium Chloride Carbon Dioxide Anion Gap BUN Creatinine Estim Creat Clear Calc Est GFR (MDRD) Af Amer Est GFR (MDRD) Non-Af BUN/Creatinine Ratio Glucose Lactic Acid 1.5 Calcium Troponin I POC Glucose - Medical Decision Making An ABG was obtained because of concern for CO2 retention. We will need to determine CODE STATUS. Concern patient has CO2 narcosis. Chest x-ray was obtained to evaluate for pneumonia versus bronchitis versus COPD exacerbation. She was treated with DuoNeb and albuterol. She also received 125 mg of Solu-Medrol. EKG was obtained to evaluate for cardiac ischemia. Troponin was obtained as well. Patient was placed on BiPAP. She is more alert. Blood gas reveals acute on chronic CO2 retention with hypoxia. White count is elevated. There is no obvious source of infection. Will obtain blood cultures. 750 MG OF LEVOFLOXIN WAS ORDERED Will page hospitalist for admission to PCU stepdown versus ICU - Critical Care Time Critical care time (excluding procedures): 30-74 minutes, Discussing w/Patient &/or Family/Banking Supervisor, Discussing w/Consultants, Arranging Admission or Transfer, Performing Direct Patient Care at Bedside ED Disposition - Plan for ED Patient: Disposition: Acute Care Hospital [facility] Diagnosis: Acute respiratory failure with hypoxia and hypercapnia, COPD with acute exacerbation, Elevated troponin I level, Hyperglycemia due to type 2 diabetes mellitus Referrals: Vic Chen MD [Primary Care Provider] -
--- NOTE | 2018-06-20 20:15 | ED.DCSUM_ITS ---
History of Present Illness Chief Complaint: Shortness of Breath Detail of Chief Complaint: Increased shortness of breath history of COPD on O2 Informant: Significant Other Limited by: Stupor Onset: - - Uncertain Context: - - Unknown Timing: Continuous Quality: Hypoxia with decreased level of consciousness Location: Not applicable Current Severity: Severe Maximum Severity: Severe Worsened by: Unknown Relieved by: Apparently nothing Associated Symptoms: Unobtainable Narrative: Patient is an elderly woman who is an O2 dependent COPD patient who according to significant other continues to smoke. Nurses commented she was tripoding. She is sitting up with her head hanging anteriorly and minimally responsive to tactile or verbal stimulus. She does respond ouch to painful stimuli. No other history is obtainable. Prior similar symptoms: Yes Recent Illness/Hospitalization: No - Past Medical History (1) COPD exacerbation Status: Acute (2) Diastolic CHF, acute on chronic Status: Acute (3) Anemia Status: Chronic (4) CKD stage 3 secondary to diabetes Status: Chronic (5) Carotid artery stenosis Status: Chronic (6) Cerebral infarction, unspecified Status: Chronic (7) Chronic hypoxemic respiratory failure Status: Chronic (8) Depression Status: Chronic (9) Diabetes mellitus type II Status: Chronic (10) GI AVM (gastrointestinal arteriovenous vascular malformation) Status: Chronic (11) HLD (hyperlipidemia) Status: Chronic (12) Hypersomnia Status: Chronic (13) Hypertension Status: Chronic (14) Morbid obesity Status: Chronic (15) Stage 3 severe COPD by GOLD classification Status: Chronic Past Medical History - Allergies and Home Meds Allergies/Adverse Reactions: Allergies No Known Allergies Allergy (Verified 06/20/18 20:05) Primary Care Physician: Vic Chen MD [Primary Care Provider] - Prior records reviewed: Yes Surgical History: herniorrhaphy, hysterectomy Lives: Spouse/ Significant Other Smoking Status: Current every day smoker - Family History Paternal Family History: Family History (Last Reviewed 06/03/18 @ 14:21 by Candy Lyon) Mother Heart disease Father CAD (coronary artery disease) Hypertension Brother Hypertension Family History: Reports: Heart Disease Maternal Family History: Family History (Last Reviewed 06/03/18 @ 14:21 by Candy Lyon) Mother Heart disease Father CAD (coronary artery disease) Hypertension Brother Hypertension Family History: Reports: Heart Disease Review of Systems ROS: Unable to Obtain - Patient is somnolent and requires repeated stimulus. Speech is garbled secondary to altered mental status. Physical Exam Vital Signs/Narrative: Vital Signs Temp Pulse Resp BP Pulse Ox 06/20/18 19:55 97.8 F 114 H 20 H 172/109 H 99 Inital Vital Signs reviewed: Yes General: Well nourished, Well developed, Obese, Unkempt, Acute Distress Head: Normocephalic, Atraumatic Eyes: Perrl, EOMI. Negative for: Pale conjunctiva, Scleral icterus ENT: No rhinorrhea, TM's clear Neck: Supple, Nontender, No lymphadenopathy, No JVD, - Cardiovascular: Regular rate, Regular rhythm, No murmurs, Normal S1, Normal S2 Respiratory: Rales, Wheezing, Diminished, Decreased Air Movement, - - Auditory phase is significantly prolonged. Abdomen: Soft, Nontender, Nondistended, No masses Back: Normal Inspection Extremities: Nontender Skin: Normal color, No rash. Negative for: Cyanosis, Jaundice Neurological: Normal Strength, Normal Sensation, Normal DTR. Negative for: Alert, Oriented x3 Psychological: - - Unable to determine Diagnostic/Tx/Re-eval Chest X-Ray - ED: 1 View, Read by ED Physician, Unchanged, Normal, Heart, No Acute Disease, - - LIMITED STUDY SECONDARY TO POOR INSPIRATORY VOLUME Impressions Chest X-Ray 06/20/18 20:03 IMPRESSION: Limited study due to a decreased inspiration and kyphosis. There is no major interval change. Electronically Signed: Tomas Isbell DO at 20:27 EDT Tel [phone], Service support , 06/20/18 20:03 Chest 1 View (Portable) [RAD] Stat Laboratory Results 06/20/18 06/20/18 06/20/18 19:57 20:15 20:15 WBC 20.0 H RBC 4.02 L Hgb 10.3 L Hct 37.5 MCV 93.3 MCH 25.6 L MCHC 27.5 L RDW 16.3 H RDW Differential 55.9 H Plt Count 476 H MPV 9.6 Immature Gran % (Auto) 1.400 H Neut % (Auto) 87.8 H Lymph % (Auto) 5.9 L [place] % (Auto) 4.3 Eos % (Auto) 0.5 Baso % (Auto) 0.1 Absolute Neuts (auto) 17.6 H Absolute Lymphs (auto) 1.18 Total Counted Not Reportable Specimen Type Sample Site pH Bicarbonate Actual POC Total CO2 Base Excess O2 Saturation ABG pCO2 ABG pO2 Luis Fernando Test O2 Delivery Device Liter Flow Blood Gas Notified Whom Sodium 137 Potassium 4.2 Chloride 94 L Carbon Dioxide 41.0 H Anion Gap 2 L BUN 41 H Creatinine 1.06 H Estim Creat Clear Calc 35.47 Est GFR (MDRD) Af Amer 66 Est GFR (MDRD) Non-Af 55 L BUN/Creatinine Ratio 38.7 H Glucose 247 H Lactic Acid Calcium 8.3 L Troponin I 0.173 H POC Glucose 262 H 06/20/18 06/20/18 20:15 20:16 WBC RBC Hgb Hct MCV MCH MCHC RDW RDW Differential Plt Count MPV Immature Gran % (Auto) Neut % (Auto) Lymph % (Auto) [place] % (Auto) Eos % (Auto) Baso % (Auto) Absolute Neuts (auto) Absolute Lymphs (auto) Total Counted Specimen Type ART Sample Site L Radial pH 7.33 L Bicarbonate Actual 43.7 H POC Total CO2 46 Base Excess 18 H O2 Saturation 99 ABG pCO2 83.2 H* ABG pO2 188 H Luis Fernando Test POS O2 Delivery Device NRB Mask Liter Flow 15.0 Blood Gas Notified Whom ED MD Sodium Potassium Chloride Carbon Dioxide Anion Gap BUN Creatinine Estim Creat Clear Calc Est GFR (MDRD) Af Amer Est GFR (MDRD) Non-Af BUN/Creatinine Ratio Glucose Lactic Acid 1.5 Calcium Troponin I POC Glucose - Medical Decision Making An ABG was obtained because of concern for CO2 retention. We will need to determine CODE STATUS. Concern patient has CO2 narcosis. Chest x-ray was obtained to evaluate for pneumonia versus bronchitis versus COPD exacerbation. She was treated with DuoNeb and albuterol. She also received 125 mg of Solu- Medrol. EKG was obtained to evaluate for cardiac ischemia. Troponin was obtained as well. Patient was placed on BiPAP. She is more alert. Blood gas reveals acute on chronic CO2 retention with hypoxia. White count is elevated. There is no obvious source of infection. Will obtain blood cultures. 750 MG OF LEVOFLOXIN WAS ORDERED Will page hospitalist for admission to PCU stepdown versus ICU - Critical Care Time Critical care time (excluding procedures): 30-74 minutes, Discussing w/Patient &/or Family/Quality Rep, Discussing w/Consultants, Arranging Admission or Transfer, Performing Direct Patient Care at Bedside ED Disposition - Plan for ED Patient: Disposition: Acute Care Hospital [facility] Diagnosis: Acute respiratory failure with hypoxia and hypercapnia, COPD with acute exacerbation, Elevated troponin I level, Hyperglycemia due to type 2 diabetes mellitus Referrals: Vic Chen MD [Primary Care Provider] -
--- NOTE | 2018-06-20 20:19 | CPS ---
critical results read back to Dr. Robertson
[2018-06-20 20:26] LABS: Allen Test POS; Base Excess 18 mmol/L (-2 to +2); Bicarbonate 43.7 mmol/L (22-26); Blood Gas Specimen Type ART; O2 Delivery Device NRB Mask; PO2 188 mmHG (75-100); SITE L Radial; SO2 99 % (95-99); Total Carbon Dioxide 46 mmol/L; pCO2 83.2 mmHg (35-45); pH 7.33 (7.35-7.45)
[2018-06-20 20:44] LABS: Absolute Lymphocyte Count 1.18 X10^3/ul (0.83-4.51); Absolute Neutrophil Count 17.6 X10^3/uL (2.0-7.7); Basophil# 0.02 X10^3/uL; Basophil% 0.1 % (0-1); Eosinophils% 0.5 % (0-5); Hematocrit 37.5 % (37-47); Hemoglobin 10.3 g/dl (12.0-15.0); Lymphocyte # 1.18 X10^3/ul (4.0); Lymphocyte % 5.9 % (19-41); Mean Corp Hgb Conc 27.5 g/gl (32-36); Mean Corpuscular Hgb 25.6 pg (27.0-32.0); Mean Corpuscular Volume 93.3 fL (81-99); Mean Platelet Vol. 9.6 fl (6.2-12.0); Monocyte# 0.87 X10^3/uL; Monocyte% 4.3 % (0-10); Neutrophil # 17.57 X10^3/uL (2.7-7.7); Neutrophil % 87.8 % (47-70); POSITIVE COUNT NO; POSITIVE DIFFERENTIAL NO; POSITIVE MORPHOLOGY NO; Platelet Count 476 K/mm3 (150-450); RBC Distribution Width CV 16.3 % (11.6-14.6); RBC Distribution Width SD 55.9 fl (35.1-43.9); Red Blood Count 4.02 M/mm3 (4.2-5.4)
[2018-06-20] MEDS: MethylPREDNISolone 125 MG/2 ML Vial IV (20:50)
[2018-06-20 20:56] LABS: Lactic Acid 1.5 mmol/L (0.4-2.0)
[2018-06-20 20:57] LABS: Anion Gap 2 (5-15); BUN 41 mg/dL (7-18); BUN/Creat Ratio 38.7 RATIO (10-20); Calcium,Total 8.3 mg/dL (8.5-10.1); Chloride 94 mmol/L (98-107); Creatinine, Serum 1.06 mg/dL (0.55-1.02); EST Glomerular Filtration Rate 55 mL/min (>60); Est Glom Filt Rate - Afr Amer 66 mL/min (>60); Estimated Creatinine Clearance 35.47 ml/min; Glucose 247 mg/dL (74-106); Potassium 4.2 mmol/L (3.5-5.1); Sodium Level 137 mmol/L (136-145)
--- NOTE | 2018-06-20 21:18 | PCM.HP.STD ---
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 Associated with her symptoms is lightheadedness and confusion. Initially patient was placed on 16 L nonrebreather mask. Her ABG showed pH of 7.33; PCO2 of 83.2 and a PO2 of 188. Patient was placed on BiPAP. Also patient was found to have a white count of 20 with predominantly neutrophils patient was started on levofloxacin and blood cultures were obtained. Emergency department doctor reported that initially patient was somnolent but she became more arousable at the emergency department. Of note patient reports that she is a patient of hospice. She reports that hospice gives her dexamethasone and morphine. However patient reported that she wants CPR if needed. Past Medical History Past Medical History (Chronic Problems): Chronic Problems (Last Reviewed 06/21/18 @ 04:30 by Edson Mooney MD) COPD with acute exacerbation (Chronic) Respiratory failure (Chronic) Depression (Chronic) Morbid obesity (Chronic) Aortic valve stenosis (Chronic) Pulmonary hypertension (Chronic) CKD stage 3 secondary to diabetes (Chronic) Chronic diastolic (congestive) heart failure (Chronic) Cerebral infarction, unspecified (Chronic) Palpitations (Chronic) Anxiety (Chronic) Left atrial enlargement (Chronic) Hypersomnia (Chronic) Anemia (Chronic) Carotid artery stenosis (Chronic) Chronic hypoxemic respiratory failure (Chronic) Pulmonary fibrosis (Chronic) 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 3 severe COPD by GOLD classification (Chronic) Aortic stenosis (Chronic) Moderate to severe with valve area 1.1 on cardiac catheterization in 2013 Diabetes mellitus type II (Chronic) Pulmonary hypertension (Chronic) With PA pressures 55 by cardiac catheterization Hypertension (Chronic) HLD (hyperlipidemia) (Chronic) 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7 Hypersomnia (Chronic) G47.10 Anemia (Chronic) D64.9 Carotid artery stenosis (Chronic) I65.29 Chronic hypoxemic respiratory failure (Chronic) J96.11 Pulmonary fibrosis (Chronic) J84.10 Tobacco dependence in remission (Chronic) F17.201 Stage 3 severe COPD by GOLD classification (Chronic) J44.9 Aortic stenosis (Chronic) Moderate to severe with valve area 1.1 on cardiac catheterization in 2013 Diabetes mellitus type II (Chronic) Pulmonary hypertension (Chronic) With PA pressures 55 by cardiac catheterization Hypertension (Chronic) I10 HLD (hyperlipidemia) (Chronic) E78.5 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 Blackmon in 2011, suspected AV malformations Acute on chronic anemia (Inactive) Allergies No Known Allergies Allergy (Verified 06/20/18 20:05) Home Medications: Ambulatory Orders Medication Instructions Recorded Metformin HCl [Glucophage] 1,000 mg PO BIDCM 01/15/14 Simvastatin [Zocor] 20 mg PO QHS 01/15/14 Escitalopram Oxalate [Lexapro] 10 mg PO DAILY 06/29/15 traZODone [Desyrel] 100 mg PO QHS PRN PRN 06/29/15 Budesonide/Formoterol Fumarate 2 puff IH BID 03/27/17 [Symbicort 160-4.5 Mcg Inhaler] Fluticasone 0.05% [Flonase Nasal 1 spray NASAL BID PRN 04/24/17 [place]] Acetaminophen [Tylenol Tablet] 650 mg PO Q6H PRN PRN tab 06/10/17 ferrous sulfate 325 mg (65 mg 325 mg PO TID tab 09/09/17 iron) tablet Albuterol Sulfate [Ventolin Hfa] 1 - 2 puff INHALATION PRN PRN 01/02/18 potassium chloride ER 20 mEq 20 meq PO DAILY 90 Days #90 tab 02/17/18 tablet,extended release(part/cryst) Ipratropium/Albuterol Sulfate 3 ml INHALATION Q4H PRN 04/01/18 [Duoneb] Torsemide [Demadex] 100 mg PO DAILY 04/01/18 dexamethasone 4 mg tablet 4 mg PO DAILY 14 Days #14 tab 06/03/18 lorazepam 0.5 mg tablet 0.5 mg PO DAILY PRN 5 Days #5 tab 06/03/18 morphine concentrate 100 mg/5 mL 5 mg SUBLINGUAL 7 Days ml 06/03/18 (20 mg/mL) oral solution Aspirin [Aspirin, Baby] 81 mg PO DAILY@0800 06/20/18 Metolazone 2.5 mg PO BID 06/20/18 Metoprolol Tartrate [Lopressor 50 mg PO BID 06/20/18 (beta lorena)] Surgical History: Surgical History (Last Reviewed 06/21/18 @ 04:30 by Edson Mooney MD) History of hernia repair Z98.890, Z87.19 History of hysterectomy Z90.710 History of left heart catheterization Z98.890 X 2 Surgical History: herniorrhaphy, hysterectomy Lives: Spouse/ Significant Other Smoking Status: Current every day smoker Tobacco Use: Cigarettes - *Family History Paternal Family History: Family History (Last Reviewed 06/21/18 @ 04:30 by Edson Mooney MD) Mother Heart disease Father CAD (coronary artery disease) Hypertension Brother Hypertension History Items: Heart Disease Maternal Family History: Family History (Last Reviewed 06/21/18 @ 04:30 by Edson Mooney MD) Mother Heart disease Father CAD (coronary artery disease) Hypertension Brother Hypertension History Items: Heart Disease Review of Systems Constitutional: Denies: Chills, Fever, Weight Change HEENT: Denies: Head Aches, Sinus Congestion, Sinus Drainage Cardiovascular: Denies: Chest Pain, Palpitations Respiratory: Reports: Shortness of Breath Gastrointestinal: Denies: Abdominal Pain, Nausea, Vomiting Genitourinary: Denies: Dysuria Musculoskeletal: Denies: Joint Pain, Joint Tenderness Skin: Denies: Rash, Wounds Neurological: Reports: Confusion. Denies: Focal weakness, Numbness, Tingling Psychiatric: Reports: Anxiety, Depression. Denies: Homicidal Ideations, Suicidal Ideations Hematologic/ Lymphatic: Denies: Easy Bruising, Easy Bleeding VTE Information - Inpt Only VTE Present on Admission: No VTE Mechan Device Prophylaxis: None VTE Pharm Prophylaxis ordered?: Yes Patient Problems: Active and Suspected Problems (Last Reviewed 06/21/18 @ 04:30 by Edson Mooney MD) Acute respiratory failure with hypoxia and hypercapnia (Acute) Elevated troponin I level (Acute) Hyperglycemia due to type 2 diabetes mellitus (Acute) Acute encephalopathy (Acute) - Physical Exam General: Oriented x3, Cooperative, Lethargic HEENT: Atraumatic, PERRLA, EOMI, Normocephalic Neck: Supple, No JVD, Negative Carotid Bruits Lungs: Diminished Cardiovascular: Murmur, Tachycardic Abdomen: Bowel Sounds Present, Soft, Non Tender Extremities: Cool, Edema - Left worse than right, - - Bilateral varicose veins; with erythema Skin: No rashes, No breakdown Musculoskeletal: No Tenderness to Palpation of Joints or Extremities Neurological: - - Lethargic Psych/Mental Status: Normal Affect, Appropriate Vital Signs Temp Pulse Resp BP Pulse Ox 97.8 F 100 16 117/54 L 88 06/20/18 19:55 06/20/18 21:00 06/20/18 21:00 06/20/18 21:00 06/20/18 21:00 Oxygen Flow Rate (L/min) 6 Oxygen Delivery Method Bi-pap Weight: 124 kg Body Mass Index (BMI) 53.4 Finger Stick Blood Glucose 262 Laboratory Tests Past 24 Hrs 06/20/18 06/20/18 06/20/18 20:15 20:15 20:15 WBC 20.0 H RBC 4.02 L Hgb 10.3 L Hct 37.5 MCV 93.3 MCH 25.6 L MCHC 27.5 L RDW 16.3 H RDW Differential 55.9 H Plt Count 476 H MPV 9.6 Immature Gran % (Auto) 1.400 H Neut % (Auto) 87.8 H Lymph % (Auto) 5.9 L [place] % (Auto) 4.3 Eos % (Auto) 0.5 Baso % (Auto) 0.1 Absolute Neuts (auto) 17.6 H Absolute Lymphs (auto) 1.18 Total Counted Not Reportable Specimen Type Sample Site pH Bicarbonate Actual POC Total CO2 Base Excess O2 Saturation ABG pCO2 ABG pO2 Luis Fernando Test O2 Delivery Device Liter Flow Blood Gas Notified Whom Sodium 137 Potassium 4.2 Chloride 94 L Carbon Dioxide 41.0 H Anion Gap 2 L BUN 41 H Creatinine 1.06 H Estim Creat Clear Calc 35.47 Est GFR (MDRD) Af Amer 66 Est GFR (MDRD) Non-Af 55 L BUN/Creatinine Ratio 38.7 H Glucose 247 H Lactic Acid 1.5 Calcium 8.3 L Troponin I 0.173 H 06/20/18 20:16 WBC RBC Hgb Hct MCV MCH MCHC RDW RDW Differential Plt Count MPV Immature Gran % (Auto) Neut % (Auto) Lymph % (Auto) [place] % (Auto) Eos % (Auto) Baso % (Auto) Absolute Neuts (auto) Absolute Lymphs (auto) Total Counted Specimen Type ART Sample Site L Radial pH 7.33 L Bicarbonate Actual 43.7 H POC Total CO2 46 Base Excess 18 H O2 Saturation 99 ABG pCO2 83.2 H* ABG pO2 188 H Luis Fernando Test POS O2 Delivery Device NRB Mask Liter Flow 15.0 Blood Gas Notified Whom ED Sodium Potassium Chloride Carbon Dioxide Anion Gap BUN Creatinine Estim Creat Clear Calc Est GFR (MDRD) Af Amer Est GFR (MDRD) Non-Af BUN/Creatinine Ratio Glucose Lactic Acid Calcium Troponin I POC Glucose 06/20/18 19:57 POC Glucose 262 H Assessment/Plan All Active Problems (Last Reviewed 06/21/18 @ 04:30 by Edson Mooney MD) Acute respiratory failure with hypoxia and hypercapnia (Acute) Elevated troponin I level (Acute) Hyperglycemia due to type 2 diabetes mellitus (Acute) Acute encephalopathy (Acute) COPD exacerbation (Acute) Diastolic CHF, acute on chronic (Acute) CVA (cerebral vascular accident) (Resolved) CVA (cerebral vascular accident) (Resolved) History of GI bleeding (Resolved) The patient is a 68 year old F with a significant history of morbid obesity; former tobacco abuse; 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 Acute hypoxemic and hypercapnic respiratory failure. Patient required non-rebreather mask initially at the emergency department and was placed on BiPAP. His initial PCO2 was 83.2 and his pH was 7.33. We will continue BiPAP at this time and will keep patient n.p.o. Patient received Solu-Medrol at emergency department. Solu-Medrol continued. Patient received DuoNeb and albuterol in the emergency department; DuoNeb continued. Albuterol as needed ordered. We will continue Levaquin adjusted for creatinine clearance. Of note patient was on home dexamethasone which most likely is causing or at least contributing to her leukocytosis. Dexamethasone held as Solu-Medrol has been ordered. Symbicort continued Rapid influenza screen ordered. Follow blood cultures. Chronic diastolic heart failure We will continue home torsemide with potassium supplementation. Metolazone continued Diabetes mellitus On presentation her blood glucose was not within goal Sensitive to insulin admission will hold home metformin. Basal insulin ordered. Accu-Chek QACHS with correction scale ordered. Hypertension On presentation her blood pressure was within goal Metoprolol continued Trend blood pressures and adjust blood pressure medications. Tobacco Abuse counseled Decline nicotine patch DVT Prophylaxis Subcutaneous Lovenox ordered Code Visit Inpatient E&M: 63544 Init Hosp L3
[2018-06-20] MEDS: Albuterol 2.5 MG/3 ML VIAL.NEB. INHALATION ×2 (22:06)
[2018-06-20] MEDS: Ipratropium/Albuterol Sulfate 3 ML AMPUL.NEB INHALATION (22:06)
[2018-06-20] MEDS: levoFLOXacin IV 750 MG/150 ML BAG 100 MG IV (22:17)
[2018-06-20 23:21] LABS: Bedside Glucose 318 mg/dL (70-110)
[2018-06-20] MEDS: Insulin Lispro 100 UNIT/ML INSULN.PEN SQ (23:27)
[2018-06-20] MEDS: 0.9% NaCl Peripheral Flush Adult/Peds IV (23:45)
[2018-06-21] VITALS (31 sets, daily range): BP systolic 103–142; BP diastolic 57–82; PULSE 84–137; RESP 12–22; TEMP 35.9–36.9; O2SAT 92–99
[2018-06-21] MEDS: Ipratropium/Albuterol Sulfate 3 ML AMPUL.NEB INHALATION ×6 (01:41→23:45)
[2018-06-21] MEDS: 0.9% NaCl Peripheral Flush Adult/Peds IV ×5 (05:05→21:16)
[2018-06-21 06:50] LABS: Bedside Glucose 330 mg/dL (70-110)
[2018-06-21 06:53] LABS: Anion Gap 10 (5-15); BUN 39 mg/dL (7-18); BUN/Creat Ratio 36.1 RATIO (10-20); Calcium,Total 8.9 mg/dL (8.5-10.1); Chloride 95 mmol/L (98-107); Creatinine, Serum 1.08 mg/dL (0.55-1.02); EST Glomerular Filtration Rate 53 mL/min (>60); Est Glom Filt Rate - Afr Amer 65 mL/min (>60); Glucose 337 mg/dL (74-106); Potassium 4.7 mmol/L (3.5-5.1); Sodium Level 142 mmol/L (136-145)
[2018-06-21 07:02] LABS: Absolute Lymphocyte Count 0.18 X10^3/ul (0.83-4.51); Absolute Neutrophil Count 14.4 X10^3/uL (2.0-7.7); Hemoglobin 9.7 g/dl (12.0-15.0); Lymphocyte # 0.18 X10^3/ul (4.0); Lymphocyte % 1.2 % (19-41); Mean Corp Hgb Conc 26.9 g/gl (32-36); Mean Corpuscular Hgb 25.5 pg (27.0-32.0); Mean Corpuscular Volume 94.7 fL (81-99); Mean Platelet Vol. 9.6 fl (6.2-12.0); Monocyte# 0.14 X10^3/uL; Monocyte% 0.9 % (0-10); Neutrophil # 14.41 X10^3/uL (2.7-7.7); Platelet Count 406 K/mm3 (150-450); RBC Distribution Width CV 16.5 % (11.6-14.6); RBC Distribution Width SD 56.9 fl (35.1-43.9); White Blood Count 14.9 K/mm3 (4.4-11.0)
[2018-06-21 07:09] LABS: Differential Indicated SCAN CRITERIA MET; POSITIVE COUNT NO; POSITIVE DIFFERENTIAL YES; POSITIVE MORPHOLOGY NO
[2018-06-21] MEDS: Aspirin 81 MG TAB.CHEW PO (07:39)
[2018-06-21] MEDS: Ferrous Sulfate 325 MG Tablet PO ×3 (07:39→17:25)
[2018-06-21] MEDS: Insulin Lispro 100 UNIT/ML INSULN.PEN SQ ×4 (07:39→21:03)
[2018-06-21 07:43] LABS: Hypersegmented Neutrophils RARE
[2018-06-21] MEDS: Metoprolol Tartrate 50 MG Tablet PO ×2 (09:17→21:04)
[2018-06-21] MEDS: Enoxaparin 40 MG/0.4 ML Syringe SC (09:17)
[2018-06-21] MEDS: Escitalopram Oxalate 10 MG Tablet PO (09:17)
[2018-06-21] MEDS: Torsemide 100 MG Tablet PO (09:17)
[2018-06-21] MEDS: Metolazone 2.5 MG Tablet PO ×2 (09:17→21:04)
--- NOTE | 2018-06-21 10:04 | PCM.PN.HOSP ---
Patient Problems: Active and Suspected Problems (Last Reviewed 06/21/18 @ 04:30 by Edson Mooney MD) Acute respiratory failure with hypoxia and hypercapnia (Acute) Elevated troponin I level (Acute) Hyperglycemia due to type 2 diabetes mellitus (Acute) Acute encephalopathy (Acute) Vitals/I&O's: Vital Signs Temp Pulse Resp BP Pulse Ox 98.4 F 110 H 20 H 142/68 H 96 06/21/18 09:00 06/21/18 09:17 06/21/18 09:00 06/21/18 09:00 06/21/18 09:00 Oxygen Flow Rate (L/min) 4 Oxygen Delivery Method Nasal Cannula Weight: 260 lb 2.327 oz Body Mass Index (BMI) 46.3 Finger Stick Blood Glucose 262 Intake and Output for Last 24 Hours 06/19/18 06/20/18 06/21/18 23:59 23:59 23:59 Intake Total 400 / 400 Output Total 1450 / 1450 Balance -1050 / -1050 Microbiology Past 72 Hours 06/21/18 04:15 Mucosa - Nose Influenza Types A,B Direct FA (TESS) - Final Laboratory Results 06/20/18 19:57: POC Glucose 262 H 06/20/18 20:15: WBC 20.0 H, RBC 4.02 L, Hgb 10.3 L, Hct 37.5, MCV 93.3, MCH 25.6 L, MCHC 27.5 L, RDW 16.3 H, RDW Differential 55.9 H, Plt Count 476 H, MPV 9.6, Immature Gran % (Auto) 1.400 H, Neut % (Auto) 87.8 H, Lymph % (Auto) 5.9 L, [place] % (Auto) 4.3, Eos % (Auto) 0.5, Baso % (Auto) 0.1, Absolute Neuts (auto) 17.6 H, Absolute Lymphs (auto) 1.18, Total Counted Not Reportable 06/20/18 20:15: Sodium 137, Potassium 4.2, Chloride 94 L, Carbon Dioxide 41.0 H, Anion Gap 2 L, BUN 41 H, Creatinine 1.06 H, Estim Creat Clear Calc 35.47, Est GFR (MDRD) Af Amer 66, Est GFR (MDRD) Non-Af 55 L, BUN/Creatinine Ratio 38.7 H, Glucose 247 H, Calcium 8.3 L, Troponin I 0.173 H 06/20/18 20:15: Lactic Acid 1.5 06/20/18 20:16: Specimen Type ART, Sample Site L Radial, pH 7.33 L, Bicarbonate Actual 43.7 H, POC Total CO2 46, Base Excess 18 H, O2 Saturation 99, ABG pCO2 83.2 H*, ABG pO2 188 H, Luis Fernando Test POS, O2 Delivery Device NRB Mask, Liter Flow 15.0, Blood Gas Notified Whom ED 06/20/18 23:11: POC Glucose 318 H 06/21/18 05:25: WBC 14.9 H, RBC 3.80 L, Hgb 9.7 L, Hct 36.0 L, MCV 94.7, MCH 25.5 L, MCHC 26.9 L, RDW 16.5 H, RDW Differential 56.9 H, Plt Count 406, MPV 9.6, Immature Gran % (Auto) 0.900, Neut % (Auto) 97.0 H, Lymph % (Auto) 1.2 L, [place] % (Auto) 0.9, Eos % (Auto) 0.0, Baso % (Auto) 0.0, Absolute Neuts (auto) 14.4 H, Absolute Lymphs (auto) 0.18 L, Total Counted Not Reportable, Hypersegmented Neuts RARE 06/21/18 05:25: Sodium 142, Potassium 4.7, Chloride 95 L, Carbon Dioxide 37.0 H, Anion Gap 10, BUN 39 H, Creatinine 1.08 H, Estim Creat Clear Calc 40.10, Est GFR (MDRD) Af Amer 65, Est GFR (MDRD) Non-Af 53 L, BUN/Creatinine Ratio 36.1 H, Glucose 337 H, Calcium 8.9 06/21/18 06:42: POC Glucose 330 H Current Medications Acetaminophen (Tylenol) 650 mg PO Q6H PRN PRN PRN Reason: Mild Pain (scale 0-3)/T>100.7 Albuterol Sulfate (Ventolin Aerosols) 2.5 mg INHALATION Q2H PRN PRN PRN Reason: SHORTNESS OF BREATH Albuterol/Ipratropium (Duoneb) 3 ml INHALATION Q4H.RT RAINER Last Admin: 06/21/18 06:44 Dose: 3 ml Aspirin (Aspirin, Baby) 81 mg PO DAILY@0800 [facility] Last Admin: 06/21/18 07:39 Dose: 81 mg Atorvastatin Calcium (Lipitor) 10 mg PO QHS [facility] Bisacodyl (Dulcolax) 10 mg RECTAL DAILY PRN PRN PRN Reason: Constipation Dextrose (D50w Syringe) 0 gm IV X1 PRN; Protocol PRN Reason: Hypoglycemia Enoxaparin Sodium (Lovenox) 40 mg SC DAILY@1000 [facility] Last Admin: 06/21/18 09:17 Dose: 40 mg Escitalopram Oxalate (Lexapro) 10 mg PO DAILY [facility] Last Admin: 06/21/18 09:17 Dose: 10 mg Ferrous Sulfate (Ferrous Sulfate) 325 mg PO TIDCM [facility] Last Admin: 06/21/18 07:39 Dose: 325 mg Fluticasone Propionate (Flonase Nasal [place]) 1 spray NASAL BID PRN PRN Reason: ALLERGIES Glucagon () 1 mg IM .X1 PRN PRN Reason: Hypoglycemia Levofloxacin (Levaquin Iv) 750 mg in 150 mls @ 100 mls/hr IV Q48H [facility] Insulin Glargine (Lantus (Bkc)) 8 units SC QHS [facility] Last Admin: 06/20/18 23:27 Dose: 8 units Insulin Human Lispro (Humalog Kwikpen (Bkc)) 0 unit SQ ACHS [facility]; Protocol Last Admin: 06/21/18 07:39 Dose: 5 u Lorazepam (Ativan) 0.5 mg PO DAILY PRN PRN PRN Reason: anxiety Magnesium Hydroxide (Milk Of Magnesia) 30 ml PO DAILY PRN PRN Reason: Constipation Methylprednisolone (Solu-Medrol) 40 mg IV Q8 [facility] Last Admin: 06/21/18 05:07 Dose: 40 mg Metolazone (Zaroxolyn) 2.5 mg PO BID@0930,2200 [facility] Last Admin: 06/21/18 09:17 Dose: 2.5 mg Metoprolol Tartrate (Lopressor (Beta [place])) 50 mg PO BID [facility] Last Admin: 06/21/18 09:17 Dose: 50 mg Morphine Sulfate (Roxanol (Ir Oral Solution)) 5 mg SL Q4H PRN PRN PRN Reason: SEVERE PAIN (6-10/10) Ondansetron HCl (Zofran) 4 mg IV Q8H PRN PRN PRN Reason: NAUSEA Potassium Chloride (K-Dur) 20 meq PO DAILYCM RAINER Last Admin: 06/21/18 07:39 Dose: 20 meq Sodium Chloride () 5 - 15 ml IV UD PRN PRN Reason: SALINE FLUSH Last Admin: 06/21/18 05:06 Dose: 10 ml Torsemide (Demadex) 100 mg PO DAILY [facility] Last Admin: 06/21/18 09:17 Dose: 100 mg Trazodone HCl (Desyrel) 100 mg PO QHS PRN PRN PRN Reason: SLEEP Medical Necessity - Tobacco Use Smoking Status: Current every day smoker Tobacco Use: Cigarettes Assessment/Plan All Active Problems (Last Reviewed 06/21/18 @ 04:30 by Edson Mooney MD) Acute respiratory failure with hypoxia and hypercapnia (Acute) Elevated troponin I level (Acute) Hyperglycemia due to type 2 diabetes mellitus (Acute) Acute encephalopathy (Acute) COPD exacerbation (Acute) Diastolic CHF, acute on chronic (Acute) CVA (cerebral vascular accident) (Resolved) CVA (cerebral vascular accident) (Resolved) History of GI bleeding (Resolved) Microbiology Past 72 Hours 06/21/18 04:15 Mucosa - Nose Influenza Types A,B Direct FA (TESS) - Final Laboratory Results 06/20/18 19:57: POC Glucose 262 H 06/20/18 20:15: WBC 20.0 H, RBC 4.02 L, Hgb 10.3 L, Hct 37.5, MCV 93.3, MCH 25.6 L, MCHC 27.5 L, RDW 16.3 H, RDW Differential 55.9 H, Plt Count 476 H, MPV 9.6, Immature Gran % (Auto) 1.400 H, Neut % (Auto) 87.8 H, Lymph % (Auto) 5.9 L, [place] % (Auto) 4.3, Eos % (Auto) 0.5, Baso % (Auto) 0.1, Absolute Neuts (auto) 17.6 H, Absolute Lymphs (auto) 1.18, Total Counted Not Reportable 06/20/18 20:15: Sodium 137, Potassium 4.2, Chloride 94 L, Carbon Dioxide 41.0 H, Anion Gap 2 L, BUN 41 H, Creatinine 1.06 H, Estim Creat Clear Calc 35.47, Est GFR (MDRD) Af Amer 66, Est GFR (MDRD) Non-Af 55 L, BUN/Creatinine Ratio 38.7 H, Glucose 247 H, Calcium 8.3 L, Troponin I 0.173 H 06/20/18 20:15: Lactic Acid 1.5 06/20/18 20:16: Specimen Type ART, Sample Site L Radial, pH 7.33 L, Bicarbonate Actual 43.7 H, POC Total CO2 46, Base Excess 18 H, O2 Saturation 99, ABG pCO2 83.2 H*, ABG pO2 188 H, Luis Fernando Test POS, O2 Delivery Device NRB Mask, Liter Flow 15.0, Blood Gas Notified Whom ED 06/20/18 23:11: POC Glucose 318 H 06/21/18 05:25: WBC 14.9 H, RBC 3.80 L, Hgb 9.7 L, Hct 36.0 L, MCV 94.7, MCH 25.5 L, MCHC 26.9 L, RDW 16.5 H, RDW Differential 56.9 H, Plt Count 406, MPV 9.6, Immature Gran % (Auto) 0.900, Neut % (Auto) 97.0 H, Lymph % (Auto) 1.2 L, [place] % (Auto) 0.9, Eos % (Auto) 0.0, Baso % (Auto) 0.0, Absolute Neuts (auto) 14.4 H, Absolute Lymphs (auto) 0.18 L, Total Counted Not Reportable, Hypersegmented Neuts RARE 06/21/18 05:25: Sodium 142, Potassium 4.7, Chloride 95 L, Carbon Dioxide 37.0 H, Anion Gap 10, BUN 39 H, Creatinine 1.08 H, Estim Creat Clear Calc 40.10, Est GFR (MDRD) Af Amer 65, Est GFR (MDRD) Non-Af 53 L, BUN/Creatinine Ratio 36.1 H, Glucose 337 H, Calcium 8.9 06/21/18 06:42: POC Glucose 330 H
--- NOTE | 2018-06-21 10:50 | CASEMGMT ---
SW met w/pt in regard to prior level of functioning and discharge plan. Pt alert and oriented X 3 at present. KAILASH Combs was also present in room initially. PCP: Dr. Chen Specialists: Dr. Dixon, Dr. Xavier Preferred Pharmacy: [facility] in [place], [facility] by mail, or hospice--covers many of her meds as per pt. Insurance/Prescription Benefit: Medicare, [employer] LW/POA: is POA, forms are not on the chart, pt made aware. Living arrangements: Pt lives home in one story home w/, one step in. Pt is independent with personal ADL's, organizes her own medications, does some cooking. helps with cooking, drives, and pt has a cleaning person. DME/HHC/Agencies: Pt has walk i nshower, rollator, scooter, grab bars. Pt has home O2 6LPM and [employer] through [employer] with hospice. Pt was on hospice w/[facility] prior to admission. Pt went unresponsive yesterday and so hospice is revoked at this time. Plan: Pt has been on hospice since April and would like to resume hospice at discharge. SW explained will notify hospice and she may need to revoke hospice while here. Pt states understanding. SW explained they will likely see her then once discharged at home to re-sign for services. SW also spoke w/pt about code status. Pt had indicated when speaking w/Shemar that she would like chest compressions and intubated if needed. SW inquired if pt had signed a DNR with hospice, pt states she does not know what this is. ANTONIO explained what a DNRCC is, pt states she does not know, states that it is confusing. ANTONIO called hospice, let Zeinab know pt is here. Meagan will come today and have pt sign papers to revoke hospice. ANTONIO let Zeinab know that pt will want hospice again at discharge, ANTONIO explained we can have hospice called tomorrow at discharge so pt can be seen at home tomorrow to re-sign for hospice. ANTONIO also asked Zeinab to have someone review w/pt code status, as pt does not seem to fully understand what full code means vs DNRCC. As per Zeinab, pt is a DNRCC w/hospice. ANTONIO again asked for this to be reviewed w/pt as she indicated to PA here would want chest compressions and intubated. Zeinab states that pts under Medicare can be a full code on hospice. She will let Meagan know about pt's confusion on the code status, as Meagan will likely be the one to re-sign pt for services. SW let pt know that Meagan will be here today to have her sign papers to revoke hospice, and then we will have hospice called at discharge to have someone set up a time to meet pt at home to re-sign for services. ANTONIO will place green sheet on chart in anticipation of discharge home w/hospice tomorrow. JAGUAR Haro, WEIGHT LOSS CONSULTANT
--- NOTE | 2018-06-21 11:27 | CASEMGMT ---
LW/POA not on chart, SW let pt know that the forms are not on chart, asked her to bring in papers if able when outpt. JAGUAR Haro, HERITAGE CONSULTANT
[2018-06-21 11:30] LABS: Bedside Glucose 321 mg/dL (70-110)
--- NOTE | 2018-06-21 12:56 | PCM.PROGNOTE ---
<Shemar Butcher - Last Filed: 06/21/18 12:56> Patient Problems: Active and Suspected Problems (Last Reviewed 06/21/18 @ 04:30 by Edson Mooney MD) Acute respiratory failure with hypoxia and hypercapnia (Acute) Elevated troponin I level (Acute) Hyperglycemia due to type 2 diabetes mellitus (Acute) Acute encephalopathy (Acute) Subjective: Pt improved since last night. She is currently requiring the same amount of O2 that she uses at home. She confirms that yes despite being on hospice at home, she wants to be full code while admitted including intubation, mechanical ventilation, and CPR if necessary. She states that she is only on hospice as there were certain treatments that she would be able to receive that were unavailable while on palliative. She is not sure at this time what those were. She does admit that she took an extra dose of sublingual morphine yesterday and she feels this may have led to some of her issues yesterday. She is back on her normal dose and feeling better. She has no fever or chills. No new cough. No worsening of her chronic LE edema. She is mildly SOB compared to baseline. Baseline o2 use is 4 lpm at rest and 6lpm with activity. - Physical Exam General: Alert, Oriented x3, Cooperative HEENT: Atraumatic, PERRLA, EOMI, Normocephalic Neck: Supple, No JVD, Negative Carotid Bruits Lungs: Diminished - severely Cardiovascular: Regular rate, Murmur - 3/6 systolic murmur heard across chest. Abdomen: Bowel Sounds Present, Soft, Non Tender Extremities: Capillary Refill Less than 3 Seconds, Edema - 2+ pitting edema BLE Skin: No rashes, No breakdown Musculoskeletal: No Tenderness to Palpation of Joints or Extremities Neurological: Cranial nerves II-XII grossly intact Psych/Mental Status: Normal Affect, Appropriate, Alert and oriented to time, place, person, mood and affect Vital Signs Temp Pulse Resp BP Pulse Ox 98.4 F 86 18 142/68 H 94 06/21/18 09:00 06/21/18 11:02 06/21/18 11:02 06/21/18 09:00 06/21/18 11:02 Oxygen Flow Rate (L/min) 4 Oxygen Delivery Method Nasal Cannula Weight: 260 lb 2.327 oz Body Mass Index (BMI) 46.3 Finger Stick Blood Glucose 262 Intake and Output for Last 24 Hours 06/19/18 06/20/18 06/21/18 23:59 23:59 23:59 Intake Total 1120 / 1120 Output Total 3150 / 3150 Balance -2029 / -2029 Microbiology Past 72 Hours 06/21/18 04:15 Influenza Types A,B Direct FA (TESS) - Final Mucosa - Nose Laboratory Tests Past 24 Hrs 06/20/18 06/20/18 06/20/18 20:15 20:15 20:15 WBC 20.0 H RBC 4.02 L Hgb 10.3 L Hct 37.5 MCV 93.3 MCH 25.6 L MCHC 27.5 L RDW 16.3 H RDW Differential 55.9 H Plt Count 476 H MPV 9.6 Immature Gran % (Auto) 1.400 H Neut % (Auto) 87.8 H Lymph % (Auto) 5.9 L [place] % (Auto) 4.3 Eos % (Auto) 0.5 Baso % (Auto) 0.1 Absolute Neuts (auto) 17.6 H Absolute Lymphs (auto) 1.18 Total Counted Not Reportable Hypersegmented Neuts Specimen Type Sample Site pH Bicarbonate Actual POC Total CO2 Base Excess O2 Saturation ABG pCO2 ABG pO2 Luis Fernando Test O2 Delivery Device Liter Flow Blood Gas Notified Whom Sodium 137 Potassium 4.2 Chloride 94 L Carbon Dioxide 41.0 H Anion Gap 2 L BUN 41 H Creatinine 1.06 H Estim Creat Clear Calc 35.47 Est GFR (MDRD) Af Amer 66 Est GFR (MDRD) Non-Af 55 L BUN/Creatinine Ratio 38.7 H Glucose 247 H Lactic Acid 1.5 Calcium 8.3 L Troponin I 0.173 H 06/20/18 06/21/18 06/21/18 20:16 05:25 05:25 WBC 14.9 H RBC 3.80 L Hgb 9.7 L Hct 36.0 L MCV 94.7 MCH 25.5 L MCHC 26.9 L RDW 16.5 H RDW Differential 56.9 H Plt Count 406 MPV 9.6 Immature Gran % (Auto) 0.900 Neut % (Auto) 97.0 H Lymph % (Auto) 1.2 L [place] % (Auto) 0.9 Eos % (Auto) 0.0 Baso % (Auto) 0.0 Absolute Neuts (auto) 14.4 H Absolute Lymphs (auto) 0.18 L Total Counted Not Reportable Hypersegmented Neuts RARE Specimen Type ART Sample Site L Radial pH 7.33 L Bicarbonate Actual 43.7 H POC Total CO2 46 Base Excess 18 H O2 Saturation 99 ABG pCO2 83.2 H* ABG pO2 188 H Luis Fernando Test POS O2 Delivery Device NRB Mask Liter Flow 15.0 Blood Gas Notified Whom ED Sodium 142 Potassium 4.7 Chloride 95 L Carbon Dioxide 37.0 H Anion Gap 10 BUN 39 H Creatinine 1.08 H Estim Creat Clear Calc 40.10 Est GFR (MDRD) Af Amer 65 Est GFR (MDRD) Non-Af 53 L BUN/Creatinine Ratio 36.1 H Glucose 337 H Lactic Acid Calcium 8.9 Troponin I POC Glucose 06/21/18 06/21/18 06/20/18 11:13 06:42 23:11 POC Glucose 321 H 330 H 318 H 06/20/18 19:57 POC Glucose 262 H Medical Necessity - Tobacco Use Smoking Status: Current every day smoker Tobacco Use: Cigarettes Assessment/Plan All Active Problems (Last Reviewed 06/21/18 @ 04:30 by Edson Mooney MD) Acute respiratory failure with hypoxia and hypercapnia (Acute) Elevated troponin I level (Acute) Hyperglycemia due to type 2 diabetes mellitus (Acute) Acute encephalopathy (Acute) COPD exacerbation (Acute) Diastolic CHF, acute on chronic (Acute) CVA (cerebral vascular accident) (Resolved) CVA (cerebral vascular accident) (Resolved) History of GI bleeding (Resolved) 1. Acute on chronic combined respiratory failure 2/2 Acute COPD exacerbation, complicated by severe , pulmonary fibrosis, pulmonary htn - continue aerosols. Steroids. Pt improving. Afebrile. WBC improving off of decadron. O2 use at baseline. Lungs severely diminished. pH is 7.33 pCO2 83.2, o2 188 on admission. indeterminate trop. Continue levaquin. No infiltrate on CXR. Continue bipap qhs. 2. Severe - no evidence of acute HF at this time, hx diastolic CHF, continue torsemide and xaroxalyn 3. CKDIII - stable 4. HTN - stable 5. HLD - statin 6. DMt2 with morbid obesity - continue LA insulin and SSI 7. Anx/depression - lexapro, trazodone, ativan 8. Iron def anemia - continue PO iron. 9. Hx CVA - asa/statin DVT ppx: lovenox DC planning: return home on hospice tomorrow This patient was seen by Shemar Butcher PA-C under the supervision of Dr. Medrano <Renaldo Medrano - Last Filed: 06/21/18 17:53> Subjective: Seen and examined. It seems patient is on hospice at home and has been on morphine sulfate sublingual drop. Patient had 2 drops yesterday and had transient altered sensorium whether minimal responsive or unresponsive unclear. As mentioned above, she wants to be full code. aboriginal education worker coordinator, Raquel talked to the family. - Physical Exam General: Alert, Oriented x3, Cooperative HEENT: Atraumatic, PERRLA, EOMI, Normocephalic Neck: Supple, No JVD, Negative Carotid Bruits Lungs: Diminished - severely Severely diminished secondary to morbid obesity Cardiovascular: Regular rate, Regular Rhythm, Normal S1, Normal S2, Murmur Abdomen: Bowel Sounds Present, Soft, Non Tender Extremities: Capillary Refill Less than 3 Seconds, Edema - 2+ pitting edema BLE Chronic venous changes with the stasis dermatitis Skin: No rashes, No breakdown Musculoskeletal: No Tenderness to Palpation of Joints or Extremities, Arthritic Changes Neurological: Cranial nerves II-XII grossly intact Psych/Mental Status: Normal Affect, Appropriate Vital Signs Temp Pulse Resp BP Pulse Ox 98.2 F 100 18 131/63 H 99 06/21/18 14:48 06/21/18 15:29 06/21/18 15:25 06/21/18 14:48 06/21/18 14:48 Oxygen Flow Rate (L/min) 4 Oxygen Delivery Method Nasal Cannula Weight: 260 lb 2.327 oz Body Mass Index (BMI) 46.3 Finger Stick Blood Glucose 262 Intake and Output for Last 24 Hours 06/19/18 06/20/18 06/21/18 23:59 23:59 23:59 Intake Total 1720 / 1720 Output Total 6150 / 6150 Balance -4430 / -4430 Microbiology Past 72 Hours 06/21/18 04:15 Influenza Types A,B Direct FA (TESS) - Final Mucosa - Nose Laboratory Tests Past 24 Hrs 06/20/18 06/20/18 06/20/18 20:15 20:15 20:15 WBC 20.0 H RBC 4.02 L Hgb 10.3 L Hct 37.5 MCV 93.3 MCH 25.6 L MCHC 27.5 L RDW 16.3 H RDW Differential 55.9 H Plt Count 476 H MPV 9.6 Immature Gran % (Auto) 1.400 H Neut % (Auto) 87.8 H Lymph % (Auto) 5.9 L [place] % (Auto) 4.3 Eos % (Auto) 0.5 Baso % (Auto) 0.1 Absolute Neuts (auto) 17.6 H Absolute Lymphs (auto) 1.18 Total Counted Not Reportable Hypersegmented Neuts Specimen Type Sample Site pH Bicarbonate Actual POC Total CO2 Base Excess O2 Saturation ABG pCO2 ABG pO2 Luis Fernando Test O2 Delivery Device Liter Flow Blood Gas Notified Whom Sodium 137 Potassium 4.2 Chloride 94 L Carbon Dioxide 41.0 H Anion Gap 2 L BUN 41 H Creatinine 1.06 H Estim Creat Clear Calc 35.47 Est GFR (MDRD) Af Amer 66 Est GFR (MDRD) Non-Af 55 L BUN/Creatinine Ratio 38.7 H Glucose 247 H Lactic Acid 1.5 Calcium 8.3 L Troponin I 0.173 H 06/20/18 06/21/18 06/21/18 20:16 05:25 05:25 WBC 14.9 H RBC 3.80 L Hgb 9.7 L Hct 36.0 L MCV 94.7 MCH 25.5 L MCHC 26.9 L RDW 16.5 H RDW Differential 56.9 H Plt Count 406 MPV 9.6 Immature Gran % (Auto) 0.900 Neut % (Auto) 97.0 H Lymph % (Auto) 1.2 L [place] % (Auto) 0.9 Eos % (Auto) 0.0 Baso % (Auto) 0.0 Absolute Neuts (auto) 14.4 H Absolute Lymphs (auto) 0.18 L Total Counted Not Reportable Hypersegmented Neuts RARE Specimen Type ART Sample Site L Radial pH 7.33 L Bicarbonate Actual 43.7 H POC Total CO2 46 Base Excess 18 H O2 Saturation 99 ABG pCO2 83.2 H* ABG pO2 188 H Luis Fernando Test POS O2 Delivery Device NRB Mask Liter Flow 15.0 Blood Gas Notified Whom ED Sodium 142 Potassium 4.7 Chloride 95 L Carbon Dioxide 37.0 H Anion Gap 10 BUN 39 H Creatinine 1.08 H Estim Creat Clear Calc 40.10 Est GFR (MDRD) Af Amer 65 Est GFR (MDRD) Non-Af 53 L BUN/Creatinine Ratio 36.1 H Glucose 337 H Lactic Acid Calcium 8.9 Troponin I POC Glucose 06/21/18 06/21/18 06/21/18 16:16 11:13 06:42 POC Glucose 397 H 321 H 330 H 06/20/18 06/20/18 23:11 19:57 POC Glucose 318 H 262 H Assessment/Plan This patient was seen in conjunction with Shemar LINDER. I have independently interviewed and examined the patient and reviewed pertinent history, examination findings, laboratory and plan of management. I have reviewed the note and agree with the documented findings with the few additional points. In brief, patient is admitted for acute on chronic combined respiratory failure secondary to acute COPD exacerbation, severe aortic stenosis, pulmonary hypertension and pulmonary fibrosis and morphine sulfate overdose. Patient has been on home hospice before but she revoked now. Patient had multiple recurrent admission for respiratory failure in the past. Discussed with the high risk for intubation and difficult extubation and further complications including prolonged ventilation and possible tracheostomy I have discussed my assessment with Shemar LINDER and orders have been reviewed. Code Visit Inpatient E&M: 58121 Subs Hosp L3
[2018-06-21 16:20] LABS: Bedside Glucose 397 mg/dL (70-110)
[2018-06-21] MEDS: Atorvastatin Calcium 10 MG Tablet PO (21:04)
[2018-06-21 23:16] LABS: Bedside Glucose 406 mg/dL (70-110)
[2018-06-22] VITALS (9 sets, daily range): BP systolic 125–141; BP diastolic 58–81; PULSE 84–103; RESP 13–19; TEMP 36.4–36.6; O2SAT 94–99
[2018-06-22] MEDS: Ipratropium/Albuterol Sulfate 3 ML AMPUL.NEB INHALATION ×2 (03:00→06:58)
[2018-06-22] MEDS: 0.9% NaCl Peripheral Flush Adult/Peds IV ×3 (06:28→06:35)
[2018-06-22 06:47] LABS: Anion Gap 9 (5-15); BUN 52 mg/dL (7-18); BUN/Creat Ratio 40.6 RATIO (10-20); Calcium,Total 9.5 mg/dL (8.5-10.1); Chloride 85 mmol/L (98-107); Creatinine, Serum 1.28 mg/dL (0.55-1.02); EST Glomerular Filtration Rate 44 mL/min (>60); Est Glom Filt Rate - Afr Amer 53 mL/min (>60); Estimated Creatinine Clearance 33.83 ml/min; Glucose 340 mg/dL (74-106); Potassium 4.4 mmol/L (3.5-5.1); Sodium Level 134 mmol/L (136-145)
[2018-06-22] MEDS: Ferrous Sulfate 325 MG Tablet PO ×2 (07:45→11:09)
[2018-06-22] MEDS: Insulin Lispro 100 UNIT/ML INSULN.PEN SQ ×2 (07:45→11:09)
[2018-06-22] MEDS: Aspirin 81 MG TAB.CHEW PO (07:45)
[2018-06-22] MEDS: Enoxaparin 40 MG/0.4 ML Syringe SC (08:58)
[2018-06-22] MEDS: Metoprolol Tartrate 50 MG Tablet PO (08:58)
[2018-06-22] MEDS: Escitalopram Oxalate 10 MG Tablet PO (08:58)
[2018-06-22] MEDS: Metolazone 2.5 MG Tablet PO (08:58)
[2018-06-22] MEDS: Torsemide 100 MG Tablet PO (08:59)
--- NOTE | 2018-06-22 10:28 | PCM.DC ---
- Discharge Diagnoses Current Active Problems: Current Active and Chronic Problems (Last Reviewed 06/21/18 @ 04:30 by Edson Mooney MD) Acute respiratory failure with hypoxia and hypercapnia (Acute) COPD with acute exacerbation (Chronic) Elevated troponin I level (Acute) Hyperglycemia due to type 2 diabetes mellitus (Acute) Acute encephalopathy (Acute) You will use the following diet at home:: Other - as directed by hospice Your food should be the consistency of: Regular Your liquids should be the consistency of: Regular/Thin Discharge Activity: - - as directed by hospice Allergies/Adverse Reactions: Allergies No Known Allergies Allergy (Verified 06/20/18 20:05) Medications to take at Discharge Metformin HCl [Glucophage] 1,000 mg PO BIDCM 01/15/14 Simvastatin [Zocor] 20 mg PO QHS 01/15/14 Escitalopram Oxalate [Lexapro] 10 mg PO DAILY 06/29/15 traZODone [Desyrel] 100 mg PO QHS PRN PRN 06/29/15 Budesonide/Formoterol Fumarate [Symbicort 160-4.5 Mcg Inhaler] 2 puff IH BID 03/27/17 Fluticasone 0.05% [Flonase Nasal [place]] 1 spray NASAL BID PRN 04/24/17 Acetaminophen [Tylenol Tablet] 650 mg PO Q6H PRN PRN tab 06/10/17 ferrous sulfate 325 mg (65 mg iron) tablet 325 mg PO TID tab 09/09/17 Albuterol Sulfate [Ventolin Hfa] 1 - 2 puff INHALATION PRN PRN 01/02/18 potassium chloride ER 20 mEq tablet,extended release(part/cryst) 20 meq PO DAILY 90 Days #90 tab 02/17/18 Ipratropium/Albuterol Sulfate [Duoneb] 3 ml INHALATION Q4H PRN 04/01/18 Torsemide [Demadex] 100 mg PO DAILY 04/01/18 lorazepam 0.5 mg tablet 0.5 mg PO DAILY PRN 5 Days #5 tab 06/03/18 morphine concentrate 100 mg/5 mL (20 mg/mL) oral solution 5 mg SUBLINGUAL 7 Days ml 06/03/18 Aspirin [Aspirin, Baby] 81 mg PO DAILY@0800 06/20/18 Metolazone 2.5 mg PO BID 06/20/18 Metoprolol Tartrate [Lopressor (beta lore[place])] 50 mg PO BID 06/20/18 Dexamethasone [Decadron] 4 mg PO DAILY 14 Days #14 tab 06/22/18 Prednisone 10 mg PO UD #30 tab 06/22/18 levoFLOXacin tablet [Levaquin tablet] 750 mg PO Q48H #2 tab 06/22/18 The following prescriptions were given: levoFLOXacin tablet [Levaquin tablet] 750 mg PO Q48H #2 tab Prednisone 10 mg PO UD #30 tab Primary Care Physician: Vic Chen MD [Primary Care Provider] - Please follow up with your Primary Care Physician in: 1-2 weeks Test Results: Test results from this visit will be discussed in further detail at your follow-up appointment, if applicable. Please Follow Up With: Hospice When: As directed Proposed Discharge Date: 06/22/18
[2018-06-22 11:10] LABS: Bedside Glucose 376 mg/dL (70-110)
[2018-06-22 11:15] LABS: Bedside Glucose 410 mg/dL (70-110)
--- NOTE | 2018-06-22 11:33 | PCA ---
Faxed discharge paperwork to hospice at [phone]. Spoke with Meagan at [facility] at [phone] and notified her of discharge being ready and being here to transport her home, stated she would notify the nurse.
--- NOTE | 2018-06-22 13:14 | PCM.DC.SUM ---
<Shemar Butcher - Last Filed: 06/22/18 13:14> Discharge Date and Diagnosis Date of Admission: 06/20/18 Date of Discharge: 06/22/18 - Primary Discharge Diagnosis Acute on chronic hypoxic and hypercapnic respiratory failure secondary to acute COPD exacerbation, and overdose on sublingual morphine Severe aortic stenosis Pulmonary fibrosis Pulmonary hypertension CKD stage III Hypertension Hyperlipidemia Type 2 diabetes with morbid obesity Anxiety and depression Iron deficiency anemia History of CVA - Secondary Discharge Diagnosis Chronic Problems (Last Reviewed 06/21/18 @ 04:30 by Edson Mooney MD) COPD with acute exacerbation (Chronic) Respiratory failure (Chronic) Depression (Chronic) Morbid obesity (Chronic) Aortic valve stenosis (Chronic) Pulmonary hypertension (Chronic) CKD stage 3 secondary to diabetes (Chronic) Chronic diastolic (congestive) heart failure (Chronic) Cerebral infarction, unspecified (Chronic) Palpitations (Chronic) Anxiety (Chronic) Left atrial enlargement (Chronic) Hypersomnia (Chronic) Anemia (Chronic) Carotid artery stenosis (Chronic) Chronic hypoxemic respiratory failure (Chronic) Pulmonary fibrosis (Chronic) 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 3 severe COPD by GOLD classification (Chronic) Aortic stenosis (Chronic) Moderate to severe with valve area 1.1 on cardiac catheterization in 2013 Diabetes mellitus type II (Chronic) Pulmonary hypertension (Chronic) With PA pressures 55 by cardiac catheterization Hypertension (Chronic) HLD (hyperlipidemia) (Chronic) 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 There is no major interval change. Operations: None Procedures: None Summary of Care Provided: Hospital course: The patient is a 68 year old F with complicate a past medical history as above who presented to the emergency room with complaints of worsening shortness of breath, episode of confusion at home. She was feeling more short of breath and took an extra dose of sublingual morphine. After this she became unresponsive and was brought to the ER. The patient was on hospice given her multiple end-stage respiratory issues however she revoked this to come to the hospital. She stated that she wanted to be full code while here, and insisted that she is only on hospice so that she has access to better medications not available through palliative care. She uses 4-6 L of oxygen at home and BiPAP at night, an ABG was obtained and she was hypercapnic and hypoxic. She was placed on BiPAP. She is felt to have an acute COPD exacerbation and was given IV Solu-Medrol. She did have an elevated white count admission which may have been secondary to home Dexamethasone use, she was given Levaquin to cover for any underlying infectious process. There was no infiltrates noted on chest x-ray. She had no fever. She was admitted the PCU continued on BiPAP, Levaquin, aerosols, IV steroids. She responded well and was feeling significantly better the next day. Her sublingual morphine was started and she remained stable. She was weaned down to her normal oxygen level at rest and with exertion. She was kept one more night for further monitoring as she did not feel back to her normal self. The following morning she felt stable for discharge, we were agreeable to discharging her home with a steroid taper, and to complete 2 more doses of Levaquin. She will return home in stable condition on hospice. This patient was seen by Shemar Butcher PA-C under the supervision of Doctor Mitchell. [] - Physical Exam General: Alert, Oriented x3, Cooperative HEENT: Atraumatic, PERRLA, EOMI, Normocephalic Neck: Supple, No JVD, Negative Carotid Bruits Lungs: Diminished, Rales Cardiovascular: Regular rate, No murmurs Abdomen: Bowel Sounds Present, Soft, Non Tender Extremities: No edema, Capillary Refill Less than 3 Seconds Skin: No rashes, No breakdown Musculoskeletal: No Tenderness to Palpation of Joints or Extremities Neurological: Cranial nerves II-XII grossly intact Psych/Mental Status: Normal Affect, Appropriate, Alert and oriented to time, place, person, mood and affect Vital Signs Temp Pulse Resp BP Pulse Ox 97.8 F 88 18 125/58 H 97 06/22/18 08:47 06/22/18 10:59 06/22/18 08:47 06/22/18 08:47 06/22/18 08:47 Oxygen Flow Rate (L/min) 4 Oxygen Delivery Method Nasal Cannula Weight: 259 lb 0.69 oz Body Mass Index (BMI) 46.3 Finger Stick Blood Glucose 262 Intake and Output for Last 24 Hours 06/20/18 06/21/18 06/22/18 23:59 23:59 23:59 Intake Total 2700 / 2700 550 / 550 Output Total 7200 / 7200 1525 / 1525 Balance -4500 / -4500 -975 / -975 Microbiology Past 72 Hours 06/21/18 04:15 Influenza Types A,B Direct FA ([facility]) - Final Mucosa - Nose Laboratory Tests Past 24 Hrs 06/22/18 05:35 Sodium 134 L Potassium 4.4 Chloride 85 L Carbon Dioxide 40.0 H Anion Gap 9 BUN 52 H Creatinine 1.28 H Estim Creat Clear Calc 33.83 Est GFR (MDRD) Af Amer 53 L Est GFR (MDRD) Non-Af 44 L BUN/Creatinine Ratio 40.6 H Glucose 340 H Calcium 9.5 POC Glucose 06/22/18 06/22/18 06/21/18 11:07 07:04 20:55 POC Glucose 410 H 376 H 406 H 06/21/18 16:16 POC Glucose 397 H Discharge Diet: No Restrictions - As directed by hospice Discharge Activity: - - as directed by hospice Home Medications: Medications to take at Discharge Metformin HCl [Glucophage] 1,000 mg PO BIDCM 01/15/14 Simvastatin [Zocor] 20 mg PO QHS 01/15/14 Escitalopram Oxalate [Lexapro] 10 mg PO DAILY 06/29/15 traZODone [Desyrel] 100 mg PO QHS PRN PRN 06/29/15 Budesonide/Formoterol Fumarate [Symbicort 160-4.5 Mcg Inhaler] 2 puff IH BID 03/27/17 Fluticasone 0.05% [Flonase Nasal [place]] 1 spray NASAL BID PRN 04/24/17 Acetaminophen [Tylenol Tablet] 650 mg PO Q6H PRN PRN tab 06/10/17 ferrous sulfate 325 mg (65 mg iron) tablet 325 mg PO TID tab 09/09/17 Albuterol Sulfate [Ventolin Hfa] 1 - 2 puff INHALATION PRN PRN 01/02/18 potassium chloride ER 20 mEq tablet,extended release(part/cryst) 20 meq PO DAILY 90 Days #90 tab 02/17/18 Ipratropium/Albuterol Sulfate [Duoneb] 3 ml INHALATION Q4H PRN 04/01/18 Torsemide [Demadex] 100 mg PO DAILY 04/01/18 lorazepam 0.5 mg tablet 0.5 mg PO DAILY PRN 5 Days #5 tab 06/03/18 morphine concentrate 100 mg/5 mL (20 mg/mL) oral solution 5 mg SUBLINGUAL 7 Days ml 06/03/18 Aspirin [Aspirin, Baby] 81 mg PO DAILY@0800 06/20/18 Metolazone 2.5 mg PO BID 06/20/18 Metoprolol Tartrate [Lopressor (beta lorena)] 50 mg PO BID 06/20/18 Dexamethasone [Decadron] 4 mg PO DAILY 14 Days #14 tab 06/22/18 Prednisone 10 mg PO UD #30 tab 06/22/18 levoFLOXacin tablet [Levaquin tablet] 750 mg PO Q48H #2 tab 06/22/18 Following Prescrptions Were Given to Patient: levoFLOXacin tablet [Levaquin tablet] 750 mg PO Q48H #2 tab Prednisone 10 mg PO UD #30 tab Primary Care Physician: Vic Chen MD [Primary Care Provider] - Please follow up with your Primary Care Physician in: 1-2 weeks Please Follow Up With: Hospice When: As directed Disposition: Home with Hospice Minutes spent on discharge:: 35 Patient Condition:: Stable Medical Necessity - Tobacco Use Smoking Status: Current every day smoker Tobacco Use: Cigarettes Meaningful Use Info Meaningful Use Diagnoses (Choose all that apply): None applicable <Renaldo Medrano - Last Filed: 06/22/18 15:47> Discharge Date and Diagnosis - Secondary Discharge Diagnosis Chronic Problems (Last Reviewed 06/21/18 @ 04:30 by Edson Mooney MD) COPD with acute exacerbation (Chronic) Respiratory failure (Chronic) Depression (Chronic) Morbid obesity (Chronic) Aortic valve stenosis (Chronic) Pulmonary hypertension (Chronic) CKD stage 3 secondary to diabetes (Chronic) Chronic diastolic (congestive) heart failure (Chronic) Cerebral infarction, unspecified (Chronic) Palpitations (Chronic) Anxiety (Chronic) Left atrial enlargement (Chronic) Hypersomnia (Chronic) Anemia (Chronic) Carotid artery stenosis (Chronic) Chronic hypoxemic respiratory failure (Chronic) Pulmonary fibrosis (Chronic) 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 3 severe COPD by GOLD classification (Chronic) Aortic stenosis (Chronic) Moderate to severe with valve area 1.1 on cardiac catheterization in 2014 Diabetes mellitus type II (Chronic) Pulmonary hypertension (Chronic) With PA pressures 55 by cardiac catheterization Hypertension (Chronic) HLD (hyperlipidemia) (Chronic) 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 I have independently interviewed and examined the patient and reviewed pertinent history, examination findings, laboratory and plan of management. I have reviewed the note and agree with the documented findings with the few additional points. In brief, patient is admitted for acute on chronic combined respiratory failure secondary to acute COPD exacerbation, severe aortic stenosis, pulmonary hypertension and pulmonary fibrosis and morphine sulfate overdose. Patient has been on home hospice before but she revoked now. Patient had multiple recurrent admission for respiratory failure in the past. She had brief episode of decreased responsiveness or unresponsiveness secondary to extra dose of morphine but has recovered now. She has BiPAP at home along with nebulization equipment and oxygen. Discharge medication reconciliation done. Discharge follow-up instructions completed. Discharge process discussed with the patient and her near the bedside and all questions were answered to patient's satisfaction.Discussed with the high risk for intubation and difficult extubation and further complications including prolonged ventilation and possible tracheostomy. Follow-up with the home hospice service?palliative service. Total time spent, exact 35 minutes on discharge meds reconciliation, examination, review of imaging and blood test and discussion with the patient on follow-up instructions. I have discussed my assessment with Shemar LINDER and orders have been reviewed. Objective: General: Alert, Oriented x3, Cooperative HEENT: Atraumatic, PERRLA, EOMI, Normocephalic Neck: Supple, No JVD, Negative Carotid Bruits Lungs: Severely diminished air entry secondary to morbid obesity. No crepitations/rhonchi. Cardiovascular: Regular rate, Regular Rhythm, Normal S1, Normal S2, Murmur Abdomen: Bowel Sounds Present, Soft, Non Tender Extremities: Capillary Refill Less than 3 Seconds, Edema - 2+ pitting edema BLE Chronic venous changes with the stasis dermatitis Skin: No rashes, No breakdown Musculoskeletal: No Tenderness to Palpation of Joints or Extremities, Arthritic Changes Neurological: Cranial nerves II-XII grossly intact Psych/Mental Status: Normal Affect, Appropriate - Physical Exam Vital Signs Temp Pulse Resp BP Pulse Ox 97.8 F 88 18 125/58 H 97 06/22/18 08:47 06/22/18 10:59 06/22/18 08:47 06/22/18 08:47 06/22/18 08:47 Oxygen Flow Rate (L/min) 4 Oxygen Delivery Method Nasal Cannula Weight: 259 lb 0.69 oz Body Mass Index (BMI) 46.3 Finger Stick Blood Glucose 262 Intake and Output for Last 24 Hours 06/20/18 06/21/18 06/22/18 23:59 23:59 23:59 Intake Total 2700 / 2700 550 / 550 Output Total 7200 / 7200 1525 / 1525 Balance -4500 / -4500 -975 / -975 Microbiology Past 72 Hours 06/21/18 04:15 Influenza Types A,B Direct FA ([facility]) - Final Mucosa - Nose Laboratory Tests Past 24 Hrs 06/22/18 05:35 Sodium 134 L Potassium 4.4 Chloride 85 L Carbon Dioxide 40.0 H Anion Gap 9 BUN 52 H Creatinine 1.28 H Estim Creat Clear Calc 33.83 Est GFR (MDRD) Af Amer 53 L Est GFR (MDRD) Non-Af 44 L BUN/Creatinine Ratio 40.6 H Glucose 340 H Calcium 9.5 POC Glucose 06/22/18 06/22/18 06/21/18 11:07 07:04 20:55 POC Glucose 410 H 376 H 406 H 06/21/18 16:16 POC Glucose 397 H Code Visit Inpatient E&M: 62116 Disch Hosp
== END 2018-06-22 11:54 | disposition home or self-care (01) | DRG 917 ==
LOC: ED 21:04 → PCU 21:58
PROVIDERS: Physician Assistant; Admitting Provider Hospitalist; Emergency Provider Emergency Medicine; Family Provider Family Medicine; PCP Family Medicine; Visit Provider Internal Medicine
DX: T40.2X1A Poisoning by other opioids, accidental (unintentional), initial encounter (principal); J96.21 Acute and chronic respiratory failure with hypoxia; J96.22 Acute and chronic respiratory failure with hypercapnia; I13.0 Hypertensive heart and chronic kidney disease with heart failure and stage 1 through stage 4 chronic kidney disease, or unspecified chronic kidney disease; I50.32 Chronic diastolic (congestive) heart failure; Z68.42 Body mass index [BMI] 45.0-49.9, adult; J44.1 Chronic obstructive pulmonary disease with (acute) exacerbation; N18.3 Chronic kidney disease, stage 3 (moderate); E11.22 Type 2 diabetes mellitus with diabetic chronic kidney disease; E66.01 Morbid (severe) obesity due to excess calories; I27.20 Pulmonary hypertension, unspecified; E78.5 Hyperlipidemia, unspecified; Z99.81 Dependence on supplemental oxygen; D50.9 Iron deficiency anemia, unspecified; F41.9 Anxiety disorder, unspecified; F32.9 Major depressive disorder, single episode, unspecified; J84.10 Pulmonary fibrosis, unspecified; I35.0 Nonrheumatic aortic (valve) stenosis; F17.210 Nicotine dependence, cigarettes, uncomplicated; Z86.73 Personal history of transient ischemic attack (TIA), and cerebral infarction without residual deficits
CPT/HCPCS: 36415; 36600; 71045; 80048; 82803; 82962; 83605; 84484; 85025; 87040; 87804; 93005; 94002; 94003; 94640; 97162; 97166; 99285; 99406; J7030; A4216

== ENCOUNTER → 2018-09-08 | Outpatient (CLI) | payer MEDICARE, OTHER, SELFPAY ==
[2018-09-08 13:44] VITALS: BMI 44.2
[2018-09-08 16:11] LABS: Anion Gap 6 (5-15); BUN 57 mg/dL (7-18); BUN/Creat Ratio 42.5 RATIO (10-20); Calcium,Total 8.8 mg/dL (8.5-10.1); Chloride 80 mmol/L (98-107); Creatinine, Serum 1.34 mg/dL (0.55-1.02); EST Glomerular Filtration Rate 42 mL/min (>60); Est Glom Filt Rate - Afr Amer 50 mL/min (>60); Glucose 448 mg/dL (74-106); Potassium 3.2 mmol/L (3.5-5.1); Sodium Level 123 mmol/L (136-145)
== END | disposition home or self-care (01) ==
LOC: LAB 14:44
PROVIDERS: Family Provider Family Medicine; PCP Family Medicine; Referring Provider Internal Medicine Cardiovascular Disease; Visit Provider Internal Medicine Cardiovascular Disease
DX: I50.32 Chronic diastolic (congestive) heart failure (principal)
CPT/HCPCS: 36415; 80048

== ENCOUNTER → 2018-09-17 | Outpatient (CLI) | payer MEDICARE, OTHER, SELFPAY ==
[2018-09-08 13:44] VITALS: BMI 44.2
[2018-09-17 14:00] LABS: Anion Gap 12 (5-15); BUN 77 mg/dL (7-18); Calcium,Total 8.4 mg/dL (8.5-10.1); Chloride 77 mmol/L (98-107); Creatinine, Serum 1.75 mg/dL (0.55-1.02); EST Glomerular Filtration Rate 31 mL/min (>60); Est Glom Filt Rate - Afr Amer 37 mL/min (>60); Glucose 411 mg/dL (74-106); Potassium 3.3 mmol/L (3.5-5.1); Sodium Level 129 mmol/L (136-145)
== END | disposition home or self-care (01) ==
LOC: LABSPEC 13:21
PROVIDERS: Family Provider Family Medicine; PCP Family Medicine; Referring Provider Internal Medicine Cardiovascular Disease; Visit Provider Internal Medicine Cardiovascular Disease
DX: I50.32 Chronic diastolic (congestive) heart failure (principal); E87.6 Hypokalemia
CPT/HCPCS: 80048

== ENCOUNTER 2018-10-18 14:28 | Inpatient (IN) | payer MEDICARE, OTHER, SELFPAY ==
[2018-09-08 13:44] VITALS: BMI 44.2
[2018-10-18] VITALS (14 sets, daily range): BP systolic 98–124; BP diastolic 39–57; PULSE 54–110; RESP 16–22; TEMP 36.6–37.1; O2SAT 99–100; BMI 46.5; BMI 45.8; BMI 46.6
--- NOTE | 2018-10-18 15:10 | RAD_ITS ---
STUDY: X-RAY CHEST REASON FOR EXAM: Female, 68 years old. Shortness of breath COPD TECHNIQUE: Single AP portable view of the chest. COMPARISON: 06/20/2018 chest x-ray, April 01, 2018 FINDINGS: There is slightly greater linear density within the lingula and middle lobe. There is no demonstrated pleural abnormality. There is mild cardiac enlargement. Normal mediastinum and deepthi. Normal visualized pulmonary arteries. Normal visualized aortic arch and descending thoracic aorta. Normal visualized thoracic spine. Normal visualized ribs, clavicles, and shoulders. There is no demonstrated abnormality of the visualized soft tissue structures of the upper abdomen. RAD/Chest 1 View (Portable) IMPRESSION: Middle lobe and lingular atelectasis. Otherwise relatively stable lung markings. Electronically Signed: Dipti Aguirre MD at 15:49 EDT Tel , Service support ,
--- NOTE | 2018-10-18 15:10 | EKG12_ITS ---
Test Reason : ABNORMAL LABS Blood Pressure : / mmHG Vent. Rate : 106 BPM Atrial Rate : 106 BPM P-R Int : 136 ms QRS Dur : 142 ms QT Int : 378 ms P-R-T Axes : 065 022 013 degrees QTc Int : 502 ms Sinus tachycardia Right bundle branch block Abnormal ECG Confirmed by HARMAN GAMBOA, DEVIN ([id number]), publications editor PENG GLEZ ([id number]) on 10/22/2018 2:26:20 PM Referred By: Vivek Li Confirmed By:DEVIN HAMMER MD
--- NOTE | 2018-10-18 15:11 | ED.DCSUM_ITS ---
- ER Visit Summary Date of Service: 10/18/18 Chief Complaint: Shortness of breath, weakness History of Present Illness: The patient is a 68 F presenting with shortness of breath and weakness. Patient was discharged from inpatient hospice today. She has had difficulty getting around her house today. She was unable to get out of the bathroom and her was unable to help her. She revoked her hospice in order to come to the hospital. Her states he is not happy with the hospice care. She has a living well. She does not want heroic measures or intubation. She states overall she just does not feel well. Denies chest pain. Denies fever. Physical Examination: Vitals are stable. Patient is afebrile. Alert no acute distress. 100% on 6 L. HEENT exam is unremarkable. Neck is supple. Lungs are diminished bilaterally. Heart is regular rate and rhythm. Abdomen is soft nontender nondistended. Extremities symmetric edema, chronic lower extremity wounds Skin is warm and dry. No focal neurologic deficit. Remainder of exam is unremarkable. Emergency Department Course and Treatment: She was given albuterol, Atrovent aerosols on arrival. EKG shows wide QRS with right bundle branch block, rate of 70. Chest x-ray shows middle lobe and lingular atelectasis. Otherwise relatively stable lung markings. CBC shows a white count of 30.0, hemoglobin 7.4, platelet 598. Chemistries show sodium 121, potassium 7.9, glucose 474, BUN 94, creatinine 1.99. Patient was given calcium, albuterol, insulin, glucose. Urinalysis shows over 100 white blood cells. Urine and blood cultures were sent. She is given Rocephin IV. Discussed with the hospitalist for admission. Disposition: Admission Impression: Hyperkalemia, leukocytosis, UTI, COPD exacerbation This note was generated with [employer] dictation software. It may contain incorrect words, spelling, and punctuation that were not noted in review of the chart prior to signing ED Disposition - Plan for ED Patient: Referrals: Vic Chen MD [Primary Care Provider] -
--- NOTE | 2018-10-18 15:15 | ED.RN ---
PT ARRIVES TO ED FROM HOME VIA EMS WITH STOOL ON BOTTOM AND LOWER EXTREMITIES. UPON ARRIVAL ATTEMPTS WERE MADE TO PLACE PT IN GOWN AND CLEAN PT. PT REFUSED TO ALLOW STAFF TO CLEAN DUE TO SOB UPON LAYING. EXPLAINED TO PT THAT SHE HAD STOOL ON HER AND THAT SHE NEEDED TO BE CLEANED. PT AGAIN ADAMANTLY REFUSED TO ALLOW STAFF TO CLEAN. STAFF LEFT ROOM UNTIL AFTER PHYSICIAN ASSESSED PT. ANOTHER ATTEMPT WAS MADE TO CLEAN PT, AGAIN EXPLAINING TO PT THAT STAFF WAS UNABLE TO ALLOW HER TO SIT IN HER STOOL. PT AGAIN REFUSED, BECAME AGITATED AND STATED THAT SHE DID NOT WANT TO FURTHER DISCUSS.
[2018-10-18] MEDS: Ipratropium/Albuterol Sulfate 3 ML AMPUL.NEB INHALATION (15:21)
[2018-10-18 15:35] LABS: Hematocrit 27.3 % (37-47); Hemoglobin 7.4 g/dL (12.0-15.0); Mean Corp Hgb Conc 27.1 g/dL (32-36); Mean Corpuscular Hgb 20.6 pg (27.0-32.0); Mean Platelet Vol. 9.3 fl (6.2-12.0); POSITIVE COUNT YES; POSITIVE DIFFERENTIAL YES; POSITIVE MORPHOLOGY YES; Platelet Count 598 K/mm3 (150-450); RBC Distribution Width CV 18.7 % (11.6-14.6); RBC Distribution Width SD 50.7 fl (35.1-43.9); Red Blood Count 3.59 M/mm3 (4.2-5.4)
[2018-10-18 15:39] LABS: Differential Indicated MANUAL DIFF
--- NOTE | 2018-10-18 15:43 | NURSING ---
LAB CALLED WITH CRITICAL VALUE. DR. SIDDIQUI NOTIFIED AT THIS TIME.
[2018-10-18 15:59] LABS: Anion Gap 9 (5-15); BUN 94 mg/dL (7-18); BUN/Creat Ratio 47.2 RATIO (10-20); Calcium,Total 8.8 mg/dL (8.5-10.1); Chloride 84 mmol/L (98-107); Creatinine, Serum 1.99 mg/dL (0.55-1.02); EST Glomerular Filtration Rate 26 mL/min (>60); Est Glom Filt Rate - Afr Amer 32 mL/min (>60); Estimated Creatinine Clearance 21.76 ml/min; Glucose 474 mg/dL (74-106); Potassium 7.9 mmol/L (3.5-5.1); Sodium Level 121 mmol/L (136-145)
[2018-10-18 16:15] LABS: Color, Urine Yellow (Yellow); Glucose, Dipstick 1000 mg/dl (Normal); Ketone-Dipstick Negative (Negative); Leukocyte Esterase-Dipstick 500 /ul (Negative); Nitrite-Dipstick Negative (Negative); Occult Blood-Urine 250 /ul (Negative); Protein-Dipstick 30 mg/dl (Negative); Urine Bilirubin Dipstick Negative (Negative); Urine Clarity Cloudy (Clear); Urine Urobilinogen Normal (Normal)
[2018-10-18 16:21] LABS: Bacteria 3+ /hpf (None Seen); Red Blood Cells-Urine 25-50 SEEN /hpf (0-5); Squamous Epithelial Cells - UA 0-5 SEEN /hpf (5-10)
[2018-10-18 16:22] LABS: White Blood Cells >100 SEEN /hpf (0-5)
[2018-10-18 16:23] LABS: Mucous, Urine 1+ /hpf (<or=2+)
[2018-10-18] MEDS: proMETHazine 25 MG/ML Syringe 6.25 MG IV (16:26)
--- NOTE | 2018-10-18 16:30 | NURSING ---
HOSPITALIST FOR DR SIDDIQUI
--- NOTE | 2018-10-18 16:34 | NURSING ---
PCU OLEGHE HYPERKALEMIA, UTI, COPD EXAC
[2018-10-18] MEDS: Ceftriaxone 1 GM/50 ML BAG IV (16:57)
[2018-10-18 17:02] LABS: Absolute Neutrophil Count 25.2 X10^3/uL (2.0-7.7)
[2018-10-18 17:03] LABS: Differential Comment SCANNED; Lymphocyte 3 % (19-41); Metamyelocyte 3 % (0-1); Monocyte 4 % (0-10); Myelocyte 6 (0-0); Neutrophil-Segmented 84 % (47-70); Nucleated Red Bld Cells,Manual 2 % (0-5); Total Cells Counted 100 (MANUAL DIFF)
[2018-10-18 17:05] LABS: Anisocytosis 3+; Hypochromasia 1+; Microcytosis 1+; Polychromasia 1+; Tear Drop Cell RARE
[2018-10-18 17:07] LABS: Stomatocyte RARE
[2018-10-18 17:08] LABS: Platelet Estimate SLT INC (ADEQ)
[2018-10-18 17:09] LABS: Platelet Morphology LARGE
[2018-10-18 17:25] LABS: Bedside Glucose 478 mg/dL (70-110)
--- NOTE | 2018-10-18 17:25 | ED.RN ---
REMOVED ARCE CATHETER PER DR. BOSCH.
--- NOTE | 2018-10-18 17:46 | PCM.HP.STD ---
Problem List (1) Acute kidney injury superimposed on chronic kidney disease Status: Chronic (2) Iron deficiency anemia due to chronic blood loss Status: Chronic (3) Complicated UTI (urinary tract infection) Status: Acute (4) Severe hyperglycemia due to diabetes mellitus Status: Acute (5) Hyperkalemia, diminished renal excretion Status: Acute (6) Physical debility Status: Acute (7) Generalized weakness Status: Acute (8) Recurrent falls Status: Acute History of Present Illness Date of Admission: 10/18/18 Chief Complaint: Weakness and shortness of breath x 2 weeks duration The patient is a 68 year old F with multiple comorbidities including aortic stenosis, chronic diastolic congestive heart failure, chronic kidney disease, morbid obesity, type 2 diabetes, COPD, pulmonary fibrosis, pulmonary hypertension, debility and chronic respiratory failure hypoxia and on home oxygen. Also noticed that patient is in and out of hospice based on her perceived needs at the time. Long discussion had with patient about this and about the confusion it presents to caregivers. Patient was in hospice up until this afternoon when she presented to our emergency room at which time it was once again revoked. She presents with 2-week history of worsening weakness and shortness of breath. She denies any chest pain, dizziness or lightheadedness. She denies any palpitations. She has chronic lower extremity swelling which she states is actually quite improved at this time. Patient has orthopnea which is chronic. She was noted to be hyperkalemic with potassium of 7.9 and has been given a potassium depleting cocktail as well as intravenous calcium. Was also noted to have an abnormal urinalysis suggestive of infection. Hemoglobin noted to be low at 7.4 [] Past Medical History Past Medical History (Chronic Problems): Chronic Problems (Last Updated 09/02/18 @ 14:[address]) Acute kidney injury superimposed on chronic kidney disease (Chronic) 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) Type 2 diabetes mellitus (Chronic) Nonrheumatic aortic (valve) stenosis (Chronic) Pure hypercholesterolemia (Chronic) Essential hypertension (Chronic) COPD with acute exacerbation (Chronic) Respiratory failure (Chronic) Depression (Chronic) Morbid obesity (Chronic) Pulmonary hypertension (Chronic) CKD stage 3 secondary to diabetes (Chronic) Chronic diastolic (congestive) heart failure (Chronic) Cerebral infarction, unspecified (Chronic) Palpitations (Chronic) Anxiety (Chronic) Left atrial enlargement (Chronic) Hypersomnia (Chronic) Anemia (Chronic) Carotid artery stenosis (Chronic) Chronic hypoxemic respiratory failure (Chronic) Pulmonary fibrosis (Chronic) 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 3 severe COPD by GOLD classification (Chronic) Pulmonary hypertension (Chronic) With PA pressures 55 by cardiac catheterization 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) Medical History: Medical History (Last Updated 09/02/18 @ 14:[address]) Type 2 diabetes mellitus (Chronic) E11.9 Nonrheumatic aortic (valve) stenosis (Chronic) I35.0 Pure hypercholesterolemia (Chronic) E78.00 Essential hypertension (Chronic) I10 Respiratory failure (Chronic) J96.90 Depression (Chronic) F32.9 Morbid obesity (Chronic) E66.01 COPD exacerbation (Acute) J44.1 Pulmonary hypertension (Chronic) I27.20 Diastolic CHF, acute on chronic (Acute) I50.33 CKD stage 3 secondary to diabetes (Chronic) E11.22, N18.3 Chronic diastolic (congestive) heart failure (Chronic) I50.32 Cerebral infarction, unspecified (Chronic) I63.9 Palpitations (Chronic) R00.2 Anxiety (Chronic) F41.9 Left atrial enlargement (Chronic) I51.7 Hypersomnia (Chronic) G47.10 Anemia (Chronic) D64.9 Carotid artery stenosis (Chronic) I65.29 Chronic hypoxemic respiratory failure (Chronic) J96.11 Pulmonary fibrosis (Chronic) J84.10 Tobacco dependence in remission (Chronic) F17.201 Stage 3 severe COPD by GOLD classification (Chronic) J44.9 Pulmonary hypertension (Chronic) With PA pressures 55 by cardiac catheterization 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 Blackmon in 2011, suspected AV malformations Acute on chronic anemia (Inactive) Aortic stenosis (Inactive) Moderate to severe with valve area 1.1 on cardiac catheterization in 2013 Aortic valve stenosis (Inactive) I35.0 HLD (hyperlipidemia) (Inactive) E78.5 Hypertension (Inactive) I10 Allergies No Known Allergies Allergy (Verified 09/08/18 13:48) Home Medications: Ambulatory Orders Medication Instructions Recorded Simvastatin [Zocor] 20 mg PO QHS 01/15/14 Escitalopram Oxalate [Lexapro] 10 mg PO DAILY 06/29/15 traZODone [Desyrel] 100 mg PO QHS PRN PRN 06/29/15 Budesonide/Formoterol Fumarate 2 puff IH BID 03/27/17 [Symbicort 160-4.5 Mcg Inhaler] Fluticasone 0.05% [Flonase Nasal 1 spray NASAL BID PRN 04/24/17 [place]] Acetaminophen [Tylenol Tablet] 650 mg PO Q6H PRN PRN tab 06/10/17 Albuterol Sulfate [Ventolin Hfa] 1 - 2 puff INHALATION PRN PRN 01/02/18 Ipratropium/Albuterol Sulfate 3 ml INHALATION Q4H PRN 04/01/18 [Duoneb] lorazepam 0.5 mg tablet 0.5 mg PO DAILY PRN 5 Days #5 tab 06/03/18 morphine concentrate 100 mg/5 mL 5 mg SUBLINGUAL 7 Days ml 06/03/18 (20 mg/mL) oral solution Metoprolol Tartrate [Lopressor 25 mg PO BID 06/20/18 (beta lorena)] metolazone 2.5 mg tablet 2.5 mg PO .COMPLEX 07/03/18 glipizide 5 mg tablet 5 mg PO BID 09/08/18 insulin glargine (U-100) 100 20 unit SC DAILY 09/08/18 unit/mL (3 mL) subcutaneous pen omeprazole magnesium 20 mg 20 mg PO DAILY 09/08/18 tablet,delayed release promethazine 25 mg tablet 25 mg PO Q6H 09/08/18 sennosides 8.6 mg tablet 8.6 mg PO BID 09/08/18 potassium chloride ER 20 mEq 40 meq PO DAILY 90 Days #180 tab 09/17/18 tablet,extended release(part/cryst) Dexamethasone [Decadron] 2 mg PO DAILY 10/18/18 Torsemide 20 mg PO BID 10/18/18 Surgical History: Surgical History (Last Reviewed 06/21/18 @ 04:30 by Edson Mooney MD) History of hernia repair Z98.890, Z87.19 History of hysterectomy Z90.710 History of left heart catheterization Z98.890 X 2 Surgical History: herniorrhaphy, hysterectomy Psychiatric History: Anxiety, Depression PROGRESSIVE CARE NURSE History: No pertinent PROGRESSIVE CARE NURSE history Smoking Status: Former smoker - *Family History Paternal Family History: Family History (Last Reviewed 06/21/18 @ 04:30 by Edson Mooney MD) Mother Heart disease Father CAD (coronary artery disease) Hypertension Brother Hypertension History Items: Heart Disease Maternal Family History: Family History (Last Reviewed 06/21/18 @ 04:30 by Edson Mooney MD) Mother Heart disease Father CAD (coronary artery disease) Hypertension Brother Hypertension History Items: Heart Disease Review of Systems Constitutional: Reports: Weakness, Fatigue. Denies: Anorexia, Chills, Fever Eyes: Denies: Pain Cardiovascular: Reports: Orthopnea. Denies: Chest Pain, Syncope Gastrointestinal: Denies: Abdominal Pain Skin: Reports: Wounds - On feet and legs Neurological: Reports: Balance problems Psychiatric: Reports: Anxiety Hematologic/ Lymphatic: Reports: Easy Bruising, [place] Comment: All other systems were reviewed and essentially negative. VTE Information - Inpt Only VTE Present on Admission: No VTE Mechan Device Prophylaxis: None VTE Pharm Prophylaxis ordered?: Yes Patient Problems: Active and Suspected Problems (Last Updated 09/02/18 @ 14:[address]) Complicated UTI (urinary tract infection) (Acute) Severe hyperglycemia due to diabetes mellitus (Acute) Hyperkalemia, diminished renal excretion (Acute) Physical debility (Acute) Generalized weakness (Acute) Recurrent falls (Acute) - Physical Exam General: Alert, Oriented x3, Cooperative, No apparent distress, Well developed, Well nourished - Chronically ill looking elderly woman who is not in severe distress and not really dyspneic at rest, she is on intranasal oxygen. HEENT: Normocephalic, - - Bilateral periorbital ecchymosis especially under the eyes Oral: Dry Mucosa Neck: Supple, No JVD, Carotid Bruits, Bilateral - These are radiating from the aortic valve Lungs: No rhonchi, No wheeze, Diminished Cardiovascular: Regular rate, Regular Rhythm, Normal S1, Normal S2, Murmur - Grade 4/6 ejection systolic murmur Abdomen: Soft, Non Tender, Non-Distended, No Hepato-splenomegaly, Obese Extremities: Edema, - - To stage II ulcers on the dorsum of left foot and stage II ulcer the martinez of the right leg Skin: Ulcer/ Wound - As noted above Musculoskeletal: Arthritic Changes Neurological: Cranial nerves II-XII grossly intact, Unsteady Gait - By history Psych/Mental Status: Normal Affect, Appropriate Vital Signs Temp Pulse Resp BP Pulse Ox 98.4 F 98 19 H 124/39 H 99 10/18/18 16:34 10/18/18 17:02 10/18/18 17:02 10/18/18 17:02 10/18/18 17:02 Oxygen Flow Rate (L/min) 6 Oxygen Delivery Method Nasal Cannula Weight: 119.3 kg Body Mass Index (BMI) 46.5 Finger Stick Blood Glucose 478 Laboratory Tests Past 24 Hrs 10/18/18 10/18/18 10/18/18 14:50 14:50 15:58 WBC 30.0 H* RBC 3.59 L Hgb 7.4 L Hct 27.3 L MCV 76.0 L MCH 20.6 L MCHC 27.1 L RDW Std Deviation 50.7 H RDW Coeff of [place] 18.7 H Plt Count 598 H MPV 9.3 Neut % (Auto) Not Reportable Absolute Neuts (auto) 25.2 H Absolute Lymphs (auto) 0.90 Total Counted 100 Neutrophils % (Manual) 84 H Lymphocytes % (Manual) 3 L Monocytes % (Manual) 4 Metamyelocytes % 3 H Myelocytes % 6 H Nucleated RBCs/100 WBC 2 Differential Comment SCANNED Diff Path Review May foll Platelet Estimate SLT INC Plt Morphology Comment LARGE Polychromasia 1+ Hypochromasia 1+ Anisocytosis 3+ Microcytosis 1+ Tear Drop Cells RARE Stomatocytes RARE Sodium 121 L Potassium 7.9 H* Chloride 84 L Carbon Dioxide 28.0 Anion Gap 9 BUN 94 H Creatinine 1.99 H Estim Creat Clear Calc 21.76 Est GFR (MDRD) Af Amer 32 L Est GFR (MDRD) Non-Af 26 L BUN/Creatinine Ratio 47.2 H Glucose 474 H* Calcium 8.8 Troponin I 0.045 Urine Color Yellow Urine Clarity Cloudy Urine pH 5.0 Ur Specific [place] 1.020 Urine Protein 30 H Urine Glucose (UA) 1000 H Urine Ketones Negative Urine Occult Blood 250 H Urine Nitrite Negative Urine Bilirubin Negative Urine Urobilinogen Normal Ur Leukocyte Esterase 500 H Urine RBC 25-50 SEEN Urine WBC >100 SEEN Ur Squamous Epith Cells 0-5 SEEN Urine Bacteria 3+ Urine Mucus 1+ POC Glucose 10/18/18 17:19 POC Glucose 478 H* Assessment/Plan All Active Problems (Last Updated 09/02/18 @ 14:[address]) Complicated UTI (urinary tract infection) (Acute) Severe hyperglycemia due to diabetes mellitus (Acute) Hyperkalemia, diminished renal excretion (Acute) Physical debility (Acute) Generalized weakness (Acute) Recurrent falls (Acute) Acute respiratory failure with hypoxia and hypercapnia (Acute) Elevated troponin I level (Acute) Hyperglycemia due to type 2 diabetes mellitus (Acute) Acute encephalopathy (Acute) COPD exacerbation (Acute) Diastolic CHF, acute on chronic (Acute) CVA (cerebral vascular accident) (Resolved) CVA (cerebral vascular accident) (Resolved) History of GI bleeding (Resolved) 1. Worsening weakness and shortness of breath. Suspect this is secondary to a combination of anemia, chronic cardiorespiratory disease and physical deconditioning. Clinically patient is not in CHF or COPD exacerbation. Will address underlying causes as enumerated below. 2. Acute kidney injury on top of chronic kidney disease stage III. Chronic kidney disease is secondary to hypertensive atherosclerosis and diabetic nephropathy most likely. Acute kidney injury secondary to dehydration and volume depletion from overdiuresis. Patient on Lasix and metolazone. Poorly controlled diabetes and glycosuria also causing osmotic diuresis and contributing to volume depletion. Will rehydrate patient gently with normal saline and will aim to improve hyperglycemia. Will check urine sodium and renal ultrasound. 3. Microcytic anemia likely secondary to iron deficiency anemia as patient has a history of this. Review of chart noted history of AVMs in the GI tract and so suspect chronic GI blood loss. We will check an FOBT. Check reticulocyte count and iron studies. Iron infusion IV and transfuse with 1 unit of packed red blood cells. 4. Complicated urinary tract infection. Patient has had a Whiteside catheter for couple of days. No indication for this other than patient being on hospice. Will discontinue Whiteside catheter. Obtain urine cultures and start empirically on IV antibiotics. 5. Hyperkalemia. Secondary to acute kidney injury and use of potassium supplements. She has been treated with a potassium depleting cocktail and IV calcium gluconate administered as well for cardiac myocyte membrane stabilization. Give Kayexalate as well and repeat as necessary. Will discontinue potassium supplements. Keep patient on telemetry. EKGs serially. Monitor serum potassium 6. Chronic debility, functional decline and recurrent falls. Patient will need PT/OT for muscle strengthening and gait training exercises. Recommend discharge to nursing home facility for rehab at the end of her hospital stay. 7. Pulmonary hypertension. Most likely a combination of WHO group 1, 2 and 3. Continue oxygen supplementation. 8. Moderately severe aortic stenosis. Medical management for now. 9. Chronic diastolic congestive heart failure. As stated in #1 above, patient is not in exacerbation. Holding diuretics for now until volume repleted. 10. Morbid obesity with likely TRI and OHS and all of these contributing to pulmonary hypertension. Encouraged increasing physical activity and other lifestyle modifications. 11. Poorly controlled type 2 diabetes. Likely contributing to her generalized weakness. Patient currently hyperglycemic with blood sugar greater than 400. Will consult diabetes solutions specialist and manager epic for counseling. Patient is on chronic steroids with dexamethasone for uncertain indication and is likely contributing to the hyperglycemia and poor diabetic control. Will increase basal and mealtime insulin. 12. Hyponatremia. Secondary to a combination of pseudohyponatremia from hyperglycemia, natriuresis from loop diuretics and appropriate ADH secretion from hypovolemia. Will treat with normal saline IV fluids, check urine sodium and urine and serum osmolality. Code Visit Inpatient E&M: 00339 Init Hosp L3
--- NOTE | 2018-10-18 17:47 | US_ITS ---
STUDY: RENAL ULTRASOUND - COMPLETE REASON FOR EXAM: Female, 68 years old. Acute renal failure. TECHNIQUE: Ultrasound evaluation of the kidneys was performed with real-time and static ward-scale imaging. COMPARISON: None. FINDINGS: RIGHT KIDNEY: Normal location of the right kidney, which is normal in size. The right kidney measures 13.0 cm x 6.2 cm x 6.9 cm. There is mild diffuse thinning of the renal cortex. The renal cortex measures 1.0 cm. There is no right renal mass or cyst. There are no right renal calculi. There is no right hydronephrosis. DISTAL RIGHT URETER: There is non-visualization of the distal right ureter. There is no demonstrated right ureterovesical junction calculus. There is a visualized right ureteral jet. LEFT KIDNEY: Normal location of the left kidney, which is normal in size. The left kidney measures 12.1 cm x 6.6 cm x 5.4 cm. There is a normal cortex of the left kidney. The renal cortex measures 1.5 cm. There is no left renal mass or cyst. There are no left renal calculi. There is no left hydronephrosis. Incidental note is made of gallstones and fatty infiltration of the liver. BLADDER: The distended urinary bladder has a volume of 181 ml. There is a normal wall thickness of the distended urinary bladder. There is no demonstrated mass within the urinary bladder. There are no demonstrated bladder calculi. US/Kidney and Bladder IMPRESSION: Mild cortical thinning of the right renal cortex. Fenestration of the liver. Gallstones. Electronically Signed: Jonah Conner, at 12:37 EDT , Service support ,
--- NOTE | 2018-10-18 17:47 | EKG12_ITS ---
Test Reason : CHF Blood Pressure : / mmHG Vent. Rate : 056 BPM Atrial Rate : 056 BPM P-R Int : 154 ms QRS Dur : 152 ms QT Int : 458 ms P-R-T Axes : 066 021 024 degrees QTc Int : 441 ms Sinus bradycardia Right bundle branch block Abnormal ECG Confirmed by HARMAN GAMBOA, DEVIN ([id number]), sound editor PENG GLEZ ([id number]) on 10/22/2018 2:26:53 PM Referred By: Vivek Li Confirmed By:DEVIN HAMMER MD
[2018-10-18 18:21] LABS: Osmolality, Serum 318 mOsm/KG (280-301)
[2018-10-18 18:41] LABS: Bedside Glucose 419 mg/dL (70-110)
[2018-10-18] MEDS: 0.9% Normal Saline 1,000 ML 100 ML IV (18:47)
[2018-10-18] MEDS: Sodium Polystyrene Sulfonate 15 GM/60 ML UDC 30 GM PO ×2 (18:47→23:10)
[2018-10-18] MEDS: Insulin Lispro 100 UNIT/ML INSULN.PEN 10 UNIT SC (18:48)
[2018-10-18 19:39] LABS: Potassium 7.3 mmol/L (3.5-5.1)
[2018-10-18] MEDS: Sodium Bicarbonate 8.4% 50 ML Syringe 50 MEQ IV (20:20)
[2018-10-18] MEDS: Heparin Injection (Vial) 5,000 UNIT/ML VIAL 5000 UNIT SC (21:24)
[2018-10-18 21:25] LABS: Protein:Creat Ratio 495 mg/g CRE (0-200); Urine Sodium 10 mmol/L (Not Establ.)
[2018-10-18] MEDS: Insulin Lispro 100 UNIT/ML INSULN.PEN SC (21:26)
[2018-10-18] MEDS: Senna/Docusate Sodium 1 Tablet 2 TABLET PO (21:28)
[2018-10-18] MEDS: Metoprolol Tartrate 25 MG Tablet PO (21:28)
[2018-10-18 21:37] LABS: Urine Chloride < 10 mmol/L (Not Establ.)
[2018-10-18 21:38] LABS: Osmolality, Urine 356 mOsm/KG
[2018-10-18 21:46] LABS: Bedside Glucose 350 mg/dL (70-110)
--- NOTE | 2018-10-18 22:04 | EKG12_ITS ---
Test Reason : SOB Blood Pressure : / mmHG Vent. Rate : 070 BPM Atrial Rate : 214 BPM P-R Int : 000 ms QRS Dur : 172 ms QT Int : 470 ms P-R-T Axes : 000 046 016 degrees QTc Int : 507 ms Atrial fibrillation with controlled ventricular response Right bundle branch block Abnormal ECG Reconfirmed by EJ PETERSON ([id number]), website/blog editor MONA NGO ([id number] on 10/22/2018 3:32:58 PM Referred By: Vivek Li Confirmed By:EJ PETERSON
[2018-10-18] MEDS: 0.9% Normal Saline 1,000 ML 999 ML IV (22:53)
[2018-10-18] MEDS: Dextrose 50%-Water 25 GM/50 ML DISP.SYRIN IV (22:54)
[2018-10-18] MEDS: Insulin Lispro 100 UNIT/ML INSULN.PEN 8 UNIT SC (23:08)
[2018-10-18 23:21] LABS: Bedside Glucose 346 mg/dL (70-110)
[2018-10-19] VITALS (22 sets, daily range): BP systolic 104–125; BP diastolic 40–68; PULSE 92–108; RESP 15–22; TEMP 36.6–37.3; O2SAT 96–100
[2018-10-19] MEDS: 0.9% Normal Saline 1,000 ML 100 ML IV (00:02)
[2018-10-19 00:18] LABS: Hematocrit 24.4 % (37-47); Hemoglobin 6.5 g/dL (12.0-15.0); Mean Corp Hgb Conc 26.6 g/dL (32-36); Mean Corpuscular Hgb 20.4 pg (27.0-32.0); Mean Corpuscular Volume 76.5 fL (81-99); Mean Platelet Vol. 8.8 fl (6.2-12.0); POSITIVE COUNT YES; POSITIVE MORPHOLOGY YES; Platelet Count 432 K/mm3 (150-450); RBC Distribution Width CV 18.7 % (11.6-14.6); RBC Distribution Width SD 51.7 fl (35.1-43.9); Red Blood Count 3.19 M/mm3 (4.2-5.4); White Blood Count 21.5 K/mm3 (4.4-11.0)
[2018-10-19 00:22] LABS: Differential Indicated MANUAL DIFF
[2018-10-19 00:42] LABS: Anion Gap 10 (5-15); BUN 89 mg/dL (7-18); BUN/Creat Ratio 46.6 RATIO (10-20); Calcium,Total 9.5 mg/dL (8.5-10.1); Chloride 90 mmol/L (98-107); Creatinine, Serum 1.91 mg/dL (0.55-1.02); EST Glomerular Filtration Rate 28 mL/min (>60); Est Glom Filt Rate - Afr Amer 33 mL/min (>60); Estimated Creatinine Clearance 22.67 ml/min; Glucose 255 mg/dL (74-106); Potassium 5.6 mmol/L (3.5-5.1); Sodium Level 130 mmol/L (136-145)
[2018-10-19 01:49] LABS: Anisocytosis 1+; Hypochromasia 2+; Lymphocyte 7 % (19-41); Metamyelocyte 1 % (0-1); Monocyte 5 % (0-10); Myelocyte 1 (0-0); Neutrophil-Band 1 % (0-5); Neutrophil-Segmented 85 % (47-70); Polychromasia 1+; Total Cells Counted 100 (MANUAL DIFF)
[2018-10-19 01:50] LABS: Basophilic Stippling 1+; Microcytosis 2+; Platelet Estimate ADEQUATE (ADEQ); Platelet Morphology LARGE
[2018-10-19 01:52] LABS: Absolute Lymphocyte Count 1.51 X10^3/uL (0.83-4.51); Absolute Neutrophil Count 18.5 X10^3/uL (2.0-7.7)
[2018-10-19] MEDS: Heparin Injection (Vial) 5,000 UNIT/ML VIAL 5000 UNIT SC ×3 (05:13→23:24)
[2018-10-19 06:31] LABS: Hematocrit 26.1 % (37-47); Hemoglobin 7.2 g/dL (12.0-15.0); Mean Corp Hgb Conc 27.6 g/dL (32-36); Mean Corpuscular Hgb 21.4 pg (27.0-32.0); Mean Corpuscular Volume 77.7 fL (81-99); Mean Platelet Vol. 8.9 fl (6.2-12.0); POSITIVE COUNT YES; POSITIVE DIFFERENTIAL YES; POSITIVE MORPHOLOGY YES; Platelet Count 390 K/mm3 (150-450); RBC Distribution Width CV 18.8 % (11.6-14.6); RBC Distribution Width SD 52.8 fl (35.1-43.9); Red Blood Count 3.36 M/mm3 (4.2-5.4); Reticulocyte Count 3.74 % (0.5-1.5)
[2018-10-19 06:38] LABS: White Blood Count 19.4 K/mm3 (4.4-11.0)
[2018-10-19 06:39] LABS: Differential Indicated MANUAL DIFF
[2018-10-19 06:51] LABS: ALB/GLOB Ratio 0.9 RATIO (0.9-2.4); AST(SGOT) 10 U/L (15-37); Alanine Aminotransfer ALT/SGPT 30 U/L (13-56); Albumin, Serum 2.8 g/dL (3.2-5.0); Alkaline Phosphatase 77 U/L (45-117); Anion Gap 10 (5-15); BUN 80 mg/dL (7-18); BUN/Creat Ratio 54.8 RATIO (10-20); Calcium,Total 8.7 mg/dL (8.5-10.1); Chloride 93 mmol/L (98-107); Creatinine, Serum 1.46 mg/dL (0.55-1.02); EST Glomerular Filtration Rate 38 mL/min (>60); Est Glom Filt Rate - Afr Amer 46 mL/min (>60); Estimated Creatinine Clearance 29.66 ml/min; Ferritin 10 ng/mL (8-252); Globulin 3.1 g/dL (2.2-4.2); Glucose 121 mg/dL (74-106); Iron 16 ug/dL (50-170); Iron Binding Capacity,Total 405 ug/dL (250-450); Magnesium 2.1 mg/dL (1.6-2.6); Phosphorus 5.1 mg/dL (2.5-4.9); Potassium 4.5 mmol/L (3.5-5.1); Protein, Total 5.9 g/dL (6.4-8.2); Sodium Level 137 mmol/L (136-145); Thyroid Stim Hormone (TSH) 1.16 uIU/mL (0.358-3.74)
[2018-10-19 07:25] LABS: Eosinophil 1 % (0-5); Lymphocyte 5 % (19-41); Metamyelocyte 3 % (0-1); Monocyte 7 % (0-10); Neutrophil-Band 4 % (0-5); Neutrophil-Segmented 80 % (47-70); Nucleated Red Bld Cells,Manual 1 % (0-5); Total Cells Counted 100 (MANUAL DIFF)
[2018-10-19 07:26] LABS: Anisocytosis 1+; Hypochromasia 1+; Polychromasia 1+
[2018-10-19 07:27] LABS: Microcytosis 1+; Platelet Estimate ADEQUATE (ADEQ); Platelet Morphology LARGE
[2018-10-19 07:30] LABS: Hemoglobin A1c 10.2 % (4.2-6.3)
[2018-10-19 07:32] LABS: Absolute Lymphocyte Count 0.97 X10^3/uL (0.83-4.51); Absolute Neutrophil Count 16.3 X10^3/uL (2.0-7.7)
[2018-10-19] MEDS: Budesonide Respules 0.5 MG/2 ML AMPUL.NEB. INHALATION ×2 (07:43→19:08)
[2018-10-19] MEDS: Albuterol 2.5 MG/3 ML VIAL.NEB. INHALATION ×3 (07:44→19:08)
[2018-10-19 08:05] LABS: BNP,B-Type NATRIURETIC PEPTIDE 349.7 pg/mL (0-100)
[2018-10-19] MEDS: Escitalopram Oxalate 10 MG Tablet PO (09:07)
[2018-10-19] MEDS: Senna/Docusate Sodium 1 Tablet 2 TABLET PO ×2 (09:07→23:24)
[2018-10-19] MEDS: Metoprolol Tartrate 25 MG Tablet PO ×2 (09:09→23:23)
[2018-10-19] MEDS: Insulin Lispro 100 UNIT/ML INSULN.PEN 10 UNIT SC ×3 (09:15→17:48)
[2018-10-19] MEDS: LORazepam 0.5 MG Tablet PO (09:15)
[2018-10-19 09:36] LABS: Bedside Glucose 130 mg/dL (70-110)
--- NOTE | 2018-10-19 10:48 | PCM.PN.HOSP ---
Patient Problems: Active and Suspected Problems (Last Updated 09/02/18 @ 14:[address]) Complicated UTI (urinary tract infection) (Acute) Severe hyperglycemia due to diabetes mellitus (Acute) Hyperkalemia, diminished renal excretion (Acute) Physical debility (Acute) Generalized weakness (Acute) Recurrent falls (Acute) Subjective: Patient seen and examined. She was admitted with a complaint of worsening weakness and shortness of breath about 2 days duration. She also had lower extremity edema. On admission she was found to be hyperkalemic with potassium of 7.9 and also UA indicative of UTI. She was also noted to be anemic with hemoglobin of 7.4 on admission. She has been managed for TANJA on CKD 3, acute on chronic microcytic anemia, complicated UTI and worsening dyspnea thought to be due to chronic cardiorespiratory disease and anemia. Patient seen and examined this morning. She complained of lethargy and shortness of breath which she said was chronic. She denied any chest pain or palpitations, dizziness, diarrhea vomiting. Discussion had with patient about her going in and out of hospice. Patient stated that she was in hospice respite care was just released yesterday. She states she is in hospice on account of her shortness of breath and chronic respiratory failure due to COPD. Attempts made to clarify patient's wishes are a CODE STATUS and hospice. Patient initially stated that she now wanted to be full code but was reminded that she had been DNR CCA for a while. Patient then stated that then she would want to be DNR CCA which she had pain for some time. Vitals/I&O's: Vital Signs Temp Pulse Resp BP Pulse Ox 98.9 F 99 15 111/54 L 100 10/19/18 09:19 10/19/18 09:19 10/19/18 09:19 10/19/18 09:19 10/19/18 09:19 Oxygen Flow Rate (L/min) 5 Oxygen Delivery Method Nasal Cannula Weight: 264 lb 15.93 oz Body Mass Index (BMI) 45.8 Finger Stick Blood Glucose 478 Intake and Output for Last 24 Hours 10/17/18 10/18/18 10/19/18 23:59 23:59 23:59 Intake Total 3411 / 3411 Output Total 1250 / 1250 Balance 2161 / 2161 General: Alert, Oriented x3, Cooperative, No apparent distress, - - Morbid obesity HEENT: Atraumatic, PERRLA, EOMI, Normocephalic Oral: Moist Mucosa Neck: Supple, No JVD, Negative Carotid Bruits Lungs: - - decreased breath sounds bibasally, no wheezes or crackles. on 6L of oxygen, which is her baseline. Cardiovascular: Regular rate, Regular Rhythm, Normal S1, Normal S2, No murmurs Abdomen: Bowel Sounds Present, Soft, Non Tender, Non-Distended, No Hepato-splenomegaly Extremities: No clubbing, No cyanosis, - - bilateral LE edema and erythema. Skin: No rashes, No breakdown Musculoskeletal: No Tenderness to Palpation of Joints or Extremities Lymphatic: No Cervical, Supraclavicular, or Inguinal Adenopathy Neurological: Cranial nerves II-XII grossly intact, Neuro grossly intact, Motor Exam 5/5 strength throughout Psych/Mental Status: Normal Affect, Appropriate, Alert and oriented to time, place, person, mood and affect Laboratory Results 10/18/18 14:50: WBC 30.0 H*, RBC 3.59 L, Hgb 7.4 L, Hct 27.3 L, MCV 76.0 L, MCH 20.6 L, MCHC 27.1 L, RDW Std Deviation 50.7 H, RDW [place]eff of [place] 18.7 H, Plt Count 598 H, MPV 9.3, Neut % (Auto) Not Reportable, Absolute Neuts (auto) 25.2 H, Absolute Lymphs (auto) 0.90, Total Counted 100, Neutrophils % (Manual) 84 H, Lymphocytes % (Manual) 3 L, Monocytes % (Manual) 4, Metamyelocytes % 3 H, Myelocytes % 6 H, Nucleated RBCs/100 WBC 2, Differential Comment SCANNED, Diff Path Review May santos, Platelet Estimate T INC, Plt Morphology Comment LARGE, Polychromasia 1+, Hypochromasia 1+, Anisocytosis 3+, Microcytosis 1+, Tear Drop Cells RARE, Stomatocytes RARE 10/18/18 14:50: Sodium 121 L, Potassium 7.9 H*, Chloride 84 L, Carbon Dioxide 28.0, Anion Gap 9, BUN 94 H, Creatinine 1.99 H, Estim Creat Clear Calc 21.76, Est GFR (MDRD) Af Amer 32 L, Est GFR (MDRD) Non-Af 26 L, BUN/Creatinine Ratio 47.2 H, Glucose 474 H*, Calcium 8.8, Troponin I 0.045 10/18/18 14:50: Serum Osmolality 318 H 10/18/18 15:58: Urine Color Yellow, Urine Clarity Cloudy, Urine pH 5.0, Ur Specific [place] 1.020, Urine Protein 30 H, Urine Glucose (UA) 1000 H, Urine Ketones Negative, Urine Occult Blood 250 H, Urine Nitrite Negative, Urine Bilirubin Negative, Urine Urobilinogen Normal, Ur Leukocyte Esterase 500 H, Urine RBC 25-50 SEEN, Urine WBC >100 SEEN, Ur Squamous Epith Cells 0-5 SEEN, Urine Bacteria 3+, Urine Mucus 1+ 10/18/18 15:58: Urine Osmolality 356 10/18/18 15:58: U Random Total Protein 36.0 H, Urine Creatinine 72.70, Protein/Creatinin Ratio 495 H 10/18/18 15:58: Urine Chloride < 10 10/18/18 15:58: Ur Random Sodium 10 10/18/18 17:19: POC Glucose 478 H* 10/18/18 18:31: POC Glucose 419 H 10/18/18 19:00: Potassium 7.3 H* 10/18/18 19:00: Blood Type AB POSITIVE, Antibody Screen NEGATIVE 10/18/18 19:00: Crossmatch See Detail 10/18/18 21:21: POC Glucose 350 H 10/18/18 23:05: POC Glucose 346 H 10/19/18 00:07: Sodium 130 L, Potassium 5.6 H, Chloride 90 L, Carbon Dioxide 30.0, Anion Gap 10, BUN 89 H, Creatinine 1.91 H, Estim Creat Clear Calc 22.67, Est GFR (MDRD) Af Amer 33 L, Est GFR (MDRD) Non-Af 28 L, BUN/Creatinine Ratio 46.6 H, Glucose 255 H, Calcium 9.5 10/19/18 00:07: WBC 21.5 H, RBC 3.19 L, Hgb 6.5 L, Hct 24.4 L, MCV 76.5 L, MCH 20.4 L, MCHC 26.6 L, RDW Std Deviation 51.7 H, RDW [place]eff [place] 18.7 H, Plt Count 432, MPV 8.8, Neut % (Auto) Not Reportable, Absolute Neuts (auto) 18.5 H, Absolute Lymphs (auto) 1.51, Total Counted 100, Neutrophils % (Manual) 85 H, Band Neutrophils % 1, Lymphocytes % (Manual) 7 L, Monocytes % (Manual) 5, Metamyelocytes % 1, Myelocytes % 1 H, Diff Path Review May santos, Platelet Estimate ADEQUATE, Plt Morphology Comment LARGE, Polychromasia 1+, Hypochromasia 2+, Basophilic Stippling 1+, Anisocytosis 1+, Microcytosis 2+ 10/19/18 05:50: WBC 19.4 H, RBC 3.36 L, Hgb 7.2 L, Hct 26.1 L, MCV 77.7 L, MCH 21.4 L, MCHC 27.6 L, RDW Std Deviation 52.8 H, RDW [place]eff [place] 18.8 H, Plt Count 390, MPV 8.9, Neut % (Auto) Not Reportable, Absolute Neuts (auto) 16.3 H, Absolute Lymphs (auto) 0.97, Total Counted 100, Neutrophils % (Manual) 80 H, Band Neutrophils % 4, Lymphocytes % (Manual) 5 L, Monocytes % (Manual) 7, Eosinophils % (Manual) 1, Metamyelocytes % 3 H, Nucleated RBCs/100 WBC 1, Diff Path Review July santos, Platelet Estimate ADEQUATE, Plt Morphology Comment LARGE, Polychromasia 1+, Hypochromasia 1+, Anisocytosis 1+, Microcytosis 1+, Retic Count 3.74 H, Immature Retic Fraction 41.60 H, Retic Hgb Equivalent 19.0 L 10/19/18 05:50: Sodium 137, Potassium 4.5, Chloride 93 L, Carbon Dioxide 34.0 H, Anion Gap 10, BUN 80 H, Creatinine 1.46 H, Estim Creat Clear Calc 29.66, Est GFR (MDRD) Af Amer 46 L, Est GFR (MDRD) Non-Af 38 L, BUN/Creatinine Ratio 54.8 H, Glucose 121 H, Calcium 8.7, Phosphorus 5.1 H, Magnesium 2.1, Iron 16 L, TIBC 405, Iron Saturation 4.0 L, Ferritin 10, Total Bilirubin 0.40, AST 10 L, ALT 30, Alkaline Phosphatase 77, Total Protein 5.9 L, Albumin 2.8 L, Globulin 3.1, Albumin/Globulin Ratio 0.9, TSH 1.16 08/04/19 05:50: Hemoglobin A1c 10.2 H 10/19/18 05:50: B-Natriuretic Peptide 349.7 H 10/19/18 05:50: Vitamin B12 Pending, Vitamin D 25-Hydroxy Pending 10/19/18 08:52: POC Glucose 130 H Diagnostic Data Chest X-Ray 10/18/18 15:10 IMPRESSION: Middle lobe and lingular atelectasis. Otherwise relatively stable lung markings. Electronically Signed: Dipti Aguirre MD at 15:49 EDT Tel , Service support , Current Medications Acetaminophen (Tylenol) 650 mg PO Q6H PRN PRN PRN Reason: Mild Pain (1-3)/Temp > 100.7 F Albuterol Sulfate (Ventolin Aerosols) 2.5 mg INHALATION Q2H PRN PRN PRN Reason: Shortness of Breath/Wheezing Albuterol Sulfate (Ventolin Aerosols) 2.5 mg INHALATION Q6HWA.RT [facility] Last Admin: 10/19/18 07:44 Dose: 2.5 mg Documented by: Budesonide (Pulmicort Aerosol) 0.5 mg INHALATION Q12H.RT [facility] Last Admin: 10/19/18 07:43 Dose: 0.5 mg Documented by: Dexamethasone (Decadron) 1 mg PO DAILY@0800 [facility] Last Admin: 10/19/18 09:07 Dose: 1 mg Documented by: Dextrose (D50w Syringe) 0 gm IV X1 PRN; Protocol PRN Reason: Hypoglycemia Escitalopram Oxalate (Lexapro) 10 mg PO DAILY [facility] Last Admin: 10/19/18 09:07 Dose: 10 mg Documented by: Glucagon () 1 mg IM .X1 PRN PRN Reason: Hypoglycemia Heparin Sodium (Porcine) (Heparin Na) 5,000 unit SC Q8 [facility] Last Admin: 10/19/18 05:13 Dose: 5,000 unit Documented by: Ceftriaxone Sodium 2 gm/ (Sodium Chloride) 50 mls @ 100 mls/hr IV Q24 [facility] Last Admin: 10/19/18 09:07 Dose: 100 mls/hr Documented by: Iron Sucrose 300 mg/ Sodium (Chloride) 265 mls @ 176.667 mls/hr IV DAILY [facility] Stop: 10/21/18 11:29 Last Admin: 10/19/18 10:04 Dose: 176.667 mls/hr Documented by: Dextrose () 1,000 mls @ 75 mls/hr IV .[id number] [facility] Insulin Glargine (Lantus (Bkc)) 30 units SC DINNER [facility] Last Admin: 10/18/18 21:31 Dose: 30 u Documented by: Insulin Human Lispro (Humalog Kwikpen (Bkc)) 10 unit SC TIDAC [facility] Last Admin: 10/19/18 09:15 Dose: 10 u Documented by: Insulin Human Lispro (Humalog Kwikpen (Bkc)) 0 unit SC ACHS [facility]; Protocol Last Admin: 10/19/18 08:57 Dose: Not Given Documented by: Lorazepam (Ativan) 0.5 mg PO DAILY PRN PRN Reason: anxiety Last Admin: 10/19/18 09:15 Dose: 0.5 mg Documented by: Metoprolol Tartrate (Lopressor (Beta Jeffery)) 25 mg PO BID [facility] Last Admin: 10/19/18 09:09 Dose: 25 mg Documented by: Morphine Sulfate (Roxanol (Ir Oral Solution)) 5 mg SL Q6H PRN PRN Reason: shortness of breath Polyethylene Glycol (Miralax) 17 gm PO DAILY PRN PRN PRN Reason: Constipation Polyethylene Glycol (Miralax) 34 gm PO X1 PRN PRN Reason: Bowel Movement Senna/Docusate Sodium (Senokot-S, Rhina-Colace) 2 tablet PO BID [facility] Last Admin: 10/19/18 09:07 Dose: 2 tablet Documented by: Sodium Chloride () 10 - 40 ml IV UD PRN PRN Reason: SALINE FLUSH Trazodone HCl (Desyrel) 100 mg PO QHS PRN PRN PRN Reason: SLEEP Medical Necessity - Tobacco Use Smoking Status: Former smoker Assessment/Plan All Active Problems (Last Updated 09/02/18 @ 14:[address]) Complicated UTI (urinary tract infection) (Acute) Severe hyperglycemia due to diabetes mellitus (Acute) Hyperkalemia, diminished renal excretion (Acute) Physical debility (Acute) Generalized weakness (Acute) Recurrent falls (Acute) Acute respiratory failure with hypoxia and hypercapnia (Acute) Elevated troponin I level (Acute) Hyperglycemia due to type 2 diabetes mellitus (Acute) Acute encephalopathy (Acute) COPD exacerbation (Acute) Diastolic CHF, acute on chronic (Acute) CVA (cerebral vascular accident) (Resolved) CVA (cerebral vascular accident) (Resolved) History of GI bleeding (Resolved) 1. Hyperkalemia K was 7.3 on admission, is 5.6 today due to TANJA on CKD, use of potassium supplements and high consumption of high potassium foods, such as orange juice. received potassium depleting cocktail will give kayexalate today nephro on board; await rec's 2. Hyponatremia sodium was 121 on admission. now up to 137. likely due to hyperglycemia and effect of loop diuretics. serum osmolality was 318, making hypovolemia less likely sodium overcorrected to 137 today, in <24 hours. stopped iVF NS and will start on IV D5W @ 75cc/hr recheck BMP at 12 noon. nephro on board; discussed with Dr Duke; he wants to hold off on Desmopressin for now 3. complicated UTI: has had a epstein in place for hte past few days. wbc was 30 on admisison, and is now down to 21.5. on chronic dexamethasone, which may also be contributing to leucocytosis blood and urine cultures pending UA showed 3+ bacteria and >100 wbcs on IV ceftriaxone 4. Acute on chronic microcytic anemia Hb was 7.2 this morning. 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 Chronic hypoxic respiratory failure on her baseline 6L of oxygen. Anemia and lethargy as well as sedentary lifestyle also a contributory factor, as well as her baseline COPD on breathing treatments BNP was 347, though in setting of kidney impairment, this won't be an accurate indicator of acute heart failure titrate oxytgen to maintain sats>90% 6. Chronic HFpEF: diuretics on hold o/a of TANJA on CKD and hyponatremia. WIll consider resuming diuretics. 7. Poorly controlled diabetes mellitus type 2: A1C is 10.2 on ISS and insulin lantus 30IU qhs. accuchecks ACHS 8. Moderately severe aortic stenosis: stable 9. Chronic debility and recurrent falls: PT/OT consulted. 10. Morbid obesity: BMI is 46. complicates acute care, expected recovery and prognosis. Patient also likely has underlying TRI and OHS. 11. Pulmonary hypertension: contributes to chronic respiratory failure. on oxygen as under 5. DVT prophylaxis: high risk. on heparin. stop heparin if fobt is positive Code status: DNRCCA Code Visit Inpatient E&M: 74729 Subs Hosp L3
[2018-10-19 12:10] LABS: Anion Gap 9 (5-15); BUN 73 mg/dL (7-18); BUN/Creat Ratio 52.5 RATIO (10-20); Calcium,Total 8.2 mg/dL (8.5-10.1); Chloride 92 mmol/L (98-107); Creatinine, Serum 1.39 mg/dL (0.55-1.02); EST Glomerular Filtration Rate 40 mL/min (>60); Est Glom Filt Rate - Afr Amer 48 mL/min (>60); Estimated Creatinine Clearance 31.15 ml/min; Glucose 158 mg/dL (74-106); Sodium Level 131 mmol/L (136-145)
[2018-10-19] MEDS: Acetaminophen 325 MG Tablet 650 MG PO ×2 (13:13→20:16)
[2018-10-19] MEDS: Insulin Lispro 100 UNIT/ML INSULN.PEN SC ×3 (14:39→23:26)
[2018-10-19 14:51] LABS: Bedside Glucose 237 mg/dL (70-110)
[2018-10-19 16:52] LABS: Anion Gap 10 (5-15); BUN 73 mg/dL (7-18); BUN/Creat Ratio 42.9 RATIO (10-20); Calcium,Total 8.4 mg/dL (8.5-10.1); Chloride 89 mmol/L (98-107); EST Glomerular Filtration Rate 32 mL/min (>60); Est Glom Filt Rate - Afr Amer 38 mL/min (>60); Estimated Creatinine Clearance 25.47 ml/min; Glucose 318 mg/dL (74-106); Potassium 4.1 mmol/L (3.5-5.1); Sodium Level 130 mmol/L (136-145)
[2018-10-19 18:00] LABS: Bedside Glucose 320 mg/dL (70-110)
--- NOTE | 2018-10-19 18:54 | PCM.CONS.R ---
Consultation - Renal 10/19/18 PCP/ Referring MD: Requesting physician: Renaldo Medrano MD Primary care physician: Vic Chen MD Reason for Consultation:: Hyperkalemia, hyponatremia - History of Present Illness History of Present Illness: The patient is a 68 year old F with past history of T2DM, aortic stenosis, HFpEF, and pulmonary HTN/fibrosis. Pt is on home O2. She presented to [facility] on 10/18/18 with a 2 weeks history of progressive weakness and dyspnea. She was found to have K level of 7.9 with Na of 121 and SCr of 1.99 mg/dL which prompted nephrology consultation. Prior SCr has been around 1.2-1.3 mg/dL. The pt had been on torsemide and metolazone for chronic LE edema. She was also taking KCl presumably because she is on diuretics. On presentation, the pt was found to have blood sugar of 474 mg/dL. She denies current CP. She still has SOB which is slightly better than on admission. She has intermittent nausea but no vomiting. There is no diarrhea. She denies headache. She did fall 1 week ago. - Allergies Allergies: Allergies No Known Allergies Allergy (Verified 09/08/18 13:48) - Current Medications Current Medications: Current Medications Acetaminophen (Tylenol) 650 mg PO Q6H PRN PRN PRN Reason: Mild Pain (1-3)/Temp > 100.7 F Last Admin: 10/19/18 13:13 Dose: 650 mg Documented by: Albuterol Sulfate (Ventolin Aerosols) 2.5 mg INHALATION Q2H PRN PRN PRN Reason: Shortness of Breath/Wheezing Albuterol Sulfate (Ventolin Aerosols) 2.5 mg INHALATION Q6HWA.RT [facility] Last Admin: 10/19/18 13:44 Dose: 2.5 mg Documented by: Budesonide (Pulmicort Aerosol) 0.5 mg INHALATION Q12H.RT [facility] Last Admin: 10/19/18 07:43 Dose: 0.5 mg Documented by: Dexamethasone (Decadron) 1 mg PO DAILY@0800 [facility] Last Admin: 10/19/18 09:07 Dose: 1 mg Documented by: Dextrose (D50w Syringe) 0 gm IV X1 PRN; Protocol PRN Reason: Hypoglycemia Escitalopram Oxalate (Lexapro) 10 mg PO DAILY [facility] Last Admin: 10/19/18 09:07 Dose: 10 mg Documented by: Glucagon () 1 mg IM .X1 PRN PRN Reason: Hypoglycemia Heparin Sodium (Porcine) (Heparin Na) 5,000 unit SC Q8 [facility] Last Admin: 10/19/18 14:40 Dose: 5,000 unit Documented by: Ceftriaxone Sodium 2 gm/ (Sodium Chloride) 50 mls @ 100 mls/hr IV Q24 [facility] Last Admin: 10/19/18 09:07 Dose: 100 mls/hr Documented by: Iron Sucrose 300 mg/ Sodium (Chloride) 265 mls @ 176.667 mls/hr IV DAILY [facility] Stop: 10/21/18 11:29 Last Admin: 10/19/18 10:04 Dose: 176.667 mls/hr Documented by: Dextrose () 1,000 mls @ 75 mls/hr IV .[id number] [facility] Last Admin: 10/19/18 12:09 Dose: 75 mls/hr Documented by: Insulin Glargine (Lantus (Bkc)) 30 units SC DINNER [facility] Last Admin: 10/19/18 17:50 Dose: 30 u Documented by: Insulin Human Lispro (Humalog Kwikpen (Bkc)) 10 unit SC TIDAC [facility] Last Admin: 10/19/18 17:48 Dose: 10 u Documented by: Insulin Human Lispro (Humalog Kwikpen (Bkc)) 0 unit SC ACHS [facility]; Protocol Last Admin: 10/19/18 17:48 Dose: 5 u Documented by: Lorazepam (Ativan) 0.5 mg PO DAILY PRN PRN Reason: anxiety Last Admin: 10/19/18 09:15 Dose: 0.5 mg Documented by: Metoprolol Tartrate (Lopressor (Beta Jeffery)) 25 mg PO BID [facility] Last Admin: 10/19/18 09:09 Dose: 25 mg Documented by: Morphine Sulfate (Roxanol (Ir Oral Solution)) 5 mg SL Q6H PRN PRN Reason: shortness of breath Polyethylene Glycol (Miralax) 17 gm PO DAILY PRN PRN PRN Reason: Constipation Polyethylene Glycol (Miralax) 34 gm PO X1 PRN PRN Reason: Bowel Movement Senna/Docusate Sodium (Senokot-S, Rhina-Colace) 2 tablet PO BID [facility] Last Admin: 10/19/18 09:07 Dose: 2 tablet Documented by: Sodium Chloride () 10 - 40 ml IV UD PRN PRN Reason: SALINE FLUSH Trazodone HCl (Desyrel) 100 mg PO QHS PRN PRN PRN Reason: SLEEP - Past Medical History Past Medical History (Chronic Problems): Chronic Problems (Last Updated 09/02/18 @ 14:[address]) Acute kidney injury superimposed on chronic kidney disease (Chronic) 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) Type 2 diabetes mellitus (Chronic) Nonrheumatic aortic (valve) stenosis (Chronic) Pure hypercholesterolemia (Chronic) Essential hypertension (Chronic) COPD with acute exacerbation (Chronic) Respiratory failure (Chronic) Depression (Chronic) Morbid obesity (Chronic) Pulmonary hypertension (Chronic) CKD stage 3 secondary to diabetes (Chronic) Chronic diastolic (congestive) heart failure (Chronic) Cerebral infarction, unspecified (Chronic) Palpitations (Chronic) Anxiety (Chronic) Left atrial enlargement (Chronic) Hypersomnia (Chronic) Anemia (Chronic) Carotid artery stenosis (Chronic) Chronic hypoxemic respiratory failure (Chronic) Pulmonary fibrosis (Chronic) 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 3 severe COPD by GOLD classification (Chronic) Pulmonary hypertension (Chronic) With PA pressures 55 by cardiac catheterization 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) - Past Surgical History Surgical History: herniorrhaphy, hysterectomy - Social History Smoking Status: Former smoker - Family History Paternal Family History: Family History (Last Reviewed 06/21/18 @ 04:30 by Edson Mooney MD) Mother Heart disease Father CAD (coronary artery disease) Hypertension Brother Hypertension History Items: Heart Disease Maternal Family History: Family History (Last Reviewed 06/21/18 @ 04:30 by Edson Mooney MD) Mother Heart disease Father CAD (coronary artery disease) Hypertension Brother Hypertension History Items: Heart Disease Review of Systems Constitutional: Reports: Malaise, Weakness. Denies: Chills, Fever, Weight Change Eyes: Denies: Blurred vision, Pain, Redness HEENT: Denies: Head Aches, Sinus Congestion, Sinus Drainage Cardiovascular: Reports: Edema. Denies: Chest Pain, Palpitations Respiratory: Reports: Shortness of breath at rest, Shortness of breath upon exertion. Denies: Cough, Hemoptysis, Sputum production Gastrointestinal: Reports: Nausea. Denies: Abdominal Pain, Diarrhea, Vomiting Genitourinary: Denies: Dysuria, Frequency, Incontinence Musculoskeletal: Denies: Joint Pain, Joint Tenderness Skin: Denies: Rash, Wounds Neurological: Denies: Numbness, Tingling Psychiatric: Reports: Depression. Denies: Anxiety, Homicidal Ideations, Suicidal Ideations Hematologic/ Lymphatic: Denies: Easy Bruising, Easy Bleeding Patient Problems: Active and Suspected Problems (Last Updated 09/02/18 @ 14:[address]) Complicated UTI (urinary tract infection) (Acute) Severe hyperglycemia due to diabetes mellitus (Acute) Hyperkalemia, diminished renal excretion (Acute) Physical debility (Acute) Generalized weakness (Acute) Recurrent falls (Acute) - Physical Exam General: Alert, Oriented x3 HEENT: Normocephalic, - - periorbital ecchymosis Oral: Moist Mucosa Neck: Supple, No JVD Lungs: Clear to auscultation Cardiovascular: Normal S1, Normal S2, No murmurs Abdomen: Bowel Sounds Present, Soft, Non Tender, Obese Extremities: Edema - Trace Musculoskeletal: No Tenderness to Palpation of Joints or Extremities Neurological: - - No focal deficit Psych/Mental Status: Normal Affect Vital Signs Temp Pulse Resp BP Pulse Ox 99.2 F H 99 18 118/49 L 96 10/19/18 16:46 10/19/18 16:46 10/19/18 16:46 10/19/18 16:46 10/19/18 16:46 Oxygen Flow Rate (L/min) 4 Oxygen Delivery Method Nasal Cannula Weight: 120.2 kg Body Mass Index (BMI) 45.8 Finger Stick Blood Glucose 478 Intake and Output for Last 24 Hours 10/17/18 10/18/18 10/19/18 23:59 23:59 23:59 Intake Total 4913 / 4913 Output Total 1650 / 1650 Balance 3263 / 3263 Microbiology Past 72 Hours 10/18/18 15:58 Urine Culture - Preliminary Urine Catheter - 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 Tests Past 24 Hrs 10/18/18 10/18/18 10/18/18 15:58 15:58 15:58 WBC RBC Hgb Hct MCV MCH MCHC RDW Std Deviation RDW [employer] [place] Plt Count MPV Neut % (Auto) Absolute Neuts (auto) Absolute Lymphs (auto) Total Counted Neutrophils % (Manual) Band Neutrophils % Lymphocytes % (Manual) Monocytes % (Manual) Eosinophils % (Manual) Metamyelocytes % Myelocytes % Nucleated RBCs/100 WBC Diff Path Review Platelet Estimate Plt Morphology Comment Polychromasia Hypochromasia Basophilic Stippling Anisocytosis Microcytosis Retic Count Immature Retic Fraction Retic Hgb Equivalent Sodium Potassium Chloride Carbon Dioxide Anion Gap BUN Creatinine Estim Creat Clear Calc Est GFR (MDRD) Af Amer Est GFR (MDRD) Non-Af BUN/Creatinine Ratio Glucose Hemoglobin A1c Calcium Phosphorus Magnesium Iron TIBC Iron Saturation Ferritin Total Bilirubin AST ALT Alkaline Phosphatase B-Natriuretic Peptide Total Protein Albumin Globulin Albumin/Globulin Ratio Vitamin B12 Vitamin D 25-Hydroxy TSH Urine Osmolality 356 U Random Total Protein 36.0 H Ur Random Sodium Urine Creatinine 72.70 Protein/Creatinin Ratio 495 H Urine Chloride < 10 Blood Type Antibody Screen Crossmatch 10/18/18 10/18/18 10/18/18 15:58 19:00 19:00 WBC RBC Hgb Hct MCV MCH MCHC RDW Std Deviation RDW [employer] [place] Plt Count MPV Neut % (Auto) Absolute Neuts (auto) Absolute Lymphs (auto) Total Counted Neutrophils % (Manual) Band Neutrophils % Lymphocytes % (Manual) Monocytes % (Manual) Eosinophils % (Manual) Metamyelocytes % Myelocytes % Nucleated RBCs/100 WBC Diff Path Review Platelet Estimate Plt Morphology Comment Polychromasia Hypochromasia Basophilic Stippling Anisocytosis Microcytosis Retic Count Immature Retic Fraction Retic Hgb Equivalent Sodium Potassium 7.3 H* Chloride Carbon Dioxide Anion Gap BUN Creatinine Estim Creat Clear Calc Est GFR (MDRD) Af Amer Est GFR (MDRD) Non-Af BUN/Creatinine Ratio Glucose Hemoglobin A1c Calcium Phosphorus Magnesium Iron TIBC Iron Saturation Ferritin Total Bilirubin AST ALT Alkaline Phosphatase B-Natriuretic Peptide Total Protein Albumin Globulin Albumin/Globulin Ratio Vitamin B12 Vitamin D 25-Hydroxy TSH Urine Osmolality U Random Total Protein Ur Random Sodium 10 Urine Creatinine Protein/Creatinin Ratio Urine Chloride Blood Type AB POSITIVE Antibody Screen NEGATIVE Crossmatch 10/18/18 10/19/18 10/19/18 19:00 00:07 00:07 WBC 21.5 H RBC 3.19 L Hgb 6.5 L Hct 24.4 L MCV 76.5 L MCH 20.4 L MCHC 26.6 L RDW Std Deviation 51.7 H RDW [employer] [place] 18.7 H Plt Count 432 MPV 8.8 Neut % (Auto) Not Reportable Absolute Neuts (auto) 18.5 H Absolute Lymphs (auto) 1.51 Total Counted 100 Neutrophils % (Manual) 85 H Band Neutrophils % 1 Lymphocytes % (Manual) 7 L Monocytes % (Manual) 5 Eosinophils % (Manual) Metamyelocytes % 1 Myelocytes % 1 H Nucleated RBCs/100 WBC Diff Path Review May foll Platelet Estimate ADEQUATE Plt Morphology Comment LARGE Polychromasia 1+ Hypochromasia 2+ Basophilic Stippling 1+ Anisocytosis 1+ Microcytosis 2+ Retic Count Immature Retic Fraction Retic Hgb Equivalent Sodium 130 L Potassium 5.6 H Chloride 90 L Carbon Dioxide 30.0 Anion Gap 10 BUN 89 H Creatinine 1.91 H Estim Creat Clear Calc 22.67 Est GFR (MDRD) Af Amer 33 L Est GFR (MDRD) Non-Af 28 L BUN/Creatinine Ratio 46.6 H Glucose 255 H Hemoglobin A1c Calcium 9.5 Phosphorus Magnesium Iron TIBC Iron Saturation Ferritin Total Bilirubin AST ALT Alkaline Phosphatase B-Natriuretic Peptide Total Protein Albumin Globulin Albumin/Globulin Ratio Vitamin B12 Vitamin D 25-Hydroxy TSH Urine Osmolality U Random Total Protein Ur Random Sodium Urine Creatinine Protein/Creatinin Ratio Urine Chloride Blood Type Antibody Screen Crossmatch See Detail 10/19/18 10/19/18 10/19/18 05:50 05:50 05:50 WBC 19.4 H RBC 3.36 L Hgb 7.2 L Hct 26.1 L MCV 77.7 L MCH 21.4 L MCHC 27.6 L RDW Std Deviation 52.8 H RDW [employer] [place] 18.8 H Plt Count 390 MPV 8.9 Neut % (Auto) Not Reportable Absolute Neuts (auto) 16.3 H Absolute Lymphs (auto) 0.97 Total Counted 100 Neutrophils % (Manual) 80 H Band Neutrophils % 4 Lymphocytes % (Manual) 5 L Monocytes % (Manual) 7 Eosinophils % (Manual) 1 Metamyelocytes % 3 H Myelocytes % Nucleated RBCs/100 WBC 1 Diff Path Review May foll Platelet Estimate ADEQUATE Plt Morphology Comment LARGE Polychromasia 1+ Hypochromasia 1+ Basophilic Stippling Anisocytosis 1+ Microcytosis 1+ Retic Count 3.74 H Immature Retic Fraction 41.60 H Retic Hgb Equivalent 19.0 L Sodium 137 Potassium 4.5 Chloride 93 L Carbon Dioxide 34.0 H Anion Gap 10 BUN 80 H Creatinine 1.46 H Estim Creat Clear Calc 29.66 Est GFR (MDRD) Af Amer 46 L Est GFR (MDRD) Non-Af 38 L BUN/Creatinine Ratio 54.8 H Glucose 121 H Hemoglobin A1c 10.2 H Calcium 8.7 Phosphorus 5.1 H Magnesium 2.1 Iron 16 L TIBC 405 Iron Saturation 4.0 L Ferritin 10 Total Bilirubin 0.40 AST 10 L ALT 30 Alkaline Phosphatase 77 B-Natriuretic Peptide Total Protein 5.9 L Albumin 2.8 L Globulin 3.1 Albumin/Globulin Ratio 0.9 Vitamin B12 Vitamin D 25-Hydroxy TSH 1.16 Urine Osmolality U Random Total Protein Ur Random Sodium Urine Creatinine Protein/Creatinin Ratio Urine Chloride Blood Type Antibody Screen Crossmatch 10/19/18 10/19/18 10/19/18 05:50 05:50 11:45 WBC RBC Hgb Hct MCV MCH MCHC RDW Std Deviation RDW [employer] [place] Plt Count MPV Neut % (Auto) Absolute Neuts (auto) Absolute Lymphs (auto) Total Counted Neutrophils % (Manual) Band Neutrophils % Lymphocytes % (Manual) Monocytes % (Manual) Eosinophils % (Manual) Metamyelocytes % Myelocytes % Nucleated RBCs/100 WBC Diff Path Review Platelet Estimate Plt Morphology Comment Polychromasia Hypochromasia Basophilic Stippling Anisocytosis Microcytosis Retic Count Immature Retic Fraction Retic Hgb Equivalent Sodium 131 L Potassium 4.0 Chloride 92 L Carbon Dioxide 30.0 Anion Gap 9 BUN 73 H Creatinine 1.39 H Estim Creat Clear Calc 31.15 Est GFR (MDRD) Af Amer 48 L Est GFR (MDRD) Non-Af 40 L BUN/Creatinine Ratio 52.5 H Glucose 158 H Hemoglobin A1c Calcium 8.2 L Phosphorus Magnesium Iron TIBC Iron Saturation Ferritin Total Bilirubin AST ALT Alkaline Phosphatase B-Natriuretic Peptide 349.7 H Total Protein Albumin Globulin Albumin/Globulin Ratio Vitamin B12 Pending Vitamin D 25-Hydroxy Pending TSH Urine Osmolality U Random Total Protein Ur Random Sodium Urine Creatinine Protein/Creatinin Ratio Urine Chloride Blood Type Antibody Screen Crossmatch 10/19/18 16:30 WBC RBC Hgb Hct MCV MCH MCHC RDW Std Deviation RDW [employer] [place] Plt Count MPV Neut % (Auto) Absolute Neuts (auto) Absolute Lymphs (auto) Total Counted Neutrophils % (Manual) Band Neutrophils % Lymphocytes % (Manual) Monocytes % (Manual) Eosinophils % (Manual) Metamyelocytes % Myelocytes % Nucleated RBCs/100 WBC Diff Path Review Platelet Estimate Plt Morphology Comment Polychromasia Hypochromasia Basophilic Stippling Anisocytosis Microcytosis Retic Count Immature Retic Fraction Retic Hgb Equivalent Sodium 130 L Potassium 4.1 Chloride 89 L Carbon Dioxide 31.0 Anion Gap 10 BUN 73 H Creatinine 1.70 H Estim Creat Clear Calc 25.47 Est GFR (MDRD) Af Amer 38 L Est GFR (MDRD) Non-Af 32 L BUN/Creatinine Ratio 42.9 H Glucose 318 H Hemoglobin A1c Calcium 8.4 L Phosphorus Magnesium Iron TIBC Iron Saturation Ferritin Total Bilirubin AST ALT Alkaline Phosphatase B-Natriuretic Peptide Total Protein Albumin Globulin Albumin/Globulin Ratio Vitamin B12 Vitamin D 25-Hydroxy TSH Urine Osmolality U Random Total Protein Ur Random Sodium Urine Creatinine Protein/Creatinin Ratio Urine Chloride Blood Type Antibody Screen Crossmatch POC Glucose 10/19/18 10/19/18 10/19/18 17:46 14:35 08:52 POC Glucose 320 H 237 H 130 H 10/18/18 10/18/18 23:05 21:21 POC Glucose 346 H 350 H Assessment/Plan All Active Problems (Last Updated 09/02/18 @ 14:[address]) Complicated UTI (urinary tract infection) (Acute) Severe hyperglycemia due to diabetes mellitus (Acute) Hyperkalemia, diminished renal excretion (Acute) Physical debility (Acute) Generalized weakness (Acute) Recurrent falls (Acute) Acute respiratory failure with hypoxia and hypercapnia (Acute) Elevated troponin I level (Acute) Hyperglycemia due to type 2 diabetes mellitus (Acute) Acute encephalopathy (Acute) COPD exacerbation (Acute) Diastolic CHF, acute on chronic (Acute) CVA (cerebral vascular accident) (Resolved) CVA (cerebral vascular accident) (Resolved) History of GI bleeding (Resolved) 1. Acute kidney injury on chronic kidney disease stage 3. baseline SCr is 1.3 mg/dL. TANJA is prerenal, Maik is 10 mmol/L. Suspect she became volume depleted with diuresis (was on torsemide and metolazone) and poor intake. SCr is better at 1.70 mg/dL today (SCr was 1.99 mg/dL on presentation). Low suspicion for other causes of TANJA at this time. Recheck SCr in am. 2. Hyponatremia. Hyponatremia is secondary to volume depletion and hyperglycemia (blood sugar was ~400 on admit). Quick correction with volume repletion, so D5W was started this am (d/w Dr. Levine) to prevent ODS. Na is now 130 mEq/L (at 16:30). Will stop D5W (also delaing hyperglycemia). Recheck Na again in 4 hrs. Aim for Na of around 128-130 by tomorrow morning. OK to continue SSRI fo now. 3. Hyperkalemia. Due to TANJA on CKD, hyperglycemia and pt was on KCl at home. Hyperkalemia has corrected. Holding KCl. Defer treatment of hyperglycemia to hospitalist.
[2018-10-19] MEDS: 0.9% NaCl Peripheral Flush Adult/Peds IV (20:16)
[2018-10-19 21:00] LABS: Anion Gap 7 (5-15); BUN 70 mg/dL (7-18); Calcium,Total 8.2 mg/dL (8.5-10.1); Chloride 90 mmol/L (98-107); EST Glomerular Filtration Rate 40 mL/min (>60); Est Glom Filt Rate - Afr Amer 48 mL/min (>60); Estimated Creatinine Clearance 30.93 ml/min; Glucose 224 mg/dL (74-106); Potassium 3.1 mmol/L (3.5-5.1); Sodium Level 130 mmol/L (136-145)
[2018-10-19 23:36] LABS: Bedside Glucose 183 mg/dL (70-110)
[2018-10-20] VITALS (15 sets, daily range): BP systolic 82–132; BP diastolic 49–85; PULSE 96–156; RESP 15–20; TEMP 36.4–36.8; O2SAT 94–100
--- NOTE | 2018-10-20 04:31 | NURSING ---
pt assisted to elevate feet/legs, 5 minutes later pt no longer elevating legs, states I can't breath with my legs up. Pt now c/o ankles hurting. PRN given and education concerning elevation of BLE.
[2018-10-20] MEDS: Acetaminophen 325 MG Tablet 650 MG PO ×2 (04:36→11:13)
[2018-10-20] MEDS: Heparin Injection (Vial) 5,000 UNIT/ML VIAL 5000 UNIT SC ×3 (05:38→21:53)
[2018-10-20 05:52] LABS: Hematocrit 31.8 % (37-47); Hemoglobin 9.3 g/dL (12.0-15.0); Mean Corp Hgb Conc 29.2 g/dL (32-36); Mean Corpuscular Hgb 22.6 pg (27.0-32.0); Mean Corpuscular Volume 77.4 fL (81-99); Mean Platelet Vol. 9.6 fl (6.2-12.0); POSITIVE COUNT YES; POSITIVE DIFFERENTIAL YES; POSITIVE MORPHOLOGY YES; Platelet Count 317 K/mm3 (150-450); RBC Distribution Width CV 19.8 % (11.6-14.6); RBC Distribution Width SD 53.9 fl (35.1-43.9); Red Blood Count 4.11 M/mm3 (4.2-5.4); White Blood Count 17.5 K/mm3 (4.4-11.0)
[2018-10-20 06:37] LABS: Anion Gap 13 (5-15); BUN 62 mg/dL (7-18); BUN/Creat Ratio 54.9 RATIO (10-20); Calcium,Total 8.5 mg/dL (8.5-10.1); Chloride 93 mmol/L (98-107); Creatinine, Serum 1.13 mg/dL (0.55-1.02); EST Glomerular Filtration Rate 51 mL/min (>60); Est Glom Filt Rate - Afr Amer 61 mL/min (>60); Estimated Creatinine Clearance 38.32 ml/min; Glucose 120 mg/dL (74-106); Potassium 3.7 mmol/L (3.5-5.1); Sodium Level 132 mmol/L (136-145)
[2018-10-20 06:43] LABS: Differential Indicated MANUAL DIFF
[2018-10-20] MEDS: Mag Hydrox/Al Hydrox/Simeth 30 ML UDC PO ×2 (07:03→16:55)
[2018-10-20 07:44] LABS: Eosinophil 3 % (0-5); Hypochromasia 1+; Lymphocyte 6 % (19-41); Monocyte 7 % (0-10); Myelocyte 1 (0-0); Neutrophil-Segmented 83 % (47-70); Platelet Estimate ADEQUATE (ADEQ); Polychromasia 1+; Red Cell Morphology N CYTIC NORMAL (NORM C&C); Total Cells Counted 100 (MANUAL DIFF)
[2018-10-20 07:45] LABS: Absolute Lymphocyte Count 1.05 X10^3/uL (0.83-4.51); Absolute Neutrophil Count 14.5 X10^3/uL (2.0-7.7)
[2018-10-20 08:53] LABS: Vitamin B12 353 pg/mL (211-911); Vitamin D,25 Hydroxy 5.6 ng/mL (29.95-100.01)
[2018-10-20] MEDS: Metoprolol Tartrate 25 MG Tablet PO (11:12)
[2018-10-20] MEDS: Escitalopram Oxalate 10 MG Tablet PO (11:12)
[2018-10-20] MEDS: Senna/Docusate Sodium 1 Tablet 2 TABLET PO (11:13)
[2018-10-20] MEDS: LORazepam 0.5 MG Tablet PO (11:13)
[2018-10-20 11:15] LABS: Pathologist Review Reviewed
[2018-10-20 11:24] LABS: Pathologist Review Reviewed
[2018-10-20 11:24] LABS: Pathologist Review Reviewed
[2018-10-20 11:28] LABS: Pathologist Review Reviewed
[2018-10-20 11:36] LABS: Bedside Glucose 189 mg/dL (70-110)
--- NOTE | 2018-10-20 12:05 | NURSING ---
wound photo: left dorsal foot
--- NOTE | 2018-10-20 12:06 | NURSING ---
wound photo: left medial lower leg
--- NOTE | 2018-10-20 12:07 | NURSING ---
wound photo: right medial lower leg
--- NOTE | 2018-10-20 12:07 | NURSING ---
wound photo: right anterolateral lower leg/right dorsal foot
--- NOTE | 2018-10-20 12:09 | CASEMGMT ---
Addendum entered by Chey Scott 10/20/18 13:16: Received call from Rema at [facility] and they can accept patient at d/c. SW let patient know this information. Plan: [facility] [place] under skilled level of care. Chey AGUIRRE JEWELRY COATER Original Note: SW spoke with patient about d/c plan. She confirmed she needs to go to a longterm. SW asked if she would like a list of facilities. She said her first choice would be [facility] and second would be [facility]. ANTONIO called [facility] in [facility] and they do not have a bed until Saturday right now. ANTONIO called Rema at [facility] and left her a voice mail with referral. ANTONIO also faxed referral. Chey AGUIRRE MSW
[2018-10-20] MEDS: Insulin Lispro 100 UNIT/ML INSULN.PEN 10 UNIT SC ×2 (13:51→17:09)
[2018-10-20] MEDS: Insulin Lispro 100 UNIT/ML INSULN.PEN SC ×2 (13:52→17:10)
[2018-10-20] MEDS: 0.9% NaCl Peripheral Flush Adult/Peds IV ×3 (14:01→23:54)
[2018-10-20] MEDS: morphine (oral solution) 10MG/0.5ML Syringe 5 MG SL (14:09)
--- NOTE | 2018-10-20 14:47 | PN_ITS ---
Patient Problems: Active and Suspected Problems (Last Updated 09/02/18 @ 14:[address]) Complicated UTI (urinary tract infection) (Acute) Severe hyperglycemia due to diabetes mellitus (Acute) Hyperkalemia, diminished renal excretion (Acute) Physical debility (Acute) Generalized weakness (Acute) Recurrent falls (Acute) Subjective: Complaining of her chronic leg pain today, however she does feel better after her laboratory values have returned to baseline. Vitals/I&O's: Vital Signs Temp Pulse Resp BP Pulse Ox 98.3 F 100 19 H 104/65 98 10/20/18 12:30 10/20/18 12:30 10/20/18 12:30 10/20/18 12:30 10/20/18 12:30 Oxygen Flow Rate (L/min) 4 Oxygen Delivery Method Nasal Cannula Weight: 262 lb 9.129 oz Body Mass Index (BMI) 45.8 Finger Stick Blood Glucose 478 Intake and Output for Last 24 Hours 10/18/18 10/19/18 10/20/18 23:59 23:59 23:59 Intake Total 5313 / 5433 441.9 / 441.9 Output Total 1650 / 2250 950 / 950 Balance 3663 / 3183 -508.1 / -508.1 General: Alert, Oriented x3, Cooperative, No apparent distress HEENT: Atraumatic, PERRLA, EOMI, Normocephalic Oral: Moist Mucosa Neck: Supple, No JVD Lungs: Clear to auscultation, No rhonchi, No wheeze, No rales, Diminished, - - Poor air movement Cardiovascular: Regular rate, Regular Rhythm, Normal S1, Normal S2, Murmur - 2 out of 6 AYUSH Abdomen: Soft, Non Tender, Non-Distended, No Hepato-splenomegaly, Obese Extremities: Capillary Refill Less than 3 Seconds, Edema - Bilateral lower extremity edema currently wrapped Skin: No rashes, No breakdown Neurological: Neuro grossly intact, Sensory exam intact to light touch and pain Psych/Mental Status: Normal Affect, Appropriate Microbiology Past 72 Hours 10/18/18 15:58 Urine Catheter - Catheter Urine Culture - Final Citrobacter freundii Laboratory Results 10/18/18 14:50: Diff Path Review Reviewed 10/18/18 19:00: Crossmatch See Detail 10/19/18 00:07: Diff Path Review Reviewed 10/19/18 05:50: Diff Path Review Reviewed 10/19/18 05:50: Vitamin B12 353, Vitamin D 25-Hydroxy 5.6 L 10/19/18 14:35: POC Glucose 237 H 10/19/18 16:30: Sodium 130 L, Potassium 4.1, Chloride 89 L, Carbon Dioxide 31.0, Anion Gap 10, BUN 73 H, Creatinine 1.70 H, Estim Creat Clear Calc 25.47, Est GFR (MDRD) Af Amer 38 L, Est GFR (MDRD) Non-Af 32 L, BUN/Creatinine Ratio 42.9 H, Glucose 318 H, Calcium 8.4 L 10/19/18 17:46: POC Glucose 320 H 10/19/18 20:35: Sodium 130 L, Potassium 3.1 L, Chloride 90 L, Carbon Dioxide 33.0 H, Anion Gap 7, BUN 70 H, Creatinine 1.40 H, Estim Creat Clear Calc 30.93, Est GFR (MDRD) Af Amer 48 L, Est GFR (MDRD) Non-Af 40 L, BUN/Creatinine Ratio 50.0 H, Glucose 224 H, Calcium 8.2 L 10/19/18 23:21: POC Glucose 183 H 10/20/18 04:54: WBC 17.5 H, RBC 4.11 L, Hgb 9.3 L, Hct 31.8 L, MCV 77.4 L, MCH 22.6 L, MCHC 29.2 L, RDW Std Deviation 53.9 H, RDW [employer] [place] 19.8 H, Plt Count 317, MPV 9.6, Neut % (Auto) Not Reportable, Absolute Neuts (auto) 14.5 H, Absolute Lymphs (auto) 1.05, Total Counted 100, Neutrophils % (Manual) 83 H, Lymphocytes % (Manual) 6 L, Monocytes % (Manual) 7, Eosinophils % (Manual) 3, Myelocytes % 1 H, Diff Path Review Reviewed, Platelet Estimate ADEQUATE, RBC Morphology N CYTIC, Polychromasia 1+, Hypochromasia 1+ 10/20/18 04:54: Sodium 132 L, Potassium 3.7, Chloride 93 L, Carbon Dioxide 26.0, Anion Gap 13, BUN 62 H, Creatinine 1.13 H, Estim Creat Clear Calc 38.32, Est GFR (MDRD) Af Amer 61, Est GFR (MDRD) Non-Af 51 L, BUN/Creatinine Ratio 54.9 H, Glucose 120 H, Calcium 8.5 10/20/18 10:33: POC Glucose 189 H Current Medications Acetaminophen (Tylenol) 650 mg PO Q6H PRN PRN PRN Reason: Mild Pain (1-3)/Temp > 100.7 F Last Admin: 10/20/18 11:13 Dose: 650 mg Documented by: Al Hydroxide/Mg Hydroxide (Mylanta Ii) 30 ml PO Q4H PRN PRN PRN Reason: INDIGESTION Last Admin: 10/20/18 07:03 Dose: 30 ml Documented by: Albuterol Sulfate (Ventolin Aerosols) 2.5 mg INHALATION Q2H PRN PRN PRN Reason: Shortness of Breath/Wheezing Albuterol Sulfate (Ventolin Aerosols) 2.5 mg INHALATION Q6HWA.RT [facility] Last Admin: 10/20/18 12:54 Dose: Not Given Documented by: Budesonide (Pulmicort Aerosol) 0.5 mg INHALATION Q12H.RT [facility] Last Admin: 10/20/18 06:56 Dose: Not Given Documented by: Dexamethasone (Decadron) 1 mg PO DAILY@0800 [facility] Last Admin: 10/20/18 14:07 Dose: 0.5 mg Documented by: Dextrose (D50w Syringe) 0 gm IV X1 PRN; Protocol PRN Reason: Hypoglycemia Escitalopram Oxalate (Lexapro) 10 mg PO DAILY [facility] Last Admin: 10/20/18 11:12 Dose: 10 mg Documented by: Glucagon () 1 mg IM .X1 PRN PRN Reason: Hypoglycemia Heparin Sodium (Porcine) (Heparin Na) 5,000 unit SC Q8 [facility] Last Admin: 10/20/18 14:00 Dose: 5,000 unit Documented by: Ceftriaxone Sodium 2 gm/ (Sodium Chloride) 50 mls @ 100 mls/hr IV Q24 [facility] Last Admin: 10/20/18 11:12 Dose: 100 mls/hr Documented by: Iron Sucrose 300 mg/ Sodium (Chloride) 265 mls @ 176.667 mls/hr IV DAILY [facility] Stop: 10/21/18 11:29 Last Admin: 10/20/18 13:53 Dose: 176.667 mls/hr Documented by: Insulin Glargine (Lantus (Bkc)) 30 units SC DINNER [facility] Last Admin: 10/19/18 17:50 Dose: 30 u Documented by: Insulin Human Lispro (Humalog Kwikpen (Bk)) 10 unit SC TIDAC [facility] Last Admin: 10/20/18 13:51 Dose: 10 u Documented by: Insulin Human Lispro (Humalog Kwikpen (Bkc)) 0 unit SC ACHS [facility]; Protocol Last Admin: 10/20/18 13:52 Dose: 3 u Documented by: Lorazepam (Ativan) 0.5 mg PO DAILY PRN PRN Reason: anxiety Last Admin: 10/20/18 11:13 Dose: 0.5 mg Documented by: Metoprolol Tartrate (Lopressor (Beta Jeffery)) 25 mg PO BID [facility] Last Admin: 10/20/18 11:12 Dose: 25 mg Documented by: Morphine Sulfate (Roxanol (Ir Oral Solution)) 5 mg SL Q6H PRN PRN Reason: PAIN Last Admin: 10/20/18 14:09 Dose: 5 mg Documented by: Polyethylene Glycol (Miralax) 17 gm PO DAILY PRN PRN PRN Reason: Constipation Polyethylene Glycol (Miralax) 34 gm PO X1 PRN PRN Reason: Bowel Movement Senna/Docusate Sodium (Senokot-S, Rhina-Colace) 2 tablet PO BID [facility] Last Admin: 10/20/18 11:13 Dose: 2 tablet Documented by: Sodium Chloride () 10 - 40 ml IV UD PRN PRN Reason: SALINE FLUSH Last Admin: 10/20/18 14:01 Dose: 10 ml Documented by: Trazodone HCl (Desyrel) 100 mg PO QHS PRN PRN PRN Reason: SLEEP Medical Necessity - Tobacco Use Smoking Status: Former smoker Assessment/Plan All Active Problems (Last Updated 09/02/18 @ 14:[address]) Complicated UTI (urinary tract infection) (Acute) Severe hyperglycemia due to diabetes mellitus (Acute) Hyperkalemia, diminished renal excretion (Acute) Physical debility (Acute) Generalized weakness (Acute) Recurrent falls (Acute) Acute respiratory failure with hypoxia and hypercapnia (Acute) Elevated troponin I level (Acute) Hyperglycemia due to type 2 diabetes mellitus (Acute) Acute encephalopathy (Acute) COPD exacerbation (Acute) Diastolic CHF, acute on chronic (Acute) CVA (cerebral vascular accident) (Resolved) CVA (cerebral vascular accident) (Resolved) History of GI bleeding (Resolved) 1. TANJA/CKD 3/hyponatremia and hyperkalemia/acute on chronic iron deficiency anemia -Her TANJA has resolved with IV fluids -Appreciate nephrology assistance -Hyponatremia and hyperkalemia have also resolved, hyponatremia was likely secondary to hyperglycemia and dehydration -Creatinine is now back to baseline of 1.1-1.2 -She does have a history of GI AVM and a history of GI bleeding, fecal occult blood sample is pending 2. Complicated UTI -White count is improving with IV Rocephin -Culture positive for Citrobacter, it is sensitive to Cipro which we can transition to on discharge 3. Chronic hypoxic respiratory failure/COPD pulmonary hypertension/chronic diastolic heart failure/moderate to severe aortic stenosis/HTN/HLD -She is stable on her 6 L nasal cannula which she is on at home. -BNP on admission was 347 though this can be secondary to her acute kidney injury -We will plan on resuming diuretics tomorrow with the okay by nephrology -Continue with metoprolol, simvastatin -Continue with her home inhalers 4. Poorly controlled DM 2/morbid obesity -A1c is 10.2, continue with long-acting insulin as well as sliding scale insulin -Accu-Cheks AC at bedtime -Glipizide at home which we will hold, she is on Lantus 20 units daily at home 5. GERD -Stable -Continue with PPI 6. Anxiety/depression -Stable -Tinea with Lexapro 7. Morbid obesity -Complicates her care and had a long discussion with her on lifestyle modifications 8. Chronic debility -Was on hospice previously and she revoked that to come to the hospital -We will obtain PT/OT for evaluation -For discharge to a custodial facility -I had a 20-minute discussion on advanced care planning with the patient about her CODE STATUS and about what hospice means. She was under the impression that hospice care meant home nursing and she did not realize that it meant end-of-life care. We will continue with her CODE STATUS of DNR CCA but transition to a custodial facility on discharge as she is unable to live alone. DVT: Heparin Code Visit Inpatient E&M: 53452 Subs Hosp L2
--- NOTE | 2018-10-20 14:47 | PCM.PN.REN ---
Patient Problems: Active and Suspected Problems (Last Updated 09/02/18 @ 14:[address]) Complicated UTI (urinary tract infection) (Acute) Severe hyperglycemia due to diabetes mellitus (Acute) Hyperkalemia, diminished renal excretion (Acute) Physical debility (Acute) Generalized weakness (Acute) Recurrent falls (Acute) Subjective: no new events - Physical Exam General: Alert, Oriented x3, Cooperative HEENT: Atraumatic, PERRLA, EOMI, Normocephalic Neck: Supple, No JVD, Negative Carotid Bruits Lungs: Clear to auscultation, Normal air movement Cardiovascular: Regular rate, No murmurs Abdomen: Bowel Sounds Present, Soft, Non Tender Extremities: Capillary Refill Less than 3 Seconds, Edema Skin: No rashes, No breakdown Musculoskeletal: No Tenderness to Palpation of Joints or Extremities Neurological: Cranial nerves II-XII grossly intact Psych/Mental Status: Normal Affect, Appropriate Vital Signs Temp Pulse Resp BP Pulse Ox 98.3 F 100 19 H 104/65 98 10/20/18 12:30 10/20/18 12:30 10/20/18 12:30 10/20/18 12:30 10/20/18 12:30 Oxygen Flow Rate (L/min) 4 Oxygen Delivery Method Nasal Cannula Weight: 119.1 kg Body Mass Index (BMI) 45.8 Finger Stick Blood Glucose 478 Intake and Output for Last 24 Hours 10/18/18 10/19/18 10/20/18 23:59 23:59 23:59 Intake Total 5313 / 5433 441.9 / 441.9 Output Total 1650 / 2250 950 / 950 Balance 3663 / 3183 -508.1 / -508.1 Microbiology Past 72 Hours 10/18/18 15:58 Urine Culture - Final Urine Catheter - Catheter Citrobacter freundii Laboratory Tests Past 24 Hrs 10/18/18 10/18/18 10/19/18 14:50 19:00 00:07 WBC RBC Hgb Hct MCV MCH MCHC RDW Std Deviation RDW [employer] [place] Plt Count MPV Neut % (Auto) Absolute Neuts (auto) Absolute Lymphs (auto) Total Counted Neutrophils % (Manual) Lymphocytes % (Manual) Monocytes % (Manual) Eosinophils % (Manual) Myelocytes % Diff Path Review Reviewed Reviewed Platelet Estimate RBC Morphology Polychromasia Hypochromasia Sodium Potassium Chloride Carbon Dioxide Anion Gap BUN Creatinine Estim Creat Clear Calc Est GFR (MDRD) Af Amer Est GFR (MDRD) Non-Af BUN/Creatinine Ratio Glucose Calcium Vitamin B12 Vitamin D 25-Hydroxy Crossmatch See Detail 10/19/18 10/19/18 10/19/18 05:50 05:50 16:30 WBC RBC Hgb Hct MCV MCH MCHC RDW Std Deviation RDW [employer] [place] Plt Count MPV Neut % (Auto) Absolute Neuts (auto) Absolute Lymphs (auto) Total Counted Neutrophils % (Manual) Lymphocytes % (Manual) Monocytes % (Manual) Eosinophils % (Manual) Myelocytes % Diff Path Review Reviewed Platelet Estimate RBC Morphology Polychromasia Hypochromasia Sodium 130 L Potassium 4.1 Chloride 89 L Carbon Dioxide 31.0 Anion Gap 10 BUN 73 H Creatinine 1.70 H Estim Creat Clear Calc 25.47 Est GFR (MDRD) Af Amer 38 L Est GFR (MDRD) Non-Af 32 L BUN/Creatinine Ratio 42.9 H Glucose 318 H Calcium 8.4 L Vitamin B12 353 Vitamin D 25-Hydroxy 5.6 L Crossmatch 10/19/18 10/20/18 10/20/18 20:35 04:54 04:54 WBC 17.5 H RBC 4.11 L Hgb 9.3 L Hct 31.8 L MCV 77.4 L MCH 22.6 L MCHC 29.2 L RDW Std Deviation 53.9 H RDW [employer] [place] 19.8 H Plt Count 317 MPV 9.6 Neut % (Auto) Not Reportable Absolute Neuts (auto) 14.5 H Absolute Lymphs (auto) 1.05 Total Counted 100 Neutrophils % (Manual) 83 H Lymphocytes % (Manual) 6 L Monocytes % (Manual) 7 Eosinophils % (Manual) 3 Myelocytes % 1 H Diff Path Review Reviewed Platelet Estimate ADEQUATE RBC Morphology N CYTIC Polychromasia 1+ Hypochromasia 1+ Sodium 130 L 132 L Potassium 3.1 L 3.7 Chloride 90 L 93 L Carbon Dioxide 33.0 H 26.0 Anion Gap 7 13 BUN 70 H 62 H Creatinine 1.40 H 1.13 H Estim Creat Clear Calc 30.93 38.32 Est GFR (MDRD) Af Amer 48 L 61 Est GFR (MDRD) Non-Af 40 L 51 L BUN/Creatinine Ratio 50.0 H 54.9 H Glucose 224 H 120 H Calcium 8.2 L 8.5 Vitamin B12 Vitamin D 25-Hydroxy Crossmatch POC Glucose 10/20/18 10/19/18 10/19/18 10:33 23:21 17:46 POC Glucose 189 H 183 H 320 H 10/19/18 14:35 POC Glucose 237 H Medical Necessity - Tobacco Use Smoking Status: Former smoker Assessment/Plan All Active Problems (Last Updated 09/02/18 @ 14:[address]) Complicated UTI (urinary tract infection) (Acute) Severe hyperglycemia due to diabetes mellitus (Acute) Hyperkalemia, diminished renal excretion (Acute) Physical debility (Acute) Generalized weakness (Acute) Recurrent falls (Acute) Acute respiratory failure with hypoxia and hypercapnia (Acute) Elevated troponin I level (Acute) Hyperglycemia due to type 2 diabetes mellitus (Acute) Acute encephalopathy (Acute) COPD exacerbation (Acute) Diastolic CHF, acute on chronic (Acute) CVA (cerebral vascular accident) (Resolved) CVA (cerebral vascular accident) (Resolved) History of GI bleeding (Resolved) 1. Acute kidney injury on chronic kidney disease stage 3. baseline SCr is 1.3 mg/dL. TANJA is prerenal, Maik is 10 mmol/L. Suspect she became volume depleted with diuresis (was on torsemide and metolazone) and poor intake. SCr is better Low suspicion for other causes of TANJA at this time. Recheck SCr in am. 2. Hyponatremia. sodium is acceptable 3. Hyperkalemia. Due to TANJA on CKD, hyperglycemia and pt was on KCl at home. Hyperkalemia has corrected. now K is low again. may need to go back on supplements
[2018-10-20 16:16] LABS: Bedside Glucose 251 mg/dL (70-110)
[2018-10-20 16:31] LABS: Bedside Glucose 208 mg/dL (70-110)
--- NOTE | 2018-10-20 17:29 | EKG12_ITS ---
Test Reason : Blood Pressure : / mmHG Vent. Rate : 148 BPM Atrial Rate : 147 BPM P-R Int : 000 ms QRS Dur : 144 ms QT Int : 332 ms P-R-T Axes : 000 144 -28 degrees QTc Int : 521 ms Wide QRS tachycardia : consider sinus tachycardia vs atrial tachycardia/flutter with 2:1 AV conductio n Right bundle branch block Abnormal ECG Confirmed by HARMAN GAMBOA, DEVIN ([id number]), image editor MONA NGO ([id number] on 10/24/2018 9:19:03 AM Referred By: Vivek Li Confirmed By:DEVIN HAMMER MD
[2018-10-20] MEDS: Metoprolol Tartrate 5 MG/5 ML Vial IV (18:34)
--- NOTE | 2018-10-20 19:25 | NURSING ---
Informed nightshift RN that patient's troponin was 0.075. Hospitalist had note been updated yet.
[2018-10-20] MEDS: proMETHazine 25 MG Tablet PO (19:49)
[2018-10-20] MEDS: Metoprolol Tartrate 50 MG Tablet PO (21:54)
[2018-10-20] MEDS: Aspirin 325 MG Tablet PO (21:54)
[2018-10-20] MEDS: traZODone 100 MG Tablet PO (21:55)
[2018-10-20 22:26] LABS: Bedside Glucose 130 mg/dL (70-110)
[2018-10-21] VITALS (24 sets, daily range): BP systolic 77–125; BP diastolic 51–71; PULSE 90–115; RESP 15–22; TEMP 36.4–37.1; O2SAT 93–100
[2018-10-21] MEDS: morphine (oral solution) 10MG/0.5ML Syringe 5 MG SL ×3 (01:53→21:00)
[2018-10-21 04:48] LABS: Hemoglobin 8.9 g/dL (12.0-15.0); Mean Corp Hgb Conc 28.7 g/dL (32-36); Mean Corpuscular Hgb 22.8 pg (27.0-32.0); Mean Corpuscular Volume 79.3 fL (81-99); POSITIVE COUNT YES; POSITIVE DIFFERENTIAL YES; POSITIVE MORPHOLOGY YES; Platelet Count 386 K/mm3 (150-450); RBC Distribution Width CV 19.9 % (11.6-14.6); RBC Distribution Width SD 55.6 fl (35.1-43.9); Red Blood Count 3.91 M/mm3 (4.2-5.4); White Blood Count 17.7 K/mm3 (4.4-11.0)
[2018-10-21 04:51] LABS: Differential Indicated MANUAL DIFF
[2018-10-21 05:22] LABS: Anion Gap 9 (5-15); BUN 51 mg/dL (7-18); BUN/Creat Ratio 44.3 RATIO (10-20); Calcium,Total 8.5 mg/dL (8.5-10.1); Chloride 94 mmol/L (98-107); Creatinine, Serum 1.15 mg/dL (0.55-1.02); EST Glomerular Filtration Rate 50 mL/min (>60); Est Glom Filt Rate - Afr Amer 60 mL/min (>60); Estimated Creatinine Clearance 37.65 ml/min; Glucose 124 mg/dL (74-106); Potassium 2.7 mmol/L (3.5-5.1); Sodium Level 136 mmol/L (136-145)
[2018-10-21] MEDS: Potassium Chloride 10mEq/100mL 10 MEQ/100 ML IV.SOLN. 100 MEQ IV BOLUS ×4 (06:05→12:08)
[2018-10-21] MEDS: Heparin Injection (Vial) 5,000 UNIT/ML VIAL 5000 UNIT SC ×3 (06:08→21:11)
[2018-10-21 06:09] LABS: Eosinophil 2 % (0-5); Lymphocyte 8 % (19-41); Metamyelocyte 3 % (0-1); Monocyte 8 % (0-10); Neutrophil-Band 2 % (0-5); Neutrophil-Segmented 77 % (47-70); Total Cells Counted 100 (MANUAL DIFF)
[2018-10-21 06:11] LABS: Absolute Lymphocyte Count 1.42 X10^3/uL (0.83-4.51); Absolute Neutrophil Count 14.5 X10^3/uL (2.0-7.7); Lymphocyte # 1.42 X10^3/ul (4.0); Neutrophil # 14.51 X10^3/uL (2.7-7.7)
[2018-10-21 06:12] LABS: Anisocytosis 1+; Magnesium 2.3 mg/dL (1.6-2.6); Microcytosis 1+; Platelet Estimate ADEQUATE (ADEQ); Polychromasia 1+
[2018-10-21 06:13] LABS: Hypochromasia 2+
[2018-10-21] MEDS: Acetaminophen 325 MG Tablet 650 MG PO (06:54)
[2018-10-21 07:05] LABS: Bedside Glucose 134 mg/dL (70-110)
--- NOTE | 2018-10-21 07:31 | NURSING ---
Charting of SN Laura reviewed and signed off on by this RN.
[2018-10-21] MEDS: Aspirin 81 MG TAB.CHEW PO (07:57)
[2018-10-21] MEDS: Escitalopram Oxalate 10 MG Tablet PO (10:12)
[2018-10-21] MEDS: Metoprolol Tartrate 25 MG Tablet PO (10:12)
[2018-10-21] MEDS: Senna/Docusate Sodium 1 Tablet 2 TABLET PO (10:13)
[2018-10-21] MEDS: Insulin Lispro 100 UNIT/ML INSULN.PEN SC ×3 (11:14→21:11)
[2018-10-21] MEDS: Insulin Lispro 100 UNIT/ML INSULN.PEN 10 UNIT SC ×2 (11:14→15:57)
[2018-10-21 11:30] LABS: Bedside Glucose 288 mg/dL (70-110)
--- NOTE | 2018-10-21 12:46 | PCM.PN.REN ---
Patient Problems: Active and Suspected Problems (Last Updated 09/02/18 @ 14:[address]) Complicated UTI (urinary tract infection) (Acute) Severe hyperglycemia due to diabetes mellitus (Acute) Hyperkalemia, diminished renal excretion (Acute) Physical debility (Acute) Generalized weakness (Acute) Recurrent falls (Acute) Subjective: no new complaints - Physical Exam General: Alert, Oriented x3, Cooperative HEENT: Atraumatic, PERRLA, EOMI, Normocephalic Neck: Supple, No JVD, Negative Carotid Bruits Lungs: Clear to auscultation, Normal air movement Cardiovascular: Regular rate, No murmurs Abdomen: Bowel Sounds Present, Soft, Non Tender Extremities: No edema, Capillary Refill Less than 3 Seconds Skin: No rashes, No breakdown Musculoskeletal: No Tenderness to Palpation of Joints or Extremities Neurological: Cranial nerves II-XII grossly intact Psych/Mental Status: Normal Affect, Appropriate Vital Signs Temp Pulse Resp BP Pulse Ox 98.0 F 97 20 H 119/69 96 10/21/18 08:00 10/21/18 10:12 10/21/18 08:00 10/21/18 10:12 10/21/18 08:30 Oxygen Flow Rate (L/min) 2 Oxygen Delivery Method Nasal Cannula Weight: 118.4 kg Body Mass Index (BMI) 45.8 Finger Stick Blood Glucose 478 Intake and Output for Last 24 Hours 10/19/18 10/20/18 10/21/18 23:59 23:59 23:59 Intake Total 5313 / 5433 1320.9 / 1320.9 507 / 507 Output Total 1650 / 2250 1850 / 1850 Balance 3663 / 3183 -529.1 / -529.1 507 / 507 Microbiology Past 72 Hours 10/18/18 15:58 Urine Culture - Final Urine Catheter - Catheter Citrobacter freundii Laboratory Tests Past 24 Hrs 10/20/18 10/20/18 10/21/18 18:38 20:48 01:17 WBC RBC Hgb Hct MCV MCH MCHC RDW Std Deviation RDW [employer] [place] Plt Count MPV Neut % (Auto) Absolute Neuts (auto) Absolute Lymphs (auto) Total Counted Neutrophils % (Manual) Band Neutrophils % Lymphocytes % (Manual) Monocytes % (Manual) Eosinophils % (Manual) Metamyelocytes % Diff Path Review Platelet Estimate Polychromasia Hypochromasia Anisocytosis Microcytosis Sodium Potassium Chloride Carbon Dioxide Anion Gap BUN Creatinine Estim Creat Clear Calc Est GFR (MDRD) Af Amer Est GFR (MDRD) Non-Af BUN/Creatinine Ratio Glucose Calcium Magnesium Troponin I 0.075 H 0.107 H 0.313 H 10/21/18 10/21/18 10/21/18 04:30 04:30 04:30 WBC 17.7 H RBC 3.91 L Hgb 8.9 L Hct 31.0 L MCV 79.3 L MCH 22.8 L MCHC 28.7 L RDW Std Deviation 55.6 H RDW [employer] [place] 19.9 H Plt Count 386 MPV 9.0 Neut % (Auto) Not Reportable Absolute Neuts (auto) 14.5 H Absolute Lymphs (auto) 1.42 Total Counted 100 Neutrophils % (Manual) 77 H Band Neutrophils % 2 Lymphocytes % (Manual) 8 L Monocytes % (Manual) 8 Eosinophils % (Manual) 2 Metamyelocytes % 3 H Diff Path Review May foll Platelet Estimate ADEQUATE Polychromasia 1+ Hypochromasia 2+ Anisocytosis 1+ Microcytosis 1+ Sodium 136 Potassium 2.7 L* Chloride 94 L Carbon Dioxide 33.0 H Anion Gap 9 BUN 51 H Creatinine 1.15 H Estim Creat Clear Calc 37.65 Est GFR (MDRD) Af Amer 60 Est GFR (MDRD) Non-Af 50 L BUN/Creatinine Ratio 44.3 H Glucose 124 H Calcium 8.5 Magnesium 2.3 Troponin I 0.353 H 10/21/18 10/21/18 07:20 10:05 WBC RBC Hgb Hct MCV MCH MCHC RDW Std Deviation RDW [employer] [place] Plt Count MPV Neut % (Auto) Absolute Neuts (auto) Absolute Lymphs (auto) Total Counted Neutrophils % (Manual) Band Neutrophils % Lymphocytes % (Manual) Monocytes % (Manual) Eosinophils % (Manual) Metamyelocytes % Diff Path Review Platelet Estimate Polychromasia Hypochromasia Anisocytosis Microcytosis Sodium Potassium Chloride Carbon Dioxide Anion Gap BUN Creatinine Estim Creat Clear Calc Est GFR (MDRD) Af Amer Est GFR (MDRD) Non-Af BUN/Creatinine Ratio Glucose Calcium Magnesium Troponin I 0.421 H 0.414 H POC Glucose 10/21/18 10/21/18 10/20/18 11:10 06:57 22:01 POC Glucose 288 H 134 H 130 H 10/20/18 10/20/18 16:27 13:45 POC Glucose 208 H 251 H Medical Necessity - Tobacco Use Smoking Status: Former smoker Assessment/Plan All Active Problems (Last Updated 09/02/18 @ 14:[address]) Complicated UTI (urinary tract infection) (Acute) Severe hyperglycemia due to diabetes mellitus (Acute) Hyperkalemia, diminished renal excretion (Acute) Physical debility (Acute) Generalized weakness (Acute) Recurrent falls (Acute) Acute respiratory failure with hypoxia and hypercapnia (Acute) Elevated troponin I level (Acute) Hyperglycemia due to type 2 diabetes mellitus (Acute) Acute encephalopathy (Acute) COPD exacerbation (Acute) Diastolic CHF, acute on chronic (Acute) CVA (cerebral vascular accident) (Resolved) CVA (cerebral vascular accident) (Resolved) History of GI bleeding (Resolved) 1. Acute kidney injury on chronic kidney disease stage 3. baseline SCr is 1.3 mg/dL. TANJA is prerenal, Maik is 10 mmol/L. Suspect she became volume depleted with diuresis (was on torsemide and metolazone) and poor intake. SCr is better 2. Hyponatremia. sodium is acceptable 3. Hyperkalemia. Due to TANJA on CKD, hyperglycemia and pt was on KCl at home. Hyperkalemia has corrected. Now k is low. repletion ordered
[2018-10-21 13:37] LABS: Pathologist Review Reviewed
--- NOTE | 2018-10-21 14:16 | PN_ITS ---
Patient Problems: Active and Suspected Problems (Last Updated 09/02/18 @ 14:[address]) Complicated UTI (urinary tract infection) (Acute) Severe hyperglycemia due to diabetes mellitus (Acute) Hyperkalemia, diminished renal excretion (Acute) Physical debility (Acute) Generalized weakness (Acute) Recurrent falls (Acute) Subjective: Doing well overnight, denies any chest pain, he has pain relief in her feet from the Roxanol Objective: General: Alert, Oriented x3, Cooperative, No apparent distress HEENT: Atraumatic, PERRLA, EOMI, Normocephalic Oral: Moist Mucosa Neck: Supple, No JVD Lungs: Clear to auscultation, No rhonchi, No wheeze, No rales, Diminished, - - Poor air movement Cardiovascular: Regular rate, Regular Rhythm, Murmur - 2 out of 6 AYUSH Abdomen: Soft, Non Tender, Non-Distended, No Hepato-splenomegaly, Obese Extremities: Capillary Refill Less than 3 Seconds, Edema - Bilateral lower extremity edema currently wrapped Skin: No rashes, No breakdown Neurological: Neuro grossly intact, Sensory exam intact to light touch and pain Psych/Mental Status: Normal Affect, Appropriate Vitals/I&O's: Vital Signs Temp Pulse Resp BP Pulse Ox 98.1 F 98 20 H 116/58 L 96 10/21/18 12:00 10/21/18 12:00 10/21/18 12:00 10/21/18 12:00 10/21/18 12:00 Oxygen Flow Rate (L/min) 2 Oxygen Delivery Method Nasal Cannula Weight: 261 lb 0.437 oz Body Mass Index (BMI) 45.8 Finger Stick Blood Glucose 478 Intake and Output for Last 24 Hours 10/19/18 10/20/18 10/21/18 23:59 23:59 23:59 Intake Total 5313 / 5433 1320.9 / 1320.9 1977 Output Total 1650 / 2250 1850 / 1850 Balance 3663 / 3183 -529.1 / -529.1 1977 Microbiology Past 72 Hours 10/18/18 17:00 Blood Culture (Wb) - Anticubital Left Blood Culture - Preliminary No growth in 48 hours. 10/18/18 17:00 Blood Culture (Wb) - Right Hand Blood Culture - Preliminary No growth in 48 hours. 10/18/18 15:58 Urine Catheter - Catheter Urine Culture - Final Citrobacter freundii Laboratory Results 10/20/18 13:45: POC Glucose 251 H 10/20/18 16:27: POC Glucose 208 H 10/20/18 18:38: Troponin I 0.075 H 10/20/18 20:48: Troponin I 0.107 H 10/20/18 22:01: POC Glucose 130 H 10/21/18 01:17: Troponin I 0.313 H 10/21/18 04:30: WBC 17.7 H, RBC 3.91 L, Hgb 8.9 L, Hct 31.0 L, MCV 79.3 L, MCH 22.8 L, MCHC 28.7 L, RDW Std Deviation 55.6 H, RDW [place]eff of [place] 19.9 H, Plt Count 386, MPV 9.0, Neut % (Auto) Not Reportable, Absolute Neuts (auto) 14.5 H, Absolute Lymphs (auto) 1.42, Total Counted 100, Neutrophils % (Manual) 77 H, Band Neutrophils % 2, Lymphocytes % (Manual) 8 L, Monocytes % (Manual) 8, Eosinophils % (Manual) 2, Metamyelocytes % 3 H, Diff Path Review Reviewed, Platelet Estimate ADEQUATE, Polychromasia 1+, Hypochromasia 2+, Anisocytosis 1+, Microcytosis 1+ 10/21/18 04:30: Sodium 136, Potassium 2.7 L*, Chloride 94 L, Carbon Dioxide 33.0 H, Anion Gap 9, BUN 51 H, Creatinine 1.15 H, Estim Creat Clear Calc 37.65, Est GFR (MDRD) Af Amer 60, Est GFR (MDRD) Non-Af 50 L, BUN/Creatinine Ratio 44.3 H, Glucose 124 H, Calcium 8.5, Troponin I 0.353 H 10/21/18 04:30: Magnesium 2.3 10/21/18 06:57: POC Glucose 134 H 10/21/18 07:20: Troponin I 0.421 H 10/21/18 10:05: Troponin I 0.414 H 10/21/18 11:10: POC Glucose 288 H Current Medications Acetaminophen (Tylenol) 650 mg PO Q6H PRN PRN PRN Reason: Mild Pain (1-3)/Temp > 100.7 F Last Admin: 10/21/18 06:54 Dose: 650 mg Documented by: Al Hydroxide/Mg Hydroxide (Mylanta Ii) 30 ml PO Q4H PRN PRN PRN Reason: INDIGESTION Last Admin: 10/20/18 16:55 Dose: 30 ml Documented by: Albuterol Sulfate (Ventolin Aerosols) 2.5 mg INHALATION Q2H PRN PRN PRN Reason: Shortness of Breath/Wheezing Albuterol Sulfate (Ventolin Aerosols) 2.5 mg INHALATION Q6HWA.RT [facility] Last Admin: 10/21/18 13:17 Dose: Not Given Documented by: Aspirin (Aspirin, Baby) 81 mg PO DAILY@0800 [facility] Last Admin: 10/21/18 07:57 Dose: 81 mg Documented by: Budesonide (Pulmicort Aerosol) 0.5 mg INHALATION Q12H.RT [facility] Last Admin: 10/21/18 13:16 Dose: Not Given Documented by: Dexamethasone (Decadron) 1 mg PO DAILY@0800 [facility] Last Admin: 10/21/18 08:13 Dose: 1 mg Documented by: Dextrose (D50w Syringe) 0 gm IV X1 PRN; Protocol PRN Reason: Hypoglycemia Escitalopram Oxalate (Lexapro) 10 mg PO DAILY [facility] Last Admin: 10/21/18 10:12 Dose: 10 mg Documented by: Glucagon () 1 mg IM .X1 PRN PRN Reason: Hypoglycemia Heparin Sodium (Porcine) (Heparin Na) 5,000 unit SC Q8 [facility] Last Admin: 10/21/18 06:08 Dose: 5,000 unit Documented by: Ceftriaxone Sodium 2 gm/ (Sodium Chloride) 50 mls @ 100 mls/hr IV Q24 [facility] Last Admin: 10/21/18 10:03 Dose: 100 mls/hr Documented by: Insulin Glargine (Lantus (Bkc)) 30 units SC DINNER [facility] Last Admin: 10/20/18 17:12 Dose: 30 u Documented by: Insulin Human Lispro (Humalog Kwikpen (Bkc)) 10 unit SC TIDAC [facility] Last Admin: 10/21/18 11:14 Dose: 10 u Documented by: Insulin Human Lispro (Humalog Kwikpen (Bkc)) 0 unit SC ACHS [facility]; Protocol Last Admin: 10/21/18 11:14 Dose: 4 u Documented by: Lorazepam (Ativan) 0.5 mg PO DAILY PRN PRN Reason: anxiety Last Admin: 10/20/18 11:13 Dose: 0.5 mg Documented by: Metoprolol Tartrate (Lopressor (Beta Jefefry)) 5 mg IV Q10M PRN PRN PRN Reason: For HR > 120 Metoprolol Tartrate (Lopressor (Beta Jeffery)) 25 mg PO BID [facility] Last Admin: 10/21/18 10:12 Dose: 25 mg Documented by: Morphine Sulfate (Roxanol (Ir Oral Solution)) 5 mg SL Q6H PRN PRN Reason: PAIN Last Admin: 10/21/18 07:56 Dose: 5 mg Documented by: Polyethylene Glycol (Miralax) 17 gm PO DAILY PRN PRN PRN Reason: Constipation Polyethylene Glycol (Miralax) 34 gm PO X1 PRN PRN Reason: Bowel Movement Promethazine HCl (Phenergan Tablet) 25 mg PO Q6H PRN PRN PRN Reason: NAUSEA/VOMITING Last Admin: 10/20/18 19:49 Dose: 25 mg Documented by: Senna/Docusate Sodium (Senokot-S, Rhina-Colace) 2 tablet PO BID [facility] Last Admin: 10/21/18 10:13 Dose: 2 tablet Documented by: Sodium Chloride () 10 - 40 ml IV UD PRN PRN Reason: SALINE FLUSH Last Admin: 10/20/18 23:54 Dose: 10 ml Documented by: Trazodone HCl (Desyrel) 100 mg PO QHS PRN PRN PRN Reason: SLEEP Last Admin: 10/20/18 21:55 Dose: 100 mg Documented by: Medical Necessity - Tobacco Use Smoking Status: Former smoker Assessment/Plan All Active Problems (Last Updated 09/02/18 @ 14:[address]) Complicated UTI (urinary tract infection) (Acute) Severe hyperglycemia due to diabetes mellitus (Acute) Hyperkalemia, diminished renal excretion (Acute) Physical debility (Acute) Generalized weakness (Acute) Recurrent falls (Acute) Acute respiratory failure with hypoxia and hypercapnia (Acute) Elevated troponin I level (Acute) Hyperglycemia due to type 2 diabetes mellitus (Acute) Acute encephalopathy (Acute) COPD exacerbation (Acute) Diastolic CHF, acute on chronic (Acute) CVA (cerebral vascular accident) (Resolved) CVA (cerebral vascular accident) (Resolved) History of GI bleeding (Resolved) 1. TANJA/CKD 3/hyponatremia and hyperkalemia/acute on chronic iron deficiency anemia -Her TANJA has resolved with IV fluids -Appreciate nephrology assistance -Hyponatremia and hyperkalemia have also resolved, hyponatremia was likely secondary to hyperglycemia and dehydration -She developed hypokalemia and was replaced with 100 mEq today, a potassium recheck is pending -Creatinine is now back to baseline of 1.1-1.2 -She does have a history of GI AVM and a history of GI bleeding, fecal occult blood sample is pending 2. Complicated UTI -White count is improving with IV Rocephin -Culture positive for Citrobacter, it is sensitive to Cipro which we can transition to on discharge -Day 3 of IV Rocephin 3. Chronic hypoxic respiratory failure/COPD/pulmonary hypertension/chronic diastolic heart failure/moderate to severe aortic stenosis/HTN/HLD?elevated troponin -She is stable on her 6 L nasal cannula which she is on at home, she was able to be weaned down to 2 L to maintain her sats in the mid 90s -BNP on admission was 347 though this can be secondary to her acute kidney injury -We will plan on resuming diuretics tomorrow with the okay by nephrology -Continue with metoprolol, simvastatin -Continue with her home inhalers -Her elevation in troponin is likely secondary to demand ischemia from her tachycardia developed yesterday. She has responded to the metoprolol as needed that was given yesterday evening, also her last nighttime dose was at 50 mg p.o. did consult cardiology for evaluation since she has significant cardiac history including moderate to severe aortic stenosis and pulmonary hypertension -She had a fairly unremarkable cardiac cath in January 2018 4. Poorly controlled DM 2/morbid obesity -A1c is 10.2, continue with long-acting insulin as well as sliding scale insulin -Accu-Cheks AC at bedtime -Glipizide at home which we will hold, she is on Lantus 20 units daily at home 5. GERD -Stable -Continue with PPI 6. Anxiety/depression -Stable -Tinea with Lexapro 7. Morbid obesity -Complicates her care and had a long discussion with her on lifestyle modifications 8. Chronic debility -Was on hospice previously and she revoked that to come to the hospital -We will obtain PT/OT for evaluation -For discharge to a [place] [facility] facility DVT: Heparin Code Visit Inpatient E&M: 85098 Subs Hosp L2
--- NOTE | 2018-10-21 14:50 | CASEMGMT ---
Patient will likely be discharged to [place] tomorrow. ANTONIO called Rema at [facility] and left her a message letting her know. Chey AGUIRRE MSW
--- NOTE | 2018-10-21 15:18 | CON.PCM_ITS ---
Problem List (1) Abnormal cardiac enzyme level Status: Acute (2) CAD in [place] artery Status: Chronic (3) Nonrheumatic aortic (valve) stenosis Status: Chronic (4) Chronic diastolic (congestive) heart failure Status: Chronic (5) Pulmonary hypertension Status: Chronic (6) Pure hypercholesterolemia Status: Chronic (7) Essential hypertension Status: Chronic (8) Morbid obesity Status: Chronic (9) Anemia Status: Chronic Qualifiers: Anemia type: iron deficiency Iron deficiency anemia type: chronic blood loss Qualified Code(s): D50.0 - Iron deficiency anemia secondary to blood loss (chronic) (10) Acute kidney injury superimposed on chronic kidney disease Status: Chronic (11) Hyperkalemia, diminished renal excretion Status: Acute (12) Edema Status: Chronic Qualifiers: Edema type: localized Qualified Code(s): R60.0 - Localized edema Reason for Consult Date of Consultation: 10/21/18 History of Present Illness: The patient is a 68 year old white female with a past cardiovascular history which has included underlying NAJ-gey-qgomsyglzbnvadsp significant, aortic valve stenosis, chronic diastolic mediated CHF, pulmonary hypertension, hyperlipidemia, hypertension, orbit obesity, who is undergoing evaluation care for anemia, acute on chronic renal insufficiency, and hyperkalemia. She has been having progressive weakness/fatigue as well as shortness of breath/dyspnea superimposed upon her lower extremity peripheral pitting edema. She has been under hospice care but relinquished hospice care to present to the hospital for further evaluation. She was found to have concerns of her chronic complex cardiovascular condition but also concerns of anemia and acute on chronic renal insufficiency and hyperkalemia. During her evaluation her diuretic therapy has been placed on hold and her hyperkalemia has been treated. She is now noted to be hypokalemic and is requiring potassium supplement. She has denied ongoing chest discomfort. She has had her chronic shortness of breath and dyspnea as well as her chronic lower extremity peripheral pitting edema. However, she states her lower extremity peripheral pitting edema is somewhat improved compared to before. She has had no near syncope or syncope but she has had accidental falls leading to bilateral facial ecchymoses. During her hospitalization she was noted to develop evidence of underlying tachydysrhythmia. Based upon her review of her cardiac rhythm strips and her ECG there is concern that she had an underlying sinus tachycardia with her underlying right bundle branch block pattern although other cardiac dysrhythmia such as an atrial tachycardia and/or flutter with a 2-1 AV conduction based upon a ventricular rate of approximately 50 bpm cannot be totally excluded. She was treated with IV beta-lorena and had slowing of her rate demonstrating sinus rhythm/sinus tachycardia. She has subsequently gone on to have additional cardiovascular studies performed including cardiac enzymes. Her troponin I levels have been indeterminant. They have increased and decreased. She is continuing medical therapy. She states she is pending transfer to an extended care facility. She is then considering reenrollment in hospice care. [] Past Medical History Allergies/Adverse Reactions: Allergies No Known Allergies Allergy (Verified 09/08/18 13:48) Home Medications: Ambulatory Orders Medication Instructions Recorded Simvastatin [Zocor] 20 mg PO QHS 01/15/14 Escitalopram Oxalate [Lexapro] 10 mg PO DAILY 06/29/15 traZODone [Desyrel] 100 mg PO QHS PRN PRN 06/29/15 Budesonide/Formoterol Fumarate 2 puff IH BID 03/27/17 [Symbicort 160-4.5 Mcg Inhaler] Fluticasone 0.05% [Flonase Nasal 1 spray NASAL BID PRN 04/24/17 [place]] Acetaminophen [Tylenol Tablet] 650 mg PO Q6H PRN PRN tab 06/10/17 Albuterol Sulfate [Ventolin Hfa] 1 - 2 puff INHALATION PRN PRN 01/02/18 Ipratropium/Albuterol Sulfate 3 ml INHALATION Q4H PRN 04/01/18 [Duoneb] lorazepam 0.5 mg tablet 0.5 mg PO DAILY PRN 5 Days #5 tab 06/03/18 morphine concentrate 100 mg/5 mL 5 mg SUBLINGUAL 7 Days ml 06/03/18 (20 mg/mL) oral solution Metoprolol Tartrate [Lopressor 25 mg PO BID 06/20/18 (beta lorena)] metolazone 2.5 mg tablet 2.5 mg PO .COMPLEX 07/03/18 glipizide 5 mg tablet 5 mg PO BID 09/08/18 insulin glargine (U-100) 100 20 unit SC DAILY 09/08/18 unit/mL (3 mL) subcutaneous pen omeprazole magnesium 20 mg 20 mg PO DAILY 09/08/18 tablet,delayed release promethazine 25 mg tablet 25 mg PO Q6H 09/08/18 sennosides 8.6 mg tablet 8.6 mg PO BID 09/08/18 potassium chloride ER 20 mEq 40 meq PO DAILY 90 Days #180 tab 09/17/18 tablet,extended release(part/cryst) Dexamethasone [Decadron] 2 mg PO DAILY 10/18/18 Torsemide 20 mg PO BID 10/18/18 Past Medical History (Chronic Problems): Chronic Problems (Last Updated 09/02/18 @ 14:[address]) Acute kidney injury superimposed on chronic kidney disease (Chronic) 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) CAD in [place] artery (Chronic) Edema (Chronic) Type 2 diabetes mellitus (Chronic) Nonrheumatic aortic (valve) stenosis (Chronic) Pure hypercholesterolemia (Chronic) Essential hypertension (Chronic) COPD with acute exacerbation (Chronic) Respiratory failure (Chronic) Depression (Chronic) Morbid obesity (Chronic) Pulmonary hypertension (Chronic) CKD stage 3 secondary to diabetes (Chronic) Chronic diastolic (congestive) heart failure (Chronic) Cerebral infarction, unspecified (Chronic) Palpitations (Chronic) Anxiety (Chronic) Left atrial enlargement (Chronic) Hypersomnia (Chronic) Anemia (Chronic) Carotid artery stenosis (Chronic) Chronic hypoxemic respiratory failure (Chronic) Pulmonary fibrosis (Chronic) 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 3 severe COPD by GOLD classification (Chronic) Pulmonary hypertension (Chronic) With PA pressures 55 by cardiac catheterization 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) Surgical History: herniorrhaphy, hysterectomy Psychiatric History: Anxiety, Depression 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 Denies: Fever, Fatigue, Night Sweats Cardiovascular: Reports: Shortness of Breath, Shortness of Breath at Rest, Shortness of Breath with Exertion, Peripheral Edema Respiratory: Reports: Shortness of Breath. Denies: Cough, Sputum Production, Hemoptysis Gastrointestinal: Denies: Hematemesis, Hematochezia, Melena Genitourinary: Denies: Dysuria, Hematuria Skin: Denies: Rash Objective: Vital Signs Temp Pulse Resp BP Pulse Ox 98.1 F 98 20 H 116/58 L 94 10/21/18 12:00 10/21/18 12:00 10/21/18 12:00 10/21/18 12:00 10/21/18 14:53 Oxygen Flow Rate (L/min) 2 Oxygen Delivery Method Nasal Cannula Weight: 261 lb 0.437 oz Body Mass Index (BMI) 45.8 Finger Stick Blood Glucose 478 Intake and Output for Last 24 Hours 10/19/18 10/20/18 10/21/18 23:59 23:59 23:59 Intake Total 5313 / 5433 1320.9 / 1320.9 1977 Output Total 1650 / 2250 1850 / 1850 Balance 3663 / 3183 -529.1 / -529.1 197710/20/18 18:38: Troponin I 0.075 H 10/20/18 20:48: Troponin I 0.107 H 10/21/18 01:17: Troponin I 0.313 H 10/21/18 04:30: WBC 17.7 H, RBC 3.91 L, Hgb 8.9 L, Hct 31.0 L, MCV 79.3 L, MCH 22.8 L, MCHC 28.7 L, Plt Count 386, MPV 9.0, Neut % (Auto) Not Reportable, Absolute Neuts (auto) 14.5 H, Total Counted 100, Neutrophils % (Manual) 77 H, Band Neutrophils % 2, Lymphocytes % (Manual) 8 L, Monocytes % (Manual) 8, Eosinophils % (Manual) 2, Metamyelocytes % 3 H 10/21/18 04:30: Sodium 136, Potassium 2.7 L*, Chloride 94 L, Carbon Dioxide 33.0 H, Anion Gap 9, BUN 51 H, Creatinine 1.15 H, Est GFR (MDRD) Af Amer 60, Est GFR (MDRD) Non-Af 50 L, BUN/Creatinine Ratio 44.3 H, Glucose 124 H, Calcium 8.5, Troponin I 0.353 H 10/21/18 04:30: Magnesium 2.3 10/21/18 07:20: Troponin I 0.421 H 10/21/18 10:05: Troponin I 0.414 H Rhythm: Sinus rhythm/sinus tachycardia EKG: Sinus rhythm/right bundle branch block pattern ECHO: [facility]: 01-22-18: Left ventricle reported normal with respect to systolic function with an estimated LVEF of 66%; biatrial enlargement; moderate to severe aortic valve stenosis Cardiac Cath: [facility]: 06-07-17 CORONARY ANGIOGRAPHY DOMINANCE: Right Dominant LEFT HEART ASSESSMENT Left Ventricular Ejection Fraction: by LV Gram 55 % Normal LV wall motion Normal Left Ventricular systolic function RIGHT HEART ASSESSMENT Thermal CO: 6.52 Thermal CI: 3.03 Be CO: 6.59 Be CI: 3.07 PW: 32/29 30 PA: 62/31 43 RV: 63/17 20 RA: PVR: 160 SVR: 908 Aortic Valve Area: 1.36 Aortic Valve Index: 0.63 Aortic Valve Mean Gradient: 22.7 Right Heart pressures - elevated LEFT MAIN: Angiographically normal, short vessel LEFT ANTERIOR DECENDING ARTERY: Mild luminal irregularities CIRCUMFLEX ARTERY: Mild luminal irregularities RIGHT CORONARY ARTERY: Mild luminal irregularities VALVE FINDINGS: Mild aortic stenosis [facility]: 01-27-18 Summary: Nonobstructive CAD (mild luminal irregularities) Mild mitral valve stenosis/mild aortic valve stenosis Severe pulmonary hypertension with right-sided pressures out of proportion to left-sided pressures Please see official report CXR: Reported as demonstrating atelectasis with no acute cardiopulmonary disease process Assessment/Plan 1. Abnormal cardiac enzymes The patient's troponin I levels have been indeterminant. They have increased and decreased. At the present time, status post review the patient's clinical course and her previous objective studies including her diagnostic cardiac catheterization from [facility] from 06-07-17 and [facility] from 01-27-18 it appears the patient has been document is having no angiographically significant appearing CAD and thus her troponin I levels are concerning for an underlying supply demand mismatch type II event intentionally brought out by the patient's underlying pulmonary disease process, anemia, tachycardia, etc. At the present time the patient remains without acute symptoms. She remains in sinus rhythm. Her ECG is demonstrated no additional acute ECG changes. The patient will continue medical management. This will include agents such as antiplatelet therapy as able, nitrates as needed, beta-blockers, lipid-lowering agents, etc. It was not felt the patient required additional cardiac diagnostic studies, including return trip to the cardiac catheterization laboratory, at this time. 2. CAD The patient has been diagnosed with CAD. Is been described as having nonobstructive CAD with mild luminal irregularities. The patient should continue risk factor evaluation care and medical management as deemed appropriate. This will include agents, as noted above, such as antiplatelet therapy as able, nitrates as needed, beta-blockers, lipid-lowering agents, etc. Again it was not felt patient required additional diagnostic studies or therapeutic intervention at this time. 3. Valvular heart disease/aortic valve stenosis The patient has had noninvasive and invasive evaluation of her valvular heart disease/aortic valve stenosis in the past. There is been discrepancies between her noninvasive studies and invasive studies. She has been evaluated by [facility]. They have chosen not to perform additional diagnostic studies or therapeutic intervention with respect to her underlying aortic valve stenosis. At the present time it be recommended she be followed with respect to her valvular heart disease as deemed appropriate. She will continue conservative medical management for her multiple issues. She is not scheduled for any additional diagnostic studies or therapeutic intervention at this time. 4. Chronic diastolic mediated CHF There is a concern the patient has had chronic diastolic mediated CHF. She may also have a component of pulmonary hypertension with cor pulmonale and right heart failure. At the present time she will need to continue conservative medical management. When she is able, after her renal function, electrolytes, etc. stabilize she will most likely need to return to some combination of diuretic therapy. 5. Pulmonary hypertension Again she is been evaluated for such. She has had significant pulmonary hypertension which is described as her right-sided pressures being out of proportion to her left-sided pressures. Thus she needs continue evaluation care per internal medicine and pulmonology as deemed appropriate. She has had medical management and O2 support. 6. Hyperlipidemia She should return to risk factor modification medical therapy with lipid- lowering therapy when she is able. 7. Hypertension Her medications can be adjusted to assist with blood pressure control. 8. Morbid obesity Unfortunately she remains morbidly obese. This is despite her reported best efforts at dietary therapy, etc. 9. Anemia She does need continued evaluation care for her anemia. Hopefully she will be able to resume medical management such as aspirin therapy at some point in time in the future. 10. Acute on chronic renal insufficiency She is being evaluated by nephrology. Hopefully as her clinical status stabilizes so will her renal function. 11. Hyperkalemia She has been treated for hyperkalemia. She is now hypokalemic. She is receiving potassium supplement. Her electrolytes will need to be followed in the future as she will eventually need to return to some form of diuretic therapy with potassium supplement and follow-up of her electrolytes and her renal function, etc. 12. Edema She does have continued lower extremity peripheral pitting edema. She has been evaluated by the wound care nurses. She is wearing Ryne wraps. This is a chronic issue for her. Overall, from a cardiac standpoint, the patient will continue conservative medical management. It was felt reasonable the patient's beta-lorena dose be increased back to her previous dose of metoprolol tartrate 50 mg p.o. twice daily to assist with her cardiovascular status. When she is able she will need to resume additional medical therapy such as diuretic therapy to assist with her volume status as well as her lipid-lowering therapy to assist with her cardiovascular risks. There are no immediate plans for additional cardiac diagnostic studies or therapeutic interventions at this time. This note was generated using a voice recognition system and there may be incorrect words, spelling or punctuation that were not noted when reviewing the office note prior to saving.
[2018-10-21 16:05] LABS: Bedside Glucose 265 mg/dL (70-110)
--- NOTE | 2018-10-21 17:00 | NURSING ---
pt resistant to all education re chronic illness. She states I shouldn't have to give up everything I like. This RN had lengthy disc w/pt regarding the effects of her co-morbities on her health, consequences of ignoring the interventions aimed at improving her health, her freq hospitalizations and their link to not taking meds correctly, following diet recommendations or fluid restrictions at home. Pt indicates understanding.
[2018-10-21] MEDS: LORazepam 0.5 MG Tablet PO (18:09)
[2018-10-21] MEDS: Metoprolol Tartrate 50 MG Tablet PO (21:12)
[2018-10-21 23:20] LABS: Bedside Glucose 223 mg/dL (70-110)
[2018-10-22 02:55] VITALS: BP 114/59; PULSE 85; RESP 18; TEMP 36.5; O2SAT 96
[2018-10-22 02:59] VITALS: PULSE 87
[2018-10-22 03:00] VITALS: O2SAT 96
[2018-10-22] MEDS: Heparin Injection (Vial) 5,000 UNIT/ML VIAL 5000 UNIT SC (05:21)
[2018-10-22 06:29] LABS: Hematocrit 33.2 % (37-47); Hemoglobin 9.5 g/dL (12.0-15.0); Mean Corp Hgb Conc 28.6 g/dL (32-36); Mean Corpuscular Hgb 22.9 pg (27.0-32.0); Mean Corpuscular Volume 80.2 fL (81-99); Mean Platelet Vol. 8.9 fl (6.2-12.0); POSITIVE COUNT YES; POSITIVE DIFFERENTIAL YES; POSITIVE MORPHOLOGY YES; Platelet Count 308 K/mm3 (150-450); RBC Distribution Width CV 21.3 % (11.6-14.6); RBC Distribution Width SD 58.1 fl (35.1-43.9); Red Blood Count 4.14 M/mm3 (4.2-5.4); White Blood Count 15.5 K/mm3 (4.4-11.0)
--- NOTE | 2018-10-22 06:30 | NURSING ---
pt refusing to transfer to bed to obtain daily weight
[2018-10-22 06:31] LABS: Differential Indicated MANUAL DIFF
[2018-10-22 06:51] LABS: Basophil 1 % (0-1); Eosinophil 2 % (0-5); Lymphocyte 8 % (19-41); Metamyelocyte 1 % (0-1); Monocyte 4 % (0-10); Neutrophil-Band 1 % (0-5); Neutrophil-Segmented 83 % (47-70); Nucleated Red Bld Cells,Manual 1 % (0-5); Platelet Estimate ADEQUATE (ADEQ); Total Cells Counted 100 (MANUAL DIFF)
[2018-10-22 06:52] LABS: Anion Gap 11 (5-15); BUN 46 mg/dL (7-18); BUN/Creat Ratio 42.2 RATIO (10-20); Calcium,Total 8.7 mg/dL (8.5-10.1); Chloride 99 mmol/L (98-107); Creatinine, Serum 1.09 mg/dL (0.55-1.02); EST Glomerular Filtration Rate 53 mL/min (>60); Est Glom Filt Rate - Afr Amer 64 mL/min (>60); Estimated Creatinine Clearance 39.73 ml/min; Glucose 157 mg/dL (74-106); Potassium 3.8 mmol/L (3.5-5.1); Sodium Level 138 mmol/L (136-145); Vacuolated Cells 3+
[2018-10-22 06:56] LABS: Microcytosis 1+; Polychromasia 2+
[2018-10-22 06:57] LABS: Macrocytosis 2+
[2018-10-22 07:00] VITALS: PULSE 97
[2018-10-22 07:05] LABS: Absolute Lymphocyte Count 1.24 X10^3/uL (0.83-4.51); Lymphocyte # 1.24 X10^3/ul (4.0)
[2018-10-22 07:06] LABS: Neutrophil # 13.02 X10^3/uL (2.7-7.7)
[2018-10-22 07:08] VITALS: O2SAT 92
[2018-10-22] MEDS: proMETHazine 25 MG Tablet PO (07:50)
[2018-10-22 08:55] LABS: Bedside Glucose 203 mg/dL (70-110)
--- NOTE | 2018-10-22 09:00 | PCM.TXEXTCAR ---
- Diet 10/18/18 17:47 Diet: Renal - Carb-Controlled - Routine Orders/Code Status Routine Lab Work: [facility] Code Status: [id number]-A - Wound(s) Left foot Wound Type: Neuropathic/Diabetic Foot Ulcer Left foot (side) Wound Type: Neuropathic/Diabetic Foot Ulcer Left lower martinez Wound Type: Stasis Ulcer Dressing Change: AntiMicrobial (Aquacel AG, etc) Right lower leg Wound Type: Neuropathic/Diabetic Foot Ulcer right lateral lower leg Wound Type: Stasis Ulcer Dressing Change: AntiMicrobial (Aquacel AG, etc) rigth medial lower leg Wound Type: Stasis Ulcer Dressing Change: AntiMicrobial (Aquacel AG, etc) right dorsal foot Wound Type: Stasis Ulcer Dressing Change: AntiMicrobial (Aquacel AG, etc) left dorsal foot Wound Type: Stasis Ulcer Dressing Change: AntiMicrobial (Aquacel AG, etc) - Therapies Physical Therapy: Eval and Treat Occupational Therapy: Eval and Treat - Allergies/Procedures Done in Hospital Allergies/Adverse Reactions: Allergies No Known Allergies Allergy (Verified 09/08/18 13:48) - Type of Care/Length of Stay Estimated LOS: Convalescent Care Less Than 30 days Type of Care Needed: Skilled Rehab Potential: Good Prognosis: Good - Additional Orders/Day of Discharge Day of Discharge: 10/22/18 - Dietary and Speech Recommendations Dietitian Recommendations/Changes: Rec diet change to 1400 edilma Cardiac/low sodium w/ fluid restriction 1500 cc per day - Follow Up Care Primary Care Physician: Vic Chen MD [Primary Care Provider] - Please follow up with your Primary Care Physician in: 3-5 days
--- NOTE | 2018-10-22 09:02 | PCM.DC.SUM ---
Discharge Date and Diagnosis Date of Admission: 10/18/18 Date of Discharge: 10/22/18 - Primary Discharge Diagnosis Active and Suspected Problems (Last Updated 09/02/18 @ 14:[address]) Complicated UTI (urinary tract infection) (Acute) Severe hyperglycemia due to diabetes mellitus (Acute) Hyperkalemia, diminished renal excretion (Acute) Physical debility (Acute) Generalized weakness (Acute) Recurrent falls (Acute) Abnormal cardiac enzyme level (Acute) - Secondary Discharge Diagnosis Chronic Problems (Last Updated 09/02/18 @ 14:[address]) Acute kidney injury superimposed on chronic kidney disease (Chronic) 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) CAD in [place] artery (Chronic) Edema (Chronic) Type 2 diabetes mellitus (Chronic) Nonrheumatic aortic (valve) stenosis (Chronic) Pure hypercholesterolemia (Chronic) Essential hypertension (Chronic) COPD with acute exacerbation (Chronic) Respiratory failure (Chronic) Depression (Chronic) Morbid obesity (Chronic) Pulmonary hypertension (Chronic) CKD stage 3 secondary to diabetes (Chronic) Chronic diastolic (congestive) heart failure (Chronic) Cerebral infarction, unspecified (Chronic) Palpitations (Chronic) Anxiety (Chronic) Left atrial enlargement (Chronic) Hypersomnia (Chronic) Anemia (Chronic) Carotid artery stenosis (Chronic) Chronic hypoxemic respiratory failure (Chronic) Pulmonary fibrosis (Chronic) 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 3 severe COPD by GOLD classification (Chronic) Pulmonary hypertension (Chronic) With PA pressures 55 by cardiac catheterization 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 Otherwise relatively stable lung markings. Renal US: IMPRESSION: Mild cortical thinning of the right renal cortex. Fenestration of the liver. Gallstones. Consultations 10/18/18 17:47 Consult: Onc/Wound/lap hand tool Routine Comment: Reason for Consult:: Lower extremity wounds Cardiology Nephrology Operations: None Procedures: None Summary of Care Provided: Per HPI: The patient is a 68 year old F with multiple comorbidities including aortic stenosis, chronic diastolic congestive heart failure, chronic kidney disease, morbid obesity, type 2 diabetes, COPD, pulmonary fibrosis, pulmonary hypertension, debility and chronic respiratory failure hypoxia and on home oxygen. Also noticed that patient is in and out of hospice based on her perceived needs at the time. Long discussion had with patient about this and about the confusion it presents to caregivers. Patient was in hospice up until this afternoon when she presented to our emergency room at which time it was once again revoked. She presents with 2-week history of worsening weakness and shortness of breath. She denies any chest pain, dizziness or lightheadedness. She denies any palpitations. She has chronic lower extremity swelling which she states is actually quite improved at this time. Patient has orthopnea which is chronic. She was noted to be hyperkalemic with potassium of 7.9 and has been given a potassium depleting cocktail as well as intravenous calcium. Was also noted to have an abnormal urinalysis suggestive of infection. Hemoglobin noted to be low at 7.4 Hospital Course: 1. TANJA/CKD 3/hyponatremia and hyperkalemia/hypokalemia/acute on chronic iron deficiency [id number] female with multiple comorbidities who is known to be noncompliant presented to the hospital with 2-week history of worsening weakness and shortness of breath. She is to be on hospice however she is provoked multiple times. She does not seem to acknowledge the difficulty this presents on her own caregivers at home. She states that she thought hospice was home nursing care even though she has apparently revoked hospice prior to this episode. She presented with a creatinine of 1.99 with potassium of 7.3 and a blood sugar of 474. She was given IV fluids and nephrology was consulted to assist in treatment. She was given multiple medications to lower her potassium and then she progressed to a potassium of 2.7 and that had to be replaced. Her creatinine did return to baseline on the day of discharge. She also has chronic iron deficiency and received a dose of event of her as well as a 2 unit packed red blood cell transfusion. Her hemoglobin did drop to 6.5 and then stabilized between 8.9 and 9.5 on the day of discharge. She has a chronic history of anemia with her average hemoglobin being around to 8. Her issues were attributed to overdiuresis and dehydration, therefore she was continued on her metolazone on discharge which is 2.5 once a week, however her torsemide was decreased from twice daily to daily dosing and her creatinine and volume status is to be monitored at the half-way and can adjust her medications as necessary. She was discharged on a 1500-calorie fluid restriction, though she refused to follow that restriction here in the hospital, her sodium did improve from 121 on admission to 138 on the day of discharge. 2. Chronic hypoxic respiratory failure/COPD/pulmonary hypertension/chronic diastolic heart failure/moderate to severe aortic stenosis/HTN/HLD/elevated troponin-she is usually on 6 L nasal cannula at home however here she was able to be titrated down to almost 2 L to maintain her oxygen saturations in the mid 90s. She has a history of pulmonary hypertension and moderate to severe aortic stenosis which she is not a candidate did at this time for valve replacement. She has followed up with the [facility] in the past and they recommended medical management. Part of her difficulty is the fact that she is noncompliant with a lot of her medical therapy. She did have an elevated troponin at one point because she became tachycardic. Her troponin peaked at 0.421, and cardiology was consulted and felt that given her previous work-up and her cardiac cath which was fairly unremarkable in January 2018, she need any further work-up and to continue maximal tolerated medical therapy. 3. Poorly controlled DM 2/morbid obesity-on admission her A1c was 10.2 and we continued her long-acting insulin. At home she was on Lantus 20 units daily however we increased her to 30 and added mealtime insulin with 10 units. This will be continued as her blood sugars have been very well controlled here. Can also continue her glipizide on discharge as well. Lifestyle modifications were discussed, including dieting, to help with weight loss and to help control her diabetes. 4. Her other medical diagnoses were evaluated and her home medications were continued where appropriate Objective: General: Alert, Oriented x3, Cooperative, No apparent distress HEENT: Atraumatic, PERRLA, EOMI, Normocephalic Oral: Moist Mucosa Neck: Supple, No JVD Lungs: Clear to auscultation, No rhonchi, No wheeze, No rales, Diminished, - - Poor air movement Cardiovascular: Regular rate, Regular Rhythm, Murmur - 2 out of 6 AYUSH Abdomen: Soft, Non Tender, Non-Distended, No Hepato-splenomegaly, Obese Extremities: Capillary Refill Less than 3 Seconds, Edema - Bilateral lower extremity edema currently wrapped Skin: No rashes, No breakdown Neurological: Neuro grossly intact, Sensory exam intact to light touch and pain Psych/Mental Status: Normal Affect, Appropriate - Physical Exam Vital Signs Temp Pulse Resp BP Pulse Ox 97.7 F L 97 18 114/59 L 92 10/22/18 02:55 10/22/18 07:00 10/22/18 02:55 10/22/18 02:55 10/22/18 07:08 Oxygen Flow Rate (L/min) 2 Oxygen Delivery Method Nasal Cannula Weight: 262 lb 9.129 oz Body Mass Index (BMI) 45.8 Finger Stick Blood Glucose 478 Intake and Output for Last 24 Hours 10/20/18 10/21/18 10/22/18 23:59 23:59 23:59 Intake Total 1320.9 / 1320.9 3862 / 3862 0 / 0 Output Total 1850 / 1850 400 / 400 Balance -529.1 / -529.1 3462 / 3462 0 / 0 Microbiology Past 72 Hours 10/18/18 17:00 Blood Culture - Preliminary Blood Culture (Wb) - Anticubital Left No growth in 48 hours. 10/18/18 17:00 Blood Culture - Preliminary Blood Culture (Wb) - Right Hand No growth in 48 hours. 10/18/18 15:58 Urine Culture - Final Urine Catheter - Catheter Citrobacter freundii Laboratory Tests Past 24 Hrs 10/21/18 10/21/18 10/21/18 04:30 10:05 15:24 WBC RBC Hgb Hct MCV MCH MCHC RDW Std Deviation RDW [place]eff of [place] Plt Count MPV Neut % (Auto) Absolute Neuts (auto) Absolute Lymphs (auto) Total Counted Neutrophils % (Manual) Band Neutrophils % Lymphocytes % (Manual) Monocytes % (Manual) Eosinophils % (Manual) Basophils % (Manual) Metamyelocytes % Nucleated RBCs/100 WBC Diff Path Review Reviewed Toxic Vacuolation Platelet Estimate Polychromasia Microcytosis Macrocytosis Sodium Potassium 4.0 Chloride Carbon Dioxide Anion Gap BUN Creatinine Estim Creat Clear Calc Est GFR (MDRD) Af Amer Est GFR (MDRD) Non-Af BUN/Creatinine Ratio Glucose Calcium Troponin I 0.414 H 10/22/18 10/22/18 06:15 06:15 WBC 15.5 H RBC 4.14 L Hgb 9.5 L Hct 33.2 L MCV 80.2 L MCH 22.9 L MCHC 28.6 L RDW Std Deviation 58.1 H RDW [employer]eff [place] 21.3 H Plt Count 308 MPV 8.9 Neut % (Auto) Not Reportable Absolute Neuts (auto) 13.0 H Absolute Lymphs (auto) 1.24 Total Counted 100 Neutrophils % (Manual) 83 H Band Neutrophils % 1 Lymphocytes % (Manual) 8 L Monocytes % (Manual) 4 Eosinophils % (Manual) 2 Basophils % (Manual) 1 Metamyelocytes % 1 Nucleated RBCs/100 WBC 1 Diff Path Review May foll Toxic Vacuolation 3+ Platelet Estimate ADEQUATE Polychromasia 2+ Microcytosis 1+ Macrocytosis 2+ Sodium 138 Potassium 3.8 Chloride 99 Carbon Dioxide 28.0 Anion Gap 11 BUN 46 H Creatinine 1.09 H Estim Creat Clear Calc 39.73 Est GFR (MDRD) Af Amer 64 Est GFR (MDRD) Non-Af 53 L BUN/Creatinine Ratio 42.2 H Glucose 157 H Calcium 8.7 Troponin I POC Glucose 10/22/18 10/21/18 10/21/18 08:52 21:09 15:49 POC Glucose 203 H 223 H 265 H 10/21/18 11:10 POC Glucose 288 H Home Medications: Medications to take at Discharge Simvastatin [Zocor] 20 mg PO QHS 01/15/14 Escitalopram Oxalate [Lexapro] 10 mg PO DAILY 06/29/15 traZODone [Desyrel] 100 mg PO QHS PRN PRN 06/29/15 Budesonide/Formoterol Fumarate [Symbicort 160-4.5 Mcg Inhaler] 2 puff IH BID 03/27/17 Fluticasone 0.05% [Flonase Nasal [place]] 1 spray NASAL BID PRN 04/24/17 Acetaminophen [Tylenol Tablet] 650 mg PO Q6H PRN PRN tab 06/10/17 Albuterol Sulfate [Ventolin Hfa] 1 - 2 puff INHALATION PRN PRN 01/02/18 Ipratropium/Albuterol Sulfate [Duoneb] 3 ml INHALATION Q4H PRN 04/01/18 Metoprolol Tartrate [Lopressor (beta lorena)] 25 mg PO BID 06/20/18 metolazone 2.5 mg tablet 2.5 mg PO .COMPLEX 07/03/18 glipizide 5 mg tablet 5 mg PO BID 09/08/18 omeprazole magnesium 20 mg tablet,delayed release 20 mg PO DAILY 09/08/18 promethazine 25 mg tablet 25 mg PO Q6H 09/08/18 sennosides 8.6 mg tablet 8.6 mg PO BID 09/08/18 potassium chloride ER 20 mEq tablet,extended release(part/cryst) 40 meq PO DAILY 90 Days #180 tab 09/17/18 Dexamethasone [Decadron] 2 mg PO DAILY 10/18/18 Insulin Glargine,Hum.rec.anlog [Lantus Solostar] 30 unit SUBCUT DAILY #0 10/22/18 Insulin Lispro [Humalog KwikPen] 10 unit SUBCUT TIDAC insuln.pen 10/22/18 Torsemide 20 mg PO BID #0 10/22/18 Primary Care Physician: Vic Chen MD [Primary Care Provider] - Please follow up with your Primary Care Physician in: 3-5 days [facility] Minutes spent on discharge:: 35 Patient Condition:: Stable Medical Necessity - Tobacco Use Smoking Status: Former smoker Meaningful Use Info Meaningful Use Diagnoses (Choose all that apply): None applicable Code Visit Inpatient E&M: 51436 Disch Hosp
[2018-10-22 09:10] VITALS: BP 110/77; PULSE 87; RESP 18; TEMP 36.4; O2SAT 94
--- NOTE | 2018-10-22 09:41 | CASEMGMT ---
Patient is ready for discharge to [facility]. ANTONIO faxed orders to [facility]. Completed convalescent on [facility]. Called [facility] and arranged for patient to get picked up via cot at 1030a. ANTONIO notified RN, patient, physician office secretary, patient's , and left a message for Rema at [facility]. Plan: d/c to [facility] under skilled level of care on a convalescent stay. Chey AGUIRRE MSW
--- NOTE | 2018-10-22 09:45 | NURSING ---
report called to RADHA Lauren RN
--- NOTE | 2018-10-22 09:45 | NURSING ---
pt's AM medications not given before transfer to [facility] d/t pt refusing to take.
[2018-10-22 14:23] LABS: Pathologist Review Reviewed
== END 2018-10-22 10:30 | disposition skilled nursing facility (03) | DRG 683 ==
LOC: ED 15:15 → PCU 19:16
PROVIDERS: Hospitalist; Internal Medicine; Internal Medicine Nephrology; Student in an Organized Health Care Education/Training Program; Admitting Provider Internal Medicine; Emergency Provider Emergency Medicine; Family Provider Family Medicine; PCP Family Medicine; Referring Provider Internal Medicine; Visit Provider Family Medicine
DX: N17.9 Acute kidney failure, unspecified (principal); Z68.42 Body mass index [BMI] 45.0-49.9, adult; I50.32 Chronic diastolic (congestive) heart failure; J96.11 Chronic respiratory failure with hypoxia; N39.0 Urinary tract infection, site not specified; E87.1 Hypo-osmolality and hyponatremia; E87.5 Hyperkalemia; I35.0 Nonrheumatic aortic (valve) stenosis; E11.65 Type 2 diabetes mellitus with hyperglycemia; Z99.81 Dependence on supplemental oxygen; N18.3 Chronic kidney disease, stage 3 (moderate); I25.10 Atherosclerotic heart disease of native coronary artery without angina pectoris; Z66 Do not resuscitate; R29.6 Repeated falls; I27.20 Pulmonary hypertension, unspecified; D50.0 Iron deficiency anemia secondary to blood loss (chronic); J44.9 Chronic obstructive pulmonary disease, unspecified; E87.6 Hypokalemia; E78.5 Hyperlipidemia, unspecified; E66.01 Morbid (severe) obesity due to excess calories; Z79.4 Long term (current) use of insulin; Z87.891 Personal history of nicotine dependence
CPT/HCPCS: 36415; 71045; 76770; 80048; 80053; 81001; 82306; 82436; 82570; 82607; 82728; 82962; 83036; 83540; 83550; 83735; 83880; 83930; 83935; 84100; 84132; 84156; 84300; 84443; 84484; 85025; 85045; 86850; 86900; 86920; 87040; 87077; 87086; 87088; 87186; 93005; 94640; 97110; 97163; 97166; 97802; 99285; 99406; J1756; J7030; J7040; J7050; P9016; A4216; J0610; J0696

== ENCOUNTER → 2018-12-11 11:39 | Outpatient (CLI) | payer MEDICARE, OTHER, SELFPAY ==
[2018-10-18 17:40] VITALS: BMI 45.8
[2018-12-11 14:05] LABS: Absolute Lymphocyte Count 0.55 X10^3/uL (0.83-4.51); Absolute Neutrophil Count 16.7 X10^3/uL (2.0-7.7); Basophil# 0.08 X10^3/uL; Basophil% 0.4 % (0-1); Eosinophil# 0.17 X10^3/uL; Eosinophils% 0.9 % (0-5); Hematocrit 24.8 % (37-47); Hemoglobin 6.7 g/dL (12.0-15.0); Lymphocyte # 0.55 X10^3/ul (4.0); Lymphocyte % 2.8 % (19-41); Mean Corpuscular Hgb 26.3 pg (27.0-32.0); Mean Corpuscular Volume 97.3 fL (81-99); Mean Platelet Vol. 9.8 fl (6.2-12.0); Monocyte# 1.08 X10^3/uL; Monocyte% 5.5 % (0-10); Neutrophil # 16.71 X10^3/uL (2.7-7.7); Neutrophil % 85.8 % (47-70); POSITIVE DIFFERENTIAL YES; POSITIVE MORPHOLOGY YES; Platelet Count 542 K/mm3 (150-450); RBC Distribution Width CV 20.2 % (11.6-14.6); RBC Distribution Width SD 71.9 fl (35.1-43.9); Red Blood Count 2.55 M/mm3 (4.2-5.4); White Blood Count 19.5 K/mm3 (4.4-11.0)
[2018-12-11 14:07] LABS: Differential Indicated SCAN CRITERIA MET; NRBC Flagged by Analyzer 2.2 % (0-5)
[2018-12-11 14:27] LABS: ALB/GLOB Ratio 0.9 RATIO (0.9-2.4); AST(SGOT) 9 U/L (15-37); Alanine Aminotransfer ALT/SGPT 27 U/L (13-56); Albumin, Serum 2.9 g/dL (3.2-5.0); Alkaline Phosphatase 74 U/L (45-117); Anion Gap 7 (5-15); BUN 35 mg/dL (7-18); BUN/Creat Ratio 33.7 RATIO (10-20); Calcium,Total 8.3 mg/dL (8.5-10.1); Chloride 95 mmol/L (98-107); Creatinine, Serum 1.04 mg/dL (0.55-1.02); EST Glomerular Filtration Rate 56 mL/min (>60); Est Glom Filt Rate - Afr Amer 67 mL/min (>60); Globulin 3.2 g/dL (2.2-4.2); Glucose 185 mg/dL (74-106); Protein, Total 6.1 g/dL (6.4-8.2); Sodium Level 139 mmol/L (136-145); Thyroid Stim Hormone (TSH) 2.48 uIU/mL (0.358-3.74)
[2018-12-11 14:34] LABS: Anisocytosis 1+; Hypochromasia 2+; Platelet Estimate SLT INC (ADEQ); Polychromasia 2+
[2018-12-11 14:35] LABS: Basophilic Stippling RARE; Microcytosis RARE; Schistocytes RARE
[2018-12-12 14:39] LABS: Pathologist Review Reviewed
== END ==
PROVIDERS: Family Provider Family Medicine; PCP Family Medicine; Referring Provider Family Medicine; Visit Provider Family Medicine
DX: D64.9 Anemia, unspecified (principal); R00.0 Tachycardia, unspecified; I50.9 Heart failure, unspecified
CPT/HCPCS: 36415; 80053; 83735; 84443; 85025

== ENCOUNTER 2018-12-13 10:53 | Observation (INO) | payer MEDICARE, OTHER, SELFPAY ==
[2018-10-18 17:40] VITALS: BMI 45.8
[2018-12-13] VITALS (16 sets, daily range): BP systolic 76–128; BP diastolic 47–72; PULSE 103–119; RESP 16–28; TEMP 36.6–37.2; O2SAT 92–100; BMI 51.0; BMI 49.8
--- NOTE | 2018-12-13 11:29 | RAD_ITS ---
STUDY: X-RAY CHEST REASON FOR EXAM: Female, 68 years old. Tachycardia TECHNIQUE: Single AP portable view of the chest. COMPARISON: October 18, 2018 chest x-ray FINDINGS: There is minimal lower lobe atelectasis. There is prominent appearance of the central vascular markings. There is no demonstrated pleural abnormality. There is mild cardiac enlargement. Normal mediastinum and deepthi. Normal visualized pulmonary arteries. There is atherosclerotic calcification of the aortic arch with tortuosity. There are diffuse degenerative changes of the visualized thoracic spine. Normal visualized ribs, clavicles, and shoulders. There is no demonstrated abnormality of the visualized soft tissue structures of the upper abdomen. RAD/Chest 1 View (Portable) IMPRESSION: Consider mild central vascular congestion. Lower lobe atelectasis. Mild cardiomegaly. Electronically Signed: Dipti Aguirre MD at 12:00 EDT Tel , Service support ,
--- NOTE | 2018-12-13 11:30 | EKG12_ITS ---
Test Reason : PALPTATIONS Blood Pressure : / mmHG Vent. Rate : 113 BPM Atrial Rate : 113 BPM P-R Int : 142 ms QRS Dur : 148 ms QT Int : 390 ms P-R-T Axes : 051 044 011 degrees QTc Int : 534 ms Sinus tachycardia with PSVC's/ Repetitive PSVC's Right bundle branch block Abnormal ECG Confirmed by HARMAN GAMBOA, DEVIN ([id number]), medical transcription editor MINNA BEAN ([id number]) on 12/15/2018 3:06:21 PM Referred By: Pito Mckeon Confirmed By:DEVIN HAMMER MD
--- NOTE | 2018-12-13 12:01 | ED.RN ---
LAB CALLED FOR BLOOD DRAW. SEARCH MANAGER ABLE TO GET IV BUT UNABLE TO DRAW OFF OF.
[2018-12-13 12:30] LABS: Absolute Lymphocyte Count 0.59 X10^3/uL (0.83-4.51); Basophil# 0.02 X10^3/uL; Basophil% 0.1 % (0-1); Eosinophil# 0.13 X10^3/uL; Eosinophils% 0.8 % (0-5); Hematocrit 21.9 % (37-47); Lymphocyte # 0.59 X10^3/ul (4.0); Lymphocyte % 3.6 % (19-41); Mean Corp Hgb Conc 26.9 g/dL (32-36); Mean Corpuscular Hgb 25.3 pg (27.0-32.0); Mean Platelet Vol. 8.9 fl (6.2-12.0); Monocyte# 1.06 X10^3/uL; Monocyte% 6.5 % (0-10); Neutrophil % 86.1 % (47-70); POSITIVE COUNT YES; POSITIVE DIFFERENTIAL YES; POSITIVE MORPHOLOGY YES; Platelet Count 483 K/mm3 (150-450); RBC Distribution Width CV 19.7 % (11.6-14.6); RBC Distribution Width SD 66.9 fl (35.1-43.9); Red Blood Count 2.33 M/mm3 (4.2-5.4); White Blood Count 16.3 K/mm3 (4.4-11.0)
[2018-12-13 12:38] LABS: Differential Indicated SCAN CRITERIA MET
[2018-12-13 12:39] LABS: Hemoglobin 5.9 g/dL (12.0-15.0)
[2018-12-13 12:48] LABS: AST(SGOT) 10 U/L (15-37); Alanine Aminotransfer ALT/SGPT 23 U/L (13-56); Albumin, Serum 2.7 g/dL (3.2-5.0); Alkaline Phosphatase 68 U/L (45-117); Anion Gap 4 (5-15); BUN 32 mg/dL (7-18); BUN/Creat Ratio 29.4 RATIO (10-20); Bilirubin, Direct 0.08 mg/dL (0.00-0.30); Calcium,Total 8.1 mg/dL (8.5-10.1); Chloride 94 mmol/L (98-107); Creatinine, Serum 1.09 mg/dL (0.55-1.02); EST Glomerular Filtration Rate 53 mL/min (>60); Est Glom Filt Rate - Afr Amer 64 mL/min (>60); Estimated Creatinine Clearance 39.73 ml/min; Globulin 2.9 g/dL (2.2-4.2); Glucose 191 mg/dL (74-106); Magnesium 1.8 mg/dL (1.6-2.6); Potassium 3.7 mmol/L (3.5-5.1); Protein, Total 5.6 g/dL (6.4-8.2); Sodium Level 137 mmol/L (136-145)
[2018-12-13 12:52] LABS: Partial Thromboplast Time 25.5 Seconds (24.1-36.2)
[2018-12-13 13:03] LABS: BNP,B-Type NATRIURETIC PEPTIDE 155.8 pg/mL (0-100)
[2018-12-13 13:07] LABS: Anisocytosis 2+; Differential Comment SCANNED; Hypochromasia 2+; Macrocytosis 1+; Microcytosis 1+; Ovalocyte 1+; Platelet Estimate ADEQUATE (ADEQ); Platelet Morphology LARGE; Poikilocytosis 1+; Polychromasia 1+
[2018-12-13 13:11] LABS: International Normalized Ratio 1.1; Prothrombin Time (Protime)PT. 14.4 SECONDS (11.7-14.9)
[2018-12-13 13:21] LABS: Mucous, Urine 0 SEEN /hpf (<or=2+); Red Blood Cells-Urine 0 SEEN /hpf (0-5); Squamous Epithelial Cells - UA 0 SEEN /hpf (5-10); White Blood Cells 0 SEEN /hpf (0-5)
--- NOTE | 2018-12-13 13:53 | NURSING ---
MED SURG OBS TERELETSKY ANEAMIA REQUIRING TRANSFUSION, LYMPHEDEMA
[2018-12-13 14:04] LABS: Color, Urine Yellow (Yellow); Glucose, Dipstick Normal (Normal); Ketone-Dipstick Negative (Negative); Leukocyte Esterase-Dipstick 25 /ul (Negative); Nitrite-Dipstick Positive (Negative); Occult Blood-Urine 50 /ul (Negative); Protein-Dipstick Negative (Negative); Specific Gravity, Urine 1.015 (1.002-1.030); Urine Bilirubin Dipstick Negative (Negative); Urine Clarity Clear (Clear); Urine Urobilinogen Normal (Normal)
[2018-12-13 14:19] LABS: Bacteria 2+ /hpf (None Seen)
[2018-12-13 15:10] LABS: Bedside Glucose 211 mg/dL (70-110)
--- NOTE | 2018-12-13 16:24 | ED.DCSUM_ITS ---
- ER Visit Summary Date of Service: 12/13/18 Chief Complaint: Swelling and increased heart rate History of Present Illness: The patient is a 68 F who states for the past several days her his hands have been more swollen. She has history of lymphedema and diastolic CHF and is been on furosemide and metolazone. She also states now her heart rate has been increasing. She states that typically this happens she is an heart failure. She has a history of chronic anemia from iron deficiency. She also notes aortic stenosis COPD pulmonary fibrosis. She sees Dr. Xavier for cardiology. She is chronically on 3 L home O2. Physical Examination: Afebrile noted heart rate of 107 respiratory rate 25 pulse ox 93% on her 3 L Gen: Well-nourished well-developed Head: Normocephalic atraumatic Eyes: Perrl EOMI ENT: TMs clear no rhinorrhea moist mucous membranes Neck: Supple no lymphadenopathy no JVD nontender CVS: Regular rate rhythm no murmurs normal S1-S2 Respiratory: Patient is tachypneic but not in any distress and can speak in full sentences. clear to auscultation bilaterally chest nontender Abdomen: Soft nontender nondistended normal bowel sounds no masses Back: Nontender Extremity: Nontender patient has lower extremity edema her legs are wrapped. Her upper extremities are also edematous. Skin: She appears mildly pale no rash Neuro: alert orientated ?3 CN II-XII intact normal strength sensation Psych: Normal affect normal mood Test Results: Hemoglobin 5.9. White count 16.3. BUN 32 creatinine 1.09. Troponin 0 0.033. EKG sinus with a right bundle branch block a rate of 113. Chest x-ray showed mild vascular congestion. Emergency Department Course and Treatment: Patient has a history of chronic anemia. In addition to iron deficiency she is also been told that she has had AVMs. She is lymphedema certainly not being helped by her anemia. Our plan will be admission for transfusion and for diuresis. Impression: 1. Anemia requiring transfusion 2. Lymphedema This note was generated with [employer]ones[employer] dictation software. It may contain incorrect words, spelling, and punctuation that were not noted in review of the chart prior to signing ED Disposition - Plan for ED Patient: Disposition: Acute Care [facility]
[2018-12-13] MEDS: Insulin Lispro 100 UNIT/ML INSULN.PEN SC (17:13)
[2018-12-13] MEDS: Furosemide 40 MG Tablet PO (17:13)
[2018-12-13] MEDS: Insulin Lispro 100 UNIT/ML INSULN.PEN 10 UNIT SC (17:14)
[2018-12-13 17:15] LABS: Bedside Glucose 292 mg/dL (70-110)
--- NOTE | 2018-12-13 17:30 | PCA ---
had pt turn so i could remove 2 wet attends from under her and attempted to put purewick in and pt started to urinate before i could get suction on. I then asked pt to turn so i could remove the wet sheets and pt refused 3 times and said i can't move right now.
--- NOTE | 2018-12-13 18:50 | HP.PCM_ITS ---
Problem List (1) Shortness of breath Status: Acute (2) Generalized weakness Status: Acute (3) Increased heart rate Status: Acute History of Present Illness Date of Admission: 12/13/18 Chief Complaint: Generalized weakness, shortness of breath, increased heart rate The patient is a 68 year old F emergency room at [facility] after being brought in with complaints of shortness of breath, generalized weakness, and increased heart rate since last night. She was advised to come to the emergency room for evaluation by her PCP. Evaluation in the emergency room included labs which showed the patient's white blood cell count to be elevated at 16.3, hemoglobin was 5.9, creatinine was 1.09, BUN was 32, glucose was 191, beta natured peptide was 155.8. Urinalysis showed +2 bacteria but no white cells or red cells, her urine was positive for nitrites and leukocyte esterase was 25. Patient has a history of chronic anemia secondary to GI blood loss from AVMs, she has been worked up in the past for this, at one time patient was hospice but she reversed this. Patient has multiple medical problems including chronic hypoxic respiratory failure, COPD, pulmonary fibrosis, morbid obesity, aortic stenosis, coronary artery disease, type 2 diabetes, and chronic kidney disease stage III. Patient's last hemoglobin on 12/11/2018 was 6.7. It appears that the patient has a chronically elevated white blood cell count, and reviewing the patient's previous labs and her medical record here it appears that the patient's white blood cell count has been elevated almost every time is been checked. Patient will be placed in observation status on MedSurg 3, she will be transfused 3 units of packed red blood cells and her CBC will be rechecked tomorrow. IV Lasix will be given between the first 2 units of packed red blood cells. I discussed the patient's CODE STATUS with her, she is agreed to be a DNR CC arrest. She does not want intubation. Past Medical History Past Medical History (Chronic Problems): Chronic Problems (Last Updated 09/02/18 @ 14:10 by Fabiola Lnae) Acute kidney injury superimposed on chronic kidney disease (Chronic) 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) CAD in [place] artery (Chronic) Edema (Chronic) Type 2 diabetes mellitus (Chronic) Nonrheumatic aortic (valve) stenosis (Chronic) Pure hypercholesterolemia (Chronic) Essential hypertension (Chronic) COPD with acute exacerbation (Chronic) Respiratory failure (Chronic) Depression (Chronic) Morbid obesity (Chronic) Pulmonary hypertension (Chronic) CKD stage 3 secondary to diabetes (Chronic) Chronic diastolic (congestive) heart failure (Chronic) Cerebral infarction, unspecified (Chronic) Palpitations (Chronic) Anxiety (Chronic) Left atrial enlargement (Chronic) Hypersomnia (Chronic) Anemia (Chronic) Carotid artery stenosis (Chronic) Chronic hypoxemic respiratory failure (Chronic) Pulmonary fibrosis (Chronic) 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 3 severe COPD by GOLD classification (Chronic) Pulmonary hypertension (Chronic) With PA pressures 55 by cardiac catheterization 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) Medical History: Medical History (Last Updated 09/02/18 @ 14:[address]) Type 2 diabetes mellitus (Chronic) E11.9 Nonrheumatic aortic (valve) stenosis (Chronic) I35.0 Pure hypercholesterolemia (Chronic) E78.00 Essential hypertension (Chronic) I10 Respiratory failure (Chronic) J96.90 Depression (Chronic) F32.9 Morbid obesity (Chronic) E66.01 COPD exacerbation (Resolved) J44.1 Pulmonary hypertension (Chronic) I27.20 Diastolic CHF, acute on chronic (Acute) I50.33 CKD stage 3 secondary to diabetes (Chronic) E11.22, N18.3 Chronic diastolic (congestive) heart failure (Chronic) I50.32 Cerebral infarction, unspecified (Chronic) I63.9 Palpitations (Chronic) R00.2 Anxiety (Chronic) F41.9 Left atrial enlargement (Chronic) I51.7 Hypersomnia (Chronic) G47.10 Anemia (Chronic) D64.9 Carotid artery stenosis (Chronic) I65.29 Chronic hypoxemic respiratory failure (Chronic) J96.11 Pulmonary fibrosis (Chronic) J84.10 Tobacco dependence in remission (Chronic) F17.201 Stage 3 severe COPD by GOLD classification (Chronic) J44.9 Pulmonary hypertension (Chronic) With PA pressures 55 by cardiac catheterization 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 Blackmon in 2011, suspected AV malformations Acute on chronic anemia (Inactive) Aortic stenosis (Inactive) Moderate to severe with valve area 1.1 on cardiac catheterization in 2013 Aortic valve stenosis (Inactive) I35.0 HLD (hyperlipidemia) (Inactive) E78.5 Hypertension (Inactive) I10 Allergies No Known Allergies Allergy (Verified 09/08/18 13:48) Home Medications: Ambulatory Orders Medication Instructions Recorded Simvastatin [Zocor] 20 mg PO QHS 01/15/14 Escitalopram Oxalate [Lexapro] 10 mg PO DAILY 06/29/15 traZODone [Desyrel] 100 mg PO QHS PRN PRN 06/29/15 Budesonide/Formoterol Fumarate 2 puff IH BID 03/27/17 [Symbicort 160-4.5 Mcg Inhaler] Fluticasone 0.05% [Flonase Nasal 1 spray NASAL BID PRN 04/24/17 [place]] Acetaminophen [Tylenol Tablet] 650 mg PO Q6H PRN PRN tab 06/10/17 Albuterol Sulfate [Ventolin Hfa] 1 - 2 puff INHALATION PRN PRN 01/02/18 Ipratropium/Albuterol Sulfate 3 ml INHALATION Q4H PRN 04/01/18 [Duoneb] Metoprolol Tartrate [Lopressor 25 mg PO BID 06/20/18 (beta lorena)] metolazone 2.5 mg tablet 2.5 mg PO QWEEK 07/03/18 glipizide 5 mg tablet 5 mg PO BID 09/08/18 omeprazole magnesium 20 mg 20 mg PO DAILY 09/08/18 tablet,delayed release promethazine 25 mg tablet 25 mg PO Q6H 09/08/18 potassium chloride ER 20 mEq 40 meq PO DAILY 90 Days #180 tab 09/17/18 tablet,extended release(part/cryst) Dexamethasone [Decadron] 2 mg PO DAILY 10/18/18 Insulin Lispro [Humalog KwikPen] 10 unit SUBCUT TIDAC insuln.pen 10/22/18 Torsemide 20 mg PO BID #0 10/22/18 Insulin Glargine,Hum.rec.anlog 30 unit SUBCUT QHS 12/13/18 [Lantus Solostar] Oxycodone [Oxyir] 5 mg PO Q6H PRN PRN 12/13/18 Ferrous Sulfate 325 mg PO BIDCM #60 tab 12/14/18 Surgical History: Surgical History (Last Reviewed 06/21/18 @ 04:30 by Edson Mooney MD) History of hernia repair Z98.890, Z87.19 History of hysterectomy Z90.710 History of left heart catheterization Z98.890 X 2 Surgical History: herniorrhaphy, hysterectomy Psychiatric History: Anxiety, Depression [employer]IAN History: No pertinent [employer]CH[employer]ICIAN history Lives: Spouse/ Significant Other Smoking Status: Former smoker Tobacco Use: Cigarettes Alcohol: None Drugs: None - *Family History Paternal Family History: Family History (Last Reviewed 06/21/18 @ 04:30 by Edson Mooney MD) Mother Heart disease Father CAD (coronary artery disease) Hypertension Brother Hypertension History Items: Heart Disease Maternal Family History: Family History (Last Reviewed 06/21/18 @ 04:30 by Edson Mooney MD) Mother Heart disease Father CAD (coronary artery disease) Hypertension Brother Hypertension History Items: Heart Disease Review of Systems Constitutional: Reports: Weakness, Fatigue. Denies: Anorexia, Chills, Fever, Night Sweats, Malaise, Weight Change Eyes: Denies: Cataracts, Conjunctivae Inflammation, Double vision, Drainage HEENT: Denies: Difficulty Swallowing, Dysphasia, Ear Pain, Eye Pain, Hearing Changes, Nasal bleeding, Nasal Congestion, Post Nasal Drip Cardiovascular: Denies: Chest Pain, Claudication, Chest Pressure, Chest Tightness, Edema, Heaviness, Palpitations Respiratory: Reports: Shortness of Breath, Shortness of breath upon exertion. Denies: Cough, Hemoptysis, Pleuritic Pain, Shortness of breath at rest, Sputum production, Wheezing Gastrointestinal: Denies: Abdominal Pain, Constipation, Diarrhea, Hematemesis, Hematochezia, Nausea, Melena, Vomiting Genitourinary: Denies: Dysuria, Frequency, Hematuria, Hesitancy, Nocturia, Retention, Urgency Musculoskeletal: Denies: Foot Pain, Hand Pain, Joint Pain, Joint stiffness, Joint swelling, Joint Tenderness, Leg Pain Skin: Denies: Dryness, Jaundice, Pruritis, Rash Neurological: Denies: Blurred vision, Double vision, Change in Speech, Slurred speech, Difficulty swallowing, Focal weakness, Headaches, Incoordination, Numbness, Tingling Psychiatric: Denies: Anxiety, Depression, Homicidal Ideations, Suicidal Ideations Endocrine: Denies: Change in Body Habitus, Heat/ Cold Intolerance, Polydipsia, Polyuria Hematologic/ Lymphatic: Denies: Adenopathy, Anemia, Easy Bruising, Easy Bleeding, Petechiae, Purpura VTE Information - Inpt Only VTE Present on Admission: No VTE Mechan Device Prophylaxis: None VTE Pharm Prophylaxis ordered?: Yes - Physical Exam General: Alert, Oriented x3, Cooperative, No apparent distress, Well developed HEENT: Atraumatic, PERRLA, EOMI, Normocephalic Oral: Moist Mucosa Neck: Supple, No JVD, Negative Carotid Bruits, Trachea Midline, Thyroid Normal Size and Texture Lungs: Clear to auscultation, Normal air movement, No rhonchi, No wheeze, No rales Cardiovascular: Regular rate, Regular Rhythm, Normal S1, Normal S2, No murmurs, PMI Normal, No rub noted, No Gallop Abdomen: Bowel Sounds Present, Soft, Non Tender, Non-Distended, Obese, No hernias noted Extremities: No clubbing, No cyanosis, Capillary Refill Less than 3 Seconds, Edema - Chronic edematous changes are noted over both lower legs Skin: No rashes, No breakdown Musculoskeletal: No Tenderness to Palpation of Joints or Extremities Neurological: Cranial nerves II-XII grossly intact, Neuro grossly intact, Sensory exam intact to light touch and pain, Coordination normal Psych/Mental Status: Normal Affect, Appropriate, Alert and oriented to time, place, person, mood and affect Vital Signs Temp Pulse Resp BP Pulse Ox 98.3 F 115 H 20 H 105/52 L 94 12/13/18 17:18 12/13/18 17:18 12/13/18 17:18 12/13/18 17:18 12/13/18 17:18 Oxygen Flow Rate (L/min) 3.5 Oxygen Delivery Method Nasal Cannula Weight: 127.573 kg Body Mass Index (BMI) 49.8 Finger Stick Blood Glucose 478 Intake and Output for Last 24 Hours 12/11/18 12/12/18 12/13/18 23:59 23:59 23:59 Intake Total 0 / 0 Balance 0 / 0 Laboratory Tests Past 24 Hrs 12/13/18 12/13/18 12/13/18 12:20 12:20 12:20 WBC 16.3 H RBC 2.33 L Hgb 5.9 L* Hct 21.9 L MCV 94.0 MCH 25.3 L MCHC 26.9 L RDW Std Deviation 66.9 H RDW Coeff of [place] 19.7 H Plt Count 483 H MPV 8.9 Immature Gran % (Auto) 2.900 H Neut % (Auto) 86.1 H Lymph % (Auto) 3.6 L [place] % (Auto) 6.5 Eos % (Auto) 0.8 Baso % (Auto) 0.1 Absolute Neuts (auto) 14.0 H Absolute Lymphs (auto) 0.59 L Nucleated RBC % 2.0 Differential Comment SCANNED Diff Path Review May foll Platelet Estimate ADEQUATE Plt Morphology Comment LARGE Polychromasia 1+ Hypochromasia 2+ Poikilocytosis 1+ Anisocytosis 2+ Microcytosis 1+ Macrocytosis 1+ Ovalocytes 1+ PT 14.4 INR 1.1 APTT 25.5 Sodium 137 Potassium 3.7 Chloride 94 L Carbon Dioxide 39.0 H Anion Gap 4 L BUN 32 H Creatinine 1.09 H Estim Creat Clear Calc 39.73 Est GFR (MDRD) Af Amer 64 Est GFR (MDRD) Non-Af 53 L BUN/Creatinine Ratio 29.4 H Glucose 191 H Calcium 8.1 L Magnesium 1.8 Total Bilirubin 0.30 Direct Bilirubin 0.08 AST 10 L ALT 23 Alkaline Phosphatase 68 Troponin I 0.033 B-Natriuretic Peptide Total Protein 5.6 L Albumin 2.7 L Globulin 2.9 Urine Color Urine Clarity Urine pH Ur Specific [place] Urine Protein Urine Glucose (UA) Urine Ketones Urine Occult Blood Urine Nitrite Urine Bilirubin Urine Urobilinogen Ur Leukocyte Esterase Urine RBC Urine WBC Ur Squamous Epith Cells Urine Bacteria Urine Mucus Blood Type Antibody Screen Crossmatch 12/13/18 12/13/18 12/13/18 12:20 13:10 13:56 WBC RBC Hgb Hct MCV MCH MCHC RDW Std Deviation RDW [place] Plt Count MPV Immature Gran % (Auto) Neut % (Auto) Lymph % (Auto) [place] % (Auto) Eos % (Auto) Baso % (Auto) Absolute Neuts (auto) Absolute Lymphs (auto) Nucleated RBC % Differential Comment Diff Path Review Platelet Estimate Plt Morphology Comment Polychromasia Hypochromasia Poikilocytosis Anisocytosis Microcytosis Macrocytosis Ovalocytes PT INR APTT Sodium Potassium Chloride Carbon Dioxide Anion Gap BUN Creatinine Estim Creat Clear Calc Est GFR (MDRD) Af Amer Est GFR (MDRD) Non-Af BUN/Creatinine Ratio Glucose Calcium Magnesium Total Bilirubin Direct Bilirubin AST ALT Alkaline Phosphatase Troponin I B-Natriuretic Peptide 155.8 H Total Protein Albumin Globulin Urine Color Yellow Urine Clarity Clear Urine pH 5.0 Ur Specific [place] 1.015 Urine Protein Negative Urine Glucose (UA) Normal Urine Ketones Negative Urine Occult Blood 50 H Urine Nitrite Positive H Urine Bilirubin Negative Urine Urobilinogen Normal Ur Leukocyte Esterase 25 H Urine RBC 0 SEEN Urine WBC 0 SEEN Ur Squamous Epith Cells 0 SEEN Urine Bacteria 2+ Urine Mucus 0 SEEN Blood Type AB POSITIVE Antibody Screen NEGATIVE Crossmatch 12/13/18 13:56 WBC RBC Hgb Hct MCV MCH MCHC RDW Std Deviation RDW [place]eff [place] Plt Count MPV Immature Gran % (Auto) Neut % (Auto) Lymph % (Auto) [place] % (Auto) Eos % (Auto) Baso % (Auto) Absolute Neuts (auto) Absolute Lymphs (auto) Nucleated RBC % Differential Comment Diff Path Review Platelet Estimate Plt Morphology Comment Polychromasia Hypochromasia Poikilocytosis Anisocytosis Microcytosis Macrocytosis Ovalocytes PT INR APTT Sodium Potassium Chloride Carbon Dioxide Anion Gap BUN Creatinine Estim Creat Clear Calc Est GFR (MDRD) Af Amer Est GFR (MDRD) Non-Af BUN/Creatinine Ratio Glucose Calcium Magnesium Total Bilirubin Direct Bilirubin AST ALT Alkaline Phosphatase Troponin I B-Natriuretic Peptide Total Protein Albumin Globulin Urine Color Urine Clarity Urine pH Ur Specific [place] Urine Protein Urine Glucose (UA) Urine Ketones Urine Occult Blood Urine Nitrite Urine Bilirubin Urine Urobilinogen Ur Leukocyte Esterase Urine RBC Urine WBC Ur Squamous Epith Cells Urine Bacteria Urine Mucus Blood Type Antibody Screen Crossmatch See Detail POC Glucose 12/13/18 12/13/18 17:06 15:05 POC Glucose 292 H 211 H Assessment/Plan All Active Problems (Last Updated 12/14/18 @ 17:17 by Pito Mckeon DO) Complicated UTI (urinary tract infection) (Resolved) Severe hyperglycemia due to diabetes mellitus (Acute) Hyperkalemia, diminished renal excretion (Resolved) Physical debility (Resolved) Generalized weakness (Acute) Recurrent falls (Resolved) Abnormal cardiac enzyme level (Resolved) Shortness of breath (Acute) Increased heart rate (Acute) Acute respiratory failure with hypoxia and hypercapnia (Resolved) Elevated troponin I level (Resolved) Hyperglycemia due to type 2 diabetes mellitus (Acute) Acute encephalopathy (Resolved) COPD exacerbation (Resolved) Diastolic CHF, acute on chronic (Acute) CVA (cerebral vascular accident) (Resolved) CVA (cerebral vascular accident) (Resolved) History of GI bleeding (Resolved) #1 chronic iron deficiency anemia secondary to chronic GI blood loss from AVM- patient will be placed in observation status on MedSurg 3, she will be given 3 units of packed red blood cells, CBC will be rechecked tomorrow #2 chronic hypoxic respiratory failure-patient is on home O2 #3 type 2 diabetes #4 morbid obesity #5 chronic leukocytosis-etiology unknown #6 chronic lymphedema of the lower legs Code Visit OBSV E&M: 78718 Initial observation care L3
[2018-12-13] MEDS: Ipratropium/Albuterol Sulfate 3 ML AMPUL.NEB INHALATION (19:05)
[2018-12-13] MEDS: 0.9% NaCl Peripheral Flush Adult/Peds IV ×2 (20:08→21:49)
[2018-12-13] MEDS: Furosemide 40 MG/4 ML Vial IV (21:48)
[2018-12-13] MEDS: glipiZIDE 5 MG Tablet PO (23:07)
[2018-12-13] MEDS: Atorvastatin Calcium 10 MG Tablet PO (23:07)
[2018-12-13] MEDS: Heparin Injection (Vial) 5,000 UNIT/ML VIAL 5000 UNIT SC (23:15)
[2018-12-13] MEDS: Metoprolol Tartrate 50 MG Tablet 25 MG PO (23:29)
[2018-12-13 23:51] LABS: Bedside Glucose 249 mg/dL (70-110)
[2018-12-14] VITALS (18 sets, daily range): BP systolic 98–150; BP diastolic 46–80; PULSE 81–110; RESP 16–20; TEMP 36.6–37.2; O2SAT 95–100
[2018-12-14] MEDS: Furosemide 40 MG/4 ML Vial IV (03:40)
[2018-12-14] MEDS: 0.9% NaCl Peripheral Flush Adult/Peds IV (03:40)
[2018-12-14 03:56] LABS: Bedside Glucose 142 mg/dL (70-110)
[2018-12-14] MEDS: Heparin Injection (Vial) 5,000 UNIT/ML VIAL 5000 UNIT SC (06:48)
[2018-12-14] MEDS: proMETHazine 25 MG Tablet PO (06:55)
[2018-12-14] MEDS: Ipratropium/Albuterol Sulfate 3 ML AMPUL.NEB INHALATION (07:26)
[2018-12-14 07:56] LABS: Bedside Glucose 105 mg/dL (70-110)
[2018-12-14] MEDS: glipiZIDE 5 MG Tablet PO (08:14)
[2018-12-14] MEDS: Insulin Lispro 100 UNIT/ML INSULN.PEN 10 UNIT SC ×2 (08:14→12:13)
[2018-12-14] MEDS: dexAMETHasone 4 MG Tablet 2 MG PO (08:15)
[2018-12-14] MEDS: Furosemide 40 MG Tablet PO (08:16)
[2018-12-14] MEDS: Metoprolol Tartrate 50 MG Tablet 25 MG PO (08:16)
[2018-12-14] MEDS: Escitalopram Oxalate 10 MG Tablet PO (08:16)
[2018-12-14] MEDS: Pantoprazole Sodium 40 MG Tablet PO (08:17)
[2018-12-14 08:56] LABS: Absolute Lymphocyte Count 0.56 X10^3/uL (0.83-4.51); Absolute Neutrophil Count 10.8 X10^3/uL (2.0-7.7); Basophil# 0.05 X10^3/uL; Basophil% 0.4 % (0-1); Eosinophil# 0.12 X10^3/uL; Hematocrit 31.9 % (37-47); Hemoglobin 9.6 g/dL (12.0-15.0); Lymphocyte # 0.56 X10^3/ul (4.0); Lymphocyte % 4.4 % (19-41); Mean Corp Hgb Conc 30.1 g/dL (32-36); Mean Corpuscular Hgb 27.2 pg (27.0-32.0); Mean Corpuscular Volume 90.4 fL (81-99); Mean Platelet Vol. 8.7 fl (6.2-12.0); Monocyte# 0.72 X10^3/uL; Monocyte% 5.7 % (0-10); Neutrophil # 10.76 X10^3/uL (2.7-7.7); Neutrophil % 85.5 % (47-70); POSITIVE DIFFERENTIAL YES; Platelet Count 439 K/mm3 (150-450); RBC Distribution Width CV 18.1 % (11.6-14.6); RBC Distribution Width SD 59.2 fl (35.1-43.9); Red Blood Count 3.53 M/mm3 (4.2-5.4); White Blood Count 12.6 K/mm3 (4.4-11.0)
[2018-12-14 08:57] LABS: Differential Indicated SCAN CRITERIA MET; NRBC Flagged by Analyzer 2.4 % (0-5)
[2018-12-14 09:15] LABS: Anisocytosis 2+; Differential Comment SCANNED; Hypochromasia 1+; Macrocytosis 1+; Microcytosis 1+; Ovalocyte 1+; Poikilocytosis 1+; Polychromasia 1+
--- NOTE | 2018-12-14 10:06 | DCINST_ITS ---
- Discharge Diagnoses Current Active Problems: Current Active and Chronic Problems (Last Updated 09/02/18 @ 14:[address]) Shortness of breath (Acute) Increased heart rate (Acute) You will use the following diet at home:: Calorie/Carbohydrate Controlled (specify 1200, 1400, etc) - 1800 edilma Your food should be the consistency of: Regular Your liquids should be the consistency of: Regular/Thin Discharge Activity: Return to Normal Activity Weight Bearing Status: Full weight bearing Allergies/Adverse Reactions: Allergies No Known Allergies Allergy (Verified 09/08/18 13:48) Medications to take at Discharge Simvastatin [Zocor] 20 mg PO QHS 01/15/14 Escitalopram Oxalate [Lexapro] 10 mg PO DAILY 06/29/15 traZODone [Desyrel] 100 mg PO QHS PRN PRN 06/29/15 Budesonide/Formoterol Fumarate [Symbicort 160-4.5 Mcg Inhaler] 2 puff IH BID 03/27/17 Fluticasone 0.05% [Flonase Nasal [place]] 1 spray NASAL BID PRN 04/24/17 Acetaminophen [Tylenol Tablet] 650 mg PO Q6H PRN PRN tab 06/10/17 Albuterol Sulfate [Ventolin Hfa] 1 - 2 puff INHALATION PRN PRN 01/02/18 Ipratropium/Albuterol Sulfate [Duoneb] 3 ml INHALATION Q4H PRN 04/01/18 Metoprolol Tartrate [Lopressor (beta lorena)] 25 mg PO BID 06/20/18 metolazone 2.5 mg tablet 2.5 mg PO QWEEK 07/03/18 glipizide 5 mg tablet 5 mg PO BID 09/08/18 omeprazole magnesium 20 mg tablet,delayed release 20 mg PO DAILY 09/08/18 promethazine 25 mg tablet 25 mg PO Q6H 09/08/18 potassium chloride ER 20 mEq tablet,extended release(part/cryst) 40 meq PO DAILY 90 Days #180 tab 09/17/18 Dexamethasone [Decadron] 2 mg PO DAILY 10/18/18 Insulin Lispro [Humalog KwikPen] 10 unit SUBCUT TIDAC insuln.pen 10/22/18 Torsemide 20 mg PO BID #0 10/22/18 Insulin Glargine,Hum.rec.anlog [Lantus Solostar] 30 unit SUBCUT QHS 12/13/18 Oxycodone [Oxyir] 5 mg PO Q6H PRN PRN 12/13/18 Ferrous Sulfate 325 mg PO BIDCM #60 tablet 12/14/18 The following prescriptions were given: Ferrous Sulfate 325 mg PO BIDCM #60 tablet Primary Care Physician: Vic Chen MD [Primary Care Provider] - Please follow up with your Primary Care Physician in: in one week-get your blood count rechecked Test Results: Test results from this visit will be discussed in further detail at your follow- up appointment, if applicable.
[2018-12-14 11:11] LABS: Bedside Glucose 130 mg/dL (70-110)
--- NOTE | 2018-12-14 18:18 | DS.PCM_ITS ---
Discharge Date and Diagnosis Date of Admission: 12/13/18 Date of Discharge: 12/14/18 - Primary Discharge Diagnosis 1 chronic iron deficiency anemia secondary to chronic GI blood loss from AVM in the gastrointestinal tract-site unknown #2 chronic hypoxic respiratory failure #3 type 2 diabetes #4 morbid obesity #5 chronic leukocytosis-etiology unknown #6 chronic lymphedema of the lower legs #7 chronic obstructive pulmonary disease - Secondary Discharge Diagnosis Chronic Problems (Last Updated 12/14/18 @ 17:17 by Pito Mckeon DO) Acute kidney injury superimposed on chronic kidney disease (Chronic) 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) CAD in [place] artery (Chronic) Edema (Chronic) Type 2 diabetes mellitus (Chronic) Nonrheumatic aortic (valve) stenosis (Chronic) Pure hypercholesterolemia (Chronic) Essential hypertension (Chronic) COPD with acute exacerbation (Chronic) Respiratory failure (Chronic) Depression (Chronic) Morbid obesity (Chronic) Pulmonary hypertension (Chronic) CKD stage 3 secondary to diabetes (Chronic) Chronic diastolic (congestive) heart failure (Chronic) Cerebral infarction, unspecified (Chronic) Palpitations (Chronic) Anxiety (Chronic) Left atrial enlargement (Chronic) Hypersomnia (Chronic) Anemia (Chronic) Carotid artery stenosis (Chronic) Chronic hypoxemic respiratory failure (Chronic) Pulmonary fibrosis (Chronic) 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 3 severe COPD by GOLD classification (Chronic) Pulmonary hypertension (Chronic) With PA pressures 55 by cardiac catheterization 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 Patient has a history of chronic anemia, work-up in the emergency room revealed the patient to be anemic with hemoglobin of 5.9. Patient's vital signs were stable. Patient was placed in observation status on MedSurg 3, she was transfused 3 units of packed red blood cells, hemoglobin which was rechecked was 9.6 at the time of discharge. On 12/14/2018, patient was seen and examined: On examination she appeared in good health and spirits. Vital signs as documented. Skin warm and dry and without overt rashes. Neck without JVD. Lungs clear. Heart exam notable for regular rhythm, normal sounds and absence of murmurs, rubs or gallops. Abdomen unremarkable and without evidence of organomegaly, masses, or abdominal aortic enlargement. Patient has morbid obesity. Extremities-chronic lower leg lymphedema is noted to be present. Neuro: Cranial nerves II through XII are grossly intact, no focal motor deficits were noted, sensation to light touch and pinprick is intact. Psych: Patient is alert and oriented x3, she does not appear anxious or depressed On 12/14/2018, patient was seen and examined and felt to be in stable condition for discharge, she was placed on oral iron supplementation and given an IV dose of Venofer prior to her discharge that date. - Physical Exam Vital Signs Temp Pulse Resp BP Pulse Ox 98.1 F 92 16 113/46 L 96 12/14/18 11:39 12/14/18 11:39 12/14/18 11:39 12/14/18 11:39 12/14/18 11:39 Oxygen Flow Rate (L/min) 3 Oxygen Delivery Method Nasal Cannula Weight: 127.573 kg Body Mass Index (BMI) 49.8 Finger Stick Blood Glucose 478 Intake and Output for Last 24 Hours 12/12/18 12/13/18 12/14/18 23:59 23:59 23:59 Intake Total 400 / 400 1780 / 1780 Output Total 2500 / 2500 Balance 400 / 400 -720 / -720 Laboratory Tests Past 24 Hrs 12/13/18 12/14/18 13:56 08:45 WBC 12.6 H RBC 3.53 L Hgb 9.6 L Hct 31.9 L MCV 90.4 MCH 27.2 MCHC 30.1 L RDW Std Deviation 59.2 H RDW Coeff of [place] 18.1 H Plt Count 439 MPV 8.7 Immature Gran % (Auto) 3.000 H Neut % (Auto) 85.5 H Lymph % (Auto) 4.4 L [place] % (Auto) 5.7 Eos % (Auto) 1.0 Baso % (Auto) 0.4 Absolute Neuts (auto) 10.8 H Absolute Lymphs (auto) 0.56 L Nucleated RBC % 2.4 Differential Comment SCANNED Diff Path Review May foll Polychromasia 1+ Hypochromasia 1+ Poikilocytosis 1+ Anisocytosis 2+ Microcytosis 1+ Macrocytosis 1+ Ovalocytes 1+ Crossmatch See Detail POC Glucose 12/14/18 12/14/18 12/14/18 10:55 07:43 03:38 POC Glucose 130 H 105 142 H 12/13/18 23:14 POC Glucose 249 H Discharge Activity: Return to Normal Activity Weight Bearing Status: Full weight bearing Home Medications: Medications to take at Discharge Simvastatin [Zocor] 20 mg PO QHS 01/15/14 Escitalopram Oxalate [Lexapro] 10 mg PO DAILY 06/29/15 traZODone [Desyrel] 100 mg PO QHS PRN PRN 06/29/15 Budesonide/Formoterol Fumarate [Symbicort 160-4.5 Mcg Inhaler] 2 puff IH BID 03/27/17 Fluticasone 0.05% [Flonase Nasal [place]] 1 spray NASAL BID PRN 04/24/17 Acetaminophen [Tylenol Tablet] 650 mg PO Q6H PRN PRN tab 06/10/17 Albuterol Sulfate [Ventolin Hfa] 1 - 2 puff INHALATION PRN PRN 01/02/18 Ipratropium/Albuterol Sulfate [Duoneb] 3 ml INHALATION Q4H PRN 04/01/18 Metoprolol Tartrate [Lopressor (beta olrena)] 25 mg PO BID 06/20/18 metolazone 2.5 mg tablet 2.5 mg PO QWEEK 07/03/18 glipizide 5 mg tablet 5 mg PO BID 09/08/18 omeprazole magnesium 20 mg tablet,delayed release 20 mg PO DAILY 09/08/18 promethazine 25 mg tablet 25 mg PO Q6H 09/08/18 potassium chloride ER 20 mEq tablet,extended release(part/cryst) 40 meq PO DAILY 90 Days #180 tab 09/17/18 Dexamethasone [Decadron] 2 mg PO DAILY 10/18/18 Insulin Lispro [Humalog KwikPen] 10 unit SUBCUT TIDAC insuln.pen 10/22/18 Torsemide 20 mg PO BID #0 10/22/18 Insulin Glargine,Hum.rec.anlog [Lantus Solostar] 30 unit SUBCUT QHS 12/13/18 Oxycodone [Oxyir] 5 mg PO Q6H PRN PRN 12/13/18 Ferrous Sulfate 325 mg PO BIDCM #60 tab 12/14/18 Following Prescrptions Were Given to Patient: Ferrous Sulfate 325 mg PO BIDCM #60 tab Primary Care Physician: Vic Chen MD [Primary Care Provider] - Please follow up with your Primary Care Physician in: in one week-get your blood count rechecked Disposition: Home Minutes spent on discharge:: 31 Patient Condition:: Stable Medical Necessity - Tobacco Use Smoking Status: Former smoker Tobacco Use: Cigarettes Meaningful Use Info Meaningful Use Diagnoses (Choose all that apply): None applicable Code Visit OBSV E&M: 67344 Observation care discharge
[2018-12-15 10:00] LABS: Pathologist Review Reviewed
[2018-12-15 10:02] LABS: Pathologist Review Reviewed
== END 2018-12-14 12:38 | disposition home or self-care (01) ==
LOC: ED 11:43 → MS3 14:27
PROVIDERS: Admitting Provider Internal Medicine; Emergency Provider Emergency Medicine; Family Provider Family Medicine; PCP Family Medicine; Referring Provider Internal Medicine; Visit Provider Internal Medicine
DX: D50.0 Iron deficiency anemia secondary to blood loss (chronic) (principal); K92.2 Gastrointestinal hemorrhage, unspecified; Q27.33 Arteriovenous malformation of digestive system vessel; N17.9 Acute kidney failure, unspecified; N18.3 Chronic kidney disease, stage 3 (moderate); I25.10 Atherosclerotic heart disease of native coronary artery without angina pectoris; E11.22 Type 2 diabetes mellitus with diabetic chronic kidney disease; J44.9 Chronic obstructive pulmonary disease, unspecified; I89.0 Lymphedema, not elsewhere classified; I50.32 Chronic diastolic (congestive) heart failure; I13.0 Hypertensive heart and chronic kidney disease with heart failure and stage 1 through stage 4 chronic kidney disease, or unspecified chronic kidney disease; E66.01 Morbid (severe) obesity due to excess calories; J96.11 Chronic respiratory failure with hypoxia; J84.10 Pulmonary fibrosis, unspecified; F32.9 Major depressive disorder, single episode, unspecified; Z79.899 Other long term (current) drug therapy; Z68.42 Body mass index [BMI] 45.0-49.9, adult; Z71.3 Dietary counseling and surveillance; Z79.51 Long term (current) use of inhaled steroids; Z79.4 Long term (current) use of insulin; Z87.891 Personal history of nicotine dependence; Z99.81 Dependence on supplemental oxygen; F41.9 Anxiety disorder, unspecified
CPT/HCPCS: 36415; 71045; 80048; 80076; 81001; 82962; 83735; 83880; 84484; 85025; 85610; 85730; 86850; 86900; 86901; 86920; 86921; 86922; 93005; 94640; 99285; J1756; J7040; P9016; A4216; J1940

== ENCOUNTER 2018-12-16 09:59 | Inpatient (IN) | payer MEDICARE, OTHER, SELFPAY ==
[2018-12-13 14:45] VITALS: BMI 49.8
[2018-12-16] VITALS (33 sets, daily range): BP systolic 94–144; BP diastolic 51–86; PULSE 70–133; RESP 17–27; TEMP 36.6–36.8; O2SAT 90–99; BMI 50.7; BMI 49.9; BMI 50.0
--- NOTE | 2018-12-16 10:17 | EKG12_ITS ---
Test Reason : SOB Blood Pressure : / mmHG Vent. Rate : 123 BPM Atrial Rate : 123 BPM P-R Int : 000 ms QRS Dur : 140 ms QT Int : 370 ms P-R-T Axes : 000 064 004 degrees QTc Int : 529 ms Atrial fibrillation with rapid ventricular response Right bundle branch block Abnormal ECG Confirmed by EJ PETERSON ([id number]), design editor MINNA BEAN ([id number]) on 12/22/2018 12:08:39 PM Referred By: Katharine Negrete Confirmed By:EJ PETERSON
--- NOTE | 2018-12-16 10:18 | ED.VISSUMM ---
- ER Visit Summary Date of Service: 12/16/18 Chief Complaint: Shortness of breath, high heart rate History of Present Illness: The patient is a 68 F who complains of shortness of breath and a high heart rate. Started yesterday. Patient was admitted to the hospital over the weekend for weakness. Her hemoglobin was found to be around 5 she is given 3 units of red blood cells. She was given Lasix with these. Her hemoglobin was 9.6 at discharge. She states that yesterday she felt more dyspneic with exertion. No chest pain or cough. She wears of home oxygen chronically. She does have a history of AVMs as well as chronic anemia. She denies a fever. Physical Examination: Vital signs reviewed. Well-developed female in no acute distress. HEENT exam unremarkable. Heart is tachycardic and irregular rhythm. There is a 2/6 systolic murmur. Lungs have rales bilaterally. Abdomen is soft and nontender. Extremities have 2+ edema to the knees bilaterally and symmetric. There is no rashes however there is some ecchymosis to the bilateral arms, likely from IV punctures. Her neurologic exam is normal. Test Results: EKG is A. fib with a right bundle branch block. Rate of 123. Nonspecific ST and T wave changes. White blood count 13.4, hemoglobin 9.9. Troponin 0 0.032. BNP 190. Creatinine is 1.2. Chest x-ray has chronic changes with no fluid overload. Urinalysis does reveal UTI. Emergency Department Course and Treatment: The patient has no history of A. fib in the past. I gave her Cardizem and the metoprolol and her heart rate is now in the 90s. I gave her Iv Rocephin for the UTI. I feel she needs to be admitted to the hospital. A [place] catheter was placed and she was given Lasix. She put out over thousand cc of urine. Patient was discussed with the hospitalist for admission. Treatment Plan: [] Disposition: Admit Impression: No onset atrial fibrillation, UTI, dyspnea This note was generated with [employer] software. It may contain incorrect words, spelling, and punctuation that were not noted in review of the chart prior to signing ED Disposition - Plan for ED Patient: Referrals: Vic Chen MD [Primary Care Provider] -
--- NOTE | 2018-12-16 10:20 | RAD_ITS ---
STUDY: X-RAY CHEST REASON FOR EXAM: Female, 68 years old. Shortness of breath/dyspnea. Cough. COPD. TECHNIQUE: Single AP portable view of the chest. COMPARISON: Comparison is made with prior examination dated December 13, 2018. FINDINGS: EKG electrodes are seen. Scattered calcified granulomas. Stable mild increased markings at the lung bases suggestive of atelectasis and/or scarring. There is no demonstrated pleural abnormality. Normal size heart. Normal mediastinum and deepthi. Normal visualized pulmonary arteries. There is atherosclerotic calcification of the aortic arch with tortuosity. Normal visualized thoracic spine. Normal visualized ribs, clavicles, and shoulders. There is no demonstrated abnormality of the visualized soft tissue structures of the upper abdomen. RAD/Chest 1 View (Portable) IMPRESSION: Mild increased markings at the lung bases suggestive of atelectasis and/or basilar scarring. Electronically Signed: Jonah Conner, at 10:43 EDT , Service support ,
[2018-12-16 11:18] LABS: Absolute Lymphocyte Count 0.47 X10^3/uL (0.83-4.51); Absolute Neutrophil Count 11.1 X10^3/uL (2.0-7.7); Basophil# 0.05 X10^3/uL; Basophil% 0.4 % (0-1); Eosinophil# 0.13 X10^3/uL; Hematocrit 34.4 % (37-47); Hemoglobin 9.9 g/dL (12.0-15.0); Lymphocyte # 0.47 X10^3/ul (4.0); Lymphocyte % 3.5 % (19-41); Mean Corp Hgb Conc 28.8 g/dL (32-36); Mean Corpuscular Volume 93.7 fL (81-99); Mean Platelet Vol. 8.8 fl (6.2-12.0); Monocyte# 1.08 X10^3/uL; Monocyte% 8.1 % (0-10); NRBC Flagged by Analyzer 0.7 % (0-5); Neutrophil # 11.14 X10^3/uL (2.7-7.7); Neutrophil % 83.3 % (47-70); POSITIVE DIFFERENTIAL YES; Platelet Count 435 K/mm3 (150-450); RBC Distribution Width CV 18.3 % (11.6-14.6); RBC Distribution Width SD 61.3 fl (35.1-43.9); Red Blood Count 3.67 M/mm3 (4.2-5.4); White Blood Count 13.4 K/mm3 (4.4-11.0)
[2018-12-16 11:19] LABS: Differential Indicated SCAN CRITERIA MET
[2018-12-16] MEDS: dilTIAZem 25 MG/5 ML Vial 20 MG IV BOLUS (11:21)
[2018-12-16 11:41] LABS: BNP,B-Type NATRIURETIC PEPTIDE 190.1 pg/mL (0-100)
[2018-12-16 11:42] LABS: Anion Gap 3 (5-15); BUN 33 mg/dL (7-18); BUN/Creat Ratio 27.3 RATIO (10-20); Calcium,Total 8.4 mg/dL (8.5-10.1); Chloride 93 mmol/L (98-107); Creatinine, Serum 1.21 mg/dL (0.55-1.02); EST Glomerular Filtration Rate 47 mL/min (>60); Est Glom Filt Rate - Afr Amer 57 mL/min (>60); Estimated Creatinine Clearance 35.79 ml/min; Glucose 208 mg/dL (74-106); Potassium 3.6 mmol/L (3.5-5.1); Sodium Level 140 mmol/L (136-145)
[2018-12-16] MEDS: Furosemide 100 MG/10 ML Vial 60 MG IV (12:00)
[2018-12-16 12:03] LABS: Mucous, Urine 0 SEEN /hpf (<or=2+); Red Blood Cells-Urine 0 SEEN /hpf (0-5)
[2018-12-16 12:07] LABS: Color, Urine Yellow (Yellow); Glucose, Dipstick Normal (Normal); Ketone-Dipstick Negative (Negative); Leukocyte Esterase-Dipstick 500 /ul (Negative); Nitrite-Dipstick Positive (Negative); Occult Blood-Urine 10 /ul (Negative); Protein-Dipstick 15 mg/dl (Negative); Urine Bilirubin Dipstick Negative (Negative); Urine Clarity Clear (Clear); Urine Urobilinogen Normal (Normal)
[2018-12-16 12:13] LABS: Bacteria 3+ /hpf (None Seen); Squamous Epithelial Cells - UA 0-5 SEEN /hpf (5-10); White Blood Cells 25-50 SEEN /hpf (0-5)
[2018-12-16] MEDS: Metoprolol Tartrate 5 MG/5 ML Vial IV (12:44)
--- NOTE | 2018-12-16 13:22 | NURSING ---
PCU AFIB WITH RVR, ACUTE CHF PAINTSIL
--- NOTE | 2018-12-16 13:22 | PCM.HP.STD ---
Problem List (1) Iron deficiency anemia due to chronic blood loss Status: Chronic (2) Physical debility Status: Resolved (3) Type 2 diabetes mellitus Status: Chronic Qualifiers: Diabetes mellitus assisted insulin use: with terminal press operator use Diabetes mellitus complication status: with other specified complication Qualified Code(s): E11.69 - Type 2 diabetes mellitus with other specified complication; Z79.4 - long term care social worker (current) use of insulin (4) Morbid obesity Status: Chronic (5) Diastolic CHF, acute on chronic Status: Acute History of Present Illness Date of Admission: 12/16/18 Chief Complaint: Shortness of breath, palpitations The patient is a 68 year old F with multiple comorbidities who was recently admitted for anemia. She was admitted with hemoglobin 5.9, was transfused 3 units of packed RBC. Discharge hemoglobin was 9.6. Patient presents with progressive shortness of breath, palpitations but denies any dizziness or chest pain. She denied any worsening leg edema. In the emergency department, she was found to be in A. fib with RVR on EKG. Her admitting vitals showed patient 98F, heart rate 111, respiratory rate is 22, blood pressure is 144/69, SPO2 is 96% on 4 L of oxygen. Admitting labs showed BBC count of 13.4, hemoglobin 9.9, platelet count 435, BUN is 33, creatinine is 1.21, glucose is 208, troponin 0.032, BMP lipase 190.1 UA is clear, nitrite positive, leukocyte Estrace 500 WBC 25-50. Admitting chest x-ray was suggestive of atelectasis/scarring Past Medical History Past Medical History (Chronic Problems): Chronic Problems (Last Updated 12/14/18 @ 17:17 by Pito Mckeon DO) Acute kidney injury superimposed on chronic kidney disease (Chronic) 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) CAD in [place] artery (Chronic) Edema (Chronic) Type 2 diabetes mellitus (Chronic) Nonrheumatic aortic (valve) stenosis (Chronic) Pure hypercholesterolemia (Chronic) Essential hypertension (Chronic) COPD with acute exacerbation (Chronic) Respiratory failure (Chronic) Depression (Chronic) Morbid obesity (Chronic) Pulmonary hypertension (Chronic) CKD stage 3 secondary to diabetes (Chronic) Chronic diastolic (congestive) heart failure (Chronic) Cerebral infarction, unspecified (Chronic) Palpitations (Chronic) Anxiety (Chronic) Left atrial enlargement (Chronic) Hypersomnia (Chronic) Anemia (Chronic) Carotid artery stenosis (Chronic) Chronic hypoxemic respiratory failure (Chronic) Pulmonary fibrosis (Chronic) 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 3 severe COPD by GOLD classification (Chronic) Pulmonary hypertension (Chronic) With PA pressures 55 by cardiac catheterization 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) Medical History: Medical History (Last Updated 12/14/18 @ 17:17 by Pito Mckeon DO) Type 2 diabetes mellitus (Chronic) E11.9 Nonrheumatic aortic (valve) stenosis (Chronic) I35.0 Pure hypercholesterolemia (Chronic) E78.00 Essential hypertension (Chronic) I10 Respiratory failure (Chronic) J96.90 Depression (Chronic) F32.9 Morbid obesity (Chronic) E66.01 COPD exacerbation (Resolved) J44.1 Pulmonary hypertension (Chronic) I27.20 Diastolic CHF, acute on chronic (Acute) I50.33 CKD stage 3 secondary to diabetes (Chronic) E11.22, N18.3 Chronic diastolic (congestive) heart failure (Chronic) I50.32 Cerebral infarction, unspecified (Chronic) I63.9 Palpitations (Chronic) R00.2 Anxiety (Chronic) F41.9 Left atrial enlargement (Chronic) I51.7 Hypersomnia (Chronic) G47.10 Anemia (Chronic) D64.9 Carotid artery stenosis (Chronic) I65.29 Chronic hypoxemic respiratory failure (Chronic) J96.11 Pulmonary fibrosis (Chronic) J84.10 Tobacco dependence in remission (Chronic) F17.201 Stage 3 severe COPD by GOLD classification (Chronic) J44.9 Pulmonary hypertension (Chronic) With PA pressures 55 by cardiac catheterization 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 Blackmon in 2011, suspected AV malformations Acute on chronic anemia (Inactive) Aortic stenosis (Inactive) Moderate to severe with valve area 1.1 on cardiac catheterization in 2013 Aortic valve stenosis (Inactive) I35.0 HLD (hyperlipidemia) (Inactive) E78.5 Hypertension (Inactive) I10 Allergies No Known Allergies Allergy (Verified 12/16/18 10:05) Home Medications: Ambulatory Orders Medication Instructions Recorded Simvastatin [Zocor] 20 mg PO QHS 01/15/14 Escitalopram Oxalate [Lexapro] 10 mg PO DAILY 06/29/15 traZODone [Desyrel] 100 mg PO QHS PRN PRN 06/29/15 Budesonide/Formoterol Fumarate 2 puff IH BID 03/27/17 [Symbicort 160-4.5 Mcg Inhaler] Fluticasone 0.05% [Flonase Nasal 1 spray NASAL BID PRN 04/24/17 [place]] Acetaminophen [Tylenol Tablet] 650 mg PO Q6H PRN PRN tab 06/10/17 Albuterol Sulfate [Ventolin Hfa] 1 - 2 puff INHALATION PRN PRN 01/02/18 Ipratropium/Albuterol Sulfate 3 ml INHALATION Q4H PRN 04/01/18 [Duoneb] Metoprolol Tartrate [Lopressor 25 mg PO BID 06/20/18 (beta lorena)] metolazone 2.5 mg tablet 2.5 mg PO QWEEK 07/03/18 glipizide 5 mg tablet 5 mg PO BID 09/08/18 omeprazole magnesium 20 mg 20 mg PO DAILY 09/08/18 tablet,delayed release promethazine 25 mg tablet 25 mg PO Q6H PRN 09/08/18 potassium chloride ER 20 mEq 40 meq PO DAILY 90 Days #180 tab 09/17/18 tablet,extended release(part/cryst) Dexamethasone [Decadron] 2 mg PO DAILY 10/18/18 Torsemide 20 mg PO BID #0 10/22/18 Insulin Glargine,Hum.rec.anlog 30 unit SUBCUT QHS 12/13/18 [Lantus Solostar] Oxycodone [Oxyir] 5 mg PO Q6H PRN PRN 12/13/18 Ferrous Sulfate 325 mg PO BIDCM 12/16/18 Insulin Lispro [Humalog KwikPen] 10 unit SUBCUT TIDAC 12/16/18 Surgical History: Surgical History (Last Reviewed 06/21/18 @ 04:30 by Edson Mooney MD) History of hernia repair Z98.890, Z87.19 History of hysterectomy Z90.710 History of left heart catheterization Z98.890 X 2 Surgical History: herniorrhaphy, hysterectomy Psychiatric History: Anxiety, Depression TAG CLERK History: No pertinent TAG CLERK history Lives: Spouse/ Significant Other Smoking Status: Never smoker Tobacco Use: Non-smoker Alcohol: None Drugs: None - *Family History Paternal Family History: Family History (Last Reviewed 06/21/18 @ 04:30 by Edson Mooney MD) Mother Heart disease Father CAD (coronary artery disease) Hypertension Brother Hypertension History Items: Heart Disease, Hypertension Maternal Family History: Family History (Last Reviewed 06/21/18 @ 04:30 by Edson Mooney MD) Mother Heart disease Father CAD (coronary artery disease) Hypertension Brother Hypertension History Items: Heart Disease Review of Systems Constitutional: Reports: Malaise, Weakness, Fatigue. Denies: Anorexia, Chills, Fever, Weight Change Eyes: Denies: Blurred vision, Cataracts, Conjunctivae Inflammation, Pain, Redness, Vision Change HEENT: Denies: Difficulty Hearing, Difficulty Swallowing, Head Aches, Hearing Changes, Sinus Congestion, Sinus Drainage, Sore Throat Cardiovascular: Reports: Light Headedness, Palpitations. Denies: Chest Pain, Claudication, Orthopnea, Paroxysmal Noc. Dyspnea Respiratory: Reports: Shortness of Breath, Shortness of breath at rest, Shortness of breath upon exertion. Denies: Cough, Hemoptysis, Sputum production Gastrointestinal: Denies: Abdominal Pain, Hematemesis, Hematochezia, Nausea, Vomiting Genitourinary: Denies: Dysuria, Frequency, Incontinence Musculoskeletal: Denies: Arm Pain, Back Pain, Joint Pain, Joint stiffness, Joint swelling, Joint Tenderness Skin: Denies: Rash, Wounds Neurological: Denies: Numbness, Tingling, Focal weakness Psychiatric: Denies: Anxiety, Depression, Homicidal Ideations, Suicidal Ideations Hematologic/ Lymphatic: Denies: Easy Bruising, Easy Bleeding VTE Information - Inpt Only VTE Present on Admission: No VTE Pharm Prophylaxis ordered?: Yes - Physical Exam General: Alert, Oriented x3, Cooperative, - - Mild respiratory distress, super morbidly obese HEENT: Atraumatic, PERRLA, EOMI, Normocephalic Oral: Moist Mucosa Neck: Supple Lungs: Clear to auscultation, Normal air movement Cardiovascular: Regular rate, Regular Rhythm, Normal S1, Normal S2, No murmurs Abdomen: Bowel Sounds Present, Soft, Non Tender, Non-Distended, No Hepato-splenomegaly, Obese Extremities: No edema Skin: No rashes, No breakdown Musculoskeletal: No Tenderness to Palpation of Joints or Extremities Lymphatic: No Cervical, Supraclavicular, or Inguinal Adenopathy Neurological: Cranial nerves II-XII grossly intact, Neuro grossly intact Psych/Mental Status: Normal Affect, Appropriate Vital Signs Temp Pulse Resp BP Pulse Ox 98 F 99 20 H 105/70 94 12/16/18 10:02 12/16/18 12:45 12/16/18 12:45 12/16/18 12:45 12/16/18 12:45 Oxygen Flow Rate (L/min) 4 Oxygen Delivery Method Nasal Cannula Weight: 129.9 kg Body Mass Index (BMI) 50.7 Finger Stick Blood Glucose 478 Intake and Output for Last 24 Hours 12/14/18 12/15/18 12/16/18 23:59 23:59 23:59 Output Total 400 / 400 Balance -400 / -400 Laboratory Tests Past 24 Hrs 12/16/18 12/16/18 12/16/18 11:10 11:10 11:10 WBC 13.4 H RBC 3.67 L Hgb 9.9 L Hct 34.4 L MCV 93.7 MCH 27.0 MCHC 28.8 L RDW Std Deviation 61.3 H RDW [place]eff [place] 18.3 H Plt Count 435 MPV 8.8 Immature Gran % (Auto) 3.700 H Neut % (Auto) 83.3 H Lymph % (Auto) 3.5 L [place] % (Auto) 8.1 Eos % (Auto) 1.0 Baso % (Auto) 0.4 Absolute Neuts (auto) 11.1 H Absolute Lymphs (auto) 0.47 L Nucleated RBC % 0.7 Differential Comment COMMENT Sodium 140 Potassium 3.6 Chloride 93 L Carbon Dioxide 44.0 H Anion Gap 3 L BUN 33 H Creatinine 1.21 H Estim Creat Clear Calc 35.79 Est GFR (MDRD) Af Amer 57 L Est GFR (MDRD) Non-Af 47 L BUN/Creatinine Ratio 27.3 H Glucose 208 H Calcium 8.4 L Troponin I 0.032 B-Natriuretic Peptide 190.1 H Urine Color Urine Clarity Urine pH Ur Specific [place] Urine Protein Urine Glucose (UA) Urine Ketones Urine Occult Blood Urine Nitrite Urine Bilirubin Urine Urobilinogen Ur Leukocyte Esterase Urine RBC Urine WBC Ur Squamous Epith Cells Urine Bacteria Urine Mucus 12/16/18 11:45 WBC RBC Hgb Hct MCV MCH MCHC RDW Std Deviation RDW [place] Plt Count MPV Immature Gran % (Auto) Neut % (Auto) Lymph % (Auto) [place] % (Auto) Eos % (Auto) Baso % (Auto) Absolute Neuts (auto) Absolute Lymphs (auto) Nucleated RBC % Differential Comment Sodium Potassium Chloride Carbon Dioxide Anion Gap BUN Creatinine Estim Creat Clear Calc Est GFR (MDRD) Af Amer Est GFR (MDRD) Non-Af BUN/Creatinine Ratio Glucose Calcium Troponin I B-Natriuretic Peptide Urine Color Yellow Urine Clarity Clear Urine pH 5.0 Ur Specific [place] 1.020 Urine Protein 15 H Urine Glucose (UA) Normal Urine Ketones Negative Urine Occult Blood 10 H Urine Nitrite Positive H Urine Bilirubin Negative Urine Urobilinogen Normal Ur Leukocyte Esterase 500 H Urine RBC 0 SEEN Urine WBC 25-50 SEEN Ur Squamous Epith Cells 0-5 SEEN Urine Bacteria 3+ Urine Mucus 0 SEEN Assessment/Plan All Active Problems (Last Updated 12/14/18 @ 17:17 by Pito Mckeon DO) Complicated UTI (urinary tract infection) (Resolved) Severe hyperglycemia due to diabetes mellitus (Acute) Hyperkalemia, diminished renal excretion (Resolved) Physical debility (Resolved) Generalized weakness (Acute) Recurrent falls (Resolved) Abnormal cardiac enzyme level (Resolved) Shortness of breath (Acute) Increased heart rate (Acute) Acute respiratory failure with hypoxia and hypercapnia (Resolved) Elevated troponin I level (Resolved) Hyperglycemia due to type 2 diabetes mellitus (Acute) Acute encephalopathy (Resolved) COPD exacerbation (Resolved) Diastolic CHF, acute on chronic (Acute) CVA (cerebral vascular accident) (Resolved) CVA (cerebral vascular accident) (Resolved) History of GI bleeding (Resolved) 68 year old F with multiple comorbidities who was recently admitted for anemia comes in with progressive shortness of breath and palpitations 1. A. fib with RVR, started on Cardizem drip, not on anticoagulation, history of chronic GI bleed Plan: Admit to PCU, monitor on telemetry, added on Cardizem drip, continue also on metoprolol 2. Acute on chronic diastolic CHF, mild, continue on Lasix 40 mg IV 3 times daily Strict I's and O's, CHF protocol 3. Acute UTI, started on IV ceftriaxone, no urine culture taken, also had Epstein catheter placed in the ED for fluid management Epstein catheter removed on the floor, will continue IV ceftriaxone for a total of 3 days. Will hold off request for urine cultures because of possibility of contamination from use of epstein catheter as well as poor sensitivity from start of antibiotics as well as use of Epstein catheter. 3. Hypertension, controlled, continue home metoprolol 4. Anemia of chronic blood loss, history of chronic GI bleed secondary to AVMs Recently transfused 3 units of packed RBCs, hemoglobin today is 9.9, will continue to monitor 5. Type II DM, continue home insulin regimen, continue to follow with blood glucose check 6. CKD stage III, secondary to type II DM, creatinine is at baseline, will continue to monitor 7. Super morbid obesity, BMI 50.0, lifestyle modification requested 8. DVT prophylaxis with Lovenox subcu Code Visit Inpatient E&M: 70767 Init Hosp L3
--- NOTE | 2018-12-16 13:52 | ED.RN ---
It has been 56 min since ATB Rocephin has been order and has not been recieved by pharmacy. Pt transferred to floor for further care. Pharmacy and PCU notified.
[2018-12-16] MEDS: Ceftriaxone 1 GM/50 ML BAG IV (15:19)
[2018-12-16 15:41] LABS: Bedside Glucose 171 mg/dL (70-110)
[2018-12-16] MEDS: Ferrous Sulfate 325 MG Tablet PO (15:49)
[2018-12-16] MEDS: Insulin Lispro 100 UNIT/ML INSULN.PEN 10 UNIT SC (15:49)
[2018-12-16] MEDS: Insulin Lispro 100 UNIT/ML INSULN.PEN SC ×2 (15:50→21:55)
--- NOTE | 2018-12-16 17:30 | NURSING ---
this RN has reviewed all charting completed by SN
[2018-12-16] MEDS: Metoprolol Tartrate 25 MG Tablet PO (17:35)
[2018-12-16] MEDS: 0.9% NaCl Peripheral Flush Adult/Peds IV ×2 (18:06→21:55)
[2018-12-16] MEDS: Ipratropium/Albuterol Sulfate 3 ML AMPUL.NEB INHALATION (19:01)
[2018-12-16] MEDS: Budesonide Respules 0.5 MG/2 ML AMPUL.NEB. INHALATION (19:01)
[2018-12-16] MEDS: Furosemide 40 MG/4 ML Vial IV (21:53)
[2018-12-16 22:05] LABS: Bedside Glucose 259 mg/dL (70-110)
[2018-12-16] MEDS: Metoprolol Tartrate 50 MG Tablet PO (22:06)
[2018-12-16] MEDS: Atorvastatin Calcium 10 MG Tablet PO (22:09)
[2018-12-16] MEDS: traZODone 100 MG Tablet PO (22:48)
[2018-12-17] VITALS (19 sets, daily range): BP systolic 102–121; BP diastolic 47–69; PULSE 66–101; RESP 16–20; TEMP 36.5–36.7; O2SAT 88–98
[2018-12-17] MEDS: oxyCODONE 5 MG Tablet PO ×2 (05:29→21:41)
[2018-12-17] MEDS: Furosemide 40 MG/4 ML Vial IV ×3 (05:30→21:43)
[2018-12-17 06:23] LABS: Absolute Lymphocyte Count 0.51 X10^3/uL (0.83-4.51); Absolute Neutrophil Count 9.5 X10^3/uL (2.0-7.7); Basophil% 0.5 % (0-1); Eosinophils% 2.8 % (0-5); Hematocrit 32.7 % (37-47); Hemoglobin 9.2 g/dL (12.0-15.0); Lymphocyte # 0.51 X10^3/ul (4.0); Lymphocyte % 4.4 % (19-41); Mean Corp Hgb Conc 28.1 g/dL (32-36); Mean Corpuscular Hgb 26.7 pg (27.0-32.0); Mean Corpuscular Volume 94.8 fL (81-99); Mean Platelet Vol. 9.2 fl (6.2-12.0); Neutrophil # 9.46 X10^3/uL (2.7-7.7); Neutrophil % 80.9 % (47-70); POSITIVE DIFFERENTIAL YES; Platelet Count 347 K/mm3 (150-450); RBC Distribution Width CV 18.7 % (11.6-14.6); RBC Distribution Width SD 63.3 fl (35.1-43.9); Red Blood Count 3.45 M/mm3 (4.2-5.4); White Blood Count 11.7 K/mm3 (4.4-11.0)
[2018-12-17 06:24] LABS: Basophil# 0.06 X10^3/uL; Eosinophil# 0.33 X10^3/uL; Monocyte# 0.93 X10^3/uL; NRBC Flagged by Analyzer 0.4 % (0-5)
[2018-12-17 06:36] LABS: AST(SGOT) 11 U/L (15-37); Alanine Aminotransfer ALT/SGPT 30 U/L (13-56); Albumin, Serum 2.9 g/dL (3.2-5.0); Alkaline Phosphatase 71 U/L (45-117); Anion Gap 7 (5-15); BUN 37 mg/dL (7-18); BUN/Creat Ratio 33.6 RATIO (10-20); Chloride 92 mmol/L (98-107); EST Glomerular Filtration Rate 52 mL/min (>60); Est Glom Filt Rate - Afr Amer 63 mL/min (>60); Estimated Creatinine Clearance 39.37 ml/min; Glucose 176 mg/dL (74-106); Protein, Total 5.9 g/dL (6.4-8.2); Sodium Level 140 mmol/L (136-145)
[2018-12-17 06:49] LABS: Differential Indicated SCAN CRITERIA MET
[2018-12-17] MEDS: Ipratropium/Albuterol Sulfate 3 ML AMPUL.NEB INHALATION ×4 (06:50→19:48)
[2018-12-17] MEDS: Budesonide Respules 0.5 MG/2 ML AMPUL.NEB. INHALATION ×2 (06:51→19:47)
[2018-12-17 07:03] LABS: Differential Comment SCANNED; Polychromasia 1+
[2018-12-17] MEDS: Insulin Lispro 100 UNIT/ML INSULN.PEN SC ×4 (08:50→21:42)
[2018-12-17] MEDS: Insulin Lispro 100 UNIT/ML INSULN.PEN 10 UNIT SC ×3 (08:51→16:49)
[2018-12-17] MEDS: dexAMETHasone 4 MG Tablet 2 MG PO (08:52)
[2018-12-17] MEDS: Ferrous Sulfate 325 MG Tablet PO ×2 (08:52→16:49)
[2018-12-17] MEDS: Escitalopram Oxalate 10 MG Tablet PO (08:54)
[2018-12-17] MEDS: Metoprolol Tartrate 50 MG Tablet PO (08:54)
[2018-12-17] MEDS: Pantoprazole Sodium 20 MG Tablet PO (08:55)
[2018-12-17] MEDS: 0.9% NaCl Peripheral Flush Adult/Peds IV ×3 (08:56→21:49)
[2018-12-17] MEDS: Ceftriaxone 1 GM/50 ML BAG IV (08:56)
[2018-12-17 09:16] LABS: Bedside Glucose 181 mg/dL (70-110)
--- NOTE | 2018-12-17 10:58 | CASEMGMT ---
ANTONIO noted in nursing handoff patient was interested in going to a detention to live. ANTONIO met with patient, introduced self and role at [facility]. SW let her know that this would be private pay. She said they cannot afford that. SW asked if she wanted to go somewhere skilled short term. She said if insurance will pay for it she would like to go to [facility]. SW told her SW will check with [facility]. Chey AGUIRRE MSW
[2018-12-17 11:06] LABS: Bedside Glucose 239 mg/dL (70-110)
--- NOTE | 2018-12-17 11:12 | CASEMGMT ---
ANTONIO called [facility] and patient was there from 10-22-18 to 12-01-18. ANTONIO will send referral once PT/OT sees patient. Chey AGUIRRE MSW
--- NOTE | 2018-12-17 12:50 | NURSING ---
wound photo: right medial lower leg
--- NOTE | 2018-12-17 12:51 | NURSING ---
wound photo: left dorsal foot
--- NOTE | 2018-12-17 12:57 | CASEMGMT ---
Referral sent to [facility]. Chey AGUIRRE SUPERVISOR DEHYDROGENATION
--- NOTE | 2018-12-17 13:41 | NURSING ---
read and reviewed all SN documentation
--- NOTE | 2018-12-17 15:46 | CASEMGMT ---
Received call from [facility] and they can accept patient. SW let patient know this information. Plan: d/c to [facility]. Chey AGUIRRE MSW
[2018-12-17 16:31] LABS: Bedside Glucose 286 mg/dL (70-110)
--- NOTE | 2018-12-17 16:34 | PCM.PN.HOSP ---
Subjective: Patient was seen and examined. She feels much improved. In NSR, HR is in the 80-90s. Denies any chest pain or dizziness or palpitation. Objective: Physical Exam General: Alert, Oriented x3, Cooperative, comfortable super morbidly obese, on 3L oxygen HEENT: Atraumatic, PERRLA, EOMI, Normocephalic Oral: Moist Mucosa Neck: Supple Lungs: Clear to auscultation, Normal air movement Cardiovascular: Regular rate, Regular Rhythm, Normal S1, Normal S2, No murmurs Abdomen: Bowel Sounds Present, Soft, Non Tender, Non-Distended, No Hepato-splenomegaly, Obese Extremities: Bilateral pedal edema +1, with chronic venous stasis ulcers on right medial lower leg, 2 ulcers on dorsum of left foot Skin: No rashes, No breakdown Musculoskeletal: No Tenderness to Palpation of Joints or Extremities Lymphatic: No Cervical, Supraclavicular, or Inguinal Adenopathy Neurological: Cranial nerves II-XII grossly intact, Neuro grossly intact Psych/Mental Status: Normal Affect, Appropriate Vitals/I&O's: Vital Signs Temp Pulse Resp BP Pulse Ox 98.1 F 93 18 121/69 H 96 12/17/18 15:35 12/17/18 15:35 12/17/18 15:35 12/17/18 15:35 12/17/18 15:35 Oxygen Flow Rate (L/min) 3 Oxygen Delivery Method Nasal Cannula Weight: 128 kg Body Mass Index (BMI) 49.9 Finger Stick Blood Glucose 478 Intake and Output for Last 24 Hours 12/15/18 12/16/18 12/17/18 23:59 23:59 23:59 Intake Total 862.17 / 862.17 645.33 / 645.33 Output Total 1360 / 1360 650 / 650 Balance -497.83 / -497.83 -4.67 / -4.67 Laboratory Results 12/16/18 21:48: POC Glucose 259 H 12/17/18 06:05: WBC 11.7 H, RBC 3.45 L, Hgb 9.2 L, Hct 32.7 L, MCV 94.8, MCH 26.7 L, MCHC 28.1 L, RDW Std Deviation 63.3 H, RDW Coeff of [place] 18.7 H, Plt Count 347, MPV 9.2, Immature Gran % (Auto) 3.400 H, Neut % (Auto) 80.9 H, Lymph % (Auto) 4.4 L, [place] % (Auto) 8.0, Eos % (Auto) 2.8, Baso % (Auto) 0.5, Absolute Neuts (auto) 9.5 H, Absolute Lymphs (auto) 0.51 L, Nucleated RBC % 0.4, Differential Comment SCANNED, Polychromasia 1+ 12/17/18 06:05: Sodium 140, Potassium 3.0 L, Chloride 92 L, Carbon Dioxide 41.0 H, Anion Gap 7, BUN 37 H, Creatinine 1.10 H, Estim Creat Clear Calc 39.37, Est GFR (MDRD) Af Amer 63, Est GFR (MDRD) Non-Af 52 L, BUN/Creatinine Ratio 33.6 H, Glucose 176 H, Calcium 8.0 L, Total Bilirubin 0.40, AST 11 L, ALT 30, Alkaline Phosphatase 71, Total Protein 5.9 L, Albumin 2.9 L, Globulin 3.0, Albumin/Globulin Ratio 1.0 12/17/18 07:54: POC Glucose 181 H 12/17/18 10:56: POC Glucose 239 H 12/17/18 16:26: POC Glucose 286 H Current Medications Acetaminophen (Tylenol) 650 mg PO Q6H PRN PRN PRN Reason: Mild pain 1-3/Temp > 100.7 F Al Hydroxide/Mg Hydroxide (Mylanta Ii) 30 ml PO Q6H PRN PRN PRN Reason: Gastric Burning Albuterol/Ipratropium (Duoneb) 3 ml INHALATION Q4H.RT [facility] Last Admin: 12/17/18 14:57 Dose: 3 ml Documented by: Atorvastatin Calcium (Lipitor) 10 mg PO QHS [facility] Last Admin: 12/16/18 22:09 Dose: 10 mg Documented by: Budesonide (Pulmicort Aerosol) 0.5 mg INHALATION Q12H.RT [facility] Last Admin: 12/17/18 06:51 Dose: 0.5 mg Documented by: Dexamethasone (Decadron) 2 mg PO DAILY@0800 [facility] Last Admin: 12/17/18 08:52 Dose: 2 mg Documented by: Dextrose (D50w Syringe) 0 gm IV X1 PRN; Protocol PRN Reason: Hypoglycemia Docusate Sodium (Colace) 100 mg PO BID PRN PRN PRN Reason: Constipation Escitalopram Oxalate (Lexapro) 10 mg PO DAILY [facility] Last Admin: 12/17/18 08:54 Dose: 10 mg Documented by: Ferrous Sulfate (Ferrous Sulfate) 325 mg PO BIDCM [facility] Last Admin: 12/17/18 08:52 Dose: 325 mg Documented by: Fluticasone Propionate (Flonase Nasal [place]) 1 spray NASAL BID PRN PRN Reason: ALLERGIES Furosemide (Lasix) 40 mg IV Q8 [facility] Last Admin: 12/17/18 13:05 Dose: 40 mg Documented by: Glucagon () 1 mg IM .X1 PRN PRN Reason: Hypoglycemia Ceftriaxone Sodium (Rocephin) 1 gm in 50 mls @ 100 mls/hr IV Q24 [facility] Last Infusion: 12/17/18 09:26 Dose: Infused Documented by: Sodium Chloride () 250 mls @ 15 mls/hr IV .[id number] PRN PRN Reason: SALINE FLUSH Insulin Glargine (Lantus (Bkc)) 30 units SC QHS [facility] Last Admin: 12/16/18 22:09 Dose: 30 units Documented by: Insulin Human Lispro (Humalog Kwikpen (Bkc)) 0 unit SC ACHS [facility]; Protocol Last Admin: 12/17/18 11:33 Dose: 2 units Documented by: Insulin Human Lispro (Humalog Kwikpen (Bkc)) 10 unit SC TIDAC [facility] Last Admin: 12/17/18 11:33 Dose: 10 u Documented by: Melatonin (Melatonin) 3 mg PO QHS PRN PRN PRN Reason: INSOMNIA Metoprolol Tartrate (Lopressor (Beta [place])) 50 mg PO BID [facility] Last Admin: 12/17/18 08:54 Dose: 50 mg Documented by: Nitroglycerin (Nitrostat) 0.4 mg SUBLINGUAL Q5M PRN PRN Reason: CARDIAC/CHEST PAIN Oxycodone HCl (Oxyir) 5 mg PO Q4H PRN PRN PRN Reason: Moderate Pain (4-6/10) Last Admin: 12/17/18 05:29 Dose: 5 mg Documented by: Pantoprazole Sodium (Protonix) 20 mg PO DAILY [facility] Last Admin: 12/17/18 08:55 Dose: 20 mg Documented by: Potassium Chloride (K-Dur) 40 meq PO DAILYCM [facility] Last Admin: 12/17/18 08:54 Dose: 40 meq Documented by: Promethazine HCl (Phenergan Tablet) 25 mg PO Q6H PRN PRN Reason: NAUSEA Psyllium Hydrophilic Mucilloid (Metamucil) 1 packet PO DAILY PRN PRN PRN Reason: Constipation Sodium Chloride () 5 - 15 ml IV UD PRN PRN Reason: SALINE FLUSH Last Admin: 12/17/18 13:06 Dose: 10 ml Documented by: Trazodone HCl (Desyrel) 100 mg PO QHS PRN PRN PRN Reason: SLEEP Last Admin: 12/16/18 22:48 Dose: 100 mg Documented by: Medical Necessity - Tobacco Use Smoking Status: Never smoker Tobacco Use: Non-smoker Assessment/Plan All Active Problems (Last Updated 12/14/18 @ 17:17 by Pito Mckeon DO) Complicated UTI (urinary tract infection) (Resolved) Severe hyperglycemia due to diabetes mellitus (Acute) Hyperkalemia, diminished renal excretion (Resolved) Physical debility (Resolved) Generalized weakness (Acute) Recurrent falls (Resolved) Abnormal cardiac enzyme level (Resolved) Shortness of breath (Acute) Increased heart rate (Acute) Acute respiratory failure with hypoxia and hypercapnia (Resolved) Elevated troponin I level (Resolved) Hyperglycemia due to type 2 diabetes mellitus (Acute) Acute encephalopathy (Resolved) COPD exacerbation (Resolved) Diastolic CHF, acute on chronic (Acute) CVA (cerebral vascular accident) (Resolved) CVA (cerebral vascular accident) (Resolved) History of GI bleeding (Resolved) 68 year old F with multiple comorbidities who was recently admitted for anemia comes in with progressive shortness of breath and palpitations 1. A. fib with RVR, in NSR, not on anticoagulation, history of chronic GI bleed Off cardizem drip, on metoprolol 50mg BID, will increase metoprolol to 75 mg twice daily, continue to monitor 2. Acute on chronic diastolic CHF, mildly improved, no much change in patient's weight, continue on Lasix 40 mg IV 3 times daily, will repeat BMP in a.m. Strict I's and O's, CHF protocol 3. Acute UTI, started on IV ceftriaxone, no urine culture taken, also had Whiteside catheter placed in the ED for fluid management Whiteside catheter removed on the floor, On day 2 of IV ceftriaxone, will aim for a total of 3 days. 4. Chronic hypoxic respiratory failure due to COPD, on 3 L oxygen at home, no signs of acute COPD exacerbation 5. Bilateral chronic venous stasis ulcers, noninfected, present on admission, wound nurse consulted, 6. Hypertension, controlled, continue home metoprolol 7. Anemia of chronic blood loss, history of chronic GI bleed secondary to AVMs Recently transfused 3 units of packed RBCs, hemoglobin today is 9.9, will continue to monitor 8. Type II DM, continue home insulin regimen, continue to follow with blood glucose check 9. CKD stage III, secondary to type II DM, creatinine is at baseline, will continue to monitor 10. Super morbid obesity, BMI 50.0, lifestyle modification requested 11. DVT prophylaxis with Lovenox subcu Code Visit Inpatient E&M: 01593 Subs Hosp L2
[2018-12-17] MEDS: traZODone 100 MG Tablet PO (21:41)
[2018-12-17] MEDS: Enoxaparin 30 MG/0.3 ML Syringe SC (21:42)
[2018-12-17] MEDS: Atorvastatin Calcium 10 MG Tablet PO (21:44)
[2018-12-17] MEDS: Metoprolol Tartrate 25 MG Tablet 75 MG PO (21:45)
[2018-12-17 21:55] LABS: Bedside Glucose 252 mg/dL (70-110)
[2018-12-18] VITALS (10 sets, daily range): BP systolic 97–144; BP diastolic 51–77; PULSE 78–95; RESP 16–24; TEMP 36.4–36.9; O2SAT 92–98
[2018-12-18] MEDS: 0.9% NaCl Peripheral Flush Adult/Peds IV (05:18)
[2018-12-18] MEDS: Furosemide 40 MG/4 ML Vial IV (05:19)
[2018-12-18 06:04] LABS: Absolute Lymphocyte Count 0.47 X10^3/uL (0.83-4.51); Absolute Neutrophil Count 10.3 X10^3/uL (2.0-7.7); Basophil# 0.06 X10^3/uL; Basophil% 0.5 % (0-1); Eosinophil# 0.15 X10^3/uL; Eosinophils% 1.2 % (0-5); Hematocrit 32.7 % (37-47); Hemoglobin 9.1 g/dL (12.0-15.0); Lymphocyte # 0.47 X10^3/ul (4.0); Lymphocyte % 3.9 % (19-41); Mean Corp Hgb Conc 27.8 g/dL (32-36); Mean Corpuscular Hgb 26.4 pg (27.0-32.0); Mean Corpuscular Volume 94.8 fL (81-99); Mean Platelet Vol. 9.3 fl (6.2-12.0); Monocyte# 0.76 X10^3/uL; Monocyte% 6.3 % (0-10); NRBC Flagged by Analyzer 0.3 % (0-5); Neutrophil # 10.27 X10^3/uL (2.7-7.7); Neutrophil % 85.4 % (47-70); POSITIVE DIFFERENTIAL YES; Platelet Count 343 K/mm3 (150-450); RBC Distribution Width CV 18.3 % (11.6-14.6); RBC Distribution Width SD 62.5 fl (35.1-43.9); Red Blood Count 3.45 M/mm3 (4.2-5.4)
[2018-12-18 06:24] LABS: Differential Indicated SCAN CRITERIA MET
[2018-12-18 06:31] LABS: Anion Gap 9 (5-15); BUN 40 mg/dL (7-18); Calcium,Total 8.5 mg/dL (8.5-10.1); Chloride 89 mmol/L (98-107); Creatinine, Serum 1.29 mg/dL (0.55-1.02); EST Glomerular Filtration Rate 43 mL/min (>60); Est Glom Filt Rate - Afr Amer 53 mL/min (>60); Estimated Creatinine Clearance 33.57 ml/min; Glucose 212 mg/dL (74-106); Potassium 3.5 mmol/L (3.5-5.1); Sodium Level 139 mmol/L (136-145)
[2018-12-18 06:44] LABS: Differential Comment SCANNED
[2018-12-18] MEDS: Budesonide Respules 0.5 MG/2 ML AMPUL.NEB. INHALATION (07:27)
[2018-12-18] MEDS: Ipratropium/Albuterol Sulfate 3 ML AMPUL.NEB INHALATION ×2 (07:27→10:56)
[2018-12-18 08:20] LABS: Bedside Glucose 208 mg/dL (70-110)
[2018-12-18] MEDS: Insulin Lispro 100 UNIT/ML INSULN.PEN SC ×2 (08:27→11:50)
[2018-12-18] MEDS: Insulin Lispro 100 UNIT/ML INSULN.PEN 10 UNIT SC ×2 (08:27→11:50)
[2018-12-18] MEDS: Metoprolol Tartrate 25 MG Tablet 75 MG PO (08:28)
[2018-12-18] MEDS: dexAMETHasone 4 MG Tablet 2 MG PO (08:28)
[2018-12-18] MEDS: Escitalopram Oxalate 10 MG Tablet PO (08:29)
[2018-12-18] MEDS: Enoxaparin 30 MG/0.3 ML Syringe SC (08:29)
[2018-12-18] MEDS: Ferrous Sulfate 325 MG Tablet PO (08:29)
[2018-12-18] MEDS: Pantoprazole Sodium 20 MG Tablet PO (08:30)
[2018-12-18] MEDS: Ceftriaxone 1 GM/50 ML BAG IV (08:30)
--- NOTE | 2018-12-18 10:58 | PCM.TXEXTCAR ---
- Diet 12/16/18 14:19 Diet: Cardiac/Low Cholesterol Food consistency:: Regular Liquid Consistency:: Regular/Thin Fluid restriction : 1500mls - Routine Orders/Code Status O2 Liters per Minute: 3 O2 Frequency: Continuous Keep PO Greater than or Equal to (%): 94 Routine Lab Work: CBC - within 3 days, BMP - within 3 days - Wound(s) L top of foot Wound Type: Neuropathic/Diabetic Foot Ulcer Dressing Change: Dry Sterile Dressing L lower leg Wound Type: Neuropathic/Diabetic Foot Ulcer Dressing Change: Dry Sterile Dressing left dorsal foot (more medial) Wound Type: Stasis Ulcer Dressing Change: Melgisorb left dorsal foot (more lateral) Wound Type: Stasis Ulcer Dressing Change: Melgisorb right medial lower leg Wound Type: Stasis Ulcer Dressing Change: Melgisorb - Therapies Weight Bearing: Weight bearing as tolerated Extremity Affected:: Bilateral Lower Physical Therapy: Eval and Treat Occupational Therapy: Eval and Treat - Problem/Diagnosis (1) Iron deficiency anemia due to chronic blood loss Status: Chronic Current Visit: No (2) Type 2 diabetes mellitus Status: Chronic Current Visit: Yes (3) Morbid obesity Status: Chronic Current Visit: Yes (4) Diastolic CHF, acute on chronic Status: Acute Current Visit: Yes (5) Atrial fibrillation with RVR Status: Acute Current Visit: Yes (6) Essential hypertension Status: Chronic Current Visit: Yes (7) Chronic hypoxemic respiratory failure Status: Chronic Current Visit: Yes - Allergies/Procedures Done in Hospital Allergies/Adverse Reactions: Allergies No Known Allergies Allergy (Verified 12/16/18 10:05) Procedures: None - Type of Care/Length of Stay Estimated LOS: Convalescent Care Less Than 30 days Type of Care Needed: Skilled Rehab Potential: Good Prognosis: Good - Additional Orders/Day of Discharge Additional Orders: Continue on strict CHF protocol. Daily weights, 1500mls fluid restriction. Continue to encourage use of oxygen. CHADD-wraps to legs 12 hours on, 12 hours off. Wound RN consult in SNF. Encourage use of incentive spirometer. Day of Discharge: 12/18/18 - Follow Up Care Primary Care Physician: Vic Chen MD [Primary Care Provider] - Please follow up with your Primary Care Physician in: within 1-2 weeks
--- NOTE | 2018-12-18 11:04 | DS.PCM_ITS ---
Discharge Date and Diagnosis Date of Admission: 12/16/18 Date of Discharge: 12/18/18 - Primary Discharge Diagnosis Active and Suspected Problems (Last Updated 12/14/18 @ 17:17 by Pito Mckeon DO) A. fib with RVR Acute on chronic diastolic CHF Acute UTI Bilateral chronic venous stasis ulcers, noninfected, POA Super Morbid obesity - Secondary Discharge Diagnosis Chronic Problems (Last Updated 12/14/18 @ 17:17 by Pito Mckeon DO) Acute kidney injury superimposed on chronic kidney disease (Chronic) 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) CAD in [place] artery (Chronic) Edema (Chronic) Type 2 diabetes mellitus (Chronic) Nonrheumatic aortic (valve) stenosis (Chronic) Pure hypercholesterolemia (Chronic) Essential hypertension (Chronic) COPD with acute exacerbation (Chronic) Respiratory failure (Chronic) Depression (Chronic) Morbid obesity (Chronic) Pulmonary hypertension (Chronic) CKD stage 3 secondary to diabetes (Chronic) Chronic diastolic (congestive) heart failure (Chronic) Cerebral infarction, unspecified (Chronic) Palpitations (Chronic) Anxiety (Chronic) Left atrial enlargement (Chronic) Hypersomnia (Chronic) Anemia (Chronic) Carotid artery stenosis (Chronic) Chronic hypoxemic respiratory failure (Chronic) Pulmonary fibrosis (Chronic) 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 3 severe COPD by GOLD classification (Chronic) Pulmonary hypertension (Chronic) With PA pressures 55 by cardiac catheterization 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 Electronically Signed: Jonah Conner, at 10:43 EDT , Service support , Consultations 12/16/18 19:22 Consult: Onc/Wound/information systems security developer Routine Comment: Reason for Consult:: BLE stasis ulcer Operations: None Procedures: None Summary of Care Provided: 68 year old F with multiple comorbidities who was recently admitted for anemia comes in with progressive shortness of breath and palpitations. It was found to be in A. fib with RVR and started on Cardizem bolus and drip. She was also found to be in acute CHF. Patient's management on the telemetry floor has been that of Harsha lemus with RVR as well as acute on chronic diastolic CHF. Patient was managed on IV Lasix 40 mg 3 times daily, as well as Cardizem drip. She converted to normal sinus rhythm and her metoprolol was increased to 75 mg twice daily. She was also found to have acute UTI and completed 3 doses of IV ceftriaxone. She remained on her home 3 L of oxygen. Of note is a patient had bilateral chronic venous stasis ulcers which are noninfected endorsed that was present on admission. Wound nurse was consulted and recommendations were followed. Patient continued to be stable and skilled for discharge to snf facility. Subjective: On the day of discharge, patient was seen and examined. Denied any new complaints. She feels improved. On 3 L of oxygen. Objective: Physical Exam General: Alert, Oriented x3, Cooperative, comfortable super morbidly obese, on 3L oxygen HEENT: Atraumatic, PERRLA, EOMI, Normocephalic Oral: Moist Mucosa Neck: Supple Lungs: Clear to auscultation, Normal air movement Cardiovascular: Regular rate, Regular Rhythm, Normal S1, Normal S2, No murmurs Abdomen: Bowel Sounds Present, Soft, Non Tender, Non-Distended, No Hepato- splenomegaly, Obese Extremities: Bilateral pedal edema +1, with chronic venous stasis ulcers on right medial lower leg, 2 ulcers on dorsum of left foot Skin: No rashes, No breakdown Musculoskeletal: No Tenderness to Palpation of Joints or Extremities Lymphatic: No Cervical, Supraclavicular, or Inguinal Adenopathy Neurological: Cranial nerves II-XII grossly intact, Neuro grossly intact Psych/Mental Status: Normal Affect, Appropriate - Physical Exam Vital Signs Temp Pulse Resp BP Pulse Ox 98.4 F 82 24 H 97/51 L 94 12/18/18 10:11 12/18/18 10:11 12/18/18 10:11 12/18/18 10:11 12/18/18 10:11 Oxygen Flow Rate (L/min) 3 Oxygen Delivery Method Nasal Cannula Weight: 128 kg Body Mass Index (BMI) 49.9 Finger Stick Blood Glucose 478 Intake and Output for Last 24 Hours 12/16/18 12/17/18 12/18/18 23:59 23:59 23:59 Intake Total 862.17 / 862.17 1365.33 / 1365.33 290 / 290 Output Total 1360 / 1360 1400 / 1400 325 / 325 Balance -497.83 / -497.83 -34.67 / -34.67 -35 / -35 Laboratory Tests Past 24 Hrs 12/18/18 12/18/18 05:40 05:40 WBC 12.0 H RBC 3.45 L Hgb 9.1 L Hct 32.7 L MCV 94.8 MCH 26.4 L MCHC 27.8 L RDW Std Deviation 62.5 H RDW Coeff of [place] 18.3 H Plt Count 343 MPV 9.3 Immature Gran % (Auto) 2.700 H Neut % (Auto) 85.4 H Lymph % (Auto) 3.9 L [place] % (Auto) 6.3 Eos % (Auto) 1.2 Baso % (Auto) 0.5 Absolute Neuts (auto) 10.3 H Absolute Lymphs (auto) 0.47 L Nucleated RBC % 0.3 Differential Comment SCANNED Sodium 139 Potassium 3.5 Chloride 89 L Carbon Dioxide 41.0 H Anion Gap 9 BUN 40 H Creatinine 1.29 H Estim Creat Clear Calc 33.57 Est GFR (MDRD) Af Amer 53 L Est GFR (MDRD) Non-Af 43 L BUN/Creatinine Ratio 31.0 H Glucose 212 H Calcium 8.5 POC Glucose 12/18/18 12/17/18 12/17/18 08:17 21:37 16:26 POC Glucose 208 H 252 H 286 H 12/17/18 10:56 POC Glucose 239 H Discharge Diet: Low fat/ Low Cholesterol, 6 Cup Fluid Restriction, 2000 mg Sodium Diet Discharge Activity: Return to Normal Activity Home Medications: Medications to take at Discharge Simvastatin [Zocor] 20 mg PO QHS 01/15/14 Escitalopram Oxalate [Lexapro] 10 mg PO DAILY 06/29/15 traZODone [Desyrel] 100 mg PO QHS PRN PRN 06/29/15 Budesonide/Formoterol Fumarate [Symbicort 160-4.5 Mcg Inhaler] 2 puff IH BID 03/27/17 Fluticasone 0.05% [Flonase Nasal [place]] 1 spray NASAL BID PRN 04/24/17 Acetaminophen [Tylenol Tablet] 650 mg PO Q6H PRN PRN tab 06/10/17 Albuterol Sulfate [Ventolin Hfa] 1 - 2 puff INHALATION PRN PRN 01/02/18 Ipratropium/Albuterol Sulfate [Duoneb] 3 ml INHALATION Q4H PRN 04/01/18 metolazone 2.5 mg tablet 2.5 mg PO QWEEK 07/03/18 glipizide 5 mg tablet 5 mg PO BID 09/08/18 omeprazole magnesium 20 mg tablet,delayed release 20 mg PO DAILY 09/08/18 promethazine 25 mg tablet 25 mg PO Q6H PRN 09/08/18 potassium chloride ER 20 mEq tablet,extended release(part/cryst) 40 meq PO DAILY 90 Days #180 tab 09/17/18 Dexamethasone [Decadron] 2 mg PO DAILY 10/18/18 Insulin Glargine,Hum.rec.anlog [Lantus Solostar] 30 unit SUBCUT QHS 12/13/18 Oxycodone [Oxyir] 5 mg PO Q6H PRN PRN 12/13/18 Ferrous Sulfate 325 mg PO BIDCM 12/16/18 Insulin Lispro [Humalog KwikPen] 10 unit SUBCUT TIDAC 12/16/18 Acetaminophen [Tylenol Tablet] 650 mg PO Q6H PRN PRN tab 12/18/18 Furosemide [Lasix] 40 mg PO BIDLX 30 Days #60 tab 12/18/18 Metoprolol Tartrate [Lopressor (beta [place])] 75 mg PO BID tab 12/18/18 Following Prescrptions Were Given to Patient: Furosemide [Lasix] 40 mg PO BIDLX 30 Days #60 tab Primary Care Physician: Vic Chen MD [Primary Care Provider] - Please follow up with your Primary Care Physician in: within 1-2 weeks Disposition: Senior Living facility Minutes spent on discharge:: 40 Patient Condition:: Stable Medical Necessity - Tobacco Use Smoking Status: Never smoker Tobacco Use: Non-smoker Meaningful Use Info Meaningful Use Diagnoses (Choose all that apply): CHF - CHF CHADD/ARB ordered at discharge?: No Reason CHADD/ARB not ordered?: Worsening renal disease Documented LVEF (%): 66 Code Visit Inpatient E&M: 21057 Disch Hosp
[2018-12-18 11:21] LABS: Bedside Glucose 241 mg/dL (70-110)
--- NOTE | 2018-12-18 11:38 | NURSING ---
Addendum entered by Danelle Felder 12/18/18 13:48: TRANSPORT TO BE HERE APPROX @ 1400 Original Note: CALLED REPORT TO ALEXEI @ [facility]
--- NOTE | 2018-12-18 12:14 | CASEMGMT ---
Patient is ready for discharge. ANTONIO called [facility] and they will pick pack worker patient at 2p. ANTONIO completed convalescent on HENS. ANTONIO faxed orders to [facility]. ANTONIO called [facility] and let her know pick pack worker time. ANTONIO also notified patient, RN, and department secretary. ANTONIO asked patient if she would like SW to call anyone and she said she will take care of calling her . Plan: d/c to [facility] under skilled level of care on a convalescent stay. [facility] transported her via [employer] van. Chey AGUIRRE RESEARCH HOME ECONOMIST
[2018-12-18] MEDS: oxyCODONE 5 MG Tablet PO (12:50)
== END 2018-12-18 14:06 | disposition skilled nursing facility (03) | DRG 308 ==
LOC: ED 11:54 → PCU 13:25
PROVIDERS: Admitting Provider Internal Medicine; Emergency Provider Emergency Medicine; Family Provider Family Medicine; PCP Family Medicine; Referring Provider Internal Medicine; Visit Provider Internal Medicine
DX: I48.91 Unspecified atrial fibrillation (principal); I50.33 Acute on chronic diastolic (congestive) heart failure; J96.11 Chronic respiratory failure with hypoxia; I13.0 Hypertensive heart and chronic kidney disease with heart failure and stage 1 through stage 4 chronic kidney disease, or unspecified chronic kidney disease; Z68.43 Body mass index [BMI] 50.0-59.9, adult; N39.0 Urinary tract infection, site not specified; L97.819 Non-pressure chronic ulcer of other part of right lower leg with unspecified severity; K92.2 Gastrointestinal hemorrhage, unspecified; N17.9 Acute kidney failure, unspecified; Z68.42 Body mass index [BMI] 45.0-49.9, adult; E66.01 Morbid (severe) obesity due to excess calories; Z99.81 Dependence on supplemental oxygen; E11.22 Type 2 diabetes mellitus with diabetic chronic kidney disease; D50.0 Iron deficiency anemia secondary to blood loss (chronic); N18.3 Chronic kidney disease, stage 3 (moderate); I87.2 Venous insufficiency (chronic) (peripheral); J44.9 Chronic obstructive pulmonary disease, unspecified; E78.00 Pure hypercholesterolemia, unspecified; I25.10 Atherosclerotic heart disease of native coronary artery without angina pectoris; F17.201 Nicotine dependence, unspecified, in remission; L97.529 Non-pressure chronic ulcer of other part of left foot with unspecified severity; I27.20 Pulmonary hypertension, unspecified; Q27.33 Arteriovenous malformation of digestive system vessel; I89.0 Lymphedema, not elsewhere classified; J84.10 Pulmonary fibrosis, unspecified; F32.9 Major depressive disorder, single episode, unspecified; F41.9 Anxiety disorder, unspecified; Z79.899 Other long term (current) drug therapy; Z71.3 Dietary counseling and surveillance; Z79.4 Long term (current) use of insulin; Z86.73 Personal history of transient ischemic attack (TIA), and cerebral infarction without residual deficits; Z79.51 Long term (current) use of inhaled steroids
CPT/HCPCS: 36415; 36430; 51702; 71045; 80048; 80053; 80076; 81001; 82962; 83735; 83880; 84484; 85025; 85610; 85730; 86850; 86900; 86901; 86920; 86921; 86922; 93005; 94640; 96365; 96372; 96375; 96376; 97162; 97166; 97802; 99218; 99285; J1756; J7040; P9016; A4216; G0378; J1940

== ENCOUNTER 2018-12-20 01:01 | Emergency (ER) | payer MEDICARE, OTHER, SELFPAY ==
[2018-12-16 14:04] VITALS: BMI 49.9
[2018-12-20 01:04] VITALS: BP 117/67; PULSE 98; RESP 24; TEMP 36.8; O2SAT 97; BMI 62.3
--- NOTE | 2018-12-20 01:21 | EKG12_ITS ---
Test Reason : WEAKNESS Blood Pressure : / mmHG Vent. Rate : 093 BPM Atrial Rate : 093 BPM P-R Int : 144 ms QRS Dur : 148 ms QT Int : 418 ms P-R-T Axes : 047 069 018 degrees QTc Int : 519 ms Normal sinus rhythm Right bundle branch block Abnormal ECG Confirmed by EJ PETERSON ([id number]), editorial writer MONA NGO ([id number]) on 12/29/2018 3:47:16 PM Referred By: Vipin Quijano Confirmed By:EJ PETERSON
[2018-12-20 01:27] VITALS: O2SAT 96
--- NOTE | 2018-12-20 01:31 | ED.RN ---
attempt x3 for IV. lab called to assist with draw.
--- NOTE | 2018-12-20 01:35 | ED.VIS.GEN ---
History of Present Illness Chief Complaint: Weakness Informant: Patient, SNF Onset: Today Narrative: Sent in from skilled nursing for concerns for confusion this evening. Patient is discharged to skilled facility 2 days ago after 2-day stay for transient A. fib with RVR along with 3-day treatment for UTI. Patient also in for CHF exacerbation currently on diuresis therapy. Wears chronic oxygen at 3 L. Patient reports to me she was tired when they are asked her questions. She is currently alert and oriented x3. Denies chest pains. Denies any urinary symptoms. States has her normal dyspnea. Initially reported she was brought in on a nonrebreather due to been 80%, however during triage evaluation the room, there is poor waveforms on oxygenation, when corrected, she is stable her 3 L. Records reviewed, she was discharged on Lasix 40 mg twice a day she is on metolazone every week. Her metoprolol was increased to 75 mg twice daily. Prior similar symptoms: Yes Past Medical History - Allergies and Home Meds Allergies/Adverse Reactions: Allergies No Known Allergies Allergy (Verified 12/20/18 01:11) Primary Care Physician: Vic Chen MD [Primary Care Provider] - Surgical History: herniorrhaphy, hysterectomy Smoking Status: Never smoker - Family History Paternal Family History: Family History (Last Reviewed 06/21/18 @ 04:30 by Edson Mooney MD) Mother Heart disease Father CAD (coronary artery disease) Hypertension Brother Hypertension Family History: Reports: Heart Disease, Hypertension Maternal Family History: Family History (Last Reviewed 06/21/18 @ 04:30 by Edson Mooney MD) Mother Heart disease Father CAD (coronary artery disease) Hypertension Brother Hypertension Family History: Reports: Heart Disease Review of Systems General: Denies: Chills, Fever, Sweats Eyes: Denies: Visual changes - bilaterally, Diplopia ENT: Denies: Rhinorrhea, Sore throat Cardiovascular: Denies: Chest pain, Palpitations Respiratory: Denies: Dyspnea, Cough, Dyspnea on exertion Gastrointestinal: Denies: Abdominal pain, Nausea, Vomiting, Diarrhea, Melena, Hematochezia Genitourinary: Denies: Dysuria, Hematuria, Frequency Musculoskeletal: Denies: Back pain, Extremity Pain Skin: Denies: Rash, Wounds Neurological: Denies: Headache, Weakness, Numbness Physical Exam Vital Signs/Narrative: Vital Signs Temp Pulse Resp BP Pulse Ox 12/20/18 01:27 96 12/20/18 01:04 98.2 F 98 24 H 117/67 97 Inital Vital Signs reviewed: Yes General: Well nourished, Well developed, No Acute Distress, - - On 3 L nasal cannula. Head: Normocephalic, Atraumatic Eyes: Perrl, EOMI ENT: Moist mucous membranes, No rhinorrhea Neck: Supple, Nontender Cardiovascular: Regular rate, Regular rhythm, No murmurs Respiratory: No distress, CTA bilaterally, Chest nontender Abdomen: Soft, Nontender, Nondistended, Normal bowel sounds Back: Nontender, Normal Inspection Extremities: Nontender, - - Lymphedema lower extremities with dressings distally. Skin: Normal color, - - Bilateral groin rash left greater than right. Neurological: Alert, Oriented x3, Cranial nerves II-XII grossly intact Psychological: Normal affect, Normal Mood Diagnostic/Tx/Re-eval Chest X-Ray - ED: 2 View, Read by ED Physician, Chronic Changes Abnormal Lab Results 12/20/18 12/20/18 12/20/18 02:00 02:00 02:20 WBC 12.2 H RBC 3.70 L Hgb 10.2 L Hct 37.0 MCV 100.0 H D MCH 27.6 MCHC 27.6 L RDW Std Deviation 66.4 H RDW [place]eff of [place] 18.3 H Plt Count 221 MPV 9.6 Immature Gran % (Auto) 4.100 H Neut % (Auto) 85.1 H Lymph % (Auto) 3.[address] [place] % (Auto) 5.5 Eos % (Auto) 0.9 Baso % (Auto) 0.6 Absolute Neuts (auto) 10.4 H Absolute Lymphs (auto) 0.46 L Nucleated RBC % 0.7 Differential Comment SCANNED Polychromasia 1+ Anisocytosis 1+ Ovalocytes RARE Sodium 138 Potassium 5.2 H Chloride 95 L Carbon Dioxide 38.0 H Anion Gap 5 BUN 57 H Creatinine 1.28 H Estim Creat Clear Calc 84.38 Est GFR (MDRD) Af Amer 53 L Est GFR (MDRD) Non-Af 44 L BUN/Creatinine Ratio 44.5 H Glucose 178 H Calcium 8.3 L Urine Color Yellow Urine Clarity Clear Urine pH 5.0 Ur Specific [place] 1.025 Urine Protein 15 H Urine Glucose (UA) Normal Urine Ketones Negative Urine Occult Blood Negative Urine Nitrite Negative Urine Bilirubin Negative Urine Urobilinogen Normal Ur Leukocyte Esterase 25 H Urine RBC 0 SEEN Urine WBC 0-5 SEEN Ur Squamous Epith Cells 0-5 SEEN Urine Bacteria RARE Urine Mucus 0 SEEN - EKG Initial EKG Interpretation: Sinus Rhythm - Sinus rhythm 93, no ST changes. Right bundle branch block. - Medical Decision Making Patient vital signs stable, oxygen stable on her home oxygen at 3 L. She is a no x3. Patient reported that she was tired and she is answering questions at the skilled facility, she is currently not confused. With her recent history I did obtain labs which were stable from previous cath urine also shows no acute findings. Had 25 leukocytes however white cells and nitrites are negative. Patient asymptomatic. Chest x-ray 2 views reviewed by myself notes chronic changes. She remained stable. She has diuresis that was written on discharge. Patient clinically stable will discharge back to skilled facility. ED Disposition - Plan for ED Patient: Disposition: Nursing Home Facility Diagnosis: Shortness of breath, Anemia Instructions: ED Dyspnea Referrals: Vic Chen MD [Primary Care Provider] - 5-7 Days Additional Instructions: Stable chest x-ray, labs are stable. Oxygen stable in the ED. Alert and oriented x3. Return to skilled facility for continued management there.
--- NOTE | 2018-12-20 02:00 | RAD_ITS ---
STUDY: X-RAY CHEST REASON FOR EXAM: Female, 68 years old. DECREASED LOC WEAKNESS TECHNIQUE: Frontal and lateral views of the chest. COMPARISON: None. FINDINGS: The lungs are clear and expanded. There is no demonstrated pleural abnormality. There is borderline cardiomegaly. Normal mediastinum and deepthi. There is prominence of the pulmonary hilar arteries and peripheral pulmonary arteries, consistent with congestive heart failure (CHF). Normal visualized aortic arch and descending thoracic aorta. Normal visualized thoracic spine. There is degenerative osteoarthritis of the bilateral shoulders. There is no demonstrated abnormality of the visualized soft tissue structures of the upper abdomen. RAD/Chest PA and Lateral IMPRESSION: There is prominence of the pulmonary hilar arteries and peripheral pulmonary arteries, consistent with congestive heart failure (CHF). Electronically Signed: Josette Guerrero, at 3:01 EDT Tel , Service support ,
[2018-12-20 02:07] LABS: Absolute Lymphocyte Count 0.46 X10^3/uL (0.83-4.51); Absolute Neutrophil Count 10.4 X10^3/uL (2.0-7.7); Basophil# 0.07 X10^3/uL; Basophil% 0.6 % (0-1); Eosinophil# 0.11 X10^3/uL; Eosinophils% 0.9 % (0-5); Hemoglobin 10.2 g/dL (12.0-15.0); Lymphocyte # 0.46 X10^3/ul (4.0); Lymphocyte % 3.8 % (19-41); Mean Corp Hgb Conc 27.6 g/dL (32-36); Mean Corpuscular Hgb 27.6 pg (27.0-32.0); Mean Platelet Vol. 9.6 fl (6.2-12.0); Monocyte# 0.67 X10^3/uL; Monocyte% 5.5 % (0-10); NRBC Flagged by Analyzer 0.7 % (0-5); Neutrophil # 10.43 X10^3/uL (2.7-7.7); Neutrophil % 85.1 % (47-70); POSITIVE COUNT YES; POSITIVE DIFFERENTIAL YES; POSITIVE MORPHOLOGY YES; Platelet Count 221 K/mm3 (150-450); RBC Distribution Width CV 18.3 % (11.6-14.6); RBC Distribution Width SD 66.4 fl (35.1-43.9); White Blood Count 12.2 K/mm3 (4.4-11.0)
[2018-12-20 02:11] LABS: Differential Indicated SCAN CRITERIA MET
[2018-12-20 02:18] LABS: Anion Gap 5 (5-15); BUN 57 mg/dL (7-18); BUN/Creat Ratio 44.5 RATIO (10-20); Calcium,Total 8.3 mg/dL (8.5-10.1); Chloride 95 mmol/L (98-107); Creatinine, Serum 1.28 mg/dL (0.55-1.02); EST Glomerular Filtration Rate 44 mL/min (>60); Est Glom Filt Rate - Afr Amer 53 mL/min (>60); Estimated Creatinine Clearance 84.38 ml/min; Glucose 178 mg/dL (74-106); Potassium 5.2 mmol/L (3.5-5.1); Sodium Level 138 mmol/L (136-145)
[2018-12-20 02:26] LABS: Mucous, Urine 0 SEEN /hpf (<or=2+); Red Blood Cells-Urine 0 SEEN /hpf (0-5)
[2018-12-20 02:28] LABS: Color, Urine Yellow (Yellow); Glucose, Dipstick Normal (Normal); Ketone-Dipstick Negative (Negative); Leukocyte Esterase-Dipstick 25 /ul (Negative); Nitrite-Dipstick Negative (Negative); Occult Blood-Urine Negative /ul (Negative); Protein-Dipstick 15 mg/dl (Negative); Specific Gravity, Urine 1.025 (1.002-1.030); Urine Bilirubin Dipstick Negative (Negative); Urine Clarity Clear (Clear); Urine Urobilinogen Normal (Normal)
[2018-12-20 02:39] LABS: Anisocytosis 1+; Differential Comment SCANNED
[2018-12-20 02:39] LABS: Bacteria RARE /hpf (None Seen)
[2018-12-20 02:40] VITALS: BP 124/77; PULSE 90; RESP 15; O2SAT 95
[2018-12-20 02:40] LABS: Squamous Epithelial Cells - UA 0-5 SEEN /hpf (5-10); White Blood Cells 0-5 SEEN /hpf (0-5)
[2018-12-20 02:40] LABS: Ovalocyte RARE; Polychromasia 1+
--- NOTE | 2018-12-20 03:07 | ED.RN ---
attempt x2 to call report to [facility]
[2018-12-20 03:11] VITALS: BP 129/76; PULSE 93; RESP 17; O2SAT 95
== END 2018-12-20 03:30 | disposition skilled nursing facility (03) ==
PROVIDERS: Emergency Provider Emergency Medicine; Family Provider Family Medicine; PCP Family Medicine
DX: D64.9 Anemia, unspecified (principal); R06.02 Shortness of breath; R21 Rash and other nonspecific skin eruption; I45.10 Unspecified right bundle-branch block; I48.91 Unspecified atrial fibrillation; I50.9 Heart failure, unspecified; Z87.440 Personal history of urinary (tract) infections; Z99.81 Dependence on supplemental oxygen; Z79.899 Other long term (current) drug therapy
CPT/HCPCS: 71046; 80048; 81001; 85025; 93005; 99285; P9612; A4216

== ENCOUNTER → 2019-01-09 08:34 | Outpatient (CLI) | payer MEDICARE, OTHER, SELFPAY ==
[2018-12-20 01:04] VITALS: BMI 62.3
[2019-01-09] VITALS (9 sets, daily range): BP systolic 91–118; BP diastolic 44–61; PULSE 89–107; RESP 20–26; TEMP 36.6–37.1; O2SAT 93–99; BMI 44.2
[2019-01-09] MEDS: Furosemide 40 MG/4 ML Vial IV (12:34)
--- NOTE | 2019-01-09 15:36 | NURSING ---
1515 blood completed, line flushing, 1530 patient complaint of not being able to breath , more short of breath with oxygen at 4l, taken to Ed.
--- NOTE | 2019-01-09 16:00 | NURSING ---
NURSE AT [facility] CALLED AND REPORT GIVEN THAT PT BEING TRANSFERRED TO ED
== END ==
PROVIDERS: Family Provider Family Medicine; PCP Family Medicine; Referring Provider Family Medicine; Visit Provider Family Medicine
DX: D64.9 Anemia, unspecified (principal)
CPT/HCPCS: 36430; 86850; 86900; 86901; 86920; 86922; J7040; P9016; A4216; J1940

== ENCOUNTER 2019-01-09 15:49 | Inpatient (IN) | payer MEDICARE, OTHER, SELFPAY ==
[2019-01-09] VITALS (14 sets, daily range): BP systolic 110–145; BP diastolic 57–89; PULSE 100–120; RESP 12–24; TEMP 36.6–37.1; O2SAT 93–99; BMI 44.2; BMI 44.3; BMI 50.1
--- NOTE | 2019-01-09 16:12 | EKG12_ITS ---
Test Reason : DYSRHYTHMIA Blood Pressure : / mmHG Vent. Rate : 105 BPM Atrial Rate : 105 BPM P-R Int : 138 ms QRS Dur : 146 ms QT Int : 398 ms P-R-T Axes : 043 063 005 degrees QTc Int : 526 ms Sinus tachycardia with Premature atrial complexes Right bundle branch block Abnormal ECG Confirmed by ANJANA GAMBOA, CHOLO ([id number]), content editor PENG GLEZ ([id number]) on 01/13/2019 11:25:21 AM Referred By: SANDI Confirmed By:CHOLO YEUNG MD
--- NOTE | 2019-01-09 16:18 | RAD_ITS ---
STUDY: X-RAY CHEST REASON FOR EXAM: Female, 68 years old. Shortness of breath TECHNIQUE: Single AP portable view of the chest. COMPARISON: 12/20/2018 FINDINGS: The lungs are clear and expanded. There is no demonstrated pleural abnormality. There is moderate cardiac enlargement. Normal mediastinum and deepthi. There is prominence of the pulmonary hilar arteries and peripheral pulmonary arteries, consistent with congestive heart failure (CHF). Normal visualized aortic arch and descending thoracic aorta. Normal visualized thoracic spine. Normal visualized ribs, clavicles, and shoulders. There is no demonstrated abnormality of the visualized soft tissue structures of the upper abdomen. RAD/Chest 1 View (Portable) IMPRESSION: Mild congestive heart failure. Electronically Signed: Ron Krishna MD at 16:35 EDT Tel , Service support ,
--- NOTE | 2019-01-09 16:51 | ED.DCSUM_ITS ---
History of Present Illness Chief Complaint: Shortness of Breath Informant: Patient Onset: Days Context: Gradual Onset Timing: Intermittent Current Severity: Mild Maximum Severity: Moderate Narrative: Patient is a 68-year-old female with history of congestive heart failure, proximal atrial fibrillation as well as recurrent anemia secondary to GI bleed from AVMs presenting with palpitations. Patient states she feels that her heart is racing. This is been intermittent over the past 2 days. She also feels that she is been more short of breath. She denies any fever or chills. She notes she did have a blood transfusion at her acute rehab facility today. She states that she feels that she had BiPAP should feel better. Patient does not wear BiPAP or CPAP normally. She notes that she does wear 4 L oxygen at baseline. Patient does have swelling of her legs as well as her right hand but states that her leg swelling is actually better than it has been. She is on a diuretic. She denies any change in her urine output. Right hand swelling is been present for the past 2 weeks. She denies any injury. Patient denies any other complaints at this time. She does not have associated chest pain. Past Medical History - Allergies and Home Meds Allergies/Adverse Reactions: Allergies No Known Allergies Allergy (Verified 01/09/19 15:56) Surgical History: herniorrhaphy, hysterectomy Smoking Status: Former smoker - Family History Paternal Family History: Family History (Last Reviewed 06/21/18 @ 04:30 by Edson Mooney MD) Mother Heart disease Father CAD (coronary artery disease) Hypertension Brother Hypertension Family History: Reports: Heart Disease, Hypertension Maternal Family History: Family History (Last Reviewed 06/21/18 @ 04:30 by Edson Mooney MD) Mother Heart disease Father CAD (coronary artery disease) Hypertension Brother Hypertension Family History: Reports: Heart Disease Review of Systems All systems negative except as indicated General: Reports: Malaise Cardiovascular: Reports: Palpitations Respiratory: Reports: Dyspnea, Cough, Dyspnea on exertion Physical Exam Vital Signs/Narrative: Vital Signs Temp Pulse Resp BP Pulse Ox 01/09/19 15:56 98.5 F 01/09/19 15:51 98.5 F 106 H 20 H 141/64 H 94 Inital Vital Signs reviewed: Yes General: Well nourished, Well developed, Obese, No Acute Distress Head: Normocephalic, Atraumatic Eyes: Perrl, EOMI ENT: Moist mucous membranes, No rhinorrhea Neck: Supple, Nontender, No JVD Cardiovascular: Regular rhythm, Tachycardia, Murmur Respiratory: No distress, Chest nontender, Diminished, Decreased Air Movement, - - Tachypnea. Negative for: Wheezing Abdomen: Soft, Nontender, Nondistended, Normal bowel sounds Back: Nontender, Normal Inspection Extremities: Tenderness, Edema - Up to thighs bilaterally, 3+ pitting; 2+ pitting edema of the right hand and distal forearm Skin: Normal color, No rash Neurological: Alert, Oriented x3, Cranial nerves II-XII grossly intact, Normal Strength, Normal Sensation Psychological: Normal affect, - - Anxious Diagnostic/Tx/Re-eval Chest X-Ray - ED: 1 View, Read by ED Physician, Read by Radiologist, CHF Clinical Impression(s) from Imaging Studies Chest X-Ray 01/09/19 16:18 IMPRESSION: Mild congestive heart failure. Electronically Signed: Ron Krishna MD at 16:35 EDT Tel , Service support , Laboratory Data 01/09/19 01/09/19 01/09/19 17:13 17:13 17:13 WBC 21.7 H RBC 3.29 L Hgb 9.0 L Hct 31.4 L MCV 95.4 D MCH 27.4 MCHC 28.7 L RDW Std Deviation 73.0 H RDW [employer]eff [place] 21.5 H Plt Count 565 H MPV 9.5 Immature Gran % (Auto) TEAM SUPERVISOR Neut % (Auto) TEAM SUPERVISOR Lymph % (Auto) TEAM SUPERVISOR [place] % (Auto) TEAM SUPERVISOR Eos % (Auto) TEAM SUPERVISOR Baso % (Auto) TEAM SUPERVISOR Absolute Neuts (auto) 18.0 H Absolute Lymphs (auto) 1.30 Neutrophils % (Manual) 82 H Band Neutrophils % 1 Lymphocytes % (Manual) 6 L Monocytes % (Manual) 7 Eosinophils % (Manual) 1 Metamyelocytes % 1 Myelocytes % 2 H Nucleated RBC % TEAM SUPERVISOR Nucleated RBCs/100 WBC 1 Differential Comment Diff Path Review May foll Platelet Estimate SLT INC Polychromasia 1+ Anisocytosis 2+ Stomatocytes 1+ PT 14.3 INR 1.1 APTT 32.9 Sodium 133 L Potassium 3.9 Chloride 89 L Carbon Dioxide 40.0 H Anion Gap 4 L BUN 75 H Creatinine 1.37 H Estim Creat Clear Calc 31.61 Est GFR (MDRD) Af Amer 49 L Est GFR (MDRD) Non-Af 40 L BUN/Creatinine Ratio 54.7 H Glucose 443 H Calcium 8.7 Troponin I 0.023 B-Natriuretic Peptide 01/09/19 17:13 WBC RBC Hgb Hct MCV MCH MCHC RDW Std Deviation RDW [place] Plt Count MPV Immature Gran % (Auto) Neut % (Auto) Lymph % (Auto) [place] % (Auto) Eos % (Auto) Baso % (Auto) Absolute Neuts (auto) Absolute Lymphs (auto) Neutrophils % (Manual) Band Neutrophils % Lymphocytes % (Manual) Monocytes % (Manual) Eosinophils % (Manual) Metamyelocytes % Myelocytes % Nucleated RBC % Nucleated RBCs/100 WBC Differential Comment Diff Path Review Platelet Estimate Polychromasia Anisocytosis Stomatocytes PT INR APTT Sodium Potassium Chloride Carbon Dioxide Anion Gap BUN Creatinine Estim Creat Clear Calc Est GFR (MDRD) Af Amer Est GFR (MDRD) Non-Af BUN/Creatinine Ratio Glucose Calcium Troponin I B-Natriuretic Peptide 231.7 H - Rhythm Strip Rhythm Strip: Sinus Tach Rate: 105 Ectopy: PVC(s) - EKG Initial EKG Interpretation: Sinus Tachycardia, - - Sinus tachycardia rate of 105 WI interval 138 QRS 146 QT/QTc 398/526 Right bundle branch block [place] Nonspecific T wave inversion in lead III - Medical Decision Making Patient is evaluated for palpitations and shortness of breath. Patient is tachy cardic and is doing a lot of PVCs on telemetry. She does not have any sustained V. tach. Patient is significantly edematous and has diminished breath sounds. While she is not hypoxic she does feel very short of breath and is requesting BiPAP. Patient is placed on BiPAP for comfort of breathing. Chest x-ray does show mild CHF and she does have a mildly elevated proBNP. Her creatinine is elevated but appears to be near her baseline. Patient is given an additional 40 mg of Lasix as well. I suspect the blood transfusion today pushed her over into failure. Patient will be admitted for further diuresis and cardiopulmonary monitoring. She is agreeable to this plan. Her troponin is normal. She does not have any ischemic changes on her EKG. She is stable for the PCU. Case discussed with Dr. Levine who accepts the patient. ED Disposition - Plan for ED Patient: Disposition: Acute Care Hospital [facility] Diagnosis: Diastolic CHF, acute on chronic, Palpitations, Tachycardia
[2019-01-09 17:22] LABS: Hematocrit 31.4 % (37-47); Mean Corp Hgb Conc 28.7 g/dL (32-36); Mean Corpuscular Hgb 27.4 pg (27.0-32.0); Mean Corpuscular Volume 95.4 fL (81-99); Mean Platelet Vol. 9.5 fl (6.2-12.0); POSITIVE COUNT YES; POSITIVE DIFFERENTIAL YES; POSITIVE MORPHOLOGY YES; Platelet Count 565 K/mm3 (150-450); RBC Distribution Width CV 21.5 % (11.6-14.6); Red Blood Count 3.29 M/mm3 (4.2-5.4); White Blood Count 21.7 K/mm3 (4.4-11.0)
[2019-01-09 17:31] LABS: Differential Indicated MANUAL DIFF
[2019-01-09] MEDS: Furosemide 40 MG/4 ML Vial IV (17:33)
[2019-01-09 17:39] LABS: Anion Gap 4 (5-15); BUN 75 mg/dL (7-18); BUN/Creat Ratio 54.7 RATIO (10-20); Calcium,Total 8.7 mg/dL (8.5-10.1); Chloride 89 mmol/L (98-107); Creatinine, Serum 1.37 mg/dL (0.55-1.02); EST Glomerular Filtration Rate 40 mL/min (>60); Est Glom Filt Rate - Afr Amer 49 mL/min (>60); Estimated Creatinine Clearance 31.61 ml/min; Glucose 443 mg/dL (74-106); Potassium 3.9 mmol/L (3.5-5.1); Sodium Level 133 mmol/L (136-145)
[2019-01-09 17:55] LABS: Eosinophil 1 % (0-5); Lymphocyte 6 % (19-41); Metamyelocyte 1 % (0-1); Monocyte 7 % (0-10); Myelocyte 2 (0-0); Neutrophil-Band 1 % (0-5); Neutrophil-Segmented 82 % (47-70)
[2019-01-09 17:56] LABS: Nucleated Red Bld Cells,Manual 1 % (0-5)
[2019-01-09 17:57] LABS: Anisocytosis 2+; Platelet Estimate SLT INC (ADEQ); Polychromasia 1+
[2019-01-09 17:58] LABS: Stomatocyte 1+
[2019-01-09 18:00] LABS: BNP,B-Type NATRIURETIC PEPTIDE 231.7 pg/mL (0-100)
[2019-01-09 18:07] LABS: International Normalized Ratio 1.1; Prothrombin Time (Protime)PT. 14.3 SECONDS (11.7-14.9)
[2019-01-09 18:08] LABS: Partial Thromboplast Time 32.9 Seconds (24.1-36.2)
--- NOTE | 2019-01-09 18:25 | HP.PCM_ITS ---
History of Present Illness Date of Admission: 01/09/19 Chief Complaint: Shortness of breath The patient is a 68 year old F with an extensive past medical history as listed which includes chronic anemia, history of GI bleed due to AV malformations, chronic diastolic congestive heart failure as well as COPD and chronic hypoxic respiratory failure due to heart failure and COPD on 4 L of oxygen at home. She was admitted to the ED on 01/09/2019 with a complaint of shortness of breath which have been going on for about a couple of days. Shortness of breath was present on rest and with exertion and she had associated orthopnea and PND. She also noted that she had lower extremity edema. Patient states that she went to the infusion center today to be transfused with blood on account of acute on chronic anemia. [] On admission in the ED, pulse rate was 102 respiratory rate was 20. Vitals were otherwise stable. She was saturating at 99% on 5 L of oxygen was started on BiPAP for comfort in the ED. Chemistry shows sodium of 133 and bicarb of 40, which are both around her baseline. Troponin was init ially negative and BNP was 231.7. CBC showed hemoglobin of 9 and WBC of 21.7. WBC is chronically elevated and platelets were also elevated at 565. Chest x- ray does show evidence of mild congestive heart failure. She has been admitted to be managed for acute exacerbation of chronic diastolic heart failure. Past Medical History Past Medical History (Chronic Problems): Chronic Problems (Last Updated 12/14/18 @ 17:17 by Pito Mckeon DO) Acute kidney injury superimposed on chronic kidney disease (Chronic) 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) CAD in [place] artery (Chronic) Edema (Chronic) Type 2 diabetes mellitus (Chronic) Nonrheumatic aortic (valve) stenosis (Chronic) Pure hypercholesterolemia (Chronic) Essential hypertension (Chronic) COPD with acute exacerbation (Chronic) Respiratory failure (Chronic) Depression (Chronic) Morbid obesity (Chronic) Pulmonary hypertension (Chronic) CKD stage 3 secondary to diabetes (Chronic) Chronic diastolic (congestive) heart failure (Chronic) Cerebral infarction, unspecified (Chronic) Palpitations (Chronic) Anxiety (Chronic) Left atrial enlargement (Chronic) Hypersomnia (Chronic) Anemia (Chronic) Carotid artery stenosis (Chronic) Chronic hypoxemic respiratory failure (Chronic) Pulmonary fibrosis (Chronic) 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 3 severe COPD by GOLD classification (Chronic) Pulmonary hypertension (Chronic) With PA pressures 55 by cardiac catheterization 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) Medical History: Medical History (Last Updated 12/14/18 @ 17:17 by Pito Mckeon DO) Type 2 diabetes mellitus (Chronic) E11.9 Nonrheumatic aortic (valve) stenosis (Chronic) I35.0 Pure hypercholesterolemia (Chronic) E78.00 Essential hypertension (Chronic) I10 Respiratory failure (Chronic) J96.90 Depression (Chronic) F32.9 Morbid obesity (Chronic) E66.01 COPD exacerbation (Resolved) J44.1 Pulmonary hypertension (Chronic) I27.20 Diastolic CHF, acute on chronic (Acute) I50.33 CKD stage 3 secondary to diabetes (Chronic) E11.22, N18.3 Chronic diastolic (congestive) heart failure (Chronic) I50.32 Cerebral infarction, unspecified (Chronic) I63.9 Palpitations (Chronic) R00.2 Anxiety (Chronic) F41.9 Left atrial enlargement (Chronic) I51.7 Hypersomnia (Chronic) G47.10 Anemia (Chronic) D64.9 Carotid artery stenosis (Chronic) I65.29 Chronic hypoxemic respiratory failure (Chronic) J96.11 Pulmonary fibrosis (Chronic) J84.10 Tobacco dependence in remission (Chronic) F17.201 Stage 3 severe COPD by GOLD classification (Chronic) J44.9 Pulmonary hypertension (Chronic) With PA pressures 55 by cardiac catheterization 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 Blackmon in 2011, suspected AV malformations Acute on chronic anemia (Inactive) Aortic stenosis (Inactive) Moderate to severe with valve area 1.1 on cardiac catheterization in 2013 Aortic valve stenosis (Inactive) I35.0 HLD (hyperlipidemia) (Inactive) E78.5 Hypertension (Inactive) I10 Allergies No Known Allergies Allergy (Verified 01/09/19 15:56) Home Medications: Ambulatory Orders Medication Instructions Recorded Simvastatin [Zocor] 20 mg PO QHS 01/15/14 Escitalopram Oxalate [Lexapro] 10 mg PO DAILY 06/29/15 Ipratropium/Albuterol Sulfate 3 ml INHALATION TID 04/01/18 [Duoneb] metolazone 2.5 mg tablet 2.5 mg PO DAILY 07/03/18 omeprazole magnesium 20 mg 20 mg PO DAILY 09/08/18 tablet,delayed release promethazine 25 mg tablet 25 mg PO Q6H PRN 09/08/18 potassium chloride ER 20 mEq 20 meq PO TID 90 Days #180 tab 09/17/18 tablet,extended release(part/cryst) Oxycodone [Oxyir] 5 mg PO Q6H PRN PRN 12/13/18 Ferrous Sulfate 325 mg PO BIDCM 12/16/18 Furosemide [Lasix] 40 mg PO BIDLX 30 Days #60 tab 12/18/18 Cephalexin [Keflex] 500 mg PO Q8H 01/09/19 Dexamethasone 2 mg PO DAILY 01/09/19 Dulaglutide [Trulicity] 0.75 mg SQ TU@1600 01/09/19 Fluticasone/Vilanterol [Breo 1 puff INHALATION DAILY 01/09/19 Ellipta Inhaler] Insulin Glargine,Hum.rec.anlog 50 unit SQ QHS 01/09/19 [Basaglar Kwikpen U-100] Insulin Lispro [Humalog KwikPen] 16 unit SQ TIDCM 01/09/19 Insulin Lispro [Humalog KwikPen] See Protocol SQ TIDCM 01/09/19 Metoprolol Tartrate 75 mg PO BID 01/09/19 Trazodone HCl 25 mg PO QHS 01/09/19 Surgical History: Surgical History (Last Reviewed 06/21/18 @ 04:30 by Edson Mooney MD) History of hernia repair Z98.890, Z87.19 History of hysterectomy Z90.710 History of left heart catheterization Z98.890 X 2 Surgical History: herniorrhaphy, hysterectomy Psychiatric History: Anxiety, Depression 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 history Lives: Senior Living Smoking Status: Former smoker - *Family History Paternal Family History: Family History (Last Reviewed 06/21/18 @ 04:30 by Edson Mooney MD) Mother Heart disease Father CAD (coronary artery disease) Hypertension Brother Hypertension History Items: Heart Disease, Hypertension Maternal Family History: Family History (Last Reviewed 06/21/18 @ 04:30 by Edson Mooney MD) Mother Heart disease Father CAD (coronary artery disease) Hypertension Brother Hypertension History Items: Heart Disease Review of Systems Constitutional: Denies: Chills, Fever, Malaise, Weakness, Weight Change, Fatigue Eyes: Denies: Blurred vision HEENT: Denies: Head Aches, Sinus Congestion, Sinus Drainage Cardiovascular: Reports: Edema - of lower extremities, Orthopnea, Paroxysmal Noc. Dyspnea. Denies: Chest Pain Respiratory: Reports: Shortness of Breath, Shortness of breath at rest, Shortness of breath upon exertion. Denies: Cough, Pleuritic Pain, Wheezing Gastrointestinal: Denies: Abdominal Pain, Nausea, Vomiting Genitourinary: Denies: Dysuria Musculoskeletal: Denies: Joint Pain, Joint Tenderness Skin: Denies: Rash, Wounds Neurological: Denies: Numbness, Tingling, Focal weakness Psychiatric: Denies: Anxiety, Depression, Homicidal Ideations, Suicidal Ideations Hematologic/ Lymphatic: Denies: Easy Bruising, Easy Bleeding VTE Information - Inpt Only VTE Present on Admission: No VTE Pharm Prophylaxis ordered?: Yes - Physical Exam Vitals/I&O's: Vital Signs Temp Pulse Resp BP Pulse Ox 98.2 F 102 H 20 H 145/76 H 99 01/09/19 16:56 01/09/19 17:23 01/09/19 17:23 01/09/19 16:56 01/09/19 17:23 Oxygen Flow Rate (L/min) 5 Oxygen Delivery Method Nasal Cannula Weight: 250 lb Body Mass Index (BMI) 44.2 Finger Stick Blood Glucose 478 General: Alert, Oriented x3, Cooperative, No apparent distress, - - super morbid obesity HEENT: Atraumatic, PERRLA, EOMI, Normocephalic Neck: Supple, No JVD, Negative Carotid Bruits Lungs: - - decreased breath sounds bibasally, no wheezes or crackles Cardiovascular: Regular rate, Regular Rhythm, Normal S1, Normal S2, - - grade 2- 3 systolic murmur loudest at aortic area Abdomen: Bowel Sounds Present, Soft, Non Tender, Obese Extremities: - - bilateral 3+ lower extremity pitting pedal edema. Skin: No rashes, No breakdown Musculoskeletal: No Tenderness to Palpation of Joints or Extremities Lymphatic: No Cervical, Supraclavicular, or Inguinal Adenopathy Neurological: Cranial nerves II-XII grossly intact, Neuro grossly intact, Motor Exam 5/5 strength throughout Psych/Mental Status: Normal Affect, Appropriate, Alert and oriented to time, place, person, mood and affect Laboratory Results 01/09/19 17:13: WBC 21.7 H, RBC 3.29 L, Hgb 9.0 L, Hct 31.4 L, MCV 95.4 D, MCH 27.4, MCHC 28.7 L, RDW Std Deviation 73.0 H, RDW Coeff of [place] 21.5 H, Plt Count 565 H, MPV 9.5, Immature Gran % (Auto) [employer], Neut % (Auto) [employer], Lymph % (Auto) [employer], [place] % (Auto) [employer], Eos % (Auto) [employer], Baso % (Auto) [employer], Absolute Neuts (auto) 18.0 H, Absolute Lymphs (auto) 1.30, Neutrophils % (Manual) 82 H, Band Neutrophils % 1, Lymphocytes % (Manual) 6 L, Monocytes % (Manual) 7, Eosinophils % (Manual) 1, Metamyelocytes % 1, Myelocytes % 2 H, Nucleated RBC % [employer], Nucleated RBCs/100 WBC 1, Differential Comment , Diff Path Review May foll, Platelet Estimate [employer], Polychromasia 1+, Anisocytosis 2+, Stomatocytes 1+ 01/09/19 17:13: PT 14.3, INR 1.1, APTT 32.9 01/09/19 17:13: Sodium 133 L, Potassium 3.9, Chloride 89 L, Carbon Dioxide 40.0 H, Anion Gap 4 L, BUN 75 H, Creatinine 1.37 H, Estim Creat Clear Calc 31.61, Est GFR (MDRD) Af Amer 49 L, Est GFR (MDRD) Non-Af 40 L, BUN/Creatinine Ratio 54.7 H , Glucose 443 H, Calcium 8.7, Troponin I 0.023 01/09/19 17:13: B-Natriuretic Peptide 231.7 H Diagnostic Data Chest X-Ray 01/09/19 16:18 IMPRESSION: Mild congestive heart failure. Electronically Signed: Ron Krishna MD at 16:35 EDT Tel , Service support , Assessment/Plan All Active Problems (Last Updated 12/14/18 @ 17:17 by Pito Mckeon, ) Atrial fibrillation with RVR (Acute) Complicated UTI (urinary tract infection) (Resolved) Severe hyperglycemia due to diabetes mellitus (Acute) Hyperkalemia, diminished renal excretion (Resolved) Physical debility (Resolved) Generalized weakness (Acute) Recurrent falls (Resolved) Abnormal cardiac enzyme level (Resolved) Shortness of breath (Acute) Increased heart rate (Acute) Acute respiratory failure with hypoxia and hypercapnia (Resolved) Elevated troponin I level (Resolved) Hyperglycemia due to type 2 diabetes mellitus (Acute) Acute encephalopathy (Resolved) COPD exacerbation (Resolved) Diastolic CHF, acute on chronic (Acute) CVA (cerebral vascular accident) (Resolved) CVA (cerebral vascular accident) (Resolved) History of GI bleeding (Resolved) 68-year-old male admitted with a complaint of shortness of breath. 1. Acute on chronic exacerbation of HFpEF * X-ray showed evidence of mild congestive heart failure and BNP was around 231. Patient is morbidly obese though. * admit to PCU with telemetry * received IV lasix in the ED; has been tachypneic and tachycardic but I think these are likely due to the heart failure. * IV lasix 40mg bid; intake output charting * fluid restriction to 1500cc daily * Insert Whiteside catheter to monitor urine output closely. * Continue metolazone. * Continue metoprolol. * 2. SIRS criteria: * Patient is tachypneic and tachycardic and also has elevated white cell count. * Leukocytosis is chronic and cardia and tachypnea nicely explained by the shortness of breath due to the acute on chronic exacerbation of HFpEF. * There is no evidence of infection. * Will monitor improvement with treatment of heart failure. * 3. Chronic hypoxic respiratory failure due to heart failure and COPD: * Baseline is 4 L of oxygen at home. * Currently on 5 L of oxygen at home. * Was put on BiPAP for comfort in the ED. * Titrate oxygen to maintain saturation above 90%. * BiPAP PRN for shortness of breath. * Continue breathing treatments with duonebs and breo ellipta * 4. Chronic anemia: * Hemoglobin is 9. States she went to the infusion center to receive blood today. Hb was 7 on 01/07/19 * has a history of chronic anemia requiring repeated transfusions. Will monitor. * Continue iron supplements. * transfuse if Hb <8, o/a of cardiac issues 5. Diabetes mellitus: On insulin Basaglar 50 units nightly dulaglutide. Insulin sliding scale. Accuchecks ACHS 6. History of GI bleed due to AV mall formations: Currently stable. 7. Hypertension: fairly controlled. On metoprolol. 8. Hyperlipidemia: on statin 9. Depression: on lexapro DVT prophylaxis; SCDs, o/a of acute on chronic anemia Code status: full code * Patient counseled extensively about different types of CODE STATUS including full code, DNR CCA and DNR CCA. Patient elects to be full code. Total face -to-face time 16 minutes. Code Visit Inpatient E&M: 35197 Init Hosp L3 Procedures: 15298 Advncd Care Plan 30 Min
--- NOTE | 2019-01-09 19:40 | ED.RN ---
PATIENT'S AND [facility] NOTIFIED OF ADMISSION TO [facility].
[2019-01-09] MEDS: Budesonide Respules 0.5 MG/2 ML AMPUL.NEB. INHALATION (22:42)
[2019-01-09] MEDS: Ipratropium/Albuterol Sulfate 3 ML AMPUL.NEB INHALATION (22:50)
[2019-01-09] MEDS: Insulin Lispro 100 UNIT/ML INSULN.PEN SC (22:51)
[2019-01-09] MEDS: Atorvastatin Calcium 10 MG Tablet PO (23:00)
[2019-01-09] MEDS: Metoprolol Tartrate 25 MG Tablet 75 MG PO (23:00)
[2019-01-09] MEDS: traZODone 50 MG Tablet 25 MG PO (23:12)
[2019-01-10] VITALS (24 sets, daily range): BP systolic 90–122; BP diastolic 49–64; PULSE 80–101; RESP 12–22; TEMP 36.2–36.7; O2SAT 90–96
[2019-01-10 00:46] LABS: Bedside Glucose 192 mg/dL (70-110)
--- NOTE | 2019-01-10 05:55 | ECHOCS_ITS ---
Reason For Study: CHF Procedure This was a 2D Doppler, Color Flow transthoracic echocardiogram. The study was technically difficult. Patient on Bi-Pap. Exam performed portable in patient room. Left Ventricle Normal LV size. Mild concentric left ventricular hypertrophy. Left ventricular systolic function is normal. The estimated ejection fraction is 60 %. Stage 2 diastolic dysfunction. Right Ventricle Normal RV size. Normal systolic function. Atria The left atrium is severely enlarged. Normal right atrium. Mitral Valve There is mild mitral annular calcification. Mild (1+) eccentric mitral valve insufficiency. Tricuspid Valve Normal tricuspid valve. Mild to moderate (1-2+) tricuspid valve insufficiency. Pulmonary artery systolic pressure is 45 mmHg. Aortic Valve Trisinus/trileaflet aortic valve. Moderate focal aortic valve calcification. Peak aortic valve gradient 60 mmHg. Mean aortic valve gradient 32 mmHg. Calculated aortic valve area (continuity equation) is 0.85 cm2. Moderately Severe . Pulmonic Valve The pulmonic valve is not well visualized. Great Vessels Normal aortic root. The pulmonary artery is normal size. Normal inferior vena cava. Pericardium/Pleural No pericardial effusion. MMode/2D Measurements & Calculations LVIDd: 4.6 cm IVSd: 1.3 cm LVOT diam: 1.9 cm LVIDs: 2.8 cm LVPWd: 1.2 cm LVOT area: 3.0 cm2 FS: 39.7 % Ao root diam: 2.4 cm LAV(MOD-bp): 98.3 ml LA A4 area: 30.6 cm2 LAV(MOD-bp) Indexed: 43.9 ml/m2 LAV(MOD-sp2): 79.8 ml LAV(MOD-sp4): 115.4 ml LA dimension(2D): 3.3 cm RA A4 area: 13.7 cm2 Doppler Measurements & Calculations MV E max chucho: 144.9 cm/sec Lat Peak E' Chucho: 9.1 cm/sec Med Peak E' Chucho: 6.0 cm/sec MV A max chucho: 108.0 cm/sec E/E' lat: 15.9 E/E' med: 24.1 MV E/A: 1.3 MV V2 max: 147.4 cm/sec MV P1/2t max chucho: 143.1 cm/sec Ao V2 max: 387.2 cm/sec MV max P.8 mmHg MV P1/2t: 58.9 msec Ao max P.5 mmHg MV V2 mean: 105.0 cm/sec MV dec slope: 710.9 cm/sec2 Ao V2 mean: 265.2 cm/sec MV mean P.8 mmHg MVA(P1/2t): 3.7 cm2 Ao mean P.1 mmHg MV V2 VTI: 33.3 cm Ao V2 VTI: 76.2 cm MVA(VTI): 2.1 cm2 LUPE(I,D): 0.91 cm2 LUPE(V,D): 0.85 cm2 LV V1 max: 110.1 cm/sec SV(LVOT): 69.1 ml PA V2 max: 128.2 cm/sec LV V1 max P.9 mmHg LV V1 mean P.7 mmHg LV V1 mean: 77.4 cm/sec LV V1 VTI: 23.2 cm TR max chucho: 315.5 cm/sec TR max P.8 mmHg Interpretation Summary Normal LV size. Mild concentric left ventricular hypertrophy. Left ventricular systolic function is normal. The estimated ejection fraction is 60 %. Stage 2 diastolic dysfunction. Mean aortic valve gradient 32 mmHg. Calculated aortic valve area (continuity equation) is 0.85 cm2. Compared to the previous there is no significant change in the aortic valve area. Moderately Severe Ordering Physician: Michaela Levine Referring Physician: Vic Chen Performed By: Gabby Lucio RDCS
--- NOTE | 2019-01-10 05:59 | NURSING ---
Pt wore bipap for several hours overnight. She was placed back on it this AM d/t shortness of breath.
[2019-01-10] MEDS: Insulin Lispro 100 UNIT/ML INSULN.PEN SC ×4 (06:51→22:49)
[2019-01-10] MEDS: Ipratropium/Albuterol Sulfate 3 ML AMPUL.NEB INHALATION ×3 (07:37→20:17)
[2019-01-10] MEDS: Budesonide Respules 0.5 MG/2 ML AMPUL.NEB. INHALATION ×2 (07:37→20:17)
[2019-01-10] MEDS: dexAMETHasone 4 MG Tablet 2 MG PO (07:58)
[2019-01-10] MEDS: Ferrous Sulfate 325 MG Tablet PO ×2 (07:58→16:45)
[2019-01-10] MEDS: Metolazone 2.5 MG Tablet PO (09:37)
[2019-01-10] MEDS: Metoprolol Tartrate 25 MG Tablet 75 MG PO ×2 (09:37→22:50)
[2019-01-10] MEDS: Pantoprazole Sodium 20 MG Tablet PO (09:37)
[2019-01-10] MEDS: Escitalopram Oxalate 10 MG Tablet PO (09:37)
[2019-01-10] MEDS: Furosemide 40 MG/4 ML Vial IV ×2 (09:40→17:00)
[2019-01-10 10:19] LABS: Differential Indicated MANUAL DIFF; Hematocrit 30.9 % (37-47); Hemoglobin 8.7 g/dL (12.0-15.0); Mean Corp Hgb Conc 28.2 g/dL (32-36); Mean Corpuscular Hgb 27.1 pg (27.0-32.0); Mean Corpuscular Volume 96.3 fL (81-99); Mean Platelet Vol. 9.5 fl (6.2-12.0); POSITIVE COUNT YES; POSITIVE DIFFERENTIAL YES; POSITIVE MORPHOLOGY YES; Platelet Count 507 K/mm3 (150-450); RBC Distribution Width CV 21.3 % (11.6-14.6); Red Blood Count 3.21 M/mm3 (4.2-5.4); White Blood Count 21.5 K/mm3 (4.4-11.0)
[2019-01-10 10:44] LABS: Anion Gap 3 (5-15); BUN 74 mg/dL (7-18); BUN/Creat Ratio 58.3 RATIO (10-20); Calcium,Total 8.9 mg/dL (8.5-10.1); Chloride 91 mmol/L (98-107); Creatinine, Serum 1.27 mg/dL (0.55-1.02); EST Glomerular Filtration Rate 44 mL/min (>60); Est Glom Filt Rate - Afr Amer 53 mL/min (>60); Glucose 261 mg/dL (74-106); Potassium 4.2 mmol/L (3.5-5.1); Sodium Level 137 mmol/L (136-145)
[2019-01-10 10:50] LABS: Metamyelocyte 1 % (0-1); Neutrophil-Band 1 % (0-5); Neutrophil-Segmented 92 % (47-70); Total Cells Counted 100 (MANUAL DIFF)
[2019-01-10 10:51] LABS: Anisocytosis 2+; Hypochromasia 2+; Monocyte 5 % (0-10); Myelocyte 1 (0-0); Platelet Estimate SLT INC (ADEQ); Polychromasia 1+
[2019-01-10 10:52] LABS: Absolute Neutrophil Count 19.8 X10^3/uL (2.0-7.7)
[2019-01-10 11:21] LABS: Bedside Glucose 177 mg/dL (70-110)
[2019-01-10] MEDS: Glucerna Shake 120 ML LIQUID 60 ML PO ×2 (11:37→16:46)
[2019-01-10 11:51] LABS: Bedside Glucose 252 mg/dL (70-110)
--- NOTE | 2019-01-10 12:08 | CASEMGMT ---
SOCIAL WORK PATIENT FROM [facility]. PLAN TO RETURN UPON D/C. SPOKE WITH PATIENT AND FACILITY WHO ARE BOTH IN AGREEMENT WITH PLAN. GREEN SHEET ON CHART. PLAN: RETURN TO [facility]. APOLLO GARCIA, PARTICIPANT ADMINISTRATOR.
--- NOTE | 2019-01-10 12:35 | PN_ITS ---
<Alejandra Mendoza - Last Filed: 01/10/19 13:00> Patient Problems: Active and Suspected Problems (Last Updated 12/14/18 @ 17:17 by Pito Mckeon DO) Increased heart rate (Acute) Diastolic CHF, acute on chronic (Acute) Subjective: Patient seen and examined. Currently wearing BiPAP. Reports breathing improved on BiPAP. Patient reports she has not recently followed up with pulmonary medicine, has seen Dr. Dixon in the past and she was supposed to have BiPAP set up at home however she has not followed up. Denies fever, chills. Denies cough. Lower extremity edema improving. - Physical Exam Vitals/I&O's: Vital Signs Temp Pulse Resp BP Pulse Ox 97.4 F L 101 H 18 114/53 L 94 01/10/19 09:40 01/10/19 09:40 01/10/19 09:40 01/10/19 09:40 01/10/19 09:40 Oxygen Flow Rate (L/min) 4 Oxygen Delivery Method Nasal Cannula Weight: 282 lb 13.649 oz Body Mass Index (BMI) 50.1 Finger Stick Blood Glucose 478 Intake and Output for Last 24 Hours 01/08/19 01/09/19 01/10/19 23:59 23:59 23:59 Intake Total 290 / 290 600 / 600 Output Total 325 / 325 925 / 925 Balance -35 / -35 -325 / -325 General: Alert, Oriented x3, Cooperative HEENT: Atraumatic, PERRLA, EOMI, Normocephalic Neck: Supple, No JVD, Negative Carotid Bruits Lungs: Clear to auscultation, Diminished Cardiovascular: Regular Rhythm, Normal S1, Normal S2, Murmur, Tachycardic Abdomen: Bowel Sounds Present, Soft, Non Tender, Non-Distended, Obese Extremities: No clubbing, No cyanosis, Edema - +2-3 bilateral lower extremities Skin: No rashes, No breakdown Musculoskeletal: No Tenderness to Palpation of Joints or Extremities Neurological: Cranial nerves II-XII grossly intact, Neuro grossly intact Psych/Mental Status: Normal Affect, Appropriate Laboratory Results 01/09/19 17:13: WBC 21.7 H, RBC 3.29 L, Hgb 9.0 L, Hct 31.4 L, MCV 95.4 D, MCH 27.4, MCHC 28.7 L, RDW Std Deviation 73.0 H, RDW [employer]eff [employer] [place] 21.5 H, Plt Count 565 H, MPV 9.5, Immature Gran % (Auto) BIOLOGY INTERN, Neut % (Auto) BIOLOGY INTERN, Lymph % (Auto) BIOLOGY INTERN, Major % (Auto) BIOLOGY INTERN, Eos % (Auto) BIOLOGY INTERN, Baso % (Auto) BIOLOGY INTERN, Absolute Neuts (auto) 18.0 H, Absolute Lymphs (auto) 1.30, Neutrophils % (Manual) 82 H, Band Neutrophils % 1, Lymphocytes % (Manual) 6 L, Monocytes % (Manual) 7, Eosinophils % (Manual) 1, Metamyelocytes % 1, Myelocytes % 2 H, Nucleated RBC % BIOLOGY INTERN, Nucleated RBCs/100 WBC 1, Differential Comment , Diff Path Review May , Platelet Estimate [employer], Polychromasia 1+, Anisocytosis 2+, Stomatocytes 1+ 01/09/19 17:13: PT 14.3, INR 1.1, APTT 32.9 01/09/19 17:13: Sodium 133 L, Potassium 3.9, Chloride 89 L, Carbon Dioxide 40.0 H, Anion Gap 4 L, BUN 75 H, Creatinine 1.37 H, Estim Creat Clear Calc 31.61, Est GFR (MDRD) Af Amer 49 L, Est GFR (MDRD) Non-Af 40 L, BUN/Creatinine Ratio 54.7 H , Glucose 443 H, Calcium 8.7, Troponin I 0.023 01/09/19 17:13: B-Natriuretic Peptide 231.7 H 01/09/19 22:46: POC Glucose 192 H 01/10/19 06:48: POC Glucose 177 H 01/10/19 09:45: WBC 21.5 H, RBC 3.21 L, Hgb 8.7 L, Hct 30.9 L, MCV 96.3, MCH 27.1, MCHC 28.2 L, RDW Std Deviation 73.0 H, RDW [employer] [place] 21.3 H, Plt Count 507 H, MPV 9.5, Neut % (Auto) Not Reportable, Absolute Neuts (auto) 19.8 H, Absolute Lymphs (auto) 0.00 L, Total Counted 100, Neutrophils % (Manual) 92 H, Band Neutrophils % 1, Monocytes % (Manual) 5, Metamyelocytes % 1, Myelocytes % 1 H, Diff Path Review May foll, Platelet Estimate [employer], Polychromasia 1+, Hypochromasia 2+, Anisocytosis 2+ 01/10/19 09:45: Sodium 137, Potassium 4.2, Chloride 91 L, Carbon Dioxide 43.0 H, Anion Gap 3 L, BUN 74 H, Creatinine 1.27 H, Estim Creat Clear Calc 34.10, Est GFR (MDRD) Af Amer 53 L, Est GFR (MDRD) Non-Af 44 L, BUN/Creatinine Ratio 58.3 H , Glucose 261 H, Calcium 8.9 01/10/19 11:23: POC Glucose 252 H Current Medications Albuterol/Ipratropium (Duoneb) 3 ml INHALATION Q6HWA.RT [facility] Last Admin: 01/10/19 07:37 Dose: 3 ml Documented by: Atorvastatin Calcium (Lipitor) 10 mg PO QHS [facility] Last Admin: 01/09/19 23:00 Dose: 10 mg Documented by: Budesonide (Pulmicort Aerosol) 0.5 mg INHALATION Q12H.RT [facility] Last Admin: 01/10/19 07:37 Dose: 0.5 mg Documented by: Dexamethasone (Decadron) 2 mg PO DAILYCM [facility] Last Admin: 01/10/19 07:58 Dose: 2 mg Documented by: Dextrose (D50w Syringe) 0 gm IV X1 PRN; Protocol PRN Reason: Hypoglycemia Escitalopram Oxalate (Lexapro) 10 mg PO DAILY [facility] Last Admin: 01/10/19 09:37 Dose: 10 mg Documented by: Ferrous Sulfate (Ferrous Sulfate) 325 mg PO BIDCM [facility] Last Admin: 01/10/19 07:58 Dose: 325 mg Documented by: Furosemide (Lasix) 40 mg IV BIDLX [facility] Last Admin: 01/10/19 09:40 Dose: 40 mg Documented by: Glucagon () 1 mg IM .X1 PRN PRN Reason: Hypoglycemia Insulin Glargine (Lantus (Bkc)) 50 units SC QHS [facility] Last Admin: 01/09/19 22:50 Dose: 50 u Documented by: Insulin Human Lispro (Humalog Kwikpen (Bkc)) 0 unit SC ACHS [facility]; Protocol Last Admin: 01/10/19 11:37 Dose: 4 u Documented by: Metolazone (Zaroxolyn) 2.5 mg PO DAILY [facility] Last Admin: 01/10/19 09:37 Dose: 2.5 mg Documented by: Metoprolol Tartrate (Lopressor (Beta Jeffery)) 75 mg PO BID [facility] Last Admin: 01/10/19 09:37 Dose: 75 mg Documented by: Non-Formulary Medication (Dulaglutide) 0.75 mg SQ TU@1600 [facility] Nutritional Formula (Lactose Free) (Glucerna Shake) 60 ml PO TIDCM [facility] Last Admin: 01/10/19 11:37 Dose: 60 ml Documented by: Oxycodone HCl (Oxyir) 5 mg PO Q6H PRN PRN PRN Reason: Pain Score 1-1010 Pantoprazole Sodium (Protonix) 20 mg PO DAILY [facility] Last Admin: 01/10/19 09:37 Dose: 20 mg Documented by: Potassium Chloride (K-Dur) 20 meq PO TIDCM [facility] Last Admin: 01/10/19 11:38 Dose: 20 meq Documented by: Promethazine HCl (Phenergan Tablet) 25 mg PO Q6H PRN PRN Reason: NAUSEA Trazodone HCl (Desyrel) 25 mg PO QHS [facility] Last Admin: 01/09/19 23:12 Dose: 25 mg Documented by: Medical Necessity - Tobacco Use Smoking Status: Former smoker Assessment/Plan All Active Problems (Last Updated 12/14/18 @ 17:17 by Pito Mckeon DO) Atrial fibrillation with RVR (Acute) Complicated UTI (urinary tract infection) (Resolved) Severe hyperglycemia due to diabetes mellitus (Acute) Hyperkalemia, diminished renal excretion (Resolved) Physical debility (Resolved) Generalized weakness (Acute) Recurrent falls (Resolved) Abnormal cardiac enzyme level (Resolved) Shortness of breath (Acute) Increased heart rate (Acute) Acute respiratory failure with hypoxia and hypercapnia (Resolved) Elevated troponin I level (Resolved) Hyperglycemia due to type 2 diabetes mellitus (Acute) Acute encephalopathy (Resolved) COPD exacerbation (Resolved) Diastolic CHF, acute on chronic (Acute) CVA (cerebral vascular accident) (Resolved) CVA (cerebral vascular accident) (Resolved) History of GI bleeding (Resolved) 1. Acute on chronic diastolic CHF-chest x-ray on admission with mild CHF. BNP 231. Continue IV Lasix. Strict I&O. Daily weight. 1500 cc fluid restriction. Continue home metolazone regimen. Follows with Dr. Xavier as outpatient. Echo January 2018 showed an EF of 66%, moderately severe aortic valve stenosis, RVSP 38 mmHg, moderate mitral stenosis. Repeat echocardiogram shows an EF of 60%, stage II diastolic dysfunction, no significant change to aortic stenosis. 2. 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 Follows with Dr. Dixon. BiPAP PRN and nightly. 3. Severe aortic stenosis-patient has been evaluated for valve replacement, told she is not a candidate. 4. Chronic kidney disease stage III-stable, at baseline. 5. Hypertension-stable, continue home metoprolol regimen. 6. Hyperlipidemia-continue statin. 7. History of CVA-continue aspirin, statin. 8. Type 2 diabetes mellitus-continue home insulin regimen. Accu-Cheks ACHS/SSI. 9. Morbid obesity-encouraged diet lifestyle modifications. 10. Anxiety/depression-continue home SSRI, trazodone regimen. 11. History of GI bleed secondary to AVM/chronic anemia/iron deficiency anemia- stable, continue iron supplementation. Trend CBC. DVT prophylaxis-SCDs This patient was seen by SHOLA Garcia under the supervision of Dr. Lazo. <Dandy Lazo - Last Filed: 01/10/19 13:44> - Physical Exam Vitals/I&O's: Vital Signs Temp Pulse Resp BP Pulse Ox 97.4 F L 84 18 114/53 L 94 01/10/19 09:40 01/10/19 13:31 01/10/19 13:31 01/10/19 09:40 01/10/19 09:40 Oxygen Flow Rate (L/min) 4 Oxygen Delivery Method Nasal Cannula Weight: 128.3 kg Body Mass Index (BMI) 50.1 Finger Stick Blood Glucose 478 Intake and Output for Last 24 Hours 01/08/19 01/09/19 01/10/19 23:59 23:59 23:59 Intake Total 290 / 290 600 / 600 Output Total 325 / 325 925 / 925 Balance -35 / -35 -325 / -325 Laboratory Results 01/09/19 17:13: WBC 21.7 H, RBC 3.29 L, Hgb 9.0 L, Hct 31.4 L, MCV 95.4 D, MCH 27.4, MCHC 28.7 L, RDW Std Deviation 73.0 H, RDW [employer] [place] 21.5 H, Plt Count 565 H, MPV 9.5, Immature Gran % (Auto) BIOLOGY INTERN, Neut % (Auto) BIOLOGY INTERN, Lymph % (Auto) BIOLOGY INTERN, Major % (Auto) BIOLOGY INTERN, Eos % (Auto) BIOLOGY INTERN, Baso % (Auto) BIOLOGY INTERN, Absolute Neuts (auto) 18.0 H, Absolute Lymphs (auto) 1.30, Neutrophils % (Manual) 82 H, Band Neutrophils % 1, Lymphocytes % (Manual) 6 L, Monocytes % (Manual) 7, Eosinophils % (Manual) 1, Metamyelocytes % 1, Myelocytes % 2 H, Nucleated RBC % BIOLOGY INTERN, Nucleated RBCs/100 WBC 1, Differential Comment , Diff Path Review May , Platelet Estimate [employer], Polychromasia 1+, Anisocytosis 2+, Stomatocytes 1+ 01/09/19 17:13: PT 14.3, INR 1.1, APTT 32.9 01/09/19 17:13: Sodium 133 L, Potassium 3.9, Chloride 89 L, Carbon Dioxide 40.0 H, Anion Gap 4 L, BUN 75 H, Creatinine 1.37 H, Estim Creat Clear Calc 31.61, Est GFR (MDRD) Af Amer 49 L, Est GFR (MDRD) Non-Af 40 L, BUN/Creatinine Ratio 54.7 H , Glucose 443 H, Calcium 8.7, Troponin I 0.023 01/09/19 17:13: B-Natriuretic Peptide 231.7 H 01/09/19 22:46: POC Glucose 192 H 01/10/19 06:48: POC Glucose 177 H 01/10/19 09:45: WBC 21.5 H, RBC 3.21 L, Hgb 8.7 L, Hct 30.9 L, MCV 96.3, MCH 27.1, MCHC 28.2 L, RDW Std Deviation 73.0 H, RDW [employer] [place] 21.3 H, Plt Count 507 H, MPV 9.5, Neut % (Auto) Not Reportable, Absolute Neuts (auto) 19.8 H, Absolute Lymphs (auto) 0.00 L, Total Counted 100, Neutrophils % (Manual) 92 H, Band Neutrophils % 1, Monocytes % (Manual) 5, Metamyelocytes % 1, Myelocytes % 1 H, Diff Path Review May foll, Platelet Estimate [employer], Polychromasia 1+, Hypochromasia 2+, Anisocytosis 2+ 01/10/19 09:45: Sodium 137, Potassium 4.2, Chloride 91 L, Carbon Dioxide 43.0 H, Anion Gap 3 L, BUN 74 H, Creatinine 1.27 H, Estim Creat Clear Calc 34.10, Est GFR (MDRD) Af Amer 53 L, Est GFR (MDRD) Non-Af 44 L, BUN/Creatinine Ratio 58.3 H , Glucose 261 H, Calcium 8.9 01/10/19 11:23: POC Glucose 252 H Current Medications Albuterol/Ipratropium (Duoneb) 3 ml INHALATION Q6HWA.RT [facility] Last Admin: 01/10/19 13:31 Dose: 3 ml Documented by: Atorvastatin Calcium (Lipitor) 10 mg PO QHS [facility] Last Admin: 01/09/19 23:00 Dose: 10 mg Documented by: Budesonide (Pulmicort Aerosol) 0.5 mg INHALATION Q12H.RT [facility] Last Admin: 01/10/19 07:37 Dose: 0.5 mg Documented by: [facility] Admin: 01/10/19 07:58 Dose: 2 mg Documented by: Dextrose (D50w Syringe) 0 gm IV X1 PRN; Protocol PRN Reason: Hypoglycemia Escitalopram Oxalate (Lexapro) 10 mg PO DAILY [facility] Last Admin: 01/10/19 09:37 Dose: 10 mg Documented by: Ferrous Sulfate (Ferrous Sulfate) 325 mg PO BIDCM [facility] Last Admin: 01/10/19 07:58 Dose: 325 mg Documented by: Furosemide (Lasix) 40 mg IV BIDLX [facility] Last Admin: 01/10/19 09:40 Dose: 40 mg Documented by: Glucagon () 1 mg IM .X1 PRN PRN Reason: Hypoglycemia Insulin Glargine (Lantus (Bkc)) 50 units SC QHS [facility] Last Admin: 01/09/19 22:50 Dose: 50 u Documented by: Insulin Human Lispro (Humalog Kwikpen (Bk)) 0 unit SC ACHS [facility]; Protocol Last Admin: 01/10/19 11:37 Dose: 4 u Documented by: Metolazone (Zaroxolyn) 2.5 mg PO DAILY [facility] Last Admin: 01/10/19 09:37 Dose: 2.5 mg Documented by: Metoprolol Tartrate (Lopressor (Beta Jeffery)) 75 mg PO BID [facility] Last Admin: 01/10/19 09:37 Dose: 75 mg Documented by: Non-Formulary Medication (Dulaglutide) 0.75 mg SQ TU@1600 [facility] Nutritional Formula (Lactose Free) (Glucerna Shake) 60 ml PO TIDCM [facility] Last Admin: 01/10/19 11:37 Dose: 60 ml Documented by: Oxycodone HCl (Oxyir) 5 mg PO Q6H PRN PRN PRN Reason: Pain Score 1-10/10 Pantoprazole Sodium (Protonix) 20 mg PO DAILY [facility] Last Admin: 01/10/19 09:37 Dose: 20 mg Documented by: Potassium Chloride (K-Dur) 20 meq PO TIDCM [facility] Last Admin: 01/10/19 11:38 Dose: 20 meq Documented by: Promethazine HCl (Phenergan Tablet) 25 mg PO Q6H PRN PRN Reason: NAUSEA Trazodone HCl (Desyrel) 25 mg PO QHS [facility] Last Admin: 01/09/19 23:12 Dose: 25 mg Documented by: Assessment/Plan This patient was seen in conjunction with SHOLA Garcia . I have independently interviewed and examined the patient and reviewed pertinent historical, laboratory, and other data. Please refer to SHOLA Garcia note for details of this patient's presentation, findings, and recommendations. I have reviewed SHOLA Garcia note and concur with documented findings. In brief, patient is a 68-year-old female with multiple comorbidities admitted with progressive shortness of breath and assessment of congestive heart failure made admitted to a monitored bed where patient is currently being managed. Physical Examination: GENERAL: Dyspneic at rest HEENT: Atraumatic; EYES; Anicteric, Normal Conjunctiva NECK; supple, normal thyroid, RESPIRATORY: Diminished to auscultation CARDIOVASCULAR: Regular S1 S2, GI: soft, normoactive bowel sounds, : No Renal angle tenderness; EXTREMITIES: Edema involving both upper and lower extremities MUSCULOSKELETAL: no muscle waisting NEURO: Awake; no lateralizing signs. SKIN: No Rash PSYCH; Flat affect Assessment: Acute on chronic congestive heart failure with preserved ejection fraction 2. Chronic hypercapnic and hypoxic respiratory failure 3. Essential hypertension 4. Dyslipidemia 5. Diabetes mellitus type 2 6. Chronic kidney disease stage III 7. History of previous CVA 8. Morbid obesity with BMI of 50 9. Depression with anxiety 10. 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 I have discussed the results of my overview and impressions with the patient 2. Options for management were reviewed Code Visit Inpatient E&M: 95920 Subs Hosp L3
[2019-01-10 16:36] LABS: Bedside Glucose 390 mg/dL (70-110)
[2019-01-10] MEDS: Atorvastatin Calcium 10 MG Tablet PO (22:49)
[2019-01-10] MEDS: traZODone 50 MG Tablet 25 MG PO (22:51)
[2019-01-10 23:45] LABS: Bedside Glucose 246 mg/dL (70-110)
[2019-01-11] VITALS (22 sets, daily range): BP systolic 101–120; BP diastolic 51–62; PULSE 70–106; RESP 12–20; TEMP 36.3–36.7; O2SAT 90–99
--- NOTE | 2019-01-11 00:55 | NURSING ---
Pt requesting her be called and asked to come in. This RN attempted to call pt at phone number that was listed in contacts. Nobody answered the phone.
[2019-01-11] MEDS: Furosemide 40 MG/4 ML Vial IV ×3 (02:19→18:03)
[2019-01-11] MEDS: proMETHazine 25 MG Tablet PO (03:00)
[2019-01-11] MEDS: Insulin Lispro 100 UNIT/ML INSULN.PEN SC ×4 (06:48→21:47)
[2019-01-11] MEDS: Ipratropium/Albuterol Sulfate 3 ML AMPUL.NEB INHALATION ×3 (07:01→19:10)
[2019-01-11] MEDS: Budesonide Respules 0.5 MG/2 ML AMPUL.NEB. INHALATION ×2 (07:01→19:10)
[2019-01-11 07:52] LABS: Hematocrit 30.9 % (37-47); Hemoglobin 8.6 g/dL (12.0-15.0); Mean Corp Hgb Conc 27.8 g/dL (32-36); Mean Corpuscular Hgb 26.8 pg (27.0-32.0); Mean Corpuscular Volume 96.3 fL (81-99); Mean Platelet Vol. 9.4 fl (6.2-12.0); POSITIVE MORPHOLOGY YES; Platelet Count 481 K/mm3 (150-450); RBC Distribution Width CV 20.3 % (11.6-14.6); RBC Distribution Width SD 69.4 fl (35.1-43.9); Red Blood Count 3.21 M/mm3 (4.2-5.4)
[2019-01-11 07:59] LABS: Anion Gap 4 (5-15); BUN 68 mg/dL (7-18); BUN/Creat Ratio 58.6 RATIO (10-20); Calcium,Total 9.3 mg/dL (8.5-10.1); Chloride 90 mmol/L (98-107); Creatinine, Serum 1.16 mg/dL (0.55-1.02); EST Glomerular Filtration Rate 49 mL/min (>60); Est Glom Filt Rate - Afr Amer 59 mL/min (>60); Estimated Creatinine Clearance 37.33 ml/min; Glucose 165 mg/dL (74-106); Potassium 3.3 mmol/L (3.5-5.1); Sodium Level 138 mmol/L (136-145)
[2019-01-11 08:27] LABS: Scan Indicated on CBC? Y/N YES- FLAGS NOTED
[2019-01-11 08:28] LABS: Differential Comment SCANNED
[2019-01-11] MEDS: dexAMETHasone 4 MG Tablet 2 MG PO (08:47)
[2019-01-11] MEDS: Glucerna Shake 120 ML LIQUID 60 ML PO ×2 (08:48→16:06)
[2019-01-11] MEDS: Ferrous Sulfate 325 MG Tablet PO ×2 (08:48→16:06)
[2019-01-11] MEDS: Metoprolol Tartrate 25 MG Tablet 75 MG PO ×2 (09:41→21:48)
[2019-01-11] MEDS: Pantoprazole Sodium 20 MG Tablet PO (09:41)
[2019-01-11] MEDS: Escitalopram Oxalate 10 MG Tablet PO (09:41)
[2019-01-11] MEDS: Metolazone 2.5 MG Tablet PO (09:42)
[2019-01-11 11:06] LABS: Bedside Glucose 156 mg/dL (70-110)
[2019-01-11 11:50] LABS: Bedside Glucose 296 mg/dL (70-110)
--- NOTE | 2019-01-11 12:06 | PCM.PROGNOTE ---
<Alejandra Mendoza - Last Filed: 01/11/19 12:09> Patient Problems: Active and Suspected Problems (Last Updated 12/14/18 @ 17:17 by Pito Mckeon DO) Increased heart rate (Acute) Diastolic CHF, acute on chronic (Acute) Subjective: Patient seen and examined. Resting comfortably in chair. Patient reports she is more comfortable wearing BiPAP and has been wearing it continuously with the exception of during meals. Patient does not appear to be in any respiratory distress. Edema improved from prior. - Physical Exam Vitals/I&O's: Vital Signs Temp Pulse Resp BP Pulse Ox 97.6 F L 106 H 20 H 110/58 L 99 01/11/19 09:35 01/11/19 09:41 01/11/19 09:35 01/11/19 09:41 01/11/19 09:35 Oxygen Flow Rate (L/min) 6 Oxygen Delivery Method Bi-pap Weight: 281 lb 8.485 oz Body Mass Index (BMI) 50.1 Finger Stick Blood Glucose 478 Intake and Output for Last 24 Hours 01/09/19 01/10/19 01/11/19 23:59 23:59 23:59 Intake Total 290 / 290 1560 / 1560 900 / 900 Output Total 325 / 325 1875 / 1875 775 / 775 Balance -35 / -35 -315 / -315 125 / 125 General: Alert, Oriented x3, Cooperative HEENT: Atraumatic, PERRLA, EOMI, Normocephalic Neck: Supple, No JVD, Negative Carotid Bruits Lungs: Normal air movement, Diminished Cardiovascular: Regular Rhythm, Normal S1, Normal S2, Murmur, Tachycardic Abdomen: Bowel Sounds Present, Soft, Non Tender, Non-Distended, Obese Extremities: No clubbing, No cyanosis, Edema - Bilateral lower extremities, improved. Ryne wraps in place. Skin: No rashes, No breakdown Musculoskeletal: No Tenderness to Palpation of Joints or Extremities Neurological: Cranial nerves II-XII grossly intact, Neuro grossly intact Psych/Mental Status: Normal Affect, Appropriate Laboratory Results 01/10/19 16:24: POC Glucose 390 H 01/10/19 22:47: POC Glucose 246 H 01/11/19 06:46: POC Glucose 156 H 01/11/19 07:35: WBC 18.0 H, RBC 3.21 L, Hgb 8.6 L, Hct 30.9 L, MCV 96.3, MCH 26.8 L, MCHC 27.8 L, RDW Std Deviation 69.4 H, RDW [place]eff of [place] 20.3 H, Plt Count 481 H, MPV 9.4, Differential Comment SCANNED 01/11/19 07:35: Sodium 138, Potassium 3.3 L, Chloride 90 L, Carbon Dioxide 44.0 H, Anion Gap 4 L, BUN 68 H, Creatinine 1.16 H, Estim Creat Clear Calc 37.33, Est GFR (MDRD) Af Amer 59 L, Est GFR (MDRD) Non-Af 49 L, BUN/Creatinine Ratio 58.6 H, Glucose 165 H, Calcium 9.3 01/11/19 11:29: POC Glucose 296 H Current Medications Albuterol/Ipratropium (Duoneb) 3 ml INHALATION Q6HWA.RT [facility] Last Admin: 01/11/19 07:01 Dose: 3 ml Documented by: Atorvastatin Calcium (Lipitor) 10 mg PO QHS [facility] Last Admin: 01/10/19 22:49 Dose: 10 mg Documented by: Budesonide (Pulmicort Aerosol) 0.5 mg INHALATION Q12H.RT [facility] Last Admin: 01/11/19 07:01 Dose: 0.5 mg Documented by: Dexamethasone ([facility]adron) [facility] Last Admin: 01/11/19 08:47 Dose: 2 mg Documented by: Dextrose (D50w Syringe) 0 gm IV X1 PRN; Protocol PRN Reason: Hypoglycemia Escitalopram Oxalate (Lexapro) 10 mg PO DAILY [facility] Last Admin: 01/11/19 09:41 Dose: 10 mg Documented by: Ferrous Sulfate (Ferrous Sulfate) 325 mg PO BIDCM [facility] Last Admin: 01/11/19 08:48 Dose: 325 mg Documented by: Furosemide (Lasix) 40 mg IV BIDLX [facility] Last Admin: 01/11/19 09:40 Dose: 40 mg Documented by: Glucagon () 1 mg IM .X1 PRN PRN Reason: Hypoglycemia Insulin Glargine (Lantus (Bk)) 50 units SC QHS [facility] Last Admin: 01/10/19 22:51 Dose: 50 u Documented by: Insulin Human Lispro (Humalog Kwikpen (Bk)) 0 unit SC ACHS [facility]; Protocol Last Admin: 01/11/19 11:35 Dose: 6 u Documented by: Metolazone (Zaroxolyn) 2.5 mg PO DAILY [facility] Last Admin: 01/11/19 09:42 Dose: 2.5 mg Documented by: Metoprolol Tartrate (Lopressor (Beta Jeffery)) 75 mg PO BID [facility] Last Admin: 01/11/19 09:41 Dose: 75 mg Documented by: Non-Formulary Medication (Dulaglutide) 0.75 mg SQ TU@1600 [facility] Nutritional Formula (Lactose Free) (Glucerna Shake) 60 ml PO TIDCM [facility] Last Admin: 01/11/19 11:36 Dose: Not Given Documented by: Oxycodone HCl (Oxyir) 5 mg PO Q6H PRN PRN PRN Reason: Pain Score 1-10/10 Pantoprazole Sodium (Protonix) 20 mg PO DAILY [facility] Last Admin: 01/11/19 09:41 Dose: 20 mg Documented by: Potassium Chloride (K-Dur) 20 meq PO TIDCM [facility] Last Admin: 01/11/19 11:35 Dose: 20 meq Documented by: Promethazine HCl (Phenergan Tablet) 25 mg PO Q6H PRN PRN Reason: NAUSEA Last Admin: 01/11/19 03:00 Dose: 25 mg Documented by: Sodium Chloride () 10 - 40 ml IV UD PRN PRN Reason: SALINE FLUSH Trazodone HCl (Desyrel) 25 mg PO QHS [facility] Last Admin: 01/10/19 22:51 Dose: 25 mg Documented by: Medical Necessity - Tobacco Use Smoking Status: Former smoker Assessment/Plan All Active Problems (Last Updated 12/14/18 @ 17:17 by Pito Mckeon DO) Atrial fibrillation with RVR (Acute) Complicated UTI (urinary tract infection) (Resolved) Severe hyperglycemia due to diabetes mellitus (Acute) Hyperkalemia, diminished renal excretion (Resolved) Physical debility (Resolved) Generalized weakness (Acute) Recurrent falls (Resolved) Abnormal cardiac enzyme level (Resolved) Shortness of breath (Acute) Increased heart rate (Acute) Acute respiratory failure with hypoxia and hypercapnia (Resolved) Elevated troponin I level (Resolved) Hyperglycemia due to type 2 diabetes mellitus (Acute) Acute encephalopathy (Resolved) COPD exacerbation (Resolved) Diastolic CHF, acute on chronic (Acute) CVA (cerebral vascular accident) (Resolved) CVA (cerebral vascular accident) (Resolved) History of GI bleeding (Resolved) 1. Acute on chronic diastolic CHF-chest x-ray on admission with mild CHF. BNP 231. Continue IV Lasix. Strict I&O. Daily weight. 1500 cc fluid restriction. Continue home metolazone regimen. Follows with Dr. Xavier as outpatient. Echo January 2018 showed an EF of 66%, moderately severe aortic valve stenosis, RVSP 38 mmHg, moderate mitral stenosis. Repeat echocardiogram shows an EF of 60%, stage II diastolic dysfunction, no significant change to aortic stenosis. 2. 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 Follows with Dr. Dixon. BiPAP PRN and nightly. 3. Severe aortic stenosis-patient has been evaluated for valve replacement, told she is not a candidate. 4. Chronic kidney disease stage III-stable, at baseline. 5. Hypertension-stable, continue home metoprolol regimen. 6. Hyperlipidemia-continue statin. 7. History of CVA-continue aspirin, statin. 8. Type 2 diabetes mellitus-continue home insulin regimen. Accu-Cheks ACHS/SSI. 9. Morbid obesity-encouraged diet lifestyle modifications. 10. Anxiety/depression-continue home SSRI, trazodone regimen. 11. History of GI bleed secondary to AVM/chronic anemia/iron deficiency anemia-stable, continue iron supplementation. Trend CBC. DVT prophylaxis-SCDs This patient was seen by SHOLA Garcia under the supervision of Dr. Lazo. <Dandy Lazo - Last Filed: 01/11/19 12:21> - Physical Exam Vitals/I&O's: Vital Signs Temp Pulse Resp BP Pulse Ox 97.6 F L 106 H 20 H 110/58 L 99 01/11/19 09:35 01/11/19 09:41 01/11/19 09:35 01/11/19 09:41 01/11/19 09:35 Oxygen Flow Rate (L/min) 6 Oxygen Delivery Method Bi-pap Weight: 127.7 kg Body Mass Index (BMI) 50.1 Finger Stick Blood Glucose 478 Intake and Output for Last 24 Hours 01/09/19 01/10/19 01/11/19 23:59 23:59 23:59 Intake Total 290 / 290 1560 / 1560 900 / 900 Output Total 325 / 325 1875 / 1875 775 / 775 Balance -35 / -35 -315 / -315 125 / 125 Laboratory Results 01/10/19 16:24: POC Glucose 390 H 01/10/19 22:47: POC Glucose 246 H 01/11/19 06:46: POC Glucose 156 H 01/11/19 07:35: WBC 18.0 H, RBC 3.21 L, Hgb 8.6 L, Hct 30.9 L, MCV 96.3, MCH 26.8 L, MCHC 27.8 L, RDW Std Deviation 69.4 H, RDW [place] 20.3 H, Plt Count 481 H, MPV 9.4, Differential Comment SCANNED 01/11/19 07:35: Sodium 138, Potassium 3.3 L, Chloride 90 L, Carbon Dioxide 44.0 H, Anion Gap 4 L, BUN 68 H, Creatinine 1.16 H, Estim Creat Clear Calc 37.33, Est GFR (MDRD) Af Amer 59 L, Est GFR (MDRD) Non-Af 49 L, BUN/Creatinine Ratio 58.6 H, Glucose 165 H, Calcium 9.3 01/11/19 11:29: POC Glucose 296 H Current Medications Albuterol/Ipratropium (Duoneb) 3 ml INHALATION Q6HWA.RT [facility] Last Admin: 01/11/19 07:01 Dose: 3 ml Documented by: Atorvastatin Calcium (Lipitor) 10 mg PO QHS [facility] Last Admin: 01/10/19 22:49 Dose: 10 mg Documented by: Budesonide (Pulmicort Aerosol) 0.5 mg INHALATION Q12H.RT [facility] Last Admin: 01/11/19 07:01 Dose: 0.5 mg Documented by: Dexamethasone (Decadron) [facility] Last Admin: 01/11/19 08:47 Dose: 2 mg Documented by: Dextrose (D50w Syringe) 0 gm IV X1 PRN; Protocol PRN Reason: Hypoglycemia Escitalopram Oxalate (Lexapro) 10 mg PO DAILY [facility] Last Admin: 01/11/19 09:41 Dose: 10 mg Documented by: Ferrous Sulfate (Ferrous Sulfate) 325 [facility] Last Admin: 01/11/19 08:48 Dose: 325 mg Documented by: Furosemide (Lasix) 40 mg IV BIDLX [facility] Last Admin: 01/11/19 09:40 Dose: 40 mg Documented by: Glucagon () 1 mg IM .X1 PRN PRN Reason: Hypoglycemia Insulin Glargine (Lantus (Bk)) 50 units SC QHS [facility] Last Admin: 01/10/19 22:51 Dose: 50 u Documented by: Insulin Human Lispro (Humalog Kwikpen ([facility])) 0 unit SC ACHS [facility]; Protocol Last Admin: 01/11/19 11:35 Dose: 6 u Documented by: Metolazone (Zaroxolyn) 2.5 mg PO DAILY [facility] Last Admin: 01/11/19 09:42 Dose: 2.5 mg Documented by: Metoprolol Tartrate (Lopressor (Beta Jeffery)) 75 mg PO BID [facility] Last Admin: 01/11/19 09:41 Dose: 75 mg Documented by: Non-Formulary Medication (Dulaglutide) 0.75 mg SQ TU@1600 [facility] Nutritional Formula (Lactose Free) (Glucerna Shake) 60 ml PO TIDCM [facility] Last Admin: 01/11/19 11:36 Dose: Not Given Documented by: Oxycodone HCl (Oxyir) 5 mg PO Q6H PRN PRN PRN Reason: Pain Score 1-10/10 Pantoprazole Sodium (Protonix) 20 mg PO DAILY [facility] Last Admin: 01/11/19 09:41 Dose: 20 mg Documented by: Potassium Chloride (K-Dur) 20 meq PO TIDCM [facility] Last Admin: 01/11/19 11:35 Dose: 20 meq Documented by: Promethazine HCl (Phenergan Tablet) 25 mg PO Q6H PRN PRN Reason: NAUSEA Last Admin: 01/11/19 03:00 Dose: 25 mg Documented by: Sodium Chloride () 10 - 40 ml IV UD PRN PRN Reason: SALINE FLUSH Trazodone HCl (Desyrel) 25 mg PO QHS [facility] Last Admin: 01/10/19 22:51 Dose: 25 mg Documented by: Assessment/Plan This patient was seen in conjunction with SHOLA Garcia . I have independently interviewed and examined the patient and reviewed pertinent historical, laboratory, and other data. Please refer to Alejandra Reji, GUN WELDER-C note for details of this patient's presentation, findings, and recommendations. I have reviewed Alejandra Mendoza NP-C note and concur with documented findings. In brief, patient is a 68-year-old female with multiple comorbidities admitted with progressive shortness of breath and assessment of congestive heart failure made admitted to a monitored bed where patient is currently being managed. 01/11/2019: Patient seen swelling significantly down. Diagnostic data reviewed significant for potassium of 3.3 which has been replaced Physical Examination: GENERAL: Dyspneic at rest HEENT: Atraumatic; EYES; Anicteric, Normal Conjunctiva NECK; supple, normal thyroid, RESPIRATORY: Diminished to auscultation CARDIOVASCULAR: Regular S1 S2, GI: soft, normoactive bowel sounds, : No Renal angle tenderness; EXTREMITIES: Edema involving both upper and lower extremities NEURO: Awake; no lateralizing signs. SKIN: No Rash PSYCH; Flat affect Assessment: 1. Acute on chronic congestive heart failure with preserved ejection fraction 2. Chronic hypercapnic and hypoxic respiratory failure 3. Essential hypertension 4. Dyslipidemia 5. Diabetes mellitus type 2 6. Chronic kidney disease stage III 7. History of previous CVA 8. Morbid obesity with BMI of 50 9. Depression with anxiety 10. 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 Hypokalemia Recommendations: 1. I have discussed the results of my overview and impressions with the patient 2. Options for management were reviewed Code Visit Inpatient E&M: 02212 Subs Hosp L2
[2019-01-11 16:20] LABS: Bedside Glucose 235 mg/dL (70-110)
--- NOTE | 2019-01-11 16:28 | CPS ---
Added a humidifier to Bipap for patient comfort.
[2019-01-11] MEDS: oxyCODONE 5 MG Tablet PO (18:02)
[2019-01-11] MEDS: 0.9% Saline Lock 10 ML Syringe IV (18:06)
[2019-01-11] MEDS: Menthol/Lanolin/Calamine/Znox 113 GM Tube 1 APPLIC TOPICAL (21:40)
[2019-01-11] MEDS: traZODone 50 MG Tablet 25 MG PO (21:47)
[2019-01-11] MEDS: Atorvastatin Calcium 10 MG Tablet PO (21:48)
[2019-01-11 22:01] LABS: Bedside Glucose 220 mg/dL (70-110)
[2019-01-12] VITALS (29 sets, daily range): BP systolic 103–114; BP diastolic 52–76; PULSE 77–109; RESP 12–30; TEMP 36.4–36.7; O2SAT 35–97
[2019-01-12] MEDS: Ipratropium/Albuterol Sulfate 3 ML AMPUL.NEB INHALATION ×3 (01:13→13:43)
[2019-01-12 06:02] LABS: Hematocrit 29.1 % (37-47); Hemoglobin 8.1 g/dL (12.0-15.0); Mean Corp Hgb Conc 27.8 g/dL (32-36); Mean Platelet Vol. 9.5 fl (6.2-12.0); POSITIVE MORPHOLOGY YES; Platelet Count 438 K/mm3 (150-450); RBC Distribution Width CV 19.2 % (11.6-14.6); RBC Distribution Width SD 67.7 fl (35.1-43.9); White Blood Count 14.1 K/mm3 (4.4-11.0)
[2019-01-12 06:15] LABS: Scan Indicated on CBC? Y/N YES- FLAGS NOTED
[2019-01-12 06:29] LABS: Anion Gap 5 (5-15); BUN 67 mg/dL (7-18); BUN/Creat Ratio 58.8 RATIO (10-20); Chloride 88 mmol/L (98-107); Creatinine, Serum 1.14 mg/dL (0.55-1.02); EST Glomerular Filtration Rate 50 mL/min (>60); Est Glom Filt Rate - Afr Amer 61 mL/min (>60); Estimated Creatinine Clearance 37.98 ml/min; Glucose 149 mg/dL (74-106); Potassium 3.5 mmol/L (3.5-5.1); Sodium Level 138 mmol/L (136-145)
[2019-01-12 06:35] LABS: Bedside Glucose 142 mg/dL (70-110)
[2019-01-12 07:02] LABS: Differential Comment SCANNED
[2019-01-12] MEDS: Budesonide Respules 0.5 MG/2 ML AMPUL.NEB. INHALATION (07:14)
[2019-01-12] MEDS: Menthol/Lanolin/Calamine/Znox 113 GM Tube 1 APPLIC TOPICAL ×2 (09:28→21:35)
[2019-01-12] MEDS: Ferrous Sulfate 325 MG Tablet PO ×2 (09:28→17:00)
[2019-01-12] MEDS: Escitalopram Oxalate 10 MG Tablet PO (09:29)
[2019-01-12] MEDS: Furosemide 40 MG/4 ML Vial IV ×3 (09:29→21:36)
[2019-01-12] MEDS: Pantoprazole Sodium 20 MG Tablet PO (09:29)
[2019-01-12] MEDS: Metoprolol Tartrate 25 MG Tablet 75 MG PO ×2 (09:29→21:35)
[2019-01-12] MEDS: Metolazone 2.5 MG Tablet PO (09:30)
[2019-01-12] MEDS: dexAMETHasone 4 MG Tablet 2 MG PO (09:30)
--- NOTE | 2019-01-12 10:55 | NURSING ---
NURSE BRIGGS FROM [facility] CALLED TO GET UPDATE
[2019-01-12 11:43] LABS: Pathologist Review Reviewed
[2019-01-12 11:47] LABS: Pathologist Review Reviewed
[2019-01-12] MEDS: Fluticasone 0.05% 1 SPRAY NASAL.SRY NASAL ×2 (11:47→21:36)
[2019-01-12] MEDS: Insulin Lispro 100 UNIT/ML INSULN.PEN SC ×3 (11:47→21:37)
[2019-01-12] MEDS: Glucerna Shake 120 ML LIQUID 60 ML PO ×2 (11:48→17:00)
[2019-01-12 11:55] LABS: Bedside Glucose 243 mg/dL (70-110)
--- NOTE | 2019-01-12 12:10 | CPS ---
Patient wanted to eat but sats were 79 on 4lpm and patient wanted back on the BiPAP. Patient placed on High flow therapy at 48% FiO2 and 60lpm and 31 degrees. Patient tolerated High Flow for 10 minutes and was able to eat a little. Back on BiPAP at 1220. RN and Dr Zack davenport.
--- NOTE | 2019-01-12 12:11 | PN_ITS ---
<Alejandra Mendoza - Last Filed: 01/12/19 12:16> Subjective: Patient seen and examined. Does not feel her breathing is improving. Discussed weaning use of BiPAP and patient states she does not want to take it off. She has been wearing BiPAP [id number]. She does not appear to be in any respiratory distress. Patient does not want to return to SNF at discharge however states she will not go home unless she has BiPAP at home. - Physical Exam Vitals/I&O's: Vital Signs Temp Pulse Resp BP Pulse Ox 98.0 F 100 20 H 105/73 97 01/12/19 10:50 01/12/19 10:50 01/12/19 10:50 01/12/19 10:50 01/12/19 10:50 Oxygen Flow Rate (L/min) 4 Oxygen Delivery Method Bi-pap Weight: 281 lb 8.485 oz Body Mass Index (BMI) 50.1 Finger Stick Blood Glucose 478 Intake and Output for Last 24 Hours 01/10/19 01/11/19 01/12/19 23:59 23:59 23:59 Intake Total 1560 / 1560 2019 / 2020 240 / 240 Output Total 1875 / 1875 1525 / 1525 350 / 350 Balance -315 / -315 495 / 495 -110 / -110 General: Alert, Oriented x3, Cooperative HEENT: Atraumatic, PERRLA, EOMI, Normocephalic Neck: Supple, No JVD, Negative Carotid Bruits Lungs: Clear to auscultation, Diminished Cardiovascular: Regular Rhythm, Normal S1, Normal S2, Murmur, Tachycardic Abdomen: Bowel Sounds Present, Soft, Non Tender, Non-Distended, Obese Extremities: No clubbing, No cyanosis, Edema - Bilateral lower extremities, improved. Musculoskeletal: No Tenderness to Palpation of Joints or Extremities Neurological: Cranial nerves II-XII grossly intact, Neuro grossly intact Psych/Mental Status: Normal Affect, Appropriate Laboratory Results 01/09/19 17:13: Diff Path Review Reviewed 01/10/19 09:45: Diff Path Review Reviewed 01/11/19 16:04: POC Glucose 235 H 01/11/19 21:46: POC Glucose 220 H 01/12/19 05:15: WBC 14.1 H, RBC 3.00 L, Hgb 8.1 L, Hct 29.1 L, MCV 97.0, MCH 27. 0, MCHC 27.8 L, RDW Std Deviation 67.7 H, RDW [place] 19.2 H, Plt Count 438, MPV 9.5, Differential Comment SCANNED 01/12/19 05:15: Sodium 138, Potassium 3.5, Chloride 88 L, Carbon Dioxide 45.0 H, Anion Gap 5, BUN 67 H, Creatinine 1.14 H, Estim Creat Clear Calc 37.98, Est GFR (MDRD) Af Amer 61, Est GFR (MDRD) Non-Af 50 L, BUN/Creatinine Ratio 58.8 H, Glucose 149 H, Calcium 9.0 01/12/19 06:32: POC Glucose 142 H 01/12/19 11:45: POC Glucose 243 H Current Medications Albuterol/Ipratropium (Duoneb) 3 ml INHALATION Q6HWA.RT [facility] Last Admin: 01/12/19 07:08 Dose: 3 ml Documented by: Atorvastatin Calcium (Lipitor) 10 mg PO QHS [facility] Last Admin: 01/11/19 21:48 Dose: 10 mg Documented by: Budesonide (Pulmicort Aerosol) 0.5 mg INHALATION Q12H.RT [facility] Last Admin: 01/12/19 07:14 Dose: 0.5 mg Documented by: Calamine/Phenol (Calmoseptine Ointment) 1 applic TOPICAL BID [facility]; Protocol Last Admin: 01/12/19 09:28 Dose: 1 applicatio Documented by: [facility] ([facility]) [facility] Last Admin: 01/12/19 09:30 Dose: 2 mg Documented by: Dextrose (D50w Syringe) 0 gm IV X1 PRN; Protocol PRN Reason: Hypoglycemia Escitalopram Oxalate (Lexapro) 10 mg PO DAILY [facility] Last Admin: 01/12/19 09:29 Dose: 10 mg Documented by: Ferrous Sulfate (Ferrous Sulfate) 325 mg PO BIDCM [facility] Last Admin: 01/12/19 09:28 Dose: 325 mg Documented by: Fluticasone Propionate (Flonase Nasal [place]) 1 spray NASAL BID [facility] Last Admin: 01/12/19 11:47 Dose: 1 spray Documented by: Furosemide (Lasix) 40 mg IV BIDLX [facility] Last Admin: 01/12/19 09:29 Dose: 40 mg Documented by: Glucagon () 1 mg IM .X1 PRN PRN Reason: Hypoglycemia Insulin Glargine (Lantus (Bk)) 50 units SC QHS [facility] Last Admin: 01/11/19 21:48 Dose: 50 u Documented by: Insulin Human Lispro (Humalog Kwikpen ([facility])) 0 unit SC ACHS [facility]; Protocol Last Admin: 01/12/19 11:47 Dose: 4 u Documented by: Metolazone (Zaroxolyn) 2.5 mg PO DAILY [facility] Last Admin: 01/12/19 09:30 Dose: 2.5 mg Documented by: Metoprolol Tartrate (Lopressor (Beta Jeffery)) 75 mg PO BID [facility] Last Admin: 01/12/19 09:29 Dose: 75 mg Documented by: Nutritional Formula (Lactose Free) (Glucerna Shake) 60 ml PO TIDCM [facility] Last Admin: 01/12/19 11:48 Dose: 60 ml Documented by: Oxycodone HCl (Oxyir) 5 mg PO Q6H PRN PRN PRN Reason: Pain Score 1-10/10 Last Admin: 01/11/19 18:02 Dose: 5 mg Documented by: Pantoprazole Sodium (Protonix) 20 mg PO DAILY [facility] Last Admin: 01/12/19 09:29 Dose: 20 mg Documented by: Potassium Chloride (K-Dur) 20 meq PO TIDCM [facility] Last Admin: 01/12/19 11:48 Dose: 20 meq Documented by: Promethazine HCl (Phenergan Tablet) 25 mg PO Q6H PRN PRN Reason: NAUSEA Last Admin: 01/11/19 03:00 Dose: 25 mg Documented by: Sodium Chloride () 10 - 40 ml IV UD PRN PRN Reason: SALINE FLUSH Last Admin: 01/11/19 18:06 Dose: 10 ml Documented by: Trazodone HCl (Desyrel) 25 mg PO QHS [facility] Last Admin: 01/11/19 21:47 Dose: 25 mg Documented by: Medical Necessity - Tobacco Use Smoking Status: Former smoker Assessment/Plan 1. Acute on chronic diastolic CHF-chest x-ray on admission with mild CHF. BNP 231. Continue IV Lasix. Strict I&O. Daily weight. 1500 cc fluid restriction. Continue home metolazone regimen. Follows with Dr. Xavier as outpatient. Echo January 2018 showed an EF of 66%, moderately severe aortic valve stenosis, RVSP 38 mmHg, moderate mitral stenosis. Repeat echocardiogram shows an EF of 60%, stage II diastolic dysfunction, no significant change to aortic stenosis. 2. 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 Follows with Dr. Dixon. Patient wearing BiPAP continuously and refuses to wean off of BiPAP. Consult pulmonary medicine. Patient had BiPAP prescribed in the past however was noncompliant. 3. Severe aortic stenosis-patient has been evaluated for valve replacement, told she is not a candidate. 4. Chronic kidney disease stage III-stable, at baseline. 5. Hypertension-stable, continue home metoprolol regimen. 6. Hyperlipidemia-continue statin. 7. History of CVA-continue aspirin, statin. 8. Type 2 diabetes mellitus-continue home insulin regimen. Accu-Cheks ACHS/SSI. 9. Morbid obesity-encouraged diet lifestyle modifications. 10. Anxiety/depression-continue home SSRI, trazodone regimen. 11. History of GI bleed secondary to AVM/chronic anemia/iron deficiency anemia- stable, continue iron supplementation. Trend CBC. DVT prophylaxis-SCDs This patient was seen by SHOLA Garcia under the supervision of Dr. Montana. <David Montana E - Last Filed: 01/12/19 12:58> - Physical Exam Vitals/I&O's: Vital Signs Temp Pulse Resp BP Pulse Ox 98.0 F 100 20 H 105/73 97 01/12/19 10:50 01/12/19 10:50 01/12/19 10:50 01/12/19 10:50 01/12/19 10:50 Oxygen Flow Rate (L/min) 4 Oxygen Delivery Method Bi-pap Weight: 281 lb 8.485 oz Body Mass Index (BMI) 50.1 Finger Stick Blood Glucose 478 Intake and Output for Last 24 Hours 01/10/19 01/11/19 01/12/19 23:59 23:59 23:59 Intake Total 1560 / 1560 2019 / 2019 240 / 240 Output Total 1875 / 1875 1525 / 1525 350 / 350 Balance -315 / -315 495 / 495 -110 / -110 Laboratory Results 01/09/19 17:13: Diff Path Review Reviewed 01/10/19 09:45: Diff Path Review Reviewed 01/11/19 16:04: POC Glucose 235 H 01/11/19 21:46: POC Glucose 220 H 01/12/19 05:15: WBC 14.1 H, RBC 3.00 L, Hgb 8.1 L, Hct 29.1 L, MCV 97.0, MCH 27.0, MCHC 27.8 L, RDW Std Deviation 67.7 H, RDW [place] 19.2 H, Plt Count 438, MPV 9.5, Differential Comment SCANNED 01/12/19 05:15: Sodium 138, Potassium 3.5, Chloride 88 L, Carbon Dioxide 45.0 H, Anion Gap 5, BUN 67 H, Creatinine 1.14 H, Estim Creat Clear Calc 37.98, Est GFR (MDRD) Af Amer 61, Est GFR (MDRD) Non-Af 50 L, BUN/Creatinine Ratio 58.8 H, Glucose 149 H, Calcium 9.0 01/12/19 06:32: POC Glucose 142 H 01/12/19 11:45: POC Glucose 243 H Current Medications Albuterol/Ipratropium (Duoneb) 3 ml INHALATION Q6HWA.RT [facility] Last Admin: 01/12/19 07:08 Dose: 3 ml Documented by: Atorvastatin Calcium (Lipitor) 10 mg PO QHS [facility] Last Admin: 01/11/19 21:48 Dose: 10 mg Documented by: Budesonide (Pulmicort Aerosol) 0.5 mg INHALATION Q12H.RT [facility] Last Admin: 01/12/19 07:14 Dose: 0.5 mg Documented by: Calamine/Phenol (Calmoseptine Ointment) 1 applic TOPICAL BID [facility]; Protocol Last Admin: 01/12/19 09:28 Dose: 1 applicatio Documented by: Dexamethasone (Decadron) 2 mg PO DAILYCM [facility] Last Admin: 01/12/19 09:30 Dose: 2 mg Documented by: Dextrose (D50w Syringe) 0 gm IV X1 PRN; Protocol PRN Reason: Hypoglycemia Escitalopram Oxalate (Lexapro) 10 mg PO DAILY [facility] Last Admin: 01/12/19 09:29 Dose: 10 mg Documented by: Ferrous Sulfate (Ferrous Sulfate) [facility] Last Admin: 01/12/19 09:28 Dose: 325 mg Documented by: Fluticasone Propionate (Flonase Nasal [place]) 1 spray NASAL BID [facility] Last Admin: 01/12/19 11:47 Dose: 1 spray Documented by: Furosemide (Lasix) 40 mg IV TID [facility] Glucagon () 1 mg IM .X1 PRN PRN Reason: Hypoglycemia Insulin Glargine (Lantus ([facility])) 50 units SC QHS [facility] Last Admin: 01/11/19 21:48 Dose: 50 u Documented by: Insulin Human Lispro (Humalog Kwikpen ([facility])) 0 unit SC ACHS [facility]; Protocol Last Admin: 01/12/19 11:47 Dose: 4 u Documented by: Metolazone (Zaroxolyn) 2.5 mg PO DAILY [facility] Last Admin: 01/12/19 09:30 Dose: 2.5 mg Documented by: Metoprolol Tartrate (Lopressor (Beta Jeff[place])) 75 mg PO BID [facility] Last Admin: 01/12/19 09:29 Dose: 75 mg Documented by: Nutritional Formula (Lactose Free) (Glucerna Shake) 60 ml PO TIDCM [facility] Last Admin: 01/12/19 11:48 Dose: 60 ml Documented by: Oxycodone HCl (Oxyir) 5 mg PO Q6H PRN PRN PRN Reason: Pain Score 1-10/10 Last Admin: 01/11/19 18:02 Dose: 5 mg Documented by: Pantoprazole Sodium (Protonix) 20 mg PO DAILY [facility] Last Admin: 01/12/19 09:29 Dose: 20 mg Documented by: Potassium Chloride (K-Dur) 20 meq PO TIDCM [facility] Last Admin: 01/12/19 11:48 Dose: 20 meq Documented by: Promethazine HCl (Phenergan Tablet) 25 mg PO Q6H PRN PRN Reason: NAUSEA Last Admin: 01/11/19 03:00 Dose: 25 mg Documented by: Sodium Chloride () 10 - 40 ml IV UD PRN PRN Reason: SALINE FLUSH Last Admin: 01/11/19 18:06 Dose: 10 ml Documented by: Trazodone HCl (Desyrel) 25 mg PO QHS [facility] Last Admin: 01/11/19 21:47 Dose: 25 mg Documented by: Assessment/Plan Hospitalist note: I am seeing this patient in conjunction with Alejandra Mendoza. I independently seen and examined the patient. Progress note above, laboratory data and imaging studies reviewed and I agree with the above treatment plan. Patient reported no improvement of her symptoms, still complained of shortness of breath at rest. Patient wanted to keep BiPAP on and she is refusing to take it off. She denies chest pain, fever or chills. - Physical Exam General: Alert, Oriented x3, Cooperative, minimal shortness of breath. HEENT: Atraumatic, PERRLA, EOMI. Neck: Supple, No JVD, Negative Carotid Bruits, Trachea Midline, Thyroid Normal. Lungs: Decreased breath sounds bilateral, otherwise clear, No rhonchi, No wheeze, No rales. Cardiovascular: Regular rate, Regular Rhythm, Normal S1, Normal S2, PMI Normal. Abdomen: Bowel Sounds Present, Soft, Non Tender, Non-Distended, No Hepato- splenomegaly, obese. Extremities: No clubbing, No cyanosis,+ edema Skin: No rashes, No breakdown Neurological: Cranial nerves are intact, neuro grossly intact Assessment and plan: #1 acute on chronic diastolic CHF: She is on IV Lasix, Zaroxolyn, metoprolol. She does have a good urine output. Symptoms not improving and she remains on BiPAP and she is refusing to take it off although she has been not very short of breath. 2D echocardiogram revealed ejection fraction 60%, stage II diastolic dysfunction, moderately severe aortic stenosis. Plan to continue IV diuresis, repeat BMP tomorrow morning. #2 chronic combined hypoxic and hypercapnic respiratory failure: Remained stable on 6 L of oxygen which is her baseline at home. It is multifactorial secondary to CHF in addition to COPD and pulmonary fibrosis. Plan to continue same treatment, bronchodilators, IV diuresis, consult pulmonology today. #3 other chronic medical problems: Stable, continue current medications as above. This note was generated with [employer] dictation software. It may contain incorrect words, spelling, and punctuation that were not noted in checking the note before signing. Code Visit Inpatient E&M: 03151 Subs Hosp L2
--- NOTE | 2019-01-12 13:11 | CASEMGMT ---
Addendum entered by Akua Allison 01/12/19 14:31: Return call from [facility] and Rema states pt has not paid to reserve room and that a bed will be available for pt possbibly on Saturday. Rema is uncertain if they can accept trilogy but is checking on it and will let SW know when she confirms. MICHAEL Solo Addendum entered by Akua Allison 01/12/19 13:42: Met with pt and spouse and after speaking with spouse, pt is agreeable to return to [facility] upon d/c. Clinical update faxed to [facility]. Plan: Return to [facility] when medically ready. MICHAEL Solo Original Note: Social Work Pt is currently residing at [facility]. SW reviewed chart and pt refused PT/OT on this date. Met with pt to discuss d/c plans and pt confirms she has been at [facility] but she is planning to return home from [facility]. SW inquired about ability to care for self as she did not do therapy today. Pt stating she cannot get around well at all but her will take care of her at home. With pt permission, phone call placed to pt who states he is not able to care for pt at home. Pt feels pt needs to return to [facility] and he will be in shortly to talk to pt and let her know he cannot physically provide needed care. left with Rema at [facility] to see if they can accept BIpap or Trilogy machines. Will await return call from facility and visit from pt spouse. Plan: Return to [facility] vs. home MICHAEL Solo
--- NOTE | 2019-01-12 13:34 | PCM.CONS.PUL ---
Problem List (1) Tobacco dependence in remission Status: Chronic (2) Anxiety Status: Chronic (3) CAD in [place] artery Status: Chronic (4) Type 2 diabetes mellitus Status: Chronic Qualifiers: Diabetes mellitus fpc insulin use: with fpc use Diabetes mellitus complication status: with other specified complication Qualified Code(s): E11.69 - Type 2 diabetes mellitus with other specified complication; Z79.4 - USP (current) use of insulin (5) Nonrheumatic aortic (valve) stenosis Status: Chronic (6) Essential hypertension Status: Chronic (7) Depression Status: Chronic Qualifiers: Depression Type: unspecified Qualified Code(s): F32.9 - Major depressive disorder, single episode, unspecified (8) Morbid obesity Status: Chronic (9) CKD stage 3 secondary to diabetes Status: Chronic (10) Chronic diastolic (congestive) heart failure Status: Chronic (11) Carotid artery stenosis Status: Chronic Qualifiers: Laterality: unspecified laterality Qualified Code(s): I65.29 - Occlusion and stenosis of unspecified carotid artery (12) Chronic hypoxemic respiratory failure Status: Chronic (13) Pulmonary fibrosis Status: Chronic (14) Stage 3 severe COPD by GOLD classification Status: Chronic (15) Pulmonary hypertension Status: Chronic Comment: With PA pressures 55 by cardiac catheterization Reason for Consult Date of Consultation: 01/12/19 Reason for Consultation: Acute on chronic respiratory failure History of Present Illness: The patient is a 68 year old F, with past medical history listed below, who presented to [facility] on 01/09/2019 secondary to palpitations and progressive shortness of breath. Patient did not report any fevers or chills at that time. Patient did have a blood transfusion and acute rehab facility earlier in the day. Patient was placed on BiPAP therapy with subjective improvement. Patient is well-known to me as an outpatient and is on 4 L nasal cannula in the past. Patient has had BiPAP in the past, but this was discontinued secondary to noncompliance. Patient has had multiple similar type of presentations over the last year. Patient was admitted to the floor and placed on diuretic therapy. Patient reported significant improvement with the use of BiPAP therapy. Unfortunately, patient's I's and O's have been inaccurate secondary to incontinence. Patient reports some improvement over the course of the hospitalization when BiPAP is in place, but is currently refusing to discontinue BiPAP therapy. For this reason, a pulmonary consult was obtained. Patient has had multiple similar type of presentations over the last year. Patient has been evaluated at the [facility] for aortic stenosis, but was deemed a poor surgical candidate. Patient has been living in a senior care secondary to an inability to care for herself following previous hospitalizations. Patient has noted significant increase in edema of the right hand and bilateral lower extremities. Patient reports she has been compliant with her diuretic therapy recently. Patient does have a history of obstructive sleep apnea. Patient has been placed on BiPAP in the past, but this was discontinued secondary to noncompliance. Patient is now reporting that she would be willing to wear the mask and has proven it by wearing it throughout the hospitalization. Patient denies any recent dysuria, chest trauma, fever, chills or change in cough. Patient reports she is significantly worse in her dyspnea with discontinuation of BiPAP therapy. Patient states I race to eat so that I can get back on the BiPAP. Patient does admit that she has significant anxiety associated with being off of BiPAP therapy. Review of systems otherwise negative from a constitutional, HEENT, respiratory, cardiovascular, GI, genitourinary, musculoskeletal, skin, neurologic, psychiatric and hematologic system unless stated above. Past Medical History Past Medical History (Chronic Problems): Chronic Problems (Last Updated 01/12/19 @ 12:51 by David Montana MD) Tobacco dependence in remission (Chronic) Anxiety (Chronic) CAD in [place] artery (Chronic) Type 2 diabetes mellitus (Chronic) Nonrheumatic aortic (valve) stenosis (Chronic) Essential hypertension (Chronic) Depression (Chronic) Morbid obesity (Chronic) CKD stage 3 secondary to diabetes (Chronic) Chronic diastolic (congestive) heart failure (Chronic) Anemia (Chronic) Carotid artery stenosis (Chronic) Chronic hypoxemic respiratory failure (Chronic) Pulmonary fibrosis (Chronic) Stage 3 severe COPD by GOLD classification (Chronic) Pulmonary hypertension (Chronic) With PA pressures 55 by cardiac catheterization 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) Medical History: Medical History (Last Updated 01/12/19 @ 12:51 by David Montana MD) Type 2 diabetes mellitus (Chronic) E11.9 Nonrheumatic aortic (valve) stenosis (Chronic) I35.0 Essential hypertension (Chronic) I10 Depression (Chronic) F32.9 Morbid obesity (Chronic) E66.01 CKD stage 3 secondary to diabetes (Chronic) E11.22, N18.3 Chronic diastolic (congestive) heart failure (Chronic) I50.32 Anemia (Chronic) D64.9 Carotid artery stenosis (Chronic) I65.29 Chronic hypoxemic respiratory failure (Chronic) J96.11 Pulmonary fibrosis (Chronic) J84.10 Stage 3 severe COPD by GOLD classification (Chronic) J44.9 Pulmonary hypertension (Chronic) With PA pressures 55 by cardiac catheterization 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) Q27.33 CVA (cerebral vascular accident) (Inactive) I63.9 Allergies No Known Allergies Allergy (Verified 01/09/19 15:56) Home Medications: Ambulatory Orders Medication Instructions Recorded Simvastatin [Zocor] 20 mg PO QHS 01/15/14 Escitalopram Oxalate [Lexapro] 10 mg PO DAILY 06/29/15 Ipratropium/Albuterol Sulfate 3 ml INHALATION TID 04/01/18 [Duoneb] metolazone 2.5 mg tablet 2.5 mg PO DAILY 07/03/18 omeprazole magnesium 20 mg 20 mg PO DAILY 09/08/18 tablet,delayed release promethazine 25 mg tablet 25 mg PO Q6H PRN 09/08/18 potassium chloride ER 20 mEq 20 meq PO TID 90 Days #180 tab 09/17/18 tablet,extended release(part/cryst) Oxycodone [Oxyir] 5 mg PO Q6H PRN PRN 12/13/18 Ferrous Sulfate 325 mg PO BIDCM 12/16/18 Furosemide [Lasix] 40 mg PO BIDLX 30 Days #60 tab 12/18/18 Cephalexin [Keflex] 500 mg PO Q8H 01/09/19 Dexamethasone 2 mg PO DAILY 01/09/19 Dulaglutide [Trulicity] 0.75 mg SQ TU@1600 01/09/19 Fluticasone/Vilanterol [Breo 1 puff INHALATION DAILY 01/09/19 Ellipta Inhaler] Insulin Glargine,Hum.rec.anlog 50 unit SQ QHS 01/09/19 [Basaglar Kwikpen U-100] Insulin Lispro [Humalog KwikPen] 16 unit SQ TIDCM 01/09/19 Insulin Lispro [Humalog KwikPen] See Protocol SQ TIDCM 01/09/19 Metoprolol Tartrate 75 mg PO BID 01/09/19 Trazodone HCl 25 mg PO QHS 01/09/19 Surgical History: Surgical History (Last Updated 01/12/19 @ 09:42 by David Montana MD) History of hernia repair Z98.890, Z87.19 History of hysterectomy Z90.710 Surgical History: herniorrhaphy, hysterectomy Psychiatric History: Anxiety, Depression 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 Agree with formal interpretation. Patient's previous weights early in the year range between 111 and 120 kg. - Physical Exam Vitals/I&O's: Vital Signs Temp Pulse Resp BP Pulse Ox 36.7 C 100 30 H 105/73 93 01/12/19 10:50 01/12/19 10:50 01/12/19 12:20 01/12/19 10:50 01/12/19 12:20 Oxygen Flow Rate (L/min) 4 Oxygen Delivery Method Bi-pap Weight: 127.7 kg Body Mass Index (BMI) 50.1 Finger Stick Blood Glucose 478 Intake and Output for Last 24 Hours 01/10/19 01/11/19 01/12/19 23:59 23:59 23:59 Intake Total 1560 / 1560 2019 / 2019 840 / 840 Output Total 1875 / 1875 1525 / 1525 800 / 800 Balance -315 / -315 495 / 495 40 / 40 General: Alert, Oriented x3, Cooperative, - - Mild conversational dyspnea on discontinuation of BiPAP. Morbidly obese. Appears older than stated age. HEENT: Atraumatic, PERRLA, EOMI, Normocephalic, - - Slight scleral injection Oral: Moist Mucosa, No Gingival or Mucosal Lesions/ Ulcerations Neck: Supple, No Nodes, Trachea Midline, JVD, Right Lungs: No rhonchi, Diminished, Rales, Wheezes - At the end exhalation Cardiovascular: Normal S1, Normal S2, Murmur - Grade 3 out of 6 systolic ejection murmur at the right sternal border, No rub noted, No Gallop, Tachycardic Abdomen: Bowel Sounds Present, Soft, Non Tender, Non-Distended, Obese Extremities: No cyanosis, Capillary Refill Less than 3 Seconds, Clubbing, Edema Skin: - - Venous stasis changes lower extremities Musculoskeletal: No Tenderness to Palpation of Joints or Extremities, No Muscle Wasting Lymphatic: No Cervical, Supraclavicular, or Inguinal Adenopathy Neurological: Cranial nerves II-XII grossly intact, Neuro grossly intact, Motor Exam 5/5 strength throughout Psych/Mental Status: Anxious, Restless Laboratory Results 01/09/19 17:13: Diff Path Review Reviewed 01/10/19 09:45: Diff Path Review Reviewed 01/11/19 16:04: POC Glucose 235 H 01/11/19 21:46: POC Glucose 220 H 01/12/19 05:15: WBC 14.1 H, RBC 3.00 L, Hgb 8.1 L, Hct 29.1 L, MCV 97.0, MCH 27.0, MCHC 27.8 L, RDW Std Deviation 67.7 H, RDW [place] 19.2 H, Plt Count 438, MPV 9.5, Differential Comment SCANNED 01/12/19 05:15: Sodium 138, Potassium 3.5, Chloride 88 L, Carbon Dioxide 45.0 H, Anion Gap 5, BUN 67 H, Creatinine 1.14 H, Estim Creat Clear Calc 37.98, Est GFR (MDRD) Af Amer 61, Est GFR (MDRD) Non-Af 50 L, BUN/Creatinine Ratio 58.8 H, Glucose 149 H, Calcium 9.0 01/12/19 06:32: POC Glucose 142 H 01/12/19 11:45: POC Glucose 243 H Current Medications Albuterol/Ipratropium (Duoneb) 3 ml INHALATION Q6HWA.RT [facility] Last Admin: 01/12/19 07:08 Dose: 3 ml Documented by: Atorvastatin Calcium (Lipitor) 10 mg PO QHS [facility] Last Admin: 01/11/19 21:48 Dose: 10 mg Documented by: Budesonide (Pulmicort Aerosol) 0.5 mg INHALATION Q12H.RT [facility] Last Admin: 01/12/19 07:14 Dose: 0.5 mg Documented by: Calamine/Phenol (Calmoseptine Ointment) 1 applic TOPICAL BID [facility]; Protocol Last Admin: 01/12/19 09:28 Dose: 1 applicatio Documented by: [facility] Admin: 01/12/19 09:30 Dose: 2 mg Documented by: Dextrose (D50w Syringe) 0 gm IV X1 PRN; Protocol PRN Reason: Hypoglycemia Escitalopram Oxalate (Lexapro) 10 mg PO DAILY [facility] Last Admin: 01/12/19 09:29 Dose: 10 mg Documented by: Ferrous Sulfate ([facility] Sulfate) [facility] Last Admin: 01/12/19 09:28 Dose: 325 mg Documented by: Fluticasone Propionate (Flonase Nasal [place]) 1 spray NASAL BID [facility] Last Admin: 01/12/19 11:47 Dose: 1 spray Documented by: Furosemide (Lasix) 40 mg IV TID [facility] Glucagon () 1 mg IM .X1 PRN PRN Reason: Hypoglycemia Insulin Glargine (Lantus (Bkc)) 50 units SC QHS [facility] Last Admin: 01/11/19 21:48 Dose: 50 u Documented by: Insulin Human Lispro (Humalog Kwikpen (Bkc)) 0 unit SC ACHS [facility]; Protocol Last Admin: 01/12/19 11:47 Dose: 4 u Documented by: Metolazone (Zaroxolyn) 2.5 mg PO DAILY [facility] Last Admin: 01/12/19 09:30 Dose: 2.5 mg Documented by: Metoprolol Tartrate (Lopressor (Beta Jeff[place])) 75 mg PO BID [facility] Last Admin: 01/12/19 09:29 Dose: 75 mg Documented by: Nutritional Formula (Lactose Free) (Glucerna Shake) 60 ml PO TIDCM [facility] Last Admin: 01/12/19 11:48 Dose: 60 ml Documented by: Oxycodone HCl (Oxyir) 5 mg PO Q6H PRN PRN PRN Reason: Pain Score 1-10/10 Last Admin: 01/11/19 18:02 Dose: 5 mg Documented by: Pantoprazole Sodium (Protonix) 20 mg PO DAILY [facility] Last Admin: 01/12/19 09:29 Dose: 20 mg Documented by: Potassium Chloride (K-Dur) 20 meq PO TIDCM [facility] Last Admin: 01/12/19 11:48 Dose: 20 meq Documented by: Promethazine HCl (Phenergan Tablet) 25 mg PO Q6H PRN PRN Reason: NAUSEA Last Admin: 01/11/19 03:00 Dose: 25 mg Documented by: Sodium Chloride () 10 - 40 ml IV UD PRN PRN Reason: SALINE FLUSH Last Admin: 01/11/19 18:06 Dose: 10 ml Documented by: Trazodone HCl (Desyrel) 25 mg PO QHS [facility] Last Admin: 01/11/19 21:47 Dose: 25 mg Documented by: Assessment/Plan RECOMMENDATIONS: 1. Increased diuretic therapy 2. BiPAP breaks as tolerated 3. Consider evaluation for noninvasive ventilator 4. May need to complete an ABG on 4 L/min to document CO2 retention 5. Could be evaluated by [facility] as an outpatient for possible TAVR IMPRESSIONS: 1. Acute on chronic combined respiratory failure secondary to acute on chronic diastolic congestive heart failure Patient with multiple complicating factors including acute on chronic diastolic congestive heart failure, aortic stenosis in the setting of COPD. Patient has been highly variable on BiPAP compliance in the past, but has been relatively dependent while in the hospital. Patient's baseline weight appears to be approximately 120 kg. This would suggest the patient has 7 to 10 kg of water weight. Would recommend aggressive diuresis and continue to monitor. 2. Acute on chronic blood loss anemia Patient does have a history of GI AVMs in the past. Patient's hemoglobin is currently stable and acceptable. Transfuse to keep hemoglobin greater than 8 given cardiac condition. Patient is on a PPI at appropriate dosing. Doubt need for emergent endoscopy for evaluation. Cannot exclude destruction of blood cells secondary to aortic stenosis as a secondary etiology given patient's lack of melena. 3. Aortic stenosis Exact morphology is unclear at this time. Some testing suggest severe disease and others suggest that intervention is not required. Patient has had multiple admissions over the last year secondary to fluid overload requiring diuresis of 10-12 L of fluid. Patient would benefit from outpatient evaluation to see if surgical intervention would be appropriate. If patient does not qualify for valve replacement, long-term prognosis is extremely guarded. 4. Morbid obesity/type 2 diabetes mellitus/hypertension/advanced age Complicates care, management, recovery and prognosis. Likely okay to continue with baseline medications. Patient with variable p.o. intake. Patient is requesting discharge home, but demands would be relatively high and would necessitate significant assistance would be required. Code Visit Inpatient E&M: 21079 Init Hosp L3
--- NOTE | 2019-01-12 13:40 | CPS ---
Patient taken off BiPAP for 2 minutes to eat ice chips. Sats maintained in 90's on 6lpm. Placed back on BiPAP.
--- NOTE | 2019-01-12 14:41 | CPS ---
BiPAP on standby per RN.
[2019-01-12] MEDS: oxyCODONE 5 MG Tablet PO (15:06)
--- NOTE | 2019-01-12 16:10 | CPS ---
Patient off BiPAP at this time for a short break, placed on 6lpm.
--- NOTE | 2019-01-12 16:20 | CPS ---
Patient placed back on BiPAP.
[2019-01-12 17:11] LABS: Bedside Glucose 350 mg/dL (70-110)
[2019-01-12] MEDS: Atorvastatin Calcium 10 MG Tablet PO (21:36)
[2019-01-12] MEDS: traZODone 50 MG Tablet 25 MG PO (21:36)
[2019-01-12 22:25] LABS: Bedside Glucose 269 mg/dL (70-110)
[2019-01-13] VITALS (18 sets, daily range): BP systolic 110–137; BP diastolic 58–86; PULSE 73–101; RESP 12–28; TEMP 36.7–37.1; O2SAT 92–96
--- NOTE | 2019-01-13 00:53 | NURSING ---
Educated pt multiple times on fluid restriction. Pt continues to ask for fluid, and will state she ''understands the restriction, but wants the fluids'' Etelvina, RN
[2019-01-13 06:02] LABS: Hematocrit 28.6 % (37-47); Hemoglobin 8.2 g/dL (12.0-15.0); Mean Corp Hgb Conc 28.7 g/dL (32-36); Mean Corpuscular Hgb 26.8 pg (27.0-32.0); Mean Corpuscular Volume 93.5 fL (81-99); Mean Platelet Vol. 9.4 fl (6.2-12.0); Platelet Count 352 K/mm3 (150-450); RBC Distribution Width CV 18.6 % (11.6-14.6); Red Blood Count 3.06 M/mm3 (4.2-5.4); White Blood Count 14.9 K/mm3 (4.4-11.0)
[2019-01-13 06:18] LABS: Anion Gap 7 (5-15); BUN 69 mg/dL (7-18); BUN/Creat Ratio 61.1 RATIO (10-20); Calcium,Total 8.7 mg/dL (8.5-10.1); Chloride 87 mmol/L (98-107); Creatinine, Serum 1.13 mg/dL (0.55-1.02); EST Glomerular Filtration Rate 51 mL/min (>60); Est Glom Filt Rate - Afr Amer 61 mL/min (>60); Estimated Creatinine Clearance 38.32 ml/min; Glucose 208 mg/dL (74-106); Potassium 3.6 mmol/L (3.5-5.1); Sodium Level 134 mmol/L (136-145)
[2019-01-13] MEDS: Furosemide 40 MG/4 ML Vial IV ×3 (06:51→21:53)
[2019-01-13] MEDS: Ipratropium/Albuterol Sulfate 3 ML AMPUL.NEB INHALATION ×2 (07:02→13:15)
[2019-01-13 07:10] LABS: Bedside Glucose 222 mg/dL (70-110)
[2019-01-13] MEDS: Insulin Lispro 100 UNIT/ML INSULN.PEN SC ×4 (07:32→21:59)
[2019-01-13] MEDS: dexAMETHasone 4 MG Tablet 2 MG PO (08:52)
[2019-01-13] MEDS: Glucerna Shake 120 ML LIQUID 60 ML PO ×3 (08:53→17:08)
[2019-01-13] MEDS: Menthol/Lanolin/Calamine/Znox 113 GM Tube 1 APPLIC TOPICAL (08:53)
[2019-01-13] MEDS: Fluticasone 0.05% 1 SPRAY NASAL.SRY NASAL ×2 (08:53→21:51)
[2019-01-13] MEDS: Ferrous Sulfate 325 MG Tablet PO ×2 (08:53→17:07)
[2019-01-13] MEDS: Escitalopram Oxalate 10 MG Tablet PO (08:54)
[2019-01-13] MEDS: Metoprolol Tartrate 25 MG Tablet 75 MG PO ×2 (08:54→21:52)
[2019-01-13] MEDS: Pantoprazole Sodium 20 MG Tablet PO (08:54)
[2019-01-13] MEDS: oxyCODONE 5 MG Tablet PO ×2 (08:55→17:36)
[2019-01-13] MEDS: Metolazone 2.5 MG Tablet PO (08:55)
[2019-01-13 09:33] LABS: Magnesium 1.8 mg/dL (1.6-2.6)
--- NOTE | 2019-01-13 09:55 | PCM.PN.PUL ---
Subjective: Patient seen this morning and had not attempted a BiPAP break yet. Patient did have good diuresis overnight, but inputs and outputs are inaccurate secondary to incontinence. Patient's blood pressure has been maintaining. Patient reports no subjective change in overall condition. - Physical Exam Vitals/I&O's: Vital Signs Temp Pulse Resp BP Pulse Ox 36.8 C 95 28 H 113/59 L 96 01/13/19 03:30 01/13/19 08:54 01/13/19 07:02 01/13/19 03:30 01/13/19 07:02 Oxygen Flow Rate (L/min) 6 Oxygen Delivery Method Bi-pap Weight: 127.7 kg Body Mass Index (BMI) 50.1 Finger Stick Blood Glucose 478 Intake and Output for Last 24 Hours 01/11/19 01/12/19 01/13/19 23:59 23:59 23:59 Intake Total 2019 1530 / 1530 100 / 100 Output Total 1525 / 1525 1950 / 1950 200 / 200 Balance 495 / 495 -420 / -420 -100 / -100 General: Alert, Oriented x3, Cooperative, No apparent distress - While on BiPAP, - - Morbidly obese HEENT: Atraumatic, PERRLA, EOMI, Normocephalic, - - Scleral injection without icterus Oral: No Gingival or Mucosal Lesions/ Ulcerations, Dry Mucosa Neck: Supple, No Nodes, Trachea Midline, JVD, Right Lungs: No rhonchi, No wheeze, No rales, Diminished, - - Coarse breath sounds well on BiPAP Cardiovascular: Regular rate, Regular Rhythm, Normal S1, Normal S2, No rub noted, No Gallop Abdomen: Bowel Sounds Present, Soft, Non Tender, Non-Distended, Obese Extremities: No cyanosis, Capillary Refill Less than 3 Seconds, Edema Skin: - - No change compared to previous Musculoskeletal: No Tenderness to Palpation of Joints or Extremities Lymphatic: No Cervical, Supraclavicular, or Inguinal Adenopathy Neurological: Cranial nerves II-XII grossly intact, Neuro grossly intact, Motor Exam 5/5 strength throughout Psych/Mental Status: Normal Affect, Appropriate Laboratory Results 01/09/19 17:13: Diff Path Review Reviewed 01/10/19 09:45: Diff Path Review Reviewed 01/12/19 11:45: POC Glucose 243 H 01/12/19 16:58: POC Glucose 350 H 01/12/19 21:34: POC Glucose 269 H 01/13/19 05:32: WBC 14.9 H, RBC 3.06 L, Hgb 8.2 L, Hct 28.6 L, MCV 93.5, MCH 26.8 L, MCHC 28.7 L, RDW Std Deviation 63.0 H, RDW [place] 18.6 H, Plt Count 352, MPV 9.4 01/13/19 05:32: Sodium 134 L, Potassium 3.6, Chloride 87 L, Carbon Dioxide 40.0 H, Anion Gap 7, BUN 69 H, Creatinine 1.13 H, Estim Creat Clear Calc 38.32, Est GFR (MDRD) Af Amer 61, Est GFR (MDRD) Non-Af 51 L, BUN/Creatinine Ratio 61.1 H, Glucose 208 H, Calcium 8.7 01/13/19 05:32: Magnesium 1.8 01/13/19 06:49: POC Glucose 222 H Current Medications Albuterol/Ipratropium (Duoneb) 3 ml INHALATION Q6HWA.RT [facility] Last Admin: 01/13/19 07:02 Dose: 3 ml Documented by: Atorvastatin Calcium (Lipitor) 10 mg PO QHS [facility] Last Admin: 01/12/19 21:36 Dose: 10 mg Documented by: Budesonide (Pulmicort Aerosol) 0.5 mg INHALATION Q12H.RT [facility] Last Admin: 01/12/19 18:57 Dose: Not Given Documented by: Calamine/Phenol (Calmoseptine Ointment) 1 applic TOPICAL BID [facility]; Protocol Last Admin: 01/13/19 08:53 Dose: 1 applicatio Documented by: [facility]) [facility] Admin: 01/13/19 08:52 Dose: 2 mg Documented by: Dextrose (D50w Syringe) 0 gm IV X1 PRN; Protocol PRN Reason: Hypoglycemia Escitalopram Oxalate (Lexapro) 10 mg PO DAILY [facility] Last Admin: 01/13/19 08:54 Dose: 10 mg Documented by: Ferrous Sulfate (Ferrous Sulfate) [facility] Last Admin: 01/13/19 08:53 Dose: 325 mg Documented by: Fluticasone Propionate (Flonase Nasal [place]) 1 spray NASAL BID [facility] Last Admin: 01/13/19 08:53 Dose: 1 spray Documented by: Furosemide (Lasix) 40 mg IV TID [facility] Last Admin: 01/13/19 06:51 Dose: 40 mg Documented by: Glucagon () 1 mg IM .X1 PRN PRN Reason: Hypoglycemia Insulin Glargine (Lantus ([facility])) 50 units SC QHS [facility] Last Admin: 01/12/19 21:36 Dose: 50 u Documented by: Insulin Human Lispro (Humalog Kwikpen ([facility])) 0 unit SC ACHS [facility]; Protocol Last Admin: 01/13/19 07:32 Dose: 4 u Documented by: Metolazone (Zaroxolyn) 2.5 mg PO DAILY [facility] Last Admin: 01/13/19 08:55 Dose: 2.5 mg Documented by: Metoprolol Tartrate (Lopressor (Beta [place])) 75 mg PO BID [facility] Last Admin: 01/13/19 08:54 Dose: 75 mg Documented by: Nutritional Formula (Lactose Free) (Glucerna Shake) 60 ml PO TIDCM [facility] Last Admin: 01/13/19 08:53 Dose: 60 ml Documented by: Oxycodone HCl (Oxyir) 5 mg PO Q6H PRN PRN PRN Reason: Pain Score 1-10/10 Last Admin: 01/13/19 08:55 Dose: 5 mg Documented by: Pantoprazole Sodium (Protonix) 20 mg PO DAILY [facility] Last Admin: 01/13/19 08:54 Dose: 20 mg Documented by: Potassium Chloride (K-Dur) 20 meq PO TIDCM [facility] Last Admin: 01/13/19 08:53 Dose: 20 meq Documented by: Promethazine HCl (Phenergan Tablet) 25 mg PO Q6H PRN PRN Reason: NAUSEA Last Admin: 01/11/19 03:00 Dose: 25 mg Documented by: Sodium Chloride () 10 - 40 ml IV UD PRN PRN Reason: SALINE FLUSH Last Admin: 01/11/19 18:06 Dose: 10 ml Documented by: Trazodone HCl (Desyrel) 25 mg PO QHS [facility] Last Admin: 01/12/19 21:36 Dose: 25 mg Documented by: Medical Necessity - Tobacco Use Smoking Status: Former smoker Assessment/Plan RECOMMENDATIONS: 1. Continue increased diuretic therapy 2. BiPAP breaks as tolerated 3. Consider evaluation for noninvasive ventilator 4. May need to complete an ABG on 4 L/min to document CO2 retention 5. Could be re-evaluated by [facility] as an outpatient for possible TAVR IMPRESSIONS: 1. Acute on chronic combined respiratory failure secondary to acute on chronic diastolic congestive heart failure Patient with multiple complicating factors including acute on chronic diastolic congestive heart failure, aortic stenosis in the setting of COPD. Patient has been highly variable on BiPAP compliance in the past, but has been relatively dependent while in the hospital. Patient's baseline weight appears to be approximately 120 kg. This would suggest the patient has 7 to 10 kg of water weight. Would recommend aggressive diuresis and continue to monitor. Will need to watch renal function closely as patient's therapeutic window is very small 2. Acute on chronic blood loss anemia Patient does have a history of GI AVMs in the past. Patient's hemoglobin is currently stable and acceptable. Transfuse to keep hemoglobin greater than 8 given cardiac condition. Patient is on a PPI at appropriate dosing. Doubt need for emergent endoscopy for evaluation. Cannot exclude destruction of blood cells secondary to aortic stenosis as a secondary etiology given patient's lack of melena. 3. Aortic stenosis Exact morphology is unclear at this time. Some testing suggest severe disease and others suggest that intervention is not required. Patient has had multiple admissions over the last year secondary to fluid overload requiring diuresis of 10-12 L of fluid. Patient could benefit from outpatient evaluation to see if surgical intervention would be appropriate. If patient does not qualify for valve replacement, long-term prognosis is extremely guarded. 4. Morbid obesity/type 2 diabetes mellitus/hypertension/advanced age Complicates care, management, recovery and prognosis. Likely okay to continue with baseline medications. Patient with variable p.o. intake. Patient is requesting discharge home, but demands would be relatively high and would necessitate significant assistance would be required. Case management is aware and discussing with family Code Visit Inpatient E&M: [id number] [facility] Hosp L3
--- NOTE | 2019-01-13 10:10 | NURSING ---
pt requested staff to call . this RN called Gamaliel, he stated he is on the way.
--- NOTE | 2019-01-13 10:40 | CASEMGMT ---
ANTONIO spoke with patient and her per their request. They asked if patient was leaving today. ANTONIO told them that ANTONIO does not think it will be today. ANTONIO explained that [place] apparently did not hold her bed so a bed will be available tomorrow. ANTONIO told them ANTONIO is checking on this to be sure. ANTONIO called Rema and left her a voice mail requesting a return call. Chey BUSTILLOS
[2019-01-13 11:11] LABS: Bedside Glucose 317 mg/dL (70-110)
--- NOTE | 2019-01-13 14:50 | PN_ITS ---
<Alejandra Mendoza - Last Filed: 01/13/19 14:55> Subjective: Patient seen and examined. Continues to wear BiPAP and states she is only able to take it off for a few minutes. She does admit her anxiety plays a role in needing BiPAP. However she reports she continues to be short of breath. - Physical Exam Vitals/I&O's: Vital Signs Temp Pulse Resp BP Pulse Ox 98.1 F 80 20 H 129/86 H 94 01/13/19 14:18 01/13/19 14:18 01/13/19 14:18 01/13/19 14:18 01/13/19 14:18 Oxygen Flow Rate (L/min) 6 Oxygen Delivery Method Bi-pap Weight: 281 lb 8.485 oz Body Mass Index (BMI) 50.1 Finger Stick Blood Glucose 478 Intake and Output for Last 24 Hours 01/11/19 01/12/19 01/13/19 23:59 23:59 23:59 Intake Total 2019 1530 / 1530 580 / 580 Output Total 1525 / 1525 1950 / 1950 400 / 400 Balance 495 / 495 -420 / -420 180 / 180 General: Alert, Oriented x3, Cooperative HEENT: Atraumatic, PERRLA, EOMI, Normocephalic Neck: Supple, No JVD, Negative Carotid Bruits Lungs: Clear to auscultation, Diminished Cardiovascular: Regular rate, Regular Rhythm, Normal S1, Normal S2, Murmur Abdomen: Bowel Sounds Present, Soft, Non Tender, Non-Distended, Obese Extremities: No clubbing, No cyanosis, Capillary Refill Less than 3 Seconds, Edema - Bilateral lower extremities Skin: No rashes, No breakdown Musculoskeletal: No Tenderness to Palpation of Joints or Extremities Neurological: Cranial nerves II-XII grossly intact, Neuro grossly intact Psych/Mental Status: Normal Affect, Appropriate Laboratory Results 01/12/19 16:58: POC Glucose 350 H 01/12/19 21:34: POC Glucose 269 H 01/13/19 05:32: WBC 14.9 H, RBC 3.06 L, Hgb 8.2 L, Hct 28.6 L, MCV 93.5, MCH 26.8 L, MCHC 28.7 L, RDW Std Deviation 63.0 H, RDW [place] 18.6 H, Plt Count 352, MPV 9.4 10/29/19 05:32: Sodium 134 L, Potassium 3.6, Chloride 87 L, Carbon Dioxide 40.0 H, Anion Gap 7, BUN 69 H, Creatinine 1.13 H, Estim Creat Clear Calc 38.32, Est GFR (MDRD) Af Amer 61, Est GFR (MDRD) Non-Af 51 L, BUN/Creatinine Ratio 61.1 H, Glucose 208 H, Calcium 8.7 01/13/19 05:32: Magnesium 1.8 01/13/19 06:49: POC Glucose 222 H 01/13/19 11:00: POC Glucose 317 H Current Medications Albuterol/Ipratropium (Duoneb) 3 ml INHALATION Q6HWA.RT [facility] Last Admin: 01/13/19 13:15 Dose: 3 ml Documented by: Atorvastatin Calcium (Lipitor) 10 mg PO QHS [facility] Last Admin: 01/12/19 21:36 Dose: 10 mg Documented by: Budesonide (Pulmicort Aerosol) 0.5 mg INHALATION Q12H.RT [facility] Last Admin: 01/12/19 18:57 Dose: Not Given Documented by: Calamine/Phenol (Calmoseptine Ointment) 1 applic TOPICAL BID [facility]; Protocol Last Admin: 01/13/19 08:53 Dose: 1 applicatio Documented by: [facility] Admin: 01/13/19 08:52 Dose: 2 mg Documented by: Dextrose (D50w Syringe) 0 gm IV X1 PRN; Protocol PRN Reason: Hypoglycemia Escitalopram Oxalate (Lexapro) 10 mg PO DAILY [facility] Last Admin: 01/13/19 08:54 Dose: 10 mg Documented by: Ferrous Sulfate ([facility]ous Sulfate) [facility] Last Admin: 01/13/19 08:53 Dose: 325 mg Documented by: Fluticasone Propionate (Flonase Nasal [place]) 1 spray NASAL BID [facility] Last Admin: 01/13/19 08:53 Dose: 1 spray Documented by: Furosemide (Lasix) 40 mg IV TID [facility] Last Admin: 01/13/19 13:31 Dose: 40 mg Documented by: Glucagon () 1 mg IM .X1 PRN PRN Reason: Hypoglycemia Insulin Glargine (Lantus (Bkc)) 50 units SC QHS [facility] Last Admin: 01/12/19 21:36 Dose: 50 u Documented by: Insulin Human Lispro (Humalog Kwikpen (Bkc)) 0 unit SC ACHS [facility]; Protocol Last Admin: 01/13/19 11:02 Dose: 6 u Documented by: Metolazone (Zaroxolyn) 2.5 mg PO DAILY [facility] Last Admin: 01/13/19 08:55 Dose: 2.5 mg Documented by: Metoprolol Tartrate (Lopressor (Beta Jeffery)) 75 mg PO BID [facility] Last Admin: 01/13/19 08:54 Dose: 75 mg Documented by: Nutritional Formula (Lactose Free) (Glucerna Shake) 60 ml PO TIDCM [facility] Last Admin: 01/13/19 11:05 Dose: 60 ml Documented by: Oxycodone HCl (Oxyir) 5 mg PO Q6H PRN PRN PRN Reason: Pain Score 1-10/10 Last Admin: 01/13/19 08:55 Dose: 5 mg Documented by: Pantoprazole Sodium (Protonix) 20 mg PO DAILY [facility] Last Admin: 01/13/19 08:54 Dose: 20 mg Documented by: Potassium Chloride (K-Dur) 20 meq PO TIDCM [facility] Last Admin: 01/13/19 11:05 Dose: 20 meq Documented by: Promethazine HCl (Phenergan Tablet) 25 mg PO Q6H PRN PRN Reason: NAUSEA Last Admin: 01/11/19 03:00 Dose: 25 mg Documented by: Sodium Chloride () 10 - 40 ml IV UD PRN PRN Reason: SALINE FLUSH Last Admin: 01/11/19 18:06 Dose: 10 ml Documented by: Trazodone HCl (Desyrel) 25 mg PO QHS [facility] Last Admin: 01/12/19 21:36 Dose: 25 mg Documented by: Medical Necessity - Tobacco Use Smoking Status: Former smoker Assessment/Plan All Active Problems (Last Updated 01/14/19 @ 10:57 by SHOLA Garcia) Chronic diastolic (congestive) heart failure (Acute) 1. Acute on chronic diastolic CHF-chest x-ray on admission with mild CHF. BNP 231. Continue IV Lasix. Strict I&O. Daily weight. 1500 cc fluid restriction. Continue home metolazone regimen. Follows with Dr. Xavier as outpatient. Echo January 2018 showed an EF of 66%, moderately severe aortic valve stenosis, RVSP 38 mmHg, moderate mitral stenosis. Repeat echocardiogram shows an EF of 60%, stage II diastolic dysfunction, no significant change to aortic stenosis. 2. 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 Follows with Dr. Dixon. Patient wearing BiPAP continuously and refuses to wean off of BiPAP. Consult pulmonary medicine. Patient had BiPAP prescribed in the past however was noncompliant. 3. Severe aortic stenosis-patient has been evaluated for valve replacement, told she is not a candidate. 4. Chronic kidney disease stage III-stable, at baseline. 5. Hypertension-stable, continue home metoprolol regimen. 6. Hyperlipidemia-continue statin. 7. History of CVA-continue aspirin, statin. 8. Type 2 diabetes mellitus-continue home insulin regimen. Accu-Cheks ACHS/SSI. 9. Morbid obesity-encouraged diet lifestyle modifications. 10. Anxiety/depression-continue home SSRI, trazodone regimen. 11. History of GI bleed secondary to AVM/chronic anemia/iron deficiency anemia- stable, continue iron supplementation. Trend CBC. DVT prophylaxis-SCDs This patient was seen by SHOLA Garcia under the supervision of Dr. Montana. <David Montana E - Last Filed: 01/14/19 11:23> - Physical Exam Vitals/I&O's: Vital Signs Temp Pulse Resp BP Pulse Ox 98.1 F 80 20 H 129/86 H 94 01/13/19 14:18 01/13/19 14:18 01/13/19 14:18 01/13/19 14:18 01/13/19 14:18 Oxygen Flow Rate (L/min) 6 Oxygen Delivery Method Bi-pap Weight: 276 lb 10.882 oz Body Mass Index (BMI) 50.1 Finger Stick Blood Glucose 478 Intake and Output for Last 24 Hours 01/11/19 01/12/19 01/13/19 23:59 23:59 23:59 Intake Total 2019 1530 / 1530 580 / 580 Output Total 1525 / 1525 1950 / 1950 400 / 400 Balance 495 / 495 -420 / -420 180 / 180 Laboratory Results 01/12/19 16:58: POC Glucose 350 H 01/12/19 21:34: POC Glucose 269 H 01/13/19 05:32: WBC 14.9 H, RBC 3.06 L, Hgb 8.2 L, Hct 28.6 L, MCV 93.5, MCH 26.8 L, MCHC 28.7 L, RDW Std Deviation 63.0 H, RDW [place] 18.6 H, Plt Count 352, MPV 9.4 01/13/19 05:32: Sodium 134 L, Potassium 3.6, Chloride 87 L, Carbon Dioxide 40.0 H, Anion Gap 7, BUN 69 H, Creatinine 1.13 H, Estim Creat Clear Calc 38.32, Est GFR (MDRD) Af Amer 61, Est GFR (MDRD) Non-Af 51 L, BUN/Creatinine Ratio 61.1 H, Glucose 208 H, Calcium 8.7 01/13/19 05:32: Magnesium 1.8 01/13/19 06:49: POC Glucose 222 H 01/13/19 11:00: POC Glucose 317 H Current Medications Albuterol/Ipratropium (Duoneb) 3 ml INHALATION Q6HWA.RT [facility] Last Admin: 01/13/19 13:15 Dose: 3 ml Documented by: Atorvastatin Calcium (Lipitor) 10 mg PO QHS [facility] Last Admin: 01/12/19 21:36 Dose: 10 mg Documented by: Budesonide (Pulmicort Aerosol) 0.5 mg INHALATION Q12H.RT [facility] Last Admin: 01/12/19 18:57 Dose: Not Given Documented by: Calamine/Phenol (Calmoseptine Ointment) 1 applic TOPICAL BID [facility]; Protocol Last Admin: 01/13/19 08:53 Dose: 1 applicatio Documented by: [facility]) [facility] Last Admin: 01/13/19 08:52 Dose: 2 mg Documented by: Dextrose (D50w Syringe) 0 gm IV X1 PRN; Protocol PRN Reason: Hypoglycemia Escitalopram Oxalate (Lexapro) 10 mg PO DAILY [facility] Last Admin: 01/13/19 08:54 Dose: 10 mg Documented by: Ferrous Sulfate ([facility]errous Sulfate) [facility] Last Admin: 01/13/19 08:53 Dose: 325 mg Documented by: Fluticasone Propionate (Flonase Nasal [place]) 1 spray NASAL BID [facility] Last Admin: 01/13/19 08:53 Dose: 1 spray Documented by: Furosemide (Lasix) 40 mg IV TID [facility] Last Admin: 01/13/19 13:31 Dose: 40 mg Documented by: Glucagon () 1 mg IM .X1 PRN PRN Reason: Hypoglycemia Insulin Glargine (Lantus (Bk)) 50 units SC QHS [facility] Last Admin: 01/12/19 21:36 Dose: 50 u Documented by: Insulin Human Lispro (Humalog Kwikpen ([facility])) 0 unit SC ACHS [facility]; Protocol Last Admin: 01/13/19 11:02 Dose: 6 u Documented by: Metolazone (Zaroxolyn) 2.5 mg PO DAILY [facility] Last Admin: 01/13/19 08:55 Dose: 2.5 mg Documented by: Metoprolol Tartrate (Lopressor (Beta Jeffery)) 75 mg PO BID [facility] Last Admin: 01/13/19 08:54 Dose: 75 mg Documented by: Nutritional Formula (Lactose Free) (Glucerna Shake) 60 ml PO TIDCM [facility] Last Admin: 01/13/19 11:05 Dose: 60 ml Documented by: Oxycodone HCl (Oxyir) 5 mg PO Q6H PRN PRN PRN Reason: Pain Score 1-10/10 Last Admin: 01/13/19 08:55 Dose: 5 mg Documented by: Pantoprazole Sodium (Protonix) 20 mg PO DAILY [facility] Last Admin: 01/13/19 08:54 Dose: 20 mg Documented by: Potassium Chloride (K-Dur) 20 meq PO TIDCM [facility] Last Admin: 01/13/19 11:05 Dose: 20 meq Documented by: Promethazine HCl (Phenergan Tablet) 25 mg PO Q6H PRN PRN Reason: NAUSEA Last Admin: 01/11/19 03:00 Dose: 25 mg Documented by: Sodium Chloride () 10 - 40 ml IV UD PRN PRN Reason: SALINE FLUSH Last Admin: 01/11/19 18:06 Dose: 10 ml Documented by: Trazodone HCl (Desyrel) 25 mg PO QHS [facility] Last Admin: 01/12/19 21:36 Dose: 25 mg Documented by: Assessment/Plan Hospitalist note: I am seeing this patient in conjunction with Alejandra Mendoza. I independently seen and examined the patient. Progress note above reviewed and I agree with the above treatment plan. She remained on BiPAP and she was able to come off it only for few minutes. She has been having mild improvement. Apart being on BiPAP, other vital signs are stable. - Physical Exam General: Alert, Oriented x3, Cooperative, minimal shortness of breath. HEENT: Atraumatic, PERRLA, EOMI. Neck: Supple, No JVD, Negative Carotid Bruits, Trachea Midline, Thyroid Normal. Lungs: Decreased breath sounds bilateral, otherwise clear, No rhonchi, No wheeze, No rales. Cardiovascular: Regular rate, Regular Rhythm, Normal S1, Normal S2, PMI Normal. Abdomen: Bowel Sounds Present, Soft, Non Tender, Non-Distended, No Hepato- splenomegaly, obese. Extremities: No clubbing, No cyanosis,+ edema Skin: No rashes, No breakdown Neurological: Cranial nerves are intact, neuro grossly intact Assessment and plan: #1 acute on chronic diastolic CHF: Remained on IV Lasix, Zaroxolyn, metoprolol. She does have a good urine output. She has minimal improvement of her symptoms but she feels better rested. She is not able to take off BiPAP for a long time. 2D echocardiogram revealed ejection fraction 60%, stage II diastolic dysfunction, moderately severe aortic stenosis. Plan to continue IV diuresis, repeat BMP tomorrow morning. #2 chronic combined hypoxic and hypercapnic respiratory failure: Remained stable on 6 L of oxygen which is her baseline at home. It is multifactorial secondary to CHF in addition to COPD and pulmonary fibrosis. Plan to continue same treatment, bronchodilators, IV diuresis, appreciate pulmonary recommendations. Plan as above. #3 other chronic medical problems: Stable, continue current medications as above. This note was generated with [employer] dictation software. It may contain incorrect words, spelling, and punctuation that were not noted in checking the note before signing. Code Visit Inpatient E&M: 60239 Subs Hosp L2
--- NOTE | 2019-01-13 16:42 | CASEMGMT ---
ANTONIO called [facility] and she said they are not going to accept patient back to their facility. ANTONIO spoke with patient letting her know and at first she said she would go home. SW told her that her said he cannot care for her. ANTONIO told her we likely won't be able to get her a bi-pap for home. She agreed to go to [facility]. ANTONIO called [facility] with referral and also faxed information. ANTONIO spoke with patient letting her know in order to ever get home she is going to need to do therapy to get stronger. SW told her SW will let her know what [facility] tells ANTONIO. Plan: [facility] pending their acceptance. Chey AGUIRRE MSW
[2019-01-13 17:30] LABS: Bedside Glucose 398 mg/dL (70-110)
[2019-01-13] MEDS: traZODone 50 MG Tablet 25 MG PO (21:53)
[2019-01-13] MEDS: Atorvastatin Calcium 10 MG Tablet PO (21:53)
[2019-01-13 22:41] LABS: Bedside Glucose 368 mg/dL (70-110)
--- NOTE | 2019-01-13 22:54 | CPS ---
Pt.'s FiO2 increased from 35% - 40%; pt.'s SpO2 was < 90%
[2019-01-14] VITALS (15 sets, daily range): BP systolic 104–119; BP diastolic 51–80; PULSE 68–95; RESP 12–26; TEMP 36.4–37.1; O2SAT 93–99
--- NOTE | 2019-01-14 02:57 | CPS ---
BiPaP changes made in order to better compensate pt.'s respiratory status
[2019-01-14] MEDS: Furosemide 40 MG/4 ML Vial IV ×2 (05:56→12:42)
[2019-01-14] MEDS: 0.9% Saline Lock 10 ML Syringe IV (05:56)
[2019-01-14] MEDS: Insulin Lispro 100 UNIT/ML INSULN.PEN SC ×3 (06:43→16:49)
[2019-01-14 06:51] LABS: BUN 78 mg/dL (7-18); BUN/Creat Ratio 61.4 RATIO (10-20); Carbon Dioxide > 45.0 mmol/L (21.0-32.0); Chloride 85 mmol/L (98-107); Creatinine, Serum 1.27 mg/dL (0.55-1.02); EST Glomerular Filtration Rate 44 mL/min (>60); Est Glom Filt Rate - Afr Amer 53 mL/min (>60); Glucose 250 mg/dL (74-106); Potassium 4.3 mmol/L (3.5-5.1); Sodium Level 137 mmol/L (136-145)
[2019-01-14 06:51] LABS: Bedside Glucose 258 mg/dL (70-110)
[2019-01-14] MEDS: Ipratropium/Albuterol Sulfate 3 ML AMPUL.NEB INHALATION ×2 (07:07→13:17)
[2019-01-14] MEDS: Budesonide Respules 0.5 MG/2 ML AMPUL.NEB. INHALATION (07:07)
[2019-01-14] MEDS: dexAMETHasone 4 MG Tablet 2 MG PO (10:11)
[2019-01-14] MEDS: Ferrous Sulfate 325 MG Tablet PO ×2 (10:12→16:49)
[2019-01-14] MEDS: Fluticasone 0.05% 1 SPRAY NASAL.SRY NASAL (10:13)
[2019-01-14] MEDS: Menthol/Lanolin/Calamine/Znox 113 GM Tube 1 APPLIC TOPICAL (10:13)
[2019-01-14] MEDS: Glucerna Shake 120 ML LIQUID 60 ML PO (10:13)
[2019-01-14] MEDS: Pantoprazole Sodium 20 MG Tablet PO (10:14)
[2019-01-14] MEDS: Escitalopram Oxalate 10 MG Tablet PO (10:14)
[2019-01-14] MEDS: Metoprolol Tartrate 25 MG Tablet 75 MG PO (10:14)
[2019-01-14] MEDS: Metolazone 2.5 MG Tablet PO (10:14)
--- NOTE | 2019-01-14 10:35 | TREXTCA.CO_ITS ---
- Diet 01/09/19 20:04 Diet: Cardiac: Calorie-Controlled Food consistency:: Regular Liquid Consistency:: Regular/Thin How many daily calories?: 1800 calorie - Routine Orders/Code Status Enema Type: Fleetz Enema Frequency: Daily PRN Suppository Type: Dulcolax 10mg Suppository Frequency: Daily PRN O2 Liters per Minute: 4 O2 Frequency: Continuous Keep PO Greater than or Equal to (%): 90 Routine Lab Work: CBC, BMP, - - Q Week [facility]ound[facility]s) Right Medial Lower Leg Wound Type: Stasis Ulcer Dressing Change: AntiMicrobial (Aquacel AG, etc) Left Medial Ankle Wound Type: Stasis Ulcer Left Foot (distal) Wound Type: Stasis Ulcer Left Foot (proximal) Wound Type: Stasis Ulcer Coccyx Wound Type: Pressure Injury left dorsal foot Wound Type: chronic nonhealing wound Dressing Change: AntiMicrobial (Aquacel AG, etc) - Suggestions for Active Care Change Position every (hours): 2 Times a day to sit in chair: 3 - Therapies Physical Therapy: Eval and Treat Occupational Therapy: Eval and Treat - Problem/Diagnosis (1) Tobacco dependence in remission Status: Chronic Current Visit: No (2) Anxiety Status: Chronic Current Visit: No (3) CAD in [place] artery Status: Chronic Current Visit: No (4) Type 2 diabetes mellitus Status: Chronic Current Visit: No (5) Nonrheumatic aortic (valve) stenosis Status: Chronic Current Visit: No (6) Essential hypertension Status: Chronic Current Visit: No (7) Depression Status: Chronic Current Visit: No (8) Morbid obesity Status: Chronic Current Visit: No (9) CKD stage 3 secondary to diabetes Status: Chronic Current Visit: No (10) Chronic diastolic (congestive) heart failure Status: Acute Current Visit: Yes (11) Anemia Status: Chronic Current Visit: No (12) Carotid artery stenosis Status: Chronic Current Visit: No (13) Chronic hypoxemic respiratory failure Status: Chronic Current Visit: No (14) Pulmonary fibrosis Status: Chronic Current Visit: No (15) Stage 3 severe COPD by GOLD classification Status: Chronic Current Visit: No (16) Pulmonary hypertension Status: Chronic Comment: With PA pressures 55 by cardiac catheterization Current Visit: No (17) GI AVM (gastrointestinal arteriovenous vascular malformation) Status: Chronic Current Visit: No - Allergies/Procedures Done in Hospital Allergies/Adverse Reactions: Allergies No Known Allergies Allergy (Verified 01/09/19 15:56) Procedures: 2-D Echocardiogram - Type of Care/Length of Stay Estimated LOS: Convalescent Care Less Than 30 days Type of Care Needed: Skilled Rehab Potential: Fair Prognosis: Fair - Additional Orders/Day of Discharge Additional Orders: Continue BiPAP: IPAP- 18. EPAP/CPAP-10. BIPAP rate- 12. FIO2%-50. Patient to follow with pulmonary medicine at discharge-plan to get trilogy established for home use when ready for discharge from SNF. H&P will serve as current which was dated: 01/09/19 Day of Discharge: 01/14/19 - Dietary and Speech Recommendations Dietitian Recommendations/Changes: Continue cardiac, 1800 calorie controlled diet w/ fluid restriction. Continue Glucerna TID until PO at meals improves. - Follow Up Care Primary Care Physician: Vic Chen MD [Primary Care Provider] - Please follow up with your Primary Care Physician in: 1 Week Please Follow Up With: Rajesh Dixon MD - May see PHLEBOTOMY MANAGER When: 1 Week Please Follow Up With: Vic Xavier MD When: 1-2 Weeks, may see PHLEBOTOMY MANAGER/PA
--- NOTE | 2019-01-14 10:44 | NURSING ---
wound photo: right medial lower leg
--- NOTE | 2019-01-14 10:46 | NURSING ---
wound photo: left dorsal foot
--- NOTE | 2019-01-14 10:47 | CASEMGMT ---
ANTONIO spoke with Miriam from [facility] and they will take patient as long as she does not have any outstanding bills with [facility]. She is waiting on [facility] to return their phone call. ANTONIO spoke with patient and her letting them know this information. Plan: [facility] as long as there are no outstanding bills with [facility]. Chey BUSTILLOS
--- NOTE | 2019-01-14 10:57 | PCM.DC.SUM ---
<Alejandra Mendoza - Last Filed: 01/14/19 11:07> Discharge Date and Diagnosis Date of Admission: 01/09/19 Date of Discharge: 01/14/19 - Primary Discharge Diagnosis Active and Suspected Problems (Last Updated 01/12/19 @ 12:51 by David Montana MD) 1. Acute on chronic diastolic CHF 2. 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 Severe aortic stenosis 4. Chronic kidney disease stage III 5. Hypertension 6. Hyperlipidemia 7. History of CVA 8. Type 2 diabetes mellitus 9. Morbid obesity 10. Anxiety/depression 11. History of GI bleed secondary to AVM/chronic anemia/iron deficiency anemia - Secondary Discharge Diagnosis Chronic Problems (Last Updated 01/12/19 @ 12:51 by David Montana MD) Tobacco dependence in remission (Chronic) Anxiety (Chronic) CAD in [place] artery (Chronic) Type 2 diabetes mellitus (Chronic) Nonrheumatic aortic (valve) stenosis (Chronic) Essential hypertension (Chronic) Depression (Chronic) Morbid obesity (Chronic) CKD stage 3 secondary to diabetes (Chronic) Anemia (Chronic) Carotid artery stenosis (Chronic) Chronic hypoxemic respiratory failure (Chronic) Pulmonary fibrosis (Chronic) Stage 3 severe COPD by GOLD classification (Chronic) Pulmonary hypertension (Chronic) With PA pressures 55 by cardiac catheterization 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 Electronically Signed: Ron Krishna MD at 16:35 EDT Tel , Service support , Consultations 01/10/19 01:56 Consult: Onc/Wound/customer success associate Routine Comment: Wounds to BLE. Dr. Dixon- Pulmonary Medicine Operations: None Procedures: 2-D Echocardiogram Summary of Care Provided: The patient is a 68 year old F admitted 01/09/2019 due to shortness of breath. 1. Acute on chronic diastolic CHF-chest x-ray on admission with mild CHF. BNP 231. IV Lasix during admission, transition to oral Lasix 40 mg twice daily at discharge. Continue home metolazone regimen. Follows with Dr. Xavier as outpatient. Echo January 2018 showed an EF of 66%, moderately severe aortic valve stenosis, RVSP 38 mmHg, moderate mitral stenosis. Repeat echocardiogram shows an EF of 60%, stage II diastolic dysfunction, no significant change to aortic stenosis. Follow-up with cardiology in 1 to 2 weeks. 2. 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 Follows with Dr. Dixon. Patient wearing BiPAP continuously and refuses to wean off of BiPAP. Pulmonary medicine consulted. Patient had BiPAP prescribed in the past however was noncompliant. Plan for discharge with BiPAP, outpatient follow-up with pulmonary medicine to set up trilogy at home. Patient has failed to follow-up in the past, encouraged close follow-up at discharge. 3. Severe aortic stenosis-patient has been evaluated for valve replacement, told she is not a candidate. 4. Chronic kidney disease stage III-stable, at baseline. 5. Hypertension-stable, continue home metoprolol regimen. 6. Hyperlipidemia-continue statin. 7. History of CVA-continue aspirin, statin. 8. Type 2 diabetes mellitus-continue home insulin regimen. 9. Morbid obesity-encouraged diet lifestyle modifications. 10. Anxiety/depression-continue home SSRI, trazodone regimen. 11. History of GI bleed secondary to AVM/chronic anemia/iron deficiency anemia-stable, continue iron supplementation. General: Alert, Oriented x3, Cooperative HEENT: Atraumatic, PERRLA, EOMI, Normocephalic Neck: Supple, No JVD, Negative Carotid Bruits Lungs: Clear to auscultation, Diminished Cardiovascular: Regular rate, Regular Rhythm, Normal S1, Normal S2, Murmur Abdomen: Bowel Sounds Present, Soft, Non Tender, Non-Distended, Obese Extremities: No clubbing, No cyanosis, Capillary Refill Less than 3 Seconds, Edema - Bilateral lower extremities Skin: No rashes, No breakdown Musculoskeletal: No Tenderness to Palpation of Joints or Extremities Neurological: Cranial nerves II-XII grossly intact, Neuro grossly intact Psych/Mental Status: Normal Affect, Appropriate Patient seen and examined prior to discharge. Physical assessment as noted above. Patient is stable for discharge with follow up recommendations as noted above. This patient was seen by SHOLA Garcia under the supervision of Dr. Montana. - Physical Exam Vitals/I&O's: Vital Signs Temp Pulse Resp BP Pulse Ox 98.7 F 95 19 H 104/61 98 01/14/19 08:41 01/14/19 10:14 01/14/19 08:41 01/14/19 08:41 01/14/19 08:41 Oxygen Flow Rate (L/min) 4 Oxygen Delivery Method Bi-pap Weight: 276 lb 10.882 oz Body Mass Index (BMI) 50.1 Finger Stick Blood Glucose 478 Intake and Output for Last 24 Hours 01/12/19 01/13/19 01/14/19 23:59 23:59 23:59 Intake Total 1530 / 1530 1130 / 1130 240 / 240 Output Total 1950 / 1950 1250 / 1250 400 / 400 Balance -420 / -420 -120 / -120 -160 / -160 Laboratory Results 01/13/19 11:00: POC Glucose 317 H 01/13/19 17:05: POC Glucose 398 H 01/13/19 21:58: POC Glucose 368 H 01/14/19 05:40: Sodium 137, Potassium 4.3, Chloride 85 L, Carbon Dioxide > 45.0 H*, Anion Gap TNP, BUN 78 H, Creatinine 1.27 H, Estim Creat Clear Calc 34.10, Est GFR (MDRD) Af Amer 53 L, Est GFR (MDRD) Non-Af 44 L, BUN/Creatinine Ratio 61.4 H, Glucose 250 H, Calcium 9.0 01/14/19 06:43: POC Glucose 258 H Current Medications Albuterol/Ipratropium (Duoneb) 3 ml INHALATION Q6HWA.RT RAINER Last Admin: 01/14/19 07:07 Dose: 3 ml Documented by: Atorvastatin Calcium (Lipitor) 10 mg PO QHS RAINER Last Admin: 01/13/19 21:53 Dose: 10 mg Documented by: Budesonide (Pulmicort Aerosol) 0.5 mg INHALATION Q12H.RT [facility]IN[facility] Last Admin: 01/14/19 07:07 Dose: 0.5 mg Documented by: Calamine/Phenol (Calmoseptine Ointment) 1 applic TOPICAL BID RAINER; Protocol Last Admin: 01/14/19 10:13 Dose: 1 applicatio Documented by: Dexamethasone (Decadron) 2 mg PO DAILYCM [facility]IN[facility] Last Admin: 01/14/19 10:11 Dose: 2 mg Documented by: Dextrose (D50w Syringe) 0 gm IV X1 PRN; Protocol PRN Reason: Hypoglycemia Escitalopram Oxalate (Lexapro) 10 mg PO DAILY [facility] Last Admin: 01/14/19 10:14 Dose: 10 mg Documented by: [facility]ous [facility]) [facility] Last Admin: 01/14/19 10:12 Dose: 325 mg Documented by: Fluticasone Propionate (Flonase Nasal Galloway) 1 spray NASAL BID [facility] Last Admin: 01/14/19 10:13 Dose: 1 spray Documented by: Furosemide (Lasix) 40 mg IV TID [facility] Last Admin: 01/14/19 05:56 Dose: 40 mg Documented by: Glucagon () 1 mg IM .X1 PRN PRN Reason: Hypoglycemia Insulin Glargine (Lantus (Bk)) 50 units SC QHS [facility] Last Admin: 01/13/19 21:58 Dose: 50 u Documented by: Insulin Human Lispro (Humalog Kwikpen ([facility])) 0 unit SC [facility]; Protocol Last Admin: 01/14/19 06:43 Dose: 4 u Documented by: Metolazone (Zaroxolyn) 2.5 mg PO DAILY [facility] Last Admin: 01/14/19 10:14 Dose: 2.5 mg Documented by: Metoprolol Tartrate (Lopressor (Beta Jeffery)) 75 mg PO BID [facility] Last Admin: 01/14/19 10:14 Dose: 75 mg Documented by: Nutritional Formula (Lactose Free) (Glucerna Shake) 60 ml PO TIDCM [facility] Last Admin: 01/14/19 10:13 Dose: 60 ml Documented by: Oxycodone HCl (Oxyir) 5 mg PO Q6H PRN PRN PRN Reason: Pain Score 1-1010 Last Admin: 01/13/19 17:36 Dose: 5 mg Documented by: Pantoprazole Sodium (Protonix) 20 mg PO DAILY [facility] Last Admin: 01/14/19 10:14 Dose: 20 mg Documented by: Potassium Chloride (K-Dur) 20 meq PO TIDCM [facility] Last Admin: 01/14/19 10:12 Dose: 20 meq Documented by: Promethazine HCl (Phenergan Tablet) 25 mg PO Q6H PRN PRN Reason: NAUSEA Last Admin: 01/11/19 03:00 Dose: 25 mg Documented by: Sodium Chloride () 10 - 40 ml IV UD PRN PRN Reason: SALINE FLUSH Last Admin: 01/14/19 05:56 Dose: 10 ml Documented by: Trazodone HCl (Desyrel) 25 mg PO QHS [facility]IN[facility] Last Admin: 01/13/19 21:53 Dose: 25 mg Documented by: Home Medications: Medications to take at Discharge Simvastatin [Zocor] 20 mg PO QHS 01/15/14 Escitalopram Oxalate [Lexapro] 10 mg PO DAILY 06/29/15 Ipratropium/Albuterol Sulfate [Duoneb] 3 ml INHALATION TID 04/01/18 metolazone 2.5 mg tablet 2.5 mg PO DAILY 07/03/18 omeprazole magnesium 20 mg tablet,delayed release 20 mg PO DAILY 09/08/18 promethazine 25 mg tablet 25 mg PO Q6H PRN 09/08/18 potassium chloride ER 20 mEq tablet,extended release(part/cryst) 20 meq PO TID 90 Days #180 tab 09/17/18 Oxycodone [Oxyir] 5 mg PO Q6H PRN PRN 12/13/18 Ferrous Sulfate 325 mg PO BIDCM 12/16/18 Dexamethasone 2 mg PO DAILY 01/09/19 Dulaglutide [Trulicity] 0.75 mg SQ TU@1600 01/09/19 Fluticasone/Vilanterol [Breo Ellipta 100-25 Mcg INH] 1 puff INHALATION DAILY 01/09/19 Insulin Glargine,Hum.rec.anlog [Basaglar Kwikpen U-100] 50 unit SQ QHS 01/09/19 Insulin Lispro [Humalog KwikPen] 16 unit SQ TIDCM 01/09/19 Insulin Lispro [Humalog KwikPen] See Protocol SQ TIDCM 01/09/19 Metoprolol Tartrate 75 mg PO BID 01/09/19 Trazodone HCl 25 mg PO QHS 01/09/19 Fluticasone 0.05% [Flonase Nasal Galloway] 1 spray NASAL BID nasal.sry 01/14/19 Furosemide [Lasix] 60 mg PO BIDLX #60 tab 01/14/19 Primary Care Physician: Vic Chen MD [Primary Care Provider] - Please follow up with your Primary Care Physician in: 1 Week Please Follow Up With: Rajesh Dixon MD - May see STRAP CUTTING MACHINE OPERATOR When: 1 Week Please Follow Up With: Vic Xavier MD When: 1-2 Weeks, may see STRAP CUTTING MACHINE OPERATOR/PA Disposition: Custodial facility Minutes spent on discharge:: 35 Patient Condition:: Stable Medical Necessity - Tobacco Use Smoking Status: Former smoker Meaningful Use Info Meaningful Use Diagnoses (Choose all that apply): CHF - CHF CHADD/ARB ordered at discharge?: No Reason CHADD/ARB not ordered?: Worsening renal function Documented LVEF (%): 60 <David Montana E - Last Filed: 01/14/19 11:30> Discharge Date and Diagnosis - Secondary Discharge Diagnosis Chronic Problems (Last Updated 01/14/19 @ 10:57 by Alejandra Mendoza NP-C) Tobacco dependence in remission (Chronic) Anxiety (Chronic) CAD in [place] artery (Chronic) Type 2 diabetes mellitus (Chronic) Nonrheumatic aortic (valve) stenosis (Chronic) Essential hypertension (Chronic) Depression (Chronic) Morbid obesity (Chronic) CKD stage 3 secondary to diabetes (Chronic) Anemia (Chronic) Carotid artery stenosis (Chronic) Chronic hypoxemic respiratory failure (Chronic) Pulmonary fibrosis (Chronic) Stage 3 severe COPD by GOLD classification (Chronic) Pulmonary hypertension (Chronic) With PA pressures 55 by cardiac catheterization 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 Summary of Care Provided: Hospitalist note: Discharge summary above reviewed and I concur with the above discharge and treatment plan. Patient was admitted because of worsening shortness of breath and she was found to have acute on chronic diastolic CHF along with chronic combined hypoxic and hypercapnic respiratory failure. She was treated with BiPAP and IV Lasix for diuresis and she was maintained on metolazone and beta-blockers as well. Her 2D echocardiogram revealed ejection fraction of 60%, normal LV size, stage II diastolic dysfunction, moderately severe aortic stenosis. With BiPAP and IV diuresis, her symptoms minimally improved and patient refused to take off BiPAP although her oxygen has been stable on 6 L of oxygen which is her baseline at home. Her EKG revealed no acute ischemic changes. Troponin was negative. Pulmonary consulted and recommended to continue diuretic therapy, BiPAP breaks as tolerated and evaluation for noninvasive ventilator as outpatient. Patient has a history of severe aortic stenosis and according to the patient, she underwent full evaluation for TAVR and she was informed that she is not a candidate for the procedure. She has a history of chronic anemia with baseline hemoglobin around 8 to 9 g/dL and during this hospital stay, hemoglobin has been stable and there was no indication for blood transfusion. Patient discharged to [facility] facility in a stable medical condition, discharged on BiPAP, continued on diuretics, continued her previous medications, recommend follow-up with PCP in 1 week and follow-up with pulmonology in 1 week, follow-up with cardiology in 1 to 2 weeks. - Physical Exam General: Alert, Oriented x3, Cooperative, mildly shortness of breath. HEENT: Atraumatic, PERRLA, EOMI. Neck: Supple, No JVD, Negative Carotid Bruits, Trachea Midline, Thyroid Normal. Lungs: Decreased breath sounds bilateral, otherwise clear, No rhonchi, No wheeze, No rales. Cardiovascular: Regular rate, Regular Rhythm, Normal S1, Normal S2, PMI Normal. Abdomen: Bowel Sounds Present, Soft, Non Tender, Non-Distended, No Hepato-splenomegaly, obese. Extremities: No clubbing, No cyanosis,+ edema Skin: No rashes, No breakdown Neurological: Cranial nerves are intact, neuro grossly intact. This note was generated with [employer] dictation software. It may contain incorrect words, spelling, and punctuation that were not noted in checking the note before signing. - Physical Exam Vitals/I&O's: Vital Signs Temp Pulse Resp BP Pulse Ox 97.6 F L 89 26 H 112/52 L 98 01/14/19 11:07 01/14/19 11:07 01/14/19 11:07 01/14/19 11:07 01/14/19 11:07 Oxygen Flow Rate (L/min) 4 Oxygen Delivery Method Bi-pap Weight: 276 lb 10.882 oz Body Mass Index (BMI) 50.1 Finger Stick Blood Glucose 478 Intake and Output for Last 24 Hours 01/12/19 01/13/19 01/14/19 23:59 23:59 23:59 Intake Total 1530 / 1530 1130 / 1130 240 / 240 Output Total 1950 / 1950 1250 / 1250 400 / 400 Balance -420 / -420 -120 / -120 -160 / -160 Laboratory Results 01/13/19 17:05: POC Glucose 398 H 01/13/19 21:58: POC Glucose 368 H 01/14/19 05:40: Sodium 137, Potassium 4.3, Chloride 85 L, Carbon Dioxide > 45.0 H*, Anion Gap TNP, BUN 78 H, Creatinine 1.27 H, Estim Creat Clear Calc 34.10, Est GFR (MDRD) Af Amer 53 L, Est GFR (MDRD) Non-Af 44 L, BUN/Creatinine Ratio 61.4 H, Glucose 250 H, Calcium 9.0 01/14/19 06:43: POC Glucose 258 H Current Medications Albuterol/Ipratropium (Duoneb) 3 ml INHALATION Q6HWA.RT [facility] Last Admin: 01/14/19 07:07 Dose: 3 ml Documented by: Atorvastatin Calcium (Lipitor) 10 mg PO QHS [facility] Last Admin: 01/13/19 21:53 Dose: 10 mg Documented by: Budesonide (Pulmicort Aerosol) 0.5 mg INHALATION Q12H.RT [facility] Last Admin: 01/14/19 07:07 Dose: 0.5 mg Documented by: Calamine/Phenol (Calmoseptine Ointment) 1 applic TOPICAL BID [facility]; Protocol Last Admin: 01/14/19 10:13 Dose: 1 applicatio Documented by: [facility]) [facility] Last Admin: 01/14/19 10:11 Dose: 2 mg Documented by: Dextrose (D50w Syringe) 0 gm IV X1 PRN; Protocol PRN Reason: Hypoglycemia Escitalopram Oxalate (Lexapro) 10 mg PO DAILY [facility] Last Admin: 01/14/19 10:14 Dose: 10 mg Documented by: Ferrous Sulfate (Ferrous Sulfate) 325 mg PO BIDCM [facility] Last Admin: 01/14/19 10:12 Dose: 325 mg Documented by: Fluticasone Propionate (Flonase Nasal Galloway) 1 spray NASAL BID [facility] Last Admin: 01/14/19 10:13 Dose: 1 spray Documented by: Furosemide (Lasix) 40 mg IV TID [facility] Last Admin: 01/14/19 05:56 Dose: 40 mg Documented by: Glucagon () 1 mg IM .X1 PRN PRN Reason: Hypoglycemia Insulin Glargine (Lantus (Bkc)) 50 units SC QHS [facility] Last Admin: 01/13/19 21:58 Dose: 50 u Documented by: Insulin Human Lispro (Humalog Kwikpen (Bkc)) 0 unit SC ACHS [facility]; Protocol Last Admin: 01/14/19 06:43 Dose: 4 u Documented by: Metolazone (Zaroxolyn) 2.5 mg PO DAILY [facility] Last Admin: 01/14/19 10:14 Dose: 2.5 mg Documented by: Metoprolol Tartrate (Lopressor (Beta Jeffery)) 75 mg PO BID [facility] Last Admin: 01/14/19 10:14 Dose: 75 mg Documented by: Nutritional Formula (Lactose Free) (Glucerna Shake) 60 ml PO TIDCM [facility] Last Admin: 01/14/19 10:13 Dose: 60 ml Documented by: Oxycodone HCl (Oxyir) 5 mg PO Q6H PRN PRN PRN Reason: Pain Score 1-10/10 Last Admin: 01/13/19 17:36 Dose: 5 mg Documented by: Pantoprazole Sodium (Protonix) 20 mg PO DAILY [facility] Last Admin: 01/14/19 10:14 Dose: 20 mg Documented by: Potassium Chloride (K-Dur) 20 meq PO TIDCM [facility] Last Admin: 01/14/19 10:12 Dose: 20 meq Documented by: Promethazine HCl (Phenergan Tablet) 25 mg PO Q6H PRN PRN Reason: NAUSEA Last Admin: 01/11/19 03:00 Dose: 25 mg Documented by: Sodium Chloride () 10 - 40 ml IV UD PRN PRN Reason: SALINE FLUSH Last Admin: 01/14/19 05:56 Dose: 10 ml Documented by: Trazodone HCl (Desyrel) 25 mg PO QHS [facility] Last Admin: 01/13/19 21:53 Dose: 25 mg Documented by: Disposition: Custodial facility Minutes spent on discharge:: 33 Patient Condition:: Stable Meaningful Use Info Meaningful Use Diagnoses (Choose all that apply): CHF - CHF CHADD/ARB ordered at discharge?: No Reason CHADD/ARB not ordered?: Worsening renal function Documented LVEF (%): 60 Code Visit Inpatient E&M: 91763 Disch Hosp
--- NOTE | 2019-01-14 11:00 | PN_ITS ---
Subjective: Patient continues to do okay on BiPAP therapy. Patient very reluctant to remove therapy. Inaccurate outputs, but weight appears to be responding to diuretic therapy. Patient states I am fine as long as I am on the mask. Patient still has significant upper and lower extremity edema. - Physical Exam Vitals/I&O's: Vital Signs Temp Pulse Resp BP Pulse Ox 37.1 C 95 19 H 104/61 98 01/14/19 08:41 01/14/19 10:14 01/14/19 08:41 01/14/19 08:41 01/14/19 08:41 Oxygen Flow Rate (L/min) 4 Oxygen Delivery Method Bi-pap Weight: 125.5 kg Body Mass Index (BMI) 50.1 Finger Stick Blood Glucose 478 Intake and Output for Last 24 Hours 01/12/19 01/13/19 01/14/19 23:59 23:59 23:59 Intake Total 1530 / 1530 1130 / 1130 240 / 240 Output Total 1950 / 1950 1250 / 1250 400 / 400 Balance -420 / -420 -120 / -120 -160 / -160 General: Alert, Oriented x3, Cooperative, No apparent distress - While on BiPAP, - - Morbidly obese HEENT: Atraumatic, PERRLA, EOMI, Normocephalic, - - Scleral injection without icterus Oral: No Gingival or Mucosal Lesions/ Ulcerations, Dry Mucosa Neck: Supple, No JVD, No Nodes, Trachea Midline Lungs: No rhonchi, No wheeze, Diminished, Rales, - - Coarse breath sounds with BiPAP Cardiovascular: Regular rate, Regular Rhythm, Normal S1, Normal S2, Murmur, No rub noted, No Gallop Abdomen: Bowel Sounds Present, Soft, Non Tender, Non-Distended, Obese Extremities: No cyanosis, Capillary Refill Less than 3 Seconds, Edema Skin: - - No significant change compared to previous Musculoskeletal: No Tenderness to Palpation of Joints or Extremities Lymphatic: No Cervical, Supraclavicular, or Inguinal Adenopathy Neurological: Cranial nerves II-XII grossly intact, Neuro grossly intact, Motor Exam 5/5 strength throughout Psych/Mental Status: Anxious, Flat Affect Laboratory Results 01/13/19 11:00: POC Glucose 317 H 01/13/19 17:05: POC Glucose 398 H 01/13/19 21:58: POC Glucose 368 H 01/14/19 05:40: Sodium 137, Potassium 4.3, Chloride 85 L, Carbon Dioxide > 45.0 H*, Anion Gap TNP, BUN 78 H, Creatinine 1.27 H, Estim Creat Clear Calc 34.10, Est GFR (MDRD) Af Amer 53 L, Est GFR (MDRD) Non-Af 44 L, BUN/Creatinine Ratio 61.4 H, Glucose 250 H, Calcium 9.0 01/14/19 06:43: POC Glucose 258 H Current Medications Albuterol/Ipratropium (Duoneb) 3 ml INHALATION Q6HWA.RT [facility], [facility] Last Admin: 01/14/19 07:07 Dose: 3 ml Documented by: Atorvastatin Calcium (Lipitor) 10 mg PO QHS [facility], [facility] Last Admin: 01/13/19 21:53 Dose: 10 mg Documented by: Budesonide (Pulmicort Aerosol) 0.5 mg INHALATION Q12H.RT [facility], [facility]1983 Last Admin: 01/14/19 07:07 Dose: 0.5 mg Documented by: Calamine/Phenol (Calmoseptine Ointment) 1 applic TOPICAL BID FOR[facility]LY [facility], [facility]1983; Protocol Last Admin: 01/14/19 10:13 Dose: 1 applicatio Documented by: Dexamethasone (Decadron) [facility] Last Admin: 01/14/19 10:11 Dose: 2 mg Documented by: Dextrose (D50w Syringe) 0 gm IV X1 PRN; Protocol PRN Reason: Hypoglycemia Escitalopram Oxalate (Lexapro) 10 mg PO DAILY [facility] Last Admin: 01/14/19 10:14 Dose: 10 mg Documented by: Ferrous Sulfate (Ferrous Sulfate) 325 [facility] Last Admin: 01/14/19 10:12 Dose: 325 mg Documented by: Fluticasone Propionate (Flonase Nasal [place]) 1 spray NASAL BID [facility] Last Admin: 01/14/19 10:13 Dose: 1 spray Documented by: Furosemide (Lasix) 40 mg IV TID [facility] Last Admin: 01/14/19 05:56 Dose: 40 mg Documented by: Glucagon () 1 mg IM .X1 PRN PRN Reason: Hypoglycemia Insulin Glargine (Lantus (Bk)) 50 units SC QHS [facility] Last Admin: 01/13/19 21:58 Dose: 50 u Documented by: Insulin Human Lispro (Humalog Kwikpen ([facility])) 0 unit SC ACHS [facility], [facility]; Protocol Last Admin: 01/14/19 06:43 Dose: 4 u Documented by: Metolazone (Zaroxolyn) 2.5 mg PO DAILY [facility] Last Admin: 01/14/19 10:14 Dose: 2.5 mg Documented by: Metoprolol Tartrate (Lopressor (Beta Jeffery)) 75 mg PO BID [facility] Last Admin: 01/14/19 10:14 Dose: 75 mg Documented by: Nutritional Formula (Lactose Free) (Glucerna Shake) 60 ml PO TIDCM [facility] Last Admin: 01/14/19 10:13 Dose: 60 ml Documented by: Oxycodone HCl (Oxyir) 5 mg PO Q6H PRN PRN PRN Reason: Pain Score 1-1010 Last Admin: 01/13/19 17:36 Dose: 5 mg Documented by: Pantoprazole Sodium (Protonix) 20 mg PO DAILY [facility] Last Admin: 01/14/19 10:14 Dose: 20 mg Documented by: Potassium Chloride (K-Dur) 20 meq PO TIDCM [facility] Last Admin: 01/14/19 10:12 Dose: 20 meq Documented by: Promethazine HCl (Phenergan Tablet) 25 mg PO Q6H PRN PRN Reason: NAUSEA Last Admin: 01/11/19 03:00 Dose: 25 mg Documented by: Sodium Chloride () 10 - 40 ml IV UD PRN PRN Reason: SALINE FLUSH Last Admin: 01/14/19 05:56 Dose: 10 ml Documented by: Trazodone HCl (Desyrel) 25 mg PO QHS [facility] Last Admin: 01/13/19 21:53 Dose: 25 mg Documented by: Medical Necessity - Tobacco Use Smoking Status: Former smoker Assessment/Plan All Active Problems (Last Updated 01/14/19 @ 10:57 by SHOLA Garcia) Chronic diastolic (congestive) heart failure (Acute) RECOMMENDATIONS: 1. Continue increased diuretic therapy 2. BiPAP breaks as tolerated 3. Consider evaluation for noninvasive ventilator 4. May need to complete an ABG on 4 L/min to document CO2 retention to qualify for noninvasive therapy if going home 5. Could be re-evaluated by [facility] as an outpatient for possible TAVR IMPRESSIONS: 1. Acute on chronic combined respiratory failure secondary to acute on chronic diastolic congestive heart failure Patient with multiple complicating factors including acute on chronic diastolic congestive heart failure, aortic stenosis in the setting of COPD. Patient has been highly variable on BiPAP compliance in the past, but has been relatively dependent while in the hospital. Patient's baseline/dry weight appears to be approximately 120 kg. This would suggest the patient has 7 to 10 kg of water weight. Would recommend aggressive diuresis and continue to monitor. Will need to watch renal function closely as patient's therapeutic window is very small. 2. Acute on chronic blood loss anemia Patient does have a history of GI AVMs in the past. Patient's hemoglobin is currently stable and acceptable. Transfuse to keep hemoglobin greater than 8 given cardiac condition. Patient is on a PPI at appropriate dosing. Doubt need for emergent endoscopy for evaluation. Cannot exclude destruction of blood cells secondary to aortic stenosis as a secondary etiology given patient's lack of melena. No clinical signs of bleeding at this time. 3. Aortic stenosis Exact morphology is unclear at this time. Some testing suggest severe disease and others suggest that intervention is not required. Patient has had multiple admissions over the last year secondary to fluid overload requiring diuresis of 10-12 L of fluid. Patient's current input and output are inaccurate, so body weight will be needed to be used. Anticipate patient needs to diurese to 115 to 120 kg. Patient could benefit from outpatient evaluation to see if surgical intervention would be appropriate. If patient does not qualify for valve replacement, long-term prognosis is extremely guarded. 4. Morbid obesity/type 2 diabetes mellitus/hypertension/advanced age Complicates care, management, recovery and prognosis. Likely okay to continue with baseline medications. Patient with variable p.o. intake. Patient is requesting discharge home, but demands would be relatively high and would necessitate significant assistance would be required. Case management is aware and discussing with family Code Visit Inpatient E&M: [id number] [facility] H[facility] L3
--- NOTE | 2019-01-14 11:13 | PHA.DC.MR ---
Pharmacy Service has performed discharge medication reconciliation for this patient. Home Medications Simvastatin [Zocor] 20 mg PO QHS 01/15/14 Escitalopram Oxalate [Lexapro] 10 mg PO DAILY 06/29/15 Ipratropium/Albuterol Sulfate [Duoneb] 3 ml INHALATION TID 04/01/18 metolazone 2.5 mg tablet 2.5 mg PO DAILY 07/03/18 omeprazole magnesium 20 mg tablet,delayed release 20 mg PO DAILY 09/08/18 promethazine 25 mg tablet 25 mg PO Q6H PRN 09/08/18 potassium chloride ER 20 mEq tablet,extended release(part/cryst) 20 meq PO TID 90 Days #180 tab 09/17/18 Oxycodone [Oxyir] 5 mg PO Q6H PRN PRN 12/13/18 Ferrous Sulfate 325 mg PO BIDCM 12/16/18 Dexamethasone 2 mg PO DAILY 01/09/19 Dulaglutide [Trulicity] 0.75 mg SQ TU@1600 01/09/19 Fluticasone/Vilanterol [Breo Ellipta 100-25 Mcg INH] 1 puff INHALATION DAILY 01/09/19 Insulin Glargine,Hum.rec.anlog [Basaglar Kwikpen U-100] 50 unit SQ QHS 01/09/19 Insulin Lispro [Humalog KwikPen] 16 unit SQ TIDCM 01/09/19 Insulin Lispro [Humalog KwikPen] See Protocol SQ TIDCM 01/09/19 Metoprolol Tartrate 75 mg PO BID 01/09/19 Trazodone HCl 25 mg PO QHS 01/09/19 Fluticasone 0.05% [Flonase Nasal [place]] 1 spray NASAL BID nasal.sry 01/14/19 Furosemide [Lasix] 60 mg PO BIDLX #60 tab 01/14/19 The patient's discharge medication list was reviewed for discrepancies and discrepancies were resolved.
[2019-01-14 11:31] LABS: Bedside Glucose 340 mg/dL (70-110)
--- NOTE | 2019-01-14 11:32 | CASEMGMT ---
Addendum entered by Chey Scott 01/14/19 12:45: SW had to change warehouse picker time for patient as [facility] is not sure they will have the bi-pap by 1p. SW arranged for patient to get picked up at 6p. SW notified RN, litigation legal secretary, patient, her , and Miriam at [facility]. Chey BUSTILLOS Original Note: Received call from Miriam at [facility] and they can take patient. SW faxed orders to [facility]. SW made sure bi-pap settings were on the instructions and that they need to work with Pulmonary office on arranging Trilogy before patient is discharged home. ANTONIO called [facility] and arranged for patient to get picked up at 1p via cot due to bi-pap. SW notified patient, transmitter engineer in charge, litigation legal secretary, Miriam at [facility], and patient's . Plan: d/c to [facility] under skilled level of care. [facility] picked patient up at 1p. Chey BUSTILLOS
--- NOTE | 2019-01-14 12:57 | NURSING ---
Read and reviewed SN documentation
--- NOTE | 2019-01-14 13:16 | NURSING ---
Read and reviewed SN documentation
--- NOTE | 2019-01-14 13:19 | NURSING ---
Read and reviewed SN documentation
[2019-01-14 17:11] LABS: Bedside Glucose 306 mg/dL (70-110)
== END 2019-01-14 18:03 | disposition skilled nursing facility (03) | DRG 291 ==
LOC: ED 16:32 → PCU 19:07
PROVIDERS: Internal Medicine; Nurse Practitioner Family; Admitting Provider Student in an Organized Health Care Education/Training Program; Emergency Provider Emergency Medicine; Family Provider Family Medicine; PCP Family Medicine; Visit Provider Hospitalist
DX: I13.0 Hypertensive heart and chronic kidney disease with heart failure and stage 1 through stage 4 chronic kidney disease, or unspecified chronic kidney disease (principal); I50.33 Acute on chronic diastolic (congestive) heart failure; Z68.43 Body mass index [BMI] 50.0-59.9, adult; J96.11 Chronic respiratory failure with hypoxia; J96.12 Chronic respiratory failure with hypercapnia; N18.3 Chronic kidney disease, stage 3 (moderate); E11.22 Type 2 diabetes mellitus with diabetic chronic kidney disease; E78.5 Hyperlipidemia, unspecified; Z99.81 Dependence on supplemental oxygen; D64.9 Anemia, unspecified; E66.01 Morbid (severe) obesity due to excess calories; I35.0 Nonrheumatic aortic (valve) stenosis; E87.6 Hypokalemia; J84.10 Pulmonary fibrosis, unspecified; J44.9 Chronic obstructive pulmonary disease, unspecified; F17.201 Nicotine dependence, unspecified, in remission; I25.10 Atherosclerotic heart disease of native coronary artery without angina pectoris; K55.20 Angiodysplasia of colon without hemorrhage; Z79.4 Long term (current) use of insulin; Z86.73 Personal history of transient ischemic attack (TIA), and cerebral infarction without residual deficits; I27.20 Pulmonary hypertension, unspecified; I65.29 Occlusion and stenosis of unspecified carotid artery
CPT/HCPCS: 36415; 36430; 71045; 80048; 82962; 83735; 83880; 84484; 85025; 85027; 85610; 85730; 86850; 86900; 86901; 86920; 86922; 93005; 93306; 94002; 94003; 94640; 97802; 97803; 99284; J7040; P9016; Q9957; A4216; C8929; J1940

== ENCOUNTER 2019-01-22 16:36 | Emergency (ER) | payer MEDICARE, OTHER, SELFPAY ==
[2019-01-22] VITALS (8 sets, daily range): BP systolic 106–129; BP diastolic 55–60; PULSE 99–112; RESP 19–24; TEMP 36.4–36.8; O2SAT 100; BMI 44.2; BMI 47.8
--- NOTE | 2019-01-22 17:19 | RAD_ITS ---
STUDY: X-RAY CHEST REASON FOR EXAM: Female, 68 years old. Weakness. Abnormal laboratories. TECHNIQUE: Single AP portable view of the chest. COMPARISON: January 09, 2019. FINDINGS: The lungs are hypoexpanded. There is increasing density at the right lung base. Minimal interstitial changes are again seen in the left perihilar region and left lower lobe. There is no demonstrated pleural abnormality. There is mild cardiac enlargement. Normal mediastinum and deepthi. Normal visualized pulmonary arteries. Normal visualized aortic arch and descending thoracic aorta. The thoracic spine is obscured by the mediastinum. There is degenerative osteoarthritis of the bilateral shoulders. There is no demonstrated abnormality of the visualized soft tissue structures of the upper abdomen. RAD/Chest 1 View (Portable) IMPRESSION: 1. Increasing density at the right lung base when compared to prior study. 2. Persistent left perihilar and lower lobe densities. 3. Decrease in degree of cardiomegaly with lack of pulmonary hilar prominence seen on the prior study. Electronically Signed: Tomas Isbell DO at 17:45 EST Tel [phone], Service support ,
[2019-01-22 17:20] LABS: Base Excess 18 mmol/L (-2 to +2); Bicarbonate 44.6 mmol/L (22-26); O2 Delivery Device NRB Mask; SITE R Brachial; SO2 36 % (95-99); Time Given 1705; Total Carbon Dioxide 47 mmol/L
--- NOTE | 2019-01-22 17:20 | CPS ---
Dr. Callejas aware of critical VBG results
--- NOTE | 2019-01-22 17:20 | EKG12_ITS ---
Test Reason : ABN LABS Blood Pressure : / mmHG Vent. Rate : 096 BPM Atrial Rate : 096 BPM P-R Int : 160 ms QRS Dur : 138 ms QT Int : 390 ms P-R-T Axes : 060 045 008 degrees QTc Int : 492 ms Normal sinus rhythm Right bundle branch block Abnormal ECG Confirmed by ANJANA GAMBOA, CHOLO ([id number]), restaurant expeditor MINNA BEAN ([id number]) on 01/27/2019 2:38:24 PM Referred By: BB Confirmed By:CHOLO YEUNG MD
--- NOTE | 2019-01-22 17:23 | ED.VIS.GEN ---
History of Present Illness Chief Complaint: Abn Labs Detail of Chief Complaint: fatigue Informant: Patient, Significant Other, SNF Onset: Days - Several Context: Gradual Onset Timing: Continuous Quality: fatigue/weak Location: all over Current Severity: Severe Maximum Severity: Severe Worsened by: nothing Relieved by: nothing Associated Symptoms: pt denies Narrative: Patient is bedbound skilled nursing patient has been feeling weak and tired for several days had labs that showed severe anemia less than 5 hemoglobin, hyperkalemia, sent to the emergency department. She is DNR Comfort Care arrest. states she recently had blood transfusions for anemia. She had an AVM diagnosed in her bowels seen on colonoscopy several years ago, he states that she chronically has black stools, rest of the history is relatively limited based on what they are telling me. - Past Medical History (1) Chronic diastolic (congestive) heart failure Status: Chronic (2) Anemia Status: Chronic (3) Anxiety Status: Chronic (4) CAD in [place] artery Status: Chronic (5) CKD stage 3 secondary to diabetes Status: Chronic (6) Carotid artery stenosis Status: Chronic (7) Chronic hypoxemic respiratory failure Status: Chronic (8) Depression Status: Chronic (9) Essential hypertension Status: Chronic (10) GI AVM (gastrointestinal arteriovenous vascular malformation) Status: Chronic (11) Morbid obesity Status: Chronic (12) Nonrheumatic aortic (valve) stenosis Status: Chronic (13) Pulmonary fibrosis Status: Chronic (14) Pulmonary hypertension Status: Chronic Comment: With PA pressures 55 by cardiac catheterization (15) Stage 3 severe COPD by GOLD classification Status: Chronic (16) Tobacco dependence in remission Status: Chronic (17) Type 2 diabetes mellitus Status: Chronic Past Medical History - Allergies and Home Meds Allergies/Adverse Reactions: Allergies No Known Allergies Allergy (Verified 01/09/19 15:56) Primary Care Physician: Vic Chen MD [Primary Care Provider] - Doctors: [facility] Surgical History: herniorrhaphy, hysterectomy 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 Denies: Chills, Fever, Sweats Eyes: Denies: Visual changes - bilaterally, Diplopia ENT: Denies: Rhinorrhea, Sore throat Cardiovascular: Denies: Chest pain, Palpitations Respiratory: Denies: Dyspnea, Cough, Dyspnea on exertion Gastrointestinal: Reports: Nausea, Melena. Denies: Abdominal pain, Vomiting, Diarrhea, Hematochezia Genitourinary: Denies: Dysuria, Hematuria, Frequency Musculoskeletal: Reports: Swelling. Denies: Neck pain, Back pain, Extremity Pain Skin: Denies: Rash, Wounds Neurological: Denies: Headache, Weakness, Numbness Physical Exam Vital Signs/Narrative: Vital Signs Temp Pulse Resp BP Pulse Ox 01/22/19 16:47 98.3 F 24 H 100 01/22/19 16:41 98.3 F 99 24 H 106/59 L 100 Inital Vital Signs reviewed: Yes General: Well nourished, Well developed, Obese, No Acute Distress Head: Normocephalic, Atraumatic Eyes: Perrl, EOMI ENT: Moist mucous membranes, No rhinorrhea Neck: Supple, Nontender, No lymphadenopathy Cardiovascular: Regular rate, Regular rhythm, No murmurs Respiratory: No distress, CTA bilaterally, Chest nontender, Diminished - Worse at bases. Symmetric. Abdomen: Soft, Nontender, Nondistended, Normal bowel sounds Rectal: Guaiac positive, Nontender, - - Melanotic without red blood Back: Nontender, Normal Inspection Extremities: Nontender, Edema - With wraps in place to knees bilaterally; toes with brisk cap refill bilaterally Skin: Normal color, No rash, No Trauma Neurological: Alert, Oriented x3, Cranial nerves II-XII grossly intact, Normal Strength, Normal Sensation Psychological: Normal affect, Normal Mood Diagnostic/Tx/Re-eval Impressions Chest X-Ray 01/22/19 17:19 IMPRESSION: 1. Increasing density at the right lung base when compared to prior study. 2. Persistent left perihilar and lower lobe densities. 3. Decrease in degree of cardiomegaly with lack of pulmonary hilar prominence seen on the prior study. Electronically Signed: Tomas Isbell DO at 17:45 EST Tel [phone], Service support , 01/22/19 17:19 Chest 1 View (Portable) [RAD] Stat 01/22/19 17:24 Stool Stool Occult Blood (TESS) - Final Occult Blood Positive Laboratory Results 01/22/19 01/22/19 01/22/19 17:13 17:27 17:27 WBC 23.1 H RBC 1.88 L Hgb 4.7 L* Hct 18.0 L MCV 95.7 MCH 25.0 L MCHC 26.1 L RDW Std Deviation 64.0 H RDW [place]eff of [place] 18.9 H Plt Count 597 H MPV 9.6 Neut % (Auto) Not Reportable Absolute Neuts (auto) 19.6 H Absolute Lymphs (auto) 0.46 L Total Counted 100 Neutrophils % (Manual) 83 H Band Neutrophils % 2 Lymphocytes % (Manual) 2 L Monocytes % (Manual) 5 Metamyelocytes % 3 H Myelocytes % 5 H Diff Path Review May foll Platelet Estimate ADEQUATE Polychromasia 1+ PT 14.9 INR 1.2 APTT 31.8 Specimen Type KYLE Sample Site R Brachial pH 7.30 L Bicarbonate Actual 44.6 H POC Total CO2 47 Base Excess 18 H O2 Saturation 36 L ABG pCO2 90.7 H* ABG pO2 25 L* Luis Fernando Test NA O2 Delivery Device NRB Mask Liter Flow 15.0 Blood Gas Notified Whom ED MD Blood Gas Notified Time 1705 Sodium Potassium Chloride Carbon Dioxide Anion Gap BUN Creatinine Estim Creat Clear Calc Est GFR (MDRD) Af Amer Est GFR (MDRD) Non-Af BUN/Creatinine Ratio Glucose Calcium Troponin I Crossmatch 01/22/19 01/22/19 17:27 17:33 WBC RBC Hgb Hct MCV MCH MCHC RDW Std Deviation RDW [place] Plt Count MPV Neut % (Auto) Absolute Neuts (auto) Absolute Lymphs (auto) Total Counted Neutrophils % (Manual) Band Neutrophils % Lymphocytes % (Manual) Monocytes % (Manual) Metamyelocytes % Myelocytes % Diff Path Review Platelet Estimate Polychromasia PT INR APTT Specimen Type Sample Site pH Bicarbonate Actual POC Total CO2 Base Excess O2 Saturation ABG pCO2 ABG pO2 Luis Fernando Test O2 Delivery Device Liter Flow Blood Gas Notified Whom Blood Gas Notified Time Sodium 131 L Potassium 6.2 H* Chloride 87 L Carbon Dioxide 41.0 H Anion Gap 3 L BUN 97 H Creatinine 1.96 H Estim Creat Clear Calc 22.09 Est GFR (MDRD) Af Amer 32 L Est GFR (MDRD) Non-Af 27 L BUN/Creatinine Ratio 49.5 H Glucose 233 H Calcium 8.7 Troponin I 0.020 Crossmatch See Detail - Rhythm Strip Rhythm Strip: Sinus Rhythm Rate: 99 Ectopy: None - EKG Initial EKG Interpretation: Sinus Rhythm, No Acute Injury Pattern, RBBB Prior: Unchanged - Medical Decision Making Patient appears to have pneumonia, she had an x-ray 2 weeks ago that did not appear to show this. She has a significant leukocytosis. She is very anemic and hyperkalemic with renal function that is a little worse than before, her BUN at 97 is probably due to upper GI bleeding. She states the last time she has scope was a couple years ago by a GI doctor who no longer comes here. It is unknown if she has had chronic daily bleeding that is treated with blood transfusions or if this is acute and new/recurrent. Dr. Angeles, the physician on-call, attempted to contact Dr. Chen who knows more about her, and he was not available. The patient is clinically and hemodynamically stable. She is on an oxygen facemask and breathing okay. We will add lactate and blood cultures and antibiotics due to the infiltrate on x-ray. We are waiting on packed red blood cells which the patient consents to for transfusion. Her EKG shows a stable right bundle branch block, it does not appear to be change compared with her old one, but she has been treated for hyperkalemia as well. I attempted to admit her however we have no GI coverage and the surgeons that do EGDs are not comfortable admitting this patient as they do not do intervention during scopes. Therefore we do not have the capacity to care for this patient here. Awaiting callback for transfer. Lactate returned 0.9 within normal limits. Protonix bolus and drip ordered along with antibiotics, hyperkalemic treatment as above. Accepted by Dr. Mekhi Brady at [facility] to the ICU. - Critical Care Time Critical care time (excluding procedures): 30-74 minutes - 35 minutes, Including time spent:, Discussing w/Patient &/or Family/Explosives Detonator, Discussing w/Consultants, Arranging Admission or Transfer, Performing Direct Patient Care at Bedside ED Disposition - Plan for ED Patient: Disposition: [facility] Diagnosis: Acute on chronic blood loss anemia, UGI bleed, GI AVM (gastrointestinal arteriovenous vascular malformation), Acute on chronic renal failure, Hyperkalemia, Healthcare-associated pneumonia, Sepsis due to pneumonia Referrals: Vic Chen MD [Primary Care Provider] -
[2019-01-22 17:25] LABS: Blood Gas Specimen Type VEN
[2019-01-22 17:26] LABS: pCO2 90.7 mmHg (35-45)
[2019-01-22 17:27] LABS: PO2 25 mmHG (75-100)
[2019-01-22 17:39] LABS: Mean Corp Hgb Conc 26.1 g/dL (32-36); Mean Corpuscular Volume 95.7 fL (81-99); Mean Platelet Vol. 9.6 fl (6.2-12.0); POSITIVE COUNT YES; POSITIVE DIFFERENTIAL YES; POSITIVE MORPHOLOGY YES; Platelet Count 597 K/mm3 (150-450); RBC Distribution Width CV 18.9 % (11.6-14.6); Red Blood Count 1.88 M/mm3 (4.2-5.4); White Blood Count 23.1 K/mm3 (4.4-11.0)
[2019-01-22 17:46] LABS: International Normalized Ratio 1.2; Prothrombin Time (Protime)PT. 14.9 SECONDS (11.7-14.9)
[2019-01-22 17:47] LABS: Partial Thromboplast Time 31.8 Seconds (24.1-36.2)
[2019-01-22 18:01] LABS: Differential Indicated MANUAL DIFF; Hemoglobin 4.7 g/dL (12.0-15.0)
--- NOTE | 2019-01-22 18:07 | ED.RN ---
LAB RESULTS GIVEN TO
[2019-01-22 18:09] LABS: Anion Gap 3 (5-15); BUN 97 mg/dL (7-18); BUN/Creat Ratio 49.5 RATIO (10-20); Calcium,Total 8.7 mg/dL (8.5-10.1); Chloride 87 mmol/L (98-107); Creatinine, Serum 1.96 mg/dL (0.55-1.02); EST Glomerular Filtration Rate 27 mL/min (>60); Est Glom Filt Rate - Afr Amer 32 mL/min (>60); Estimated Creatinine Clearance 22.09 ml/min; Glucose 233 mg/dL (74-106); Potassium 6.2 mmol/L (3.5-5.1); Sodium Level 131 mmol/L (136-145)
[2019-01-22 18:11] LABS: Lymphocyte 2 % (19-41); Metamyelocyte 3 % (0-1); Monocyte 5 % (0-10); Myelocyte 5 (0-0); Neutrophil-Band 2 % (0-5); Neutrophil-Segmented 83 % (47-70); Total Cells Counted 100 (MANUAL DIFF)
[2019-01-22 18:13] LABS: Absolute Lymphocyte Count 0.46 X10^3/uL (0.83-4.51); Absolute Neutrophil Count 19.6 X10^3/uL (2.0-7.7); Polychromasia 1+
[2019-01-22 18:14] LABS: Platelet Estimate ADEQUATE (ADEQ)
[2019-01-22 19:08] LABS: Bacteria 0 SEEN /hpf (None Seen); Mucous, Urine 0 SEEN /hpf (<or=2+); Red Blood Cells-Urine 0 SEEN /hpf (0-5)
[2019-01-22 19:17] LABS: Color, Urine Yellow (Yellow); Glucose, Dipstick Normal (Normal); Ketone-Dipstick Negative (Negative); Leukocyte Esterase-Dipstick 100 /ul (Negative); Nitrite-Dipstick Negative (Negative); Occult Blood-Urine Negative /ul (Negative); Protein-Dipstick Negative (Negative); Urine Bilirubin Dipstick Negative (Negative); Urine Clarity Sl. Cloudy (Clear); Urine Urobilinogen Normal (Normal)
[2019-01-22 19:24] LABS: Squamous Epithelial Cells - UA 0-5 SEEN /hpf (5-10); White Blood Cells 5-10 SEEN /hpf (0-5)
[2019-01-22 19:25] LABS: Amorphous Sediment 1+ URATE
[2019-01-22] MEDS: Dextrose 50%-Water 25 GM/50 ML DISP.SYRIN IV (19:37)
[2019-01-22] MEDS: Insulin Lispro 5 UNIT in Syringe 0 ML 3 UNIT IV (19:39)
[2019-01-22] MEDS: Calcium Gluconate 1 GM/10 ML Vial IV (19:41)
[2019-01-22] MEDS: Sodium Polystyrene Sulfonate 15 GM/60 ML UDC 30 GM PO (19:42)
[2019-01-22 19:52] LABS: Lactic Acid 0.9 mmol/L (0.4-2.0)
[2019-01-22] MEDS: levoFLOXacin IV 750 MG/150 ML BAG 100 MG IV (20:28)
--- NOTE | 2019-01-22 21:44 | ED.RN ---
blood continued during transfer to [facility]
[2019-01-23 13:48] LABS: Pathologist Review Reviewed
== END 2019-01-22 21:45 | disposition short-term general hospital (02) ==
PROVIDERS: Emergency Provider Emergency Medicine; Family Provider Family Medicine; PCP Family Medicine
DX: D50.0 Iron deficiency anemia secondary to blood loss (chronic) (principal); K92.2 Gastrointestinal hemorrhage, unspecified; Q27.33 Arteriovenous malformation of digestive system vessel; E87.5 Hyperkalemia; A41.9 Sepsis, unspecified organism; J18.9 Pneumonia, unspecified organism; J44.0 Chronic obstructive pulmonary disease with (acute) lower respiratory infection; Y95 Nosocomial condition; E11.22 Type 2 diabetes mellitus with diabetic chronic kidney disease; I13.0 Hypertensive heart and chronic kidney disease with heart failure and stage 1 through stage 4 chronic kidney disease, or unspecified chronic kidney disease; N18.3 Chronic kidney disease, stage 3 (moderate); I50.32 Chronic diastolic (congestive) heart failure; N17.9 Acute kidney failure, unspecified; I45.10 Unspecified right bundle-branch block; F41.9 Anxiety disorder, unspecified; I65.29 Occlusion and stenosis of unspecified carotid artery; J96.11 Chronic respiratory failure with hypoxia; F32.9 Major depressive disorder, single episode, unspecified; E66.01 Morbid (severe) obesity due to excess calories; I35.0 Nonrheumatic aortic (valve) stenosis; J84.10 Pulmonary fibrosis, unspecified; I25.10 Atherosclerotic heart disease of native coronary artery without angina pectoris; I27.20 Pulmonary hypertension, unspecified; Z66 Do not resuscitate; Z74.01 Bed confinement status; Z79.4 Long term (current) use of insulin; Z79.899 Other long term (current) drug therapy; Z87.891 Personal history of nicotine dependence
CPT/HCPCS: 51702; 71045; 80048; 81001; 82274; 82803; 83605; 84484; 85025; 85610; 85730; 86850; 86900; 86901; 86920; 86922; 87040; 93005; 96365; 96368; 96374; 96375; 99285; J7050; P9016; A4216; J0610; J3490